=== PATIENT | female | born 1990 | race Caucasian/White ===

== ENCOUNTER 2025-02-27 17:00 | Emergency (ER) | payer MEDICAID, SELFPAY ==
[2025-02-27 17:07] VITALS: BP 138/98; BP 145/88; PULSE 53; PULSE 54; RESP 12; TEMP 36.9; O2SAT 100; BMI 28.0
[2025-02-27 17:13] VITALS: BP 145/88; PULSE 53; RESP 12; TEMP 36.9; O2SAT 100
--- NOTE | 2025-02-27 17:18 | PC.NURSE ---
34 F presents to ED after fentanyl overdose, found unconscious in care by pt. EMS arrived and pt woke up, did not need to be narcanned. Pt is sleepy but wakes up to verbal stimuli, A+OX4, calm and cooperative. RR even and unlabored. denies CP or SOB.
--- NOTE | 2025-02-27 17:20 | ECG_ITS ---
Test Reason : OVERDOSE Blood Pressure : */* mmHG Vent. Rate : 51 BPM Atrial Rate : 51 BPM P-R Int : 148 ms QRS Dur : 84 ms QT Int : 460 ms P-R-T Axes : 39 61 47 degrees QTcB Int : 423 ms Sinus bradycardia Otherwise normal ECG When compared with ECG of 08-Feb-2019 21:26, Vent. rate has decreased by 25 bpm Referred By: Jimmy Mai Electronically Signed By: MARIA A SLATER
--- NOTE | 2025-02-27 17:25 | PC.NURSE ---
Pt was checked for contraband and changed over by security, belongings placed in [place].
--- NOTE | 2025-02-27 17:33 | ED_ITS ---
HPI - Overdose General Chief Complaint: Overdose Stated Complaint: OVERDOSE Time Seen by Provider: 02/27/25 17:11 History of Present Illness ED Provider: heriberto HPI Narrative: 34 female with suspected opioid overdose. She was found and had received naloxone as outpatient. Patient when I evaluate her at approximately 18:42 awake alert oriented comfortable no complaints does acknowledge using injectable opioid from the street. No fever chills headache chest pain difficulty breathing abdominal pain nausea vomiting diarrhea or any other additional symptoms Related Data Allergies Allergy/AdvReac Type Severity Reaction Status Date / Time No Known Allergies Allergy Verified 02/27/25 17:11 [facility] Social History Social History Smoked in Last 30 Days: No Use of substances other than those prescribed or required for medical reasons: No Substance Use Type Other:: Fentanyl Substance Use Frequency: Daily Last Used Substance: Hours (ago) Any prior treatment program specific to substance use: No Advance Directives: No Advance Directives Information Provided: Yes Do you have a plan to hurt others: No Plan Patient : No Physical Exam 2 Exam: Exam: EXAM: Gen: Alert, awake, well appearing, well hydrated. Head: Atraumatic Eyes: Anicteric, Normal conjunctiva. ENT: Moist mucosa, no pallor. ? Neck: Supple. Skin: ?Warm skin with scarring Respiratory: Respiratory rate 18 Breathing comfortably, No distress.Clear to auscultation bilaterally, symmetric chest expansion, No wheeze, rales, ronchi. Cardiovascular: Regular rate and rhythm. No murmurs or rub. Well perfused periphery, warm extremities. No edema. ? Abdominal: No focal tenderness. Soft, no objective distension. No palpable masses or obvious organomegaly. ?No guarding, no rebound tenderness or other peritoneal findings. : No flank tenderness. Neuro: Alert. Gross movement of all extremities intact. ? Psych: Calm. Cooperative. MSK: No grossly visible deformity. Vital signs: See flowsheet Vital Signs: Vital Signs: Last Vital Signs Temp 98.2 F 02/27/25 19:24 Pulse 67 02/27/25 19:24 Resp 16 02/27/25 19:24 BP 96/64 02/27/25 19:24 Pulse Ox 97 02/27/25 19:24 O2 Del Method Room Air 02/27/25 19:24 BMI result Body Mass Index 28.0 Medical Decision Making Medical Decision Making MDM Narrative: Medical Decision Makin-year-old female with fentanyl overdose. Found unconscious but no evidence of trauma. No witnessed injuries fall syncope. It was not reported to me directly nor in triage note if naloxone was administered the patient was monitored however for several hours. No hypoxia no crackles in the lung no complaints of injury or pain. Comprehensive exam without findings to suggest injury. Patient provided naloxone offered substance use counseling patient desired to go home Preliminary Favored Differential Diagnosis: Opioid overdose, polysubstance use disorder, electrolyte derangement, less likely injury or syncope among additional considered etiologies Testing Interpreted Independently: ?See below for details Radiology or Lab testing Results Reviewed: ?See below for details Consults: ?See below for details Independent Historians/External Chart Reviews: ?See below for details Social Determinants of Health Impacting MDM/Planning: ?See below for details Lab Data MDM Lab Attestation statement: I reviewed the patient's lab results. 02/27/25 18:34 02/27/25 18:34 Labs: Lab Results 02/27/25 Range/Units 18:34 WBC 7.0 (4.8-10.8) X10*3/uL RBC 4.40 (4.20-5.50) X10*6/uL Hgb 11.4 L (12.0-16.0) g/dl Hct 33.6 L (37.0-47.0) % MCV 76.4 L (80.0-98.0) fL MCH 25.9 L (27.0-33.0) pg MCHC 33.9 (31.0-35.0) g/dl RDW 14.7 (11.0-16.0) % Plt Count 217 (160-400) X10*3/uL MPV 11.4 (9.4-12.3) fL Immature Gran % (Auto) 0.3 (0.0-0.4) % Neut % (Auto) 62.0 (45-73) % Lymph % (Auto) 30.7 (20-40) % [place] % (Auto) 4.6 (2-11) % Eos % (Auto) 1.7 (0-4) % Baso % (Auto) 0.7 (0-2) % Lymph # (Auto) 2.2 (1.2-4.9) X10*3/uL [place] # (Auto) 0.3 (0.1-1.2) X10*3/uL Eos # (Auto) 0.1 (0.0-0.4) X10*3/uL Baso # (Auto) 0.1 (0.0-0.2) X10*3/uL Abs Immat Gran (auto) 0.02 (0.00-0.03) X10*3/uL Absolute Neuts (auto) 4.4 (2.0-8.3) x10*3/uL Absolute Nucleated RBC 0.000 (0.0-0.012) X10*3/uL Nucleated RBC % (auto) 0.0 (0.0-0.2) /100WBC Sodium 138 (135-145) mmol/L Potassium 4.1 (3.3-5.1) mmol/L Chloride 106 (96-108) mmol/L Carbon Dioxide 22 (22-29) mmol/L Anion Gap 14 (12-20) BUN 12 (9-16) mg/dL Creatinine 0.76 (0.5-1.4) mg/dL Estim Creat Clear Calc 97.2 Estimated GFR > 60 Random Glucose 117 H (60-115) mg/dL Calcium 9.1 (8.4-10.2) mg/dL Total Bilirubin 0.3 (0.0-1.0) mg/dL AST 21 (5-31) U/L ALT 17 (0-31) U/L Alkaline Phosphatase 68 (39-117) U/L Total Protein 7.4 (6.5-8.0) g/dL Albumin 4.3 (3.5-5.0) g/dL Urine Opiates Screen POSITIVE H (Not Detect) Ur Buprenorphine Scrn Not Detected (Not Detect) ng/mL Ur Oxycodone Screen Not Detected (Not Detect) ng/mL Urine Methadone Screen Positive H (Not Detect) ng/mL Urine Fentanyl Screen POSITIVE H (Not Detect) Ur Barbiturates Screen Not Detected (Not Detect) Ur Phencyclidine Scrn Not Detected (Not Detect) Ur Amphetamines Screen POSITIVE H (Not Detect) U Benzodiazepines Scrn POSITIVE H (Not Detect) Urine Cocaine Screen POSITIVE H (Not Detect) U Marijuana (THC) Screen Not Detected (Not Detect) Independent Interpretation I performed an independent interpretation of an: EKG (Sinus bradycardia rate 51 QTC 423. No ischemic changes) Discharge Plan Discharge Clinical Impression: Drug overdose Patient Disposition: Home, Self-Care Instructions: Adult Overdose (ED) Additional Instructions: _ DISCHARGE DIAGNOSES: Opioid overdose HISTORY OF PRESENTATION: ?Opiate overdose EMERGENCY DEPARTMENT COURSE,TESTS, TREATMENTS: While in the ED today you were monitored in the emergency department and we are given naloxone DISCHARGE MEDICATIONS: As needed naloxone nasally FOLLOW-UP: ?Call your primary or general physician soon as possible to discuss your symptoms, your ED visit and to discuss follow up plans INSTRUCTIONS ?& RETURN PRECAUTIONS: If any symptoms change first call your primary physician, if it is after-hours your primary doctors office should have a provider communications designer you can speak with. If the symptoms are severe or very concerning to you then call 911 or return to the ED. Jimmy Mai MD Emergency Physician [facility] Referrals: [facility] [Provider Group] Interventions: ED Discharge Assessment Last Done: 02/27/25 19:24 Discharge Date/Time: 02/27/25 19:25 Print Language: Mongolian
[2025-02-27 17:41] VITALS: BP 133/74; PULSE 77; RESP 15; TEMP 36.9; O2SAT 100
[2025-02-27 18:00] VITALS: BP 125/85; PULSE 62; RESP 20; TEMP 36.8; O2SAT 100
[2025-02-27 18:37] LABS: MANUAL DIFF FLAG NO
[2025-02-27 18:39] LABS: Hematocrit 33.6 % (37.0-47.0); Hemoglobin 11.4 g/dl (12.0-16.0); Imm Gran Abs Auto 0.02 X10*3/uL (0.00-0.03); Imm Gran Pct Auto 0.3 % (0.0-0.4); Lymphocytes Absolute Auto 2.2 X10*3/uL (1.2-4.9); Mean Corpuscular HGB Conc 33.9 g/dl (31.0-35.0); Mean Corpuscular Hemoglobin 25.9 pg (27.0-33.0); Mean Corpuscular Volume 76.4 fL (80.0-98.0); NRBC Abs Auto 0.000 X10*3/uL (0.0-0.012); NRBC Pct Auto 0.0 /100WBC (0.0-0.2); Platelet Count 217 X10*3/uL (160-400); Red Blood Count 4.40 X10*6/uL (4.20-5.50); White Blood Count 7.0 X10*3/uL (4.8-10.8)
[2025-02-27 18:50] LABS: Cannabinoid Screen Urine Not Detected (Not Detect)
[2025-02-27 18:51] LABS: Alanine Aminotransferase 17 U/L (0-31); Albumin Level 4.3 g/dL (3.5-5.0); Alkaline Phosphatase 68 U/L (39-117); Anion Gap 14 (12-20); Aspartate Amino Transferase 21 U/L (5-31); Blood Urea Nitrogen 12 mg/dL (9-16); Calcium 9.1 mg/dL (8.4-10.2); Carbon Dioxide 22 mmol/L (22-29); Chloride 106 mmol/L (96-108); Creatinine Clr Calc Pharmacy 97.2; Estimated Glomerular Filt Rate > 60; Potassium 4.1 mmol/L (3.3-5.1); Sodium 138 mmol/L (135-145); Total Protein 7.4 g/dL (6.5-8.0)
[2025-02-27 19:23] VITALS: BP 96/64; PULSE 67; RESP 16; TEMP 36.8; O2SAT 97
[2025-02-27 19:24] VITALS: BP 96/64; PULSE 67; RESP 16; TEMP 36.8; O2SAT 97
== END 2025-02-27 19:25 | disposition home or self-care (01) ==
PROVIDERS: Emergency Provider Emergency Medicine
DX: T40.601A Poisoning by unspecified narcotics, accidental (unintentional), initial encounter (principal); R00.1 Bradycardia, unspecified; Y92.9 Unspecified place or not applicable; Z51.81 Encounter for therapeutic drug level monitoring; Z79.899 Other long term (current) drug therapy
CPT/HCPCS: 36415; 80053; 80307; 85025; 93005; 99284; 99285

== ENCOUNTER → 2025-02-27 17:20 | Outpatient (BNV) | payer MEDICAID, SELFPAY | PROVIDERS: Emergency Provider Emergency Medicine; Visit Provider Internal Medicine | DX: R00.1 Bradycardia, unspecified (principal) | CPT/HCPCS: 93010 ==

== ENCOUNTER 2025-04-02 12:53 | Inpatient (IN) | payer MEDICAID, SELFPAY ==
--- NOTE | ~2025-04-02 | XR_ITS ---
CLINICAL HISTORY: chest pain 1 view chest x-ray Comparison: None provided Findings: The lungs are clear. Heart size is normal. No acute fracture. IMPRESSION: 1. No acute findings. This document has been electronically signed by: Rodríguez Justice MD on 04/02/2025 18:40:40
--- NOTE | ~2025-04-02 | CT_ITS ---
CLINICAL HISTORY: swelling, ivdu, MRSA+ sepsis blood CT left forearm with contrast Comparison: CT - CT HAND LT W IV CON - 04/06/25 10:47 EDT Findings: No fracture or dislocation. No cortical destruction or periostitis to indicate osteomyelitis. No osseous lesion. The joint spaces are preserved without osteophytosis. There is no joint effusion. There is a partially visualized rim enhancing fluid collection in the antecubital fossa measuring 3.4 x 3.3 cm. There is skin thickening in infiltration of the subcutaneous fat with fluid tracking along the fascial planes. Rim enhancing fluid collections of the dorsal aspect of the wrist are again seen. No soft tissue gas. The musculature is edematous. No muscular atrophy. Unremarkable vasculature. Impression: No CT evidence of osteomyelitis. Partially visualized abscess in the antecubital fossa measuring 3.4 cm. Redemonstrated rim enhancing fluid collections of the dorsal aspect of the wrist favored to be bacterial tenosynovitis. This document has been electronically signed by: Jennifer Landin MD on 04/06/2025 14:06:59
--- NOTE | ~2025-04-02 | CT_ITS ---
CLINICAL HISTORY: swelling, ivdu, MRSA+ sepsis blood CT right upper arm with contrast Comparison: None available Findings: No fracture or dislocation. No cortical destruction or periostitis to indicate osteomyelitis. No osseous lesion. The joint spaces are preserved without osteophytosis. There is no joint effusion. The musculature is edematous. In the biceps brachii muscle there is question a rim enhancing low attenuating lesion measuring 1.7 x 2.9 x 8.5 cm ( series 35 images 50 through 67). The surrounding musculature is markedly decreased in attenuation ( measuring 11 Hounsfield units versus 54 Hounsfield units at the triceps muscle. There is skin thickening and infiltration of the subcutaneous fat with fluid tracking along the fascial planes. Normal vasculature. Associated lymphadenopathy, partially visualized. Impression: Phlegmon/developing abscess within the biceps muscle measuring 2.9 cm. Focal necrosis may also be considered; there is marked decreased attenuation of the biceps musculature which could be secondary to severe myositis or fasciitis with necrosis. No soft tissue gas. Further evaluation with MR of the humerus with and without contrast may be helpful. No CT evidence of osteomyelitis. This document has been electronically signed by: Jennifer Landin MD on 04/06/2025 14:18:43
--- NOTE | ~2025-04-02 | XR_ITS ---
EXAMINATION: XR ELBOW, RIGHT CLINICAL INFORMATION: pain, decreased ROM COMPARISON: None available. TECHNIQUE: AP and lateral views of the right elbow. FINDINGS: No acute cortical disruption. Normal alignment. No lytic or blastic lesions. No subcutaneous emphysema. No gross joint effusion. No metallic or radiopaque foreign body. XR/XR elbow RT 2V IMPRESSION: No acute fracture or dislocation. Electronically signed by: Mak Hale MD 04/02/2025 03:01 PM EDT
--- NOTE | ~2025-04-02 | CT_ITS ---
CLINICAL HISTORY: Necrotising fascitis rule out --- Additional Notes or Special Instructions: Scan shoulder to hand CT angiography right upper extremity contrast. 3D Postprocessing. Comparison: None provided Findings: Visualized right subclavian, axillary, brachial and proximal radioulnar arteries are patent. Distal forearm and hand arteries are not well visualized secondary to streak artifact Right axillary lymphadenopathy, likely reactive. Subpleural 9 mm pulmonary nodule in the medial right apex. 2 mm subpleural nodule right middle lobe. 6 mm nodule subpleural right lower lobe. Consider CT at 3 months, PET-CT, or tissue sampling. Hepatic steatosis noted. The bones are intact. Extensively diffuse skin thickening with subcutaneous edema and fluid reticulation and stranding tracking throughout the upper extremity pronounced of the elbow. There is diffuse intramuscular edema throughout the upper extremity as well. Intramuscular edema along the pectoralis major. There is a more discrete circumferential developing fluid collection along the anterior shoulder given morphology, difficult to measure however for example along the posterolateral aspect measuring 1.5 cm axial image 21 of series 7. Developing abscess is suspected. No soft tissue gas identified. IMPRESSION: 1. Right upper extremity runoff within the visualized arteries. 2. Extensive myositis, cellulitis and developing ill-defined abscess of the level of the shoulder, please see above. 3. Reactive right axillary adenopathy. 4. No evidence of necrotizing fasciitis at this time. 5. Right-sided pulmonary nodules, please see above. This document has been electronically signed by: Rodríguez Justice MD on 04/02/2025 21:38:11
--- NOTE | ~2025-04-02 | CT_ITS ---
CLINICAL HISTORY: swelling, ivdu, MRSA+ sepsis blood CT left hand with contrast Comparison: None available Findings: No fracture or dislocation. No cortical destruction or periostitis to indicate osteomyelitis. No osseous lesion. The joint spaces are preserved without osteophytosis. There is no joint effusion. There are 2 adjacent rim enhancing fluid collections measuring 0.6 x 0.5 x 1.7 cm ( series 14, image 170 and series 13, image 49 ) and measuring 0.6 x 0.4 x 1.3 cm ( series 14, image 176 and series 13, image 40 ) at the dorsal /ulnar aspectof the wrist which appear to be in continuity with the extensor tendons. There is skin thickening and infiltration of the subcutaneous fat. No muscular atrophy. There is edema within the musculature. Unremarkable vasculature. Impression: No CT evidence of osteomyelitis. Rim enhancing fluid collections measuring 1.7 and 1.3 cm of the dorsal/ulnar aspect of the wrist which appear to be in continuity with the extensor tendons. This is concerning for infectious extensor tenosynovitis. This can be further evaluated with MR with and without contrast. This document has been electronically signed by: Jennifer Landin MD on 04/06/2025 13:53:50
--- NOTE | ~2025-04-02 | CT_ITS ---
CLINICAL HISTORY: swelling, ivdu, MRSA+ sepsis blood - postop I D CT right shoulder with contrast Comparison: CT/SR - CT ANGIO UE RT - 04/02/25 20:11 EDT Findings: No fracture or dislocation. No cortical destruction or periostitis to indicate osteomyelitis. No osseous lesion. The joint spaces are preserved without osteophytosis. There is no joint effusion. There is no fluid collection. The musculature is edematous. No muscular atrophy. Unremarkable vasculature. There is skin thickening and infiltration of the subcutaneous fat which is slightly which is similar to the prior studies. Fluid tracks along the fascial planes, greater than on the prior study, currently measuring up to 1.6 cm in thickness and previously measuring up to 0.8 cm in thickness. There is no soft tissue gas. Associated lymphadenopathy measures up to 1.7 cm in short axis, previously 1.5 cm. Right upper lobe nodule measuring 1.0 cm, Previously 0.9 cm. Impression: No CT evidence of osteomyelitis or septic arthritis. No drainable fluid collection. Cellulitis, myositis and fasciitis. Fluid tracking along the fascial planes is greater than on the prior study and may indicate worsening. No soft tissue gas to indicate necrotizing fasciitis. Associated lymphadenopathy, greater than on the prior study. 1.0 cm nodule in the right upper lobe. Given the history consider septic emboli. This document has been electronically signed by: Jennifer Landin MD on 04/06/2025 13:47:06
[2025-04-02 13:06] VITALS: BP 146/77; PULSE 104; RESP 16; TEMP 36.8; O2SAT 100; BMI 25.3
--- NOTE | 2025-04-02 13:44 | ED.EXTPRO ---
HPI - Extremity Problem General Chief complaint: Extremity Injury, Upper Stated complaint: arm pain, swelling after injection Time Seen by Provider: 04/02/25 17:00 Source: patient Mode of arrival: ambulatory Limitations: no limitations History of Present Illness ED Provider: Dr. Damian [facility] Narrative: This is a 34-year-old female history of IV drug use cocaine, opioid dependency on methadone presented hospital today for right upper extremity pain. Patient stated that this has been going on for the past 3 days. Patient's injected cocaine into her right arm and this occurred shortly afterward. Patient stated she did get blood return when she inject her cook This has been increasingly swollen. It is tender to the touch. She does have jump drainage in the AC area. Denies any fever. Patient states his pain radiates to her shoulder and into her chest. Related Data Allergies Allergy/AdvReac Type Severity Reaction Status Date / Time No Known Allergies Allergy Verified 04/02/25 13:13 Review of Systems Review of Systems: Pertinent review of systems as mentioned in HPI. All other system otherwise negative. [facility] Past Medical History [facility] Narrative: Medical history as mentioned in [facility] Social History Social History Smoked in Last 30 Days: Yes Use of substances other than those prescribed or required for medical reasons: Yes Substance Use Type: Crack/Cocaine, Heroin and Marijuana Advance Directives: No Advance Directives Information Provided: No Do you have a plan to hurt others: No Plan Patient : No Physical Exam Exam: Exam: General: Pleasant, no distress, interacting appropriately Head: Normacephalic, atraumatic ENT: oral mucosa moist, neck supple, no tracheal deviation Cardiovascular: Tachycardic rate, regular rhythm, no murmurs, rubbing, gallops Respiratory: CTAB, no wheeze, rales, rhonchi Gastrointestinal: Soft, non distended, non tender, non guarding Extremities: Patient does have swelling of the right arm diffusely, unable to flex or extend her right elbow, patient unable to move her right shoulder due to the swelling and pain. Does have drainage of the AC. I was able to obtain he arterial pulse via ultrasound Doppler. I do not think she has ischemic of the right extremity She does have drainage on the right medial AC Neurological: Awake and alert, no facial droop noted Skin: Warm and dry Psychiatric: Appropriate mood and thoughts Vital Signs: Vital Signs: Last Vital Signs Temp 98.9 F 04/02/25 20:10 Pulse 104 H 04/02/25 20:35 Resp 20 04/02/25 20:35 BP 146/96 H 04/02/25 20:35 Pulse Ox 100 04/02/25 20:35 O2 Del Method Room Air 04/02/25 20:35 BMI result Body Mass Index 25.3 Course Course Course Narrative: This is an RME: Additional HPI, ROS, PE not included below will be deferred to primary provider. RME assessment and note performed by: Mayra Turpin PA-C This is a 34-year-old female, hx of IVDA on methadone, who presents emergency department with concerns of right arm pain. HX of IVDA, injected cocaine in her right upper arm. Right upper arm very indurated, warm. Difficulty with ROM of the right elbow. No fevers. Pt tearful. Notified charge nurse of patient. Will obtain labs, further ER eval needed Medications Administered Generic Name Dose Route Start Last Admin Trade Name Freq PRN Reason Stop Dose Admin Lactated Ringer's 1,000 mls @ 999 mls/hr 04/02/25 22:30 04/02/25 22:39 Lr IV 04/02/25 23:30 999 mls/hr .Q1H1M HANNAH Administration Discontinued Medications Generic Name Dose Route Start Last Admin Trade Name Freq PRN Reason Stop Dose Admin Sodium Chloride 1,000 mls @ 999 mls/hr 04/02/25 17:15 04/02/25 20:09 Ns IV 04/02/25 18:15 Infused .Q1H1M HANNAH Infusion Vancomycin HCl 1,500 mg/ 500 mls @ 333.333 mls/hr 04/02/25 17:41 04/02/25 20:09 Sodium Chloride IV 04/02/25 19:10 Infused ONCE ONE Infusion Piperacillin Sod/Tazobactam 100 mls @ 200 mls/hr 04/02/25 17:42 04/02/25 18:30 Sod 4.5 gm/ Sodium Chloride IV 04/02/25 18:11 Infused ONCE ONE Infusion Iohexol 100 ml 04/02/25 20:24 04/02/25 20:24 Iohexol 350 Mg/Ml 100 Ml Infus..Btl IV 04/02/25 20:25 85 ml ONCE ONE Administration Ketorolac Tromethamine 15 mg 04/02/25 17:15 04/02/25 17:59 Ketorolac Tromethamine 15 Mg/Ml Vial IVPUSH 04/02/25 17:16 15 mg ONCE ONE Administration Morphine Sulfate 4 mg 04/02/25 17:15 04/02/25 17:59 Morphine Sulfate 4 Mg/Ml Cartridge IVPUSH 04/02/25 17:16 4 mg ONCE ONE Administration Protocol Medical Decision Making Medical Decision Making [facility] Narrative: 34-year-old female history of IV drug use via cocaine, opioid dependency on methadone presented hospital today for a right upper extremity swelling and pain. Concern for cellulitis. I did perform a bedside ultrasound did not identify any pockets of pus for drainage. No sign of pus of right elbow. I have no concern for ischemic right upper extremity for the patient however we will plan to obtain a CT imaging to rule out necrotizing fasciitis. Sepsis lab work will be obtained including CBC blood culture chemistry. Lactic acid. We will plan to cover patient with broad-spectrum antibiotic including the IV vancomycin IV Zosyn. Patient's lab work did not show any signs of leukocytosis however she does have 41% bands. Sepsis was called for the patient. I did initiate broad-spectrum antibiotic already for the patient. Patient did have slight elevation of lactic acid at 2.7. Repeat one is 1.8. Patient's CT imaging shows extensive myositis and cellulitis. And possible developing abscess. No sign of necrotizing fasciitis. We will plan to admit the patient for this at this time. She will require closer monitoring. She had signs of sepsis at this time as well. She will require IV antibiotic. Differential Diagnosis Differential Diagnoses: The differential diagnosis associated with the presentation includes Cellulitis, abscess, septic joint, necrotizing fasciitis Lab Data [facility] Lab Attestation statement: I reviewed the patient's lab results. 04/02/25 17:50 04/02/25 17:50 Labs: Lab Results 04/02/25 04/02/25 Range/Units 17:50 20:34 WBC 5.4 (4.8-10.8) X10*3/uL RBC 4.76 (4.20-5.50) X10*6/uL Hgb 12.0 (12.0-16.0) g/dl Hct 35.4 L (37.0-47.0) % MCV 74.4 L (80.0-98.0) fL MCH 25.2 L (27.0-33.0) pg MCHC 33.9 (31.0-35.0) g/dl RDW 14.7 (11.0-16.0) % Plt Count 296 D (160-400) X10*3/uL MPV 10.9 (9.4-12.3) fL Immature Gran % (Auto) Cancelled Neut % (Auto) Cancelled Lymph % (Auto) Cancelled [place] % (Auto) Cancelled Eos % (Auto) Cancelled Baso % (Auto) Cancelled Lymph # (Auto) Cancelled [place] # (Auto) Cancelled Eos # (Auto) Cancelled Baso # (Auto) Cancelled Abs Immat Gran (auto) Cancelled Absolute Neuts (auto) Cancelled Absolute Nucleated RBC 0.000 (0.0-0.012) X10*3/uL Nucleated RBC % (auto) 0.0 (0.0-0.2) /100WBC Neutrophils % (Manual) 24 L (45-73) % Band Neutrophils % 41 H (3-5) % Lymphocytes % (Manual) 20 (20-40) % Atypical Lymphs % (Man) 2 (0-6) % Monocytes % (Manual) 11 (2-11) % Eosinophils % (Manual) 2 (0-4) % Abs Neuts (Manual) 3.5 (2.0-8.3) X10*3/uL Lymphocytes # (Manual) 1.1 L (1.2-4.9) X10*3/uL Atyp Lymphs # (Manual) 0.1 x10*3/uL Monocytes # (Manual) 0.6 (0.1-1.2) X10*3/uL Eosinophils # (Manual) 0.1 (0.0-0.4) X10*3/uL [place] Cells PRESENT Toxic Vacuolation PRESENT Platelet Estimate NORMAL (NORMAL) Large Platelets PRESENT Plt Morphology Comment NORMAL RBC Morphology NOTED Microcytosis 1+ (5-14) /OIF [place] Cells 2+ (3-5) /OIF Schistocytes 1+ (0-2) /OIF ESR 69 H (0-20) MM/HR Sodium 132 L (135-145) mmol/L Potassium 3.3 (3.3-5.1) mmol/L Chloride 98 (96-108) mmol/L Carbon Dioxide 23 (22-29) mmol/L Anion Gap 14 (12-20) BUN 20 H (9-16) mg/dL Creatinine 0.93 (0.5-1.4) mg/dL Estim Creat Clear Calc 75.7 Estimated GFR > 60 Random Glucose 107 (60-115) mg/dL Lactic Acid 2.7 H* (0.5-2.0) mmol/L Lactic Acid F/U @ 2Hr 1.8 (0.5-2.0) mmol/L Calcium 9.6 (8.4-10.2) mg/dL Magnesium 1.9 (1.6-2.6) mg/dL Total Bilirubin 0.4 (0.0-1.0) mg/dL Direct Bilirubin 0.2 (0.0-0.5) mg/dL AST 19 (5-31) U/L ALT 13 (0-31) U/L Alkaline Phosphatase 81 (39-117) U/L C-Reactive Protein 46.98 H (< or = 0.50) mg/dL Total Protein 7.1 (6.5-8.0) g/dL Albumin 3.8 (3.5-5.0) g/dL Beta HCG, Quant < 2 mIU/mL Independent Interpretation I performed an independent interpretation of an: Plain X-Ray and CT Scan Radiology Impression Discussion of test interpretation with radiology: I have reviewed the radiologist's reading. Critical Care Time Critical Care Time Critical Care Time: Yes Total Critical Care Time: 40 Attestation: Time is exclusive of separately billable procedures. Time includes: direct patient care, patient reassessment, coordination of patient care, interpretation of data (laboratory data, pulse oximetry, arterial blood gases and chest xrays), review of patient's medical records, medical consultation and documentation of patient care. Procedures excluded from critical care time: central intravenous line placement and electrocardiography. Discharge Plan Discharge Clinical Impression: Cellulitis, Myositis, Sepsis Patient Disposition: Admitted As Inpatient Print Language: Citizen Of [place]
--- NOTE | 2025-04-02 17:39 | PC.NURSE ---
Pt very hard IV stick. Ultrasound IV attempts being made now.
[2025-04-02 18:04] LABS: Hematocrit 35.4 % (37.0-47.0); Hemoglobin 12.0 g/dl (12.0-16.0); Mean Corpuscular HGB Conc 33.9 g/dl (31.0-35.0); Mean Corpuscular Hemoglobin 25.2 pg (27.0-33.0); Mean Corpuscular Volume 74.4 fL (80.0-98.0); NRBC Abs Auto 0.000 X10*3/uL (0.0-0.012); NRBC Pct Auto 0.0 /100WBC (0.0-0.2); Platelet Count 296 X10*3/uL (160-400); Red Blood Count 4.76 X10*6/uL (4.20-5.50)
[2025-04-02 18:19] VITALS: BP 150/84; PULSE 105; RESP 18; TEMP 37.2; O2SAT 98
[2025-04-02 18:19] LABS: Alanine Aminotransferase 13 U/L (0-31); Albumin Level 3.8 g/dL (3.5-5.0); Alkaline Phosphatase 81 U/L (39-117); Anion Gap 14 (12-20); Aspartate Amino Transferase 19 U/L (5-31); Blood Urea Nitrogen 20 mg/dL (9-16); Calcium 9.6 mg/dL (8.4-10.2); Carbon Dioxide 23 mmol/L (22-29); Chloride 98 mmol/L (96-108); Creatinine Clr Calc Pharmacy 75.7; Estimated Glomerular Filt Rate > 60; Magnesium 1.9 mg/dL (1.6-2.6); Potassium 3.3 mmol/L (3.3-5.1); Sodium 132 mmol/L (135-145); Total Protein 7.1 g/dL (6.5-8.0)
[2025-04-02 18:41] LABS: WBC ABN SCTR FOR CBC 1
[2025-04-02 18:54] LABS: Neutrophils Percent Manual 24 % (45-73)
[2025-04-02 18:57] LABS: Atypical Lymphs Percent Manual 2 % (0-6); Band Neutrophils Percent 41 % (3-5); Eosinophils Percent Manual 2 % (0-4); Lymphocytes Percent Manual 20 % (20-40); Monocytes Percent Manual 11 % (2-11)
[2025-04-02 18:58] LABS: Large Platelet PRESENT; Microcytosis 1+ (5-14) /OIF; RBC Morphology NOTED
[2025-04-02 18:59] LABS: Burr Cells 2+ (3-5) /OIF; Schistocytes 1+ (0-2) /OIF; Smudge Cells PRESENT; Toxic Vacuolation PRESENT
[2025-04-02 19:00] LABS: Atypical Lymph Absolute Manual 0.1 x10*3/uL; Eosinophils Absolute Manual 0.1 X10*3/uL (0.0-0.4); Lymphocytes Absolute Manual 1.1 X10*3/uL (1.2-4.9); Monocytes Absolute Manual 0.6 X10*3/uL (0.1-1.2); Neutrophils Absolute Manual 3.5 X10*3/uL (2.0-8.3); White Blood Count 5.4 X10*3/uL (4.8-10.8)
--- NOTE | 2025-04-02 19:00 | PC.NURSE ---
Assumed care of pt presents with right arm swelling after IV drug use, pt aaox4, nad, pending admission and CT scan
[2025-04-02 19:57] LABS: Reflex Lactate? Lactic Acid Added
[2025-04-02 20:10] VITALS: BP 149/92; PULSE 101; RESP 18; TEMP 37.2; O2SAT 98
[2025-04-02] MEDS: iohexoL 350 MG/ML 100 ML INFUS..BTL IV (20:24)
[2025-04-02 20:35] VITALS: BP 146/96; PULSE 104; RESP 20; O2SAT 100
[2025-04-02 20:56] LABS: ~Lactic Acid-LAB USE ONLY 1.8 mmol/L (0.5-2.0)
[2025-04-02] MEDS: Lactated Ringers 1,000 ML 999 ML IV (22:39)
--- NOTE | 2025-04-02 23:05 | P.HPHOSP_ITS ---
History of Present Illness Date of Service: 04/02/25 Attending physician on admission: Leila Cruz Chief Complaint: Right arm infection Pt is a 34 yo female with PMH IVDA last 15 years with family hx (mother, father and twin sister passed from endocarditis), overdose 2 years prior received narcan (no cardiac or respiratory arrest), UTE on methadone, tobacco dependence, , xylozene infection L forearm, depression/ anxiety uses xanax and clonidine off the street presents to the hospital after being prompted by her BF to be seen for noted enlargement in right upper arm, with redness and pt now not able to lift or move arm. Pt states she last injected cocaine yesterday. Pt denies any current chills, fever, but is having significant heartburn. Pt states she needs help with her drug use. Pt states she is scared. Patient currently denies any SI, HI or hallucinations. Patient currently denies any marijuana use or alcohol use. Work up in the ED included XR of left elbow, negative for dislocaiton or fracture and CTA of RUE that notes: 1. Right upper extremity runoff within the visualized arteries. 2. Extensive myositis, cellulitis and developing ill-defined abscess of the level of the shoulder, please see above. 3. Reactive right axillary adenopathy. 4. No evidence of necrotizing fasciitis at this time. Patient does meet the criteria for sepsis on admission tachycardia, lactic acidosis, bandemia with leukocytosis. CXR negative for acute findings. Pt started on Vanco and Zosyn and received fluid resuscitation per sepsis protocol at 30 mls/KG. Pain management continues with toradol, morphine and tylenol prn. Patient did take her normal methadone dose earlier in the day. Patient receives her methadone from [facility]. Review of Systems 2 Review of Systems: Patient currently denies any chest pain, shortness of breath at rest or with exertion. Patient is reporting significant heartburn. Patient denies any nausea or vomiting. Patient is not having any abdominal pain. Patient denies injecting medications or drugs into any other area except for the right AC. Patient currently denies any SI, HI or hallucinations. [facility] Medical History Toxic effect of xylazine History of drug overdose Depression Anxiety IV drug abuse Substance use disorder Cognitive capacity: Alert and orientated x3 Functional capacity: independent ambulation Patient : No (HCT in less than 2) Pertinent family history: Mother and father both alive with history of substance use disorder and IV drug abuse. Father currently uses. Patient lost twin sister to endocarditis secondary to IV drug abuse. Surgical History History of tonsillectomy and adenoidectomy Hx of section Social History Substance Use Type: Crack/Cocaine, Heroin and Marijuana Ebola Risk: Travel/Contact With Anyone From Affected Area/s: No Has Patient Experienced Ebola Symptoms: No Meds Allergies Allergy/AdvReac Type Severity Reaction Status Date / Time No Known Allergies Allergy Verified 04/02/25 13:13 Active Medications: Current Medications Acetaminophen (Acetaminophen 325 Mg Tablet) 650 mg PO Q6H PRN PRN Reason: Pain, Mild 1-3,fever,headache Albuterol/Ipratropium (Albuterol/Iprat 2.5/0.5mg 3 Ml Ampul.Neb) 3 ml INHALE Q4H PRN PRN Reason: Shortness of Breath/Wheezing Calcium Carbonate (Calcium Carbonate 750 Mg Tab.Chew) 750 mg PO Q4H PRN PRN Reason: Heartburn Enoxaparin Sodium (Enoxaparin Sodium 40 Mg/0.4 Ml Syringe) 40 mg SUBCUT Q24H [facility] Lactated Ringer's (Lr) 1,000 mls @ 999 mls/hr IV .Q1H1M [facility] Stop: 04/02/25 23:30 Last Admin: 04/02/25 22:39 Dose: 999 mls/hr Lactated Ringer's (Lr) 1,000 mls @ 100 mls/hr IVCONT .Q10H [facility] Magnesium Hydroxide (Milk Of Magnesia 30 Ml Oral.Susp) 30 ml PO DAILY PRN PRN Reason: Constipation Melatonin (Melatonin 3 Mg Tablet) 6 mg PO BEDTIME PRN PRN Reason: Insomnia Ondansetron HCl (Ondansetron Hcl 4 Mg/2 Ml Vial) 4 mg IVPUSH Q8H PRN PRN Reason: Nausea and Vomiting Polyethylene Glycol (Polyethylene Glycol 3350 17 Gm Powd.Pack) 17 gm PO DAILY PRN PRN Reason: Constipation Sodium Chloride (0.9 % Sodium Chloride Flush 3 Ml Syringe) 3 ml IVFLUSH QSHIFT [facility] Physical Exam 2 Vital Signs and Narrative: Vital Signs: Last Vital Signs Temp 98.9 F 04/02/25 20:10 Pulse 104 H 04/02/25 20:35 Resp 20 04/02/25 20:35 BP 146/96 H 04/02/25 20:35 Pulse Ox 100 04/02/25 20:35 O2 Del Method Room Air 04/02/25 20:35 BMI result Body Mass Index 25.3 Alert and orientated X3, able to give good history. Anxious Neuro: CN II-X11 intact, visual acuity intact EYES: PERRLA, EOM intact, sclerae nonicteric, conjunctiva pink ENT: hearing intact, no issues with swallowing, uvula midline, lips moist, nares patent no epistaxis Cardiac: S1 S2 RRR tachycardic, no murmur, no JVD, no edema in Lower ext Pulmonary: lungs diminished bilaterally Abdominal: BS active in all 4 quadrants, no guarding, tenderness, rebounding MSK: strength 5/5 L upper and lower extremities, patient unable to move right upper extremity due to profound swelling that is start to the AC area up to the shoulder joint. : no CVA tenderness no bladder distension Extremities: no edema in lower extremities, PT and DP pulses palpable +2 Psych: mood anxious, judgement and insight good Skin: Notable warmth and redness with swelling from the AC of the right arm to the shoulder area. Patient has no active range of motion and can not tolerate passive range of motion. Pulses are intact in the right lower extremity as well as sensation. Results Labs 04/02/25 17:50 04/02/25 17:50 Labs: Laboratory Results - last 24 hr 04/02/25 04/02/25 17:50 20:34 MCV 74.4 L MCH 25.2 L MCHC 33.9 RDW 14.7 Plt Count 296 D MPV 10.9 Immature Gran % (Auto) Cancelled Neut % (Auto) Cancelled Lymph % (Auto) Cancelled Harney % (Auto) Cancelled Eos % (Auto) Cancelled Baso % (Auto) Cancelled Lymph # (Auto) Cancelled Harney # (Auto) Cancelled Eos # (Auto) Cancelled Baso # (Auto) Cancelled Abs Immat Gran (auto) Cancelled Absolute Neuts (auto) Cancelled Absolute Nucleated RBC 0.000 Nucleated RBC % (auto) 0.0 Neutrophils % (Manual) 24 L Band Neutrophils % 41 H Lymphocytes % (Manual) 20 Atypical Lymphs % (Man) 2 Monocytes % (Manual) 11 Eosinophils % (Manual) 2 Abs Neuts (Manual) 3.5 Lymphocytes # (Manual) 1.1 L Atyp Lymphs # (Manual) 0.1 Monocytes # (Manual) 0.6 Eosinophils # (Manual) 0.1 Smudge Cells PRESENT Toxic Vacuolation PRESENT Platelet Estimate NORMAL Large Platelets PRESENT Plt Morphology Comment NORMAL RBC Morphology NOTED Microcytosis 1+ (5-14) Glenn Cells 2+ (3-5) Schistocytes 1+ (0-2) ESR 69 H Anion Gap 14 Estim Creat Clear Calc 75.7 Estimated GFR > 60 Random Glucose 107 Lactic Acid 2.7 H* Lactic Acid F/U @ 2Hr 1.8 Calcium 9.6 Magnesium 1.9 Total Bilirubin 0.4 Direct Bilirubin 0.2 AST 19 ALT 13 Alkaline Phosphatase 81 C-Reactive Protein 46.98 H Total Protein 7.1 Albumin 3.8 Beta HCG, Quant < 2 ECG Attestation: I personally reviewed and interpreted this ECG as follows: Prior ECG tracings: not available for review Imaging Radiologist's Impressions: Impressions Elbow X-Ray 04/02/25 14:57 IMPRESSION: No acute fracture or dislocation. Electronically signed by: Mak Hale MD 04/02/2025 03:01 PM EDT RUE CTA MPRESSION: 1. Right upper extremity runoff within the visualized arteries. 2. Extensive myositis, cellulitis and developing ill-defined abscess of the level of the shoulder, please see above. 3. Reactive right axillary adenopathy. 4. No evidence of necrotizing fasciitis at this time. 5. Right-sided pulmonary nodules, please see above. CXR Findings: The lungs are clear. Heart size is normal. No acute fracture. IMPRESSION: 1. No acute findings. Assessment and Plan (1) Cellulitis: Qualifiers: Laterality: right Site of cellulitis: extremity Site of cellulitis of extremity: upper extremity Qualified Code(s): L03.113 - Cellulitis of right upper limb Status: Acute (2) Sepsis: Qualifiers: Sepsis acute organ dysfunction status: with acute organ dysfunction S epsis type: sepsis due to unspecified organism Severe sepsis acute organ dysfunction type: unspecified Severe sepsis shock status: without septic shock Qualified Code(s): A41.9 - Sepsis, unspecified organism; R65.20 - Severe sepsis without septic shock Status: Acute (3) Myositis: Qualifiers: Laterality: right Myositis location: shoulder Myositis type: infective Qualified Code(s): M60.011 - Infective myositis, right shoulder Status: Acute Plan Pt is a 34 yo female with PMH IVDA last 15 years with family hx (mother, father and twin sister passed from endocarditis), overdose 2 years prior received narcan (no cardiac or respiratory arrest), UTE on methadone, tobacco dependence, , xylozene infection L forearm, depression/ anxiety uses xanax and clonidine off the street presents to the hospital after being prompted by her BF to be seen for noted enlargement in right upper arm, with redness and pt now not able to lift or move arm. Pt states she last injected cocaine yesterday. HCG negative on admission. Sepsis secondary to cellulitis and formation of abscess internally towards the right shoulder area from IV drug abuse Patient is started on Zosyn and vanco Patient met criteria for sepsis noting bandemia 41, lactic acid 2.7 down to 1.8 after IV fluids, tachycardia ESR and CRP both elevated Patient received fluid resuscitation per protocol, 30 mL/kilogram we will continue to receive an hourly rate CT of the right upper extremity confirms cellulitis with extensive myositis and developing ill-defined abscess at the level of the shoulder with reactive right axillary adenopathy No evidence of necrotizing fasciitis on CT scan General surgery consulted Infectious disease consulted Blood cultures pending UA pending Echo pending to rule out endocarditis, low suspicion for this on admission Myositis Continue IV antibiotics as above Continue IV fluids General surgery consultation in place as patient may require surgical drainage and opening of the upper right extremity Elevating arm and applying ice as tolerated, ice will not be applied directly to the skin Neurovascular checks ordered of right upper extremity Mild hyponatremia Sodium 132 Trend BMP GERD Protonix b.i.d. Milk of magnesia Monitor H&H Patient does not use alcohol UTE Patient normally on methadone 130 mg per day, confirmation pending Patient did take her methadone today 04/02/2025 Patient requesting help for her drug use with significant family history including mother, father and twin sister who of endocarditis related to IV drug abuse Cows ordered Valium p.r.n. (patient uses street Xanax and clonidine) Addictions consulted Depression/anxiety Chronic in nature without help in the community At this time patient defers psychiatric consultation Patient denies any SI, HI or hallucinations No 1-1 indicated at this time Valium PRN DVT prophylaxis: On hold in case patient requires surgical procedure in the a.m. Med rec pending Full code status Quality Stroke Does the patient have a stroke diagnosis?: No Reason for No Anti-thrombotic by Day Two: Contraindicated VTE Prior VTE?: No VTE Risk Level:: Medical - moderate - high VTE Device Contraindication: N/A - Device Ordered VTE Drug Contraindication: N/A - Med Ordered
[2025-04-02] MEDS: Lactated Ringers 1,000 ML 100 ML IVCONT (23:55)
[2025-04-03] VITALS (18 sets, daily range): BP systolic 133–163; BP diastolic 75–105; PULSE 90–112; RESP 14–25; TEMP 36.7–37.6; O2SAT 96–99; BMI 27.8
[2025-04-03 05:36] LABS: Hematocrit 30.9 % (37.0-47.0); Hemoglobin 10.4 g/dl (12.0-16.0); Mean Corpuscular HGB Conc 33.7 g/dl (31.0-35.0); Mean Corpuscular Hemoglobin 24.9 pg (27.0-33.0); Mean Corpuscular Volume 74.1 fL (80.0-98.0); NRBC Abs Auto 0.000 X10*3/uL (0.0-0.012); NRBC Pct Auto 0.0 /100WBC (0.0-0.2); Platelet Count 270 X10*3/uL (160-400); Red Blood Count 4.17 X10*6/uL (4.20-5.50)
[2025-04-03 05:39] LABS: WBC ABN SCTR FOR CBC 1; White Blood Count 2.8 X10*3/uL (4.8-10.8)
[2025-04-03 06:04] LABS: Alanine Aminotransferase 6 U/L (0-31); Albumin Level 2.6 g/dL (3.5-5.0); Alkaline Phosphatase 65 U/L (39-117); Anion Gap 14 (12-20); Aspartate Amino Transferase 43 U/L (5-31); Blood Urea Nitrogen 12 mg/dL (9-16); Calcium 8.2 mg/dL (8.4-10.2); Carbon Dioxide 20 mmol/L (22-29); Chloride 103 mmol/L (96-108); Creatinine Clr Calc Pharmacy 111.8; Estimated Glomerular Filt Rate > 60; Potassium 4.6 mmol/L (3.3-5.1); Sodium 132 mmol/L (135-145); Total Protein 5.9 g/dL (6.5-8.0)
[2025-04-03 06:06] LABS: Atypical Lymph Absolute Manual 0.1 x10*3/uL; Atypical Lymphs Percent Manual 2 % (0-6); Band Neutrophils Percent 32 % (3-5); Basophils Percent Manual 1 % (0-2); Eosinophils Absolute Manual 0.1 X10*3/uL (0.0-0.4); Eosinophils Percent Manual 3 % (0-4); Lymphocytes Absolute Manual 0.4 X10*3/uL (1.2-4.9); Lymphocytes Percent Manual 14 % (20-40); Monocytes Absolute Manual 0.3 X10*3/uL (0.1-1.2); Monocytes Percent Manual 12 % (2-11); Neutrophils Absolute Manual 1.9 X10*3/uL (2.0-8.3); Neutrophils Percent Manual 36 % (45-73)
[2025-04-03 06:07] LABS: Large Platelet PRESENT; Ovalocytes 1+ (5-14) /OIF; RBC Morphology NOTED
[2025-04-03 06:08] LABS: Burr Cells 3+ (>5) /OIF; Toxic Vacuolation PRESENT
--- NOTE | 2025-04-03 07:00 | CA_ITS ---
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 The calculated ejection fraction is 61% by biplane method. - No obvious valvular pathology seen on this study. Findings Left Ventricle Normal left ventricular cavity size. There is normal left ventricular wall thickness. The left ventricular systolic function is normal. The calculated ejection fraction is 61% by biplane method. There is no evidence of regional wall motion abnormalities. Diastolic function is normal for age. Right Ventricle Normal right ventricular cavity size and systolic function. Atria Both atria are normal in size. Aortic Valve There is a normal trileaflet aortic valve. There is no aortic valve stenosis. There is no aortic valve regurgitation. Mitral Valve The mitral valve appears normal. There is no mitral valve regurgitation. There is no mitral valve stenosis. Pulmonic Valve The pulmonic valve is likely normal. Tricuspid Valve There is no tricuspid valve regurgitation. Tricuspid regurgitation envelope is inadequate for calculation of right ventricular systolic pressure. Great Vessels The asc aorta is normal in size. Venous The inferior vena cava is normal in size and collapses greater than 50% with inspiration. Pericardium/Pleural There is no evidence of pericardial effusion. Prior Study Comparison No prior study available for comparison. Recommendations, Care & Conclusions No obvious valvular pathology seen on this study. Measurements 2D Linear Measurements IVSd: 0.96 0.6-0.9/0.6-1.0 cm LVIDd: 4.85 3.9-5.3/4.2-5.9 cm LVIDd Index: 2.90 2.4-3.2/2.2-3.1 cm/m2 LVIDs: 2.69 2.0-3.6 cm LVPWd: 0.93 0.7-1.1 cm LA Diam: 3.50 2.7-3.8/3.0-4.0 cm LAIDs Index: 2.10 1.5-2.3 cm/m2 LV Mass: 200.35 67-162/88-224 g LV Mass Index: 119.97 43-95/49-115 g/m2 LVOT Diam: 2.10 3.0+(-)1.3 cm 2D Systolic Function EF 4C: 69.60 >55% EF 2C: 51.90 >55% EF BiP: 61.00 >55% Mitral Valve MV Pk E: 0.99 MV PK A: 0.74 MV Decel Time: 174.00 E/A: 1.30 E'Lateral: 11.60 E'Medial: 10.30 E/E' Med: 9.60 E/E' Lat: 8.50 PHT: 51.00 MVA PHT: 4.31 Decel [place]: 5.65 Aortic Valve AoV Pk Mihai: 1.48 AoV Mn Mihai: 1.05 AoV VTI: 0.23 AoV Pk Grad: 9.00 Aov Mn Grad: 5.00 ATIF Cont.VTI: 3.30 LVOT LVOT Pk Mihai: 1.42 LVOT Mn Mihai: 0.94 LVOT VTI: 0.22 LVOT Pk Grad: 8.00 LVOT Mn Grad: 4.00 LVOT Diam: 2.10 LVOT Area: 3.46 Diastolic Function MV Pk E: 0.99 MV Pk A: 0.74 E/A: 1.30 E'Medial: 10.30 E/E' Med: 9.60 E' Laterial: 11.60 E/E' Lat: 8.50 Right Ventricle TAPSE (mm): 22.60 TVS' Mihai: 17.30 Tricuspid Valve RA Press: 3.00 Great Vessels Aorta Sinus of Valsalva: 3.30 2.0-3.5 cm Ao Asc: 2.70 2.1-3.4 cm Pulmonary Veins Pulm Vein S/D 1.40 Pulmonary Valve PV Pk Mihai: 1.30 Peak PV Grad: 7.00 Updated in Other Vendor System with Status of Final Jayden Berman MD electronically signed on 04/03/2025 4:00:52 PM with status of Final
--- NOTE | 2025-04-03 07:04 | PHA.PROG ---
Admission Date/Time: April 02, 2025 22:35 Indication: SKIN INFECTION Weight in k.8 kg Adjusted body weight in Kg: [place] body weight in Kg: Obesity Dosing Indication % IBW: Serum Creatinine - Last 168 Hours 04/02/25 04/03/25 17:50 04:33 Creatinine 0.93 0.63 Estimated CrCl and GFR - Last 168 Hours 04/02/25 04/03/25 17:50 04:33 Estim Creat Clear Calc 75.7 111.8 Estimated GFR > 60 > 60 Vancomycin Loading Dose: 1500 MG Current Vancomycin Dosing Regimen: 750 MG Q8H Vancomycin Monitoring using AUC goal of 400 - 600 range with trough as surrogate marker: TAX=755 TROUGH=15.2 Date and Time for next Vancomycin Level to be drawn: 04/03/25 @1900 Pharmacist Comments on Vancomycin Plan: Vancomycin dosing will take advantage of [employer] as a clinical decision support tool that uses Bayesian modeling to calculate individual patient's pharmacokinetic parameters and forecast the patient's drug concentration time course with the target goal AUC 24 range of 400 - 600 mg/L/hr.
--- NOTE | 2025-04-03 07:10 | PC.NURSE ---
Addendum entered by Penelope Hernandez RN 04/03/25 07:36: Pt is a 34 yo female with PMH IVDA last 15 years overdose 2 years prior received narcan, UTE on methadone, tobacco dependence, , xylozene infection L forearm, depression/ anxiety uses xanax and clonidine off the street presents to the hospital after being prompted by her BF to be seen for noted enlargement in right upper arm, with redness and pt now not able to lift or move arm. Pt states she last injected cocaine yesterday. Right upper extremity runoff within the visualized arteries. 2. Extensive myositis, cellulitis and developing ill-defined abscess of the level of the shoulder 3. Reactive right axillary adenopathy. 4. No evidence of necrotizing fasciitis at this time. Patient alert and oriented but anxious. Lungs clear bilat. Respirations even and non-labored. Abdomen soft, non-tender with positive bowel sounds. Positive pedal pulses with no edema noted. Right arm extremely swollen, red, warm and tender. Positive radial pulse with good CSM noted. Original Note: Medical History Toxic effect of xylazine History of drug overdose Depression Anxiety IV drug abuse Substance use disorder
[2025-04-03 08:28] LABS: HBS Num1 74.67 mIU/mL (0-7.99); HBc Num1 0.11 S/CO (0.00-0.79); HBsAGNum1 0.31 S/CO (0.00-0.99); HIV Num 1 0.05 S/CO (0.00-0.99); Hepatitis A Antibody IgM 0.22 Index (0-0.79); Hepatitis B Surface Antigen Negative (Negative); ~HepC Num1 2.28 S/CO (0.00-0.79); ~Hepatitis A Antibody IgM Nonreactive (Nonreactive); ~Hepatitis B Surface Antibody REACTIVE (Nonreactive); ~Hepatitis C Antibody Reactive (Nonreactive)
--- NOTE | 2025-04-03 08:33 | HE.PHANOTE ---
RE: METHADONE DOSING Last dose of methadone 130 mg was given at [facility] [phone] on 04/02/25 @1146 per ANMOL Gomez.
--- NOTE | 2025-04-03 08:47 | P.CONGS_ITS ---
History of Present Illness Consult details Consult date: 04/03/25 Reason for consult: other (right arm cellulitis, possible abscess ) Requesting physician: Sue Barajas Narrative: 34-year-old female with history significant for IVDA (cocaine) and opioid dependency on methadone who presented to the ED for evaluation of right arm pain. She reports this has been going on for 3 days now. Patient reports she injected cocaine into her right arm and following this she developed pain, redness and swelling that has been worsening over the past few days. Due to the severity of pain, she came to the ED. She denies fevers, chills, nausea, vomiting. CBC, BMP, LFTs were obtained which were significant for a mild hyponatremia. She had a lactic acidosis upon presentation and elevated CRP. CTA right upper extremity was obtained which showed right upper extremity runoff within the visualized arteries, extensive myositis, cellulitis and fluid collection of the anterior shoulder with reactive right axillary adenopathy. General surgery consult was obtained for the cellulitis and abscess. She reports the pain extends from the right side of her chest all the way to her hand. She reports the swelling is worse today. She has limited mobility of the entire right arm and hand due to the pain but reports she does have sensation of the hand and denies tingling. Review of Systems 2 Review of Systems: Yes all other systems are reviewed and are negative PMFSH Past Medical History Medical History Toxic effect of xylazine History of drug overdose Depression Anxiety IV drug abuse Substance use disorder Surgical History Surgical History History of tonsillectomy and adenoidectomy Hx of section Social History Social History Smoked in Last 30 Days: Yes Use of substances other than those prescribed or required for medical reasons: Yes Substance Use Type: Crack/Cocaine, Heroin and Marijuana Advance Directives: No Advance Directives Information Provided: No Do you have a plan to hurt others: No Plan Patient : No (HCT in less than 2) Travel History Ebola Risk: Travel/Contact With Anyone From Affected Area/s: No Has Patient Experienced Ebola Symptoms: No Meds Allergies Allergy/AdvReac Type Severity Reaction Status Date / Time No Known Allergies Allergy Verified 04/02/25 13:13 Active Medications: Current Medications Acetaminophen (Acetaminophen 325 Mg Tablet) 650 mg PO Q6H PRN PRN Reason: Pain, Mild 1-3,fever,headache Last Admin: 04/03/25 06:40 Dose: 650 mg Albuterol/Ipratropium (Albuterol/Iprat 2.5/0.5mg 3 Ml Ampul.Neb) 3 ml INHALE Q4H PRN PRN Reason: Shortness of Breath/Wheezing Calcium Carbonate (Calcium Carbonate 750 Mg Tab.Chew) 750 mg PO Q4H PRN PRN Reason: Heartburn Diazepam (Diazepam 10 Mg/2 Ml Cartridge) 10 mg IVPUSH Q6H PRN PRN Reason: anxiety/restlessness Enoxaparin Sodium (Enoxaparin Sodium 40 Mg/0.4 Ml Syringe) 40 mg SUBCUT Q24H [facility] On Hold: 04/02/25 23:31 Last Admin: 04/03/25 03:44 Dose: Not Given Sodium Chloride (Ns) 1,000 mls @ 100 mls/hr IVCONT .Q10H [facility] Last Admin: 04/03/25 06:45 Dose: 100 mls/hr Vancomycin HCl 750 mg/ Sodium (Chloride) 265 mls @ 265 mls/hr IV Q8H [facility] Ketorolac Tromethamine (Ketorolac Tromethamine 15 Mg/Ml Vial) 15 mg IVPUSH Q6H PRN PRN Reason: Pain, Moderate(Pain Scale 4-6) Magnesium Hydroxide (Milk Of Magnesia 30 Ml Oral.Susp) 30 ml PO DAILY PRN PRN Reason: Constipation Melatonin (Melatonin 3 Mg Tablet) 6 mg PO BEDTIME PRN PRN Reason: Insomnia Morphine Sulfate (Morphine Sulfate 2 Mg/Ml Cartridge) 2 mg IVPUSH Q4H PRN; Protocol PRN Reason: Pain, Severe (Pain Scale 7-10) Last Admin: 04/03/25 07:35 Dose: 2 mg Nicotine Polacrilex (Nicotine Polacrilex 2 Mg Gum) 2 mg BUCCAL Q2H PRN PRN Reason: Nicotine Cravings Ondansetron HCl (Ondansetron Hcl 4 Mg/2 Ml Vial) 4 mg IVPUSH Q8H PRN PRN Reason: Nausea and Vomiting Pantoprazole Sodium (Pantoprazole Sodium 40 Mg/10 Ml Vial) 40 mg IVPUSH DAILY@0630 [facility] Last Admin: 04/03/25 07:15 Dose: 40 mg Pharmacy Consult (Consult Rx Vancomycin Dosing) 1 each MISCELLANE DAILY PRN PRN Reason: Consult order Polyethylene Glycol (Polyethylene Glycol 3350 17 Gm Powd.Pack) 17 gm PO DAILY PRN PRN Reason: Constipation Sodium Chloride (0.9 % Sodium Chloride Flush 3 Ml Syringe) 3 ml IVFLUSH [facility] Last Admin: 04/03/25 07:18 Dose: Not Given Sodium Chloride (0.9 % Sodium Chloride Flush 3 Ml Syringe) 3 ml IVFLUSH [facility] Last Admin: 04/03/25 07:19 Dose: Not Given Home Medications ?Medication ?Instructions ?Recorded ?Confirmed ?Last Taken ?Type methadone 10 mg/mL oral 130 mg PO DAILY 04/03/2508/2704/02/25 11:46 History concentrate (Methadone Intensol) Physical Exam 2 Vital Signs: Vital Signs: Last Vital Signs Temp 99.6 F 04/03/25 07:17 Pulse 112 H 04/03/25 07:17 Resp 16 04/03/25 07:17 BP 155/90 H 04/03/25 07:17 Pulse Ox 98 04/03/25 07:17 O2 Del Method Room Air 04/03/25 07:17 BMI result Body Mass Index 25.3 Const: General: lethargic Orientation/consciousness: lethargic Resp: Effort & Inspection: normal respiratory effort and able to speak in complete sentences Cardio: Rate: tachycardic Skin: Other: warm and dry as noted below in extremities Extrem: Other: right upper extremity- erythema and tense edema extending from right lateral chest through the hand- she has limited mobility due to pain but has a good palpable radial pulse and sensation of the hand; unable to appreciate any fluctuance currently due to the extensive edema, some drainage noted from AC joint Results Labs 04/03/25 04:33 04/03/25 04:33 Labs: Abnormal lab results 04/02/25 04/03/25 04/03/25 Range/Units 17:50 04:33 07:28 WBC 2.8 L (4.8-10.8) X10*3/uL RBC 4.17 L (4.20-5.50) X10*6/uL Hgb 10.4 L (12.0-16.0) g/dl Hct 35.4 L 30.9 L (37.0-47.0) % MCV 74.4 L 74.1 L (80.0-98.0) fL MCH 25.2 L 24.9 L (27.0-33.0) pg Neutrophils % (Manual) 24 L 36 L (45-73) % Band Neutrophils % 41 H 32 H (3-5) % Lymphocytes % (Manual) 14 L (20-40) % Monocytes % (Manual) 12 H (2-11) % Abs Neuts (Manual) 1.9 L (2.0-8.3) X10*3/uL Lymphocytes # (Manual) 1.1 L 0.4 L (1.2-4.9) X10*3/uL ESR 69 H (0-20) MM/HR Sodium 132 L 132 L (135-145) mmol/L Carbon Dioxide 20 L (22-29) mmol/L BUN 20 H (9-16) mg/dL Lactic Acid 2.7 H* (0.5-2.0) mmol/L Calcium 8.2 L D (8.4-10.2) mg/dL AST 43 H (5-31) U/L C-Reactive Protein 46.98 H (< or = 0.50) mg/dL Total Protein 5.9 L (6.5-8.0) g/dL Albumin 2.6 L (3.5-5.0) g/dL Hepatitis C Ab (EIA) Reactive H (Nonreactive) Short CBC 04/02/25 04/03/25 Range/Units 17:50 04:33 WBC 5.4 2.8 L (4.8-10.8) X10*3/uL Hgb 12.0 10.4 L (12.0-16.0) g/dl Hct 35.4 L 30.9 L (37.0-47.0) % Plt Count 296 D 270 (160-400) X10*3/uL BMP 04/02/25 04/03/25 17:50 04:33 Sodium 132 L 132 L Potassium 3.3 4.6 D Chloride 98 103 Carbon Dioxide 23 20 L BUN 20 H 12 Creatinine 0.93 0.63 Calcium 9.6 8.2 L D Liver Function 04/02/25 04/03/25 Range/Units 17:50 04:33 Total Bilirubin 0.4 0.4 (0.0-1.0) mg/dL Direct Bilirubin 0.2 (0.0-0.5) mg/dL AST 19 43 H (5-31) U/L ALT 13 6 (0-31) U/L Alkaline Phosphatase 81 65 (39-117) U/L Albumin 3.8 2.6 L (3.5-5.0) g/dL All other labs normal. Imaging Additional studies: CTA right upper extremity and labs reviewed Assessment and Plan (1) Cellulitis: Qualifiers: Laterality: right Site of cellulitis: extremity Site of cellulitis of extremity: upper extremity Qualified Code(s): L03.113 - Cellulitis of right upper limb Status: Acute (2) Myositis: Qualifiers: Laterality: right Myositis location: shoulder Myositis type: infective Qualified Code(s): M60.011 - Infective myositis, right shoulder Status: Acute (3) IV drug abuse: Status: Acute Plan 34-year-old female with history significant for IVDA and opioid dependency on methadone who presented with right upper extremity pain following injecting in her right arm admitted for sepsis, cellultitis and myositis of the RUE. General surgery was consulted for a possible abscess however I am unable to appreciate the fluid collection noted in the radiologist report and unable to appreciate any fluctuance on exam due to the extensive edema. Exam is also limited due to the patient's pain. Furthermore her arm is tensely edematous diffusely and would recommend ortho consult for evaluation. Procedures Date of Service Date of Service: 04/03/25
--- NOTE | 2025-04-03 09:37 | PM.CNOR ---
History of Present Illness HPI Consult date: 04/03/25 Chief complaint: Right upper extemity cellulitis,sepsis Narrative: Patient is a 34-year-old female with past medical history significant for active IV drug use admitted to the hospital for right upper extremity swelling, severe pain, redness, and limited range of motion Patient states that approximately 4 days ago she injected what she thought was cocaine into the antecubital fossa of her right arm Patient states that since that time, she has begun experiencing significant pain, redness, swelling, and severely limited range of motion of the right upper extremity, diffusely from the shoulder to the hand Patient states that she does have some drainage from a wound in the antecubital fossa CTA obtained while the patient was in the hospital did demonstrate a forming abscess in the anterior aspect of the right shoulder, therefore ortho was consulted to discuss intervention and treatment Today, the patient reports that her pain has not improved at all since admission to the hospital Reports that she can not move her right arm Patient does report that distal sensation is intact in the right upper extremity Of note, the patient does appear to get close to falling asleep over the course of interview No other acute complaints or concerns at this time Review of Systems Review of Systems: Yes all other systems are reviewed and are negative PMFSH Past Medical History Medical History Toxic effect of xylazine History of drug overdose Depression Anxiety IV drug abuse Substance use disorder Surgical History Surgical History History of tonsillectomy and adenoidectomy Hx of section Social History Social History Substance Use Type: Crack/Cocaine, Heroin and Marijuana Travel History Ebola Risk: Travel/Contact With Anyone From Affected Area/s: No Has Patient Experienced Ebola Symptoms: No Meds Allergies Allergy/AdvReac Type Severity Reaction Status Date / Time No Known Allergies Allergy Verified 04/02/25 13:13 Active Medications: Current Medications Acetaminophen (Acetaminophen 325 Mg Tablet) 650 mg PO Q6H PRN PRN Reason: Pain, Mild 1-3,fever,headache Last Admin: 04/03/25 06:40 Dose: 650 mg Albuterol/Ipratropium (Albuterol/Iprat 2.5/0.5mg 3 Ml Ampul.Neb) 3 ml INHALE Q4H PRN PRN Reason: Shortness of Breath/Wheezing Calcium Carbonate (Calcium Carbonate 750 Mg Tab.Chew) 750 mg PO Q4H PRN PRN Reason: Heartburn Diazepam (Diazepam 10 Mg/2 Ml Cartridge) 10 mg IVPUSH Q6H PRN PRN Reason: anxiety/restlessness Enoxaparin Sodium (Enoxaparin Sodium 40 Mg/0.4 Ml Syringe) 40 mg SUBCUT Q24H [facility] On Hold: 04/02/25 23:31 Last Admin: 04/03/25 03:44 Dose: Not Given Sodium Chloride (Ns) 1,000 mls @ 100 mls/hr IVCONT .Q10H [facility] Last Admin: 04/03/25 06:45 Dose: 100 mls/hr Vancomycin HCl 750 mg/ Sodium (Chloride) 265 mls @ 265 mls/hr IV Q8H [facility] Cefazolin Sodium/Dextrose (Ancef) 2 gm in 50 mls @ 100 mls/hr IV PREOP ONE Stop: 04/03/25 12:55 Ketorolac Tromethamine (Ketorolac Tromethamine 15 Mg/Ml Vial) 15 mg IVPUSH Q6H PRN PRN Reason: Pain, Moderate(Pain Scale 4-6) Magnesium Hydroxide (Milk Of Magnesia 30 Ml Oral.Susp) 30 ml PO DAILY PRN PRN Reason: Constipation Melatonin (Melatonin 3 Mg Tablet) 6 mg PO BEDTIME PRN PRN Reason: Insomnia Morphine Sulfate (Morphine Sulfate 2 Mg/Ml Cartridge) 2 mg IVPUSH Q4H PRN; Protocol PRN Reason: Pain, Severe (Pain Scale 7-10) Last Admin: 04/03/25 07:35 Dose: 2 mg Nicotine Polacrilex (Nicotine Polacrilex 2 Mg Gum) 2 mg BUCCAL Q2H PRN PRN Reason: Nicotine Cravings Ondansetron HCl (Ondansetron Hcl 4 Mg/2 Ml Vial) 4 mg IVPUSH Q8H PRN PRN Reason: Nausea and Vomiting Pantoprazole Sodium (Pantoprazole Sodium 40 Mg/10 Ml Vial) 40 mg IVPUSH DAILY@0630 [facility] Last Admin: 04/03/25 07:15 Dose: 40 mg Pharmacy Consult (Consult Rx Vancomycin Dosing) 1 each MISCELLANE DAILY PRN PRN Reason: Consult order Polyethylene Glycol (Polyethylene Glycol 3350 17 Gm Powd.Pack) 17 gm PO DAILY PRN PRN Reason: Constipation Sodium Chloride (0.9 % Sodium Chloride Flush 3 Ml Syringe) 3 ml IVFLUSH [facility] Last Admin: 04/03/25 07:18 Dose: Not Given Sodium Chloride (0.9 % Sodium Chloride Flush 3 Ml Syringe) 3 ml IVFLUSH [facility] Last Admin: 04/03/25 07:19 Dose: Not Given Home Medications ?Medication ?Instructions ?Recorded ?Confirmed ?Last Taken ?Type dextroamphetamine-amphetamine 20 20 mg PO DAILY 04/03/25 04/03/25 2 Days Ago History mg tablet (Adderall) ~04/01/25 dextroamphetamine-amphetamine 5 mg 5 mg PO DAILY@1200,2100 04/03/25 04/03/25 2 Days Ago History tablet (Adderall) ~04/01/25 ibuprofen 200 mg tablet 400 mg PO Q6H PRN Pain 04/03/25 04/03/25 Unknown History methadone 10 mg/mL oral 130 mg PO DAILY 04/03/25 04/03/25 04/02/25 11:46 History concentrate (Methadone Intensol) Physical Exam Vital Signs: Vital Signs: Last Vital Signs Temp 98.1 F 04/03/25 09:35 Pulse 99 04/03/25 09:35 Resp 18 04/03/25 09:35 BP 139/80 04/03/25 09:35 Pulse Ox 97 04/03/25 09:35 O2 Del Method Nasal Cannula 04/03/25 09:35 O2 Flow Rate 2 04/03/25 09:35 BMI result Body Mass Index 25.3 Extrem: Other: Patient's right shoulder and upper arm is significantly swollen and erythematous to inspection There is a wound noted in the antecubital fossa of the right elbow with some active drainage that appears purulent nature There are skin changes consistent with severe cellulitis on the right upper arm over the biceps No open wound noted of the right shoulder Patient reports severe tenderness to palpation of the anterior aspect of the right upper arm, area is very indurated and tense to palpation There is significant swelling diffusely throughout the right upper extremity, however there is no further tenseness noted Significant tenderness to palpation of the right anterior shoulder as well Patient is unable to actively range any of the joints of the right upper extremity due to pain Distal sensation intact Capillary refill brisk Right radial pulse strong and intact Results Labs 04/03/25 04:33 04/03/25 04:33 Labs: Abnormal lab results 04/02/25 04/03/25 04/03/25 Range/Units 17:50 04:33 07:28 WBC 2.8 L (4.8-10.8) X10*3/uL RBC 4.17 L (4.20-5.50) X10*6/uL Hgb 10.4 L (12.0-16.0) g/dl Hct 35.4 L 30.9 L (37.0-47.0) % MCV 74.4 L 74.1 L (80.0-98.0) fL MCH 25.2 L 24.9 L (27.0-33.0) pg Neutrophils % (Manual) 24 L 36 L (45-73) % Band Neutrophils % 41 H 32 H (3-5) % Lymphocytes % (Manual) 14 L (20-40) % Monocytes % (Manual) 12 H (2-11) % Abs Neuts (Manual) 1.9 L (2.0-8.3) X10*3/uL Lymphocytes # (Manual) 1.1 L 0.4 L (1.2-4.9) X10*3/uL ESR 69 H (0-20) MM/HR Sodium 132 L 132 L (135-145) mmol/L Carbon Dioxide 20 L (22-29) mmol/L BUN 20 H (9-16) mg/dL Lactic Acid 2.7 H* (0.5-2.0) mmol/L Calcium 8.2 L D (8.4-10.2) mg/dL AST 43 H (5-31) U/L C-Reactive Protein 46.98 H (< or = 0.50) mg/dL Total Protein 5.9 L (6.5-8.0) g/dL Albumin 2.6 L (3.5-5.0) g/dL Hepatitis C Ab (EIA) Reactive H (Nonreactive) H & H 04/02/25 04/03/25 Range/Units 17:50 04:33 Hgb 12.0 10.4 L (12.0-16.0) g/dl Hct 35.4 L 30.9 L (37.0-47.0) % All other labs normal. Diagnostic results Shoulder CT: report reviewed and image reviewed Assessment and Plan (1) Cellulitis: Qualifiers: Laterality: right Site of cellulitis: extremity Site of cellulitis of extremity: upper extremity Qualified Code(s): L03.113 - Cellulitis of right upper limb Status: Acute (2) Sepsis: Qualifiers: Sepsis acute organ dysfunction status: with acute organ dysfunction Sepsis type: sepsis due to unspecified organism Severe sepsis acute organ dysfunction type: unspecified Severe sepsis shock status: without septic shock Qualified Code(s): A41.9 - Sepsis, unspecified organism; R65.20 - Severe sepsis without septic shock Status: Acute (3) Myositis: Qualifiers: Laterality: right Myositis location: shoulder Myositis type: infective Qualified Code(s): M60.011 - Infective myositis, right shoulder Status: Acute (4) Abscess of right upper arm and forearm: Status: Acute Plan 1. Abscess and cellulitis of right upper extremity Case was discussed with Dr. Matta, and a collaborative treatment plan was formed: Based off of clinical exam findings and imaging the patient does likely have a abscess of the proximal right upper extremity which would benefit from surgical intervention. The patient does understand nonsurgical intervention would result in worsening infection, potential osteomyelitis or, muscle and compartment syndrome. Given the patient's activity level and desire to continue remaining active, it would be recommended to pursue surgical intervention. We discussed the procedure in detail along with the risks, benefits, and alternatives. Risks including but not limited to infection, injury to surrounding nerves, soft tissue structures, and bone, small and large vessels, stiffness, fracture, DVT/PE, and the need for further surgery, along with intraoperative complications including but not limited to . We discussed postoperative recovery which includes intravenous antibiotics, daily dressing changes, and potentially the need for further surgery. The patient expresses understanding of this and would like to proceed with I and D of right shoulder. The patient will be booked accordingly. Procedures Date of Service Date of Service: 04/03/25
--- NOTE | 2025-04-03 09:43 | PHA.MEDREC ---
Addendum entered by Denver Marr PharmD 04/03/25 09:52: reviewed Original Note: Pharmacy Consult ? Medication Reconciliation Pharmacy has completed the medication reconciliation. Spoke with pt and she confirmed her medications. Pt confirmed she takes Methadone 130mg once daily, Adderall 20mg in the morning and 5mg @1200 & 2100; called pt pharmacy to confirm directions, they confirmed 20mg AM and 1/2 tab (10mg) at bedtime and 5mg daily, spoke with pt again and she confirmed she is taking the Adderall 20mg in the morining and 5mg @1200 & 2100.
[2025-04-03] MEDS: methADONE HCl 20 MG/2 ML ORAL.CONC 130 MG PO (11:46)
--- NOTE | 2025-04-03 12:32 | HO.PM.IMPN ---
Subjective Subjective Date of Service: 04/03/25 Interval History: Patient was lying in bed during evaluation. She is in significant pain specifically around the right shoulder, with extension into the distal aspect of her arm and into the chest. Tenderness to touch of the skin superficially and deep. Patient is tearful during evaluation, requesting analgesia, this was obliged. Pending surgical intervention for drainage of abscess Review of Systems Review of Systems: Yes all other systems are reviewed and are negative Physical Exam Exam: Exam: General: A&O x3, oriented to time place person and situation, comfortable, no pain Cardiac: S1, S2 auscultated with no S3/4, no MRG. Well perfused. Respiratory: Normal breath sounds auscultated throughout all lung zones, without wheezing, rales. Normal rate. GI/ : No abdominal pain on palpation, no masses or distentions. MSK: Right shoulder and upper extremity swollen, erythematous, severe tenderness to palpation light and deep, reduced ROM - normal peripheral sensation, normal pulses. Neurological: Normal neurological examination on overview, without obvious CN II-XII abnormalities. Vital Signs: Vital Signs: Last Vital Signs Temp 98.1 F 04/03/25 09:35 Pulse 99 04/03/25 09:35 Resp 18 04/03/25 09:35 BP 139/80 04/03/25 09:35 Pulse Ox 97 04/03/25 09:35 O2 Del Method Nasal Cannula 04/03/25 09:35 O2 Flow Rate 2 04/03/25 09:35 BMI result Body Mass Index 27.8 Objective Data Active Medications Acetaminophen (Acetaminophen 325 Mg Tablet) 650 mg PO Q6H PRN PRN Reason: Pain, Mild 1-3,fever,headache Last Admin: 04/03/25 06:40 Dose: 650 mg Documented By: JANE Albuterol/Ipratropium (Albuterol/Iprat 2.5/0.5mg 3 Ml Ampul.Neb) 3 ml INHALE Q4H PRN PRN Reason: Shortness of Breath/Wheezing Calcium Carbonate (Calcium Carbonate 750 Mg Tab.Chew) 750 mg PO Q4H PRN PRN Reason: Heartburn Enoxaparin Sodium (Enoxaparin Sodium 40 Mg/0.4 Ml Syringe) 40 mg SUBCUT Q24H HANNAH On Hold: 04/02/25 23:31 Last Admin: 04/03/25 03:44 Dose: Not Given Documented By: JANE Non-Admin Reason: See Note Comments: Due held, possible surgery in AM Hydroxyzine HCl (Hydroxyzine Hcl 50 Mg Tablet) 50 mg PO Q6H PRN PRN Reason: anxiety/restlessness Sodium Chloride (Ns) 1,000 mls @ 100 mls/hr IVCONT .Q10H COUNTS INCLUDE 234 BEDS AT THE [facility] Last Admin: 04/03/25 06:45 Dose: 100 mls/hr Documented By: JANE Vancomycin HCl 750 mg/ Sodium (Chloride) 265 mls @ 265 mls/hr IV Q8H HANNAH Cefazolin Sodium/Dextrose (Ancef) 2 gm in 50 mls @ 100 mls/hr IV PREOP ONE Stop: 04/03/25 12:55 Ketorolac Tromethamine (Ketorolac Tromethamine 15 Mg/Ml Vial) 15 mg IVPUSH Q6H PRN PRN Reason: Pain, Moderate(Pain Scale 4-6) Magnesium Hydroxide (Milk Of Magnesia 30 Ml Oral.Susp) 30 ml PO DAILY PRN PRN Reason: Constipation Melatonin (Melatonin 3 Mg Tablet) 6 mg PO BEDTIME PRN PRN Reason: Insomnia Methadone HCl (Methadone Hcl 20 Mg/2 Ml Oral.Conc) 130 mg PO DAILY@0800 COUNTS INCLUDE 234 BEDS AT THE [facility] Last Admin: 04/03/25 11:46 Dose: 130 mg Documented By: SUZIE Co-signed By: SHASHANK Morphine Sulfate (Morphine Sulfate 2 Mg/Ml Cartridge) 2 mg IVPUSH Q4H PRN; Protocol PRN Reason: Pain, Severe (Pain Scale 7-10) Last Admin: 04/03/25 11:45 Dose: 2 mg Documented By: SUZIE Nicotine Polacrilex (Nicotine Polacrilex 2 Mg Gum) 2 mg BUCCAL Q2H PRN PRN Reason: Nicotine Cravings Ondansetron HCl (Ondansetron Hcl 4 Mg/2 Ml Vial) 4 mg IVPUSH Q8H PRN PRN Reason: Nausea and Vomiting Pantoprazole Sodium (Pantoprazole Sodium 40 Mg/10 Ml Vial) 40 mg IVPUSH DAILY@0630 COUNTS INCLUDE 234 BEDS AT THE [facility] Last Admin: 04/03/25 07:15 Dose: 40 mg Documented By: DIOGENES Pharmacy Consult (Consult Rx Vancomycin Dosing) 1 each MISCELLANE DAILY PRN PRN Reason: Consult order Polyethylene Glycol (Polyethylene Glycol 3350 17 Gm Powd.Pack) 17 gm PO DAILY PRN PRN Reason: Constipation Sodium Chloride (0.9 % Sodium Chloride Flush 3 Ml Syringe) [facility] Last Admin: 04/03/25 07:18 Dose: Not Given Documented By: DIOGENES Non-Admin Reason: IV Running Sodium Chloride (0.9 % Sodium Chloride Flush 3 Ml Syringe) 3 ml IVFLUSH [facility] Last Admin: 04/03/25 07:19 Dose: Not Given Documented By: DIOGENES Non-Admin Reason: IV Running Labs 04/03/25 04:33 04/03/25 04:33 Labs: Laboratory Results - last 24 hr 04/02/25 04/02/25 04/03/25 17:50 20:34 04:33 MCV 74.4 L 74.1 L MCH 25.2 L 24.9 L MCHC 33.9 33.7 RDW 14.7 14.6 Plt Count 296 D 270 MPV 10.9 11.7 Immature Gran % (Auto) Cancelled Cancelled Neut % (Auto) Cancelled Cancelled Lymph % (Auto) Cancelled Cancelled [place] % (Auto) Cancelled Cancelled Eos % (Auto) Cancelled Cancelled Baso % (Auto) Cancelled Cancelled Lymph # (Auto) Cancelled Cancelled [place] # (Auto) Cancelled Cancelled Eos # (Auto) Cancelled Cancelled Baso # (Auto) Cancelled Cancelled Abs Immat Gran (auto) Cancelled Cancelled Absolute Neuts (auto) Cancelled Cancelled Absolute Nucleated RBC 0.000 0.000 Nucleated RBC % (auto) 0.0 0.0 Neutrophils % (Manual) 24 L 36 L Band Neutrophils % 41 H 32 H Lymphocytes % (Manual) 20 14 L Atypical Lymphs % (Man) 2 2 Monocytes % (Manual) 11 12 H Eosinophils % (Manual) 2 3 Basophils % (Manual) 1 Abs Neuts (Manual) 3.5 1.9 L Lymphocytes # (Manual) 1.1 L 0.4 L Atyp Lymphs # (Manual) 0.1 0.1 Monocytes # (Manual) 0.6 0.3 Eosinophils # (Manual) 0.1 0.1 Smudge Cells PRESENT Toxic Vacuolation PRESENT PRESENT Platelet Estimate NORMAL NORMAL Large Platelets PRESENT PRESENT Plt Morphology Comment NORMAL NOTED RBC Morphology NOTED NOTED Microcytosis 1+ (5-14) Ovalocytes 1+ (5-14) [place] Cells 2+ (3-5) 3+ (>5) Schistocytes 1+ (0-2) ESR 69 H Anion Gap 14 14 Estim Creat Clear Calc 75.7 111.8 Estimated GFR > 60 > 60 Random Glucose 107 80 Lactic Acid 2.7 H* Lactic Acid F/U @ 2Hr 1.8 Calcium 9.6 8.2 L D Magnesium 1.9 Total Bilirubin 0.4 0.4 Direct Bilirubin 0.2 AST 19 43 H ALT 13 6 Alkaline Phosphatase 81 65 C-Reactive Protein 46.98 H Total Protein 7.1 5.9 L Albumin 3.8 2.6 L Beta HCG, Quant < 2 Hepatitis A IgM Ab Hep Bs Antigen Hep Bs Antibody Hep B Core Total Ab Hepatitis C Ab (EIA) HIV 1&2 Ab/P24 Ag 4thGn 04/03/25 07:28 MCV MCH MCHC RDW Plt Count MPV Immature Gran % (Auto) Neut % (Auto) Lymph % (Auto) [place] % (Auto) Eos % (Auto) Baso % (Auto) Lymph # (Auto) [place] # (Auto) Eos # (Auto) Baso # (Auto) Abs Immat Gran (auto) Absolute Neuts (auto) Absolute Nucleated RBC Nucleated RBC % (auto) Neutrophils % (Manual) Band Neutrophils % Lymphocytes % (Manual) Atypical Lymphs % (Man) Monocytes % (Manual) Eosinophils % (Manual) Basophils % (Manual) Abs Neuts (Manual) Lymphocytes # (Manual) Atyp Lymphs # (Manual) Monocytes # (Manual) Eosinophils # (Manual) Smudge Cells Toxic Vacuolation Platelet Estimate Large Platelets Plt Morphology Comment RBC Morphology Microcytosis Ovalocytes [place] Cells Schistocytes ESR Anion Gap Estim Creat Clear Calc Estimated GFR Random Glucose Lactic Acid Lactic Acid F/U @ 2Hr Calcium Magnesium Total Bilirubin Direct Bilirubin AST ALT Alkaline Phosphatase C-Reactive Protein Total Protein Albumin Beta HCG, Quant Hepatitis A IgM Ab Nonreactive Hep Bs Antigen Negative Hep Bs Antibody REACTIVE Hep B Core Total Ab Nonreactive Hepatitis C Ab (EIA) Reactive H HIV 1&2 Ab/P24 Ag 4thGn Nonreactive Assessment and Plan (1) Anxiety: Status: Acute (2) Depression: Status: Acute (3) Substance use disorder: Status: Acute (4) IV drug abuse: Status: Acute (5) GERD (gastroesophageal reflux disease): Status: Acute (6) Cellulitis: Status: Acute (7) Sepsis: Status: Acute (8) Abscess of right upper arm and forearm: Status: Acute (9) Myositis: Status: Acute Plan 34 yo female with PMH IVDU c/b hx overdose on methadone, xylozene infection L forearm, depression/ anxiety uses xanax and clonidine off the street, presents with swelling of right upper extremity, admitted with sepsis 2/2 right upper extremity abscess and cellulitis with myositis 2/2 IVDU. Sepsis Right upper extremity abscess Right upper extremity cellulitis IVDU Patient met criteria for sepsis noting bandemia 41, lactic acid 2.7 down to 1.8 after IV fluids, tachycardia ESR and CRP both elevated Patient received fluid resuscitation per protocol, 30 mL/kilogram we will continue to receive an hourly rate CT of the right upper extremity confirms cellulitis with extensive myositis and developing ill-defined abscess at the level of the shoulder with reactive right axillary adenopathy No evidence of necrotizing fasciitis on CT scan PLAN - general surgery recommendations greatly appreciated-plan for drainage today - infectious diseases consultation placed - continue vancomycin - continue Zosyn - follow up blood cultures - follow up culture abscess drainage - ECHO ordered to evaluate for endocarditis - Neurovascular checks ordered of right upper extremity Myositis Continue IV antibiotics as above Continue IV fluids General surgery consultation in place as patient may require surgical drainage and opening of the upper right extremity Elevating arm and applying ice as tolerated, ice will not be applied directly to the skin Mild hyponatremia Sodium 132 - Trend BMP GERD - Protonix b.i.d. - Monitor H&H Constipation - Milk of magnesia UTE Patient normally on methadone 130 mg per day, confirmation pending Patient did take her methadone today 04/02/2025 Patient requesting help for her drug use with significant family history including mother, father and twin sister who of endocarditis related to IV drug abuse Cows ordered Valium p.r.n. (patient uses street Xanax and clonidine) Addictions consulted Depression/anxiety Chronic in nature without help in the community At this time patient defers psychiatric consultation Patient denies any SI, HI or hallucinations No 1-1 indicated at this time Valium PRN QUALITY METRICS - VTE: Enoxaparin - CODE STATUS: Full code - DIET: Regular diet Total time managing care of this patient today: 45 minutes. Quality Stroke Does the patient have a stroke diagnosis?: No Reason for No Anti-thrombotic by Day Two: Contraindicated VTE Prior VTE?: No VTE Risk Level:: Medical - moderate - high VTE Device Contraindication: N/A - Device Ordered VTE Drug Contraindication: N/A - Med Ordered
--- NOTE | 2025-04-03 14:32 | MHC.CM.PN ---
PT REPORTS SHE RECENTLY MOVED TO [place] WITH HER S/O AND HOUSING IS STABLE SHE HAS NO DME AND GOES TO [facility] IN [place] FOR MAT SHE HAS NO PCP-BROCHURE PROVIDED DECLINES A HCP DCP: HOME RESUME MAT PT TO ARRANGE TRANSPORT
--- NOTE | 2025-04-03 15:03 | PM.EVENT ---
Event Note Date of Service: 04/03/25 Event Note: Addiction consult placed for patient with OUD Attempted to see patient X2-unsuccessful, as she is now in OR for I&D Chart reviewed, methadone order in place Will follow up in AM Time Spent With Patient Time: Total time managing care of this patient today ____ minutes.
--- NOTE | 2025-04-03 15:10 | PC.NURSE ---
right shoulder red and swollen left arm red and swollen above iv site pt sts injected prior to coming in to the hospital iv patent
--- NOTE | 2025-04-03 20:14 | P.CONAN_ITS ---
HPI - Anesthesia Eval Consult details Narrative: Left upper extremity soft tissue infection PMFSH Active Problems Active Problems: All Active Problems Abscess of right upper arm and forearm (Acute) GERD (gastroesophageal reflux disease) (Acute) Depression (Acute) Anxiety (Acute) IV drug abuse (Acute) Substance use disorder (Acute) Sepsis (Acute) Myositis (Acute) Cellulitis (Acute) Past Medical History Medical History Toxic effect of xylazine History of drug overdose Depression Anxiety IV drug abuse Substance use disorder Functional capacity: independent ambulation Family History Family history of problems with anesthesia: No Surgical History Surgical History History of tonsillectomy and adenoidectomy Hx of section History of Problems with Anesthesia: No Social History Social History Household Members: Significant Other Housing: House Do you presently have visiting nurse or other home services: No Patient Tobacco Use Status: Current someday Tobacco user Substance Use Type: Crack/Cocaine, Heroin and Marijuana service: No Meds Allergies Allergy/AdvReac Type Severity Reaction Status Date / Time No Known Allergies Allergy Verified 04/02/25 13:13 Active Medications: Current Medications Acetaminophen (Acetaminophen 325 Mg Tablet) 650 mg PO Q6H PRN PRN Reason: Pain, Mild 1-3,fever,headache Last Admin: 04/03/25 06:40 Dose: 650 mg Albuterol/Ipratropium (Albuterol/Iprat 2.5/0.5mg 3 Ml Ampul.Neb) 3 ml INHALE Q4H PRN PRN Reason: Shortness of Breath/Wheezing Calcium Carbonate (Calcium Carbonate 750 Mg Tab.Chew) 750 mg PO Q4H PRN PRN Reason: Heartburn Enoxaparin Sodium (Enoxaparin Sodium 40 Mg/0.4 Ml Syringe) 40 mg SUBCUT Q24H HANNAH On Hold: 04/02/25 23:31 Last Admin: 04/03/25 03:44 Dose: Not Given Hydroxyzine HCl (Hydroxyzine Hcl 50 Mg Tablet) 50 mg PO Q6H PRN PRN Reason: anxiety/restlessness Sodium Chloride (Ns) 1,000 mls @ 100 mls/hr IVCONT .Q10H [facility] Last Infusion: 04/03/25 18:10 Dose: Infused Vancomycin HCl 750 mg/ Sodium (Chloride) 265 mls @ 265 mls/hr IV Q8H [facility] Last Infusion: 04/03/25 14:15 Dose: Infused Ketorolac Tromethamine (Ketorolac Tromethamine 15 Mg/Ml Vial) 15 mg IVPUSH Q6H PRN PRN Reason: Pain, Moderate(Pain Scale 4-6) Magnesium Hydroxide (Milk Of Magnesia 30 Ml Oral.Susp) 30 ml PO DAILY PRN PRN Reason: Constipation Melatonin (Melatonin 3 Mg Tablet) 6 mg PO BEDTIME PRN PRN Reason: Insomnia Methadone HCl (Methadone Hcl 20 Mg/2 Ml Oral.Conc) 130 mg PO DAILY@0800 [facility] Last Admin: 04/03/25 11:46 Dose: 130 mg Morphine Sulfate (Morphine Sulfate 2 Mg/Ml Cartridge) 2 mg IVPUSH Q4H PRN; Protocol PRN Reason: Pain, Severe (Pain Scale 7-10) Last Admin: 04/03/25 11:45 Dose: 2 mg Nicotine Polacrilex (Nicotine Polacrilex 2 Mg Gum) 2 mg BUCCAL Q2H PRN PRN Reason: Nicotine Cravings Ondansetron HCl (Ondansetron Hcl 4 Mg/2 Ml Vial) 4 mg IVPUSH Q8H PRN PRN Reason: Nausea and Vomiting Pantoprazole Sodium (Pantoprazole Sodium 40 Mg/10 Ml Vial) 40 mg IVPUSH DAILY@0630 [facility] Last Admin: 04/03/25 07:15 Dose: 40 mg Pharmacy Consult (Consult Rx Vancomycin Dosing) 1 each MISCELLANE DAILY PRN PRN Reason: Consult order Polyethylene Glycol (Polyethylene Glycol 3350 17 Gm Powd.Pack) 17 gm PO DAILY PRN PRN Reason: Constipation Sodium Chloride (0.9 % Sodium Chloride Flush 3 Ml Syringe) 3 ml IVFLUSH QSGAFT [facility] Last Admin: 04/03/25 18:10 Dose: Not Given Sodium Chloride (0.9 % Sodium Chloride Flush 3 Ml Syringe) 3 ml IVFLUSH QSGAFT [facility] Last Admin: 04/03/25 18:10 Dose: Not Given Home Medications ?Medication ?Instructions ?Recorded ?Confirmed ?Last Taken ?Type dextroamphetamine-amphetamine 20 20 mg PO DAILY 04/03/25 2 Days Ago History mg tablet (Adderall) ~04/01/25 dextroamphetamine-amphetamine 5 mg 5 mg PO DAILY@1200, 2100 04/03/25 04/03/25 2 Days Ago History tablet (Adderall) ~04/01/25 ibuprofen 200 mg tablet 400 mg PO Q6H PRN Pain 04/0304/03/25 Unknown History methadone 10 mg/mL oral 130 mg PO DAILY 04/03/2508/2704/02/25 11:46 History concentrate (Methadone Intensol) Exam Height,Weight and Vital Signs: Height 5 ft 3 in Weight 71.1 kg Last Vital Signs Temp 98.9 F 04/03/25 14:53 Pulse 102 H 04/03/25 14:53 Resp 20 04/03/25 14:53 BP 150/97 H 04/03/25 14:53 Pulse Ox 96 04/03/25 14:53 O2 Del Method Room Air 04/03/25 14:53 O2 Flow Rate 2 04/03/25 09:35 Pertinent Lab Results Pertinent Lab Results: Laboratory Tests 04/02/25 04/02/25 04/03/25 17:50 20:34 04:33 WBC 5.4 2.8 L RBC 4.76 4.17 L Hgb 12.0 10.4 L Hct 35.4 L 30.9 L MCV 74.4 L 74.1 L MCH 25.2 L 24.9 L MCHC 33.9 33.7 RDW 14.7 14.6 Plt Count 296 D 270 MPV 10.9 11.7 Immature Gran % (Auto) Cancelled Cancelled Neut % (Auto) Cancelled Cancelled Lymph % (Auto) Cancelled Cancelled [place] % (Auto) Cancelled Cancelled Eos % (Auto) Cancelled Cancelled Baso % (Auto) Cancelled Cancelled Lymph # (Auto) Cancelled Cancelled [place] # (Auto) Cancelled Cancelled Eos # (Auto) Cancelled Cancelled Baso # (Auto) Cancelled Cancelled Abs Immat Gran (auto) Cancelled Cancelled Absolute Neuts (auto) Cancelled Cancelled Absolute Nucleated RBC 0.000 0.000 Nucleated RBC % (auto) 0.0 0.0 Neutrophils % (Manual) 24 L 36 L Band Neutrophils % 41 H 32 H Lymphocytes % (Manual) 20 14 L Atypical Lymphs % (Man) 2 2 Monocytes % (Manual) 11 12 H Eosinophils % (Manual) 2 3 Basophils % (Manual) 1 Abs Neuts (Manual) 3.5 1.9 L Lymphocytes # (Manual) 1.1 L 0.4 L Atyp Lymphs # (Manual) 0.1 0.1 Monocytes # (Manual) 0.6 0.3 Eosinophils # (Manual) 0.1 0.1 Smudge Cells PRESENT Toxic Vacuolation PRESENT PRESENT Platelet Estimate NORMAL NORMAL Large Platelets PRESENT PRESENT Plt Morphology Comment NORMAL NOTED RBC Morphology NOTED NOTED Microcytosis 1+ (5-14) Ovalocytes 1+ (5-14) [place] Cells 2+ (3-5) 3+ (>5) Schistocytes 1+ (0-2) ESR 69 H Sodium 132 L 132 L Potassium 3.3 4.6 D Chloride 98 103 Carbon Dioxide 23 20 L Anion Gap 14 14 BUN 20 H 12 Creatinine 0.93 0.63 Estim Creat Clear Calc 75.7 111.8 Estimated GFR > 60 > 60 Random Glucose 107 80 Lactic Acid 2.7 H* Lactic Acid F/U @ 2Hr 1.8 Calcium 9.6 8.2 L D Magnesium 1.9 Total Bilirubin 0.4 0.4 Direct Bilirubin 0.2 AST 19 43 H ALT 13 6 Alkaline Phosphatase 81 65 C-Reactive Protein 46.98 H Total Protein 7.1 5.9 L Albumin 3.8 2.6 L Beta HCG, Quant < 2 Hepatitis A IgM Ab Hep Bs Antigen Hep Bs Antibody Hep B Core Total Ab Hepatitis C Ab (EIA) HIV 1&2 Ab/P24 Ag 4thGn 04/03/25 07:28 WBC RBC Hgb Hct MCV MCH MCHC RDW Plt Count MPV Immature Gran % (Auto) Neut % (Auto) Lymph % (Auto) [place] % (Auto) Eos % (Auto) Baso % (Auto) Lymph # (Auto) [place] # (Auto) Eos # (Auto) Baso # (Auto) Abs Immat Gran (auto) Absolute Neuts (auto) Absolute Nucleated RBC Nucleated RBC % (auto) Neutrophils % (Manual) Band Neutrophils % Lymphocytes % (Manual) Atypical Lymphs % (Man) Monocytes % (Manual) Eosinophils % (Manual) Basophils % (Manual) Abs Neuts (Manual) Lymphocytes # (Manual) Atyp Lymphs # (Manual) Monocytes # (Manual) Eosinophils # (Manual) Smudge Cells Toxic Vacuolation Platelet Estimate Large Platelets Plt Morphology Comment RBC Morphology Microcytosis Ovalocytes [place] Cells Schistocytes ESR Sodium Potassium Chloride Carbon Dioxide Anion Gap BUN Creatinine Estim Creat Clear Calc Estimated GFR Random Glucose Lactic Acid Lactic Acid F/U @ 2Hr Calcium Magnesium Total Bilirubin Direct Bilirubin AST ALT Alkaline Phosphatase C-Reactive Protein Total Protein Albumin Beta HCG, Quant Hepatitis A IgM Ab Nonreactive Hep Bs Antigen Negative Hep Bs Antibody REACTIVE Hep B Core Total Ab Nonreactive Hepatitis C Ab (EIA) Reactive H HIV 1&2 Ab/P24 Ag 4thGn Nonreactive Airway Mallampati Class: II TM Dist: >3cm Neck ROM: Full Loose/Missing/Broken Teeth: No Heart: RRR Lungs: CTA Assessment and Plan Assessment Anesthesia Assessment: Anesthesia Plan Discussed and Chart Reviewed Final Anesthetic Review Family History of Problems with Anesthesia: No History of Problems with Anesthesia: No NPO: Yes ASA Class: III and Emergency Final Preanesthetic Review: No Changes in Pt Med Stat, Meds/Allgs Chart Rev iewed, Consent Obtained/Reviewed and Anes Risks/Benef Reviewed Patient Risk: Intermediate Procedure Risk: Low Anesthetic Plan Anesthetic Plan: GA Disposition: Standard PACU
[2025-04-04] VITALS (7 sets, daily range): BP systolic 123–162; BP diastolic 72–76; PULSE 84–107; RESP 18; TEMP 36–38.1; O2SAT 93–98
--- NOTE | 2025-04-04 | ECG_ITS ---
Test Reason : ?aflutter Blood Pressure : */* mmHG Vent. Rate : 101 BPM Atrial Rate : 101 BPM P-R Int : 136 ms QRS Dur : 92 ms QT Int : 378 ms P-R-T Axes : 30 25 27 degrees QTcB Int : 490 ms Sinus tachycardia T wave abnormality, consider anterior ischemia Abnormal ECG When compared with ECG of 27-Feb-2025 17:29, Vent. rate has increased by 50 bpm Non-specific change in ST segment in Lateral leads T wave inversion now evident in Anterior leads QT has lengthened Referred By: Leila Cruz Electronically Signed By: MARIA A SLATER
--- NOTE | 2025-04-04 01:21 | PC.NURSE ---
This RN was notified by potline monitor tech that the patient was possibly showing a flutter. MD Robbie Cruz notified and and EKG was ordered and obtained. Per MD Robbie Cruz patient is in sinus tachycardia.
[2025-04-04 04:58] LABS: Appearance Urine Cloudy; Glucose Urine UA Negative (Negative); PH 6.5 (5.0-9.0); Specific Gravity - Urine 1.015 (1.005-1.025); UMIC TRIGGER UA YES
--- NOTE | 2025-04-04 06:21 | PC.NURSE ---
Pt refusing blood draw to obtain vancomycin trough. I explained the importance and need to test the blood levels, but pt is still refusing stating every other nurse has drawn blood off of this IV . The IV she is talking about is a long peripheral IV, I explained to the patient that we do not draw blood from these IV's.
--- NOTE | 2025-04-04 07:07 | P.BOP_ITS ---
Brief Operative Note Date of Service: 04/03/25 Pre-op diagnosis: Right arm abscess Post-op diagnosis: same Procedure: Incision and drainage of right arm abscess Implants: none Surgeon: Brendon Matta MD Anesthesia: GLMA Was an Director Of Occupational Therapy used for this Procedure?: No Estimated blood loss (mL): 5 Tourniquet time (min): 0 Pathology: other (wound cultures X 2 ) Condition: stable Disposition: PACU
--- NOTE | 2025-04-04 07:08 | W.PM.OPN ---
Operative Note Operative Note Date of Service: 04/03/25 Narrative: After the patient was identified as Molly Beasley and her right arm was initialed by myself she was brought to the operating room where general anesthesia was induced by the anesthesiologist in routine fashion. The patient was given 2 g of IV Ancef preoperatively. Inspection of the patient's right upper extremity showed a small amount of purulent fluid coming from her IV injection site. There was no palpable soft tissue mass along the patient shoulder or right upper arm. There was fluctuance along the anterior aspect of the patient's right elbow. The patient did have a ring on her finger which was quite tight. The ring could not be pulled off so it was cut and removed to protect circulation to the patient's finger. The patient's right upper extremity was prepped and draped in sterile fashion. A 15. Scalpel blade was used to make a 5 cm curvilinear incision centered over the prior injection site. The subcutaneous tissues were dissected using Littler scissors down to the bicipital aponeurosis. A moderate amount of purulent fluid was expressed from the subcutaneous tissues. Wound cultures were taken. There was no subcutaneous or muscle necrosis. The wound was irrigated with copious amounts of normal saline solution. The skin incision was then closed with 3-0 nylon vertical mattress and simple sutures. Following the procedure the forearm and upper arm compartments were less swollen. Dry sterile dressing was placed over the patient's right upper extremity. She was awoken and extubated in the operating room. She was transferred to recovery room in stable condition.
[2025-04-04 07:37] LABS: Hematocrit 25.9 % (37.0-47.0); Hemoglobin 8.9 g/dl (12.0-16.0); Mean Corpuscular HGB Conc 34.4 g/dl (31.0-35.0); Mean Corpuscular Hemoglobin 25.0 pg (27.0-33.0); Mean Corpuscular Volume 72.8 fL (80.0-98.0); NRBC Abs Auto 0.000 X10*3/uL (0.0-0.012); NRBC Pct Auto 0.0 /100WBC (0.0-0.2); PLT CLUMP 1; Red Blood Count 3.56 X10*6/uL (4.20-5.50); WBC ABN SCTR FOR CBC 1
[2025-04-04 07:39] LABS: White Blood Count 4.3 X10*3/uL (4.8-10.8)
[2025-04-04 07:47] LABS: Anion Gap 10 (12-20); Blood Urea Nitrogen 9 mg/dL (9-16); Calcium 7.4 mg/dL (8.4-10.2); Carbon Dioxide 23 mmol/L (22-29); Chloride 105 mmol/L (96-108); Creatinine Clr Calc Pharmacy 126.7; Estimated Glomerular Filt Rate > 60; Potassium 3.0 mmol/L (3.3-5.1); Sodium 135 mmol/L (135-145)
[2025-04-04 08:09] LABS: Platelet Count 235 X10*3/uL (160-400)
[2025-04-04 08:12] LABS: Atypical Lymph Absolute Manual 0.1 x10*3/uL; Atypical Lymphs Percent Manual 2 % (0-6); Band Neutrophils Percent 26 % (3-5); Eosinophils Percent Manual 1 % (0-4); Lymphocytes Absolute Manual 1.0 X10*3/uL (1.2-4.9); Lymphocytes Percent Manual 24 % (20-40); Monocytes Absolute Manual 0.3 X10*3/uL (0.1-1.2); Monocytes Percent Manual 7 % (2-11); Neutrophils Absolute Manual 2.8 X10*3/uL (2.0-8.3); Neutrophils Percent Manual 40 % (45-73)
[2025-04-04 08:19] LABS: Acanthocytes 1+ (0-2) /OIF; Burr Cells 3+ (>5) /OIF; RBC Morphology NOTED
[2025-04-04 08:20] LABS: Toxic Vacuolation PRESENT
--- NOTE | 2025-04-04 08:44 | HO.POSTANES ---
Post Anesthesia Evaluation Post Anesthesia Evaluation Date of Service: 04/04/25 Vital Signs: Vital Signs Temp Pulse Resp BP Pulse Ox O2 Del Method 04/04/25 07:52 96.8 F 84 18 149/74 H 96 Room Air 04/04/25 04:00 100.5 F H 107 H 18 162/76 H 98 Room Air 04/03/25 22:31 98.6 F 90 16 163/82 H 98 Room Air 04/03/25 22:20 94 14 155/84 H 99 Room Air 04/03/25 22:15 96 14 149/88 H 99 Room Air 04/03/25 22:10 98.8 F 97 14 149/84 H 99 Room Air 04/03/25 22:05 97 14 159/83 H 99 Room Air 04/03/25 22:05 14 04/03/25 22:00 14 04/03/25 22:00 97 16 155/105 H 97 Room Air 04/03/25 21:55 98.8 F 105 H 16 161/87 H 97 Room Air 04/03/25 21:52 16 04/03/25 21:50 105 H 16 150/93 H 97 Room Air 04/03/25 21:47 102 H 16 163/92 H 97 Room Air 04/03/25 21:45 16 04/03/25 21:40 102 H 20 153/82 H 97 Room Air 04/03/25 21:40 20 04/03/25 21:35 108 H 22 H 158/95 H 97 Room Air 04/03/25 21:35 22 H 04/03/25 21:30 25 H 04/03/25 21:30 98.8 F 102 H 20 133/75 97 Room Air Anesthesia: General Mental Status: Sedated (resting comfortably) Pain Control: Satisfactory Nausea/Vomiting: None Hydration: Adequate Anesthesia-Related Issues: No Anes. Related Issues
[2025-04-04] MEDS: methADONE HCl 20 MG/2 ML ORAL.CONC 130 MG PO (08:55)
[2025-04-04 11:30] LABS: Cannabinoid Screen Urine Not Detected (Not Detect)
--- NOTE | 2025-04-04 13:03 | PM.PNORT ---
Subjective Subjective Date of Service: 04/04/25 Interval history: POD 1 s/p I&D right arm No overnight events resting in bed with sling intact pain managed Physical Exam Vital Signs: Vital Signs: Last Vital Signs Temp 96.8 F 04/04/25 07:52 Pulse 84 04/04/25 07:52 Resp 18 04/04/25 07:52 BP 149/74 H 04/04/25 07:52 Pulse Ox 96 04/04/25 07:52 O2 Del Method Room Air 04/04/25 07:52 O2 Flow Rate 2 04/03/25 09:35 BMI result Body Mass Index 27.8 Extrem: Other: Right arm with diffuse swelling Incision is clean dry and intact no drainage she has good sensation and pulses are intact Procedures Date of Service Date of Service: 04/04/25 Progress Note: A&P Assessment and plan (1) Abscess of right upper arm and forearm: Status: Acute Assessment and Plan: Dry dressing changes prn OT for ROM Cultuires pending ID consult pending IV abx Time Spent With Patient Time: Total time managing care of this patient today ____ minutes. Quality Stroke Does the patient have a stroke diagnosis?: No Reason for No Anti-thrombotic by Day Two: Contraindicated VTE Prior VTE?: No VTE Risk Level:: Medical - moderate - high VTE Device Contraindication: N/A - Device Ordered VTE Drug Contraindication: N/A - Med Ordered
--- NOTE | 2025-04-04 13:34 | HO.ADDICT_ITS ---
History of Present Illness Date of Service: 04/04/2025 Chief Complaint: Right upper extemity cellulitis,sepsis Reason for Consult: OUD Sources of Information: patient interviewed and chart reviewed HPI Narrative: Patient is a 34 year old female medically admitted with sepsis and abscess of right arm secondary to IVDU. Consult requested due to ongoing substance use. Patient seen in [id number]. She is awake, alert, pleasant and engaged in interview. Appearing uncomfortable and reporting pain to right shoulder and arm. RN presented shortly after and administered PRN pain meds. Patient expressing fear and anxiety related to her current medical issues. Asking appropriate questions about process, treatment, etc. Discussed substance use prior to admission, she reports she had been using approx a bundle of fentanyl IV QD. She normally uses new injection supplies, however most recently she said she had 'been reusing needles and they were dull. Last use 3 days ago. Currently engaged in treatment for OUD via [facility] in [place]. Current dose of methadone is 130mg, and patient is receiving it here. No concerns related to withdrawal. Labs reviewed Medical Evaluation Reviewed: Yes Review of Systems Constitutional: Reports as per HPI Diagnostics Vital Signs (24Hr): Vital Signs - 24 hr 04/03/25 14:53 04/03/25 21:30 04/03/25 21:30 Temperature 98.9 F 98.8 F Pulse Rate 102 H 102 H Respiratory Rate 20 20 25 H Blood Pressure 150/97 H 133/75 Pulse Oximetry 96 97 Oxygen Delivery Method Room Air Room Air 04/03/25 21:35 04/03/25 21:35 04/03/25 21:40 Temperature Pulse Rate 108 H Respiratory Rate 22 H 22 H 20 Blood Pressure 158/95 H Pulse Oximetry 97 Oxygen Delivery Method Room Air 04/03/25 21:40 04/03/25 21:45 04/03/25 21:47 Temperature Pulse Rate 102 H 102 H Respiratory Rate 20 16 16 Blood Pressure 153/82 H 163/92 H Pulse Oximetry 97 97 Oxygen Delivery Method Room Air Room Air 04/03/25 21:50 04/03/25 21:52 04/03/25 21:55 Temperature 98.8 F Pulse Rate 105 H 105 H Respiratory Rate 16 16 16 Blood Pressure 150/93 H 161/87 H Pulse Oximetry 97 97 Oxygen Delivery Method Room Air Room Air 04/03/25 22:00 04/03/25 22:00 04/03/25 22:05 Temperature Pulse Rate 97 Respiratory Rate 16 14 14 Blood Pressure 155/105 H Pulse Oximetry 97 Oxygen Delivery Method Room Air 04/03/25 22:05 04/03/25 22:10 04/03/25 22:15 Temperature 98.8 F Pulse Rate 97 97 96 Respiratory Rate 14 14 14 Blood Pressure 159/83 H 149/84 H 149/88 H Pulse Oximetry 99 99 99 Oxygen Delivery Method Room Air Room Air Room Air 04/03/25 22:20 04/03/25 22:31 04/04/25 04:00 Temperature 98.6 F 100.5 F H Pulse Rate 94 90 107 H Respiratory Rate 14 16 18 Blood Pressure 155/84 H 163/82 H 162/76 H Pulse Oximetry 99 98 98 Oxygen Delivery Method Room Air Room Air Room Air 04/04/25 07:52 Temperature 96.8 F Pulse Rate 84 Respiratory Rate 18 Blood Pressure 149/74 H Pulse Oximetry 96 Oxygen Delivery Method Room Air BMI result Body Mass Index 27.8 Labs 04/04/25 07:23 04/04/25 07:23 Labs: Laboratory Results - last 48 hr 04/02/25 04/02/25 04/03/25 17:50 20:34 04:33 WBC 5.4 2.8 L RBC 4.76 4.17 L Hgb 12.0 10.4 L Hct 35.4 L 30.9 L MCV 74.4 L 74.1 L MCH 25.2 L 24.9 L MCHC 33.9 33.7 RDW 14.7 14.6 Plt Count 296 D 270 MPV 10.9 11.7 Immature Gran % (Auto) Cancelled Cancelled Neut % (Auto) Cancelled Cancelled Lymph % (Auto) Cancelled Cancelled Davis % (Auto) Cancelled Cancelled Eos % (Auto) Cancelled Cancelled Baso % (Auto) Cancelled Cancelled Lymph # (Auto) Cancelled Cancelled [place] # (Auto) Cancelled Cancelled Eos # (Auto) Cancelled Cancelled Baso # (Auto) Cancelled Cancelled Abs Immat Gran (auto) Cancelled Cancelled Absolute Neuts (auto) Cancelled Cancelled Absolute Nucleated RBC 0.000 0.000 Nucleated RBC % (auto) 0.0 0.0 Neutrophils % (Manual) 24 L 36 L Band Neutrophils % 41 H 32 H Lymphocytes % (Manual) 20 14 L Atypical Lymphs % (Man) 2 2 Monocytes % (Manual) 11 12 H Eosinophils % (Manual) 2 3 Basophils % (Manual) 1 Abs Neuts (Manual) 3.5 1.9 L Lymphocytes # (Manual) 1.1 L 0.4 L Atyp Lymphs # (Manual) 0.1 0.1 Monocytes # (Manual) 0.6 0.3 Eosinophils # (Manual) 0.1 0.1 Smudge Cells PRESENT Toxic Vacuolation PRESENT PRESENT Platelet Estimate NORMAL NORMAL Large Platelets PRESENT PRESENT Plt Morphology Comment NORMAL NOTED RBC Morphology NOTED NOTED Microcytosis 1+ (5-14) Ovalocytes 1+ (5-14) Glenn Cells 2+ (3-5) 3+ (>5) Acanthocytes (Spur) Schistocytes 1+ (0-2) ESR 69 H Sodium 132 L 132 L Potassium 3.3 4.6 D Chloride 98 103 Carbon Dioxide 23 20 L Anion Gap 14 14 BUN 20 H 12 Creatinine 0.93 0.63 Estim Creat Clear Calc 75.7 111.8 Estimated GFR > 60 > 60 Random Glucose 107 80 Lactic Acid 2.7 H* Lactic Acid F/U @ 2Hr 1.8 Calcium 9.6 8.2 L D Magnesium 1.9 Total Bilirubin 0.4 0.4 Direct Bilirubin 0.2 AST 19 43 H ALT 13 6 Alkaline Phosphatase 81 65 C-Reactive Protein 46.98 H Total Protein 7.1 5.9 L Albumin 3.8 2.6 L Beta HCG, Quant < 2 Urine Color Urine Appearance Urine pH Ur Specific [place] Urine Protein Urine Glucose (UA) Urine Ketones Urine Blood Urine Nitrite Ur Leukocyte Esterase Urine RBC Urine WBC Ur Squamous Epith Cells Urine Bacteria Hyaline Casts Random Vancomycin Urine Opiates Screen Ur Buprenorphine Scrn Ur Oxycodone Screen Urine Methadone Screen Urine Fentanyl Screen Ur Barbiturates Screen Ur Phencyclidine Scrn Ur Amphetamines Screen U Benzodiazepines Scrn Urine Cocaine Screen U Marijuana (THC) Screen Hepatitis A IgM Ab Hep Bs Antigen Hep Bs Antibody Hep B Core Total Ab Hepatitis C Ab (EIA) HIV 1&2 Ab/P24 Ag 4thGn 04/03/25 04/04/25 04/04/25 07:28 04:32 07:23 WBC 4.3 L RBC 3.56 L Hgb 8.9 L Hct 25.9 L MCV 72.8 L MCH 25.0 L MCHC 34.4 RDW 14.9 Plt Count 235 MPV 11.3 Immature Gran % (Auto) Cancelled Neut % (Auto) Cancelled Lymph % (Auto) Cancelled Davis % (Auto) Cancelled Eos % (Auto) Cancelled Baso % (Auto) Cancelled Lymph # (Auto) Cancelled Davis # (Auto) Cancelled Eos # (Auto) Cancelled Baso # (Auto) Cancelled Abs Immat Gran (auto) Cancelled Absolute Neuts (auto) Cancelled Absolute Nucleated RBC 0.000 Nucleated RBC % (auto) 0.0 Neutrophils % (Manual) 40 L Band Neutrophils % 26 H Lymphocytes % (Manual) 24 Atypical Lymphs % (Man) 2 Monocytes % (Manual) 7 Eosinophils % (Manual) 1 Basophils % (Manual) Abs Neuts (Manual) 2.8 Lymphocytes # (Manual) 1.0 L Atyp Lymphs # (Manual) 0.1 Monocytes # (Manual) 0.3 Eosinophils # (Manual) Smudge Cells Toxic Vacuolation PRESENT Platelet Estimate NORMAL Large Platelets Plt Morphology Comment NORMAL RBC Morphology NOTED Microcytosis Ovalocytes [place] Cells 3+ (>5) Acanthocytes (Spur) 1+ (0-2) Schistocytes ESR Sodium 135 Potassium 3.0 L D Chloride 105 Carbon Dioxide 23 Anion Gap 10 L BUN 9 Creatinine 0.58 Estim Creat Clear Calc 126.7 Estimated GFR > 60 Random Glucose 82 Lactic Acid Lactic Acid F/U @ 2Hr Calcium 7.4 L D Magnesium Total Bilirubin Direct Bilirubin AST ALT Alkaline Phosphatase C-Reactive Protein Total Protein Albumin Beta HCG, Quant Urine Color Yellow Urine Appearance Cloudy Urine pH 6.5 Ur Specific [place] 1.015 Urine Protein 100 (2+) H Urine Glucose (UA) Negative Urine Ketones Trace Urine Blood Moderate (2+) H Urine Nitrite Negative Ur Leukocyte Esterase Negative Urine RBC >20 H Urine WBC 0-5 Ur Squamous Epith Cells 11-20 Urine Bacteria None Seen Hyaline Casts 0-2 Random Vancomycin 7.9 L Urine Opiates Screen POSITIVE H Ur Buprenorphine Scrn Not Detected Ur Oxycodone Screen Not Detected Urine Methadone Screen Positive H Urine Fentanyl Screen POSITIVE H Ur Barbiturates Screen Not Detected Ur Phencyclidine Scrn Not Detected Ur Amphetamines Screen POSITIVE H U Benzodiazepines Scrn POSITIVE H Urine Cocaine Screen POSITIVE H U Marijuana (THC) Screen Not Detected Hepatitis A IgM Ab Nonreactive Hep Bs Antigen Negative Hep Bs Antibody REACTIVE Hep B Core Total Ab Nonreactive Hepatitis C Ab (EIA) Reactive H HIV 1&2 Ab/P24 Ag 4thGn Nonreactive Imaging Radiology Impressions: ITS Impressions Elbow X-Ray 04/02/25 14:57 IMPRESSION: No acute fracture or dislocation. Electronically signed by: Mak Hale MD 04/02/2025 03:01 PM EDT RP Mental Status Exam Mental Status Exam Level of Consciousness: Awake, Appropriate and Alert Patient Behavior: Appropriate, Talkative and Cooperative Affect Description: Calm Speech Pattern: Clear Thought Content: positive for Intact Judgement: Good Medications Medications Current Medications Acetaminophen (Acetaminophen 325 Mg Tablet) 650 mg PO Q6H PRN PRN Reason: Pain, Mild 1-3,fever,headache Last Admin: 04/04/25 03:27 Dose: 650 mg Albuterol/Ipratropium (Albuterol/Iprat 2.5/0.5mg 3 Ml Ampul.Neb) 3 ml INHALE Q4H PRN PRN Reason: Shortness of Breath/Wheezing Calcium Carbonate (Calcium Carbonate 750 Mg Tab.Chew) 750 mg PO Q4H PRN PRN Reason: Heartburn Enoxaparin Sodium (Enoxaparin Sodium 40 Mg/0.4 Ml Syringe) 40 mg SUBCUT Q24H [facility] Last Admin: 04/03/25 23:29 Dose: 40 mg Hydroxyzine HCl (Hydroxyzine Hcl 50 Mg Tablet) 50 mg PO Q6H PRN PRN Reason: anxiety/restlessness Sodium Chloride (Ns) 1,000 mls @ 100 mls/hr IVCONT .Q10H [facility] Last Admin: 04/04/25 08:52 Dose: 100 mls/hr Vancomycin HCl 1,250 mg/ (Sodium Chloride) 250 mls @ 166.667 mls/hr IV Q8H [facility] Last Infusion: 04/04/25 10:25 Dose: Infused Ketorolac Tromethamine (Ketorolac Tromethamine 15 Mg/Ml Vial) 15 mg IVPUSH Q6H PRN PRN Reason: Pain, Moderate(Pain Scale 4-6) Last Admin: 04/04/25 13:09 Dose: 15 mg Magnesium Hydroxide (Milk Of Magnesia 30 Ml Oral.Susp) 30 ml PO DAILY PRN PRN Reason: Constipation Melatonin (Melatonin 3 Mg Tablet) 6 mg PO BEDTIME PRN PRN Reason: Insomnia Methadone HCl (Methadone Hcl 20 Mg/2 Ml Oral.Conc) 130 mg PO DAILY@0800 [facility] Last Admin: 04/04/25 08:55 Dose: 130 mg Morphine Sulfate (Morphine Sulfate 2 Mg/Ml Cartridge) 2 mg IVPUSH Q4H PRN; Protocol PRN Reason: Pain, Severe (Pain Scale 7-10) Last Admin: 04/03/25 11:45 Dose: 2 mg Naloxone HCl (Naloxone Hcl 0.4 Mg/Ml Vial) 0.04 mg IVPUSH Q5M PRN PRN Reason: Excessive sedation or RR < 8 Nicotine Polacrilex (Nicotine Polacrilex 2 Mg Gum) 2 mg BUCCAL Q2H PRN PRN Reason: Nicotine Cravings Ondansetron HCl (Ondansetron Hcl 4 Mg/2 Ml Vial) 4 mg IVPUSH Q8H PRN PRN Reason: Nausea and Vomiting Pantoprazole Sodium (Pantoprazole Sodium 40 Mg/10 Ml Vial) 40 mg IVPUSH DAILY@0630 [facility] Last Admin: 04/04/25 06:07 Dose: 40 mg Pharmacy Consult (Consult Rx Vancomycin Dosing) 1 each MISCELLANE DAILY PRN PRN Reason: Consult order Polyethylene Glycol (Polyethylene Glycol 3350 17 Gm Powd.Pack) 17 gm PO DAILY PRN PRN Reason: Constipation Sodium Chloride (0.9 % Sodium Chloride Flush 3 Ml Syringe) 3 ml IVFLUSH [facility] Last Admin: 04/04/25 08:51 Dose: Not Given Sodium Chloride (0.9 % Sodium Chloride Flush 3 Ml Syringe) 3 ml IVFLUSH [facility] Last Admin: 04/04/25 08:51 Dose: Not Given Allergies Allergies Allergy/AdvReac Type Severity Reaction Status Date / Time No Known Allergies Allergy Verified 04/02/25 13:13 Assessment & Plan Assessment & Plan (1) Opioid use disorder, severe, dependence: Status: Acute Code(s): F11.20 - Opioid dependence, uncomplicated Assessment and Plan: * continue methadone as ordered --patient already connected to [facility] * patient reminded to request PRN pain medications when needed. 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 [facility] Past Medical History Medical History Toxic effect of xylazine History of drug overdose Depression Anxiety IV drug abuse Substance use disorder Surgical History Surgical History History of tonsillectomy and adenoidectomy Hx of section Social History Social History Household Members: Significant Other Housing: House Do you presently have visiting nurse or other home services: No Patient Tobacco Use Status: Current someday Tobacco user Substance Use Type: Crack/Cocaine, Heroin and Marijuana service: No
--- NOTE | 2025-04-04 14:24 | P.PNIM_ITS ---
Subjective Subjective Date of Service: 04/04/25 Interval History: Remains in pain around the right shoulder, however improved from yesterday. Has good mobility of her upper extremities, improved ROM, still limited. Endorses was able to sleep last night. No fevers chills or rigors Review of Systems Review of Systems: Yes all other systems are reviewed and are negative Physical Exam 2 Exam: Exam: General: A&O x3, oriented to time place person and situation, comfortable, no pain Cardiac: S1, S2 auscultated with no S3/4, no MRG. Well perfused. Respiratory: Normal breath sounds auscultated throughout all lung zones, without wheezing, rales. Normal rate. GI/ : No abdominal pain on palpation, no masses or distentions. MSK: Right shoulder and upper extremity swollen, erythematous, improved tenderness to palpation light and deep, reduced ROM - normal peripheral sensation, normal pulses. Neurological: Normal neurological examination on overview, without obvious CN II-XII abnormalities. Vital Signs: Vital Signs: Last Vital Signs Temp 96.8 F 04/04/25 07:52 Pulse 84 04/04/25 07:52 Resp 18 04/04/25 07:52 BP 149/74 H 04/04/25 07:52 Pulse Ox 96 04/04/25 07:52 O2 Del Method Room Air 04/04/25 07:52 O2 Flow Rate 2 04/03/25 09:35 BMI result Body Mass Index 27.8 Objective Data Active Medications Acetaminophen (Acetaminophen 325 Mg Tablet) 650 mg PO Q6H PRN PRN Reason: Pain, Mild 1-3,fever,headache Last Admin: 04/04/25 03:27 Dose: 650 mg Documented By: JUSTIN Albuterol/Ipratropium (Albuterol/Iprat 2.5/0.5mg 3 Ml Ampul.Neb) 3 ml INHALE Q4H PRN PRN Reason: Shortness of Breath/Wheezing Calcium Carbonate (Calcium Carbonate 750 Mg Tab.Chew) 750 mg PO Q4H PRN PRN Reason: Heartburn Enoxaparin Sodium (Enoxaparin Sodium 40 Mg/0.4 Ml Syringe) 40 mg SUBCUT Q24H [facility] Last Admin: 04/03/25 23:29 Dose: 40 mg Documented By: JUSTIN Hydroxyzine HCl (Hydroxyzine Hcl 50 Mg Tablet) 50 mg PO Q6H PRN PRN Reason: anxiety/restlessness Sodium Chloride (Ns) 1,000 mls @ 100 mls/hr IVCONT .Q10H [facility] Last Admin: 04/04/25 08:52 Dose: 100 mls/hr Documented By: SUZIE Vancomycin HCl 1,250 mg/ (Sodium Chloride) 250 mls @ 166.667 mls/hr IV Q8H [facility] Last Infusion: 04/04/25 10:25 Dose: Infused Documented By: SUZIE Ketorolac Tromethamine (Ketorolac Tromethamine 15 Mg/Ml Vial) 15 mg IVPUSH Q6H PRN PRN Reason: Pain, Moderate(Pain Scale 4-6) Last Admin: 04/04/25 13:09 Dose: 15 mg Documented By: SUZIE Magnesium Hydroxide (Milk Of Magnesia 30 Ml Oral.Susp) 30 ml PO DAILY PRN PRN Reason: Constipation Melatonin (Melatonin 3 Mg Tablet) 6 mg PO BEDTIME PRN PRN Reason: Insomnia Methadone HCl (Methadone Hcl 20 Mg/2 Ml Oral.Conc) 130 mg PO DAILY@0800 [facility] Last Admin: 04/04/25 08:55 Dose: 130 mg Documented By: SUZIE Co-signed By: DELROY Morphine Sulfate (Morphine Sulfate 2 Mg/Ml Cartridge) 2 mg IVPUSH Q4H PRN; Protocol PRN Reason: Pain, Severe (Pain Scale 7-10) Last Admin: 04/03/25 11:45 Dose: 2 mg Documented By: SUZIE Naloxone HCl (Naloxone Hcl 0.4 Mg/Ml Vial) 0.04 mg IVPUSH Q5M PRN PRN Reason: Excessive sedation or RR < 8 Nicotine Polacrilex (Nicotine Polacrilex 2 Mg Gum) 2 mg BUCCAL Q2H PRN PRN Reason: Nicotine Cravings Ondansetron HCl (Ondansetron Hcl 4 Mg/2 Ml Vial) 4 mg IVPUSH Q8H PRN PRN Reason: Nausea and Vomiting Pantoprazole Sodium (Pantoprazole Sodium 40 Mg/10 Ml Vial) 40 mg IVPUSH DAILY@0630 [facility] Last Admin: 04/04/25 06:07 Dose: 40 mg Documented By: JUSTIN Pharmacy Consult (Consult Rx Vancomycin Dosing) 1 each MISCELLANE DAILY PRN PRN Reason: Consult order Polyethylene Glycol (Polyethylene Glycol 3350 17 Gm Powd.Pack) 17 gm PO DAILY PRN PRN Reason: Constipation Sodium Chloride (0.9 % Sodium Chloride Flush 3 Ml Syringe) 3 ml IVFLUSH QSHIFT [facility] Last Admin: 04/04/25 08:51 Dose: Not Given Documented By: SUZIE Non-Admin Reason: IV Running Sodium Chloride (0.9 % Sodium Chloride Flush 3 Ml Syringe) [facility] Last Admin: 04/04/25 08:51 Dose: Not Given Documented By: SUZIE Non-Admin Reason: IV Running Labs 04/04/25 07:23 04/04/25 07:23 Labs: Laboratory Results - last 24 hr 04/04/25 04/04/25 04:32 07:23 MCV 72.8 L MCH 25.0 L MCHC 34.4 RDW 14.9 Plt Count 235 MPV 11.3 Immature Gran % (Auto) Cancelled Neut % (Auto) Cancelled Lymph % (Auto) Cancelled [place] % (Auto) Cancelled Eos % (Auto) Cancelled Baso % (Auto) Cancelled Lymph # (Auto) Cancelled [place] # (Auto) Cancelled Eos # (Auto) Cancelled Baso # (Auto) Cancelled Abs Immat Gran (auto) Cancelled Absolute Neuts (auto) Cancelled Absolute Nucleated RBC 0.000 Nucleated RBC % (auto) 0.0 Neutrophils % (Manual) 40 L Band Neutrophils % 26 H Lymphocytes % (Manual) 24 Atypical Lymphs % (Man) 2 Monocytes % (Manual) 7 Eosinophils % (Manual) 1 Abs Neuts (Manual) 2.8 Lymphocytes # (Manual) 1.0 L Atyp Lymphs # (Manual) 0.1 Monocytes # (Manual) 0.3 Toxic Vacuolation PRESENT Platelet Estimate NORMAL Plt Morphology Comment NORMAL RBC Morphology NOTED [place] Cells 3+ (>5) Acanthocytes (Spur) 1+ (0-2) Anion Gap 10 L Estim Creat Clear Calc 126.7 Estimated GFR > 60 Random Glucose 82 Calcium 7.4 L D Urine Color Yellow Urine Appearance Cloudy Urine pH 6.5 Ur Specific [place] 1.015 Urine Protein 100 (2+) H Urine Glucose (UA) Negative Urine Ketones Trace Urine Blood Moderate (2+) H Urine Nitrite Negative Ur Leukocyte Esterase Negative Urine RBC >20 H Urine WBC 0-5 Ur Squamous Epith Cells 11-20 Urine Bacteria None Seen Hyaline Casts 0-2 Random Vancomycin 7.9 L Urine Opiates Screen POSITIVE H Ur Buprenorphine Scrn Not Detected Ur Oxycodone Screen Not Detected Urine Methadone Screen Positive H Urine Fentanyl Screen POSITIVE H Ur Barbiturates Screen Not Detected Ur Phencyclidine Scrn Not Detected Ur Amphetamines Screen POSITIVE H U Benzodiazepines Scrn POSITIVE H Urine Cocaine Screen POSITIVE H U Marijuana (THC) Screen Not Detected Microbiology Microbiology Results: Microbiology 04/02/25 17:51 Blood Culture - Preliminary Blood - Venous Staphylococcus aureus 04/03/25 21:00 Gram Stain - Final Arm Right Routine Culture - Preliminary Culture in progress. 04/03/25 21:00 Gram Stain - Final Arm Right Routine Culture - Preliminary Culture in progress. 04/02/25 17:50 Blood Culture - Preliminary Blood - Venous Staphylococcus aureus Assessment and Plan (1) Anxiety: Status: Acute (2) Depression: Status: Acute (3) Substance use disorder: Status: Acute (4) IV drug abuse: Status: Acute (5) GERD (gastroesophageal reflux disease): Status: Acute (6) Cellulitis: Status: Acute (7) Abscess of right upper arm and forearm: Status: Acute (8) Sepsis: Status: Acute (9) Myositis: Status: Acute Plan 34 yo female with PMH IVDU c/b hx overdose on methadone, xylozene infection L forearm, depression/ anxiety uses xanax and clonidine off the street, presents with swelling of right upper extremity, admitted with sepsis 2/2 right upper extremity abscess and cellulitis with myositis 2/2 IVDU, currently POD 1 I&D by Orthopedic surgery. Sepsis Right upper extremity abscess Right upper extremity cellulitis IVDU Patient met criteria for sepsis noting bandemia 41, lactic acid 2.7 down to 1.8 after IV fluids, tachycardia ESR and CRP both elevated Patient received fluid resuscitation per protocol, 30 mL/kilogram we will continue to receive an hourly rate CT of the right upper extremity confirms cellulitis with extensive myositis and developing ill-defined abscess at the level of the shoulder with reactive right axillary adenopathy No evidence of necrotizing fasciitis on CT scan S/P I&D by general surgery 04/03/25 - no complications Has improved since intervention PLAN - orthopedic input appreciated - infectious diseases consultation placed - continue vancomycin - continue Zosyn - follow up blood cultures - follow up culture abscess drainage - ECHO ordered to evaluate for endocarditis - Neurovascular checks ordered of right upper extremity Myositis Continue IV antibiotics as above Continue IV fluids Ortho consultation in place s/p POD1 I&D of right upper extremity Elevating arm and applying ice as tolerated, ice will not be applied directly to the skin Mild hyponatremia - resolved - Trend BMP GERD - Protonix b.i.d. - Monitor H&H Constipation - Milk of magnesia UTE Patient normally on methadone 130 mg per day, confirmation pending Patient did take her methadone today 04/02/2025 Cows ordered Valium p.r.n. (patient uses street Xanax and clonidine) Addiction Service consulted Depression/anxiety Chronic in nature without help in the community Patient denies any SI, HI or hallucinations No 1-1 indicated at this time Valium PRN QUALITY METRICS - VTE: Enoxaparin - CODE STATUS: Full code - DIET: Regular diet Total time managing care of this patient today: 35 minutes. Quality Stroke Does the patient have a stroke diagnosis?: No Reason for No Anti-thrombotic by Day Two: Contraindicated VTE Prior VTE?: No VTE Risk Level:: Medical - moderate - high VTE Device Contraindication: N/A - Device Ordered VTE Drug Contraindication: N/A - Med Ordered
--- NOTE | 2025-04-04 15:16 | MHC.CM.PN ---
PER ROUNDS PT NOT BEING DCD TODAY DC PLANS REMAIN HOME
--- NOTE | 2025-04-04 15:17 | P.CNID_ITS ---
History of Present Illness Data of Consult Service Date: 04/04/25 Requesting physician: Ronny Mcneil Primary Care Provider: None Physician HPI Reason for consult: arm infection,staph aureus bacteremia She presents with bilateral arm discomfort,redness. She has no pulse 94 and temperature 100.5. She has staph aureus blood x 1. Review of Systems 2 Review of Systems: Yes all other systems are reviewed and are negative PMFSH Past Medical History Medical History Toxic effect of xylazine History of drug overdose Depression Anxiety IV drug abuse Substance use disorder Surgical History Surgical History History of tonsillectomy and adenoidectomy Hx of section Social History Social History Household Members: Significant Other Housing: House Do you presently have visiting nurse or other home services: No Patient Tobacco Use Status: Current someday Tobacco user Substance Use Type: Crack/Cocaine, Heroin and Marijuana service: No Travel History Ebola Risk: Travel/Contact With Anyone From Affected Area/s: No Has Patient Experienced Ebola Symptoms: No Meds Allergies Allergy/AdvReac Type Severity Reaction Status Date / Time No Known Allergies Allergy Verified 04/02/25 13:13 Active Medications: Current Medications Acetaminophen (Acetaminophen 325 Mg Tablet) 650 mg PO Q6H PRN PRN Reason: Pain, Mild 1-3,fever,headache Last Admin: 04/04/25 03:27 Dose: 650 mg Albuterol/Ipratropium (Albuterol/Iprat 2.5/0.5mg 3 Ml Ampul.Neb) 3 ml INHALE Q4H PRN PRN Reason: Shortness of Breath/Wheezing Calcium Carbonate (Calcium Carbonate 750 Mg Tab.Chew) 750 mg PO Q4H PRN PRN Reason: Heartburn Enoxaparin Sodium (Enoxaparin Sodium 40 Mg/0.4 Ml Syringe) 40 mg SUBCUT Q24H [facility] Last Admin: 04/03/25 23:29 Dose: 40 mg Hydroxyzine HCl (Hydroxyzine Hcl 50 Mg Tablet) 50 mg PO Q6H PRN PRN Reason: anxiety/restlessness Sodium Chloride (Ns) 1,000 mls @ 100 mls/hr IVCONT .Q10H [facility] Last Admin: 04/04/25 08:52 Dose: 100 mls/hr Vancomycin HCl 1,250 mg/ (Sodium Chloride) 250 mls @ 166.667 mls/hr IV Q8H [facility] Last Infusion: 04/04/25 10:25 Dose: Infused Ketorolac Tromethamine (Ketorolac Tromethamine 15 Mg/Ml Vial) 15 mg IVPUSH Q6H PRN PRN Reason: Pain, Moderate(Pain Scale 4-6) Last Admin: 04/04/25 13:09 Dose: 15 mg Magnesium Hydroxide (Milk Of Magnesia 30 Ml Oral.Susp) 30 ml PO DAILY PRN PRN Reason: Constipation Melatonin (Melatonin 3 Mg Tablet) 6 mg PO BEDTIME PRN PRN Reason: Insomnia Methadone HCl (Methadone Hcl 20 Mg/2 Ml Oral.Conc) 130 mg PO DAILY@0800 [facility] Last Admin: 04/04/25 08:55 Dose: 130 mg Morphine Sulfate (Morphine Sulfate 2 Mg/Ml Cartridge) 2 mg IVPUSH Q4H PRN; Protocol PRN Reason: Pain, Severe (Pain Scale 7-10) Last Admin: 04/03/25 11:45 Dose: 2 mg Naloxone HCl (Naloxone Hcl 0.4 Mg/Ml Vial) 0.04 mg IVPUSH Q5M PRN PRN Reason: Excessive sedation or RR < 8 Nicotine Polacrilex (Nicotine Polacrilex 2 Mg Gum) 2 mg BUCCAL Q2H PRN PRN Reason: Nicotine Cravings Ondansetron HCl (Ondansetron Hcl 4 Mg/2 Ml Vial) 4 mg IVPUSH Q8H PRN PRN Reason: Nausea and Vomiting Pantoprazole Sodium (Pantoprazole Sodium 40 Mg/10 Ml Vial) 40 mg IVPUSH DAILY@0630 [facility] Last Admin: 04/04/25 06:07 Dose: 40 mg Pharmacy Consult (Consult Rx Vancomycin Dosing) 1 each MISCELLANE DAILY PRN PRN Reason: Consult order Polyethylene Glycol (Polyethylene Glycol 3350 17 Gm Powd.Pack) 17 gm PO DAILY PRN PRN Reason: Constipation Sodium Chloride (0.9 % Sodium Chloride Flush 3 Ml Syringe) 3 ml IVFLUSH QSHIFT [facility] Last Admin: 04/04/25 14:58 Dose: Not Given Sodium Chloride (0.9 % Sodium Chloride Flush 3 Ml Syringe) 3 ml IVFLUSH QSHIFT [facility] Last Admin: 04/04/25 14:58 Dose: Not Given Home Medications ?Medication ?Instructions ?Recorded ?Confirmed ?Last Taken ?Type dextroamphetamine-amphetamine 20 20 mg PO DAILY 04/03/25 2 Days Ago History mg tablet (Adderall) ~04/01/25 dextroamphetamine-amphetamine 5 mg 5 mg PO DAILY@1200, 2100 04/03/25 04/03/25 2 Days Ago History tablet (Adderall) ~04/01/25 ibuprofen 200 mg tablet 400 mg PO Q6H PRN Pain 04/0304/03/25 Unknown History methadone 10 mg/mL oral 130 mg PO DAILY 04/03/2508/2704/02/25 11:46 History concentrate (Methadone Intensol) Physical Exam 2 Vital Signs: Vital Signs: Last Vital Signs Temp 98.1 F 04/04/25 15:15 Pulse 94 04/04/25 15:15 Resp 18 04/04/25 15:15 BP 123/74 04/04/25 15:15 Pulse Ox 95 04/04/25 15:15 O2 Del Method Room Air 04/04/25 15:15 O2 Flow Rate 2 04/03/25 09:35 BMI result Body Mass Index 27.8 Const: General: cooperative HEENT: Head: Yes normal to inspection Face and sinus: Yes normal facial exam Mouth: Normal oral and palatal mucosa present Teeth and gingiva: d entition normal Eyes: General: appearance normal, both eyes and all related structures P upils: Equal, round and reactive pupils present Resp: Effort & Inspection: normal respiratory effort Cardio: Rate: regular rate Rhythm: regular rhythm GI: Palpation (GI): Soft to palpation and nontender : General: Yes no CVA tenderness Back/Spine/Pelvis: Back: no CVA tenderness Skin: General skin exam: no rashes or lesions noted Neuro: General: moves all extremities Cranial nerves: Yes Equal, round and reactive pupils present Extrem: Other: arms wrapped Psych: Appearance: grossly normal Results Labs 04/04/25 07:23 04/04/25 07:23 Labs: Short CBC 04/04/25 Range/Units 07:23 WBC 4.3 L (4.8-10.8) X10*3/uL Hgb 8.9 L (12.0-16.0) g/dl Hct 25.9 L (37.0-47.0) % Plt Count 235 (160-400) X10*3/uL BMP 04/04/25 07:23 Sodium 135 Potassium 3.0 L D Chloride 105 Carbon Dioxide 23 BUN 9 Creatinine 0.58 Calcium 7.4 L D Urine 04/04/25 Range/Units 04:32 Urine Color Yellow Urine Appearance Cloudy Urine pH 6.5 (5.0-9.0) Ur Specific [place] 1.015 (1.005-1.025) Urine Protein 100 (2+) H (Neg-Trace) mg/dL Urine Glucose (UA) Negative (Negative) mg/dL Microbiology Microbiology Results: Microbiology 04/02/25 17:51 Blood - Venous Blood Culture - Preliminary Staphylococcus aureus 04/03/25 21:00 Arm Right Gram Stain - Final 04/03/25 21:00 Arm Right Routine Culture - Preliminary Culture in progress. 04/03/25 21:00 Arm Right Gram Stain - Final 04/03/25 21:00 Arm Right Routine Culture - Preliminary Culture in progress. 04/02/25 17:50 Blood - Venous Blood Culture - Preliminary Staphylococcus aureus Assessment and Plan (1) IV drug abuse: Status: Acute (2) Opioid use disorder, severe, dependence: Status: Acute (3) Cellulitis: Qualifiers: Laterality: right Site of cellulitis: extremity Site of cellulitis of extremity: upper extremity Qualified Code(s): L03.113 - Cellulitis of right upper limb Status: Acute Plan She has bacteremia. 4 weeks IV antibiotics,depends on culture results, either Kefzol or Vancomycin or Daptomycin. Check echo evaluate endocarditis. Hepatitis C viral load
[2025-04-05] VITALS (11 sets, daily range): BP systolic 129–180; BP diastolic 76–83; PULSE 88–100; RESP 16–18; TEMP 36.7–37.6; O2SAT 92–94
[2025-04-05 07:18] LABS: Hematocrit 31.3 % (37.0-47.0); Hemoglobin 10.5 g/dl (12.0-16.0); Mean Corpuscular HGB Conc 33.5 g/dl (31.0-35.0); Mean Corpuscular Hemoglobin 24.9 pg (27.0-33.0); Mean Corpuscular Volume 74.2 fL (80.0-98.0); NRBC Abs Auto 0.000 X10*3/uL (0.0-0.012); NRBC Pct Auto 0.0 /100WBC (0.0-0.2); PLT CLUMP 1; Red Blood Count 4.22 X10*6/uL (4.20-5.50); WBC ABN SCTR FOR CBC 1
[2025-04-05] MEDS: 0.9 % Sodium Chloride Flush 3 ML SYRINGE IVFLUSH ×3 (07:38→21:32)
[2025-04-05 07:43] LABS: Anion Gap 10 (12-20); Blood Urea Nitrogen 9 mg/dL (9-16); Calcium 7.6 mg/dL (8.4-10.2); Carbon Dioxide 20 mmol/L (22-29); Chloride 109 mmol/L (96-108); Creatinine Clr Calc Pharmacy 122.5; Estimated Glomerular Filt Rate > 60; Potassium 3.2 mmol/L (3.3-5.1); Sodium 136 mmol/L (135-145)
[2025-04-05] MEDS: methADONE HCl 20 MG/2 ML ORAL.CONC 130 MG PO (07:45)
[2025-04-05 07:47] LABS: Band Neutrophils Percent 26 % (3-5); Eosinophils Percent Manual 3 % (0-4); Monocytes Percent Manual 10 % (2-11); Neutrophils Percent Manual 44 % (45-73)
[2025-04-05 07:48] LABS: Atypical Lymphs Percent Manual 1 % (0-6); Lymphocytes Percent Manual 16 % (20-40)
[2025-04-05 07:49] LABS: RBC Morphology NOTED
[2025-04-05 07:51] LABS: Acanthocytes 1+ (0-2) /OIF; Burr Cells 3+ (>5) /OIF; Ovalocytes 1+ (5-14) /OIF
[2025-04-05 07:52] LABS: Dohle Bodies PRESENT; Toxic Granulation PRESENT
[2025-04-05 07:53] LABS: Atypical Lymph Absolute Manual 0.1 x10*3/uL; Eosinophils Absolute Manual 0.3 X10*3/uL (0.0-0.4); Lymphocytes Absolute Manual 1.6 X10*3/uL (1.2-4.9); Monocytes Absolute Manual 1.0 X10*3/uL (0.1-1.2); Neutrophils Absolute Manual 6.9 X10*3/uL (2.0-8.3); Platelet Count 289 X10*3/uL (160-400); White Blood Count 9.8 X10*3/uL (4.8-10.8)
--- NOTE | 2025-04-05 10:53 | PM.PNORT ---
Subjective Subjective Date of Service: 04/05/25 Interval history: POD 2 s/p I&D right arm No overnight events resting in bed asleep-arousable but falls back to sleep pain managed Physical Exam Vital Signs: Vital Signs: Last Vital Signs Temp 98.0 F 04/05/25 07:21 Pulse 89 04/05/25 07:43 Resp 18 04/05/25 07:21 BP 139/81 04/05/25 07:43 Pulse Ox 94 04/05/25 07:21 O2 Del Method Room Air 04/05/25 07:21 O2 Flow Rate 2 04/03/25 09:35 BMI result Body Mass Index 27.8 Extrem: Other: Right arm with diffuse swelling Incision is clean dry and intact no drainage she has good sensation and pulses are intact Procedures Date of Service Date of Service: 04/05/25 Progress Note: A&P Assessment and plan (1) Abscess of right upper arm and forearm: Status: Acute Assessment and Plan: Dry dressing changes prn OT for ROM Cultuires pending ID consult rec IV abx out patient ortho f/u 1 week once discharged Time Spent With Patient Time: Total time managing care of this patient today ____ minutes. Quality Stroke Does the patient have a stroke diagnosis?: No Reason for No Anti-thrombotic by Day Two: Contraindicated VTE Prior VTE?: No VTE Risk Level:: Medical - moderate - high VTE Device Contraindication: N/A - Device Ordered VTE Drug Contraindication: N/A - Med Ordered
--- NOTE | 2025-04-05 11:58 | MHC.RECOVRN ---
T/W went to meet with pt. in - to offer support, assess pain control and assist with RC if interested. Pt resting comfortable. Did not attempt to awaken. Will F/U later today or tomorrow.
--- NOTE | 2025-04-05 12:06 | MHC.CM.PN ---
PER ID NOTE, PT WILL NEED 4 WEEKS OF IV ABX REFERRALS MADE TO [facility] AND [facility] ALL HAVE CLINICALLY ACCEPTED AND WILL FOLLOW FOR BED AVAILABILITY GUEST DOSING ARRANGEMENTS WILL BE INITIATED ON MONDAY, PTS HOME CLINIC IS [facility] IN [place] SHE WILL NEED A LESS THAN 30 DAY ORDER IN [place] SHE WILL NEED BLS TRANSPORT
--- NOTE | 2025-04-05 12:43 | HO.PM.IMPN ---
Subjective Subjective Date of Service: 04/05/25 Interval History: Endorses pain at the right shoulder and arm today; improved from yesterday Reports increased swelling in the right arm down to the hand Superficial skin touch has felt normal today, as compared to yesterday where touching the skin elucidated much more pain. Despite present swelling, the patient is able to move her fingers, sensation is normal, no discoloration of fingertips Review of Systems Review of Systems: Yes all other systems are reviewed and are negative Physical Exam Exam: Exam: General: A&O x3, oriented to time place person and situation, comfortable, no pain Cardiac: S1, S2 auscultated with no S3/4, no MRG. Well perfused. Respiratory: Normal breath sounds auscultated throughout all lung zones, without wheezing, rales. Normal rate. GI/ : No abdominal pain on palpation, no masses or distentions. MSK: Right shoulder and upper extremity swollen, erythematous, improved tenderness to palpation light and deep, reduced ROM - normal peripheral sensation, normal pulses. Neurological: Normal neurological examination on overview, without obvious CN II-XII abnormalities. Vital Signs: Vital Signs: Last Vital Signs Temp 98.0 F 04/05/25 07:21 Pulse 88 04/05/25 08:00 Resp 18 04/05/25 07:21 BP 139/81 04/05/25 07:43 Pulse Ox 94 04/05/25 07:21 O2 Del Method Room Air 04/05/25 07:21 O2 Flow Rate 2 04/03/25 09:35 BMI result Body Mass Index 27.8 Objective Data Active Medications Acetaminophen (Acetaminophen 325 Mg Tablet) 650 mg PO Q6H PRN PRN Reason: Pain, Mild 1-3,fever,headache Last Admin: 04/04/25 03:27 Dose: 650 mg Documented By: JUSTIN Albuterol/Ipratropium (Albuterol/Iprat 2.5/0.5mg 3 Ml Ampul.Neb) 3 ml INHALE Q4H PRN PRN Reason: Shortness of Breath/Wheezing Calcium Carbonate (Calcium Carbonate 750 Mg Tab.Chew) 750 mg PO Q4H PRN PRN Reason: Heartburn Enoxaparin Sodium (Enoxaparin Sodium 40 Mg/0.4 Ml Syringe) 40 mg SUBCUT Q24H [facility] Last Admin: 04/04/25 23:26 Dose: 40 mg Documented By: JUSTIN Hydroxyzine HCl (Hydroxyzine Hcl 50 Mg Tablet) 50 mg PO Q6H PRN PRN Reason: anxiety/restlessness Vancomycin HCl 1,000 mg/ (Sodium Chloride) 270 mls @ 270 mls/hr IV Q8H [facility] Ketorolac Tromethamine (Ketorolac Tromethamine 15 Mg/Ml Vial) 15 mg IVPUSH Q6H PRN PRN Reason: Pain, Moderate(Pain Scale 4-6) Last Admin: 04/05/25 05:56 Dose: 15 mg Documented By: JUSTIN Magnesium Hydroxide (Milk Of Magnesia 30 Ml Oral.Susp) 30 ml PO DAILY PRN PRN Reason: Constipation Melatonin (Melatonin 3 Mg Tablet) 6 mg PO BEDTIME PRN PRN Reason: Insomnia Methadone HCl (Methadone Hcl 20 Mg/2 Ml Oral.Conc) 130 mg PO DAILY@0800 [facility] Last Admin: 04/05/25 07:45 Dose: 130 mg Documented By: ROSI Co-signed By: JAYJAY Morphine Sulfate (Morphine Sulfate 2 Mg/Ml Cartridge) 2 mg IVPUSH Q4H PRN; Protocol PRN Reason: Pain, Severe (Pain Scale 7-10) Last Admin: 04/05/25 07:40 Dose: 2 mg Documented By: ROSI Naloxone HCl (Naloxone Hcl 0.4 Mg/Ml Vial) 0.04 mg IVPUSH Q5M PRN PRN Reason: Excessive sedation or RR < 8 Nicotine Polacrilex (Nicotine Polacrilex 2 Mg Gum) 2 mg BUCCAL Q2H PRN PRN Reason: Nicotine Cravings Ondansetron HCl (Ondansetron Hcl 4 Mg/2 Ml Vial) 4 mg IVPUSH Q8H PRN PRN Reason: Nausea and Vomiting Pantoprazole Sodium (Pantoprazole Sodium 40 Mg/10 Ml Vial) 40 mg IVPUSH DAILY@0630 [facility] Last Admin: 04/05/25 05:39 Dose: 40 mg Documented By: JUSTIN Pharmacy Consult (Consult Rx Vancomycin Dosing) 1 each MISCELLANE DAILY PRN PRN Reason: Consult order Polyethylene Glycol (Polyethylene Glycol 3350 17 Gm Powd.Pack) 17 gm PO DAILY PRN PRN Reason: Constipation Sodium Chloride (0.9 % Sodium Chloride Flush 3 Ml Syringe) 3 ml IVFLUSH QSHIFT [facility] Last Admin: 04/05/25 07:38 Dose: 3 ml Documented By: ROSI Sodium Chloride (0.9 % Sodium Chloride Flush 3 Ml Syringe) 3 ml IVFLUSH QSHIFT [facility] Last Admin: 04/05/25 07:40 Dose: Not Given Documented By: ROSI Non-Admin Reason: Previously Administered Labs 04/05/25 07:04 04/05/25 07:04 Labs: Laboratory Results - last 24 hr 04/05/25 07:04 MCV 74.2 L MCH 24.9 L MCHC 33.5 RDW 15.3 Plt Count 289 MPV 10.2 Immature Gran % (Auto) Cancelled Neut % (Auto) Cancelled Lymph % (Auto) Cancelled [place] % (Auto) Cancelled Eos % (Auto) Cancelled Baso % (Auto) Cancelled Lymph # (Auto) Cancelled [place] # (Auto) Cancelled Eos # (Auto) Cancelled Baso # (Auto) Cancelled Abs Immat Gran (auto) Cancelled Absolute Neuts (auto) Cancelled Absolute Nucleated RBC 0.000 Nucleated RBC % (auto) 0.0 Neutrophils % (Manual) 44 L Band Neutrophils % 26 H Lymphocytes % (Manual) 16 L Atypical Lymphs % (Man) 1 Monocytes % (Manual) 10 Eosinophils % (Manual) 3 Abs Neuts (Manual) 6.9 Lymphocytes # (Manual) 1.6 Atyp Lymphs # (Manual) 0.1 Monocytes # (Manual) 1.0 Eosinophils # (Manual) 0.3 Toxic Granulation PRESENT Dohle Bodies PRESENT Platelet Estimate NORMAL Plt Morphology Comment NORMAL RBC Morphology NOTED Ovalocytes 1+ (5-14) Glenn Cells 3+ (>5) Acanthocytes (Spur) 1+ (0-2) Anion Gap 10 L Estim Creat Clear Calc 122.5 Estimated GFR > 60 Random Glucose 101 Calcium 7.6 L Random Vancomycin 21.5 H Microbiology Microbiology Results: Microbiology 04/03/25 21:00 Gram Stain - Final Arm Right Routine Culture - Preliminary Staphylococcus aureus 04/03/25 21:00 Gram Stain - Final Arm Right Routine Culture - Preliminary Staphylococcus aureus 04/02/25 17:51 Blood Culture - Final Blood - Venous Methicillin Res Staph Aureus 04/02/25 17:50 Blood Culture - Final Blood - Venous Methicillin Res Staph Aureus Assessment and Plan (1) Substance use disorder: Status: Acute (2) IV drug abuse: Status: Acute (3) Opioid use disorder, severe, dependence: Status: Acute (4) GERD (gastroesophageal reflux disease): Status: Acute (5) Cellulitis: Status: Acute (6) Sepsis: Status: Acute (7) Abscess of right upper arm and forearm: Status: Acute (8) Myositis: Status: Acute Plan 34 yo female with PMH IVDU c/b hx overdose on methadone, xylozene infection L forearm, depression/ anxiety uses xanax and clonidine off the street, presents with swelling of right upper extremity, admitted with sepsis 2/2 right upper extremity abscess and cellulitis with myositis 2/2 IVDU, currently POD 2 I&D by Orthopedic surgery. Sepsis Right upper extremity abscess Right upper extremity cellulitis IVDU Patient met criteria for sepsis noting bandemia 41, lactic acid 2.7 down to 1.8 after IV fluids, tachycardia ESR and CRP both elevated Patient received fluid resuscitation per protocol, 30 mL/kilogram we will continue to receive an hourly rate CT of the right upper extremity confirms cellulitis with extensive myositis and developing ill-defined abscess at the level of the shoulder with reactive right axillary adenopathy No evidence of necrotizing fasciitis on CT scan S/P I&D by general surgery 04/03/25 - no complications Has improved since intervention PLAN - orthopedic input appreciated - infectious diseases consultation placed - continue vancomycin - continue Zosyn - follow up blood cultures - follow up culture abscess drainage - ECHO ordered to evaluate for endocarditis - Neurovascular checks ordered of right upper extremity Myositis Continue IV antibiotics as above Continue IV fluids Ortho consultation in place s/p POD2 I&D of right upper extremity Elevating arm and applying ice as tolerated, ice will not be applied directly to the skin Mild hyponatremia - resolved - Trend BMP GERD - Protonix b.i.d. - Monitor H&H Constipation - Milk of magnesia UTE Patient normally on methadone 130 mg per day, confirmation pending Patient did take her methadone today 04/02/2025 Cows ordered Valium p.r.n. (patient uses street Xanax and clonidine) Addiction Service consulted Depression/anxiety Chronic in nature without help in the community Patient denies any SI, HI or hallucinations No 1-1 indicated at this time Valium PRN QUALITY METRICS - VTE: Enoxaparin - CODE STATUS: Full code - DIET: Regular diet Quality Stroke Does the patient have a stroke diagnosis?: No Reason for No Anti-thrombotic by Day Two: Contraindicated VTE Prior VTE?: No VTE Risk Level:: Medical - moderate - high VTE Device Contraindication: N/A - Device Ordered VTE Drug Contraindication: N/A - Med Ordered
--- NOTE | 2025-04-05 16:38 | MHC.RECOVRN ---
T/W met [facility] pt. in - to assess pain control and offer support with recovery resources. Pt sitting up in bed with boyfriend and another friend in the room (advocate). Pt gave t/w authorization to speak freely in front of the visitors. Pt reports good pain control. She is using the Tramadol Q 8.5 hours and the morphine Q5.5 hours. T/W educated pt. on the fact that med was PRN (she needs to request) and on the frequency she can have if needed. Pt's right upper ext. very edematous and red. Education provided to pt re: IVDU effects on body sx including endocarditis and sepsis. Pt declines need for recovery resources at this time. Pt declines RC at this time but agreed to let me leave paper and re visit with her tomorrow. T/W to f/u with pt. tomorrow ACS available PRN
[2025-04-05] MEDS: Lactated Ringers 1,000 ML 100 ML IVCONT (21:31)
[2025-04-06] VITALS (8 sets, daily range): BP systolic 128–133; BP diastolic 79–88; PULSE 88–103; RESP 14–18; TEMP 36.6–37.5; O2SAT 92–98
--- NOTE | 2025-04-06 05:06 | PC.NURSE ---
Addendum entered by Eli Adrian RN 04/06/25 05:11: Pt edema in left hand has increased and extended to lower left arm. Messaged MD Robbie Cruz about this increasing edema to left hand and she responded will defer to attending MD to assess this , she advised to elevate extremity. Extremities are elevated and I will continue to monitor patient. Original Note: Pt edema in left hand has increased and extended to lower left arm. Messaged MD Robbie Cruz about this increasing edema to left hand and she responded will defer to attending MD to assess this . Extremities are elevated and I will continue to monitor patient.
--- NOTE | 2025-04-06 05:27 | PC.NURSE ---
Patient's initial non pitting edema to the left hand has increased significantly and has extended to lower left arm. MD Avalos notified about this increasing edema to left hand, she advised to elevate extremity and will defer to attending. Upper extremities are elevated and I will continue to monitor patient.
[2025-04-06] MEDS: methADONE HCl 20 MG/2 ML ORAL.CONC 130 MG PO (08:21)
--- NOTE | 2025-04-06 09:26 | PM.PNORT ---
Subjective Subjective Date of Service: 04/06/25 Interval history: POD 3 s/p I&D right arm No overnight events resting in bed complaining of discomfort in right upper extremity and left arm Physical Exam Vital Signs: Vital Signs: Last Vital Signs Temp 97.8 F 04/06/25 07:44 Pulse 88 04/06/25 07:44 Resp 18 04/06/25 07:44 BP 128/79 04/06/25 07:44 Pulse Ox 94 04/06/25 08:13 O2 Del Method Room Air 04/06/25 08:13 O2 Flow Rate 2 04/06/25 07:44 BMI result Body Mass Index 27.8 Extrem: Other: Right arm with diffuse swelling more in the humerus then forearm Incision is clean dry and intact no drainage she has good sensation and pulses are intact Procedures Date of Service Date of Service: 04/06/25 Progress Note: A&P Assessment and plan (1) Abscess of right upper arm and forearm: Status: Acute Assessment and Plan: Dry dressing changes prn OT for ROM Cultuires MRSA positive ID consult rec IV abx Spoke with hospitalist they are obtaining imaging studies of bilateral upper extremities due to swelling out patient ortho f/u 1 week once discharged Time Spent With Patient Time: Total time managing care of this patient today ____ minutes. Quality Stroke Does the patient have a stroke diagnosis?: No Reason for No Anti-thrombotic by Day Two: Contraindicated VTE Prior VTE?: No VTE Risk Level:: Medical - moderate - high VTE Device Contraindication: N/A - Device Ordered VTE Drug Contraindication: N/A - Med Ordered
[2025-04-06 09:31] LABS: Hematocrit 25.7 % (37.0-47.0); Hemoglobin 9.0 g/dl (12.0-16.0); Mean Corpuscular HGB Conc 35.0 g/dl (31.0-35.0); Mean Corpuscular Hemoglobin 25.2 pg (27.0-33.0); Mean Corpuscular Volume 72.0 fL (80.0-98.0); NRBC Abs Auto 0.000 X10*3/uL (0.0-0.012); NRBC Pct Auto 0.0 /100WBC (0.0-0.2); PLT CLUMP 1; Red Blood Count 3.57 X10*6/uL (4.20-5.50)
[2025-04-06 09:37] LABS: Platelet Count 339 X10*3/uL (160-400); White Blood Count 12.7 X10*3/uL (4.8-10.8)
[2025-04-06 10:06] LABS: Anion Gap 10 (12-20); Blood Urea Nitrogen 8 mg/dL (9-16); Calcium 7.4 mg/dL (8.4-10.2); Carbon Dioxide 25 mmol/L (22-29); Chloride 103 mmol/L (96-108); Creatinine Clr Calc Pharmacy 124.5; Estimated Glomerular Filt Rate > 60; Potassium 2.8 mmol/L (3.3-5.1); Sodium 135 mmol/L (135-145)
[2025-04-06 10:16] LABS: Band Neutrophils Percent 3 % (3-5); Eosinophils Absolute Manual 0.4 X10*3/uL (0.0-0.4); Eosinophils Percent Manual 3 % (0-4); Lymphocytes Absolute Manual 1.8 X10*3/uL (1.2-4.9); Lymphocytes Percent Manual 14 % (20-40); Monocytes Absolute Manual 0.8 X10*3/uL (0.1-1.2); Monocytes Percent Manual 6 % (2-11); Neutrophils Absolute Manual 9.8 X10*3/uL (2.0-8.3); Neutrophils Percent Manual 74 % (45-73)
[2025-04-06 10:18] LABS: Dohle Bodies PRESENT; Large Platelet PRESENT; Ovalocytes 1+ (5-14) /OIF; RBC Morphology NOTED
[2025-04-06] MEDS: Potassium Chloride Packet 20 MEQ PACKET 40 MEQ PO (10:23)
--- NOTE | 2025-04-06 10:25 | P.PNIM_ITS ---
Subjective Subjective Date of Service: 04/06/25 Interval History: Reporting pain in the bilateral upper extremities. Reports that her left forearm and left hand are more swollen since yesterday. Reports that she has worsening and increasing pain compared to yesterday at the right shoulder and right humerus. Review of Systems Review of Systems: Yes all other systems are reviewed and are negative Physical Exam 2 Exam: Exam: General: A&O x3, oriented to time place person and situation, comfortable, no pain Cardiac: S1, S2 auscultated with no S3/4, no MRG. Well perfused. Respiratory: Normal breath sounds auscultated throughout all lung zones, without wheezing, rales. Normal rate. GI/ : No abdominal pain on palpation, no masses or distentions. MSK: Right shoulder and upper extremity swollen, erythematous, improved tenderness to palpation light and deep, reduced ROM - normal peripheral sensation, normal pulses. Swollen left hand, wrist and forearm. No evidence of neurovascular compromise of the right or left upper extremities Neurological: Normal neurological examination on overview, without obvious CN II-XII abnormalities. Vital Signs: Vital Signs: Last Vital Signs Temp 97.8 F 04/06/25 07:44 Pulse 88 04/06/25 07:44 Resp 18 04/06/25 07:44 BP 128/79 04/06/25 07:44 Pulse Ox 94 04/06/25 08:13 O2 Del Method Room Air 04/06/25 08:13 O2 Flow Rate 2 04/06/25 07:44 BMI result Body Mass Index 27.8 Objective Data Active Medications Acetaminophen (Acetaminophen 325 Mg Tablet) 650 mg PO Q6H PRN PRN Reason: Pain, Mild 1-3,fever,headache Last Admin: 04/04/25 03:27 Dose: 650 mg Documented By: JUSTIN Albuterol/Ipratropium (Albuterol/Iprat 2.5/0.5mg 3 Ml Ampul.Neb) 3 ml INHALE Q4H PRN PRN Reason: Shortness of Breath/Wheezing Calcium Carbonate (Calcium Carbonate 750 Mg Tab.Chew) 750 mg PO Q4H PRN PRN Reason: Heartburn Enoxaparin Sodium (Enoxaparin Sodium 40 Mg/0.4 Ml Syringe) 40 mg SUBCUT Q24H [facility] Last Admin: 04/05/25 23:11 Dose: 40 mg Documented By: JUSTIN Hydroxyzine HCl (Hydroxyzine Hcl 50 Mg Tablet) 50 mg PO Q6H PRN PRN Reason: anxiety/restlessness Vancomycin HCl 1,000 mg/ (Sodium Chloride) 270 mls @ 270 mls/hr IV Q8H [facility] Last Infusion: 04/06/25 06:23 Dose: Infused Documented By: JUSTIN Ketorolac Tromethamine (Ketorolac Tromethamine 15 Mg/Ml Vial) 15 mg IVPUSH Q6H PRN PRN Reason: Pain, Moderate(Pain Scale 4-6) Last Admin: 04/06/25 08:34 Dose: 15 mg Documented By: ROSI Magnesium Hydroxide (Milk Of Magnesia 30 Ml Oral.Susp) 30 ml PO DAILY PRN PRN Reason: Constipation Melatonin (Melatonin 3 Mg Tablet) 6 mg PO BEDTIME PRN PRN Reason: Insomnia Methadone HCl (Methadone Hcl 20 Mg/2 Ml Oral.Conc) 130 mg PO DAILY@0800 [facility] Last Admin: 04/06/25 08:21 Dose: 130 mg Documented By: ROSI Co-signed By: DIETER Morphine Sulfate (Morphine Sulfate 2 Mg/Ml Cartridge) 2 mg IVPUSH Q4H PRN; Protocol PRN Reason: Pain, Severe (Pain Scale 7-10) Last Admin: 04/05/25 13:10 Dose: 2 mg Documented By: ROSI Naloxone HCl (Naloxone Hcl 0.4 Mg/Ml Vial) 0.04 mg IVPUSH Q5M PRN PRN Reason: Excessive sedation or RR < 8 Nicotine Polacrilex (Nicotine Polacrilex 2 Mg Gum) 2 mg BUCCAL Q2H PRN PRN Reason: Nicotine Cravings Ondansetron HCl (Ondansetron Hcl 4 Mg/2 Ml Vial) 4 mg IVPUSH Q8H PRN PRN Reason: Nausea and Vomiting Pharmacy Consult (Consult Rx Vancomycin Dosing) 1 each MISCELLANE DAILY PRN PRN Reason: Consult order Polyethylene Glycol (Polyethylene Glycol 3350 17 Gm Powd.Pack) 17 gm PO DAILY PRN PRN Reason: Constipation Sodium Chloride (0.9 % Sodium Chloride Flush 3 Ml Syringe) 3 ml IVFLUSH QSHICHI [facility] Last Admin: 04/06/25 07:27 Dose: Not Given Documented By: ROSI Non-Admin Reason: IV Running Sodium Chloride (0.9 % Sodium Chloride Flush 3 Ml Syringe) 3 ml IVFLUSH QSHIFT [facility] Last Admin: 04/06/25 07:27 Dose: Not Given Documented By: ROSI Non-Admin Reason: IV Running Labs 04/06/25 09:11 04/06/25 09:11 Labs: Laboratory Results - last 24 hr 04/06/25 09:11 MCV 72.0 L MCH 25.2 L MCHC 35.0 RDW 15.7 Plt Count 339 MPV 10.3 Immature Gran % (Auto) Cancelled Neut % (Auto) Cancelled Lymph % (Auto) Cancelled Rincon % (Auto) Cancelled Eos % (Auto) Cancelled Baso % (Auto) Cancelled Lymph # (Auto) Cancelled Rincon # (Auto) Cancelled Eos # (Auto) Cancelled Baso # (Auto) Cancelled Abs Immat Gran (auto) Cancelled Absolute Neuts (auto) Cancelled Absolute Nucleated RBC 0.000 Nucleated RBC % (auto) 0.0 Neutrophils % (Manual) 74 H Band Neutrophils % 3 Lymphocytes % (Manual) 14 L Monocytes % (Manual) 6 Eosinophils % (Manual) 3 Abs Neuts (Manual) 9.8 H Lymphocytes # (Manual) 1.8 Monocytes # (Manual) 0.8 Eosinophils # (Manual) 0.4 Dohle Bodies PRESENT Platelet Estimate NORMAL Large Platelets PRESENT Plt Morphology Comment NOTED RBC Morphology NOTED Ovalocytes 1+ (5-14) Anion Gap 10 L Estim Creat Clear Calc 124.5 Estimated GFR > 60 Random Glucose 132 H Calcium 7.4 L Microbiology Microbiology Results: Microbiology 04/03/25 21:00 Gram Stain - Final Arm Right Routine Culture - Final Methicillin Res Staph Aureus 04/03/25 21:00 Gram Stain - Final Arm Right Routine Culture - Final Methicillin Res Staph Aureus 04/02/25 17:51 Blood Culture - Final Blood - Venous Methicillin Res Staph Aureus 04/02/25 17:50 Blood Culture - Final Blood - Venous Methicillin Res Staph Aureus Assessment and Plan (1) Anxiety: Status: Acute (2) Depression: Status: Acute (3) Substance use disorder: Status: Acute (4) IV drug abuse: Status: Acute (5) Opioid use disorder, severe, dependence: Status: Acute (6) GERD (gastroesophageal reflux disease): Status: Acute (7) Cellulitis: Status: Acute (8) Sepsis: Status: Acute (9) Abscess of right upper arm and forearm: Status: Acute (10) Myositis: Status: Acute Plan 34 yo female with PMH IVDU c/b hx overdose on methadone, xylozene infection L forearm, depression/ anxiety uses xanax and clonidine off the street, presents with swelling of right upper extremity, admitted with sepsis 2/2 right upper extremity abscess and cellulitis with myositis 2/2 IVDU, currently POD 2 I&D by Orthopedic surgery. Sepsis - MRSA+ve Right upper extremity abscess Right upper extremity cellulitis Left arm/ hand swelling IVDU Patient met criteria for sepsis noting bandemia 41, lactic acid 2.7 down to 1.8 after IV fluids, tachycardia ESR and CRP both elevated Patient received fluid resuscitation per protocol, 30 mL/kilogram we will continue to receive an hourly rate CT of the right upper extremity confirms cellulitis with extensive myositis and developing ill-defined abscess at the level of the shoulder with reactive right axillary adenopathy No evidence of necrotizing fasciitis on CT scan S/P I&D by general surgery 04/03/25 - no complications Persistent pain of the right upper and now left hand with new swelling since yesterday. Re-evaluation with CT right and left upper extremities for evidence of infective endocarditis/septic emboli. No evidence for septic emboli, the patient will require a transesophageal echocardiography, as transthoracic ECHO has been unremarkable. PLAN - orthopedic input appreciated - infectious diseases consultation placed - continue vancomycin - Neurovascular checks ordered of right upper extremity - CT right upper and left upper extremities - neurovascular checks bilateral upper extremities Q 6 hourly Myositis Continue IV antibiotics as above Continue IV fluids Ortho consultation in place s/p POD2 I&D of right upper extremity Elevating arm and applying ice as tolerated, ice will not be applied directly to the skin Mild hyponatremia - resolved Hypokalemia - Trend BMP daily - KCl 40 mEq, PO GERD - Protonix b.i.d. - Monitor H&H Constipation - Milk of magnesia UTE Patient normally on methadone 130 mg per day, confirmation pending Patient did take her methadone today 04/02/2025 Cows ordered Valium p.r.n. (patient uses street Xanax and clonidine) Addiction Service consulted Depression/anxiety Chronic in nature without help in the community Patient denies any SI, HI or hallucinations No 1-1 indicated at this time Valium PRN QUALITY METRICS - VTE: Enoxaparin - CODE STATUS: Full code - DIET: Regular diet Total time managing care of this patient today: 45 minutes. Quality Stroke Does the patient have a stroke diagnosis?: No Reason for No Anti-thrombotic by Day Two: Contraindicated VTE Prior VTE?: No VTE Risk Level:: Medical - moderate - high VTE Device Contraindication: N/A - Device Ordered VTE Drug Contraindication: N/A - Med Ordered
[2025-04-06] MEDS: iohexoL 350 MG/ML 100 ML INFUS..BTL IV (11:18)
--- NOTE | 2025-04-06 11:55 | HE.PHANOTE ---
RE VANCO DOSING CONTINUE WITH SAME TREATMENT AT THIS TIME. RENAL FUNCTION STABLE AND TROUGH TODAY COMING DOWN TO 19.3 FROM 21.5 ON 04/05. CONTINUE DAILY RENAL MONITORING. NEXT VANCO LEVEL DUE 04/08 @1100.
--- NOTE | 2025-04-06 12:26 | MHC.RECOVRN ---
Met with pt. in 344 to f/u and offer support Pt has not yet considered RC due to ongoing pain issues and worsening in condition. T/W provided support re: pain management. ACS will F/U re: resources once pt. more medically stable. ACS available PRN
[2025-04-06 15:21] LABS: Anion Gap 13 (12-20); Blood Urea Nitrogen 8 mg/dL (9-16); Calcium 7.7 mg/dL (8.4-10.2); Carbon Dioxide 23 mmol/L (22-29); Chloride 105 mmol/L (96-108); Creatinine Clr Calc Pharmacy 124.5; Estimated Glomerular Filt Rate > 60; Potassium 4.4 mmol/L (3.3-5.1); Sodium 137 mmol/L (135-145)
--- NOTE | 2025-04-06 15:23 | PC.NURSE ---
CT reports available ,Dr. Mcneil made aware
--- NOTE | 2025-04-06 15:46 | PM.EVENT ---
Event Note Date of Service: 04/06/25 Event Note: CT scans of upper extremtiies returned: - multiple abscesses/ phlegmon with superimposed myositis/fasciitis. - Possible necrosis 1. Ortho surgery was contacted again for urgent re-evaluation of UE's; will likely require re; I&D of different locations 2. ID conatcted: no new addition of antibiotics for coverage - continue vancomycin 3. Lab work re-evaluated 4. YANA ordered for more accurate evaluation for IE. Time Spent With Patient Time: Total time managing care of this patient today 30 minutes.
[2025-04-06] MEDS: 0.9 % Sodium Chloride Flush 3 ML SYRINGE IVFLUSH (16:41)
--- NOTE | 2025-04-06 17:18 | PC.NURSE ---
Dr. Mcneil communicated CT results and transfer plan over the phone to patient
[2025-04-06 17:36] LABS: COVID-19 Test Negative (Negative); IDNOW Serial# 55D5AD1C
--- NOTE | 2025-04-06 17:57 | P.DS_ITS ---
DS: Providers Provider Date of Service: 04/06/25 Date of admission: 04/02/25 22:35 Date of discharge: 04/06/25 Primary care physician: None Physician Consults: 04/02/25 23:10 Consult to Infectious Diseases Routine Consulting Provider: [facility] Reason for consultation: IVDA, Right arm cellulitis, abscess, myositis Has provider been notified: No 04/02/25 23:11 Addiction Medicine Provider Routine Consulting Provider: Addiction Covering Reason for consultation: IVDA, asking for help with recovery Has provider been notified: No Consult to General Surgery Routine Consulting Provider: [facility] Reason for consultation: IVDA, R upper arm cellulitis, myositis, abscess on CT no nec fasc DS: Diagnosis Discharge Diagnosis (1) Anxiety: Status: Acute (2) Depression: Status: Acute (3) Substance use disorder: Status: Acute (4) IV drug abuse: Status: Acute (5) Opioid use disorder, severe, dependence: Status: Acute (6) GERD (gastroesophageal reflux disease): Status: Acute (7) Cellulitis: Status: Acute (8) Sepsis: Status: Acute (9) Abscess of right upper arm and forearm: Status: Acute (10) Myositis: Status: Acute DS: Summary Hospital Course Hospital Course: 34 yo female with PMH IVDU c/b hx overdose on methadone, xylozene infection L forearm, depression/ anxiety uses xanax and clonidine off the street, presents with swelling of right upper extremity, admitted with sepsis 2/2 right upper extremity abscess and cellulitis with myositis 2/2 IVDU, currently POD 2 I&D by Orthopedic surgery. PRESENTATION She presents to the hospital after being prompted by her BF to be seen for noted enlargement in right upper arm, with redness and pt now not able to lift or move arm. Pt states she last injected cocaine yesterday. Pt denies any current chills, fever, but is having significant heartburn. Pt states she needs help with her drug use. Pt states she is scared. Patient currently denies any SI, HI or hallucinations. Patient currently denies any marijuana use or alcohol use. ED WORKUP Work up in the ED included XR of left elbow, negative for dislocaiton or fracture and CTA of RUE that notes: 1. Right upper extremity runoff within the visualized arteries. 2. Extensive myositis, cellulitis and developing ill-defined abscess of the level of the shoulder, please see above. 3. Reactive right axillary adenopathy. 4. No evidence of necrotizing fasciitis at this time. Patient does meet the criteria for sepsis on admission tachycardia, lactic acidosis, bandemia with leukocytosis. CXR negative for acute findings. Pt started on Vanco and Zosyn and received fluid resuscitation per sepsis protocol at 30 mls/KG. Pain management continues with toradol, morphine and tylenol prn. Patient receives her methadone from [facility] [place]. PROBLEM LIST Sepsis - MRSA+ve Right upper extremity abscess Right upper extremity cellulitis Left arm/ hand swelling IVDU Patient met criteria for sepsis noting bandemia 41, lactic acid 2.7 down to 1.8 after IV fluids, tachycardia ESR and CRP both elevated Patient received fluid resuscitation per protocol, 30 mL/kilogram we will continue to receive an hourly rate CT of the right upper extremity confirms cellulitis with extensive myositis and developing ill-defined abscess at the level of the shoulder with reactive right axillary adenopathy No evidence of necrotizing fasciitis on CT scan S/P I&D by general surgery 04/03/25 - no complications Persistent pain of the right upper and now left hand with new swelling. No evidence for on TTE septic emboli, the patient will require a transesophageal echocardiography. Re-evaluation with CT right and left upper extremities for evidence of infective endocarditis/septic emboli; revealing extensive evidence of abscesses, phlegmon, tenosynoviitis and superimposed fasciitis, myositis and possible tissue necrosis - please see CT report for specifics Surgery reports that burden of disease is extensive, requiring higher level of care - transfer requested. Patient accepted at [facility] for urgent transfer. Myositis Fasciitis Possible tissue necrosis Ortho consultation in place s/p POD2 I&D of right upper extremity Elevating arm and applying ice as tolerated, ice will not be applied directly to the skin New evidence of myositis, fasciitis and possible tissue necrosis of the bilateral arms, multiple sites. Mild hyponatremia - resolved Hypokalemia - Trend BMP daily - KCl 40 mEq PO given 04/06/2025 GERD - Protonix b.i.d. - Monitor H&H Constipation - Milk of magnesia UTE Patient normally on methadone 130 mg per day, confirmed with Addiction medicine services Patient did take her methadone today 04/02/2025 COWS ordered Valium p.r.n. (patient uses street Xanax and clonidine) Status at Discharge Cognitive/behavioral status at discharge: A&O to person place time and situation Functional status at discharge: independent ambulation Overall status at discharge: patient is not back to baseline Time Attestation Total time managing care of this patient today: 60 mintues. Discharge Coordination Time (in mins): 60 Quality: Safe Use of Opioids Does Pt have an Active Cancer Diagnosis on the Problem List?: No Quality: Stroke Does the patient have a stroke diagnosis?: No Physical Exam 2 Exam: Exam: General: A&O x3, oriented to time place person and situation, comfortable, no pain Cardiac: S1, S2 auscultated with no S3/4, no MRG. Well perfused. Respiratory: Normal breath sounds auscultated throughout all lung zones, without wheezing, rales. Normal rate. GI/ : No abdominal pain on palpation, no masses or distentions. MSK: Right shoulder and upper extremity swollen, erythematous, persistent tenderness to palpation light and deep, reduced ROM - normal peripheral sensation, normal pulses. Swollen left hand, wrist and forearm. No evidence of neurovascular compromise of the right or left upper extremities Neurological: Normal neurological examination on overview, without obvious CN II-XII abnormalities. Vital Signs: Vital Signs: Last Vital Signs Temp 99.5 F 04/06/25 15:10 Pulse 100 04/06/25 15:12 Resp 17 04/06/25 15:10 BP 133/88 04/06/25 15:10 Pulse Ox 92 04/06/25 15:10 O2 Del Method Room Air 04/06/25 15:10 O2 Flow Rate 2 04/06/25 07:44 BMI result Body Mass Index 27.8 DS: Data Data Completed and Pending Labs on day of discharge: Laboratory Results - last 24 hr 04/06/25 04/06/25 04/06/25 09:11 11:17 14:34 WBC 12.7 H RBC 3.57 L Hgb 9.0 L Hct 25.7 L MCV 72.0 L MCH 25.2 L MCHC 35.0 RDW 15.7 Plt Count 339 MPV 10.3 Immature Gran % (Auto) Cancelled Neut % (Auto) Cancelled Lymph % (Auto) Cancelled Chester % (Auto) Cancelled Eos % (Auto) Cancelled Baso % (Auto) Cancelled Lymph # (Auto) Cancelled Chester # (Auto) Cancelled Eos # (Auto) Cancelled Baso # (Auto) Cancelled Abs Immat Gran (auto) Cancelled Absolute Neuts (auto) Cancelled Absolute Nucleated RBC 0.000 Nucleated RBC % (auto) 0.0 Neutrophils % (Manual) 74 H Band Neutrophils % 3 Lymphocytes % (Manual) 14 L Monocytes % (Manual) 6 Eosinophils % (Manual) 3 Abs Neuts (Manual) 9.8 H Lymphocytes # (Manual) 1.8 Monocytes # (Manual) 0.8 Eosinophils # (Manual) 0.4 Dohle Bodies PRESENT Platelet Estimate NORMAL Large Platelets PRESENT Plt Morphology Comment NOTED RBC Morphology NOTED Ovalocytes 1+ (5-14) Sodium 135 137 Potassium 2.8 L* 4.4 D Chloride 103 105 Carbon Dioxide 25 23 Anion Gap 10 L 13 BUN 8 L 8 L Creatinine 0.59 0.59 Estim Creat Clear Calc 124.5 124.5 Estimated GFR > 60 > 60 Random Glucose 132 H 87 Calcium 7.4 L 7.7 L Random Vancomycin 19.3 COVID-19 (AISHA) COVID-19 Clin Com 04/06/25 17:15 WBC RBC Hgb Hct MCV MCH MCHC RDW Plt Count MPV Immature Gran % (Auto) Neut % (Auto) Lymph % (Auto) Chester % (Auto) Eos % (Auto) Baso % (Auto) Lymph # (Auto) Chester # (Auto) Eos # (Auto) Baso # (Auto) Abs Immat Gran (auto) Absolute Neuts (auto) Absolute Nucleated RBC Nucleated RBC % (auto) Neutrophils % (Manual) Band Neutrophils % Lymphocytes % (Manual) Monocytes % (Manual) Eosinophils % (Manual) Abs Neuts (Manual) Lymphocytes # (Manual) Monocytes # (Manual) Eosinophils # (Manual) Dohle Bodies Platelet Estimate Large Platelets Plt Morphology Comment RBC Morphology Ovalocytes Sodium Potassium Chloride Carbon Dioxide Anion Gap BUN Creatinine Estim Creat Clear Calc Estimated GFR Random Glucose Calcium Random Vancomycin COVID-19 (AISHA) Negative COVID-19 Clin Com See Note Imaging IMAGING: Radiologist's impression: ITS Impressions Elbow X-Ray 04/02/25 14:57 IMPRESSION: No acute fracture or dislocation. Electronically signed by: Mak Hale MD 04/02/2025 03:[address] RIGHT FOREARM w/t IV CONTRAST 04/06/2025 Ordering Physician: Ronny Mcneil MD Date of Service: 04/06/25 Procedure(s): CT forearm RT w IV con Accession Number(s): [id number] cc: Ronny Mcneil MD; Physician,None ~ Report Number: [id number]: Total DLP = 146.00 mGy-cm Reason for Exam: swelling, ivdu, MRSA+ sepsis blood CLINICAL HISTORY: swelling, ivdu, MRSA+ sepsis blood CT right upper arm with contrast Comparison: None available Findings: No fracture or dislocation. No cortical destruction or periostitis to indicate osteomyelitis. No osseous lesion. The joint spaces are preserved without osteophytosis. There is no joint effusion. The musculature is edematous. In the biceps brachii muscle there is question a rim enhancing low attenuating lesion measuring 1.7 x 2.9 x 8.5 cm ( series 35 images 50 through 67). The surrounding musculature is markedly decreased in attenuation ( measuring 11 Hounsfield units versus 54 Hounsfield units at the triceps muscle. There is skin thickening and infiltration of the subcutaneous fat with fluid tracking along the fascial planes. Normal vasculature. Associated lymphadenopathy, partially visualized. Impression: Phlegmon/developing abscess within the biceps muscle measuring 2.9 cm. Focal necrosis may also be considered; there is marked decreased attenuation of the biceps musculature which could be secondary to severe myositis or fasciitis with necrosis. No soft tissue gas. Further evaluation with MR of the humerus with and without contrast may be helpful. No CT evidence of osteomyelitis. This document has been electronically signed by: Jennifer Landin MD on 04/06/2025 14:18:43 CT LEFT FOREARM w/t IV CONTRAST 04/06/2025 Ordering Physician: Ronny Mcneil MD Date of Service: 04/06/25 Procedure(s): CT forearm LT w IV con Accession Number(s): [id number] cc: Ronny Mcneil MD; Physician,None ~ Report Number: [id number]: Total DLP = 130.00 mGy-cm Reason for Exam: swelling, ivdu, MRSA+ sepsis blood CLINICAL HISTORY: swelling, ivdu, MRSA+ sepsis blood CT left forearm with contrast Comparison: CT - CT HAND LT W IV CON - 04/06/25 10:47 EDT Findings: No fracture or dislocation. No cortical destruction or periostitis to indicate osteomyelitis. No osseous lesion. The joint spaces are preserved without osteophytosis. There is no joint effusion. There is a partially visualized rim enhancing fluid collection in the antecubital fossa measuring 3.4 x 3.3 cm. There is skin thickening in infiltration of the subcutaneous fat with fluid tracking along the fascial planes. Rim enhancing fluid collections of the dorsal aspect of the wrist are again seen. No soft tissue gas. The musculature is edematous. No muscular atrophy. Unremarkable vasculature. Impression: No CT evidence of osteomyelitis. Partially visualized abscess in the antecubital fossa measuring 3.4 cm. Redemonstrated rim enhancing fluid collections of the dorsal aspect of the wrist favored to be bacterial tenosynovitis. This document has been electronically signed by: Jennifer Landin MD on 04/06/2025 14:06:59 CT LEFT HAND w/t IV CONTRAST 04/06/2025 Ordering Physician: Ronny Mcneil MD Date of Service: 04/06/25 Procedure(s): CT hand LT w IV con Accession Number(s): [id number] cc: Ronny Mcneil MD; Physician,None ~ Report Number: [id number]: Total DLP = 101.00 mGy-cm Reason for Exam: swelling, ivdu, MRSA+ sepsis blood CLINICAL HISTORY: swelling, ivdu, MRSA+ sepsis blood CT left hand with contrast Comparison: None available Findings: No fracture or dislocation. No cortical destruction or periostitis to indicate osteomyelitis. No osseous lesion. The joint spaces are preserved without osteophytosis. There is no joint effusion. There are 2 adjacent rim enhancing fluid collections measuring 0.6 x 0.5 x 1.7 cm ( series 14, image 170 and series 13, image 49 ) and measuring 0.6 x 0.4 x 1.3 cm ( series 14, image 176 and series 13, image 40 ) at the dorsal /ulnar aspectof the wrist which appear to be in continuity with the extensor tendons. There is skin thickening and infiltration of the subcutaneous fat. No muscular atrophy. There is edema within the musculature. Unremarkable vasculature. Impression: No CT evidence of osteomyelitis. Rim enhancing fluid collections measuring 1.7 and 1.3 cm of the dorsal/ulnar aspect of the wrist which appear to be in continuity with the extensor tendons. This is concerning for infectious extensor tenosynovitis. This can be further evaluated with MR with and without contrast. This document has been electronically signed by: Jennifer Landin MD on 04/06/2025 13:53:50 CT RIGHT SHOULDER w/t IV CONTRAST 04/06/2025 Ordering Physician: Ronny Mcneil MD Date of Service: 04/06/25 Procedure(s): CT shoulder RT w IV con Accession Number(s): [id number] cc: Ronny Mcneil MD; Physician,None ~ Report Number: [id number]: Total DLP = 232.00 mGy-cm Reason for Exam: swelling, ivdu, MRSA+ sepsis blood - postop I&D CLINICAL HISTORY: swelling, ivdu, MRSA+ sepsis blood - postop I D CT right shoulder with contrast Comparison: CT/SR - CT ANGIO UE RT - 04/02/25 20:11 EDT Findings: No fracture or dislocation. No cortical destruction or periostitis to indicate osteomyelitis. No osseous lesion. The joint spaces are preserved without osteophytosis. There is no joint effusion. There is no fluid collection. The musculature is edematous. No muscular atrophy. Unremarkable vasculature. There is skin thickening and infiltration of the subcutaneous fat which is slightly which is similar to the prior studies. Fluid tracks along the fascial planes, greater than on the prior study, currently measuring up to 1.6 cm in thickness and previously measuring up to 0.8 cm in thickness. There is no soft tissue gas. Associated lymphadenopathy measures up to 1.7 cm in short axis, previously 1.5 cm. Right upper lobe nodule measuring 1.0 cm, Previously 0.9 cm. Impression: No CT evidence of osteomyelitis or septic arthritis. No drainable fluid collection. Cellulitis, myositis and fasciitis. Fluid tracking along the fascial planes is greater than on the prior study and may indicate worsening. No soft tissue gas to indicate necrotizing fasciitis. Associated lymphadenopathy, greater than on the prior study. 1.0 cm nodule in the right upper lobe. Given the history consider septic emboli. This document has been electronically signed by: Jennifer Landin MD on 04/06/2025 13:47:06 CT ANGIO UE RIGHT SHOULDER w/t IV CONTRAST 04/06/2025 Ordering Physician: Trudy Damian DO Date of Service: 04/02/25 Procedure(s): CT angio UE RT Accession Number(s): [id number] cc: Trudy Damian DO; Physician,Unknown ~ Report Number: [id number]: Total DLP = 0.00 mGy-cm Reason for Exam: Necrotising fascitis rule out CLINICAL HISTORY: Necrotising fascitis rule out --- Additional Notes or Special Instructions: Scan shoulder to hand CT angiography right upper extremity contrast. 3D Postprocessing. Comparison: None provided Findings: Visualized right subclavian, axillary, brachial and proximal radioulnar arteries are patent. Distal forearm and hand arteries are not well visualized secondary to streak artifact Right axillary lymphadenopathy, likely reactive. Subpleural 9 mm pulmonary nodule in the medial right apex. 2 mm subpleural nodule right middle lobe. 6 mm nodule subpleural right lower lobe. Consider CT at 3 months, PET-CT, or tissue sampling. Hepatic steatosis noted. The bones are intact. Extensively diffuse skin thickening with subcutaneous edema and fluid reticulation and stranding tracking throughout the upper extremity pronounced of the elbow. There is diffuse intramuscular edema throughout the upper extremity as well. Intramuscular edema along the pectoralis major. There is a more discrete circumferential developing fluid collection along the anterior shoulder given morphology, difficult to measure however for example along the posterolateral aspect measuring 1.5 cm axial image 21 of series 7. Developing abscess is suspected. No soft tissue gas identified. IMPRESSION: 1. Right upper extremity runoff within the visualized arteries. 2. Extensive myositis, cellulitis and developing ill-defined abscess of the level of the shoulder, please see above. 3. Reactive right axillary adenopathy. 4. No evidence of necrotizing fasciitis at this time. 5. Right-sided pulmonary nodules, please see above. This document has been electronically signed by: Rodríguez Justice MD on 04/02/2025 21:38:11 TRANSTHORACIC ECHO : Radiologist's impression: Ordering Physician: Sue Barajas [facility] Date of Service: 04/03/25 Procedure(s): CA echo transthoracic complete Accession Number(s): cc: [facility] Reason for Exam: rule out endocarditis, IVDA with active infection Transthoracic Echocardiogram Patient (Last, First, Middle): Molly Beasley, Gender: Female Date of : 1990 Age: 34 Procedure Date: 04/03/2025 Procedure Type: Transthoracic Echocardiogram Location: ER Height: 160.02 cm Weight: 64.41 kg BSA: 1.67 m2 Heart Rate: bpm BP: 155 / 90 mmHg Program Manager: NYA/APRIL Referring MD: Sue Barajas [facility] Symptoms: rule out endocarditis, IVDA with active infection Study Quality: Adequate ECG Rhythm: Sinus Conclusions: - The left ventricular systolic function is normal. The calculated ejection fraction is 61% by biplane method. - No obvious valvular pathology seen on this study. Findings Left Ventricle Normal left ventricular cavity size. There is normal left ventricular wall thickness. The left ventricular systolic function is normal. The calculated ejection fraction is 61% by biplane method. There is no evidence of regional wall motion abnormalities. Diastolic function is normal for age. Right Ventricle Normal right ventricular cavity size and systolic function. Atria Both atria are normal in size. Aortic Valve There is a normal trileaflet aortic valve. There is no aortic valve stenosis. There is no aortic valve regurgitation. Mitral Valve The mitral valve appears normal. There is no mitral valve regurgitation. There is no mitral valve stenosis. Pulmonic Valve The pulmonic valve is likely normal. Tricuspid Valve There is no tricuspid valve regurgitation. Tricuspid regurgitation envelope is inadequate for calculation of right ventricular systolic pressure. Great Vessels The asc aorta is normal in size. Venous The inferior vena cava is normal in size and collapses greater than 50% with inspiration. Pericardium/Pleural There is no evidence of pericardial effusion. Prior Study Comparison No prior study available for comparison. Recommendations, Care & Conclusions No obvious valvular pathology seen on this study. Measurements 2D Linear Measurements IVSd: 0.96 0.6-0.9/0.6-1.0 cm LVIDd: 4.85 3.9-5.3/4.2-5.9 cm LVIDd Index: 2.90 2.4-3.2/2.2-3.1 cm/m2 LVIDs: 2.69 2.0-3.6 cm LVPWd: 0.93 0.7-1.1 cm LA Diam: 3.50 2.7-3.8/3.0-4.0 cm LAIDs Index: 2.10 1.5-2.3 cm/m2 LV Mass: 200.35 67-162/88-224 g LV Mass Index: 119.97 43-95/49-115 g/m2 LVOT Diam: 2.10 3.0+(-)1.3 cm 2D Systolic Function EF 4C: 69.60 >55% EF 2C: 51.90 >55% EF BiP: 61.00 >55% Mitral Valve MV Pk E: 0.99 MV PK A: 0.74 MV Decel Time: 174.00 E/A: 1.30 E'Lateral: 11.60 E'Medial: 10.30 E/E' Med: 9.60 E/E' Lat: 8.50 PHT: 51.00 MVA PHT: 4.31 Decel Love: 5.65 Aortic Valve AoV Pk Mihai: 1.48 AoV Mn Mihai: 1.05 AoV VTI: 0.23 AoV Pk Grad: 9.00 Aov Mn Grad: 5.00 ATIF Cont.VTI: 3.30 LVOT LVOT Pk Mihai: 1.42 LVOT Mn Mihai: 0.94 LVOT VTI: 0.22 LVOT Pk Grad: 8.00 LVOT Mn Grad: 4.00 LVOT Diam: 2.10 LVOT Area: 3.46 Diastolic Function MV Pk E: 0.99 MV Pk A: 0.74 E/A: 1.30 E'Medial: 10.30 E/E' Med: 9.60 E' Laterial: 11.60 E/E' Lat: 8.50 Right Ventricle TAPSE (mm): 22.60 TVS' Mihai: 17.30 Tricuspid Valve RA Press: 3.00 Great Vessels Aorta Sinus of Valsalva: 3.30 2.0-3.5 cm Ao Asc: 2.70 2.1-3.4 cm Pulmonary Veins Pulm Vein S/D 1.40 Pulmonary Valve PV Pk Mihai: 1.30 Peak PV Grad: 7.00 Updated in Other Vendor System with Status of Final Jayden Berman MD electronically signed on 04/03/2025 4:00:52 PM with status of Final Discharge Plan Discharge Anticipated Discharge Date/Time: 04/06/25 18:17 Patient Disposition: er Acute Care Hospital Discharge Diagnosis: Multiple Abscesses, phlegmon, myositis, fasciitis, cellulitis, possible tissue necrosis due to MRSA infection 2/2 IVDU Referrals: Physician,None [Primary Care Provider, Medical] - 1 Week Discharge Medications: No Action methadone [Methadone Intensol] 10 mg/mL Concentrate 130 mg PO DAILY ibuprofen 200 mg Tablet 400 mg PO Q6H PRN (Reason: Pain) dextroamphetamine-amphetamine [Adderall] 20 mg Tablet 20 mg PO DAILY dextroamphetamine-amphetamine [Adderall] 5 mg Tablet 5 mg PO DAILY@1200,2100 Diet: Advance to usual diet Activity on Discharge: As tolerated Stand Alone Forms: Patient Portal Discharge page Print Language: Swedish Care Plan Goals: Transfer to [facility] for higher level of care. Health Concerns: Transfer to [facility] for higher level of care. Plan of Treatment: Transfer to [facility] for higher level of care. Assessment: Transfer to [facility] for higher level of care. Results Laboratory Findings 04/06/25 09:11 04/06/25 14:34 Labs: Laboratory Results - last 24 hr 04/06/25 04/06/25 04/06/25 09:11 11:17 14:34 WBC 12.7 H RBC 3.57 L Hgb 9.0 L Hct 25.7 L MCV 72.0 L MCH 25.2 L MCHC 35.0 RDW 15.7 Plt Count 339 MPV 10.3 Immature Gran % (Auto) Cancelled Neut % (Auto) Cancelled Lymph % (Auto) Cancelled Chester % (Auto) Cancelled Eos % (Auto) Cancelled Baso % (Auto) Cancelled Lymph # (Auto) Cancelled [place] # (Auto) Cancelled Eos # (Auto) Cancelled Baso # (Auto) Cancelled Abs Immat Gran (auto) Cancelled Absolute Neuts (auto) Cancelled Absolute Nucleated RBC 0.000 Nucleated RBC % (auto) 0.0 Neutrophils % (Manual) 74 H Band Neutrophils % 3 Lymphocytes % (Manual) 14 L Monocytes % (Manual) 6 Eosinophils % (Manual) 3 Abs Neuts (Manual) 9.8 H Lymphocytes # (Manual) 1.8 Monocytes # (Manual) 0.8 Eosinophils # (Manual) 0.4 Dohle Bodies PRESENT Platelet Estimate NORMAL Large Platelets PRESENT Plt Morphology Comment NOTED RBC Morphology NOTED Ovalocytes 1+ (5-14) Sodium 135 137 Potassium 2.8 L* 4.4 D Chloride 103 105 Carbon Dioxide 25 23 Anion Gap 10 L 13 BUN 8 L 8 L Creatinine 0.59 0.59 Estim Creat Clear Calc 124.5 124.5 Estimated GFR > 60 > 60 Random Glucose 132 H 87 Calcium 7.4 L 7.7 L Random Vancomycin 19.3 COVID-19 (AISHA) COVID-19 Clin Com 04/06/25 17:15 WBC RBC Hgb Hct MCV MCH MCHC RDW Plt Count MPV Immature Gran % (Auto) Neut % (Auto) Lymph % (Auto) [place] % (Auto) Eos % (Auto) Baso % (Auto) Lymph # (Auto) [place] # (Auto) Eos # (Auto) Baso # (Auto) Abs Immat Gran (auto) Absolute Neuts (auto) Absolute Nucleated RBC Nucleated RBC % (auto) Neutrophils % (Manual) Band Neutrophils % Lymphocytes % (Manual) Monocytes % (Manual) Eosinophils % (Manual) Abs Neuts (Manual) Lymphocytes # (Manual) Monocytes # (Manual) Eosinophils # (Manual) Dohle Bodies Platelet Estimate Large Platelets Plt Morphology Comment RBC Morphology Ovalocytes Sodium Potassium Chloride Carbon Dioxide Anion Gap BUN Creatinine Estim Creat Clear Calc Estimated GFR Random Glucose Calcium Random Vancomycin COVID-19 (AISHA) Negative COVID-19 Clin Com See Note Results Imaging MICROBIOLOGY RESULTS : My impression: RUN: 04/06/25 1816 PAGE 1 [facility] [address] [place] [id number] Stud Sheep Farmer: Joseph Haro M.D. Specimen Inquiry Name: Molly Beasley Age/Sex: 34/F : 1990 Unit#: [id number] Attend Dr: Ronny Mcneil MD Re04/02/25 Status: ADM IN Location: [facility] 344-1 D isch: Specimen: [id number] Collected: 04/03/25 Status: COMP Req#: [id number] Received: 04/03/25 Source: Arm Rt Sp Desc: Subm Dr: Brendon Matta MD Ordered: Routine Cult GS Procedure Result Verified Gram stain Final 04/04/25 Gram stain results: No polys 1+ epithelial cells 1+ Gram-positive cocci Routine Culture Final 04/06/25 Organism 1 Methicillin Res Staph Aureus Quantity 2+ MRSA M.I.C. RX --------- --- Clindamycin >=8 R Erythromycin >=8 R Oxacillin >=4 R Penicillin-G >=0.5 R Tetracycline >=16 R Trimethoprim/Sulfamethoxazole <=10 S Vancomycin <=0.5 S END OF REPORT RUN: 04/06/25 7763 PAGE 1 [facility] [address] [place] [id number] [employer] Farmer: Joseph Haro M.D. Specimen Inquiry Name: RamosMolly Age/Sex: 34/F : 1990 Unit#: [id number] Attend Dr: Ronny Mcneil MD Re04/02/25 Status: ADM IN Location: [facility] 344-1 D isch: Specimen: [id number] Collected: 04/03/25 Status: COMP Req#: [id number] Received: 04/03/25 Source: Arm Rt Sp Desc: Subm Dr: Brendon Matta MD Ordered: Routine Cult GS Procedure Result Verified Gram stain Final 04/04/25 Gram stain results: 1+ polys 1+ epithelial cells 4+ red blood cells No organisms seen Routine Culture Final 04/06/25-6034 Organism 1 Methicillin Res Staph Aureus Quantity 2+ MRSA M.I.C. RX --------- --- Clindamycin >=8 R Erythromycin >=8 R Oxacillin >=4 R Penicillin-G >=0.5 R Tetracycline >=16 R Trimethoprim/Sulfamethoxazole <=10 S Vancomycin 1 S END OF REPORT RUN: 04/06/25 2426 PAGE 1 [facility] [address] [place] [id number] [employer] Farmer: Joseph Haro M.D. Specimen Inquiry Name: Molly Beasley Age/Sex: 34/F : 1990 Unit#: [id number] Attend Dr: Ronny Mcneil MD Re04/02/25 Status: ADM IN Location: [facility] 344-1 D isch: Specimen: [id number] Collected: 04/02/25 Status: COMP Req#: [id number] Received: 04/02/25 Source: Blood Sp Desc: Venous Subm Dr: Mayra Turpin Ordered: Blood Cult(2nd) Procedure Result Verified Blood Culture (Second) Final 04/05/25-7800 Gram stain results: Gram-positive cocci in clusters 2 sets positive/2 sets drawn Gram stain results from blood cultures should be interpreted with caution. A number of factors, including the presence of antibiotics in the specimen and the effect of growth in enriched liquid culturing medium, may cause organisms to react differently with the staining reagents. These factors occasionally cause a Gram-negative organism to stain Gram-positive and vice versa. Results of the initial Gram stain from the culture broth must always be correlated with growth on agar. Organism 1 Methicillin Res Staph Aureus ORG #1: Susceptibility testing of same organism(s) from similar site will not be repeated within 4 days. Critical blood culture gram stain result sent by a secure message and confirmed by Kody MCNEIL on 04/03/25 at 1350 by WENDY. END OF REPORT RUN: 04/06/25 8190 PAGE 1 [facility] [address] [place] [phone] [employer] Farmer: Joseph Haro M.D. Specimen Inquiry Name: Molly Beasley Age/Sex: 34/F : 1990 Unit#: [id number] Attend Dr: Ronny Mcneil MD Re04/02/25 Status: ADM IN Location: [facility] 344-1 D isch: Specimen: [id number] Collected: 04/02/25 Status: COMP Req#: [id number] Received: 04/02/25 Source: Blood Sp Desc: Venous Subm Dr: Mayra Turpin Ordered: Blood Cult(1st) Procedure Result Verified Blood Culture (First) Final 04/05/25 Gram stain results: Gram-positive cocci in clusters 2 sets positive/2 sets drawn Gram stain results from blood cultures should be interpreted with caution. A number of factors, including the presence of antibiotics in the specimen and the effect of growth in enriched liquid culturing medium, may cause organisms to react differently with the staining reagents. These factors occasionally cause a Gram-negative organism to stain Gram-positive and vice versa. Results of the initial Gram stain from the culture broth must always be correlated with growth on agar. Organism 1 Methicillin Res Staph Aureus Critical blood culture gram stain result sent by a secure message and confirmed by nurse ANTONIO on 04/03/25 at 1517 by WENDY. MRSA M.I.C. RX --------- --- Clindamycin >=8 R Erythromycin >=8 R Oxacillin >=4 R Penicillin-G >=0.5 R Tetracycline >=16 R Trimethoprim/Sulfamethoxazole <=10 S Vancomycin <=0.5 S END OF REPORT
--- NOTE | 2025-04-06 18:49 | PC.NURSE ---
Nurse to Nurse report given to ANMOL Tinajero at [facility]
== END 2025-04-06 19:50 | disposition short-term general hospital (02) | DRG 710 ==
LOC: HO.ED 18:59 → HO.EDOVER 22:40 → HO.S3 04-03 08:28
PROVIDERS: Nurse Practitioner Family; Orthopaedic Surgery; Physician Assistant Medical; Admitting Provider Internal Medicine; Emergency Provider Student in an Organized Health Care Education/Training Program; Visit Provider Hospitalist
PROC: 0J9D0ZZ Drainage of Right Upper Arm Subcutaneous Tissue and Fascia, Open Approach (ICD-10-PCS; principal; 2025-04-03 17:00)
DX: A41.9 Sepsis, unspecified organism (principal); I96 Gangrene, not elsewhere classified; M60.011 Infective myositis, right shoulder; E87.1 Hypo-osmolality and hyponatremia; L03.113 Cellulitis of right upper limb; F11.20 Opioid dependence, uncomplicated; L02.413 Cutaneous abscess of right upper limb; M72.8 Other fibroblastic disorders; F41.9 Anxiety disorder, unspecified; M65.111 Other infective (teno)synovitis, right shoulder; E87.6 Hypokalemia; B95.62 Methicillin resistant Staphylococcus aureus infection as the cause of diseases classified elsewhere; K59.00 Constipation, unspecified; F14.90 Cocaine use, unspecified, uncomplicated; F32.A Depression, unspecified; F90.9 Attention-deficit hyperactivity disorder, unspecified type; K21.9 Gastro-esophageal reflux disease without esophagitis; Z20.822 Contact with and (suspected) exposure to COVID-19; Z79.899 Other long term (current) drug therapy
CPT/HCPCS: 36415; 71045; 73070; 73201; 73206; 80048; 80053; 80076; 80202; 80307; 81001; 81003; 83605; 83735; 84702; 85007; 85025; 85027; 85652; 86140; 86704; 86706; 86709; 86803; 87040; 87070; 87077; 87147; 87186; 87205; 87340; 87389; 87635; 93005; 93306; 99285; J0690; J1171; J1650; J1885; J2003; J2270; J2405; J2470; J2543; J2704; J3010; J3374; J7120; Q9957; Q9967; S9485

== ENCOUNTER → 2025-04-02 14:33 | Outpatient (BNV) | payer MEDICAID, SELFPAY | PROVIDERS: Visit Provider Radiology Diagnostic Radiology | DX: R59.0 Localized enlarged lymph nodes (principal); R91.8 Other nonspecific abnormal finding of lung field; R07.9 Chest pain, unspecified; M25.521 Pain in right elbow | CPT/HCPCS: 71045; 73070; 73206 ==

== ENCOUNTER 2025-04-02 22:35 | Outpatient (BNV) | payer MEDICAID, SELFPAY | END 2025-04-04 01:10 | PROVIDERS: Admitting Provider Internal Medicine; Emergency Provider Student in an Organized Health Care Education/Training Program; Visit Provider Internal Medicine | DX: R00.0 Tachycardia, unspecified (principal) | CPT/HCPCS: 93010 ==

== ENCOUNTER 2025-04-02 22:35 | Outpatient (BNV) | payer MEDICAID, SELFPAY | END 2025-04-03 07:00 | PROVIDERS: Admitting Provider Internal Medicine; Emergency Provider Student in an Organized Health Care Education/Training Program; Visit Provider Internal Medicine | DX: R78.81 Bacteremia (principal); F19.10 Other psychoactive substance abuse, uncomplicated | CPT/HCPCS: 93306 ==

== ENCOUNTER 2025-04-02 22:35 | Outpatient (BNV) | payer MEDICAID, SELFPAY | END 2025-04-06 08:27 | PROVIDERS: Admitting Provider Internal Medicine; Emergency Provider Student in an Organized Health Care Education/Training Program; Visit Provider Radiology Diagnostic Radiology | DX: A41.02 Sepsis due to Methicillin resistant Staphylococcus aureus (principal); M79.89 Other specified soft tissue disorders; R91.1 Solitary pulmonary nodule | CPT/HCPCS: 73201 ==

== ENCOUNTER → 2025-04-02 22:35 | Outpatient (BNV) | payer OTHER, SELFPAY | PROVIDERS: Admitting Provider Internal Medicine; Emergency Provider Student in an Organized Health Care Education/Training Program; Visit Provider Nurse Practitioner Psychiatric/Mental Health | DX: F11.90 Opioid use, unspecified, uncomplicated (principal) | CPT/HCPCS: 99232; 99499 ==

== ENCOUNTER → 2025-04-02 22:35 | Outpatient (BNV) | payer MEDICAID, SELFPAY | PROVIDERS: Admitting Provider Internal Medicine; Emergency Provider Student in an Organized Health Care Education/Training Program; Visit Provider Physician Assistant Surgical | DX: L03.113 Cellulitis of right upper limb (principal); M60.011 Infective myositis, right shoulder; F19.10 Other psychoactive substance abuse, uncomplicated | CPT/HCPCS: 99222 ==

== ENCOUNTER → 2025-04-02 22:35 | Outpatient (BNV) | payer MEDICAID, SELFPAY | PROVIDERS: Admitting Provider Internal Medicine; Emergency Provider Student in an Organized Health Care Education/Training Program; Visit Provider Internal Medicine | DX: F19.10 Other psychoactive substance abuse, uncomplicated (principal); F11.20 Opioid dependence, uncomplicated; L03.113 Cellulitis of right upper limb | CPT/HCPCS: 99222 ==

== ENCOUNTER → 2025-04-02 22:35 | Outpatient (BNV) | payer MEDICAID, SELFPAY | PROVIDERS: Admitting Provider Internal Medicine; Emergency Provider Student in an Organized Health Care Education/Training Program | DX: L03.113 Cellulitis of right upper limb (principal); A41.9 Sepsis, unspecified organism; R65.20 Severe sepsis without septic shock; M60.011 Infective myositis, right shoulder; L02.413 Cutaneous abscess of right upper limb | CPT/HCPCS: 99223 ==

== ENCOUNTER → 2025-04-02 22:35 | Outpatient (BNV) | payer MEDICAID, SELFPAY | PROVIDERS: Admitting Provider Internal Medicine; Emergency Provider Student in an Organized Health Care Education/Training Program; Visit Provider Nurse Practitioner Family | DX: F32.2 Major depressive disorder, single episode, severe without psychotic features (principal); F19.10 Other psychoactive substance abuse, uncomplicated; F41.9 Anxiety disorder, unspecified; L03.113 Cellulitis of right upper limb; A41.9 Sepsis, unspecified organism; R65.20 Severe sepsis without septic shock; M60.011 Infective myositis, right shoulder | CPT/HCPCS: 99223; 99232; 99239; 99499 ==

== ENCOUNTER 2025-04-14 21:20 | Inpatient (IN) | payer MEDICAID, SELFPAY ==
--- OUTSIDE RECORDS SUMMARY | 2025-04-06 20:42 | XMS_ITS | Encounter Summary ---
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 Name Role Phone Pcp, No Primary Care Provider Unavailabl e System, Provider Not In Primary Care Provider Un available Reason for Visit * Auth/Cert (Routine) Specialty Diagnoses / Procedures Referred By Contac t Referred To Contact Diagnoses Hand abscess Abscess Procedures n/a Referral ID Status Reason Start Date Expiration Date Visits Re quested Visits Authorized [id number] 1 1 Encounter Details Date Type Department Care Team (Latest Contact Info) Description 04/06/2025 8:42 PM EDT - 04/14/2025 8:20 PM EDT Hospital Encounter [facility] [address] [place] [address] Kenton Medina MD [address] [place] [id number] Dandre Valdez MD [address] [place] [address] Bhavin Parks MD [address] [place] [address] Db Lynn MD [address] [place] [address] Lucho Donaldson MD [address] [id number] Galdino Cnuningham MD [address] [place] [address] Abscess of arm, right (Primary Dx) Discharge Disposition: Short Term-Acute Care Hospital Social History Tobacco Use Types Packs/Day Years Used Date Smoking Tobacco: Every Day Cigarettes Passive Smoke Exposure: Current Smokeless Tobacco: Current Tobacco Cessation:Ready to Q uit: No; Counseling Given: Not Answered [facility] Utilities Answer Date Recorded In the past 12 months has th e electric, gas, oil, or water company threatened to shut off services in your home? No 04/08/2025 AUDIT-C Answer Date Recorded Q1: How often do you have a drink containing alcohol? Never 04/06/2025 Q2: How many drinks containi ng alcohol do you have on a typical day when you are drinking? Patient does not drink Q3: How often do you have si x or more drinks on one occasion? Never 04/06/2025 Hunger Vital Sign Answer Date Recorded Within the past 12 months, y ou worried that your food would run out before you got the money to buy more. Never true 04/08/20 25 Within the past 12 months, t he food you bought just didn't last and you didn't have money to get more. Never true 04/08/2025 PRAPARE - Transportation Answer Date Re corded In the past 12 months, has l ack of transportation kept you from medical appointments or from getting medications? No 12/2024 In the past 12 months, has l ack of transportation kept you from meetings, work, or from getting things needed for daily living? No 04/08/2025 Housing Stability Vital Sign Answer Sy e Recorded In the last 12 months, was t here a time when you were not able to pay the mortgage or rent on time? No 04/08/2025 In the past 12 months, how m any times have you moved where you were living? 0 04/08/2025 At any time in the past 12 m [facility], were you homeless or living in a chcf (including now)? No 04/08/2025 Comments Unknown Sex and Gender Information Value Date Recorded Sex Assigned at Female 04/06/2025 9:21 PM EDT Legal Sex Female 4:48 PM EDT Gender Identity Female 04/06/2025 9:21 PM EDT Sexual Orientation Heterosexual (straight) 04/06 9:21 PM EDT documented as of this encounter Last Filed Vital Signs Vital Sign Reading Time Taken Comments Blood Pressure 144/74 04/14/2025 7:44 PM EDT Pulse 79 04/14/2025 7:44 PM EDT Temperature 36.6 C (97.9 F) 04/14/2025 7:44 PM EDT Respiratory Rate 18 04/14/2025 7:44 PM EDT Oxygen Saturation 98% 04/14/2025 7:4 4 PM EDT Inhaled Oxygen Concentration - - Weight 68.5 kg (151 lb 0.2 oz) 04/14/2025 6:00 AM EDT Height 158 cm (5' 2.21 ) 04/06/2025 8:5 6 PM EDT verified by ANMOL Thapa Body Mass Index 27.44 04/06/2025 8:56 PM EDT documented in this encounter Functional Status * Audit-C Score Answer Date of Assessment Author 0 04/06/2025 8:59 PM EDT Denice Gipson RN * Question Answer Date of Assessment Author AUDIT-C Total Score - Female 0 04/06/2025 8:59 PM EDT Veronica Gipson RN Q1: How often do you have a drink containing alcohol? Never 04/06/2025 8:59 PM EDT Veronica Gipson RN Q2: How many drinks containing alcohol do you have on a typical day when you are drinking? Patient does not drink 04/06/2025 8:59 PM EDT Veronica Gipson RN Q3: How often do you have six or more drinks on one occasion? Never 04/06/2025 8:59 PM EDT Veronica Gipson RN * Level of Risk per Screen Answer Date of Assessment Author Low Risk 04/06/2025 8:59 PM EDT Denice Gipson RN documented as of this encounter Medications at Time of Discharge acetaminophen (TYLENOL) 325 MG tabletIndications :Abscess of arm, right Take 3 tablets (975 mg total) by mouth every 6 (six) hours around the clock. 04/14/2025 albuterol (PROVENTIL) (0.083%) 2.5 mg/3 mL nebulizer solutionIndicatio ns:Abscess of arm, right Take 3 mL (2.5 mg total) by nebulization 4 times daily (every 6 hours) as needed for wheezing or shortness of breath. 04/14/2025 baclofen (LIORESAL) 10 MG tabletIndications :Abscess of arm, right Take 1 tablet (10 mg total) by mouth every 8 (eight) hours around the clock. 04/15/2025 bisacodyl (DULCOLAX) 10 MG suppositoryIndica tions:Abscess of arm, right Insert 1 suppository (10 mg total) into the rectum daily as needed for constipation (if no bowel movement by day 2). 04/14/2025 clindamycin in D5w (CLEOCIN) 900 MG/50ML IVPBIndications:A bscess of arm, right Infuse 50 mL (900 mg total) into a venous catheter 3 times daily (every 8 hours). 04/14/2025 cloNIDine (CATAPRES) 0.1 MG tabletIndications :Abscess of arm, right Take 1 tablet (0.1 mg total) by mouth 2 (two) times a day. 04/14/2025 dextrose 50 % solutionIndicatio ns:Abscess of arm, right Infuse 25 mL (12.5 g total) into a venous catheter every 15 (fifteen) minutes as needed for low blood sugar (between 50 and 69 mg/dL). 04/14/2025 dextrose 50 % solutionIndicatio ns:Abscess of arm, right Infuse 50 mL (25 g total) into a venous catheter every 15 (fifteen) minutes as needed for low blood sugar (less than 50 mg/dL). 04/14/2025 doxycycline (VIBRA-TABS) 100 MG tabletIndications :Abscess of arm, right Take 1 tablet (100 mg total) by mouth 2 (two) times a day. 04/14/2025 folic acid (FOLVITE) 1 MG tabletIndications :Abscess of arm, right Take 1 tablet (1 mg total) by mouth daily. 04/15/2025 gabapentin (NEURONTIN) 300 MG capsuleIndication s:Abscess of arm, right Take 1 capsule (300 mg total) by mouth every 8 (eight) hours around the clock. 04/15/2025 glucagon (GLUCAGEN) 1 mg Recon Soln injectionIndicati ons:Abscess of arm, right Inject 1 mg into the shoulder, thigh, or buttocks daily as needed for low blood sugar (for Blood Glucose LESS than 70 mg/dL and NPO and no IV access). 04/14/2025 glucose (GLUTOSE 15) 40 % oral gelIndications:Ab scess of arm, right Take 1 Tube (37.5 g total) by mouth every 15 (fifteen) minutes as needed for low blood sugar (between 50 and 69 mg/dL). 04/14/2025 glucose (GLUTOSE 15) 40 % oral gelIndications:Ab scess of arm, right Take 2 Tubes (75 g total) by mouth every 15 (fifteen) minutes as needed for low blood sugar (less than 50 mg/dL). 04/14/2025 Heparin Sodium, Porcine, (heparin, porcine,) 5000 unit/mL injectionIndicati ons:Abscess of arm, right Inject 1 mL (5,000 Units total) under the skin every 8 (eight) hours around the clock. 04/15/2025 HYDROmorphone (DILAUDID) 1 mg/mL injectionIndicati ons:Abscess of arm, right Infuse 1 mL (1 mg total) into a venous catheter daily as needed (DURING DRESSING CHANGES ONLY). Max Daily Amount: 1 mg 04/14/2025 5 HYDROmorphone (DILAUDID) 2 MG tabletIndications :Abscess of arm, right Take 3 tablets (6 mg total) by mouth every 3 (three) hours as needed for severe pain. Max Daily Amount: 48 mg 04/14/2025 5 HYDROmorphone (DILAUDID) 4 MG tabletIndications :Abscess of arm, right Take 1 tablet (4 mg total) by mouth every 3 (three) hours as needed for moderate pain. Max Daily Amount: 32 mg 04/14/2025 insulin lispro (HumaLOG/ADMELOG) 100 units/mL injectionIndicati ons:Abscess of arm, right Inject 0.01-0.06 mL (1-6 Units total) under the skin every 4 (four) hours. 04/14/2025 ketorolac (TORADOL) 15 MG/ML injectionIndicati ons:Abscess of arm, right Infuse 1 mL (15 mg total) into a venous catheter every 6 (six) hours around the clock. 04/14/2025 methadone (DOLOPHINE) 5 MG tabletIndications :Abscess of arm, right Take 9 tablets (45 mg total) by mouth every 8 (eight) hours around the clock. Max Daily Amount: 135 mg 04/14/2025 multivitamin Tab tabletIndications :Abscess of arm, right Take 1 tablet by mouth daily. 04/15/2025 naloxegol (MOVANTIK) 12.5 MG tabletIndications :Opioid-Induced Constipation Take 1 tablet (12.5 mg total) by mouth every morning before breakfast. 04/15/2025 naloxone (NARCAN) 0.4 mg/mL injectionIndicati ons:Abscess of arm, right Infuse 1 mL (0.4 mg total) into a venous catheter every 5 (five) minutes as needed for opioid reversal or respiratory depression. 04/14/2025 ondansetron (ZOFRAN) 4 MG/2ML injectionIndicati ons:Abscess of arm, right Infuse 2 mL (4 mg total) into a venous catheter 4 times daily (every 6 hours) as needed for nausea or vomiting. 04/14/2025 polyethylene glycol (miraLAx) 17 g packetIndications :Abscess of arm, right Take 1 packet (17 g total) by mouth daily. 04/15/2025 potassium phosphate and sodium phosphate (K PHOS NEUTRAL) 155-852-130 MG tabletIndications :Abscess of arm, right Take 2 tablets by mouth 4 (four) times a day with meals and nightly. 04/14/2025 senna-docusate (SENNA-S) 8.6-50 MGIndications:Abs cess of arm, right Take 1 tablet by mouth nightly. 04/14/2025 thiamine mononitrate (VITAMIN B-1) 100 MG tabletIndications :Abscess of arm, right Take 1 tablet (100 mg total) by mouth daily. 04/15/2025 vancomycin 1,250 mg in sodium chloride 0.9 % 250 mL IVPB-WTDIndicatio ns:Abscess of arm, right Infuse 1,250 mg into a venous catheter twice daily (every 12 hours). 04/15/2025 5 documented as of this encounter Progress Notes * Anisa Perez MD - 04/14/2025 12:38 PM EDT Images from the original note were not included. [facility] ID Progress Note Name: Molly Beasley Age: 34 y.o. Sex: female ASSESSMENT & PLAN Assessment: 34-year-old female with history of active IV drug use, history of xylazine infection, depression, anxiety, transferred to [facility] from OSH on 04/06 for concern of right upper extremity abscess. Patient initially presented to [facility] on 04/02 with redness/swelling of the right upper extremity in the setting of active IV cocaine use, underwent formal I&D on 04/05 of the right antecubital fossa. Repeat imaging of the forearm on 04/06 at OSH demonstrated developing abscess within the biceps muscle with concern for possible necrotizing fasciitis without soft tissue gas. CT of the left forearm demonstrated partially visualized abscess in the antecubital fossa and synovitis in the wrist. At OSH, 2 /2 blood cultures came back positive for MRSA on 04/02. ID was consulted on 04/07 1. MRSA right upper extremity abscess with significant induration which extended into the right elbow, underwent multiple debridements of the right upper / left upper extremities on 04/07, 04/08 and subsequent right chest wall debridement through sternal incision on 04/09. Transferred from ICU to floor on 10/1 to -04/07, OR notes-. copious amounts of purulent fluid in the biceps muscle cultures grew MRSA, susceptible to vancomycin/linezolid/minocycline -On 04/08, OR notes-> copious purulence with a small track running to the chest which was evacuated as well 2. MRSA bacteremia: Likely translocation from the arm wounds. Bacteremia has cleared with a negative 2D echo -Patient on antibiotics since 04/02, which were initiated at OSH on 04/02, transferred to [facility] on 04/06 - 04/09, blood culture = NGTD @ OSH -2/2 blood cultures positive at OSH on 04/02 -2D Echo OSH was negative for vegetations 3. Hx active IV drug use, On methadone 130 mg 4. Antibiotics -Vancomycin 04/07-04/09,04/11 -Zosyn, 04/07 -Clindamycin x 1, 04/08,04/11 - Linezolid, 04/09-04/11 5. Other. Her HIV antibody is negative. HCV antibody positive Recommendations: -Patient transferred out of the ICU. -Patient on antibiotics since 04/02, which should be initiated at the time she presented to OSH on 04/02, transferred to [facility] on 1005 -Today, dressings were changed by surgical team: Pictures reviewed and wound bed appears pink with viable tissue. - Team/telephonic nurse case manager messaged as difficulty with placement secondary to history of IV drug use and patient is from [place]. After multiple messages through the TT, it was agreed that team will look into transferring patient to [facility] to complete the antibiotic Rx and wound care of multiple wounds involving chest/upper extremities 1. Continue vancomycin IV for 4 wks after last negative blood culture, followed by 2 wks of p.o. doxycycline -Communicated with ID pharmacist about the alternate options 2. Continue clindamycin IV #4/5 Dr. Ackeramn will follow from tomorrow ANTIBIOTIC TIME OUT Current antibiotic/day of therapy: Anti-infectives (From admission, onward) Start Dose/Rate Route Frequency Ordered Stop 04/12/25 0130 vancomycin (VANCOCIN) 1,250 mg in sodium chloride (NS) 0.9 % 250 mL IVPB-WTD Placed in Followed by Linked Group 1,250 mg 166.7 mL/hr over 90 Minutes Intravenous Every 12 hours 04/11/25 1323 04/11/25 1330 clindamycin (CLEOCIN) IVPB 900 mg in 50 mL D5W (premix) 900 mg 100 mL/hr over 30 Minutes Intravenous Every 8 hours 04/11/25 1309 04/11/25 1309 vancomycin (VANCOCIN) IV dosing PER PHARMACY PROTOCOL Pharmacy Protocol Orders Pharmacy Protocol Orders 04/11/25 1309 OBJECTIVE Physical Examination: Vitals: 04/14/25 1133 BP: (!) 150/80 Pulse: 69 Resp: 17 Temp: 97.6 ??F (36.4 ??C) SpO2: 99% Weight: Height: General appearance - female Sleepy at the time of my encounter Lungs: Diminished breath sounds at the bases bilaterally Right arm in a dressing Right chest covered with a dressing Left arm covered in a dressing Pictures reviewed Results from last 7 days Lab Units 04/14/25 1140 04/14/25 0828 04/14/25 0407 04/14/25 0405 04/13/25 1146 04/13/25 0916 04/13/25 0415 04/13/25 0032 SODIUM mmol/L -- -- -- 137 -- 137 -- 133* POTASSIUM mmol/L -- -- -- 3.4 -- 3.7 -- 2.8* CHLORIDE mmol/L -- -- -- 104 -- 104 -- 98 CO2 mmol/L -- -- -- 26 -- 26 -- 27 BUN mg/dL -- -- -- 11 -- 8 -- 10 CREATININE mg/dL -- -- -- 0.74 -- 0.55 -- 0.58 CALCIUM mg/dL -- -- -- 7.3* -- 7.5* -- 7.5* GLUCOSE mg/dL -- -- -- 111* -- 116* -- 102* GLUCOSE, POC mg/dL 147* 139* 123* -- < > -- < > -- EGFR -- -- -- >90 -- >90 -- >90 < > = values in this interval not displayed. Blood Cultures: Lab Results Component Value Date CULTURE Sterile after 5 days 04/09/2025 Imaging Studies XR Chest 1 view-Portable Result Date: 04/08/2025 EXAMINATION: XR CHEST CLINICAL INFORMATION: Confirmation of IJ COMPARISON: Chest radiograph 04/02/2025 TECHNIQUE: Frontal view of the chest was obtained. FINDINGS: Right IJ CVC projects over the cavoatrial junction. Lungs are hypoexpanded. Asymmetric elevation of the right hemidiaphragm. Subsegmental atelectasis in the right lung base. No focal consolidation. Mild blunting of the right costophrenic sulcus. Cardiomediastinal silhouette is similar to prior. No acute osseous findings. 1. Right IJ CVC projects over the cavoatrial junction. No postprocedural pneumothorax. 2. Subsegmental atelectasis in the right lung base. 3. Possible trace right pleural effusion. Interpreted by: Emilee Casas MD Natural Gas Engineer I personally reviewed the images and the resident's preliminaryreport and AGREE with the report as it is now presented ([id number]). MRI Arm w w/o contrast-Lower right Result Date: 04/07/2025 EXAMINATION: MR UPPER EXTREMITY NON JOINT WITHOUT AND WITH CONTRAST, HUMERUS, RIGHT MRI OF THE UPPER EXTREMITY NONJOINT WITHOUT AND WITH CONTRAST FOREARM, RIGHT CLINICAL INFORMATION: Right arm abscess. COMPARISON: Multiple prior examinations most recent CT upper extremity exam April 07, 2025. TECHNIQUE: MRI of the right upper extremity/humerus was performed without and with contrast on a high-field MRI scanner. MRI of the right upper extremity/forearm was performed without and with contrast joy high-field MRI scanner. Contrast 7.5 mL of Magnevist contrast given intravenously during both portions of the exam. FINDINGS: Exam is significantly limited because of difficulties positioning the patient and patient movement. Additionally axial T2-weighted sequences of the forearm and axial T1-weighted sequences of the upper arm humerus could not be obtained. RIGHT UPPER EXTREMITY/HUMERUS: As noted on the CT examination again noted is a lobulated fluid collection extending along the deep surface of the pectoralis major muscle, coracobrachialis extending into the axilla with enhancement of the surrounding tissues. This is suspicious for an evolving abscess. The noted fluid collections above are continuous with the biceps muscle both within the muscle and surrounding the muscle deep to the fascia throughout the anterior compartment and extending the length of the upper extremity to the level of the proximal portion of the distal biceps tendon. Additional mild increased T2 signal and enhancement of the muscles compatible with generalized myositis. The fluid anterior to the anterior compartment deep to the fascia measures up to 1 cm. Also again noted is fluid extending between the teres minor and triceps muscles proximally and extending distally within the posterior compartment deep to the fascia surrounding and partially compressing the triceps muscles. The appearance is suspicious for subfascial abscess between the fascia and triceps muscles. This extends the length of the triceps muscles. This collection measures up to 1.6 cm anterior to posterior. Mild heterogeneous abnor mal signal and enhancement of the muscles compatible with myositis. There is generalized fluid signal in the subcutaneous soft tissues with partial enhancement compatible with a combination of edema and cellulitis throughout the upper arm. Osseous structures: Normal. No abnormal marrow signal. RIGHT UPPER EXTREMITY/FOREARM: As in the upper extremity there is feathery-appearing fluid- like signal noted throughout the forearm with partial enhancement compatible with a combination of edema and cellulitis. There is a lobulated fluid collection at least partially within the brachialradialis muscle and adjacent extensor muscles proximally beginning at the elbow joint and extending to the forearm over approximately 9 cm craniocaudal, 5 cm transverse and 1 cm AP. The collection appears to extend outside of the muscle deep to the fascia as it extends distally. There is heterogeneous enhancement of the noted muscles compatible with myositis. Remaining muscles of the forearm do not demonstrate any definite enhancement. Full evaluation is limited as we were unable to obtain T2-weighted sequences. No additional visible muscle collection noted. Osseous structures: There is possible ill-defined increased T2 signal in the olecranon which is not completely imaged throughout the examination in multiple planes Exam is significantly limited because of difficulties positioning the patient and patient movement.Diffuse generalized abnormality in the subcutaneous soft tissues throughout the right chest, upper arm and forearm compatible with a combination of edema and cellulitis and myositis. As seen on priorCT there are lobulated confluent fluid collections evolving multiple muscle groups and compartmentsas detailed above including the pectoralis major as well as extending distally within anterior and posterior compartment muscles and between the muscles and fascia in the upper arm consistent with and suspicious for abscesses along with myositis. In the proximal forearm anterolaterally there is a fluid collection at least partially within the brachial radialis and extensor muscles and between these muscles and overlying fascia suspicious for abscess along with adjacent myositis. Question abnormal increased T2 signal in the olecranon not completely assessed on this examination.. No bone erosion. Cannot exclude localized osteomyelitis. The remaining bones throughout the upper and lower extremity appear normal MRI Arm w w/o contrast-Upper right Result Date: 04/07/2025 EXAMINATION: MR UPPER EXTREMITY NON JOINT WITHOUT AND WITH CONTRAST, HUMERUS, RIGHT MRI OF THE UPPER EXTREMITY NONJOINT WITHOUT AND WITH CONTRAST FOREARM, RIGHT CLINICAL INFORMATION: Right arm abscess. COMPARISON: Multiple prior examinations most recent CT upper extremity exam April 07, 2025. TECHNIQUE: MRI of the right upper extremity/humerus was performed without and with contrast on a high-field MRI scanner. MRI of the right upper extremity/forearm was performed without and with contrast joy high-field MRI scanner. Contrast 7.5 mL of Magnevist contrast given intravenously during both portions of the exam. FINDINGS: Exam is significantly limited because of difficulties positioning the patient and patient movement. Additionally axial T2-weighted sequences of the forearm and axial T1-weighted sequences of the upper arm humerus could not be obtained. RIGHT UPPER EXTREMITY/HUMERUS: As noted on the CT examination again noted is a lobulated fluid collection extending along the deep surface of the pectoralis major muscle, coracobrachialis extending into the axilla with enhancement of the surrounding tissues. This is suspicious for an evolving abscess. The noted fluid collections above are continuous with the biceps muscle both within the muscle and surrounding the muscle deep to the fascia throughout the anterior compartment and extending the length of the upper extremity to the level of the proximal portion of the distal biceps tendon. Additional mild increased T2 signal and enhancement of the muscles compatible with generalized myositis. The fluid anterior to the anterior compartment deep to the fascia measures up to 1 cm. Also again noted is fluid extending between the teres minor and triceps muscles proximally and extending distally within the posterior compartment deep to the fascia surrounding and partially compressing the triceps muscles. The appearance is suspicious for subfascial abscess between the fascia and triceps muscles. This extends the length of the triceps muscles. This collection measures up to 1.6 cm anterior to posterior. Mild heterogeneous abnor mal signal and enhancement of the muscles compatible with myositis. There is generalized fluid signal in the subcutaneous soft tissues with partial enhancement compatible with a combination of edema and cellulitis throughout the upper arm. Osseous structures: Normal. No abnormal marrow signal. RIGHT UPPER EXTREMITY/FOREARM: As in the upper extremity there is feathery-appearing fluid- like signal noted throughout the forearm with partial enhancement compatible with a combination of edema and cellulitis. There is a lobulated fluid collection at least partially within the brachialradialis muscle and adjacent extensor muscles proximally beginning at the elbow joint and extending to the forearm over approximately 9 cm craniocaudal, 5 cm transverse and 1 cm AP. The collection appears to extend outside of the muscle deep to the fascia as it extends distally. There is heterogeneous enhancement of the noted muscles compatible with myositis. Remaining muscles of the forearm do not demonstrate any definite enhancement. Full evaluation is limited as we were unable to obtain T2-weighted sequences. No additional visible muscle collection noted. Osseous structures: There is possible ill-defined increased T2 signal in the olecranon which is not completely imaged throughout the examination in multiple planes Exam is significantly limited because of difficulties positioning the patient and patient movement.Diffuse generalized abnormality in the subcutaneous soft tissues throughout the right chest, upper arm and forearm compatible with a combination of edema and cellulitis and myositis. As seen on priorCT there are lobulated confluent fluid collections evolving multiple muscle groups and compartmentsas detailed above including the pectoralis major as well as extending distally within anterior and posterior compartment muscles and between the muscles and fascia in the upper arm consistent with and suspicious for abscesses along with myositis. In the proximal forearm anterolaterally there is a fluid collection at least partially within the brachial radialis and extensor muscles and between these muscles and overlying fascia suspicious for abscess along with adjacent myositis. Question abnormal increased T2 signal in the olecranon not completely assessed on this examination.. No bone erosion. Cannot exclude localized osteomyelitis. The remaining bones throughout the upper and lower extremity appear normal CT Upper extremity with contrast-Left Addendum Date: 04/07/2025 Result Date: 04/07/2025 EXAMINATION: CT left upper extremity without contrast CLINICAL INFORMATION: Abscess evaluation COMPARISON: MRI left humerus dated same day TECHNIQUE: Multiple axial CT images of the left upper extremity are acquired without contrast. Sagittal and coronal reconstructions are provided. 75 mL Omnipaque 300. DOSE LOWERING TECHNIQUES: This CT examination was performed using dose optimization techniques as appropriate, variously including the following: - Automated exposure control - Adjustment of mAand/or kV according to patient size (this includes techniques or standardized protocols for targeted exams where dose is matched to indication/reason for exam; i.e. extremities or head) - Use of iterative construction technique 1676.35 FINDINGS: Within the upper extremity, one appears deep to the biceps musculature there is a peripherally enhancing fluid collection originating approximately 10 cmproximal to the elbow joint and extending to the level of the elbow joint. At its distal aspect the fluid collection appears to extend to the subcutaneous soft tissues. No definite enhancing fluid collection distal to the subcutaneous component distal to the elbow joint. Diffuse subcutaneous soft tissue inflammation of the elbow and forearm. No acute osseous abnormality. Peripherally enhancing fluid collection within the upper extremity, approximately 10 cm proximal tothe elbow joint and extending to the level of the elbow joint. At its distal aspect the fluid collection appears to extend to the subcutaneous soft tissues. No definite enhancing fluid collection distal to the subcutaneous component distal to the elbow joint. Findings are concerning for abscess. CT Upper extremity with contrast-Right Result Date: 04/07/2025 EXAMINATION: CT UPPER EXTREMITY WITH CONTRAST, RIGHT CLINICAL INFORMATION: Concern for soft tissue infection of entire right upper extremity. COMPARISON: Outside CTA of the right upper extremity April 02, 2025. TECHNIQUE: CT scan of the right upper extremity was performed with contrast. Reconstruction imaging performed at the acquisition workstation. Contrast dose 80 mL of Omnipaque [address] examination was performed using dose optimization techniques as appropriate, variously including the o patient size (this includes techniques or standardized protocols for targeted exams where dose is matched to indication/reason for exam; i.e. extremities or head) *Use of iterative reconstruction technique DLP: 1068 mGy-cm FINDINGS The large [id number] and positioning limits evaluation. Subcutaneous soft tissues: There is feathery- appearing fluid-like density noted throughout including the right chest wall and into the right side of the abdomen, as well as circumferentially about the shoulder region, right upper extremity, right forearm and into the hand. No gas noted. MUSCLES/TENDONS: Right shoulder and chest region: There is ill-defined lobulated fluid extending within and along the superficial and deep surface of the pectoralis major and minor, coracobrachialis and teres major. In the upper arm, there is additional fluid extension and involvement of the anterior compartment muscles including the biceps, brachialis and brachioradialis along with the overlying subcutaneous soft tissues. There is also fluid extending along the outer aspect of the triceps muscles deep to the fascia the length of the muscle in the upper extremity. In the forearm and hand, there is no definite involvement of the muscles although there is extensive feathery-appearing fluid-like density in the subcutaneous soft tissues. The osseous structures are intact. The chest is also included in the examination. Numerous lymph nodes present within the axilla, likely reactive. There is consolidation in the right lower lobe and a right pleural effusion. 1. Extensive fluid-like density throughout the subcutaneous soft tissues of the right chest wall, right abdominal wall, right upper extremity and right forearm and hand. This is nonspecific but couldreflect edema, cellulitis or a combination of these. This appears to have progressed compared with outside imaging of the right upper extremity dating back to April 02, 2025. 2. There is fluid extending within and along the superficial and deep surface muscles and muscle groups in the right chest/chest wall and right upper extremity compatible with myositis and likely evolving phlegmon or abscesses which has progressed compared with prior outside imaging dating back to April 02, 2025. See details above. No definite involvement of the muscles in the forearm and hand 3. Right lower lobe consolidation and right pleural effusion. CT Extremity Left Archive for Reference Only Result Date: 04/07/2025 This study has been auto finalized and does not contain a result. CT Extremity Left Archive for Reference Only Result Date: 04/07/2025 This study has been auto finalized and does not contain a result. CR Extremity Right Archive for Reference only Result Date: 04/07/2025 This study has been auto finalized and does not contain a result. CT Extremity Right Archive for Reference Only Result Date: 04/07/2025 This study has been auto finalized and does not contain a result. CT Extremity Left Archive for Reference Only Result Date: 04/07/2025 This study has been auto finalized and does not contain a result. CT Extremity Right Archive for Reference Only Result Date: 04/07/2025 This study has been auto finalized and does not contain a result. CT Extremity Right Archive for Reference Only Result Date: 04/07/2025 This study has been auto finalized and does not contain a result. CR Chest Archive for Reference only Result Date: 04/07/2025 This study has been auto finalized and does not contain a result. ZEINAB Archive for reference only CT Result Date: 04/07/2025 This order has been auto-finalized and does not contain a result. ZEINAB Archive for reference only CT Result Date: 04/07/2025 This order has been auto-finalized and does not contain a result. CT Extremity Left Archive for Reference Only Result Date: 04/07/2025 This study has been auto finalized and does not contain a result. CT Extremity Left Archive for Reference Only Result Date: 04/07/2025 This study has been auto finalized and does not contain a result. CT Extremity Right Archive for Reference Only Result Date: 04/07/2025 This study has been auto finalized and does not contain a result. CR Chest Archive for Reference only Result Date: 04/07/2025 This study has been auto finalized and does not contain a result. CT Extremity Left Archive for Reference Only Result Date: 04/07/2025 This study has been auto finalized and does not contain a result. CT Extremity Right Archive for Reference Only Result Date: 04/07/2025 This study has been auto finalized and does not contain a result. CT Extremity Right Archive for Reference Only Result Date: 04/07/2025 This study has been auto finalized and does not contain a result. CR Extremity Right Archive for Reference only Result Date: 04/07/2025 This study has been auto finalized and does not contain a result. Current Medications: Current Medications[1] ALLERGIES: Allergies[2] I reviewed the prescribed Medications and new Laboratory Blood Work. Monitor for drug related adverse effects.>50 min spent in reviewing records, labs, imaging, coordination and formulation of plan of care I reviewed all new Imaging Studies (actual images) and compared to prior where applicable Of note, some information is being carried forward from prior records for informational purposes only and is being cited so that efficiency, safety and quality of this patient's care is not compromised This report was generated using [employer] dictation software. Although every attempt has been made by the provider to proofread this document, occasional misspellings and typographical errors Sign Anisa Perez MD, [facility], [facility] Infectious Diseases Available via [employer] 04/14/2025 12:38 PM [1] Current Facility-Administered Medications Medication Dose Route Frequency Provider Last Rate Last Admin acetaminophen (TYLENOL) tablet 975 mg 975 mg Oral Q6H [facility] Alanis Franco MD 975 mg at 04/14/25 0934 albuterol (PROVENTIL) (0.083%) 2.5 mg/3 mL nebulizer solution 2.5 mg 2.5 mg Nebulization Q6H PRN Alanis Franco MD baclofen (LIORESAL) tablet 10 mg 10 mg Oral Q8H [facility] Alanis Franco MD 10 mg at 04/14/25 0933 bisacodyl (DULCOLAX) suppository 10 mg 10 mg Rectal Daily PRN Alanis Franco MD 10 mg at 04/09/25 1129 chlorhexidine gluconate 2 % wipes - daily CHG application Topical Daily Alanis Franco MD 1 each at 04/13/258 clindamycin (CLEOCIN) IVPB 900 mg in 50 mL D5W (premix) 900 mg Intravenous Q8H Alanis Franco MD Stopped at 04/14/25 0640 cloNIDine (CATAPRES) tablet 0.1 mg 0.1 mg Oral BID Alanis Franco MD 0.1 mg at 04/14/25 0934 glucose (GLUTOSE 15) 40 % oral gel 37.5 g 1 Tube Oral Q15 Min PRN Alanis Franco MD Or glucose (GLUTOSE 15) 40 % oral gel 75 g 2 Tube Oral Q15 Min PRN Alanis Franco MD Or dextrose 50 % solution 12.5 g 12.5 g Intravenous Q15 Min PRN Alanis Franco MD 12.5 g at 04/09/25 1204 Or dextrose 50 % solution 25 g 25 g Intravenous Q15 Min PRN Alanis Franco MD Or glucagon (GLUCAGEN) injection 1 mg 1 mg Intramuscular Daily PRN Alanis Franco MD folic acid (FOLVITE) tablet 1 mg 1 mg Oral Daily Alanis Farnco MD 1 mg at 04/14/25 0934 gabapentin (NEURONTIN) capsule 300 mg 300 mg Oral Q8H HANNAH Franco MD 300 mg at 04/14/25 0935 heparin (porcine) 5000 unit/mL injection 5,000 Units 5,000 Units Subcutaneous Q8H [facility] Alanis Franco MD 5,000 Units at 04/14/25 0933 HYDROmorphone (DILAUDID) injection 1 mg 1 mg Intravenous Daily PRN Alanis Franco MD 1 mg at 04/14/25 0946 HYDROmorphone (DILAUDID) tablet 4 mg 4 mg Oral Q3H PRN Ani Romero APRN Or HYDROmorphone (DILAUDID) tablet 6 mg 6 mg Oral Q3H PRN Ani Romero APRN insulin lispro (HumaLOG/ADMELOG) 100 units/mL injection 1-6 Units 1-6 Units Subcutaneous Q4H [facility] Alanis Franco MD 1 Units at 04/10/25 0428 ketorolac (TORADOL) injection 15 mg 15 mg Intravenous Q6H [facility] Alanis Franco MD 15 mg at 04/14/25 0610 labetalol (NORMODYNE,TRANDATE) injection 10 mg 10 mg Intravenous Q4H PRN Alanis Franco MD 10 mg at 04/12/25 0307 methadone (DOLOPHINE) tablet 45 mg 45 mg Oral Q8H [facility] Alanis Franco MD 45 mg at 04/14/25 0610 multivitamin tablet 1 tablet 1 tablet Oral Daily Alanis Franco MD 1 tablet at 04/14/25 0934 naloxegol (MOVANTIK) tablet 12.5 mg 12.5 mg Oral Daily before breakfast Alanis Franco MD 12.5 mg at 04/14/25 0934 naloxone (NARCAN) 0.4 mg/mL injection 0.4 mg 0.4 mg Intravenous Q5 Min PRN Alanis Franco MD ondansetron (ZOFRAN) injection 4 mg 4 mg Intravenous Q6H PRN Alanis Franco MD polyethylene glycol (miraLAx) packet 17 g 17 g Oral Daily Alanis Franco MD 17 g at 04/13/25 0852 potassium phosphate and sodium phosphate (K PHOS NEUTRAL) tablet 500 mg 500 mg Oral With meals & nightly Kari Bain MD 500 mg at 04/14/25 0934 senna-docusate (SENNA-S) 8.6-50 MG tablet 1 tablet 1 tablet Oral Nightly Alanis Franco MD 1 tablet at 04/13/25 2128 thiamine mononitrate (VITAMIN B-1) tablet 100 mg 100 mg Oral Daily Alanis Franco MD 100 mg at 04/14/25 0934 vancomycin (VANCOCIN) IV dosing PER PHARMACY PROTOCOL Pharmacy Protocol Orders Pharmacy Protocol Orders Alanis Franco MD vancomycin (VANCOCIN) 1,250 mg in sodium chloride (NS) 0.9 % 250 mL IVPB-WTD 1,250 mg Intravenous Q12H Alanis Franco MD Stopped at 04/14/25 0216 [2] No Known Allergies * Ani Romero APRN - 04/14/2025 10:28 AM EDT Images from the original note were not included. Wound dressing change right arm medial wound Pre-Medication: 1 mg iv dilaudid Wound Assessment: Wound Bed: pink with viable tissue, no foul odor or purulent drainage. No surrounding erythema. Removal of 1 piece of kerlix wtd Dressing Application of : 1 piece of wtd kerlix/normal saline covered with abd pad and taped Patient Toleration: Well tolerated by patient. * Ani Romero APRN - 04/14/2025 10:23 AM EDT Images from the original note were not included. Wound dressing change right posterior wound Pre-Medication: 1 mg iv dilaudid Wound Assessment: Wound Bed: pink with viable tissue, no foul odor or purulent drainage. No surrounding erythema. Tunnels circumferentially Removal of 1piece of kerlix wtd Dressing Application of : 1 piece of wtd kerlix/normal saline covered with abd pad and taped Patient Toleration: Well tolerated by patient. * Edmond Marion DO - 04/14/2025 9:13 AM EDT Daily General Surgery Progress Note Assessment & Plan Molly Beasley is a 34 y.o. female with history of IVDU, anxiety, and depression who presented withRUE pain and swelling. She had an I&D of the RUE at an OSH which was closed with suture. CT wasdone and showed fluid collection tracking from RUE to right chest. Patient has had multiple debridements of right upper, left upper extremities on 04/07, 04/08, subsequent right chest wall debridement t hrough a sternal incision 04/09, debridement 04/10. Has required multiple units of pRBC for anemia 2/2 losses from the wound. She was transferred from the ICU to the floor on 04/13. Plan - Bedside packing change today with pre-medication - Antibiotics: vanc, clinda - Pain control: continue current regimen - Nausea control: Zofran prn - Diet: regular - IVF: LR 10 ml/hr, dpca carrier - DVT ppx: heparin - Encourage OOB - Encourage IS use - Strict I/Os Principal Problem: Hand abscess (POA: Yes) Active Problems: Abscess of arm, right (POA: Unknown) Abscess of left arm (POA: Unknown) Lung nodule (POA: Unknown) MRSA bacteremia (POA: Unknown) Infection of wound due to methicillin resistant Staphylococcus aureus (MRSA) (POA: Unknown) 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) IV drug user (POA: Unknown) Difficult intravenous access (POA: Unknown) ADHD (POA: Unknown) Resolved Problems: Subjective No acute events overnight. Pain well controlled under current regimen. Afebrile with VSS. Passing flatus, hsving bowel movements, is voiding, OOB and ambulating. Denies nausea or vomiting. Objective Last Vitals Pulse:71,Resp:17,BP:(!) 144/80 (rn notified),SpO2:98 %,Weight:68.5 kg (151 lb 0.2 oz) Temp Last 24 hrs: Temp Min: 97.1 ??F (36.2 ??C) Max: 98.7 ??F (37.1 ??C) Last temp: 97.3 ??F (36.3 ??C) (Tympanic) Intake/Output Summary (Last 24 hours) at 04/14/2025 0913 Last data filed at 04/14/2025 0718 Gross per 24 hour Intake 1012.2 ml Output 3000 ml Net -1987.8 ml Physical Exam General: no acute distress Head: normocephalic, atraumatic Eyes: no conjunctival injection or scleral icterus Cardiac: regular rate Respiratory: no respiratory distress Musculoskeletal: moving all limbs spontaneously Skin: RUE with dressings in place, LUE with dressing in place, R chest with dressing in place Neuro: alert, awake, responding appropriately Labs: White Blood Cell Count Date Value Ref Range Status 04/14/2025 13.7 (H) 4.0 - 11.0 Thou/uL Final Hemoglobin Date Value Ref Range Status 04/14/2025 7.3 (L) 11.7 - 15.7 g/dL Final Hematocrit Date Value Ref Range Status 04/14/2025 23.3 (L) 35.0 - 47.0 % Final Platelet Count Date Value Ref Range Status 04/14/2025 616 (H) 150 - 450 Thou/uL Final Lab Results Component Value Date NA 137 04/14/2025 K 3.4 04/14/2025 CL 104 04/14/2025 CO2 26 04/14/2025 BUN 11 04/14/2025 CREAT 0.74 04/14/2025 GLUC 139 (H) 04/14/2025 GLUC 111 (H) 04/14/2025 Lab Results Component Value Date CALCIUM 7.3 (L) 04/14/2025 MG 1.9 04/14/2025 PHOS 2.5 (L) 04/14/2025 No results found for: AST , ALT , ALKPHOS , BILITOT , BILIDIR , ALBUMIN , PROT No results found for: AMYLASE , LIPASE No results found for: PTT , LABPROT , INR Imaging Studies No results found. Electronically Signed Edmond Marion DO General Surgery PGY-1 04/14/2025 9:13 AM * Ani Brown, BABYSITTER - 04/13/2025 2:21 PM EDT [facility] CRITICAL CARE PROGRESS NOTE Shift: 6:30am-8:00pm ICU Attending: Dr. Ochoa Assessment & Plan Assessment and Plan reviewed in detail and updated if indicated. Any changes made to plan are reflected below. Unchanged diagnoses remain relevant Acute post-operative pain OUD (130 mg Methadone home dose confirmed) Active IV cocaine use - ?Consult anesthesia pain for R sided interscalene block - Dilaudid analyst sales 0.2 mg Q10m - Dilaudid 1mg IV daily prn for bedside dressing changes - Clonidine 0.1 mg BID - Tylenol 975mg ngt Q6H scheduled - Toradol 15mg IV Q8H scheduled x 15 doses - Methadone 45mg Q8H continued (in place of home dose) - Methadone outpatient maintenance dose confirmed as 130mg daily - Methadone clinic: [facility]) - Continue Gabapentin 300mg ngt Q8H - Continue Baclofen 10mg ngt Q8H - COWS monitoring Q4H - Obtain EKG daily to assess QTc in setting of methadone MRSA necrotizing soft tissue infection of right upper extremity Right upper extremity abscess Left upper extremity abscess antecubital fossa and synovitis in wrist Retained needles LUE 04/08: Debridement of RUE abscess extending to R shoulder and superficial tracts toward R chest/pectoralis major, washout, betadine soaked kerlix packing 04/09 CT Thorax, CT B/L upper extremity, CT soft tissue neck and Abdomen/pelvis w/ contrast: No evidence of extension of soft tissue infection or abscesses into neck, post-surgical changes in right anterior chest wall and RUE without organized collection, underlying intramuscular abscess cannot be excluded within right subpectoral area, small volume free fluid in abdomen/pelvis - ID consulted, appreciate recs - Wound team consulted - Continue antibiotics per ID section - Per orthopaedics, advised to stay out of the glenohumeral joint; advised a posterior incision to drain triceps collection - Dressing changes RUE/R chest/LUE at bedside by surgery daily MRSA bacteremia 04/02 blood cx +MRSA 04/07 Tissue Culture R arm: MRSA 04/09 BC: Sterile < 24 hours 04/10 TTE: LVEF 62%, small pericardial effusion, no echocardiographic evidence of endocarditis - No plans for takeback to OR at this time per EGS team - Trend fever/WBC curve - Continue Clindamycin (04/08- ) - Continue Vanco (04/08- ) - s/p Zosyn 04/02- 04/08) - s/p Ancef (04/07) - Low threshold to send repeat blood cx Constipation (on methadone) - NGT to suction - Zofran 4mg IV Q6H prn nausea - Movantik 12.5mg po daily - Miralax 17g po daily - Senna-docusate 1 tablet po nightly - Dulcolax 10mg supp daily PRN Acute blood loss anemia - Transfuse for H/H < 7/21 - Daily CBC or as otherwise clinically indicated VTE Time Out Caprini SCORE: 5 (04/12/2025 3:37 PM) Interpretation - High Risk IMPROVE SCORE: 0 (04/06/2025 10:21 PM) Interpretation - Low Risk Chemical Prophylaxis heparin (porcine) 5000 unit/mL injection 5,000 Units Subcutaneous Every 8 hours scheduled Heparin Sodium (Porcine) 5000 Units Last dose 04/13/2025 8:52 AM Mechanical Prophylaxis SCDs are ordered - Bilateral (Knee High) STRESS ULCER PROPHYLAXIS: Protonix Indications: coag (plt <50k, INR >1.5 or PTT >2, vent >48 hours, recent GIB<1 yr, Severe TBI (GCS<8 or SCI), thermal calderón >35% BSA, hydrocortisone >250mg QD, pred 60, 10 decadron emt intermediate low dose ASA or plavix , therapeutic anticoagulation Restraints: this patient is not requiring restraints at this time Lines/Devices: All invasive lines discussed during rounds and use reviewed 04/13/25. Central Line Present/Indication: Inadequate Peripheral Access as noted by IV therapy team Arterial Line Present/Indication: No Madeline Present Lynch Present/Indication: No Lynch Present ANTIBIOTIC TIME OUT Treatment Indication: NSTI RUE Current antibiotic/day of therapy: Anti-infectives (From admission, onward) Start Dose/Rate Route Frequency Ordered Stop 04/12/25 0130 vancomycin (VANCOCIN) 1,250 mg in sodium chloride (NS) 0.9 % 250 mL IVPB-WTD Placed in Followed by Linked Group 1,250 mg 166.7 mL/hr over 90 Minutes Intravenous Every 12 hours 04/11/25 1323 04/11/25 1330 clindamycin (CLEOCIN) IVPB 900 mg in 50 mL D5W (premix) 900 mg 100 mL/hr over 30 Minutes Intravenous Every 8 hours 04/11/25 1309 04/11/25 1309 vancomycin (VANCOCIN) IV dosing PER PHARMACY PROTOCOL Pharmacy Protocol Orders Pharmacy Protocol Orders 04/11/25 1309 Oral antibiotic transition date: tbd Anticipated Stop date: tbd Supportive Microbiology: 04/07 RUE wound cx +MRSA Subjective PMH/PSH: IVDU (OUD on methadone), anxiety, depression Hospital Course: 34 y.o. female with history of IVDU, anxiety, and depression who presented with RUE pain and swelling. She had an I&D of the RUE at an OSH which was closed with suture. On exam, she had significant erythema and induration that extended from the right elbow proximally. CT was done and showed fluid collection tracking from RUE to right chest. 04/07 BUE I&D w/ evacuation of about 1L of purulent fluid. RTOR 04/08 for additional I&D with extension of incision to shoulder, and Pulsavac with 6L fluid, superficial tracts into pectoralis major identified and flushed as well.Post-op pt remained intubated [facility] BUE/chest/neck soft tissues obtained withplan for RTOR 04/09. Shift Events: -Dressing change at bedside by surgery team, required Dilaudid 1mg IV x1 plus Dilaudid EXTERIOR DOOR INSTALLER (0.2mg x2 intervals) for total of 1.4mg Dilaudid, tolerated well -Awaiting floor transfer Objective/Physical Exam This note encompasses entire shift, physical exam completed at: 0700 Vitals: Pulse:67, Resp:13, BP:BP Min: 122/70 Max: 172/94 MAP: SpO2:99 % CVP: Temp Last 24 hrs: TempMin: 97.1 ??F (36.2 ??C) Max: 99.5 ??F (37.5 ??C) Temp: [97.1 ??F (36.2 ??C)-99.5 ??F (37.5 ??C)] 97.1 ??F (36.2 ??C) Pulse: [62-97] 67 Resp: [13-21] 13 BP: (120-184)/(58-97) 154/87 Neuro/HEENT: No sedation Awake, A/O x4, follows to move all extremities Behavioral/Sedation scales: CAM-ICU Delirium Present: Negative Salmon Agitation Sedation Scale (RASS) / Modified RASS: -1-->Wakes easily, drowsy Cardiac: RRR, S1/S2, no murmur Telemetry reviewed for past 24h and shows: NSR QTc: 462 Extremities: Warm, well perfused, 1+ generalized edema Pulmonary: Lung sounds are clear to auscultation, tolerating room air Gastrointestinal: Abdomen soft, non-distended, non-tender to palpation, +BS : Voids Musculoskeletal: -RUE with bulky dressing over betadine-soaked kerlix, motor and sensory intact, 2+edema of fingers -R anterior chest with bulky dressing over wound -LUE bulky dressing at antecubital fossa Data/Lab Values DRIPS/MEDICATIONS lactated ringers, 10 mL/hr, Last Rate: 10 mL/hr (04/13/25 1400) HYDROmorphone, CV: Temp: [97.1 ??F (36.2 ??C)-99.5 ??F (37.5 ??C)] 97.1 ??F (36.2 ??C) Pulse: [62-97] 67 Resp: [13-21] 13 BP: (120-184)/(58-97) 154/87 PULM: RR: 13,SpO2:99 % GI/NUTRITION: Diet Regular; Thin Liquids RENAL: I/O this shift: In: 750 [P.O.:360; I.V.:90; IV Piggyback:300] Out: - Intake/Output Summary (Last 24 hours) at 04/13/2025 1421 Last data filed at 04/13/2025 1400 Gross per 24 hour Intake 3804.77 ml Output 1200 ml Net 2604.77 ml Recent Labs 04/11/25 0057 04/12/25 0008 04/13/25 0032 04/13/25 0916 NA 139 141 133* 137 K 3.5 3.5 2.8* 3.7 CO2 26 28 27 26 CL 106 105 98 104 BUN 9 9 10 8 CREAT 0.61 0.54 0.58 0.55 CALCIUM 7.1* 7.1* 7.5* 7.5* MG 1.9 2.0 2.0 2.1 PHOS 4.8* 3.3 2.8 4.1 Calcium, Ionized Date Value Ref Range Status 04/10/2025 1.11 (L) 1.17 - 1.33 mmol/L Final HEME: Recent Labs 04/10/25 1513 04/11/25 0057 04/11/25 0630 04/12/25 0008 04/13/25 0032 HCT 21.8* 18.7* 25.3* 22.6* 23.9* HGB 7.4* 6.3* 8.3* 7.4* 7.8* WBC 17.8* 19.5* 22.1* 17.5* 17.4* PLT [phone] 474* 696* ID: Temp Min: 97.1 ??F (36.2 ??C) Max: 99.5 ??F (37.5 ??C) Recent Labs 04/11/25 0630 04/12/25 0008 04/13/25 0032 WBC 22.1* 17.5* 17.4* Cultures: See micro in EPIC ENDOCRINE: Results from last 7 days Lab Units 04/13/25 1146 04/13/25 0916 04/13/25 0848 04/13/25 0415 04/13/25 0032 04/13/25 0018 04/12/252009 GLUCOSE mg/dL -- 116* -- -- 102* -- -- GLUCOSE, POC mg/dL 125* -- 102* 91 -- 90 131* LINES/DRAINS/TUBES: All invasive lines discussed during rounds and use reviewed 04/13/25. Central Venous Catheter Central Line - Single Lumen 04/07/25 1500 internal jugular vein, right (Active) Number of days: 1 Indication: Caustic medications and More access needed Relevant data reviewed: I have reviewed all past medical history, all past surgical history, allergies, home medications, and inpatient data since admission. Imaging Studies: All interval imaging reviewed. None Family Update: No family present at bedside at time of exam. Care time spent in multiple visits throughout the day for collaboration/coordination of care exclusive of time spent performing separately billable medical procedures is 80 minutes. Patient seen and examined. Chart and clinical information reviewed. Previous notes and lab data reviewed. Case discussed with ICU attending, ICU team, primary team, available consultants and the patient's family when available. Of note, some information is being carried forward from prior records for informational purposes only and is being cited so that efficiency, safety and quality of this patient's care is not compromised. Activities included: Chart/data review, Documentation, Medication orders/management, Collaborating with consultants, Care, transfer of care and discharge plans, Nutritional support, Reviewing RN notes/previous records, Vital sign assessments, and Interpreting/reviewing lab tests Plan of care reviewed with ICU attending and in agreement with above. Signature Ani Brown APRN 2:21 PM 04/13/2025 * Cintia WillsDavid - 04/13/2025 9:15 AM EDT Pharmacokinetic Consult - Vancomycin Follow Up Note Molly Beasley is a 34 y.o. female currently receiving vancomycin 1250 mg IV every 12 hours for NSTI. Assessment: Analysis of the most recent level(s) using [employer] gives the following patient-specific pharmacokinetic parameters: CL: 4.69 L/hr V: 46.8 L T 1/2: 7.31 hours Using these values, the current vancomycin regimen is predicted to result in an AUC24 of 532 (correlated steady-state trough of 13.2 mcg/mL), which is within target AUC of 400-600. At this time, we will continue current regimen. The pharmacy team will plan to obtain the next level within 5-7 days. Pharmacy will continue to follow the patient's renal function, culture results, and clinical progress daily. Labs: Creatinine Date/Time Value Ref Range Status 04/13/2025 12:32 AM 0.58 0.40 - 1.10 mg/dL Final 04/12/2025 12:08 AM 0.54 0.40 - 1.10 mg/dL Final 04/11/2025 12:57 AM 0.61 0.40 - 1.10 mg/dL Final Blood Urea Nitrogen (BUN) Date/Time Value Ref Range Status 04/13/2025 12:32 AM 10 8 - 21 mg/dL Final 04/12/2025 12:08 AM 9 8 - 21 mg/dL Final 04/11/2025 12:57 AM 9 8 - 21 mg/dL Final Vancomycin, Random Date/Time Value Ref Range Status 04/13/2025 07:00 AM 20 mg/L Final Comment: No reference range established for random levels. Estimated Creatinine Clearance: 123.6 mL/min (by C-G formula based on SCr of 0.58 mg/dL). Cintia Wills PharmD * Rebeca Mcconnell MD - 04/13/2025 6:51 AM EDT Daily General Surgery Progress Note Assessment & Plan Molly Beasley is a 34 y.o. female with history of IVDU, anxiety, and depression who presented withRUE pain and swelling. She had an I&D of the RUE at an OSH which was closed with suture. On exam, she had significant erythema and induration that extended from the right elbow proximally. CT wasdone and showed fluid collection tracking from RUE to right chest. Patient has had multiple debridements of right upper, left upper extremities on 04/07, 04/08, subsequent right chest wall debridement through a sternal incision 04/09, debridement 04/10. Has required multiple units of pRBC for anemia 2/2 losses from the wound. TEG wnl. Uptrending WBC, but afebrile. Sedation weaned, patient on minimal prop and ketamine. Plan - No plans for takeback to OR at this time - Try to obtain NOK info - Bedside packing change to be performed by surgery - Follow WBC trend - Transfuse as needed - abx: zosyn, linezolid. Continue Zosyn until no GNR at 3 day update from cultures. - Appreciate recommendations from ID - Appreciate care per ICU. 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 Pain from incisions is controlled. Refused dressing change in the morning. No strike through on evaluation Objective Last Vitals Pulse:67,Resp:18,BP:125/61,SpO2:96 %,Weight:70.1 kg (154 lb 8.7 oz) Temp Last 24 hrs: Temp Min: 98.1 ??F (36.7 ??C) Max: 99.5 ??F (37.5 ??C) Last temp: 98.1 ??F (36.7 ??C) (Tympanic) Intake/Output Summary (Last 24 hours) at 04/13/2025 0651 Last data filed at 04/13/2025 0600 Gross per 24 hour Intake 3578.77 ml Output 2200 ml Net 1378.77 ml Physical Exam Gen: alert, oriented Card: regular rate Chest: Right sternal incision with [place] in place no surrounding erythema or drainage, right axillary incision with other end of [place] no surrounding erythema or drainage. Pulm: no increase work of breathing Right extremity: Omid wrap in place, there is 2+ radial pulse. Left extremity: surgical dressing in place. No drainage on dressing. VTE Time Out Caprini SCORE: 5 (04/12/2025 3:37 PM) Interpretation - High Risk IMPROVE SCORE: 0 (04/06/2025 10:21 PM) Interpretation - Low Risk Chemical Prophylaxis heparin (porcine) 5000 unit/mL injection 5,000 Units Subcutaneous Every 8 hours scheduled Heparin Sodium (Porcine) 5000 Units Last dose 04/13/2025 12:20 AM Mechanical Prophylaxis SCDs are ordered - Bilateral (Knee High) Labs: White Blood Cell Count Date Value Ref Range Status 04/13/2025 17.4 (H) 4.0 - 11.0 Thou/uL Final Hemoglobin Date Value Ref Range Status 04/13/2025 7.8 (L) 11.7 - 15.7 g/dL Final Hematocrit Date Value Ref Range Status 04/13/2025 23.9 (L) 35.0 - 47.0 % Final Platelet Count Date Value Ref Range Status 04/13/2025 696 (H) 150 - 450 Thou/uL Final Lab Results Component Value Date NA 133 (L) 04/13/2025 K 2.8 (L) 04/13/2025 CL 98 04/13/2025 CO2 27 04/13/2025 BUN 10 04/13/2025 CREAT 0.58 04/13/2025 GLUC 91 04/13/2025 GLUC 102 (H) 04/13/2025 Lab Results Component Value Date CALCIUM 7.5 (L) 04/13/2025 MG 2.0 04/13/2025 PHOS 2.8 04/13/2025 No results found for: AST , ALT , ALKPHOS , BILITOT , BILIDIR , ALBUMIN , PROT No results found for: AMYLASE , LIPASE No results found for: PTT , LABPROT , INR Imaging Studies XR Chest 1 view-Portable Result Date: 04/08/2025 EXAMINATION: XR CHEST CLINICAL INFORMATION: Confirmation of IJ COMPARISON: Chest radiograph 04/02/2025 TECHNIQUE: Frontal view of the chest was obtained. FINDINGS: Right IJ CVC projects over the cavoatrial junction. Lungs are hypoexpanded. Asymmetric elevation of the right hemidiaphragm. Subsegmental atelectasis in the right lung base. No focal consolidation. Mild blunting of the right costophrenic sulcus. Cardiomediastinal silhouette is similar to prior. No acute osseous findings. 1. Right IJ CVC projects over the cavoatrial junction. No postprocedural pneumothorax. 2. Subsegmental atelectasis in the right lung base. 3. Possible trace right pleural effusion. Interpreted by: Emilee Casas MD Natural Gas Engineer I personally reviewed the images and the resident's preliminaryreport and AGREE with the report as it is now presented ([id number]). MRI Arm w w/o contrast-Lower right Result Date: 04/07/2025 EXAMINATION: MR UPPER EXTREMITY NON JOINT WITHOUT AND WITH CONTRAST, HUMERUS, RIGHT MRI OF THE UPPER EXTREMITY NONJOINT WITHOUT AND WITH CONTRAST FOREARM, RIGHT CLINICAL INFORMATION: Right arm abscess. COMPARISON: Multiple prior examinations most recent CT upper extremity exam April 07, 2025. TECHNIQUE: MRI of the right upper extremity/humerus was performed without and with contrast on a high-field MRI scanner. MRI of the right upper extremity/forearm was performed without and with contrast joy high-field MRI scanner. Contrast 7.5 mL of Magnevist contrast given intravenously during both portions of the exam. FINDINGS: Exam is significantly limited because of difficulties positioning the patient and patient movement. Additionally axial T2-weighted sequences of the forearm and axial T1-weighted sequences of the upper arm humerus could not be obtained. RIGHT UPPER EXTREMITY/HUMERUS: As noted on the CT examination again noted is a lobulated fluid collection extending along the deep surface of the pectoralis major muscle, coracobrachialis extending into the axilla with enhancement of the surrounding tissues. This is suspicious for an evolving abscess. The noted fluid collections above are continuous with the biceps muscle both within the muscle and surrounding the muscle deep to the fascia throughout the anterior compartment and extending the length of the upper extremity to the level of the proximal portion of the distal biceps tendon. Additional mild increased T2 signal and enhancement of the muscles compatible with generalized myositis. The fluid anterior to the anterior compartment deep to the fascia measures up to 1 cm. Also again noted is fluid extending between the teres minor and triceps muscles proximally and extending distally within the posterior compartment deep to the fascia surrounding and partially compressing the triceps muscles. The appearance is suspicious for subfascial abscess between the fascia and triceps muscles. This extends the length of the triceps muscles. This collection measures up to 1.6 cm anterior to posterior. Mild heterogeneous abnor mal signal and enhancement of the muscles compatible with myositis. There is generalized fluid signal in the subcutaneous soft tissues with partial enhancement compatible with a combination of edema and cellulitis throughout the upper arm. Osseous structures: Normal. No abnormal marrow signal. RIGHT UPPER EXTREMITY/FOREARM: As in the upper extremity there is feathery-appearing fluid- like signal noted throughout the forearm with partial enhancement compatible with a combination of edema and cellulitis. There is a lobulated fluid collection at least partially within the brachialradialis muscle and adjacent extensor muscles proximally beginning at the elbow joint and extending to the forearm over approximately 9 cm craniocaudal, 5 cm transverse and 1 cm AP. The collection appears to extend outside of the muscle deep to the fascia as it extends distally. There is heterogeneous enhancement of the noted muscles compatible with myositis. Remaining muscles of the forearm do not demonstrate any definite enhancement. Full evaluation is limited as we were unable to obtain T2-weighted sequences. No additional visible muscle collection noted. Osseous structures: There is possible ill-defined increased T2 signal in the olecranon which is not completely imaged throughout the examination in multiple planes Exam is significantly limited because of difficulties positioning the patient and patient movement.Diffuse generalized abnormality in the subcutaneous soft tissues throughout the right chest, upper arm and forearm compatible with a combination of edema and cellulitis and myositis. As seen on priorCT there are lobulated confluent fluid collections evolving multiple muscle groups and compartmentsas detailed above including the pectoralis major as well as extending distally within anterior and posterior compartment muscles and between the muscles and fascia in the upper arm consistent with and suspicious for abscesses along with myositis. In the proximal forearm anterolaterally there is a fluid collection at least partially within the brachial radialis and extensor muscles and between these muscles and overlying fascia suspicious for abscess along with adjacent myositis. Question abnormal increased T2 signal in the olecranon not completely assessed on this examination.. No bone erosion. Cannot exclude localized osteomyelitis. The remaining bones throughout the upper and lower extremity appear normal MRI Arm w w/o contrast-Upper right Result Date: 04/07/2025 EXAMINATION: MR UPPER EXTREMITY NON JOINT WITHOUT AND WITH CONTRAST, HUMERUS, RIGHT MRI OF THE UPPER EXTREMITY NONJOINT WITHOUT AND WITH CONTRAST FOREARM, RIGHT CLINICAL INFORMATION: Right arm abscess. COMPARISON: Multiple prior examinations most recent CT upper extremity exam April 07, 2025. TECHNIQUE: MRI of the right upper extremity/humerus was performed without and with contrast on a high-field MRI scanner. MRI of the right upper extremity/forearm was performed without and with contrast joy high-field MRI scanner. Contrast 7.5 mL of Magnevist contrast given intravenously during both portions of the exam. FINDINGS: Exam is significantly limited because of difficulties positioning the patient and patient movement. Additionally axial T2-weighted sequences of the forearm and axial T1-weighted sequences of the upper arm humerus could not be obtained. RIGHT UPPER EXTREMITY/HUMERUS: As noted on the CT examination again noted is a lobulated fluid collection extending along the deep surface of the pectoralis major muscle, coracobrachialis extending into the axilla with enhancement of the surrounding tissues. This is suspicious for an evolving abscess. The noted fluid collections above are continuous with the biceps muscle both within the muscle and surrounding the muscle deep to the fascia throughout the anterior compartment and extending the length of the upper extremity to the level of the proximal portion of the distal biceps tendon. Additional mild increased T2 signal and enhancement of the muscles compatible with generalized myositis. The fluid anterior to the anterior compartment deep to the fascia measures up to 1 cm. Also again noted is fluid extending between the teres minor and triceps muscles proximally and extending distally within the posterior compartment deep to the fascia surrounding and partially compressing the triceps muscles. The appearance is suspicious for subfascial abscess between the fascia and triceps muscles. This extends the length of the triceps muscles. This collection measures up to 1.6 cm anterior to posterior. Mild heterogeneous abnor mal signal and enhancement of the muscles compatible with myositis. There is generalized fluid signal in the subcutaneous soft tissues with partial enhancement compatible with a combination of edema and cellulitis throughout the upper arm. Osseous structures: Normal. No abnormal marrow signal. RIGHT UPPER EXTREMITY/FOREARM: As in the upper extremity there is feathery-appearing fluid- like signal noted throughout the forearm with partial enhancement compatible with a combination of edema and cellulitis. There is a lobulated fluid collection at least partially within the brachialradialis muscle and adjacent extensor muscles proximally beginning at the elbow joint and extending to the forearm over approximately 9 cm craniocaudal, 5 cm transverse and 1 cm AP. The collection appears to extend outside of the muscle deep to the fascia as it extends distally. There is heterogeneous enhancement of the noted muscles compatible with myositis. Remaining muscles of the forearm do not demonstrate any definite enhancement. Full evaluation is limited as we were unable to obtain T2-weighted sequences. No additional visible muscle collection noted. Osseous structures: There is possible ill-defined increased T2 signal in the olecranon which is not completely imaged throughout the examination in multiple planes Exam is significantly limited because of difficulties positioning the patient and patient movement.Diffuse generalized abnormality in the subcutaneous soft tissues throughout the right chest, upper arm and forearm compatible with a combination of edema and cellulitis and myositis. As seen on priorCT there are lobulated confluent fluid collections evolving multiple muscle groups and compartmentsas detailed above including the pectoralis major as well as extending distally within anterior and posterior compartment muscles and between the muscles and fascia in the upper arm consistent with and suspicious for abscesses along with myositis. In the proximal forearm anterolaterally there is a fluid collection at least partially within the brachial radialis and extensor muscles and between these muscles and overlying fascia suspicious for abscess along with adjacent myositis. Question abnormal increased T2 signal in the olecranon not completely assessed on this examination.. No bone erosion. Cannot exclude localized osteomyelitis. The remaining bones throughout the upper and lower extremity appear normal CT Upper extremity with contrast-Left Addendum Date: 04/07/2025 ADDENDUM #1 Addendum: Reactive left axillary lymph nodes. Result Date: 04/07/2025 EXAMINATION: CT left upper extremity without contrast CLINICAL INFORMATION: Abscess evaluation COMPARISON: MRI left humerus dated same day TECHNIQUE: Multiple axial CT images of the left upper extremity are acquired without contrast. Sagittal and coronal reconstructions are provided. 75 mL Omnipaque 300. DOSE LOWERING TECHNIQUES: This CT examination was performed using dose optimization techniques as appropriate, variously including the following: - Automated exposure control - Adjustment of mAand/or kV according to patient size (this includes techniques or standardized protocols for targeted exams where dose is matched to indication/reason for exam; i.e. extremities or head) - Use of iterative construction technique 1676.35 FINDINGS: Within the upper extremity, one appears deep to the biceps musculature there is a peripherally enhancing fluid collection originating approximately 10 cmproximal to the elbow joint and extending to the level of the elbow joint. At its distal aspect the fluid collection appears to extend to the subcutaneous soft tissues. No definite enhancing fluid collection distal to the subcutaneous component distal to the elbow joint. Diffuse subcutaneous soft tissue inflammation of the elbow and forearm. No acute osseous abnormality. Peripherally enhancing fluid collection within the upper extremity, approximately 10 cm proximal tothe elbow joint and extending to the level of the elbow joint. At its distal aspect the fluid collection appears to extend to the subcutaneous soft tissues. No definite enhancing fluid collection distal to the subcutaneous component distal to the elbow joint. Findings are concerning for abscess. CT Upper extremity with contrast-Right Result Date: 04/07/2025 EXAMINATION: CT UPPER EXTREMITY WITH CONTRAST, RIGHT CLINICAL INFORMATION: Concern for soft tissue infection of entire right upper extremity. COMPARISON: Outside CTA of the right upper extremity April 02, 2025. TECHNIQUE: CT scan of the right upper extremity was performed with contrast. Reconstruction imaging performed at the acquisition workstation. Contrast dose 80 mL of Omnipaque [address] examination was performed using dose optimization techniques as appropriate, variously including the following: *Automated exposure control *Adjustment of mA and/or kV according to patient size (this includes techniques or standardized protocols for targeted exams where dose is m atched to indication/reason for exam; i.e. extremities or head) *Use of iterative reconstruction technique DLP: 1068 mGy-cm FINDINGS The large [id number] and positioning limits evaluation. Subcutaneous soft tissues: There is feathery-appearing fluid-like density noted throughout including the right chest wall and into the right side of the abdomen, as well as circumferentially about the shoulder region, right upper extremity, right forearm and into the hand. No gas noted. MUSCLES/TENDONS: Right shoulder and chest region: There is ill-defined lobulated fluid extending within and along the superficial and deep surface of the pectoralis major and minor, coracobrachialis and teres major. In the upper arm, there is additional fluid extension and involvement of the anterior compartment muscles including the biceps, brachialis and brachioradialis along with the overlying subcutaneous soft tissues. There is also fluid extending along the outer aspect of the triceps muscles deep to the fascia the length of the muscle in the upper extremity. In the forearm and hand, there is no definite involvement of the muscles although there is extensive feathery-appearing fluid-like density in the subcutaneous soft tissues. The osseous structures are intact. The chest is also included in the examination. Numerous lymph nodes present within the axilla, likely reactive. There is consolidation in the right lower lobe and a right pleural effusion. 1. Extensive fluid-like density throughout the subcutaneous soft tissues of the right chest wall, right abdominal wall, right upper extremity and right forearm and hand. This is nonspecific but couldreflect edema, cellulitis or a combination of these. This appears to have progressed compared with outside imaging of the right upper extremity dating back to April 02, 2025. 2. There is fluid extending within and along the superficial and deep surface muscles and muscle groups in the right chest/chest wall and right upper extremity compatible with myositis and likely evolving phlegmon or abscesses which has progressed compared with prior outside imaging dating back to April 02, 2025. See details above. No definite involvement of the muscles in the forearm and hand 3. Right lower lobe consolidation and right pleural effusion. Electronically Signed Rebeca Mcconnell MD General Surgery, PGY-2 04/13/2025 6:51 AM * Ani Brown, BABYSITTER - 04/12/2025 11:00 AM EDT C8[facility] CRITICAL CARE PROGRESS NOTE Shift: 6:30am-8:00pm ICU Attending: Dr. Ochoa Assessment & Plan The patient remains critically ill/injured and/or remains at high risk for life threatening complications due to: Assessment and Plan reviewed in detail and updated if indicated. Any changes made to plan are reflected below. Unchanged diagnoses remain relevant Acute post-operative pain OUD (130 mg Methadone home dose confirmed) Active IV cocaine use - ?Consult anesthesia pain for R sided interscalene block - Dilaudid infusion to dilaudid analyst sales 0.2 mg Q10m - Stopped ketamine infusion - Clonidine 0.1 mg BID - Tylenol 975mg ngt Q6H scheduled - Toradol 15mg IV Q8H scheduled x 15 doses - Methadone 45mg Q8H continued (in place of home dose) - Methadone outpatient maintenance dose confirmed as 130mg daily - Methadone clinic: [facility] ([facility]) - Continue Gabapentin 300mg ngt Q8H - Continue Baclofen 10mg ngt Q8H - COWS monitoring Q4H - Obtain EKG daily to assess QTc in setting of methadone MRSA necrotizing soft tissue infection of right upper extremity Right upper extremity abscess Left upper extremity abscess antecubital fossa and synovitis in wrist 04/08: Debridement of RUE abscess extending to R shoulder and superficial tracts toward R chest/pectoralis major, washout, betadine soaked kerlix packing 04/09 CT Thorax, CT B/L upper extremity, CT soft tissue neck and Abdomen/pelvis w/ contrast: No evidence of extension of soft tissue infection or abscesses into neck, post-surgical changes in right anterior chest wall and RUE without organized collection, underlying intramuscular abscess cannot be excluded within right subpectoral area, small volume free fluid in abdomen/pelvis - ID consulted, appreciate recs - Wound team consulted - RUE dressing changes per surgery - Continue antibiotics per ID section - Per orthopaedics, advised to stay out of the glenohumeral joint; advised a posterior incision to drain triceps collection - Dressing change at bedside by surgery today MRSA bacteremia 04/02 blood cx +MRSA 04/07 Tissue Culture R arm: MRSA 04/09 BC: Sterile < 24 hours 04/10 TTE: LVEF 62%, small pericardial effusion, no echocardiographic evidence of endocarditis - Trend fever/WBC curve - Low threshold to send repeat blood cx Abx Hx: - Ancef 04/07 - Outside hospital (Vanc/Zosyn 04/02 - ) - Clindamycin 900mg (04/08) Constipation (on methadone) - NGT to suction - Protonix 40 mg every day - Bowel Regimen (dulcolax, zofran, miralax, senna) - Movantik 25mg Acute blood loss anemia - Transfuse for H/H < 01/20 - Daily CBC or as otherwise clinically indicated VTE Time Out Caprini SCORE: 5 (04/12/2025 3:37 PM) Interpretation - High Risk IMPROVE SCORE: 0 (04/06/2025 10:21 PM) Interpretation - Low Risk Chemical Prophylaxis heparin (porcine) 5000 unit/mL injection 5,000 Units Subcutaneous Every 8 hours scheduled Heparin Sodium (Porcine) 5000 Units Last dose 04/12/2025 8:51 AM Mechanical Prophylaxis SCDs are ordered - Bilateral (Knee High) STRESS ULCER PROPHYLAXIS: Protonix Indications: coag (plt <50k, INR >1.5 or PTT >2, vent >48 hours, recent GIB<1 yr, Severe TBI (GCS<8 or SCI), thermal calderón >35% BSA, hydrocortisone >250mg QD, pred 60, 10 decadron snf low dose ASA or plavix , therapeutic anticoagulation Restraints: this patient is not requiring restraints at this time Lines/Devices: All invasive lines discussed during rounds and use reviewed 04/12/25. Central Line Present/Indication: Inadequate Peripheral Access as noted by IV therapy team Arterial Line Present/Indication: No Madeline Present Lynch Present/Indication: Lynch Present, no current indications, discontinue lynch ANTIBIOTIC TIME OUT Treatment Indication: NSTI RUE Current antibiotic/day of therapy: Anti-infectives (From admission, onward) Start Dose/Rate Route Frequency Ordered Stop 04/12/25 0130 vancomycin (VANCOCIN) 1,250 mg in sodium chloride (NS) 0.9 % 250 mL IVPB-WTD Placed in Followed by Linked Group 1,250 mg 166.7 mL/hr over 90 Minutes Intravenous Every 12 hours 04/11/25 1323 04/11/25 1330 clindamycin (CLEOCIN) IVPB 900 mg in 50 mL D5W (premix) 900 mg 100 mL/hr over 30 Minutes Intravenous Every 8 hours 04/11/25 1309 04/11/25 1309 vancomycin (VANCOCIN) IV dosing PER PHARMACY PROTOCOL Pharmacy Protocol Orders Pharmacy Protocol Orders 04/11/25 1309 Oral antibiotic transition date: tbd Anticipated Stop date: tbd Supportive Microbiology: 04/07 RUE wound cx +MRSA Subjective PMH/PSH: IVDU (OUD on methadone), anxiety, depression Hospital Course: 34 y.o. female with history of IVDU, anxiety, and depression who presented with RUE pain and swelling. She had an I&D of the RUE at an OSH which was closed with suture. On exam, she had significant erythema and induration that extended from the right elbow proximally. CT was done and showed fluid collection tracking from RUE to right chest. 04/07 BUE I&D w/ evacuation of about 1L of purulent fluid. RTOR 04/08 for additional I&D with extension of incision to shoulder, and Pulsavac with 6L fluid, superficial tracts into pectoralis major identified and flushed as well.Post-op pt remained intubated [facility] BUE/chest/neck soft tissues obtained withplan for RTOR 04/09. Shift Events: -Extubated to nasal cannula early AM, tolerating 4LNC -Started Dilaudid EXTERIOR DOOR INSTALLER (0.2mg EXTERIOR DOOR INSTALLER dose Q10m), decreased Methadone to home dose split Q8H -RUE/chest/LUE wound dressing changed at bedside by surgery today Objective/Physical Exam This note encompasses entire shift, physical exam completed at: 0655 Vitals: Pulse:84, Resp:19, BP:BP Min: 121/61 Max: 203/86 MAP: SpO2:97 % CVP: Temp Last 24 hrs: TempMin: 98.1 ??F (36.7 ??C) Max: 99.3 ??F (37.4 ??C) Temp: [98.1 ??F (36.7 ??C)-99.3 ??F (37.4 ??C)] 99.1 ??F (37.3 ??C) Pulse: [67-91] 84 Resp: [8-26] 19 BP: (121-203)/(61-92) 121/61 Neuro/HEENT: No sedation Awake, A/O x4, follows to move all extremities Behavioral/Sedation scales: CAM-ICU Delirium Present: Negative Salmon Agitation Sedation Scale (RASS) / Modified RASS: -2-->Wakes slowly, very drowsy/light sedation Cardiac: RRR, S1/S2, no murmur Telemetry reviewed for past 24h and shows: NSR QTc: 450 Extremities: Warm, well perfused, 1+ generalized edema Pulmonary: Lung sounds are clear to auscultation, tolerating nasal cannula Gastrointestinal: Abdomen soft, non-distended, non-tender to palpation, +BS : Urinary catheter Draining clear yellow urine Musculoskeletal: RUE with bulky dressing over betadine-soaked kerlix, motor and sensory intact, 2+edema of fingers Data/Lab Values DRIPS/MEDICATIONS lactated ringers, 50 mL/hr, Last Rate: 50 mL/hr (04/12/25 1400) HYDROmorphone, CV: Temp: [98.1 ??F (36.7 ??C)-99.3 ??F (37.4 ??C)] 99.1 ??F (37.3 ??C) Pulse: [67-91] 84 Resp: [8-26] 19 BP: (121-203)/(61-92) 121/61 Recent Labs 04/09/25 1720 04/09/252128 CKTOTAL 262* 123 Recent Labs 04/09/25 1720 04/09/252128 CKTOTAL 262* 123 PULM: RR: 19,SpO2:97 % GI/NUTRITION: Diet NPO; Meds RENAL: I/O this shift: In: 899.6 [P.O.:45; I.V.:434.6; NG/GT:120; IV Piggyback:300] Out: 1000 [Urine:600; Other:400] Intake/Output Summary (Last 24 hours) at 04/12/2025 1538 Last data filed at 04/12/2025 1400 Gross per 24 hour Intake 2632.24 ml Output 3650 ml Net -1017.76 ml Recent Labs 04/09/25 1720 04/10/25 0006 04/11/257 04/12/25 0008 NA 136 136 139 141 K 3.9 4.3 3.5 3.5 CO2 26 25 26 28 CL 104 102 106 105 BUN 7* 9 9 9 CREAT 0.58 0.54 0.61 0.54 CALCIUM 8.7 7.5* 7.1* 7.1* MG 1.7 1.9 1.9 2.0 PHOS 5.2* 5.3* 4.8* 3.3 Calcium, Ionized Date Value Ref Range Status 04/10/2025 1.11 (L) 1.17 - 1.33 mmol/L Final Recent Labs 04/09/25 1720 LACTIC 1.4 HEME: Recent Labs 04/09/25 1720 04/10/25 0006 04/10/25 0914 04/10/25 1513 04/11/257 04/11/25 0630 04/12/25 0008 HCT 26.6* 21.7* 23.9* 21.8* 18.7* 25.3* 22.6* HGB 8.3* 7.2* 8.1* 7.4* 6.3* 8.3* 7.4* WBC 17.1* 30.3* 20.8* 17.8* 19.5* 22.1* 17.5* PLT 411 412 402 411 434 433 474* ID: Temp Min: 98.1 ??F (36.7 ??C) Max: 99.3 ??F (37.4 ??C) Recent Labs 04/11/25 0057 04/11/25 0630 04/12/25 0008 WBC 19.5* 22.1* 17.5* Cultures: See micro in EPIC ENDOCRINE: Results from last 7 days Lab Units 04/12/25 1144 04/12/25 0850 04/12/25 0351 04/12/25 0008 04/11/25 2354 04/11/25 2045 04/11/25 1601 GLUCOSE mg/dL -- -- -- 87 -- -- -- GLUCOSE, POC mg/dL 104* 106* 95 -- 90 89 107* LINES/DRAINS/TUBES: All invasive lines discussed during rounds and use reviewed 04/12/25. Central Venous Catheter Central Line - Single Lumen 04/07/25 1500 internal jugular vein, right (Active) Number of days: 1 Indication: Caustic medications and More access needed Lynch Urethral Catheter (Adult) 04/08/25 2018 latex 16 Fr 10 mL balloon size 10 mL balloon inflation volume (Active) Number of days: 0 Indication: Strict I/O Relevant data reviewed: I have reviewed all past medical history, all past surgical history, allergies, home medications, and inpatient data since admission. Imaging Studies: All interval imaging reviewed. CXR Report reviewed and Image reviewed CT Scan Report reviewed and Image reviewed Family Update: No family present at bedside at time of exam. Critical Care time spent in multiple visits throughout the day for collaboration/coordination of care exclusive of time spent performing separately billable medical procedures is 70 minutes. Patient seen and examined. Chart and clinical information reviewed. Previous notes and lab data reviewed. Case discussed with ICU attending, ICU team, primary team, available consultants and the patient's family when available. Of note, some information is being carried forward from prior records for informational purposes only and is being cited so that efficiency, safety and quality of this patient's care is not compromised. Activities included: Chart/data review, Documentation, Medication orders/management, Collaborating with consultants, Care, transfer of care and discharge plans, Nutritional support, Interpreting/reviewing radiologic studies, Reviewing RN notes/previous records, Vital sign assessments, and Interpreti ng/reviewing lab tests Plan of care reviewed with ICU attending and in agreement with above. Signature Ani Brown APRN 3:38 PM 04/12/2025 * Clarice Mary, DO - 04/12/2025 2:09 AM EDT Daily General Surgery Progress Note Assessment & Plan Molly Beasley is a 34 y.o. female with history of IVDU, anxiety, and depression who presented withRUE pain and swelling. She had an I&D of the RUE at an OSH which was closed with suture. On exam, she had significant erythema and induration that extended from the right elbow proximally. CT wasdone and showed fluid collection tracking from RUE to right chest. Patient has had multiple debridements of right upper, left upper extremities on 04/07, 04/08, subsequent right chest wall debridement through a sternal incision 04/09, debridement 04/10. Has required multiple units of pRBC for anemia 2/2 losses from the wound. TEG wnl. Uptrending WBC, but afebrile. Sedation weaned, patient on minimal prop and ketamine. Plan - No plans for takeback to OR at this time - Try to obtain NOK info - Bedside packing change to be performed by surgery - Follow WBC trend - Transfuse as needed - Wean to extubate - abx: zosyn, linezolid. Continue Zosyn until no GNR at 3 day update from cultures. - Recommend starting enteral feeds - Appreciate recommendations from ID - Appreciate care per ICU. 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 Unable to obtain complete ROS as she is still intubated. Objective Last Vitals Pulse:78,Resp:13,BP:(!) 151/74,SpO2:99 %,Weight:75 kg (165 lb 5.5 oz) Temp Last 24 hrs: Temp Min: 97.2 ??F (36.2 ??C) Max: 98.6 ??F (37 ??C) Last temp: 98.6 ??F (37 ??C) Intake/Output Summary (Last 24 hours) at 04/12/2025 0209 Last data filed at 04/12/2025 0200 Gross per 24 hour Intake 3347.8 ml Output 3180 ml Net 167.8 ml Physical Exam Gen: Intubated sedated Card: regular rate Chest: Right sternal incision with [place] in place no surrounding erythema or drainage, right axillary incision with other end of [place] no surrounding erythema or drainage. Pulm: Intubated on CPAP Right extremity: Omid wrap in place, there is 2+ radial pulse. Left extremity: surgical dressing in place. No drainage on dressing. VTE Time Out IMPROVE SCORE: 0 (04/06/2025 10:21 PM) Interpretation - Low Risk VTE risk low and NOT reassessed in last 5 days - Click here to document Chemical Prophylaxis heparin (porcine) 5000 unit/mL injection 5,000 Units Subcutaneous Every 8 hours scheduled Heparin Sodium (Porcine) 5000 Units Last dose 04/11/2025 11:59 PM Mechanical Prophylaxis SCDs are ordered - Bilateral (Knee High) Labs: White Blood Cell Count Date Value Ref Range Status 04/12/2025 17.5 (H) 4.0 - 11.0 Thou/uL Final Hemoglobin Date Value Ref Range Status 04/12/2025 7.4 (L) 11.7 - 15.7 g/dL Final Hematocrit Date Value Ref Range Status 04/12/2025 22.6 (L) 35.0 - 47.0 % Final Platelet Count Date Value Ref Range Status 04/12/2025 474 (H) 150 - 450 Thou/uL Final Lab Results Component Value Date NA 141 04/12/2025 K 3.5 04/12/2025 CL 105 04/12/2025 CO2 28 04/12/2025 BUN 9 04/12/2025 CREAT 0.54 04/12/2025 GLUC 87 04/12/2025 GLUC 90 04/11/2025 Lab Results Component Value Date CALCIUM 7.1 (L) 04/12/2025 MG 2.0 04/12/2025 PHOS 3.3 04/12/2025 No results found for: AST , ALT , ALKPHOS , BILITOT , BILIDIR , ALBUMIN , PROT No results found for: AMYLASE , LIPASE No results found for: PTT , LABPROT , INR Imaging Studies XR Chest 1 view-Portable Result Date: 04/08/2025 EXAMINATION: XR CHEST CLINICAL INFORMATION: Confirmation of IJ COMPARISON: Chest radiograph 04/02/2025 TECHNIQUE: Frontal view of the chest was obtained. FINDINGS: Right IJ CVC projects over the cavoatrial junction. Lungs are hypoexpanded. Asymmetric elevation of the right hemidiaphragm. Subsegmental atelectasis in the right lung base. No focal consolidation. Mild blunting of the right costophrenic sulcus. Cardiomediastinal silhouette is similar to prior. No acute osseous findings. 1. Right IJ CVC projects over the cavoatrial junction. No postprocedural pneumothorax. 2. Subsegmental atelectasis in the right lung base. 3. Possible trace right pleural effusion. Interpreted by: Emilee Casas MD Natural Gas Engineer I personally reviewed the images and the resident's preliminaryreport and AGREE with the report as it is now presented ([id number]). MRI Arm w w/o contrast-Lower right Result Date: 04/07/2025 EXAMINATION: MR UPPER EXTREMITY NON JOINT WITHOUT AND WITH CONTRAST, HUMERUS, RIGHT MRI OF THE UPPER EXTREMITY NONJOINT WITHOUT AND WITH CONTRAST FOREARM, RIGHT CLINICAL INFORMATION: Right arm abscess. COMPARISON: Multiple prior examinations most recent CT upper extremity exam April 07, 2025. TECHNIQUE: MRI of the right upper extremity/humerus was performed without and with contrast on a high-field MRI scanner. MRI of the right upper extremity/forearm was performed without and with contrast joy high-field MRI scanner. Contrast 7.5 mL of Magnevist contrast given intravenously during both portions of the exam. FINDINGS: Exam is significantly limited because of difficulties positioning the patient and patient movement. Additionally axial T2-weighted sequences of the forearm and axial T1-weighted sequences of the upper arm humerus could not be obtained. RIGHT UPPER EXTREMITY/HUMERUS: As noted on the CT examination again noted is a lobulated fluid collection extending along the deep surface of the pectoralis major muscle, coracobrachialis extending into the axilla with enhancement of the surrounding tissues. This is suspicious for an evolving abscess. The noted fluid collections above are continuous with the biceps muscle both within the muscle and surrounding the muscle deep to the fascia throughout the anterior compartment and extending the length of the upper extremity to the level of the proximal portion of the distal biceps tendon. Additional mild increased T2 signal and enhancement of the muscles compatible with generalized myositis. The fluid anterior to the anterior compartment deep to the fascia measures up to 1 cm. Also again noted is fluid extending between the teres minor and triceps muscles proximally and extending distally within the posterior compartment deep to the fascia surrounding and partially compressing the triceps muscles. The appearance is suspicious for subfascial abscess between the fascia and triceps muscles. This extends the length of the triceps muscles. This collection measures up to 1.6 cm anterior to posterior. Mild heterogeneous abnor mal signal and enhancement of the muscles compatible with myositis. There is generalized fluid signal in the subcutaneous soft tissues with partial enhancement compatible with a combination of edema and cellulitis throughout the upper arm. Osseous structures: Normal. No abnormal marrow signal. RIGHT UPPER EXTREMITY/FOREARM: As in the upper extremity there is feathery-appearing fluid- like signal noted throughout the forearm with partial enhancement compatible with a combination of edema and cellulitis. There is a lobulated fluid collection at least partially within the brachialradialis muscle and adjacent extensor muscles proximally beginning at the elbow joint and extending to the forearm over approximately 9 cm craniocaudal, 5 cm transverse and 1 cm AP. The collection appears to extend outside of the muscle deep to the fascia as it extends distally. There is heterogeneous enhancement of the noted muscles compatible with myositis. Remaining muscles of the forearm do not demonstrate any definite enhancement. Full evaluation is limited as we were unable to obtain T2-weighted sequences. No additional visible muscle collection noted. Osseous structures: There is possible ill-defined increased T2 signal in the olecranon which is not completely imaged throughout the examination in multiple planes Exam is significantly limited because of difficulties positioning the patient and patient movement.Diffuse generalized abnormality in the subcutaneous soft tissues throughout the right chest, upper arm and forearm compatible with a combination of edema and cellulitis and myositis. As seen on priorCT there are lobulated confluent fluid collections evolving multiple muscle groups and compartmentsas detailed above including the pectoralis major as well as extending distally within anterior and posterior compartment muscles and between the muscles and fascia in the upper arm consistent with and suspicious for abscesses along with myositis. In the proximal forearm anterolaterally there is a fluid collection at least partially within the brachial radialis and extensor muscles and between these muscles and overlying fascia suspicious for abscess along with adjacent myositis. Question abnormal increased T2 signal in the olecranon not completely assessed on this examination.. No bone erosion. Cannot exclude localized osteomyelitis. The remaining bones throughout the upper and lower extremity appear normal MRI Arm w w/o contrast-Upper right Result Date: 04/07/2025 EXAMINATION: MR UPPER EXTREMITY NON JOINT WITHOUT AND WITH CONTRAST, HUMERUS, RIGHT MRI OF THE UPPER EXTREMITY NONJOINT WITHOUT AND WITH CONTRAST FOREARM, RIGHT CLINICAL INFORMATION: Right arm abscess. COMPARISON: Multiple prior examinations most recent CT upper extremity exam April 07, 2025. TECHNIQUE: MRI of the right upper extremity/humerus was performed without and with contrast on a high-field MRI scanner. MRI of the right upper extremity/forearm was performed without and with contrast joy high-field MRI scanner. Contrast 7.5 mL of Magnevist contrast given intravenously during both portions of the exam. FINDINGS: Exam is significantly limited because of difficulties positioning the patient and patient movement. Additionally axial T2-weighted sequences of the forearm and axial T1-weighted sequences of the upper arm humerus could not be obtained. RIGHT UPPER EXTREMITY/HUMERUS: As noted on the CT examination again noted is a lobulated fluid collection extending along the deep surface of the pectoralis major muscle, coracobrachialis extending into the axilla with enhancement of the surrounding tissues. This is suspicious for an evolving abscess. The noted fluid collections above are continuous with the biceps muscle both within the muscle and surrounding the muscle deep to the fascia throughout the anterior compartment and extending the length of the upper extremity to the level of the proximal portion of the distal biceps tendon. Additional mild increased T2 signal and enhancement of the muscles compatible with generalized myositis. The fluid anterior to the anterior compartment deep to the fascia measures up to 1 cm. Also again noted is fluid extending between the teres minor and triceps muscles proximally and extending distally within the posterior compartment deep to the fascia surrounding and partially compressing the triceps muscles. The appearance is suspicious for subfascial abscess between the fascia and triceps muscles. This extends the length of the triceps muscles. This collection measures up to 1.6 cm anterior to posterior. Mild heterogeneous abnor mal signal and enhancement of the muscles compatible with myositis. There is generalized fluid signal in the subcutaneous soft tissues with partial enhancement compatible with a combination of edema and cellulitis throughout the upper arm. Osseous structures: Normal. No abnormal marrow signal. RIGHT UPPER EXTREMITY/FOREARM: As in the upper extremity there is feathery-appearing fluid- like signal noted throughout the forearm with partial enhancement compatible with a combination of edema and cellulitis. There is a lobulated fluid collection at least partially within the brachialradialis muscle and adjacent extensor muscles proximally beginning at the elbow joint and extending to the forearm over approximately 9 cm craniocaudal, 5 cm transverse and 1 cm AP. The collection appears to extend outside of the muscle deep to the fascia as it extends distally. There is heterogeneous enhancement of the noted muscles compatible with myositis. Remaining muscles of the forearm do not demonstrate any definite enhancement. Full evaluation is limited as we were unable to obtain T2-weighted sequences. No additional visible muscle collection noted. Osseous structures: There is possible ill-defined increased T2 signal in the olecranon which is not completely imaged throughout the examination in multiple planes Exam is significantly limited because of difficulties positioning the patient and patient movement.Diffuse generalized abnormality in the subcutaneous soft tissues throughout the right chest, upper arm and forearm compatible with a combination of edema and cellulitis and myositis. As seen on priorCT there are lobulated confluent fluid collections evolving multiple muscle groups and compartmentsas detailed above including the pectoralis major as well as extending distally within anterior and posterior compartment muscles and between the muscles and fascia in the upper arm consistent with and suspicious for abscesses along with myositis. In the proximal forearm anterolaterally there is a fluid collection at least partially within the brachial radialis and extensor muscles and between these muscles and overlying fascia suspicious for abscess along with adjacent myositis. Question abnormal increased T2 signal in the olecranon not completely assessed on this examination.. No bone erosion. Cannot exclude localized osteomyelitis. The remaining bones throughout the upper and lower extremity appear normal CT Upper extremity with contrast-Left Addendum Date: 04/07/2025 ADDENDUM #1 Addendum: Reactive left axillary lymph nodes. Result Date: 04/07/2025 EXAMINATION: CT left upper extremity without contrast CLINICAL INFORMATION: Abscess evaluation COMPARISON: MRI left humerus dated same day TECHNIQUE: Multiple axial CT images of the left upper extremity are acquired without contrast. Sagittal and coronal reconstructions are provided. 75 mL Omnipaque 300. DOSE LOWERING TECHNIQUES: This CT examination was performed using dose optimization techniques as appropriate, variously including the following: - Automated exposure control - Adjustment of mAand/or kV according to patient size (this includes techniques or standardized protocols for targeted exams where dose is matched to indication/reason for exam; i.e. extremities or head) - Use of iterative construction technique 1676.35 FINDINGS: Within the upper extremity, one appears deep to the biceps musculature there is a peripherally enhancing fluid collection originating approximately 10 cmproximal to the elbow joint and extending to the level of the elbow joint. At its distal aspect the fluid collection appears to extend to the subcutaneous soft tissues. No definite enhancing fluid collection distal to the subcutaneous component distal to the elbow joint. Diffuse subcutaneous soft tissue inflammation of the elbow and forearm. No acute osseous abnormality. Peripherally enhancing fluid collection within the upper extremity, approximately 10 cm proximal tothe elbow joint and extending to the level of the elbow joint. At its distal aspect the fluid collection appears to extend to the subcutaneous soft tissues. No definite enhancing fluid collection distal to the subcutaneous component distal to the elbow joint. Findings are concerning for abscess. CT Upper extremity with contrast-Right Result Date: 04/07/2025 EXAMINATION: CT UPPER EXTREMITY WITH CONTRAST, RIGHT CLINICAL INFORMATION: Concern for soft tissue infection of entire right upper extremity. COMPARISON: Outside CTA of the right upper extremity April 02, 2025. TECHNIQUE: CT scan of the right upper extremity was performed with contrast. Reconstruction imaging performed at the acquisition workstation. Contrast dose 80 mL of Omnipaque [address] examination was performed using dose optimization techniques as appropriate, variously including the following: *Automated exposure control *Adjustment of mA and/or kV according to patient size (this includes techniques or standardized protocols for targeted exams where dose is m atched to indication/reason for exam; i.e. extremities or head) *Use of iterative reconstruction technique DLP: 1068 mGy-cm FINDINGS The large [id number] and positioning limits evaluation. Subcutaneous soft tissues: There is feathery-appearing fluid-like density noted throughout including the right chest wall and into the right side of the abdomen, as well as circumferentially about the shoulder region, right upper extremity, right forearm and into the hand. No gas noted. MUSCLES/TENDONS: Right shoulder and chest region: There is ill-defined lobulated fluid extending within and along the superficial and deep surface of the pectoralis major and minor, coracobrachialis and teres major. In the upper arm, there is additional fluid extension and involvement of the anterior compartment muscles including the biceps, brachialis and brachioradialis along with the overlying subcutaneous soft tissues. There is also fluid extending along the outer aspect of the triceps muscles deep to the fascia the length of the muscle in the upper extremity. In the forearm and hand, there is no definite involvement of the muscles although there is extensive feathery-appearing fluid-like density in the subcutaneous soft tissues. The osseous structures are intact. The chest is also included in the examination. Numerous lymph nodes present within the axilla, likely reactive. There is consolidation in the right lower lobe and a right pleural effusion. 1. Extensive fluid-like density throughout the subcutaneous soft tissues of the right chest wall, right abdominal wall, right upper extremity and right forearm and hand. This is nonspecific but couldreflect edema, cellulitis or a combination of these. This appears to have progressed compared with outside imaging of the right upper extremity dating back to April 02, 2025. 2. There is fluid extending within and along the superficial and deep surface muscles and muscle groups in the right chest/chest wall and right upper extremity compatible with myositis and likely evolving phlegmon or abscesses which has progressed compared with prior outside imaging dating back to April 02, 2025. See details above. No definite involvement of the muscles in the forearm and hand 3. Right lower lobe consolidation and right pleural effusion. Electronically Signed Clarice Hernandez DO General Surgery, PGY-3 04/12/2025 2:09 AM * Sejal Napoles PharmD - 04/11/2025 1:26 PM EDT Pharmacokinetic Consult - Vancomycin Dosing Molly Beasley is a 34 y.o. female who has been consulted for vancomycin dosing, goal AUC24 of 400-600 for bacteremia and NSTI. Height: Last ht 04/06/25 1.58 m (5' 2.21 ) Weight: Last wt 04/11/25 75 kg (165 lb 5.5 oz) IBW: [place] body weight: 50.6 kg (111 lb 7.8 oz) Adjusted ideal body weight: 60.3 kg (133 lb 0.5 oz) Labs: Creatinine Date/Time Value Ref Range Status 04/11/2025 12:57 AM 0.61 0.40 - 1.10 mg/dL Final 04/10/2025 12:06 AM 0.54 0.40 - 1.10 mg/dL Final 04/09/2025 05:20 PM 0.58 0.40 - 1.10 mg/dL Final Blood Urea Nitrogen (BUN) Date/Time Value Ref Range Status 04/11/2025 12:57 AM 9 8 - 21 mg/dL Final 04/10/2025 12:06 AM 9 8 - 21 mg/dL Final 04/09/2025 05:20 PM 7 (L) 8 - 21 mg/dL Final Vancomycin, Random Date/Time Value Ref Range Status 04/08/2025 02:05 PM 17 mg/L Final Comment: No reference range established for random levels. Estimated Creatinine Clearance: 121.6 mL/min (by C-G formula based on SCr of 0.61 mg/dL). Assessment: Analysis using [employer] gives the following predicted pharmacokinetic parameters: CL: 4.3 L/hr V: 49.8 L T 1/2: 8.41 hours Since it has been >48 hours since last dose of vancomycin, at this time, give a loading dose of 1750 mg. This will be followed by a regimen of 1250 mg IV every 12 hours, (previous regimen) which is predicted to result in an AUC24 of 576 (correlated steady-state trough of 15.4 mcg/mL). The pharmacy team will plan to obtain a level within 48 hours. Pharmacy will continue to follow the patient's renal function, culture results, and clinical progress daily. Sejal Napoles PharmD A Document for: [facility] Title: Vancomycin: Pharmacy to Dose_[facility] Purpose: To provide instruction on pharmacy to dose vancomycin service Scope: Prescribers and pharmacists Protocol: Prescriber Responsibilities: Prescribers may order ???vancomycin dosing by pharmacy??? to authorize pharmacy to manage vancomycin therapy. Prescriber must document the indication for vancomycin. Pharmacist Responsibilities: For orders entered as ???vancomycin dosing by pharmacy???, the pharmacist will dose, monitor, and modify vancomycin therapy. The pharmacist will check the patient???s record for doses of vancomycin administered prior to the implementation of the protocol, will determine the time of administration of the first protocol dose, and will, if necessary, call the nurse to schedule doses accordingly. Pharmacists will demonstrate competency on a regular basis. All vancomycin orders and related labs should be ordered per protocol, no cosign required. Protocol Exclusions: Adult patients weighing less than 20 kg Trough-based monitoring in conjunction with the provider and an infectious diseases clinical pharmacist should be utilized. Pediatric patients (less than 16 years of age) An infectious diseases clinical pharmacist should be contacted for assistance with dosing. patients (Less than 28 days of age) Contact [facility] for assistance. AUC Therapeutic Drug Monitoring: An AUC/MUNA (area under the curve/minimum inhibitory concentration) ratio of greater than or equal to 400 is considered the optimal pharmacokinetic/pharmacodynamic efficacy target for vancomycin. The literature supporting this target is mainly derived from studies of patients with MRSA bloodstream infections. An MUNA of less than or equal to 1 mg/L should be assumed for empiric dosing. Alternative agents arerecommended when the MUNA is 2 mg/L or greater. Data suggests that an AUC less than 400 potentiates the emergence of resistance. A target AUC of 400 to 600 is recommended to achieve clinical efficacy while improving patient safety. For some infections, such as ONCOLOGY NURSE NAVIGATOR infections, a higher range of 500-600 may be considered if possible. Trough-based monitoring is no longer recommended for most patients based on efficacy and nephrotoxicity data. Bayesian dosing software, like InsightRx???,utilizes a population pharmacokinetic model coupled with an individual patient???s observed drug concentrations to calculate the patient???s optimal vancomycin dosing regimen. InsightRx??? should be utilized to dose all vancomycin regimens unless otherwise noted in the protocol. Vancomycin Dosing Recommendations Dosing: Available Doses: 500 mg, 750 mg, 1000 mg, 1250 mg, 1500 mg, 1750 mg, 2000 mg, 2500 mg Doses should be rounded to the nearest 250 mg Maximum Doses: Maximum loading dose: 2500 mg Maximum maintenance dose: 2000 mg Minimum Dose: 500 mg Dosing Frequencies: Every 6, 8, 12, 18, 24, 36, or 48 hours For ease of administration, consider preferentially using every 8, 12, or 24- hour dosing regimens when possible and if clinically appropriate based on pharmacokinetic estimates. All doses should be based on actual body weight Vancomycin Infusion Times: Doses of 1.5 g or less will be infused over 1.5 hours. Doses of 1.75 to 2 g will be infused over 2 hours Doses of 2.5 g will be infused over 2.5 hours Loading Doses: Loading doses should be administered to all patients who are not currently on vancomycin. Loading doses are solely dependent on the weight of the patient. Renal function should not be used as a deciding factor to order or the amount of the loading dose. (See Table 1) Loading doses can be entered in InsightRx??? within the loading dose feature to check that simulated PK exposure predictions fall within the target range. The loading dose feature in [employer]ight[employer]??? will only appear when no doses have been documented in the patient???s chart. Table 1 Loading doses for patients based on actual body weight: Weight: Vancomycin Dose: 20-29 kg 500 mg 30-39 kg 750 mg 40-49 kg 1000 mg 50-59 kg 1250 mg 60-69 kg 1500 mg 70-79 kg 1750 mg 80-99 kg 2000 mg 100 kg or more 2500 mg Maintenance Doses: InsightRx??? will be utilized to determine maintenance regimens in all patients with stable renal function using the DoseAssist function. InsightRx??? recommends doses based on the patient???s age, weight, renal function, predicted trough and AUC, and richly sampled vancomycin data as the Bayesian prior. InsightRx??? will calculate the predicated 24-hour AUC at steady state (AUC24, ss), the trough concentration at steady state (Ctrough, ss), the probability of an AUC24, ss greater than or equal to 400 (PAUC), the probability of Ctrough,ss greater than or equal to 20 mg/L (Pconc), and the probability of a nephrotoxic event (Tox.). Pharmacists should aim to keep the Pconc and Tox. column values as close to 0% as possible, while maximizing PAUC closest to 100%. Maintenance Doses & Unstable Renal Function: When dosing patients with acute kidney injury or unstable renal function, InsightRx??? should stillbe utilized to determine the appropriate regimen. In the setting of significant renal impairment, an orange warning banner will populate in InsightRx??? indicating when the custom dose feature should be utilized. The custom dose feature in InsightRx??? must be utilized as the DoseAssist feature will no longer populate recommendations in these scenarios. The custom dose feature can be used to evaluate the patient???s predicted exposure metrics based onthe various regimens entered. In patients with fluctuating renal function, a [id number] strategy can be utilized. Target AUC Concentrations: A target AUC of 400 to 600 is recommended for all patients except those with ONCOLOGY NURSE NAVIGATOR infections. For ONCOLOGY NURSE NAVIGATOR infections, a higher range of 500-600 may be considered if possible. Therapeutic Drug Monitoring: Initial vancomycin concentration levels should be drawn early in therapy, within the first 24-48 hours of therapy, generally after doses 2-4. It is no longer necessary to wait until steady state to collect levels. Earlier level collection allows for early target attainment and optimal efficacy. Levels should routinely be ordered to be collected with AM labs to decrease the number of lab sticks required. Levels may be interpreted from any time point between dose administrations (except during the infusion). All levels should be ordered as random levels. Vancomycin levels should be ordered within approximately 24 hours of due time. Levels should not beordered several days in advance. Doses should not be routinely held by nursing awaiting the return of a vancomycin level that is in process. If there is concern for supratherapeutic levels (i.e., in the setting of acute kidney injury) the vancomycin regimen should be discontinued pending evaluation of the level and doses re-ordered accordingly after the level results. Repeat Levels: Throughout the treatment course, repeat levels may be considered to be obtained within 24-48 hours: After a dosing regimen change During changes in renal function (SCr change by greater than or equal to 0.3 mg/dL OR urine output less than 0.5 mL/kg/hr over 6 hours) Hemodynamic instability If patients remain clinically stable with a documented AUC concentration in range, repeat levels only need to be rechecked every 5-7 days. Vancomycin Received at an Outside Hospital: Vancomycin doses that were received at an outside hospital or via home infusion can be manually entered into InsightRx??? along with any levels that were collected prior to admission to [facility]. This will allow InsightRx??? to recognize that the patient is likely already at steady state and the dosing r ecommendations in the DoseAssist feature will reflect this. If the doses administered or time since the last dose administered is unknown or there is a concernfor supratherapeutic levels, a random stat level should be collected prior to dosing vancomycin to ensure level is not supratherapeutic. Laboratory Monitoring: Pharmacists may order serum creatinine, BUN, and vancomycin levels as needed per protocol. For new start vancomycin orders or for patients receiving vancomycin for less than 48 hours with anorder indication of pneumonia or sepsis that is secondary to suspected pneumonia, pharmacists may order a ???MRSA PCR Screen, Qualitative?? per protocol, no cosign required. The MRSA PCR nasal swab has a high negative predictive value for MRSA pneumonia. If the PCR resultsas ???not detected?? , the provider team should be contacted to discuss the need for vancomycin if no other clinical indications for vancomycin are present. Administration of doses should not be delayed pending a PCR result. A positive MRSA PCR nasal swab has a low positive predictive value and does not independently indicate the presence of MRSA pneumonia Vancomycin Dosing in Dialysis Patients requiring any form of dialysis will be dosed outside of the InsightRx??? software. All patients should receive weight-based loading doses as recommended in Table 1. Trough-based monitoring should be utilized for all patients requiring hemodialysis. Intermittent hemodialysis: Pre-hemodialysis vancomycin levels are preferred and should be drawn with scheduled morning labs when possible. Each dialysis session is expected to decrease the pre-dialysis level by 30-50%. Goal pre-hemodialysis level: 15-20 mcg/mL for all indications Maintaining pre-hemodialysis concentrations between 15 and 20 mcg/mL is likely to achieve an AUC of400 to 600 in the previous 24 hours. Random levels should be drawn within the first 72 hours of therapy and after the loading dose has been administered, prior to the next dialysis session. Generally, the weight-based maintenance doses from Table 2 in the protocol can be given after a hemodialysis session. In some instances, patients may have very low levels after receipt of a vancomycin loading dose. The calculation below can be utilized to help obtain a therapeutic level after a dialysis session. ? Concentration = Dose/VD (VD= 0.7 * weight) The supplemental dose is not intended to be a standard maintenance dose. Once a therapeutic regimen has been attained, levels should be monitored every 5-7 days in stable patients. Table 2 Hemodialysis Initial Maintenance Doses Weight Dose 20 - 59 kg 500 mg with each HD session 60 - 89 kg 750 mg with each HD session 90 kg or greater 1000 mg with each HD session Peritoneal Dialysis: For patients undergoing peritoneal dialysis and receiving intravenous vancomycin therapy, a level should be checked 24 hours after the initial dose. Subsequent doses should be administered based on the level. Frequencies of 48-72 hours may be expected. Patients receiving vancomycin intraperitoneally are excluded from this protocol. An infectious diseases clinical pharmacist should be contacted for assistance with dosing. Continuous Renal Replacement Therapy (CRRT): Patients receiving systemic vancomycin and continuous renal replacement therapy should be re-dosed with vancomycin when serum levels are or are expected to be less than 20 mcg/mL. The pharmacist should order a vancomycin random level approximately 12 hours after the initial dose. The pharmacist will re-dose accordingly based on level and monitor daily for CRRT interruptions or modifications. Monitoring Pharmacists will review patients daily (even if there is no pending level for that day). Daily reviews should include monitoring renal function, concomitant nephrotoxic agents (Table 3), microbiology, doses administered, pharmacy & relevant provider notes, and pending levels. In patients receiving dialysis or continuous renal replacement therapy, the pharmacist will review dialysis schedule & nephrology notes daily. Table 3 Potentially Nephrotoxic Agents: (list is not all-inclusive) Acyclovir [place] Aminoglycosides Loop Diuretics (usually higher doses) Amphotericin B and derivatives Methotrexate Angiotensin Inhibitors and Blockers NSAIDS (including GATES-1 and GATES-2 Inhibitors Calcineurin Inhibitors (cyclosporine, tacrolimus, sirolimus) Pentamidine Cidofovir Polymyxins (colistimethate and polymixin B) Contrast Media Piperacillin/tazobactam Foscarnet Documentation Pharmacists should document in Epic their plan for dosing and monitoring vancomycin per pharmacy protocol. The summary note from InsightRx??? should be copied into the pharmacy protocol i-Vent and posted inthe chart as a note for all patients being dosed with InsightRx???. The Epic i-Vent template shouldbe utilized for all trough-based monitoring. At initiation of therapy With each level With each regimen change Patients being discharged on long-term intravenous vancomycin Pharmacists will ensure adequate handoff via verbal communication with external pharmacies/providers for patients who are being discharged on long-term IV vancomycin. The process for long-term vancomycin handoffs will be as follows: When a provider enters a discharge prescription for IV vancomycin, a RxDischarge In Basket message will fire. The pharmacist will review the discharge plans, including anticipated date of discharge and who will be taking over outpatient antibiotic therapy. Pharmacists will also review inpatient dosing regimen, recent labs, and anticipated plan for antibiotic therapy. Pharmacist will call long-term care pharmacy, home infusion service, etc. to provide handoff of thepatient???s vancomycin regimen, recent drug levels (provide AUC and corresponding estimated trough level listed in InsightRx???), and any other pertinent information to safely and effectively hand off therapy. From the Rx Discharge message, pharmacists will use the New i-Vent button to document handoff as follows: i-Vent type: ???Transitions of Care?? i-Vent subtype: ???Discharge Handoff?? Pharmacists will use SmartText ???.dischargevancomycin?? to document the handoff that occurred. Pharmacists will copy the i-Vent to a note so that it is visible in the patient???s chart. Three attempts should be made to provide the discharge handoff Each attempt you make should be documented in an ivent using the SmartText ???.dischargevancounsuccessful?? and copied into the chart as a note After three unsuccessful attempts, update the ivent using the ivent template and arsalan the BPA in the In Basket complete Downtime Procedures Should an Epic downtime occur, the following procedures should be followed. If internet is still accessible during the downtime, the InsightRx??? web-based platform can still be utilized ([email or web address]). All general concepts or restrictions in this protocol should still be followed during downtime Loading doses should be administered to all patients as recommended in Table 1 Table 4 should be referenced for the recommended initial maintenance dose and frequency based on the patient weight and creatinine clearance if the web-based platform is not available. This should beused in downtimes only when the InsightRx??? web-based platform is not available. In the setting of Epic and internet downtime, trough-based monitoring should be utilized Trough Goals: 15-20 mcg/mL for severe infections such as bacteremia, endocarditis, pneumonia, necrotizing fasciitis, or meningitis 10-20 mcg/mL for cellulitis, urinary tract infections Trough levels should be collected 1 hour prior to the 4th or 5th dose or sooner based on clinical judgement. Patients with impaired or unstable renal function should be dosed by level. Once the downtime has resolved, patients should be converted to AUC monitoring and doses administered during the downtime can be manually added to InsightRx???. Table 4 Creatinine Clearance (CrCl) Recommended Dose & Interval Greater than or equal to 100 mL/min & age less than 50 years 10-15 mg/kg IV Q8h Greater than or equal to 100 mL/min & age greater than 50 years 15-20 mg/kg IV Q12h 70-99 mL/min 15-20 mg/kg IV Q12h 50-69 mL/min 10-15 mg/kg IV Q12h 30-49 mL/min 15-20 mg/kg IV Q24h Less than 30 mL/min (not on hemodialysis) OR Unstable renal function 15-20 mg/kg IV once Obtain random level with AM labs or at 12- or 24-hour interval as applicable Re-dose at 10-15 mg/kg when level is estimated to be less than 20 mcg/mL * Anisa Perez MD - 04/11/2025 12:55 PM EDT Images from the original note were not included. CMG ID Progress Note Name: Molly Beasley Age: 34 y.o. Sex: female ASSESSMENT & PLAN Assessment: 34-year-old female with history of active IV drug use, history of xylazine infection, depression, anxiety, transferred to [facility] from OSH on 04/06 for concern of right upper extremity abscess. Patient initially presented to OSH on 04/02 with redness/swelling of the right upper extremity in the setting of active IV cocaine use, underwent formal I&D on 04/05 of the right antecubital fossa. Repeat imaging of the forearm on 04/06 at OSH demonstrated developing abscess within the biceps muscle with concern for possible necrotizing fasciitis without soft tissue gas. CT of the left forearm demonstrated partially visualized abscess in the antecubital fossa and synovitis in the wrist.At OSH, 2 /2 blood cultures came back positive number of MRSA on 04/02. At [facility], patient was febrile 200.6, currently on vancomycin, evaluated by orthopedics and general surgery. ID was consulted on 04/07 1. MRSA right upper extremity abscess with significant induration which extended into the right elbow, underwent multiple debridements of the right upper / left upper extremities on 04/07, 04/08 and subsequent right chest wall debridement through sternal incision on 04/09. -04/07, OR notes-. copious amounts of purulent fluid in the biceps muscle cultures grew MRSA, susceptible to vancomycin/linezolid/minocycline -On 04/08, OR notes-> copious purulence with a small track running to the chest which was evacuated as well 2. MRSA bacteremia: Likely translocation from the arm wounds. Bacteremia has cleared with a negative 2D echo - 04/09, blood culture = NGTD @ OSH -08/04 blood cultures positive at OSH on 04/02 -2D Echo OSH was negative for vegetations 3. Hx active IV drug use, On methadone 130 mg 4. Antibiotics -Vancomycin 04/07-04/09 -Zosyn, 04/07 -Clindamycin x 1, 04/07 - Linezolid, 04/09 5. Other. Her HIV antibody is negative. HCV antibody positive Recommendations: - In the last 24 hours, patient received 4 units of packed RBCs for acute drop in hemoglobin. - remains critically sick -Plan for repeat OR noted -Linezolid was chosen secondary to antitoxin effect. Her bacteremia cleared with a negative 2D echo, but with her clinical course requiring multiple debridements; though pictures of the wounds from today showed viable tissue: there is concern for microscopic seeding of other organs, with linezolid being bacteriostatic- -> adjust antibiotics as below 1. Start vancomycin IV/clindamycin. Ordered 2. Linezolid discontinued 3. Zosyn discontinued already - aim to complete at least 4 wks of IV antibiotic Communicated with ICU team and the pharmacy Appreciate excellent care by ICU team ANTIBIOTIC TIME OUT Current antibiotic/day of therapy: Anti-infectives (From admission, onward) Start Dose/Rate Route Frequency Ordered Stop 04/09/25 1130 linezolid (ZYVOX) IVPB 600 mg in 300 mL D5W (premix) 600 mg 300 mL/hr over 60 Minutes Intravenous Every 12 hours 04/09/25 1122 OBJECTIVE Physical Examination: Vitals: 04/11/25 1234 BP: Pulse: 68 Resp: (!) 10 Temp: 98.4 ??F (36.9 ??C) SpO2: 100% Weight: Height: General appearance - female Intubated and sedated Lungs: Diminished breath sounds at the bases Chest: Dressing placed on the right sternal incision with Mitul in place Right upper extremity: Dressing/Omid wrap in place. Left upper extremity surgical dressing in place Pictures reviewed from the surgical notes. Results from last 7 days Lab Units 04/11/25 1208 04/11/25 0801 04/11/25 0400 04/11/25 0057 04/10/25 0022 04/10/25 0006 04/09/25 2005 04/09/25 1720 SODIUM mmol/L -- -- -- 139 -- 136 -- 136 POTASSIUM mmol/L -- -- -- 3.5 -- 4.3 -- 3.9 CHLORIDE mmol/L -- -- -- 106 -- 102 -- 104 CO2 mmol/L -- -- -- 26 -- 25 -- 26 BUN mg/dL -- -- -- 9 -- 9 -- 7* CREATININE mg/dL -- -- -- 0.61 -- 0.54 -- 0.58 CALCIUM mg/dL -- -- -- 7.1* -- 7.5* -- 8.7 GLUCOSE mg/dL -- -- -- 115* -- 205* -- 126* GLUCOSE, POC mg/dL 106* 116* 117* -- < > -- < > 145* EGFR -- -- -- >90 -- >90 -- >90 < > = values in this interval not displayed. Blood Cultures: Lab Results Component Value Date CULTURE Sterile after 2 days 04/09/2025 Imaging Studies XR Chest 1 view-Portable Result Date: 04/08/2025 EXAMINATION: XR CHEST CLINICAL INFORMATION: Confirmation of IJ COMPARISON: Chest radiograph 04/02/2025 TECHNIQUE: Frontal view of the chest was obtained. FINDINGS: Right IJ CVC projects over the cavoatrial junction. Lungs are hypoexpanded. Asymmetric elevation of the right hemidiaphragm. Subsegmental atelectasis in the right lung base. No focal consolidation. Mild blunting of the right costophrenic sulcus. Cardiomediastinal silhouette is similar to prior. No acute osseous findings. 1. Right IJ CVC projects over the cavoatrial junction. No postprocedural pneumothorax. 2. Subsegmental atelectasis in the right lung base. 3. Possible trace right pleural effusion. Interpreted by: Emilee Casas MD Natural Gas Engineer I personally reviewed the images and the resident's preliminary report and AGREE with the report as it is now presented ([id number]). MRI Arm w w/o contrast-Lower right Result Date: 04/07/2025 EXAMINATION: MR UPPER EXTREMITY NON JOINT WITHOUT AND WITH CONTRAST, HUMERUS, RIGHT MRI OF THE UPPER EXTREMITY NONJOINT WITHOUT AND WITH CONTRAST FOREARM, RIGHT CLINICAL INFORMATION: Right arm abscess. COMPARISON: Multiple prior examinations most recent CT upper extremity exam April 07, 2025. TECHNIQUE: MRI of the right upper extremity/humerus was performed without and with contrast on a high-field MRI scanner. MRI of the right upper extremity/forearm was performed without and with contrast joy high-field MRI scanner. Contrast 7.5 mL of Magnevist contrast given intravenously during both portions of the exam. FINDINGS: Exam is significantly limited because of difficulties positioning the patient and patient movement. Additionally axial T2-weighted sequences of the forearm and axial T1-weighted sequences of the upper arm humerus could not be obtained. RIGHT UPPER EXTREMITY/HUMERUS: As noted on the CT examination again noted is a lobulated fluid collection extending along the deep surface of the pectoralis major muscle, coracobrachialis extending into the axilla with enhancement of the surrounding tissues. This is suspicious for an evolving abscess. The noted fluid collections above are continuous with the biceps muscle both within the muscle and surrounding the muscle deep to the fascia throughout the anterior compartment and extending the length of the upper extremity to the level of the proximal portion of the distal biceps tendon. Additional mild increased T2 signal and enhancement of the muscles compatible with generalized myositis. The fluid anterior to the anterior compartment deep to the fascia measures up to 1 cm. Also again noted is fluid extending between the teres minor and triceps muscles proximally and extending distally within the posterior compartment deep to the fascia surrounding and partially compressing the triceps muscles. The appearance is suspicious for subfascial abscess between the fascia and triceps muscles. This extends the length of the triceps muscles. This collection measures up to 1.6 cm anterior to posterior. Mild heterogeneous abnor mal signal and enhancement of the muscles compatible with myositis. There is generalized fluid signal in the subcutaneous soft tissues with partial enhancement compatible with a combination of edema and cellulitis throughout the upper arm. Osseous structures: Normal. No abnormal marrow signal. RIGHT UPPER EXTREMITY/FOREARM: As in the upper extremity there is feathery-appearing fluid- like signal noted throughout the forearm with partial enhancement compatible with a combination of edema and cellulitis. There is a lobulated fluid collection at least partially within the brachialradialis muscle and adjacent extensor muscles proximally beginning at the elbow joint and extending to the forearm over approximately 9 cm craniocaudal, 5 cm transverse and 1 cm AP. The collection appears to extend outside of the muscle deep to the fascia as it extends distally. There is heterogeneous enhancement of the noted muscles compatible with myositis. Remaining muscles of the forearm do not demonstrate any definite enhancement. Full evaluation is limited as we were unable to obtain T2-weighted sequences. No additional visible muscle collection noted. Osseous structures: There is possible ill-defined increased T2 signal in the olecranon which is not completely imaged throughout the examination in multiple planes Exam is significantly limited because of difficulties positioning the patient and patient movement.Diffuse generalized abnormality in the subcutaneous soft tissues throughout the right chest, upper arm and forearm compatible with a combination of edema and cellulitis and myositis. As seen on priorCT there are lobulated confluent fluid collections evolving multiple muscle groups and compartmentsas detailed above including the pectoralis major as well as extending distally within anterior and posterior compartment muscles and between the muscles and fascia in the upper arm consistent with and suspicious for abscesses along with myositis. In the proximal forearm anterolaterally there is a fluid collection at least partially within the brachial radialis and extensor muscles and between these muscles and overlying fascia suspicious for abscess along with adjacent myositis. Question abnormal increased T2 signal in the olecranon not completely assessed on this examination.. No bone erosion. Cannot exclude localized osteomyelitis. The remaining bones throughout the upper and lower extremity appear normal MRI Arm w w/o contrast-Upper right Result Date: 04/07/2025 EXAMINATION: MR UPPER EXTREMITY NON JOINT WITHOUT AND WITH CONTRAST, HUMERUS, RIGHT MRI OF THE UPPER EXTREMITY NONJOINT WITHOUT AND WITH CONTRAST FOREARM, RIGHT CLINICAL INFORMATION: Right arm abscess. COMPARISON: Multiple prior examinations most recent CT upper extremity exam April 07, 2025. TECHNIQUE: MRI of the right upper extremity/humerus was performed without and with contrast on a high-field MRI scanner. MRI of the right upper extremity/forearm was performed without and with contrast joy high-field MRI scanner. Contrast 7.5 mL of Magnevist contrast given intravenously during both portions of the exam. FINDINGS: Exam is significantly limited because of difficulties positioning the patient and patient movement. Additionally axial T2-weighted sequences of the forearm and axial T1-weighted sequences of the upper arm humerus could not be obtained. RIGHT UPPER EXTREMITY/HUMERUS: As noted on the CT examination again noted is a lobulated fluid collection extending along the deep surface of the pectoralis major muscle, coracobrachialis extending into the axilla with enhancement of the surrounding tissues. This is suspicious for an evolving abscess. The noted fluid collections above are continuous with the biceps muscle both within the muscle and surrounding the muscle deep to the fascia throughout the anterior compartment and extending the length of the upper extremity to the level of the proximal portion of the distal biceps tendon. Additional mild increased T2 signal and enhancement of the muscles compatible with generalized myositis. The fluid anterior to the anterior compartment deep to the fascia measures up to 1 cm. Also again noted is fluid extending between the teres minor and triceps muscles proximally and extending distally within the posterior compartment deep to the fascia surrounding and partially compressing the triceps muscles. The appearance is suspicious for subfascial abscess between the fascia and triceps muscles. This extends the length of the triceps muscles. This collection measures up to 1.6 cm anterior to posterior. Mild heterogeneous abnor mal signal and enhancement of the muscles compatible with myositis. There is generalized fluid signal in the subcutaneous soft tissues with partial enhancement compatible with a combination of edema and cellulitis throughout the upper arm. Osseous structures: Normal. No abnormal marrow signal. RIGHT UPPER EXTREMITY/FOREARM: As in the upper extremity there is feathery-appearing fluid- like signal noted throughout the forearm with partial enhancement compatible with a combination of edema and cellulitis. There is a lobulated fluid collection at least partially within the brachialradialis muscle and adjacent extensor muscles proximally beginning at the elbow joint and extending to the forearm over approximately 9 cm craniocaudal, 5 cm transverse and 1 cm AP. The collection appears to extend outside of the muscle deep to the fascia as it extends distally. There is heterogeneous enhancement of the noted muscles compatible with myositis. Remaining muscles of the forearm do not demonstrate any definite enhancement. Full evaluation is limited as we were unable to obtain T2-weighted sequences. No additional visible muscle collection noted. Osseous structures: There is possible ill-defined increased T2 signal in the olecranon which is not completely imaged throughout the examination in multiple planes Exam is significantly limited because of difficulties positioning the patient and patient movement.Diffuse generalized abnormality in the subcutaneous soft tissues throughout the right chest, upper arm and forearm compatible with a combination of edema and cellulitis and myositis. As seen on priorCT there are lobulated confluent fluid collections evolving multiple muscle groups and compartmentsas detailed above including the pectoralis major as well as extending distally within anterior and posterior compartment muscles and between the muscles and fascia in the upper arm consistent with and suspicious for abscesses along with myositis. In the proximal forearm anterolaterally there is a fluid collection at least partially within the brachial radialis and extensor muscles and between these muscles and overlying fascia suspicious for abscess along with adjacent myositis. Question abnormal increased T2 signal in the olecranon not completely assessed on this examination.. No bone erosion. Cannot exclude localized osteomyelitis. The remaining bones throughout the upper and lower extremity appear normal CT Upper extremity with contrast-Left Addendum Date: 04/07/2025 Result Date: 04/07/2025 EXAMINATION: CT left upper extremity without contrast CLINICAL INFORMATION: Abscess evaluation COMPARISON: MRI left humerus dated same day TECHNIQUE: Multiple axial CT images of the left upper extremity are acquired without contrast. Sagittal and coronal reconstructions are provided. 75 mL Omnipaque 300. DOSE LOWERING TECHNIQUES: This CT examination was performed using dose optimization techniques as appropriate, variously including the following: - Automated exposure control - Adjustment of mAand/or kV according to patient size (this includes techniques or standardized protocols for targeted exams where dose is matched to indication/reason for exam; i.e. extremities or head) - Use of iterative construction technique 1676.35 FINDINGS: Within the upper extremity, one appears deep to the biceps musculature there is a peripherally enhancing fluid collection originating approximately 10 cmproximal to the elbow joint and extending to the level of the elbow joint. At its distal aspect the fluid collection appears to extend to the subcutaneous soft tissues. No definite enhancing fluid collection distal to the subcutaneous component distal to the elbow joint. Diffuse subcutaneous soft tissue inflammation of the elbow and forearm. No acute osseous abnormality. Peripherally enhancing fluid collection within the upper extremity, approximately 10 cm proximal tothe elbow joint and extending to the level of the elbow joint. At its distal aspect the fluid collection appears to extend to the subcutaneous soft tissues. No definite enhancing fluid collection distal to the subcutaneous component distal to the elbow joint. Findings are concerning for abscess. CT Upper extremity with contrast-Right Result Date: 04/07/2025 EXAMINATION: CT UPPER EXTREMITY WITH CONTRAST, RIGHT CLINICAL INFORMATION: Concern for soft tissue infection of entire right upper extremity. COMPARISON: Outside CTA of the right upper extremity April 02, 2025. TECHNIQUE: CT scan of the right upper extremity was performed with contrast. Reconstruction imaging performed at the acquisition workstation. Contrast dose 80 mL of Omnipaque [address]. [address] examination was performed using dose optimization techniques as appropriate, variously including the o patient size (this includes techniques or standardized protocols for targeted exams where dose is matched to indication/reason for exam; i.e. extremities or head) *Use of iterative reconstruction technique DLP: 1068 mGy-cm FINDINGS The large jcbut-am-oiva and positioning limits evaluation. Subcutaneous soft tissues: There is feathery- appearing fluid-like density noted throughout including the right chest wall and into the right side of the abdomen, as well as circumferentially about the shoulder region, right upper extremity, right forearm and into the hand. No gas noted. MUSCLES/TENDONS: Right shoulder and chest region: There is ill-defined lobulated fluid extending within and along the superficial and deep surface of the pectoralis major and minor, coracobrachialis and teres major. In the upper arm, there is additional fluid extension and involvement of the anterior compartment muscles including the biceps, brachialis and brachioradialis along with the overlying subcutaneous soft tissues. There is also fluid extending along the outer aspect of the triceps muscles deep to the fascia the length of the muscle in the upper extremity. In the forearm and hand, there is no definite involvement of the muscles although there is extensive feathery-appearing fluid-like density in the subcutaneous soft tissues. The osseous structures are intact. The chest is also included in the examination. Numerous lymph nodes present within the axilla, likely reactive. There is consolidation in the right lower lobe and a right pleural effusion. 1. Extensive fluid-like density throughout the subcutaneous soft tissues of the right chest wall, right abdominal wall, right upper extremity and right forearm and hand. This is nonspecific but couldreflect edema, cellulitis or a combination of these. This appears to have progressed compared with outside imaging of the right upper extremity dating back to April 02, 2025. 2. There is fluid extending within and along the superficial and deep surface muscles and muscle groups in the right chest/chest wall and right upper extremity compatible with myositis and likely evolving phlegmon or abscesses which has progressed compared with prior outside imaging dating back to April 02, 2025. See details above. No definite involvement of the muscles in the forearm and hand 3. Right lower lobe consolidation and right pleural effusion. CT Extremity Left Archive for Reference Only Result Date: 04/07/2025 This study has been auto finalized and does not contain a result. CT Extremity Left Archive for Reference Only Result Date: 04/07/2025 This study has been auto finalized and does not contain a result. CR Extremity Right Archive for Reference only Result Date: 04/07/2025 This study has been auto finalized and does not contain a result. CT Extremity Right Archive for Reference Only Result Date: 04/07/2025 This study has been auto finalized and does not contain a result. CT Extremity Left Archive for Reference Only Result Date: 04/07/2025 This study has been auto finalized and does not contain a result. CT Extremity Right Archive for Reference Only Result Date: 04/07/2025 This study has been auto finalized and does not contain a result. CT Extremity Right Archive for Reference Only Result Date: 04/07/2025 This study has been auto finalized and does not contain a result. CR Chest Archive for Reference only Result Date: 04/07/2025 This study has been auto finalized and does not contain a result. ZEINAB Archive for reference only CT Result Date: 04/07/2025 This order has been auto-finalized and does not contain a result. ZEINAB Archive for reference only CT Result Date: 04/07/2025 This order has been auto-finalized and does not contain a result. CT Extremity Left Archive for Reference Only Result Date: 04/07/2025 This study has been auto finalized and does not contain a result. CT Extremity Left Archive for Reference Only Result Date: 04/07/2025 This study has been auto finalized and does not contain a result. CT Extremity Right Archive for Reference Only Result Date: 04/07/2025 This study has been auto finalized and does not contain a result. CR Chest Archive for Reference only Result Date: 04/07/2025 This study has been auto finalized and does not contain a result. CT Extremity Left Archive for Reference Only Result Date: 04/07/2025 This study has been auto finalized and does not contain a result. CT Extremity Right Archive for Reference Only Result Date: 04/07/2025 This study has been auto finalized and does not contain a result. CT Extremity Right Archive for Reference Only Result Date: 04/07/2025 This study has been auto finalized and does not contain a result. CR Extremity Right Archive for Reference only Result Date: 04/07/2025 This study has been auto finalized and does not contain a result. Current Medications: Current Medications[1] ALLERGIES: Allergies[2] I reviewed the prescribed Medications and new Laboratory Blood Work. Monitor for drug related adverse effects.>50 min spent in reviewing records, labs, imaging, coordination and formulation of plan of care I reviewed all new Imaging Studies (actual images) and compared to prior where applicable Of note, some information is being carried forward from prior records for informational purposes only and is being cited so that efficiency, safety and quality of this patient's care is not compromised This report was generated using [employer] dictation software. Although every attempt has been made by the provider to proofread this document, occasional misspellings and typographical errors Sign Anisa Perez MD, FID, [facility] Infectious Diseases Available via [employer] 04/11/2025 12:55 PM [1] Current Facility-Administered Medications Medication Dose Route Frequency Provider Last Rate Last Admin lactated ringers (LR) infusion 50 mL/hr Intravenous Continuous Luda Houser APRN 50 mL/hr at 04/11/25 1100 50 mL/hr at 04/11/25 1100 acetaminophen (TYLENOL) 160 mg/5 mL solution 975 mg 975 mg Feeding Tube Q6H [facility] Ani Brown APRN 975 mg at 04/11/25 1213 albuterol (PROVENTIL) (0.083%) 2.5 mg/3 mL nebulizer solution 2.5 mg 2.5 mg Nebulization Q6H PRN Ani Brown APRN baclofen (LIORESAL) tablet 10 mg 10 mg Feeding Tube Q8H [facility] Ani Mami Brown APRN 10 mg at 04/11/25 0854 bisacodyl (DULCOLAX) suppository 10 mg 10 mg Rectal Daily PRN Ani Mami Brown APRN 10 mg at 04/09/25 1129 chlorhexidine (PERIDEX) 0.12 % oral solution 15 mL 15 mL Mouth/Throat BID Ani Mami Brown APRN 15 mL at 04/11/25 0900 chlorhexidine gluconate 2 % wipes - daily CHG application Topical Daily Aniaaron Brown APRN 1 each at 04/11/25 0039 chlorhexidine gluconate 2 % wipes - daily CHG application Topical Daily Galdino Cunningham MD 1 eachat 04/11/25 0038 cloNIDine (CATAPRES) tablet 0.1 mg 0.1 mg Feeding Tube BID Arabella Avalos PA-C glucose (GLUTOSE 15) 40 % oral gel 37.5 g 1 Tube Oral Q15 Min PRN Ani Brown APRN Or glucose (GLUTOSE 15) 40 % oral gel 75 g 2 Tube Oral Q15 Min PRN Ani Brown APRN Or dextrose 50 % solution 12.5 g 12.5 g Intravenous Q15 Min PRN Ani Brown APRN 12.5 g at 04/09/25 1204 Or dextrose 50 % solution 25 g 25 g Intravenous Q15 Min PRN Ani Brown APRN Or glucagon (GLUCAGEN) injection 1 mg 1 mg Intramuscular Daily PRN Ani Brown APRN folic acid (FOLVITE) tablet 1 mg 1 mg Feeding Tube Daily VICENTE Cotto 1 mg at 04/11/25 0854 gabapentin (NEURONTIN) capsule 300 mg 300 mg Feeding Tube Q8H [facility] Ani Mami Brown APRN 300 mg at 04/11/25 0854 heparin (porcine) 5000 unit/mL injection 5,000 Units 5,000 Units Subcutaneous Q8H [facility] Aniaaron Brown APRN 5,000 Units at 04/11/25 0855 HYDROmorphone (DILAUDID) 1 mg/mL [employer] syringe (premix) Intravenous Continuous Joseph Campbell Jr., MD HYDROmorphone (DILAUDID) injection 1 mg 1 mg Intravenous Q1H PRN Ani Brown APRN 1 mg at 04/11/25 1011 insulin lispro (HumaLOG/ADMELOG) 100 units/mL injection 1-6 Units 1-6 Units Subcutaneous Q4H [facility] Sd Echevarria MD 1 Units at 04/10/25 0428 ketamine 1000 mg in 100 mL NS infusion (10 mg/mL) (premix) 5 mcg/kg/min Intravenous Continuous Gerald Avalos PA-C 2.3 mL/hr at 04/11/25 1100 5 mcg/kg/min at 04/11/25 1100 ketorolac (TORADOL) injection 15 mg 15 mg Intravenous Q8H PRN Ani Brown APRN 15 mg at 04/10/252050 labetalol (NORMODYNE,TRANDATE) injection 10 mg 10 mg Intravenous Q4H PRN Daniel Palacios PA-C linezolid (ZYVOX) IVPB 600 mg in 300 mL D5W (premix) 600 mg Intravenous Q12H Anisa Perez MD 300 mL/hr at 04/11/25 1214 600 mg at 04/11/25 1214 methadone (DOLOPHINE) tablet 60 mg 60 mg Feeding Tube Q8H [facility] Arabella Avalos PA-C 60 mg at 04/11/25 1214 multivitamin with minerals (CEROVITE) liquid 15 mL 15 mL Feeding Tube Daily Daniel Palacios PA-C 15 mL at 04/11/25 0854 [START ON 04/12/2025] naloxegol (MOVANTIK) tablet 25 mg 25 mg Feeding Tube Daily before breakfast Arabella Avalos PA-C naloxone (NARCAN) 0.4 mg/mL injection 0.4 mg 0.4 mg Intravenous Q5 Min PRN Ani Brown APRN ondansetron (ZOFRAN) injection 4 mg 4 mg Intravenous Q6H PRN Ani Brown APRN PANTOprazole (PROTONIX) injection 40 mg 40 mg Intravenous Daily Ani Brown APRN 40 mg at 04/11/25 0855 polyethylene glycol (miraLAx) packet 17 g 17 g Feeding Tube Daily Ani Brown APRN 17 g at 04/11/25 0855 propofol (diPRIvan) 1000 MG/100ML injection 5-75 mcg/kg/min Intravenous Titrated Ani Brown APRN 8.8 mL/hr at 04/11/25 1221 20 mcg/kg/min at 04/11/25 1221 protein supplement feeding tube flush (PROSOURCE TF) 1.5 oz 1.5 oz Feeding Tube BID Daniel Palacios PA-C 1.5 oz at 04/11/25 0858 senna-docusate (SENNA-S) 8.6-50 MG tablet 2 tablet 2 tablet Feeding Tube BID Ani Brown APRN 2 tablet at 04/11/25 0853 thiamine mononitrate (VITAMIN B-1) tablet 200 mg 200 mg Feeding Tube Daily VICENTE CottoC200 mg at 04/11/25 0854 [2] No Known Allergies * Ani Romero APRN - 04/11/2025 12:13 PM EDT Images from the original note were not included. Wound dressing change right upper ext wound Lateral, and medial, and chest wound Pre-Medication: IV dilaudid Wound Assessment: Lateral [place]ore[place] Torres with viable tissue, tunnels laterally, no odor or purulent drainage, scant bleeding Medial [place]ore[place] Torres with viable tissue, no purulent drainage, no odor, scant bleeding Chest [place]ns Torres with viable tissue, area tunnels deeply going laterally towards mitul, no purulent drainage noted, no foul odor, mitul in place Removal of 1 piece of kerlix wtd in lateral RUE wound 1 piece of kerlix wtd in medial RUE wound 1 piece of kerlix wtd in chest wound Dressing Application of : -Chest wound- 3/4 piece of wtd kerlix/normal saline covered with abd pad and taped - 1.5 piece of kerlix wtd in medial rue wound - 1 piece of kerlix wtd in lateral rue wound Then covered with abd pads and taped Patient Toleration: Well tolerated by patient. * Joseph Campbell Jr., MD - 04/11/2025 6:16 AM EDT C8I CRITICAL CARE PROGRESS NOTE Shift: 6:00pm-8:00am ICU Attending: Dr. Yarbrough Assessment & Plan The patient remains critically ill/injured and/or remains at high risk for life threatening complications due to: Assessment and Plan reviewed in detail and updated if indicated. Any changes made to plan are reflected below. 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 + continue 1mg IV Q1H PRN - Wean propofol gtt with plan for extubation - Continue ketamine infusion @ 5 mcg/kg/min for further analgesia - Continue Clonidine 0.1 mg BID - Continue Tylenol 975mg ngt Q6H scheduled - Continue Toradol 15mg IV Q8H scheduled x 15 doses - Change methadone dosing to 60 mg TID for more pain management in setting of multiple surgeries - Methadone clinic: [facility]) - Continue Gabapentin 300mg ngt Q8H - Continue Baclofen 10mg ngt Q8H - COWS monitoring Q4H Cardiovascular MRSA bacteremia 04/10 TTE: LVEF 62%, small pericardial effusion, no echocardiographic evidence of endocarditis - MAP > 65 - Labetolol PRN for hypertension - Obtain EKG daily to assess QTc in setting of methadone Respiratory Intubation for airway protection - Ventilator protocol - CPAP as tolerated - Wean supplemental O2 as tolerated for SpO2 goal > 92% - Albuterol Q6H prn for wheezing GI Constipation most likely due to opioid usage - NGT to suction - DHT placed in anticipation of extubation in the event she vomits/cannot tolerate PO - Protonix 40 mg every day - Bowel Regimen (dulcolax, zofran, miralax, senna) - Movantik 25mg Renal//Lytes ALIS - Daily BMP, Mag, Phos - Lynch Catheter in place, draining clear yellow urine - Strict Ins and Outs Extremities MRSA necrotizing soft tissue infection of right upper extremity Right upper extremity abscess Left upper extremity abscess antecubital fossa and synovitis in wrist 04/08: Debridement of RUE abscess extending to R shoulder and superficial tracts toward R chest/pectoralis major, washout, betadine soaked kerlix packing 04/09 CT Thorax, CT B/L upper extremity, CT soft tissue neck and Abdomen/pelvis w/ contrast: No evidence of extension of soft tissue infection or abscesses into neck, post-surgical changes in right anterior chest wall and RUE without organized collection, underlying intramuscular abscess cannot be excluded within right subpectoral area, small volume free fluid in abdomen/pelvis - ID consulted, appreciate recs - Wound team consulted - RUE dressing changes per surgery - Continue antibiotics per ID section - Per orthopaedics, advised to stay out of the glenohumeral joint; advised a posterior incision to drain triceps collection Heme Acute blood loss anemia - S/p 1U pRBC since RTOR as post-OR H/H 6.3/18.7 - Most recent post-transfusion H/H is 8.3/25.3 - Transfuse for H/H < 21 - Daily CBC or as otherwise clinically indicated Endocrine ALIS - Insulin Sliding Scale - POCT glucose q4h Infectious Disease Leukocytosis MRSA bacteremia (04/02) 04/07 Tissue Culture R arm: MRSA 04/09 BC: Sterile < 24 hours - Trend fever/WBC curve - Continue Linezolid 600 mg q12h (04/09- - Will discontinue Zosyn 4.5 mg as OR cultures show no gram-negative rods at 3 days - s/p Vancomycin 1250mg Q12H (04/07- 04/09) Abx Hx: - Ancef 04/07 - Outside hospital (Vanc/Zosyn 04/02 - ) - Clindamycin 900mg (04/08) VTE Time Out IMPROVE SCORE: 0 (04/06/2025 10:21 PM) Interpretation - Low Risk VTE risk low and NOT reassessed in last 5 days - Click here to document Chemical Prophylaxis heparin (porcine) 5000 unit/mL injection 5,000 Units Subcutaneous Every 8 hours scheduled Heparin Sodium (Porcine) 5000 Units Last dose 04/11/2025 8:55 AM Mechanical Prophylaxis SCDs are ordered - Bilateral (Knee High) STRESS ULCER PROPHYLAXIS: Protonix 40mg Indications: coag (plt <50k, INR >1.5 or PTT >2, vent >48 hours, recent GIB<1 yr, Severe TBI (GCS<8 or SCI), thermal calderón >35% BSA, hydrocortisone >250mg QD, pred 60, 10 decadron snf low dose ASA or plavix , therapeutic anticoagulation Restraints: bilateral soft wrist restraints in place to prevent inadvertent removal of necessary medical devices and to maintain patient safety, use reviewed today and remain medically necessary Lines/Devices: All invasive lines discussed during rounds and use reviewed 04/11/25. Central Line Present/Indication: Right internal jugular Lynch Present/Indication: Strict I&O ANTIBIOTIC TIME OUT Treatment Indication: Soft tissue infection Current antibiotic/day of therapy: Anti-infectives (From admission, onward) Start Dose/Rate Route Frequency Ordered Stop 04/09/25 1130 linezolid (ZYVOX) IVPB 600 mg in 300 mL D5W (premix) 600 mg 300 mL/hr over 60 Minutes Intravenous Every 12 hours 04/09/25 1122 Oral antibiotic transition date: NA Anticipated Stop date: NA Supportive Microbiology: Staph Aureus, MRSA bacteremia Subjective PMH/PSH: IVDU (OUD on methadone), anxiety, depression Hospital Course: 34 y.o. female with history of IVDU, anxiety, and depression who presented with RUE pain and swelling. She had an I&D of the RUE at an OSH which was closed with suture. On exam, she had significant erythema and induration that extended from the right elbow proximally. CT was done and showed fluid collection tracking from RUE to right chest. 04/07 BUE I&D w/ evacuation of about 1L of purulent fluid. RTOR 04/08 for additional I&D with extension of incision to shoulder, and Pulsavac with 6L fluid, superficial tracts into pectoralis major identified and flushed as well.Post-op pt remained intubated [facility] BUE/chest/neck soft tissues obtained withplan for RTOR 04/09. 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 Nods head yes to pain. Behavioral/Sedation scales: CAM-ICU Delirium Present: Positive Salmon Agitation Sedation Scale (RASS) / Modified RASS: +1-->restless Cardiac: RRR, S1/S2, no murmur Telemetry reviewed for past 24h and shows: NSR QTc: Extremities: Bilateral upper extremities wrapped and bandaged. RUE with bulky dressing over betadine-soaked kerlix, motor and sensory intact, 2+edema of fingers Left hand moderate edema, slight erythema Bilateral lower extremities without open wounds. Right LE with blood pressure cuff. Left LE with SCD in place. Pulmonary: Intubated, ETT, CTAB Gastrointestinal: NGT and DHT present. Soft, nontender, bowel sounds auscultated. : Urinary catheter Skin/Wound: see extremities Data/Lab Values DRIPS/MEDICATIONS lactated ringers, 50 mL/hr, Last Rate: 50 mL/hr (04/11/25 1100) HYDROmorphone, ketamine, 5 mcg/kg/min, Last Rate: 5 mcg/kg/min (04/11/25 1100) propofol, 5-75 mcg/kg/min, Last Rate: 30 mcg/kg/min (04/11/25 1138) CV: Temp: [95.2 ??F (35.1 ??C)-99.3 ??F (37.4 ??C)] 97.9 ??F (36.6 ??C) Pulse: [67-91] 91 Resp: [1-27] 27 BP: (133-188)/(49-120) 157/78 Recent Labs 04/08/25211404/09/25 0324 04/09/25 1025 04/09/25 1720 04/09/252128 CKTOTAL 138 97 91 262* 123 Recent Labs 04/09/25 1025 04/09/25 1720 04/09/252128 CKTOTAL 91 262* 123 PULM: RR: (!) 27,SpO2:97 % Ventilation Mode (Drager): VC-SIMV (non-invasive) Rate Set (breaths/min) (Drager): 12 Tidal Volume Set (mL) (Drager): 400 Oxygen Concentration (%) (Drager): 40 PEEP (cmH2O) (Drager): 8 Pressure Support (cmH2O) (Drager): 5 ABG: No results for input(s): PHA , PCO2 , PO2 , HCO3 in the last 72 hours. GI/NUTRITION: Diet NPO; Meds No results for input(s): AST , ALT , ALKPHOS , BILITOT , BILIDIR , ALBUMIN , PROT in the last 72 hours. No results for input(s): LIPASE in the last 72 hours. No results for input(s): ALBUMIN , PREALBUMIN , TRF in the last 72 hours. Recent Labs 04/08/252114 TRIG 234* RENAL: I/O this shift: In: 347.4 [I.V.:267.4; NG/GT:80] Out: 560 [Urine:560] Intake/Output Summary (Last 24 hours) at 04/11/2025 1209 Last data filed at 04/11/2025 1100 Gross per 24 hour Intake 2984.99 ml Output 3070 ml Net -85.01 ml Recent Labs 04/08/25211404/09/25 0324 04/09/25 1221 04/09/25 1720 04/10/25 0006 04/11/25 0057 NA 138 141 145 136 136 139 K 3.6 3.4 3.8 3.9 4.3 3.5 CO2 26 29 29 26 25 26 CL 102 105 105 104 102 106 BUN 10 10 9 7* 9 9 CREAT 0.58 0.66 0.63 0.58 0.54 0.61 CALCIUM 7.1* 7.4* 7.5* 8.7 7.5* 7.1* MG 2.1 2.1 1.9 1.7 1.9 1.9 PHOS 3.5 3.7 3.7 5.2* 5.3* 4.8* Calcium, Ionized Date Value Ref Range Status 04/10/2025 1.11 (L) 1.17 - 1.33 mmol/L Final Recent Labs 04/08/25211404/09/25 1720 LACTIC 1.1 1.4 HEME: Recent Labs 04/08/25 21104/09/25 0324 04/09/25 1221 04/09/25 1720 04/10/25 0006 04/10/25 0914 04/10/25 1513 04/11/25 0057 04/11/25 0630 HCT 22.4* 21.7* 22.4* 26.6* 21.7* 23.9* 21.8* 18.7* 25.3* HGB 7.2* 7.0* 7.2* 8.3* 7.2* 8.1* 7.4* 6.3* 8.3* WBC 9.4 12.3* 12.4* 17.1* 30.3* 20.8* 17.8* 19.5* 22.1* PLT 390 418 447 411 412 402 411 434 433 No results for input(s): PT , PTT , INR in the last 72 hours. No results for input(s): ANTIXA in the last 72 hours. ID: Temp Min: 95.2 ??F (35.1 ??C) Max: 99.3 ??F (37.4 ??C) Recent Labs 04/10/25 1513 04/11/25 0057 04/11/25 0630 WBC 17.8* 19.5* 22.1* No results for input(s): GLUCCSF , PROTCSF , WBCCSF , RBCCSF , LACTATECSF in the last 72 hours. Cultures: See micro in EPIC ENDOCRINE: Results from last 7 days Lab Units 04/11/25 0801 04/11/25 0400 04/11/25 0057 04/11/25 0031 04/10/25 2004 04/10/25 1547 04/10/25 1202 GLUCOSE mg/dL -- -- 115* -- -- -- -- GLUCOSE, POC mg/dL 116* 117* -- 103* 94 126* 124* Lab Results Component Value Date HGBA1C 5.3 04/10/2025 Relevant data reviewed: I have reviewed all past medical history, all past surgical history, allergies, home medications, and inpatient data since admission. Imaging Studies: All interval imaging reviewed. CXR Report reviewed KUB Report reviewed Family Update: No family present at bedside at time of exam. Critical Care time spent in multiple visits throughout the day for collaboration/coordination of care exclusive of time spent performing separately billable medical procedures is 60 minutes. Patient seen and examined. Chart and clinical information reviewed. Previous notes and lab data reviewed. Case discussed with ICU attending, ICU team, primary team, available consultants and the patient's family when available. Of note, some information is being carried forward from prior records for informational purposes only and is being cited so that efficiency, safety and quality of this patient's care is not compromised. Activities included: Chart/data review, Documentation, Medication orders/management, Interpreting/reviewing radiologic studies, Vital sign assessments, and Interpreting/reviewing lab tests Plan of care reviewed with ICU attending and in agreement with above. Signature Joseph Campbell Jr., MD 12:09 PM 04/11/2025 Cosigned by Sophia Yarbrough MD at 04/11/2025 2:18 PM EDT Associated attestation - Sophia Yarbrough MD - 04/11/2025 2:18 PM EDT I have personally interviewed and examined the patient and reviewed Dr. Adrian GUTIÉRREZ 's note. I agree with the history, exam, assessment and plan as detailed in resident's note with the following additions/exceptions/observations Received 2 units of PRBCs yesterday for acute blood loss anemia secondary to wound-site bleeding, with good clinical and hematologic response. Increase methadone to 60 mg PO q8h. 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 Wean off ketamine infusion before extubation Continue multimodal analgesic regimen (acetaminophen, gabapentinoid, and adjuvant agents as tolerated). Consult Anesthesia for right brachial plexus and pectoralis nerve block for improved regional pain control. Place post-pyloric Dobbhoff feeding tube prior to planned extubation. Wean ventilatory support and extubate once clinical criteria are met. Maintain aggressive bowel regimen and continue naloxegol to prevent opioid- induced constipation. Continue wound care per recommendations of the primary surgical team. Discontinue Zosyn; continue Linezolid and start clindamycin per Infectious Disease guidance. Trend daily H/H; maintain Hgb > 7 g/dL. Continue with maintenance IV fluid LR at 50 mL/h The patient remains critically ill/injured and/or remains at high risk for life threatening complications due to: Acute hypoxic respiratory failure Acute on chronic pain syndrome Hypertension MRSA necrotizing soft tissue infection of the right upper extremity and left upper extremity Acute blood loss anemia MRSA bacteremia Subjective Patient examined and chart reviewed on Rounds and on multiple occasions throughout the day, including PMH, PSH, FH, SH, ROS, medications and allergies, as noted previously in the chart. Physical findings and lab work confirmed by my exam. Plan discussed and agreed upon with team. See ICU Resident note for details. See flow sheet. Activities included: Chart/data review, Documentation, Medication orders/management, Titration of medications, Collaborating with consultants, Care, transfer of care and discharge plans, Nutritional support, Interpreting/reviewing radiologic studies, Reviewing RN notes/previous records, Ventilator management, Vital sign assessments, and Interpreting/reviewing lab tests Critical Care Time Spent: 40 minutes (Exclusive of time spent on procedures) Sign: Sophia Yarbrough MD SICU Attending Staff Department of Anesthesiology and Surgical Critical Care * David Jules MD - 04/11/2025 5:41 AM EDT Daily General Surgery Progress Note Assessment & Plan Molly Beasley is a 34 y.o. female with history of IVDU, anxiety, and depression who presented withRUE pain and swelling. She had an I&D of the RUE at an OSH which was closed with suture. On exam, she had significant erythema and induration that extended from the right elbow proximally. CT wasdone and showed fluid collection tracking from RUE to right chest. Patient has had multiple debridements of right upper, left upper extremities on 04/07, 04/08, subsequent right chest wall debridement through a sternal incision 04/09, debridement 04/10. Last 24rs complicated by need for 4rh unit prbc for hgb 6.3 overnight. To date now at 4 units PRBC 1 unit FFP. TEG with normal parameters no need for coagulation products. She does have an elevation in her white count today 22.1 no fevers Tmax 7.3. There is no strikethrough of her right upper extremity which was noted yesterday=Appreciate infectious disease input for tailoring antibiotics. Plan - Follow-up post-transfusion hemoglobin - Will need discussion with patient about goals of care given her complicated case, once she is extubated and awake. - abx: zosyn, linezolid. Continue Zosyn until no GNR at 3 day update from cultures. - Recommend starting enteral feeds - Wean vent per ICU - Pain control: tylenol, dilaudid, toradol - Monitor vitals / strict I&Os - Pulmonary hygiene, IS - OOB and activity as tolerated - Appreciate recommendations from ID - Appreciate care per ICU. Principal Problem: Hand abscess (POA: Yes) Active Problems: Abscess of arm, right (POA: Unknown) Abscess of left arm (POA: Unknown) Lung nodule (POA: Unknown) MRSA bacteremia (POA: Unknown) Infection of wound due to methicillin resistant Staphylococcus aureus (MRSA) (POA: Unknown) 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) IV drug user (POA: Unknown) Difficult intravenous access (POA: Unknown) ADHD (POA: Unknown) Resolved Problems: Subjective ECHO completed overnight without signs of endocarditis. Needed PRBC at 5 AM this morning there is no strikethrough of the right upper extremity. Subjective history limited by patient intubated and sedated. Objective Last Vitals Pulse:75,Resp:(!) 11,BP:(!) 160/75,SpO2:99 %,Weight:75.2 kg (165 lb 12.6 oz) Temp Last 24 hrs: Temp Min: 95.2 ??F (35.1 ??C) Max: 99.3 ??F (37.4 ??C) Last temp: 97.3 ??F (36.3 ??C) Intake/Output Summary (Last 24 hours) at 04/11/2025 0541 Last data filed at 04/11/2025 0530 Gross per 24 hour Intake 4040.58 ml Output 2860 ml Net 1180.58 ml Physical Exam Gen: Intubated sedated Card: regular rate Chest: Right sternal incision with [place] in place no surrounding erythema or drainage, right axillary incision with other end of [place] no surrounding erythema or drainage. Pulm: Intubated on SIMV Right extremity: Omid wrap in place without strikethrough, there is 2+ radial pulse,<2sec cap refill. Grimaces with manipulation. Left extremity: surgical dressing in place. No drainage on dressing. Grimaces to palpation of the left bicep. Skin: warm and dry VTE Time Out IMPROVE SCORE: 0 (04/06/2025 10:21 PM) Interpretation - Low Risk VTE risk low and NOT reassessed in last 5 days - Click here to document Chemical Prophylaxis heparin (porcine) 5000 unit/mL injection 5,000 Units Subcutaneous Every 8 hours scheduled Heparin Sodium (Porcine) 5000 Units Last dose 04/11/2025 12:40 AM Mechanical Prophylaxis SCDs are ordered - Bilateral (Knee High) Labs: White Blood Cell Count Date Value Ref Range Status 04/11/2025 19.5 (H) 4.0 - 11.0 Thou/uL Final Hemoglobin Date Value Ref Range Status 04/11/2025 6.3 (L) 11.7 - 15.7 g/dL Final Hematocrit Date Value Ref Range Status 04/11/2025 18.7 (LL) 35.0 - 47.0 % Final Comment: Test results repeated. Platelet Count Date Value Ref Range Status 04/11/2025 434 150 - 450 Thou/uL Final Lab Results Component Value Date NA 139 04/11/2025 K 3.5 04/11/2025 CL 106 04/11/2025 CO2 26 04/11/2025 BUN 9 04/11/2025 CREAT 0.61 04/11/2025 GLUC 117 (H) 04/11/2025 GLUC 115 (H) 04/11/2025 Lab Results Component Value Date CALCIUM 7.1 (L) 04/11/2025 MG 1.9 04/11/2025 PHOS 4.8 (H) 04/11/2025 No results found for: AST , ALT , ALKPHOS , BILITOT , BILIDIR , ALBUMIN , PROT No results found for: AMYLASE , LIPASE No results found for: PTT , LABPROT , INR Imaging Studies XR Chest 1 view-Portable Result Date: 04/08/2025 EXAMINATION: XR CHEST CLINICAL INFORMATION: Confirmation of IJ COMPARISON: Chest radiograph 04/02/2025 TECHNIQUE: Frontal view of the chest was obtained. FINDINGS: Right IJ CVC projects over the cavoatrial junction. Lungs are hypoexpanded. Asymmetric elevation of the right hemidiaphragm. Subsegmental atelectasis in the right lung base. No focal consolidation. Mild blunting of the right costophrenic sulcus. Cardiomediastinal silhouette is similar to prior. No acute osseous findings. 1. Right IJ CVC projects over the cavoatrial junction. No postprocedural pneumothorax. 2. Subsegmental atelectasis in the right lung base. 3. Possible trace right pleural effusion. Interpreted by: Emilee Casas MD Natural Gas Engineer I personally reviewed the images and the resident's preliminaryreport and AGREE with the report as it is now presented ([email or web address]). MRI Arm w w/o contrast-Lower right Result Date: 04/07/2025 EXAMINATION: MR UPPER EXTREMITY NON JOINT WITHOUT AND WITH CONTRAST, HUMERUS, RIGHT MRI OF THE UPPER EXTREMITY NONJOINT WITHOUT AND WITH CONTRAST FOREARM, RIGHT CLINICAL INFORMATION: Right arm abscess. COMPARISON: Multiple prior examinations most recent CT upper extremity exam April 07, 2025. TECHNIQUE: MRI of the right upper extremity/humerus was performed without and with contrast on a high-field MRI scanner. MRI of the right upper extremity/forearm was performed without and with contrast joy high-field MRI scanner. Contrast 7.5 mL of Magnevist contrast given intravenously during both portions of the exam. FINDINGS: Exam is significantly limited because of difficulties positioning the patient and patient movement. Additionally axial T2-weighted sequences of the forearm and axial T1-weighted sequences of the upper arm humerus could not be obtained. RIGHT UPPER EXTREMITY/HUMERUS: As noted on the CT examination again noted is a lobulated fluid collection extending along the deep surface of the pectoralis major muscle, coracobrachialis extending into the axilla with enhancement of the surrounding tissues. This is suspicious for an evolving abscess. The noted fluid collections above are continuous with the biceps muscle both within the muscle and surrounding the muscle deep to the fascia throughout the anterior compartment and extending the length of the upper extremity to the level of the proximal portion of the distal biceps tendon. Additional mild increased T2 signal and enhancement of the muscles compatible with generalized myositis. The fluid anterior to the anterior compartment deep to the fascia measures up to 1 cm. Also again noted is fluid extending between the teres minor and triceps muscles proximally and extending distally within the posterior compartment deep to the fascia surrounding and partially compressing the triceps muscles. The appearance is suspicious for subfascial abscess between the fascia and triceps muscles. This extends the length of the triceps muscles. This collection measures up to 1.6 cm anterior to posterior. Mild heterogeneous abnor mal signal and enhancement of the muscles compatible with myositis. There is generalized fluid signal in the subcutaneous soft tissues with partial enhancement compatible with a combination of edema and cellulitis throughout the upper arm. Osseous structures: Normal. No abnormal marrow signal. RIGHT UPPER EXTREMITY/FOREARM: As in the upper extremity there is feathery-appearing fluid- like signal noted throughout the forearm with partial enhancement compatible with a combination of edema and cellulitis. There is a lobulated fluid collection at least partially within the brachialradialis muscle and adjacent extensor muscles proximally beginning at the elbow joint and extending to the forearm over approximately 9 cm craniocaudal, 5 cm transverse and 1 cm AP. The collection appears to extend outside of the muscle deep to the fascia as it extends distally. There is heterogeneous enhancement of the noted muscles compatible with myositis. Remaining muscles of the forearm do not demonstrate any definite enhancement. Full evaluation is limited as we were unable to obtain T2-weighted sequences. No additional visible muscle collection noted. Osseous structures: There is possible ill-defined increased T2 signal in the olecranon which is not completely imaged throughout the examination in multiple planes Exam is significantly limited because of difficulties positioning the patient and patient movement.Diffuse generalized abnormality in the subcutaneous soft tissues throughout the right chest, upper arm and forearm compatible with a combination of edema and cellulitis and myositis. As seen on priorCT there are lobulated confluent fluid collections evolving multiple muscle groups and compartmentsas detailed above including the pectoralis major as well as extending distally within anterior and posterior compartment muscles and between the muscles and fascia in the upper arm consistent with and suspicious for abscesses along with myositis. In the proximal forearm anterolaterally there is a fluid collection at least partially within the brachial radialis and extensor muscles and between these muscles and overlying fascia suspicious for abscess along with adjacent myositis. Question abnormal increased T2 signal in the olecranon not completely assessed on this examination.. No bone erosion. Cannot exclude localized osteomyelitis. The remaining bones throughout the upper and lower extremity appear normal MRI Arm w w/o contrast-Upper right Result Date: 04/07/2025 EXAMINATION: MR UPPER EXTREMITY NON JOINT WITHOUT AND WITH CONTRAST, HUMERUS, RIGHT MRI OF THE UPPER EXTREMITY NONJOINT WITHOUT AND WITH CONTRAST FOREARM, RIGHT CLINICAL INFORMATION: Right arm abscess. COMPARISON: Multiple prior examinations most recent CT upper extremity exam April 07, 2025. TECHNIQUE: MRI of the right upper extremity/humerus was performed without and with contrast on a high-field MRI scanner. MRI of the right upper extremity/forearm was performed without and with contrast joy high-field MRI scanner. Contrast 7.5 mL of Magnevist contrast given intravenously during both portions of the exam. FINDINGS: Exam is significantly limited because of difficulties positioning the patient and patient movement. Additionally axial T2-weighted sequences of the forearm and axial T1-weighted sequences of the upper arm humerus could not be obtained. RIGHT UPPER EXTREMITY/HUMERUS: As noted on the CT examination again noted is a lobulated fluid collection extending along the deep surface of the pectoralis major muscle, coracobrachialis extending into the axilla with enhancement of the surrounding tissues. This is suspicious for an evolving abscess. The noted fluid collections above are continuous with the biceps muscle both within the muscle and surrounding the muscle deep to the fascia throughout the anterior compartment and extending the length of the upper extremity to the level of the proximal portion of the distal biceps tendon. Additional mild increased T2 signal and enhancement of the muscles compatible with generalized myositis. The fluid anterior to the anterior compartment deep to the fascia measures up to 1 cm. Also again noted is fluid extending between the teres minor and triceps muscles proximally and extending distally within the posterior compartment deep to the fascia surrounding and partially compressing the triceps muscles. The appearance is suspicious for subfascial abscess between the fascia and triceps muscles. This extends the length of the triceps muscles. This collection measures up to 1.6 cm anterior to posterior. Mild heterogeneous abnor mal signal and enhancement of the muscles compatible with myositis. There is generalized fluid signal in the subcutaneous soft tissues with partial enhancement compatible with a combination of edema and cellulitis throughout the upper arm. Osseous structures: Normal. No abnormal marrow signal. RIGHT UPPER EXTREMITY/FOREARM: As in the upper extremity there is feathery-appearing fluid- like signal noted throughout the forearm with partial enhancement compatible with a combination of edema and cellulitis. There is a lobulated fluid collection at least partially within the brachialradialis muscle and adjacent extensor muscles proximally beginning at the elbow joint and extending to the forearm over approximately 9 cm craniocaudal, 5 cm transverse and 1 cm AP. The collection appears to extend outside of the muscle deep to the fascia as it extends distally. There is heterogeneous enhancement of the noted muscles compatible with myositis. Remaining muscles of the forearm do not demonstrate any definite enhancement. Full evaluation is limited as we were unable to obtain T2-weighted sequences. No additional visible muscle collection noted. Osseous structures: There is possible ill-defined increased T2 signal in the olecranon which is not completely imaged throughout the examination in multiple planes Exam is significantly limited because of difficulties positioning the patient and patient movement.Diffuse generalized abnormality in the subcutaneous soft tissues throughout the right chest, upper arm and forearm compatible with a combination of edema and cellulitis and myositis. As seen on priorCT there are lobulated confluent fluid collections evolving multiple muscle groups and compartmentsas detailed above including the pectoralis major as well as extending distally within anterior and posterior compartment muscles and between the muscles and fascia in the upper arm consistent with and suspicious for abscesses along with myositis. In the proximal forearm anterolaterally there is a fluid collection at least partially within the brachial radialis and extensor muscles and between these muscles and overlying fascia suspicious for abscess along with adjacent myositis. Question abnormal increased T2 signal in the olecranon not completely assessed on this examination.. No bone erosion. Cannot exclude localized osteomyelitis. The remaining bones throughout the upper and lower extremity appear normal CT Upper extremity with contrast-Left Addendum Date: 04/07/2025 ADDENDUM #1 Addendum: Reactive left axillary lymph nodes. Result Date: 04/07/2025 EXAMINATION: CT left upper extremity without contrast CLINICAL INFORMATION: Abscess evaluation COMPARISON: MRI left humerus dated same day TECHNIQUE: Multiple axial CT images of the left upper extremity are acquired without contrast. Sagittal and coronal reconstructions are provided. 75 mL Omnipaque 300. DOSE LOWERING TECHNIQUES: This CT examination was performed using dose optimization techniques as appropriate, variously including the following: - Automated exposure control - Adjustment of mAand/or kV according to patient size (this includes techniques or standardized protocols for targeted exams where dose is matched to indication/reason for exam; i.e. extremities or head) - Use of iterative construction technique 1676.35 FINDINGS: Within the upper extremity, one appears deep to the biceps musculature there is a peripherally enhancing fluid collection originating approximately 10 cmproximal to the elbow joint and extending to the level of the elbow joint. At its distal aspect the fluid collection appears to extend to the subcutaneous soft tissues. No definite enhancing fluid collection distal to the subcutaneous component distal to the elbow joint. Diffuse subcutaneous soft tissue inflammation of the elbow and forearm. No acute osseous abnormality. Peripherally enhancing fluid collection within the upper extremity, approximately 10 cm proximal tothe elbow joint and extending to the level of the elbow joint. At its distal aspect the fluid collection appears to extend to the subcutaneous soft tissues. No definite enhancing fluid collection distal to the subcutaneous component distal to the elbow joint. Findings are concerning for abscess. CT Upper extremity with contrast-Right Result Date: 04/07/2025 EXAMINATION: CT UPPER EXTREMITY WITH CONTRAST, RIGHT CLINICAL INFORMATION: Concern for soft tissue infection of entire right upper extremity. COMPARISON: Outside CTA of the right upper extremity April 02, 2025. TECHNIQUE: CT scan of the right upper extremity was performed with contrast. Reconstruction imaging performed at the acquisition workstation. Contrast dose 80 mL of Omnipaque [address] examination was performed using dose optimization techniques as appropriate, variously including the following: *Automated exposure control *Adjustment of mA and/or kV according to patient size (this includes techniques or standardized protocols for targeted exams where dose is m atched to indication/reason for exam; i.e. extremities or head) *Use of iterative reconstruction technique DLP: 1068 mGy-cm FINDINGS The large nnlma-[id number] and positioning limits evaluation. Subcutaneous soft tissues: There is feathery-appearing fluid-like density noted throughout including the right chest wall and into the right side of the abdomen, as well as circumferentially about the shoulder region, right upper extremity, right forearm and into the hand. No gas noted. MUSCLES/TENDONS: Right shoulder and chest region: There is ill-defined lobulated fluid extending within and along the superficial and deep surface of the pectoralis major and minor, coracobrachialis and teres major. In the upper arm, there is additional fluid extension and involvement of the anterior compartment muscles including the biceps, brachialis and brachioradialis along with the overlying subcutaneous soft tissues. There is also fluid extending along the outer aspect of the triceps muscles deep to the fascia the length of the muscle in the upper extremity. In the forearm and hand, there is no definite involvement of the muscles although there is extensive feathery-appearing fluid-like density in the subcutaneous soft tissues. The osseous structures are intact. The chest is also included in the examination. Numerous lymph nodes present within the axilla, likely reactive. There is consolidation in the right lower lobe and a right pleural effusion. 1. Extensive fluid-like density throughout the subcutaneous soft tissues of the right chest wall, right abdominal wall, right upper extremity and right forearm and hand. This is nonspecific but couldreflect edema, cellulitis or a combination of these. This appears to have progressed compared with outside imaging of the right upper extremity dating back to April 02, 2025. 2. There is fluid extending within and along the superficial and deep surface muscles and muscle groups in the right chest/chest wall and right upper extremity compatible with myositis and likely evolving phlegmon or abscesses which has progressed compared with prior outside imaging dating back to April 02, 2025. See details above. No definite involvement of the muscles in the forearm and hand 3. Right lower lobe consolidation and right pleural effusion. 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) IV drug user (POA: Unknown) Difficult intravenous access (POA: Unknown) ADHD (POA: Unknown) Resolved Problems: LOS: 5 days Procedures: Surgical/Procedural Cases on this Admission Case IDs Date Procedure Surgeon Location Status [id number] 04/07/25 INCISION & DRAINAGE AND DEBRIDEMENT UPPER EXTREMITY Db Lynn MD [facility] [id number] 04/08/25 INCISION & DRAINAGE Galdino Cunningham MD Main OR Comp [id number] 04/09/25 DEBRIDEMENT UPPER EXTREMITY AND CHEST Db Lynn MD [facility] OR Comp [id number] 04/10/25 DEBRIDEMENT WOUND RIGHT UPPER EXTREMITY, LEFT UPPER EXTREMITY, RIGHT CHEST WALL Shaila Solorio MD Main OR Comp Assessment & Plan Assessment: Molly Beasley is a 34 y.o. female POD0 s/p Procedure(s) (LRB): DEBRIDEMENT WOUND RIGHT UPPER EXTREMITY, LEFT UPPER EXTREMITY, RIGHT CHEST WALL (Bilateral) Patient is currently intubated and sedated in the ICU. Not requiring pressor support. Her wounds from the most recent debridement, which now extends across her right upper chest wall, are cleanly wrapped. She is otherwise putting out a good amount of urine at this time. She does continue to remain edematous in her extremities at this time. Plan: -Goals of care discussion once she is extubated and awake. -Follow-up blood and tissue cultures -Follow morning CBC, most recent early a.m. hemoglobin dropped to 6.3, now receiving 1 unit PRBCs per SICU care -Abx: Zosyn until no GNR at 3-day update from cultures, linezolid -Diet: NPO, TF at 20 mL/h -IVF: LR at 50 mL/h -DVT prophylaxis: HSQ -Nausea control: Zofran as needed -Pain control: Tylenol, gabapentin, Dilaudid, ketamine, Toradol -Appropriate home medications restarted -Strict I & O -Lynch Subjective Patient subjective portion of the exam is limited by her current intubation status. Was sedated to the degree that she is not able to clearly answer questions regarding pain, nausea, vomiting. Objective Last Vitals Pulse:70,Resp:(!) 11,BP:139/75,SpO2:100 %,Weight:75.2 kg (165 lb 12.6 oz) Temp Last 24 hrs: Temp Min: 95.2 ??F (35.1 ??C) Max: 99.3 ??F (37.4 ??C) Date 04/10/25 1500 - 04/11/2559 04/11/25 0700 - 04/12/25 0659 Shift [id number] 4198-7484 24 Hour Total 4871-0135 5132-7386 2123-0022 24 Hour Total INTAKE I.V.(mL/kg) 560.9(7.5) 363(4.8) 1724.3(22.9) Volume (mL) Propofol 109.5 66.5 349.3 Volume (mL) Hydromorphone 8 5 21 Volume (mL) Ketamine 18.4 11.5 35.6 NS Flush Volume Proximal Lumen (Central Line - Triple Lumen (Adult) 04/07/25 1500 internal jugular vein, right) 5 15 NS Flush Volume Distal Lumen (Central Line - Triple Lumen (Adult) 04/07/25 1500 internal jugular vein, right) 15 25 NS Flush Volume Medial Lumen (Central Line - Triple Lumen (Adult) 04/07/25 1500 internal jugular vein, right) 5 30 45 Volume (mL) ( lactated ringers (LR) infusion) 992 449 9609.3 Volume (mL) (sodium chloride (NS) 0.9 % infusion - ADS Override Pull) 30 Blood 300 Volume Transfused- DOCUMENT POST TRANSFUSION COMPLETE (Transfuse RBC's:Transfusion Indications: Hemoglobin greater than 7 gm/dl or HCT greater than 21% but Acute blood loss greater than 500 ml and symptoms not corrected by volume; Transfusion duration per unit (hrs): 1) 300 NG/GT 90 80 310 Promote with Fiber (mL) 0 50 130 Flush/Irrigation/Free Water Volume (mL) (Naso/Orogastric Tube (Adult) 04/08/25 2100 nasogastric left nostril) 90 30 180 IV Piggyback 508 224 3342 Volume (mL) (linezolid (ZYVOX) IVPB 600 mg in 300 mL D5W (premix)) 300 600 Volume (mL) (magnesium sulfate IVPB 2 g in 50 mL SW PREMIX) 50 50 Volume (mL) (calcium gluconate IVPB 2 g in 100 mL NS PREMIX) 100 100 Volume (mL) (piperacillin-tazobactam (ZOSYN) 4.5 g in sodium chloride-MBP (NS) 100 mL IVPB-MBP) 258505 300 Shift Total(mL/kg) 750.9(10) 993(13.2) 3384.3(45) OUTPUT Urine(mL/kg/hr) 1080(1.8) 285 2510 Urine Output (mL) (Urethral Catheter (Adult) 04/08/252017 latex 16 Fr 10 mL balloon size 10 mL balloon inflation volume) 2400 309 5141 Stool Unmeasured Stool Occurrence 1 x 3 x Shift Total(mL/kg) 1080(14.4) 285(3.8) 2510(33.4) NET -329.1 708 874.3 Weight (kg) 75.2 75.2 75.2 75.2 75.2 75.2 75.2 Intake/Output Summary (Last 24 hours) at 04/11/2025 0353 Last data filed at 04/11/2025 0300 Gross per 24 hour Intake 3873.58 ml Output 2775 ml Net 1098.58 ml Physical Exam General Appearance: No acute distress. Sedated and resting in bed. Cardiac: Regular rate. Pulmonary: Mechanically ventilated Abdomen: Soft, mildly distended/obese/baseline distended. Upper extremities: The right upper extremity is wrapped along the length with a omid wrap. There aresome abdominal pads with tape extending across her right upper chest wall. All of the bandages and dressings appear to be clean, dry, and appropriately placed. There is pitting edema at the level of her hands bilaterally. Sign Timbo Enrique MD Surgery PGY-1 * Anisa Perez MD - 04/10/2025 9:39 AM EDT Images from the original note were not included. [facility] Name: Molly Beasley Age: 34 y.o. Sex: female ASSESSMENT & PLAN Assessment: 34-year-old female with history of active IV drug use, history of xylazine infection, depression, anxiety, transferred to [facility] from OSH on 04/06 for concern of right upper extremity abscess. Patient initially presented to OSH on 04/02 with redness/swelling of the right upper extremity in the setting of active IV cocaine use, underwent formal I&D on 04/05 of the right antecubital fossa. Repeat imaging of the forearm on 04/06 at OSH demonstrated developing abscess within the biceps muscle with concern for possible necrotizing fasciitis without soft tissue gas. CT of the left forearm demonstrated partially visualized abscess in the antecubital fossa and synovitis in the wrist.At OSH, 2 /2 blood cultures came back positive number of MRSA on 04/02. At [facility], patient was febrile 200.6, currently on vancomycin, evaluated by orthopedics and general surgery. ID was consulted on 04/07 1. Right upper extremity abscess with significant induration which extended into the right elbow, underwent multiple debridements of the right upper / left upper extremities on 04/07, 04/08 and subsequent right chest wall debridement through sternal incision on 04/09. -04/07, OR notes-. copious amounts of purulent fluid in the biceps muscle cultures grew MRSA, susceptible to vancomycin/linezolid/minocycline -On 04/08, OR notes-> copious purulence with a small track running to the chest which was evacuated as well 2. MRSA bacteremia at OSH - 04/08, blood culture = NGTD @ OSH -08/04 blood cultures positive at OSH on 04/02 -2D Echo OSH was negative for vegetations 3. Hx active IV drug use, uses a bundle of fentanyl every day. On methadone 130 mg 4. Antibiotics -Vancomycin 04/07-04/09 -Zosyn, 04/07 -Clindamycin x 1, 04/07 - Linezolid, 04/09 5. Other. Her HIV antibody is negative. HCV antibody positive Recommendations: -Overnight events noted of dressing saturation, which was changed twice by the surgical team/ Patient received a unit of blood -Afebrile, repeat blood cultures have stayed negative -Plan for OR today to assess for abscess/more necrotic tissue 1. WBC is elevated to 30.3 which can be reactive in the setting of overnight events 2. Communicated with microbiology, and MRSA is susceptible to linezolid, continue linezolid 600 mg IV every 12hrs 3. Continue Zosyn IV, till OR cultures show no gram-negative rods at 3 days 4. 2D echo is pending 5. Obtain HCVRNA. Ordered Appreciate excellent care by ICU team ANTIBIOTIC TIME OUT Current antibiotic/day of therapy: Anti-infectives (From admission, onward) Start Dose/Rate Route Frequency Ordered Stop 04/09/25 1130 linezolid (ZYVOX) IVPB 600 mg in 300 mL D5W (premix) 600 mg 300 mL/hr over 60 Minutes Intravenous Every 12 hours 04/09/25 1122 04/07/25 1030 piperacillin-tazobactam (ZOSYN) 4.5 g in sodium chloride-MBP (NS) 100 mL IVPB-MBP 4.5 g 33.3 mL/hr over 3 Hours Intravenous Every 6 hours 04/07/25 1015 OBJECTIVE Physical Examination: Vitals: 04/10/25 0800 BP: (!) 161/68 Pulse: 87 Resp: 15 Temp: 99 ??F (37.2 ??C) SpO2: 100% Weight: Height: Nursing staff present General General appearance - female Intubated and sedated Right upper extremity in a dressing with Omid, which was soaked with blood. Left upper extremity covered with a dressing Right chest covered with a dressing Right IJ in place Results from last 7 days Lab Units 04/10/25 0801 04/10/25 0410 04/10/25 0025 04/10/25 0022 04/10/25 0006 04/09/25 2005 04/09/25 1720 04/09/25 1242 04/09/25 1221 SODIUM mmol/L -- -- -- -- 136 -- 136 -- 145 POTASSIUM mmol/L -- -- -- -- 4.3 -- 3.9 -- 3.8 CHLORIDE mmol/L -- -- -- -- 102 -- 104 -- 105 CO2 mmol/L -- -- -- -- 25 -- 26 -- 29 BUN mg/dL -- -- -- -- 9 -- 7* -- 9 CREATININE mg/dL -- -- -- -- 0.54 -- 0.58 -- 0.63 CALCIUM mg/dL -- -- -- -- 7.5* -- 8.7 -- 7.5* GLUCOSE mg/dL -- -- -- -- 205* -- 126* -- 105* GLUCOSE, POC mg/dL 137* 150* 244* < > -- < > 145* < > -- EGFR -- -- -- -- >90 -- >90 -- >90 < > = values in this interval not displayed. Blood Cultures: Lab Results Component Value Date CULTURE Sterile <24 hours 04/09/2025 Imaging Studies XR Chest 1 view-Portable Result Date: 04/08/2025 EXAMINATION: XR CHEST CLINICAL INFORMATION: Confirmation of IJ COMPARISON: Chest radiograph 04/02/2025 TECHNIQUE: Frontal view of the chest was obtained. FINDINGS: Right IJ CVC projects over the cavoatrial junction. Lungs are hypoexpanded. Asymmetric elevation of the right hemidiaphragm. Subsegmental atelectasis in the right lung base. No focal consolidation. Mild blunting of the right costophrenic sulcus. Cardiomediastinal silhouette is similar to prior. No acute osseous findings. 1. Right IJ CVC projects over the cavoatrial junction. No postprocedural pneumothorax. 2. Subsegmental atelectasis in the right lung base. 3. Possible trace right pleural effusion. Interpreted by: Emilee Casas MD Natural Gas Engineer I personally reviewed the images and the resident's preliminaryreport and AGREE with the report as it is now presented ([email or web address]). MRI Arm w w/o contrast-Lower right Result Date: 04/07/2025 EXAMINATION: MR UPPER EXTREMITY NON JOINT WITHOUT AND WITH CONTRAST, HUMERUS, RIGHT MRI OF THE UPPER EXTREMITY NONJOINT WITHOUT AND WITH CONTRAST FOREARM, RIGHT CLINICAL INFORMATION: Right arm abscess. COMPARISON: Multiple prior examinations most recent CT upper extremity exam April 07, 2025. TECHNIQUE: MRI of the right upper extremity/humerus was performed without and with contrast on a high-field MRI scanner. MRI of the right upper extremity/forearm was performed without and with contrast joy high-field MRI scanner. Contrast 7.5 mL of Magnevist contrast given intravenously during both portions of the exam. FINDINGS: Exam is significantly limited because of difficulties positioning the patient and patient movement. Additionally axial T2-weighted sequences of the forearm and axial T1-weighted sequences of the upper arm humerus could not be obtained. RIGHT UPPER EXTREMITY/HUMERUS: As noted on the CT examination again noted is a lobulated fluid collection extending along the deep surface of the pectoralis major muscle, coracobrachialis extending into the axilla with enhancement of the surrounding tissues. This is suspicious for an evolving abscess. The noted fluid collections above are continuous with the biceps muscle both within the muscle and surrounding the muscle deep to the fascia throughout the anterior compartment and extending the length of the upper extremity to the level of the proximal portion of the distal biceps tendon. Additional mild increased T2 signal and enhancement of the muscles compatible with generalized myositis. The fluid anterior to the anterior compartment deep to the fascia measures up to 1 cm. Also again noted is fluid extending between the teres minor and triceps muscles proximally and extending distally within the posterior compartment deep to the fascia surrounding and partially compressing the triceps muscles. The appearance is suspicious for subfascial abscess between the fascia and triceps muscles. This extends the length of the triceps muscles. This collection measures up to 1.6 cm anterior to posterior. Mild heterogeneous abnor mal signal and enhancement of the muscles compatible with myositis. There is generalized fluid signal in the subcutaneous soft tissues with partial enhancement compatible with a combination of edema and cellulitis throughout the upper arm. Osseous structures: Normal. No abnormal marrow signal. RIGHT UPPER EXTREMITY/FOREARM: As in the upper extremity there is feathery-appearing fluid- like signal noted throughout the forearm with partial enhancement compatible with a combination of edema and cellulitis. There is a lobulated fluid collection at least partially within the brachialradialis muscle and adjacent extensor muscles proximally beginning at the elbow joint and extending to the forearm over approximately 9 cm craniocaudal, 5 cm transverse and 1 cm AP. The collection appears to extend outside of the muscle deep to the fascia as it extends distally. There is heterogeneous enhancement of the noted muscles compatible with myositis. Remaining muscles of the forearm do not demonstrate any definite enhancement. Full evaluation is limited as we were unable to obtain T2-weighted sequences. No additional visible muscle collection noted. Osseous structures: There is possible ill-defined increased T2 signal in the olecranon which is not completely imaged throughout the examination in multiple planes Exam is significantly limited because of difficulties positioning the patient and patient movement.Diffuse generalized abnormality in the subcutaneous soft tissues throughout the right chest, upper arm and forearm compatible with a combination of edema and cellulitis and myositis. As seen on priorCT there are lobulated confluent fluid collections evolving multiple muscle groups and compartmentsas detailed above including the pectoralis major as well as extending distally within anterior and posterior compartment muscles and between the muscles and fascia in the upper arm consistent with and suspicious for abscesses along with myositis. In the proximal forearm anterolaterally there is a fluid collection at least partially within the brachial radialis and extensor muscles and between these muscles and overlying fascia suspicious for abscess along with adjacent myositis. Question abnormal increased T2 signal in the olecranon not completely assessed on this examination.. No bone erosion. Cannot exclude localized osteomyelitis. The remaining bones throughout the upper and lower extremity appear normal MRI Arm w w/o contrast-Upper right Result Date: 04/07/2025 EXAMINATION: MR UPPER EXTREMITY NON JOINT WITHOUT AND WITH CONTRAST, HUMERUS, RIGHT MRI OF THE UPPER EXTREMITY NONJOINT WITHOUT AND WITH CONTRAST FOREARM, RIGHT CLINICAL INFORMATION: Right arm abscess. COMPARISON: Multiple prior examinations most recent CT upper extremity exam April 07, 2025. TECHNIQUE: MRI of the right upper extremity/humerus was performed without and with contrast on a high-field MRI scanner. MRI of the right upper extremity/forearm was performed without and with contrast joy high-field MRI scanner. Contrast 7.5 mL of Magnevist contrast given intravenously during both portions of the exam. FINDINGS: Exam is significantly limited because of difficulties positioning the patient and patient movement. Additionally axial T2-weighted sequences of the forearm and axial T1-weighted sequences of the upper arm humerus could not be obtained. RIGHT UPPER EXTREMITY/HUMERUS: As noted on the CT examination again noted is a lobulated fluid collection extending along the deep surface of the pectoralis major muscle, coracobrachialis extending into the axilla with enhancement of the surrounding tissues. This is suspicious for an evolving abscess. The noted fluid collections above are continuous with the biceps muscle both within the muscle and surrounding the muscle deep to the fascia throughout the anterior compartment and extending the length of the upper extremity to the level of the proximal portion of the distal biceps tendon. Additional mild increased T2 signal and enhancement of the muscles compatible with generalized myositis. The fluid anterior to the anterior compartment deep to the fascia measures up to 1 cm. Also again noted is fluid extending between the teres minor and triceps muscles proximally and extending distally within the posterior compartment deep to the fascia surrounding and partially compressing the triceps muscles. The appearance is suspicious for subfascial abscess between the fascia and triceps muscles. This extends the length of the triceps muscles. This collection measures up to 1.6 cm anterior to posterior. Mild heterogeneous abnor mal signal and enhancement of the muscles compatible with myositis. There is generalized fluid signal in the subcutaneous soft tissues with partial enhancement compatible with a combination of edema and cellulitis throughout the upper arm. Osseous structures: Normal. No abnormal marrow signal. RIGHT UPPER EXTREMITY/FOREARM: As in the upper extremity there is feathery-appearing fluid- like signal noted throughout the forearm with partial enhancement compatible with a combination of edema and cellulitis. There is a lobulated fluid collection at least partially within the brachialradialis muscle and adjacent extensor muscles proximally beginning at the elbow joint and extending to the forearm over approximately 9 cm craniocaudal, 5 cm transverse and 1 cm AP. The collection appears to extend outside of the muscle deep to the fascia as it extends distally. There is heterogeneous enhancement of the noted muscles compatible with myositis. Remaining muscles of the forearm do not demonstrate any definite enhancement. Full evaluation is limited as we were unable to obtain T2-weighted sequences. No additional visible muscle collection noted. Osseous structures: There is possible ill-defined increased T2 signal in the olecranon which is not completely imaged throughout the examination in multiple planes Exam is significantly limited because of difficulties positioning the patient and patient movement.Diffuse generalized abnormality in the subcutaneous soft tissues throughout the right chest, upper arm and forearm compatible with a combination of edema and cellulitis and myositis. As seen on priorCT there are lobulated confluent fluid collections evolving multiple muscle groups and compartmentsas detailed above including the pectoralis major as well as extending distally within anterior and posterior compartment muscles and between the muscles and fascia in the upper arm consistent with and suspicious for abscesses along with myositis. In the proximal forearm anterolaterally there is a fluid collection at least partially within the brachial radialis and extensor muscles and between these muscles and overlying fascia suspicious for abscess along with adjacent myositis. Question abnormal increased T2 signal in the olecranon not completely assessed on this examination.. No bone erosion. Cannot exclude localized osteomyelitis. The remaining bones throughout the upper and lower extremity appear normal CT Upper extremity with contrast-Left Addendum Date: 04/07/2025 Result Date: 04/07/2025 EXAMINATION: CT left upper extremity without contrast CLINICAL INFORMATION: Abscess evaluation COMPARISON: MRI left humerus dated same day TECHNIQUE: Multiple axial CT images of the left upper extremity are acquired without contrast. Sagittal and coronal reconstructions are provided. 75 mL Omnipaque 300. DOSE LOWERING TECHNIQUES: This CT examination was performed using dose optimization techniques as appropriate, variously including the following: - Automated exposure control - Adjustment of mAand/or kV according to patient size (this includes techniques or standardized protocols for targeted exams where dose is matched to indication/reason for exam; i.e. extremities or head) - Use of iterative construction technique 1676.35 FINDINGS: Within the upper extremity, one appears deep to the biceps musculature there is a peripherally enhancing fluid collection originating approximately 10 cmproximal to the elbow joint and extending to the level of the elbow joint. At its distal aspect the fluid collection appears to extend to the subcutaneous soft tissues. No definite enhancing fluid collection distal to the subcutaneous component distal to the elbow joint. Diffuse subcutaneous soft tissue inflammation of the elbow and forearm. No acute osseous abnormality. Peripherally enhancing fluid collection within the upper extremity, approximately 10 cm proximal tothe elbow joint and extending to the level of the elbow joint. At its distal aspect the fluid collection appears to extend to the subcutaneous soft tissues. No definite enhancing fluid collection distal to the subcutaneous component distal to the elbow joint. Findings are concerning for abscess. CT Upper extremity with contrast-Right Result Date: 04/07/2025 EXAMINATION: CT UPPER EXTREMITY WITH CONTRAST, RIGHT CLINICAL INFORMATION: Concern for soft tissue infection of entire right upper extremity. COMPARISON: Outside CTA of the right upper extremity April 02, 2025. TECHNIQUE: CT scan of the right upper extremity was performed with contrast. Reconstruction imaging performed at the acquisition workstation. Contrast dose 80 mL of Omnipaque [address]. [address] examination was performed using dose optimization techniques as appropriate, variously including the o patient size (this includes techniques or standardized protocols for targeted exams where dose is matched to indication/reason for exam; i.e. extremities or head) *Use of iterative reconstruction technique DLP: 1068 mGy-cm FINDINGS The large [id number] and positioning limits evaluation. Subcutaneous soft tissues: There is feathery- appearing fluid-like density noted throughout including the right chest wall and into the right side of the abdomen, as well as circumferentially about the shoulder region, right upper extremity, right forearm and into the hand. No gas noted. MUSCLES/TENDONS: Right shoulder and chest region: There is ill-defined lobulated fluid extending within and along the superficial and deep surface of the pectoralis major and minor, coracobrachialis and teres major. In the upper arm, there is additional fluid extension and involvement of the anterior compartment muscles including the biceps, brachialis and brachioradialis along with the overlying subcutaneous soft tissues. There is also fluid extending along the outer aspect of the triceps muscles deep to the fascia the length of the muscle in the upper extremity. In the forearm and hand, there is no definite involvement of the muscles although there is extensive feathery-appearing fluid-like density in the subcutaneous soft tissues. The osseous structures are intact. The chest is also included in the examination. Numerous lymph nodes present within the axilla, likely reactive. There is consolidation in the right lower lobe and a right pleural effusion. 1. Extensive fluid-like density throughout the subcutaneous soft tissues of the right chest wall, right abdominal wall, right upper extremity and right forearm and hand. This is nonspecific but couldreflect edema, cellulitis or a combination of these. This appears to have progressed compared with outside imaging of the right upper extremity dating back to April 02, 2025. 2. There is fluid extending within and along the superficial and deep surface muscles and muscle groups in the right chest/chest wall and right upper extremity compatible with myositis and likely evolving phlegmon or abscesses which has progressed compared with prior outside imaging dating back to April 02, 2025. See details above. No definite involvement of the muscles in the forearm and hand 3. Right lower lobe consolidation and right pleural effusion. CT Extremity Left Archive for Reference Only Result Date: 04/07/2025 This study has been auto finalized and does not contain a result. CT Extremity Left Archive for Reference Only Result Date: 04/07/2025 This study has been auto finalized and does not contain a result. CR Extremity Right Archive for Reference only Result Date: 04/07/2025 This study has been auto finalized and does not contain a result. CT Extremity Right Archive for Reference Only Result Date: 04/07/2025 This study has been auto finalized and does not contain a result. CT Extremity Left Archive for Reference Only Result Date: 04/07/2025 This study has been auto finalized and does not contain a result. CT Extremity Right Archive for Reference Only Result Date: 04/07/2025 This study has been auto finalized and does not contain a result. CT Extremity Right Archive for Reference Only Result Date: 04/07/2025 This study has been auto finalized and does not contain a result. CR Chest Archive for Reference only Result Date: 04/07/2025 This study has been auto finalized and does not contain a result. ZEINAB Archive for reference only CT Result Date: 04/07/2025 This order has been auto-finalized and does not contain a result. ZEINAB Archive for reference only CT Result Date: 04/07/2025 This order has been auto-finalized and does not contain a result. CT Extremity Left Archive for Reference Only Result Date: 04/07/2025 This study has been auto finalized and does not contain a result. CT Extremity Left Archive for Reference Only Result Date: 04/07/2025 This study has been auto finalized and does not contain a result. CT Extremity Right Archive for Reference Only Result Date: 04/07/2025 This study has been auto finalized and does not contain a result. CR Chest Archive for Reference only Result Date: 04/07/2025 This study has been auto finalized and does not contain a result. CT Extremity Left Archive for Reference Only Result Date: 04/07/2025 This study has been auto finalized and does not contain a result. CT Extremity Right Archive for Reference Only Result Date: 04/07/2025 This study has been auto finalized and does not contain a result. CT Extremity Right Archive for Reference Only Result Date: 04/07/2025 This study has been auto finalized and does not contain a result. CR Extremity Right Archive for Reference only Result Date: 04/07/2025 This study has been auto finalized and does not contain a result. Current Medications: Current Medications[1] ALLERGIES: Allergies[2] I reviewed the prescribed Medications and new Laboratory Blood Work. Monitor for drug related adverse effects.>50 min spent in reviewing records, labs, imaging, coordination and formulation of plan of care I reviewed all new Imaging Studies (actual images) and compared to prior where applicable Of note, some information is being carried forward from prior records for informational purposes only and is being cited so that efficiency, safety and quality of this patient's care is not compromised This report was generated using [employer] dictation software. Although every attempt has been made by the provider to proofread this document, occasional misspellings and typographical errors Sign Anisa Perez MD, FIDSA, FACP [facility] Infectious Diseases Available via [employer] 04/10/2025 9:39 AM [1] Current Facility-Administered Medications Medication Dose Route Frequency Provider Last Rate Last Admin lactated ringers (LR) infusion 50 mL/hr Intravenous Continuous Luda Houser APRN 50 mL/hr at 04/10/25 0704 50 mL/hr at 04/10/25 0704 acetaminophen (TYLENOL) 160 mg/5 mL solution 975 mg 975 mg Feeding Tube Q6H [facility] Ani Brown APRN 975 mg at 04/10/25 0519 albuterol (PROVENTIL) (0.083%) 2.5 mg/3 mL nebulizer solution 2.5 mg 2.5 mg Nebulization Q6H PRN Ani Brown APRN baclofen (LIORESAL) tablet 10 mg 10 mg Feeding Tube Q8H [facility] Ani Brown APRN 10 mg at 04/10/25 0551 bisacodyl (DULCOLAX) suppository 10 mg 10 mg Rectal Daily PRN Ani Brown APRN 10 mg at 04/09/25 1129 chlorhexidine (PERIDEX) 0.12 % oral solution 15 mL 15 mL Mouth/Throat BID Ani Brown APRN 15 mL at 04/10/25 0840 chlorhexidine gluconate 2 % wipes - daily CHG application Topical Daily Ani Brown APRN 1 each at 04/08/25 0837 chlorhexidine gluconate 2 % wipes - daily CHG application Topical Daily Galdino Cunningham MD 1 eachat 04/09/25 2109 glucose (GLUTOSE 15) 40 % oral gel 37.5 g 1 Tube Oral Q15 Min PRN Ani Brown APRN Or glucose (GLUTOSE 15) 40 % oral gel 75 g 2 Tube Oral Q15 Min PRN Ani Brown APRN Or dextrose 50 % solution 12.5 g 12.5 g Intravenous Q15 Min PRN Ani Brown APRN 12.5 g at 04/09/25 1204 Or dextrose 50 % solution 25 g 25 g Intravenous Q15 Min PRN Ani Brown APRN Or glucagon (GLUCAGEN) injection 1 mg 1 mg Intramuscular Daily PRN Ani Brown APRN gabapentin (NEURONTIN) capsule 300 mg 300 mg Feeding Tube Q8H [facility] Ani Brown APRN 300 mg at 04/10/25 0551 heparin (porcine) 5000 unit/mL injection 5,000 Units 5,000 Units Subcutaneous Q8H [facility] Ani Brown APRN 5,000 Units at 04/10/25 0550 hydrALAZINE (APRESOLINE) injection 10 mg 10 mg Intravenous Q4H PRN Luda Houser APRN 10 mg at 04/10/25 0547 HYDROmorphone (DILAUDID) injection 1 mg 1 mg Intravenous Q1H PRN Ani Brown APRN 1 mg at 04/10/25 0920 HYDROmorphone (DILAUDID) IV infusion 50 mg in 50 mL NS (1 mg/mL) (premix) 1 mg/hr Intravenous Continuous Ani Brown APRN 1 mL/hr at 04/10/25 0700 1 mg/hr at 04/10/25 0700 insulin lispro (HumaLOG/ADMELOG) 100 units/mL injection 1-6 Units 1-6 Units Subcutaneous Q4H [facility] Sd Echevarria MD 1 Units at 04/10/25 0428 ketorolac (TORADOL) injection 15 mg 15 mg Intravenous Q8H PRN Ani Brown APRN linezolid (ZYVOX) IVPB 600 mg in 300 mL D5W (premix) 600 mg Intravenous Q12H Anisa Perez MD 300 mL/hr at 04/09/25 2310 600 mg at 04/09/25 2310 methadone (DOLOPHINE) tablet 130 mg 130 mg Feeding Tube Daily Ani Brown APRN 130 mg at 04/10/25 0839 naloxegol (MOVANTIK) tablet 25 mg 25 mg Oral Daily before breakfast Sd Echevarria MD 25 mg at 04/10/25 0840 naloxone (NARCAN) 0.4 mg/mL injection 0.4 mg 0.4 mg Intravenous Q5 Min PRN Ani Brown APRN ondansetron (ZOFRAN) injection 4 mg 4 mg Intravenous Q6H PRN Ani Brown APRN PANTOprazole (PROTONIX) injection 40 mg 40 mg Intravenous Daily Ani Brown APRN 40 mg at 04/10/25 0839 piperacillin-tazobactam (ZOSYN) 4.5 g in sodium chloride-MBP (NS) 100 mL IVPB- MBP 4.5 g MsaepafwgirT1D Ani Brown APRN 33.3 mL/hr at 04/10/25 0554 4.5 g at 04/10/25 0554 polyethylene glycol (miraLAx) packet 17 g 17 g Feeding Tube Daily Ani Brown BABYSITTER 17 g at 04/10/25 0840 propofol (diPRIvan) 1000 MG/100ML injection 5-75 mcg/kg/min Intravenous Titrated Ani Brown BABYSITTER 22.1 mL/hr at 04/10/25 0700 50 mcg/kg/min at 04/10/25 0700 propofol (diPRIvan) IV bolus from bottle via smart pump 10 mg 10 mg Intravenous Q5 Min PRN Ani BrownANDREINA 10 mg at 04/09/25 1840 propofol (diPRIvan) IV bolus from bottle via smart pump 20 mg 20 mg Intravenous Q5 Min PRN Ani BrownANDREINA 20 mg at 04/09/25 0341 senna-docusate (SENNA-S) 8.6-50 MG tablet 2 tablet 2 tablet Feeding Tube BID Ani Brown APRN 2 tablet at 04/10/25 0839 [2] No Known Allergies * David Jules MD - 04/10/2025 9:27 AM EDT Daily General Surgery Progress Note Assessment & Plan Molly Beasley is a 34 y.o. female with history of IVDU, anxiety, and depression who presented withRUE pain and swelling. She had an I&D of the RUE at an OSH which was closed with suture. On exam, she had significant erythema and induration that extended from the right elbow proximally. CT wasdone and showed fluid collection tracking from RUE to right chest. Patient has had multiple debridements of right upper, left upper extremities on 04/07, 04/08, and subsequent right chest wall debridement through a sternal incision 04/09. Patient has required 2 units PRBC since procedure 04/09 for decreasing hemoglobin which was 7.2 this morning. Her RUE has strikethrough of blood through the Omid wrap, heart rate remains 92 and maps in the 80s. Her WBC increased to 30 today, from 17. Patient will undergo another block in OR today to assess for any more necrotic tissue and/or abscess. We appreciate infectious disease input for tailoring antibiotics. We still need to obtain an echo to assess any cardiac vegetations given her history of UTE. Plan - Echo today - Plan for OR debridement 04/10 - Will need discussion with patient about goals of care given her complicated case, once she is extubated and awake. - abx: zosyn, linezolid. Continue Zosyn until no GNR at 3 day update from cultures. 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 Surgery team notified yesterday 6:42 PM about bleeding from her arm, please see note for further details. She currently remains intubated on SIMV. Her second unit PRBC transfusing during assessment. Her RDE had strikethrough of blood through Omid wrap. Objective Last Vitals Pulse:87,Resp:15,BP:(!) 161/68,SpO2:100 %,Weight:75.2 kg (165 lb 12.6 oz) Temp Last 24 hrs: Temp Min: 95.9 ??F (35.5 ??C) Max: 100 ??F (37.8 ??C) Last temp: 99 ??F (37.2 ??C) (Esophageal) Intake/Output Summary (Last 24 hours) at 04/10/2025 1182 Last data filed at 04/10/2025 0708 Gross per 24 hour Intake 7273.42 ml Output 2980 ml Net 4293.42 ml Physical Exam Gen: Intubated sedated Card: regular rate Pulm: Intubated on SIMV Right extremity: Omid wrap in place with strikethrough along the posterior aspect of the proximal arm. There is 2+ radial pulse,<2sec cap refill. Grimaces with manipulation. Left extremity: surgical dressing in place. No drainage on dressing. Grimaces to palpation of the left bicep. Skin: warm and dry VTE Time Out IMPROVE SCORE: 0 (04/06/2025 10:21 PM) Interpretation - Low Risk Chemical Prophylaxis heparin (porcine) 5000 unit/mL injection 5,000 Units Subcutaneous Every 8 hours scheduled Heparin Sodium (Porcine) 5000 Units Last dose 04/10/2025 5:50 AM Mechanical Prophylaxis SCDs are ordered - Bilateral (Knee High) Labs: White Blood Cell Count Date Value Ref Range Status 04/10/2025 30.3 (HH) 4.0 - 11.0 Thou/uL Final Comment: Results verified by smear review. Hemoglobin Date Value Ref Range Status 04/10/2025 7.2 (L) 11.7 - 15.7 g/dL Final Hematocrit Date Value Ref Range Status 04/10/2025 21.7 (L) 35.0 - 47.0 % Final Platelet Count Date Value Ref Range Status 04/10/2025 412 150 - 450 Thou/uL Final Lab Results Component Value Date NA 136 04/10/2025 K 4.3 04/10/2025 CL 102 04/10/2025 CO2 25 04/10/2025 BUN 9 04/10/2025 CREAT 0.54 04/10/2025 GLUC 137 (H) 04/10/2025 GLUC 205 (H) 04/10/2025 Lab Results Component Value Date CALCIUM 7.5 (L) 04/10/2025 MG 1.9 04/10/2025 PHOS 5.3 (H) 04/10/2025 No results found for: AST , ALT , ALKPHOS , BILITOT , BILIDIR , ALBUMIN , PROT No results found for: AMYLASE , LIPASE No results found for: PTT , LABPROT , INR Imaging Studies XR Chest 1 view-Portable Result Date: 04/08/2025 EXAMINATION: XR CHEST CLINICAL INFORMATION: Confirmation of IJ COMPARISON: Chest radiograph 04/02/2025 TECHNIQUE: Frontal view of the chest was obtained. FINDINGS: Right IJ CVC projects over the cavoatrial junction. Lungs are hypoexpanded. Asymmetric elevation of the right hemidiaphragm. Subsegmental atelectasis in the right lung base. No focal consolidation. Mild blunting of the right costophrenic sulcus. Cardiomediastinal silhouette is similar to prior. No acute osseous findings. 1. Right IJ CVC projects over the cavoatrial junction. No postprocedural pneumothorax. 2. Subsegmental atelectasis in the right lung base. 3. Possible trace right pleural effusion. Interpreted by: Emilee Casas MD Natural [employer] Engineer I personally reviewed the images and the resident's preliminaryreport and AGREE with the report as it is now presented ([id number]). MRI Arm w w/o contrast-Lower right Result Date: 04/07/2025 EXAMINATION: MR UPPER EXTREMITY NON JOINT WITHOUT AND WITH CONTRAST, HUMERUS, RIGHT MRI OF THE UPPER EXTREMITY NONJOINT WITHOUT AND WITH CONTRAST FOREARM, RIGHT CLINICAL INFORMATION: Right arm abscess. COMPARISON: Multiple prior examinations most recent CT upper extremity exam April 07, 2025. TECHNIQUE: MRI of the right upper extremity/humerus was performed without and with contrast on a high-field MRI scanner. MRI of the right upper extremity/forearm was performed without and with contrast joy high-field MRI scanner. Contrast 7.5 mL of Magnevist contrast given intravenously during both portions of the exam. FINDINGS: Exam is significantly limited because of difficulties positioning the patient and patient movement. Additionally axial T2-weighted sequences of the forearm and axial T1-weighted sequences of the upper arm humerus could not be obtained. RIGHT UPPER EXTREMITY/HUMERUS: As noted on the CT examination again noted is a lobulated fluid collection extending along the deep surface of the pectoralis major muscle, coracobrachialis extending into the axilla with enhancement of the surrounding tissues. This is suspicious for an evolving abscess. The noted fluid collections above are continuous with the biceps muscle both within the muscle and surrounding the muscle deep to the fascia throughout the anterior compartment and extending the length of the upper extremity to the level of the proximal portion of the distal biceps tendon. Additional mild increased T2 signal and enhancement of the muscles compatible with generalized myositis. The fluid anterior to the anterior compartment deep to the fascia measures up to 1 cm. Also again noted is fluid extending between the teres minor and triceps muscles proximally and extending distally within the posterior compartment deep to the fascia surrounding and partially compressing the triceps muscles. The appearance is suspicious for subfascial abscess between the fascia and triceps muscles. This extends the length of the triceps muscles. This collection measures up to 1.6 cm anterior to posterior. Mild heterogeneous abnor mal signal and enhancement of the muscles compatible with myositis. There is generalized fluid signal in the subcutaneous soft tissues with partial enhancement compatible with a combination of edema and cellulitis throughout the upper arm. Osseous structures: Normal. No abnormal marrow signal. RIGHT UPPER EXTREMITY/FOREARM: As in the upper extremity there is feathery-appearing fluid- like signal noted throughout the forearm with partial enhancement compatible with a combination of edema and cellulitis. There is a lobulated fluid collection at least partially within the brachialradialis muscle and adjacent extensor muscles proximally beginning at the elbow joint and extending to the forearm over approximately 9 cm craniocaudal, 5 cm transverse and 1 cm AP. The collection appears to extend outside of the muscle deep to the fascia as it extends distally. There is heterogeneous enhancement of the noted muscles compatible with myositis. Remaining muscles of the forearm do not demonstrate any definite enhancement. Full evaluation is limited as we were unable to obtain T2-weighted sequences. No additional visible muscle collection noted. Osseous structures: There is possible ill-defined increased T2 signal in the olecranon which is not completely imaged throughout the examination in multiple planes Exam is significantly limited because of difficulties positioning the patient and patient movement.Diffuse generalized abnormality in the subcutaneous soft tissues throughout the right chest, upper arm and forearm compatible with a combination of edema and cellulitis and myositis. As seen on priorCT there are lobulated confluent fluid collections evolving multiple muscle groups and compartmentsas detailed above including the pectoralis major as well as extending distally within anterior and posterior compartment muscles and between the muscles and fascia in the upper arm consistent with and suspicious for abscesses along with myositis. In the proximal forearm anterolaterally there is a fluid collection at least partially within the brachial radialis and extensor muscles and between these muscles and overlying fascia suspicious for abscess along with adjacent myositis. Question abnormal increased T2 signal in the olecranon not completely assessed on this examination.. No bone erosion. Cannot exclude localized osteomyelitis. The remaining bones throughout the upper and lower extremity appear normal MRI Arm w w/o contrast-Upper right Result Date: 04/07/2025 EXAMINATION: MR UPPER EXTREMITY NON JOINT WITHOUT AND WITH CONTRAST, HUMERUS, RIGHT MRI OF THE UPPER EXTREMITY NONJOINT WITHOUT AND WITH CONTRAST FOREARM, RIGHT CLINICAL INFORMATION: Right arm abscess. COMPARISON: Multiple prior examinations most recent CT upper extremity exam April 07, 2025. TECHNIQUE: MRI of the right upper extremity/humerus was performed without and with contrast on a high-field MRI scanner. MRI of the right upper extremity/forearm was performed without and with contrast joy high-field MRI scanner. Contrast 7.5 mL of Magnevist contrast given intravenously during both portions of the exam. FINDINGS: Exam is significantly limited because of difficulties positioning the patient and patient movement. Additionally axial T2-weighted sequences of the forearm and axial T1-weighted sequences of the upper arm humerus could not be obtained. RIGHT UPPER EXTREMITY/HUMERUS: As noted on the CT examination again noted is a lobulated fluid collection extending along the deep surface of the pectoralis major muscle, coracobrachialis extending into the axilla with enhancement of the surrounding tissues. This is suspicious for an evolving abscess. The noted fluid collections above are continuous with the biceps muscle both within the muscle and surrounding the muscle deep to the fascia throughout the anterior compartment and extending the length of the upper extremity to the level of the proximal portion of the distal biceps tendon. Additional mild increased T2 signal and enhancement of the muscles compatible with generalized myositis. The fluid anterior to the anterior compartment deep to the fascia measures up to 1 cm. Also again noted is fluid extending between the teres minor and triceps muscles proximally and extending distally within the posterior compartment deep to the fascia surrounding and partially compressing the triceps muscles. The appearance is suspicious for subfascial abscess between the fascia and triceps muscles. This extends the length of the triceps muscles. This collection measures up to 1.6 cm anterior to posterior. Mild heterogeneous abnor mal signal and enhancement of the muscles compatible with myositis. There is generalized fluid signal in the subcutaneous soft tissues with partial enhancement compatible with a combination of edema and cellulitis throughout the upper arm. Osseous structures: Normal. No abnormal marrow signal. RIGHT UPPER EXTREMITY/FOREARM: As in the upper extremity there is feathery-appearing fluid- like signal noted throughout the forearm with partial enhancement compatible with a combination of edema and cellulitis. There is a lobulated fluid collection at least partially within the brachialradialis muscle and adjacent extensor muscles proximally beginning at the elbow joint and extending to the forearm over approximately 9 cm craniocaudal, 5 cm transverse and 1 cm AP. The collection appears to extend outside of the muscle deep to the fascia as it extends distally. There is heterogeneous enhancement of the noted muscles compatible with myositis. Remaining muscles of the forearm do not demonstrate any definite enhancement. Full evaluation is limited as we were unable to obtain T2-weighted sequences. No additional visible muscle collection noted. Osseous structures: There is possible ill-defined increased T2 signal in the olecranon which is not completely imaged throughout the examination in multiple planes Exam is significantly limited because of difficulties positioning the patient and patient movement.Diffuse generalized abnormality in the subcutaneous soft tissues throughout the right chest, upper arm and forearm compatible with a combination of edema and cellulitis and myositis. As seen on priorCT there are lobulated confluent fluid collections evolving multiple muscle groups and compartmentsas detailed above including the pectoralis major as well as extending distally within anterior and posterior compartment muscles and between the muscles and fascia in the upper arm consistent with and suspicious for abscesses along with myositis. In the proximal forearm anterolaterally there is a fluid collection at least partially within the brachial radialis and extensor muscles and between these muscles and overlying fascia suspicious for abscess along with adjacent myositis. Question abnormal increased T2 signal in the olecranon not completely assessed on this examination.. No bone erosion. Cannot exclude localized osteomyelitis. The remaining bones throughout the upper and lower extremity appear normal CT Upper extremity with contrast-Left Addendum Date: 04/07/2025 ADDENDUM #1 Addendum: Reactive left axillary lymph nodes. Result Date: 04/07/2025 EXAMINATION: CT left upper extremity without contrast CLINICAL INFORMATION: Abscess evaluation COMPARISON: MRI left humerus dated same day TECHNIQUE: Multiple axial CT images of the left upper extremity are acquired without contrast. Sagittal and coronal reconstructions are provided. 75 mL Omnipaque 300. DOSE LOWERING TECHNIQUES: This CT examination was performed using dose optimization techniques as appropriate, variously including the following: - Automated exposure control - Adjustment of mAand/or kV according to patient size (this includes techniques or standardized protocols for targeted exams where dose is matched to indication/reason for exam; i.e. extremities or head) - Use of iterative construction technique 1676.35 FINDINGS: Within the upper extremity, one appears deep to the biceps musculature there is a peripherally enhancing fluid collection originating approximately 10 cmproximal to the elbow joint and extending to the level of the elbow joint. At its distal aspect the fluid collection appears to extend to the subcutaneous soft tissues. No definite enhancing fluid collection distal to the subcutaneous component distal to the elbow joint. Diffuse subcutaneous soft tissue inflammation of the elbow and forearm. No acute osseous abnormality. Peripherally enhancing fluid collection within the upper extremity, approximately 10 cm proximal tothe elbow joint and extending to the level of the elbow joint. At its distal aspect the fluid collection appears to extend to the subcutaneous soft tissues. No definite enhancing fluid collection distal to the subcutaneous component distal to the elbow joint. Findings are concerning for abscess. CT Upper extremity with contrast-Right Result Date: 04/07/2025 EXAMINATION: CT UPPER EXTREMITY WITH CONTRAST, RIGHT CLINICAL INFORMATION: Concern for soft tissue infection of entire right upper extremity. COMPARISON: Outside CTA of the right upper extremity April 02, 2025. TECHNIQUE: CT scan of the right upper extremity was performed with contrast. Reconstruction imaging performed at the acquisition workstation. Contrast dose 80 mL of Omnipaque [address] examination was performed using dose optimization techniques as appropriate, variously including the following: *Automated exposure control *Adjustment of mA and/or kV according to patient size (this includes techniques or standardized protocols for targeted exams where dose is m atched to indication/reason for exam; i.e. extremities or head) *Use of iterative reconstruction technique DLP: 1068 mGy-cm FINDINGS The large [id number]-cpbs and positioning limits evaluation. Subcutaneous soft tissues: There is feathery-appearing fluid-like density noted throughout including the right chest wall and into the right side of the abdomen, as well as circumferentially about the shoulder region, right upper extremity, right forearm and into the hand. No gas noted. MUSCLES/TENDONS: Right shoulder and chest region: There is ill-defined lobulated fluid extending within and along the superficial and deep surface of the pectoralis major and minor, coracobrachialis and teres major. In the upper arm, there is additional fluid extension and involvement of the anterior compartment muscles including the biceps, brachialis and brachioradialis along with the overlying subcutaneous soft tissues. There is also fluid extending along the outer aspect of the triceps muscles deep to the fascia the length of the muscle in the upper extremity. In the forearm and hand, there is no definite involvement of the muscles although there is extensive feathery-appearing fluid-like density in the subcutaneous soft tissues. The osseous structures are intact. The chest is also included in the examination. Numerous lymph nodes present within the axilla, likely reactive. There is consolidation in the right lower lobe and a right pleural effusion. 1. Extensive fluid-like density throughout the subcutaneous soft tissues of the right chest wall, right abdominal wall, right upper extremity and right forearm and hand. This is nonspecific but couldreflect edema, cellulitis or a combination of these. This appears to have progressed compared with outside imaging of the right upper extremity dating back to April 02, 2025. 2. There is fluid extending within and along the superficial and deep surface muscles and muscle groups in the right chest/chest wall and right upper extremity compatible with myositis and likely evolving phlegmon or abscesses which has progressed compared with prior outside imaging dating back to April 02, 2025. See details above. No definite involvement of the muscles in the forearm and hand 3. Right lower lobe consolidation and right pleural effusion. Electronically Signed David Jules MD General Surgery, PGY-2 04/10/2025 9:27 AM Cosigned by Lucho Donaldson MD at 04/10/2025 2:04 PM EDT * Joseph Campbell Jr., MD - 04/10/2025 6:39 AM EDT [facility] CRITICAL CARE PROGRESS NOTE Shift: 6:00pm-8:00am ICU Attending: Dr. Yarbrough Assessment & Plan The patient remains critically ill/injured and/or remains at high risk for life threatening complications due to: Assessment and Plan reviewed in detail and updated if indicated. Any changes made to plan are reflected below. Unchanged diagnoses remain relevant Neurological Acute post-operative pain OUD Active IV cocaine use - Dilaudid infusion 1 mg/h + 1mg IV Q1H PRN - Propofol gtt + 20 mg Q5min PRN - Add ketamine infusion for further analgesia - Add Clonidine 0.1 mg BID - Continue Tylenol 975mg ngt Q6H scheduled - Continue Toradol 15mg IV Q8H scheduled x 15 doses - Received Methadone 130mg ngt dose this AM (confirmed home maintenance dose), will spread out to 50 mg TID starting at 8 pm tonight for more pain management in setting of multiple surgeries - Methadone clinic: [facility]) - Continue Gabapentin 300mg ngt Q8H - Continue Baclofen 10mg ngt Q8H - COWS monitoring Q4H Cardiovascular MRSA bacteremia 04/10 TTE: LVEF 62%, small pericardial effusion, no echocardiographic evidence of endocarditis - MAP > 65 - Labetolol PRN for hypertension Respiratory Intubation for airway protection - Ventilator protocol - Wean supplemental O2 as tolerated for SpO2 goal > 92% - Propofol for ventilator tolerance - Albuterol Q6H prn for wheezing GI Constipation most likely due to opioid usage - NPO pending RTOR on 04/10 - NGT to suction - Protonix 40 mg every day - Bowel Regimen (dulcolax, zofran, miralax, senna) - Movantik 25mg Renal//Lytes ALIS - Daily BMP, Mag, Phos - Lynch Catheter in place, draining clear yellow urine - Strict Ins and Outs - Monitor Electrolytes and replete accordingly Extremities MRSA necrotizing soft tissue infection of right upper extremity Right upper extremity abscess Left upper extremity abscess antecubital fossa and synovitis in wrist 04/08: Debridement of RUE abscess extending to R shoulder and superficial tracts toward R chest/pectoralis major, washout, betadine soaked kerlix packing 04/09 CT Thorax, CT B/L upper extremity, CT soft tissue neck and Abdomen/pelvis w/ contrast: No evidence of extension of soft tissue infection or abscesses into neck, post-surgical changes in right anterior chest wall and RUE without organized collection, underlying intramuscular abscess cannot be excluded within right subpectoral area, small volume free fluid in abdomen/pelvis - ID consulted, appreciate recs - Wound team consulted - RUE dressing changes per surgery - Continue antibiotics per ID section - Per orthopaedics, advised to stay out of the glenohumeral joint; advised a posterior incision to drain triceps collection Heme Acute blood loss anemia - S/p 2U pRBC since last night - Most recent H/H 8.1/23.9 - Transfuse for H/H < 01/20 - Daily CBC or as otherwise clinically indicated Endocrine ALIS - Insulin Sliding Scale - POCT glucose q4h Infectious Disease Leukocytosis MRSA bacteremia (04/02) 04/07 Tissue Culture R arm: MRSA 04/09 BC: Sterile < 24 hours - Trend fever/WBC curve - Continue Linezolid 600 mg q12h (04/09- - Continue Zosyn 4.5 mg until OR cultures show no gram-negative rods at 3 days (04/08- - s/p Vancomycin 1250mg Q12H (04/07- 04/09) Abx Hx: - Ancef 04/07 - Outside hospital (Vanc/Zosyn 04/02 - ) - Clindamycin 900mg (04/08) VTE Time Out IMPROVE SCORE: 0 (04/06/2025 10:21 PM) Interpretation - Low Risk Chemical Prophylaxis heparin (porcine) 5000 unit/mL injection 5,000 Units Subcutaneous Every 8 hours scheduled Heparin Sodium (Porcine) 5000 Units Last dose 04/10/2025 1:13 PM Mechanical Prophylaxis SCDs are ordered - Bilateral (Knee High) STRESS ULCER PROPHYLAXIS: Protonix 40mg Indications: coag (plt <50k, INR >1.5 or PTT >2, vent >48 hours, recent GIB<1 yr, Severe TBI (GCS<8 or SCI), thermal calderón >35% BSA, hydrocortisone >250mg QD, pred 60, 10 decadron emt intermediate low dose ASA or plavix , therapeutic anticoagulation Restraints: bilateral soft wrist restraints in place to prevent inadvertent removal of necessary medical devices and to maintain patient safety, use reviewed today and remain medically necessary Lines/Devices: All invasive lines discussed during rounds and use reviewed 04/10/25. Central Line Present/Indication: Right internal jugular Lynch Present/Indication: Strict I&O ANTIBIOTIC TIME OUT Treatment Indication: Soft tissue infection Current antibiotic/day of therapy: Anti-infectives (From admission, onward) Start Dose/Rate Route Frequency Ordered Stop 04/09/25 1130 linezolid (ZYVOX) IVPB 600 mg in 300 mL D5W (premix) 600 mg 300 mL/hr over 60 Minutes Intravenous Every 12 hours 04/09/25 1122 04/07/25 1030 piperacillin-tazobactam (ZOSYN) 4.5 g in sodium chloride-MBP (NS) 100 mL IVPB-MBP 4.5 g 33.3 mL/hr over 3 Hours Intravenous Every 6 hours 04/07/25 1015 Oral antibiotic transition date: NA Anticipated Stop date: NA Supportive Microbiology: Staph Aureus, MRSA bacteremia Subjective PMH/PSH: IVDU (OUD on methadone), anxiety, depression Hospital Course: 34 y.o. female with history of IVDU, anxiety, and depression who presented with RUE pain and swelling. She had an I&D of the RUE at an OSH which was closed with suture. On exam, she had significant erythema and induration that extended from the right elbow proximally. CT was done and showed fluid collection tracking from RUE to right chest. 04/07 BUE I&D w/ evacuation of about 1L of purulent fluid. RTOR 04/08 for additional I&D with extension of incision to shoulder, and Pulsavac with 6L fluid, superficial tracts into pectoralis major identified and flushed as well.Post-op pt remained intubated [facility] BUE/chest/neck soft tissues obtained withplan for RTOR 04/09. Shift Events: - Added Ketamine gtt for analgesia - Added Clonidine 0.1 mg BID - Will transition Methadone from 130 mg daily to 50 mg TID to assist with pain management - To return to OR with EGS for further exploration/debridement sometime in the afternoon Objective/Physical Exam This note encompasses entire shift, physical exam completed at: 0700 Vitals: Pulse:88, Resp:14, BP:BP Min: 123/57 Max: 188/81 MAP: SpO2:99 % CVP: Temp Last 24 hrs: TempMin: 95.9 ??F (35.5 ??C) Max: 100 ??F (37.8 ??C) Temp: [95.9 ??F (35.5 ??C)-100 ??F (37.8 ??C)] 98.6 ??F (37 ??C) Pulse: [60-102] 88 Resp: [4-32] 14 BP: (123-199)/(57-146) 188/81 Neuro/HEENT: Sedated Opens eyes to voice, tracks; does not nod head to questions, unable to follow to move extremities due to sedation Behavioral/Sedation scales: CAM-ICU Delirium Present: Positive Salmon Agitation Sedation Scale (RASS) / Modified RASS: -2-->Wakes slowly, very drowsy/light sedation Cardiac: RRR, S1/S2, no murmur Telemetry reviewed for past 24h and shows: NSR QTc: 465 Extremities: Bilateral upper extremities wrapped and bandaged. RUE with bulky dressing over betadine-soaked kerlix, motor and sensory intact, 2+edema of fingers Left hand moderate edema, slight erythema Bilateral lower extremities without open wounds. Right LE with blood pressure cuff. Left LE with SCD in place. Pulmonary: Intubated, ETT, CTAB Gastrointestinal: NGT present. Soft, nontender, bowel sounds auscultated : Urinary catheter Skin/Wound: see extremities Data/Lab Values DRIPS/MEDICATIONS lactated ringers, 50 mL/hr, Last Rate: 50 mL/hr (04/10/251199) HYDROmorphone, 1 mg/hr, Last Rate: 1 mg/hr (04/10/251199) ketamine, 5 mcg/kg/min, Last Rate: 5 mcg/kg/min (04/10/251199) propofol, 5-75 mcg/kg/min, Last Rate: 50 mcg/kg/min (04/10/251199) CV: Temp: [95.9 ??F (35.5 ??C)-100 ??F (37.8 ??C)] 98.6 ??F (37 ??C) Pulse: [60-102] 88 Resp: [4-32] 14 BP: (123-199)/(57-146) 188/81 Recent Labs 04/08/25 2115 04/09/25 0324 04/09/25 1025 04/09/25 1720 04/09/252128 CKTOTAL 138 97 91 262* 123 Recent Labs 04/09/25 1025 04/09/25 1720 04/09/252128 CKTOTAL 91 262* 123 PULM: RR: 14,SpO2:99 % Ventilation Mode (Drager): VC-SIMV (invasive) Rate Set (breaths/min) (Drager): 12 Tidal Volume Set (mL) (Drager): 400 Oxygen Concentration (%) (Drager): 40 PEEP (cmH2O) (Drager): 8 Pressure Support (cmH2O) (Drager): 5 ABG: No results for input(s): PHA , PCO2 , PO2 , HCO3 in the last 72 hours. GI/NUTRITION: Diet, Tube Feeding, No Tray Continuous; NG Tube; Promote with Fiber; 20 mL; 20 mL/hr; NPO No results for input(s): AST , ALT , ALKPHOS , BILITOT , BILIDIR , ALBUMIN , PROT in the last 72 hours. No results for input(s): LIPASE in the last 72 hours. No results for input(s): ALBUMIN , PREALBUMIN , TRF in the last 72 hours. Recent Labs 04/08/255 TRIG 234* RENAL: I/O this shift: In: 1219.9 [I.V.:429.9; Blood:300; NG/GT:90; IV Piggyback:400] Out: 490 [Urine:490] Intake/Output Summary (Last 24 hours) at 04/10/2025 1314 Last data filed at 04/10/2025 1200 Gross per 24 hour Intake 7260.95 ml Output 2940 ml Net 4320.95 ml Recent Labs 04/08/25 0530 04/08/25 2115 04/09/25 0324 04/09/25 1221 04/09/25 1720 04/10/25 0006 NA 140 138 141 145 136 136 K 3.7 3.6 3.4 3.8 3.9 4.3 CO2 31 26 29 29 26 25 CL 101 102 105 105 104 102 BUN 10 10 10 9 7* 9 CREAT 0.51 0.58 0.66 0.63 0.58 0.54 CALCIUM 7.0* 7.1* 7.4* 7.5* 8.7 7.5* MG 2.1 2.1 2.1 1.9 1.7 1.9 PHOS 3.5 3.5 3.7 3.7 5.2* 5.3* Calcium, Ionized Date Value Ref Range Status 04/10/2025 1.11 (L) 1.17 - 1.33 mmol/L Final Recent Labs 04/08/25211404/09/25 1720 LACTIC 1.1 1.4 HEME: Recent Labs 04/08/25 0530 04/08/25 2115 04/09/25 0324 04/09/25 1221 04/09/25 1720 04/10/25 0006 04/10/25 0914 HCT 25.1* 22.4* 21.7* 22.4* 26.6* 21.7* 23.9* HGB 8.0* 7.2* 7.0* 7.2* 8.3* 7.2* 8.1* WBC 15.0* 9.4 12.3* 12.4* 17.1* 30.3* 20.8* PLT 392 390 418 447 411 412 402 No results for input(s): PT , PTT , INR in the last 72 hours. No results for input(s): ANTIXA in the last 72 hours. ID: Temp Min: 95.9 ??F (35.5 ??C) Max: 100 ??F (37.8 ??C) Recent Labs 04/09/25 1720 04/10/25 0006 04/10/25 0914 WBC 17.1* 30.3* 20.8* No results for input(s): GLUCCSF , PROTCSF , WBCCSF , RBCCSF , LACTATECSF in the last 72 hours. Cultures: See micro in EPIC ENDOCRINE: Results from last 7 days Lab Units 04/10/25 1202 04/10/25 0801 04/10/25 0410 04/10/25 0025 04/10/25 0022 04/10/25 0006 04/09/252004 GLUCOSE mg/dL -- -- -- -- -- 205* -- GLUCOSE, POC mg/dL 124* 137* 150* 244* 240* -- 111* Lab Results Component Value Date HGBA1C 5.3 04/10/2025 Relevant data reviewed: I have reviewed all past medical history, all past surgical history, allergies, home medications, and inpatient data since admission. Imaging Studies: All interval imaging reviewed. CXR Report reviewed KUB Report reviewed Family Update: No family present at bedside at time of exam. Critical Care time spent in multiple visits throughout the day for collaboration/coordination of care exclusive of time spent performing separately billable medical procedures is 60 minutes. Patient seen and examined. Chart and clinical information reviewed. Previous notes and lab data reviewed. Case discussed with ICU attending, ICU team, primary team, available consultants and the patient's family when available. Of note, some information is being carried forward from prior records for informational purposes only and is being cited so that efficiency, safety and quality of this patient's care is not compromised. Activities included: Chart/data review, Documentation, Medication orders/management, Interpreting/reviewing radiologic studies, Vital sign assessments, and Interpreting/reviewing lab tests Plan of care reviewed with ICU attending and in agreement with above. Signature Joseph Campbell Jr., MD 1:14 PM 04/10/2025 Cosigned by Sophia Yarbrough MD at 04/10/2025 3:14 PM EDT Associated attestation - Sophia Yarbrough MD - 04/10/2025 3:14 PM EDT I have personally interviewed and examined the patient and reviewed Dr. Adrian GUTIÉRREZ 's note. I agree with the history, exam, assessment and plan as detailed in resident's note with the following additions/exceptions/observations Increase methadone dose and split into thrice-daily administration. Initiate and Continue ketamine infusion to facilitate weaning of Dilaudid infusion. Maintain multimodal analgesia adjuncts. Add clonidine for adjunctive analgesia and opioid-sparing effect. Wean ventilator support as tolerated; consider extubation once daily wound debridement in the OR isno longer required. Continue nasoenteric tube feeding at goal rate. Maintain an aggressive bowel regimen. Wound care per primary surgical team. Continue linezolid and piperacillin-tazobactam (Zosyn) per ID recommendations. Trend hemoglobin and hematocrit; transfuse for hemoglobin <7 g/dL. Continue maintenance IV fluids at 50 mL/hr. The patient remains critically ill/injured and/or remains at high risk for life threatening complications due to: Acute hypoxic respiratory failure Acute on chronic pain syndrome Hypertension MRSA necrotizing soft tissue infection of the right upper extremity and left upper extremity Acute blood loss anemia MRSA bacteremia Subjective Patient examined and chart reviewed on Rounds and on multiple occasions throughout the day, including PMH, PSH, FH, SH, ROS, medications and allergies, as noted previously in the chart. Physical findings and lab work confirmed by my exam. Plan discussed and agreed upon with team. See ICU Resident note for details. See flow sheet. Activities included: Chart/data review, Documentation, Medication orders/management, Titration of medications, Collaborating with consultants, Care, transfer of care and discharge plans, Nutritional support, Interpreting/reviewing radiologic studies, Reviewing RN notes/previous records, Ventilator management, Vital sign assessments, and Interpreting/reviewing lab tests Critical Care Time Spent: 40 minutes (Exclusive of time spent on procedures) Sign: Sophia Yarbrough MD SICU Attending Staff Department of Anesthesiology and Surgical Critical Care * Edmond Marion, DO - 04/10/2025 12:51 AM EDT Surgery Post Operative Check Principal Problem: Hand abscess (POA: Yes) Active Problems: Abscess of arm, right (POA: Unknown) Abscess of left arm (POA: Unknown) Lung nodule (POA: Unknown) MRSA bacteremia (POA: Unknown) Infection of wound due to methicillin resistant Staphylococcus aureus (MRSA) (POA: Unknown) 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) IV drug user (POA: Unknown) Difficult intravenous access (POA: Unknown) ADHD (POA: Unknown) Resolved Problems: Procedures: Surgical/Procedural Cases on this Admission Case IDs Date Procedure Surgeon Location Status [id number] 04/07/25 INCISION & DRAINAGE AND DEBRIDEMENT UPPER EXTREMITY Db Lynn MD [facility] OR Comp [id number] 04/08/25 INCISION & DRAINAGE Galdino Cunningham MD [facility] OR Comp [id number] 04/09/25 DEBRIDEMENT UPPER EXTREMITY AND CHEST Db Lynn MD [facility] OR Comp [id number] 04/10/25 DEBRIDEMENT WOUND RIGHT UPPER EXTREMITY, LEFT UPPER EXTREMITY, RIGHT CHEST WALL Shaila Solorio MD [facility] OR [facility] Assessment & Plan 34 y.o. female s/p debridement of bilateral upper extremities and R chest wall. Postoperatively, the RUE dressing has been soaked with blood. It has been changed by both the EGS team and ICU team. She has been given 1 pRBC. Her vitals are stable. Plan: - Care per ICU team - Dressing changes as needed - Continue monitoring H&H Subjective Patient is intubated and sedated. Objective Last Vitals Pulse:99,Resp:(!) 21,BP:133/61,SpO2:99 %,Weight:78.8 kg (173 lb 11.6 oz) Temp Last 24 hrs: Temp Min: 95.9 ??F (35.5 ??C) Max: 100 ??F (37.8 ??C) I/O this shift: In: 1573.3 [I.V.:633.3; Blood:300; NG/GT:140; IV Piggyback:500] Out: 405 [Urine:405] Physical Exam General: sedated Head: normocephalic, atraumatic Eyes: no conjunctival injection or scleral icterus Cardiac: regular rate Respiratory: intubated Musculoskeletal: moving all limbs spontaneously Skin: RUE omid wrap saturated in blood posteriorly near axilla, LUE dressing dry, chest dressing lightly saturated Neuro: alert, awake, responding appropriately Edmond Marion DO General Surgery PGY-1 04/10/2025 12:52 AM * Db Lynn MD - 04/09/2025 2:43 PM EDT Surgical Attending Note: The pt is awaiting OR for operative redebridement of a RUE and chest wall NSTI/ LUE abscess. Consent is unable to be obtained at this time. This is an immediately life and limb threatening disease process and 3rd look incision/drainage/debridement is potentially life saving. We will make the case a stat red and proceed to the OR immediately. Db Lynn MD * Anisa Perez MD - 04/09/2025 11:17 AM EDT Images from the original note were not included. [facility] Name: Molly Beasley Age: 34 y.o. Sex: female ASSESSMENT & PLAN Assessment: 34-year-old female with history of active IV drug use, history of xylazine infection, depression, anxiety, transferred to [facility] from OSH on 04/06 for concern of right upper extremity abscess. Patient initially presented to OSH on 04/02 with redness/swelling of the right upper extremity in the setting of active IV cocaine use, underwent formal I&D on 04/05 of the right antecubital fossa. Repeat imaging of the forearm on 04/06 at OSH demonstrated developing abscess within the biceps muscle with concern for possible necrotizing fasciitis without soft tissue gas. CT scan of the left forearm demonstrated partially visualized abscess in the antecubital fossa and synovitis in the wrist. At OSH, 2 /2 blood cultures came back positive number of MRSA on 04/02. At [facility], patient was febrile 200.6, currently on vancomycin, evaluated by orthopedics and general surgery. IDwas consulted on 04/07 1. Right upper extremity abscess in the setting of active IV drug use, s/p s/p right upper extremity I&D on 04/07, when copious amounts of purulent fluid in the biceps muscle was noted, cultures are growing Staph aureus -On 04/08, patient went to the OR with general surgery at which time the prior incision to the right arm was extended to his the shoulder with copious purulence with a small track running to the chest which was evacuated as well , 1 notes reviewed which showed evacuation of about 1 L of purulent fluid, Gram stain shows gram-positive cocci, ID and susceptibilities pending 2. MRSA bacteremia at OSH - 04/08, blood culture = NGTD @ OSH -2/2 blood cultures positive at OSH on 04/02 -2D Echo OSH was negative for vegetations 3. HX active IV drug use, uses a bundle of fentanyl every day. On methadone 130 mg 4. Antibiotics -Vancomycin 04/07 -Zosyn, 04/07 -Clindamycin x 1, 04/07 Recommendations: -Patient will be returning to the OR today for repeat I&D. 1. With patient requiring multiple surgeries, and now OR cultures are growing staph, will change vancomycin to linezolid 600 mg p.o. IV twice daily. Ordered 2. Continue Zosyn IV, till OR cultures show no gram-negative rods at 3 days Communicated with the ICU team ANTIBIOTIC TIME OUT Current antibiotic/day of therapy: Anti-infectives (From admission, onward) Start Dose/Rate Route Frequency Ordered Stop 04/07/25 1030 piperacillin-tazobactam (ZOSYN) 4.5 g in sodium chloride-MBP (NS) 100 mL IVPB-MBP 4.5 g 33.3 mL/hr over 3 Hours Intravenous Every 6 hours 04/07/25 1015 04/07/25 0100 vancomycin (VANCOCIN) 1,250 mg in sodium chloride (NS) 0.9 % 250 mL IVPB-WTD 1,250 mg 166.7 mL/hr over 90 Minutes Intravenous Every 12 hours 04/07/25 0048 04/06/25 2230 vancomycin (VANCOCIN) IV dosing PER PHARMACY PROTOCOL Note to Pharmacy: 04/06 labs at osh - random vancomycin levels at 11 AM was 19.3 unable to get labsnow due to poor access. creatinine 0.59, GFR more than 60 Pharmacy Protocol Orders Pharmacy Protocol Orders 04/06/252230 OBJECTIVE Physical Examination: Vitals: 04/09/25 0930 BP: Pulse: 75 Resp: Temp: SpO2: 100% Weight: Height: General appearance - female Intubated Open eyes to verbal cues Lungs: Diminished breath sounds at the bases Cardiovascular: Rate rhythm regular Extremities: Right upper extremity with dressing in place. Swelling of the hands and fingers noted Left hand has a dressing in place, with edema of the hand and fingers Results from last 7 days Lab Units 04/09/25 0759 04/09/25 0345 04/09/25 0324 04/08/25 2218 04/08/25 2115 04/08/25 0530 SODIUM mmol/L -- -- 141 -- 138 140 POTASSIUM mmol/L -- -- 3.4 -- 3.6 3.7 CHLORIDE mmol/L -- -- 105 -- 102 101 CO2 mmol/L -- -- 29 -- 26 31 BUN mg/dL -- -- 10 -- 10 10 CREATININE mg/dL -- -- 0.66 -- 0.58 0.51 CALCIUM mg/dL -- -- 7.4* -- 7.1* 7.0* GLUCOSE mg/dL -- -- 77 -- 83 127* GLUCOSE, POC mg/dL 74 78 -- < > -- -- EGFR -- -- >90 -- >90 >90 < > = values in this interval not displayed. Blood Cultures: Lab Results Component Value Date CULTURE Staphylococcus aureus (A) 04/07/2025 CULTURE 04/07/2025 No fungi isolated. Culture will be held for two weeks. CULTURE PENDING 04/07/2025 Imaging Studies XR Chest 1 view-Portable Result Date: 04/08/2025 EXAMINATION: XR CHEST CLINICAL INFORMATION: Confirmation of IJ COMPARISON: Chest radiograph 04/02/2025 TECHNIQUE: Frontal view of the chest was obtained. FINDINGS: Right IJ CVC projects over the cavoatrial junction. Lungs are hypoexpanded. Asymmetric elevation of the right hemidiaphragm. Subsegmental atelectasis in the right lung base. No focal consolidation. Mild blunting of the right costophrenic sulcus. Cardiomediastinal silhouette is similar to prior. No acute osseous findings. 1. Right IJ CVC projects over the cavoatrial junction. No postprocedural pneumothorax. 2. Subsegmental atelectasis in the right lung base. 3. Possible trace right pleural effusion. Interpreted by: Emilee Casas MD [employer] Engineer I personally reviewed the images and the resident's preliminaryreport and AGREE with the report as it is now presented ([email or web address]). MRI Arm w w/o contrast-Lower right Result Date: 04/07/2025 EXAMINATION: MR UPPER EXTREMITY NON JOINT WITHOUT AND WITH CONTRAST, HUMERUS, RIGHT MRI OF THE UPPER EXTREMITY NONJOINT WITHOUT AND WITH CONTRAST FOREARM, RIGHT CLINICAL INFORMATION: Right arm abscess. COMPARISON: Multiple prior examinations most recent CT upper extremity exam April 07, 2025. TECHNIQUE: MRI of the right upper extremity/humerus was performed without and with contrast on a high-field MRI scanner. MRI of the right upper extremity/forearm was performed without and with contrast joy high-field MRI scanner. Contrast 7.5 mL of Magnevist contrast given intravenously during both portions of the exam. FINDINGS: Exam is significantly limited because of difficulties positioning the patient and patient movement. Additionally axial T2-weighted sequences of the forearm and axial T1-weighted sequences of the upper arm humerus could not be obtained. RIGHT UPPER EXTREMITY/HUMERUS: As noted on the CT examination again noted is a lobulated fluid collection extending along the deep surface of the pectoralis major muscle, coracobrachialis extending into the axilla with enhancement of the surrounding tissues. This is suspicious for an evolving abscess. The noted fluid collections above are continuous with the biceps muscle both within the muscle and surrounding the muscle deep to the fascia throughout the anterior compartment and extending the length of the upper extremity to the level of the proximal portion of the distal biceps tendon. Additional mild increased T2 signal and enhancement of the muscles compatible with generalized myositis. The fluid anterior to the anterior compartment deep to the fascia measures up to 1 cm. Also again noted is fluid extending between the teres minor and triceps muscles proximally and extending distally within the posterior compartment deep to the fascia surrounding and partially compressing the triceps muscles. The appearance is suspicious for subfascial abscess between the fascia and triceps muscles. This extends the length of the triceps muscles. This collection measures up to 1.6 cm anterior to posterior. Mild heterogeneous abnor mal signal and enhancement of the muscles compatible with myositis. There is generalized fluid signal in the subcutaneous soft tissues with partial enhancement compatible with a combination of edema and cellulitis throughout the upper arm. Osseous structures: Normal. No abnormal marrow signal. RIGHT UPPER EXTREMITY/FOREARM: As in the upper extremity there is feathery-appearing fluid- like signal noted throughout the forearm with partial enhancement compatible with a combination of edema and cellulitis. There is a lobulated fluid collection at least partially within the brachialradialis muscle and adjacent extensor muscles proximally beginning at the elbow joint and extending to the forearm over approximately 9 cm craniocaudal, 5 cm transverse and 1 cm AP. The collection appears to extend outside of the muscle deep to the fascia as it extends distally. There is heterogeneous enhancement of the noted muscles compatible with myositis. Remaining muscles of the forearm do not demonstrate any definite enhancement. Full evaluation is limited as we were unable to obtain T2-weighted sequences. No additional visible muscle collection noted. Osseous structures: There is possible ill-defined increased T2 signal in the olecranon which is not completely imaged throughout the examination in multiple planes Exam is significantly limited because of difficulties positioning the patient and patient movement.Diffuse generalized abnormality in the subcutaneous soft tissues throughout the right chest, upper arm and forearm compatible with a combination of edema and cellulitis and myositis. As seen on priorCT there are lobulated confluent fluid collections evolving multiple muscle groups and compartmentsas detailed above including the pectoralis major as well as extending distally within anterior and posterior compartment muscles and between the muscles and fascia in the upper arm consistent with and suspicious for abscesses along with myositis. In the proximal forearm anterolaterally there is a fluid collection at least partially within the brachial radialis and extensor muscles and between these muscles and overlying fascia suspicious for abscess along with adjacent myositis. Question abnormal increased T2 signal in the olecranon not completely assessed on this examination.. No bone erosion. Cannot exclude localized osteomyelitis. The remaining bones throughout the upper and lower extremity appear normal MRI Arm w w/o contrast-Upper right Result Date: 04/07/2025 EXAMINATION: MR UPPER EXTREMITY NON JOINT WITHOUT AND WITH CONTRAST, HUMERUS, RIGHT MRI OF THE UPPER EXTREMITY NONJOINT WITHOUT AND WITH CONTRAST FOREARM, RIGHT CLINICAL INFORMATION: Right arm abscess. COMPARISON: Multiple prior examinations most recent CT upper extremity exam April 07, 2025. TECHNIQUE: MRI of the right upper extremity/humerus was performed without and with contrast on a high-field MRI scanner. MRI of the right upper extremity/forearm was performed without and with contrast joy high-field MRI scanner. Contrast 7.5 mL of Magnevist contrast given intravenously during both portions of the exam. FINDINGS: Exam is significantly limited because of difficulties positioning the patient and patient movement. Additionally axial T2-weighted sequences of the forearm and axial T1-weighted sequences of the upper arm humerus could not be obtained. RIGHT UPPER EXTREMITY/HUMERUS: As noted on the CT examination again noted is a lobulated fluid collection extending along the deep surface of the pectoralis major muscle, coracobrachialis extending into the axilla with enhancement of the surrounding tissues. This is suspicious for an evolving abscess. The noted fluid collections above are continuous with the biceps muscle both within the muscle and surrounding the muscle deep to the fascia throughout the anterior compartment and extending the length of the upper extremity to the level of the proximal portion of the distal biceps tendon. Additional mild increased T2 signal and enhancement of the muscles compatible with generalized myositis. The fluid anterior to the anterior compartment deep to the fascia measures up to 1 cm. Also again noted is fluid extending between the teres minor and triceps muscles proximally and extending distally within the posterior compartment deep to the fascia surrounding and partially compressing the triceps muscles. The appearance is suspicious for subfascial abscess between the fascia and triceps muscles. This extends the length of the triceps muscles. This collection measures up to 1.6 cm anterior to posterior. Mild heterogeneous abnor mal signal and enhancement of the muscles compatible with myositis. There is generalized fluid signal in the subcutaneous soft tissues with partial enhancement compatible with a combination of edema and cellulitis throughout the upper arm. Osseous structures: Normal. No abnormal marrow signal. RIGHT UPPER EXTREMITY/FOREARM: As in the upper extremity there is feathery-appearing fluid- like signal noted throughout the forearm with partial enhancement compatible with a combination of edema and cellulitis. There is a lobulated fluid collection at least partially within the brachialradialis muscle and adjacent extensor muscles proximally beginning at the elbow joint and extending to the forearm over approximately 9 cm craniocaudal, 5 cm transverse and 1 cm AP. The collection appears to extend outside of the muscle deep to the fascia as it extends distally. There is heterogeneous enhancement of the noted muscles compatible with myositis. Remaining muscles of the forearm do not demonstrate any definite enhancement. Full evaluation is limited as we were unable to obtain T2-weighted sequences. No additional visible muscle collection noted. Osseous structures: There is possible ill-defined increased T2 signal in the olecranon which is not completely imaged throughout the examination in multiple planes Exam is significantly limited because of difficulties positioning the patient and patient movement.Diffuse generalized abnormality in the subcutaneous soft tissues throughout the right chest, upper arm and forearm compatible with a combination of edema and cellulitis and myositis. As seen on priorCT there are lobulated confluent fluid collections evolving multiple muscle groups and compartmentsas detailed above including the pectoralis major as well as extending distally within anterior and posterior compartment muscles and between the muscles and fascia in the upper arm consistent with and suspicious for abscesses along with myositis. In the proximal forearm anterolaterally there is a fluid collection at least partially within the brachial radialis and extensor muscles and between these muscles and overlying fascia suspicious for abscess along with adjacent myositis. Question abnormal increased T2 signal in the olecranon not completely assessed on this examination.. No bone erosion. Cannot exclude localized osteomyelitis. The remaining bones throughout the upper and lower extremity appear normal CT Upper extremity with contrast-Left Addendum Date: 04/07/2025 Result Date: 04/07/2025 EXAMINATION: CT left upper extremity without contrast CLINICAL INFORMATION: Abscess evaluation COMPARISON: MRI left humerus dated same day TECHNIQUE: Multiple axial CT images of the left upper extremity are acquired without contrast. Sagittal and coronal reconstructions are provided. 75 mL Omnipaque 300. DOSE LOWERING TECHNIQUES: This CT examination was performed using dose optimization techniques as appropriate, variously including the following: - Automated exposure control - Adjustment of mAand/or kV according to patient size (this includes techniques or standardized protocols for targeted exams where dose is matched to indication/reason for exam; i.e. extremities or head) - Use of iterative construction technique 1676.35 FINDINGS: Within the upper extremity, one appears deep to the biceps musculature there is a peripherally enhancing fluid collection originating approximately 10 cmproximal to the elbow joint and extending to the level of the elbow joint. At its distal aspect the fluid collection appears to extend to the subcutaneous soft tissues. No definite enhancing fluid collection distal to the subcutaneous component distal to the elbow joint. Diffuse subcutaneous soft tissue inflammation of the elbow and forearm. No acute osseous abnormality. Peripherally enhancing fluid collection within the upper extremity, approximately 10 cm proximal tothe elbow joint and extending to the level of the elbow joint. At its distal aspect the fluid collection appears to extend to the subcutaneous soft tissues. No definite enhancing fluid collection distal to the subcutaneous component distal to the elbow joint. Findings are concerning for abscess. CT Upper extremity with contrast-Right Result Date: 04/07/2025 EXAMINATION: CT UPPER EXTREMITY WITH CONTRAST, RIGHT CLINICAL INFORMATION: Concern for soft tissue infection of entire right upper extremity. COMPARISON: Outside CTA of the right upper extremity April 02, 2025. TECHNIQUE: CT scan of the right upper extremity was performed with contrast. Reconstruction imaging performed at the acquisition workstation. Contrast dose 80 mL of Omnipaque [address]. [address] examination was performed using dose optimization techniques as appropriate, variously including the o patient size (this includes techniques or standardized protocols for targeted exams where dose is matched to indication/reason for exam; i.e. extremities or head) *Use of iterative reconstruction technique DLP: 1068 mGy-cm FINDINGS The large [id number] and positioning limits evaluation. Subcutaneous soft tissues: There is feathery- appearing fluid-like density noted throughout including the right chest wall and into the right side of the abdomen, as well as circumferentially about the shoulder region, right upper extremity, right forearm and into the hand. No gas noted. MUSCLES/TENDONS: Right shoulder and chest region: There is ill-defined lobulated fluid extending within and along the superficial and deep surface of the pectoralis major and minor, coracobrachialis and teres major. In the upper arm, there is additional fluid extension and involvement of the anterior compartment muscles including the biceps, brachialis and brachioradialis along with the overlying subcutaneous soft tissues. There is also fluid extending along the outer aspect of the triceps muscles deep to the fascia the length of the muscle in the upper extremity. In the forearm and hand, there is no definite involvement of the muscles although there is extensive feathery-appearing fluid-like density in the subcutaneous soft tissues. The osseous structures are intact. The chest is also included in the examination. Numerous lymph nodes present within the axilla, likely reactive. There is consolidation in the right lower lobe and a right pleural effusion. 1. Extensive fluid-like density throughout the subcutaneous soft tissues of the right chest wall, right abdominal wall, right upper extremity and right forearm and hand. This is nonspecific but couldreflect edema, cellulitis or a combination of these. This appears to have progressed compared with outside imaging of the right upper extremity dating back to April 02, 2025. 2. There is fluid extending within and along the superficial and deep surface muscles and muscle groups in the right chest/chest wall and right upper extremity compatible with myositis and likely evolving phlegmon or abscesses which has progressed compared with prior outside imaging dating back to April 02, 2025. See details above. No definite involvement of the muscles in the forearm and hand 3. Right lower lobe consolidation and right pleural effusion. CT Extremity Left Archive for Reference Only Result Date: 04/07/2025 This study has been auto finalized and does not contain a result. CT Extremity Left Archive for Reference Only Result Date: 04/07/2025 This study has been auto finalized and does not contain a result. CR Extremity Right Archive for Reference only Result Date: 04/07/2025 This study has been auto finalized and does not contain a result. CT Extremity Right Archive for Reference Only Result Date: 04/07/2025 This study has been auto finalized and does not contain a result. CT Extremity Left Archive for Reference Only Result Date: 04/07/2025 This study has been auto finalized and does not contain a result. CT Extremity Right Archive for Reference Only Result Date: 04/07/2025 This study has been auto finalized and does not contain a result. CT Extremity Right Archive for Reference Only Result Date: 04/07/2025 This study has been auto finalized and does not contain a result. CR Chest Archive for Reference only Result Date: 04/07/2025 This study has been auto finalized and does not contain a result. ZEINAB Archive for reference only CT Result Date: 04/07/2025 This order has been auto-finalized and does not contain a result. ZEINAB Archive for reference only CT Result Date: 04/07/2025 This order has been auto-finalized and does not contain a result. CT Extremity Left Archive for Reference Only Result Date: 04/07/2025 This study has been auto finalized and does not contain a result. CT Extremity Left Archive for Reference Only Result Date: 04/07/2025 This study has been auto finalized and does not contain a result. CT Extremity Right Archive for Reference Only Result Date: 04/07/2025 This study has been auto finalized and does not contain a result. CR Chest Archive for Reference only Result Date: 04/07/2025 This study has been auto finalized and does not contain a result. CT Extremity Left Archive for Reference Only Result Date: 04/07/2025 This study has been auto finalized and does not contain a result. CT Extremity Right Archive for Reference Only Result Date: 04/07/2025 This study has been auto finalized and does not contain a result. CT Extremity Right Archive for Reference Only Result Date: 04/07/2025 This study has been auto finalized and does not contain a result. CR Extremity Right Archive for Reference only Result Date: 04/07/2025 This study has been auto finalized and does not contain a result. Current Medications: Current Medications[1] ALLERGIES: Allergies[2] I reviewed the prescribed Medications and new Laboratory Blood Work. Monitor for drug related adverse effects.>50 min spent in reviewing records, labs, imaging, coordination and formulation of plan of care I reviewed all new Imaging Studies (actual images) and compared to prior where applicable Of note, some information is being carried forward from prior records for informational purposes only and is being cited so that efficiency, safety and quality of this patient's care is not compromised This report was generated using [employer] dictation software. Although every attempt has been made by the provider to proofread this document, occasional misspellings and typographical errors Sign Anisa Perez MD, [facility], [facility] Infectious Diseases Available via [employer] 04/09/2025 11:17 AM [1] Current Facility-Administered Medications Medication Dose Route Frequency Provider Last Rate Last Admin lactated ringers (LR) infusion 100 mL/hr Intravenous Continuous Ani Brown APRN 100 mL/hr at 04/09/25 1000 100 mL/hr at 04/09/25 1000 acetaminophen (TYLENOL) 160 mg/5 mL solution 975 mg 975 mg Feeding Tube Q6H [facility] Ani Brown APRN 975 mg at 04/09/25 0339 albuterol (PROVENTIL) (0.083%) 2.5 mg/3 mL nebulizer solution 2.5 mg 2.5 mg Nebulization Q6H PRN Ani Brown APRN baclofen (LIORESAL) tablet 10 mg 10 mg Feeding Tube Q8H [facility] Ani Brown APRN 10 mg at 04/09/25 0537 bisacodyl (DULCOLAX) suppository 10 mg 10 mg Rectal Daily PRN Ani Brown APRN chlorhexidine (PERIDEX) 0.12 % oral solution 15 mL 15 mL Mouth/Throat BID Ani Brown APRN 15 mL at 04/09/25 0847 chlorhexidine gluconate 2 % wipes - daily CHG application Topical Daily Ani Brown APRN 1 each at 04/08/25 0837 chlorhexidine gluconate 2 % wipes - daily CHG application Topical Daily Galdino Cunningham MD glucose (GLUTOSE 15) 40 % oral gel 37.5 g 1 Tube Oral Q15 Min PRN Ani Brown APRN Or glucose (GLUTOSE 15) 40 % oral gel 75 g 2 Tube Oral Q15 Min PRN Ani Brown APRN Or dextrose 50 % solution 12.5 g 12.5 g Intravenous Q15 Min PRN Ani Brown APRN Or dextrose 50 % solution 25 g 25 g Intravenous Q15 Min PRN Ani Brown APRN Or glucagon (GLUCAGEN) injection 1 mg 1 mg Intramuscular Daily PRN Ani Brown APRN gabapentin (NEURONTIN) capsule 300 mg 300 mg Feeding Tube Q8H [facility] Ani Brown APRN 300 mg at 04/09/25 0537 heparin (porcine) 5000 unit/mL injection 5,000 Units 5,000 Units Subcutaneous Q8H [facility] Ani Brown APRN 5,000 Units at 04/09/25 0537 HYDROmorphone (DILAUDID) injection 1 mg 1 mg Intravenous Q1H PRN Ani Brown APRN 1 mg at 04/09/25 0836 HYDROmorphone (DILAUDID) IV infusion 50 mg in 50 mL NS (1 mg/mL) (premix) 1 mg/hr Intravenous Continuous Ani Brown APRN 1 mL/hr at 04/09/25 1000 1 mg/hr at 04/09/25 1000 insulin lispro (HumaLOG/ADMELOG) 100 units/mL injection 1-6 Units 1-6 Units Subcutaneous Q4H [facility] Sd Echevarria MD ketorolac (TORADOL) injection 15 mg 15 mg Intravenous Q8H PRN Ani Brown APRN methadone (DOLOPHINE) tablet 130 mg 130 mg Feeding Tube Daily Ani Brown APRN 130 mg at 04/09/25 0836 [START ON 04/10/2025] naloxegol (MOVANTIK) tablet 25 mg 25 mg Oral Daily before breakfast Sd Echevarria MD naloxone (NARCAN) 0.4 mg/mL injection 0.4 mg 0.4 mg Intravenous Q5 Min PRN Ani Brown APRN ondansetron (ZOFRAN) injection 4 mg 4 mg Intravenous Q6H PRN Ani Brown APRN PANTOprazole (PROTONIX) injection 40 mg 40 mg Intravenous Daily Ani Brown APRN 40 mg at 04/09/25 0837 piperacillin-tazobactam (ZOSYN) 4.5 g in sodium chloride-MBP (NS) 100 mL IVPB- MBP 4.5 g [id number] Ani Brown APRN 33.3 mL/hr at 04/09/25 0537 4.5 g at 04/09/25 0537 polyethylene glycol (miraLAx) packet 17 g 17 g Feeding Tube Daily Ani Brown APRN 17 g at 04/09/25 0845 propofol (diPRIvan) 1000 MG/100ML injection 5-75 mcg/kg/min Intravenous Titrated Ani Brown APRN 19.9 mL/hr at 04/09/25 1000 45.002 mcg/kg/min at 04/09/25 1000 propofol (diPRIvan) IV bolus from bottle via smart pump 10 mg 10 mg Intravenous Q5 Min PRN Ani Brown APRN 10 mg at 04/09/25 0705 propofol (diPRIvan) IV bolus from bottle via smart pump 20 mg 20 mg Intravenous Q5 Min PRN Ani Bolaños ANDREINA Brown 20 mg at 04/09/25 0341 senna-docusate (SENNA-S) 8.6-50 MG tablet 2 tablet 2 tablet Feeding Tube BID Ani Bolaños ANDREINA Brown 2 tablet at 04/09/25 0845 vancomycin (VANCOCIN) IV dosing PER PHARMACY PROTOCOL Pharmacy Protocol Orders Pharmacy Protocol Orders Ani Bolaños ANDREINA Brown vancomycin (VANCOCIN) 1,250 mg in sodium chloride (NS) 0.9 % 250 mL IVPB-WTD 1,250 mg Intravenous Q12H Ani Bolaños ANDREINA Brown 166.7 mL/hr at 04/09/25 0339 1,250 mg at 04/09/25 0339 [2] No Known Allergies * Sd Echevarria MD - 04/09/2025 7:31 AM EDT C8I CRITICAL CARE PROGRESS NOTE Shift: 6:00pm-8:00am ICU Attending: Dr. Yarbrough Assessment & Plan The patient remains critically ill/injured and/or remains at high risk for life threatening complications due to: Assessment and Plan reviewed in detail and updated if indicated. Any changes made to plan are reflected below. Unchanged diagnoses remain relevant Neurological Acute post-operative pain OUD Active IV cocaine use -Dilaudid infusion 1 mg/h + 1mg IV Q1H PRN -Propofol gtt (5-75mcg/kg/min) + 20 mg Q5min PRN -Tylenol 975mg ngt Q6H scheduled -Toradol 15mg IV Q8H scheduled x 15 doses -Methadone 130mg ngt daily (confirmed home maintenance dose) -Methadone clinic: [facility] Care Resource [facility] (OR) -Gabapentin 300mg ngt Q8H -Baclofen 10mg ngt Q8H -COWS monitoring Q4H Respiratory Intubation for airway protection -Ventilator protocol -Propofol for ventilator tolerance -Wean supplemental O2 as tolerated for SpO2 goal > 92% -Albuterol Q6H prn for wheezing GI Constipation most likely due to opioid usage NGT to suction Bowel Regimen (dulcolax, zofran, miralax, senna) Protonix 40 mg QD Add Movantik 25mg 04/09 AM Lynch Catheter in place, draining clear yellow urine Strict Ins and Outs Monitor Electrolytes and replete accordingly Extremities MRSA necrotizing soft tissue infection of right upper extremity Right upper extremity abscess Left upper extremity abscess antecubital fossa and synovitis in wrist 04/08 Debridement of RUE abscess extending to R shoulder and superficial tracts toward R chest/pectoralis major, washout, betadine soaked kerlix packing -ID consulted, appreciate recs -Wound team consulted -RUE dressing changes per surgery -Continue Zosyn -Continue Vanco -Trend fever/WBC curve -per orthopaedics, advised to stay out of the glenohumeral joint; advised a posterior incision to drain triceps collection -FU CT 04/09 Soft tissue neck, thorax, upper extremity Heme Acute blood loss anemia -Transfuse to maintain H/H - Heme slightly downtrending 7.0 ( 8.0 > 7.2) - 2 units of PRBC prepared in case needed for OR Endocrine - Insulin Sliding Scale Infectious Disease MRSA bacteremia (04/02) 04/07 Tissue Culture R arm Staph Aureus - WBC 12.3 (9.4) - FU 04/09 Blood culture x1. - another blood culture planned for today 04/09 Antibiotics Per ID, switch vanco to linezolid; continue zosyn until culture Linezolid 600mg Q12H (04/09- Vancomycin 1250mg Q12H (04/07- 04/09) Zosyn 4.5mg (04/08- Abx Hx: Ancef 04/07 Outside hospital (Vanc/Zosyn 04/02 - ) Clindamycin 900mg (04/08) VTE Time Out IMPROVE SCORE: 0 (04/06/2025 10:21 PM) Interpretation - Low Risk Chemical Prophylaxis heparin (porcine) 5000 unit/mL injection 5,000 Units Subcutaneous Every 8 hours scheduled Heparin Sodium (Porcine) 5000 Units Last dose 04/09/2025 5:37 AM Mechanical Prophylaxis SCDs are ordered - Bilateral (Knee High) STRESS ULCER PROPHYLAXIS: Protonix 40mg Indications: coag (plt <50k, INR >1.5 or PTT >2, vent >48 hours, recent GIB<1 yr, Severe TBI (GCS<8 or SCI), thermal claderón >35% BSA, hydrocortisone >250mg QD, pred 60, 10 decadron snf low dose ASA or plavix , therapeutic anticoagulation Restraints: bilateral soft wrist restraints in place to prevent inadvertent removal of necessary medical devices and to maintain patient safety, use reviewed today and remain medically necessary Lines/Devices: All invasive lines discussed during rounds and use reviewed 04/09/25. Central Line Present/Indication: Right internal jugular Lynch Present/Indication: Strict I&O ANTIBIOTIC TIME OUT Treatment Indication: Soft tissue infection Current antibiotic/day of therapy: Anti-infectives (From admission, onward) Start Dose/Rate Route Frequency Ordered Stop 04/07/25 1030 piperacillin-tazobactam (ZOSYN) 4.5 g in sodium chloride-MBP (NS) 100 mL IVPB-MBP 4.5 g 33.3 mL/hr over 3 Hours Intravenous Every 6 hours 04/07/25 1015 04/07/25 0100 vancomycin (VANCOCIN) 1,250 mg in sodium chloride (NS) 0.9 % 250 mL IVPB-WTD 1,250 mg 166.7 mL/hr over 90 Minutes Intravenous Every 12 hours 04/07/25 0048 04/06/25 2230 vancomycin (VANCOCIN) IV dosing PER PHARMACY PROTOCOL Note to Pharmacy: 04/06 labs at osh - random vancomycin levels at 11 AM was 19.3 unable to get labs now due to poor access. creatinine 0.59, GFR more than 60 Pharmacy Protocol Orders Pharmacy Protocol Orders 04/06/25 2231 Oral antibiotic transition date: NA Anticipated Stop date: NA Supportive Microbiology: Staph Aureus, MRSA bacteremia Subjective PMH/PSH: IVDU (OUD on methadone), anxiety, depression Hospital Course: 34 y.o. female with history of IVDU, anxiety, and depression who presented with RUE pain and swelling. She had an I&D of the RUE at an OSH which was closed with suture. On exam, she had significant erythema and induration that extended from the right elbow proximally. CT was done and showed fluid collection tracking from RUE to right chest. 04/07 BUE I&D w/ evacuation of about 1L of purulent fluid. RTOR 04/08 for additional I&D with extension of incision to shoulder, and Pulsavac with 6L fluid, superficial tracts into pectoralis major identified and flushed as well.Post-op pt remained intubated [facility] BUE/chest/neck soft tissues obtained withplan for RTOR 04/09. Shift Events: Objective/Physical Exam This note encompasses entire shift, physical exam completed at: 0700 Vitals: Pulse:73, Resp:13, BP:BP Min: 122/58 Max: 155/70 MAP: SpO2:99 % CVP: Temp Last 24 hrs: TempMin: 92.3 ??F (33.5 ??C) Max: 97.6 ??F (36.4 ??C) Temp: [92.3 ??F (33.5 ??C)-97.6 ??F (36.4 ??C)] 97.5 ??F (36.4 ??C) Pulse: [61-76] 73 Resp: [1-19] 13 BP: (122-155)/(57-84) 138/62 Neuro/HEENT: Sedated Opens eyes to voice, tracks; does not nod head to questions, unable to follow to move extremities due to sedation Behavioral/Sedation scales: CAM-ICU Delirium Present: Positive Salmon Agitation Sedation Scale (RASS) / Modified RASS: +1-->restless Cardiac: RRR, S1/S2, no murmur Telemetry reviewed for past 24h and shows: NSR QTc: 465 Extremities: Bilateral upper extremities wrapped and bandaged. RUE with bulky dressing over betadine-soaked kerlix, motor and sensory intact, 2+edema of fingers Left hand moderate edema, slight erythema Bilateral lower extremities without open wounds. Right LE with blood pressure cuff. Left LE with SCD in place. Pulmonary: Intubated, ETT, CTAB Gastrointestinal: NGT present. Soft, nontender, bowel sounds auscultated : Urinary catheter Skin/Wound: see extremities Data/Lab Values DRIPS/MEDICATIONS lactated ringers, 100 mL/hr, Last Rate: 100 mL/hr (04/09/25699) HYDROmorphone, 1 mg/hr, Last Rate: 1 mg/hr (04/09/25699) propofol, 5-75 mcg/kg/min, Last Rate: 45 mcg/kg/min (04/09/25699) CV: Temp: [92.3 ??F (33.5 ??C)-97.6 ??F (36.4 ??C)] 97.5 ??F (36.4 ??C) Pulse: [61-76] 73 Resp: [1-19] 13 BP: (122-155)/(57-84) 138/62 Recent Labs 04/08/25211404/09/25 0324 CKTOTAL 138 97 Recent Labs 04/08/25211404/09/25323 CKTOTAL 138 97 PULM: RR: 13,SpO2:99 % Ventilation Mode (Drager): VC-SIMV (invasive) Rate Set (breaths/min) (Drager): 12 Tidal Volume Set (mL) (Drager): 400 Oxygen Concentration (%) (Drager): 40 PEEP (cmH2O) (Drager): 8 ABG: No results for input(s): PHA , PCO2 , PO2 , HCO3 in the last 72 hours. GI/NUTRITION: Diet NPO; Meds No results for input(s): AST , ALT , ALKPHOS , BILITOT , BILIDIR , ALBUMIN , PROT in the last 72 hours. No results for input(s): LIPASE in the last 72 hours. No results for input(s): ALBUMIN , PREALBUMIN , TRF in the last 72 hours. Recent Labs 04/08/252114 TRIG 234* RENAL: No intake/output data recorded. Intake/Output Summary (Last 24 hours) at 04/09/2025 0731 Last data filed at 04/09/2025 0700 Gross per 24 hour Intake 6960.77 ml Output 2415 ml Net 4545.77 ml Recent Labs 04/08/25 0530 04/08/25211404/09/25323 NA 140 138 141 K 3.7 3.6 3.4 CO2 31 26 29 CL 101 102 105 BUN 10 10 10 CREAT 0.51 0.58 0.66 CALCIUM 7.0* 7.1* 7.4* MG 2.1 2.1 2.1 PHOS 3.5 3.5 3.7 Calcium, Ionized Date Value Ref Range Status 04/08/2025 1.05 (L) 1.17 - 1.33 mmol/L Final Recent Labs 04/08/252114 LACTIC 1.1 HEME: Recent Labs 04/08/25 0530 04/08/25211404/09/25323 HCT 25.1* 22.4* 21.7* HGB 8.0* 7.2* 7.0* WBC 15.0* 9.4 12.3* PLT 392 390 418 No results for input(s): PT , PTT , INR in the last 72 hours. No results for input(s): ANTIXA in the last 72 hours. ID: Temp Min: 92.3 ??F (33.5 ??C) Max: 97.6 ??F (36.4 ??C) Recent Labs 04/08/2552904/08/25211404/09/25323 WBC 15.0* 9.4 12.3* No results for input(s): GLUCCSF , PROTCSF , WBCCSF , RBCCSF , LACTATECSF in the last 72 hours. Cultures: See micro in EPIC ENDOCRINE: Results from last 7 days Lab Units 04/09/25 0345 04/09/254 04/09/25 0036 04/08/25221704/08/25211404/08/25 0530 GLUCOSE mg/dL -- 77 -- -- 83 127* GLUCOSE, POC mg/dL 78 -- 100* 92 -- -- No results found for: HGBA1C Relevant data reviewed: I have reviewed all past medical history, all past surgical history, allergies, home medications, and inpatient data since admission. Imaging Studies: All interval imaging reviewed. CXR Report reviewed KUB Report reviewed Family Update: No family present at bedside at time of exam. Critical Care time spent in multiple visits throughout the day for collaboration/coordination of care exclusive of time spent performing separately billable medical procedures is 60 minutes. Patient seen and examined. Chart and clinical information reviewed. Previous notes and lab data reviewed. Case discussed with ICU attending, ICU team, primary team, available consultants and the patient's family when available. Of note, some information is being carried forward from prior records for informational purposes only and is being cited so that efficiency, safety and quality of this patient's care is not compromised. Activities included: Chart/data review, Documentation, Medication orders/management, Interpreting/reviewing radiologic studies, Vital sign assessments, and Interpreting/reviewing lab tests Plan of care reviewed with ICU attending and in agreement with above. Signature Sd Echevarria MD 7:31 AM 04/09/2025 Cosigned by Sophia Yarbrough MD at 04/09/2025 5:28 PM EDT Associated attestation - Sophia Yarbrough MD - 04/09/2025 5:28 PM EDT I have personally interviewed and examined the patient and reviewed Dr. Wale GUTIÉRREZ 's note. I agree with the history, exam, assessment and plan as detailed in resident's note with the following additions/exceptions/observations - Status post debridement x 3 the last 1 today, received 2 units of packed RBC and 1 unit of FFP inOR - Repeat H&H -Continue with maintenance IV fluid -continue with antibiotics per ID -Continue with enteral methadone and IV Dilaudid infusion for better pain control - Naloxogel for opioid-induced gut Hypomotility and bowel regimen - Multimodal analgesia adjuncts - Continue with maintenance IV fluid with D5 LR - With ICU care The patient remains critically ill/injured and/or remains at high risk for life threatening complications due to: Acute hypoxic respiratory failure Acute on chronic pain syndrome Hypertension MRSA necrotizing soft tissue infection of the right upper extremity and left upper extremity Acute blood loss anemia MRSA bacteremia Subjective Patient examined and chart reviewed on Rounds and on multiple occasions throughout the day, including PMH, PSH, FH, SH, ROS, medications and allergies, as noted previously in the chart. Physical findings and lab work confirmed by my exam. Plan discussed and agreed upon with team. See ICU Resident note for details. See flow sheet. Activities included: Chart/data review, Documentation, Medication orders/management, Titration of medications, Collaborating with consultants, Care, transfer of care and discharge plans, Nutritional support, Interpreting/reviewing radiologic studies, Reviewing RN notes/previous records, Ventilator management, Vital sign assessments, Hemodynamic resuscitation, and Interpreting/reviewing lab tests Critical Care Time Spent: 45 minutes (Exclusive of time spent on procedures) Sign: Sophia Yarbrough MD SICU Attending Staff Department of Anesthesiology and Surgical Critical Care * Kari Bain MD - 04/09/2025 5:16 AM EDT Daily General Surgery Progress Note Assessment & Plan Molly Beasley is a 34 y.o. female with history of IVDU, anxiety, and depression who presented withRUE pain and swelling. She had an I&D of the RUE at an OSH which was closed with suture. CT wasdone and showed fluid collection tracking from RUE to right chest. She is now POD2 s/p BUE I&D and POD1 s/p repeat washout of RUE. On return to OR, there was still significant purulent output of the wounds. She was taken to the ICU post op, intubated. She is sedated and off pressors. Plan - return to OR today for repeat I&D, washout, debridement. She needs further I&D and washout of right chest and pectoralis - abx: zosyn, vanco - Diet: NPO - IVF: LR 100 - DVT ppx: SQH - fu echo - Pain control: dilaudid gtt, Toradol, tylenol, gabapentin - propofol gtt - methadone - Monitor vitals / strict I&Os - Pulmonary hygiene, IS - OOB and activity as tolerated - Appreciate recommendations from ortho - Appreciate care per ICU - Please contact emergency general Surgery with any questions Principal Problem: Hand abscess (POA: Yes) Active Problems: Abscess of arm, right (POA: Unknown) Abscess of left arm (POA: Unknown) Lung nodule (POA: Unknown) MRSA bacteremia (POA: Unknown) Infection of wound due to methicillin resistant Staphylococcus aureus (MRSA) (POA: Unknown) 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) IV drug user (POA: Unknown) Difficult intravenous access (POA: Unknown) ADHD (POA: Unknown) Resolved Problems: Subjective Patient is currently intubated and sedated in ICU. Objective Last Vitals Pulse:74,Resp:12,BP:(!) 145/65,SpO2:99 %,Weight:73.7 kg (162 lb 7.7 oz) (verified by ANMOL Thapa) Temp Last 24 hrs: Temp Min: 92.3 ??F (33.5 ??C) Max: 97.6 ??F (36.4 ??C) Last temp: 96.6 ??F (35.9 ??C) (Esophageal) Intake/Output Summary (Last 24 hours) at 04/09/2025 0516 Last data filed at 04/09/2025 0400 Gross per 24 hour Intake 6505.84 ml Output 2005 ml Net 4500.84 ml Physical Exam Gen: sedated on dilaudid and propofol Card: regular rate Pulm: intubated on SIMV RUE: arm in surgical dressing, not taken down. Fullness/ edema to axilla and chest wall. Does grimace slightly to palpation but exam limited by sedation. Hand is warm and edematous LUE: surgical dressing in place, not taken down, no saturation Skin: warm and dry VTE Time Out IMPROVE SCORE: 0 (04/06/2025 10:21 PM) Interpretation - Low Risk Chemical Prophylaxis heparin (porcine) 5000 unit/mL injection 5,000 Units Subcutaneous Every 8 hours scheduled Heparin Sodium (Porcine) 5000 Units Last dose 04/08/2025 10:13 PM Mechanical Prophylaxis SCDs are ordered - Bilateral (Knee High) Labs: White Blood Cell Count Date Value Ref Range Status 04/09/2025 12.3 (H) 4.0 - 11.0 Thou/uL Final Hemoglobin Date Value Ref Range Status 04/09/2025 7.0 (L) 11.7 - 15.7 g/dL Final Hematocrit Date Value Ref Range Status 04/09/2025 21.7 (L) 35.0 - 47.0 % Final Platelet Count Date Value Ref Range Status 04/09/2025 418 150 - 450 Thou/uL Final Lab Results Component Value Date NA 141 04/09/2025 K 3.4 04/09/2025 CL 105 04/09/2025 CO2 29 04/09/2025 BUN 10 04/09/2025 CREAT 0.66 04/09/2025 GLUC 78 04/09/2025 GLUC 77 04/09/2025 Lab Results Component Value Date CALCIUM 7.4 (L) 04/09/2025 MG 2.1 04/09/2025 PHOS 3.7 04/09/2025 No results found for: AST , ALT , ALKPHOS , BILITOT , BILIDIR , ALBUMIN , PROT No results found for: AMYLASE , LIPASE No results found for: PTT , LABPROT , INR Imaging Studies XR Chest 1 view-Portable (STAT) Result Date: 04/09/2025 EXAMINATION: XR CHEST XR ABDOMEN CLINICAL INFORMATION: s/p intubation COMPARISON: Chest radiograph 04/07/2025 TECHNIQUE: Frontal view of the chest was obtained. AP view of the abdomen. FINDINGS: Chest: Endotracheal tube terminates 4 cm above the tico. Esophageal temperature probe. Enteric tube courses subdiaphragmatically and terminates outside the visual field. Right IJ CVC projects over the cavoatrial junction. Lungs are hypoexpanded. Increased size of the small right pleural effusion with hazy right basilar opacities. No focal consolidation. No pneumothorax. Cardiomediastinal silhouette is similar to prior. No acute osseous findings. Abdomen: Enteric tube tip and side-port project over the stomach. Partially visualized large colonic stool burden. Nonobstructive bowel gas pattern. No abnormal soft tissue calcifications or acute osseous findings. Chest: 1. Endotracheal tube terminates 4 cm above the tico. Lines and tubes otherwise as described above. 2. Increased size of the small right pleural effusion with subadjacent hazy right basilar opacities, favoring compressive atelectasis. Abdomen: 1. Enteric tube tip and side-port project over the stomach. 2. Partially visualized large colonic stool burden. Interpreted by: Emilee Casas MDRadiology Resident I personally reviewed the images and the resident's preliminary report and AGREEwith the report as it is now presented ([email or web address]). XR Abdomen 1 view Result Date: 04/09/2025 EXAMINATION: XR CHEST XR ABDOMEN CLINICAL INFORMATION: s/p intubation COMPARISON: Chest radiograph 04/07/2025 TECHNIQUE: Frontal view of the chest was obtained. AP view of the abdomen. FINDINGS: Chest: Endotracheal tube terminates 4 cm above the tico. Esophageal temperature probe. Enteric tube courses subdiaphragmatically and terminates outside the visual field. Right IJ CVC projects over the cavoatrial junction. Lungs are hypoexpanded. Increased size of the small right pleural effusion with hazy right basilar opacities. No focal consolidation. No pneumothorax. Cardiomediastinal silhouette is similar to prior. No acute osseous findings. Abdomen: Enteric tube tip and side-port project over the stomach. Partially visualized large colonic stool burden. Nonobstructive bowel gas pattern. No abnormal soft tissue calcifications or acute osseous findings. Chest: 1. Endotracheal tube terminates 4 cm above the tico. Lines and tubes otherwise as described above. 2. Increased size of the small right pleural effusion with subadjacent hazy right basilar opacities, favoring compressive atelectasis. Abdomen: 1. Enteric tube tip and side-port project over the stomach. 2. Partially visualized large colonic stool burden. Interpreted by: Emilee Casas [facility] Resident I personally reviewed the images and the resident's preliminary report and AGREEwith the report as it is now presented ([email or web address]). XR Chest 1 view-Portable Result Date: 04/08/2025 EXAMINATION: XR CHEST CLINICAL INFORMATION: Confirmation of IJ COMPARISON: Chest radiograph 04/02/2025 TECHNIQUE: Frontal view of the chest was obtained. FINDINGS: Right IJ CVC projects over the cavoatrial junction. Lungs are hypoexpanded. Asymmetric elevation of the right hemidiaphragm. Subsegmental atelectasis in the right lung base. No focal consolidation. Mild blunting of the right costophrenic sulcus. Cardiomediastinal silhouette is similar to prior. No acute osseous findings. 1. Right IJ CVC projects over the cavoatrial junction. No postprocedural pneumothorax. 2. Subsegmental atelectasis in the right lung base. 3. Possible trace right pleural effusion. Interpreted by: Emilee Casas MD Natural Gas Engineer I personally reviewed the images and the resident's preliminaryreport and AGREE with the report as it is now presented ([email or web address]). MRI Arm w w/o contrast-Lower right Result Date: 04/07/2025 EXAMINATION: MR UPPER EXTREMITY NON JOINT WITHOUT AND WITH CONTRAST, HUMERUS, RIGHT MRI OF THE UPPER EXTREMITY NONJOINT WITHOUT AND WITH CONTRAST FOREARM, RIGHT CLINICAL INFORMATION: Right arm abscess. COMPARISON: Multiple prior examinations most recent CT upper extremity exam April 07, 2025. TECHNIQUE: MRI of the right upper extremity/humerus was performed without and with contrast on a high-field MRI scanner. MRI of the right upper extremity/forearm was performed without and with contrast joy high-field MRI scanner. Contrast 7.5 mL of Magnevist contrast given intravenously during both portions of the exam. FINDINGS: Exam is significantly limited because of difficulties positioning the patient and patient movement. Additionally axial T2-weighted sequences of the forearm and axial T1-weighted sequences of the upper arm humerus could not be obtained. RIGHT UPPER EXTREMITY/HUMERUS: As noted on the CT examination again noted is a lobulated fluid collection extending along the deep surface of the pectoralis major muscle, coracobrachialis extending into the axilla with enhancement of the surrounding tissues. This is suspicious for an evolving abscess. The noted fluid collections above are continuous with the biceps muscle both within the muscle and surrounding the muscle deep to the fascia throughout the anterior compartment and extending the length of the upper extremity to the level of the proximal portion of the distal biceps tendon. Additional mild increased T2 signal and enhancement of the muscles compatible with generalized myositis. The fluid anterior to the anterior compartment deep to the fascia measures up to 1 cm. Also again noted is fluid extending between the teres minor and triceps muscles proximally and extending distally within the posterior compartment deep to the fascia surrounding and partially compressing the triceps muscles. The appearance is suspicious for subfascial abscess between the fascia and triceps muscles. This extends the length of the triceps muscles. This collection measures up to 1.6 cm anterior to posterior. Mild heterogeneous abnor mal signal and enhancement of the muscles compatible with myositis. There is generalized fluid signal in the subcutaneous soft tissues with partial enhancement compatible with a combination of edema and cellulitis throughout the upper arm. Osseous structures: Normal. No abnormal marrow signal. RIGHT UPPER EXTREMITY/FOREARM: As in the upper extremity there is feathery-appearing fluid- like signal noted throughout the forearm with partial enhancement compatible with a combination of edema and cellulitis. There is a lobulated fluid collection at least partially within the brachialradialis muscle and adjacent extensor muscles proximally beginning at the elbow joint and extending to the forearm over approximately 9 cm craniocaudal, 5 cm transverse and 1 cm AP. The collection appears to extend outside of the muscle deep to the fascia as it extends distally. There is heterogeneous enhancement of the noted muscles compatible with myositis. Remaining muscles of the forearm do not demonstrate any definite enhancement. Full evaluation is limited as we were unable to obtain T2-weighted sequences. No additional visible muscle collection noted. Osseous structures: There is possible ill-defined increased T2 signal in the olecranon which is not completely imaged throughout the examination in multiple planes Exam is significantly limited because of difficulties positioning the patient and patient movement.Diffuse generalized abnormality in the subcutaneous soft tissues throughout the right chest, upper arm and forearm compatible with a combination of edema and cellulitis and myositis. As seen on priorCT there are lobulated confluent fluid collections evolving multiple muscle groups and compartmentsas detailed above including the pectoralis major as well as extending distally within anterior and posterior compartment muscles and between the muscles and fascia in the upper arm consistent with and suspicious for abscesses along with myositis. In the proximal forearm anterolaterally there is a fluid collection at least partially within the brachial radialis and extensor muscles and between these muscles and overlying fascia suspicious for abscess along with adjacent myositis. Question abnormal increased T2 signal in the olecranon not completely assessed on this examination.. No bone erosion. Cannot exclude localized osteomyelitis. The remaining bones throughout the upper and lower extremity appear normal MRI Arm w w/o contrast-Upper right Result Date: 04/07/2025 EXAMINATION: MR UPPER EXTREMITY NON JOINT WITHOUT AND WITH CONTRAST, HUMERUS, RIGHT MRI OF THE UPPER EXTREMITY NONJOINT WITHOUT AND WITH CONTRAST FOREARM, RIGHT CLINICAL INFORMATION: Right arm abscess. COMPARISON: Multiple prior examinations most recent CT upper extremity exam April 07, 2025. TECHNIQUE: MRI of the right upper extremity/humerus was performed without and with contrast on a high-field MRI scanner. MRI of the right upper extremity/forearm was performed without and with contrast joy high-field MRI scanner. Contrast 7.5 mL of Magnevist contrast given intravenously during both portions of the exam. FINDINGS: Exam is significantly limited because of difficulties positioning the patient and patient movement. Additionally axial T2-weighted sequences of the forearm and axial T1-weighted sequences of the upper arm humerus could not be obtained. RIGHT UPPER EXTREMITY/HUMERUS: As noted on the CT examination again noted is a lobulated fluid collection extending along the deep surface of the pectoralis major muscle, coracobrachialis extending into the axilla with enhancement of the surrounding tissues. This is suspicious for an evolving abscess. The noted fluid collections above are continuous with the biceps muscle both within the muscle and surrounding the muscle deep to the fascia throughout the anterior compartment and extending the length of the upper extremity to the level of the proximal portion of the distal biceps tendon. Additional mild increased T2 signal and enhancement of the muscles compatible with generalized myositis. The fluid anterior to the anterior compartment deep to the fascia measures up to 1 cm. Also again noted is fluid extending between the teres minor and triceps muscles proximally and extending distally within the posterior compartment deep to the fascia surrounding and partially compressing the triceps muscles. The appearance is suspicious for subfascial abscess between the fascia and triceps muscles. This extends the length of the triceps muscles. This collection measures up to 1.6 cm anterior to posterior. Mild heterogeneous abnor mal signal and enhancement of the muscles compatible with myositis. There is generalized fluid signal in the subcutaneous soft tissues with partial enhancement compatible with a combination of edema and cellulitis throughout the upper arm. Osseous structures: Normal. No abnormal marrow signal. RIGHT UPPER EXTREMITY/FOREARM: As in the upper extremity there is feathery-appearing fluid- like signal noted throughout the forearm with partial enhancement compatible with a combination of edema and cellulitis. There is a lobulated fluid collection at least partially within the brachialradialis muscle and adjacent extensor muscles proximally beginning at the elbow joint and extending to the forearm over approximately 9 cm craniocaudal, 5 cm transverse and 1 cm AP. The collection appears to extend outside of the muscle deep to the fascia as it extends distally. There is heterogeneous enhancement of the noted muscles compatible with myositis. Remaining muscles of the forearm do not demonstrate any definite enhancement. Full evaluation is limited as we were unable to obtain T2-weighted sequences. No additional visible muscle collection noted. Osseous structures: There is possible ill-defined increased T2 signal in the olecranon which is not completely imaged throughout the examination in multiple planes Exam is significantly limited because of difficulties positioning the patient and patient movement.Diffuse generalized abnormality in the subcutaneous soft tissues throughout the right chest, upper arm and forearm compatible with a combination of edema and cellulitis and myositis. As seen on priorCT there are lobulated confluent fluid collections evolving multiple muscle groups and compartmentsas detailed above including the pectoralis major as well as extending distally within anterior and posterior compartment muscles and between the muscles and fascia in the upper arm consistent with and suspicious for abscesses along with myositis. In the proximal forearm anterolaterally there is a fluid collection at least partially within the brachial radialis and extensor muscles and between these muscles and overlying fascia suspicious for abscess along with adjacent myositis. Question abnormal increased T2 signal in the olecranon not completely assessed on this examination.. No bone erosion. Cannot exclude localized osteomyelitis. The remaining bones throughout the upper and lower extremity appear normal CT Upper extremity with contrast-Left Addendum Date: 04/07/2025 ADDENDUM #1 Addendum: Reactive left axillary lymph nodes. Result Date: 04/07/2025 EXAMINATION: CT left upper extremity without contrast CLINICAL INFORMATION: Abscess evaluation COMPARISON: MRI left humerus dated same day TECHNIQUE: Multiple axial CT images of the left upper extremity are acquired without contrast. Sagittal and coronal reconstructions are provided. 75 mL Omnipaque 300. DOSE LOWERING TECHNIQUES: This CT examination was performed using dose optimization techniques as appropriate, variously including the following: - Automated exposure control - Adjustment of mAand/or kV according to patient size (this includes techniques or standardized protocols for targeted exams where dose is matched to indication/reason for exam; i.e. extremities or head) - Use of iterative construction technique 1676.35 FINDINGS: Within the upper extremity, one appears deep to the biceps musculature there is a peripherally enhancing fluid collection originating approximately 10 cmproximal to the elbow joint and extending to the level of the elbow joint. At its distal aspect the fluid collection appears to extend to the subcutaneous soft tissues. No definite enhancing fluid collection distal to the subcutaneous component distal to the elbow joint. Diffuse subcutaneous soft tissue inflammation of the elbow and forearm. No acute osseous abnormality. Peripherally enhancing fluid collection within the upper extremity, approximately 10 cm proximal tothe elbow joint and extending to the level of the elbow joint. At its distal aspect the fluid collection appears to extend to the subcutaneous soft tissues. No definite enhancing fluid collection distal to the subcutaneous component distal to the elbow joint. Findings are concerning for abscess. CT Extremity Left Archive for Reference Only Result Date: 04/07/2025 This study has been auto finalized and does not contain a result. CT Extremity Left Archive for Reference Only Result Date: 04/07/2025 This study has been auto finalized and does not contain a result. CR Extremity Right Archive for Reference only Result Date: 04/07/2025 This study has been auto finalized and does not contain a result. CT Extremity Right Archive for Reference Only Result Date: 04/07/2025 This study has been auto finalized and does not contain a result. CT Extremity Left Archive for Reference Only Result Date: 04/07/2025 This study has been auto finalized and does not contain a result. CT Extremity Right Archive for Reference Only Result Date: 04/07/2025 This study has been auto finalized and does not contain a result. CT Extremity Right Archive for Reference Only Result Date: 04/07/2025 This study has been auto finalized and does not contain a result. CR Chest Archive for Reference only Result Date: 04/07/2025 This study has been auto finalized and does not contain a result. ZEINAB Archive for reference only CT Result Date: 04/07/2025 This order has been auto-finalized and does not contain a result. Electronically Signed Kari Bain MD General Surgery, PGY-1 04/09/2025 5:16 AM Cosigned by Lucho Donaldson MD at 04/09/2025 11:38 AM EDT * Roderick Boyer MD - 04/09/2025 4:27 AM EDT Orthopedic Surgery Progress Note Assessment & Plan Assessment: Molly Beasley is a 34 y.o. female with a history of IVDU who was admitted as a transfer from OSH to on 04/06/2025 for swelling, erythema, and pain of the right upper extremity after injecting cocaine concerning for deep soft tissue infection. CT of the extremity showed extensive myositis, cellulitis, and several ill-defined abscess throughout the bilateral upper extremities without subcutaneous gas. Blood cultures on 04/02/2025 grew MRSA. She underwent right upper extremity I&D by generalsurgery at OSH on 04/05/2025 without complications. New swelling in the left upper extremity prompted repeat imaging which was concerning for worsening infection. She was subsequently transferred to for further management. Imaging reviewed by the orthopedics team showed soft tissue abscesses in the upper arm and not involving the the joint. Management was deferred to general surgery who took her to the OR on 04/07/2025 for I&D of the right arm and found copious amounts of purulent fluid in the biceps muscle as well as necrotic fascia. The left antecubital area was also incised over a ballotable area with purulent fluid evacuated. Cultures from both sites have grown Staphylococcus aureus. She went back to the OR with general surgery on 04/08/2025 at which time the prior incision to the right arm was extended toward the shoulder with copious purulence encountered. There was a small tract running to the chest w hich was evacuated as well. Interval History Overnight, the trauma team reached out to orthopedics for advise on possible right glenohumeral joint involvement. Patient will be returning to the OR today for repeat I&D. Review of the MRI of the right arm with and without contrast from 04/07/2025 shows extensive rim-enhancing collections throughout the upper arm musculature. The long head of the biceps tendon does not appear to have any obvious peritendinous collection which could be a pathway for the abscess to track proximally into the joint, given that the tendon has an intraarticular origin. The MRI is not the best quality proximally but there is not an obvious intracapsular collection. At bedside this morning, patient is sedated and intubated and therefore unable to provide a reliable exam. I did not appreciate any effusion over the glenohumeral joint or a superficial collection inthe area. Patient has thus far been incised more anteriorly. Since there is involvement in the triceps muscular, I would advise a separate posterior incision to deloculate and drain those abscesses. I would stay out of the glenohumeral joint for now. Patient case and imaging were discussed and reviewed with Dr. Vega this morning as well. Plan(s): Continue surgical and medical management of bilateral upper extremity deep space infection by the general surgery team Advise a posterior incision to drain triceps collections Would stay out of the glenohumeral joint at this time Subjective NA Objective Physical Exam: General: sedated, intubated Lungs: ventilated Extremities: RUE Surgical dressing and packing left in place No obvious effusion or superficial collection proximally over the shoulder LUE Surgical dressing left in place No obvious effusion or superficial collection proximally over the shoulder Signed: Roderick Boyer MD 04/09/25 * Janelle Campbell MD - 04/09/2025 12:00 AM EDT General Surgery Post Operative Note Assessment/Plan Principal Problem: Hand abscess (POA: Yes) Active Problems: Abscess of arm, right (POA: Unknown) Abscess of left arm (POA: Unknown) Lung nodule (POA: Unknown) MRSA bacteremia (POA: Unknown) Infection of wound due to methicillin resistant Staphylococcus aureus (MRSA) (POA: Unknown) 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 female status post Procedure(s) (LRB): INCISION & DRAINAGE (Right). Plan(s): - Pain management: continue current analgesic regimen - Diet: NPO - IVF LR@100 - DVT Prophyalxis: continue current regimen Subjective Patient remains intubated in ICU. Objective Last Vitals Pulse:74,Resp:12,BP:(!) 140/65,SpO2:98 %,Weight:73.7 kg (162 lb 7.7 oz) (verified by ANMOL Thapa) Temp Last 24 hrs: Temp Min: 92.5 ??F (33.6 ??C) Max: 97.7 ??F (36.5 ??C) Intake/Output Summary (Last 24 hours) at 04/09/2025 0059 Last data filed at 04/09/2025 0027 Gross per 24 hour Intake 690.24 ml Output 1270 ml Net -579.76 ml Diet NPO; Meds Relevant data reviewed Notable labs are: White Blood Cell Count Date Value Ref Range Status 04/08/2025 9.4 4.0 - 11.0 Thou/uL Final Hemoglobin Date Value Ref Range Status 04/08/2025 7.2 (L) 11.7 - 15.7 g/dL Final Hematocrit Date Value Ref Range Status 04/08/2025 22.4 (L) 35.0 - 47.0 % Final Platelet Count Date Value Ref Range Status 04/08/2025 390 150 - 450 Thou/uL Final Lab Results Component Value Date NA 138 04/08/2025 K 3.6 04/08/2025 CL 102 04/08/2025 CO2 26 04/08/2025 BUN 10 04/08/2025 CREAT 0.58 04/08/2025 GLUC 100 (H) 04/09/2025 GLUC 83 04/08/2025 Lab Results Component Value Date CALCIUM 7.1 (L) 04/08/2025 MG 2.1 04/08/2025 PHOS 3.5 04/08/2025 No results found for: AST , ALT , ALKPHOS , BILITOT , BILIDIR , ALBUMIN , PROT No results found for: AMYLASE , LIPASE No results found for: PTT , LABPROT , INR Physical Exam Gen: Intubated, unable to participate in exam Card: regular rate and rhythm RUE with omid wrap in place, clean dry and intact. R fingers and hand warm, well perfused, brisk caprefill. LUE: kerlix in place, clean dry and intact, warm, well-perfused. Skin: warm and dry -- General Surgery Janelle Campbell MD PGY1 04/09/2025 12:59 AM * Ani Brown, BABYSITTER - 04/08/2025 9:29 PM EDT [facility] CRITICAL CARE PROGRESS NOTE Shift: 6:00pm-8:00am ICU Attending: Dr. Yarbrough Assessment & Plan The patient remains critically ill/injured and/or remains at high risk for life threatening complications due to: Assessment and Plan reviewed in detail and updated if indicated. Any changes made to plan are reflected below. Unchanged diagnoses remain relevant Acute post-operative pain OUD -Dilaudid infusion 1 mg/h + 1mg IV Q1H PRN -Tylenol 975mg ngt Q6H scheduled -Toradol 15mg IV Q8H scheduled x 15 doses -Methadone 130mg ngt daily (confirmed home maintenance dose) -Methadone clinic: [facility]) -Gabapentin 300mg ngt Q8H -Baclofen 10mg ngt Q8H -COWS monitoring Q4H -Bowel regimen Intubation for airway protection -Ventilator protocol -Propofol for ventilator tolerance -Wean supplemental O2 as tolerated for SpO2 goal > 92% -Albuterol Q6H prn for wheezing MRSA necrotizing soft tissue infection of right upper extremity Right upper extremity abscess 04/08 Debridement of RUE abscess extending to R shoulder and superficial tracts toward R chest/pectoralis major, washout, betadine soaked kerlix packing -ID consulted, appreciate recs -Ortho re-engaged d/t concern for R shoulder joint involvement per EGS -Wound team consulted -RUE dressing changes per surgery -Continue Zosyn -Continue Vanco -Trend fever/WBC curve Acute blood loss anemia -Transfuse to maintain H/H -Trend CBC VTE Time Out IMPROVE SCORE: 0 (04/06/2025 10:21 PM) Interpretation - Low Risk Chemical Prophylaxis heparin (porcine) 5000 unit/mL injection 5,000 Units Subcutaneous Every 8 hours scheduled Heparin Sodium (Porcine) 5000 Units Last dose 04/09/2025 5:37 AM Mechanical Prophylaxis SCDs are ordered - Bilateral (Knee High) STRESS ULCER PROPHYLAXIS: Protonix Indications: coag (plt <50k, INR >1.5 or PTT >2, vent >48 hours, recent GIB<1 yr, Severe TBI (GCS<8 or SCI), thermal calderón >35% BSA, hydrocortisone >250mg QD, pred 60, 10 decadron snf low dose ASA or plavix , therapeutic anticoagulation Restraints: bilateral soft wrist restraints in place to prevent inadvertent removal of necessary medical devices and to maintain patient safety, use reviewed today and remain medically necessary Lines/Devices: All invasive lines discussed during rounds and use reviewed 04/09/25. Central Line Present/Indication: Inadequate Peripheral Access as noted by IV therapy team Arterial Line Present/Indication: No Madeline Present Lynch Present/Indication: Strict I&O ANTIBIOTIC TIME OUT Treatment Indication: NSTI RUE Current antibiotic/day of therapy: Anti-infectives (From admission, onward) Start Dose/Rate Route Frequency Ordered Stop 04/07/25 1030 piperacillin-tazobactam (ZOSYN) 4.5 g in sodium chloride-MBP (NS) 100 mL IVPB-MBP 4.5 g 33.3 mL/hr over 3 Hours Intravenous Every 6 hours 04/07/25 1015 04/07/25 0100 vancomycin (VANCOCIN) 1,250 mg in sodium chloride (NS) 0.9 % 250 mL IVPB-WTD 1,250 mg 166.7 mL/hr over 90 Minutes Intravenous Every 12 hours 04/07/25 0048 04/06/25 2230 vancomycin (VANCOCIN) IV dosing PER PHARMACY PROTOCOL Note to Pharmacy: 04/06 labs at osh - random vancomycin levels at 11 AM was 19.3 unable to get labs now due to poor access. creatinine 0.59, GFR more than 60 Pharmacy Protocol Orders Pharmacy Protocol Orders 04/06/25 2231 Oral antibiotic transition date: tbd Anticipated Stop date: tbd Supportive Microbiology: 04/07 RUE wound cx +MRSA Subjective PMH/PSH: IVDU (OUD on methadone), anxiety, depression Hospital Course: 34 y.o. female with history of IVDU, anxiety, and depression who presented with RUE pain and swelling. She had an I&D of the RUE at an OSH which was closed with suture. On exam, she had significant erythema and induration that extended from the right elbow proximally. CT was done and showed fluid collection tracking from RUE to right chest. 04/07 BUE I&D w/ evacuation of about 1L of purulent fluid. RTOR 04/08 for additional I&D with extension of incision to shoulder, and Pulsavac with 6L fluid, superficial tracts into pectoralis major identified and flushed as well.Post-op pt remained intubated and was admitted to I, CT BUE/chest/neck soft tissues obtained withplan for RTOR 04/09. Shift Events: -Pt arrived from OR -CT BUE, chest, neck soft tissues obtained pending read -Ortho re-engaged d/t EGS concern for possible R shoulder joint involvement Objective/Physical Exam This note encompasses entire shift, physical exam completed at: 2330 Vitals: Pulse:73, Resp:13, BP:BP Min: 122/58 Max: 155/70 MAP: SpO2:99 % CVP: Temp Last 24 hrs: TempMin: 92.3 ??F (33.5 ??C) Max: 97.6 ??F (36.4 ??C) Temp: [92.3 ??F (33.5 ??C)-97.6 ??F (36.4 ??C)] 97.5 ??F (36.4 ??C) Pulse: [61-76] 73 Resp: [1-19] 13 BP: (122-155)/(57-84) 138/62 Neuro/HEENT: Sedation held Opens eyes to voice, tracks, nods head to questions, confused, follows to move all extremities Behavioral/Sedation scales: CAM-ICU Delirium Present: Positive Salmon Agitation Sedation Scale (RASS) / Modified RASS: +1-->restless Cardiac: RRR, S1/S2, no murmur Telemetry reviewed for past 24h and shows: NSR QTc: 480 Extremities: Warm, well perfused, 1+ edema Pulmonary: Lung sounds are clear to auscultation, ETT in place Gastrointestinal: Abdomen soft, non-distended, non-tender to palpation, +BS : Urinary catheter Draining clear yellow urine Musculoskeletal: RUE with bulky dressing over betadine-soaked kerlix, motor and sensory intact, 2+edema of fingers Data/Lab Values DRIPS/MEDICATIONS lactated ringers, 100 mL/hr, Last Rate: 100 mL/hr (04/09/25 0700) HYDROmorphone, 1 mg/hr, Last Rate: 1 mg/hr (04/09/25 0700) propofol, 5-75 mcg/kg/min, Last Rate: 55 mcg/kg/min (04/09/25 0754) CV: Temp: [92.3 ??F (33.5 ??C)-97.6 ??F (36.4 ??C)] 97.5 ??F (36.4 ??C) Pulse: [61-76] 73 Resp: [1-19] 13 BP: (122-155)/(57-84) 138/62 Recent Labs 04/08/25211404/09/25 0324 CKTOTAL 138 97 Recent Labs 04/08/25211404/09/25 0324 CKTOTAL 138 97 PULM: RR: 13,SpO2:99 % Ventilation Mode (Drager): VC-SIMV (invasive) Rate Set (breaths/min) (Drager): 12 Tidal Volume Set (mL) (Drager): 400 Oxygen Concentration (%) (Drager): 40 PEEP (cmH2O) (Drager): 8 GI/NUTRITION: Diet NPO; Meds Recent Labs 04/08/252114 TRIG 234* RENAL: No intake/output data recorded. Intake/Output Summary (Last 24 hours) at 04/09/2025 0820 Last data filed at 04/09/2025 0700 Gross per 24 hour Intake 6960.77 ml Output 2415 ml Net 4545.77 ml Recent Labs 04/08/2552904/08/25211404/09/25323 NA 140 138 141 K 3.7 3.6 3.4 CO2 31 26 29 CL 101 102 105 BUN 10 10 10 CREAT 0.51 0.58 0.66 CALCIUM 7.0* 7.1* 7.4* MG 2.1 2.1 2.1 PHOS 3.5 3.5 3.7 Calcium, Ionized Date Value Ref Range Status 04/08/2025 1.05 (L) 1.17 - 1.33 mmol/L Final Recent Labs 04/08/252114 LACTIC 1.1 HEME: Recent Labs 04/08/2552904/08/25211404/09/25323 HCT 25.1* 22.4* 21.7* HGB 8.0* 7.2* 7.0* WBC 15.0* 9.4 12.3* PLT 392 [id number] 418 ID: Temp Min: 92.3 ??F (33.5 ??C) Max: 97.6 ??F (36.4 ??C) Recent Labs 04/08/25 0504/08/25211404/09/25 032 WBC 15.0* 9.4 12.3* Cultures: See micro in EPIC ENDOCRINE: Results from last 7 days Lab Units 04/09/25 0759 04/09/25 0345 04/09/25 0324 04/09/25 0036 04/08/258 04/08/25211404/08/25 0530 GLUCOSE mg/dL -- -- 77 -- -- 83 127* GLUCOSE, POC mg/dL 74 78 -- 100* 92 -- -- LINES/DRAINS/TUBES: All invasive lines discussed during rounds and use reviewed 04/09/25. Central Venous Catheter Central Line - Single Lumen 04/07/25 1500 internal jugular vein, right (Active) Number of days: 1 Indication: Caustic medications and More access needed Lynch Urethral Catheter (Adult) 04/08/252017 latex 16 Fr 10 mL balloon size 10 mL balloon inflation volume (Active) Number of days: 0 Indication: Strict I/O Relevant data reviewed: I have reviewed all past medical history, all past surgical history, allergies, home medications, and inpatient data since admission. Imaging Studies: All interval imaging reviewed. CXR Image reviewed KUB Image reviewed Family Update: No family present at bedside at time of exam. Critical Care time spent in multiple visits throughout the day for collaboration/coordination of care exclusive of time spent performing separately billable medical procedures is 70 minutes. Patient seen and examined. Chart and clinical information reviewed. Previous notes and lab data reviewed. Case discussed with ICU attending, ICU team, primary team, available consultants and the patient's family when available. Of note, some information is being carried forward from prior records for informational purposes only and is being cited so that efficiency, safety and quality of this patient's care is not compromised. Activities included: Chart/data review, Documentation, Medication orders/management, Titration of medications, Collaborating with consultants, Care, transfer of care and discharge plans, Interpreting/reviewing radiologic studies, Reviewing RN notes/previous records, Ventilator management, Vital sign assessments, and Interpreting/reviewing lab tests Plan of care reviewed with ICU attending and in agreement with above. Signature Ani Brown APRN 8:20 AM 04/09/2025 * [facility] [place] [facility] - 04/08/2025 4:20 PM EDT Pharmacokinetic Consult - Vancomycin Follow Up Note Molly Beasley is a 34 y.o. female currently receiving vancomycin 1250 mg IV every 12 hours for bacteremia. Assessment: Analysis of the most recent level(s) using XMOS gives the following patient-specific pharmacokinetic parameters: CL: 5.02 L/hr V: 49.1 L T 1/2: 7.17 hours Using these values, the current vancomycin regimen is predicted to result in an AUC24 of 498 (correlated steady-state trough of 12.2 mcg/mL), which is within target AUC of 400-600. At this time, we will continue current regimen. The pharmacy team will plan to obtain the next level within 5 days or sooner if clinically indicated. Pharmacy will continue to follow the patient's renal function, culture results, and clinical progress daily. Labs: Creatinine Date/Time Value Ref Range Status 04/08/2025 05:30 AM 0.51 0.40 - 1.10 mg/dL Final Blood Urea Nitrogen (BUN) Date/Time Value Ref Range Status 04/08/2025 05:30 AM 10 8 - 21 mg/dL Final Vancomycin, Random Date/Time Value Ref Range Status 04/08/2025 02:05 PM 17 mg/L Final Comment: No reference range established for random levels. Estimated Creatinine Clearance: 144 mL/min (by C-G formula based on SCr of 0.51 mg/dL). [place] RPH * Monica Adams RN - 04/08/2025 10:01 AM EDT 04/08/25 0922 General Information Admission Type inpatient Arrived From Hospital Initial Information How to be Addressed Yasmin Source of Information patient;other (see comments) (s/o) Limitations on Visitors/Phone Calls none Designated Caregiver for Discharge Coordination Do You Have a Designated Caregiver for Discharge? 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 Resource/Environmental Concerns Resource/Environmental Concerns none Transportation Concerns none Disability/Function Hearing Difficulty or Deaf no Visual Difficulty or Blind no Walking or Climbing Stairs Difficulty no Dressing/Bathing Difficulty no Difficulty Managing Errands Independently no Equipment Currently Used at Home none Change in Functional Status Since Onset of Current Illness/Injury yes Functional Status Usual Activity Tolerance good Current Activity Tolerance poor Functional Status, IADL Medications independent Meal Preparation independent Housekeeping independent Laundry independent Shopping independent Housing Stability In the last 12 months, was there a time when you were not able to pay the mortgage or rent on time?N In the past 12 months, how many times have you moved where you were living? 0 At any time in the past 12 months, were you homeless or living in a chcf (including now)? N Food Insecurity Within the past 12 months, you worried that your food would run out before you got the money to buymore. Never true Within the past 12 months, the food you bought just didn't last and you didn't have money to get more. Never true Transportation Needs In the past 12 months, has lack of transportation kept you from medical appointments or from getting medications? no In the past 12 months, has lack of transportation kept you from meetings, work, or from getting things needed for daily living? No Utilities In the past 12 months has the [employer] gas, oil, or water [employer] threatened to shut off services in your home? No Interpersonal Safety Within the last year, have you been humiliated or emotionally abused in other ways by anyone? No Within the last year, have you been kicked, hit, slapped, or otherwise physically hurt by anyone? No Discharge Needs Assessment Readmission Within the Last 30 Days no previous admission in last 30 days Current Outpatient/Agency/Support Group outpatient substance abuse treatment Patient/Family Anticipates Transition to other (see comments) (SNF) Patient/Family Anticipated Services at Transition [facility];outpatient care;mental health services;biomedical scientist;durable medical equipment Transportation Anticipated health plan transportation Discharge Facility/Level of Care Needs nursing facility, skilled Discharge Coordination/Tasks Status Post Discharge Needs/Treatments Alf Home Visit;IV Medications;OT;PT;Wound Care Patient/Patient Datapower Consultant Provided With Choices Of Facility Preference(s);Homecare Company Preferences(s) Facility Preference(s) [facility], [facility], [facility], [facility], [facility], [facility] Preference(s) [facility], [facility], [facility], [facility], [facility] Insurance Benfits/Coverage Discussed with Patient Plan Plan STR vs home with HC Patient/Family in Agreement with Plan yes * Anisa Perez MD - 04/08/2025 9:33 AM EDT Images from the original note were not included. [facility] ID Progress Note Name: Molly Beasley Age: 34 y.o. Sex: female ASSESSMENT & PLAN Assessment: 34-year-old female with history of active IV drug use, history of xylazine infection, depression, anxiety, transferred to [facility] from OSH on 04/06 for concern of right upper extremity abscess. Patient initially presented to OSH on 04/02 with redness/swelling of the right upper extremity in the setting of active IV cocaine use, underwent formal I&D on 04/05 of the right antecubital fossa. Repeat imaging of the forearm on 04/06 at OSH demonstrated developing abscess within the biceps muscle with concern for possible necrotizing fasciitis without soft tissue gas. CT scan of the left forearm demonstrated partially visualized abscess in the antecubital fossa and synovitis in the wrist. At OSH, 2 /2 blood cultures came back positive number of MRSA on 04/02. At [facility], patient was febrile 200.6, currently on vancomycin, evaluated by orthopedics and general surgery. IDwas consulted on 04/07 1. Right upper extremity abscess in the setting of active IV drug use, now postop day #1 s/p right upper extremity I&D, 1 notes reviewed which showed evacuation of about 1 L of purulent fluid, Gram stain shows gram-positive cocci, ID and susceptibilities pending 2. MRSA bacteremia @ OSH -2/2 blood cultures positive at OSH on 04/02 -2D Echo OSH was negative for vegetations 3. History of active IV drug use, uses bundle of fentanyl every day. On methadone 130 mg 4. Antibiotics -Vancomycin 04/07 -Zosyn, 04/07 -Clindamycin x 1, 04/07 recommendations: Plan for return to the OR today for second look noted 1. Continue vancomycin IV/Zosyn 2. Follow OR cultures 3. Blood cultures were ordered yesterday, but not drawn, will reorder 4. Addiction medicine input Pain management on board ANTIBIOTIC TIME OUT Current antibiotic/day of therapy: Anti-infectives (From admission, onward) Start Dose/Rate Route Frequency Ordered Stop 04/07/25 1030 piperacillin-tazobactam (ZOSYN) 4.5 g in sodium chloride-MBP (NS) 100 mL IVPB-MBP 4.5 g 33.3 mL/hr over 3 Hours Intravenous Every 6 hours 04/07/25 1015 04/07/25 0100 vancomycin (VANCOCIN) 1,250 mg in sodium chloride (NS) 0.9 % 250 mL IVPB-WTD 1,250 mg 166.7 mL/hr over 90 Minutes Intravenous Every 12 hours 04/07/25 0048 04/06/25 2230 vancomycin (VANCOCIN) IV dosing PER PHARMACY PROTOCOL Note to Pharmacy: 04/06 labs at osh - random vancomycin levels at 11 AM was 19.3 unable to get labs now due to poor access. creatinine 0.59, GFR more than 60 Pharmacy Protocol Orders Pharmacy Protocol Orders 04/06/25 2231 OBJECTIVE Physical Examination: Vitals: 04/08/25 0400 BP: 138/79 Pulse: 69 Resp: 18 Temp: (!) 95.6 ??F (35.3 ??C) SpO2: 96% Weight: Height: General appearance - female On room air. Laying in bed quietly Lungs: Clear to auscultation anteriorly Cardiovascular: Rate rhythm regular Extremities: Right arm with dressing/Omid bandage in place. Swelling of the right hand with improvedrange of movement as compared with yesterday Left upper extremity with dressing in place. Swelling of the left hand LABORATORY AND DIAGNOSTIC DATA: Lab and imaging data were reviewed by me Results from last 7 days Lab Units 04/08/25 0530 WHITE BLOOD CELL COUNT Thou/uL 15.0* HEMOGLOBIN g/dL 8.0* HEMATOCRIT % 25.1* PLATELET COUNT Thou/uL 392 Results from last 7 days Lab Units 04/08/25 0530 SODIUM mmol/L 140 POTASSIUM mmol/L 3.7 CHLORIDE mmol/L 101 CO2 mmol/L 31 BUN mg/dL 10 CREATININE mg/dL 0.51 CALCIUM mg/dL 7.0* GLUCOSE mg/dL 127* EGFR >90 Blood Cultures: Lab Results Component Value Date CULTURE PENDING 04/07/2025 CULTURE 04/07/2025 No fungi isolated. Culture will be held for two weeks. CULTURE PENDING 04/07/2025 Imaging Studies XR Chest 1 view-Portable Result Date: 04/08/2025 EXAMINATION: XR CHEST CLINICAL INFORMATION: Confirmation of IJ COMPARISON: Chest radiograph 04/02/2025 TECHNIQUE: Frontal view of the chest was obtained. FINDINGS: Right IJ CVC projects over the cavoatrial junction. Lungs are hypoexpanded. Asymmetric elevation of the right hemidiaphragm. Subsegmental atelectasis in the right lung base. No focal consolidation. Mild blunting of the right costophrenic sulcus. Cardiomediastinal silhouette is similar to prior. No acute osseous findings. 1. Right IJ CVC projects over the cavoatrial junction. No postprocedural pneumothorax. 2. Subsegmental atelectasis in the right lung base. 3. Possible trace right pleural effusion. Interpreted by: Emilee Casas MD Natural Gas Engineer I personally reviewed the images and the resident's preliminaryreport and AGREE with the report as it is now presented ([id number]). MRI Arm w w/o contrast-Lower right Result Date: 04/07/2025 EXAMINATION: MR UPPER EXTREMITY NON JOINT WITHOUT AND WITH CONTRAST, HUMERUS, RIGHT MRI OF THE UPPER EXTREMITY NONJOINT WITHOUT AND WITH CONTRAST FOREARM, RIGHT CLINICAL INFORMATION: Right arm abscess. COMPARISON: Multiple prior examinations most recent CT upper extremity exam April 07, 2025. TECHNIQUE: MRI of the right upper extremity/humerus was performed without and with contrast on a high-field MRI scanner. MRI of the right upper extremity/forearm was performed without and with contrast joy high-field MRI scanner. Contrast 7.5 mL of Magnevist contrast given intravenously during both portions of the exam. FINDINGS: Exam is significantly limited because of difficulties positioning the patient and patient movement. Additionally axial T2-weighted sequences of the forearm and axial T1-weighted sequences of the upper arm humerus could not be obtained. RIGHT UPPER EXTREMITY/HUMERUS: As noted on the CT examination again noted is a lobulated fluid collection extending along the deep surface of the pectoralis major muscle, coracobrachialis extending into the axilla with enhancement of the surrounding tissues. This is suspicious for an evolving abscess. The noted fluid collections above are continuous with the biceps muscle both within the muscle and surrounding the muscle deep to the fascia throughout the anterior compartment and extending the length of the upper extremity to the level of the proximal portion of the distal biceps tendon. Additional mild increased T2 signal and enhancement of the muscles compatible with generalized myositis. The fluid anterior to the anterior compartment deep to the fascia measures up to 1 cm. Also again noted is fluid extending between the teres minor and triceps muscles proximally and extending distally within the posterior compartment deep to the fascia surrounding and partially compressing the triceps muscles. The appearance is suspicious for subfascial abscess between the fascia and triceps muscles. This extends the length of the triceps muscles. This collection measures up to 1.6 cm anterior to posterior. Mild heterogeneous abnor mal signal and enhancement of the muscles compatible with myositis. There is generalized fluid signal in the subcutaneous soft tissues with partial enhancement compatible with a combination of edema and cellulitis throughout the upper arm. Osseous structures: Normal. No abnormal marrow signal. RIGHT UPPER EXTREMITY/FOREARM: As in the upper extremity there is feathery-appearing fluid- like signal noted throughout the forearm with partial enhancement compatible with a combination of edema and cellulitis. There is a lobulated fluid collection at least partially within the brachialradialis muscle and adjacent extensor muscles proximally beginning at the elbow joint and extending to the forearm over approximately 9 cm craniocaudal, 5 cm transverse and 1 cm AP. The collection appears to extend outside of the muscle deep to the fascia as it extends distally. There is heterogeneous enhancement of the noted muscles compatible with myositis. Remaining muscles of the forearm do not demonstrate any definite enhancement. Full evaluation is limited as we were unable to obtain T2-weighted sequences. No additional visible muscle collection noted. Osseous structures: There is possible ill-defined increased T2 signal in the olecranon which is not completely imaged throughout the examination in multiple planes Exam is significantly limited because of difficulties positioning the patient and patient movement.Diffuse generalized abnormality in the subcutaneous soft tissues throughout the right chest, upper arm and forearm compatible with a combination of edema and cellulitis and myositis. As seen on priorCT there are lobulated confluent fluid collections evolving multiple muscle groups and compartmentsas detailed above including the pectoralis major as well as extending distally within anterior and posterior compartment muscles and between the muscles and fascia in the upper arm consistent with and suspicious for abscesses along with myositis. In the proximal forearm anterolaterally there is a fluid collection at least partially within the brachial radialis and extensor muscles and between these muscles and overlying fascia suspicious for abscess along with adjacent myositis. Question abnormal increased T2 signal in the olecranon not completely assessed on this examination.. No bone erosion. Cannot exclude localized osteomyelitis. The remaining bones throughout the upper and lower extremity appear normal MRI Arm w w/o contrast-Upper right Result Date: 04/07/2025 EXAMINATION: MR UPPER EXTREMITY NON JOINT WITHOUT AND WITH CONTRAST, HUMERUS, RIGHT MRI OF THE UPPER EXTREMITY NONJOINT WITHOUT AND WITH CONTRAST FOREARM, RIGHT CLINICAL INFORMATION: Right arm abscess. COMPARISON: Multiple prior examinations most recent CT upper extremity exam April 07, 2025. TECHNIQUE: MRI of the right upper extremity/humerus was performed without and with contrast on a high-field MRI scanner. MRI of the right upper extremity/forearm was performed without and with contrast joy high-field MRI scanner. Contrast 7.5 mL of Magnevist contrast given intravenously during both portions of the exam. FINDINGS: Exam is significantly limited because of difficulties positioning the patient and patient movement. Additionally axial T2-weighted sequences of the forearm and axial T1-weighted sequences of the upper arm humerus could not be obtained. RIGHT UPPER EXTREMITY/HUMERUS: As noted on the CT examination again noted is a lobulated fluid collection extending along the deep surface of the pectoralis major muscle, coracobrachialis extending into the axilla with enhancement of the surrounding tissues. This is suspicious for an evolving abscess. The noted fluid collections above are continuous with the biceps muscle both within the muscle and surrounding the muscle deep to the fascia throughout the anterior compartment and extending the length of the upper extremity to the level of the proximal portion of the distal biceps tendon. Additional mild increased T2 signal and enhancement of the muscles compatible with generalized myositis. The fluid anterior to the anterior compartment deep to the fascia measures up to 1 cm. Also again noted is fluid extending between the teres minor and triceps muscles proximally and extending distally within the posterior compartment deep to the fascia surrounding and partially compressing the triceps muscles. The appearance is suspicious for subfascial abscess between the fascia and triceps muscles. This extends the length of the triceps muscles. This collection measures up to 1.6 cm anterior to posterior. Mild heterogeneous abnor mal signal and enhancement of the muscles compatible with myositis. There is generalized fluid signal in the subcutaneous soft tissues with partial enhancement compatible with a combination of edema and cellulitis throughout the upper arm. Osseous structures: Normal. No abnormal marrow signal. RIGHT UPPER EXTREMITY/FOREARM: As in the upper extremity there is feathery-appearing fluid- like signal noted throughout the forearm with partial enhancement compatible with a combination of edema and cellulitis. There is a lobulated fluid collection at least partially within the brachialradialis muscle and adjacent extensor muscles proximally beginning at the elbow joint and extending to the forearm over approximately 9 cm craniocaudal, 5 cm transverse and 1 cm AP. The collection appears to extend outside of the muscle deep to the fascia as it extends distally. There is heterogeneous enhancement of the noted muscles compatible with myositis. Remaining muscles of the forearm do not demonstrate any definite enhancement. Full evaluation is limited as we were unable to obtain T2-weighted sequences. No additional visible muscle collection noted. Osseous structures: There is possible ill-defined increased T2 signal in the olecranon which is not completely imaged throughout the examination in multiple planes Exam is significantly limited because of difficulties positioning the patient and patient movement.Diffuse generalized abnormality in the subcutaneous soft tissues throughout the right chest, upper arm and forearm compatible with a combination of edema and cellulitis and myositis. As seen on priorCT there are lobulated confluent fluid collections evolving multiple muscle groups and compartmentsas detailed above including the pectoralis major as well as extending distally within anterior and posterior compartment muscles and between the muscles and fascia in the upper arm consistent with and suspicious for abscesses along with myositis. In the proximal forearm anterolaterally there is a fluid collection at least partially within the brachial radialis and extensor muscles and between these muscles and overlying fascia suspicious for abscess along with adjacent myositis. Question abnormal increased T2 signal in the olecranon not completely assessed on this examination.. No bone erosion. Cannot exclude localized osteomyelitis. The remaining bones throughout the upper and lower extremity appear normal CT Upper extremity with contrast-Left Addendum Date: 04/07/2025 Result Date: 04/07/2025 EXAMINATION: CT left upper extremity without contrast CLINICAL INFORMATION: Abscess evaluation COMPARISON: MRI left humerus dated same day TECHNIQUE: Multiple axial CT images of the left upper extremity are acquired without contrast. Sagittal and coronal reconstructions are provided. 75 mL Omnipaque 300. DOSE LOWERING TECHNIQUES: This CT examination was performed using dose optimization techniques as appropriate, variously including the following: - Automated exposure control - Adjustment of mAand/or kV according to patient size (this includes techniques or standardized protocols for targeted exams where dose is matched to indication/reason for exam; i.e. extremities or head) - Use of iterative construction technique 1676.35 FINDINGS: Within the upper extremity, one appears deep to the biceps musculature there is a peripherally enhancing fluid collection originating approximately 10 cmproximal to the elbow joint and extending to the level of the elbow joint. At its distal aspect the fluid collection appears to extend to the subcutaneous soft tissues. No definite enhancing fluid collection distal to the subcutaneous component distal to the elbow joint. Diffuse subcutaneous soft tissue inflammation of the elbow and forearm. No acute osseous abnormality. Peripherally enhancing fluid collection within the upper extremity, approximately 10 cm proximal tothe elbow joint and extending to the level of the elbow joint. At its distal aspect the fluid collection appears to extend to the subcutaneous soft tissues. No definite enhancing fluid collection distal to the subcutaneous component distal to the elbow joint. Findings are concerning for abscess. CT Upper extremity with contrast-Right Result Date: 04/07/2025 EXAMINATION: CT UPPER EXTREMITY WITH CONTRAST, RIGHT CLINICAL INFORMATION: Concern for soft tissue infection of entire right upper extremity. COMPARISON: Outside CTA of the right upper extremity April 02, 2025. TECHNIQUE: CT scan of the right upper extremity was performed with contrast. Reconstruction imaging performed at the acquisition workstation. Contrast dose 80 mL of Omnipaque [address] examination was performed using dose optimization techniques as appropriate, variously including the o patient size (this includes techniques or standardized protocols for targeted exams where dose is matched to indication/reason for exam; i.e. extremities or head) *Use of iterative reconstruction technique DLP: 1068 mGy-cm FINDINGS The large [id number] and positioning limits evaluation. Subcutaneous soft tissues: There is feathery- appearing fluid-like density noted throughout including the right chest wall and into the right side of the abdomen, as well as circumferentially about the shoulder region, right upper extremity, right forearm and into the hand. No gas noted. MUSCLES/TENDONS: Right shoulder and chest region: There is ill-defined lobulated fluid extending within and along the superficial and deep surface of the pectoralis major and minor, coracobrachialis and teres major. In the upper arm, there is additional fluid extension and involvement of the anterior compartment muscles including the biceps, brachialis and brachioradialis along with the overlying subcutaneous soft tissues. There is also fluid extending along the outer aspect of the triceps muscles deep to the fascia the length of the muscle in the upper extremity. In the forearm and hand, there is no definite involvement of the muscles although there is extensive feathery-appearing fluid-like density in the subcutaneous soft tissues. The osseous structures are intact. The chest is also included in the examination. Numerous lymph nodes present within the axilla, likely reactive. There is consolidation in the right lower lobe and a right pleural effusion. 1. Extensive fluid-like density throughout the subcutaneous soft tissues of the right chest wall, right abdominal wall, right upper extremity and right forearm and hand. This is nonspecific but couldreflect edema, cellulitis or a combination of these. This appears to have progressed compared with outside imaging of the right upper extremity dating back to April 02, 2025. 2. There is fluid extending within and along the superficial and deep surface muscles and muscle groups in the right chest/chest wall and right upper extremity compatible with myositis and likely evolving phlegmon or abscesses which has progressed compared with prior outside imaging dating back to April 02, 2025. See details above. No definite involvement of the muscles in the forearm and hand 3. Right lower lobe consolidation and right pleural effusion. CT Extremity Left Archive for Reference Only Result Date: 04/07/2025 This study has been auto finalized and does not contain a result. CT Extremity Left Archive for Reference Only Result Date: 04/07/2025 This study has been auto finalized and does not contain a result. CR Extremity Right Archive for Reference only Result Date: 04/07/2025 This study has been auto finalized and does not contain a result. CT Extremity Right Archive for Reference Only Result Date: 04/07/2025 This study has been auto finalized and does not contain a result. CT Extremity Left Archive for Reference Only Result Date: 04/07/2025 This study has been auto finalized and does not contain a result. CT Extremity Right Archive for Reference Only Result Date: 04/07/2025 This study has been auto finalized and does not contain a result. CT Extremity Right Archive for Reference Only Result Date: 04/07/2025 This study has been auto finalized and does not contain a result. CR Chest Archive for Reference only Result Date: 04/07/2025 This study has been auto finalized and does not contain a result. ZEINAB Archive for reference only CT Result Date: 04/07/2025 This order has been auto-finalized and does not contain a result. ZEINAB Archive for reference only CT Result Date: 04/07/2025 This order has been auto-finalized and does not contain a result. CT Extremity Left Archive for Reference Only Result Date: 04/07/2025 This study has been auto finalized and does not contain a result. CT Extremity Left Archive for Reference Only Result Date: 04/07/2025 This study has been auto finalized and does not contain a result. CT Extremity Right Archive for Reference Only Result Date: 04/07/2025 This study has been auto finalized and does not contain a result. CR Chest Archive for Reference only Result Date: 04/07/2025 This study has been auto finalized and does not contain a result. CT Extremity Left Archive for Reference Only Result Date: 04/07/2025 This study has been auto finalized and does not contain a result. CT Extremity Right Archive for Reference Only Result Date: 04/07/2025 This study has been auto finalized and does not contain a result. CT Extremity Right Archive for Reference Only Result Date: 04/07/2025 This study has been auto finalized and does not contain a result. CR Extremity Right Archive for Reference only Result Date: 04/07/2025 This study has been auto finalized and does not contain a result. Current Medications: Current Medications[1] ALLERGIES: Allergies[2] I reviewed the prescribed Medications and new Laboratory Blood Work. Monitor for drug related adverse effects.>50 min spent in reviewing records, labs, imaging, coordination and formulation of plan of care I reviewed all new Imaging Studies (actual images) and compared to prior where applicable Of note, some information is being carried forward from prior records for informational purposes only and is being cited so that efficiency, safety and quality of this patient's care is not compromised This report was generated using [employer] dictation software. Although every attempt has been made by the provider to proofread this document, occasional misspellings and typographical errors Sign Anisa Perez MD, FIDSA, FACP [facility] Infectious Diseases Available via [employer] 04/08/2025 9:33 AM [1] Current Facility-Administered Medications Medication Dose Route Frequency Provider Last Rate Last Admin lactated ringers (LR) infusion 100 mL/hr Intravenous Continuous Clarice Etskovitz, DO 100 mL/hr at 04/07/25 1640 100 mL/hr at 04/07/25 1640 acetaminophen (TYLENOL) tablet 975 mg 975 mg Oral Q8H HANNAH Bain MD baclofen (LIORESAL) tablet 10 mg 10 mg Oral TID Kari Bain MD bisacodyl (DULCOLAX) suppository 10 mg 10 mg Rectal Daily PRN Clarice Hernandez DO chlorhexidine gluconate 2 % wipes - daily CHG application Topical Daily Bo Dhaliwal MD 1 each at 04/08/25 0837 gabapentin (NEURONTIN) capsule 300 mg 300 mg Oral TID Kari Bain MD heparin (porcine) 5000 unit/mL injection 5,000 Units 5,000 Units Subcutaneous Q8H HANNAH Bain MD 5,000 Units at 04/08/25 0837 HYDROmorphone (DILAUDID) tablet 4 mg 4 mg Oral Q3H PRN Kari Bain MD Or HYDROmorphone (DILAUDID) tablet 6 mg 6 mg Oral Q3H PRN Kari Bain MD ketorolac (TORADOL) injection 30 mg 30 mg Intravenous Q8H PRN Clarice Hernandez DO 30 mg at 712 methadone (DOLOPHINE) tablet 130 mg 130 mg Oral Daily Clarice Hernandez DO 130 mg at 04/08/25 0837 naloxone (NARCAN) 0.4 mg/mL injection 0.4 mg 0.4 mg Intravenous Q5 Min PRN Clarice Hernandez DO ondansetron (ZOFRAN) injection 4 mg 4 mg Intravenous Q6H PRN Clarice Hernandez DO piperacillin-tazobactam (ZOSYN) 4.5 g in sodium chloride-MBP (NS) 100 mL IVPB- MBP 4.5 g [id number] Clarice Hernandez DO Stopped at 04/08/25 0912 potassium chloride IVPB 10 mEq in 100 mL SW (premix) 10 mEq Intravenous Q1H Kari Bain MD senna-docusate (SENNA-S) 8.6-50 MG tablet 2 tablet 2 tablet Oral Nightly Clarice Hernandez DO vancomycin (VANCOCIN) IV dosing PER PHARMACY PROTOCOL Pharmacy Protocol Orders Pharmacy Protocol Orders Clarice Hernandez DO vancomycin (VANCOCIN) 1,250 mg in sodium chloride (NS) 0.9 % 250 mL IVPB-WTD 1,250 mg Intravenous Q12H Clarice Hernandez DO Stopped at 04/08/25 0716 [2] No Known Allergies * Rodriguez Hodge PharmD - 04/08/2025 8:56 AM EDT Patient: Molly Beasley Date: 04/08/25 Pain Management - Follow-Up Assessment: Patient is a 34 y/o F with a h/o IVDU, anxiety, and depression who presented with RUE pain and swelling. CT was done and showed fluid collection tracking from RUE to right chest. She is now POD1 s/p RUE I&D with plans to return to the OR today per notes. As an outpatient she reports using methadone 130 mg PO daily and injecting about a bundle of fentanyl per day. She currently complains of stinging burning pain in her right upper arm. She received Dilaudid 1 mg IV x4 doses, Tylenol PRN, ketorolac 30 mg IV q8h PRN x1 dose, and methadone 130 mg daily. She reports being able to taste the saline when Dilaudid IV doses are given which she doesn't like and also isn't finding much relief with them. She denies dizziness or nausea. Her BP is stable, SCr is 0.5, QTc 428 ms. Plan: - As she is able to tolerate PO, consider changing Dilaudid IV to Dilaudid 4-6 mg PO q3h PRN which would be an increase in equivalent dose which patient is agreeable with. - Consider starting gabapentin 300 mg PO TID as most of her pain appears to be neuropathic. - Consider starting baclofen 10 mg PO TID - Consider scheduling Tylenol 975 mg PO q8h - If ok with primary team, consider scheduling ketorolac 15 mg IV q6h ATC Rodriguez Hodge PharmD * Gerard Anand MD - 04/08/2025 6:29 AM EDT Orthopedic Surgery Progress Note Patient: Molly Beasley Age: 34 y.o. 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 female with past medical history of IV drug use who was transferred to [facility] yesterday for concern for right upper extremity abscess-- Now postop day 1 status post bilateral upper extremity I&D's by general surgery team. Right upper extremity biceps rupture noted intraaop by gen surg team--no orthoo intervention for this, will manage nonoperatively in context of concurrent infection. Continued management of right upper extremity infections/abscesses at discretion of general surgeryteam. Reach out to Ortho if any questions or assistance needed as we are happy to help. Appreciate continued care by them. Otherwise Ortho signing off at this time. Plan(s): -- Management of bilateral upper extremity infection/abscesses at discretion of general surgery team -- Reach out to Ortho if any questions or assistance needed as we are happy to help. Otherwise ortho signing off at this time Subjective Bilateral upper extremity pain this morning. No fevers or chills. No numbness or tingling. Objective Last Vitals: Pulse:69,Resp:18,BP:138/79,SpO2:96 %,Weight:73.7 kg (162 lb 7.7 oz) (verified by ANMOL Thapa) Temp Last 24 hrs: Temp Min: 95.6 ??F (35.3 ??C) Max: 99.4 ??F (37.4 ??C) Last temp: (!) 95.6 ??F (35.3 ??C) (Tympanic) Diet: Diet NPO; Meds I/O: Date 04/07/25699 - 04/08/25 0659 04/08/25699 - 04/09/25 0659 Shift 1001-1711 3708-9902 4267-3708 24 Hour Total 7412-5145 3538-4672 0089-7789 24 Hour Total INTAKE I.V.(mL/kg) 3(0) 1006(13.7) 1009(13.7) IV Piggyback 250 250 Shift Total(mL/kg) 3(0) 1256(17) 1259(17.1) OUTPUT Blood 200 200 Shift Total(mL/kg) 200(2.7) 200(2.7) Weight (kg) 73.7 73.7 73.7 73.7 73.7 73.7 73.7 73.7 Physical Exam: General: NAD, resting comfortably in bed, alert and oriented x3 Lungs: unlabored breathing Extremities: Right Upper Extremity: Swelling in right forearm hand/wrist although no fluctuance. Full active wrist range of motion without pain. Dressing: Clean dry and intact Fires EPL, FPL, EDC, SAMMY, able to make a fist Sensation intact light touch over median, radial, ulnar nerve distribution Brisk capillary refill Left Upper Extremity: Dressing: Clean dry and intact Fires EPL, FPL, EDC, SAMMY, able to make a fist Sensation intact light touch over median, radial, ulnar nerve distribution Brisk capillary refill Labs: Recent Labs 04/08/25 0530 HCT 25.1* HGB 8.0* Signed: Gerard Anand MD 04/08/25 6:29 AM * Kari Bain MD - 04/08/2025 5:45 AM EDT Daily General Surgery Progress Note Assessment & Plan Molly Beasley is a 34 y.o. female with history of IVDU, anxiety, and depression who presented withRUE pain and swelling. She had an I&D of the RUE at an OSH which was closed with suture. On exam, she had significant erythema and induration that extended from the right elbow proximally. CT wasdone and showed fluid collection tracking from RUE to right chest. She is now POD1 s/p BUE I&D. There was evacuation of about 1L of purulent fluid. Plan for return to OR today for second look with ortho. 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 Right arm and hand pain have improved. She has better range of motion and sensation in right hand now. Denies left arm pain or paraesthesias. Pain currently well controlled. Denies nausea and vomiting. Did not eat or drink anything after surgery. Objective Last Vitals Pulse:69,Resp:18,BP:138/79,SpO2:96 %,Weight:73.7 kg (162 lb 7.7 oz) (verified by ANMOL Thapa) Temp Last 24 hrs: Temp Min: 95.6 ??F (35.3 ??C) Max: 99.4 ??F (37.4 ??C) Last temp: (!) 95.6 ??F (35.3 ??C) (Tympanic) Intake/Output Summary (Last 24 hours) at 04/08/2025 0545 Last data filed at 04/07/2025 1632 Gross per 24 hour Intake 1259 ml Output 200 ml Net 1059 ml Physical Exam Gen: alert, no acute distress Card: regular rate Pulm: normal effort of breathing with no signs of acute respiratory distress Right extremity: surgical dressing in place, no drainage on dressing. Tenderness to hand, forearm, upper arm, axilla, and lateral chest wall but she says this is decreased from prior Left extremity: surgical dressing in place. No drainage on dressing. Tenderness around incision andto forearm and hand. Improved sensation and motor function Skin: warm and dry VTE Time Out IMPROVE SCORE: 0 (04/06/2025 10:21 PM) Interpretation - Low Risk Chemical Prophylaxis Low VTE risk Mechanical Prophylaxis SCDs are ordered - Bilateral (Knee High) Labs: No results found for: WBC , HGB , HCT , PLT No results found for: NA , K , CL , CO2 , BUN , CREAT , GLUC No results found for: CALCIUM , MG , PHOS No results found for: AST , ALT , ALKPHOS , BILITOT , BILIDIR , ALBUMIN , PROT No results found for: AMYLASE , LIPASE No results found for: PTT , LABPROT , INR Imaging Studies XR Chest 1 view-Portable Result Date: 04/08/2025 EXAMINATION: XR CHEST CLINICAL INFORMATION: Confirmation of IJ COMPARISON: Chest radiograph 04/02/2025 TECHNIQUE: Frontal view of the chest was obtained. FINDINGS: Right IJ CVC projects over the cavoatrial junction. Lungs are hypoexpanded. Asymmetric elevation of the right hemidiaphragm. Subsegmental atelectasis in the right lung base. No focal consolidation. Mild blunting of the right costophrenic sulcus. Cardiomediastinal silhouette is similar to prior. No acute osseous findings. 1. Right IJ CVC projects over the cavoatrial junction. No postprocedural pneumothorax. 2. Subsegmental atelectasis in the right lung base. 3. Possible trace right pleural effusion. Interpreted by: Emilee Casas MD Natural Gas Engineer I personally reviewed the images and the resident's preliminaryreport and AGREE with the report as it is now presented ([id number]). MRI Arm w w/o contrast-Lower right Result Date: 04/07/2025 EXAMINATION: MR UPPER EXTREMITY NON JOINT WITHOUT AND WITH CONTRAST, HUMERUS, RIGHT MRI OF THE UPPER EXTREMITY NONJOINT WITHOUT AND WITH CONTRAST FOREARM, RIGHT CLINICAL INFORMATION: Right arm abscess. COMPARISON: Multiple prior examinations most recent CT upper extremity exam April 07, 2025. TECHNIQUE: MRI of the right upper extremity/humerus was performed without and with contrast on a high-field MRI scanner. MRI of the right upper extremity/forearm was performed without and with contrast joy high-field MRI scanner. Contrast 7.5 mL of Magnevist contrast given intravenously during both portions of the exam. FINDINGS: Exam is significantly limited because of difficulties positioning the patient and patient movement. Additionally axial T2-weighted sequences of the forearm and axial T1-weighted sequences of the upper arm humerus could not be obtained. RIGHT UPPER EXTREMITY/HUMERUS: As noted on the CT examination again noted is a lobulated fluid collection extending along the deep surface of the pectoralis major muscle, coracobrachialis extending into the axilla with enhancement of the surrounding tissues. This is suspicious for an evolving abscess. The noted fluid collections above are continuous with the biceps muscle both within the muscle and surrounding the muscle deep to the fascia throughout the anterior compartment and extending the length of the upper extremity to the level of the proximal portion of the distal biceps tendon. Additional mild increased T2 signal and enhancement of the muscles compatible with generalized myositis. The fluid anterior to the anterior compartment deep to the fascia measures up to 1 cm. Also again noted is fluid extending between the teres minor and triceps muscles proximally and extending distally within the posterior compartment deep to the fascia surrounding and partially compressing the triceps muscles. The appearance is suspicious for subfascial abscess between the fascia and triceps muscles. This extends the length of the triceps muscles. This collection measures up to 1.6 cm anterior to posterior. Mild heterogeneous abnor mal signal and enhancement of the muscles compatible with myositis. There is generalized fluid signal in the subcutaneous soft tissues with partial enhancement compatible with a combination of edema and cellulitis throughout the upper arm. Osseous structures: Normal. No abnormal marrow signal. RIGHT UPPER EXTREMITY/FOREARM: As in the upper extremity there is feathery-appearing fluid- like signal noted throughout the forearm with partial enhancement compatible with a combination of edema and cellulitis. There is a lobulated fluid collection at least partially within the brachialradialis muscle and adjacent extensor muscles proximally beginning at the elbow joint and extending to the forearm over approximately 9 cm craniocaudal, 5 cm transverse and 1 cm AP. The collection appears to extend outside of the muscle deep to the fascia as it extends distally. There is heterogeneous enhancement of the noted muscles compatible with myositis. Remaining muscles of the forearm do not demonstrate any definite enhancement. Full evaluation is limited as we were unable to obtain T2-weighted sequences. No additional visible muscle collection noted. Osseous structures: There is possible ill-defined increased T2 signal in the olecranon which is not completely imaged throughout the examination in multiple planes Exam is significantly limited because of difficulties positioning the patient and patient movement.Diffuse generalized abnormality in the subcutaneous soft tissues throughout the right chest, upper arm and forearm compatible with a combination of edema and cellulitis and myositis. As seen on priorCT there are lobulated confluent fluid collections evolving multiple muscle groups and compartmentsas detailed above including the pectoralis major as well as extending distally within anterior and posterior compartment muscles and between the muscles and fascia in the upper arm consistent with and suspicious for abscesses along with myositis. In the proximal forearm anterolaterally there is a fluid collection at least partially within the brachial radialis and extensor muscles and between these muscles and overlying fascia suspicious for abscess along with adjacent myositis. Question abnormal increased T2 signal in the olecranon not completely assessed on this examination.. No bone erosion. Cannot exclude localized osteomyelitis. The remaining bones throughout the upper and lower extremity appear normal MRI Arm w w/o contrast-Upper right Result Date: 04/07/2025 EXAMINATION: MR UPPER EXTREMITY NON JOINT WITHOUT AND WITH CONTRAST, HUMERUS, RIGHT MRI OF THE UPPER EXTREMITY NONJOINT WITHOUT AND WITH CONTRAST FOREARM, RIGHT CLINICAL INFORMATION: Right arm abscess. COMPARISON: Multiple prior examinations most recent CT upper extremity exam April 07, 2025. TECHNIQUE: MRI of the right upper extremity/humerus was performed without and with contrast on a high-field MRI scanner. MRI of the right upper extremity/forearm was performed without and with contrast joy high-field MRI scanner. Contrast 7.5 mL of Magnevist contrast given intravenously during both portions of the exam. FINDINGS: Exam is significantly limited because of difficulties positioning the patient and patient movement. Additionally axial T2-weighted sequences of the forearm and axial T1-weighted sequences of the upper arm humerus could not be obtained. RIGHT UPPER EXTREMITY/HUMERUS: As noted on the CT examination again noted is a lobulated fluid collection extending along the deep surface of the pectoralis major muscle, coracobrachialis extending into the axilla with enhancement of the surrounding tissues. This is suspicious for an evolving abscess. The noted fluid collections above are continuous with the biceps muscle both within the muscle and surrounding the muscle deep to the fascia throughout the anterior compartment and extending the length of the upper extremity to the level of the proximal portion of the distal biceps tendon. Additional mild increased T2 signal and enhancement of the muscles compatible with generalized myositis. The fluid anterior to the anterior compartment deep to the fascia measures up to 1 cm. Also again noted is fluid extending between the teres minor and triceps muscles proximally and extending distally within the posterior compartment deep to the fascia surrounding and partially compressing the triceps muscles. The appearance is suspicious for subfascial abscess between the fascia and triceps muscles. This extends the length of the triceps muscles. This collection measures up to 1.6 cm anterior to posterior. Mild heterogeneous abnor mal signal and enhancement of the muscles compatible with myositis. There is generalized fluid signal in the subcutaneous soft tissues with partial enhancement compatible with a combination of edema and cellulitis throughout the upper arm. Osseous structures: Normal. No abnormal marrow signal. RIGHT UPPER EXTREMITY/FOREARM: As in the upper extremity there is feathery-appearing fluid- like signal noted throughout the forearm with partial enhancement compatible with a combination of edema and cellulitis. There is a lobulated fluid collection at least partially within the brachialradialis muscle and adjacent extensor muscles proximally beginning at the elbow joint and extending to the forearm over approximately 9 cm craniocaudal, 5 cm transverse and 1 cm AP. The collection appears to extend outside of the muscle deep to the fascia as it extends distally. There is heterogeneous enhancement of the noted muscles compatible with myositis. Remaining muscles of the forearm do not demonstrate any definite enhancement. Full evaluation is limited as we were unable to obtain T2-weighted sequences. No additional visible muscle collection noted. Osseous structures: There is possible ill-defined increased T2 signal in the olecranon which is not completely imaged throughout the examination in multiple planes Exam is significantly limited because of difficulties positioning the patient and patient movement.Diffuse generalized abnormality in the subcutaneous soft tissues throughout the right chest, upper arm and forearm compatible with a combination of edema and cellulitis and myositis. As seen on priorCT there are lobulated confluent fluid collections evolving multiple muscle groups and compartmentsas detailed above including the pectoralis major as well as extending distally within anterior and posterior compartment muscles and between the muscles and fascia in the upper arm consistent with and suspicious for abscesses along with myositis. In the proximal forearm anterolaterally there is a fluid collection at least partially within the brachial radialis and extensor muscles and between these muscles and overlying fascia suspicious for abscess along with adjacent myositis. Question abnormal increased T2 signal in the olecranon not completely assessed on this examination.. No bone erosion. Cannot exclude localized osteomyelitis. The remaining bones throughout the upper and lower extremity appear normal CT Upper extremity with contrast-Left Addendum Date: 04/07/2025 ADDENDUM #1 Addendum: Reactive left axillary lymph nodes. Result Date: 04/07/2025 EXAMINATION: CT left upper extremity without contrast CLINICAL INFORMATION: Abscess evaluation COMPARISON: MRI left humerus dated same day TECHNIQUE: Multiple axial CT images of the left upper extremity are acquired without contrast. Sagittal and coronal reconstructions are provided. 75 mL Omnipaque 300. DOSE LOWERING TECHNIQUES: This CT examination was performed using dose optimization techniques as appropriate, variously including the following: - Automated exposure control - Adjustment of mAand/or kV according to patient size (this includes techniques or standardized protocols for targeted exams where dose is matched to indication/reason for exam; i.e. extremities or head) - Use of iterative construction technique 1676.35 FINDINGS: Within the upper extremity, one appears deep to the biceps musculature there is a peripherally enhancing fluid collection originating approximately 10 cmproximal to the elbow joint and extending to the level of the elbow joint. At its distal aspect the fluid collection appears to extend to the subcutaneous soft tissues. No definite enhancing fluid collection distal to the subcutaneous component distal to the elbow joint. Diffuse subcutaneous soft tissue inflammation of the elbow and forearm. No acute osseous abnormality. Peripherally enhancing fluid collection within the upper extremity, approximately 10 cm proximal tothe elbow joint and extending to the level of the elbow joint. At its distal aspect the fluid collection appears to extend to the subcutaneous soft tissues. No definite enhancing fluid collection distal to the subcutaneous component distal to the elbow joint. Findings are concerning for abscess. CT Upper extremity with contrast-Right Result Date: 04/07/2025 EXAMINATION: CT UPPER EXTREMITY WITH CONTRAST, RIGHT CLINICAL INFORMATION: Concern for soft tissue infection of entire right upper extremity. COMPARISON: Outside CTA of the right upper extremity April 02, 2025. TECHNIQUE: CT scan of the right upper extremity was performed with contrast. Reconstruction imaging performed at the acquisition workstation. Contrast dose 80 mL of Omnipaque [address] examination was performed using dose optimization techniques as appropriate, variously including the following: *Automated exposure control *Adjustment of mA and/or kV according to patient size (this includes techniques or standardized protocols for targeted exams where dose is m atched to indication/reason for exam; i.e. extremities or head) *Use of iterative reconstruction technique DLP: 1068 mGy-cm FINDINGS The large [id number] and positioning limits evaluation. Subcutaneous soft tissues: There is feathery-appearing fluid-like density noted throughout including the right chest wall and into the right side of the abdomen, as well as circumferentially about the shoulder region, right upper extremity, right forearm and into the hand. No gas noted. MUSCLES/TENDONS: Right shoulder and chest region: There is ill-defined lobulated fluid extending within and along the superficial and deep surface of the pectoralis major and minor, coracobrachialis and teres major. In the upper arm, there is additional fluid extension and involvement of the anterior compartment muscles including the biceps, brachialis and brachioradialis along with the overlying subcutaneous soft tissues. There is also fluid extending along the outer aspect of the triceps muscles deep to the fascia the length of the muscle in the upper extremity. In the forearm and hand, there is no definite involvement of the muscles although there is extensive feathery-appearing fluid-like density in the subcutaneous soft tissues. The osseous structures are intact. The chest is also included in the examination. Numerous lymph nodes present within the axilla, likely reactive. There is consolidation in the right lower lobe and a right pleural effusion. 1. Extensive fluid-like density throughout the subcutaneous soft tissues of the right chest wall, right abdominal wall, right upper extremity and right forearm and hand. This is nonspecific but couldreflect edema, cellulitis or a combination of these. This appears to have progressed compared with outside imaging of the right upper extremity dating back to April 02, 2025. 2. There is fluid extending within and along the superficial and deep surface muscles and muscle groups in the right chest/chest wall and right upper extremity compatible with myositis and likely evolving phlegmon or abscesses which has progressed compared with prior outside imaging dating back to April 02, 2025. See details above. No definite involvement of the muscles in the forearm and hand 3. Right lower lobe consolidation and right pleural effusion. Electronically Signed Kari Bain MD General Surgery, PGY-1 04/08/2025 5:45 AM Cosigned by Lucho Donaldson MD at 04/08/2025 4:34 PM EDT * Nemesio Pandya MD - 04/07/2025 9:37 PM EDT Surgery Post Operative Check Principal Problem: Hand abscess (POA: Yes) Active Problems: Abscess of arm, right (POA: Unknown) Abscess of left arm (POA: Unknown) Lung nodule (POA: Unknown) MRSA bacteremia (POA: Unknown) Infection of wound due to methicillin resistant Staphylococcus aureus (MRSA) (POA: Unknown) 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) IV drug user (POA: Unknown) Difficult intravenous access (POA: Unknown) ADHD (POA: Unknown) Resolved Problems: LOS: 1 day Procedures: Surgical/Procedural Cases on this Admission Case IDs Date Procedure Surgeon Location Status [id number] 04/07/25 INCISION & DRAINAGE AND DEBRIDEMENT UPPER EXTREMITY Db Lynn MD [facility] Comp [id number] 04/08/25 INCISION & DRAINAGE Karo Tirado MD [facility] Not [facility] Assessment & Plan Assessment: Molly Beasley is a 34 y.o. female who is POD 0 s/p abscess I&D of right upper arm. Plan: -NPO at midnight -IVF -Appropriate home meds reordered -DVT prophylaxis -Nausea control -Pain control -Out of bed ambulating -Compression stockings -Strict I & O -Incentive Spirometer -Due to void Subjective Patient resting comfortably in bed. She has some appropriate pain over her right arm and hand. She denies n/v/chest pain or SOB. Objective Last Vitals Pulse:(!) 103,Resp:18,BP:100/64,SpO2:98 %,Weight:73.7 kg (162 lb 7.7 oz) (verified by ANMOL Thapa) Temp Last 24 hrs: Temp Min: 97.9 ??F (36.6 ??C) Max: 100.6 ??F (38.1 ??C) Date 04/07/25 0700 - 04/08/25 0659 Shift 4805-7220 8796-5890 1725-3775 24 Hour Total INTAKE I.V.(mL/kg) 3(0) 1006(13.7) 1009(13.7) Volume (mL) Dexmedetomidine 6 6 NS Flush Volume ([REMOVED] Peripheral IV - Single Lumen (Adult) ) 3 3 Volume (mL) ( lactated ringers (LR) infusion) 1000 1000 IV Piggyback 250 250 Volume (mL) (vancomycin (VANCOCIN) 1,250 mg in sodium chloride (NS) 0.9 % 250 mL IVPB-WTD) 250 250 Shift Total(mL/kg) 3(0) 1256(17) 1259(17.1) OUTPUT Urine(mL/kg/hr) Unmeasured Urine Occurrence 1 x 1 x Blood 200 200 EBL (mL) 200 200 Shift Total(mL/kg) 200(2.7) 200(2.7) NET 3 1056 1059 Weight (kg) 73.7 73.7 73.7 73.7 Physical Exam General Appearance: No apparent distress. A & O x 3 Pulmonary: No acute pulmonary distress Cardiac: Regular rate, rhythm. Extremities: RUE edema, Omid wrap RUE biceps c/d/I. Left hand dressing c/d/i Drains: Patient Lines/Drains/Airways Status Active Drain None VTE Time Out IMPROVE SCORE: 0 (04/06/2025 10:21 PM) Interpretation - Low Risk Chemical Prophylaxis Low VTE risk Mechanical Prophylaxis SCDs are ordered - Bilateral (Knee High) Nemesio Pandya MD General Surgery, PGY1 04/07/2025 9:37 PM * Bhavin Parks MD - 04/07/2025 3:52 PM EDT Progress Note Hospital Day: 2, Admit Date: 04/06/2025 Assessment and plan: Ms. Beasley is a 34 y.o. female with h/o IV drug use [cocaine], on methadone, depression/anxiety, transferred from outside hospital after presenting with complaints of right upper extremity arm swelling and pain. CT RUE showed extensive myositis, cellulitis and ill-defined abscess in the lateral shoulder and no evidence of necrotizing fasciitis. She underwent I&D by general surgery team at OSH on 04/03. She then developed worsening of right upper extremity swelling. Blood cultures and wound culture at outside hospital revealed MRSA. Repeat CT of right forearm with IV contrast on 04/06 showed phlegmon/developing abscess within biceps muscle, possibility of focal necrosis with concern for se noelle myositis of necrotizing fasciitis. She was transferred to for further care. Echo done at outside hospital did not reveal any infective endocarditis Assessment & Plan Hand abscess Abscess of arm, right Abscess of left arm MRSA bacteremia Infection of wound due to methicillin resistant Staphylococcus aureus (MRSA) -Patient evaluated by surgery and orthopedics - patient scheduled for incision and drainage by surgery today - ID was consulted-on vancomycin and Zosyn Patient received 1 dose of clindamycin - Vascular access was an issue, she will get central line placed during surgical procedure today -MRI upper extremity done-awaiting results Lung nodule -1 cm nodule on outpatient CT scan- Methadone maintenance therapy patient IV drug user Difficult intravenous access -I confirm the dose with outpatient methadone clinic-on 130 mg methadone daily I have updated the Patient and addressed their concerns. Barriers to patient transition/ medical necessity requiring continued inpatient stay - Scheduled for surgical I&D for right upper extremity abscess today - On IV antibiotics -Awaiting the results of blood culture Quality metrics: # Telemetry: No Active Telemetry Order # Diet: Diet NPO; Meds # Code status: Full Code # Lynch catheter: No Active Urethral Catheter (Lynch) Order # Central lines: # Expected Date of Discharge: 04/11/2025 {Click to update YAHAIRA: [id number]} VTE Time Out IMPROVE SCORE: 0 (04/06/2025 10:21 PM) Interpretation - Low Risk Chemical Prophylaxis Low VTE risk Mechanical Prophylaxis SCDs are ordered - Bilateral (Knee High) Patient declined SCD use, Please review Anti-infectives (From admission, onward) Start Dose/Rate Route Frequency Ordered Stop 04/07/25 1030 piperacillin-tazobactam (ZOSYN) 4.5 g in sodium chloride-MBP (NS) 100 mL IVPB-MBP Indication: Other 4.5 g 33.3 mL/hr over 3 Hours Intravenous Every 6 hours 04/07/25 1015 04/07/25 1030 clindamycin (CLEOCIN) IVPB 900 mg in 50 mL D5W (premix) Indication: Other 900 mg 100 mL/hr over 30 Minutes Intravenous Once 04/07/25 1016 10/06222804/07/25 0100 vancomycin (VANCOCIN) 1,250 mg in sodium chloride (NS) 0.9 % 250 mL IVPB-WTD Indication: Bacteremia 1,250 mg 166.7 mL/hr over 90 Minutes Intravenous Every 12 hours 04/07/25 0048 04/06/25 223 vancomycin (VANCOCIN) IV dosing PER PHARMACY PROTOCOL Note to Pharmacy: 04/06 labs at [facility] - random vancomycin levels at 11 AM was 19.3 unable to get labs now due to poor access. creatinine 0.59, GFR more than 60 Indication: Other Bacteremia Pharmacy Protocol Orders Pharmacy Protocol Orders 04/06/252230 Subjective: Chief complaint No chief complaint on file. Patient is being seen for acute medical problems and follow-up for chronic medical issues as mentioned in the assessment and plan above. # Event overnight: No acute events reported Ms. Beasley was seen earlier today. she reported feeling significant pain over her right upper extremity with swelling Objective: Last 3 Filed Values 04/06/25211904/07/25 0030 04/07/25 0315 BP: (!) 167/93 (!) 158/87 Pulse: (!) 104 89 Resp: 18 18 Temp: (!) 100.3 ??F (37.9 ??C) (!) 100.6 ??F (38.1 ??C) 98.7 ??F (37.1 ??C) TempSrc: Oral Tympanic Tympanic SpO2: 93% 97% SOFA Scores 04/07/25 0600 SOFA Score : 0 SpO2 Min: 83 % Max: 100 % O2 Device: room air (none) Weight: on admission: 73.7 kg (162 lb 7.7 oz) (verified by ANMOL Thapa), (04/06/2025 8:56 PM) Recent: 73.7 kg (162 lb 7.7 oz) (verified by ANMOL Thapa), (04/06/2025 8:56 PM) Last Documented Bowel Movement - Intake/Output Summary (Last 24 hours) at 04/07/2025 1552 Last data filed at 04/07/2025 1540 Gross per 24 hour Intake 1256 ml Output -- Net 1256 ml Physical Exam Constitutional - alert. not in acute distress. Cardiovascular - normal rate. normal heart sounds. Pulmonary - breath sounds present bilaterally. no wheezing and no crackles. Abdominal - soft. no distension and no tenderness. Musculoskeletal - no RLE edema and no LLE edema. Swelling, redness and tenderness of RUE Neurological - alert and oriented x 4. Scheduled medications 04/07/25 3:52 PM As needed medications: clindamycin, 900 mg, Intravenous, Once methadone, 130 mg, Oral, Daily piperacillin-tazobactam, 4.5 g, Intravenous, Q6H senna-docusate, 2 tablet, Oral, Nightly vancomycin, , Pharmacy Protocol Orders, Pharmacy Protocol Orders vancomycin, 1,250 mg, Intravenous, Q12H acetaminophen bisacodyl HYDROmorphone HYDROmorphone HYDROmorphone ketorolac lactulose naloxone Current infusions: lactated ringers, 100 mL/hr, Last Rate: 100 mL/hr (04/06/25 2333) Diagnostic studies: I have reviewed the labs and ordered new labs if needed. No results for input(s): WBC , HGB , HCT , PLT in the last 72 hours. No results for input(s): NA , K , CO2 , CL , BUN , CREAT , CALCIUM , MG , PHOS , BILITOT , ALKPHOS , AST , ALT , ALBUMIN in the last 72 hours. No results for input(s): PT , PTT , INR in the last 72 hours. No results for input(s): SARSCOV2 , INFLAV , INFLBV in the last 72 hours. Blood Culture Results Since Admission No results found for this visit on 04/06/25. Urine Culture Results Since Admission No results found for this visit on 04/06/25. Imaging Studies: No images to review. Bhavin Parks MD * Zefeirno Lovelace RN - 04/07/2025 9:23 AM EDT Spoke with attending Dr Parks and discussed IV access assessment. Pt currently is needing vanco for an extended period of time per attending. ID consult pending. Pts right arm is swollen and red. Redness extends up the entire upper extremity and swelling is circumferential from hand to upper right arm. Left arm assessed. Pt currently has OSH site in proximal basilic vein and vessel appears phlebitic up to axilla. However, pt has a brachial vessel that appears compressible all the way up into axilla, but its difficult to assess where the two vessels meet in axilla. At this time, we will wait for ID recs. If ID requires blood cx to be ordered/drawn, an acute central access device will need to be placed, as we need to preserve left brachial vessel for future access. Spoke with attending and he has reached out to ID. * Eliana Villaseñor MD - 04/07/2025 6:21 AM EDT Orthopedic Surgery Progress Note Patient: Molly Beasley Age: 34 y.o. 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 female with past medical history of IV drug use who was transferred to [facility] yesterday for concern for right upper extremity abscess. She initially presented to an outside hospital on 04/02 with swelling and redness of the right upper extremity after intravenous cocaine use. Per patient, she underwent a formal I&D in the operating room on 04/05 to the right antecubital fossa. Repeat CT scan of the right forearm on 04/06 demonstrated developing abscess within the biceps muscle with concern for possible necrotizing fasciitis without soft tissue gas. CT scan of the left forearm demonstrated partially visualized abscess in the antecubital fossa and synovitis inthe wrist. She is subsequently transferred to [facility] for further evaluation. Yesterday, some of the sutures to her right antecubital fossa were removed due to persistent purulent drainage. However, patient was unable to tolerate removal of all sutures despite pain medications. She is also unable to tolerate CT scan of bilateral upper extremities so only the right upper extremity was rescanned. She underwent bedside I&D of right volar forearm abscess with packing. Overnight, she was febrile to 100.6 but has otherwise been vitally stable. She is currently on vancomycin. Due to her bilateral upper extremity swelling, she has had difficulty with access and obtaining labs. Will review her right upper extremity CT scan with Dr. Vega this morning as well as general surgery given likely involvement of extremity above the elbow. Plan(s): -- Weightbearing status: Nonweightbearing (NWB) BUE for soft tissue rest -- DVT Prophylaxis: Per primary team -- Antibiotics: Vancomycin and Appreciate ID recommendations -- Pain control -- Diet: NPO -- Packing pull right forearm 04/08 -- Pending CT review with Dr. Vega this morning -- Appreciate general surgery recommendations -- Patient needs labs and reliable access per primary team -- Plan per primary team Subjective Endorsing bilateral upper extremity pain. Right shoulder and elbow pain is worse. Objective Last Vitals: Pulse:89,Resp:18,BP:(!) 158/87 (nurse notified),SpO2:97 %,Weight:73.7 kg (162 lb 7.7 oz) (verified by ANMOL Thapa) Temp Last 24 hrs: Temp Min: 98.7 ??F (37.1 ??C) Max: 100.6 ??F (38.1 ??C) Last temp: 98.7 ??F (37.1 ??C) (Tympanic) Diet: Diet NPO; Meds, Sips of clears, Ice chips I/O: Date 04/06/25 07 - 04/07/25 0604/07/25 07 - 04/08/25 0659 Shift 5372-0395 5864-1566 3575-1014 24 Hour Total 5230-6619 3445-8178 4017-2927 24 Hour Total INTAKE I.V. 1000(13.6) 1000(13.6) Shift Total(mL/kg) 1000(13.6) 1000(13.6) OUTPUT Shift Total(mL/kg) Weight (kg) 73.7 73.7 73.7 73.7 73.7 73.7 73.7 Physical Exam: General: NAD, resting comfortably in bed, alert and oriented x3 Lungs: unlabored breathing Extremities: RUE: Diffuse erythema and swelling throughout the upper extremity. No obvious areas of fluctuance or crepitus throughout shoulder and elbow. Actively elevates shoulder approximately 15 degrees, limited by swelling and pain. Only ranges elbow approximately 10-30 degrees, limited by pain and swelling. Limited pronosupination. Active first range of motion approximately 20 degrees, flexion, 20 degrees extension. Incision to antecubital fossa with some remaining nylon sutures, some expressible purulent drainage. Volar forearm I&D site with packing, no significant surrounding fluctuance. Fires FPL/EPL/APB/SAMMY. Sensation intact to light touch in median/ulnar/radial nerve distributions. Fingers are well-perfused. LUE: Swelling over metacarpals. Full, painless shoulder range of motion. Small area of fluctuance to ulnar aspect of antecubital fossa with mild tenderness to palpation. Elbow range of motion 5-120 degrees. Full wrist range of motion, somewhat limited by pain. Fires FPL/EPL/APB/SAMMY. Sensation intact to light touch in median/ulnar/radial nerve distributions. Fingers warm well-perfused Labs: No results for input(s): HCT , HGB , INR , CREAT in the last 72 hours. Signed: Eliana Villaseoñr MD 04/07/25 6:21 AM * Ryland Varghese, PharmD - 04/07/2025 12:47 AM EDT Pharmacokinetic Consult - Vancomycin Follow Up Note Molly Beasley is a 34 y.o. female transferred to [facility] from an outside hospital where she had been receiving vancomycin 1000mg IV every 8 hours for bacteremia since 04/02/25. At the outside hospital, on 04/06/25 a ~7 hour vancomycin trough returned 19.3mg/L, and SCr was 0.59mg/dL. Unableto obtain labs at this time due to poor access, will utilize levels from outside hospital to continue dosing. Assessment: Analysis of the most recent level(s) using XMOS gives the following patient-specific pharmacokinetic parameters: CL: 4.65 L/hr V: 48.7 L T 1/2: 7.43 hours Using these values, the current vancomycin regimen is predicted to result in an AUC24 of 605 (correlated steady-state trough of 18.1 mcg/mL), which is above target AUC of 400-600. At this time, we will change regimen to 1250mg q12 hours. This is predicted to result in an AUC24 of 505 (correlated trough of 12.5 mcg/mL). The pharmacy team will plan to obtain the next level within 48 hours. Pharmacy will continue to follow the patient's renal function, culture results, and clinical progress daily. Labs: No results found for: CREAT , BUN No results found for: VANCOTR , VANCTR , VANCORAND , VANRAN , VANCOPK , VANCPK CrCl cannot be calculated (No successful lab value found.). Ryland Varghese PharmD documented in this encounter H&P Notes * Dandre Valdez MD - 04/06/2025 11:15 PM EDT Images from the original note were not included. HOSPITAL MEDICINE ADMISSION HISTORY & PHYSICAL Admit Date: 04/06/2025 8:42 PM Patient's Primary Care Physician: No Pcp History of presenting illness: Patient is a 34-year-old female with past medical history IV drug use complicated by history of overdose on methadone,xylozene infection left forearm, depression, anxiety on Xanax and clonidine as prescribed, presents to [facility] as a direct transfer from outside hospital due to concern for right upper extremity abscess/surgical evaluation for the necrotizing fasciitis. Patient initially presented to outside hospital 04/02 with swelling and redness of the right upper extremity, unable to move. Had IV cocaine use the day prior. Denied having any fevers or chills. She underwent CT of right upper extremity 04/02 that showed extensive myositis, cellulitis and developingill-defined abscess at the level of shoulder, reactive right axillary adenopathy, no evidence of nec fasciitis at this time. Was given a dose of vancomycin and Zosyn, IV fluids given per sepsis protocol, patient is on [address] [facility]., Was confirmed by outside hospital physician. Patient underwent I&D by general surgery on 04/03 without complication. Patient then developed left upper extremity swelling as well. Underwent TTE with no evidence of infective endocarditis. Was scheduled for YANA but pending. Patient underwent repeat CT right forearm with IV contrast scan 04/06 earlier today 04/06 which showed phlegmon/developing abscess within the biceps muscle measuring 2.9 cm, focal necrosis may also be considered. Decreased attenuation of the bicep musculature could be secondary to severe myositis or fasciitis with necrosis. No soft tissue gas. CT of the left forearm with IV contrast on 04/06 which showed partially visualized abscess in the antecubital fossa measuring 3 x 4 cm. Redemonstrated regional enhancing fluid collection of the dorsalaspect of the wrist favored to be bacterial tenosynovitis. CT of the right shoulder 04/06 no evidence of osteomyelitis or septic arthritis. Cellulitis, myositis and fasciitis noticed fluid tracking along the fascial planes is greater than the prior study and may indicate worsening. No soft tissue gas to indicate 3. Associated lymphadenopathy worse than prior. 1 cm nodule in the right upper lobe concern for septic emboli. Transthoracic echocardiogram shows LV systolic function normal, EF 61%, no valvular pathology. Labs-CBC 04/06-white count 12.7, hemoglobin 9, hematocrit 25.7, platelets 339, BMP-sodium 135, potassium 2.8 repeat 4.4, creatinine 0.59, GFR more than 60, bicarb 23, anion gap 14, calcium 7.7, mixed random vancomycin levels at 11 AM was 19.3 COVID-negative Wound cultures from 04/03 right arm positive for MRSA Blood culture 04/02-positive for MRSA 2/2 Medications-methadone 130 mg daily, ibuprofen 400 mg every 6 hours, Adderall 20 mg daily, and 5 mg in the afternoon. Neck. ASSESSMENT & PLAN Principal Problem: Hand abscess (POA: Yes) Resolved Problems: Assessment & Plan Hand abscess Abscess of arm, right Abscess of left arm MRSA bacteremia Infection of wound due to methicillin resistant Staphylococcus aureus (MRSA) - Patient with history of IV drug use presents with initially redness and swelling in the right arm, found to have abscess status post I&D. Wound culture and blood culture positive for MRSA. Started on vancomycin, however continued to have progressive redness and swelling and new redness and swelling of the left arm. - Got a repeat CT scan at outside hospital showing worsening of myositis/abscesses concerning for progression of infection, transferred here for higher level of care. - Orthopedic team consulted for hand surgery as well as general surgery consulted as there is infection above the elbow as well. - Will continue IV vancomycin - Vitals every 4 hours - Will continue IV fluids - Will keep patient n.p.o. for possible surgical intervention - Pain management with Dilaudid, Toradol as needed - Will place ID consult - I have handed over the CD from outside hospital with images to radiology department to be uploaded in the chart. Surgery team aware. Lung nodule -1 cm incidental nodule seen in outpatient CT scan concerning for septic emboli given the history. Methadone maintenance therapy patient -Patient is on 130 mg of methadone, follows up with [facility]., Was confirmed by provider at outside hospital. - Will likely need reconfirmation in this hospitalization. Has received a dose this morning. IV drug user Difficult intravenous access -Poor IV access team, difficulty getting blood draws due to her swelling and history of IV drug use. - Does have 1 IV access for antibiotics. - Will likely need a PICC line/midline for frequent labs ADHD Patient is on Adderall at home, can continue outpatient CODE STATUS: Full Code HCP/Decision maker: Patient Discussed patient's condition,further plan and management with patient and agreed with it. Expected Date of Discharge: 04/08/2025 [employer] Telemetry: No DVT PROPHYLAXIS Risk Assessment Scores and Dates: VTE Time Out IMPROVE SCORE: 0 (04/06/2025 10:21 PM) Interpretation - Low Risk Chemical Prophylaxis Low VTE risk Mechanical Prophylaxis SCDs are ordered - Bilateral (Knee High) ANTIBIOTIC STEWARDSHIP (Disclaimer : absence of data in section implies that patient is not on any antibiotics). ANTIBIOTIC TIME OUT Treatment Indication: MRSA bacteremia, MRSA wound infection Current antibiotic/day of therapy: Anti-infectives (From admission, onward) Start Dose/Rate Route Frequency Ordered Stop 04/06/252229 vancomycin (VANCOCIN) IV dosing PER PHARMACY PROTOCOL Pharmacy Protocol Orders Pharmacy Protocol Orders 04/06/252230 Oral antibiotic transition date: TBD Anticipated Stop date: TBD Supportive Microbiology: Pending SUBJECTIVE Chief Complaint: No chief complaint on file. REVIEW OF SYSTEMS ROS Patient currently reporting severe 10 out of 10 pain in bilateral upper extremity. Denies any cough, chest pain or shortness of breath. Right arm pain also stretching up to middle of the right side of the chest. No abdominal pain or urinary complaints. No lower lower extremity pain. PAST HISTORY No past medical history on file. No past surgical history on file. No family history on file. Social History[1] ALLERGIES Allergies[2] HOME MEDICATIONS Prior to Admission medications Not on File OBJECTIVE Patient Vitals for the past 8 hrs: BP Temp Temp src Pulse Resp SpO2 Height Weight 04/06/25 2120 (!) 167/93 (!) 100.3 ??F (37.9 ??C) Oral (!) 104 18 93 % -- -- 04/06/252055 -- -- -- -- -- -- 1.58 m (5' 2.21 ) 73.7 kg (162 lb 7.7 oz) No intake or output data in the 24 hours ending 04/06/25 2145 Physical Exam Constitutional: General: She is not in acute distress. Appearance: Normal appearance. She is not ill-appearing. HENT: Head: Normocephalic and atraumatic. Mouth/Throat: Mouth: Mucous membranes are moist. Eyes: General: No scleral icterus. Extraocular Movements: Extraocular movements intact. Conjunctiva/sclera: Conjunctivae normal. Cardiovascular: Rate and Rhythm: Normal rate and regular rhythm. Pulses: Normal pulses. Heart sounds: Normal heart sounds. No murmur heard. No friction rub. No gallop. Pulmonary: Effort: Pulmonary effort is normal. No respiratory distress. Breath sounds: Normal breath sounds. No stridor. No wheezing or rhonchi. Abdominal: General: Abdomen is flat. Bowel sounds are normal. Palpations: Abdomen is soft. Tenderness: There is no abdominal tenderness. There is no guarding. Musculoskeletal: General: Swelling and tenderness present. Right lower leg: No edema. Left lower leg: No edema. Comments: Full right upper extremity including her right shoulder, upper arm and forearm and hand appears swollen, erythematous, extremity tender to palpation. Strong radial pulse. Left hand and forearm swollen as well. Skin: General: Skin is warm and dry. Neurological: General: No focal deficit present. Mental Status: She is alert and oriented to person, place, and time. Mental status is at baseline. Cranial Nerves: No cranial nerve deficit. Psychiatric: Mood and Affect: Mood normal. Medication/MAR Report: Medications Scheduled Medication Ordered Dose/Rate, Route, Frequency Last Action senna-docusate (SENNA-S) 8.6-50 MG tablet 2 tablet 2 tablet, PO, Nightly Ordered vancomycin (VANCOCIN) IV dosing PER PHARMACY PROTOCOL No Dose/Rate, Protocol, Pharmacy Protocol Orders Ordered vancomycin (VANCOCIN) 1,250 mg in sodium chloride (NS) 0.9 % 250 mL IVPB-WTD 1,250 mg, IV, Q12H Ordered Continuous Medication Ordered Dose/Rate, Route, Frequency Last Action lactated ringers (LR) infusion 100 mL/hr, IV, Continuous New Bag, 100 mL/hr at 04/06 2333 PRN Medication Ordered Dose/Rate, Route, Frequency Last Action acetaminophen (TYLENOL) tablet 650 mg 650 mg, PO, Q6H PRN Given, 650 mg at 04/07 0055 bisacodyl (DULCOLAX) suppository 10 mg 10 mg, RE, Daily PRN Ordered HYDROmorphone (DILAUDID) injection 0.5 mg 0.5 mg, IV, Q3H PRN Ordered HYDROmorphone (DILAUDID) injection 0.8 mg 0.8 mg, IV, Q3H PRN Ordered HYDROmorphone (DILAUDID) injection 1 mg 1 mg, IV, Q3H PRN Given, 1 mg at 04/06 2327 lactulose (ENULOSE) 10 gm/15 mL solution 20 g 30 mL, PO, Q4H PRN Ordered naloxone (NARCAN) 0.4 mg/mL injection 0.4 mg 0.4 mg, IV, Q5 Min PRN Ordered Relevant data reviewed No results found for: ALT , AST , GGT , ALKPHOS , BILITOT Sign Dandre Valdez MD 04/06/2025 11:15 PM This note was generated utilizing voice recogniton software. There may be unrecognized word substitutions, especially for sound-alike words. [1] Social History Tobacco Use Smoking status: Every Day Types: Cigarettes Passive exposure: Current Smokeless tobacco: Current [2] No Known Allergies documented in this encounter Consult Notes * Sarah Resendiz RN - 04/12/2025 9:33 AM EDT Wound Consult Pt is s/p several debridements of BUE and dressing are being changed daily by Surgery. Please re-consult if needed. Sarah Resendiz RN, CWON * Ani Tamez RN - 04/11/2025 9:35 AM EDT Wound consult received for BUE wounds, however patient currently in OR for exploration and debridement of wounds. Will re-assess plan and need for consult after surgical intervention complete. * Meeta Perez RD - 04/10/2025 12:18 PM EDTAssociated Order(s): IP CONSULT TO NUTRITION SERVICES Images from the original note were not included. [facility] Nutrition Note Visit Type: initial assessment Reason for Dietitian Visit: consult, tube feeding. Reason for Admission: Hand abscess Pertinent Medical History: No past medical history on file. Nutrition Diagnosis: Intake: Increased nutrient needs (specify) (protein) related to increased metabolic demand as evidenced by L arm incision, R arm incision, chest incision, Diagnosis Status: (new). Interventions/Recommendations: Food & Nutrient Delivery: 1. TF Promote with Fiber with a goal rate of 55mL per hr x 22hrs (holding for Movantik) while on Propofol. -Without propofol increase goal rate to 85mL per hr x 22hrs 2. 1.5oz Prosource TF BID. 3. Minimum 30mL free water flush every 4hrs, additional per team discretion for hydration management. 4. Daily MVI, 1mg folic acid, and 200mg thiamine 5. Monitor Lytes closely, replace prn. 6. Monitor FSBS, adjust coverage prn. 7. Monitor wts for trend. Nutrition Education/Counseling: Not appropriate Coordination of Nutrition Care: Tube Feeding order pended Nutrition Plan for Discharge/Transfer: To be determined. Nutrition Assessment: Pt seen for TF consult in SICU. Pt admitted with NSTI/abscess of RUE and R chest wall in setting ofIVDU. Pt s/p debridements 04/09. Pt intubated and sedated. NGT provides enteral access. Team initiated trophic TF using Promote with Fiber, tolerated well. TF not infusing at time of visit, TF held for RTOR. Propofol providing 409-583kcals/day. Recommend continue on Promote with Fiber, advance slowly to a goal rate of 55mL per hr x 22hrs while on propofol (held for movantik) and addition of 3oz Prosource daily to provide 1.21L with 1290kcals (1700-1873kcals total), 98g Protein and 1006mL free water not including flushes. Without propofol, recommend advance goal rate to 85mL per hr x 22hrs (holding for movantik and no Prosource) to provide 1.87L with 1870kcals, 118g Protein, and 1554mL free water not including flushes. Monitor lytes (phos). RD to follow. Typical Food & Fluid Intake: unable to answer Factors Affecting Nutritional Intake: respiratory difficulty/therapies Food Related Allergies: NKFA Cultural/Ethnic Preferences: None noted/reported. Food Insecurity Concerns: Never true Weight: Wt Readings from Last 5 Encounters: 04/10/25 75.2 kg (165 lb 12.6 oz) Weights (last 5 days) Date/Time Weight Scale 04/10/25 0430 75.2 kg (165 lb 12.6 oz) bed 04/09/25 0705 78.8 kg (173 lb 11.6 oz) bed 04/06/252055 73.7 kg (162 lb 7.7 oz) standing Weight: verified by ANMOL Thapa at 04/06/252055 Body mass index is 30.12 kg/m??. Net IO Since Admission: 10,573.7 mL [04/10/25 1606] Nutrition Physical Findings: Physical Appearance: on ventilator support, overweight Muscle Wasting: none noted Adipose Wasting: none noted Gastrointestinal: (LBM 04/10) Enteral Access Devices: nasogastric tube Oral/Mouth Cavity: (ETT) Skin: other (see comments) (L arm incision, R arm incision, chest incision,) Wound Documentation Reviewed: yes Labs: iCa 1.11, Phos 5.3, Low H/H, FSBS 111-244mg/dL x 24hrs, TG 234, ESR 27, CRP 11.38 Diagnostics: reviewed pertinent Medications: Liquid tylenol, insulin, movantik, miralax, senna, IVLR, dilaudid drip, ketamine, propofol Estimated Daily Energy and Protein Needs: Energy Needs: 1474 - 2211 Kcals/day (20 - 30 Kcals/kg) Asbury: RMR (Asbury-St. Jeor Equation): 1383.5 [place]-St. Jeor (Considerations): RMR x 1.3= 1819kcals based on 73.7 kg (162 lb 7.7 oz) Protein Needs: 88 - 147 gm, (1.2 - 2.0g/kg) based on 73.7 kg (162 lb 7.7 oz) Fluids: 2211ml based on BPO SPECIALIST Method Estimated/Assessed Carbohydrates Needs: 221g Current Diet: Diet, Tube Feeding, No Tray Continuous; NG Tube; Promote with Fiber; 20 mL; 20 mL/hr; NPO Intake Compared to Estimated Needs: Energy Intake: not meeting needs (trickle TF 260mL in 24hr) x 2 days Protein Intake: not meeting needs x 2 days Fluid Intake: other (see comments) (7230mL) Educational Needs Assessment: Assessed patient's learning needs. Barriers to Education: Clinical Condition Monitoring & Evaluation: Goals to be Achieved by Next Assessment: Pt receives at least 80% of prescribed TF Tolerates TF at goal rate Glycemic control with FSBS 70-180mg/dL Monitoring/Evaluation: RD/DTR will monitor and evaluate nutrition plan of care and provide additional interventions and recommendations based on nutrition/clinical status. Sign: Meeta Perez RD 04/10/2025 4:06 PM * Melissa Alan RN - 04/09/2025 12:58 PM EDT [facility] Wound Care Consult Visit Date: 04/09/2025 Patient Name: Molly Beasley Date of : 1990 Reason for Consult: initial Wound Team Summary Assessment: LUE with abscess, RUE with abscess, tracking into the right chest. Patient has a history of IVDU with Xylazine. Per RN and notes, patient will be going back to the OR today for further I & D, particularly of right chest and pectoralis. Wound Team will follow tangentially at this time while Surgery is doing debridements. We will continue to check in and make recommendations as appropriate. Wound Team Plan: Re-eval 1 - 2 days Offloading: TONY bed, wedges and TruVue boots Wound History: 34 year old female admitted for hand abscess. Problem List[1] Wound Team is consulted for topical management of wounds to bilateral arms s/p debridement Pertinent Labs: No results found for: ALB No results found for: TRANSFERRIN No results found for: PREALBUMIN Melissa YOUNG,, RN 04/09/2025 12:58 PM [1] Patient Active Problem List Diagnosis Hand abscess Abscess of arm, right Abscess of left arm Lung nodule MRSA bacteremia Infection of wound due to methicillin resistant Staphylococcus aureus (MRSA) Methadone maintenance therapy patient IV drug user Difficult intravenous access ADHD * Chantel Wallace, AUTOMATION CONTROLS ENGINEER - 04/09/2025 10:12 AM EDTAssociated Order(s): IP CONSULT TO SOCIAL WORK; IP CONSULT TO SOCIAL WORK Images from the original note were not included. Health Social Work Brief Note Date: 04/09/2025 Referred by: Provider/RACQUEL and Case Coordination Reason for Referral: Identification of Legally Authorized Datapower Consultant and Substance Use Assessment Previous Social Work Encounters: None noted in EMR Molly Beasley is a 34 y.o. female currently admitted for: Hand abscess Assessment & Plan Social Work Interventions Unable to introduce self/services at this time, however, will make additional attempt at a later time Summary Molly Beasley was referred to Health Social Work (SW) by major case detective and surgical team BABYSITTER for identification of LAR and substance use assessment. Upon assessment, Molly was intubated. Giventhis, SW will follow-up when they are able to meaningfully participate in assessment. Health bilingual social worker reviewed EMR. Called and spoke with Pt's significant other, Carlos, the only contact Pt has listed. Per Carlos, Pt's mother is living, father and only sibling are . Carlos wasn't able to provide any contact information for Pt's mother, stating that it would be in Pt's cell phone. Carlos states not knowing Pt's pass word for her phone. He reports looking for any contact information and is planning to visit later. Pt's belonging bags went through with bedside nurse, locating Pt's cell phone. Phone is currently at the ICU nursing desk being charged. Collaborated with nursing to obtain any name/numbers of anyone who calls for or visits Pt. Will continue to follow and engage pt when Pt is able to participate. Sign: Chantel Wallace LCSW * TAMI Mackay - 04/07/2025 1:16 PM EDT Inpatient Procedure Team Consultation Note Date of Consult: 04/07/2025 Current Attending: Bhavin Parks MD Name: Molly Beasley Age: 34 y.o. : 1990 Sex: female Assessment and Plan: Consult placed for TLC placement in setting of pending blood cultures, poor access and need for IV antibiotics. Unable to assess patient given her MRI and CT needs this morning. Plan for patient to go to the OR for an I&D of her RUE shortly. Operating surgeon requesting TLC be placed intraoperatively in order to prevent delays in care. [facility] has coordinated for anesthesia for TLC to be placed. Order will be cancelled at this time. This was communicated with the ordering provider. Please reachout to [facility] for any questions or concerns. TAMI Mackay 04/07/2025 1:16 PM Please direct any questions regarding procedure time/ date to the specific imaging modality Ultrasound: 98630 or [place] Text Inpatient Procedure Team * Anisa Perez MD - 04/07/2025 9:40 AM EDTAssociated Order(s): IP CONSULT TO INFECTIOUS DISEASES Images from the original note were not included. [facility] ID Consult Note Date of Consult: 04/07/2025 Physician Requesting Consult: Bhavin Parks MD Reason for Consultation: MRSA bacteremia, multiple bilateral upper extremity abscesses, IV drug use Name: Molly Beasley Age: 34 y.o. Sex: female Admit Date: 04/06/2025 8:42 PM ASSESSMENT & PLAN Assessment: 34-year-old female with history of active IV drug use, history of xylazine infection, depression, anxiety, transferred to [facility] from OSH on 04/06 for concern of right upper extremity abscess. Patient initially presented to OSH on 04/02 with redness/swelling of the right upper extremity in the setting of active IV cocaine use, underwent formal I&D on 04/05 of the right antecubital fossa. Repeat imaging of the forearm on 04/06 at OSH demonstrated developing abscess within the biceps muscle with concern for possible necrotizing fasciitis without soft tissue gas. CT scan of the left forearm demonstrated partially visualized abscess in the antecubital fossa and synovitis in the wrist. At OSH, 2 /2 blood cultures came back positive number of MRSA on 04/02. At [facility], patient was febrile 200.6, currently on vancomycin, evaluated by orthopedics and general surgery. IDis consulted for evaluation today 1. Right upper extremity abscess in the setting of active IV drug use prior history of xylazine infection. CT at [facility] showed worsening compared with imaging on 04/02 with extensive fluidlike density throughout the subcutaneous soft tissues of the right chest wall, right abdominal wall,right upper extremity and right forearm and hand, there is also fluid extending within and along the superficial and deep superficial muscles and muscle groups in the right chest/chest wall and rightupper extremity compatible with myositis and likely evolving phlegmon or abscess 2. MRSA bacteremia -2/2 blood cultures positive at OSH on 04/02 3. History of active IV drug use 4. Antibiotics -Vancomycin 04/07 Recommendations: -Patient evaluated by hand surgery/orthopedics -With worsening findings on exam and imaging, she will require surgical intervention -Source of right upper extremity abscess is MRSA bacteremia or vice versa. 2D echo at OSH was negative 1. Problems with IV access noted, persue central line MARILU. Not ready for PICC 2. Continue vancomycin IV 3. Although blood cultures at OSH have grown MRSA; CT shows worsening and she has history of xylazine infection, will add Zosyn, till we have tissue cultures from the OR and repeat blood cultures to streamline therapy 4. Clindamycin x 1 given 5. Repeat blood cultures x 2. Ordered 6. Addiction medicine input 7. If Blood cultures at [facility] are positive, then pursue YANA Communicated with the team Thank you for the consultation ANTIBIOTIC TIME OUT Current antibiotic/day of therapy: Anti-infectives (From admission, onward) Start Dose/Rate Route Frequency Ordered Stop 04/07/25 0100 vancomycin (VANCOCIN) 1,250 mg in sodium chloride (NS) 0.9 % 250 mL IVPB-WTD 1,250 mg 166.7 mL/hr over 90 Minutes Intravenous Every 12 hours 04/07/25 0048 04/06/25 2230 vancomycin (VANCOCIN) IV dosing PER PHARMACY PROTOCOL Note to Pharmacy: 04/06 labs at osh - random vancomycin levels at 11 AM was 19.3 unable to get labs now due to poor access. creatinine 0.59, GFR more than 60 Pharmacy Protocol Orders Pharmacy Protocol Orders 04/06/25 2231 SUBJECTIVE HISTORY OF PRESENT ILLNESS: 34-year-old female with history of IV drug use, history of drug overdose on methadone, xylazine infection of the left forearm, depression, anxiety patient was admitted to [facility] on 04/06 as transfer from OSH secondary to concern for right upper extremity abscess and surgical evaluation for necrotizing fasciitis. Patient initially presented to OSH on 04/02 with swelling/redness of the right upper extremity, had a history of IV cocaine use prior to admission, underwent CT of the right upper extremity at OSH which showed extensive myositis/cellulitis and developing ill-defined abscessat the level of shoulder with reactive axillary adenopathy with no evidence of necrotizing fasciitis, received a dose of Vanco/Zosyn, underwent I&D by general surgery on 04/05, followed by development of left upper extremity swelling, TTE was performed at OSH which showed no evidence of infective endocarditis, underwent repeat CT forearm on 04/06 which showed phlegmon/ developing abscess within the biceps muscle measuring 2.9 cm, focal necrosis was also in the differential, no soft tissue gas. Transferred to [facility] for higher level of care. At [facility], patient with Tmax 100.6, no labs available, wound from the left right elbow which is negative to date, CT of the right upper extremity performed which showed extensive fluidlikedensity throughout the subcutaneous soft tissues of the right chest wall, right abdominal wall, right upper extremity and right forearm and hand, which appears to have progressed compared with OSH imaging back in April/2025. Patient had blood cultures positive for MRSA 2/2 on 04/02 at OSH. Patient had a blood culture positive there is also fluid extending within and along the superficial and deep superficial muscles and muscle groups in the right chest/chest wall and right upper extremity comp atible with myositis and likely evolving phlegmon or abscess which has also progressed compared with prior OSH imaging. Right lower lobe consolidation and right pleural effusion noted as well. Currently on vancomycin IV. ID is consulted for evaluation Medications Current Facility-Administered Medications Medication Dose Route Frequency Provider Last Rate Last Admin lactated ringers (LR) infusion 100 mL/hr Intravenous Continuous Reinaldou MD Courtney 100 mL/hr at 04/06/25 2333 100 mL/hr at 04/06/25 2333 acetaminophen (TYLENOL) tablet 650 mg 650 mg Oral Q6H PRN Reinaldou MD Courtney 650 mg at 04/07/25 0055 bisacodyl (DULCOLAX) suppository 10 mg 10 mg Rectal Daily PRN Dandre Valdez MD HYDROmorphone (DILAUDID) injection 0.5 mg 0.5 mg Intravenous Q3H PRN Dandre Valdez MD HYDROmorphone (DILAUDID) injection 0.8 mg 0.8 mg Intravenous Q3H PRN Dandre Valdez MD HYDROmorphone (DILAUDID) injection 1 mg 1 mg Intravenous Q3H PRN Dandre Valdez MD 1 mg at 04/07/25 0339 ketorolac (TORADOL) injection 30 mg 30 mg Intravenous Q8H PRN Dandre Valdez MD lactulose (ENULOSE) 10 gm/15 mL solution 20 g 30 mL Oral Q4H PRN Dandre Valdez MD methadone (DOLOPHINE) tablet 130 mg 130 mg Oral Daily Bhavin Parks MD naloxone (NARCAN) 0.4 mg/mL injection 0.4 mg 0.4 mg Intravenous Q5 Min PRN Dandre Valdez MD senna-docusate (SENNA-S) 8.6-50 MG tablet 2 tablet 2 tablet Oral Nightly Dandre Valdez MD vancomycin (VANCOCIN) IV dosing PER PHARMACY PROTOCOL Pharmacy Protocol Orders Pharmacy Protocol Orders Dandre Valdez MD vancomycin (VANCOCIN) 1,250 mg in sodium chloride (NS) 0.9 % 250 mL IVPB-WTD 1,250 mg Intravenous Q12H Dandre Valdez MD Stopped at 04/07/25 0541 ALLERGIES: Allergies[1] PAST MEDICAL HISTORY: No past medical history on file. PAST SURGICAL HISTORY: No past surgical history on file. FAMILY HISTORY: No family history on file. SOCIAL HISTORY: Social History Socioeconomic History Marital status: Single Spouse name: Not on file Number of children: Not on file Years of education: Not on file Highest education level: Not on file Occupational History Not on file Tobacco Use Smoking status: Every Day Types: Cigarettes Passive exposure: Current Smokeless tobacco: Current Substance and Sexual Activity Alcohol use: Not on file Drug use: Not on file Sexual activity: Not on file Other Topics Concern Not on file Social History Narrative Not on file Social Drivers of Health Financial Resource Strain: Not on file Food Insecurity: Not on file Transportation Needs: Not on file Physical Activity: Not on file Stress: Not on file Social Connections: Not on file Housing Stability: Not on file OBJECTIVE vitals: Vitals: 04/06/25 2056 04/06/25 2120 04/07/25 0030 04/07/25 0315 BP: (!) 167/93 (!) 158/87 BP Location: Right leg Left leg Patient Position: Lying Lying Pulse: (!) 104 89 Resp: 18 18 Temp: (!) 100.3 ??F (37.9 ??C) (!) 100.6 ??F (38.1 ??C) 98.7 ??F (37.1 ??C) TempSrc: Oral Tympanic Tympanic SpO2: 93% 97% Weight: 73.7 kg (162 lb 7.7 oz) Height: 1.58 m (5' 2.21 ) Intake/Output Summary (Last 24 hours) at 04/07/2025 0941 Last data filed at 04/06/2025 2333 Gross per 24 hour Intake 1003 ml Output -- Net 1003 ml General appearance -patient in no apparent distress Lungs: Diminished breath sounds at the bases Cardiovascular: Tachycardic Right upper extremity with diffuse swelling and erythema throughout the upper extremity. There is an incision in the antecubital fossa with some remaining sutures, some of them are expressing purulent drainage. Left upper extremity small area of fluctuance to the ulnar aspect of the antecubital fossa with mild tenderness to palpation Laboratory Data: I reviewed the labs. Blood Cultures: Lab Results Component Value Date CULTURE PENDING 04/07/2025 Urine Cultures: No results found for: CRYSUA , HYALNCSTUA , UROBILINOGEN , BILIUA , BLOODUA , CLARITYUA , COLORUA , UACOMMENT , GLUCU , KETONESUA , LEUKOCYTESUA , NITRITEUA , PHUA , PROTEINUA , RBCUA , SPECIMEN , SPECGRAVUA , SQEPIUA , WBCUA C. Difficile: No results found for: CDIFFTOX , NAP1 No results found for: WBC , HGB , HCT , MCV , PLT No results found for: CREAT No results found for: ALT , AST , GGT , ALKPHOS , BILITOT No results found for: CKTOTAL , TNI , PROBNP I reviewed the prescribed Medications and new Laboratory Blood Work. Monitor for drug related adverse events.>80 min spent in reviewing records, labs, imaging, coordination and formulation of planof care I reviewed all new Imaging Studies (actual images) and compared to prior where applicable This report was generated using [employer] Speaking dictation software. Although every attempt has been made by the provider to proofread this document, occasional misspellings and typographical errors Sign Anisa Perez MD, FID, [facility] Infectious Diseases Available via [employer] 04/07/2025 9:41 AM [1] No Known Allergies * Jelly Cancino MD - 04/07/2025 12:02 AM EDT Surgical Consult Note Date of Consult: 04/06/2025 Patient's Primary Care Provider: No Pcp Provider Requesting Consult: Dr. Valdez Reason for Consultation: RUE abscess Name: Molly Beasley Age: 34 y.o. Sex: female Principal Problem: Hand abscess (POA: Yes) Resolved Problems: Assessment & Plan Assessment 34 y.o. female with PMH IV drug use, xylozene infection, depression, anxiety and PSH I&D of RUEon 04/02 presenting as a transfer from outside hospital for surgical evaluation of right upper extremity abscess secondary to IV drug use. Recommendations: - Continue antibiotics - Multimodal pain control - Several sutures removed from R antecubital fossa with hand surgery team to allow for better drainage. Unable to remove all sutures as patient did not tolerate - Appreciate recommendations from hand surgery team - Will follow up repeat imaging - Further plan pending imaging findings -Discussed with chief resident Dr. Sanders and attending Dr. Marroquin who agree with the plan of care. Subjective Chief Complaint RUE abscess History of Present Illness Molly Beasley is a 34 y.o. female with history noted below who presents to [facility] as a transfer from outside facility for right upper extremity abscess with concern for necrotizing fasciitis. Patient initially presented to the outside hospital on 04/02 reporting prior IV cocaine use. CTof the right upper extremity at that time showed extensive myositis, cellulitis, and developing ill-defined abscess at the level of the shoulder as well as reactive right axillary adenopathy. There was no evidence of necrotizing fasciitis at this time. Patient was given IV antibiotics and I&D by general surgery on 04/03 without complication. Patient was also noted to have swelling in her left upper extremity. Repeat CT of the right arm on 04/06 with concern for worsening infection. Patient was transferred to [facility] to rule out nec fasc. Patient is febrile, tachycardic. On IV antibiotics. Significantly tender to palpation in the right upper extremity. PMH: IV drug use, xylozene infection, depression, anxiety PSH: I&D of RUE (04/02) Anticoagulation: None Last colonoscopy: N/A Social Hx: + tobacco use, IV drug use . Review of Systems Positive for: Fever, Chills, and arm pain Negative for: Nausea, Vomiting, Chest Pain, Shortness of Breath , and Abdominal Pain No past medical history on file. No past surgical history on file. No family history on file. Social History[1] Allergies[2] Medications Prior to Admission Medications: No current outpatient medications on file. Objective Physical Exam Vitals: 04/06/25 2056 04/06/25 2120 BP: (!) 167/93 BP Location: Right leg Patient Position: Lying Pulse: (!) 104 Resp: 18 Temp: (!) 100.3 ??F (37.9 ??C) TempSrc: Oral SpO2: 93% Weight: 73.7 kg (162 lb 7.7 oz) Height: 1.58 m (5' 2.21 ) Intake/Output Summary (Last 24 hours) at 04/06/2025 2356 Last data filed at 04/06/2025 2333 Gross per 24 hour Intake 1000 ml Output -- Net 1000 ml Gen: Awake, alert, resting comfortably in no acute distress HEENT: Normocephalic, atraumatic CVS: Normal rate, regular rhythm Pulm: No increased work of breathing on room air Abd: Soft, nontender , nondistended Extremities: RUE with significant erythema and tenderness to the upper arm. Compartments remain soft. Stitches from prior I&D in antecubital fossa with some purulent drainage. Approximately 1/2 of sutures removed with drainage of purulent fluid. Pocket on R forearm drained at bedside by hand team. L team also with significant erythema. Skin: Warm and dry. Relevant data reviewed: Labs, Notes, Meds and Radiology No results found for this or any previous visit (from the past 24 hours). Imaging: No results found. Sign: Jelly Cancino MD General Surgery, PGY2 [1] Social History Tobacco Use Smoking status: Every Day Types: Cigarettes Passive exposure: Current Smokeless tobacco: Current [2] No Known Allergies Cosigned by Harmony Marroquin MD at 04/07/2025 6:24 AM EDT Associated attestation - Harmony Marroquin MD - 04/07/2025 6:24 AM EDT Surgery Attending Attestation I have personally interviewed and examined the patient and reviewed the note below. I agree with the history, exam, assessment and plan as detailed in the note with the following additions/exceptions/observations: CT scan personally reviewed - myositis, cellulitis and fluid tracking along fascial planes, no air present. RUE edematous, AC draining purulent fluid, some sutures still present. No plans for urgent operative intervention at this time, will require coordinated care with Hand/Ortho. IV abx. Elevate arm. Will benefit from removal of the rmainder of sutures in AC if patient will allow. Will turn over care to EGS team today - please TT with questions.. Harmony Marroquin MD 6:20 AM * Healy Myriam De La Fuente PA-C - 04/06/2025 10:31 PM EDTAssociated Order(s): IP CONSULT TO ORTHOPEDIC SURGERY Hand Consult Note Name: Molly Beasley Age: 34 y.o. Sex: female Principal Problem: Hand abscess (POA: Yes) Resolved Problems: Patient evaluated at bedside at 2245 Subjective Chief Complaint Bilateral upper extremity pain History of Present Illness 34 year old right hand dominant female with a past medical history of IVDU, ADHD, depression and anxiety, presents to as a direct transfer to the medical service from OSH due to concern for right upper extremity abscess/surgical evaluation for necrotizing fasciitis. She reports she originally presented to [facility] this past Monday for worsening pain of her right arm s/p injecting her arm with cocaine. She was hospitalized and underwent an I&D of her right arm in the OR on 04/05 there. Imaging reads from the OSH stated extensive myositis, cellulitis and developing ill-defined abscesses throughout bilateral upper extremities without soft tissue gas. She was given vanco and zosyn there. Labs at the OSH significant for WBC 12.7, H/H 9/25.7, creatinine 0.59. Blood culture positive for MRSA on 04/02. Objective Medications Medication/MAR Report: Medications Scheduled Medication Ordered Dose/Rate, Route, Frequency Last Action senna-docusate (SENNA-S) 8.6-50 MG tablet 2 tablet 2 tablet, PO, Nightly Ordered vancomycin (VANCOCIN) IV dosing PER PHARMACY PROTOCOL No Dose/Rate, Protocol, Pharmacy Protocol Orders Ordered vancomycin (VANCOCIN) 1,250 mg in sodium chloride (NS) 0.9 % 250 mL IVPB-WTD 1,250 mg, IV, Q12H Ordered Continuous Medication Ordered Dose/Rate, Route, Frequency Last Action lactated ringers (LR) infusion 100 mL/hr, IV, Continuous New Bag, 100 mL/hr at 04/06 2333 PRN Medication Ordered Dose/Rate, Route, Frequency Last Action acetaminophen (TYLENOL) tablet 650 mg 650 mg, PO, Q6H PRN Given, 650 mg at 04/07 0055 bisacodyl (DULCOLAX) suppository 10 mg 10 mg, RE, Daily PRN Ordered HYDROmorphone (DILAUDID) injection 0.5 mg 0.5 mg, IV, Q3H PRN Ordered HYDROmorphone (DILAUDID) injection 0.8 mg 0.8 mg, IV, Q3H PRN Ordered HYDROmorphone (DILAUDID) injection 1 mg 1 mg, IV, Q3H PRN Given, 1 mg at 04/06 2327 lactulose (ENULOSE) 10 gm/15 mL solution 20 g 30 mL, PO, Q4H PRN Ordered naloxone (NARCAN) 0.4 mg/mL injection 0.4 mg 0.4 mg, IV, Q5 Min PRN Ordered Allergies[1] Physical Exam Vitals: 04/06/25205504/06/252119 BP: (!) 167/93 BP Location: Right leg Patient Position: Lying Pulse: (!) 104 Resp: 18 Temp: (!) 100.3 ??F (37.9 ??C) TempSrc: Oral SpO2: 93% Weight: 73.7 kg (162 lb 7.7 oz) Height: 1.58 m (5' 2.21 ) No intake or output data in the 24 hours ending 04/06/251 General: patient alert and oriented x3, in moderate distress Right upper extremity: Surgical incision site at the antecubital fossa closed with sutures activelydrainage foul smelling seropurulent fluid. Erythema and edema throughout the entire arm. Tender with palpation throughout. Compartments full but compressible. Able to partially flex/extend MCP/PIP/DIP joints. Significantly decreased ROM of wrist, elbow, shoulder secondary to pain. Senate R/U/M to light touch. Fires EPL, FPL, interossi, ADQ, animal breeder strength, wrist extensors/flexors. Radial pulse palpable, entire arm warm to the touch, capillary refill within 2 seconds. Attempted to remove sutures from surgical incision site at bedside to allow the purulent fluid to better drain but patient did not tolerate it well and only a few sutures were removed. The area was covered with gauze and secured with tape. Procedure: I&D Right Volar Forearm Abscess After risks and benefits of the procedure were discussed with the patient, including but not limited to damage to surrounding structures, nerves, vessels, soft tissues, bone, need for further surgery, infection, pain, and scar the patient agreed to proceed with the incision and drainage of the right volar forearm abscess. Approximately 3 cc of 1% lidocaine without epinephrine was injected circumferentially around the abscess to acquire analgesia in a sterile manner. The hand was once again cleaned and prepped for the I&D. A scalpel was then used to make a longitudinal incision approximately 1.2 cm over the most fluctuant area of the mass. 5 ml of purulent drainage was expressed. Cultures were taken. A Luda clamp was used to spread and break up any loculations present in the abscess and all purulent material was attempted to be expressed. The wound was packed with iodoform. Dry sterile gauze was then placed and secured with tape. The patient tolerated the procedure well. Left upper extremity: Erythema and edema from the elbow distally throughout the forearm and hand. Tender with palpation throughout the distal 1/2. Compartments full but compressible. Able to partially flex/extend MCP/PIP/DIP joints. Decreased ROM of wrist, elbow (unable to fully extend), secondary to pain. Able to range her shoulder without issues. Senate R/U/M to light touch. Fires EPL, FPL, interossi, ADQ, animal breeder strength, wrist extensors/flexors. Radial pulse palpable, forearm warm to the touch, capillary refill within 2 seconds. Relevant data reviewed: WBC 12.7, H/H 9/25.7, creatinine 0.59. Blood culture positive for MRSA on 04/02. Imaging Studies: Pending CT imaging Assessment & Plan Assessment 34 year old right hand dominant female with a past medical history of IVDU, ADHD, depression and anxiety, presents to as a direct transfer to the medical service from OSH due to concern for right upper extremity abscess/surgical evaluation for necrotizing fasciitis. She underwent an I&D of her right arm in the OR on 04/05 there. Imaging reads from the OSH stated extensive myositis, cellulitis and developing ill-defined abscesses throughout bilateral upper extremities without soft tissue gas. She was given vanco and zosyn there. Labs at the OSH significant for WBC 12.7, H/H 9/25.7, creatinine 0.59. Blood culture positive for MRSA on 04/02. Plan -Recommend General Surgery consult for further recommendations and management of soft tissue abscesses proximal to the elbow. -Activity: NWB BLE for soft tissue rest -Diet: NPO;meds -Ice as needed -Pain medication as needed -Elevate upper extremities to help with swelling -Maintain dressings as applied, do not get wet -Continue IV antibiotics -[]Wound culture pending -[]CT right upper extremity pending -DVT Prophylaxis recommendations: PAS -Further hand surgery plans pending review of imaging Dr. Vega in agreement with assessment and plan Please reach out to the orthopedic surgery service with any further questions or concerns. Sign: Indio Miguel PA-C Orthopedic Surgery 04/06/2025 10:31 PM [1] No Known Allergies Cosigned by Олег Vega MD at 04/09/2025 7:35 AM EDT documented in this encounter Nursing Notes * Gisela Givens RN - 04/10/2025 11:50 PM EDT 2350 Right arm packed with 2kerlix posterior arm and 2 kerlix anterior part and 1 kerlix to right chest tunneling to arm documented in this encounter Miscellaneous Notes * Plan of Care - Ophelia Soto RN - 04/14/2025 8:14 PM EDT Outcome Evaluation: Report given to Remigio COREA and Ambulance staff. Pt informed of transfer, belongings packed and sent with patient. Indicated documents for discharge provided for ambulance staff. Ophelia Soto 04/14/2025 8:14 PM * Plan of Care - Edmond Marion DO - 04/14/2025 1:52 PM EDT Images from the original note were not included. Packing Change Premedication: patient was given 0.5 mg dilaudid before R chest packing change Removed: - 1 kerlix from R chest Packed: - 3/4 kerlix soaked in NS placed into R chest Wound was covered with abd pad and taped to chest. Edmond Marion DO General Surgery PGY-1 * Provider Documentation Query - Galdino Cunningham MD - 04/14/2025 12:41 PM EDT Request for Documentation Clarification [facility] Molly Beasley ; VISIT [id number] Query Response Sent: 04/14/25 12:41 EDT From: Galdino Cunningham MD Query question: Based on your professional medical judgement and review of the clinical indicators listed below, can you validate this diagnosis? Please complete by selecting one of the options below. Provider response: Acute hypoxic respiratory failure has been ruled out Original Query Sent: 04/14/25 12:25 EDT From: Patricia Palacios, [facility] To: Galdino Cunningham MD By submitting this query, we are seeking further clarification of documentation to accurately reflect all conditions that you monitored, evaluated, treated, or that may have extended the hospitalization or utilization of additional resources for care. Reason for Clarification PROGRESS by Sd Echevarria at 04/09/2025 07:31 Acute hypoxic respiratory failure Respiratory Intubation for airway protection -Ventilator protocol -Propofol for ventilator tolerance -Wean supplemental O2 as tolerated for SpO2 goal > 92% -Albuterol Q6H prn for wheezing Based on your professional medical judgement and review of the clinical indicators listed below, can you validate this diagnosis? Please complete by selecting one of the options below. * Acute hypoxic respiratory failure is ruled in (if so, please provide the evidence used to supportthis diagnosis) * Acute hypoxic respiratory failure has been ruled out * Other explanation of clinical findings (please specify) Clinical Information * Signs and Symptoms * Labs: Elevated white blood cell count at 15.0 Thou/uL (04/08/2025, Anisa Perez PROGRESS), Hematocrit levels at 25.1* and 22.4* (04/08/2025, Sd Echevarria, PROGRESS). * Cultures: Tissue culture identified Methicillin Resistant Staph aureus (MRSA) (04/14/2025). * Diagnostic imaging: CT of the extremity showed extensive myositis, cellulitis, and several ill-defined abscesses throughout the bilateral upper extremities (04/09/2025, Roderick Boyer, PROGRESS). * Mental status: Confused, CAM-ICU Delirium Present: Positive (04/09/2025, Ani Brown, PROGRESS). * Pain report: Severe 10 out of 10 pain in bilateral upper extremity (04/07/2025, Dandre Valdez, H&P). * Oxygen saturation: O2 Sat: 87 % (04/07/2025). * Bacteremia: MRSA bacteremia noted (04/11/2025, Anisa Perez, PROGRESS). * Risk Factors * Infection: Infection of wound due to methicillin resistant Staphylococcus aureus (MRSA) (04/09/2025, Melissa Alan, CONSULT). * Sepsis: Was given a dose of vancomycin and Zosyn, IV fluids given per sepsis protocol (04/07/2025,Dandre Valdez, H&P). * Treatment * Ventilator: Intubation for airway protection, ventilator protocol (04/09/2025, Sd Echevarria, PROGRESS). * IV antibiotics: Vancomycin 1250mg Q12H (04/07-04/09), Linezolid 600mg Q12H (04/09-) (04/09/2025, Sd Echevarria, PROGRESS). * IV fluids: Lactated Ringers at 50 mL/hr (04/11/2025, Joseph Campbell PROGRESS). * Plan of Care - Malaika Stewart CM - 04/14/2025 10:52 AM EDT Ongoing Case Management Care Plan Note Summary: Patient is s/p I&D of RUE abscess. 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 Per EGS team, she will not need IV antibiotics upon discharge. Therefore, patient should be able to return home with home care services for wound care. Additional HC referrals made to agencies that service [place], [place]. CM to follow clinical progress towards return home. Recommendation: Home with services, SNF vs. Transfer back to [facility] Addendum 2:30PM: Per ID, patient will need six more weeks of IV antibiotics. She has SNF referrals pending, with no bed offer as of yet. CM made additional SNF referrals in the [facility] area. EGS plans to contact [facility] to try to transfer patient back now that she is medically stable and currently has no SNF bed offers. CM to follow. Malaika Stewart 04/14/2025 10:52 AM * Plan of Care - Dayana Adkins RN - 04/14/2025 5:15 AM EDT Plan of Care Reviewed With: patient Progress: improving Outcome Evaluation: Patient's pain well controlled on current regimen. Remains alert and oriented x4. Tolerating diet, no complaints of nausea and no vomiting. Dressings to arm in tact, reinforced asneeded. Up to the commode with an assist of 1 voiding adequately. Fall, skin and contact precautions maintained. Safety maintained. Dayana Adkins 04/14/2025 5:15 AM * Plan of Care - Myrna Ruiz RN - 04/13/2025 6:56 PM EDT Patient was admitted to unit Fully conscious alert and orientated. Pain is well managed on current pain regime. No complain was made of nausea or vomit.patient ambulated out of bed to washroom. Isolation precaution is maintained. Education was provided. All safety measures are in place. Plan of care continues. Myrna Ruiz 04/13/2025 6:56 PM * Plan of Care - Alanis Franco MD - 04/13/2025 1:13 PM EDT Packing Change Premedication: Try to time close to methadone dosing, needs dilaudid before and during, currently has dpca Removed: - 1 kerlix from Lateral RUE - 1 kerlix from Medial RUE - 1 kerlix from Anterior R chest - 1 kerlix from LUE Packed: - 1 saline soaked kerlix backed into lateral RUE wound - 1 saline soaked kerlix packed into medial RUE wound - 3/4 saline soaked kerlix packed into R anterior chest wound - 1/4 saline soaked kerlix packing into LUE using cotton swab due to sharp foreign bodies All wounds covered in abd pads and tapped or wrapped with dry kerlix Alanis Franco MD 04/13/25 1:13 PM * Plan of Care - Edmond Marion DO - 04/12/2025 10:12 PM EDT Packing Change One kerlix was removed from lateral RUE, one kerlix removed from medial RUE, one kerlix removed from anterior R chest, and another kerlix removed from LUE. 1 kerlix lightly soaked in NS was packed into the lateral RUE wound. 1 kerlix lightly soaked in NS was packed into the medial RUE wound. 1 kerlix lightly soaked in NS was packed into the R anterior chest wound. Using a cotton swab (due to sharp foreign bodies present in LUE), 1/4 kerlix lightly soaked in NS was packed into the LUE wound Abd pads were placed over top with tape. Edmond Marion DO General Surgery PGY-1 * Rehab Therapy Consults - Clarice Montoya CCC-HAULING CONTRACTOR - 04/12/2025 9:12 AM EDT Speech Pathology Clinical Swallow Evaluation IMPRESSION & PLAN Swallow Function Clinically functional oropharyngeal swallow, no overt s/sx of airway compromise noted Mentation appeared adequate during assessment, vocal quality clear/WFL, respiratory status stable May initiate PO diet with distant supervision and good oral care HAULING CONTRACTOR Plan: Monitor to ensure diet tolerance and trend any acute clinical indicators of dysphagia. RECOMMENDATIONS Diet Recommendations: Solid Consistency: Regular Liquid Consistency: Thin Liquids Medication Administration: As tolerated Supervision/Assistance: Close Supervision Oral Care: TID with toothbrush/toothpaste HISTORY OF PRESENT ILLNESS Pt is a 34 y.o. female with pertinent PMHx of IV drug use complicated by history of overdose on methadone,xylozene infection left forearm, depression, anxiety who presented 04/06/2025 as a direct transfer from outside hospital due to concern for right upper extremity abscess/surgical evaluation for the necrotizing fasciitis. Reason for Consult: Aspiration risk Pertinent Results: See results tab PMHx: No past medical history on file. Prior Level of Function: Baseline diet: Regular, Thin liquids, Independent Speech Therapy History: None SUBJECTIVE Patient/family therapy goal statement: To drink water Preferred Language: Serbian Pain: No pain reported, No pain-associated behaviors observed Cognition: A&Ox3-4, Follows commands Diet: NPO except meds Respiratory Status: Room air OBJECTIVE Clinical Swallow Assessment Liquids Presented: Thin Liquids via straw, single swallows, sequential swallows, clinician-regulated, self-fed, clinician-fed Solids Presented: Regular, Puree Oral Phase: Clinically functional Pharyngeal Phase: Clinically functional, No overt clinical s/s of pharyngeal phase impairment Clinical s/s of Dysphagia/Aspiration: None Esophageal Phase: None Dysphagia/Aspiration Risk Stratification Dysphagia/Aspiration-Related Complication Risk: Suspect low risk Malnutrition/Dehydration Risk: Suspect low risk Chronic Risk Factors: No known risk factors Acute Risk Factors: 4 day intubation, AMS, Reduced mobility Dysphagia Outcome Measures IDDSI Functional Diet Scale The IDDSI Functional Diet Scale was designed to capture the severity of oropharyngeal dysphagia as represented by the degree of diet texture recommended for the patient. The diet level is associated with typical diet combinations used in clinical practice. The clinician assigns a food/drink level which generates a functional outcome score. Based on HAULING CONTRACTOR recommendations, patient is assigned food level Level 7: Regular/Easy to Chew and drink level Level 0: Thin Liquids, supporting a functional outcome score of FDS Levels: 8. The presence of a (+) indicates the initiation of PO trials within a therapeutic context. ASSESSMENT HAULING CONTRACTOR Diagnosis: Oral and pharyngeal stages of swallowing appear WFL Suggested Consults/Interventions: N/A Functional Status: Nearing baseline function Therapy Frequency: 1-2x/week Rehab Potential: Good to achieve functional improvement towards stated goals Post Acute HAULING CONTRACTOR Needs: TBD based on clinical progress Goals - Pt will consume a Regular diet with Thin Liquids liquids without evidence of acute dysphagia/aspiration-related complications over 1-3 visit(s) Plan of care discussed with patient, Provider, and RN EDUCATION The patient, Provider, and RN were verbally instructed and educated on patient's results/recommendations. The patient, Provider, and RN verbalized understanding of all information provided. Clarice Montoya CCC-HAULING CONTRACTOR 04/12/25 * Plan of Care - Joe Campbell RRT - 04/12/2025 5:37 AM EDT Problem: Mechanical Ventilation Invasive Goal: Effective Communication Outcome: Met Goal: Optimal Device Function Outcome: Met Goal: Mechanical Ventilation Liberation Outcome: Met Problem: Adult Inpatient Plan of Care Goal: Plan of Care Review Flowsheets (Taken 04/12/2025 0535) Progress: improving Outcome Evaluation: Pt successfully weaned and extubated from ventilatory support at 5:25am, pt tolerated well. Weaning mechanics all within normal values, HCT made decision to extubate. Pt vocal post extubation, no stridor noted, placed on 4L nasal cannula. Progress: improving Outcome Evaluation: Pt successfully weaned and extubated from ventilatory support at 5:25am, pt tolerated well. Weaning mechanics all within normal values, HCT made decision to extubate. Pt vocal post extubation, no stridor noted, placed on 4L nasal cannula. Joe Campbell 04/12/2025 5:37 AM * Plan of Care - Mikal Valadez RN - 04/11/2025 7:41 PM EDT Problem: Infection Goal: Absence of Infection Signs and Symptoms Outcome: Not Progressing Problem: Pain Acute Goal: Optimal Pain Control and Function Outcome: Not Progressing Problem: Mechanical Ventilation Invasive Goal: Optimal Nutrition Delivery Outcome: Not Progressing Problem: Adult Inpatient Plan of Care Goal: Plan of Care Review Outcome: Progressing Goal: Patient-Specific Goal (Individualized) Outcome: Progressing Goal: Absence of Hospital-Acquired Illness or Injury Outcome: Progressing Goal: Optimal Comfort and Wellbeing Outcome: Progressing Goal: Readiness for Transition of Care Outcome: Progressing Problem: Skin Injury Risk Increased Goal: Skin Health and Integrity Outcome: Progressing Problem: Fall Injury Risk Goal: Absence of Fall and Fall-Related Injury Outcome: Progressing Problem: Mechanical Ventilation Invasive Goal: Effective Communication Outcome: Progressing Goal: Optimal Device Function Outcome: Progressing Goal: Mechanical Ventilation Liberation Outcome: Progressing Goal: Absence of Device-Related Skin and Tissue Injury Outcome: Progressing Goal: Absence of Ventilator-Induced Lung Injury Outcome: Progressing Problem: Oral Mucous Membrane Integrity Impairment Goal: Improved Oral Health Outcome: Progressing Problem: Restraint, Nonviolent Goal: Absence of Harm or Injury Outcome: Progressing PT oriented to self and place, confused, CAM +, follows x3, no movement in RUE. PT pain requiring multiple PRN coverage, with good effect. PT continues to be hypertensive at times requiring PRN labetalol, good effect. PT propofol gtt weaned to 10/hr, tolerating well. PT tube feeds held by care teamd/t possibility of extubation. PT and family briefed on POC, safety maintained, will continue to monitor. Mikal Valadez 04/11/2025 7:41 PM * Plan of Care - Bianca Luis RRT - 04/11/2025 3:31 PM EDT Problem: Mechanical Ventilation Invasive Goal: Effective Communication Outcome: Progressing Goal: Optimal Device Function Outcome: Progressing Goal: Mechanical Ventilation Liberation Outcome: Progressing Goal: Absence of Device-Related Skin and Tissue Injury Outcome: Progressing Goal: Absence of Ventilator-Induced Lung Injury Outcome: Progressing Pt received a bedside dressing change today , then per team was changed to cpap with the goal of extubation, pt remains very sleepily at this time Unable to obtain mechanics at this time. And unable to extubate at this time Bianca Luis 04/11/2025 3:31 PM * Plan of Care - Mona Ledbetter RN - 04/11/2025 1:34 PM EDT Case Management Care Plan Note Summary: Per clinical progression rounds with the bedside RN and provider, and ongoing continuing care assessment, patient is not yet clinically stable for transition. Patient remains intubated on vent support in ICU. Weaning propofol with plan to extubate soon. Transitioning dilaudid gtt to dPCA, ketamine gtt continued. Anesthesia consulted for R sided interscalene block. Wound dressings changed by surgery today. Pending clinical progression for transition planning. Mona Ledbetter 04/11/2025 1:34 PM * Plan of Care - Mateus Garcia RRT - 04/11/2025 6:16 AM EDT Pt remains intubated and on VC-SIMV settings. Pt traveled to OR and tolerated the travel well with no issues. No changes made overnight. POC ongoing Problem: Adult Inpatient Plan of Care Goal: Plan of Care Review Outcome: Not Progressing Problem: Mechanical Ventilation Invasive Goal: Effective Communication Outcome: Not Progressing Goal: Optimal Device Function Outcome: Not Progressing Goal: Mechanical Ventilation Liberation Outcome: Not Progressing Goal: Absence of Device-Related Skin and Tissue Injury Outcome: Not Progressing Goal: Absence of Ventilator-Induced Lung Injury Outcome: Not Progressing Mateus Garcia 04/11/2025 6:16 AM * Op Note - Shaila Solorio MD - 04/10/2025 10:23 PM EDT Images from the original note were not included. [facility] 8 ICU [address] [facility] [id number] OPERATIVE REPORT Patient Name: Molly Beasley Date of : 1990 Date of Procedure: 04/10/2025 Surgeons and Role: * Shaila Solorio MD - Primary Pre-op Diagnosis: Abscess of arm, right [L02.413] Post-Op Diagnosis Codes: * Abscess of arm, right [L02.413] Details of Procedure Procedure(s): DEBRIDEMENT WOUND RIGHT UPPER EXTREMITY, LEFT UPPER EXTREMITY, RIGHT CHEST WALL Additional Procedures Surgeon: Shaila Solorio MD Online Marketing Specialist: none Anesthesia: general Indications: 34-year-old female with anxiety, depression and IVDU, who presents with right upper extremity pain. Patient was found to have multiple abscesses extending from her right upper arm into the axilla and chest wall, requiring multiple debridements on 04/07, 04/08 and 04/09. She now presents for a fourth look to ensure source control. As patient does not have identified LNOK, she is brought to the operating room under emergent consent. Description of Procedure: Patient was brought to the operating room and placed supine on the operating room table with arms abducted. Monitoring and sequential compression devices were applied. General anesthesia was induced without incident. No additional antibiotics were administered as patient was on scheduled antibiotics. The right upper extremity, axilla and chest wall were prepped with Betadine and draped in the usual sterile fashion. A time-out was conducted, verifying the correct patient, procedure and equipment. The arm wound was bluntly explored. There was a moderate amount of hematoma within the posterior arm at the site of the triceps incision that was evacuated. There were multiple areas within the subcutaneous tissues and the musculature that were oozy, which was controlled using electrocautery. No purulence was noted in the right upper extremity, axilla or chest wall suggestive of undrained cavities. There was ischemic skin edges at the medial arm incision that was excised using #15 blade scalpel. Fatty necrosis of the subcutaneous tissues and remainder of the gelatinous fascia were excised. Small portion of the biceps muscle that appeared ischemic was also debrided back to healthy muscle. Exc isional debridement was minimal, approximately 10 squared cm each for skin, subcutaneous tissues and muscle. Attention was then turned to the axilla and chest wall wound. With blunt finger exploration, the two cavities were found to be communicating. A 1/2 inch [place] drain was placed, which was tied to itself using 0-silk sutures. No purulence was found. Given adequate source control, decision was then made to copiously irrigate the right arm, axilla and chest wall using a total of 6 L Pulsavac irrigation. Hemostasis was checked. The right chest wall was packed with 1 Kerlix roll, the right medial arm/axilla was packed with 2 Kerlix rolls tied to itself and the right posterior arm was packed with 2 Kerlix rolls tied to itself. The remainder of the arm was dressed with Kerlix roll, ABD and Omid wrap. The left arm packing change was also performed using a Fuad and dressed with Kerlix and Medipore tape. All instrument, needle and sponge counts were correct at the end of the case. Patient was emerged from anesthesia, remained intubated and transferred to ICU in stable condition. I, as the attending surgeon, was present and scrubbed for the entirety of the case. Complications: none Operative Findings: Moderate hematoma in the left upper extremity at the triceps incision, multipleareas of oozing subcutaneous tissues within the tunnel, minimal excisional debridement of skin, fatty necrosis of subcutaneous tissues and ischemic muscle, no purulence noted Total Fluids: See anesthesia records Drains: Mitul Estimated Blood Loss: 50 mL Blood Transfusion: No Implants: * No implants in log * Specimens: * No specimens in log * Disposition: taken directly to the ICU, intubated and in a stable condition. Condition: stable Shaila Solorio MD Date: 04/11/2025 Cc: Provider Not In System * Plan of Care - Joe Soares RRT - 04/10/2025 3:04 PM EDT Problem: Adult Inpatient Plan of Care Goal: Plan of Care Review Outcome: Not Progressing Flowsheets (Taken 04/10/2025 1504) Progress: no change Outcome Evaluation: pt continues to maintain on IMV mode per HCT. pt to go to OR today. no signs ofresp. distress on current settings. Problem: Mechanical Ventilation Invasive Goal: Mechanical Ventilation Liberation Outcome: Not Progressing Progress: no change Outcome Evaluation: pt continues to maintain on IMV mode per HCT. pt to go to OR today. no signs ofresp. distress on current settings. Joe Soares 04/10/2025 3:04 PM * Plan of Care - Roderick Boyer MD - 04/10/2025 5:50 AM EDT No orthopedics surgical intervention is currently planned. The general surgery service is performing serial debridements of the upper extremities. We will sign off. Please contact the orthopedics pager with any questions or concerns. Roderick Boyer MD 04/10/25 * Plan of Care - Mateus Garcia RRT - 04/10/2025 4:32 AM EDT Pt remains intubated and on VC-SIMV settings. No changes made overnight. Problem: Adult Inpatient Plan of Care Goal: Plan of Care Review Outcome: Not Progressing Problem: Mechanical Ventilation Invasive Goal: Effective Communication Outcome: Not Progressing Goal: Optimal Device Function Outcome: Not Progressing Goal: Mechanical Ventilation Liberation Outcome: Not Progressing Goal: Absence of Device-Related Skin and Tissue Injury Outcome: Not Progressing Goal: Absence of Ventilator-Induced Lung Injury Outcome: Not Progressing Mateus Garcia 04/10/2025 4:32 AM * Significant Event - Christina Penn APRN - 04/09/2025 6:42 PM EDT Notified by ICU provider that her arm dressing was saturated. Hemodynamically stable. Given a unit of blood. She was seen and evaluated at bedside. Dressing taken down with Dr. Hussain Bray, no active bleeding noted, clot evacuated. Arm was repacked with 2 Kerlix (tied together), dry fluff gauze and 4 ABD pads as well as one heavy drainage pad in place. Arm wrapped in Kerlix then Omid bandage. ICU team will continue to monitor her h/h and dressing. Christina Penn APRN General Surgery 04/09/2025 6:47 PM * Plan of Care - Sd Echevarria MD - 04/09/2025 6:28 PM EDT Family Update Patient's boyfriend, Bryce, was met for an update regarding Molly Otero's care. After having the boyfriend confirmed the patient's identity in a HIPPA appropriate manner, they were informed that Ms. Beasley had been taken to the operating room to try to control the infection again this afternoon, and he was updated regarding medication regimen from an infectious disease standpoint, her hemodynamic status and her overall clinical picture. All of their concerns and questions were addressed during the meeting. Sd Echevarria MD 04/09/25, 6:28 PM Surgical ICU Team * Op Note - Db Lynn MD - 04/09/2025 3:32 PM EDT Images from the original note were not included. [facility] 8 ICU [address] [facility] [id number] OPERATIVE REPORT Patient Name: Molly Beasley Date of : 1990 Date of Procedure: 04/09/2025 Surgeons and Role: * Db Lynn MD - Primary * Clarice Hernandez DO - Resident - Assisting * Hussain Bray DO - Resident - Assisting Pre-op Diagnosis: Abscess of arm, right [L02.413] Post-Op Diagnosis Codes: * Abscess of arm, right [L02.413] Details of Procedure Procedure(s): DEBRIDEMENT UPPER EXTREMITY AND CHEST Additional Procedures Surgeon: Db Lynn MD Online Marketing Specialist: DO Hussain Cazares DO Anesthesia: general Indications: NSTI of RUE, LUE, and R chest wall. Description of Procedure: The patient was taken to the operating room placed supine position the operating room table. The ptcame intubated from the SICU. General anesthesia was induced. The patient was prepped and draped inusual sterile fashion circumferentially around her right and left upper extremities and across her chest. Attention was first turned to the patient's right upper extremity. The right biceps had purulence and gelatinous fascia which was washed out and excised sharply using stephen. The abscess cavities extended further between the muscle bellies of the biceps and circumferentially to the tricep and into the axilla. An incision was made over the length of the right triceps once again releasing purulent drainage and showing gelatinous fascia. Once again the wound was washed out and excised sharply using stephen. The wounds were packed using lap pads. Attention was then turned to the left upper extremity. The wound was clean with no extension of abscess. Attention was then turn to the right anterior chest. A curvilinear incision was made along the pectoralis major clavicular and cephalad sternal origins the muscle was encountered and incised with electrocautery entering the space posterior to the pec major. There was copious purulent fluid was was released. Hemostasis was achieved. The post pectoral space was packed. A Pulsavac was used with a total of 6 L of saline to the point where the effluent ran clear of boththe right arm and the chest wall. The wound bellies had healthy bleeding tissue in the bases. Satisfied with the incisions and drainage to the immediate safe extent necessary the decision was made to once again pack the wounds. Moistened Kerlix was placed into the right upper extremity, chestwall and the left AC was packed. In the RUE 3 kerlix tied together were packed anterior; 2 kerlix tied together posterior incisions.The chest was packed with 1 kerlix. The left AC was packed with a single small kerlix. The right upper extremity was wrapped with dry Kerlix ABD pads and a Omid wrap. The chest was dressed with abd pads. A dressing was placed in the left AC as well. At the conclusion of this case all instrument sponge and needle counts were correct. The patient tolerated the procedure well and was extubated. The patient was to be brought to PACU in stable condition. Complications: none Operative Findings: Extensive abscesses of the right upper extremity extending into the axila and chest wall. Smaller abscess in the left AC fossa was clean. Total Fluids: 1200 mL Drains: None Estimated Blood Loss: 300 mL Blood Transfusion: PRBC: Number of units 2 and FFP: Number of units 1 Implants: * No implants in log * Specimens: * No specimens in log * Disposition: SICU Condition: critical Db Lynn MD Date: 04/09/2025 * Plan of Care - Joe Soares RRT - 04/09/2025 2:20 PM EDT Problem: Adult Inpatient Plan of Care Goal: Plan of Care Review Outcome: Not Progressing Flowsheets (Taken 04/09/2025 1419) Progress: no change Outcome Evaluation: pt to maintain on current settings of IMV mode per HCT request. no changes madeor planned at this time. pt to go to OR today. Problem: Mechanical Ventilation Invasive Goal: Effective Communication Outcome: Not Progressing Goal: Optimal Device Function Outcome: Not Progressing Goal: Mechanical Ventilation Liberation Outcome: Not Progressing Goal: Absence of Device-Related Skin and Tissue Injury Outcome: Not Progressing Goal: Absence of Ventilator-Induced Lung Injury Outcome: Not Progressing Progress: no change Outcome Evaluation: pt to maintain on current settings of IMV mode per HCT request. no changes madeor planned at this time. pt to go to OR today. Joe Soares 04/09/2025 2:20 PM * Plan of Care - Shreyas Vargas RN - 04/09/2025 6:18 AM EDT Pt arrived from OR this evening. Propofol titrated to meet Rass goal. Dilaudid gtt started, as wellas PRN Dilaudid given, see MAR. Pt with low temp on arrival, providers aware, andrew hugger placed with good effect. NGT placed. Pt down to CT scan overnight. Labs drawn, H&H down-trending provideraware, electrolytes replaced- see MAR. Notified by CB2 RN that miscellaneous pills found in pts belongings and sent to pharmacy by CB2. Belongings searched again on C8[employer]- lighters, money/drivers license, vape and ring sent to safe. Problem: Adult Inpatient Plan of Care Goal: Plan of Care Review Outcome: Progressing Goal: Patient-Specific Goal (Individualized) Outcome: Progressing Flowsheets (Taken 04/09/2025 0618) Anxieties, Fears or Concerns: lauren, ett Individualized Care Needs: care clustered Goal: Absence of Hospital-Acquired Illness or Injury Outcome: Progressing Goal: Optimal Comfort and Wellbeing Outcome: Progressing Goal: Readiness for Transition of Care Outcome: Progressing Problem: Skin Injury Risk Increased Goal: Skin Health and Integrity Outcome: Progressing Problem: Infection Goal: Absence of Infection Signs and Symptoms Outcome: Progressing Problem: Pain Acute Goal: Optimal Pain Control and Function Outcome: Progressing Problem: Fall Injury Risk Goal: Absence of Fall and Fall-Related Injury Outcome: Progressing Problem: Mechanical Ventilation Invasive Goal: Effective Communication Outcome: Progressing Goal: Optimal Device Function Outcome: Progressing Goal: Mechanical Ventilation Liberation Outcome: Progressing Goal: Optimal Nutrition Delivery Outcome: Progressing Goal: Absence of Device-Related Skin and Tissue Injury Outcome: Progressing Goal: Absence of Ventilator-Induced Lung Injury Outcome: Progressing Problem: Oral Mucous Membrane Integrity Impairment Goal: Improved Oral Health Outcome: Progressing Problem: Restraint, Nonviolent Goal: Absence of Harm or Injury Outcome: Progressing Shreyas Vargas 04/09/2025 6:18 AM * Plan of Care - Nemesio Posadas RRT - 04/09/2025 2:58 AM EDT Plan of Care Reviewed With: patient Progress: no change Outcome Evaluation: Pt arrived to ICU from OR. Pt placed on VC-SIMV. Pt taken to CT scan in ED.[id number] to 40%. No other changes made. POC is ongoing. Nemesio Posadas 04/09/2025 2:58 AM * Op Note - Vicky Sanders MD - 04/08/2025 7:22 PM EDT Images from the original note were not included. [place] [id number] [address] [facility] [id number] OPERATIVE REPORT Patient Name: Molly Beasley Date of : 1990 Date of Procedure: 04/08/2025 Surgeons and Role: * Galdino Cunningham MD - Primary * Shaila Solorio MD - Assisting * Vicky Sanders MD - Resident - Assisting Pre-op Diagnosis: Abscess of arm, right [L02.413] Post-Op Diagnosis Codes: * Abscess of arm, right [L02.413] Details of Procedure Procedure(s): INCISION & DRAINAGE Anesthesia: general Indications: RUE abscess. Description of Procedure: The patient was brought to the operating room and placed in the supine position with arms abducted.Preoperative briefing was performed verifying correct patient, procedure, site, positioning, and implant(s) and/or special equipment and all parties were in an agreement to proceed. General endotracheal anesthesia was induced. Preoperative antibiotics were given. Sequential compressive devices wereapplied for DVT prophylaxis. The old packing was removed, pus was immediately encountered at the right arm. The right upper extremity was prepped and draped in the usual sterile fashion. Copious amount of purulent fluid was seen coming from the upper arm, the prior incision was extended towards the shoulder. The wound was irrigated using Pulavac with 3L of saline all around the biceps, triceps, and towards the pectoralis major. We identified the insertion of the pec major, the neuro vascular bundle was seen and preserved. There was a small superficial tract going towards the chest, purulent material was also encountered and washed out. 3 more L of saline were used via Pulsavac and there was no purulence at the end of the case. The incision was washed out with betadine and then2 betadine soaked plus one dry kerlixes were tied together and packed. The right upper extremity was wrapped with dry Kerlix ABD pads and a Omid wrap. A dressing was placed in the left AC as well. At the conclusion of this case all instrument sponge and needle counts were correct. The patient tolerated the procedure well and was extubated. The patient was brought to ICU in stable condition. was scrubbed and present for the entirety of the case. Complications: none Operative Findings: -RUE incision was extended towards the shoulder -Deep and superficial tracts going towards pectoralis major -Washed out with 6L saline via Pulsavac -2 betadine soaked plus 1 dry kerlixes packed Drains: None Estimated Blood Loss: 25 mL Blood Transfusion: No Specimens: * No orders in the log * Disposition: intubated, stable, to SICU Condition: fair Vicky Sanders MD, PAIGE General Surgery PGY-4 04/08/2025 8:24 PM Cosigned by Galdino Cunningham MD at 04/11/2025 4:39 AM EDT Associated attestation - Galdino Cunningham MD - 04/11/2025 4:39 AM EDT Attending Operative Note Attestation: I was scrubbed and present for the entirety of the procedure. I have reviewed the operative note and agree with the findings. Additional comments or findings if any may be found below. At the end of the procedure all needle, instrument and sponge counts were correct. Galdino Cunningham MD Trauma, General and Critical Care Surgery Pager:# [phone] Office Phone:# [phone] * Plan of Care - Pooja Kaufman RN - 04/08/2025 5:54 PM EDT Problem: Adult Inpatient Plan of Care Goal: Plan of Care Review Plan of Care Reviewed With: patient Molly is A+Ox4, she complains of severe pain in bilat upper extremities, prn iv and po dilaudid given with minimal effect per patient. IV abx and IVF continued. Refused repositioning throughout shift. Continues to be NPO for I/D. Safety precautions maintained. Pooja Kaufman 04/08/2025 5:54 PM * Plan of Care - Kari Bain MD - 04/08/2025 5:50 PM EDT Was messaged by RN that patient's dressing was saturated. Went to bedside to evaluate. There is an area of saturation towards the axilla. It is yellow/serous drainage with small amount of blood. There is not significant saturation of the dressing. She has plan to go to the OR today, therefore we will defer dressing change until then. * Hospital Course - Daisycheryl Galdamez PA-C - 04/08/2025 1:26 PM EDT HPI As per original HPI from surgery consult 34 y.o. female with history noted below who presents to [facility] as a transfer from outside facility for right upper extremity abscess with concern for necrotizing fasciitis. Patient initially presented to the outside hospital on 04/02 reporting prior IV cocaine use. CT of the right upper extremity at that time showed extensive myositis, cellulitis, and developing ill-defined abscess at the level of the shoulder as well as reactive right axillary adenopathy. There was no evidence of necrotizing fasciitis at this time. Patient was given IV antibiotics and I&D by general surgery on 04/03 without complication. Patient was also noted to have swelling in her left upper extremity. Repeat CT of the right arm on 04/06 with concern for worsening infection. Patient was transferred to [facility] to rule out nec fasc. Patient is febrile, tachycardic. On IV antibiotics. Significantly tender to palpation in the right upper extremity. Hospital course Pt presented to on 04/06/25 with RUE abscess concerning for necrotizing fasciitis. Upon workup, diagnostic studies showed abscess from right axilla to bicep, and abscess near left distal bicep suggestive of soft tissue infection with abscess formation in setting of IVDA. They were then admitted to the emergency general surgery team with soft tissue infection dx. Patient was made NPO, started onIVF and IV antibiotics. The risks, benefits and alternatives of surgery were discussed at length. Ultimately, pt decided to proceed with surgery, consent was obtained and she was taken to the operating room on 04/08/25. In the OR, a RUE & LUE I&D washout was performed by Dr. Lynn. Operative findings included extensive abscesses of the right upper extremity surrounding and in between the biceps and triceps muscles as well as tracking into the axilla. Smaller abscess in the left AC fossa. Please see previously dictated operative note for any additional details. Post-operative she was settled on floor tolerated diet. She RTOR on 04/08/25 for 2nd look washout was performed by Dr. Cunningham. Please see previously dictated operative note for additional details. CT bilateral upper extremity/chest/neck/soft tissues obtained which showed ongoing infection to RUE/LUE/R chest wall. 04/09 IDchanged vancomycin to linezolid. Later in the day, patient's arm dressing found to be saturated. Patient seen and evaluated, no active bleeding noted, clot evacuated. 1U RBC administered. Arm was repacked with 2 Kerlix (tied together), dry fluff gauze and 4 ABD pads as well as one heavy drainage pad in place, and wrapped with omid wrap. Patient was taken back to the OR for incision and drainage ofR tricep, R chest wall, and washout. 04/10 ketamine gtt added for analgesia, in addition to clonidine. Patient was taken back to the OR at which time she underwent debridement of right upper extremity, left upper extremity and right chest wall. Op findings included; moderate hematoma, no purulence noted. 04/11 dressing change performed at bedside. Pt was transferred to floor level of care. On 04/14, dressing change performed at bedside with dilaudid 1 mg IV premedicaiton. Pt transitioned to oralnarcotics, continues on IV toradol ATC per pharmacy pain recc. Patient planned to transfer to [facility] for ongoing dressing changes, iv pain medication required to tolerate packing changes and IV antibiotics per ID plan as below: 1. Continue vancomycin IV for 4 wks after last negative blood culture(04/09/25) vanco end date 05/07/25, followed by 2 wks of p.o. doxycycline (05/08/25-05/22/25). 2. Continue clindamycin IV #4/5 (Ends 04/15/25) Packing changes to RUE/R Chest wall wet to dry saline moistened kerlix gauze. Cover with kerlix wrap followed by omid wrap. LUZ has retained needles from patient injecting prior to admission (DO NOT PACK THIS WOUND WITH FINGERS, MUST USE INSTRUMENTS, either luda/forcepts etc) Upon discharge from [facility] patient will follow up with wound clinic affiliated with [facility] for patient convenience. At this time it is felt that she is stable for transfer to [facility]. Upon discussion with the attending physician, Dr. Cunningham, it was decided to discharge the patient on 04/14/25. The patient was given instructions on diet, activity, medications, and follow up and when to return to the emergency department and call the physician's office. Please see patients chart for full details of this patient's hospital stay. * Plan of Care - Monica Adams RN - 04/08/2025 10:01 AM EDT Initial Case Management Care Plan Note Assessment completed with patient and/or patient's international account representative, medical record review and discussion with clinical team. CC met with the patient using social distancing. Provided a Case Coordination packet with contact information, CC pamphlet and Your Next Step: Care Outside the Hospital brochure to the patient and/or patient international account representative. Summary: PMH: IV drug use complicated by history of overdose on methadone,xylozene infection left forearm, depression, anxiety on Xanax and clonidine as prescribed, presents to [facility] as adirect transfer from [facility] due to concern for right upper extremity abscess/surgical eval uation for the necrotizing fasciitis. Patient underwent I&D by general surgery on 04/03 without complication. Wound cultures from 04/03 right arm positive for MRSA and Blood culture 04/02-positive for MRSA 08/04. Now postop day 1 status post bilateral upper extremity I&D's by general surgery team. Spoke with patient and s/o- [place] with patient permission. Patient lives with s/o in 2nd floor aptwith 2 sets of stairs no elevator access. CM updated [facility] as patient no longer lives in [place], [place]. Patient had been working FT. Per s/o, patient had 1 year anniversary of patient's sister's who passed of endocarditis. S/o also reports that patient may have fears of also passing away and developing endocarditis. Patient reports that she used heroin and cocaine 2 days prior to hospital admission. She gets methadone from [facility]. Patient had been independent with ADLs/IADLs And driving. CM updated pharmacy- [facility], [facility], [facility]. Provided list of HC/STR in [place]. Patient is agreeable to place HC and STR referrals. If patient needs emt intermediate IV abx will need SNF. Patient wishes go to home. She has no DME in home. S/o willing to take time off work to take care of her. Patient is agreeable to SW referral. Per patient, Carlos is HCR/POA. Anticipated transition plan: STR in [place] likely if emt intermediate IV abx, possible home with HC Caregiver/responsible person supports: self, s/o PCP: Confirmed- Dr. Arsalan Nelson from [facility] in [place], last seen 1 mos ago Anticipated transportation: health plan vs s/o Referrals made: Made per patient/family choice as outlined in the flowsheet Barriers to discharge: IV abx, OR for possible debridement/drainage, pain pharm consult Problem: Adult Inpatient Plan of Care Goal: Readiness for Transition of Care Outcome: Progressing Monica Adams 04/08/2025 10:01 AM * Plan of Care - Kari Bain MD - 04/08/2025 9:57 AM EDT Was asked by CM to update patient's spouse. Confirmed with patient that it would be okay for me to talk to him. Called patient's spouse listed in the chart, Carlos. I gave him an update on her clinical course including details from the operating room yesterday and plans for today. He was appreciative of the call. All questions answered. * Plan of Care - Millie Prather RN - 04/08/2025 6:03 AM EDT Problem: Fall Injury Risk Goal: Absence of Fall and Fall-Related Injury Outcome: Progressing Problem: Skin Injury Risk Increased Goal: Skin Health and Integrity Outcome: Not Progressing Problem: Pain Acute Goal: Optimal Pain Control and Function Outcome: Not Progressing 1900 - 0700: Molly was A&Ox4 on room air. 2x PRN IV dilaudid given with good effect. IVF and antibiotics continued. Labs drawn off central line. NPO since midnight for procedure. Safety maintained. Millie Prather 04/08/2025 6:03 AM * Plan of Care - Veronica Heaton RN - 04/07/2025 8:45 PM EDT Assumed care of patient at 0700, PRN given for pain control with poor effect, limited ROM to BUE. CT scan/MRI and I & D done today. Central line access obtained. NPO at midnight for repeat I&D tomorrow. Problem: Adult Inpatient Plan of Care Goal: Plan of Care Review Outcome: Progressing Goal: Patient-Specific Goal (Individualized) Outcome: Progressing Goal: Absence of Hospital-Acquired Illness or Injury Outcome: Progressing Goal: Optimal Comfort and Wellbeing Outcome: Progressing Goal: Readiness for Transition of Care Outcome: Progressing Problem: Skin Injury Risk Increased Goal: Skin Health and Integrity Outcome: Progressing Problem: Infection Goal: Absence of Infection Signs and Symptoms Outcome: Progressing Problem: Pain Acute Goal: Optimal Pain Control and Function Outcome: Progressing Problem: Fall Injury Risk Goal: Absence of Fall and Fall-Related Injury Outcome: Progressing Veronica Heaton 04/07/2025 8:45 PM * Assessment & Plan Note - Bhavin Parks MD - 04/07/2025 4:06 PM EDT Associated Problem(s): Hand abscess -Patient evaluated by surgery and orthopedics - patient scheduled for incision and drainage by surgery today - ID was consulted-on vancomycin and Zosyn Patient received 1 dose of clindamycin - Vascular access was an issue, she will get central line placed during surgical procedure today -MRI upper extremity done-awaiting results * Assessment & Plan Note - Bhavin Parks MD - 04/07/2025 4:06 PM EDT Associated Problem(s): Abscess of arm, right -Patient evaluated by surgery and orthopedics - patient scheduled for incision and drainage by surgery today - ID was consulted-on vancomycin and Zosyn Patient received 1 dose of clindamycin - Vascular access was an issue, she will get central line placed during surgical procedure today -MRI upper extremity done-awaiting results * Assessment & Plan Note - Bhavin Parks MD - 04/07/2025 4:06 PM EDT Associated Problem(s): Abscess of left arm -Patient evaluated by surgery and orthopedics - patient scheduled for incision and drainage by surgery today - ID was consulted-on vancomycin and Zosyn Patient received 1 dose of clindamycin - Vascular access was an issue, she will get central line placed during surgical procedure today -MRI upper extremity done-awaiting results * Assessment & Plan Note - Bhavin Parks MD - 04/07/2025 4:06 PM EDT Associated Problem(s): MRSA bacteremia -Patient evaluated by surgery and orthopedics - patient scheduled for incision and drainage by surgery today - ID was consulted-on vancomycin and Zosyn Patient received 1 dose of clindamycin - Vascular access was an issue, she will get central line placed during surgical procedure today -MRI upper extremity done-awaiting results * Assessment & Plan Note - Bhavin Parks MD - 04/07/2025 4:06 PM EDT Associated Problem(s): Infection of wound due to methicillin resistant Staphylococcus aureus (MRSA) -Patient evaluated by surgery and orthopedics - patient scheduled for incision and drainage by surgery today - ID was consulted-on vancomycin and Zosyn Patient received 1 dose of clindamycin - Vascular access was an issue, she will get central line placed during surgical procedure today -MRI upper extremity done-awaiting results * Assessment & Plan Note - Bhavin Parks MD - 04/07/2025 4:06 PM EDT Associated Problem(s): Lung nodule -1 cm nodule on outpatient CT scan- * Assessment & Plan Note - Bhavin Parks MD - 04/07/2025 4:06 PM EDT Associated Problem(s): Methadone maintenance therapy patient -I confirm the dose with outpatient methadone clinic-on 130 mg methadone daily * Assessment & Plan Note - Bhavin Parks MD - 04/07/2025 4:06 PM EDT Associated Problem(s): IV drug user -I confirm the dose with outpatient methadone clinic-on 130 mg methadone daily * Assessment & Plan Note - Bhavin Parks MD - 04/07/2025 4:06 PM EDT Associated Problem(s): Difficult intravenous access -I confirm the dose with outpatient methadone clinic-on 130 mg methadone daily * Op Note - Db Lynn MD - 04/07/2025 3:19 PM EDT Images from the original note were not included. [address] [id number] OPERATIVE REPORT Patient Name: Molly Beasley Date of : 1990 Date of Procedure: 04/07/2025 Surgeons and Role: * Db Lynn MD - Primary * Clarice Hernandez DO - Resident - Assisting Pre-op Diagnosis: Abscess of arm, right [L02.413] Post-Op Diagnosis Codes: * Abscess of arm, right [L02.413] Details of Procedure Procedure(s): INCISION & DRAINAGE AND DEBRIDEMENT UPPER EXTREMITY Additional Procedures Surgeon: Db Lynn MD Online Marketing Specialist: MD Clarice Ward DO Anesthesia: general Indications: BUE abscesses Description of Procedure: The patient was taken to the operating room placed supine position the operating room table. General anesthesia was induced and the patient was intubated with endotracheal tube. The patient was prepped and draped in usual sterile fashion circumferentially around her right upper extremity onto her chest and a more focal prep over her left antecubital fossa. Attention was first turned to the patient's right upper extremity. The previously made incision anddrainage site was opened with an immediate return of copious purulent fluid this incision was then extended up in a curvilinear manner onto the anterior surface of the biceps. Hemostasis was achieved. An enormous amount of purulent fluid as well as necrotic fascia was encountered and evacuated. Gelatinous fascia was excised sharply using stephen. The abscess cavities extended between the muscle bellies of the biceps towards the tricep and into the axilla. The wounds were packed using lap pads. Gelatinous fascia was collected as tissue culture. The purulent fluid was sent as abscess fluid culture. Attention was then turned to the left upper extremity. An approximately 3 cm incision was made overa ballotable area over the left AC immediate return of purulent fluid was encountered. The cavity was probed loculations were broken and the wound was irrigated. Attention was then returned to the right upper extremity. A Pulsavac was used with a total of 6 L of saline to the point where the effluent ran clear. The wound bellies had healthy bleeding tissue inthe bases. Turbid fluid was able to be expressed from the deepest parts of the axilla with externalcompression this was suctioned clear. Satisfied with the incisions and drainage to the immediate safe extent necessary the decision was made to pack the wounds. Moistened Kerlix was placed into the right upper extremity a total of 2 Kerlix wraps were packed into the wound tied together. A small amount of packing was also placed in the left AC. The right upper extremity was wrapped with dry Kerlix ABD pads and a Omid wrap. A dressing was placed in the left AC as well. At the conclusion of this case all instrument sponge and needle counts were correct. The patient tolerated the procedure well and was extubated. The patient was brought to PACU in stable condition. Complications: none Operative Findings: Extensive abscesses of the right upper extremity surrounding and in between thebiceps and triceps muscles as well as tracking into the axilla. Smaller abscess in the left AC fossa. Drains: None Estimated Blood Loss: 200 mL Blood Transfusion: No Implants: * No implants in log * Specimens: ID Type Source Tests Collected by Time Destination 1 : Right upper extremity abscess Aspirate, Abscess Arm, Upper right ANAEROBIC CULTURE, AEROBIC CULTURE (GRAM STAIN INCLUDED), FUNGAL CULTURE (NON-BLOOD), MYCOBACTERIA CULTURE (INCLUDES ACID FAST SMEAR) Db Lynn MD 04/07/2025 1502 2 : right upper extremity tissue culture Tissue Arm, Upper right ANAEROBIC CULTURE, AEROBIC CULTURE(GRAM STAIN INCLUDED), TISSUE CULTURE (AEROBIC, ANAEROBIC + GRAM STAIN), FUNGAL CULTURE (NON-BLOOD), MYCOBACTERIA CULTURE (INCLUDES ACID FAST SMEAR) Db Lynn MD 04/07/2025 1547 Disposition: PACU Condition: stable Db Lynn MD Date: 04/07/2025 * Plan of Care - David Jules MD - 04/07/2025 9:07 AM EDT Brief update note: Pt's imaging was reviewed with EGS team this morning. CT of RUE showing fluid collections tracking up from the AC fossa up through the bicep muscle into the kinga-clavicular space. No subcutaneous gasappreciated. Upon assessment of RUE pt still having significant swelling/tenderness/drainage. She is also noting LUE pain. CT LUE IMPRESSION: 1. Extensive fluid-like density throughout the subcutaneous soft tissues of the right chest wall, right abdominal wall, right upper extremity and right forearm and hand. This is nonspecific but could reflect edema, cellulitis or a combination of these. This appears to have progressed compared with outside imaging of the right upper extremity dating back to April 02, 2025. 2. There is fluid extending within and along the superficial and deep surface muscles and muscle groups in the right chest/chest wall and right upper extremity compatible with myositis and likely evolving phlegmon or abscesses which has progressed compared with prior outside imaging dating back to April 02, 2025. See details above. No definite involvement of the muscles in the forearm and hand 3. Right lower lobe consolidation and right pleural effusion. Plan: - Stat CT LUE - Plan for OR incision & drainage - Follow up cbc - Recommend ID consult for abx - Recommend ECHO Discussed case with attending Dr. Donaldson who agrees with plan. Cosigned by Lucho Donaldson MD at 04/07/2025 11:41 AM EDT Associated attestation - Lucho Donaldson MD - 04/07/2025 11:41 AM EDT Teaching/Supervising Physician Attestation I have personally interviewed and examined the patient on 04/07/2025 at ~0800 and reviewed the housestaff/mid-level provider's note. I personally reviewed the recorded database, and all lab results and imaging performed. I agree with the history, exam, assessment and plan as detailed in the note with the following additions/exceptions/observations: Patient seen and examined. Purulence noted from prior I&D site that was closed at the outside hospital. Significant erythema and induration and pain throughout the right upper extremity worsened above the level of the elbow. CT scan reviewed which appears to show fluid collection tracking all the way to the right chest. Of note, she is also having significant pain of the left upper extremity though the only abnormality I can note is the potential for a vein thrombosis around the antecubitalfossa which would raise the suspicion for infective thrombophlebitis. Based on the degree of swelling, erythema, induration and purulence coming out of the prior I&Brown well as the imaging studies, we will plan for operative debridement of her right upper extremitytoday. While we await for an operating room to be available, we will plan for a CT scan of the leftupper extremity to ensure no other I&D is required of that extremity. I would follow-up the results of her hepatitis and HIV panels from the outside hospital. I would have a low threshold for a echocardiogram in view of her IV drug history and MRSA bacteremia. Would certainly recommend ID consultation. Lucho Donaldson MD Attending Surgeon Acute Care Surgery (Trauma, Critical Care and Emergency Surgery) 04/07/2025 11:38 AM * Plan of Care - Bhavin Parks MD - 04/07/2025 8:52 AM EDT I contacted [facility] [[phone]] and confirmed patient's methadone dose to be 130 mg daily [patient took her last dose as an outpatient on 04/02/2025] [facility] * Plan of Care - Veronica Gipson RN - 04/07/2025 6:26 AM EDT Problem: Adult Inpatient Plan of Care Goal: Plan of Care Review Outcome: Progressing Goal: Optimal Comfort and Wellbeing Outcome: Progressing Molly A/O x 4. Transferred from OSH as a direct admission. I & D right volar forearm abscess performed at bedside. CT NAVEEN UE ordered. Molly was unable to tolerate an adequate position to enable a complete view of NAVEEN LE. Order modified to scan only RUE. CT scan completed. Unable to draw blood draw d/t NAVEEN UE pain/ poor access. Dr. Valdez, pharmacy and ortho surgery notified. IV vancomycin ordered based OSH levels, confirmed with pharmacy. IV site from OSH verified by IV therapy. T max 100.6. Tylenol administered with good effect. Molly c/o excruciating pain. Administered IV Dilaudid x 2 with moderate effect. Personal belongings placed in lock box, e-cigarette and a second smoking device. NPO; ice chips; sips of clears; meds order still active. Plan for potential procedure. Planof care ongoing. Fall, skin, and isolation precautions initiated Addendum: Molly was receiving a daily order of Methadone at OSH. No current order. New order willneed to be placed. Veronica Gipson 04/07/2025 6:26 AM * Assessment & Plan Note - Dandre Valdez MD - 04/07/2025 5:34 AM EDTAssociated Problem(s): Hand abscess - Patient with history of IV drug use presents with initially redness and swelling in the right arm, found to have abscess status post I&D. Wound culture and blood culture positive for MRSA. Started on vancomycin, however continued to have progressive redness and swelling and new redness and swelling of the left arm. - Got a repeat CT scan at outside hospital showing worsening of myositis/abscesses concerning for progression of infection, transferred here for higher level of care. - Orthopedic team consulted for hand surgery as well as general surgery consulted as there is infection above the elbow as well. - Will continue IV vancomycin - Vitals every 4 hours - Will continue IV fluids - Will keep patient n.p.o. for possible surgical intervention - Pain management with Dilaudid, Toradol as needed - Will place ID consult - I have handed over the CD from outside hospital with images to radiology department to be uploaded in the chart. Surgery team aware. * Assessment & Plan Note - Dandre Valdez MD - 04/07/2025 5:34 AM EDTAssociated Problem(s): Abscess of arm, right - Patient with history of IV drug use presents with initially redness and swelling in the right arm, found to have abscess status post I&D. Wound culture and blood culture positive for MRSA. Started on vancomycin, however continued to have progressive redness and swelling and new redness and swelling of the left arm. - Got a repeat CT scan at outside hospital showing worsening of myositis/abscesses concerning for progression of infection, transferred here for higher level of care. - Orthopedic team consulted for hand surgery as well as general surgery consulted as there is infection above the elbow as well. - Will continue IV vancomycin - Vitals every 4 hours - Will continue IV fluids - Will keep patient n.p.o. for possible surgical intervention - Pain management with Dilaudid, Toradol as needed - Will place ID consult - I have handed over the CD from outside hospital with images to radiology department to be uploaded in the chart. Surgery team aware. * Assessment & Plan Note - Dandre Valdez MD - 04/07/2025 5:34 AM EDTAssociated Problem(s): Abscess of left arm - Patient with history of IV drug use presents with initially redness and swelling in the right arm, found to have abscess status post I&D. Wound culture and blood culture positive for MRSA. Started on vancomycin, however continued to have progressive redness and swelling and new redness and swelling of the left arm. - Got a repeat CT scan at outside hospital showing worsening of myositis/abscesses concerning for progression of infection, transferred here for higher level of care. - Orthopedic team consulted for hand surgery as well as general surgery consulted as there is infection above the elbow as well. - Will continue IV vancomycin - Vitals every 4 hours - Will continue IV fluids - Will keep patient n.p.o. for possible surgical intervention - Pain management with Dilaudid, Toradol as needed - Will place ID consult - I have handed over the CD from outside hospital with images to radiology department to be uploaded in the chart. Surgery team aware. * Assessment & Plan Note - Dandre Valdez MD - 04/07/2025 5:34 AM EDTAssociated Problem(s): MRSA bacteremia - Patient with history of IV drug use presents with initially redness and swelling in the right arm, found to have abscess status post I&D. Wound culture and blood culture positive for MRSA. Started on vancomycin, however continued to have progressive redness and swelling and new redness and swelling of the left arm. - Got a repeat CT scan at outside hospital showing worsening of myositis/abscesses concerning for progression of infection, transferred here for higher level of care. - Orthopedic team consulted for hand surgery as well as general surgery consulted as there is infection above the elbow as well. - Will continue IV vancomycin - Vitals every 4 hours - Will continue IV fluids - Will keep patient n.p.o. for possible surgical intervention - Pain management with Dilaudid, Toradol as needed - Will place ID consult - I have handed over the CD from outside hospital with images to radiology department to be uploaded in the chart. Surgery team aware. * Assessment & Plan Note - Dandre Valdez MD - 04/07/2025 5:34 AM EDTAssociated Problem(s): Infection of wound due to methicillin resistant Staphylococcus aureus (MRSA) - Patient with history of IV drug use presents with initially redness and swelling in the right arm, found to have abscess status post I&D. Wound culture and blood culture positive for MRSA. Started on vancomycin, however continued to have progressive redness and swelling and new redness and swelling of the left arm. - Got a repeat CT scan at outside hospital showing worsening of myositis/abscesses concerning for progression of infection, transferred here for higher level of care. - Orthopedic team consulted for hand surgery as well as general surgery consulted as there is infection above the elbow as well. - Will continue IV vancomycin - Vitals every 4 hours - Will continue IV fluids - Will keep patient n.p.o. for possible surgical intervention - Pain management with Dilaudid, Toradol as needed - Will place ID consult - I have handed over the CD from outside hospital with images to radiology department to be uploaded in the chart. Surgery team aware. * Assessment & Plan Note - Dandre Valdez MD - 04/07/2025 1:38 AM EDTAssociated Problem(s): Lung nodule -1 cm incidental nodule seen in outpatient CT scan concerning for septic emboli given the history. * Assessment & Plan Note - Dandre Valdez MD - 04/07/2025 1:38 AM EDTAssociated Problem(s): Methadone maintenance therapy patient -Patient is on 130 mg of methadone, follows up with [facility] Was confirmed by provider at outside hospital. - Will likely need reconfirmation in this hospitalization. Has received a dose this morning. * Assessment & Plan Note - Dandre Valdez MD - 04/07/2025 1:38 AM EDTAssociated Problem(s): IV drug user -Poor IV access team, difficulty getting blood draws due to her swelling and history of IV drug use. - Does have 1 IV access for antibiotics. - Will likely need a PICC line/midline for frequent labs * Assessment & Plan Note - Dandre Valdez MD - 04/07/2025 1:38 AM EDTAssociated Problem(s): Difficult intravenous access -Poor IV access team, difficulty getting blood draws due to her swelling and history of IV drug use. - Does have 1 IV access for antibiotics. - Will likely need a PICC line/midline for frequent labs * Assessment & Plan Note - Dandre Valdez MD - 04/07/2025 1:38 AM EDTAssociated Problem(s): ADHD Patient is on Adderall at home, can continue outpatient * Plan of Care - Ifrah Grady PA-C - 04/06/2025 6:21 PM EDT PATIENT ACCEPTANCE NOTE SITUATION I was called by provider Dr. Ronny Mcneil from [facility] in regards to Molly Beasley to be transferred to the [facility]. Their phone number is [phone] in case more information is required. They are requesting the transfer to [facility] for procedural intervention and programmer analyst consultant service which is not available in their facility. BACKGROUND Past Medical History: Molly Beasley has no past medical history on file. Past Surgical History: Molly Beasley has no past surgical history on file. Allergies: Molly Beasley has no allergies on file. Patient was seen in the Outside hospital/ clinic for hand/arm swelling and pain ASSESSMENT We have accepted the patient transfer since the patient meets criteria for higher level of care. Patient currently have been provided the following treatment : Patient is a 34-year-old female with history of IVDU who presented to [facility] due to arm swelling and pain at site of IV drug injections. Patient had initially presented there on 04/02 for which an abscess was drained and she was placed on antibiotic therapy. CT of bilateral upper extremities are concerning for right bicep muscle necrosis and left forearm and hand abscesses with rim- enhancing fluid collections. Blood and wound cultures positive for MRSA. Patient is currently on IV vancomycin. Due to concern of necrosis/necrotizing fascitis, patient is a high risk of losing a limb/limbs hence the request for transfer to for hand surgery consultation and possible debridement to avoid limb loss. A TTE performed at [facility] was not concerning. A YANA has been ordered there but not yet performed. May need a YANA once arrives to . Patient is deemed hemodynamically stable for transfer. HR 103 BP 99.5 RR 17 133/88 O2 92-94% on room air. RECOMMENDATION Recommend calling the Consults: Hand surgery once the patient arrives. Patient requirements : Telemetry : No Isolation: MRSA Precautions: none Private Room: Yes Special Needs: None Ifrah Grady PA-C Date: 04/06/2025 Time: 6:21 PM documented in this encounter Plan of Treatment Pending Results Name Type Priority Associated Diagnoses Date /Time Fungal Culture (non-blood) Microbiology Routine 04/07/2025 3:47 PM EDT Mycobacteria Culture (includes Acid Fast Smear) Microbiology Routine 04/07/2025 3:47 PM EDT Hepatitis C Viral Load, Quantitative Lab Routine 04/08/2025 8:49 AM EDT Hepatitis C Viral Load, Quantitative, w/ Reflex to Genotype Lab Routine 04/11/2025 6:30 AM EDT Scheduled Orders Name Type Priority Associated Diagnoses Order Schedule US Guided Anesthesia Procedure Imaging Routine One time imaging One time imaging for 1 Occurrences starting 04/07/2025 until 04/07/2025 Hepatitis C Viral Load, Quantitative Lab Routine Once for 1 Occurrences starting 04/08/2025 until 04/08/2025 Hepatitis C Viral Load, Quantitative, w/ Reflex to Genotype Lab Routine AM Draw fo r 1 Occurrences starting 04/11/2025 until 04/11/2025 Nasal Cannula (Supplemental Oxygen) Starting Rate: 2 LPM; Maximum Rate: 6 LPM; Maintain O2 Sat >/= (%): 90 Respiratory Care Routine Continuous unti l discontinued starting 04/11/2025 US Guided Anesthesia Procedure Imaging Routine One time imaging One time imaging for 1 Occurrences starting 04/11/2025 until 04/11/2025 ECG 12 lead ECG Routine Daily until discontinued starting 04/11/2025, 1 completed ECG 12 lead (STAT) ECG STAT Once f or 1 Occurrences starting 04/11/2025 until 04/11/2025 ECG 12 lead ECG Routine Daily until discontinued starting 04/13/2025 Basic Metabolic Panel Lab Routine *Ea rly AM Draw (5:30AM) for 1 Occurrences starting 04/15/2025 until 04/15/2025 COMPLETE BLOOD COUNT, WITHOUT DIFFERENTIAL Lab Routine *Early AM D raw (5:30AM) for 1 Occurrences starting 04/15/2025 until 04/15/2025 Phosphorus Lab Routine *Early AM Draw (5:30AM) for 1 Occurrences starting 04/15/2025 until 04/15/2025 Magnesium Lab Routine *Early AM Draw (5:30AM) for 1 Occurrences starting 04/15/2025 until 04/15/2025 documented as of this encounter Procedures Procedure Name Priority Date/Time Associated Diagnosis Comments POCT GLUCOSE, FINGERSTICK (CHARGE) Routine 04/14/2025 4:08 PM EDT POCT GLUCOSE, FINGERSTICK (CHARGE) Routine 04/14/2025 11:40 AM EDT ECG 12-LEAD Routine 04/14/2025 10:13 AM EDT POCT GLUCOSE, FINGERSTICK (CHARGE) Routine 04/14/2025 8:28 AM EDT POCT GLUCOSE, FINGERSTICK (CHARGE) Routine 04/14/2025 4:07 AM EDT COMPLETE BLOOD COUNT, WITHOUT DIFFERENTIAL Routine 04/14/2025 4:05 AM EDT PHOSPHORUS Routine 04/14/2025 4:05 AM EDT MAGNESIUM Routine 04/14/2025 4:05 AM EDT BASIC METABOLIC PANEL Routine 04/14/2025 4:05 AM EDT POCT GLUCOSE, FINGERSTICK (CHARGE) Routine 04/13/2025 11:58 PM EDT POCT GLUCOSE, FINGERSTICK (CHARGE) Routine 04/13/2025 8:08 PM EDT POCT GLUCOSE, FINGERSTICK (CHARGE) Routine 04/13/2025 5:18 PM EDT ECG 12-LEAD Routine 04/13/2025 2:41 PM EDT POCT GLUCOSE, FINGERSTICK (CHARGE) Routine 04/13/2025 11:46 AM EDT PHOSPHORUS Routine 04/13/2025 9:16 AM EDT MAGNESIUM Routine 04/13/2025 9:16 AM EDT BASIC METABOLIC PANEL Routine 04/13/2025 9:16 AM EDT POCT GLUCOSE, FINGERSTICK (CHARGE) Routine 04/13/2025 8:48 AM EDT VANCOMYCIN LEVEL-RANDOM Timed 04/13/20 7:00 AM EDT POCT GLUCOSE, FINGERSTICK (CHARGE) Routine 04/13/2025 4:15 AM EDT COMPLETE BLOOD COUNT, WITHOUT DIFFERENTIAL Routine 04/13/2025 12:32 AM EDT PHOSPHORUS Routine 04/13/2025 12:32 AM EDT MAGNESIUM Routine 04/13/2025 12:32 AM EDT BASIC METABOLIC PANEL Routine 04/13/2025 12:32 AM EDT POCT GLUCOSE, FINGERSTICK (CHARGE) Routine 04/13/2025 12:18 AM EDT POCT GLUCOSE, FINGERSTICK (CHARGE) Routine 04/12/2025 8:10 PM EDT POCT GLUCOSE, FINGERSTICK (CHARGE) Routine 04/12/2025 3:55 PM EDT POCT GLUCOSE, FINGERSTICK (CHARGE) Routine 04/12/2025 11:44 AM EDT POCT GLUCOSE, FINGERSTICK (CHARGE) Routine 04/12/2025 8:50 AM EDT EXTUBATION Routine 04/12/2025 4:02 AM EDT POCT GLUCOSE, FINGERSTICK (CHARGE) Routine 04/12/2025 3:51 AM EDT COMPLETE BLOOD COUNT, WITHOUT DIFFERENTIAL Routine 04/12/2025 12:08 AM EDT PHOSPHORUS Routine 04/12/2025 12:08 AM EDT MAGNESIUM Routine 04/12/2025 12:08 AM EDT BASIC METABOLIC PANEL Routine 04/12/2025 12:08 AM EDT POCT GLUCOSE, FINGERSTICK (CHARGE) Routine 04/11/2025 11:54 PM EDT POCT GLUCOSE, FINGERSTICK (CHARGE) Routine 04/11/2025 8:45 PM EDT POCT GLUCOSE, FINGERSTICK (CHARGE) Routine 04/11/2025 4:01 PM EDT ECG 12-LEAD Routine 04/11/2025 3:24 PM EDT XR ABDOMEN 1 VIEW Routine 04/11/2025 12: 15 PM EDT POCT GLUCOSE, FINGERSTICK (CHARGE) Routine 04/11/2025 12:08 PM EDT POCT GLUCOSE, FINGERSTICK (CHARGE) Routine 04/11/2025 8:01 AM EDT COMPLETE BLOOD COUNT, WITHOUT DIFFERENTIAL Routine 04/11/2025 6:30 AM EDT POCT GLUCOSE, FINGERSTICK (CHARGE) Routine 04/11/2025 4:00 AM EDT THROMBOELASTOGRAPH (TEG) Routine 2:18 AM EDT TRANSFUSE RED BLOOD CELLS Routine 2024 2:03 AM EDT COMPLETE BLOOD COUNT, WITHOUT DIFFERENTIAL Routine 04/11/2025 12:57 AM EDT PHOSPHORUS Routine 04/11/2025 12:57 AM EDT MAGNESIUM Routine 04/11/2025 12:57 AM EDT BASIC METABOLIC PANEL Routine 04/11/2025 12:57 AM EDT POCT GLUCOSE, FINGERSTICK (CHARGE) Routine 04/11/2025 12:31 AM EDT DEBRIDEMENT WOUND 04/10/2025 9:4 0 PM EDT Abscess of arm, right POCT GLUCOSE, FINGERSTICK (CHARGE) Routine 04/10/2025 8:04 PM EDT POCT GLUCOSE, FINGERSTICK (CHARGE) Routine 04/10/2025 3:47 PM EDT COMPLETE BLOOD COUNT, WITHOUT DIFFERENTIAL Routine 04/10/2025 3:13 PM EDT POCT GLUCOSE, FINGERSTICK (CHARGE) Routine 04/10/2025 12:02 PM EDT COMPLETE BLOOD COUNT, WITHOUT DIFFERENTIAL Routine 04/10/2025 9:14 AM EDT ECHOCARDIOGRAM (TTE) COMPREHENSIVE (CONTRAST PRN) STAT 04/10/2025 8:56 AM EDT POCT GLUCOSE, FINGERSTICK (CHARGE) Routine 04/10/2025 8:01 AM EDT TRANSFUSE RED BLOOD CELLS Routine 2024 4:57 AM EDT POCT GLUCOSE, FINGERSTICK (CHARGE) Routine 04/10/2025 4:10 AM EDT PREPARE RBC'S Routine 04/10/2025 3:50 AM EDT POCT GLUCOSE, FINGERSTICK (CHARGE) Routine 04/10/2025 12:25 AM EDT POCT GLUCOSE, FINGERSTICK (CHARGE) Routine 04/10/2025 12:22 AM EDT HEMOGLOBIN A1C WITH ESTIMATED AVERAGE GLUCOSE Routine 04/10/2025 12:06 AM EDT COMPLETE BLOOD COUNT, WITHOUT DIFFERENTIAL Routine 04/10/2025 12:06 AM EDT PHOSPHORUS Routine 04/10/2025 12:06 AM EDT MAGNESIUM Routine 04/10/2025 12:06 AM EDT CALCIUM, IONIZED Routine 04/10/2025 12:0 6 AM EDT BASIC METABOLIC PANEL Routine 04/10/2025 12:06 AM EDT CREATINE KINASE (CK) Routine 04/09/2025 9:29 PM EDT POCT GLUCOSE, FINGERSTICK (CHARGE) Routine 04/09/2025 8:05 PM EDT TRANSFUSE RED BLOOD CELLS Routine 2024 6:34 PM EDT PREPARE RBC'S Routine 04/09/2025 6:11 PM EDT THROMBOELASTOGRAPH (TEG) Routine 5:20 PM EDT COMPLETE BLOOD COUNT, WITHOUT DIFFERENTIAL Routine 04/09/2025 5:20 PM EDT POCT GLUCOSE, FINGERSTICK (CHARGE) Routine 04/09/2025 5:20 PM EDT PHOSPHORUS Routine 04/09/2025 5:20 PM EDT MAGNESIUM Routine 04/09/2025 5:20 PM EDT LACTIC ACID, PLASMA Routine 04/09/2025 5 :20 PM EDT CREATINE KINASE (CK) Routine 04/09/2025 5:20 PM EDT CALCIUM, IONIZED Routine 04/09/2025 5:20 PM EDT BASIC METABOLIC PANEL Routine 04/09/2025 5:20 PM EDT TRANSFUSE FRESH FROZEN PLASMA Routine 04/09/2025 4:36 PM EDT TRANSFUSE RED BLOOD CELLS Routine 2024 4:14 PM EDT PREPARE FRESH FROZEN PLASMA STAT 04/09/2025 4:07 PM EDT PREPARE RBC'S STAT 04/09/2025 4:07 PM EDT TRANSFUSE RED BLOOD CELLS Routine 2024 3:35 PM EDT DEBRIDEMENT 04/09/2025 2:37 PM EDT Abscess of arm, right POCT GLUCOSE, FINGERSTICK (CHARGE) Routine 04/09/2025 12:42 PM EDT COMPLETE BLOOD COUNT, WITHOUT DIFFERENTIAL Routine 04/09/2025 12:21 PM EDT PHOSPHORUS Routine 04/09/2025 12:21 PM EDT MAGNESIUM Routine 04/09/2025 12:21 PM EDT BASIC METABOLIC PANEL Routine 04/09/2025 12:21 PM EDT POCT GLUCOSE, FINGERSTICK (CHARGE) Routine 04/09/2025 11:45 AM EDT BLOOD CULTURE (HOSP LAB) Routine 025 11:10 AM EDT CREATINE KINASE (CK) Routine 04/09/2025 10:25 AM EDT TYPE AND SCREEN Routine 04/09/2025 10:20 AM EDT PREPARE RBC'S Routine 04/09/2025 10:19 AM EDT POCT GLUCOSE, FINGERSTICK (CHARGE) Routine 04/09/2025 7:59 AM EDT POCT GLUCOSE, FINGERSTICK (CHARGE) Routine 04/09/2025 3:45 AM EDT COMPLETE BLOOD COUNT, WITHOUT DIFFERENTIAL Routine 04/09/2025 3:24 AM EDT PHOSPHORUS Routine 04/09/2025 3:24 AM EDT MAGNESIUM Routine 04/09/2025 3:24 AM EDT CREATINE KINASE (CK) Routine 04/09/2025 3:24 AM EDT BASIC METABOLIC PANEL Routine 04/09/2025 3:24 AM EDT BLOOD CULTURE (HOSP LAB) Routine 1:31 AM EDT POCT GLUCOSE, FINGERSTICK (CHARGE) Routine 04/09/2025 12:[address] UPPER EXTREMITY WITH CONTRAST-BILATERAL STAT 04/08/2025 11:[address] THORAX W/CONTRAST STAT 04/08/2025 11:[address] SOFT TISSUE NECK W/CONTRAST STAT 04/08/2025 11:[address] ABDOMEN+PELVIS W/CONTRAST STAT 04/08/2025 11:50 PM EDT POCT GLUCOSE, FINGERSTICK (CHARGE) Routine 04/08/2025 10:18 PM EDT XR ABDOMEN 1 VIEW STAT 04/08/2025 9:3 5 PM EDT XR CHEST 1 VIEW-PORTABLE STAT 025 9:34 PM EDT COMPLETE BLOOD COUNT, WITHOUT DIFFERENTIAL Routine 04/08/2025 9:15 PM EDT TRIGLYCERIDES Routine 04/08/2025 9:15 PM EDT PHOSPHORUS Routine 04/08/2025 9:15 PM EDT MAGNESIUM Routine 04/08/2025 9:15 PM EDT LACTIC ACID, PLASMA Routine 04/08/2025 9 :15 PM EDT CREATINE KINASE (CK) Routine 04/08/2025 9:15 PM EDT CALCIUM, IONIZED Routine 04/08/2025 9:15 PM EDT BASIC METABOLIC PANEL Routine 04/08/2025 9:15 PM EDT INCISION & DRAINAGE 04/08/2025 6 :43 PM EDT Abscess of arm, right ERYTHROCYTE SEDIMENTATION RATE (ESR) Routine 04/08/2025 2:05 PM EDT C-REACTIVE PROTEIN Routine 04/08/2025 2: 05 PM EDT VANCOMYCIN LEVEL-RANDOM Timed 04/08/20 25 2:05 PM EDT HIV 1/2 AG/AB CMIA REFLEX TO CONFIRMATION Routine 04/08/2025 8:49 AM EDT HEPATITIS PANEL, ACUTE Routine 8:49 AM EDT COMPLETE BLOOD COUNT, WITHOUT DIFFERENTIAL Routine 04/08/2025 5:30 AM EDT PHOSPHORUS Routine 04/08/2025 5:30 AM EDT MAGNESIUM Routine 04/08/2025 5:30 AM EDT BASIC METABOLIC PANEL Routine 04/08/2025 5:30 AM EDT XR CHEST 1 VIEW-PORTABLE STAT 025 7:47 PM EDT MYCOBACTERIA CULTURE (INCLUDES ACID FAST SMEAR) Routine 04/07/2025 3:47 PM EDT FUNGAL CULTURE (NON-BLOOD) Routine 04/07 3:47 PM EDT TISSUE CULTURE (AEROBIC, ANAEROBIC + GRAM STAIN) Routine 04/07/2025 3:47 PM EDT AEROBIC CULTURE (GRAM STAIN INCLUDED) Routine 04/07/2025 3:02 PM EDT ANAEROBIC CULTURE Routine 04/07/2025 3:0 2 PM EDT POCT , URINE (CHARGE) Routine 04/07/2025 2:14 PM EDT INCISION & DRAINAGE 04/07/2025 2 :04 PM EDT Abscess of arm, right CT UPPER EXTREMITY WITH CONTRAST-LEFT STAT 04/07/2025 1:11 PM EDT MRI ARM W W/O CONTRAST-LOWER RIGHT Routine 04/07/2025 12:46 PM EDT MRI ARM W W/O CONTRAST-UPPER RIGHT Routine 04/07/2025 12:44 PM EDT ECG 12-LEAD Routine 04/07/2025 10:[address] UPPER EXTREMITY WITH CONTRAST-RIGHT STAT 04/07/2025 2:32 AM EDT AEROBIC CULTURE (GRAM STAIN INCLUDED) Routine 04/07/2025 1:17 AM EDT documented in this encounter Results * (ABNORMAL) POCT Glucose, Fingerstick (04/14/2025 4:08 PM EDT) POC Glucose 117(H) 65 - 99 mg/dL 04/14/2025 4:09 PM EDT Blood specimen / Unknown 04/14/2025 4:08 PM EDT 04/14/2025 4:09 PM EDT us Kenton Medina MD POINT OF CARE TEST ORDERABLES Fi nal Result [facility] See Below * (ABNORMAL) POCT Glucose, Fingerstick (04/14/2025 11:40 AM EDT) POC Glucose 147(H) 65 - 99 mg/dL 04/14/2025 11:44 AM EDT Blood specimen / Unknown 04/14/2025 11:40 AM EDT 04/14/2025 11:44 AM EDT us Kenton Medina MD POINT OF CARE TEST ORDERABLES Fi nal Result Performing Organization Address [facility] Phone Number [facility] See Below * ECG 12 lead (04/14/2025 10:13 AM EDT) Ventricular rate 64 BPM EKG [facility] Atrial rate 64 BPM EKG [facility] P-R interval 136 ms EKG [facility] QRS duration 84 ms EKG [facility] Q-T interval 428 ms EKG [facility] QTC calculation (Bazett) 442 ms EKG [facility] P axis 52 degrees EKG [facility] R axis 72 degrees EKG [facility] T axis 68 degrees EKG [facility] 04/14/2025 10:1 3 AM EDT Narrative EKG [facility] - 04/14/2025 1:09 PM EDT Normal sinus rhythm Normal ECG When compared with ECG of 13-Apr-2025 14:41, No significant change was found Confirmed by MD Rivero Komsu ([id number]) on 04/14/2025 1:09:39 PM Procedure Note Lorrie Rivero MD - 04/14/2025 Normal sinus rhythm Normal ECG When compared with ECG of 13-Apr-2025 14:41, No significant change was found Confirmed by MD Josefa, Koaru ([id number]) on 04/14/2025 1:09:39 PM Arabella Aavlos PA-C ECG ORDERABLES Final Result Performing Organization Address [facility] Phone Number EKG [facility] * (ABNORMAL) POCT Glucose, Fingerstick (04/14/2025 8:28 AM EDT) POC Glucose 139(H) 65 - 99 mg/dL 04/14/2025 8:32 AM EDT Blood specimen / Unknown 04/14/2025 8:28 AM EDT 04/14/2025 8:32 AM EDT Kenton Medina MD POINT OF CARE TEST ORDERABLES Fi nal Result Performing Organization Address [facility] Phone Number [facility] See Below * (ABNORMAL) POCT Glucose, Fingerstick (04/14/2025 4:07 AM EDT) POC Glucose 123(H) 65 - 99 mg/dL 04/14/2025 4:08 AM EDT Blood specimen / Unknown 04/14/2025 4:07 AM EDT 04/14/2025 4:08 AM EDT Kenton Medina MD POINT OF CARE TEST ORDERABLES Fi nal Result Performing Organization Address [facility] Phone Number [facility] See Below * (ABNORMAL) Phosphorus (04/14/2025 4:05 AM EDT) Phosphorus 2.5(L) 2.7 - 4.5 mg/dL 04/14/2025 5:06 AM EDT [facility] Blood Blood specimen / Unknown 04/14/2025 4:05 AM EDT 04/14/2025 4:35 AM EDT Lucho Donaldson MD LAB BLOOD ORDERABLES Final Re sult Performing Organization Address [facility]/ZIP Co de Phone Number [address] [address], [address] [address] * Magnesium (04/14/2025 4:05 AM EDT) [facility] Magnesium 1.9 1.6 - 2.7 mg/dL 04/14/2025 5:06 AM T [facility] Blood Blood specimen / Unknown 04/14/2025 4:05 AM EDT 04/14/2025 4:35 AM EDT us Lucho Donaldson MD LAB BLOOD ORDERABLES [place] [address], [place] [address] * (ABNORMAL) Complete Blood Count, WITHOUT Differential (routine) (04/14/2025 4:05 AM EDT) [facility] White Blood Cell Count 13.7(H) 4.0 - 11.0 Thou/uL 04/14/2025 4:53 AM [facility] Platelet Count 616(H) 150 - 450 Thou/uL 04/14/2025 4:53 AM [facility] Hemoglobin 7.3(L) 11.7 - 15.7 g/dL 04/14/2025 4:53 AM [facility] Hematocrit 23.3(L) 35.0 - 47.0 % 04/14/2025 4:53 AM [facility] Red Blood Cell Count 2.68(L) 4.00 - 5.40 Mil/uL 04/14/2025 4:53 AM [facility] MCV 87 80 - 100 fL 04/14/2025 4:53 AM [facility] MCH 27.2 26.0 - 34.0 pg 04/14/2025 4:53 AM [facility] MCHC 31.3 30.0 - 36.0 g/dL 04/14/2025 4:53 AM [facility] RDW 17.9(H) 11.5 - 14.5 % 04/14/2025 4:53 AM [facility] MPV 9.8 7.5 - 12.5 fL 04/14/2025 4:53 AM [facility] nRBC 0.4(H) 0.0 - 0.1 /100 WBC 04/14/2025 4:53 AM [facility] nRBC, Absolute 0.05(H) 0.00 - 0.02 Thou/uL 04/14/2025 4:53 AM [facility] Blood Blood specimen / Unknown 04/14/2025 4:05 AM EDT 04/14/2025 4:35 AM EDT us Lucho Donaldson MD LAB BLOOD [place]AB[place] [address], [address] [address] * (ABNORMAL) Basic Metabolic Panel (04/14/2025 4:05 AM EDT) Glucose 111(H) 65 - 99 mg/dL 04/14/2025 5:06 AM [facility] Comment:Fasting: <100 mg/dL, Non-Fasting: <200 mg/dL (ADA 2005) Blood Urea Nitrogen (BUN) 11 8 - 21 mg/dL 04/14/2025 5:06 AM [facility] Creatinine 0.74 0.40 - 1.10 mg/dL 04/14/2025 5:06 AM [facility] eGFR >90 >59 04/14/2025 5:06 AM [facility] Comment:CKD-EPI (2020) in mL /min/1.73 sq meters. Sodium 137 136 - 145 mmol/L 04/14/2025 5:06 AM [facility] Potassium 3.4 3.4 - 5.3 mmol/L 04/14/2025 5:06 AM [facility] Chloride 104 98 - 107 mmol/L 04/14/2025 5:06 AM [facility] CO2 26 22 - 33 mmol/L 04/14/2025 5:06 AM [facility] Anion Gap 7 7 - 17 04/14/2025 5:06 AM EDT [facility] Calcium 7.3(L) 8.7 - 10.5 mg/dL 04/14/2025 5:06 AM EDT [facility] BUN/Creatinine Ratio 15 10.0 - 25.0 Ratio 04/14/2025 5:06 AM EDT [facility] Blood Blood specimen / Unknown 04/14/2025 4:05 AM EDT 04/14/2025 4:35 AM EDT us Lucho Donaldson MD LAB BLOOD ORDERABLES Final Re sult Performing Organization Address [facility]/ZIP Co de Phone Number [address] [address], [address] [address] * (ABNORMAL) POCT Glucose, Fingerstick (04/13/2025 11:58 PM EDT) POC Glucose 101(H) 65 - 99 mg/dL 04/13/2025 11:59 PM EDT Blood specimen / Unknown 04/13/2025 11:58 PM EDT 04/13/2025 11:59 PM EDT us Kenton Medina MD POINT OF CARE TEST ORDERABLES Fi nal Result Performing Organization Address City/[facility]/ZIP Co de Phone Number [facility] LAB See Below * (ABNORMAL) POCT Glucose, Fingerstick (04/13/2025 8:08 PM EDT) POC Glucose 111(H) 65 - 99 mg/dL 04/13/2025 8:09 PM EDT Blood specimen / Unknown 04/13/2025 8:08 PM EDT 04/13/2025 8:09 PM EDT us Kenton Medina MD POINT OF CARE TEST ORDERABLES Fi nal Result HOSPITAL LAB See Below * (ABNORMAL) POCT Glucose, Fingerstick (04/13/2025 5:18 PM EDT) Pathologist [facility] POC Glucose 109(H) 65 - 99 mg/dL 04/13/2025 5:18 PM EDT Blood specimen / Unknown 04/13/2025 5:18 PM EDT 04/13/2025 5:19 PM EDT us Kenton Medina MD POINT OF CARE TEST ORDERABLES Fi nal Result HOSPITAL LAB See Below * ECG 12 lead (04/13/2025 2:41 PM EDT) [facility] Systolic BP 142 mmHg EKG [facility] Diastolic BP 79 mmHg EKG [facility] Ventricular rate 82 BPM EKG [facility] Atrial rate 82 BPM EKG [facility] P-R interval 138 ms EKG [facility] QRS duration 82 ms EKG [facility] Q-T interval 402 ms EKG [facility] QTC calculation (Bazett) 469 ms EKG [facility] P axis 50 degrees EKG [facility] R axis 75 degrees EKG [facility] T axis 63 degrees EKG [facility] 04/13/2025 2:41 PM EDT Narrative EKG [facility] - 04/13/2025 3:38 PM EDT Normal sinus rhythm Normal ECG When compared with ECG of 11-Apr-2025 15:24, No significant change was found Confirmed by Med Concepcion MD ([id number]) on 04/13/2025 3:37:59 PM Procedure Note Med Concepcion MD - 04/13/2025 Normal sinus rhythm Normal ECG When compared with ECG of 11-Apr-2025 15:24, No significant change was found Confirmed by Med Concepcion MD ([id number]) on 04/13/2025 3:37:59 PM us Kenton Medina MD ECG ORDERABLES Final Result Performing Organization Address City/[facility]/ZIP Co de Phone Number [facility] * (ABNORMAL) POCT Glucose, Fingerstick (04/13/2025 11:46 AM EDT) POC Glucose 125(H) 65 - 99 mg/dL 04/13/2025 11:46 AM EDT Blood specimen / Unknown 04/13/2025 11:46 AM EDT 04/13/2025 11:47 AM EDT Kenton Medina MD POINT OF CARE TEST ORDERABLES Fi nal Result HOSPITAL LAB See Below * Phosphorus (STAT) (04/13/2025 9:16 AM EDT) Phosphorus 4.1 2.7 - 4.5 mg/dL 04/13/2025 11:09 AM EDT [facility] Blood Blood specimen / Unknown 04/13/2025 9:16 AM EDT 04/13/2025 10:34 AM EDT Ani Brown APRN LAB BLOOD ORDERABLES Fin al Result Performing Organization Address [facility] [place] [address], [place] [address] * Magnesium (STAT) (04/13/2025 9:16 AM EDT) Pathologist [facility] Magnesium 2.1 1.6 - 2.7 mg/dL 04/13/2025 11:09 AM EDT [facility] Blood Blood specimen / Unknown 04/13/2025 9:16 AM EDT 04/13/2025 10:34 AM EDT Ani Brown APRN LAB BLOOD ORDERABLES Fin al Result Performing Organization Address [facility] [place] [address], [place] [address] * (ABNORMAL) Basic Metabolic Panel (STAT) (04/13/2025 9:16 AM EDT) Glucose 116(H) 65 - 99 mg/dL 04/13/2025 11:09 AM [facility] Comment:Fasting: <100 mg/dL, Non-Fasting: <200 mg/dL (ADA 2004) Blood Urea Nitrogen (BUN) 8 8 - 21 mg/dL 04/13/2025 11:09 AM [facility] Creatinine 0.55 0.40 - 1.10 mg/dL 04/13/2025 11:09 AM [facility] eGFR >90 >59 04/13/2025 11:09 AM [facility] Comment:CKD-EPI (2020) in mL /min/1.73 sq meters. Sodium 137 136 - 145 mmol/L 04/13/2025 11:10 AM [facility] Potassium 3.7 3.4 - 5.3 mmol/L 04/13/2025 11:10 AM [facility] Chloride 104 98 - 107 mmol/L 04/13/2025 11:10 AM [facility] CO2 26 22 - 33 mmol/L 04/13/2025 11:09 AM [facility] Anion Gap 7 7 - 17 04/13/2025 11:10 AM [facility] Calcium 7.5(L) 8.7 - 10.5 mg/dL 04/13/2025 11:09 AM [facility] BUN/Creatinine Ratio 15 10.0 - 25.0 Ratio 04/13/2025 11:09 AM [facility] Blood Blood specimen / Unknown 04/13/2025 9:16 AM EDT 04/13/2025 10:34 AM EDT us Ani Brown BABYSITTER LAB BLOOD ORDERABLES Fin al Result [address] [address], [address] [address] * (ABNORMAL) POCT Glucose, Fingerstick (04/13/2025 8:48 AM EDT) POC Glucose 102(H) 65 - 99 mg/dL 04/13/2025 8:52 AM EDT Blood specimen / Unknown 04/13/2025 8:48 AM EDT 04/13/2025 8:52 AM EDT us Kenton Medina MD POINT OF CARE TEST ORDERABLES Fi nal Result Performing Organization Address [facility] Co de Phone Number [facility] See Below * Vancomycin Level, Random (04/13/2025 7:00 AM EDT) Vancomycin, Random 20 mg/L 04/13/2025 8:15 AM EDT [facility] Comment:No reference range e stablished for random levels. Time of Last Dose Information not given 04/13/2025 6:22 AM EDT [facility] Blood Blood specimen / Unknown 04/13/2025 7:00 AM EDT 04/13/2025 7:41 AM EDT us Lucho Donaldson MD LAB BLOOD ORDERABLES Final Re sult Performing Organization Address [facility] [place] [address], [place] [address] * POCT Glucose, Fingerstick (04/13/2025 4:15 AM EDT) Pathologist [facility] POC Glucose 91 65 - 99 mg/dL 04/13/2025 4:16 AM EDT Blood specimen / Unknown 04/13/2025 4:15 AM EDT 04/13/2025 4:16 AM EDT us Kenton Medina MD POINT OF CARE TEST ORDERABLES Fi nal Result Performing Organization Address [facility] Co de Phone Number [facility] See Below * Phosphorus (04/13/2025 12:32 AM EDT) Phosphorus 2.8 2.7 - 4.5 mg/dL 04/13/2025 1:21 AM EDT [facility] Blood Blood specimen / Unknown 04/13/2025 12:32 AM EDT 04/13/2025 12:48 AM EDT Sara GARRETT LAB BLOOD ORDERABLES Final Res ult Performing Organization Address City/[facility]/[place] [address], [place] [address] * Magnesium (04/13/2025 12:32 AM EDT) Magnesium 2.0 1.6 - 2.7 mg/dL 04/13/2025 1:21 AM EDT [facility] Blood Blood specimen / Unknown 04/13/2025 12:32 AM EDT 04/13/2025 12:48 AM EDT Sara GARRETT LAB BLOOD ORDERABLES Final Res ult Performing Organization Address [facility] [place] [address], [address] [address] * (ABNORMAL) COMPLETE BLOOD COUNT, WITHOUT DIFFERENTIAL (04/13/2025 12:32 AM EDT) White Blood Cell Count 17.4(H) 4.0 - 11.0 Thou/uL 04/13/2025 1:03 AM [facility] Platelet Count 696(H) 150 - 450 Thou/uL 04/13/2025 1:03 AM [facility] Hemoglobin 7.8(L) 11.7 - 15.7 g/dL 04/13/2025 1:03 AM [facility] Hematocrit 23.9(L) 35.0 - 47.0 % 04/13/2025 1:03 AM [facility] Red Blood Cell Count 2.76(L) 4.00 - 5.40 Mil/uL 04/13/2025 1:03 AM [facility] MCV 87 80 - 100 fL 04/13/2025 1:03 AM [facility] MCH 28.3 26.0 - 34.0 pg 04/13/2025 1:03 AM [facility] MCHC 32.6 30.0 - 36.0 g/dL 04/13/2025 1:03 AM [facility] RDW 17.6(H) 11.5 - 14.5 % 04/13/2025 1:03 AM [facility] MPV 9.4 7.5 - 12.5 fL 04/13/2025 1:03 AM [facility] nRBC 0.2(H) 0.0 - 0.1 /100 WBC 04/13/2025 1:03 AM [facility] nRBC, Absolute 0.03(H) 0.00 - 0.02 Thou/uL 04/13/2025 1:03 AM [facility] Blood Blood specimen / Unknown 04/13/2025 12:32 AM EDT 04/13/2025 12:48 AM EDT Sara GARRETT LAB BLOOD [place]AB[place] [address], [address] [address] * (ABNORMAL) Basic Metabolic Panel (04/13/2025 12:32 AM EDT) Glucose 102(H) 65 - 99 mg/dL 04/13/2025 1:21 AM [facility] Comment:Fasting: <100 mg/dL, Non-Fasting: <200 mg/dL (ADA 2005) Blood Urea Nitrogen (BUN) 10 8 - 21 mg/dL 04/13/2025 1:21 AM [facility] Creatinine 0.58 0.40 - 1.10 mg/dL 04/13/2025 1:21 AM [facility] eGFR >90 >59 04/13/2025 1:21 AM [facility] Comment:CKD-EPI (2020) in mL /min/1.73 sq meters. Sodium 133(L) 136 - 145 mmol/L 04/13/2025 1:21 AM [facility] Potassium 2.8(L) 3.4 - 5.3 mmol/L 04/13/2025 1:21 AM EDT [facility] Chloride 98 98 - 107 mmol/L 04/13/2025 1:21 AM EDT [facility] CO2 27 22 - 33 mmol/L 04/13/2025 1:21 AM EDT [facility] Anion Gap 8 7 - 17 04/13/2025 1:21 AM EDT [facility] Calcium 7.5(L) 8.7 - 10.5 mg/dL 04/13/2025 1:21 AM EDT [facility] BUN/Creatinine Ratio 17 10.0 - 25.0 Ratio 04/13/2025 1:21 AM EDT [facility] Blood Blood specimen / Unknown 04/13/2025 12:32 AM EDT 04/13/2025 12:48 AM EDT Sara GARRETT LAB BLOOD ORDERABLES Final Res ult Performing Organization Address [facility] [place] [address], [place] [address] * POCT Glucose, Fingerstick (04/13/2025 12:18 AM EDT) POC Glucose 90 65 - 99 mg/dL 04/13/2025 12:19 AM EDT Blood specimen / Unknown 04/13/2025 12:18 AM EDT 04/13/2025 12:19 AM EDT us Kenton Medina MD POINT OF CARE TEST ORDERABLES Fi nal Result HOSPITAL LAB See Below * (ABNORMAL) POCT Glucose, Fingerstick (04/12/2025 8:10 PM EDT) POC Glucose 131(H) 65 - 99 mg/dL 04/12/2025 8:14 PM EDT Blood specimen / Unknown 04/12/2025 8:10 PM EDT 04/12/2025 8:14 PM EDT us Kenton Medina MD POINT OF CARE TEST ORDERABLES Fi nal Result Performing Organization Address City/State/[facility] LAB See Below * POCT Glucose, Fingerstick (04/12/2025 3:55 PM EDT) POC Glucose 99 65 - 99 mg/dL 04/12/2025 3:55 PM EDT Blood specimen / Unknown 04/12/2025 3:55 PM EDT 04/12/2025 3:56 PM EDT us Kenton Medina MD POINT OF CARE TEST ORDERABLES Fi nal Result Performing Organization Address [facility] LAB See Below * (ABNORMAL) POCT Glucose, Fingerstick (04/12/2025 11:44 AM EDT) POC Glucose 104(H) 65 - 99 mg/dL 04/12/2025 11:44 AM EDT Blood specimen / Unknown 04/12/2025 11:44 AM EDT 04/12/2025 11:45 AM EDT us Kenton Medina MD POINT OF CARE TEST ORDERABLES Fi nal Result Performing Organization Address [facility] LAB See Below * (ABNORMAL) POCT Glucose, Fingerstick (04/12/2025 8:50 AM EDT) POC Glucose 106(H) 65 - 99 mg/dL 04/12/2025 8:54 AM EDT Blood specimen / Unknown 04/12/2025 8:50 AM EDT 04/12/2025 8:54 AM EDT us Kenton Medina MD POINT OF CARE TEST ORDERABLES Fi nal Result Performing Organization [facility] LAB See Below * POCT Glucose, Fingerstick (04/12/2025 3:51 AM EDT) POC Glucose 95 65 - 99 mg/dL 04/12/2025 3:52 AM EDT Blood specimen / Unknown 04/12/2025 3:51 AM EDT 04/12/2025 3:52 AM EDT us Kenton Medina MD POINT OF CARE TEST ORDERABLES Fi nal Result HOSPITAL LAB See Below * Magnesium (04/12/2025 12:08 AM EDT) Magnesium 2.0 1.6 - 2.7 mg/dL 04/12/2025 1:36 AM EDT [facility] Blood Blood specimen / Unknown 04/12/2025 12:08 AM EDT 04/12/2025 12:49 AM EDT Daniel Palacios PA-C LAB BLOOD ORDERABLES Fin al Result Performing Organization Address [facility] [place] [address], [place] [address] * Phosphorus (04/12/2025 12:08 AM EDT) Phosphorus 3.3 2.7 - 4.5 mg/dL 04/12/2025 1:36 AM EDT [facility] Blood Blood specimen / Unknown 04/12/2025 12:08 AM EDT 04/12/2025 12:49 AM EDT Daniel Palacios PA-C LAB BLOOD ORDERABLES Fin al Result Performing Organization Address [facility] [place] [address], [address] [address] * (ABNORMAL) Complete Blood Count, WITHOUT Differential (routine) (04/12/2025 12:08 AM EDT) White Blood Cell Count 17.5(H) 4.0 - 11.0 Thou/uL 04/12/2025 1:13 AM EDT [facility] Platelet Count 474(H) 150 - 450 Thou/uL 04/12/2025 1:13 AM [facility] Hemoglobin 7.4(L) 11.7 - 15.7 g/dL 04/12/2025 1:13 AM [facility] Hematocrit 22.6(L) 35.0 - 47.0 % 04/12/2025 1:13 AM [facility] Red Blood Cell Count 2.60(L) 4.00 - 5.40 Mil/uL 04/12/2025 1:13 AM [facility] MCV 87 80 - 100 fL 04/12/2025 1:13 AM [facility] MCH 28.5 26.0 - 34.0 pg 04/12/2025 1:13 AM [facility] MCHC 32.7 30.0 - 36.0 g/dL 04/12/2025 1:13 AM [facility] RDW 17.1(H) 11.5 - 14.5 % 04/12/2025 1:13 AM [facility] MPV 9.6 7.5 - 12.5 fL 04/12/2025 1:13 AM [facility] nRBC 0.2(H) 0.0 - 0.1 /100 WBC 04/12/2025 1:13 AM [facility] nRBC, Absolute 0.03(H) 0.00 - 0.02 Thou/uL 04/12/2025 1:13 AM [facility] Blood Blood specimen / Unknown 04/12/2025 12:08 AM EDT 04/12/2025 12:49 AM EDT Daniel Palacios PA-C LAB BLOOD ORDERABLES Fin al Result [address] [address], [address] [address] * (ABNORMAL) Basic Metabolic Panel (04/12/2025 12:08 AM EDT) Pathologist [facility] Glucose 87 65 - 99 mg/dL 04/12/2025 1:36 AM T [facility] Comment:Fasting: <100 mg/dL, Non-Fasting: <200 mg/dL (ADA 2005) Blood Urea Nitrogen (BUN) 9 8 - 21 mg/dL 04/12/2025 1:36 AM EDT [facility] Creatinine 0.54 0.40 - 1.10 mg/dL 04/12/2025 1:36 AM [facility] eGFR >90 >59 04/12/2025 1:36 AM T [facility] Comment:CKD-EPI (2020) in mL /min/1.73 sq meters. Sodium 141 136 - 145 mmol/L 04/12/2025 1:36 AM EDT [facility] Potassium 3.5 3.4 - 5.3 mmol/L 04/12/2025 1:36 AM [facility] Chloride 105 98 - 107 mmol/L 04/12/2025 1:36 AM T [facility] CO2 28 22 - 33 mmol/L 04/12/2025 1:36 AM [facility] Anion Gap 8 7 - 17 04/12/2025 1:36 AM [facility] Calcium 7.1(L) 8.7 - 10.5 mg/dL 04/12/2025 1:36 AM T [facility] BUN/Creatinine Ratio 17 10.0 - 25.0 Ratio 04/12/2025 1:36 AM [facility] Blood Blood specimen / Unknown 04/12/2025 12:08 AM EDT 04/12/2025 12:49 AM EDT Daniel Palacios PA-C LAB BLOOD [place]AB[place] [address], [place] [address] * POCT Glucose, Fingerstick (04/11/2025 11:54 PM EDT) POC Glucose 90 65 - 99 mg/dL 04/11/2025 11:58 PM EDT Blood specimen / Unknown 04/11/2025 11:54 PM EDT 04/11/2025 11:58 PM EDT us Kenton Medina MD POINT OF CARE TEST ORDERABLES Fi nal Result Performing Organization Address [facility] Phone Number [facility] LAB See Below * POCT Glucose, Fingerstick (04/11/2025 8:45 PM EDT) POC Glucose 89 65 - 99 mg/dL 04/11/2025 8:50 PM EDT Blood specimen / Unknown 04/11/2025 8:45 PM EDT 04/11/2025 8:50 PM EDT us Kenton Medina MD POINT OF CARE TEST ORDERABLES Fi nal Result Performing Organization Address [facility] LAB See Below * (ABNORMAL) POCT Glucose, Fingerstick (04/11/2025 4:01 PM EDT) POC Glucose 107(H) 65 - 99 mg/dL 04/11/2025 4:18 PM EDT Blood specimen / Unknown 04/11/2025 4:01 PM EDT 04/11/2025 4:18 PM EDT us Kenton Medina MD POINT OF CARE TEST ORDERABLES Fi nal Result Performing Organization Address [facility] LAB See Below * ECG 12 lead (04/11/2025 3:24 PM EDT) Systolic BP 160 mmHg EKG [facility] Diastolic BP 74 mmHg EKG [facility] Ventricular rate 69 BPM EKG [facility] Atrial rate 69 BPM EKG [facility] P-R interval 146 ms EKG [facility] QRS duration 86 ms EKG [facility] Q-T interval 450 ms EKG [facility] QTC calculation (Bazett) 482 ms EKG [facility] P axis 47 degrees EKG [facility] R axis 64 degrees EKG [facility] T axis 53 degrees EKG [facility] 04/11/2025 3:24 PM EDT Narrative EKG [facility] - 04/11/2025 5:24 PM EDT Normal sinus rhythm Prolonged QT Abnormal ECG When compared with ECG of 07-Apr-2025 10:00, QT has lengthened Confirmed by Mariposa Baumann MD ([id number]) on 04/11/2025 5:24:27 PM Procedure Note Mariposa Baumann MD - 04/11/2025 Normal sinus rhythm Prolonged QT Abnormal ECG When compared with ECG of 07-Apr-2025 10:00, QT has lengthened Confirmed by Mariposa Baumann MD ([id number]) on 04/11/2025 5:24:27 PM us Kenton Medina MD ECG ORDERABLES Final Result EKG [facility] * XR Abdomen 1 view (04/11/2025 12:15 PM EDT) Anatomical Region Laterality Modality Abdomen Computed Radiogr aphy 04/11/2025 11:4 6 AM EDT Impressions 04/11/2025 3:08 PM EDT The tip of the Dobbhoff tube terminates over the second portion of the duodenum. The NG tube terminates over the distal stomach, unchanged in position. Narrative 04/11/2025 3:08 PM EDT EXAMINATION: XR ABDOMEN KUB CLINICAL INDICATION: tube placement COMPARISON: Abdominal radiograph dated April 08, 2025. TECHNIQUE: AP view of the abdomen. FINDINGS: The tip of the Dobbhoff tube terminates over the second portion of the duodenum. The NG tube terminates over the distal stomach, unchanged in position. The bowel gas pattern is nonobstructive. Procedure Note Ryland Del Cid DO - 04/11/2025 EXAMINATION: XR ABDOMEN KUB CLINICAL INDICATION: tube placement COMPARISON: Abdominal radiograph dated April 08, 2025. TECHNIQUE: AP view of the abdomen. FINDINGS: The tip of the Dobbhoff tube terminates over the second portion of the duodenum. The NG tube terminates over the distal stomach, unchanged in position. The bowel gas pattern is nonobstructive. IMPRESSION: The tip of the Dobbhoff tube terminates over the second portion of the duodenum. The NG tube terminates over the distal stomach, unchanged in position. Sophia Yarbrough MD IMG DIAGNOSTIC IMAGING ORDERABLES Final Result * (ABNORMAL) POCT Glucose, Fingerstick (04/11/2025 12:08 PM EDT) Pathologist [facility] POC Glucose 106(H) 65 - 99 mg/dL 04/11/2025 12:14 PM EDT Blood specimen / Unknown 04/11/2025 12:08 PM EDT 04/11/2025 12:14 PM EDT Kenton Medina MD POINT OF CARE TEST ORDERABLES Fi nal Result Performing Organization Address [facility] Phone [facility] LAB See Below * (ABNORMAL) POCT Glucose, Fingerstick (04/11/2025 8:01 AM EDT) Pathologist [facility] POC Glucose 116(H) 65 - 99 mg/dL 04/11/2025 8:03 AM EDT Blood specimen / Unknown 04/11/2025 8:01 AM EDT 04/11/2025 8:02 AM EDT Kenton Medina MD POINT OF CARE TEST ORDERABLES Fi nal Result Performing Organization Address [facility] LAB See Below * (ABNORMAL) Complete Blood Count WITHOUT Differential - in AM (04/11/2025 6:30 AM EDT) Pathologist [facility] White Blood Cell Count 22.1(H) 4.0 - 11.0 Thou/uL 04/11/2025 8:05 AM T [facility] Platelet Count 433 150 - 450 Thou/uL 04/11/2025 8:05 AM T [facility] Hemoglobin 8.3(L) 11.7 - 15.7 g/dL 04/11/2025 8:05 AM T [facility] Hematocrit 25.3(L) 35.0 - 47.0 % 04/11/2025 8:05 AM T [facility] Red Blood Cell Count 2.90(L) 4.00 - 5.40 Mil/uL 04/11/2025 8:05 AM [facility] MCV 87 80 - 100 fL 04/11/2025 8:05 AM [facility] Comment:Significant change i n values noted, consider specimen integrity. If results are not expected, correlate clinically and re-collect sample if indicated. MCH 28.6 26.0 - 34.0 pg 04/11/2025 8:05 AM [facility] MCHC 32.8 30.0 - 36.0 g/dL 04/11/2025 8:05 AM [facility] RDW 16.9(H) 11.5 - 14.5 % 04/11/2025 8:05 AM [facility] MPV 9.4 7.5 - 12.5 fL 04/11/2025 8:05 AM [facility] nRBC 0.2(H) 0.0 - 0.1 /100 WBC 04/11/2025 8:05 AM [facility] nRBC, Absolute 0.04(H) 0.00 - 0.02 Thou/uL 04/11/2025 8:05 AM [facility] Blood Blood specimen / Unknown 04/11/2025 6:30 AM EDT 04/11/2025 7:40 AM EDT us Daniel Palacios PA-C LAB BLOOD ORDERABLES Fin al Result Performing Organization Address City/State/[facility] [place] [address], [address] [address] * Transfuse RBC's:Transfusion Indications: Hemoglobin less than 7 gm/dl or HCT less than 21%; Transfusion duration per unit (hrs): 1 (04/11/2025 5:17 AM EDT) us Daniel Palacios PA-C BLOOD TRANSFUSION ORDERA BLES Final Result * Transfuse RBC's:Transfusion Indications: Hemoglobin less than 7 gm/dl or HCT less than 21%; Transfusion duration per unit (hrs): 1 (04/11/2025 5:17 AM EDT) us Daniel Palacios PA-C BLOOD TRANSFUSION ORDERA BLES Final Result * (ABNORMAL) POCT Glucose, Fingerstick (04/11/2025 4:00 AM EDT) POC Glucose 117(H) 65 - 99 mg/dL 04/11/2025 4:09 AM EDT Blood specimen / Unknown 04/11/2025 4:00 AM EDT 04/11/2025 4:09 AM EDT us Kenton Medina MD POINT OF CARE TEST ORDERABLES Fi nal Result HOSPITAL LAB See Below * (ABNORMAL) Thromboelastograph (TEG) (04/11/2025 2:18 AM EDT) Reaction Time 5.1 5 - 10 minutes 04/11/2025 4:07 AM [facility] Reaction Time,Heparinized 4.9(L) 5 - 10 minutes 04/11/2025 4:07 AM [facility] Fibrin Function 1.1 1 - 3 minutes 04/11/2025 4:07 AM [facility] Fibrin Function,Heparini zed 0.8(L) 1 - 3 minutes 04/11/2025 4:07 AM [facility] Angle 74.8(H) 53 - 72 degrees 04/11/2025 4:07 AM [facility] Angle, Heparinized 78.7(H) 53 - 72 degrees 04/11/2025 4:07 AM [facility] Max Amplitude 72.6(H) 50 - 70 mm 04/11/2025 4:07 AM [facility] Max Amplitude,Heparin ized 74.8(H) 50 - 70 mm 04/11/2025 4:07 AM [facility] %Lysis 30 min 0.0 0 - 8 % 04/11/2025 4:07 AM [facility] %Lysis 30 min,Heparinized 0.6 0 - 8 % 04/11/2025 4:07 AM [facility] Anticoagulant NO ANTI COAGULANT MEDS 04/11/2025 2:18 AM [facility] Blood Blood specimen / Unknown 04/11/2025 2:18 AM EDT 04/11/2025 2:28 AM EDT us Daniel Palacios PA-C LAB BLOOD ORDERABLES Fin al Result Performing Organization Address [facility] Co de Phone Number [address] [address], [address] [address] * (ABNORMAL) Phosphorus (04/11/2025 12:57 AM EDT) Phosphorus 4.8(H) 2.7 - 4.5 mg/dL 04/11/2025 1:40 AM EDT [facility] Blood Blood specimen / Unknown 04/11/2025 12:57 AM EDT 04/11/2025 1:09 AM EDT us Daniel Palacios PA-C LAB BLOOD ORDERABLES Fin al Result Performing Organization Address [facility] Co de Phone Number [address] [address], [address] [address] [address] * Magnesium (04/11/2025 12:57 AM EDT) Magnesium 1.9 1.6 - 2.7 mg/dL 04/11/2025 1:40 AM EDT [facility] Blood Blood specimen / Unknown 04/11/2025 12:57 AM EDT 04/11/2025 1:09 AM EDT us Daniel Palacios PA-C LAB BLOOD ORDERABLES Fin al Result Performing Organization Address [facility] Co de Phone Number [address] [address], [address] [address] * (ABNORMAL) Basic Metabolic Panel (04/11/2025 12:57 AM EDT) Glucose 115(H) 65 - 99 mg/dL 04/11/2025 1:40 AM [facility] Comment:Fasting: <100 mg/dL, Non-Fasting: <200 mg/dL (ADA 2004) Blood Urea Nitrogen (BUN) 9 8 - 21 mg/dL 04/11/2025 1:40 AM [facility] Creatinine 0.61 0.40 - 1.10 mg/dL 04/11/2025 1:40 AM [facility] eGFR >90 >59 04/11/2025 1:40 AM [facility] Comment:CKD-EPI (2020) in mL /min/1.73 sq meters. Sodium 139 136 - 145 mmol/L 04/11/2025 1:40 AM [facility] Potassium 3.5 3.4 - 5.3 mmol/L 04/11/2025 1:40 AM [facility] Chloride 106 98 - 107 mmol/L 04/11/2025 1:40 AM [facility] CO2 26 22 - 33 mmol/L 04/11/2025 1:40 AM [facility] Anion Gap 7 7 - 17 04/11/2025 1:40 AM [facility] Calcium 7.1(L) 8.7 - 10.5 mg/dL 04/11/2025 1:40 AM [facility] BUN/Creatinine Ratio 15 10.0 - 25.0 Ratio 04/11/2025 1:40 AM [facility] Blood Blood specimen / Unknown 04/11/2025 12:57 AM EDT 04/11/2025 1:09 AM EDT Daniel Palacios PA-C LAB BLOOD ORDERABLES Fin al Result [address] [address], [address] [address] * (ABNORMAL) Complete Blood Count, WITHOUT Differential (routine) (04/11/2025 12:57 AM EDT) White Blood Cell Count 19.5(H) 4.0 - 11.0 Thou/uL [facility] Count 434 150 - 450 Thou/uL 04/11/2025 1:36 AM [facility] Hemoglobin 6.3(L) 11.7 - 15.7 g/dL 04/11/2025 1:36 AM [facility] Hematocrit 18.7(LL) 35.0 - 47.0 % 04/11/2025 1:36 AM [facility] Comment:Test results repeate d. Red Blood Cell Count 2.31(L) 4.00 - 5.40 Mil/uL 04/11/2025 1:36 AM [facility] MCV 82 80 - 100 fL 04/11/2025 1:36 AM [facility] MCH 27.3 26.0 - 34.0 pg 04/11/2025 1:36 AM [facility] MCHC 33.3 30.0 - 36.0 g/dL 04/11/2025 1:36 AM [facility] RDW 16.7(H) 11.5 - 14.5 % 04/11/2025 1:36 AM [facility] MPV 9.4 7.5 - 12.5 fL 04/11/2025 1:36 AM [facility] nRBC 0.2(H) 0.0 - 0.1 /100 WBC 04/11/2025 1:36 AM [facility] nRBC, Absolute 0.04(H) 0.00 - 0.02 Thou/uL 04/11/2025 1:36 AM [facility] Blood Blood specimen / Unknown 04/11/2025 12:57 AM EDT 04/11/2025 1:09 AM EDT Daniel Palacios PA-C LAB BLOOD ORDERABLES Fin al Result [address] [address], [address] [address] * (ABNORMAL) POCT Glucose, Fingerstick (04/11/2025 12:31 AM EDT) POC Glucose 103(H) 65 - 99 mg/dL 04/11/2025 12:35 AM EDT Blood specimen / Unknown 04/11/2025 12:31 AM EDT 04/11/2025 12:35 AM EDT Result Long Medina MD POINT OF CARE TEST ORDERABLES Fi nal Result Performing Organization Address [facility] LAB See Below * POCT Glucose, Fingerstick (04/10/2025 8:04 PM EDT) POC Glucose 94 65 - 99 mg/dL 04/10/2025 8:04 PM EDT Blood specimen / Unknown 04/10/2025 8:04 PM EDT 04/10/2025 8:05 PM EDT us Kenton Medina MD POINT OF CARE TEST ORDERABLES Fi nal Result Performing Organization Address [facility] LAB See Below * (ABNORMAL) POCT Glucose, Fingerstick (04/10/2025 3:47 PM EDT) POC Glucose 126(H) 65 - 99 mg/dL 04/10/2025 3:51 PM EDT Blood specimen / Unknown 04/10/2025 3:47 PM EDT 04/10/2025 3:51 PM EDT Result Long Medina MD POINT OF CARE TEST ORDERABLES Fi nal Result Performing Organization Address [facility] LAB See Below * (ABNORMAL) COMPLETE BLOOD COUNT, WITHOUT DIFFERENTIAL (04/10/2025 3:13 PM EDT) White Blood Cell Count 17.8(H) 4.0 - 11.0 Thou/uL 04/10/2025 5:33 PM EDT [facility] Platelet Count 411 150 - 450 Thou/uL 04/10/2025 5:33 PM EDT [facility] Hemoglobin 7.4(L) 11.7 - 15.7 g/dL 04/10/2025 5:33 PM EDT [facility] Hematocrit 21.8(L) 35.0 - 47.0 % 04/10/2025 5:33 PM EDT [facility] Red Blood Cell Count 2.65(L) 4.00 - 5.40 Mil/uL 04/10/2025 5:33 PM EDT [facility] MCV 82 80 - 100 fL 04/10/2025 5:33 PM EDT [facility] MCH 27.9 26.0 - 34.0 pg 04/10/2025 5:33 PM EDT [facility] MCHC 33.9 30.0 - 36.0 g/dL 04/10/2025 5:33 PM EDT [facility] RDW 16.6(H) 11.5 - 14.5 % 04/10/2025 5:33 PM EDT [facility] MPV 9.4 7.5 - 12.5 fL 04/10/2025 5:33 PM EDT [facility] nRBC 0.3(H) 0.0 - 0.1 /100 WBC 04/10/2025 5:33 PM EDT [facility] nRBC, Absolute 0.06(H) 0.00 - 0.02 Thou/uL 04/10/2025 5:33 PM EDT [facility] Blood Blood specimen / Unknown 04/10/2025 3:13 PM EDT 04/10/2025 5:17 PM EDT us Luda Houser BABYSITTER LAB BLOOD ORDERABLES Final R esult Performing Organization Address City/[facility] Co de Phone Number [address] [address], [address] [address] * (ABNORMAL) POCT Glucose, Fingerstick (04/10/2025 12:02 PM EDT) POC Glucose 124(H) 65 - 99 mg/dL 04/10/2025 12:02 PM EDT Blood specimen / Unknown 04/10/2025 12:02 PM EDT 04/10/2025 12:03 PM EDT us Kenton Medina MD POINT OF CARE TEST ORDERABLES Fi nal Result HOSPITAL LAB See Below * (ABNORMAL) COMPLETE BLOOD COUNT, WITHOUT DIFFERENTIAL (04/10/2025 9:14 AM EDT) White Blood Cell Count 20.8(H) 4.0 - 11.0 Thou/uL 04/10/2025 9:50 AM EDT [facility] Platelet Count 402 150 - 450 Thou/uL 04/10/2025 9:50 AM [facility] Hemoglobin 8.1(L) 11.7 - 15.7 g/dL 04/10/2025 9:50 AM [facility] Hematocrit 23.9(L) 35.0 - 47.0 % 04/10/2025 9:50 AM [facility] Red Blood Cell Count 2.95(L) 4.00 - 5.40 Mil/uL 04/10/2025 9:50 AM [facility] MCV 81 80 - 100 fL 04/10/2025 9:50 AM [facility] MCH 27.5 26.0 - 34.0 pg 04/10/2025 9:50 AM [facility] MCHC 33.9 30.0 - 36.0 g/dL 04/10/2025 9:50 AM [facility] RDW 17.0(H) 11.5 - 14.5 % 04/10/2025 9:50 AM [facility] MPV 9.6 7.5 - 12.5 fL 04/10/2025 9:50 AM [facility] nRBC 0.3(H) 0.0 - 0.1 /100 WBC 04/10/2025 9:50 AM [facility] nRBC, Absolute 0.07(H) 0.00 - 0.02 Thou/uL 04/10/2025 9:50 AM [facility] Blood Blood specimen / Unknown 04/10/2025 9:14 AM EDT 04/10/2025 9:27 AM EDT us Luda Houser BABYSITTER LAB BLOOD ORDERABLES Final R esult [id number] [address], [address] [address] * ECHOCARDIOGRAM COMPREHENSIVE (04/10/2025 8:56 AM EDT) LV stallings vol 3D 95.0 mL LV Diastolic Volume 86 mL LV sys vol 3D 36.0 mL LV Systolic Volume 31 mL IVS (F:0.6-0.9, M:0.6-1.0) 1.0 cm IVS Mean (F:0.6-0.9, M:0.6-1.0) 1.0 cm LVIDD (F:3.8-5.2, M:4.2-5.8) 4.1 cm LVIDD Mean (F:3.8-5.2, M:4.2-5.8) 4.1 cm LVIDS (F:2.2-3.5, M:2.5-4.0) 2.3 cm LVIDS (F:2.2-3.5, M:2.5-4.0) 2.3 cm LVOT diameter 2.0 cm LVOT diameter mean 2.0 cm LVOT mn grad mean 3.0 mmHg LVOT VTI MEAN 18.9 cm LVOT mn grad 3.0 mmHg LVOT VTI 18.9 cm LVOT peak alvaro 1.1 m/s LVOT peak alvaro mean 1.1 m/s PW (F:0.6-0.9, M:0.6-1.0) 0.7 cm PW Mean (F:0.6-0.9, M:0.6-1.0) 0.7 cm MV E' Lateral Velocity 14.80 cm/s MV E' Lateral Velocity Mean 14.80 cm/s MV E' Septal Velocity 9.79 cm/s MV E' Septal Velocity Mean 9.79 cm/s LA sup-inf (apical 2-ch view) 4.16 cm LA volume 21.7 mL RA area 10.2 cm2 RA 2D Volume 19.0 mL Sinuses of Valsalva 3.3 cm Sinuses of Valsalva Mean 3.3 cm IVC Expiration Diameter 1.4 cm IVC Expiration Diameter Mean 1.4 cm IVC Inspiration Diameter 1.1 cm IVC Inspiration Diameter Mean 1.1 cm E wave decelartion time 190 ms E wave decelartion time mean 190 ms MV Peak A-Wave 56.6 cm/s MV Peak A-Wave Mean 56.6 cm/s MV Peak E-Wave 65.1 cm/s MV Peak E-Wave Mean 65.1 cm/s RVID d 3.0 cm RVID d Mean 3.0 cm RV Free wall pk S' 19.7 cm/s RV Free wall pk S' Mean 19.7 cm/s Tapse 2.4 cm Tapse Mean 2.4 cm Heart Rate 87 bpm BP Systolic 161 mmHg BP Diastolic 68 mmHg Height 62.00 inches Weight 165.00 lbs LV Mass Index (F:43-95, M:49-115) 59.9 g/m2 LA Volume Index (16-34) 12.3 mL/m2 LV Diastolic Volume Index (F:29-61, M:35-75) 48.8 mL/m2 LV Systolic Volume Index (F:8-24, M:11-31) 17.6 mL/m2 E/E' ratio 4.40 LVOT stroke volume 59 mL LVOT area 3.1 cm2 E/A ratio 1.15 AV LVOT peak gradient 4.8 mmHg SVI 33 mL/m2 Sinuses of Valsalva Index 1.9 cm/m2 EF - 3D Echo 62 % LV mass 105.6 g Nelson BP EF (55-75) 64 % LA Volume Index 10.8 mL/m2 E/E' Average 5.5 IVCPERCENTCOLLAPSE 0.21 % E/E' Septal 6.6 E/E' Lateral 4.4 LVOT SI 33.69 mL/m2 LV RWT 0.34 Left Ventricular Cardiac Index 2.9 L/min/m2 Left Ventricular Cardiac Output 5.2 L/min BSA 1.76 m2 Anatomical Region Laterality Modality Heart Ultrasound Narrative 04/10/2025 9:19 AM EDT The left ventricle is normal in size. Left ventricular systolic function is normal. The quantitative EF is 62% by 3D imaging, and 64% by 2D Nelson biplane. Diastolic function is normal. The right ventricle is normal in size. Right ventricular systolic function is normal. There is no hemodynamically significant valve disease present. There is no echocardiographic evidence of endocarditis. There is a small pericardial effusion. There is no previous study for comparison in our system. Technical Details Definity contrast was used during the study. Overall the study quality was adequate. The study was technically difficult. 3D echocardiographic imaging of left ventricle structure and function and right ventricle structure and function assessment was performed demonstrating the following study findings. Left Ventricle The left ventricle is normal in size. Wall thickness is normal. Left ventricular systolic function is normal. The quantitative EF is 62% by 3D imaging, and 64% by 2D Nelson biplane. No wall motion abnormalities are present. Diastolic function is normal. Right Ventricle The right ventricle is normal in size. Right ventricular systolic function is normal. Left Atrium Left atrial size is normal. The pulmonary veins exhibit systolic dominant flow. Right Atrium Right atrial size is normal. Right atrial pressure cannot be accurately assessed in the setting of mechanical ventilation. Mitral Valve The mitral valve is structurally normal. There is trace mitral regurgitation.There is no evidence of vegetation on the mitral valve. Tricuspid Valve The tricuspid valve is structurally normal. There is trace tricuspid regurgitation. The absence of sufficient significant tricuspid regurgitation precludes estimation of right ventricular systolic pressure. There is no evidence of vegetation on the tricuspid valve. Aortic Valve The aortic valve is tricuspid. There is no aortic regurgitation or stenosis. There is no evidence of vegetation on the aortic valve. Pulmonic Valve The pulmonic valve is structurally normal. There is trace pulmonic regurgitation. Ascending Aorta The aortic root dimension is normal. Pericardium There is a small pericardial effusion. Prior Study There is no previous study for comparison in our system. Ani Brown APRN CV ECHO ORDERABLES Final Result * (ABNORMAL) POCT Glucose, Fingerstick (04/10/2025 8:01 AM EDT) POC Glucose 137(H) 65 - 99 mg/dL 04/10/2025 8:11 AM EDT Blood specimen / Unknown 04/10/2025 8:01 AM EDT 04/10/2025 8:11 AM EDT Kenton Medina MD POINT OF CARE TEST ORDERABLES Fi nal Result HOSPITAL LAB See Below * Transfuse RBC's:Transfusion Indications: Hemoglobin greater than 7 gm/dl or HCT greater than 21% but Acute blood loss greater than 500 ml and symptoms not corrected by volume; Transfusion duration per unit (hrs): 1 (04/10/2025 7:09 AM EDT) us Luda Houser APRN BLOOD TRANSFUSION ORDERABLES Final Result * Transfuse RBC's:Transfusion Indications: Hemoglobin greater than 7 gm/dl or HCT greater than 21% but Acute blood loss greater than 500 ml and symptoms not corrected by volume; Transfusion duration per unit (hrs): 1 (04/10/2025 7:09 AM EDT) us Luda Houser APRN BLOOD TRANSFUSION ORDERABLES Final Result * (ABNORMAL) POCT Glucose, Fingerstick (04/10/2025 4:10 AM EDT) POC Glucose 150(H) 65 - 99 mg/dL 04/10/2025 4:14 AM EDT Blood specimen / Unknown 04/10/2025 4:10 AM EDT 04/10/2025 4:14 AM EDT us Kenton Medina MD POINT OF CARE TEST ORDERABLES Fi nal Result HOSPITAL LAB See Below * Prepare RBC's:Prepare in: Units; Number of Units: 1; Transfusion Indications: Hemoglobin greater than 7 gm/dl or HCT greater than 21% but Acute blood loss greater than 500 ml and symptoms not corrected by volume (04/10/2025 3:50 AM EDT) Units Ordered 1 04/10/2025 3:49 AM EDT [facility] 04/10/2025 3:50 AM EDT 04/10/2025 3:51 AM EDT us Luda Houser APRN BLOOD BANK PRODUCT ORDERABLE S Final Result Performing Organization Address City/[facility]/ZIP Co de Phone Number [address] [address], [address] [address] * (ABNORMAL) POCT Glucose, Fingerstick (04/10/2025 12:25 AM EDT) POC Glucose 244(H) 65 - 99 mg/dL 04/10/2025 12:25 AM EDT Blood specimen / Unknown 04/10/2025 12:25 AM EDT 04/10/2025 12:26 AM EDT us Kenton Medina MD POINT OF CARE TEST ORDERABLES Fi nal Result [facility] LAB See Below * (ABNORMAL) POCT Glucose, Fingerstick (04/10/2025 12:22 AM EDT) POC Glucose 240(H) 65 - 99 mg/dL 04/10/2025 12:23 AM EDT Blood specimen / Unknown 04/10/2025 12:22 AM EDT 04/10/2025 12:23 AM EDT us Kenton Medina MD POINT OF CARE TEST ORDERABLES Fi nal Result Performing Organization Address City/[facility] Co de Phone Number [facility] LAB See Below * (ABNORMAL) Phosphorus (04/10/2025 12:06 AM EDT) Phosphorus 5.3(H) 2.7 - 4.5 mg/dL 04/10/2025 1:56 AM EDT [facility] Blood Blood specimen / Unknown 04/10/2025 12:06 AM EDT 04/10/2025 1:03 AM EDT Luda Houser APRN LAB BLOOD ORDERABLES Final R esult Performing Organization Address [facility] Co de Phone Number [address] [address], [address] [address] * Magnesium (04/10/2025 12:06 AM EDT) Magnesium 1.9 1.6 - 2.7 mg/dL 04/10/2025 1:56 AM [facility] Blood Blood specimen / Unknown 04/10/2025 12:06 AM EDT 04/10/2025 1:03 AM EDT Luda Houser BABYSITTER LAB BLOOD ORDERABLES Final R esult [address] [address], [address] [address] * (ABNORMAL) Basic Metabolic Panel (04/10/2025 12:06 AM EDT) Glucose 205(H) 65 - 99 mg/dL 04/10/2025 1:56 AM [facility] Comment:Fasting: <100 mg/dL, Non-Fasting: <200 mg/dL (ADA 2004) Blood Urea Nitrogen (BUN) 9 8 - 21 mg/dL 04/10/2025 1:56 AM [facility] Creatinine 0.54 0.40 - 1.10 mg/dL 04/10/2025 1:56 AM [facility] eGFR >90 >59 04/10/2025 1:56 AM [facility] Comment:CKD-EPI (2020) in mL /min/1.73 sq meters. Sodium 136 136 - 145 mmol/L 04/10/2025 1:56 AM [facility] Potassium 4.3 3.4 - 5.3 mmol/L 04/10/2025 1:56 AM [facility] Chloride 102 98 - 107 mmol/L 04/10/2025 1:56 AM [facility] CO2 25 22 - 33 mmol/L 04/10/2025 1:56 AM [facility] Anion Gap 9 7 - 17 04/10/2025 1:56 AM [facility] Calcium 7.5(L) 8.7 - 10.5 mg/dL 04/10/2025 1:56 AM [facility] BUN/Creatinine Ratio 17 10.0 - 25.0 Ratio 04/10/2025 1:56 AM [facility] Blood Blood specimen / Unknown 04/10/2025 12:06 AM EDT 04/10/2025 1:03 AM EDT Luda Houser BABYSITTER LAB BLOOD ORDERABLES Final R esult Performing Organization Address City/[facility]/[place] [address], [place] [address] * (ABNORMAL) Calcium, Ionized (04/10/2025 12:06 AM EDT) [facility] Calcium, Ionized 1.11(L) 1.17 - 1.33 mmol/L 04/10/2025 1:08 AM EDT [facility] Blood Blood specimen / Unknown 04/10/2025 12:06 AM EDT 04/10/2025 1:03 AM EDT Luda Houser BABYSITTER LAB BLOOD ORDERABLES Final [facility] Performing Organization Address City/[facility]/[place] [address], [place] [address] * (ABNORMAL) COMPLETE BLOOD COUNT, WITHOUT DIFFERENTIAL (04/10/2025 12:06 AM EDT) [facility] White Blood Cell Count 30.3(HH) 4.0 - 11.0 Thou/uL 04/10/2025 1:40 AM EDT [facility] Comment:Results verified by smear review. Platelet Count 412 150 - 450 Thou/uL 04/10/2025 1:40 AM EDT [facility] Hemoglobin 7.2(L) 11.7 - 15.7 g/dL 04/10/2025 1:40 AM [facility] Hematocrit 21.7(L) 35.0 - 47.0 % 04/10/2025 1:40 AM EDT [facility] Red Blood Cell Count 2.73(L) 4.00 - 5.40 Mil/uL 04/10/2025 1:40 AM EDT [facility] MCV 80 80 - 100 fL 04/10/2025 1:40 AM EDT [facility] MCH 26.4 26.0 - 34.0 pg 04/10/2025 1:40 AM EDT [facility] MCHC 33.2 30.0 - 36.0 g/dL 04/10/2025 1:40 AM EDT [facility] RDW 15.9(H) 11.5 - 14.5 % 04/10/2025 1:40 AM EDT [facility] MPV 9.7 7.5 - 12.5 fL 04/10/2025 1:40 AM EDT [facility] nRBC 0.3(H) 0.0 - 0.1 /100 WBC 04/10/2025 1:40 AM EDT [facility] nRBC, Absolute 0.08(H) 0.00 - 0.02 Thou/uL 04/10/2025 1:40 AM EDT [facility] Blood Blood specimen / Unknown 04/10/2025 12:06 AM EDT 04/10/2025 1:03 AM EDT us Luda Houser APRN LAB BLOOD ORDERABLES Final R esult Performing Organization Address [facility] [place] [address], [place] [address] * Hemoglobin A1c with Estimated Average Glucose (Routine) (04/10/2025 12:06 AM EDT) Hemoglobin A1C 5.3 <5.7 % 04/10/2025 2:13 AM EDT [facility] Comment: A1c% Interpretation 5.7 - 6.0 Increase risk of diabetes 6.1 - 6.4 Higher risk of diabetes > or = 6.5 Consistent with diabetes Diabetes Care, 33(Supp 1):S1-S61, 2010 Estimated Average Glucose 105 mg/dL 04/10/2025 2:13 AM EDT [facility] Blood Blood specimen / Unknown 04/10/2025 12:06 AM EDT 04/10/2025 1:03 AM EDT us Sophia Yarbrough MD LAB BLOOD ORDERAB[place] [address], [place] [address] * Transfuse RBC's:Transfusion Indications: Hemoglobin less than 7 gm/dl or HCT less than 21%; Transfusion duration per unit (hrs): 1 (04/09/2025 10:25 PM EDT) Sophia Yarbrough MD BLOOD TRANSFUSION ORDE BENNETT Final Result * Transfuse RBC's:Transfusion Indications: Hemoglobin less than 7 gm/dl or HCT less than 21%; Transfusion duration per unit (hrs): 1 (04/09/2025 10:25 PM EDT) Sophia Yarbrough MD BLOOD TRANSFUSION ORDE BENNETT Final Result * CREATINE KINASE (CK) (04/09/2025 9:29 PM EDT) Creatine Kinase (CK) 123 24 - 173 U/L 04/09/2025 10:31 PM EDT [facility] Blood Blood specimen / Unknown 04/09/2025 9:29 PM EDT 04/09/2025 10:07 PM EDT Ani Brown BABYSITTER LAB BLOOD ORDERABLES Fin al Result Performing Organization Address [facility] [place] [address], [place] [address] * (ABNORMAL) POCT Glucose, Fingerstick (04/09/2025 8:05 PM EDT) POC Glucose 111(H) 65 - 99 mg/dL 04/09/2025 8:05 PM EDT Blood specimen / Unknown 04/09/2025 8:05 PM EDT 04/09/2025 8:06 PM EDT Kenton Medina MD POINT OF CARE TEST ORDERABLES Fi nal Result HOSPITAL LAB See Below * Prepare RBC's:Prepare in: Units; Number of Units: 1; Transfusion Indications: Hemoglobin less than 7 gm/dl or HCT less than 21% (04/09/2025 6:11 PM EDT) Pathologist [facility] Units Ordered 1 04/09/2025 6:12 PM EDT [facility] 04/09/2025 6:11 PM EDT 04/10/2025 3:52 AM EDT Sophia Yarbrough MD BLOOD BANK PRODUCT ORD ERABLES Final Result Performing Organization Address [facility]/[place] [address], [place] [address] * (ABNORMAL) POCT Glucose, Fingerstick (04/09/2025 5:20 PM EDT) Pathologist [facility] POC Glucose 145(H) 65 - 99 mg/dL 04/09/2025 8:05 PM EDT Blood specimen / Unknown 04/09/2025 5:20 PM EDT 04/09/2025 8:05 PM EDT Kenton Medina MD POINT OF CARE TEST ORDERABLES Fi nal Result [facility]OSPITAL LAB See Below * (ABNORMAL) Thromboelastograph (TEG) (04/09/2025 5:20 PM EDT) Reaction Time 3.3(L) 5 - 10 minutes 04/09/2025 7:49 PM EDT [facility] Reaction Time,Heparinized 3.6(L) 5 - 10 minutes 04/09/2025 7:49 PM EDT [facility] Fibrin Function 1.0 1 - 3 minutes 04/09/2025 7:49 PM EDT [facility] Fibrin Function,Heparin ized 0.9(L) 1 - 3 minutes 04/09/2025 7:49 PM EDT [facility] Angle 76.8(H) 53 - 72 degrees 04/09/2025 7:49 PM EDT [facility] Angle, Heparinized 75.8(H) 53 - 72 degrees 04/09/2025 7:49 PM EDT [facility] Max Amplitude 69.6 50 - 70 mm 04/09/2025 7:49 PM EDT [facility] Max Amplitude,Hepari nized 65.1 50 - 70 mm 04/09/2025 7:49 PM EDT [facility] %Lysis 30 min 0.0 0 - 8 % 04/09/2025 7:49 PM EDT [facility] %Lysis 30 min,Heparinized 1.4 0 - 8 % 04/09/2025 7:49 PM EDT [facility] Anticoagulant SUB Q UNFRACTIONATED HEPARIN 04/09/2025 5:21 PM EDT [facility] Blood Blood specimen / Unknown 04/09/2025 5:20 PM EDT 04/09/2025 5:41 PM EDT Sophia Yarbrough MD LAB BLOOD ORDERABLES F inal Result Performing Organization Address City/[facility]/[place] [address], [place] [address] * (ABNORMAL) Phosphorus (04/09/2025 5:20 PM EDT) Phosphorus 5.2(H) 2.7 - 4.5 mg/dL 04/09/2025 6:26 PM EDT [facility] Blood Blood specimen / Unknown 04/09/2025 5:20 PM EDT 04/09/2025 5:55 PM EDT Sophia Yarbrough MD LAB BLOOD ORDERAB[place] [address], [place] [address] * Magnesium (04/09/2025 5:20 PM EDT) Magnesium 1.7 1.6 - 2.7 mg/dL 04/09/2025 6:26 PM EDT [facility] Blood Blood specimen / Unknown 04/09/2025 5:20 PM EDT 04/09/2025 5:55 PM EDT Sophia Yarbrough MD LAB BLOOD ORDERABLES F inal Result [address] [address], [address] [address] * (ABNORMAL) Basic Metabolic Panel (04/09/2025 5:20 PM EDT) Glucose 126(H) 65 - 99 mg/dL 04/09/2025 6:26 PM T [facility] Comment:Fasting: <100 mg/dL, Non-Fasting: <200 mg/dL (ADA 2004) Blood Urea Nitrogen (BUN) 7(L) 8 - 21 mg/dL [facility] Creatinine 0.58 0.40 - 1.10 mg/dL 04/09/2025 6:26 PM [facility] eGFR >90 >59 04/09/2025 6:26 PM [facility] Comment:CKD-EPI (2020) in mL /min/1.73 sq meters. Sodium 136 136 - 145 mmol/L 04/09/2025 6:26 PM [facility] Potassium 3.9 3.4 - 5.3 mmol/L 04/09/2025 6:26 PM [facility] Chloride 104 98 - 107 mmol/L 04/09/2025 6:26 PM [facility] CO2 26 22 - 33 mmol/L 04/09/2025 6:26 PM [facility] Anion Gap 6(L) 7 - 17 04/09/2025 6:26 PM [facility] Calcium 8.7 8.7 - 10.5 mg/dL 04/09/2025 6:26 PM [facility] BUN/Creatinine Ratio 12 10.0 - 25.0 Ratio 04/09/2025 6:26 PM [facility] Blood Blood specimen / Unknown 04/09/2025 5:20 PM EDT 04/09/2025 5:55 PM EDT Sophia Yarbrough MD LAB BLOOD ORDERABLES F inal Result [facility] [address] [place] [address], [facility] [address] [place] [address] * (ABNORMAL) COMPLETE BLOOD COUNT, WITHOUT DIFFERENTIAL (04/09/2025 5:20 PM EDT) White Blood Cell Count 17.1(H) 4.0 - 11.0 Thou/uL 04/09/2025 6:10 PM [facility] Platelet Count 411 150 - 450 Thou/uL 04/09/2025 6:10 PM [facility] Hemoglobin 8.3(L) 11.7 - 15.7 g/dL 04/09/2025 6:10 PM [facility] Hematocrit 26.6(L) 35.0 - 47.0 % 04/09/2025 6:10 PM [facility] Red Blood Cell Count 3.23(L) 4.00 - 5.40 Mil/uL 04/09/2025 6:10 PM [facility] MCV 82 80 - 100 fL 04/09/2025 6:10 PM [facility] MCH 25.7(L) 26.0 - 34.0 pg 04/09/2025 6:10 PM [facility] MCHC 31.2 30.0 - 36.0 g/dL 04/09/2025 6:10 PM [facility] RDW 16.4(H) 11.5 - 14.5 % 04/09/2025 6:10 PM [facility] MPV 9.2 7.5 - 12.5 fL 04/09/2025 6:10 PM [facility] nRBC 0.2(H) 0.0 - 0.1 /100 WBC 04/09/2025 6:10 PM [facility] nRBC, Absolute 0.03(H) 0.00 - 0.02 Thou/uL 04/09/2025 6:10 PM [facility] Blood Blood specimen / Unknown 04/09/2025 5:20 PM EDT 04/09/2025 5:55 PM EDT us Sophia Yarbrough MD LAB BLOOD ORDERABLES F inal Result Performing Organization Address City/[facility]/ZIP Co de Phone Number [address] [address], [address] [address] * LACTIC ACID, PLASMA (04/09/2025 5:20 PM EDT) Lactic Acid 1.4 0.5 - 1.9 mmol/L 04/09/2025 6:25 PM EDT [facility] Blood Blood specimen / Unknown 04/09/2025 5:20 PM EDT 04/09/2025 5:53 PM EDT us Sophia Yarbrough MD LAB BLOOD ORDERABLES F inal Result Performing Organization Address [facility]/[place] [address], [address] [address] * Calcium, Ionized (04/09/2025 5:20 PM EDT) Calcium, Ionized 1.27 1.17 - 1.33 mmol/L 04/09/2025 6:06 PM EDT [facility] Blood Blood specimen / Unknown 04/09/2025 5:20 PM EDT 04/09/2025 5:55 PM EDT us Sophia Yarbrough MD LAB BLOOD ORDERABLES F inal Result Performing Organization Address City/[facility]/ZIP Co de Phone Number [address] [address], [address] [address] * (ABNORMAL) CREATINE KINASE (CK) (04/09/2025 5:20 PM EDT) Creatine Kinase (CK) 262(H) 24 - 173 U/L 04/09/2025 6:26 PM EDT [facility] Blood Blood specimen / Unknown 04/09/2025 5:20 PM EDT 04/09/2025 5:55 PM EDT Ani Bolaños Kevin BABYSITTER LAB BLOOD ORDERABLES Fin al Result Performing Organization Address City/[facility]/ZIP Co de Phone Number [address] [address], [address] [address] * Transfuse Fresh Frozen Plasma: (04/09/2025 4:36 PM EDT) Олег Vasquez DO BLOOD TRANSFUSION ORDERABLES Final Result * Transfuse RBC's: (04/09/2025 4:14 PM EDT) Nemesio Appiah MD BLOOD TRANSFUSION ORDERABLES Final Result * Transfuse RBC's: (04/09/2025 4:14 PM EDT) Result [facility] Nemesio Appiah MD BLOOD TRANSFUSION ORDERABLES Final Result * Prepare Fresh Frozen Plasma:Prepare in: Units; Number of Units: 1; Transfusion Indications: aPTT greater than upper limit of normal (04/09/2025 4:07 PM EDT) Units Ordered 1 04/09/2025 4:07 PM EDT [facility] Unit Number [id number] 04/09/2025 4:15 PM EDT [facility] Blood Component Type THAWED PLASMA 04/09/2025 4:15 PM EDT [facility] Unit Division 00 04/09/2025 4:15 PM EDT [facility] Unit Status ISSUED,FINAL 04/10/2025 12:32 AM EDT [facility] Transfusion Status OK TO TRANSFUSE 04/09/2025 4:15 PM EDT [facility] 04/09/2025 4:07 PM EDT 04/09/2025 4:14 PM EDT Олег Vasquez DO BLOOD BANK PRODUCT ORDERABLE S Final Result HOSPITAL LAB See Below [address] [address] * Prepare RBC's:Prepare in: Units; Number of Units: 2; Transfusion Indications: Hemoglobin greater than 7 gm/dl or HCT greater than 21% but Acute blood loss greater than 500 ml and symptoms not corrected by volume (04/09/2025 4:07 PM EDT) [facility] Units Ordered 2 04/09/2025 4:06 PM EDT [facility] 04/09/2025 4:07 PM EDT 04/09/2025 4:14 PM EDT Олег Vasquez DO BLOOD BANK PRODUCT ORDERABLE S Final Result Performing Organization Address City/[facility]/[place] [address], [place] [address] * (ABNORMAL) POCT Glucose, Fingerstick (04/09/2025 12:42 PM EDT) [facility] POC Glucose 136(H) 65 - 99 mg/dL 04/09/2025 12:43 PM EDT Blood specimen / Unknown 04/09/2025 12:42 PM EDT 04/09/2025 12:43 PM EDT Kenton Medina MD POINT OF CARE TEST ORDERABLES Fi nal Result HOSPITAL LAB See Below * (ABNORMAL) COMPLETE BLOOD COUNT, WITHOUT DIFFERENTIAL (04/09/2025 12:21 PM EDT) [facility] White Blood Cell Count 12.4(H) 4.0 - 11.0 Thou/uL 04/09/2025 1:17 PM EDT [facility] Platelet Count 447 150 - 450 Thou/uL 04/09/2025 1:17 PM EDT [facility] Hemoglobin 7.2(L) 11.7 - 15.7 g/dL 04/09/2025 1:17 PM EDT [facility] Hematocrit 22.4(L) 35.0 - 47.0 % 04/09/2025 1:17 PM EDT [facility] Red Blood Cell Count 2.85(L) 4.00 - 5.40 Mil/uL 04/09/2025 1:17 PM EDT [facility] MCV 79(L) 80 - 100 fL 04/09/2025 1:17 PM EDT [facility] MCH 25.3(L) 26.0 - 34.0 pg 04/09/2025 1:17 PM EDT [facility] MCHC 32.1 30.0 - 36.0 g/dL 04/09/2025 1:17 PM EDT [facility] RDW 16.7(H) 11.5 - 14.5 % 04/09/2025 1:17 PM EDT [facility] MPV 9.1 7.5 - 12.5 fL 04/09/2025 1:17 PM EDT [facility] nRBC 0.2(H) 0.0 - 0.1 /100 WBC 04/09/2025 1:17 PM T [facility] nRBC, Absolute 0.03(H) 0.00 - 0.02 Thou/uL 04/09/2025 1:17 PM EDT [facility] Blood Blood specimen / Unknown 04/09/2025 12:21 PM EDT 04/09/2025 12:53 PM EDT us Sophia Yarbrough MD LAB BLOOD ORDERABLES F inal Result Performing Organization Address [facility] Co de Phone Number [address] [address], [address] [address] * Phosphorus (04/09/2025 12:21 PM EDT) Phosphorus 3.7 2.7 - 4.5 mg/dL 04/09/2025 2:11 PM EDT [facility] Blood Blood specimen / Unknown 04/09/2025 12:21 PM EDT 04/09/2025 12:53 PM EDT us Sophia Yarbrough MD LAB BLOOD ORDERABLES F inal Result [address] [address], [address] [address] * Magnesium (04/09/2025 12:21 PM EDT) Magnesium 1.9 1.6 - 2.7 mg/dL 04/09/2025 2:11 PM EDT [facility] Blood Blood specimen / Unknown 04/09/2025 12:21 PM EDT 04/09/2025 12:53 PM EDT Sophia Yarbrough MD LAB BLOOD ORDERABLES F inal Result Performing Organization Address [facility]/[place] [address], [place] [address] * (ABNORMAL) Basic Metabolic Panel (04/09/2025 12:21 PM EDT) Glucose 105(H) 65 - 99 mg/dL 04/09/2025 2:11 PM EDT [facility] Comment:Fasting: <100 mg/dL, Non-Fasting: <200 mg/dL (ADA 2004) Blood Urea Nitrogen (BUN) 9 8 - 21 mg/dL 04/09/2025 2:11 PM EDT [facility] Creatinine 0.63 0.40 - 1.10 mg/dL 04/09/2025 2:11 PM EDT [facility] eGFR >90 >59 04/09/2025 2:11 PM EDT [facility] Comment:CKD-EPI (2020) in mL /min/1.73 sq meters. Sodium 145 136 - 145 mmol/L 04/09/2025 2:11 PM EDT [facility] Potassium 3.8 3.4 - 5.3 mmol/L 04/09/2025 2:11 PM EDT [facility] Chloride 105 98 - 107 mmol/L 04/09/2025 2:11 PM EDT [facility] CO2 29 22 - 33 mmol/L 04/09/2025 2:11 PM EDT [facility] Anion Gap 11 7 - 17 04/09/2025 2:11 PM EDT [facility] Calcium 7.5(L) 8.7 - 10.5 mg/dL 04/09/2025 2:11 PM EDT [facility] BUN/Creatinine Ratio 14 10.0 - 25.0 Ratio 04/09/2025 2:11 PM EDT [facility] Blood Blood specimen / Unknown 04/09/2025 12:21 PM EDT 04/09/2025 12:53 PM EDT Sophia Yarbrough MD LAB BLOOD ORDERABLES F inal Result Performing Organization Address City/[facility]/ZIP Co de Phone Number [address] [address], [address] [address] * POCT Glucose, Fingerstick (04/09/2025 11:45 AM EDT) POC Glucose 69 65 - 99 mg/dL 04/09/2025 11:46 AM EDT Blood specimen / Unknown 04/09/2025 11:45 AM EDT 04/09/2025 11:46 AM EDT Kenton Medina MD POINT OF CARE TEST ORDERABLES Fi nal Result HOSPITAL LAB See Below * Blood Culture (04/09/2025 11:10 AM EDT) Culture Sterile after 5 days 04/14/2025 7:08 AM EDT [facility] Blood Blood specimen / Unknown 04/09/2025 11:10 AM EDT 04/09/2025 12:05 PM EDT Comment:Blood Anisa Perez MD LAB BLOOD ORDERABLES Final Resu lt [facility] [address] [place] [address], * CREATINE KINASE (CK) (04/09/2025 10:25 AM EDT) Creatine Kinase (CK) 91 24 - 173 U/L 04/09/2025 12:23 PM EDT [facility] Blood Blood specimen / Unknown 04/09/2025 10:25 AM EDT 04/09/2025 11:10 AM EDT us Ani Brown BABYSITTER LAB BLOOD ORDERABLES Fin al Result [address] [address], [address] [address] * Type and Screen (04/09/2025 10:20 AM EDT) ABO/Rh A POSITIVE 04/09/2025 12:20 PM EDT [facility] Antibody Screen NEGATIVE 04/09/2025 12:20 PM EDT [facility] Specimen Expiration 04/12/2025 04/09/2025 12:20 PM EDT [facility] Blood Bank Comment Second Sample needed for Blood Transfusion 04/09/2025 12:20 PM EDT [facility] Unit Number [id number] 04/09/2025 2:44 PM EDT [facility] Blood Component Type LEUKOREDUCED RED CELLS 04/09/2025 2:44 PM EDT [facility] Unit Division 00 04/09/2025 2:44 PM EDT [facility] Unit Status ISSUED,FINAL 04/10/2025 12:32 AM EDT [facility] Transfusion Status OK TO TRANSFUSE 04/09/2025 2:44 PM EDT [facility] Crossmatch Result Electronically Compatible 04/09/2025 2:44 PM EDT [facility] Unit Number [id number] 04/09/2025 2:44 PM EDT [facility] Blood Component Type LEUKOREDUCED RED CELLS 04/09/2025 2:44 PM EDT [facility] Unit Division 00 04/09/2025 2:44 PM EDT [facility] Unit Status ISSUED,FINAL 04/10/2025 12:32 AM EDT [facility] Transfusion Status OK TO TRANSFUSE 04/09/2025 2:44 PM EDT [facility] Crossmatch Result Electronically Compatible 04/09/2025 2:44 PM EDT [facility] Unit Number [id number] 04/09/2025 4:17 PM EDT [facility] Blood Component Type LEUKOREDUCED RED CELLS 04/09/2025 4:17 PM EDT [facility] Unit Division 00 04/09/2025 4:17 PM EDT [facility] Unit Status ISSUED,FINAL 04/10/2025 12:32 AM EDT [facility] Transfusion Status OK TO TRANSFUSE 04/09/2025 4:17 PM EDT [facility] Crossmatch Result Electronically Compatible 04/09/2025 4:17 PM EDT [facility] Unit Number [id number] 04/09/2025 4:17 PM EDT [facility] Blood Component Type LEUKOREDUCED RED CELLS 04/09/2025 4:17 PM EDT [facility] Unit Division 00 04/09/2025 4:17 PM EDT [facility] Unit Status ISSUED,FINAL 04/11/2025 12:30 AM EDT [facility] Transfusion Status OK TO TRANSFUSE 04/09/2025 4:17 PM EDT [facility] Crossmatch Result Electronically Compatible 04/09/2025 4:17 PM EDT [facility] Unit Number [id number] 04/11/2025 1:43 AM EDT [facility] Blood Component Type LEUKOREDUCED RED CELLS 04/11/2025 1:43 AM EDT [facility] Unit Division 00 04/11/2025 1:43 AM EDT [facility] Unit Status ISSUED,FINAL 04/12/2025 12:17 AM EDT [facility] Transfusion Status OK TO TRANSFUSE 04/11/2025 1:43 AM EDT [facility] Crossmatch Result Electronically Compatible 04/11/2025 1:43 AM T [facility] Blood Blood specimen / Unknown 04/09/2025 10:20 AM EDT 04/09/2025 11:11 AM EDT Comment:Blood us Sophia Yarbrough MD BLOOD BANK TEST ORDERA BLES Final Result HOSPITAL LAB See Below [address] [address] * Prepare RBC's:Prepare in: Units; Number of Units: 2; Transfusion Indications: Hemoglobin less than 7 gm/dl or HCT less than 21% (04/09/2025 10:19 AM EDT) Units Ordered 2 04/09/2025 10:19 AM EDT [facility] 04/09/2025 10:1 9 AM EDT 04/09/2025 4:19 PM EDT Sophia Yarbrough MD BLOOD BANK PRODUCT ORD ERABLES Final Result Performing Organization Address [facility]/ZIP Co de Phone Number [address] [address], [address] [address] * POCT Glucose, Fingerstick (04/09/2025 7:59 AM EDT) POC Glucose 74 65 - 99 mg/dL 04/09/2025 8:20 AM EDT Blood specimen / Unknown 04/09/2025 7:59 AM EDT 04/09/2025 8:19 AM EDT Kenton Medina MD POINT OF CARE TEST ORDERABLES Fi nal Result [facility] LAB See Below * POCT Glucose, Fingerstick (04/09/2025 3:45 AM EDT) POC Glucose 78 65 - 99 mg/dL 04/09/2025 3:46 AM EDT Blood specimen / Unknown 04/09/2025 3:45 AM EDT 04/09/2025 3:46 AM EDT Kenton Medina MD POINT OF CARE TEST ORDERABLES Fi nal Result [facility]OSPITAL LAB See Below * CREATINE KINASE (CK) (04/09/2025 3:24 AM EDT) Creatine Kinase (CK) 97 24 - 173 U/L 04/09/2025 4:53 AM EDT [facility] Blood Blood specimen / Unknown 04/09/2025 3:24 AM EDT 04/09/2025 4:06 AM EDT Ani Brown BABYSITTER LAB BLOOD ORDERABLES Fin al Result Performing Organization Address [facility] Co de Phone Number [address] [address], [address] [address] * Magnesium (04/09/2025 3:24 AM EDT) Magnesium 2.1 1.6 - 2.7 mg/dL 04/09/2025 4:53 AM EDT [facility] Blood Blood specimen / Unknown 04/09/2025 3:24 AM EDT 04/09/2025 4:06 AM EDT Ani Brown BABYSITTER LAB BLOOD ORDERABLES Fin al Result Performing Organization Address [facility] Co de Phone Number [address] [address], [address] [address] * Phosphorus (04/09/2025 3:24 AM EDT) Phosphorus 3.7 2.7 - 4.5 mg/dL 04/09/2025 4:53 AM EDT [facility] Blood Blood specimen / Unknown 04/09/2025 3:24 AM EDT 04/09/2025 4:06 AM EDT Ani Brown BABYSITTER LAB BLOOD ORDERABLES Fin al Result Performing Organization Address [facility] Co de Phone Number [address] [address], [address] [address] * (ABNORMAL) COMPLETE BLOOD COUNT, WITHOUT DIFFERENTIAL (04/09/2025 3:24 AM EDT) White Blood Cell Count 12.3(H) 4.0 - 11.0 Thou/uL 04/09/2025 4:23 AM [facility] Platelet Count 418 150 - 450 Thou/uL 04/09/2025 4:23 AM [facility] Hemoglobin 7.0(L) 11.7 - 15.7 g/dL 04/09/2025 4:23 AM [facility] Hematocrit 21.7(L) 35.0 - 47.0 % 04/09/2025 4:23 AM [facility] Red Blood Cell Count 2.80(L) 4.00 - 5.40 Mil/uL 04/09/2025 4:23 AM [facility] MCV 78(L) 80 - 100 fL 04/09/2025 4:23 AM [facility] MCH 25.0(L) 26.0 - 34.0 pg 04/09/2025 4:23 AM [facility] MCHC 32.3 30.0 - 36.0 g/dL 04/09/2025 4:23 AM [facility] RDW 16.1(H) 11.5 - 14.5 % 04/09/2025 4:23 AM [facility] MPV 9.4 7.5 - 12.5 fL 04/09/2025 4:23 AM [facility] Blood Blood specimen / Unknown 04/09/2025 3:24 AM EDT 04/09/2025 4:06 AM EDT us nAi Brown BABYSITTER LAB BLOOD ORDERABLES Fin al Result [address] [address], [address] [address] * (ABNORMAL) Basic Metabolic Panel (04/09/2025 3:24 AM EDT) Glucose 77 65 - 99 mg/dL 04/09/2025 4:53 AM [facility] Comment:Fasting: <100 mg/dL, Non-Fasting: <200 mg/dL (ADA 2005) Blood Urea Nitrogen (BUN) 10 8 - 21 mg/dL 04/09/2025 4:53 AM T [facility] Creatinine 0.66 0.40 - 1.10 mg/dL 04/09/2025 4:53 AM [facility] eGFR >90 >59 04/09/2025 4:53 AM [facility] Comment:CKD-EPI (2020) in mL /min/1.73 sq meters. Sodium 141 136 - 145 mmol/L 04/09/2025 4:53 AM EDT [facility] Potassium 3.4 3.4 - 5.3 mmol/L 04/09/2025 4:53 AM T [facility] Chloride 105 98 - 107 mmol/L 04/09/2025 4:53 AM T [facility] CO2 29 22 - 33 mmol/L 04/09/2025 4:53 AM [facility] Anion Gap 7 7 - 17 04/09/2025 4:53 AM [facility] Calcium 7.4(L) 8.7 - 10.5 mg/dL 04/09/2025 4:53 AM [facility] BUN/Creatinine Ratio 15 10.0 - 25.0 Ratio 04/09/2025 4:53 AM [facility] Blood Blood specimen / Unknown 04/09/2025 3:24 AM EDT 04/09/2025 4:06 AM EDT us Ani Brown BABYSITTER LAB BLOOD ORDERABLES Fin al Result Performing Organization Address [facility] Co de Phone Number [address] [address], [address] [address] * Blood Culture (04/09/2025 1:31 AM EDT) Culture Sterile after 5 days 04/14/2025 7:08 AM EDT [facility] Blood Blood specimen / Unknown 04/09/2025 1:31 AM EDT 04/09/2025 2:29 AM EDT Comment:Blood us Anisa Perez MD LAB BLOOD ORDERABLES Final Resu lt [facility] [address] [place] [address], [place] * (ABNORMAL) POCT Glucose, Fingerstick (04/09/2025 12:36 AM EDT) POC Glucose 100(H) 65 - 99 mg/dL 04/09/2025 12:36 AM EDT Blood specimen / Unknown 04/09/2025 12:36 AM EDT 04/09/2025 12:37 AM EDT us Kenton Medina MD POINT OF CARE TEST ORDERABLES Fi nal Result HOSPITAL LAB See Below * CT Abdomen+pelvis w/contrast (04/08/2025 11:50 PM EDT) Anatomical Region Laterality Modality Abdomen, Pelvis Computed Tomogra phy 04/08/2025 11:2 6 PM EDT Addenda Addendum by Reji Cook MD on 04/09/2025 3:41 PM EDT ADDENDUM #1 This addendum is to add CT left upper extremity portion which was also scanned. Status post debridement in the left upper anterior extremity, with a defect measuring 1.4 cm, with likely packing material. No underlying organized collection residual subcutaneous edema involving the mid to lower left upper extremity. Impressions 04/09/2025 1:16 PM EDT 1. Postsurgical changes in the right anterior chest wall and right upper extremity, with skin wound and locules of air along the visualized right upper extremity. No underlying organized collection is identified. 2. Similar right subpectoral fluid compared to prior study from 04/07/2025. Underlying intramuscular abscess cannot be excluded. 3. Small right and trace left pleural effusion. Bilateral lower lobe atelectasis/consolidations. 4. Small volume free fluid in the abdomen and pelvis. 5. Mild diffuse abdominal wall edema, especially along the right lateral abdominal wall. Narrative 04/09/2025 1:16 PM EDT EXAMINATION: CT CHEST WITH CONTRAST CT RIGHT UPPER EXTREMITY WITH CONTRAST CLINICAL INFORMATION: s/p RUE/chest soft tissue debridement of abscess/soft tissue infection. COMPARISON: None available. TECHNIQUE: Multidetector volumetric imaging was performed from the thoracic inlet through the pubic symphysis following the administration of: Oral contrast: No Intravenous contrast: 89 mL Omnipaque 350 No contrast reaction reported Sagittal and coronal reformatted images were obtained on the technologist's workstation. This CT examination was performed using dose optimization techniques as appropriate, variously including the following: *Automated exposure control *Adjustment of mA and/or kV according to patient size (this includes techniques or standardized protocols for targeted exams where dose is matched to indication/reason for exam; i.e. extremities or head) *Use of iterative reconstruction technique Total exam dose-length product 408 mGy-cm. FINDINGS: CHEST: LUNG: Central airways are patent. Endotracheal tube tip is 2.8 cm above the level of tico. Bilateral lower lobe atelectasis/consolidations. Rest of the lungs are clear. PLEURA: Small right and trace left pleural effusion. MEDIASTINUM: Heart size is within normal limits. Trace pericardial effusion. No mediastinal or hilar lymphadenopathy. Thyroid gland is unremarkable. VASCULAR: No thoracic aortic aneurysm or dissection. Central pulmonary arteries opacify normally. Right IJ central venous catheter, with the tip at the cavoatrial junction. CHEST WALL/AXILLA: Right anterior chest wall subcutaneous fluid and locules of air. Additional locules of air and fluid in the subpectoral space on the need the right pectoralis major muscle. Locules of air in the right lateral subpectoral region, extending into the upper extremity, likely from recent debridement. Enlarged right axillary lymph nodes, likely reactive, for example measuring 1.6 cm (303:157). No organized collection is identified. The degree of subpectoral analysis edema and fluid is similar to prior study from 04/07/2025. ABDOMEN/PELVIS: LIVER, GALLBLADDER, AND BILIARY TREE: The liver is normal in size, shape, and attenuation. No focal hepatic lesion or biliary ductal dilatation is present. The gallbladder is unremarkable with no evidence of radiopaque gallstones, gallbladder wall thickening, or obvious pericholecystic inflammatory changes. PANCREAS: Normal; no mass or surrounding fluid. SPLEEN: Normal size. No focal lesion. ADRENAL GLANDS: Normal; no mass. KIDNEYS AND URETERS: The kidneys are normal in size, shape, and attenuation. No hydronephrosis, hydroureter, or calculi. GASTROINTESTINAL TRACT: Enteric tube tip is within the stomach. Moderate colonic stool burden. No focal wall thickening or abnormal distention. Appendix is not visualized. PERITONEUM/RETROPERITONEUM: Small volume free fluid. No free air. ABDOMINAL WALL: No significant hernia is appreciated. Mild diffuse abdominal wall edema, especially along the right lateral abdominal wall. LYMPHOVASCULAR STRUCTURES: No lymphadenopathy. The aorta is unremarkable. BLADDER: Decompressed with contrast and Lynch catheter, limiting evaluation. PELVIC VISCERA: Unremarkable. OSSEOUS STRUCTURES: No acute or suspicious osseous abnormality. CT right upper extremity: Posterior widening changes, with skin wound and locules of air along the visualized right upper extremity. No underlying organized collection is identified. Diffuse residual subcutaneous edema. Right brachial vasculature ends in close proximity to the debridement site however appears to be patent where visualized. Procedure Note Reji Cook MD - 04/10/2025 EXAMINATION: CT CHEST WITH CONTRAST CT RIGHT UPPER EXTREMITY WITH CONTRAST CLINICAL INFORMATION: s/p RUE/chest soft tissue debridement of abscess/soft tissue infection. COMPARISON: None available. TECHNIQUE: Multidetector volumetric imaging was performed from the thoracic inlet through the pubic symphysis following the administration of: Oral contrast: No Intravenous contrast: 89 mL Omnipaque 350 No contrast reaction reported Sagittal and coronal reformatted images were obtained on the technologist's workstation. This CT examination was performed using dose optimization techniques as appropriate, variously including the following: *Automated exposure control *Adjustment of mA and/or kV according to patient size (this includes techniques or standardized protocols for targeted exams where dose is matched to indication/reason for exam; i.e. extremities or head) *Use of iterative reconstruction technique Total exam dose-length product 408 mGy-cm. FINDINGS: CHEST: LUNG: Central airways are patent. Endotracheal tube tip is 2.8 cm above the level of tico. Bilateral lower lobe atelectasis/consolidations. Rest of the lungs are clear. PLEURA: Small right and trace left pleural effusion. MEDIASTINUM: Heart size is within normal limits. Trace pericardial effusion. No mediastinal or hilar lymphadenopathy. Thyroid gland is unremarkable. VASCULAR: No thoracic aortic aneurysm or dissection. Central pulmonary arteries opacify normally. Right IJ central venous catheter, with the tip at the cavoatrial junction. CHEST WALL/AXILLA: Right anterior chest wall subcutaneous fluid and locules of air. Additional locules of air and fluid in the subpectoral space on the need the right pectoralis major muscle. Locules of air in the right lateral subpectoral region, extending into the upper extremity, likely from recent debridement. Enlarged right axillary lymph nodes, likely reactive, for example measuring 1.6 cm (303:157). No organized collection is identified. The degree of subpectoral analysis edema and fluid is similar to prior study from 04/07/2025. ABDOMEN/PELVIS: LIVER, GALLBLADDER, AND BILIARY TREE: The liver is normal in size, shape, and attenuation. No focal hepatic lesion or biliary ductal dilatation is present. The gallbladder is unremarkable with no evidence of radiopaque gallstones, gallbladder wall thickening, or obvious pericholecystic inflammatory changes. PANCREAS: Normal; no mass or surrounding fluid. SPLEEN: Normal size. No focal lesion. ADRENAL GLANDS: Normal; no mass. KIDNEYS AND URETERS: The kidneys are normal in size, shape, and attenuation. No hydronephrosis, hydroureter, or calculi. GASTROINTESTINAL TRACT: Enteric tube tip is within the stomach. Moderate colonic stool burden. No focal wall thickening or abnormal distention. Appendix is not visualized. PERITONEUM/RETROPERITONEUM: Small volume free fluid. No free air. ABDOMINAL WALL: No significant hernia is appreciated. Mild diffuse abdominal wall edema, especially along the right lateral abdominal wall. LYMPHOVASCULAR STRUCTURES: No lymphadenopathy. The aorta is unremarkable. BLADDER: Decompressed with contrast and Lynch catheter, limiting evaluation. PELVIC VISCERA: Unremarkable. OSSEOUS STRUCTURES: No acute or suspicious osseous abnormality. CT right upper extremity: Posterior widening changes, with skin wound and locules of air along the visualized right upper extremity. No underlying organized collection is identified. Diffuse residual subcutaneous edema. Right brachial vasculature ends in close proximity to the debridement site however appears to be patent where visualized. IMPRESSION: 1. Postsurgical changes in the right anterior chest wall and right upper extremity, with skin wound and locules of air along the visualized right upper extremity. No underlying organized collection is identified. 2. Similar right subpectoral fluid compared to prior study from 04/07/2025. Underlying intramuscular abscess cannot be excluded. 3. Small right and trace left pleural effusion. Bilateral lower lobe atelectasis/consolidations. 4. Small volume free fluid in the abdomen and pelvis. 5. Mild diffuse abdominal wall edema, especially along the right lateral abdominal wall. Ani Brown BABYSITTER IMG CT ORDERABLES Edited Result - Final * CT Upper extremity with contrast-Bilateral (04/08/2025 11:50 PM EDT) Anatomical Region Laterality Modality CTA Body Bilateral Computed Tomogra phy 04/08/2025 11:2 6 PM EDT Addenda Addendum by Reji Cook MD on 04/09/2025 3:41 PM EDT ADDENDUM #1 This addendum is to add CT left upper extremity portion which was also scanned. Status post debridement in the left upper anterior extremity, with a defect measuring 1.4 cm, with likely packing material. No underlying organized collection residual subcutaneous edema involving the mid to lower left upper extremity. Addendum by Reji Cook MD on 04/09/2025 3:38 PM EDT ADDENDUM #1 This addendum is to add CT left upper extremity portion which was also scanned. Status post debridement in the left upper anterior extremity, with a defect measuring 1.4 cm, with likely packing material. No underlying organized collection residual subcutaneous edema involving the mid to lower left upper extremity. Impressions 04/09/2025 1:16 PM EDT 1. Postsurgical changes in the right anterior chest wall and right upper extremity, with skin wound and locules of air along the visualized right upper extremity. No underlying organized collection is identified. 2. Similar right subpectoral fluid compared to prior study from 04/07/2025. Underlying intramuscular abscess cannot be excluded. 3. Small right and trace left pleural effusion. Bilateral lower lobe atelectasis/consolidations. 4. Small volume free fluid in the abdomen and pelvis. 5. Mild diffuse abdominal wall edema, especially along the right lateral abdominal wall. Narrative 04/09/2025 1:16 PM EDT EXAMINATION: CT CHEST WITH CONTRAST CT RIGHT UPPER EXTREMITY WITH CONTRAST CLINICAL INFORMATION: s/p RUE/chest soft tissue debridement of abscess/soft tissue infection. COMPARISON: None available. TECHNIQUE: Multidetector volumetric imaging was performed from the thoracic inlet through the pubic symphysis following the administration of: Oral contrast: No Intravenous contrast: 89 mL Omnipaque 350 No contrast reaction reported Sagittal and coronal reformatted images were obtained on the technologist's workstation. This CT examination was performed using dose optimization techniques as appropriate, variously including the following: *Automated exposure control *Adjustment of mA and/or kV according to patient size (this includes techniques or standardized protocols for targeted exams where dose is matched to indication/reason for exam; i.e. extremities or head) *Use of iterative reconstruction technique Total exam dose-length product 408 mGy-cm. FINDINGS: CHEST: LUNG: Central airways are patent. Endotracheal tube tip is 2.8 cm above the level of tico. Bilateral lower lobe atelectasis/consolidations. Rest of the lungs are clear. PLEURA: Small right and trace left pleural effusion. MEDIASTINUM: Heart size is within normal limits. Trace pericardial effusion. No mediastinal or hilar lymphadenopathy. Thyroid gland is unremarkable. VASCULAR: No thoracic aortic aneurysm or dissection. Central pulmonary arteries opacify normally. Right IJ central venous catheter, with the tip at the cavoatrial junction. CHEST WALL/AXILLA: Right anterior chest wall subcutaneous fluid and locules of air. Additional locules of air and fluid in the subpectoral space on the need the right pectoralis major muscle. Locules of air in the right lateral subpectoral region, extending into the upper extremity, likely from recent debridement. Enlarged right axillary lymph nodes, likely reactive, for example measuring 1.6 cm (303:157). No organized collection is identified. The degree of subpectoral analysis edema and fluid is similar to prior study from 04/07/2025. ABDOMEN/PELVIS: LIVER, GALLBLADDER, AND BILIARY TREE: The liver is normal in size, shape, and attenuation. No focal hepatic lesion or biliary ductal dilatation is present. The gallbladder is unremarkable with no evidence of radiopaque gallstones, gallbladder wall thickening, or obvious pericholecystic inflammatory changes. PANCREAS: Normal; no mass or surrounding fluid. SPLEEN: Normal size. No focal lesion. ADRENAL GLANDS: Normal; no mass. KIDNEYS AND URETERS: The kidneys are normal in size, shape, and attenuation. No hydronephrosis, hydroureter, or calculi. GASTROINTESTINAL TRACT: Enteric tube tip is within the stomach. Moderate colonic stool burden. No focal wall thickening or abnormal distention. Appendix is not visualized. PERITONEUM/RETROPERITONEUM: Small volume free fluid. No free air. ABDOMINAL WALL: No significant hernia is appreciated. Mild diffuse abdominal wall edema, especially along the right lateral abdominal wall. LYMPHOVASCULAR STRUCTURES: No lymphadenopathy. The aorta is unremarkable. BLADDER: Decompressed with contrast and Lynch catheter, limiting evaluation. PELVIC VISCERA: Unremarkable. OSSEOUS STRUCTURES: No acute or suspicious osseous abnormality. CT right upper extremity: Posterior widening changes, with skin wound and locules of air along the visualized right upper extremity. No underlying organized collection is identified. Diffuse residual subcutaneous edema. Right brachial vasculature ends in close proximity to the debridement site however appears to be patent where visualized. Procedure Note Reji Cook MD - 04/09/2025 EXAMINATION: CT CHEST WITH CONTRAST CT RIGHT UPPER EXTREMITY WITH CONTRAST CLINICAL INFORMATION: s/p RUE/chest soft tissue debridement of abscess/soft tissue infection. COMPARISON: None available. TECHNIQUE: Multidetector volumetric imaging was performed from the thoracic inlet through the pubic symphysis following the administration of: Oral contrast: No Intravenous contrast: 89 mL Omnipaque 350 No contrast reaction reported Sagittal and coronal reformatted images were obtained on the technologist's workstation. This CT examination was performed using dose optimization techniques as appropriate, variously including the following: *Automated exposure control *Adjustment of mA and/or kV according to patient size (this includes techniques or standardized protocols for targeted exams where dose is matched to indication/reason for exam; i.e. extremities or head) *Use of iterative reconstruction technique Total exam dose-length product 408 mGy-cm. FINDINGS: CHEST: LUNG: Central airways are patent. Endotracheal tube tip is 2.8 cm above the level of tico. Bilateral lower lobe atelectasis/consolidations. Rest of the lungs are clear. PLEURA: Small right and trace left pleural effusion. MEDIASTINUM: Heart size is within normal limits. Trace pericardial effusion. No mediastinal or hilar lymphadenopathy. Thyroid gland is unremarkable. VASCULAR: No thoracic aortic aneurysm or dissection. Central pulmonary arteries opacify normally. Right IJ central venous catheter, with the tip at the cavoatrial junction. CHEST WALL/AXILLA: Right anterior chest wall subcutaneous fluid and locules of air. Additional locules of air and fluid in the subpectoral space on the need the right pectoralis major muscle. Locules of air in the right lateral subpectoral region, extending into the upper extremity, likely from recent debridement. Enlarged right axillary lymph nodes, likely reactive, for example measuring 1.6 cm (303:157). No organized collection is identified. The degree of subpectoral analysis edema and fluid is similar to prior study from 04/07/2025. ABDOMEN/PELVIS: LIVER, GALLBLADDER, AND BILIARY TREE: The liver is normal in size, shape, and attenuation. No focal hepatic lesion or biliary ductal dilatation is present. The gallbladder is unremarkable with no evidence of radiopaque gallstones, gallbladder wall thickening, or obvious pericholecystic inflammatory changes. PANCREAS: Normal; no mass or surrounding fluid. SPLEEN: Normal size. No focal lesion. ADRENAL GLANDS: Normal; no mass. KIDNEYS AND URETERS: The kidneys are normal in size, shape, and attenuation. No hydronephrosis, hydroureter, or calculi. GASTROINTESTINAL TRACT: Enteric tube tip is within the stomach. Moderate colonic stool burden. No focal wall thickening or abnormal distention. Appendix is not visualized. PERITONEUM/RETROPERITONEUM: Small volume free fluid. No free air. ABDOMINAL WALL: No significant hernia is appreciated. Mild diffuse abdominal wall edema, especially along the right lateral abdominal wall. LYMPHOVASCULAR STRUCTURES: No lymphadenopathy. The aorta is unremarkable. BLADDER: Decompressed with contrast and Lynch catheter, limiting evaluation. PELVIC VISCERA: Unremarkable. OSSEOUS STRUCTURES: No acute or suspicious osseous abnormality. CT right upper extremity: Posterior widening changes, with skin wound and locules of air along the visualized right upper extremity. No underlying organized collection is identified. Diffuse residual subcutaneous edema. Right brachial vasculature ends in close proximity to the debridement site however appears to be patent where visualized. IMPRESSION: 1. Postsurgical changes in the right anterior chest wall and right upper extremity, with skin wound and locules of air along the visualized right upper extremity. No underlying organized collection is identified. 2. Similar right subpectoral fluid compared to prior study from 04/07/2025. Underlying intramuscular abscess cannot be excluded. 3. Small right and trace left pleural effusion. Bilateral lower lobe atelectasis/consolidations. 4. Small volume free fluid in the abdomen and pelvis. 5. Mild diffuse abdominal wall edema, especially along the right lateral abdominal wall. Ani Brown BABYSITTER IMG CT ORDERABLES Edited Result - Final * CT Soft tissue neck w/contrast (04/08/2025 11:50 PM EDT) Anatomical Region Laterality Modality Neck Computed Tomogra phy 04/08/2025 11:2 6 PM EDT Impressions 04/09/2025 10:58 AM EDT No evidence of extension of soft tissue infection or abscesses into the neck. Please refer to separately dictated CT chest and upper extremity for details regarding changes status post debridement of right chest wall abscess/soft tissue infection. Narrative 04/09/2025 10:58 AM EDT EXAMINATION: CT NECK WITH CONTRAST. INDICATION: 34 years old, Female s/p RUE/chest soft tissue debridement of abscess/soft tissue infection TECHNIQUE: Following the intravenous administration of 50 mL of intravenous contrast, helical imaging was performed in the axial plane with generation of coronal and sagittal reformatted images. This CT examination was performed using dose optimization techniques as appropriate, variously including the following: *Automated exposure control *Adjustment of mA and/or kV according to patient size (this includes techniques or standardized protocols for targeted exams where dose is matched to indication/reason for exam; i.e. extremities or head) *Use of iterative reconstruction technique DLP: 593 mGy-cm COMPARISON: Right upper extremity CT 04/07/2025 FINDINGS: Please refer to separately dictated CT chest and upper extremity for details regarding changes status post debridement of right chest wall abscess/soft tissue infection. Prominent bilateral axillary lymph nodes. There is no evidence of a mass or significantly enlarged or abnormal lymph nodes in the neck. The esophageal temperature probe is coiled in the nasopharynx and courses down the esophagus. The oropharynx, nasopharynx, hypopharynx and the laryngeal structures are unremarkable. The parotid, submandibular and thyroid glands are unremarkable. The great vessels of the neck are unremarkable. Right IJ central venous catheter tip beyond the [id number]. The visualized orbits and paranasal air sinuses are unremarkable. The visualized vertebral bodies do not show any obvious bony destruction. The visualized portion of the brain is unremarkable. Please refer to separately dictated CT chest for intrathoracic findings. Procedure Note Flora Naik MD - 04/09/2025 EXAMINATION: CT NECK WITH CONTRAST. INDICATION: 34 years old, Female s/p RUE/chest soft tissue debridement of abscess/soft tissue infection TECHNIQUE: Following the intravenous administration of 50 mL of intravenous contrast, helical imaging was performed in the axial plane with generation of coronal and sagittal reformatted images. This CT examination was performed using dose optimization techniques as appropriate, variously including the following: *Automated exposure control *Adjustment of mA and/or kV according to patient size (this includes techniques or standardized protocols for targeted exams where dose is matched to indication/reason for exam; i.e. extremities or head) *Use of iterative reconstruction technique DLP: 593 mGy-cm COMPARISON: Right upper extremity CT 04/07/2025 FINDINGS: Please refer to separately dictated CT chest and upper extremity for details regarding changes status post debridement of right chest wall abscess/soft tissue infection. Prominent bilateral axillary lymph nodes. There is no evidence of a mass or significantly enlarged or abnormal lymph nodes in the neck. The esophageal temperature probe is coiled in the nasopharynx and courses down the esophagus. The oropharynx, nasopharynx, hypopharynx and the laryngeal structures are unremarkable. The parotid, submandibular and thyroid glands are unremarkable. The great vessels of the neck are unremarkable. Right IJ central venous catheter tip beyond the [id number]. The visualized orbits and paranasal air sinuses are unremarkable. The visualized vertebral bodies do not show any obvious bony destruction. The visualized portion of the brain is unremarkable. Please refer to separately dictated CT chest for intrathoracic findings. IMPRESSION: No evidence of extension of soft tissue infection or abscesses into the neck. Please refer to separately dictated CT chest and upper extremity for details regarding changes status post debridement of right chest wall abscess/soft tissue infection. Ani Brown APRN IMG CT ORDERABLES Final Result * CT Thorax w/contrast (04/08/2025 11:50 PM EDT) Anatomical Region Laterality Modality Chest Computed Tomogra phy 04/08/2025 11:2 6 PM EDT Addenda Addendum by Reji Cook MD on 04/09/2025 3:41 PM EDT ADDENDUM #1 This addendum is to add CT left upper extremity portion which was also scanned. Status post debridement in the left upper anterior extremity, with a defect measuring 1.4 cm, with likely packing material. No underlying organized collection residual subcutaneous edema involving the mid to lower left upper extremity. Addendum by Reji Cook MD on 04/09/2025 3:38 PM EDT ADDENDUM #1 This addendum is to add CT left upper extremity portion which was also scanned. Status post debridement in the left upper anterior extremity, with a defect measuring 1.4 cm, with likely packing material. No underlying organized collection residual subcutaneous edema involving the mid to lower left upper extremity. Impressions 04/09/2025 1:16 PM EDT 1. Postsurgical changes in the right anterior chest wall and right upper extremity, with skin wound and locules of air along the visualized right upper extremity. No underlying organized collection is identified. 2. Similar right subpectoral fluid compared to prior study from 04/07/2025. Underlying intramuscular abscess cannot be excluded. 3. Small right and trace left pleural effusion. Bilateral lower lobe atelectasis/consolidations. 4. Small volume free fluid in the abdomen and pelvis. 5. Mild diffuse abdominal wall edema, especially along the right lateral abdominal wall. Narrative 04/09/2025 1:16 PM EDT EXAMINATION: CT CHEST WITH CONTRAST CT RIGHT UPPER EXTREMITY WITH CONTRAST CLINICAL INFORMATION: s/p RUE/chest soft tissue debridement of abscess/soft tissue infection. COMPARISON: None available. TECHNIQUE: Multidetector volumetric imaging was performed from the thoracic inlet through the pubic symphysis following the administration of: Oral contrast: No Intravenous contrast: 89 mL Omnipaque 350 No contrast reaction reported Sagittal and coronal reformatted images were obtained on the technologist's workstation. This CT examination was performed using dose optimization techniques as appropriate, variously including the following: *Automated exposure control *Adjustment of mA and/or kV according to patient size (this includes techniques or standardized protocols for targeted exams where dose is matched to indication/reason for exam; i.e. extremities or head) *Use of iterative reconstruction technique Total exam dose-length product 408 mGy-cm. FINDINGS: CHEST: LUNG: Central airways are patent. Endotracheal tube tip is 2.8 cm above the level of tico. Bilateral lower lobe atelectasis/consolidations. Rest of the lungs are clear. PLEURA: Small right and trace left pleural effusion. MEDIASTINUM: Heart size is within normal limits. Trace pericardial effusion. No mediastinal or hilar lymphadenopathy. Thyroid gland is unremarkable. VASCULAR: No thoracic aortic aneurysm or dissection. Central pulmonary arteries opacify normally. Right IJ central venous catheter, with the tip at the cavoatrial junction. CHEST WALL/AXILLA: Right anterior chest wall subcutaneous fluid and locules of air. Additional locules of air and fluid in the subpectoral space on the need the right pectoralis major muscle. Locules of air in the right lateral subpectoral region, extending into the upper extremity, likely from recent debridement. Enlarged right axillary lymph nodes, likely reactive, for example measuring 1.6 cm (303:157). No organized collection is identified. The degree of subpectoral analysis edema and fluid is similar to prior study from 04/07/2025. ABDOMEN/PELVIS: LIVER, GALLBLADDER, AND BILIARY TREE: The liver is normal in size, shape, and attenuation. No focal hepatic lesion or biliary ductal dilatation is present. The gallbladder is unremarkable with no evidence of radiopaque gallstones, gallbladder wall thickening, or obvious pericholecystic inflammatory changes. PANCREAS: Normal; no mass or surrounding fluid. SPLEEN: Normal size. No focal lesion. ADRENAL GLANDS: Normal; no mass. KIDNEYS AND URETERS: The kidneys are normal in size, shape, and attenuation. No hydronephrosis, hydroureter, or calculi. GASTROINTESTINAL TRACT: Enteric tube tip is within the stomach. Moderate colonic stool burden. No focal wall thickening or abnormal distention. Appendix is not visualized. PERITONEUM/RETROPERITONEUM: Small volume free fluid. No free air. ABDOMINAL WALL: No significant hernia is appreciated. Mild diffuse abdominal wall edema, especially along the right lateral abdominal wall. LYMPHOVASCULAR STRUCTURES: No lymphadenopathy. The aorta is unremarkable. BLADDER: Decompressed with contrast and Lynch catheter, limiting evaluation. PELVIC VISCERA: Unremarkable. OSSEOUS STRUCTURES: No acute or suspicious osseous abnormality. CT right upper extremity: Posterior widening changes, with skin wound and locules of air along the visualized right upper extremity. No underlying organized collection is identified. Diffuse residual subcutaneous edema. Right brachial vasculature ends in close proximity to the debridement site however appears to be patent where visualized. Procedure Note Reji Cook MD - 04/09/2025 EXAMINATION: CT CHEST WITH CONTRAST CT RIGHT UPPER EXTREMITY WITH CONTRAST CLINICAL INFORMATION: s/p RUE/chest soft tissue debridement of abscess/soft tissue infection. COMPARISON: None available. TECHNIQUE: Multidetector volumetric imaging was performed from the thoracic inlet through the pubic symphysis following the administration of: Oral contrast: No Intravenous contrast: 89 mL Omnipaque 350 No contrast reaction reported Sagittal and coronal reformatted images were obtained on the technologist's workstation. This CT examination was performed using dose optimization techniques as appropriate, variously including the following: *Automated exposure control *Adjustment of mA and/or kV according to patient size (this includes techniques or standardized protocols for targeted exams where dose is matched to indication/reason for exam; i.e. extremities or head) *Use of iterative reconstruction technique Total exam dose-length product 408 mGy-cm. FINDINGS: CHEST: LUNG: Central airways are patent. Endotracheal tube tip is 2.8 cm above the level of tico. Bilateral lower lobe atelectasis/consolidations. Rest of the lungs are clear. PLEURA: Small right and trace left pleural effusion. MEDIASTINUM: Heart size is within normal limits. Trace pericardial effusion. No mediastinal or hilar lymphadenopathy. Thyroid gland is unremarkable. VASCULAR: No thoracic aortic aneurysm or dissection. Central pulmonary arteries opacify normally. Right IJ central venous catheter, with the tip at the cavoatrial junction. CHEST WALL/AXILLA: Right anterior chest wall subcutaneous fluid and locules of air. Additional locules of air and fluid in the subpectoral space on the need the right pectoralis major muscle. Locules of air in the right lateral subpectoral region, extending into the upper extremity, likely from recent debridement. Enlarged right axillary lymph nodes, likely reactive, for example measuring 1.6 cm (303:157). No organized collection is identified. The degree of subpectoral analysis edema and fluid is similar to prior study from 04/07/2025. ABDOMEN/PELVIS: LIVER, GALLBLADDER, AND BILIARY TREE: The liver is normal in size, shape, and attenuation. No focal hepatic lesion or biliary ductal dilatation is present. The gallbladder is unremarkable with no evidence of radiopaque gallstones, gallbladder wall thickening, or obvious pericholecystic inflammatory changes. PANCREAS: Normal; no mass or surrounding fluid. SPLEEN: Normal size. No focal lesion. ADRENAL GLANDS: Normal; no mass. KIDNEYS AND URETERS: The kidneys are normal in size, shape, and attenuation. No hydronephrosis, hydroureter, or calculi. GASTROINTESTINAL TRACT: Enteric tube tip is within the stomach. Moderate colonic stool burden. No focal wall thickening or abnormal distention. Appendix is not visualized. PERITONEUM/RETROPERITONEUM: Small volume free fluid. No free air. ABDOMINAL WALL: No significant hernia is appreciated. Mild diffuse abdominal wall edema, especially along the right lateral abdominal wall. LYMPHOVASCULAR STRUCTURES: No lymphadenopathy. The aorta is unremarkable. BLADDER: Decompressed with contrast and Lynch catheter, limiting evaluation. PELVIC VISCERA: Unremarkable. OSSEOUS STRUCTURES: No acute or suspicious osseous abnormality. CT right upper extremity: Posterior widening changes, with skin wound and locules of air along the visualized right upper extremity. No underlying organized collection is identified. Diffuse residual subcutaneous edema. Right brachial vasculature ends in close proximity to the debridement site however appears to be patent where visualized. IMPRESSION: 1. Postsurgical changes in the right anterior chest wall and right upper extremity, with skin wound and locules of air along the visualized right upper extremity. No underlying organized collection is identified. 2. Similar right subpectoral fluid compared to prior study from 04/07/2025. Underlying intramuscular abscess cannot be excluded. 3. Small right and trace left pleural effusion. Bilateral lower lobe atelectasis/consolidations. 4. Small volume free fluid in the abdomen and pelvis. 5. Mild diffuse abdominal wall edema, especially along the right lateral abdominal wall. Ani Brown APRN IM CT ORDERABLES Edited Result - Final * POCT Glucose, Fingerstick (04/08/2025 10:18 PM EDT) POC Glucose 92 65 - 99 mg/dL 04/08/2025 10:18 PM EDT Blood specimen / Unknown 04/08/2025 10:18 PM EDT 04/08/2025 10:19 PM EDT Kenton Medina MD POINT OF CARE TEST ORDERABLES Fi nal Result HOSPITAL LAB See Below * XR Abdomen 1 view (04/08/2025 9:35 PM EDT) Anatomical Region Laterality Modality Abdomen Computed Radiogr aphy 04/08/2025 9:21 PM EDT Impressions 04/09/2025 3:22 AM EDT Chest: 1. Endotracheal tube terminates 4 cm above the tico. Lines and tubes otherwise as described above. 2. Increased size of the small right pleural effusion with subadjacent hazy right basilar opacities, favoring compressive atelectasis. Abdomen: 1. Enteric tube tip and side-port project over the stomach. 2. Partially visualized large colonic stool burden. Interpreted by: Emilee Casas MD Natural Gas Engineer I personally reviewed the images and the resident's preliminary report and AGREE with the report as it is now presented ([email or web address]). Narrative 04/09/2025 3:22 AM EDT EXAMINATION: XR CHEST XR ABDOMEN CLINICAL INFORMATION: s/p intubation COMPARISON: Chest radiograph 04/07/2025 TECHNIQUE: Frontal view of the chest was obtained. AP view of the abdomen. FINDINGS: Chest: Endotracheal tube terminates 4 cm above the tico. Esophageal temperature probe. Enteric tube courses subdiaphragmatically and terminates outside the visual field. Right IJ CVC projects over the cavoatrial junction. Lungs are hypoexpanded. Increased size of the small right pleural effusion with hazy right basilar opacities. No focal consolidation. No pneumothorax. Cardiomediastinal silhouette is similar to prior. No acute osseous findings. Abdomen: Enteric tube tip and side-port project over the stomach. Partially visualized large colonic stool burden. Nonobstructive bowel gas pattern. No abnormal soft tissue calcifications or acute osseous findings. Procedure Note Kyree Phan MD - 04/09/2025 EXAMINATION: XR CHEST XR ABDOMEN CLINICAL INFORMATION: s/p intubation COMPARISON: Chest radiograph 04/07/2025 TECHNIQUE: Frontal view of the chest was obtained. AP view of the abdomen. FINDINGS: Chest: Endotracheal tube terminates 4 cm above the tico. Esophageal temperature probe. Enteric tube courses subdiaphragmatically and terminates outside the visual field. Right IJ CVC projects over the cavoatrial junction. Lungs are hypoexpanded. Increased size of the small right pleural effusion with hazy right basilar opacities. No focal consolidation. No pneumothorax. Cardiomediastinal silhouette is similar to prior. No acute osseous findings. Abdomen: Enteric tube tip and side-port project over the stomach. Partially visualized large colonic stool burden. Nonobstructive bowel gas pattern. No abnormal soft tissue calcifications or acute osseous findings. IMPRESSION: Chest: 1. Endotracheal tube terminates 4 cm above the tico. Lines and tubes otherwise as described above. 2. Increased size of the small right pleural effusion with subadjacent hazy right basilar opacities, favoring compressive atelectasis. Abdomen: 1. Enteric tube tip and side-port project over the stomach. 2. Partially visualized large colonic stool burden. Interpreted by: Emilee Casas MD Natural Gas Engineer I personally reviewed the images and the resident's preliminary report and AGREE with the report as it is now presented ([email or web address]). us Aniaaron Morelchandler Brown APRN IMG DIAGNOSTIC IMAGING O RDERABLES Final Result * XR Chest 1 view-Portable (STAT) (04/08/2025 9:34 PM EDT) Anatomical Region Laterality Modality Chest Computed Radiogr aphy 04/08/2025 9:21 PM EDT Impressions 04/09/2025 3:22 AM EDT Chest: 1. Endotracheal tube terminates 4 cm above the tico. Lines and tubes otherwise as described above. 2. Increased size of the small right pleural effusion with subadjacent hazy right basilar opacities, favoring compressive atelectasis. Abdomen: 1. Enteric tube tip and side-port project over the stomach. 2. Partially visualized large colonic stool burden. Interpreted by: Emilee Casas MD Natural Gas Engineer I personally reviewed the images and the resident's preliminary report and AGREE with the report as it is now presented ([email or web address]). Narrative 04/09/2025 3:22 AM EDT EXAMINATION: XR CHEST XR ABDOMEN CLINICAL INFORMATION: s/p intubation COMPARISON: Chest radiograph 04/07/2025 TECHNIQUE: Frontal view of the chest was obtained. AP view of the abdomen. FINDINGS: Chest: Endotracheal tube terminates 4 cm above the tico. Esophageal temperature probe. Enteric tube courses subdiaphragmatically and terminates outside the visual field. Right IJ CVC projects over the cavoatrial junction. Lungs are hypoexpanded. Increased size of the small right pleural effusion with hazy right basilar opacities. No focal consolidation. No pneumothorax. Cardiomediastinal silhouette is similar to prior. No acute osseous findings. Abdomen: Enteric tube tip and side-port project over the stomach. Partially visualized large colonic stool burden. Nonobstructive bowel gas pattern. No abnormal soft tissue calcifications or acute osseous findings. Procedure Note Kyree Phan MD - 04/09/2025 EXAMINATION: XR CHEST XR ABDOMEN CLINICAL INFORMATION: s/p intubation COMPARISON: Chest radiograph 04/07/2025 TECHNIQUE: Frontal view of the chest was obtained. AP view of the abdomen. FINDINGS: Chest: Endotracheal tube terminates 4 cm above the tico. Esophageal temperature probe. Enteric tube courses subdiaphragmatically and terminates outside the visual field. Right IJ CVC projects over the cavoatrial junction. Lungs are hypoexpanded. Increased size of the small right pleural effusion with hazy right basilar opacities. No focal consolidation. No pneumothorax. Cardiomediastinal silhouette is similar to prior. No acute osseous findings. Abdomen: Enteric tube tip and side-port project over the stomach. Partially visualized large colonic stool burden. Nonobstructive bowel gas pattern. No abnormal soft tissue calcifications or acute osseous findings. IMPRESSION: Chest: 1. Endotracheal tube terminates 4 cm above the tico. Lines and tubes otherwise as described above. 2. Increased size of the small right pleural effusion with subadjacent hazy right basilar opacities, favoring compressive atelectasis. Abdomen: 1. Enteric tube tip and side-port project over the stomach. 2. Partially visualized large colonic stool burden. Interpreted by: Emilee Casas MD Natural Gas Engineer I personally reviewed the images and the resident's preliminary report and AGREE with the report as it is now presented ([email or web address]). us Ani Brown APRN IMG DIAGNOSTIC IMAGING O RDERABLES Final Result * (ABNORMAL) Triglycerides (04/08/2025 9:15 PM EDT) Triglycerides 234(H) <150 mg/dL 04/08/2025 10:46 PM EDT [facility] Blood Blood specimen / Unknown 04/08/2025 9:15 PM EDT 04/08/2025 10:05 PM EDT Ani Brown BABYSITTER LAB BLOOD ORDERABLES Fin al Result Performing Organization Address City/[facility] [place] [address], [place] [address] * CREATINE KINASE (CK) (04/08/2025 9:15 PM EDT) Pathologist [facility] Creatine Kinase (CK) 138 24 - 173 U/L 04/08/2025 10:46 PM EDT [facility] Blood Blood specimen / Unknown 04/08/2025 9:15 PM EDT 04/08/2025 10:05 PM EDT Ani Brown BABYSITTER LAB BLOOD ORDERABLES Fin al Result Performing Organization Address [facility] [place] [address], [place] [address] * (ABNORMAL) Complete Blood Count WITHOUT Differential - STAT (04/08/2025 9:15 PM EDT) [facility] White Blood Cell Count 9.4 4.0 - 11.0 Thou/uL 04/08/2025 10:24 PM EDT [facility] Platelet Count 390 150 - 450 Thou/uL 04/08/2025 10:24 PM EDT [facility] Hemoglobin 7.2(L) 11.7 - 15.7 g/dL 04/08/2025 10:24 PM T [facility] Hematocrit 22.4(L) 35.0 - 47.0 % 04/08/2025 10:24 PM EDT [facility] Red Blood Cell Count 2.89(L) 4.00 - 5.40 Mil/uL 04/08/2025 10:24 PM EDT [facility] MCV 78(L) 80 - 100 fL 04/08/2025 10:24 PM EDT [facility] MCH 24.9(L) 26.0 - 34.0 pg 04/08/2025 10:24 PM EDT [facility] MCHC 32.1 30.0 - 36.0 g/dL 04/08/2025 10:24 PM EDT [facility] RDW 16.4(H) 11.5 - 14.5 % 04/08/2025 10:24 PM EDT [facility] MPV 9.4 7.5 - 12.5 fL 04/08/2025 10:24 PM EDT [facility] Blood Blood specimen / Unknown 04/08/2025 9:15 PM EDT 04/08/2025 10:05 PM EDT Ani Brown BABYSITTER LAB BLOOD ORDERABLES Fin al Result Performing Organization Address City/[facility]/[place] [address], [place] [address] * (ABNORMAL) Calcium, Ionized (04/08/2025 9:15 PM EDT) Calcium, Ionized 1.05(L) 1.17 - 1.33 mmol/L 04/08/2025 10:18 PM EDT [facility] Blood Blood specimen / Unknown 04/08/2025 9:15 PM EDT 04/08/2025 10:05 PM EDT Ani Mami Brown APRN LAB BLOOD [place] [address], [address] [address] * Phosphorus (04/08/2025 9:15 PM EDT) Phosphorus 3.5 2.7 - 4.5 mg/dL 04/08/2025 10:46 PM EDT [facility] Blood Blood specimen / Unknown 04/08/2025 9:15 PM EDT 04/08/2025 10:05 PM EDT Ani Brown BABYSITTER LAB BLOOD ORDERABLES Fin al Result Performing Organization Address City/[facility]/ZIP Co de Phone Number [address] [address], [address] [address] * Magnesium (04/08/2025 9:15 PM EDT) Magnesium 2.1 1.6 - 2.7 mg/dL 04/08/2025 10:46 PM EDT [facility] Blood Blood specimen / Unknown 04/08/2025 9:15 PM EDT 04/08/2025 10:05 PM EDT Ani Brown BABYSITTER LAB BLOOD ORDERABLES Fin al Result Performing Organization Address [facility] Co de Phone Number [address] [address], [address] [address] * LACTIC ACID, PLASMA (04/08/2025 9:15 PM EDT) Lactic Acid 1.1 0.5 - 1.9 mmol/L 04/08/2025 10:36 PM EDT [facility] Blood Blood specimen / Unknown 04/08/2025 9:15 PM EDT 04/08/2025 10:05 PM EDT Ani Brown BABYSITTER LAB BLOOD ORDERABLES Fin al Result Performing Organization Address City/[facility] Co de Phone Number [address] [address], [address] [address] * (ABNORMAL) Basic Metabolic Panel (04/08/2025 9:15 PM EDT) Glucose 83 65 - 99 mg/dL 04/08/2025 10:46 PM EDT [facility] Comment:Fasting: <100 mg/dL, Non-Fasting: <200 mg/dL (ADA 2005) Blood Urea Nitrogen (BUN) 10 8 - 21 mg/dL 04/08/2025 10:46 PM EDT [facility] Creatinine 0.58 0.40 - 1.10 mg/dL 04/08/2025 10:46 PM EDT [facility] eGFR >90 >59 04/08/2025 10:46 PM EDT [facility] Comment:CKD-EPI (2020) in mL /min/1.73 sq meters. Sodium 138 136 - 145 mmol/L 04/08/2025 10:46 PM EDT [facility] Potassium 3.6 3.4 - 5.3 mmol/L 04/08/2025 10:46 PM EDT [facility] Chloride 102 98 - 107 mmol/L 04/08/2025 10:46 PM EDT [facility] CO2 26 22 - 33 mmol/L 04/08/2025 10:46 PM EDT [facility] Anion Gap 10 7 - 17 04/08/2025 10:46 PM EDT [facility] Calcium 7.1(L) 8.7 - 10.5 mg/dL 04/08/2025 10:46 PM EDT [facility] BUN/Creatinine Ratio 17 10.0 - 25.0 Ratio 04/08/2025 10:46 PM EDT [facility] Blood Blood specimen / Unknown 04/08/2025 9:15 PM EDT 04/08/2025 10:05 PM EDT us Ani Brown APRN LAB BLOOD ORDERABLES Fin al Result Performing Organization Address City/[facility]/[place] [address], [place] [address] * (ABNORMAL) C-REACTIVE PROTEIN (04/08/2025 2:05 PM EDT) C-Reactive Protein 11.38(H) 0 - 0.49 mg/dL 04/08/2025 4:11 PM EDT [facility] Blood Blood specimen / Unknown 04/08/2025 2:05 PM EDT 04/08/2025 3:16 PM EDT us Anisa Perez MD LAB BLOOD ORDERABLES Final Resu lt [address] [address], [address] [address] * (ABNORMAL) Erythrocyte Sedimentation Rate (ESR) (04/08/2025 2:05 PM EDT) [facility] Erythrocyte Sediment Rate (ESR) 27(H) <20 MM/HR 04/08/2025 3:47 PM EDT [facility] Blood Blood specimen / Unknown 04/08/2025 2:05 PM EDT 04/08/2025 3:16 PM EDT Anisa Perez MD LAB BLOOD ORDERABLES Final Resu lt Performing Organization Address [facility] [place] [address], [place] [address] * Vancomycin Level, Random (04/08/2025 2:05 PM EDT) [facility] Vancomycin, Random 17 mg/L 04/08/2025 4:12 PM EDT [facility] Comment:No reference range e stablished for random levels. Time of Last Dose Information not given 04/08/2025 2:06 PM EDT [facility] Blood Blood specimen / Unknown 04/08/2025 2:05 PM EDT 04/08/2025 3:16 PM EDT Db Lynn MD LAB BLOOD ORDERABLES Nurys l Result Performing Organization Address City/[facility]/ZIP Co de Phone Number [address] [address], [address] [address] * (ABNORMAL) Hepatitis Panel, Acute (04/08/2025 8:49 AM EDT) [facility] Hepatitis A Antibody IgM Nonreactive Nonreactive 04/09/2025 12:07 PM EDT [facility] Hepatitis B Core Antibody IgM Nonreactive Nonreactive 04/09/2025 12:07 PM EDT [facility] Hepatitis B Surface Ag Screen Nonreactive Nonreactive 04/09/2025 12:07 PM EDT [facility] Hepatitis C Antibody Reactive(A) Nonreactive 04/09/2025 12:07 PM EDT [facility] Comment:Presumptive evidence of antibodies to HCV. Hepatitis C Viral Load, Quantitative results to follow. Hepatitis Interpretation: These results indicate Hepatitis C infection. 04/09/2025 12:07 PM EDT [facility] Blood Blood specimen / Unknown 04/08/2025 8:49 AM EDT 04/08/2025 9:29 AM EDT Daisy Galdamez PA-C LAB BLOOD ORDERABLES Final Re sult Performing Organization Address City/[facility]/ZIP Co de Phone Number [facility] [address] [place] [address], * HIV 1/2 Ag/Ab CMIA Reflex to Confirmation (04/08/2025 8:49 AM EDT) HIV 1/2 Ag/Ab CMIA Nonreactive Nonreactive 04/09/2025 12:07 PM EDT [facility] Comment: Results show no evidence of infection by HIV 1/2. If clinically indicated, repeat CMIA or test by nucleic acid amplification. HIV 1/2 Antigen/Antibody CMIA reflex to confirmation AND HIV-1 RNA viral load recommended in patients who are taking or have recently taken PrEP. Blood Blood specimen / Unknown 04/08/2025 8:49 AM EDT 04/08/2025 9:29 AM EDT Daisy GARRETT-C LAB BLOOD ORDERABLES Final Re sult [facility] [address] [place] [address], * Phosphorus (04/08/2025 5:30 AM EDT) Phosphorus 3.5 2.7 - 4.5 mg/dL 04/08/2025 6:30 AM EDT [facility] Blood Blood specimen / Unknown 04/08/2025 5:30 AM EDT 04/08/2025 5:54 AM EDT us Db Lynn MD LAB BLOOD ORDERABLES Nurys l Result Performing Organization Address City/[facility] [place] [address], [place] [address] * Magnesium (04/08/2025 5:30 AM EDT) Magnesium 2.1 1.6 - 2.7 mg/dL 04/08/2025 6:30 AM EDT [facility] Blood Blood specimen / Unknown 04/08/2025 5:30 AM EDT 04/08/2025 5:54 AM EDT us Db Lynn MD LAB BLOOD ORDERABLES Nurys l Result Performing Organization Address [facility] [place] [address], [place] [address] * (ABNORMAL) Basic Metabolic Panel (Early AM) (04/08/2025 5:30 AM EDT) Glucose 127(H) 65 - 99 mg/dL 04/08/2025 6:30 AM EDT [facility] Comment:Fasting: <100 mg/dL, Non-Fasting: <200 mg/dL (ADA 2005) Blood Urea Nitrogen (BUN) 10 8 - 21 mg/dL 04/08/2025 6:30 AM EDT [facility] Creatinine 0.51 0.40 - 1.10 mg/dL 04/08/2025 6:30 AM EDT [facility] eGFR >90 >59 04/08/2025 6:30 AM T [facility] Comment:CKD-EPI (2020) in mL /min/1.73 sq meters. Sodium 140 136 - 145 mmol/L 04/08/2025 6:30 AM EDT [facility] Potassium 3.7 3.4 - 5.3 mmol/L 04/08/2025 6:30 AM EDT [facility] Chloride 101 98 - 107 mmol/L 04/08/2025 6:30 AM [facility] CO2 31 22 - 33 mmol/L 04/08/2025 6:30 AM [facility] Anion Gap 8 7 - 17 04/08/2025 6:30 AM [facility] Calcium 7.0(L) 8.7 - 10.5 mg/dL 04/08/2025 6:30 AM [facility] BUN/Creatinine Ratio 20 10.0 - 25.0 Ratio 04/08/2025 6:30 AM [facility] Blood Blood specimen / Unknown 04/08/2025 5:30 AM EDT 04/08/2025 5:54 AM EDT Db Lynn MD LAB BLOOD ORDERABLES Nurys charles Result [address] [address], [address] [address] * (ABNORMAL) Complete Blood Count WITHOUT Differential - Early AM (04/08/2025 5:30 AM EDT) White Blood Cell Count 15.0(H) 4.0 - 11.0 Thou/uL 04/08/2025 6:07 AM [facility] Platelet Count 392 150 - 450 Thou/uL 04/08/2025 6:07 AM [facility] Hemoglobin 8.0(L) 11.7 - 15.7 g/dL 04/08/2025 6:07 AM [facility] Hematocrit 25.1(L) 35.0 - 47.0 % 04/08/2025 6:07 AM [facility] Red Blood Cell Count 3.30(L) 4.00 - 5.40 Mil/uL 04/08/2025 6:07 AM [facility] MCV 76(L) 80 - 100 fL 04/08/2025 6:07 AM [facility] MCH 24.2(L) 26.0 - 34.0 pg 04/08/2025 6:07 AM [facility] MCHC 31.9 30.0 - 36.0 g/dL 04/08/2025 6:07 AM EDT [facility] RDW 15.9(H) 11.5 - 14.5 % 04/08/2025 6:07 AM EDT [facility] MPV 9.6 7.5 - 12.5 fL 04/08/2025 6:07 AM EDT [facility] Blood Blood specimen / Unknown 04/08/2025 5:30 AM EDT 04/08/2025 5:54 AM EDT Db Lynn MD LAB BLOOD ORDERABLES Nurys araceli Result [address] [address], [address] [address] * XR Chest 1 view-Portable (04/07/2025 7:47 PM EDT) Anatomical Region Laterality Modality Chest Computed Radiogr aphy 04/07/2025 6:42 PM EDT Impressions 04/08/2025 5:12 AM EDT 1. Right IJ CVC projects over the cavoatrial junction. No postprocedural pneumothorax. 2. Subsegmental atelectasis in the right lung base. 3. Possible trace right pleural effusion. Interpreted by: Emilee Casas MD Natural Gas Engineer I personally reviewed the images and the resident's preliminary report and AGREE with the report as it is now presented ([email or web address]). Narrative 04/08/2025 5:12 AM EDT EXAMINATION: XR CHEST CLINICAL INFORMATION: Confirmation of IJ COMPARISON: Chest radiograph 04/02/2025 TECHNIQUE: Frontal view of the chest was obtained. FINDINGS: Right IJ CVC projects over the cavoatrial junction. Lungs are hypoexpanded. Asymmetric elevation of the right hemidiaphragm. Subsegmental atelectasis in the right lung base. No focal consolidation. Mild blunting of the right costophrenic sulcus. Cardiomediastinal silhouette is similar to prior. No acute osseous findings. Procedure Note Kyree Phan MD - 04/08/2025 EXAMINATION: XR CHEST CLINICAL INFORMATION: Confirmation of IJ COMPARISON: Chest radiograph 04/02/2025 TECHNIQUE: Frontal view of the chest was obtained. FINDINGS: Right IJ CVC projects over the cavoatrial junction. Lungs are hypoexpanded. Asymmetric elevation of the right hemidiaphragm. Subsegmental atelectasis in the right lung base. No focal consolidation. Mild blunting of the right costophrenic sulcus. Cardiomediastinal silhouette is similar to prior. No acute osseous findings. IMPRESSION: 1. Right IJ CVC projects over the cavoatrial junction. No postprocedural pneumothorax. 2. Subsegmental atelectasis in the right lung base. 3. Possible trace right pleural effusion. Interpreted by: Emilee Casas MD Natural Gas Engineer I personally reviewed the images and the resident's preliminary report and AGREE with the report as it is now presented ([email or web address]). Ham Whitehead MD IMG DIAGNOSTIC IMAGING ORD ERABLES Final Result * (ABNORMAL) Tissue Culture (aerobic, anaerobic + Gram stain) (04/07/2025 3:47 PM EDT) Gram stain suggestive of Many neutrophils Red blood cells Gram positive cocci 04/07/2025 10:06 PM EDT [facility] Culture Methicillin Resistant Staph aureus (MRSA)(A) 04/14/2025 9:39 AM T [facility] Culture No anaerobes isolated after 7 days 04/14/2025 9:39 AM [facility] Tissue (Arm, Upper right) 04/07/2025 3:47 PM EDT Narrative Organism Antibiotic Method Susceptibility Methicillin Resistant Staph aureus (MRSA) Cefazolin (REPORT) BACTERIAL MUNA AND INTERPRETATION (MCG/ML) >16: Resistant Methicillin Resistant Staph aureus (MRSA) Clindamycin (REPORT) BACTERIAL MUNA AND INTERPRETATION (MCG/ML) >4: Resistant Comment:Clindamycin result was confirmed by D-test. Methicillin Resistant Staph aureus (MRSA) Erythromycin (REPORT) BACTERIAL MUNA AND INTERPRETATION (MCG/ML) >4: Resistant Methicillin Resistant Staph aureus (MRSA) Minocycline (REPORT) BACTERIAL MUNA AND INTERPRETATION (MCG/ML) <=1: Susceptible Methicillin Resistant Staph aureus (MRSA) Oxacillin (REPORT) BACTERIAL MUNA AND INTERPRETATION (MCG/ML) >4: Resistant Methicillin Resistant Staph aureus (MRSA) Tetracycline (REPORT) BACTERIAL MUNA AND INTERPRETATION (MCG/ML) >8: Resistant Methicillin Resistant Staph aureus (MRSA) Vancomycin (REPORT) BACTERIAL MUNA AND INTERPRETATION (MCG/ML) 1: Susceptible Methicillin Resistant Staph aureus (MRSA) Trimethoprim/Sulfametho xazole (REPORT) BACTERIAL MUNA AND INTERPRETATION (MCG/ML) Susceptible Comment:Trimeth/Sulf a susceptibility performed by disk diffusion. Db Lynn MD MICROBIOLOGY - GENERAL OR DERABLES Final Result Performing Organization Address City/[facility]/ZIP Co de Phone Number [facility] [address] [place] [address], * (ABNORMAL) Aerobic culture (Gram stain included) (04/07/2025 3:02 PM EDT) Gram stain suggestive of Many neutrophils Few squamous cells Red blood cells Gram positive cocci 04/07/2025 5:53 PM EDT [facility] Culture Methicillin Resistant Staph aureus (MRSA) Susceptibility of the same isolate identification, from the same apparent body site is only performed once per 5 calendar days. See susceptibilities reported on specimen collected 04/07/2025 (A) 04/09/2025 1:12 PM EDT [facility] Aspirate, Abscess (Arm, Upper right) 04/07/2025 3:02 PM EDT Db Lynn MD MICROBIOLOGY - GENERAL OR DERABLES Final Result Performing Organization Address City/[facility]/ZIP Co de Phone Number [facility] [address] [employer] [place] [address], [facility] [address] [place] [address] * Anaerobic Culture (04/07/2025 3:02 PM EDT) Culture No anaerobes isolated after 7 days 04/14/2025 9:39 AM EDT [facility] Aspirate, Abscess (Arm, Upper right) 04/07/2025 3:02 PM EDT us Db Lynn MD MICROBIOLOGY - GENERAL OR DERABLES Final Result [facility] [address] [place] [address], [place] * (ABNORMAL) POCT , Urine (04/07/2025 2:14 PM EDT) Preg Test, Ur Negative Negative Lot Number [id number] [employer] Pass Pass Urine 04/07/2025 2:14 PM EDT us Db Lynn MD POINT OF CARE TEST ORDERA BLES Final Result * CT Upper extremity with contrast-Left (04/07/2025 1:11 PM EDT) Anatomical Region Laterality Modality Arm Left Computed Tomogra phy 04/07/2025 12:4 9 PM EDT Addenda Addendum by Buddy Echevarria MD on 04/07/2025 1:49 PM EDT ADDENDUM #1 Addendum: Reactive left axillary lymph nodes. Impressions 04/07/2025 1:39 PM EDT Peripherally enhancing fluid collection within the upper extremity, approximately 10 cm proximal to the elbow joint and extending to the level of the elbow joint. At its distal aspect the fluid collection appears to extend to the subcutaneous soft tissues. No definite enhancing fluid collection distal to the subcutaneous component distal to the elbow joint. Findings are concerning for abscess. Narrative 04/07/2025 1:39 PM EDT EXAMINATION: CT left upper extremity without contrast CLINICAL INFORMATION: Abscess evaluation COMPARISON: MRI left humerus dated same day TECHNIQUE: Multiple axial CT images of the left upper extremity are acquired without contrast. Sagittal and coronal reconstructions are provided. 75 mL Omnipaque 300. DOSE LOWERING TECHNIQUES: This CT examination was performed using dose optimization techniques as appropriate, variously including the following: - Automated exposure control - Adjustment of mA and/or kV according to patient size (this includes techniques or standardized protocols for targeted exams where dose is matched to indication/reason for exam; i.e. extremities or head) - Use of iterative construction technique 1675.35 FINDINGS: Within the upper extremity, one appears deep to the biceps musculature there is a peripherally enhancing fluid collection originating approximately 10 cm proximal to the elbow joint and extending to the level of the elbow joint. At its distal aspect the fluid collection appears to extend to the subcutaneous soft tissues. No definite enhancing fluid collection distal to the subcutaneous component distal to the elbow joint. Diffuse subcutaneous soft tissue inflammation of the elbow and forearm. No acute osseous abnormality. Procedure Note Buddy Echevarria MD - 04/07/2025 EXAMINATION: CT left upper extremity without contrast CLINICAL INFORMATION: Abscess evaluation COMPARISON: MRI left humerus dated same day TECHNIQUE: Multiple axial CT images of the left upper extremity are acquired without contrast. Sagittal and coronal reconstructions are provided. 75 mL Omnipaque 300. DOSE LOWERING TECHNIQUES: This CT examination was performed using dose optimization techniques as appropriate, variously including the following: - Automated exposure control - Adjustment of mA and/or kV according to patient size (this includes techniques or standardized protocols for targeted exams where dose is matched to indication/reason for exam; i.e. extremities or head) - Use of iterative construction technique 167.35 FINDINGS: Within the upper extremity, one appears deep to the biceps musculature there is a peripherally enhancing fluid collection originating approximately 10 cm proximal to the elbow joint and extending to the level of the elbow joint. At its distal aspect the fluid collection appears to extend to the subcutaneous soft tissues. No definite enhancing fluid collection distal to the subcutaneous component distal to the elbow joint. Diffuse subcutaneous soft tissue inflammation of the elbow and forearm. No acute osseous abnormality. IMPRESSION: Peripherally enhancing fluid collection within the upper extremity, approximately 10 cm proximal to the elbow joint and extending to the level of the elbow joint. At its distal aspect the fluid collection appears to extend to the subcutaneous soft tissues. No definite enhancing fluid collection distal to the subcutaneous component distal to the elbow joint. Findings are concerning for abscess. us Lucho Donaldson MD IMG CT ORDERABLES Edited Resu lt - Final * MRI Arm w w/o contrast-Lower right (04/07/2025 12:46 PM EDT) Anatomical Region Laterality Modality Arm Right Magnetic Resonan ce 04/07/2025 10:3 9 AM EDT Impressions 04/07/2025 5:17 PM EDT Exam is significantly limited because of difficulties positioning the patient and patient movement. Diffuse generalized abnormality in the subcutaneous soft tissues throughout the right chest, upper arm and forearm compatible with a combination of edema and cellulitis and myositis. As seen on prior CT there are lobulated confluent fluid collections evolving multiple muscle groups and compartments as detailed above including the pectoralis major as well as extending distally within anterior and posterior compartment muscles and between the muscles and fascia in the upper arm consistent with and suspicious for abscesses along with myositis. In the proximal forearm anterolaterally there is a fluid collection at least partially within the brachial radialis and extensor muscles and between these muscles and overlying fascia suspicious for abscess along with adjacent myositis. Question abnormal increased T2 signal in the olecranon not completely assessed on this examination.. No bone erosion. Cannot exclude localized osteomyelitis. The remaining bones throughout the upper and lower extremity appear normal Narrative 04/07/2025 5:17 PM EDT EXAMINATION: MR UPPER EXTREMITY NON JOINT WITHOUT AND WITH CONTRAST, HUMERUS, RIGHT MRI OF THE UPPER EXTREMITY NONJOINT WITHOUT AND WITH CONTRAST FOREARM, RIGHT CLINICAL INFORMATION: Right arm abscess. COMPARISON: Multiple prior examinations most recent CT upper extremity exam April 07, 2025. TECHNIQUE: MRI of the right upper extremity/humerus was performed without and with contrast on a high-field MRI scanner. MRI of the right upper extremity/forearm was performed without and with contrast on a high-field MRI scanner. Contrast 7.5 mL of Magnevist contrast given intravenously during both portions of the exam. FINDINGS: Exam is significantly limited because of difficulties positioning the patient and patient movement. Additionally axial T2-weighted sequences of the forearm and axial T1-weighted sequences of the upper arm humerus could not be obtained. RIGHT UPPER EXTREMITY/HUMERUS: As noted on the CT examination again noted is a lobulated fluid collection extending along the deep surface of the pectoralis major muscle, coracobrachialis extending into the axilla with enhancement of the surrounding tissues. This is suspicious for an evolving abscess. The noted fluid collections above are continuous with the biceps muscle both within the muscle and surrounding the muscle deep to the fascia throughout the anterior compartment and extending the length of the upper extremity to the level of the proximal portion of the distal biceps tendon. Additional mild increased T2 signal and enhancement of the muscles compatible with generalized myositis. The fluid anterior to the anterior compartment deep to the fascia measures up to 1 cm. Also again noted is fluid extending between the teres minor and triceps muscles proximally and extending distally within the posterior compartment deep to the fascia surrounding and partially compressing the triceps muscles. The appearance is suspicious for subfascial abscess between the fascia and triceps muscles. This extends the length of the triceps muscles. This collection measures up to 1.6 cm anterior to posterior. Mild heterogeneous abnormal signal and enhancement of the muscles compatible with myositis. There is generalized fluid signal in the subcutaneous soft tissues with partial enhancement compatible with a combination of edema and cellulitis throughout the upper arm. Osseous structures: Normal. No abnormal marrow signal. RIGHT UPPER EXTREMITY/FOREARM: As in the upper extremity there is feathery-appearing fluid-like signal noted throughout the forearm with partial enhancement compatible with a combination of edema and cellulitis. There is a lobulated fluid collection at least partially within the brachialradialis muscle and adjacent extensor muscles proximally beginning at the elbow joint and extending to the forearm over approximately 9 cm craniocaudal, 5 cm transverse and 1 cm AP. The collection appears to extend outside of the muscle deep to the fascia as it extends distally. There is heterogeneous enhancement of the noted muscles compatible with myositis. Remaining muscles of the forearm do not demonstrate any definite enhancement. Full evaluation is limited as we were unable to obtain T2-weighted sequences. No additional visible muscle collection noted. Osseous structures: There is possible ill-defined increased T2 signal in the olecranon which is not completely imaged throughout the examination in multiple planes Procedure Note Rodriguez Herron MD - 04/07/2025 EXAMINATION: MR UPPER EXTREMITY NON JOINT WITHOUT AND WITH CONTRAST, HUMERUS, RIGHT MRI OF THE UPPER EXTREMITY NONJOINT WITHOUT AND WITH CONTRAST FOREARM, RIGHT CLINICAL INFORMATION: Right arm abscess. COMPARISON: Multiple prior examinations most recent CT upper extremity exam April 07, 2025. TECHNIQUE: MRI of the right upper extremity/humerus was performed without and with contrast on a high-field MRI scanner. MRI of the right upper extremity/forearm was performed without and with contrast on a high-field MRI scanner. Contrast 7.5 mL of Magnevist contrast given intravenously during both portions of the exam. FINDINGS: Exam is significantly limited because of difficulties positioning the patient and patient movement. Additionally axial T2-weighted sequences of the forearm and axial T1-weighted sequences of the upper arm humerus could not be obtained. RIGHT UPPER EXTREMITY/HUMERUS: As noted on the CT examination again noted is a lobulated fluid collection extending along the deep surface of the pectoralis major muscle, coracobrachialis extending into the axilla with enhancement of the surrounding tissues. This is suspicious for an evolving abscess. The noted fluid collections above are continuous with the biceps muscle both within the muscle and surrounding the muscle deep to the fascia throughout the anterior compartment and extending the length of the upper extremity to the level of the proximal portion of the distal biceps tendon. Additional mild increased T2 signal and enhancement of the muscles compatible with generalized myositis. The fluid anterior to the anterior compartment deep to the fascia measures up to 1 cm. Also again noted is fluid extending between the teres minor and triceps muscles proximally and extending distally within the posterior compartment deep to the fascia surrounding and partially compressing the triceps muscles. The appearance is suspicious for subfascial abscess between the fascia and triceps muscles. This extends the length of the triceps muscles. This collection measures up to 1.6 cm anterior to posterior. Mild heterogeneous abnormal signal and enhancement of the muscles compatible with myositis. There is generalized fluid signal in the subcutaneous soft tissues with partial enhancement compatible with a combination of edema and cellulitis throughout the upper arm. Osseous structures: Normal. No abnormal marrow signal. RIGHT UPPER EXTREMITY/FOREARM: As in the upper extremity there is feathery-appearing fluid-like signal noted throughout the forearm with partial enhancement compatible with a combination of edema and cellulitis. There is a lobulated fluid collection at least partially within the brachialradialis muscle and adjacent extensor muscles proximally beginning at the elbow joint and extending to the forearm over approximately 9 cm craniocaudal, 5 cm transverse and 1 cm AP. The collection appears to extend outside of the muscle deep to the fascia as it extends distally. There is heterogeneous enhancement of the noted muscles compatible with myositis. Remaining muscles of the forearm do not demonstrate any definite enhancement. Full evaluation is limited as we were unable to obtain T2-weighted sequences. No additional visible muscle collection noted. Osseous structures: There is possible ill-defined increased T2 signal in the olecranon which is not completely imaged throughout the examination in multiple planes IMPRESSION: Exam is significantly limited because of difficulties positioning the patient and patient movement. Diffuse generalized abnormality in the subcutaneous soft tissues throughout the right chest, upper arm and forearm compatible with a combination of edema and cellulitis and myositis. As seen on prior CT there are lobulated confluent fluid collections evolving multiple muscle groups and compartments as detailed above including the pectoralis major as well as extending distally within anterior and posterior compartment muscles and between the muscles and fascia in the upper arm consistent with and suspicious for abscesses along with myositis. In the proximal forearm anterolaterally there is a fluid collection at least partially within the brachial radialis and extensor muscles and between these muscles and overlying fascia suspicious for abscess along with adjacent myositis. Question abnormal increased T2 signal in the olecranon not completely assessed on this examination.. No bone erosion. Cannot exclude localized osteomyelitis. The remaining bones throughout the upper and lower extremity appear normal [place] GARRETT [facility] MRI ORDERABLES Final Re sult * MRI Arm w w/o contrast-Upper right (04/07/2025 12:44 PM EDT) Anatomical Region Laterality Modality Arm Right Magnetic Resonan ce 04/07/2025 10:3 9 AM EDT Impressions 04/07/2025 5:17 PM EDT Exam is significantly limited because of difficulties positioning the patient and patient movement. Diffuse generalized abnormality in the subcutaneous soft tissues throughout the right chest, upper arm and forearm compatible with a combination of edema and cellulitis and myositis. As seen on prior CT there are lobulated confluent fluid collections evolving multiple muscle groups and compartments as detailed above including the pectoralis major as well as extending distally within anterior and posterior compartment muscles and between the muscles and fascia in the upper arm consistent with and suspicious for abscesses along with myositis. In the proximal forearm anterolaterally there is a fluid collection at least partially within the brachial radialis and extensor muscles and between these muscles and overlying fascia suspicious for abscess along with adjacent myositis. Question abnormal increased T2 signal in the olecranon not completely assessed on this examination.. No bone erosion. Cannot exclude localized osteomyelitis. The remaining bones throughout the upper and lower extremity appear normal Narrative 04/07/2025 5:17 PM EDT EXAMINATION: MR UPPER EXTREMITY NON JOINT WITHOUT AND WITH CONTRAST, HUMERUS, RIGHT MRI OF THE UPPER EXTREMITY NONJOINT WITHOUT AND WITH CONTRAST FOREARM, RIGHT CLINICAL INFORMATION: Right arm abscess. COMPARISON: Multiple prior examinations most recent CT upper extremity exam April 07, 2025. TECHNIQUE: MRI of the right upper extremity/humerus was performed without and with contrast on a high-field MRI scanner. MRI of the right upper extremity/forearm was performed without and with contrast on a high-field MRI scanner. Contrast 7.5 mL of Magnevist contrast given intravenously during both portions of the exam. FINDINGS: Exam is significantly limited because of difficulties positioning the patient and patient movement. Additionally axial T2-weighted sequences of the forearm and axial T1-weighted sequences of the upper arm humerus could not be obtained. RIGHT UPPER EXTREMITY/HUMERUS: As noted on the CT examination again noted is a lobulated fluid collection extending along the deep surface of the pectoralis major muscle, coracobrachialis extending into the axilla with enhancement of the surrounding tissues. This is suspicious for an evolving abscess. The noted fluid collections above are continuous with the biceps muscle both within the muscle and surrounding the muscle deep to the fascia throughout the anterior compartment and extending the length of the upper extremity to the level of the proximal portion of the distal biceps tendon. Additional mild increased T2 signal and enhancement of the muscles compatible with generalized myositis. The fluid anterior to the anterior compartment deep to the fascia measures up to 1 cm. Also again noted is fluid extending between the teres minor and triceps muscles proximally and extending distally within the posterior compartment deep to the fascia surrounding and partially compressing the triceps muscles. The appearance is suspicious for subfascial abscess between the fascia and triceps muscles. This extends the length of the triceps muscles. This collection measures up to 1.6 cm anterior to posterior. Mild heterogeneous abnormal signal and enhancement of the muscles compatible with myositis. There is generalized fluid signal in the subcutaneous soft tissues with partial enhancement compatible with a combination of edema and cellulitis throughout the upper arm. Osseous structures: Normal. No abnormal marrow signal. RIGHT UPPER EXTREMITY/FOREARM: As in the upper extremity there is feathery-appearing fluid-like signal noted throughout the forearm with partial enhancement compatible with a combination of edema and cellulitis. There is a lobulated fluid collection at least partially within the brachialradialis muscle and adjacent extensor muscles proximally beginning at the elbow joint and extending to the forearm over approximately 9 cm craniocaudal, 5 cm transverse and 1 cm AP. The collection appears to extend outside of the muscle deep to the fascia as it extends distally. There is heterogeneous enhancement of the noted muscles compatible with myositis. Remaining muscles of the forearm do not demonstrate any definite enhancement. Full evaluation is limited as we were unable to obtain T2-weighted sequences. No additional visible muscle collection noted. Osseous structures: There is possible ill-defined increased T2 signal in the olecranon which is not completely imaged throughout the examination in multiple planes Procedure Note Rodriguez Herron MD - 04/07/2025 EXAMINATION: MR UPPER EXTREMITY NON JOINT WITHOUT AND WITH CONTRAST, HUMERUS, RIGHT MRI OF THE UPPER EXTREMITY NONJOINT WITHOUT AND WITH CONTRAST FOREARM, RIGHT CLINICAL INFORMATION: Right arm abscess. COMPARISON: Multiple prior examinations most recent CT upper extremity exam April 07, 2025. TECHNIQUE: MRI of the right upper extremity/humerus was performed without and with contrast on a high-field MRI scanner. MRI of the right upper extremity/forearm was performed without and with contrast on a high-field MRI scanner. Contrast 7.5 mL of Magnevist contrast given intravenously during both portions of the exam. FINDINGS: Exam is significantly limited because of difficulties positioning the patient and patient movement. Additionally axial T2-weighted sequences of the forearm and axial T1-weighted sequences of the upper arm humerus could not be obtained. RIGHT UPPER EXTREMITY/HUMERUS: As noted on the CT examination again noted is a lobulated fluid collection extending along the deep surface of the pectoralis major muscle, coracobrachialis extending into the axilla with enhancement of the surrounding tissues. This is suspicious for an evolving abscess. The noted fluid collections above are continuous with the biceps muscle both within the muscle and surrounding the muscle deep to the fascia throughout the anterior compartment and extending the length of the upper extremity to the level of the proximal portion of the distal biceps tendon. Additional mild increased T2 signal and enhancement of the muscles compatible with generalized myositis. The fluid anterior to the anterior compartment deep to the fascia measures up to 1 cm. Also again noted is fluid extending between the teres minor and triceps muscles proximally and extending distally within the posterior compartment deep to the fascia surrounding and partially compressing the triceps muscles. The appearance is suspicious for subfascial abscess between the fascia and triceps muscles. This extends the length of the triceps muscles. This collection measures up to 1.6 cm anterior to posterior. Mild heterogeneous abnormal signal and enhancement of the muscles compatible with myositis. There is generalized fluid signal in the subcutaneous soft tissues with partial enhancement compatible with a combination of edema and cellulitis throughout the upper arm. Osseous structures: Normal. No abnormal marrow signal. RIGHT UPPER EXTREMITY/FOREARM: As in the upper extremity there is feathery-appearing fluid-like signal noted throughout the forearm with partial enhancement compatible with a combination of edema and cellulitis. There is a lobulated fluid collection at least partially within the brachialradialis muscle and adjacent extensor muscles proximally beginning at the elbow joint and extending to the forearm over approximately 9 cm craniocaudal, 5 cm transverse and 1 cm AP. The collection appears to extend outside of the muscle deep to the fascia as it extends distally. There is heterogeneous enhancement of the noted muscles compatible with myositis. Remaining muscles of the forearm do not demonstrate any definite enhancement. Full evaluation is limited as we were unable to obtain T2-weighted sequences. No additional visible muscle collection noted. Osseous structures: There is possible ill-defined increased T2 signal in the olecranon which is not completely imaged throughout the examination in multiple planes IMPRESSION: Exam is significantly limited because of difficulties positioning the patient and patient movement. Diffuse generalized abnormality in the subcutaneous soft tissues throughout the right chest, upper arm and forearm compatible with a combination of edema and cellulitis and myositis. As seen on prior CT there are lobulated confluent fluid collections evolving multiple muscle groups and compartments as detailed above including the pectoralis major as well as extending distally within anterior and posterior compartment muscles and between the muscles and fascia in the upper arm consistent with and suspicious for abscesses along with myositis. In the proximal forearm anterolaterally there is a fluid collection at least partially within the brachial radialis and extensor muscles and between these muscles and overlying fascia suspicious for abscess along with adjacent myositis. Question abnormal increased T2 signal in the olecranon not completely assessed on this examination.. No bone erosion. Cannot exclude localized osteomyelitis. The remaining bones throughout the upper and lower extremity appear normal us [place] GARRETT IMG MRI ORDERABLES Final Re sult * ECG 12 lead (04/07/2025 10:00 AM EDT) Ventricular rate 95 BPM EKG [facility] Atrial rate 95 BPM EKG [facility] P-R interval 146 ms EKG [facility] QRS duration 92 ms EKG [facility] Q-T interval 340 ms EKG [facility] QTC calculation (Bazett) 428 ms EKG [facility] P axis 20 degrees EKG [facility] R axis 26 degrees EKG [facility] T axis 36 degrees EKG [facility] 04/07/2025 10:0 0 AM EDT Narrative EKG [facility] - 04/07/2025 11:59 AM EDT Normal sinus rhythm Normal ECG No previous ECGs available Confirmed by MD Stauffer Eric ([id number]) on 04/07/2025 11:58:59 AM Procedure Note Ki Stuaffer MD - 04/07/2025 Normal sinus rhythm Normal ECG No previous ECGs available Confirmed by MD Stauffer Eric ([id number]) on 04/07/2025 11:58:59 AM us Bhavin Parks MD ECG ORDERABLES Final R esult [facility] * CT Upper extremity with contrast-Right (04/07/2025 2:32 AM EDT) Anatomical Region Laterality Modality Arm Right Computed Tomogra phy 04/07/2025 1:32 AM EDT Impressions 04/07/2025 9:29 AM EDT 1. Extensive fluid-like density throughout the subcutaneous soft tissues of the right chest wall, right abdominal wall, right upper extremity and right forearm and hand. This is nonspecific but could reflect edema, cellulitis or a combination of these. This appears to have progressed compared with outside imaging of the right upper extremity dating back to April 02, 2025. 2. There is fluid extending within and along the superficial and deep surface muscles and muscle groups in the right chest/chest wall and right upper extremity compatible with myositis and likely evolving phlegmon or abscesses which has progressed compared with prior outside imaging dating back to April 02, 2025. See details above. No definite involvement of the muscles in the forearm and hand 3. Right lower lobe consolidation and right pleural effusion. Narrative 04/07/2025 9:29 AM EDT EXAMINATION: CT UPPER EXTREMITY WITH CONTRAST, RIGHT CLINICAL INFORMATION: Concern for soft tissue infection of entire right upper extremity. COMPARISON: Outside CTA of the right upper extremity April 02, 2025. TECHNIQUE: CT scan of the right upper extremity was performed with contrast. Reconstruction imaging performed at the acquisition workstation. Contrast dose 80 mL of Omnipaque [address] examination was performed using dose optimization techniques as appropriate, variously including the following: *Automated exposure control *Adjustment of mA and/or kV according to patient size (this includes techniques or standardized protocols for targeted exams where dose is matched to indication/reason for exam; i.e. extremities or head) *Use of iterative reconstruction technique DLP: 1068 mGy-cm FINDINGS The large irowz-ql-atem and positioning limits evaluation. Subcutaneous soft tissues: There is feathery-appearing fluid-like density noted throughout including the right chest wall and into the right side of the abdomen, as well as circumferentially about the shoulder region, right upper extremity, right forearm and into the hand. No gas noted. MUSCLES/TENDONS: Right shoulder and chest region: There is ill-defined lobulated fluid extending within and along the superficial and deep surface of the pectoralis major and minor, coracobrachialis and teres major. In the upper arm, there is additional fluid extension and involvement of the anterior compartment muscles including the biceps, brachialis and brachioradialis along with the overlying subcutaneous soft tissues. There is also fluid extending along the outer aspect of the triceps muscles deep to the fascia the length of the muscle in the upper extremity. In the forearm and hand, there is no definite involvement of the muscles although there is extensive feathery-appearing fluid-like density in the subcutaneous soft tissues. The osseous structures are intact. The chest is also included in the examination. Numerous lymph nodes present within the axilla, likely reactive. There is consolidation in the right lower lobe and a right pleural effusion. Procedure Note Rodriguez Herron MD - 04/07/2025 EXAMINATION: CT UPPER EXTREMITY WITH CONTRAST, RIGHT CLINICAL INFORMATION: Concern for soft tissue infection of entire right upper extremity. COMPARISON: Outside CTA of the right upper extremity April 02, 2025. TECHNIQUE: CT scan of the right upper extremity was performed with contrast. Reconstruction imaging performed at the acquisition workstation. Contrast dose 80 mL of Omnipaque [address] examination was performed using dose optimization techniques as appropriate, variously including the following: *Automated exposure control *Adjustment of mA and/or kV according to patient size (this includes techniques or standardized protocols for targeted exams where dose is matched to indication/reason for exam; i.e. extremities or head) *Use of iterative reconstruction technique DLP: 1068 mGy-cm FINDINGS The large oztox-lm-ztal and positioning limits evaluation. Subcutaneous soft tissues: There is feathery-appearing fluid-like density noted throughout including the right chest wall and into the right side of the abdomen, as well as circumferentially about the shoulder region, right upper extremity, right forearm and into the hand. No gas noted. MUSCLES/TENDONS: Right shoulder and chest region: There is ill-defined lobulated fluid extending within and along the superficial and deep surface of the pectoralis major and minor, coracobrachialis and teres major. In the upper arm, there is additional fluid extension and involvement of the anterior compartment muscles including the biceps, brachialis and brachioradialis along with the overlying subcutaneous soft tissues. There is also fluid extending along the outer aspect of the triceps muscles deep to the fascia the length of the muscle in the upper extremity. In the forearm and hand, there is no definite involvement of the muscles although there is extensive feathery-appearing fluid-like density in the subcutaneous soft tissues. The osseous structures are intact. The chest is also included in the examination. Numerous lymph nodes present within the axilla, likely reactive. There is consolidation in the right lower lobe and a right pleural effusion. IMPRESSION: 1. Extensive fluid-like density throughout the subcutaneous soft tissues of the right chest wall, right abdominal wall, right upper extremity and right forearm and hand. This is nonspecific but could reflect edema, cellulitis or a combination of these. This appears to have progressed compared with outside imaging of the right upper extremity dating back to April 02, 2025. 2. There is fluid extending within and along the superficial and deep surface muscles and muscle groups in the right chest/chest wall and right upper extremity compatible with myositis and likely evolving phlegmon or abscesses which has progressed compared with prior outside imaging dating back to April 02, 2025. See details above. No definite involvement of the muscles in the forearm and hand 3. Right lower lobe consolidation and right pleural effusion. [facility] Myriam De La Fuente PA-C IMG CT ORDERABLES Final Result * (ABNORMAL) Aerobic culture (Gram stain included) (04/07/2025 1:17 AM EDT) Gram stain suggestive of Few neutrophils Many squamous cells Red blood cells No organisms seen 04/07/2025 2:41 AM EDT [facility] Culture Methicillin Resistant Staph aureus (MRSA)(A) 04/11/2025 10:08 AM EDT [facility] Swab, Wound Right elbow region structure / Unknown 04/07/2025 1:17 AM EDT 04/07/2025 1:58 AM EDT Comment:Swab, Wound Narrative Organism Antibiotic Method Susceptibility Methicillin Resistant Staph aureus (MRSA) Cefazolin (REPORT) BACTERIAL MUNA AND INTERPRETATION (MCG/ML) >16: Resistant Methicillin Resistant Staph aureus (MRSA) Clindamycin (REPORT) BACTERIAL MUNA AND INTERPRETATION (MCG/ML) >4: Resistant Comment:Clindamycin result was confirmed by D-test. Methicillin Resistant Staph aureus (MRSA) Erythromycin (REPORT) BACTERIAL MUNA AND INTERPRETATION (MCG/ML) >4: Resistant Methicillin Resistant Staph aureus (MRSA) Minocycline (REPORT) BACTERIAL MUNA AND INTERPRETATION (MCG/ML) <=1: Susceptible Methicillin Resistant Staph aureus (MRSA) Oxacillin (REPORT) BACTERIAL MUNA AND INTERPRETATION (MCG/ML) >4: Resistant Methicillin Resistant Staph aureus (MRSA) Tetracycline (REPORT) BACTERIAL MUNA AND INTERPRETATION (MCG/ML) >8: Resistant Methicillin Resistant Staph aureus (MRSA) Vancomycin (REPORT) BACTERIAL MUNA AND INTERPRETATION (MCG/ML) 1: Susceptible Methicillin Resistant Staph aureus (MRSA) Trimethoprim/Sulfametho xazole (REPORT) BACTERIAL MUNA AND INTERPRETATION (MCG/ML) Susceptible Comment:Trimeth/Sulf a susceptibility performed by disk diffusion. [facility] - GENERAL ORDE [facility] Final Result [facility] [address] [place] [address], [address] [id number] documented in this encounter Visit Diagnoses Diagnosis Hand abscess- Primary Cellulitis and abscess of hand, except fingers and thumb Abscess of arm, right Abscess of arm, right Abscess of left arm Lung nodule Other diseases of lung, not elsewhere classified MRSA bacteremia Infection of wound due to methicillin resistant Staphylococcus aureus (MRSA) Methadone maintenance therapy patient IV drug user Other, mixed, or unspecified nondependent drug abuse, unspecified Difficult intravenous access ADHD documented in this encounter Admitting Diagnoses Diagnosis Hand abscess Cellulitis and abscess of hand, except fingers and thumb documented in this encounter Administered Medications Active Administered Medications - up to 1 most recent administrations Medication Order MAR Action Action Date Dose Rate Site acetaminophen (TYLENOL) tablet 975 mg 975 mg, Oral, Every 6 hours scheduled, First dose on Mon04/13/25 at 0000 Given 04/14/2025 4:45 PM EDT 975 mg albuterol (PROVENTIL) (0.083%) 2.5 mg/3 mL nebulizer solution 2.5 mg 2.5 mg, Nebulization, Every 6 hours PRN, wheezing, shortness of breath, Starting on Mon04/09/25 at 0026, Albuterol or Duoneb Indication: Bronchospasm, Other (use comment) baclofen (LIORESAL) tablet 10 mg 10 mg, Oral, Every 8 hours scheduled, First dose (after last modification) on Mon04/13/25 at 0000 Given 04/14/2025 4:45 PM EDT 10 mg bisacodyl (DULCOLAX) suppository 10 mg 10 mg, Rectal, Daily PRN, constipation, if no bowel movement by day 2, Starting on Mon04/06/25 at 2229 Given 04/09/2025 11:29 AM EDT 10 mg chlorhexidine gluconate 2 % wipes - daily CHG application Topical, Daily, First dose on Mon04/08/25 at 0900, For daily use in patients with Urethral Catheter, Central Line, Jara, or Port-a-Cath. Each pack = 6 wipes. Dose = 1 each. Given 04/13/2025 9:28 PM EDT 1 each clindamycin (CLEOCIN) IVPB 900 mg in 50 mL D5W (premix) 900 mg, Intravenous, Administer over 30 Minutes, Every 8 hours, First dose on Mon04/11/25 at 1330, All antimicrobials used at [facility] require an indication. Please complete the following documentation. Bacterial Infection Documented, Type of Therapy: New Therapy, Indication: Other, Specify: NSI New Bag 04/14/2025 1:21 PM EDT 900 mg 100 mL/hr cloNIDine (CATAPRES) tablet 0.1 mg 0.1 mg, Oral, 2 times daily, First dose (after last modification) on 04/12/25 at 2100, Hold for SBP less than 100 mmHg. Notify provider if a dose is held. Given 04/14/2025 9:34 AM EDT 0.1 mg dextrose 50 % solution 12.5 g 12.5 g, Intravenous, Every 15 min PRN, low blood sugar, between 50 and 69 mg/dL, Starting on Mon04/09/25 at 0403, For patient with IV access who is NPO or unable to swallow. See Hypoglycemia Management guideline. Given 04/09/2025 12:04 PM EDT 12.5 g dextrose 50 % solution 25 g 25 g, Intravenous, Every 15 min PRN, low blood sugar, less than 50 mg/dL, Starting on Mon04/09/25 at 0403, For patient with IV access who is NPO or unable to swallow. See Hypoglycemia Management guideline. folic acid (FOLVITE) tablet 1 mg 1 mg, Oral, Daily, First dose (after last modification) on 04/13/25 at 0900 Given 04/14/2025 9:34 AM EDT 1 mg gabapentin (NEURONTIN) capsule 300 mg 300 mg, Oral, Every 8 hours scheduled, First dose (after last modification) on 04/13/25 at 0000 Given 04/14/2025 4:45 PM EDT 300 mg glucagon (GLUCAGEN) injection 1 mg 1 mg, Intramuscular, Daily PRN, low blood sugar, for Blood Glucose LESS than 70 mg/dL and NPO and no IV access, Starting on Mon04/09/25 at 0403, Glucagon may be repeated x 1 (for a total of 2 doses per hypoglycemic event) if patient remains hypoglycemic after first dose. Do not use with hepatic disease or alcohol intoxication. See Hypoglycemia Management guideline. Reconstitute vial with 1 mL sterile water for injection. glucose (GLUTOSE 15) 40 % oral gel 37.5 g 37.5 g (1 Tube), Oral, Every 15 min PRN, low blood sugar, between 50 and 69 mg/dL, Starting on Mon04/09/25 at 0403, Juice or soda is preferred for alert patients (4 oz juice or 6 oz soda). Use glucose gel for patients with fluid restriction. See Hypoglycemia Management guideline. Each 37.5 gram tube of glucose 40 % = 15 grams of glucose. glucose (GLUTOSE 15) 40 % oral gel 75 g 75 g (2 Tube), Oral, Every 15 min PRN, low blood sugar, less than 50 mg/dL, Starting on Mon04/09/25 at 0403, Juice or soda is preferred for alert patients (8 oz juice or 12 oz soda). Use glucose gel for patients with fluid restriction. See Hypoglycemia Management guideline. Each 37.5 gram tube of glucose 40 % = 15 grams of glucose. heparin (porcine) 5000 unit/mL injection 5,000 Units 5,000 Units, Subcutaneous, Every 8 hours scheduled, First dose (after last modification) on Mon04/13/25 at 1730, For subcutaneous use the injection sites should be rotated (usually left and right portions of the abdomen, above iliac crest). Given 04/14/2025 4:45 PM EDT 5,000 Units Left Anterior Thigh HYDROmorphone (DILAUDID) injection 1 mg 1 mg, Intravenous, Daily PRN, DURING DRESSING CHANGES ONLY, Starting on Mon04/13/25 at 1420, For 5 days, For IV Push, administer over 2 to 3 minutes. Given 04/14/2025 9:46 AM EDT 1 mg HYDROmorphone (DILAUDID) tablet 4 mg 4 mg, Oral, Every 3 hours PRN, moderate to moderately severe pain 4-6, Starting on Mon04/14/25 at 1035, For 7 days Given 04/14/2025 6:10 PM EDT 4 mg HYDROmorphone (DILAUDID) tablet 6 mg 6 mg, Oral, Every 3 hours PRN, severe to excruciating pain 7-10, Starting on Mon04/14/25 at 1035, For 7 days insulin lispro (HumaLOG/ADMELOG) 100 units/mL injection 1-6 Units 1-6 Units, Subcutaneous, Every 4 hours scheduled, First dose on Mon04/09/25 at 0830, DO NOT HOLD IF NPO Notify provider if Blood Glucose LESS than 70 For BG 141-180 administer 1 unit For BG 181-220 administer 2 units For BG 221-260 administer 3 units For BG 261-300 administer 4 units For BG 301-340 administer 5 units For BG MORE than 340, administer 6 units AND notify provider Given 04/14/2025 1:18 PM EDT 1 Units Right Anterior Thigh ketorolac (TORADOL) injection 15 mg 15 mg, Intravenous, Every 6 hours scheduled, First dose (after last modification) on 04/12/25 at 0730, For 4 days, If ordered IV Push: administer undiluted over 2 minutes. Given 04/14/2025 6:10 PM EDT 15 mg labetalol (NORMODYNE,TRANDATE) injection 10 mg 10 mg, Intravenous, Every 4 hours PRN, SBP greater than 160 mmHg, Starting on Yaima 04/10/25 at 2048, Hold for HR less than 45 bpm or SBP less than 90 mmHg or bronchospasm develops. Notify provider if a dose is held. Infuse undiluted over 2 minutes. Given 04/12/2025 3:07 AM EDT 10 mg methadone (DOLOPHINE) tablet 45 mg 45 mg, Oral, Every 8 hours scheduled, First dose (after last modification) on 04/12/25 at 2000, For 15 doses, Dose should be verified prior to first administration for patients attending methadone treatment center., Methadone reason for use: Methadone Maintenance, Verify methadone clinic name: [facility], Confirmation of maintenance dose: 130mg daily, Verify patient name: Molly Beasley, All potent long acting opioid patients require type of therapy. Modification of therapy Given 04/14/2025 1:21 PM EDT 45 mg multivitamin tablet 1 tablet 1 tablet, Oral, Daily, First dose on 04/13/25 at 0900 Given 04/14/2025 9:34 AM EDT 1 tablet naloxegol (MOVANTIK) tablet 12.5 mg 12.5 mg, Oral, Daily before breakfast, First dose (after last modification) on 04/13/25 at 0800, Administer on an empty stomach at least 1 hour prior to or 2 hours after the first meal of the day., Home Med? If Yes, then Naloxegol can be ordered: No, Failed adquate Senokot trail? Yes, Failed adequate Lactulose or Miralax trial? Yes, Failed/Unacceptable stimulant suppository or enema trial? NoIndications:Opioid-I nduced Constipation Given 04/14/2025 9:34 AM EDT 12.5 mg naloxone (NARCAN) 0.4 mg/mL injection 0.4 mg 0.4 mg, Intravenous, Every 5 min PRN, opioid reversal, respiratory depression, Starting on 04/12/25 at 0919, If respiratory rate is less than 8 breaths/minute or patient is difficult to arouse. Stop all narcotics and contact provider. polyethylene glycol (miraLAx) packet 17 g 17 g, Oral, Daily, First dose (after last modification) on 04/13/25 at 0900, Stir and dissolve in 4-8 oz of fluids. Given 04/13/2025 8:52 AM EDT 17 g potassium phosphate and sodium phosphate (K PHOS NEUTRAL) tablet 500 mg 500 mg, Oral, 4 times daily with meals and nightly, First dose on 04/14/25 at 0800, For 4 doses, Administer with a full glass of water. Each tablet contains elemental phosphorus 250 mg (8 mmol), sodium 298 mg (13 mEq), and potassium 45 mg (1.1 mEq). Given 04/14/2025 4:45 PM EDT 500 mg senna-docusate (SENNA-S) 8.6-50 MG tablet 1 tablet 1 tablet, Oral, Nightly, First dose (after last modification) on 04/13/25 at 2100, Hold for diarrhea Given 04/13/2025 9:28 PM EDT 1 tablet thiamine mononitrate (VITAMIN B-1) tablet 100 mg 100 mg, Oral, Daily, First dose on 04/13/25 at 0900 Given 04/14/2025 9:34 AM EDT 100 mg vancomycin (VANCOCIN) IV dosing PER PHARMACY PROTOCOL This is place-fiore medication for pharmacy to manage vancomycin therapy according to the [facility] protocol. When therapy is no longer needed, the provider must discontinue the protocol and medication order., Previous therapy: Yes (> 1 dose given; continuation from outside facility, outpatient infusion, or current admission), Reason for Therapy: Bacterial Infection Documented, Type of Therapy: Continued from [facility], Indication: Bacteremia, Other, Specify: NSI vancomycin (VANCOCIN) 1,250 mg in sodium chloride (NS) 0.9 % 250 mL IVPB-WTD 1,250 mg, Intravenous, Administer over 90 Minutes, Every 12 hours, First dose on Mon04/12/25 at 0130, All antimicrobials used at [facility] require an indication. Please complete the following documentation. Bacterial Infection Documented, Type of Therapy: Continued from [facility], Indication: Bacteremia, Other, Specify: NSI New Bag 04/14/2025 2:34 PM EDT 1,250 mg 166.7 mL/hr Inactive Administered Medications - up to 1 most recent administrations Medication Order MAR Action Action Date Dose Rate Site lactated ringers (LR) infusion 100 mL/hr, Intravenous, Continuous, Starting on Mon04/06/25 at 2230 Rate/Dose Verify 04/09/2025 11:00 AM EDT 100 mL/hr 100 mL/hr lactated ringers (LR) infusion 50 mL/hr, Intravenous, Continuous, Starting on Mon04/09/25 at 1800 Rate/Dose Verify 04/13/2025 12:00 AM EDT 50 mL/hr 50 mL/hr lactated ringers (LR) infusion 10 mL/hr, Intravenous, Continuous, Starting on Mon04/13/25 at 0130, Carrier for dPCA Rate/Dose Verify 04/13/2025 2:00 PM EDT 10 mL/hr 10 mL/hr acetaminophen (TYLENOL) 160 mg/5 mL solution 975 mg 975 mg, Feeding Tube, Every 6 hours scheduled, First dose (after last modification) on Mon04/08/25 at 2200 Given 04/12/2025 12:32 PM EDT 975 mg acetaminophen (TYLENOL) tablet 650 mg 650 mg, Oral, Every 6 hours PRN, mild pain 1-3, fever greater than 100.4 degrees F, Starting on Mon04/06/25 at 2356 Given 04/07/2025 6:23 PM EDT 650 mg acetaminophen (TYLENOL) tablet 975 mg 975 mg, Oral, Every 8 hours scheduled, First dose (after last modification) on Mon04/08/25 at 0930 Given 04/08/2025 2:16 PM EDT 975 mg baclofen (LIORESAL) tablet 10 mg 10 mg, Oral, 3 times daily, First dose on Mon04/08/25 at 1030 Given 04/08/2025 10:13 PM EDT 10 mg baclofen (LIORESAL) tablet 10 mg 10 mg, Feeding Tube, Every 8 hours scheduled, First dose (after last modification) on Mon04/09/25 at 0600 Given 04/12/2025 3:47 PM EDT 10 mg calcium gluconate IVPB 1 g in 50 mL 0.67% NaCl PREMIX 1 g, Intravenous, at 50 mL/hr, Once, On Mon04/08/25 at 2300, For 1 dose New Bag 04/09/2025 12:27 AM EDT 1 g 50 mL/hr calcium gluconate IVPB 2 g in 100 mL NS PREMIX 2 g, Intravenous, at 100 mL/hr, Once, On Mon04/11/25 at 0200, For 1 dose New Bag 04/11/2025 2:02 AM EDT 2 g 100 mL/hr chlorhexidine (PERIDEX) 0.12 % oral solution 15 mL 15 mL, Mouth/Throat, 2 times daily, First dose on Mon04/08/25 at 2130, Swab lips and mouth Given 04/11/2025 8:34 PM EDT 15 mL chlorhexidine gluconate 2 % wipes - daily CHG application Topical, Daily, First dose on Mon04/09/25 at 2100, Intra-op, For daily use in patients with Urethral Catheter, Central Line, Jara, or Port-a-Cath. Each pack = 6 wipes. Dose = 1 each. Given 04/11/2025 11:58 PM EDT 1 each clindamycin (CLEOCIN) IVPB 900 mg in 50 mL D5W (premix) 900 mg, Intravenous, Administer over 30 Minutes, Once, On 04/07/25 at 1030, For 1 dose, All antimicrobials used at [facility] require an indication. Please complete the following documentation. Bacterial Infection Suspected, Type of Therapy: Modification of Therapy, Indication: Other, Specify: abscess New Bag 04/08/2025 12:12 AM EDT 900 mg 100 mL/hr cloNIDine (CATAPRES) tablet 0.1 mg 0.1 mg, Oral, 2 times daily, First dose on Yaima 04/10/25 at 1030, Hold for SBP less than 100 mmHg. Notify provider if a dose is held. Given 04/11/2025 8:54 AM EDT 0.1 mg cloNIDine (CATAPRES) tablet 0.1 mg 0.1 mg, Feeding Tube, 2 times daily, First dose (after last modification) on Mon04/11/25 at 2100, Hold for SBP less than 100 mmHg. Notify provider if a dose is held. Given 04/12/2025 8:58 AM EDT 0.1 mg dextrose 5 % in lactated ringers (D5LR) infusion 100 mL/hr, Intravenous, Continuous, Starting on Mon04/09/25 at 1200 Rate/Dose Verify 04/09/2025 5:00 PM EDT 100 mL/hr 100 mL/hr dextrose 5% in lactated ringers (D5LR) 5 % infusion - ADS Override Pull Starting on Mon04/09/25 at 1145, For 1 dose, Jacque Nguyen: cabinet override fentaNYL (SUBLIMAZE) 100 mcg/2 mL injection - ADS Override Pull Starting on Mon04/09/25 at 1828, For 1 dose, Alexandrea Gottlieb: cabinet override For IV Push, administer over 3 minutes. fentaNYL (SUBLIMAZE) 100 mcg/2 mL injection 50 mcg 50 mcg, Intravenous, Once, On Mon04/09/25 at 1900, For 1 dose, If administered IV Push, dilute with 10 mL of NS and administer over 3 minutes. For IV Push, administer over 3 minutes. Given 04/09/2025 6:40 PM EDT 50 mcg folic acid (FOLVITE) tablet 1 mg 1 mg, Feeding Tube, Daily, First dose on Mon04/11/25 at 0900 Given 04/12/2025 8:58 AM EDT 1 mg gabapentin (NEURONTIN) capsule 300 mg 300 mg, Oral, 3 times daily, First dose on Mon04/08/25 at 0930 Given 04/08/2025 10:13 PM EDT 300 mg gabapentin (NEURONTIN) capsule 300 mg 300 mg, Feeding Tube, Every 8 hours scheduled, First dose (after last modification) on Mon04/09/25 at 0600 Given 04/12/2025 3:47 PM EDT 300 mg gadobutrol (GADAVIST) injection 7.6 mL 7.6 mL (rounded from 7.5 mL), Intravenous, Once in imaging, contrast, Starting on Mon04/07/25 at 1244, For 1 dose, Radiology Appointment Given 04/07/2025 12:45 PM EDT 7.6 mL heparin (porcine) 5000 unit/mL injection 5,000 Units 5,000 Units, Subcutaneous, Every 8 hours scheduled, First dose on Mon04/08/25 at 0830, For subcutaneous use the injection sites should be rotated (usually left and right portions of the abdomen, above iliac crest). Given 04/13/2025 8:52 AM EDT 5,000 Units Left Anterior Thigh hydrALAZINE (APRESOLINE) injection 10 mg 10 mg, Intravenous, Every 4 hours PRN, SBP greater than 160 mmHg, Starting on Mon04/09/25 at 1810, Hold for SBP less than 100 mmHg. Notify provider if a dose is held. For IV bolus doses 5 - 20 mg, infuse undiluted over 5 minutes. Given 04/10/2025 11:38 AM EDT 10 mg hydrALAZINE (APRESOLINE) injection 10 mg 10 mg, Intravenous, Once, On 04/12/25 at 1100, For 1 dose, Hold for SBP less than 100 mmHg. Notify provider if a dose is held. For IV bolus doses 5 - 20 mg, infuse undiluted over 5 minutes. Given 04/12/2025 10:55 AM EDT 10 mg hydrALAZINE (APRESOLINE) injection 5 mg 5 mg, Intravenous, Once, On 04/12/25 at 0500, For 1 dose, Hold for SBP less than 100 mmHg. Notify provider if a dose is held. For IV bolus doses 5 - 20 mg, infuse undiluted over 5 minutes. Given 04/12/2025 5:46 AM EDT 5 mg HYDROmorphone (DILAUDID) 1 mg/mL injection - ADS Override Pull Starting on Mon04/09/25 at 1806, For 1 dose, Jacque Nguyen: cabinet override For IV Push, administer over 2 to 3 minutes. HYDROmorphone (DILAUDID) 1 mg/mL EXTERIOR DOOR INSTALLER syringe (premix) Intravenous, EXTERIOR DOOR INSTALLER dose (mg): 0.3, Lockout interval: 10 min, Continuous rate (mg/hr): 0, Max limit in four hours (mg): 7.2, Loading dose (mg): 0 New Syringe/Cartr idge 04/12/2025 11:18 AM EDT HYDROmorphone (DILAUDID) 1 mg/mL EXTERIOR DOOR INSTALLER syringe (premix) Intravenous, EXTERIOR DOOR INSTALLER dose (mg): 0.2, Lockout interval: 10 min, Continuous rate (mg/hr): 0, Max limit in four hours (mg): 4.8, Loading dose (mg): 0 New Syringe/Cartr idge 04/12/2025 3:41 PM EDT HYDROmorphone (DILAUDID) 2 mg/mL injection 0.6 mg 0.6 mg, Intravenous, Every 10 min PRN, moderate to moderately severe pain 4-6, Starting on Mon04/07/25 at 1633, For 7 days, PACU (only), If a total of 4 mg has been administered across all pain scales, contact an anesthesia provider for reassessment For IV Push, administer over 2 to 3 minutes. Given 04/07/2025 5:35 PM EDT 0.6 mg HYDROmorphone (DILAUDID) 2 mg/mL injection 0.8 mg 0.8 mg, Intravenous, Every 10 min PRN, severe to excruciating pain 7-10, Starting on Mon04/07/25 at 1633, For 7 days, PACU (only), If a total of 4 mg has been administered across all pain scales, contact an anesthesia provider for reassessment For IV Push, administer over 2 to 3 minutes. Given 04/07/2025 4:45 PM EDT 0.8 mg HYDROmorphone (DILAUDID) injection 0.5 mg 0.5 mg, Intravenous, Once, On 04/12/25 at 1700, For 1 dose, For IV Push, administer over 2 to 3 minutes. Given 04/12/2025 4:58 PM EDT 0.5 mg HYDROmorphone (DILAUDID) injection 0.5 mg 0.5 mg, Intravenous, Once, On 04/12/25 at 1730, For 1 dose, For IV Push, administer over 2 to 3 minutes. Given 04/12/2025 5:25 PM EDT 0.5 mg HYDROmorphone (DILAUDID) injection 0.5 mg 0.5 mg, Intravenous, Once, On Mon04/14/25 at 1330, For 1 dose, For IV Push, administer over 2 to 3 minutes. Given 04/14/2025 1:18 PM EDT 0.5 mg HYDROmorphone (DILAUDID) injection 1 mg 1 mg, Intravenous, Every 3 hours PRN, severe to excruciating pain 7-10, Starting on Mon04/06/25 at 2229, For 7 days, Patient is judged to be a standard adult Use ONLY if patient cannot tolerate PO For IV Push, administer over 2 to 3 minutes. Given 04/08/2025 8:45 AM EDT 1 mg HYDROmorphone (DILAUDID) injection 1 mg 1 mg, Intravenous, Once, On Mon04/08/25 at 2100, For 1 dose, For IV Push, administer over 2 to 3 minutes. Given 04/08/2025 10:08 PM EDT 1 mg HYDROmorphone (DILAUDID) injection 1 mg 1 mg, Intravenous, Every 1 hour prn, CPOT > 2, for breakthrough pain (CPOT > 2), Starting on Mon04/08/25 at 2049, For 7 days, For IV Push, administer over 2 to 3 minutes. Given 04/11/2025 2:04 PM EDT 1 mg HYDROmorphone (DILAUDID) injection 1 mg 1 mg, Intravenous, Once, On Mon04/09/25 at 1830, For 1 dose, For IV Push, administer over 2 to 3 minutes. Given 04/09/2025 6:12 PM EDT 1 mg HYDROmorphone (DILAUDID) injection 1 mg 1 mg, Intravenous, Once, On Mon04/11/25 at 1030, For 1 dose, For IV Push, administer over 2 to 3 minutes. Given 04/11/2025 10:23 AM EDT 1 mg HYDROmorphone (DILAUDID) injection 1 mg 1 mg, Intravenous, Once, On Mon04/13/25 at 1230, For 1 dose, For IV Push, administer over 2 to 3 minutes. Given 04/13/2025 12:40 PM EDT 1 mg HYDROmorphone (DILAUDID) IV infusion 50 mg in 50 mL NS (1 mg/mL) (premix) 1 mg/hr (1 mL/hr), Intravenous, Continuous, Starting on Mon04/08/25 at 2100, For 7 days, Starting dose: 1 mg/hr or as specified in dose field. If pain is still present (CPOT > 2) despite 2 or more bolus doses in 8 hours, contact provider to adjust basal rate. Rate/Dose Verify 04/11/2025 12:00 PM EDT 1 mg/hr 1 mL/hr HYDROmorphone (DILAUDID) tablet 6 mg 6 mg, Oral, Every 3 hours PRN, severe to excruciating pain 7-10, Starting on Mon04/08/25 at 0922, For 3 days Given 04/08/2025 2:17 PM EDT 6 mg iohexol (OMNIPAQUE) 350 mg/mL injection 150 mL 150 mL, Intravenous, Once in imaging, contrast, Starting on Mon04/09/25 at 0043, For 1 dose, Radiology Appointment Given 04/09/2025 12:44 AM EDT 150 mL iohexol (OMNIPAQUE) 350 mg/mL injection 80 mL 80 mL, Intravenous, Once in imaging, contrast, Starting on Mon04/07/25 at 0232, For 1 dose, Radiology Appointment Given 04/07/2025 2:32 AM EDT 80 mL Left Arm iohexol (OMNIPAQUE) 350 mg/mL injection 80 mL 80 mL, Intravenous, Once in imaging, contrast, Starting on Mon04/07/25 at 1311, For 1 dose, Radiology Appointment Given 04/07/2025 1:12 PM EDT 80 mL ketamine 1000 mg in 100 mL NS infusion (10 mg/mL) (premix) 5 mcg/kg/min 75.2 kg (2.256 mL/hr, rounded to 2.3 mL/hr), Intravenous, Continuous, Starting on Yaima 04/10/25 at 1100, For analgesia. Max dose for analgesia is 16 mcg/kg/min. Continuous IV infusions of ketamine are restricted to ICU or equivalent setting, excluding palliative care patients. Rate changes require new order. Rate/Dose Verify 04/12/2025 6:00 AM EDT 5 mcg/kg/min 2.3 mL/hr ketorolac (TORADOL) injection 15 mg 15 mg, Intravenous, Every 8 hours scheduled, First dose (after last modification) on Mon04/08/25 at 2200, For 14 doses, If ordered IV Push: administer undiluted over 2 minutes. Given 04/08/2025 10:13 PM EDT 15 mg ketorolac (TORADOL) injection 15 mg 15 mg, Intravenous, Every 8 hours PRN, moderate to moderately severe pain 4-6, Starting on Mon04/09/25 at 0530, For 5 days, If ordered IV Push: administer undiluted over 2 minutes. Given 04/11/2025 11:59 PM EDT 15 mg ketorolac (TORADOL) injection 30 mg 30 mg, Intravenous, Every 8 hours PRN, moderate to moderately severe pain 4-6, severe to excruciating pain 7-10, Starting on Mon04/07/25 at 0230, For 5 days, If ordered IV Push: administer undiluted over 2 minutes. Given 04/07/2025 5:12 PM EDT 30 mg labetalol (NORMODYNE,TRANDATE) 5 mg/mL injection - ADS Override Pull Starting on Yaima 04/10/25 at 1306, For 1 dose, Jacque Nguyen: cabinet override Infuse undiluted over 2 minutes. labetalol (NORMODYNE,TRANDATE) injection 10 mg 10 mg, Intravenous, Once, On Yaima 04/10/25 at 1330, For 1 dose, Hold for HR less than 45 bpm or SBP less than 90 mmHg or bronchospasm develops. Notify provider if a dose is held. Infuse undiluted over 2 minutes. Given 04/10/2025 1:13 PM EDT 10 mg labetalol (NORMODYNE,TRANDATE) injection 10 mg 10 mg, Intravenous, Once, On Yaima 04/10/25 at 1400, For 1 dose, Hold for HR less than 45 bpm or SBP less than 90 mmHg or bronchospasm develops. Notify provider if a dose is held. Infuse undiluted over 2 minutes. Given 04/10/2025 1:40 PM EDT 10 mg lidocaine preservative free (XYLOCAINE-MPF) 1 % injection 10 mL 10 mL, Intradermal, Once, On Mon04/07/25 at 0100, For 1 dose Given 04/07/2025 12:54 AM EDT 10 mL linezolid (ZYVOX) IVPB 600 mg in 300 mL D5W (premix) 600 mg, Intravenous, Administer over 60 Minutes, Every 12 hours, First dose on Mon04/09/25 at 1130, You have selected a restricted antimicrobial, please complete the following required documentation. Bacterial Infection Documented, Type of Therapy: Modification of Therapy, Indication: Other, Specify: Staph wound infection with with OR x 2 so far, Please document the authorizing Infectious Disease provider: Infectious Disease Physician, Specify Approving Provider: Dr. Perez New Bag 04/11/2025 12:14 PM EDT 600 mg 300 mL/hr magnesium sulfate IVPB 1 g in 100 mL D5W (premix) 1 g, Intravenous, Administer over 30 Minutes, Once, On Mon04/09/25 at 1430, For 1 dose New Bag 04/09/2025 5:41 PM EDT 1 g 200 mL/hr magnesium sulfate IVPB 2 g in 50 mL SW PREMIX 2 g, Intravenous, Administer over 60 Minutes, Once, On Mon04/11/25 at 0200, For 1 dose New Bag 04/11/2025 2:02 AM EDT 2 g 50 mL/hr methadone (DOLOPHINE) tablet 130 mg 130 mg, Oral, Daily, First dose on Mon04/07/25 at 0900, For 7 days, Dose should be verified prior to first administration for patients attending [facility] [place]., Methadone reason for use: Methadone Maintenance, Verify methadone clinic name: [facility], Confirmation of maintenance dose: 130 mg, Verify patient name: Molly Beasley, All potent long acting opioid patients require type of therapy. Continuation of therapy Given 04/08/2025 8:37 AM EDT 130 mg methadone (DOLOPHINE) tablet 130 mg 130 mg, Feeding Tube, Daily, First dose (after last modification) on Mon04/09/25 at 0900, For 5 doses, Dose should be verified prior to first administration for patients attending [facility] [place]., Methadone reason for use: Methadone Maintenance, Verify methadone clinic name: [facility], Confirmation of maintenance dose: 130 mg, Verify patient name: Molly Beasley, All potent long acting opioid patients require type of therapy. Continuation of therapy Given 04/10/2025 8:39 AM EDT 130 mg methadone (DOLOPHINE) tablet 45 mg 45 mg, Feeding Tube, Every 8 hours scheduled, First dose (after last modification) on Mon04/12/25 at 1200, For 16 doses, Dose should be verified prior to first administration for patients attending methadone treatment center., Methadone reason for use: Methadone Maintenance, Verify methadone clinic name: [facility], Confirmation of maintenance dose: 130mg daily, Verify patient name: Molly Beasley, All potent long acting opioid patients require type of therapy. Modification of therapy Given 04/12/2025 12:34 PM EDT 45 mg methadone (DOLOPHINE) tablet 50 mg 50 mg, Oral, Every 8 hours scheduled, First dose on Yaima 04/10/25 at 2000, For 7 days, Dose should be verified prior to first administration for patients attending methadone treatment center., Methadone reason for use: Treatment of Pain, All potent long acting opioid patients require type of therapy. Modification of therapy Given 04/11/2025 4:53 AM EDT 50 mg methadone (DOLOPHINE) tablet 60 mg 60 mg, Feeding Tube, Every 8 hours scheduled, First dose (after last modification) on Mon04/11/25 at 1200, For 19 doses, Dose should be verified prior to first administration for patients attending methadone treatment center., Methadone reason for use: Treatment of Pain, All potent long acting opioid patients require type of therapy. Modification of therapy Given 04/12/2025 3:55 AM EDT 60 mg multivitamin with minerals (CEROVITE) liquid 15 mL 15 mL, Feeding Tube, Daily, First dose on Mon04/11/25 at 0900 Given 04/12/2025 8:57 AM EDT 15 mL naloxegol (MOVANTIK) tablet 25 mg 25 mg, Oral, Daily before breakfast, First dose (after last modification) on Yaima 04/10/25 at 0730, Administer on an empty stomach at least 1 hour prior to or 2 hours after the first meal of the day., Home Med? If Yes, then Naloxegol can be ordered: No, Failed adquate Senokot trail? Yes, Failed adequate Lactulose or Miralax trial? Yes, Failed/Unacceptable stimulant suppository or enema trial? NoIndications:Opioid- Induced Constipation Given 04/11/2025 6:24 AM EDT 25 mg naloxegol (MOVANTIK) tablet 25 mg 25 mg, Feeding Tube, Daily before breakfast, First dose (after last modification) on Mon04/12/25 at 0800, Administer on an empty stomach at least 1 hour prior to or 2 hours after the first meal of the day., Home Med? If Yes, then Naloxegol can be ordered: No, Failed adquate Senokot trail? Yes, Failed adequate Lactulose or Miralax trial? Yes, Failed/Unacceptable stimulant suppository or enema trial? NoIndications:Opioid- Induced Constipation Given 04/12/2025 8:58 AM EDT 25 mg NIFEdipine (PROCARDIA) immediate release capsule 10 mg 10 mg, Oral, Every 8 hours scheduled, First dose on Mon04/12/25 at 1400, Hold for SBP less than 120 mmHg. Notify provider if a dose is held. *DO NOT CHEW, CRUSH, OR OPEN CAPSULE* Given 04/12/2025 3:47 PM EDT 10 mg PANTOprazole (PROTONIX) injection 40 mg 40 mg, Intravenous, Daily, First dose on Mon04/09/25 at 0900, Reconstitute each 40 mg vial with 10 ml NS and administer over 2 minutes Given 04/12/2025 8:51 AM EDT 40 mg piperacillin-tazobact am (ZOSYN) 4.5 g in sodium chloride-MBP (NS) 100 mL IVPB-MBP 4.5 g, Intravenous, Administer over 3 Hours, Every 6 hours, First dose on Mon04/07/25 at 1030, All antimicrobials used at [facility] require an indication. Please complete the following documentation. Bacterial Infection Suspected, Type of Therapy: Modification of Therapy, Indication: Other, Specify: Abscess New Bag 04/11/2025 6:24 AM EDT 4.5 g 33.3 mL/hr polyethylene glycol (miraLAx) packet 17 g 17 g, Feeding Tube, Daily, First dose on Mon04/09/25 at 0900, Stir and dissolve in 4-8 oz of fluids. Given 04/12/2025 8:58 AM EDT 17 g potassium chloride (KLOR-CON M20) CR tablet 20 mEq 20 mEq, Oral, Every 2 hours, First dose on Mon04/14/25 at 0600, For 2 doses, Swallow tablets whole; do not crush, chew, or suck on tablet. Take with meals and a full glass of water or other liquid to minimize the risk of GI irritation. Given 04/14/2025 9:34 AM EDT 20 mEq potassium chloride (KLOR-CON) packet 20 mEq 20 mEq, Feeding Tube, Every 2 hours, First dose on Mon04/09/25 at 0530, For 2 doses, Dissolve contents of 1 packet in 4 ounces of water. Given 04/09/2025 8:36 AM EDT 20 mEq potassium chloride (KLOR-CON) packet 20 mEq 20 mEq, Feeding Tube, Every 2 hours, First dose on Mon04/11/25 at 0200, For 2 doses, Dissolve contents of 1 packet in 4 ounces of water. Given 04/11/2025 4:53 AM EDT 20 mEq potassium chloride IVPB 10 mEq in 100 mL SW (premix) 10 mEq, Intravenous, at 100 mL/hr, Every 1 hour, First dose on Mon04/08/25 at 0900, For 3 doses New 04/08/2025 11:58 AM EDT 10 mEq 100 mL/hr potassium chloride IVPB 10 mEq in 100 mL SW (premix) 10 mEq, Intravenous, at 100 mL/hr, Once, On Mon04/09/25 at 1430, For 1 dose New 04/09/2025 5:40 PM EDT 10 mEq 100 mL/hr potassium chloride IVPB 10 mEq in 100 mL SW (premix) 10 mEq, Intravenous, at 100 mL/hr, Once, On Mon04/09/25 at 1530, For 1 dose New 04/09/2025 6:57 PM EDT 10 mEq 100 mL/hr potassium chloride IVPB 10 mEq in 100 mL SW (premix) 10 mEq, Intravenous, at 100 mL/hr, Once, On Mon04/12/25 at 0200, For 1 dose New 04/12/2025 2:25 AM EDT 10 mEq 100 mL/hr potassium chloride IVPB 10 mEq in 100 mL SW (premix) 10 mEq, Intravenous, at 100 mL/hr, Once, On Mon04/12/25 at 0300, For 1 dose New Bag 04/12/2025 3:41 AM EDT 10 mEq 100 mL/hr potassium chloride IVPB 10 mEq in 100 mL SW (premix) 10 mEq, Intravenous, at 100 mL/hr, Once, On Mon04/12/25 at 0400, For 1 dose New 04/12/2025 4:44 AM EDT 10 mEq 100 mL/hr potassium chloride IVPB 20 mEq in 100 mL SW premix (central line) 20 mEq, Intravenous, at 100 mL/hr, Once, On 04/13/25 at 0130, For 1 dose, FOR CENTRAL LINE ADMINISTRATION ONLY Cardiac monitoring required when administering more than 10 mEq/hr New Bag 04/13/2025 2:59 AM EDT 20 mEq 100 mL/hr potassium chloride IVPB 20 mEq in 100 mL SW premix (central line) 20 mEq, Intravenous, at 100 mL/hr, Once, On 04/13/25 at 0230, For 1 dose, FOR CENTRAL LINE ADMINISTRATION ONLY Cardiac monitoring required when administering more than 10 mEq/hr New Bag 04/13/2025 5:15 AM EDT 20 mEq 100 mL/hr potassium chloride IVPB 20 mEq in 100 mL SW premix (central line) 20 mEq, Intravenous, at 100 mL/hr, Once, On 04/13/25 at 0130, For 1 dose, FOR CENTRAL LINE ADMINISTRATION ONLY Cardiac monitoring required when administering more than 10 mEq/hr New Bag 04/13/2025 1:55 AM EDT 20 mEq 100 mL/hr potassium chloride IVPB 20 mEq in 100 mL SW premix (central line) 20 mEq, Intravenous, at 100 mL/hr, Once, On 04/13/25 at 0230, For 1 dose, FOR CENTRAL LINE ADMINISTRATION ONLY Cardiac monitoring required when administering more than 10 mEq/hr New Bag 04/13/2025 4:04 AM EDT 20 mEq 100 mL/hr propofol (diPRIvan) 1000 MG/100ML injection 5-75 mcg/kg/min 73.7 kg (2.211-33.165 mL/hr, rounded to 2.2-33.2 mL/hr), Intravenous, Titrated, Starting on Mon04/08/25 at 2130, Starting Dose: 50 mcg/kg/min or as specified in dose field. If patient less than 71 kg: titrate by 5 mcg/kg/min every 5 minutes. If patient 71 kg or greater: titrate by 10 mcg/kg/min every 5 minutes. Titration Goal: RASS between -2 and 0 Maximum Dose: 75 mcg/kg/min or as specified in dose field. Do not use if contamination is suspected. Do not administer through the same IV catheter with blood or plasma. *Shake well before using* Rate/Dose Verify 04/12/2025 5:00 AM EDT 10 mcg/kg/min 4.4 mL/hr propofol (diPRIvan) IV bolus from bottle via smart pump 10 mg 10 mg, Intravenous, Every 5 min PRN, RASS +1 until ordered RASS achieved, Starting on Mon04/08/25 at 2117, Notify provider if 3 bolus doses given. Given 04/09/2025 6:40 PM EDT 10 mg propofol (diPRIvan) IV bolus from bottle via smart pump 20 mg 20 mg, Intravenous, Every 5 min PRN, RASS +2 or greater and may titrate infusion up per titration guidelines, Starting on Mon04/08/25 at 2117, Notify provider if 3 bolus doses given. Given 04/09/2025 3:41 AM EDT 20 mg propofol (diPRIvan) IV infusion Intravenous, Continuous PRN, Starting on Mon04/08/25 at 2015, Anesthesia Intra-op Rate/Dose Verify 04/08/2025 8:40 PM EDT 33.165 mL/hr protein supplement feeding tube flush (PROSOURCE TF) 1.5 oz 1.5 oz, Feeding Tube, 2 times daily, First dose on Mon04/11/25 at 0100, 1.5 Ounce = 1 packet Given 04/12/2025 8:59 AM EDT 1.5 oz senna-docusate (SENNA-S) 8.6-50 MG tablet 2 tablet 2 tablet, Oral, Nightly, First dose on Mon04/06/25 at 2230, Hold for diarrhea Given 04/08/2025 10:13 PM EDT 2 tablets senna-docusate (SENNA-S) 8.6-50 MG tablet 2 tablet 2 tablet, Feeding Tube, 2 times daily, First dose (after last modification) on Mon04/09/25 at 0900, Hold for diarrhea Given 04/12/2025 8:36 PM EDT 2 tablets sodium chloride (NS) 0.9 % infusion - ADS Override Pull Starting on 04/07/25 at 0354, For 1 dose, Alanis Abad: cabinet override New Bag 04/07/2025 4:03 AM EDT 250 mL sodium chloride (NS) 0.9 % infusion - ADS Override Pull Starting on Mon04/08/25 at 0024, For 1 dose, PratherMillie webster: cabinet override New Bag 04/08/2025 12:35 AM EDT 250 mL sodium chloride (NS) 0.9 % infusion - ADS Override Pull Starting on Mon04/09/25 at 1816, For 1 dose, Jacque Nguyen: cabinet override New Bag 04/09/2025 6:57 PM EDT 100 mL sodium chloride (NS) 0.9 % infusion - ADS Override Pull Starting on Yaima 04/10/25 at 0434, For 1 dose, Lucero Loomis: cabinet override New Bag 04/10/2025 5:22 AM EDT 50 mL sodium phosphate IVPB 30 mmol in 250 mL NS (central line) 30 mmol, Intravenous, at 43.3 mL/hr, Once, On Mon04/13/25 at 0130, For 1 dose, FOR CENTRAL LINE ADMINISTRATION ONLY New Bag 04/13/2025 4:04 AM EDT 30 mmol 43.3 mL/hr thiamine mononitrate (VITAMIN B-1) tablet 200 mg 200 mg, Feeding Tube, Daily, First dose on Mon04/11/25 at 0900 Given 04/12/2025 8:58 AM EDT 200 mg vancomycin (VANCOCIN) 1,250 mg in sodium chloride (NS) 0.9 % 250 mL IVPB-WTD 1,250 mg, Intravenous, Administer over 90 Minutes, Every 12 hours, First dose on Mon04/07/25 at 0100, All antimicrobials used at [facility] require an indication. Please complete the following documentation. 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 Please complete the following documentation. Bacterial Infection Documented, Type of Therapy: Continued from MEDICAL OPERATIONS SUPERVISOR, Indication: Bacteremia, Other, Specify: NSI New Bag 04/11/2025 3:27 PM EDT 1,750 mg 267.5 mL/hr documented in this encounter Active and Recently Administered Medications Times are shown in EDT. Scheduled Medication Order 04/12/2025 04/13/2025 04/14/2025 acetaminophen (TYLENOL) 160 mg/5 mL solution 975 mg (CANCELED) 975 mg, Feeding Tube, Every 6 hours scheduled, First dose (after last modification) on Mon04/08/25 at 2200 0518 (Not Given - Provider: Bianca Corcoran RN - Reason: Other - Comment required - Comment: cumulative overdose)1232 (Given - Provider: Mandie Carranza RN)1741 (Not Given - Provider: Mandie Carranza RN - Reason: Patient/family refused) acetaminophen (TYLENOL) tablet 975 mg 975 mg, Oral, Every 6 hours scheduled, First dose on Mon04/13/25 at 0000 0011 (Given - Provider: Patrick Loomis RN)0614 (Given - Provider: Patrick Loomis RN)1155 (Given - Provider: Mandie Carranza RN)1531 (MAR Hold - Provider: Automatic Transfer Provider - Reason: Unreviewed Transfer Orders)1634 (MAR Unhold - Provider: Alanis Franco MD)1712 (Given - Provider: Myrna Ruiz RN) 0046 (Given - Provider: Dayana Adkins RN)0934 (Given - Provider: Ophelia Soto RN)1645 (Given - Provider: Ophelia Soto RN)2130 (Due - Provider: Ophelia Soto RN) baclofen (LIORESAL) tablet 10 mg (CANCELED) 10 mg, Feeding Tube, Every 8 hours scheduled, First dose (after last modification) on Mon04/09/25 at 0600 0857 (Given - Provider: Mandie Carranza RN)1547 (Given - Provider: Mandie Carranza RN) baclofen (LIORESAL) tablet 10 mg 10 mg, Oral, Every 8 hours scheduled, First dose (after last modification) on Mon04/13/25 at 0000 0011 (Given - Provider: Patrick Loomis RN)0852 (Given - Provider: Mandie Carranza ANMOL)1531 (MAR Hold - Provider: Automatic Transfer Provider - Reason: Unreviewed Transfer Orders)1600 (Not Given - Provider: Myrna Ruiz RN - Reason: See Provider Order)1634 (MAR Unhold - Provider: Alanis Franco MD) 0046 (Given - Provider: Dayana Adkins, ANMOL)0933 (Given - Provider: Ophelia Soto, RN)1645 (Given - Provider: Ophelia Soto, ANMOL) chlorhexidine gluconate 2 % wipes - daily CHG application Topical, Daily, First dose on Mon04/08/25 at 0900, For daily use in patients with Urethral Catheter, Central Line, Jara, or Port-a-Cath. Each pack = 6 wipes. Dose = 1 each. 2200 (Given - Provider: Patrick Loomis RN) 1531 (MAR Hold - Provider: Automatic Transfer Provider - Reason: Unreviewed Transfer Orders)1634 (MAR Unhold - Provider: Alanis Franco MD)2128 (Given - Provider: Dayana Adkins RN) 2300 (Due - Provider: Ninfa Javed RN) clindamycin (CLEOCIN) IVPB 900 mg in 50 mL D5W (premix) 900 mg, Intravenous, Administer over 30 Minutes, Every 8 hours, First dose on Mon04/11/25 at 1330, All antimicrobials used at [facility] require an indication. Please complete the following documentation. Bacterial Infection Documented, Type of Therapy: New Therapy, Indication: Other, Specify: NSI 0519 (New Bag - Provider: Bianca Corcoran RN)1234 (New Bag - Provider: Mandie Carranza, ANMOL)2041 (New Bag - Provider: Patrick Loomis RN) 0516 (New Bag - Provider: Patrick Loomis, ANMOL)1240 (New Bag - Provider: Mandie Carranza, ANMOL)1531 (MAR Hold - Provider: Automatic Transfer Provider - Reason: Unreviewed Transfer Orders)1634 (MAR Unhold - Provider: Alanis Franco MD)2128 (New Bag - Provider: Dayana Adkins RN)2158 (Stopped - Provider: Dayana Adkins RN) 0610 (New Bag - Provider: Dayana Adkins RN)0640 (Stopped - Provider: Dayana Adkins RN)1321 (New Bag - Provider: Ophelia Soto, ANMOL)1351 (Stopped - Provider: Ophelia Soto, ANMOL)2130 (Due) cloNIDine (CATAPRES) tablet 0.1 mg (CANCELED) 0.1 mg, Feeding Tube, 2 times daily, First dose (after last modification) on Mon04/11/25 at 2100, Hold for SBP less than 100 mmHg. Notify provider if a dose is held. 0858 (Given - Provider: Mandie Carranza, ANMOL) cloNIDine (CATAPRES) tablet 0.1 mg 0.1 mg, Oral, 2 times daily, First dose (after last modification) on Mon04/12/25 at 2100, Hold for SBP less than 100 mmHg. Notify provider if a dose is held. 2036 (Given - Provider: Patrick Loomis RN) 0903 (Given - Provider: Mandie Carranza RN)1531 (MAR Hold - Provider: Automatic Transfer Provider - Reason: Unreviewed Transfer Orders)1634 (MAR Unhold - Provider: Alanis Franco MD)2128 (Given - Provider: Dayana Adkins RN) 0934 (Given - Provider: Ophelia Soto RN)2100 (Due) folic acid (FOLVITE) tablet 1 mg (CANCELED) 1 mg, Feeding Tube, Daily, First dose on Mon04/11/25 at 0900 0858 (Given - Provider: Mandie Carranza RN) folic acid (FOLVITE) tablet 1 mg 1 mg, Oral, Daily, First dose (after last modification) on Mon04/13/25 at 0900 0859 (Given - Provider: Mandie Carranza RN - Comment: barcode damaged while crushing med, verified with another RN)1531 ([facility] Hold - Provider: Automatic Transfer Provider - Reason: Unreviewed Transfer Orders)1634 ([facility] Unhold - Provider: Alanis Franco MD) 0934 (Given - Provider: Ophelia Soto, ANMOL) gabapentin (NEURONTIN) capsule 300 mg (CANCELED) 300 mg, Feeding Tube, Every 8 hours scheduled, First dose (after last modification) on Mon04/09/25 at 0600 0857 (Given - Provider: Mandie Carranza RN)1547 (Given - Provider: Mandie Carranza RN) gabapentin (NEURONTIN) capsule 300 mg 300 mg, Oral, Every 8 hours scheduled, First dose (after last modification) on 04/13/25 at 0000 0011 (Given - Provider: Patrick Loomis RN)0852 (Given - Provider: Mandie Carranza RN)1531 (MAR Hold - Provider: Automatic Transfer Provider - Reason: Unreviewed Transfer Orders)1600 (Not Given - Provider: Myrna Ruiz RN - Reason: See Provider Order)1634 (MAR Unhold - Provider: Alanis Franco MD) 0046 (Given - Provider: Dayana Adkins RN)0935 (Given - Provider: Ophelia Soto RN)1645 (Given - Provider: Ophelia Soto RN) heparin (porcine) 5000 unit/mL injection 5,000 Units (CANCELED) 5,000 Units, Subcutaneous, Every 8 hours scheduled, First dose on Mon04/08/25 at 0830, For subcutaneous use the injection sites should be rotated (usually left and right portions of the abdomen, above iliac crest). 0851 (Given - Provider: Mandie Carranza RN)1547 (Given - Provider: Mandie Carranza RN) 0020 (Given - Provider: Patrick Loomis RN)0852 (Given - Provider: Mandie Carranza RN)1531 (MAR Hold - Provider: Automatic Transfer Provider - Reason: Unreviewed Transfer Orders)1600 (Not Given - Provider: Myrna Ruiz RN - Reason: See Provider Order)1634 (MAR Unhold - Provider: Alanis Franco MD) heparin (porcine) 5000 unit/mL injection 5,000 Units 5,000 Units, Subcutaneous, Every 8 hours scheduled, First dose (after last modification) on 04/13/25 at 1730, For subcutaneous use the injection sites should be rotated (usually left and right portions of the abdomen, above iliac crest). 1745 (Given - Provider: Myrna Ruiz RN) 0046 (Given - Provider: Dayana Adkins RN)0933 (Given - Provider: Ophelia Soto, ANMOL)1645 (Given - Provider: Ophelia Soto, ANMOL) hydrALAZINE (APRESOLINE) injection 10 mg (COMPLETED) 10 mg, Intravenous, Once, On 04/12/25 at 1100, For 1 dose, Hold for SBP less than 100 mmHg. Notify provider if a dose is held. For IV bolus doses 5 - 20 mg, infuse undiluted over 5 minutes. 1055 (Given - Provider: Mandie Carranza RN) hydrALAZINE (APRESOLINE) injection 5 mg (COMPLETED) 5 mg, Intravenous, Once, On 04/12/25 at 0500, For 1 dose, Hold for SBP less than 100 mmHg. Notify provider if a dose is held. For IV bolus doses 5 - 20 mg, infuse undiluted over 5 minutes. 0546 (Given - Provider: Bianca Corcoran RN) HYDROmorphone (DILAUDID) injection 0.5 mg (COMPLETED) 0.5 mg, Intravenous, Once, On 04/12/25 at 1700, For 1 dose, For IV Push, administer over 2 to 3 minutes. 1658 (Given - Provider: Mandie Carranza RN) HYDROmorphone (DILAUDID) injection 0.5 mg (COMPLETED) 0.5 mg, Intravenous, Once, On 04/12/25 at 1730, For 1 dose, For IV Push, administer over 2 to 3 minutes. 1725 (Given - Provider: Mandie Carranza RN - Comment: dressing change) HYDROmorphone (DILAUDID) injection 0.5 mg (COMPLETED) 0.5 mg, Intravenous, Once, On 04/14/25 at 1330, For 1 dose, For IV Push, administer over 2 to 3 minutes. 1318 (Given - Provider: Ophelia Soto RN - Comment: for dressing change) HYDROmorphone (DILAUDID) injection 1 mg (COMPLETED) 1 mg, Intravenous, Once, On 04/13/25 at 1230, For 1 dose, For IV Push, administer over 2 to 3 minutes. 1240 (Given - Provider: Mandie Carranza RN - Comment: for dressing change) insulin lispro (HumaLOG/ADMELOG) 100 units/mL injection 1-6 Units 1-6 Units, Subcutaneous, Every 4 hours scheduled, First dose on Mon04/09/25 at 0830, DO NOT HOLD IF NPO Notify provider if Blood Glucose LESS than 70 For BG 141-180 administer 1 unit For BG 181-220 administer 2 units For BG 221-260 administer 3 units For BG 261-300 administer 4 units For BG 301-340 administer 5 units For BG MORE than 340, administer 6 units AND notify provider 0355 (Not Given - Provider: Bianca Corcoran RN - Reason: Dose held per order parameters)0800 (Not Given - Provider: Mandie Carranza RN - Reason: Dose held per order parameters)1227 (Not Given - Provider: Mandie Carranza RN - Reason: Dose held per order parameters)1556 (Not Given - Provider: Mandie Carranza RN - Reason: Dose held per order parameters)202 (Not Given - Provider: Patrick Loomis RN - Reason: Change in order) 0020 (Not Given - Provider: Patrick Loomis RN - Reason: Dose held per order parameters)0416 (Not Given - Provider: Patrick Loomis RN - Reason: Dose held per order parameters)0859 (Not Given - Provider: Mandie Carranza RN - Reason: Dose held per order parameters)1154 (Not Given - Provider: Mandie Carranza RN - Reason: Dose held per order parameters)1531 (MAR Hold - Provider: Automatic Transfer Provider - Reason: Unreviewed Transfer Orders)1600 (Not Given - Provider: Myrna Ruiz RN - Reason: Dose held per order parameters)1634 (MAR Unhold - Provider: Alanis Franco MD)2022 (Not Given - Provider: Dayana Adkins RN - Reason: Dose held per order parameters) 0036 (Not Given - Provider: Dayana Adkins RN - Reason: Dose held per order parameters)0422 (Not Given - Provider: Dayana Adkins RN - Reason: Dose held per order parameters)0917 (Not Given - Provider: Ophelia Soto RN - Reason: Dose held per order parameters - Comment: FS 139)1318 (Given - Provider: Ophelia Soto RN - Comment: FS 147)1612 (Not Given - Provider: Ophelia Soto RN - Reason: Dose held per order parameters - Comment: FS 117)1999 (Due) ketorolac (TORADOL) injection 15 mg 15 mg, Intravenous, Every 6 hours scheduled, First dose (after last modification) on 04/12/25 at 0730, For 4 days, If ordered IV Push: administer undiluted over 2 minutes. 0851 (Given - Provider: Mandie Carranza RN)1234 (Given - Provider: Mandie Carranza RN)1742 (Given - Provider: Mandie Carranza, ANMOL) 0023 (Given - Provider: Patrick Loomis RN)0614 (Given - Provider: Patrick Loomis RN)1156 (Given - Provider: Mandie Carranza RN)1531 (MAR Hold - Provider: Automatic Transfer Provider - Reason: Unreviewed Transfer Orders)1634 (MAR Unhold - Provider: Alanis Franco MD)1720 (Given - Provider: Myrna Ruiz RN) 0046 (Given - Provider: Dayana Adkins RN)0610 (Given - Provider: Dayana Adkins RN)1321 (Given - Provider: Ophelia Soto RN)1810 (Given - Provider: Ophelia Soto RN) methadone (DOLOPHINE) tablet 45 mg (CANCELED) 45 mg, Feeding Tube, Every 8 hours scheduled, First dose (after last modification) on 04/12/25 at 1200, For 16 doses, Dose should be verified prior to first administration for patients attending [facility]., Methadone reason for use: Methadone Maintenance, Verify methadone clinic name: [facility], Confirmation of maintenance dose: 130mg daily, Verify patient name: Molly Beasley, All potent long acting opioid patients require type of therapy. Modification of therapy 1234 (Given - Provider: Mandie Carranza, ANMOL) methadone (DOLOPHINE) tablet 45 mg 45 mg, Oral, Every 8 hours scheduled, First dose (after last modification) on 04/12/25 at 2000, For 15 doses, Dose should be verified prior to first administration for patients attending methadone treatment center., Methadone reason for use: Methadone Maintenance, Verify methadone clinic name: [facility], Confirmation of maintenance dose: 130mg daily, Verify patient name: Molly Beasley, All potent long acting opioid patients require type of therapy. Modification of therapy 2035 (Given - Provider: Patrick Loomis RN) 040 (Given - Provider: Patrick Loomis, ANMOL)1155 (Given - Provider: Mandie Carranza, ANMOL)1531 (MAR Hold - Provider: Automatic Transfer Provider - Reason: Unreviewed Transfer Orders)1634 (MAR Unhold - Provider: Alanis Franco MD)2128 (Given - Provider: Dayana Adkins, ANMOL) 0610 (Given - Provider: Dayana Adkins RN)1321 (Given - Provider: Ophelia Soto, RN)1999 (Due) methadone (DOLOPHINE) tablet 60 mg (CANCELED) 60 mg, Feeding Tube, Every 8 hours scheduled, First dose (after last modification) on Mon04/11/25 at 1200, For 19 doses, Dose should be verified prior to first administration for patients attending methadone treatment center., Methadone reason for use: Treatment of Pain, All potent long acting opioid patients require type of therapy. Modification of therapy 354 (Given - Provider: Bianca Corcoran RN) multivitamin tablet 1 tablet 1 tablet, Oral, Daily, First dose on Mon04/13/25 at 0900 0852 (Given - Provider: Mandie Carranza, ANMOL)1531 (MAR Hold - Provider: Automatic Transfer Provider - Reason: Unreviewed Transfer Orders)1634 (MAR Unhold - Provider: Alanis Franco MD) 0934 (Given - Provider: Ophelia Soto, ANMOL) multivitamin with minerals (CEROVITE) liquid 15 mL (CANCELED) 15 mL, Feeding Tube, Daily, First dose on Mon04/11/25 at 0900 0857 (Given - Provider: Mandie Carranza RN) naloxegol (MOVANTIK) tablet 12.5 mg 12.5 mg, Oral, Daily before breakfast, First dose (after last modification) on Mon04/13/25 at 0800, Administer on an empty stomach at least 1 hour prior to or 2 hours after the first meal of the day., Home Med? If Yes, then Naloxegol can be ordered: No, Failed adquate Senokot trail? Yes, Failed adequate Lactulose or Miralax trial? Yes, Failed/Unacceptable stimulant suppository or enema trial? No 0852 (Given - Provider: Mandie Carranza RN)1531 (AUG Hold - Provider: Automatic Transfer Provider - Reason: Unreviewed Transfer Orders)1634 (AUG Unhold - Provider: Alanis Franco MD) 0934 (Given - Provider: Ophelia Soto RN) naloxegol (MOVANTIK) tablet 25 mg (CANCELED) 25 mg, Feeding Tube, Daily before breakfast, First dose (after last modification) on Mon04/12/25 at 0800, Administer on an empty stomach at least 1 hour prior to or 2 hours after the first meal of the day., Home Med? If Yes, then Naloxegol can be ordered: No, Failed adquate Senokot trail? Yes, Failed adequate Lactulose or Miralax trial? Yes, Failed/Unacceptable stimulant suppository or enema trial? No 0858 (Given - Provider: Mandie Carranza RN - Comment: med verified, barcode unable to scan) NIFEdipine (PROCARDIA) immediate release capsule 10 mg (CANCELED) 10 mg, Oral, Every 8 hours scheduled, First dose on Mon04/12/25 at 1400, Hold for SBP less than 120 mmHg. Notify provider if a dose is held. *DO NOT CHEW, CRUSH, OR OPEN CAPSULE* 1547 (Given - Provider: Mandie Carranza RN) 0011 (Not Given - Provider: Patrick Loomis RN - Reason: Other - Comment required - Comment: SBP at 120)0852 (Hold - Provider: Mandie Carranza RN - Reason: Other - Comment required - Comment: held per provider Ani HDZ) PANTOprazole (PROTONIX) injection 40 mg (CANCELED) 40 mg, Intravenous, Daily, First dose on Mon04/09/25 at 0900, Reconstitute each 40 mg vial with 10 ml NS and administer over 2 minutes 0851 (Given - Provider: Mandie Carranza RN) polyethylene glycol (miraLAx) packet 17 g (CANCELED) 17 g, Feeding Tube, Daily, First dose on Mon04/09/25 at 0900, Stir and dissolve in 4-8 oz of fluids. 0858 (Given - Provider: Mandie Carranza RN) polyethylene glycol (miraLAx) packet 17 g 17 g, Oral, Daily, First dose (after last modification) on Mon04/13/25 at 0900, Stir and dissolve in 4-8 oz of fluids. 0852 (Given - Provider: Mandie Carranza, ANMOL)1531 (MAR Hold - Provider: Automatic Transfer Provider - Reason: Unreviewed Transfer Orders)1634 (MAR Unhold - Provider: Alanis Franco MD) 0935 (Not Given - Provider: Ophelia Soto, ANMOL - Reason: Patient/family refused) potassium chloride (KLOR-CON M20) CR tablet 20 mEq (COMPLETED) 20 mEq, Oral, Every 2 hours, First dose on Mon04/14/25 at 0600, For 2 doses, Swallow tablets whole; do not crush, chew, or suck on tablet. Take with meals and a full glass of water or other liquid to minimize the risk of GI irritation. 0610 (Given - Provider: Dayana Adkins RN)0934 (Given - Provider: Ophelia Soto, ANMOL) potassium chloride IVPB 10 mEq in 100 mL SW (premix) (COMPLETED)(Linked Group 1) 10 mEq, Intravenous, at 100 mL/hr, Once, On 04/12/25 at 0200, For 1 dose 0225 (New Bag - Provider: Bianca Corcoran RN) potassium chloride IVPB 10 mEq in 100 mL SW (premix) (COMPLETED)(Linked Group 1) 10 mEq, Intravenous, at 100 mL/hr, Once, On 04/12/25 at 0300, For 1 dose 0341 (New Bag - Provider: Bianca Corcoran RN) potassium chloride IVPB 10 mEq in 100 mL SW (premix) (COMPLETED)(Linked Group 1) 10 mEq, Intravenous, at 100 mL/hr, Once, On 04/12/25 at 0400, For 1 dose 0444 (New Bag - Provider: Bianca Corcoran RN) potassium chloride IVPB 20 mEq in 100 mL SW premix (central line) (COMPLETED)(Linked Group 2) 20 mEq, Intravenous, at 100 mL/hr, Once, On 04/13/25 at 0130, For 1 dose, FOR CENTRAL LINE ADMINISTRATION ONLY Cardiac monitoring required when administering more than 10 mEq/hr 0259 (New Bag - Provider: Patrick Loomis RN) potassium chloride IVPB 20 mEq in 100 mL SW premix (central line) (COMPLETED)(Linked Group 2) 20 mEq, Intravenous, at 100 mL/hr, Once, On 04/13/25 at 0230, For 1 dose, FOR CENTRAL LINE ADMINISTRATION ONLY Cardiac monitoring required when administering more than 10 mEq/hr 0515 (New Bag - Provider: Patrick Loomis RN) potassium chloride IVPB 20 mEq in 100 mL SW premix (central line) (COMPLETED)(Linked Group 3) 20 mEq, Intravenous, at 100 mL/hr, Once, On 04/13/25 at 0130, For 1 dose, FOR CENTRAL LINE ADMINISTRATION ONLY Cardiac monitoring required when administering more than 10 mEq/hr 0155 (New Bag - Provider: Patrick Loomis RN) potassium chloride IVPB 20 mEq in 100 mL SW premix (central line) (COMPLETED)(Linked Group 3) 20 mEq, Intravenous, at 100 mL/hr, Once, On 04/13/25 at 0230, For 1 dose, FOR CENTRAL LINE ADMINISTRATION ONLY Cardiac monitoring required when administering more than 10 mEq/hr 0404 (New Bag - Provider: Patrick Loomis RN) potassium phosphate and sodium phosphate (K PHOS NEUTRAL) tablet 500 mg 500 mg, Oral, 4 times daily with meals and nightly, First dose on Mon04/14/25 at 0800, For 4 doses, Administer with a full glass of water. Each tablet contains elemental phosphorus 250 mg (8 mmol), sodium 298 mg (13 mEq), and potassium 45 mg (1.1 mEq). 0934 (Given - Provider: Ophelia Soto RN)1320 (Given - Provider: Ophelia Soto, ANMOL)1645 (Given - Provider: Ophelia Soto RN)2100 (Due) protein supplement feeding tube flush (PROSOURCE TF) 1.5 oz (CANCELED) 1.5 oz, Feeding Tube, 2 times daily, First dose on Mon04/11/25 at 0100, 1.5 Ounce = 1 packet 0859 (Given - Provider: Mandie Carranza RN) senna-docusate (SENNA-S) 8.6-50 MG tablet 1 tablet 1 tablet, Oral, Nightly, First dose (after last modification) on Mon04/13/25 at 2100, Hold for diarrhea 1531 (MAR Hold - Provider: Automatic Transfer Provider - Reason: Unreviewed Transfer Orders)1634 (MAR Unhold - Provider: Alanis Franco MD)2128 (Given - Provider: Dayana Adkins RN) 2100 (Due) senna-docusate (SENNA-S) 8.6-50 MG tablet 2 tablet (CANCELED) 2 tablet, Feeding Tube, 2 times daily, First dose (after last modification) on Mon04/09/25 at 0900, Hold for diarrhea 0857 (Given - Provider: Mandie Carranza RN)2035 (Given - Provider: Patrick Loomis RN) sodium phosphate IVPB 30 mmol in 250 mL NS (central line) (COMPLETED) 30 mmol, Intravenous, at 43.3 mL/hr, Once, On Mon04/13/25 at 0130, For 1 dose, FOR CENTRAL LINE ADMINISTRATION ONLY 0404 (New Bag - Provider: Patrick Loomis RN - Comment: not available) thiamine mononitrate (VITAMIN B-1) tablet 100 mg 100 mg, Oral, Daily, First dose on Mon04/13/25 at 0900 0852 (Given - Provider: Mandie Carranza RN)1531 (MAR Hold - Provider: Automatic Transfer Provider - Reason: Unreviewed Transfer Orders)1634 (MAR Unhold - Provider: Alanis Franco MD) 0934 (Given - Provider: Ophelia Soto RN) thiamine mononitrate (VITAMIN B-1) tablet 200 mg (CANCELED) 200 mg, Feeding Tube, Daily, First dose on Mon04/11/25 at 0900 0858 (Given - Provider: Mandie Carranza RN) vancomycin (VANCOCIN) IV dosing PER PHARMACY PROTOCOL This is place-fiore medication for pharmacy to manage vancomycin therapy according to the [facility] protocol. When therapy is no longer needed, the provider must discontinue the protocol and medication order., Previous therapy: Yes (> 1 dose given; continuation from outside facility, outpatient infusion, or current admission), Reason for Therapy: Bacterial Infection Documented, Type of Therapy: Continued from MEDICAL OPERATIONS SUPERVISOR, Indication: Bacteremia, Other, Specify: NSI 1531 ([facility] Hold - Provider: Automatic Transfer Provider - Reason: Unreviewed Transfer Orders)1634 ([facility] Unhold - Provider: Alanis Franco MD) vancomycin (VANCOCIN) 1,250 mg in sodium chloride (NS) 0.9 % 250 mL IVPB-WTD(Linked Group 4) 1,250 mg, Intravenous, Administer over 90 Minutes, Every 12 hours, First dose on Mon04/12/25 at 0130, All antimicrobials used at [facility] require an indication. Please complete the following documentation. Bacterial Infection Documented, Type of Therapy: Continued from MEDICAL OPERATIONS SUPERVISOR, Indication: Bacteremia, Other, Specify: NSI 0226 (New Bag - Provider: Bianca Corcoran RN)1234 (New Bag - Provider: Mandie Carranza RN) 0031 (New Bag - Provider: Patrick Loomis RN)1240 (New Bag - Provider: Mandie Carranza, ANMOL)1531 ([facility] Hold - Provider: Automatic Transfer Provider - Reason: Unreviewed Transfer Orders)1634 ([facility] Unhold - Provider: Alanis Franco MD) 0046 (New Bag - Provider: Dayana Adkins, ANMOL)0216 (Stopped - Provider: Dayana Adkins, ANMOL)1434 (New Bag - Provider: Ophelia Soto, ANMOL)1604 (Stopped - Provider: Ophelia Soto RN) Continuous Medication Order 04/12/2025 04/13/2025 04/14/2025 lactated ringers (LR) infusion (CANCELED) 50 mL/hr, Intravenous, Continuous, Starting on Mon04/09/25 at 1800 0000 (Rate/Dose Verify - Provider: Bianca Corcoran RN)0100 (Rate/Dose Verify - Provider: Bianca Corcoran RN)0200 (Rate/Dose Verify - Provider: Bianca Corcoran RN)0300 (Rate/Dose Verify - Provider: Bianca Corcoran RN)0400 (Rate/Dose Verify - Provider: Bianca Corcoran RN)0500 (Rate/Dose Verify - Provider: Bianca Corcoran RN)0600 (Rate/Dose Verify - Provider: Bianca Corcoran RN)0800 (Rate/Dose Verify - Provider: Mandie Carranza RN)0900 (Rate/Dose Verify - Provider: Mandie Carranza RN)1000 (Rate/Dose Verify - Provider: Mandie Carranza RN)1100 (Rate/Dose Verify - Provider: Mandie Carranza RN)1200 (Rate/Dose Verify - Provider: Mandie Carranza RN)1300 (Rate/Dose Verify - Provider: Mandie Carranza RN)1400 (Rate/Dose Verify - Provider: Mandie Carranza RN)1500 (Rate/Dose Verify - Provider: Mandie Carranza RN)1542 (New Bag - Provider: Mandie Carranza RN)1600 (Rate/Dose Verify - Provider: Mandie Carranza RN)1700 (Rate/Dose Verify - Provider: Mandie Carranza RN)1800 (Rate/Dose Verify - Provider: Mandie Carranza RN)1900 (Rate/Dose Verify - Provider: Mandie Carranza RN)2000 (Rate/Dose Verify - Provider: Patrick Loomis RN)2100 (Rate/Dose Verify - Provider: Patrick Loomis RN)2200 (Rate/Dose Verify - Provider: Patrick Loomis RN)2300 (Rate/Dose Verify - Provider: Patrick Loomis RN) 0000 (Rate/Dose Verify - Provider: Patrick oLomis RN)0105 (Stopped - Provider: Patrick Loomis RN) lactated ringers (LR) infusion (CANCELED) 10 mL/hr, Intravenous, Continuous, Starting on 04/13/25 at 0130, Carrier for dPCA 0142 (Rate/Dose Change - Provider: Patrick Loomis RN)0300 (Rate/Dose Verify - Provider: Patrick Loomis RN)0400 (Rate/Dose Verify - Provider: Patrick Loomis RN)0404 (Rate/Dose Verify - Provider: Patrick Loomis RN)0516 (Rate/Dose Verify - Provider: Patrick Loomis RN)0600 (Rate/Dose Verify - Provider: Patrick Loomis RN)0619 (New Bag - Provider: Patrick Loomis RN - Comment: tube changed)0700 (Rate/Dose Verify - Provider: Patrick Loomis RN)0800 (Rate/Dose Verify - Provider: Mandie Carranza RN)0900 (Rate/Dose Verify - Provider: Mandie Carranza RN)1000 (Rate/Dose Verify - Provider: Mandie Carranza RN)1100 (Rate/Dose Verify - Provider: Mandie Carranza RN)1200 (Rate/Dose Verify - Provider: Mandie Carranza RN)1300 (Rate/Dose Verify - Provider: Mandie Carranza RN)1400 (Rate/Dose Verify - Provider: Mandie Carranza RN)1531 (AUG Hold - Provider: Automatic Transfer Provider - Reason: Unreviewed Transfer Orders)1634 (MAR Unhold - Provider: Alanis Franco MD) 1321 (Stopped - Provider: Ophelia Soto RN) HYDROmorphone (DILAUDID) 1 mg/mL EXTERIOR DOOR INSTALLER syringe (premix) (CANCELED) Intravenous, EXTERIOR DOOR INSTALLER dose (mg): 0.3, Lockout interval: 10 min, Continuous rate (mg/hr): 0, Max limit in four hours (mg): 7.2, Loading dose (mg): 0 1118 (New Syringe/Cartridge - Provider: Mandie Carranza RN)1124 (Canceled Entry - Provider: Mandie Carranza RN) HYDROmorphone (DILAUDID) 1 mg/mL EXTERIOR DOOR INSTALLER syringe (premix) (CANCELED) Intravenous, EXTERIOR DOOR INSTALLER dose (mg): 0.2, Lockout interval: 10 min, Continuous rate (mg/hr): 0, Max limit in four hours (mg): 4.8, Loading dose (mg): 0 1541 (New Syringe/Cartridge - Provider: Mandie Carranza RN)1918 (Handoff - Provider: Mandie Carranza RN) 0657 (Handoff - Provider: Patrick Loomis RN)1531 (AUG Hold - Provider: Automatic Transfer Provider - Reason: Unreviewed Transfer Orders)1539 (Handoff - Provider: Myrna Ruiz RN)1634 (AUG Unhold - Provider: Alanis Franco MD)2007 (Handoff - Provider: Dayana Adkins RN) 0718 (Handoff - Provider: Ophelia Soto, ANMOL)1321 (Stopped - Provider: Ophelia Soto RN) ketamine 1000 mg in 100 mL NS infusion (10 mg/mL) (premix) (CANCELED) 5 mcg/kg/min 75.2 kg (2.256 mL/hr, rounded to 2.3 mL/hr), Intravenous, Continuous, Starting on Mon04/10/25 at 1100, For analgesia. Max dose for analgesia is 16 mcg/kg/min. Continuous IV infusions of ketamine are restricted to ICU or equivalent setting, excluding palliative care patients. Rate changes require new order. 0000 (Rate/Dose Verify - Provider: Bianca Corcoran RN)0005 (New Bag - Provider: Bianca Corcoran RN)0100 (Rate/Dose Verify - Provider: Bianca Corcoran RN)0200 (Rate/Dose Verify - Provider: Bianca Corcoran RN)0300 (Rate/Dose Verify - Provider: Bianca Corcoran RN)0400 (Rate/Dose Verify - Provider: Bianca Corcoran RN)0500 (Rate/Dose Verify - Provider: Bianca Corcoran RN)0600 (Rate/Dose Verify - Provider: Bianca Corcoran RN)0800 (Stopped - Provider: Mandie Carranza RN) propofol (diPRIvan) 1000 MG/100ML injection (CANCELED) 5-75 mcg/kg/min 73.7 kg (2.211-33.165 mL/hr, rounded to 2.2-33.2 mL/hr), Intravenous, Titrated, Starting on Mon04/08/25 at 2130, Starting Dose: 50 mcg/kg/min or as specified in dose field. If patient less than 71 kg: titrate by 5 mcg/kg/min every 5 minutes. If patient 71 kg or greater: titrate by 10 mcg/kg/min every 5 minutes. Titration Goal: RASS between -2 and 0 Maximum Dose: 75 mcg/kg/min or as specified in dose field. Do not use if contamination is suspected. Do not administer through the same IV catheter with blood or plasma. *Shake well before using* 0000 (Rate/Dose Verify - Provider: Bianca Corcoran RN)0100 (Rate/Dose Verify - Provider: Bianca Corcoran RN)0200 (Rate/Dose Verify - Provider: Bianca Corcoran RN)0300 (Rate/Dose Verify - Provider: Bianca Corcoran RN)0400 (Rate/Dose Verify - Provider: Bianca Corcoran RN)0500 (Rate/Dose Verify - Provider: Bianca Corcoran RN)0521 (Stopped - Provider: Bianca Corcoran RN) PRN Medication Order 04/12/2025 04/13/2025 04/14/2025 albuterol (PROVENTIL) (0.083%) 2.5 mg/3 mL nebulizer solution 2.5 mg 2.5 mg, Nebulization, Every 6 hours PRN, wheezing, shortness of breath, Starting on Mon04/09/25 at 0026, Albuterol or Duoneb Indication: Bronchospasm, Other (use comment) 1531 ([facility] Hold - Provider: Automatic Transfer Provider - Reason: Unreviewed Transfer Orders)1634 ([facility] Unhold - Provider: Alanis Franco MD) bisacodyl (DULCOLAX) suppository 10 mg 10 mg, Rectal, Daily PRN, constipation, if no bowel movement by day 2, Starting on Mon04/06/25 at 2229 1531 ([facility] Hold - Provider: Automatic Transfer Provider - Reason: Unreviewed Transfer Orders)1634 ([facility] Unhold - Provider: Alanis Franco MD) dextrose 50 % solution 12.5 g(Linked Group 5) 12.5 g, Intravenous, Every 15 min PRN, low blood sugar, between 50 and 69 mg/dL, Starting on Mon04/09/25 at 0403, For patient with IV access who is NPO or unable to swallow. See Hypoglycemia Management guideline. 1531 ([facility] Hold - Provider: Automatic Transfer Provider - Reason: Unreviewed Transfer Orders)1634 ([facility] Unhold - Provider: Alanis Franco MD) dextrose 50 % solution 25 g(Linked Group 5) 25 g, Intravenous, Every 15 min PRN, low blood sugar, less than 50 mg/dL, Starting on Mon04/09/25 at 0403, For patient with IV access who is NPO or unable to swallow. See Hypoglycemia Management guideline. 153 ([facility] Hold - Provider: Automatic Transfer Provider - Reason: Unreviewed Transfer Orders)163 ([facility] Unhold - Provider: Alanis Franco MD) glucagon (GLUCAGEN) injection 1 mg(Linked Group 5) 1 mg, Intramuscular, Daily PRN, low blood sugar, for Blood Glucose LESS than 70 mg/dL and NPO and no IV access, Starting on Mon04/09/25 at 0403, Glucagon may be repeated x 1 (for a total of 2 doses per hypoglycemic event) if patient remains hypoglycemic after first dose. Do not use with hepatic disease or alcohol intoxication. See Hypoglycemia Management guideline. Reconstitute vial with 1 mL sterile water for injection. 153 ([facility] Hold - Provider: Automatic Transfer Provider - Reason: Unreviewed Transfer Orders)163 ([facility] Unhold - Provider: Alanis Franco MD) glucose (GLUTOSE 15) 40 % oral gel 37.5 g(Linked Group 5) 37.5 g (1 Tube), Oral, Every 15 min PRN, low blood sugar, between 50 and 69 mg/dL, Starting on Mon04/09/25 at 0403, Juice or soda is preferred for alert patients (4 oz juice or 6 oz soda). Use glucose gel for patients with fluid restriction. See Hypoglycemia Management guideline. Each 37.5 gram tube of glucose 40 % = 15 grams of glucose. 153 ([facility] Hold - Provider: Automatic Transfer Provider - Reason: Unreviewed Transfer Orders)1634 ([facility] Unhold - Provider: Alanis Franco MD) glucose (GLUTOSE 15) 40 % oral gel 75 g(Linked Group 5) 75 g (2 Tube), Oral, Every 15 min PRN, low blood sugar, less than 50 mg/dL, Starting on Mon04/09/25 at 0403, Juice or soda is preferred for alert patients (8 oz juice or 12 oz soda). Use glucose gel for patients with fluid restriction. See Hypoglycemia Management guideline. Each 37.5 gram tube of glucose 40 % = 15 grams of glucose. 153 ([facility] Hold - Provider: Automatic Transfer Provider - Reason: Unreviewed Transfer Orders)1634 ([facility] Unhold - Provider: Alanis Franco MD) HYDROmorphone (DILAUDID) injection 1 mg 1 mg, Intravenous, Daily PRN, DURING DRESSING CHANGES ONLY, Starting on 04/13/25 at 1420, For 5 days, For IV Push, administer over 2 to 3 minutes. 1531 ([facility] Hold - Provider: Automatic Transfer Provider - Reason: Unreviewed Transfer Orders)1634 ([facility] Unhold - Provider: Alanis Franco MD) 0946 (Given - Provider: Ophelia Soto RN - Comment: For dressing change) HYDROmorphone (DILAUDID) tablet 4 mg(Linked Group 6) 4 mg, Oral, Every 3 hours PRN, moderate to moderately severe pain 4-6, Starting on 04/14/25 at 1035, For 7 days 1809 (Given - Provider: Ophelia Soto RN) HYDROmorphone (DILAUDID) tablet 6 mg(Linked Group 6) 6 mg, Oral, Every 3 hours PRN, severe to excruciating pain 7-10, Starting on 04/14/25 at 1035, For 7 days 1809 (See Alternativ e - Provider: Ophelia Soto RN) labetalol (NORMODYNE,TRANDATE) injection 10 mg 10 mg, Intravenous, Every 4 hours PRN, SBP greater than 160 mmHg, Starting on Yaima 04/10/25 at 2049, Hold for HR less than 45 bpm or SBP less than 90 mmHg or bronchospasm develops. Notify provider if a dose is held. Infuse undiluted over 2 minutes. 0307 (Given - Provider: Bianca Corcoran RN) 1531 ([facility] Hold - Provider: Automatic Transfer Provider - Reason: Unreviewed Transfer Orders)1634 ([facility] Unhold - Provider: Alanis Frnaco MD) naloxone (NARCAN) 0.4 mg/mL injection 0.4 mg 0.4 mg, Intravenous, Every 5 min PRN, opioid reversal, respiratory depression, Starting on 04/12/25 at 0919, If respiratory rate is less than 8 breaths/minute or patient is difficult to arouse. Stop all narcotics and contact provider. 1531 ([facility] Hold - Provider: Automatic Transfer Provider - Reason: Unreviewed Transfer Orders)1634 ([facility] Unhold - Provider: Alanis Franco MD) ondansetron (ZOFRAN) injection 4 mg 4 mg, Intravenous, Every 6 hours PRN, nausea, vomiting, Starting on 04/07/25 at 1811 1531 ([facility] Hold - Provider: Automatic Transfer Provider - Reason: Unreviewed Transfer Orders)1634 ([facility] Unhold - Provider: Alanis Franco MD) Linked Groups Order Group 1: potassium chloride IVPB 10 mEq in 100 mL SW (premix) (COMPLETED)Jump to med 10 mEq, Intravenous, at 100 mL/hr, Once, On 04/12/25 at 0200, For 1 dose Followed by potassium chloride IVPB 10 mEq in 100 mL SW (premix) (COMPLETED)Jump to med 10 mEq, Intravenous, at 100 mL/hr, Once, On 04/12/25 at 0300, For 1 dose Followed by potassium chloride IVPB 10 mEq in 100 mL SW (premix) (COMPLETED)Jump to med 10 mEq, Intravenous, at 100 mL/hr, Once, On 04/12/25 at 0400, For 1 dose Group 2: potassium chloride IVPB 20 mEq in 100 mL SW premix (central line) (COMPLETED)Jump to med 20 mEq, Intravenous, at 100 mL/hr, Once, On 04/13/25 at 0130, For 1 dose, FOR CENTRAL LINE ADMINISTRATION ONLY Cardiac monitoring required when administering more than 10 mEq/hr Followed by potassium chloride IVPB 20 mEq in 100 mL SW premix (central line) (COMPLETED)Jump to med 20 mEq, Intravenous, at 100 mL/hr, Once, On 04/13/25 at 0230, For 1 dose, FOR CENTRAL LINE ADMINISTRATION ONLY Cardiac monitoring required when administering more than 10 mEq/hr Group 3: potassium chloride IVPB 20 mEq in 100 mL SW premix (central line) (COMPLETED)Jump to med 20 mEq, Intravenous, at 100 mL/hr, Once, On 04/13/25 at 0130, For 1 dose, FOR CENTRAL LINE ADMINISTRATION ONLY Cardiac monitoring required when administering more than 10 mEq/hr Followed by potassium chloride IVPB 20 mEq in 100 mL SW premix (central line) (COMPLETED)Jump to med 20 mEq, Intravenous, at 100 mL/hr, Once, On 04/13/25 at 0230, For 1 dose, FOR CENTRAL LINE ADMINISTRATION ONLY Cardiac monitoring required when administering more than 10 mEq/hr Group 4: vancomycin (VANCOCIN) IVPB 1750 mg in 500 mL NS (HH-premix) (COMPLETED) 1,750 mg, Intravenous, Administer over 120 Minutes, Once, On Mon04/11/25 at 1330, For 1 dose, All antimicrobials used at [facility] require an indication. Please complete the following documentation. Bacterial Infection Documented, Type of Therapy: Continued from MEDICAL OPERATIONS SUPERVISOR, Indication: Bacteremia, Other, Specify: NSI Followed by vancomycin (VANCOCIN) 1,250 mg in sodium chloride (NS) 0.9 % 250 mL IVPB-WTDJump to med 1,250 mg, Intravenous, Administer over 90 Minutes, Every 12 hours, First dose on Mon04/12/25 at 0130, All antimicrobials used at [facility] require an indication. Please complete the following documentation. Bacterial Infection Documented, Type of Therapy: Continued from MEDICAL OPERATIONS SUPERVISOR, Indication: Bacteremia, Other, Specify: NSI Group 5: glucose (GLUTOSE 15) 40 % oral gel 37.5 gJump to med 37.5 g (1 Tube), Oral, Every 15 min PRN, low blood sugar, between 50 and 69 mg/dL, Starting on Mon04/09/25 at 0403, Juice or soda is preferred for alert patients (4 oz juice or 6 oz soda). Use glucose gel for patients with fluid restriction. See Hypoglycemia Management guideline. Each 37.5 gram tube of glucose 40 % = 15 grams of glucose. Or glucose (GLUTOSE 15) 40 % oral gel 75 gJump to med 75 g (2 Tube), Oral, Every 15 min PRN, low blood sugar, less than 50 mg/dL, Starting on Mon04/09/25 at 0403, Juice or soda is preferred for alert patients (8 oz juice or 12 oz soda). Use glucose gel for patients with fluid restriction. See Hypoglycemia Management guideline. Each 37.5 gram tube of glucose 40 % = 15 grams of glucose. Or dextrose 50 % solution 12.5 gJump to med 12.5 g, Intravenous, Every 15 min PRN, low blood sugar, between 50 and 69 mg/dL, Starting on Mon04/09/25 at 0403, For patient with IV access who is NPO or unable to swallow. See Hypoglycemia Management guideline. Or dextrose 50 % solution 25 gJump to med 25 g, Intravenous, Every 15 min PRN, low blood sugar, less than 50 mg/dL, Starting on Mon04/09/25 at 0403, For patient with IV access who is NPO or unable to swallow. See Hypoglycemia Management guideline. Or glucagon (GLUCAGEN) injection 1 mgJump to med 1 mg, Intramuscular, Daily PRN, low blood sugar, for Blood Glucose LESS than 70 mg/dL and NPO and no IV access, Starting on Mon04/09/25 at 0403, Glucagon may be repeated x 1 (for a total of 2 doses per hypoglycemic event) if patient remains hypoglycemic after first dose. Do not use with hepatic disease or alcohol intoxication. See Hypoglycemia Management guideline. Reconstitute vial with 1 mL sterile water for injection. 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 04/07/2025 04/07/2025 documented as of this encounter Care Teams Bench Shear Operator Relationship Specialty Start Date End Date Pcp, No PCP - General General Medicine 04/06/25 04/08/25 System, Provider Not In PCP - General 04/09/25 documented as of this encounter
--- OUTSIDE RECORDS SUMMARY | 2025-04-08 19:01 | XMS_ITS | Encounter Summary ---
Author Organization Formerly [facility] Address [address] [place] [address] Care Team Providers Care Arts And Crafts Teacher Name Role Phone Pcp, No Primary Care Provider Unavailabl e Reason for Visit * Auth/Cert (Routine) Specialty Diagnoses / Procedures Referred By Reese t Referred To Contact Diagnoses Hand abscess Abscess Procedures n/a Referral ID Status Reason Start Date Expiration Date Visits Re quested Visits Authorized [id number] 1 1 Encounter Details Date Type Department Care Team (Late st Contact Info) Description 04/08/2025 7:01 PM EDT Anesthesia Event [facility] [address] [place] [phone] Cuauhtemoc Collins MD [address] [place] [id number] Jacquie Hilario PA-C [address] [place] [address] [address] [place] [address] Anesthesia Record Procedure Summary Procedure Name Responsible Anesthesiologist Anesthesia Start Time Anesthesia Stop Time INCISION & DRAINAGE (Right: Arm Upper) Cuauhtemoc Collins MD 04/08/25190004/08/252047 Events Date Time Event Comment 04/08/2025 1754 AN Equip Check 0 190 An Start 1905 An Start Data 1908 An Induction 1909 AN LMA 1912 Anesthesia Ready 2009 AN Lma 2013 An Intubation 2024 AN Stop Data 2025 AN Pt Transferred 2025 AM Pt Transferred 2045 Handoff to Receiving I compl eted my handoff to the receiving clinician during which we: 1. Identified the patient 2. Identified the responsible provider 3. Reviewed pertinent medical history 4. Discussed the surgical or procedural course 5. Reviewed intraoperative management and issues during anesthesia 6. Set expectations for the post-procedure period 7. Allowed opportunity for questions and acknowledgement of understanding. 2046 AN/ICU handoff 2047 An Stop Meds Name Total fentaNYL 50 mcg/mL injection 100 mcg midazolam 1 mg/mL injection 2 mg propofol 10 mg/mL BOLUS 200 mg propofol 10 mg/mL INFUSION 182.41 mg rocuronium 10 mg/mL injection 50 mg sugammadex 200 mg/2 mL injection 200 mg ketamine 10 mg/mL injection (5 mL syring e) 50 mg dexmedeTOMIDine 400 mcg in 100 mL NS inf usion (4 mcg/mL) 48 mcg LR 500 mL * Agents Name O2 N2O Air Sevoflurane * Blood No blood administrations on file. Lines, Drains, and Airways Type Details Placement Removal Central Line - Triple Lumen (Adult) 04/07/25; 1500; internal jugular vein, right 04/07/25 1500 by Shreyas Vargas RN Incision (Adult, Obstetrics, Pediatrics) 04/07/25; 1606; Left; arm; kerlix, abd pads, 8x4s 04/07/25 1606 by Marylou Delcid RN Incision (Adult, Obstetrics, Pediatrics) 04/07/25; 1606; Right; arm; kerlix, abd pads, 8x4s 04/07/25 1606 by Marylou Delcid RN Intentionally Retained Foreign Objects 04/08/25; MD Cunningham and MD Solorio; Other (Comment) (L upper arm); Upper; 2 inch iodoform packing 04/08/25 0000 by Gisela Pastor RN Intentionally Retained Foreign Objects 04/08/25; 2001; MD Cunningham and MD Solorio; Other (Comment) (R upper arm); Upper; 2 betadine soak kerlix tied together and 1 dry kerlix; 04/10/25; 2219; Removed in OR by Shaila Solorio MD 04/08/252001 by Kari Zabala RN 04/10/252219 by Claudia Del Rio RN Urethral Catheter (Adult) 04/08/25; 2018; need for frequent and accurate urine output measurements; indwelling double lumen catheter; latex; 16 Fr; inserted at this facility (inserted by Chey Pastor RN); 1; 10 mL balloon size; 10 mL balloon inflation volume; other (see comments) (pt under general anesthesia); drainage bag to dependent drainage; 04/12/25; 1001 04/08/252017 by Gisela Pastor RN 04/12/25 100 by Mandie Carranza RN Airway-Oral/INFORMATION SECURITY SPECIALIST 04/08/25; 2022 (crecheryl henry via procedure documentation); 7; endotracheal tube; NON-SUBGLOTTIC ETT; 04/12/25; 52404/08/252022 by Sharron Marcial CRNA 04/12/25524 by Joe Campbell RRT NG/OG 04/08/25; 2099; nasogastric; left nostril; 04/12/25; 174604/08/252099 by Shreyas Vargas RN 04/12/251746 by Mandie Carranza RN documented in this encounter Social History Tobacco Use Types Packs/Day Years Used Date Smoking Tobacco: Every Day Cigarettes Passive Smoke Exposure: Current Smokeless Tobacco: Current [facility] Utilities Answer Date Recorded In the past 12 months has [employer], gas, oil, or water [employer] threatened to shut off services in your [...] money to buy more. Never true 04/08/20 Within the past 12 months, t he [...] any time in the past 12 m onths, were you homeless or living in a skilled nursing (including now)? No 04/08/2025 Comments Unknown Sex and Gender Information Value Date Recorded Sex Assigned at Female 04/06/2025 9:21 PM EDT Legal Sex Female 4:48 PM EDT Gender Identity Female 04/06/2025 9:21 PM EDT Sexual Orientation Heterosexual (straight) 04/06 9:21 PM EDT documented as of this encounter Last Filed Vital Signs Vital Sign Reading Time Taken Comments Blood Pressure - - Pulse - - Temperature - - Respiratory Rate 1 04/08/2025 8:34 PM EDT Oxygen Saturation 98% 04/08/2025 8:25 PM EDT Inhaled Oxygen Concentration - - Weight - - Height - - Body Mass Index - - documented in this encounter OR Notes * Anesthesia Postprocedure Evaluation - Cuauhtemoc Collins MD - 04/09/2025 8:14 AM EDT Department of Anesthesiology Post-Anesthesia Evaluation Patient Name: Molly Beasley : 1990 Admission Date: 04/06/2025 Attending Provider: Lucho Donaldson MD Date of Service: 04/09/2025 Procedure Summary Date: 04/08/25 Room / Location: [address] Main OR Anesthesia Start: 1900 Anesthesia Stop: 2047 Procedure: INCISION & DRAINAGE (Right: Arm Upper) Diagnosis: Abscess of arm, right (Abscess of arm, right [L02.413]) Surgeons: Galdino Cunningham MD Responsible Provider: Cuauhtemoc Collins MD Anesthesia Type: general ASA Status: 3 Anesthesia Type: general There were no known notable events for this encounter. Last vitals Vitals Value Taken Time BP 136/61 04/09/25 00:31 Temp 35.7 ??C (96.26 ??F) 04/09/25 00:47 Pulse 66 04/09/25 00:47 Resp 12 04/09/25 00:47 SpO2 98 % 04/09/25 00:47 Vitals shown include unfiled device data. Evaluation Vital signs are in the patient's normal range: Yes Respiratory function stable; airway patent: Yes Cardiovascular function and hydration status are stable: Yes Mental status recovered; patient participates in evaluation: Yes Pain control satisfactory: Yes Nausea and vomiting control is satisfactory: Yes This is an OB patient: No Quality Metrics Cuauhtemoc Collins MD 04/09/2025 8:14 AM * Anesthesia Procedure Notes - Sharron Marcial CRNA - 04/08/2025 8:22 PM EDT Associated Order(s): Airway Management Anesthesia Procedure Note - Elective intubation Patient Name: Molly Beasley : 1990 Patient location: OR Procedure indications: airway protection Procedure diagnosis: Anesthesia Performed by: Resident/HEAD OF ETHICS AND COMPLIANCE MD Sharron Marley CRNA Chart Verification Airway: airway not difficult Preanesthetic Checklist monitors and equipment checked. Patient's pre-procedure mental status: awake The patient was sedated prior to procedure. Current level of sedation: general anesthesia Airway not difficult - NPO status: > 8 hours Procedure Details Intubation route: oral Intubation method: direct laryngoscopy Mac 3 Number of attempts: 1 Patient status for intubation: paralyzed and sedated Patient position: supine Preoxygenation: BVM Quality of BVM: easy and 1 person Tube size: 7.0 mm Tube: standard - cuffed and cuff inflated Cord visualization: Grade IIa Placement confirmation method: chest rise and ETCO2 monitor Breath sounds: equal bilaterally ETT to lip: 20 cm Dentition: same as baseline Complications: no complications * Anesthesia Preprocedure Evaluation - Jeffrey Kay MD - 04/08/2025 6:14 AM EDT Department of Anesthesiology Pre-Procedure Evaluation Patient Name: Molly Beasley : 1990 Admission Date: 04/06/2025 Attending Provider: Db Lynn MD Date of Service: 04/08/2025 Scheduled Procedure: INCISION & DRAINAGE, Right - Arm Upper Pre-operative Diagnosis: Abscess of arm, right [L02.413] Relevant Problems No relevant active problems Allergies[1] No data recorded Patient summary reviewed. Nursing notes reviewed. ECG reviewed. Pre-procedure vital signs reviewed. NPO status verified. General History of substance use (IVDA) - tobacco and cocaine Respiratory Cardiovascular Positives: Exercise tolerance: >4 METS Negatives: pacemaker Neuromuscular GI/Hepatic/Renal Positives: weight gain Obesity Endo/MET Hem/Lymph Skel/Skin Psych Positives: attention deficit hyperactivity disorder HEENT Obstetrics Other Syndromes Additional Notes 34 y.o. female with past medical history of IV drug use who was transferred to [facility] yesterday for concern for right upper [...] necrotizing fasciitis without soft tissue gas. CT scanof the left forearm demonstrated partially visualized abscess in the antecubital fossa and synovitis in the wrist. She is subsequently transferred to [facility] for further evaluation. S/p I&D LUE 04/07/25; There was evacuation of about 1L of purulent fluid. Plan for return to OR 04/08/25 for second look Physical Exam Airway Mallampati II TM distance >3 FB Neck ROM: full Pulmonary Abdominal No past medical history on file. No past surgical history on file. No family history on file. Tobacco/Alcohol/Drug HX[2] Ht Readings from Last 1 Encounters: 04/06/25 1.58 m (5' 2.21 ) Wt Readings from Last 1 Encounters: 04/06/25 73.7 kg (162 lb 7.7 oz) Body mass index is 29.52 kg/m??. White Blood Cell Count Date Value Ref Range Status 04/08/2025 15.0 (H) 4.0 - 11.0 Thou/uL Final Hemoglobin Date Value Ref Range Status 04/08/2025 8.0 (L) 11.7 - 15.7 g/dL Final Hematocrit Date Value Ref Range Status 04/08/2025 25.1 (L) 35.0 - 47.0 % Final Platelet Count Date Value Ref Range Status 04/08/2025 392 150 - 450 Thou/uL Final No results found for: ABORH , TYPE , SCREEN Recent Results (from the past 8760 hours) ECG 12 lead Collection Time: 04/07/25 10:00 AM Result Value Status Ventricular rate 95 Final Atrial rate 95 Final P-R interval 146 Final QRS duration 92 Final Q-T interval 340 Final QTC calculation (Bazett) 428 Final P axis 20 Final R axis 26 Final T axis 36 Final Narrative Normal sinus rhythm Normal ECG No previous ECGs available Confirmed by MD Eh, Ki ([id number]) on 04/07/2025 11:58:59 AM NPO Status: Date of Last Liquid Consumption: 04/07/25 Time of Last Liquid Consumption: 0000 Date of Last Solid Consumption: 04/07/25 Time of Last Solid Consumption: 0000 Anesthesia Plan ASA Score: ASA 3 Consent: The anesthetic plan and associated risks was discussed with patient. Anesthesia Plan: general anesthesia The plan was discussed with the following care providers: HEAD OF ETHICS AND COMPLIANCE. Post-Operative Pain Management: Post-operative opioids are intended. Attending Note I personally evaluated and examined the patient prior to the intra-operative phase of care. Jacquie Hilario PA-C [1] No Known Allergies [2] Tobacco/Alcohol/Drug HX Tobacco Use Smoking status: Every Day Types: Cigarettes Passive exposure: Current Smokeless tobacco: Current documented in this encounter Plan of Treatment Not on file documented as of this encounter Procedures Procedure Name Priority Date/Time Associated Diagnosis Comments ANES INTUBATION Routine 04/08/2025 8:22 PM EDT documented in this encounter Results * ANES INTUBATION (04/08/2025 8:22 PM EDT) Sharron Gentile CRNA - 04/08/2025 8:22 PM EDT Sharron Marcial CRNA 04/08/2025 8:23 PM Anesthesia Procedure Note - Elective intubation Patient Name: Molly Beasley : 1990 Patient location: OR Procedure indications: airway protection Procedure diagnosis: Anesthesia Performed by: Resident/HEAD OF ETHICS AND COMPLIANCE MD Sharron Marley CRNA Chart Verification Airway: airway not difficult Preanesthetic Checklist monitors and equipment checked. Patient's pre-procedure mental status: awake The patient was sedated prior to procedure. Current level of sedation: general anesthesia Airway not difficult - NPO status: > 8 hours Procedure Details Intubation route: oral Intubation method: direct laryngoscopy Mac 3 Number of attempts: 1 Patient status for intubation: paralyzed and sedated Patient position: supine Preoxygenation: BVM Quality of BVM: easy and 1 person Tube size: 7.0 mm Tube: standard - cuffed and cuff inflated Cord visualization: Grade IIa Placement confirmation method: chest rise and ETCO2 monitor Breath sounds: equal bilaterally ETT to lip: 20 cm Dentition: same as baseline Complications: no complications Cuauhtemoc Collins MD [place] ANESTHESIA Final Result documented in this encounter Visit Diagnoses Not on filedocumented in this encounter Administered Medications Inactive Administered Medications - up to 1 most recent administrations Medication Order MAR Action Action Date Dose Rate Site lactated ringers (LR) infusion Intravenous, Continuous PRN, Starting on Mon04/08/25 at 1902, Anesthesia Intra-op New Bag 04/08/2025 7:02 PM EDT dexmedeTOMIDine (PRECEDEX) IV infusion 400 mcg in 100 mL NS (premix) Intravenous, As needed, Starting on Mon04/08/25 at 1935, Anesthesia Intra-op Given 04/08/2025 8:21 PM EDT 16 mcg fentaNYL 100 MCG/2ML injection Intravenous, As needed, Starting on Mon04/08/25 at 1903, Anesthesia Intra-op Given 04/08/2025 7:03 PM EDT 100 mcg ketamine (KETALAR) 10 mg/mL syringe (PREMIX) Intravenous, As needed, Starting on Mon04/08/25 at 1910, Anesthesia Intra-op Given 04/08/2025 7:24 PM EDT 20 mg midazolam (VERSED) 1 mg/mL injection Intravenous, As needed, Starting on Mon04/08/25 at 1903, Anesthesia Intra-op Given 04/08/2025 7:03 PM EDT 2 mg propofol (diPRIvan) injection Intravenous, As needed, Starting on Mon04/08/25 at 1910, Anesthesia Intra-op Given 04/08/2025 7:09 PM EDT 200 mg propofol (diPRIvan) IV infusion Intravenous, Continuous PRN, Starting on Mon04/08/25 at 2014, Anesthesia Intra-op Rate/Dose Verify 04/08/2025 8:40 PM EDT 33.165 mL/hr rocuronium (ZEMURON) 50 mg/5mL injection Intravenous, As needed, Starting on Mon04/08/25 at 2011, Anesthesia Intra-op Given 04/08/2025 8:12 PM EDT 50 mg sugammadex (BRIDION) injection Intravenous, As needed, Starting on Mon04/08/25 at 2039, Anesthesia Intra-op Given 04/08/2025 8:40 PM EDT 200 mg documented in this encounter Additional Health Concerns Infection Onset Date Last Indicated Resolved Time MRSA - Increased Transmissio n Risk Comment:Criteria for Increased Transmission Risk: -Wound unable to be covered or with uncontained drainage -Incontinent of urine/stool -Unable to contain respiratory secretions Precautions required until above criteria are resolved. 04/07/2025 04/07/2025 documented as of this encounter Care Teams Arts And Crafts Teacher Relationship Specialty Start Date End Date Pcp, No PCP - General General Medicine 04/06/25 04/08/25 documented as of this encounter
--- OUTSIDE RECORDS SUMMARY | 2025-04-09 14:49 | XMS_ITS | Encounter Summary ---
Author Organization [facility] Address [address] [place] [address] Care Team Providers Care Occupational Health Physiotherapist Name Role Phone System, Provider Not In Primary Care Provider Un available Reason for Visit * Auth/Cert (Routine) Specialty Diagnoses / Procedures Referred By Reese ta Referred To Contact Diagnoses Hand abscess Abscess Procedures n/a Referral ID Status Reason Start Date Expiration Date Visits Re quested Visits Authorized [id number] 1 1 Encounter Details Date Type Department Care Team (Late st Contact Info) Description 04/09/2025 2:49 PM EDT Anesthesia Event [facility] [address] [place] [phone] Олег Vasquez DO [address] [address] Jacquie Hilario PA-C [address] [place] [address] [address] [place] [address] Anesthesia Record Procedure Summary Procedure Name Responsible Anesthesiologist Anesthesia Start Time Anesthesia Stop Time DEBRIDEMENT UPPER EXTREMITY AND CHEST (Right) Олег Vasquez DO 04/09/25 1449 04/09/25 1718 Events Date Time Event Comment 04/09/2025 1449 AN Equip Check 1449 An Start 1449 An Start Data 1456 An Induction 1458 Anesthesia Ready 1639 AN Emergence 1651 AN Stop Data 1718 AN Pt Transferred 1718 AM Pt Transferred 1718 PACU Handoff I completed my SBAR handoff to the receiving nurse in the PACU. 1718 An Stop Meds Name Total fentaNYL 50 mcg/mL injection 100 mcg HYDROmorphone 2 mg/mL injection 2 mg propofol 10 mg/mL BOLUS 100 mg rocuronium 10 mg/mL injection 80 mg sugammadex 200 mg/2 mL injection 200 mg HYDROmorphone (DILAUDID) IV infusion 50 mg in 50 mL NS (1 mg/mL) (premix) 2.48 mg propofol (diPRIvan) 1000 MG/100ML inject ion 449.57 mg labetalol 5 mg/mL injection 10 mg calcium chloride 1 g/10 mL injection 2 g 0.9% NaCl 750 mL LR 850 mL dextrose 5 % in lactated ringers (D5LR) infusion 300 mL * Agents Name O2 N2O Air Sevoflurane * Blood Name Total PRBC 500 mL FFP 150 mL Lines, Drains, and Airways Type Details Placement [...] packing 04/08/25 0000 by Gisela Pastor RN Incision (Adult, Obstetrics, Pediatrics) 04/09/25; 1644; chest; 1 gauze sponge roll packed in wound, covered with 2 ABDs 04/09/25 1644 by Claudia Del Rio RN Intentionally Retained Foreign Objects 04/08/25; 2001; MD Cunningham and MD Solorio; Other (Comment) (R upper arm); Upper; 2 betadine soak kerlix tied together and 1 dry kerlix; 04/10/25; 2220; Removed in OR by Shaila Solorio MD [...] drainage bag to dependent drainage; 04/12/25; 1001 04/08/25 2018 by Gisela Pastor RN 04/12/25 100 by Mandie Carranza RN Airway-Oral/BELT REPAIRER 04/08/25; 2022 (kevin henry via procedure documentation); 7; endotracheal tube; NON-SUBGLOTTIC ETT; 04/12/25; 0504/08/252022 by Sharron Marcial CRNA 04/12/25524 by Joe Campbell RRT NG/OG 04/08/25; 2100; nasogastric; left nostril; 04/12/25; 17404/08/25 2100 by Shreyas Vargas RN 04/12/251746 by Mandie Carranza RN documented in this encounter Social History Tobacco Use Types Packs/Day Years Used Date Smoking Tobacco: Every Day Cigarettes Passive Smoke Exposure: Current Smokeless Tobacco: Current [facility] Utilities Answer Date Recorded In the past 12 months has th [employer], [employer], oil, or water [employer] threatened to shut off services in your [...] were you homeless or living in a senior living (including now)? No 04/08/2025 Comments Unknown Sex [...] - - Temperature - - Respiratory Rate 14 04/09/2025 4:50 PM EDT Oxygen Saturation 98% 04/09/2025 4:49 PM EDT Inhaled Oxygen Concentration - - Weight - - Height - - Body Mass Index - - documented in this encounter OR Notes * Anesthesia Postprocedure Evaluation - Олег Vasquez DO - 04/09/2025 5:19 PM EDT Department of Anesthesiology Post-Anesthesia Evaluation Patient Name: Molly Beasley : 1990 Admission Date: 04/06/2025 Attending Provider: Lucho Donaldson MD Date of Service: 04/09/2025 Procedure Summary Date: 04/09/25 Room / Location: [facility] 14 / Main OR Anesthesia Start: 1449 Anesthesia Stop: 1718 Procedure: DEBRIDEMENT UPPER EXTREMITY AND CHEST (Right) Diagnosis: Abscess of arm, right (Abscess of arm, right [L02.413]) Surgeons: Db Lynn MD Responsible Provider: Олег Vasquez DO Anesthesia Type: general ASA Status: 3 - Emergent Anesthesia Type: general There were no known notable events for this encounter. Last vitals Vitals Value Taken Time BP Temp 35.3 ??C (95.54 ??F) 04/09/25 17:18 Pulse 58 04/09/25 17:18 Resp 15 04/09/25 17:18 SpO2 99 % 04/09/25 17:18 Vitals shown include unfiled device data. Evaluation Vital signs are in the patient's normal range: Yes Respiratory function stable; airway patent: Yes Cardiovascular function and hydration status are stable: Yes Mental status recovered; patient participates in evaluation: No -Patient unable to participate; sedated/ventilated Pain control satisfactory: Yes Nausea and vomiting control is satisfactory: Yes This is an OB patient: No Quality Metrics Олег Vasquez DO 04/09/2025 5:19 PM * Anesthesia Preprocedure Evaluation - Nemesio Appiah MD - 04/09/2025 6:17 AM EDT Images from the original note were not included. Department of Anesthesiology Pre-Procedure Evaluation Patient Name: Molly Beasley : 1990 Admission Date: 04/06/2025 Attending Provider: Db Lynn MD Date of Service: 04/09/2025 Scheduled Procedure: DEBRIDEMENT UPPER EXTREMITY, Right Pre-operative Diagnosis: Abscess of arm, right [L02.413] Relevant Problems No relevant active problems Allergies[1] No data recorded Patient summary reviewed. Nursing notes reviewed. ECG reviewed. Pre-procedure vital signs reviewed. General History of substance use (IVDA) - tobacco and cocaine Respiratory Cardiovascular Positives: Exercise tolerance: >4 METS Negatives: pacemaker Neuromuscular GI/Hepatic/Renal Positives: weight gain Obesity Endo/MET Hem/Lymph Skel/Skin Psych Positives: attention deficit hyperactivity disorder HEENT Obstetrics Other Syndromes Additional Notes 34 y.o. female with past medical history of IV drug use who was transferred to [facility] yesterday for concern for right upper [...] the wrist. She is subsequently transferred to [facility] for further evaluation. S/p I&D LUE 04/07/25; There was evacuation of about 1L of purulent fluid. 04/08/25: Debridement of RUE abscess extending to R shoulder and superficial tracts toward R chest/pectoralis major, washout, betadine soaked kerlix packing Physical Exam Cardiovascular - cardiovascular exam normal Pulmonary - pulmonary exam normal Abdominal No past medical history on file. Past Surgical History: Procedure Laterality Date INCISION & DRAINAGE Bilateral 04/07/2025 Procedure: INCISION & DRAINAGE AND DEBRIDEMENT UPPER EXTREMITY; Surgeon: Db Lynn MD; Location: Main OR; Service: General; Laterality: Bilateral; No family history on file. Tobacco/Alcohol/Drug HX[2] [...] 04/09/2025 418 150 - 450 Thou/uL Final Sodium Date Value Ref Range Status 04/09/2025 141 136 - 145 mmol/L Final Potassium Date Value Ref Range Status 04/09/2025 3.4 3.4 - 5.3 mmol/L Final CO2 Date Value Ref Range Status 04/09/2025 29 22 - 33 mmol/L Final Chloride Date Value Ref Range Status 04/09/2025 105 98 - 107 mmol/L Final POC Glucose Date Value Ref Range Status 04/09/2025 78 65 - 99 mg/dL Final Blood Urea Nitrogen (BUN) Date Value Ref Range Status 04/09/2025 10 8 - 21 mg/dL Final Creatinine Date Value Ref Range Status 04/09/2025 0.66 0.40 - 1.10 mg/dL Final Calcium Date Value Ref Range Status 04/09/2025 7.4 (L) 8.7 - 10.5 mg/dL Final No results found for: ABORH , [...] 0000 Anesthesia Plan ASA Score: ASA 3 - emergent Anesthesia Plan: general industrial engineering professor Note I personally evaluated and examined the patient prior to the intra-operative phase of care. Jacquie Hilario PA-C [1] No Known Allergies [2] Tobacco/Alcohol/Drug HX Tobacco Use Smoking status: Every Day Types: Cigarettes Passive exposure: Current Smokeless tobacco: Current documented in this encounter Plan of Treatment Not on file documented as of this encounter Visit Diagnoses Not on filedocumented in this encounter Administered Medications Inactive Administered Medications - up to 1 most recent administrations Medication Order MAR Action Action Date Dose Rate Site lactated ringers (LR) infusion Intravenous, Continuous PRN, Starting on Mon04/09/25 at 1449, Anesthesia Intra-op New Bag 04/09/2025 2:49 PM EDT sodium chloride 0.9% (NS) infusion Intravenous, Continuous PRN, Starting on Mon04/09/25 at 1449, Anesthesia Intra-op New Bag 04/09/2025 2:49 PM EDT calcium chloride 10 % injection Intravenous, As needed, Starting on Mon04/09/25 at 1620, Anesthesia Intra-op Given 04/09/2025 4:39 PM EDT 1 g fentaNYL 100 MCG/2ML injection Intravenous, As needed, Starting on Mon04/09/25 at 1504, Anesthesia Intra-op Given 04/09/2025 3:04 PM EDT 100 mcg HYDROmorphone (DILAUDID) 2 mg/mL injection Intravenous, As needed, Starting on Mon04/09/25 at 1547, Anesthesia Intra-op Given 04/09/2025 3:47 PM EDT 2 mg labetalol (NORMODYNE,TRANDATE) injection Intravenous, As needed, Starting on Mon04/09/25 at 1608, Anesthesia Intra-op Given 04/09/2025 4:08 PM EDT 10 mg propofol (diPRIvan) 1000 MG/100ML injection 5-75 mcg/kg/min [...] EDT 10 mcg/kg/min 4.4 mL/hr propofol (diPRIvan) injection Intravenous, As needed, Starting on Mon04/09/25 at 1456, Anesthesia Intra-op Given 04/09/2025 2:56 PM EDT 100 mg rocuronium (ZEMURON) 50 mg/5mL injection Intravenous, As needed, Starting on Mon04/09/25 at 1501, Anesthesia Intra-op Given 04/09/2025 3:46 PM EDT 30 mg sugammadex (BRIDION) injection Intravenous, As needed, Starting on Mon04/09/25 at 1714, Anesthesia Intra-op Given 04/09/2025 5:14 PM EDT 200 mg Transfuse Fresh Frozen Plasma: Routine, On Mon04/09/25 at 1636 New Bag 04/09/2025 4:36 PM EDT Transfuse RBC's: Routine, On Mon04/09/25 at 1530 New Bag 04/09/2025 4:14 PM EDT Transfuse RBC's: Routine, On Mon04/09/25 at 1611 New Bag 04/09/2025 3:35 PM EDT documented in this encounter Additional Health Concerns Infection Onset Date Last Indicated Resolved Time MRSA - Increased Transmissio n Risk Comment:Criteria for Increased Transmission Risk: -Wound unable to be covered or with uncontained drainage -Incontinent of urine/stool -Unable to contain respiratory secretions Precautions required until above criteria are resolved. 04/07/2025 04/07/2025 documented as of this encounter Care Teams Occupational Health Physiotherapist Relationship Specialty Start Date End Date System, Provider Not In PCP - General 04/09/25 documented as of this encounter
--- OUTSIDE RECORDS SUMMARY | 2025-04-09 14:58 | XMS_ITS | Encounter Summary ---
Author Organization [facility] Address [address] [place] [address] Care Team Providers Care Dental Appliance Fixer Name Role Phone System, Provider Not In Primary Care Provider Un available Reason for Visit * Auth/Cert (Routine) Specialty Diagnoses / Procedures Referred By Contac t Referred To Contact Diagnoses Hand abscess Abscess Procedures n/a Referral ID Status Reason Start Date Expiration Date Visits Re quested Visits Authorized [id number] 1 1 Encounter Details Date Type Department Care Team (Late st Contact Info) Description 04/09/2025 2:58 PM EDT - 04/09/2025 4:33 PM EDT Surgery [facility] Perioperative Surgical Services [address] [place] [phone] Db Lynn MD [address] [place] [address] DEBRIDEMENT UPPER EXTREMITY AND CHEST Social History Tobacco Use Types Packs/Day Years Used Date Smoking Tobacco: Every Day Cigarettes Passive Smoke Exposure: Current Smokeless Tobacco: Current Tobacco Cessation:Ready to Q uit: No; Counseling Given: Not Answered [facility] Utilities Answer Date Recorded In the past 12 months has [employer], gas, oil, or water [employer] threatened to shut off services in your [...] any time in the past 12 m [facility], were you homeless or living in [...] Sign Reading Time Taken Comments Blood Pressure 167/72 04/09/2025 2:46 PM EDT Pulse 80 04/09/2025 2:40 PM EDT Temperature 36.9 C (98.4 F) 04/09/2025 2:00 PM EDT Respiratory Rate 15 04/09/2025 2:00 PM EDT Oxygen Saturation 99% 04/09/2025 2:4 0 PM EDT Inhaled Oxygen Concentration - - Weight 78.8 kg (173 lb 11.6 oz) 04/09/2025 7:05 AM EDT Height 158 cm (5' 2.21 [...] mouth 2 (two) times a day. 04/14/2025 5 folic acid (FOLVITE) 1 MG tabletIndications :Abscess [...] sugar (between 50 and 69 mg/dL). 04/14/2025 5 glucose (GLUTOSE 15) 40 % oral gelIndications:Ab scess of arm, right Take 2 Tubes (75 g total) by mouth every 15 (fifteen) minutes as needed for low blood sugar (less than 50 mg/dL). 04/14/2025 5 Heparin Sodium, Porcine, (heparin, porcine,) 5000 unit/mL [...] pain. Max Daily Amount: 32 mg 04/14/2025 5 insulin lispro (HumaLOG/ADMELOG) 100 units/mL injectionIndicati ons:Abscess [...] clock. Max Daily Amount: 135 mg 04/14/2025 5 multivitamin Tab tabletIndications :Abscess of arm, right [...] (100 mg total) by mouth daily. 04/15/2025 5 vancomycin 1,250 mg in sodium chloride 0.9 % 250 mL IVPB-WTDIndicatio ns:Abscess of arm, right Infuse 1,250 mg into a venous catheter twice daily (every 12 hours). 04/15/2025 5 documented as of this encounter Progress Notes * Anisa Perez MD - 04/14/2025 12:38 PM EDT Images from the original note were not included. [facility] ID Progress Note Name: Molly Beasley Age: 34 y.o. Sex: female ASSESSMENT & PLAN Assessment: 34-year-old female with history of active IV drug use, history of xylazine infection, depression, anxiety, transferred to [facility] from OSH on 04/06 for concern of right upper extremity abscess. Patient initially presented to ([facility] on 04/02 with redness/swelling of the right [...] 04/09. Transferred from ICU to floor on 04/02 to -04/07, OR notes-. copious amounts of [...] at OSH on 04/02, transferred to [facility] on 04/06 - 04/09, blood culture = [...] to OSH on 04/02, transferred to [facility] on 1005 -Today, dressings were changed by surgical team: Pictures reviewed and wound bed appears pink with viable tissue. - Team/piano case and bench assembler messaged as difficulty with placement secondary to history of IV drug use and patient is from [place]. After multiple messages through the TT, it was agreed that team will look into transferring patient to [place] to complete the antibiotic Rx and wound care of multiple wounds involving chest/upper extremities 1. Continue vancomycin IV for 4 wks after last negative blood culture, followed by 2 wks of p.o. doxycycline -Communicated with ID pharmacist about the alternate options 2. Continue clindamycin IV #4/5 Dr. Ackerman will follow from tomorrow ANTIBIOTIC TIME OUT [...] pleural effusion. Interpreted by: Emilee Casas MD Slat Basket Maker Machine I personally reviewed the images and the [...] technique DLP: 1068 mGy-cm FINDINGS The large qmodn-ja-lhkf and positioning limits evaluation. Subcutaneous soft tissues: [...] not compromised This report was generated using [employer] Speaking dictation software. Although every attempt has been made by the provider to proofread this document, occasional misspellings and typographical errors Sign Anisa Perez MD, FIDSA, FACP [facility] Infectious Diseases Available via [employer] 04/14/2025 12:38 PM [1] Current Facility-Administered Medications Medication Dose Route Frequency Provider Last Rate Last Admin acetaminophen (TYLENOL) tablet 975 mg 975 mg Oral Q6H HANNAH Franco MD 975 mg at 04/14/25 0934 albuterol (PROVENTIL) (0.083%) 2.5 mg/3 mL nebulizer solution 2.5 mg 2.5 mg Nebulization Q6H PRN Alanis Franco MD baclofen (LIORESAL) tablet 10 mg 10 mg Oral Q8H [facility] Alanis Franco MD 10 mg at 04/14/25 0933 bisacodyl (DULCOLAX) suppository 10 mg 10 mg Rectal Daily PRN Alanis Franco MD 10 mg at 04/09/25 1129 chlorhexidine gluconate 2 % wipes - daily CHG application Topical Daily Alanis Franco MD 1 each at 04/13/25 2128 clindamycin (CLEOCIN) IVPB 900 mg in 50 [...] 1 mg 1 mg Oral Daily Alanis Franco MD 1 mg at 04/14/25 0934 gabapentin (NEURONTIN) capsule 300 mg 300 mg Oral Q8H [facility] Alanis Franco MD 300 mg at 04/14/25 0935 heparin (porcine) 5000 unit/mL injection 5,000 Units 5,000 Units Subcutaneous Q8H [facility] Alanis Franco MD 5,000 Units at 04/14/25 [...] injection 1-6 Units 1-6 Units Subcutaneous Q4H [facility] Alanis Franco MD 1 Units at 04/10/25 0428 ketorolac (TORADOL) injection 15 mg 15 mg Intravenous Q6H [facility] Alanis Franco MD 15 mg at 04/14/25 0610 labetalol (NORMODYNE,TRANDATE) injection 10 mg 10 mg Intravenous Q4H PRN Alanis Franco MD 10 mg at 04/12/25 0307 methadone (DOLOPHINE) tablet 45 mg 45 mg Oral Q8H [facility] Alanis Franco MD 45 mg at 04/14/25 [...] Toleration: Well tolerated by patient. * Edmond Marion, - 04/14/2025 9:13 AM EDT Daily General [...] PGY-1 04/14/2025 9:13 AM * Ani Brown, ROAD HOGGER OPERATOR - 04/13/2025 2:21 PM EDT C8I CRITICAL [...] for R sided interscalene block - Dilaudid engineering programmer 0.2 mg Q10m - Dilaudid 1mg IV daily prn for bedside dressing changes - Clonidine 0.1 mg BID - Tylenol 975mg ngt Q6H scheduled - Toradol 15mg IV Q8H scheduled x 15 doses - Methadone 45mg Q8H continued (in place of home dose) - Methadone outpatient maintenance dose confirmed as 130mg daily - Methadone clinic: [facility]) - Continue Gabapentin 300mg ngt Q8H - [...] hydrocortisone >250mg QD, pred 60, 10 decadron [facility] low dose ASA or plavix , therapeutic anticoagulation Restraints: this patient is not requiring restraints at this time Lines/Devices: All invasive lines discussed during rounds and use reviewed 04/13/25. Central Line Present/Indication: Inadequate Peripheral Access as noted by IV therapy team Arterial Line Present/Indication: No [place] Present Lynch Present/Indication: No [place] Present ANTIBIOTIC [...] pt remained intubated and was admitted to [facility], [place] BUE/chest/neck soft tissues obtained withplan for RTOR 04/09. Shift Events: -Dressing change at bedside by surgery team, required Dilaudid 1mg IV x1 plus Dilaudid SOCIAL INSURANCE ANALYST (0.2mg x2 intervals) for total of 1.4mg [...] Net 2604.77 ml Recent Labs 04/11/25 0057 04/12/258 04/13/25 0032 04/13/25 0916 NA 139 141 [...] HEME: Recent Labs 04/10/25 1513 04/11/25 0057 04/11/2562904/12/25 0008 04/13/25 0032 HCT 21.8* 18.7* 25.3* 22.6* 23.9* HGB 7.4* 6.3* 8.3* 7.4* 7.8* WBC 17.8* 19.5* 22.1* 17.5* 17.4* PLT 411 434 433 474* 696* ID: Temp Min: 97.1 ??F (36.2 ??C) Max: 99.5 ??F (37.5 ??C) Recent Labs 04/11/2562904/12/25 0008 04/13/25 0032 WBC 22.1* 17.5* 17.4* [...] Brown APRN 2:21 PM 04/13/2025 * Cintia Wills PharmD - 04/13/2025 9:15 AM EDT Pharmacokinetic Consult - Vancomycin Follow Up Note Molly Beasley is a 34 y.o. female currently receiving vancomycin 1250 mg IV every 12 hours for NSTI. Assessment: Analysis of the most recent level(s) using [employer] gives the following patient-specific pharmacokinetic parameters: CL: [...] regular rate Chest: Right sternal incision with Mitul in place no surrounding erythema or drainage, right axillary incision with other end of [place] no surrounding erythema or drainage. Pulm: no [...] pleural effusion. Interpreted by: Emilee Casas MD Slat Basket Maker Machine I personally reviewed the images and the [...] technique DLP: 1068 mGy-cm FINDINGS The large zlkec-fv-nkry and positioning limits evaluation. Subcutaneous soft tissues: [...] General Surgery, PGY-2 04/13/2025 6:51 AM * Aniaaron Morelchandler Brown, ROAD HOGGER OPERATOR - 04/12/2025 11:00 AM EDT C8I CRITICAL [...] interscalene block - Dilaudid infusion to dilaudid engineering programmer 0.2 mg Q10m - Stopped ketamine infusion - Clonidine 0.1 mg BID - Tylenol 975mg ngt Q6H scheduled - Toradol 15mg IV Q8H scheduled x 15 doses - Methadone 45mg Q8H continued (in place of home dose) - Methadone outpatient maintenance dose confirmed as 130mg daily - Methadone clinic: [facility]) - Continue Gabapentin 300mg ngt Q8H [...] hydrocortisone >250mg QD, pred 60, 10 decadron cadmium burner low dose ASA or plavix , therapeutic anticoagulation Restraints: this patient is not requiring restraints at this time Lines/Devices: All invasive lines discussed during rounds and use reviewed 04/12/25. Central Line Present/Indication: Inadequate Peripheral Access as noted by IV therapy team Arterial Line Present/Indication: No [place] Present Lynch Present/Indication: [place] Present, no current [...] pt remained intubated and was admitted to [facility], [place] BUE/chest/neck soft tissues obtained withplan for RTOR 04/09. Shift Events: -Extubated to nasal cannula early AM, tolerating 4LNC -Started Dilaudid SOCIAL INSURANCE ANALYST (0.2mg SOCIAL INSURANCE ANALYST dose Q10m), decreased Methadone to home dose [...] ??F (37.3 ??C) Pulse: [67-91] 84 Resp: [8-] 19 BP: (121-203)/(61-92) 121/61 Neuro/HEENT: No sedation [...] ??F (37.3 ??C) Pulse: [67-91] 84 Resp: [8-] 19 BP: (121-203)/(61-92) 121/61 Recent Labs 04/09/25 1720 04/09/259 CKTOTAL 262* 123 Recent Labs 04/09/25 1720 [...] ml Recent Labs 04/09/25 1720 04/10/25 0006 04/11/255604/12/25 000 NA 136 136 139 141 K 3.9 4.3 3.5 3.5 CO2 26 28 CL 104 102 106 105 [...] 0914 04/10/25 1513 04/11/257 04/11/25 0630 04/12/25 000 HCT 26.6* 21.7* 23.9* 21.8* 18.7* 25.3* 22.6* HGB 8.3* 7.2* 8.1* 7.4* 6.3* 8.3* 7.4* WBC 17.1* 30.3* 20.8* 17.8* 19.5* 22.1* 17.5* PLT 411 412 402 411 434 433 474* ID: Temp Min: 98.1 ??F (36.7 ??C) Max: 99.3 ??F (37.4 ??C) Recent Labs 04/11/255604/11/25 0630 04/12/25 000 WBC 19.5* 22.1* 17.5* Cultures: See micro [...] Brown APRN 3:38 PM 04/12/2025 * Clarice Hernandez DO - 04/12/2025 2:09 AM EDT Daily [...] Intake/Output Summary (Last 24 hours) at 04/12/2025 020 Last data filed at 04/12/2025 0200 Gross per 24 hour Intake 3347.8 ml Output 3180 ml Net 167.8 ml Physical Exam Gen: Intubated sedated Card: regular rate Chest: Right sternal incision with Mitul in place no surrounding erythema or drainage, right axillary incision with other end of [place] no surrounding erythema or drainage. Pulm: Intubated [...] pleural effusion. Interpreted by: Emilee Casas MD Slat Basket Maker Machine I personally reviewed the images and the [...] head) - Use of iterative construction technique 0376.35 FINDINGS: Within the upper extremity, one appears [...] technique DLP: 1068 mGy-cm FINDINGS The large zmefi-in-mkkt and positioning limits evaluation. Subcutaneous soft tissues: [...] 75 kg (165 lb 5.5 oz) IBW: [place] body weight: 50.6 kg (111 lb 7.8 [...] SCr of 0.61 mg/dL). Assessment: Analysis using [employer] gives the following predicted pharmacokinetic parameters: CL: [...] daily. Sejal Napoles PharmD A Document for: [facility] Title: Vancomycin: Pharmacy to Dose_[facility] Purpose: To provide instruction on pharmacy to [...] (Less than 28 days of age) Contact [facility] for assistance. AUC Therapeutic Drug Monitoring: [...] patient safety. For some infections, such as SENIOR CONSULTING MANAGER infections, a higher range of 500-600 may [...] In patients with fluctuating renal function, a ztiq-zt-ukxrm strategy can be utilized. Target AUC Concentrations: A target AUC of 400 to 600 is recommended for all patients except those with SENIOR CONSULTING MANAGER infections. For SENIOR CONSULTING MANAGER infections, a higher range of 500-600 may [...] that were collected prior to admission to [facility]. This will allow [employer]??? to recognize that [...] dialysis will be dosed outside of the [employer]??? software. All patients should receive weight-based loading [...] Nephrotoxic Agents: (list is not all-inclusive) Acyclovir [place] Aminoglycosides Loop Diuretics (usually higher doses) Amphotericin [...] is still accessible during the downtime, the [facility]??? web-based platform can still be utilized ([email or web address]). All general concepts or restrictions in this [...] from the original note were not included. [facility] ID Progress Note Name: Molly Beasley Age: 34 y.o. Sex: female ASSESSMENT & PLAN Assessment: 34-year-old female with history of active IV drug use, history of xylazine infection, depression, anxiety, transferred to [facility] from OSH on 04/06 for concern of [...] and synovitis in the wrist.At OSH, 2 / blood cultures came back positive number of MRSA on 04/02. At [facility], patient was febrile 200.6, currently on vancomycin, [...] placed on the right sternal incision with [place] in place Right upper extremity: Dressing/Omid wrap [...] pleural effusion. Interpreted by: Emilee Casas MD Slat Basket Maker Machine I personally reviewed the images and the [...] technique DLP: 1068 mGy-cm FINDINGS The large hyyvh-mr-pbak and positioning limits evaluation. Subcutaneous soft tissues: [...] not compromised This report was generated using [employer] Speaking dictation software. Although every attempt has been made by the provider to proofread this document, occasional misspellings and typographical errors Sign Anisa Perez MD, FID, [facility] Infectious Diseases Available via [employer] 04/11/2025 12:55 PM [1] Current Facility-Administered Medications Medication Dose Route Frequency Provider Last Rate Last Admin lactated ringers (LR) infusion 50 mL/hr Intravenous Continuous Luda Houser APRN 50 mL/hr at 04/11/25 1100 50 mL/hr at 04/11/25 1100 acetaminophen (TYLENOL) 160 mg/5 mL solution 975 mg 975 mg Feeding Tube Q6H [facility] Ani Brown APRN 975 mg at 04/11/25 1213 albuterol (PROVENTIL) (0.083%) 2.5 mg/3 mL nebulizer solution 2.5 mg 2.5 mg Nebulization Q6H PRN Ani Brown APRN baclofen (LIORESAL) tablet 10 mg 10 mg Feeding Tube Q8H [facility] Ani Brown APRN 10 mg at 04/11/25 0854 bisacodyl (DULCOLAX) suppository 10 mg 10 mg Rectal Daily PRN Ani Brown APRN 10 mg at 04/09/25 1129 chlorhexidine (PERIDEX) 0.12 % oral solution 15 mL 15 mL Mouth/Throat BID Ani Brown APRN 15 mL at 04/11/25 0900 chlorhexidine gluconate 2 % wipes - daily CHG application Topical Daily Ani Brown APRN 1 each at 04/11/25 0039 [...] g 12.5 g Intravenous Q15 Min PRN Aniaaron Brown APRN 12.5 g at 04/09/25 1204 [...] 300 mg 300 mg Feeding Tube Q8H [facility] Ani Brown APRN 300 mg at 04/11/25 0854 heparin (porcine) 5000 unit/mL injection 5,000 Units 5,000 Units Subcutaneous Q8H [facility] Ani Brown APRN 5,000 Units at 04/11/25 0855 HYDROmorphone (DILAUDID) 1 mg/mL SOCIAL INSURANCE ANALYST syringe (premix) Intravenous Continuous Joseph Campbell Jr., MD HYDROmorphone (DILAUDID) injection 1 mg 1 mg Intravenous Q1H PRN Ani Brown APRN 1 mg at 04/11/25 1011 insulin lispro (HumaLOG/ADMELOG) 100 units/mL injection 1-6 Units 1-6 Units Subcutaneous Q4H [facility] Sd Echevarria MD 1 Units at 04/10/25 0428 ketamine 1000 mg in 100 mL NS infusion (10 mg/mL) (premix) 5 mcg/kg/min Intravenous Continuous Gerald Avalos PA-C 2.3 mL/hr at 04/11/25 1100 5 mcg/kg/min at 04/11/25 1100 ketorolac (TORADOL) injection 15 mg 15 mg Intravenous Q8H PRN Ani Brown APRN 15 mg at 04/10/25 2051 labetalol (NORMODYNE,TRANDATE) injection 10 mg 10 mg Intravenous Q4H PRN Daniel Palacios PA-C linezolid (ZYVOX) IVPB 600 mg in 300 mL D5W (premix) 600 mg Intravenous Q12H Anisa Perez MD 300 mL/hr at 04/11/25 1214 600 mg at 04/11/25 1214 methadone (DOLOPHINE) tablet 60 mg 60 mg Feeding Tube Q8H HANNAH Arabella Avalos PA-C 60 mg at 04/11/25 [...] 200 mg 200 mg Feeding Tube Daily DODIE Cotto0 mg at 04/11/25 0854 [2] No Known Allergies * Ani Romero APRN - 04/11/2025 12:13 PM EDT Images from the original note were not included. Wound dressing change right upper ext wound Lateral, and medial, and chest wound Pre-Medication: IV dilaudid Wound Assessment: Lateral [place] with viable tissue, tunnels laterally, no odor or purulent drainage, scant bleeding Medial [place] with viable tissue, no purulent drainage, no odor, scant bleeding Chest [place] with viable tissue, area tunnels deeply going [...] block - Transition Dilaudid infusion to dilaudid engineering programmer + continue 1mg IV Q1H PRN - [...] setting of multiple surgeries - Methadone clinic: [facility] Care [facility]) - Continue Gabapentin 300mg ngt Q8H [...] is 8.3/25.3 - Transfuse for H/H < 7/21 - [...] hydrocortisone >250mg QD, pred 60, 10 decadron [facility] low dose ASA or plavix , therapeutic [...] pt remained intubated and was admitted to [facility], [place] BUE/chest/neck soft tissues obtained withplan for RTOR 04/09. Shift Events: - Contacted anesthesia pain for evaluation of right interscalene block for better pain management - Increased methadone to 60 mg TID for better pain management and to wean the dilaudid gtt - Will add dilaudid SOCIAL INSURANCE ANALYST without continuous infusion - Post-pyloric DHT placed [...] 91 Resp: [1-27] 27 BP: (133-188)/(49-120) 157/78 Neuro/HEENT: Alert and [...] ??F (36.6 ??C) Pulse: [67-91] 91 Resp: [1] 27 BP: (133-188)/(49-120) 157/78 Recent Labs 04/08/25 2115 04/09/25 0324 04/09/25 [...] 3070 ml Net -85.01 ml Recent Labs 04/08/25211404/09/254 04/09/25 1221 04/09/25 1720 04/10/25 0006 04/11/25 [...] 1720 LACTIC 1.1 1.4 HEME: Recent Labs 04/08/25211404/09/254 04/09/25 1221 04/09/25 1720 04/10/25 0006 04/10/25 [...] Convert IV Dilaudid infusion to patient-controlled analgesia (SOCIAL INSURANCE ANALYST) on demand- only setting. Wean off ketamine [...] regular rate Chest: Right sternal incision with [place] in place no surrounding erythema or drainage, right axillary incision with other end of [place] no surrounding erythema or drainage. Pulm: Intubated [...] pleural effusion. Interpreted by: Emilee Casas MD Slat Basket Maker Machine I personally reviewed the images and the [...] head) - Use of iterative construction technique 7713.35 FINDINGS: Within the upper extremity, one appears [...] technique DLP: 1068 mGy-cm FINDINGS The large wjtkc-va-gxji and positioning limits evaluation. Subcutaneous soft tissues: [...] Case IDs Date Procedure Surgeon Location Status [id number] 04/07/25 INCISION & DRAINAGE AND DEBRIDEMENT UPPER EXTREMITY Db Lynn MD Main OR Comp [id number] 04/08/25 INCISION & DRAINAGE Galdino Cunningham MD Main OR Comp [id number] 04/09/25 DEBRIDEMENT UPPER EXTREMITY AND CHEST Db Lynn MD Main OR Comp [id number] 04/10/25 DEBRIDEMENT WOUND RIGHT UPPER EXTREMITY, LEFT [...] ??F (37.4 ??C) Date 04/10/25 1500 - 04/11/25 0659 04/11/25 0700 - 04/12/25 0659 Shift 1008-2651 4153-1968 24 Hour Total 1729-8385 1222-2381 2530-3125 24 Hour Total INTAKE I.V.(mL/kg) 560.9(7.5) 363(4.8) [...] Volume (mL) ( lactated ringers (LR) infusion) 512 160 6864.3 Volume (mL) (sodium chloride (NS) 0.9 % [...] left nostril) 90 30 180 IV Piggyback 202 722 6120 Volume (mL) (linezolid (ZYVOX) IVPB 600 mg in 300 mL D5W (premix)) 300 600 Volume (mL) (magnesium sulfate IVPB 2 g in 50 mL SW PREMIX) 50 50 Volume (mL) (calcium gluconate IVPB 2 g in 100 mL NS PREMIX) 100 100 Volume (mL) (piperacillin-tazobactam (ZOSYN) 4.5 g in sodium chloride-MBP (NS) 100 mL IVPB-MBP) 459052 300 Shift Total(mL/kg) 750.9(10) 993(13.2) 3384.3(45) OUTPUT Urine(mL/kg/hr) 1080(1.8) 285 2510 Urine Output (mL) (Urethral Catheter (Adult) 04/08/25 2018 latex 16 Fr 10 mL balloon size 10 mL balloon inflation volume) 6705 645 7669 Stool Unmeasured Stool Occurrence 1 x 3 [...] from the original note were not included. [facility] ID Progress Note Name: Molly Beasley Age: 34 y.o. Sex: female ASSESSMENT & PLAN Assessment: 34-year-old female with history of active IV drug use, history of xylazine infection, depression, anxiety, transferred to [facility] from OSH on 04/06 for concern of [...] number of MRSA on 04/02. At [facility], patient was febrile 200.6, currently on vancomycin, [...] 0410 04/10/25 0025 04/10/25 0022 04/10/25 0006 04/09/25200404/09/25 1720 04/09/25 1242 04/09/25 1221 SODIUM mmol/L [...] pleural effusion. Interpreted by: Emilee Casas MD Slat Basket Maker Machine I personally reviewed the images and the [...] head) - Use of iterative construction technique 2929.35 FINDINGS: Within the upper extremity, one appears [...] technique DLP: 1068 mGy-cm FINDINGS The large thqbt-kj-kblz and positioning limits evaluation. Subcutaneous soft tissues: [...] not compromised This report was generated using [employer] Speaking dictation software. Although every attempt has been made by the provider to proofread this document, occasional misspellings and typographical errors Sign Anisa Perez MD, FIDSA, [facility] Infectious Diseases Available via [employer] 04/10/2025 9:39 AM [1] Current Facility-Administered Medications Medication Dose Route Frequency Provider Last Rate Last Admin lactated ringers (LR) infusion 50 mL/hr Intravenous Continuous Luda Houser APRN 50 mL/hr at 04/10/25 0704 50 mL/hr at 04/10/25 0704 acetaminophen (TYLENOL) 160 mg/5 mL solution 975 mg 975 mg Feeding Tube Q6H [facility] Ani Brown APRN 975 mg at 04/10/25 0519 albuterol (PROVENTIL) (0.083%) 2.5 mg/3 mL nebulizer solution 2.5 mg 2.5 mg Nebulization Q6H PRN Ani Brown APRN baclofen (LIORESAL) tablet 10 mg 10 mg Feeding Tube Q8H [facility] Ani Brown APRN 10 mg at 04/10/25 [...] 300 mg 300 mg Feeding Tube Q8H [facility] Ani Brown APRN 300 mg at 04/10/25 0551 heparin (porcine) 5000 unit/mL injection 5,000 Units 5,000 Units Subcutaneous Q8H [facility] Ani Brown APRN 5,000 Units at 04/10/25 [...] injection 1-6 Units 1-6 Units Subcutaneous Q4H [facility] Sd Echevarria MD 1 Units at 04/10/25 [...] (NS) 100 mL IVPB- MBP 4.5 g [id number] Ani Brown APRN 33.3 mL/hr at 04/10/25 0554 4.5 g at 04/10/25 0554 polyethylene glycol (miraLAx) packet 17 g 17 g Feeding Tube Daily Ani Brown APRN 17 g at 04/10/25 0840 propofol (diPRIvan) 1000 MG/100ML injection 5-75 mcg/kg/min Intravenous Titrated Ani Brown APRN 22.1 mL/hr at 04/10/25 0700 50 mcg/kg/min at 04/10/25 0700 propofol (diPRIvan) IV bolus from bottle via smart pump 10 mg 10 mg Intravenous Q5 Min PRN Ani Brown APRN 10 mg at 04/09/25 1840 propofol (diPRIvan) IV bolus from bottle via smart pump 20 mg 20 mg Intravenous Q5 Min PRN Ani Brown APRN 20 mg at 04/09/25 0341 senna-docusate (SENNA-S) 8.6-50 MG tablet 2 tablet 2 tablet Feeding Tube BID Ani Brown, ROAD HOGGER OPERATOR 2 tablet at 04/10/25 0839 [2] No [...] Intake/Output Summary (Last 24 hours) at 04/10/2025 0946 Last data filed at 04/10/2025 0708 Gross [...] pleural effusion. Interpreted by: Emilee Casas MD Slat Basket Maker Machine I personally reviewed the images and the [...] head) - Use of iterative construction technique 2476.35 FINDINGS: Within the upper extremity, one appears [...] technique DLP: 1068 mGy-cm FINDINGS The large ipnvu-ja-otqh and positioning limits evaluation. Subcutaneous soft tissues: [...] setting of multiple surgeries - Methadone clinic: [facility]) - Continue Gabapentin 300mg ngt Q8H [...] hydrocortisone >250mg QD, pred 60, 10 decadron cadmium burner low dose ASA or plavix , therapeutic [...] pt remained intubated and was admitted to C8I, CT BUE/chest/neck soft tissues obtained withplan for [...] ketamine, 5 mcg/kg/min, Last Rate: 5 mcg/kg/min (04/10/25 1200) propofol, 5-75 mcg/kg/min, Last Rate: 50 mcg/kg/min (04/10/25 1200) CV: Temp: [95.9 ??F (35.5 ??C)-100 ??F (37.8 ??C)] 98.6 ??F (37 ??C) Pulse: [60-102] 88 Resp: [4-32] 14 BP: (123-199)/(57-146) 188/81 Recent Labs 04/08/25211404/09/25 0324 04/09/25 1025 04/09/25 1720 04/09/252128 CKTOTAL 138 97 91 262* 123 Recent Labs 04/09/25102404/09/25 17204/09/252128 CKTOTAL 91 262* 123 PULM: RR: 14,SpO2:99 [...] in the last 72 hours. Recent Labs 04/08/25 211 TRIG 234* RENAL: I/O this shift: In: 1219.9 [I.V.:429.9; Blood:300; NG/GT:90; IV Piggyback:400] Out: 490 [Urine:490] Intake/Output Summary (Last 24 hours) at 04/10/2025 1314 Last data filed at 04/10/2025 1200 Gross per 24 hour Intake 7260.95 ml Output 2940 ml Net 4320.95 ml Recent Labs 04/08/25 0530 04/08/25211404/09/2532304/09/25 12204/09/25 1720 04/10/25 0006 NA 140 138 141 [...] - 1.33 mmol/L Final Recent Labs 04/08/25211404/09/25 172 LACTIC 1.1 1.4 HEME: Recent Labs 04/08/25 0504/08/25211404/09/2532304/09/25 12204/09/25171904/10/25 0006 04/10/25 0914 HCT 25.1* 22.4* 21.7* [...] Max: 100 ??F (37.8 ??C) Recent Labs 04/09/25171904/10/25 00004/10/25 0914 WBC 17.1* 30.3* 20.8* No results [...] Anesthesiology and Surgical Critical Care * Edmond Marion DO - 04/10/2025 12:51 AM EDT Surgery [...] Case IDs Date Procedure Surgeon Location Status [id number] 04/07/25 INCISION & DRAINAGE AND DEBRIDEMENT UPPER EXTREMITY Db Lynn MD [facility] OR Comp [id number] 04/08/25 INCISION & DRAINAGE Galdino Cunningham MD [facility] OR Comp [id number] 04/09/25 DEBRIDEMENT UPPER EXTREMITY AND CHEST Db Lynn MD [facility] OR Comp [id number] 04/10/25 DEBRIDEMENT WOUND RIGHT UPPER EXTREMITY, LEFT UPPER EXTREMITY, RIGHT CHEST WALL Shaila Solorio MD [facility] OR [facility] Assessment & Plan 34 y.o. female s/p [...] from the original note were not included. [facility] ID Progress Note Name: Molly Beasley Age: 34 y.o. Sex: female ASSESSMENT & PLAN Assessment: 34-year-old female with history of active IV drug use, history of xylazine infection, depression, anxiety, transferred to [facility] from OSH on 04/06 for concern of [...] number of MRSA on 04/02. At [facility], patient was febrile 200.6, currently on vancomycin, [...] Orders 04/06/25 2231 OBJECTIVE Physical Examination: Vitals: 04/09/25 0930 BP: [...] pleural effusion. Interpreted by: Emilee Casas MD Slat Basket Maker Machine I personally reviewed the images and the [...] head) - Use of iterative construction technique 4664.35 FINDINGS: Within the upper extremity, one appears [...] technique DLP: 1068 mGy-cm FINDINGS The large pztvp-hx-ercm and positioning limits evaluation. Subcutaneous soft tissues: [...] not compromised This report was generated using TinyCo Speaking dictation software. Although every attempt has been made by the provider to proofread this document, occasional misspellings and typographical errors Sign Anisa Perez MD, FID, [facility] Infectious Diseases Available via Accel[employer] 04/09/2025 11:17 AM [1] Current Facility-Administered Medications Medication Dose Route Frequency Provider Last Rate Last Admin lactated ringers (LR) infusion 100 mL/hr Intravenous Continuous Ani Brown APRN 100 mL/hr at 04/09/25 1000 100 mL/hr at 04/09/25 1000 acetaminophen (TYLENOL) 160 mg/5 mL solution 975 mg 975 mg Feeding Tube Q6H [facility] Ani Brown APRN 975 mg at 04/09/25 0339 albuterol (PROVENTIL) (0.083%) 2.5 mg/3 mL nebulizer solution 2.5 mg 2.5 mg Nebulization Q6H PRN Ani Brown APRN baclofen (LIORESAL) tablet 10 mg 10 mg Feeding Tube Q8H [facility] Ani Brown APRN 10 mg at 04/09/25 [...] 300 mg 300 mg Feeding Tube Q8H [facility] Ani Brown APRN 300 mg at 04/09/25 0537 heparin (porcine) 5000 unit/mL injection 5,000 Units 5,000 Units Subcutaneous Q8H [facility] Ani Brown APRN 5,000 Units at 04/09/25 [...] injection 1-6 Units 1-6 Units Subcutaneous Q4H [facility] Sd Echevarria MD ketorolac (TORADOL) injection 15 [...] (NS) 100 mL IVPB- MBP 4.5 g [id number] Ani Brown APRN 33.3 mL/hr at 04/09/25 [...] 20 mg Intravenous Q5 Min PRN Ani Brown APRN 20 mg at 04/09/25 0341 senna-docusate (SENNA-S) 8.6-50 MG tablet 2 tablet 2 tablet Feeding Tube BID Ani Brown APRN 2 tablet at 04/09/25 0845 vancomycin (VANCOCIN) IV dosing PER PHARMACY PROTOCOL Pharmacy Protocol Orders Pharmacy Protocol Orders Ani Brown APRN vancomycin (VANCOCIN) 1,250 mg in sodium chloride (NS) 0.9 % 250 mL IVPB-WTD 1,250 mg Intravenous Q12H Ani Brown APRN 166.7 mL/hr at 04/09/25 0339 1,250 mg [...] daily (confirmed home maintenance dose) -Methadone clinic: [facility]) -Gabapentin 300mg ngt Q8H -Baclofen 10mg ngt Q8H -COWS monitoring Q4H Respiratory Intubation for airway protection -Ventilator protocol -Propofol for ventilator tolerance -Wean supplemental O2 as tolerated for SpO2 goal > 92% -Albuterol Q6H prn for wheezing GI Constipation most likely due to opioid usage NGT to suction Bowel Regimen (dulcolax, zofran, miralax, senna) Protonix 40 mg QD Add Movantik 25mg 10 AM Lynch Catheter in place, draining clear [...] hydrocortisone >250mg QD, pred 60, 10 decadron [facility] low dose ASA or plavix , therapeutic [...] pt remained intubated and was admitted to [facility], CT BUE/chest/neck soft tissues obtained withplan for RTOR 04/09. Shift Events: Objective/Physical Exam This note encompasses entire shift, physical exam completed at: 0700 Vitals: Pulse:73, Resp:13, BP:BP Min: 122/58 Max: 155/70 MAP: SpO2:99 % CVP: Temp Last 24 hrs: Temp Min: 92.3 [...] last 7 days Lab Units 04/09/25 0345 04/09/25 0324 04/09/25 0036 04/08/25 2218 04/08/25 2115 04/08/25 0530 GLUCOSE mg/dL -- 77 -- -- [...] large colonic stool burden. Interpreted by: Emilee SEWELLadiology Resident I personally reviewed the images and [...] pleural effusion. Interpreted by: Emilee Casas MD Slat Basket Maker Machine I personally reviewed the images and the [...] head) - Use of iterative construction technique 5876.35 FINDINGS: Within the upper extremity, one appears [...] Surgery Progress Note Assessment & Plan Assessment: Molyl Beasley is a 34 y.o. female with [...] Case IDs Date Procedure Surgeon Location Status [id number] 04/07/25 INCISION & DRAINAGE AND DEBRIDEMENT UPPER EXTREMITY Db Lynn MD [facility] Comp [id number] 04/08/25 INCISION & DRAINAGE Galdino Cunningham MD [facility] Comp [id number] 04/09/25 DEBRIDEMENT UPPER EXTREMITY Db Lynn MD [facility] Not [facility] Assessment & Plan Assessment: This is a [...] PGY1 04/09/2025 12:59 AM * Ani Brown, ROAD HOGGER OPERATOR - 04/08/2025 9:29 PM EDT C8I CRITICAL [...] daily (confirmed home maintenance dose) -Methadone clinic: [facility]) -Gabapentin 300mg ngt Q8H -Baclofen 10mg [...] hydrocortisone >250mg QD, pred 60, 10 decadron [facility] low dose ASA or plavix , therapeutic anticoagulation Restraints: bilateral soft wrist restraints in place to prevent inadvertent removal of necessary medical devices and to maintain patient safety, use reviewed today and remain medically necessary Lines/Devices: All invasive lines discussed during rounds and use reviewed 04/09/25. Central Line Present/Indication: Inadequate Peripheral Access as noted by IV therapy team Arterial Line Present/Indication: No [place] Present Lynch Present/Indication: Strict I&O ANTIBIOTIC TIME [...] pt remained intubated and was admitted to C8I, CT BUE/chest/neck soft tissues obtained withplan for [...] mg/hr (04/09/25699) propofol, 5-75 mcg/kg/min, Last Rate: 55 mcg/kg/min [...] 04/09/2025 0820 Last data filed at 04/09/2025 07 Gross per 24 hour Intake 6960.77 ml [...] Labs 04/08/252114 LACTIC 1.1 HEME: Recent Labs 04/08/2552904/08/25211404/09/25 032 HCT 25.1* 22.4* 21.7* HGB 8.0* 7.2* 7.0* WBC 15.0* 9.4 12.3* PLT [phone] ID: Temp Min: 92.3 ??F (33.5 ??C) Max: 97.6 ??F (36.4 ??C) Recent Labs 04/08/2552904/08/25211404/09/25 032 WBC 15.0* 9.4 12.3* Cultures: See micro in EPIC ENDOCRINE: Results from last 7 days Lab Units 04/09/25 0759 04/09/25 0345 04/09/25 0324 04/09/25 0036 04/08/25221704/08/25211404/08/25529 GLUCOSE mg/dL -- -- 77 -- -- [...] APRN 8:20 AM 04/09/2025 * Kia Land RPH - 04/08/2025 4:20 PM EDT Pharmacokinetic Consult - Vancomycin Follow Up Note Molly Beasley is a 34 y.o. female currently receiving vancomycin 1250 mg IV every 12 hours for bacteremia. Assessment: Analysis of the most recent level(s) using SmallableX gives the following patient-specific pharmacokinetic parameters: CL: [...] formula based on SCr of 0.51 mg/dL). Sawson Land, RPH * Monica Adams RN - 04/08/2025 10:01 AM EDT 04/08/25 0950 General Information Admission Type inpatient Arrived From [...] In the past 12 months has the electric, gas, oil, or water [employer] threatened to shut off services in your [...] comments) (SNF) Patient/Family Anticipated Services at Transition alf;outpatient care;mental health services;medical reimbursement specialist;durable medical equipment Transportation Anticipated health plan transportation Discharge Facility/Level of Care Needs nursing facility, skilled Discharge Coordination/Tasks Status Post Discharge Needs/Treatments Snf Home Visit;IV Medications;OT;PT;Wound Care Patient/Patient Psychiatric Nurse Practitioner Provided With Choices Of Facility Preference(s);Homecare Company Preferences(s) [facility] [place] [place], [facility], [facility] [place], [facility] [place], [facility], Dalia Rizvi at [facility] Homecare Company Preference(s) [facility], [facility], [facility], [facility], [facility] Insurance Benfits/Coverage Discussed with Patient Plan Plan STR vs home with HC Patient/Family in Agreement with Plan yes * Anisa Perez MD - 04/08/2025 9:33 AM EDT Images from the original note were not included. [facility] ID Progress Note Name: Molly Beasley Age: 34 y.o. Sex: female ASSESSMENT & PLAN Assessment: 34-year-old female with history of active IV drug use, history of xylazine infection, depression, anxiety, transferred to [facility] from [facility] on 04/06 for concern of right upper [...] number of MRSA on 04/02. At [facility], patient was febrile 200.6, currently on vancomycin, [...] 60 Pharmacy Protocol Orders Pharmacy Protocol Orders 10/05/25 2231 OBJECTIVE Physical Examination: Vitals: 04/08/25 0400 [...] pleural effusion. Interpreted by: Emilee Casas MD Slat Basket Maker Machine I personally reviewed the images and the [...] head) - Use of iterative construction technique 9435.35 FINDINGS: Within the upper extremity, one appears [...] technique DLP: 1068 mGy-cm FINDINGS The large ceomj-as-vsbb and positioning limits evaluation. Subcutaneous soft tissues: [...] not compromised This report was generated using MashWorx dictation software. Although every attempt has been made by the provider to proofread this document, occasional misspellings and typographical errors Sign Anisa Perez MD, FID, [facility] Infectious Diseases Available via [employer] 04/08/2025 9:33 AM [1] Current Facility-Administered Medications Medication Dose Route Frequency Provider Last Rate Last Admin lactated ringers (LR) infusion 100 mL/hr Intravenous Continuous Clarice Hernandez DO 100 mL/hr at 04/07/25 1640 100 [...] (NS) 100 mL IVPB- MBP 4.5 g [id number] Clarice Hernandez DO Stopped at 04/08/25 0912 [...] drug use who was transferred to [facility] yesterday for concern for right upper extremity [...] (Tympanic) Diet: Diet NPO; Meds I/O: Date 04/07/25 0700 - 04/08/25 0659 04/08/25 0700 - 04/09/25 0659 Shift 2426-7436 8265-6318 6081-3857 24 Hour Total 0595-2932 2037-8029 7735-4369 24 Hour Total INTAKE I.V.(mL/kg) 3(0) 1006(13.7) [...] pleural effusion. Interpreted by: Emilee Casas MD Slat Basket Maker Machine I personally reviewed the images and the [...] technique DLP: 1068 mGy-cm FINDINGS The large bknzp-xe-jwbd and positioning limits evaluation. Subcutaneous soft tissues: [...] Case IDs Date Procedure Surgeon Location Status [id number] 04/07/25 INCISION & DRAINAGE AND DEBRIDEMENT UPPER EXTREMITY Db Lynn MD [facility] OR Comp [id number] 10/7/25 INCISION & DRAINAGE Karo Tirado MD Main OR Not [facility] Assessment & Plan Assessment: Molly Beasley is [...] Max: 100.6 ??F (38.1 ??C) Date 04/07/25 07 - 04/08/25 0659 Shift 7845-4742 9743-4337 6338-5691 24 Hour Total INTAKE I.V.(mL/kg) 3(0) 1006(13.7) [...] underwent I&D by general surgery team at [facility] 04/03. She then developed worsening of right upper extremity swelling. Blood cultures and wound culture at outside hospital revealed MRSA. Repeat CT of right forearm with IV contrast on 04/06 showedphlegmon/developing abscess within biceps muscle, possibility of focal necrosis with concern for sev ere myositis of necrotizing fasciitis. She was transferred [...] of Discharge: 04/11/2025 {Click to update YAHAIRA: [id number]} VTE Time Out IMPROVE SCORE: 0 (04/06/2025 [...] over 30 Minutes Intravenous Once 04/07/25 1016 04/07/25 2229 04/07/25 0100 vancomycin (VANCOCIN) 1,250 mg in [...] Bacteremia Pharmacy Protocol Orders Pharmacy Protocol Orders 04/06/25 2231 Subjective: Chief complaint No chief complaint on file. Patient is being seen for acute medical problems and follow-up for chronic medical issues as mentioned in the assessment and plan above. # Event overnight: No acute events reported Ms. Beasley was seen earlier today. she reported feeling significant pain over her right upper extremity with swelling Objective: Last 3 Filed Values 04/06/250 04/07/25 0030 04/07/25 0315 BP: (!) 167/93 [...] 100 mL/hr, Last Rate: 100 mL/hr (04/06/25 2703) Diagnostic studies: I have reviewed the labs [...] images to review. Bhavin Parks MD * Zeferino Lovelace RN - 04/07/2025 9:23 AM EDT [...] drug use who was transferred to [facility] yesterday for concern for right upper extremity [...] wrist. She is subsequently transferred to [facility] for further evaluation. Yesterday, some of the [...] 04/07/25 0604/07/25 07 - 04/08/25 0659 Shift 0935-7845 4784-9231 1092-1791 24 Hour Total 2275-4163 2019-4850 3874-1094 24 Hour Total INTAKE I.V. 1000(13.6) 1000(13.6) [...] in the last 72 hours. Signed: Eliana Villaseñor MD 04/07/25 6:21 AM * Ryland Varghese PharmD - 04/07/2025 12:47 AM EDT Pharmacokinetic Consult - Vancomycin Follow Up Note Molly Beasley is a 34 y.o. female transferred to [facility] from an outside hospital where she had been receiving vancomycin 1000mg IV every 8 hours for bacteremia since 04/02/25. At the outside hospital, on 04/06/25 a ~7 hour vancomycin trough returned 19.3mg/L, and SCr was 0.59mg/dL. Unableto obtain labs at this time due to poor access, will utilize levels from outside hospital to continue dosing. Assessment: Analysis of the most recent level(s) using Oxagen gives the following patient-specific pharmacokinetic parameters: CL: [...] and clonidine as prescribed, presents to [facility] as a direct transfer from outside hospital [...] patient is on 130 mg methadone from [facility]., Was confirmed by outside hospital physician. Patient [...] for MRSA Blood culture 04/02-positive for MRSA 08/04 Medications-methadone 130 mg daily, ibuprofen 400 mg [...] 130 mg of methadone, follows up with [facility]., Was confirmed by provider at outside hospital. [...] data in the 24 hours ending 04/06/25 2315 Physical Exam Constitutional: General: She is not [...] the original note were not included. [facility] Nutrition Note Visit Type: initial assessment Reason [...] Net IO Since Admission: 10,573.7 mL [04/10/25 160] Nutrition Physical Findings: Physical Appearance: on ventilator [...] - 2211 Kcals/day (20 - 30 Kcals/kg) Otoe: RMR (Otoe-St. Jeor Equation): 1383.5 Otoe-St. Jeor (Considerations): RMR x 1.3= 1819kcals based on 73.7 kg (162 lb 7.7 oz) Protein Needs: 88 - 147 gm, (1.2 - 2.0g/kg) based on 73.7 kg (162 lb 7.7 oz) Fluids: 2211ml based on TUMBLING INSTRUCTOR Method Estimated/Assessed Carbohydrates Needs: 221g Current Diet: [...] RN - 04/09/2025 12:58 PM EDT [facility] Wound Care Consult Visit Date: 04/09/2025 Patient [...] user Difficult intravenous access ADHD * Chantel Wallace LCSW - 04/09/2025 10:12 AM EDTAssociated Order(s): IP CONSULT TO SOCIAL WORK; IP CONSULT TO SOCIAL WORK Images from the original note were not included. Health Social Work Brief Note Date: 04/09/2025 Referred by: Provider/RACQUEL and Case Coordination Reason for Referral: Identification of Legally Authorized Psychiatric Nurse Practitioner and Substance Use Assessment Previous Social Work Encounters: None noted in EMR Molly Beasley is a 34 y.o. female currently admitted for: Hand abscess Assessment & Plan Social Work Interventions Unable to introduce self/services at this time, however, will make additional attempt at a later time Summary Molly Beasley was referred to Health Social Work (SW) by case management coordinator and surgical team ROAD HOGGER OPERATOR for identification of LAR and substance use assessment. Upon assessment, Molly was intubated. Giventhis, SW will follow-up when they are able to meaningfully participate in assessment. Health social organization professor reviewed EMR. Called and spoke with Pt's [...] in order to prevent delays in care. [facility] has coordinated for anesthesia for TLC to be placed. Order will be cancelled at this time. This was communicated with the ordering provider. Please reachout to IPT for any questions or concerns. TAMI Mackay 04/07/2025 1:16 PM Please direct any questions regarding procedure time/ date to the specific imaging modality Ultrasound: 92891 or [place] Text Inpatient Procedure Team * Anisa Perez MD - 04/07/2025 9:40 AM EDTAssociated Order(s): IP CONSULT TO INFECTIOUS DISEASES Images from the original note were not included. [facility] ID Consult Note Date of Consult: 04/07/2025 Physician Requesting Consult: Bhavin Parks MD Reason for Consultation: MRSA bacteremia, multiple bilateral upper extremity abscesses, IV drug use Name: Molly Beasley Age: 34 y.o. Sex: female Admit Date: 04/06/2025 8:42 PM ASSESSMENT & PLAN Assessment: 34-year-old female with history of active IV drug use, history of xylazine infection, depression, anxiety, transferred to [facility] from OSH on 04/06 for concern of [...] number of MRSA on 04/02. At [facility], patient was febrile 200.6, currently on vancomycin, evaluated by orthopedics and general surgery. IDis consulted for evaluation today 1. Right upper extremity abscess in the setting of active IV drug use prior history of xylazine infection. CT at [facility] showed worsening compared with imaging on 04/02 [...] input 7. If Blood cultures at [facility] are positive, then pursue YANA Communicated with [...] depression, anxiety patient was admitted to [facility] on 04/06 as transfer from OSH secondary [...] no soft tissue gas. Transferred to [facility] for higher level of care. At [facility], patient with Tmax 100.6, no labs available, [...] ringers (LR) infusion 100 mL/hr Intravenous Continuous Fnu MD Courtney 100 mL/hr at 04/06/25 2333 100 mL/hr at 04/06/25 2333 acetaminophen (TYLENOL) tablet 650 mg 650 mg Oral Q6H PRN Fnu MD Courtney 650 mg at 04/07/25 0055 [...] Stability: Not on file OBJECTIVE vitals: Vitals: 04/06/25205504/06/250 04/07/25 0030 04/07/25 0315 BP: (!) 167/93 [...] where applicable This report was generated using TinyCo Speaking dictation software. Although every attempt has been made by the provider to proofread this document, occasional misspellings and typographical errors Sign Anisa Perez MD, [facility], [facility] Infectious Diseases Available via [employer] 04/07/2025 9:41 AM [1] No Known Allergies [...] history noted below who presents to [facility] as a transfer from outside facility for [...] Patient was given IV antibiotics and I&D bygeneral surgery on 04/03 without complication. Patient was also noted to have swelling in her left upper extremity. Repeat CT of the right arm on 04/06 with concern for worsening infection. Patient wastransferred to [facility] to rule out nec fasc. Patient is [...] questions.. Harmony Marroquin MD 6:20 AM * [place] Myriam De La Fuente PA-C - 04/06/2025 [...] fasciitis. She reports she originally presented to [facility] this past Monday for worsening pain of [...] light touch. Fires EPL, FPL, interossi, ADQ, parts sales associate strength, wrist extensors/flexors. Radial pulse palpable, entire [...] light touch. Fires EPL, FPL, interossi, ADQ, parts sales associate strength, wrist extensors/flexors. Radial pulse palpable, forearm warm to the touch, capillary refill within 2 seconds. Relevant data reviewed: WBC 12.7, H/H 925.7, creatinine 0.59. Blood culture positive for MRSA [...] the OSH significant for WBC 12.7, H/H 25.7, creatinine 0.59. Blood culture positive for MRSA [...] EDT Outcome Evaluation: Report given to Remigio RN and Ambulance staff. Pt informed of transfer, [...] PM EDT Request for Documentation Clarification [facility] Molly Beasley ; VISIT [phone] Query Response Sent: 04/14/25 12:41 EDT From: Galdino Cunningham MD Query question: Based on your professional medical judgement and review of the clinical indicators listed below, can you validate this diagnosis? Please complete by selecting one of the options below. Provider response: Acute hypoxic respiratory failure has been ruled out Original Query Sent: 04/14/25 12:25 EDT From: Patricia Palacios, CDIS To: Galdino Cunningham MD By submitting this [...] cell count at 15.0 Thou/uL (04/08/2025, Anisa Perez, PROGRESS), Hematocrit levels at 25.1* and 22.4* [...] Lactated Ringers at 50 mL/hr (04/11/2025, Joseph Campbell, PROGRESS). * Plan of Care - Malaika Stewart CM - 04/14/2025 10:52 AM EDT Ongoing Case Management Care Plan Note Summary: Patient is s/p I&D of RUE abscess. She continues on IV antibiotics and SOCIAL INSURANCE ANALYST for pain management. Per EGS team, she will not need IV antibiotics upon discharge. Therefore, patient should be able to return home with home care services for wound care. Additional HC referrals made to agencies that service [place], [place]. CM to follow clinical progress towards return home. Recommendation: Home with services, SNF vs. Transfer back to [facility] Addendum 2:30PM: Per ID, patient will need six more weeks of IV antibiotics. She has SNF referrals pending, with no bed offer as of yet. CM made additional SNF referrals in the [facility] area. EGS plans to contact [facility] to try to transfer patient back now [...] * Rehab Therapy Consults - Clarice Montoya CCC-TOP AND TRIM WORKER - 04/12/2025 9:12 AM EDT Speech Pathology Clinical Swallow Evaluation IMPRESSION & PLAN Swallow Function Clinically functional oropharyngeal swallow, no overt s/sx of airway compromise noted Mentation appeared adequate during assessment, vocal quality clear/WFL, respiratory status stable May initiate PO diet with distant supervision and good oral care TOP AND TRIM WORKER Plan: Monitor to ensure diet tolerance and [...] goal statement: To drink water Preferred Language: [place] Citizen Pain: No pain reported, No pain-associated behaviors [...] generates a functional outcome score. Based on TOP AND TRIM WORKER recommendations, patient is assigned food level Level 7: Regular/Easy to Chew and drink level Level 0: Thin Liquids, supporting a functional outcome score of FDS Levels: 8. The presence of a (+) indicates the initiation of PO trials within a therapeutic context. ASSESSMENT TOP AND TRIM WORKER Diagnosis: Oral and pharyngeal stages of swallowing appear WFL Suggested Consults/Interventions: N/A Functional Status: Nearing baseline function Therapy Frequency: 1-2x/week Rehab Potential: Good to achieve functional improvement towards stated goals Post Acute TOP AND TRIM WORKER Needs: TBD based on clinical progress Goals - Pt will consume a Regular diet with Thin Liquids liquids without evidence of acute dysphagia/aspiration-related complications over 1-3 visit(s) Plan of care discussed with patient, Provider, and RN EDUCATION The patient, Provider, and RN were verbally instructed and educated on patient's results/recommendations. The patient, Provider, and RN verbalized understanding of all information provided. Clarice Montoya CCC-TOP AND TRIM WORKER 04/12/25 * Plan of Care - Joe Campbell RRT - 04/12/2025 5:37 AM EDT Problem: Mechanical Ventilation Invasive Goal: Effective Communication Outcome: Met Goal: Optimal Device Function Outcome: Met Goal: Mechanical Ventilation Liberation Outcome: Met Problem: Adult Inpatient Plan of Care Goal: Plan of Care Review Flowsheets (Taken 04/12/2025 5051) Progress: improving Outcome Evaluation: Pt successfully weaned [...] from the original note were not included. [facility] [address] ICU [address] [facility] [id number] OPERATIVE REPORT Patient Name: Molly Beasley Date of : 1990 Date of Procedure: 04/10/2025 Surgeons and Role: * Shaila Solorio MD - Primary Pre-op Diagnosis: Abscess of arm, right [L02.413] Post-Op Diagnosis Codes: * Abscess of arm, right [L02.413] Details of Procedure Procedure(s): DEBRIDEMENT WOUND RIGHT UPPER EXTREMITY, LEFT UPPER EXTREMITY, RIGHT CHEST WALL Additional Procedures Surgeon: Shaila Solorio MD Director Software Quality Assurance: none Anesthesia: general Indications: 34-year-old female with [...] found to be communicating. A 1/2 inch Chocorua drain was placed, which was tied to [...] from the original note were not included. [facility] [address] [facility] [id number] OPERATIVE REPORT Patient Name: Molly Beasley Date [...] CHEST Additional Procedures Surgeon: Db Lynn MD Director Software Quality Assurance: DO Hussain Cazares DO Anesthesia: general Indications: [...] provideraware, electrolytes replaced- see MAR. Notified by ROULA RN that miscellaneous pills found in pts [...] VC-SIMV. Pt taken to CT scan in ED.[id number] to 40%. No other changes made. POC is ongoing. Nemesio Posadas 04/09/2025 2:58 AM * Op Note - Vicky Sanders MD - 04/08/2025 7:22 PM EDT Images from the original note were not included. [address] [address] OPERATIVE REPORT Patient Name: Molly Beasley Date [...] Trauma, General and Critical Care Surgery Pager:# [phone] Office Phone:# [phone] * Plan of Care - Pooja Kaufman [...] change until then. * Hospital Course - Daisy Galdamez PA-C - 04/08/2025 1:26 PM EDT HPI As per original HPI from surgery consult 34 y.o. female with history noted below who presents to [facility] as a transfer from outside facility for [...] worsening infection. Patient was transferred to [facility] to rule out nec fasc. Patient is [...] pain recc. Patient planned to transfer to [facility] for ongoing dressing changes, iv pain medication [...] gauze. Cover with kerlix wrap followed by oimd wrap. LUZ has retained needles from patient injecting prior to admission (DO NOT PACK THIS WOUND WITH FINGERS, MUST USE INSTRUMENTS, either luda/forcepts etc) Upon discharge from [facility] patient will follow up with wound clinic affiliated with [facility] for patient convenience. At this time it is felt that she is stable for transfer to [facility]. Upon discussion with the attending physician, Dr. [...] Note Assessment completed with patient and/or patient's insurance sales representative, medical record review and discussion with clinical team. CC met with the patient using social distancing. Provided a Case Coordination packet with contact information, CC pamphlet and Your Next Step: Care Outside the Hospital brochure to the patient and/or patient insurance sales representative. Summary: PMH: IV drug use complicated by history of overdose on methadone,xylozene infection left forearm, depression, anxiety on Xanax and clonidine as prescribed, presents to [facility] as adirect transfer from [facility] due to concern for right upper extremity abscess/surgical eval uation for the necrotizing fasciitis. Patient underwent I&D by general surgery on 04/03 without complication. Wound cultures from 04/03 right arm positive for MRSA and Blood culture 04/02-positive for MRSA 08/04. Now postop day 1 status post bilateral upper extremity I&D's by general surgery team. Spoke with patient and s/o- Carlos with patient permission. Patient lives with s/o in 2nd floor aptwith 2 sets of stairs no elevator access. CM updated address in [facility] as patient no longer lives in [place], [place]. Patient had been working FT. Per s/o, patient had 1 year anniversary of patient's sister's who passed of endocarditis. S/o also reports that patient may have fears of also passing away and developing endocarditis. Patient reports that she used heroin and cocaine 2 days prior to hospital admission. She gets methadone from [facility]. Patient had been independent with ADLs/IADLs And driving. CM updated pharmacy- [facility]. Provided list of HC/STR in [place]. Patient is agreeable to place HC and STR referrals. If patient needs [place] [facility] IV abx will need SNF. Patient wishes go to home. She has no DME in home. S/o willing to take time off work to take care of her. Patient is agreeable to SW referral. Per patient, Carlos is HCR/POA. Anticipated transition plan: STR in [place] likely if [place] [facility] IV abx, possible home with HC Caregiver/responsible person supports: self, s/o PCP: Confirmed- Dr. Arsalan Nelson from [facility] in [place], last seen 1 mos ago Anticipated transportation: [...] * Assessment & Plan Note - Bhavin aPrks MD - 04/07/2025 4:06 PM EDT Associated [...] from the original note were not included. [address] [address] OPERATIVE REPORT Patient Name: Molly Beasley Date [...] EXTREMITY Additional Procedures Surgeon: Db Lynn MD Director Software Quality Assurance: MD Clarice Ward DO Anesthesia: general Indications: [...] ACID FAST SMEAR) Db Lynn MD 04/07/2025 1065 2 : right upper extremity tissue culture Tissue Arm, Upper right ANAEROBIC CULTURE, AEROBIC CULTURE(GRAM STAIN INCLUDED), TISSUE CULTURE (AEROBIC, ANAEROBIC + GRAM STAIN), FUNGAL CULTURE (NON-BLOOD), MYCOBACTERIA CULTURE (INCLUDES ACID FAST SMEAR) Db Lynn MD 04/07/2025 7223 Disposition: PACU Condition: stable Db Lynn MD [...] - 04/07/2025 8:52 AM EDT I contacted health care resource [facility] [[phone]] and confirmed patient's methadone dose to be 130 mg daily [patient took her last dose as an outpatient on 04/02/2025] [facility] Plan of Care - Veronica Gipson [...] 130 mg of methadone, follows up with [facility] clinic., Was confirmed by provider at outside hospital. [...] * Assessment & Plan Note - Dandre Valdze MD - 04/07/2025 1:38 AM EDTAssociated Problem(s): ADHD Patient is on Adderall at home, can continue outpatient * Plan of Care - Ifrah Grady PA-C - 04/06/2025 6:21 PM EDT PATIENT ACCEPTANCE NOTE SITUATION I was called by provider Dr. Ronny Mcneil from [facility] in regards to Molly Beasley to be transferred to the [facility]. Their phone number is [phone] in case more information is required. They are requesting the transfer to [facility] for procedural intervention and sap business objects consultant service which is not available in [...] with history of IVDU who presented to [facility] due to arm swelling and pain at [...] avoid limb loss. A TTE performed at [facility] was not concerning. A YANA has been [...] FINGERSTICK (CHARGE) Routine 04/11/2025 12:31 AM EDT POCT GLUCOSE, FINGERSTICK (CHARGE) Routine 04/10/2025 8:04 [...] 04/09/2025 6:11 PM EDT THROMBOELASTOGRAPH (TEG) Routine 025 5:20 PM EDT COMPLETE BLOOD COUNT, WITHOUT [...] EDT BLOOD CULTURE (HOSP LAB) Routine 025 1:31 AM EDT POCT GLUCOSE, FINGERSTICK (CHARGE) [...] METABOLIC PANEL Routine 04/08/2025 9:15 PM EDT ERYTHROCYTE SEDIMENTATION RATE (ESR) Routine 04/08/2025 2:05 [...] URINE (CHARGE) Routine 04/07/2025 2:[address] UPPER EXTREMITY WITH CONTRAST-LEFT STAT 04/07/2025 [...] EDT 04/14/2025 4:09 PM EDT us Kenton Mednia MD POINT OF CARE TEST ORDERABLES Fi nal Result Performing Organization Address [facility] Phone Number [facility] See Below * (ABNORMAL) POCT Glucose, Fingerstick (04/14/2025 11:40 AM EDT) POC Glucose 147(H) 65 - 99 mg/dL 04/14/2025 11:44 AM EDT Blood specimen / Unknown 04/14/2025 11:40 AM EDT 04/14/2025 11:44 AM EDT us Kenton Medina MD POINT OF CARE TEST ORDERABLES Fi nal Result Performing Organization Address [facility] Co pr Phone Number [facility] See Below * ECG 12 lead (04/14/2025 10:13 AM EDT) Ventricular rate 64 BPM EKG [facility] Atrial rate 64 BPM EKG [facility] P-R interval 136 ms EKG [facility] QRS duration 84 ms EKG [facility] Q-T interval 428 ms EKG [facility] QTC calculation (Bazett) 442 ms EKG [facility] P axis 52 degrees EKG [facility] R axis 72 degrees EKG [facility] T axis 68 degrees EKG [facility] 04/14/2025 10:1 3 AM EDT Narrative EKG [facility] - 04/14/2025 1:09 PM EDT Normal [...] Rivero Komsu (42) on 04/14/2025 1:09:39 PM us Arabella Avalos PA-C ECG ORDERABLES Final Result [facility] * (ABNORMAL) POCT Glucose, Fingerstick (04/14/2025 8:28 AM EDT) POC Glucose 139(H) 65 - 99 mg/dL 04/14/2025 8:32 AM EDT Blood specimen / Unknown 04/14/2025 8:28 AM EDT 04/14/2025 8:32 AM EDT us Kenton Medina MD POINT OF CARE TEST ORDERABLES Fi nal Result HOSPITAL LAB See Below * (ABNORMAL) POCT Glucose, Fingerstick (04/14/2025 4:07 AM EDT) POC Glucose 123(H) 65 - 99 mg/dL 04/14/2025 4:08 AM EDT Blood specimen / Unknown 04/14/2025 4:07 AM EDT 04/14/2025 4:08 AM EDT us Kenton Medina MD POINT OF CARE TEST ORDERABLES Fi nal Result Performing Organization Address City/[facility]/ZIP Co de Phone Number HOSPITAL LAB See Below * (ABNORMAL) Phosphorus (04/14/2025 4:05 AM EDT) Phosphorus 2.5(L) 2.7 - 4.5 mg/dL 04/14/2025 5:06 AM EDT [facility] Blood Blood specimen / Unknown 04/14/2025 4:05 AM EDT 04/14/2025 4:35 AM EDT us Lucho Donaldson MD LAB BLOOD ORDERABLES Final Re sult Performing Organization Address [facility] Co [place] [address], [place] [address] * Magnesium (04/14/2025 4:05 AM EDT) Magnesium 1.9 1.6 - 2.7 mg/dL 04/14/2025 5:06 AM EDT [facility] Blood Blood specimen / Unknown 04/14/2025 4:05 AM EDT 04/14/2025 4:35 AM EDT us Lucho Donaldson MD LAB BLOOD ORDERABLES Final Re sult Performing Organization Address [facility] de [place] [address], [place] [address] * (ABNORMAL) Complete Blood Count, WITHOUT Differential (routine) (04/14/2025 4:05 AM EDT) White Blood Cell Count 13.7(H) 4.0 - 11.0 Thou/uL 04/14/2025 4:53 AM EDT [facility] Platelet Count 616(H) 150 - 450 Thou/uL 04/14/2025 4:53 AM [facility] Hemoglobin 7.3(L) 11.7 - 15.7 g/dL 04/14/2025 4:53 AM [facility] Hematocrit 23.3(L) 35.0 - 47.0 % 04/14/2025 4:53 AM [facility] Red Blood Cell Count 2.68(L) 4.00 - 5.40 Mil/uL 04/14/2025 4:53 AM [facility] MCV 87 80 - 100 fL 04/14/2025 4:53 AM [facility] MCH 27.2 26.0 - 34.0 pg 04/14/2025 4:53 AM [facility] MCHC 31.3 30.0 - 36.0 g/dL 04/14/2025 4:53 AM [facility] RDW 17.9(H) 11.5 - 14.5 % 04/14/2025 4:53 AM [facility] MPV 9.8 7.5 - 12.5 fL 04/14/2025 4:53 AM [facility] nRBC 0.4(H) 0.0 - 0.1 /100 WBC 04/14/2025 4:53 AM [facility] nRBC, Absolute 0.05(H) 0.00 - 0.02 Thou/uL 04/14/2025 4:53 AM [facility] Blood Blood specimen / Unknown 04/14/2025 4:05 AM EDT 04/14/2025 4:35 AM EDT us Lucho Donaldson MD LAB BLOOD ORDERABLES Final Re sult [address] [address], [address] [address] * (ABNORMAL) Basic Metabolic Panel (04/14/2025 4:05 AM EDT) [facility] Glucose 111(H) 65 - 99 mg/dL 04/14/2025 5:06 AM [facility] Comment:Fasting: <100 mg/dL, Non-Fasting: <200 mg/dL (ADA 2005) Blood Urea Nitrogen (BUN) 11 8 - 21 mg/dL 04/14/2025 5:06 AM [facility] Creatinine 0.74 0.40 - 1.10 mg/dL 04/14/2025 5:06 AM [facility] eGFR >90 >59 04/14/2025 5:06 AM [facility] Comment:CKD-EPI (2020) in mL /min/1.73 sq meters. Sodium 137 136 - 145 mmol/L 04/14/2025 5:06 AM [facility] Potassium 3.4 3.4 - 5.3 mmol/L 04/14/2025 5:06 AM [facility] Chloride 104 98 - 107 mmol/L 04/14/2025 5:06 AM [facility] CO2 26 22 - 33 mmol/L 04/14/2025 5:06 AM [facility] Anion Gap 7 7 - 17 04/14/2025 5:06 AM [facility] Calcium 7.3(L) 8.7 - 10.5 mg/dL 04/14/2025 5:06 AM [facility] BUN/Creatinine Ratio 15 10.0 - 25.0 Ratio 04/14/2025 5:06 AM [facility] Blood Blood specimen / Unknown 04/14/2025 4:05 AM EDT 04/14/2025 4:35 AM EDT Lucho Donaldson MD LAB BLOOD ORDERABLES Final Re sult [address] [address], [address] [address] * (ABNORMAL) POCT Glucose, Fingerstick (04/13/2025 11:58 PM EDT) POC Glucose 101(H) 65 - 99 mg/dL 04/13/2025 11:59 PM EDT Blood specimen / Unknown 04/13/2025 11:58 PM EDT 04/13/2025 11:59 PM EDT us Kenton Medina MD POINT OF CARE TEST ORDERABLES Fi nal Result Performing Organization Address [facility] Phone [facility] LAB See Below * (ABNORMAL) POCT Glucose, Fingerstick (04/13/2025 8:08 PM EDT) POC Glucose 111(H) 65 - 99 mg/dL 04/13/2025 8:09 PM EDT Blood specimen / Unknown 04/13/2025 8:08 PM EDT 04/13/2025 8:09 PM EDT us Kenton Medina MD POINT OF CARE TEST ORDERABLES Fi nal Result Performing Organization Address [facility] LAB See Below * (ABNORMAL) POCT Glucose, Fingerstick (04/13/2025 5:18 PM EDT) POC Glucose 109(H) 65 - 99 mg/dL 04/13/2025 5:18 PM EDT Blood specimen / Unknown 04/13/2025 5:18 PM EDT 04/13/2025 5:19 PM EDT us Kenton Medina MD POINT OF CARE TEST ORDERABLES Fi nal Result Performing Organization Address [facility] LAB See Below * ECG 12 lead (04/13/2025 2:41 PM EDT) Pathologist [facility] Systolic BP 142 mmHg EKG [facility] Diastolic BP 79 mmHg EKG [facility] Ventricular rate 82 BPM EKG [facility] Atrial rate 82 BPM EKG [facility] P-R interval 138 ms EKG [facility] QRS duration 82 ms EKG [facility] Q-T interval 402 ms EKG [facility] QTC calculation (Bazett) 469 ms EKG [facility] P axis 50 degrees EKG [facility] R axis 75 degrees EKG [facility] T axis 63 degrees EKG [facility] 04/13/2025 2:41 PM EDT Narrative EKG [facility] - 04/13/2025 3:38 PM EDT Normal sinus rhythm Normal ECG When compared with ECG of 11-Apr-2025 15:24, No significant change was found Confirmed by Med Concepcion MD ([id number]) on 04/13/2025 3:37:59 PM Procedure Note Med Concepcion MD - 04/13/2025 Normal sinus rhythm Normal ECG When compared with ECG of 11-Apr-2025 15:24, No significant change was found Confirmed by Med Concepcion MD ([id number]) on 04/13/2025 3:37:59 PM us Kenton Medina MD ECG ORDERABLES Final Result Performing Organization Address City/[facility]/ZIP Co de Phone Number EKG [facility] * (ABNORMAL) POCT Glucose, Fingerstick (04/13/2025 11:46 AM EDT) POC Glucose 125(H) 65 - 99 mg/dL 04/13/2025 11:46 AM EDT Blood specimen / Unknown 04/13/2025 11:46 AM EDT 04/13/2025 11:47 AM EDT us Kenton Medina MD POINT OF CARE TEST ORDERABLES Fi nal Result Performing Organization Address City/[facility]/ZIP Co de Phone Number HOSPITAL LAB See Below * Phosphorus (STAT) (04/13/2025 9:16 AM EDT) Phosphorus 4.1 2.7 - 4.5 mg/dL 04/13/2025 11:09 AM EDT [facility] Blood Blood specimen / Unknown 04/13/2025 9:16 AM EDT 04/13/2025 10:[address] HOGGER OPERATOR LAB BLOOD ORDERABLES Fin al Result Performing Organization Address [facility]/ZIP Co de Phone Number [address] [address], [address] [address] * Magnesium (STAT) (04/13/2025 9:16 AM EDT) Magnesium 2.1 1.6 - 2.7 mg/dL 04/13/2025 11:09 AM [facility] Blood Blood specimen / Unknown 04/13/2025 9:16 AM EDT 04/13/2025 10:34 AM EDT us Ani Brown [address] HOGGER OPERATOR LAB BLOOD ORDERABLES Fin al Result [address] [address], [address] [address] * (ABNORMAL) Basic Metabolic Panel (STAT) (04/13/2025 9:16 AM EDT) Glucose 116(H) 65 - 99 mg/dL 04/13/2025 11:09 AM [facility] Comment:Fasting: <100 mg/dL, Non-Fasting: <200 mg/dL (ADA 2005) Blood Urea Nitrogen (BUN) 8 8 - 21 mg/dL 04/13/2025 11:09 AM [facility] Creatinine 0.55 0.40 - 1.10 mg/dL 04/13/2025 11:09 AM [facility] eGFR >90 >59 04/13/2025 11:09 AM [facility] Comment:CKD-EPI (2020) in mL /min/1.73 sq meters. Sodium 137 136 - 145 mmol/L 04/13/2025 11:10 AM [facility] Potassium 3.7 3.4 - 5.3 mmol/L 04/13/2025 11:10 AM [facility] Chloride 104 98 - 107 mmol/L 04/13/2025 11:10 AM [facility] CO2 26 22 - 33 mmol/L 04/13/2025 11:09 AM [facility] Anion Gap 7 7 - 17 04/13/2025 11:10 AM [facility] Calcium 7.5(L) 8.7 - 10.5 mg/dL 04/13/2025 11:09 AM [facility] BUN/Creatinine Ratio 15 10.0 - 25.0 Ratio 04/13/2025 11:09 AM EDT [facility] Blood Blood specimen / Unknown 04/13/2025 9:16 AM EDT 04/13/2025 10:34 AM EDT Ani Bolaños [address] HOGGER OPERATOR LAB BLOOD ORDERABLES Fin al Result Performing Organization Address [facility] Co [place] [address], [place] [address] * (ABNORMAL) POCT Glucose, Fingerstick (04/13/2025 8:48 AM EDT) Pathologist [facility] POC Glucose 102(H) 65 - 99 mg/dL 04/13/2025 8:52 AM EDT Blood specimen / Unknown 04/13/2025 8:48 AM EDT 04/13/2025 8:52 AM EDT Kenton Medina MD POINT OF CARE TEST ORDERABLES Fi nal Result Performing Organization Address [facility] Co de Phone Number HOSPITAL LAB See Below * Vancomycin Level, Random (04/13/2025 7:00 AM EDT) Pathologist [facility] Vancomycin, Random 20 mg/L 04/13/2025 8:15 AM EDT [facility] Comment:No reference range e stablished for random levels. Time of Last Dose Information not given 04/13/2025 6:22 AM EDT [facility] Blood Blood specimen / Unknown 04/13/2025 7:00 AM EDT 04/13/2025 7:41 AM EDT Lucho Donaldson MD LAB BLOOD ORDERABLES Final Re sult Performing Organization Address [facility] Co de Phone Number [address] [address], [address] [address] * POCT Glucose, Fingerstick (04/13/2025 4:15 AM EDT) [facility] POC Glucose 91 65 - 99 mg/dL 04/13/2025 4:16 AM EDT Blood specimen / Unknown 04/13/2025 4:15 AM EDT 04/13/2025 4:16 AM EDT us Kenton Medina MD POINT OF CARE TEST ORDERABLES Fi nal Result HOSPITAL LAB See Below * Phosphorus (04/13/2025 12:32 AM EDT) [facility] Phosphorus 2.8 2.7 - 4.5 mg/dL 04/13/2025 1:21 AM EDT [facility] Blood Blood specimen / Unknown 04/13/2025 12:32 AM EDT 04/13/2025 12:48 AM EDT Sara GARRETT LAB BLOOD ORDERABLES Final Res ult Performing Organization Address [facility] de [place] [address], [place] [address] * Magnesium (04/13/2025 12:32 AM EDT) [facility] Magnesium 2.0 1.6 - 2.7 mg/dL 04/13/2025 1:21 AM EDT [facility] Blood Blood specimen / Unknown 04/13/2025 12:32 AM EDT 04/13/2025 12:48 AM EDT Sara GARRETT LAB BLOOD ORDERABLES Final Res ult Performing Organization Address [facility] de [place] [address], [place] [address] * (ABNORMAL) COMPLETE BLOOD COUNT, WITHOUT DIFFERENTIAL (04/13/2025 12:32 AM EDT) [facility] White Blood Cell Count 17.4(H) 4.0 - 11.0 Thou/uL 04/13/2025 1:03 AM [facility] Platelet Count 696(H) 150 - 450 Thou/uL 04/13/2025 1:03 AM [facility] Hemoglobin 7.8(L) 11.7 - 15.7 g/dL 04/13/2025 1:03 AM [facility] Hematocrit 23.9(L) 35.0 - 47.0 % 04/13/2025 1:03 AM [facility] Red Blood Cell Count 2.76(L) 4.00 - 5.40 Mil/uL 04/13/2025 1:03 AM [facility] MCV 87 80 - 100 fL 04/13/2025 1:03 AM [facility] MCH 28.3 26.0 - 34.0 pg 04/13/2025 1:03 AM [facility] MCHC 32.6 30.0 - 36.0 g/dL 04/13/2025 1:03 AM [facility] RDW 17.6(H) 11.5 - 14.5 % 04/13/2025 1:03 AM [facility] MPV 9.4 7.5 - 12.5 fL 04/13/2025 1:03 AM [facility] nRBC 0.2(H) 0.0 - 0.1 /100 WBC 04/13/2025 1:03 AM [facility] nRBC, Absolute 0.03(H) 0.00 - 0.02 Thou/uL 04/13/2025 1:03 AM [facility] Blood Blood specimen / Unknown 04/13/2025 12:32 AM EDT 04/13/2025 12:48 AM EDT us Sara GARRETT LAB BLOOD ORDERABLES Final Res ult [address] [address], [address] [address] * (ABNORMAL) Basic Metabolic Panel (04/13/2025 12:32 AM EDT) Glucose 102(H) 65 - 99 mg/dL 04/13/2025 1:21 AM [facility] Comment:Fasting: <100 mg/dL, Non-Fasting: <200 mg/dL (ADA 2004) Blood Urea Nitrogen (BUN) 10 8 - 21 mg/dL 04/13/2025 1:21 AM [facility] Creatinine 0.58 0.40 - 1.10 mg/dL 04/13/2025 1:21 AM [facility] eGFR >90 >59 04/13/2025 1:21 AM [facility] Comment:CKD-EPI (2020) in mL /min/1.73 sq meters. Sodium 133(L) 136 - 145 mmol/L 04/13/2025 1:21 AM [facility] Potassium 2.8(L) 3.4 - 5.3 mmol/L 04/13/2025 1:21 AM [facility] Chloride 98 98 - 107 mmol/L 04/13/2025 1:21 AM [facility] CO2 27 22 - 33 mmol/L 04/13/2025 1:21 AM [facility] Anion Gap 8 7 - 17 04/13/2025 1:21 AM [facility] Calcium 7.5(L) 8.7 - 10.5 mg/dL 04/13/2025 1:21 AM [facility] BUN/Creatinine Ratio 17 10.0 - 25.0 Ratio 04/13/2025 1:21 AM [facility] Blood Blood specimen / Unknown 04/13/2025 12:32 AM EDT 04/13/2025 12:48 AM EDT us Sara GARRETT LAB BLOOD ORDERABLES Final Res ult [address] [address], [address] [address] * POCT Glucose, Fingerstick (04/13/2025 12:18 AM EDT) POC Glucose 90 65 - 99 mg/dL 04/13/2025 12:19 AM EDT Blood specimen / Unknown 04/13/2025 12:18 AM EDT 04/13/2025 12:19 AM EDT Result Long Medina MD POINT OF CARE TEST ORDERABLES Fi nal Result Performing Organization Address [facility] LAB See Below * (ABNORMAL) POCT Glucose, Fingerstick (04/12/2025 8:10 PM EDT) POC Glucose 131(H) 65 - 99 mg/dL 04/12/2025 8:14 PM EDT Blood specimen / Unknown 04/12/2025 8:10 PM EDT 04/12/2025 8:14 PM EDT us Kenton Medina MD POINT OF CARE TEST ORDERABLES Fi nal Result Performing Organization [facility] LAB See Below * POCT Glucose, Fingerstick (04/12/2025 3:55 PM EDT) POC Glucose 99 65 - 99 mg/dL 04/12/2025 3:55 PM EDT Blood specimen / Unknown 04/12/2025 3:55 PM EDT 04/12/2025 3:56 PM EDT Result Long Medina MD POINT OF CARE TEST ORDERABLES Fi nal Result Performing Organization Address [facility] LAB See Below * (ABNORMAL) POCT Glucose, Fingerstick (04/12/2025 11:44 AM EDT) POC Glucose 104(H) 65 - 99 mg/dL 04/12/2025 11:44 AM EDT Blood specimen / Unknown 04/12/2025 11:44 AM EDT 04/12/2025 11:45 AM EDT us Kenton Medina MD POINT OF CARE TEST ORDERABLES Fi nal Result Performing Organization Address [facility] LAB See Below * (ABNORMAL) POCT Glucose, Fingerstick (04/12/2025 8:50 AM EDT) POC Glucose 106(H) 65 - 99 mg/dL 04/12/2025 8:54 AM EDT Blood specimen / Unknown 04/12/2025 8:50 AM EDT 04/12/2025 8:54 AM EDT us Kenton Medina MD POINT OF CARE TEST ORDERABLES Fi nal Result [facility] LAB See Below * POCT Glucose, Fingerstick (04/12/2025 3:51 AM EDT) POC Glucose 95 65 - 99 mg/dL 04/12/2025 3:52 AM EDT Blood specimen / Unknown 04/12/2025 3:51 AM EDT 04/12/2025 3:52 AM EDT us Kenton Medina MD POINT OF CARE TEST ORDERABLES Fi nal Result Performing Organization Address [facility] Co de Phone Number [facility] LAB See Below * Magnesium (04/12/2025 12:08 AM EDT) Magnesium 2.0 1.6 - 2.7 mg/dL 04/12/2025 1:36 AM EDT [facility] Blood Blood specimen / Unknown 04/12/2025 12:08 AM EDT 04/12/2025 12:49 AM EDT Daniel Palacios PA-C LAB BLOOD ORDERABLES Fin al Result Performing Organization Address [facility] Co de Phone Number [address] [address], [address] [address] * Phosphorus (04/12/2025 12:08 AM EDT) Phosphorus 3.3 2.7 - 4.5 mg/dL 04/12/2025 1:36 AM [facility] Blood Blood specimen / Unknown 04/12/2025 12:08 AM EDT 04/12/2025 12:49 AM EDT Daniel Palacios PA-C LAB BLOOD ORDERABLES Fin al Result [address] [address], [address] [address] * (ABNORMAL) Complete Blood Count, WITHOUT Differential (routine) (04/12/2025 12:08 AM EDT) White Blood Cell Count 17.5(H) 4.0 - 11.0 Thou/uL 04/12/2025 1:13 AM [facility] Platelet Count 474(H) 150 - 450 Thou/uL 04/12/2025 1:13 AM [facility] Hemoglobin 7.4(L) 11.7 - 15.7 g/dL 04/12/2025 1:13 AM [facility] Hematocrit 22.6(L) 35.0 - 47.0 % 04/12/2025 1:13 AM [facility] Red Blood Cell Count 2.60(L) 4.00 - 5.40 Mil/uL 04/12/2025 1:13 AM [facility] MCV 87 80 - 100 fL 04/12/2025 1:13 AM [facility] MCH 28.5 26.0 - 34.0 pg 04/12/2025 1:13 AM [facility] MCHC 32.7 30.0 - 36.0 g/dL 04/12/2025 1:13 AM [facility] RDW 17.1(H) 11.5 - 14.5 % 04/12/2025 1:13 AM [facility] MPV 9.6 7.5 - 12.5 fL 04/12/2025 1:13 AM [facility] nRBC 0.2(H) 0.0 - 0.1 /100 WBC 04/12/2025 1:13 AM [facility] nRBC, Absolute 0.03(H) 0.00 - 0.02 Thou/uL 04/12/2025 1:13 AM [facility] Blood Blood specimen / Unknown 04/12/2025 12:08 AM EDT 04/12/2025 12:49 AM EDT Daniel Palacios PA-C LAB BLOOD ORDERABLES Fin al Result [address] [address], [address] [address] * (ABNORMAL) Basic Metabolic Panel (04/12/2025 12:08 AM EDT) Glucose 87 65 - 99 mg/dL 04/12/2025 1:36 AM [facility] Comment:Fasting: <100 mg/dL, Non-Fasting: <200 mg/dL (ADA 2004) Blood Urea Nitrogen (BUN) 9 8 - 21 mg/dL 04/12/2025 1:36 AM [facility] Creatinine 0.54 0.40 - 1.10 mg/dL 04/12/2025 1:36 AM [facility] eGFR >90 >59 04/12/2025 1:36 AM [facility] Comment:CKD-EPI (2020) in mL /min/1.73 sq meters. Sodium 141 136 - 145 mmol/L 04/12/2025 1:36 AM [facility] Potassium 3.5 3.4 - 5.3 mmol/L 04/12/2025 1:36 AM [facility] Chloride 105 98 - 107 mmol/L 04/12/2025 1:36 AM [facility] CO2 28 22 - 33 mmol/L 04/12/2025 1:36 AM [facility] Anion Gap 8 7 - 17 04/12/2025 1:36 AM [facility] Calcium 7.1(L) 8.7 - 10.5 mg/dL 04/12/2025 1:36 AM [facility] BUN/Creatinine Ratio 17 10.0 - 25.0 Ratio 04/12/2025 1:36 AM [facility] Blood Blood specimen / Unknown 04/12/2025 12:08 AM EDT 04/12/2025 12:49 AM EDT us Daniel Palacios PA-C LAB BLOOD ORDERABLES Fin al Result Performing Organization Address [facility] Co de Phone Number [address] [address], [address] [address] * POCT Glucose, Fingerstick (04/11/2025 11:54 PM EDT) POC Glucose 90 65 - 99 mg/dL 04/11/2025 11:58 PM EDT Blood specimen / Unknown 04/11/2025 11:54 PM EDT 04/11/2025 11:58 PM EDT us Kenton Medina MD POINT OF CARE TEST ORDERABLES Fi nal Result Performing Organization Address [facility] Co de Phone Number [facility] LAB See Below * POCT Glucose, Fingerstick (04/11/2025 8:45 PM EDT) POC Glucose 89 65 - 99 mg/dL 04/11/2025 8:50 PM EDT Blood specimen / Unknown 04/11/2025 8:45 PM EDT 04/11/2025 8:50 PM EDT us Kenton Medina MD POINT OF CARE TEST ORDERABLES Fi nal Result Performing Organization Address City/[facility] Co de Phone Number [facility] LAB See Below * (ABNORMAL) POCT Glucose, Fingerstick (04/11/2025 4:01 PM EDT) POC Glucose 107(H) 65 - 99 mg/dL 04/11/2025 4:18 PM EDT Blood specimen / Unknown 04/11/2025 4:01 PM EDT 04/11/2025 4:18 PM EDT us Kenton Medina MD POINT OF CARE TEST ORDERABLES Fi nal Result Performing Organization Address City/[facility] de Phone Number HOSPITAL LAB See Below * ECG 12 lead (04/11/2025 3:24 PM EDT) Systolic BP 160 mmHg EKG [facility] Diastolic BP 74 mmHg EKG [facility] Ventricular rate 69 BPM EKG [facility] Atrial rate 69 BPM EKG [facility] P-R interval 146 ms EKG [facility] QRS duration 86 ms EKG [facility] Q-T interval 450 ms EKG [facility] QTC calculation (Bazett) 482 ms EKG [facility] P axis 47 degrees EKG [facility] R axis 64 degrees EKG [facility] T axis 53 degrees EKG [facility] 04/11/2025 3:24 PM EDT Narrative EKG [facility] - 04/11/2025 5:24 PM EDT Normal sinus rhythm Prolonged QT Abnormal ECG When compared with ECG of 07-Apr-2025 10:00, QT has lengthened Confirmed by Mariposa Baumann MD ([id number]) on 04/11/2025 5:24:27 PM Procedure Note Mariposa Baumann MD - 04/11/2025 Normal sinus rhythm Prolonged QT Abnormal ECG When compared with ECG of 07-Apr-2025 10:00, QT has lengthened Confirmed by Mariposa Baumann MD ([id number]) on 04/11/2025 5:24:27 PM Kenton Medina MD ECG ORDERABLES Final Result Performing Organization Address [facility] de Phone Number [facility] * XR Abdomen 1 view (04/11/2025 [...] pattern is nonobstructive. Procedure Note Ryland Del Cid, DO - 04/11/2025 EXAMINATION: XR ABDOMEN KUB [...] stomach, unchanged in position. Sophia Yarbrough MD [facility] DIAGNOSTIC IMAGING ORDERABLES Final Result * (ABNORMAL) POCT Glucose, Fingerstick (04/11/2025 12:08 PM EDT) POC Glucose 106(H) 65 - 99 mg/dL 04/11/2025 12:14 PM EDT Blood specimen / Unknown 04/11/2025 12:08 PM EDT 04/11/2025 12:14 PM EDT Kenton Medina MD POINT OF CARE TEST ORDERABLES Fi nal Result HOSPITAL LAB See Below * (ABNORMAL) POCT Glucose, Fingerstick (04/11/2025 8:01 AM EDT) POC Glucose 116(H) 65 - 99 mg/dL 04/11/2025 8:03 AM EDT Blood specimen / Unknown 04/11/2025 8:01 AM EDT 04/11/2025 8:02 AM EDT Kenton Medina MD POINT OF CARE TEST ORDERABLES Fi nal Result [facility]OS[facility]ITAL LAB See Below * (ABNORMAL) Complete Blood Count WITHOUT Differential - in AM (04/11/2025 6:30 AM EDT) White Blood Cell Count 22.1(H) 4.0 - 11.0 Thou/uL 04/11/2025 8:05 AM [facility] Platelet Count 433 150 - 450 Thou/uL 04/11/2025 8:05 AM [facility] Hemoglobin 8.3(L) 11.7 - 15.7 g/dL 04/11/2025 8:05 AM [facility] Hematocrit 25.3(L) 35.0 - 47.0 % 04/11/2025 8:05 AM [facility] Red Blood Cell Count 2.90(L) 4.00 - 5.40 Mil/uL 04/11/2025 8:05 AM [facility] MCV 87 80 - 100 fL 04/11/2025 8:05 AM [facility] Comment:Significant change i n values noted, consider specimen integrity. If results are not expected, correlate clinically and re-collect sample if indicated. MCH 28.6 26.0 - 34.0 pg 04/11/2025 8:05 AM [facility] MCHC 32.8 30.0 - 36.0 g/dL 04/11/2025 8:05 AM [facility] RDW 16.9(H) 11.5 - 14.5 % 04/11/2025 8:05 AM [facility] MPV 9.4 7.5 - 12.5 fL 04/11/2025 8:05 AM [facility] nRBC 0.2(H) 0.0 - 0.1 /100 WBC 04/11/2025 8:05 AM [facility] nRBC, Absolute 0.04(H) 0.00 - 0.02 Thou/uL 04/11/2025 8:05 AM [facility] Blood Blood specimen / Unknown 04/11/2025 6:30 AM EDT 04/11/2025 7:40 AM EDT us Daniel Palacios PA-C LAB BLOOD ORDERABLES Fin al Result Performing Organization Address [facility] Co de Phone Number [address] [address], [address] [address] * Transfuse RBC's:Transfusion Indications: Hemoglobin less than 7 gm/dl or HCT less than 21%; Transfusion duration per unit (hrs): 1 (04/11/2025 5:17 AM EDT) Daniel Palacios PA-C BLOOD TRANSFUSION ORDERA BLES Final Result * Transfuse RBC's:Transfusion Indications: Hemoglobin less than 7 gm/dl or HCT less than 21%; Transfusion duration per unit (hrs): 1 (04/11/2025 5:17 AM EDT) Daniel Palacios PA-C BLOOD TRANSFUSION ORDERA BLES Final Result * (ABNORMAL) POCT Glucose, Fingerstick (04/11/2025 4:00 AM EDT) POC Glucose 117(H) 65 - 99 mg/dL 04/11/2025 4:09 AM EDT Blood specimen / Unknown 04/11/2025 4:00 AM EDT 04/11/2025 4:09 AM EDT Kenton Medina MD POINT OF CARE TEST ORDERABLES Fi nal Result HOSPITAL LAB See Below * (ABNORMAL) Thromboelastograph (TEG) (04/11/2025 2:18 AM EDT) Reaction Time 5.1 5 - 10 minutes 04/11/2025 4:07 AM EDT [facility] Reaction Time,Heparinized 4.9(L) 5 - 10 minutes 04/11/2025 4:07 AM EDT [facility] Fibrin Function 1.1 1 - 3 minutes 04/11/2025 4:07 AM EDT [facility] Fibrin Function,Heparini zed 0.8(L) 1 - 3 minutes 04/11/2025 4:07 AM EDT [facility] Angle 74.8(H) 53 - 72 degrees 04/11/2025 4:07 AM EDT [facility] Angle, Heparinized 78.7(H) 53 - 72 degrees 04/11/2025 4:07 AM EDT [facility] Max Amplitude 72.6(H) 50 - 70 mm 04/11/2025 4:07 AM EDT [facility] Max Amplitude,Heparin ized 74.8(H) 50 - 70 mm 04/11/2025 4:07 AM EDT [facility] %Lysis 30 min 0.0 0 - 8 % 04/11/2025 4:07 AM T [facility] %Lysis 30 min,Heparinized 0.6 0 - 8 % 04/11/2025 4:07 AM EDT [facility] Anticoagulant NO ANTI COAGULANT MEDS 04/11/2025 2:18 AM EDT [facility] Blood Blood specimen / Unknown 04/11/2025 2:18 AM EDT 04/11/2025 2:28 AM EDT Daniel Palacios PA-C LAB BLOOD ORDERABLES [place] [address], [place] [address] * (ABNORMAL) Phosphorus (04/11/2025 12:57 AM EDT) Phosphorus 4.8(H) 2.7 - 4.5 mg/dL 04/11/2025 1:40 AM EDT [facility] Blood Blood specimen / Unknown 04/11/2025 12:57 AM EDT 04/11/2025 1:09 AM EDT Daniel Palacios PA-C LAB BLOOD ORDERABLES [place] [address], [place] [address] * Magnesium (04/11/2025 12:57 AM EDT) Magnesium 1.9 1.6 - 2.7 mg/dL 04/11/2025 1:40 AM [facility] Blood Blood specimen / Unknown 04/11/2025 12:57 AM EDT 04/11/2025 1:09 AM EDT Daniel Palacios PA-C LAB BLOOD ORDERABLES Fin al Result [address] [address], [address] [address] * (ABNORMAL) Basic Metabolic Panel (04/11/2025 12:57 AM EDT) Glucose 115(H) 65 - 99 mg/dL 04/11/2025 1:40 AM [facility] Comment:Fasting: <100 mg/dL, Non-Fasting: <200 mg/dL (ADA 2005) Blood Urea Nitrogen (BUN) 9 8 - 21 mg/dL 04/11/2025 1:40 AM [facility] Creatinine 0.61 0.40 - 1.10 mg/dL 04/11/2025 1:40 AM [facility] eGFR >90 >59 04/11/2025 1:40 AM [facility] Comment:CKD-EPI (2020) in mL /min/1.73 sq meters. Sodium 139 136 - 145 mmol/L 04/11/2025 1:40 AM [facility] Potassium 3.5 3.4 - 5.3 mmol/L 04/11/2025 1:40 AM [facility] Chloride 106 98 - 107 mmol/L 04/11/2025 1:40 AM [facility] CO2 26 22 - 33 mmol/L 04/11/2025 1:40 AM [facility] Anion Gap 7 7 - 17 04/11/2025 1:40 AM [facility] Calcium 7.1(L) 8.7 - 10.5 mg/dL 04/11/2025 1:40 AM [facility] BUN/Creatinine Ratio 15 10.0 - 25.0 Ratio 04/11/2025 1:40 AM [facility] Blood Blood specimen / Unknown 04/11/2025 12:57 AM EDT 04/11/2025 1:09 AM EDT Daniel Palacios PA-C LAB BLOOD ORDERABLES Fin al Result [address] [address], [address] [address] * (ABNORMAL) Complete Blood Count, WITHOUT Differential (routine) (04/11/2025 12:57 AM EDT) White Blood Cell Count 19.5(H) 4.0 - 11.0 Thou/uL 04/11/2025 1:36 AM [facility] Platelet Count 434 150 - 450 Thou/uL 04/11/2025 1:36 AM [facility] Hemoglobin 6.3(L) 11.7 - 15.7 g/dL 04/11/2025 1:36 AM [facility] Hematocrit 18.7(LL) 35.0 - 47.0 % 04/11/2025 1:36 AM [facility] Comment:Test results repeate d. Red Blood Cell Count 2.31(L) 4.00 - 5.40 Mil/uL 04/11/2025 1:36 AM [facility] MCV 82 80 - 100 fL 04/11/2025 1:36 AM [facility] MCH 27.3 26.0 - 34.0 pg 04/11/2025 1:36 AM [facility] MCHC 33.3 30.0 - 36.0 g/dL 04/11/2025 1:36 AM [facility] RDW 16.7(H) 11.5 - 14.5 % 04/11/2025 1:36 AM [facility] MPV 9.4 7.5 - 12.5 fL 04/11/2025 1:36 AM [facility] nRBC 0.2(H) 0.0 - 0.1 /100 WBC 04/11/2025 1:36 AM [facility] nRBC, Absolute 0.04(H) 0.00 - 0.02 Thou/uL 04/11/2025 1:36 AM EDT [facility] Blood Blood specimen / Unknown 04/11/2025 12:57 AM EDT 04/11/2025 1:09 AM EDT Daniel Palacios PA-C LAB BLOOD ORDERABLES Fin al Result Performing Organization Address [facility] Co de Phone Number [address] [address], [address] [address] * (ABNORMAL) POCT Glucose, Fingerstick (04/11/2025 12:31 AM EDT) POC Glucose 103(H) 65 - 99 mg/dL 04/11/2025 12:35 AM EDT Blood specimen / Unknown 04/11/2025 12:31 AM EDT 04/11/2025 12:35 AM EDT us Kenton Medina MD POINT OF CARE TEST ORDERABLES Fi nal Result Performing Organization Address [facility] Co de Phone Number [facility] LAB See Below * POCT Glucose, Fingerstick (04/10/2025 8:04 PM EDT) POC Glucose 94 65 - 99 mg/dL 04/10/2025 8:04 PM EDT Blood specimen / Unknown 04/10/2025 8:04 PM EDT 04/10/2025 8:05 PM EDT us Kenton Medina MD POINT OF CARE TEST ORDERABLES Fi nal Result Performing Organization Address [facility] Co de Phone Number [facility] See Below * (ABNORMAL) POCT Glucose, Fingerstick (04/10/2025 3:47 PM EDT) POC Glucose 126(H) 65 - 99 mg/dL 04/10/2025 3:51 PM EDT Blood specimen / Unknown 04/10/2025 3:47 PM EDT 04/10/2025 3:51 PM EDT us Kenton Medina MD POINT OF CARE TEST ORDERABLES Fi nal Result HOSPITAL LAB See Below * (ABNORMAL) COMPLETE BLOOD COUNT, WITHOUT DIFFERENTIAL (04/10/2025 3:13 PM EDT) White Blood Cell Count 17.8(H) 4.0 - 11.0 Thou/uL 04/10/2025 5:33 PM EDT [facility] Platelet Count 411 150 - 450 Thou/uL 04/10/2025 5:33 PM [facility] Hemoglobin 7.4(L) 11.7 - 15.7 g/dL 04/10/2025 5:33 PM [facility] Hematocrit 21.8(L) 35.0 - 47.0 % 04/10/2025 5:33 PM [facility] Red Blood Cell Count 2.65(L) 4.00 - 5.40 Mil/uL 04/10/2025 5:33 PM [facility] MCV 82 80 - 100 fL 04/10/2025 5:33 PM [facility] MCH 27.9 26.0 - 34.0 pg 04/10/2025 5:33 PM [facility] MCHC 33.9 30.0 - 36.0 g/dL 04/10/2025 5:33 PM [facility] RDW 16.6(H) 11.5 - 14.5 % 04/10/2025 5:33 PM [facility] MPV 9.4 7.5 - 12.5 fL 04/10/2025 5:33 PM [facility] nRBC 0.3(H) 0.0 - 0.1 /100 WBC 04/10/2025 5:33 PM [facility] nRBC, Absolute 0.06(H) 0.00 - 0.02 Thou/uL 04/10/2025 5:33 PM [facility] Blood Blood specimen / Unknown 04/10/2025 3:13 PM EDT 04/10/2025 5:17 PM EDT Luda Houser APRN LAB BLOOD ORDERABLES Final R esult Performing Organization Address City/[facility]/ZIP Co de Phone Number [address] [address], [address] [address] * (ABNORMAL) POCT Glucose, Fingerstick (04/10/2025 12:02 PM EDT) Pathologist [facility] POC Glucose 124(H) 65 - 99 mg/dL 04/10/2025 12:02 PM EDT Blood specimen / Unknown 04/10/2025 12:02 PM EDT 04/10/2025 12:03 PM EDT Kenton Medina MD POINT OF CARE TEST ORDERABLES Fi nal Result HOSPITAL LAB See Below * (ABNORMAL) COMPLETE BLOOD COUNT, WITHOUT DIFFERENTIAL (04/10/2025 9:14 AM EDT) [facility] White Blood Cell Count 20.8(H) 4.0 - 11.0 Thou/uL 04/10/2025 9:50 AM [facility] Platelet Count 402 150 - 450 Thou/uL 04/10/2025 9:50 AM [facility] Hemoglobin 8.1(L) 11.7 - 15.7 g/dL 04/10/2025 9:50 AM [facility] Hematocrit 23.9(L) 35.0 - 47.0 % 04/10/2025 9:50 AM [facility] Red Blood Cell Count 2.95(L) 4.00 - 5.40 Mil/uL 04/10/2025 9:50 AM [facility] MCV 81 80 - 100 fL 04/10/2025 9:50 AM [facility] MCH 27.5 26.0 - 34.0 pg 04/10/2025 9:50 AM [facility] MCHC 33.9 30.0 - 36.0 g/dL 04/10/2025 9:50 AM [facility] RDW 17.0(H) 11.5 - 14.5 % 04/10/2025 9:50 AM EDT [facility] MPV 9.6 7.5 - 12.5 fL 04/10/2025 9:50 AM EDT [facility] nRBC 0.3(H) 0.0 - 0.1 /100 WBC 04/10/2025 9:50 AM EDT [facility] nRBC, Absolute 0.07(H) 0.00 - 0.02 Thou/uL 04/10/2025 9:50 AM EDT [facility] Blood Blood specimen / Unknown 04/10/2025 9:14 AM EDT 04/10/2025 9:27 AM EDT us Luda Houser ROAD [employer]GGER OPERATOR LAB BLOOD ORDERABLES [place] [address], [place] [address] * ECHOCARDIOGRAM COMPREHENSIVE (04/10/2025 8:56 AM EDT) [...] 8:01 AM EDT 04/10/2025 8:11 AM EDT us Kenton Medina MD POINT OF CARE TEST ORDERABLES Fi nal Result Performing Organization Address [facility] Number [facility] See Below * Transfuse RBC's:Transfusion Indications: Hemoglobin greater than 7 gm/dl or HCT greater than 21% but Acute blood loss greater than 500 ml and symptoms not corrected by volume; Transfusion duration per unit (hrs): 1 (04/10/2025 7:09 AM EDT) Luda Houser APRN BLOOD TRANSFUSION ORDERABLES Final Result * Transfuse RBC's:Transfusion Indications: Hemoglobin greater than 7 gm/dl or HCT greater than 21% but Acute blood loss greater than 500 ml and symptoms not corrected by volume; Transfusion duration per unit (hrs): 1 (04/10/2025 7:09 AM EDT) Luda Houser APRN BLOOD TRANSFUSION ORDERABLES Final Result * (ABNORMAL) POCT Glucose, Fingerstick (04/10/2025 4:10 AM EDT) POC Glucose 150(H) 65 - 99 mg/dL 04/10/2025 4:14 AM EDT Blood specimen / Unknown 04/10/2025 4:10 AM EDT 04/10/2025 4:14 AM EDT us Kenton Medina MD POINT OF CARE TEST ORDERABLES Fi nal Result Performing Organization Address [facility] Number HOSPITAL LAB See Below * Prepare RBC's:Prepare in: Units; Number of Units: 1; Transfusion Indications: Hemoglobin greater than 7 gm/dl or HCT greater than 21% but Acute blood loss greater than 500 ml and symptoms not corrected by volume (04/10/2025 3:50 AM EDT) Units Ordered 1 04/10/2025 3:49 AM EDT [facility] 04/10/2025 3:50 AM EDT 04/10/2025 3:51 AM EDT Luda Houser APRN BLOOD BANK PRODUCT ORDERABLE S Final Result Performing Organization Address [facility] [place] [address], [place] [address] * (ABNORMAL) POCT Glucose, Fingerstick (04/10/2025 12:25 AM EDT) POC Glucose 244(H) 65 - 99 mg/dL 04/10/2025 12:25 AM EDT Blood specimen / Unknown 04/10/2025 12:25 AM EDT 04/10/2025 12:26 AM EDT us Kenton Medina MD POINT OF CARE TEST ORDERABLES Fi nal Result Performing Organization Address [facility] Co de Phone Number [facility] See Below * (ABNORMAL) POCT Glucose, Fingerstick (04/10/2025 12:22 AM EDT) POC Glucose 240(H) 65 - 99 mg/dL 04/10/2025 12:23 AM EDT Blood specimen / Unknown 04/10/2025 12:22 AM EDT 04/10/2025 12:23 AM EDT us Kenton Medina MD POINT OF CARE TEST ORDERABLES Fi nal Result Performing Organization Address City/[facility]/ZIP Co de Phone Number [facility] See Below * (ABNORMAL) Phosphorus (04/10/2025 12:06 AM EDT) Phosphorus 5.3(H) 2.7 - 4.5 mg/dL 04/10/2025 1:56 AM EDT [facility] Blood Blood specimen / Unknown 04/10/2025 12:06 AM EDT 04/10/2025 1:[address] [employer]GGER OPERATOR LAB BLOOD ORDERABLES Final R esult Performing Organization Address City/[facility]/ZIP [place] [address], [place] [address] * Magnesium (04/10/2025 12:06 AM EDT) Pathologist [facility] Magnesium 1.9 1.6 - 2.7 mg/dL 04/10/2025 1:56 AM EDT [facility] Blood Blood specimen / Unknown 04/10/2025 12:06 AM EDT 04/10/2025 1:03 AM EDT Luda Houser APRN LAB BLOOD ORDERABLES Final R [facility] Performing Organization Address City/[facility] [place] [address], [place] [address] * (ABNORMAL) Basic Metabolic Panel (04/10/2025 12:06 AM EDT) Pathologist [facility] Glucose 205(H) 65 - 99 mg/dL 04/10/2025 1:56 AM EDT [facility] Comment:Fasting: <100 mg/dL, Non-Fasting: <200 mg/dL (ADA 2004) Blood Urea Nitrogen (BUN) 9 8 - 21 mg/dL 04/10/2025 1:56 AM T [facility] Creatinine 0.54 0.40 - 1.10 mg/dL 04/10/2025 1:56 AM [facility] eGFR >90 >59 04/10/2025 1:56 AM T [facility] Comment:CKD-EPI (2020) in mL /min/1.73 sq meters. Sodium 136 136 - 145 mmol/L 04/10/2025 1:56 AM EDT [facility] Potassium 4.3 3.4 - 5.3 mmol/L 04/10/2025 1:56 AM EDT [facility] Chloride 102 98 - 107 mmol/L 04/10/2025 1:56 AM EDT [facility] CO2 25 22 - 33 mmol/L 04/10/2025 1:56 AM EDT [facility] Anion Gap 9 7 - 17 04/10/2025 1:56 AM EDT [facility] Calcium 7.5(L) 8.7 - 10.5 mg/dL 04/10/2025 1:56 AM EDT [place] [facility] BUN/Creatinine Ratio 17 10.0 - 25.0 Ratio 04/10/2025 1:56 AM EDT [facility] Blood Blood specimen / Unknown 04/10/2025 12:06 AM EDT 04/10/2025 1:[address] HOGGER OPERATOR LAB BLOOD ORDERABLES [place] [address], [place] [address] * (ABNORMAL) Calcium, Ionized (04/10/2025 12:06 AM EDT) Pathologist [facility] [place] Calcium, Ionized 1.11(L) 1.17 - 1.33 mmol/L 04/10/2025 1:08 AM EDT [facility] Blood Blood specimen / Unknown 04/10/2025 12:06 AM EDT 04/10/2025 1:03 AM EDT [address] HOGGER OPERATOR LAB BLOOD ORDERABLES [place] [address], [place] [address] * (ABNORMAL) COMPLETE BLOOD COUNT, WITHOUT DIFFERENTIAL (04/10/2025 12:06 AM EDT) White Blood Cell Count 30.3(HH) 4.0 - 11.0 Thou/uL 04/10/2025 1:40 AM [facility] Comment:Results verified by smear review. Platelet Count 412 150 - 450 Thou/uL 04/10/2025 1:40 AM [facility] Hemoglobin 7.2(L) 11.7 - 15.7 g/dL 04/10/2025 1:40 AM [facility] Hematocrit 21.7(L) 35.0 - 47.0 % 04/10/2025 1:40 AM [facility] Red Blood Cell Count 2.73(L) 4.00 - 5.40 Mil/uL 04/10/2025 1:40 AM [facility] MCV 80 80 - 100 fL 04/10/2025 1:40 AM [facility] MCH 26.4 26.0 - 34.0 pg 04/10/2025 1:40 AM [facility] MCHC 33.2 30.0 - 36.0 g/dL 04/10/2025 1:40 AM [facility] RDW 15.9(H) 11.5 - 14.5 % 04/10/2025 1:40 AM [facility] MPV 9.7 7.5 - 12.5 fL 04/10/2025 1:40 AM [facility] nRBC 0.3(H) 0.0 - 0.1 /100 WBC 04/10/2025 1:40 AM [facility] nRBC, Absolute 0.08(H) 0.00 - 0.02 Thou/uL 04/10/2025 1:40 AM [facility] Blood Blood specimen / Unknown 04/10/2025 12:06 AM EDT 04/10/2025 1:03 AM EDT us Luda Houser [address] HOGGER OPERATOR LAB BLOOD ORDERABLES Final R esult [address] [address], [address] [address] * Hemoglobin A1c with Estimated Average Glucose (Routine) (04/10/2025 12:06 AM EDT) Hemoglobin A1C 5.3 <5.7 % 04/10/2025 2:13 AM EDT [facility] Comment: A1c% Interpretation 5.7 - 6.0 Increase risk of diabetes 6.1 - 6.4 Higher risk of diabetes > or = 6.5 Consistent with diabetes Diabetes Care, 33(Supp 1):S1-S61, 2009 Estimated Average Glucose 105 mg/dL 04/10/2025 2:13 AM EDT [facility] Blood Blood specimen / Unknown 04/10/2025 12:06 AM EDT 04/10/2025 1:03 AM EDT Sophia Yarbrough MD LAB BLOOD ORDERABLES F inal Result Performing Organization Address City/State/[facility] [place] [address], [place] [address] * Transfuse RBC's:Transfusion Indications: Hemoglobin less than 7 gm/dl or HCT less than 21%; Transfusion duration per unit (hrs): 1 (04/09/2025 10:25 PM EDT) Sophia Yarbrough MD BLOOD TRANSFUSION ORDMary GUAJARDO Final Result * Transfuse RBC's:Transfusion Indications: Hemoglobin less than 7 gm/dl or HCT less than 21%; Transfusion duration per unit (hrs): 1 (04/09/2025 10:25 PM EDT) Sophia Yarbrough MD BLOOD TRANSFUSION ORDE BENNETT Final Result * CREATINE KINASE (CK) (04/09/2025 9:29 PM EDT) Creatine Kinase (CK) 123 24 - 173 U/L 04/09/2025 10:31 PM EDT [facility] Blood Blood specimen / Unknown 04/09/2025 9:29 PM EDT 04/09/2025 10:07 PM EDT Ani Mami Brown [address] HOGGER OPERATOR LAB BLOOD ORDERABLES Fin al Result Performing Organization Address [facility] Co de Phone Number [address] [address], [address] [address] * (ABNORMAL) POCT Glucose, Fingerstick (04/09/2025 8:05 PM EDT) POC Glucose 111(H) 65 - 99 mg/dL 04/09/2025 8:05 PM EDT Blood specimen / Unknown 04/09/2025 8:05 PM EDT 04/09/2025 8:06 PM EDT us Kenton Medina MD POINT OF CARE TEST ORDERABLES Fi nal Result Performing Organization Address City/[facility] Co de Phone Number HOSPITAL LAB See Below * Prepare RBC's:Prepare in: Units; Number of Units: 1; Transfusion Indications: Hemoglobin less than 7 gm/dl or HCT less than 21% (04/09/2025 6:11 PM EDT) Units Ordered 1 04/09/2025 6:12 PM EDT [facility] 04/09/2025 6:11 PM EDT 04/10/2025 3:52 AM EDT us Sophia Yarbrough MD BLOOD BANK PRODUCT ORD ERABLES Final Result Performing Organization Address [facility] Co de Phone Number [address] [address], [address] [address] * (ABNORMAL) POCT Glucose, Fingerstick (04/09/2025 5:20 PM EDT) POC Glucose 145(H) 65 - 99 mg/dL 04/09/2025 8:05 PM EDT Blood specimen / Unknown 04/09/2025 5:20 PM EDT 04/09/2025 8:05 PM EDT us Kenton Medina MD POINT OF CARE TEST ORDERABLES Fi nal Result [facility]OSPITAL LAB See Below * (ABNORMAL) Thromboelastograph (TEG) (04/09/2025 5:20 PM EDT) Reaction Time 3.3(L) 5 - 10 minutes 04/09/2025 7:49 PM EDT [facility] Reaction Time,Heparinized 3.6(L) 5 - 10 minutes 04/09/2025 7:49 PM EDT [facility] Fibrin Function 1.0 1 - 3 minutes 04/09/2025 7:49 PM EDT [facility] Fibrin Function,Heparin ized 0.9(L) 1 - 3 minutes 04/09/2025 7:49 PM EDT [facility] Angle 76.8(H) 53 - 72 degrees 04/09/2025 7:49 PM T [facility] Angle, Heparinized 75.8(H) 53 - 72 degrees 04/09/2025 7:49 PM [facility] Max Amplitude 69.6 50 - 70 mm 04/09/2025 7:49 PM [facility] Max Amplitude,Hepari nized 65.1 50 - 70 mm 04/[facility] %Lysis 30 min 0.0 0 - 8 % 04/09/2025 7:49 PM [facility] %Lysis 30 min,Heparinized 1.4 0 - 8 % 04/09/2025 7:49 PM [facility] Anticoagulant SUB Q UNFRACTIONATED HEPARIN 04/09/2025 5:21 PM [facility] Blood Blood specimen / Unknown 04/09/2025 5:20 PM EDT 04/09/2025 5:41 PM EDT us Sophia Yarbrough MD LAB BLOOD ORDERABLES F inal Result [address] [address], [address] [address] * (ABNORMAL) Phosphorus (04/09/2025 5:20 PM EDT) Phosphorus 5.2(H) 2.7 - 4.5 mg/dL 04/09/2025 6:26 PM EDT [facility] Blood Blood specimen / Unknown 04/09/2025 5:20 PM EDT 04/09/2025 5:55 PM EDT us Sophia Yarbrough MD LAB BLOOD ORDERABLES F inal Result Performing Organization Address City/[facility]/ZIP [place] [address], [place] [address] * Magnesium (04/09/2025 5:20 PM EDT) Magnesium 1.7 1.6 - 2.7 mg/dL 04/09/2025 6:26 PM EDT [facility] Blood Blood specimen / Unknown 04/09/2025 5:20 PM EDT 04/09/2025 5:55 PM EDT us Sophia Yarbrough MD LAB BLOOD ORDERABLES F inal Result Performing Organization Address [facility] [place] [address], [place] [address] * (ABNORMAL) Basic Metabolic Panel (04/09/2025 5:20 PM EDT) Glucose 126(H) 65 - 99 mg/dL 04/09/2025 6:26 PM EDT [facility] Comment:Fasting: <100 mg/dL, Non-Fasting: <200 mg/dL (ADA 2004) Blood Urea Nitrogen (BUN) 7(L) 8 - 21 mg/dL 04/09/2025 6:26 PM EDT [facility] Creatinine 0.58 0.40 - 1.10 mg/dL 04/09/2025 6:26 PM T [facility] eGFR >90 >59 04/09/2025 6:26 PM T [facility] Comment:CKD-EPI (2020) in mL /min/1.73 sq meters. Sodium 136 136 - 145 mmol/L 04/09/2025 6:26 PM EDT [facility] Potassium 3.9 3.4 - 5.3 mmol/L 04/09/2025 6:26 PM [facility] Chloride 104 98 - 107 mmol/L 04/09/2025 6:[facility] CO2 26 22 - 33 mmol/L 04/09/2025 6:26 PM [facility] Anion Gap 6(L) 7 - 17 04/09/2025 6:26 PM EDT [facility] Calcium 8.7 8.7 - 10.5 mg/dL 04/09/2025 6:26 PM EDT [facility] BUN/Creatinine Ratio 12 10.0 - 25.0 Ratio 04/09/2025 6:26 PM [facility] Blood Blood specimen / Unknown 04/09/2025 5:20 PM EDT 04/09/2025 5:55 PM EDT Sophia Yarbrough MD LAB BLOOD ORDERABLES [place] [address], [place] [address] * (ABNORMAL) COMPLETE BLOOD COUNT, WITHOUT DIFFERENTIAL (04/09/2025 5:20 PM EDT) White Blood Cell Count 17.1(H) 4.0 - 11.0 Thou/uL 04/09/2025 6:10 PM [facility] Platelet Count 411 150 - 450 Thou/uL 04/09/2025 6:10 PM [facility] Hemoglobin 8.3(L) 11.7 - 15.7 g/dL 04/09/2025 6:10 PM [facility] Hematocrit 26.6(L) 35.0 - 47.0 % 04/09/2025 6:10 PM [facility] Red Blood Cell Count 3.23(L) 4.00 - 5.40 Mil/uL 04/09/2025 6:10 PM [facility] MCV 82 80 - 100 fL 04/09/2025 6:10 PM [facility] MCH 25.7(L) 26.0 - 34.0 pg 04/09/2025 6:10 PM EDT [facility] MCHC 31.2 30.0 - 36.0 g/dL 04/09/2025 6:10 PM EDT [facility] RDW 16.4(H) 11.5 - 14.5 % 04/09/2025 6:10 PM EDT [facility] MPV 9.2 7.5 - 12.5 fL 04/09/2025 6:10 PM EDT [facility] nRBC 0.2(H) 0.0 - 0.1 /100 WBC 04/09/2025 6:10 PM EDT [facility] nRBC, Absolute 0.03(H) 0.00 - 0.02 Thou/uL 04/09/2025 6:10 PM EDT [facility] Blood Blood specimen / Unknown 04/09/2025 5:20 PM EDT 04/09/2025 5:55 PM EDT us Sophia Yarbrough MD LAB BLOOD ORDERABLES F inal Result Performing Organization Address City/[facility]/ZIP [place] [address], [place] [address] * LACTIC ACID, PLASMA (04/09/2025 5:20 PM EDT) Lactic Acid 1.4 0.5 - 1.9 mmol/L 04/09/2025 6:25 PM EDT [facility] Blood Blood specimen / Unknown 04/09/2025 5:20 PM EDT 04/09/2025 5:53 PM EDT us Sophia Yarbrough MD LAB BLOOD ORDERABLES [place] [address], [place] [address] * Calcium, Ionized (04/09/2025 5:20 PM EDT) Calcium, Ionized 1.27 1.17 - 1.33 mmol/L 04/09/2025 6:06 PM EDT [facility] Blood Blood specimen / Unknown 04/09/2025 5:20 PM EDT 04/09/2025 5:55 PM EDT Sophia Yarbrough MD LAB BLOOD ORDERABLES F inal Result Performing Organization Address City/[facility]/ZIP [place] [address], [place] [address] * (ABNORMAL) CREATINE KINASE (CK) (04/09/2025 5:20 PM EDT) [facility] Creatine Kinase (CK) 262(H) 24 - 173 U/L 04/09/2025 6:26 PM EDT [facility] Blood Blood specimen / Unknown 04/09/2025 5:20 PM EDT 04/09/2025 5:55 PM EDT Ani Brown APRN LAB BLOOD ORDERABLES Fin al Result Performing Organization Address City/[facility]/ZIP [place] [address], [place] [address] * Transfuse Fresh Frozen Plasma: (04/09/2025 4:36 [...] Units Ordered 1 04/09/2025 4:07 PM EDT [facility] Unit Number [id number] 04/09/2025 4:15 PM EDT [facility] Blood Component Type THAWED PLASMA 04/09/2025 4:15 PM EDT [facility] Unit Division 00 04/09/2025 4:15 PM EDT [facility] Unit Status ISSUED,FINAL 04/10/2025 12:32 AM EDT [facility] Transfusion Status OK TO TRANSFUSE 04/09/2025 4:15 PM EDT [facility] 04/09/2025 4:07 PM EDT 04/09/2025 4:14 PM EDT Олег Vasquez DO BLOOD BANK PRODUCT ORDERABLE S Final Result [place] [address] * Prepare RBC's:Prepare in: Units; Number of Units: 2; Transfusion Indications: Hemoglobin greater than 7 gm/dl or HCT greater than 21% but Acute blood loss greater than 500 ml and symptoms not corrected by volume (04/09/2025 4:07 PM EDT) [facility] Units Ordered 2 04/09/2025 4:06 PM EDT [facility] 04/09/2025 4:07 PM EDT 04/09/2025 4:14 PM EDT Олег Vasquez DO BLOOD BANK PRODUCT ORDERABLE S Final Result [address] [address], [address] [address] * (ABNORMAL) POCT Glucose, Fingerstick (04/09/2025 12:42 PM EDT) [facility] POC Glucose 136(H) 65 - 99 mg/dL 04/09/2025 12:43 PM EDT Blood specimen / Unknown 04/09/2025 12:42 PM EDT 04/09/2025 12:43 PM EDT us Kenton Medina MD POINT OF CARE TEST ORDERABLES Fi nal Result [facility]OSPITAL LAB See Below * (ABNORMAL) COMPLETE BLOOD COUNT, WITHOUT DIFFERENTIAL (04/09/2025 12:21 PM EDT) White Blood Cell Count 12.4(H) 4.0 - 11.0 Thou/uL 04/09/2025 1:17 PM [facility] Platelet Count 447 150 - 450 Thou/uL 04/09/2025 1:17 PM [facility] Hemoglobin 7.2(L) 11.7 - 15.7 g/dL 04/09/2025 1:17 PM [facility] Hematocrit 22.4(L) 35.0 - 47.0 % 04/09/2025 1:17 PM [facility] Red Blood Cell Count 2.85(L) 4.00 - 5.40 Mil/uL 04/09/2025 1:17 PM [facility] MCV 79(L) 80 - 100 fL 04/09/2025 1:17 PM [facility] MCH 25.3(L) 26.0 - 34.0 pg 04/09/2025 1:17 PM [facility] MCHC 32.1 30.0 - 36.0 g/dL 04/09/2025 1:17 PM [facility] RDW 16.7(H) 11.5 - 14.5 % 04/09/2025 1:17 PM [facility] MPV 9.1 7.5 - 12.5 fL 04/09/2025 1:17 PM [facility] nRBC 0.2(H) 0.0 - 0.1 /100 WBC 04/09/2025 1:17 PM [facility] nRBC, Absolute 0.03(H) 0.00 - 0.02 Thou/uL 04/09/2025 1:17 PM [facility] Blood Blood specimen / Unknown 04/09/2025 12:21 PM EDT 04/09/2025 12:53 PM EDT us Sophia Yarbrough MD LAB BLOOD ORDERABLES F inal Result Performing Organization Address [facility] Co de Phone Number [address] [address], [address] [address] * Phosphorus (04/09/2025 12:21 PM EDT) Phosphorus 3.7 2.7 - 4.5 mg/dL 04/09/2025 2:11 PM EDT [facility] Blood Blood specimen / Unknown 04/09/2025 12:21 PM EDT 04/09/2025 12:53 PM EDT us Sophia Yarbrough MD LAB BLOOD ORDERABLES F inal Result Performing Organization Address [facility] [place] [address], [address] [address] * Magnesium (04/09/2025 12:21 PM EDT) Magnesium 1.9 1.6 - 2.7 mg/dL 04/09/2025 2:11 PM EDT [facility] Blood Blood specimen / Unknown 04/09/2025 12:21 PM EDT 04/09/2025 12:53 PM EDT us Sophia Yarbrough MD LAB BLOOD ORDERABLES F inal Result Performing Organization Address [facility] Co de Phone Number [address] [address], [address] [address] * (ABNORMAL) Basic Metabolic Panel (04/09/2025 12:21 PM EDT) Glucose 105(H) 65 - 99 mg/dL 04/09/2025 2:11 PM EDT [facility] Comment:Fasting: <100 mg/dL, Non-Fasting: <200 mg/dL (ADA 2005) Blood Urea Nitrogen (BUN) 9 8 - 21 mg/dL 04/09/2025 2:11 PM EDT [facility] Creatinine 0.63 0.40 - 1.10 mg/dL 04/09/2025 2:11 PM EDT [facility] eGFR >90 >59 04/09/2025 2:11 PM T [facility] Comment:CKD-EPI (2020) in mL /min/1.73 sq meters. Sodium 145 136 - 145 mmol/L 04/09/2025 2:11 PM EDT [facility] Potassium 3.8 3.4 - 5.3 mmol/L 04/09/2025 2:11 PM EDT [facility] Chloride 105 98 - 107 mmol/L 04/09/2025 2:11 PM EDT [facility] CO2 29 22 - 33 mmol/L 04/09/2025 2:11 PM [facility] Anion Gap 11 7 - 17 04/09/2025 2:11 PM [facility] Calcium 7.5(L) 8.7 - 10.5 mg/dL 04/09/2025 2:11 PM T [facility] BUN/Creatinine Ratio 14 10.0 - 25.0 Ratio 04/09/2025 2:11 PM [facility] Blood Blood specimen / Unknown 04/09/2025 12:21 PM EDT 04/09/2025 12:53 PM EDT Sophia Yarbrough MD LAB BLOOD ORDERABLES [place] [address], [address] [address] * POCT Glucose, Fingerstick (04/09/2025 11:45 AM EDT) POC Glucose 69 65 - 99 mg/dL 04/09/2025 11:46 AM EDT Blood specimen / Unknown 04/09/2025 11:45 AM EDT 04/09/2025 11:46 AM EDT Kenton Medina MD POINT OF CARE TEST ORDERABLES Fi nal Result [facility]OSPITAL LAB See Below * Blood Culture (04/09/2025 11:10 AM EDT) Culture Sterile after 5 days 04/14/2025 7:08 AM EDT [facility] Blood Blood specimen / Unknown 04/09/2025 11:10 AM EDT 04/09/2025 12:05 PM EDT Comment:Blood us Anisa Perez MD LAB BLOOD ORDERABLES Final Resu lt [facility] [address] [place] [address], * CREATINE KINASE (CK) (04/09/2025 10:25 AM EDT) Creatine Kinase (CK) 91 24 - 173 U/L 04/09/2025 12:23 PM EDT [facility] Blood Blood specimen / Unknown 04/09/2025 10:25 AM EDT 04/09/2025 11:10 AM EDT us Ani Brown APRN LAB BLOOD ORDERABLES Fin al Result [address] [address], [place] [address] [address] * Type and Screen (04/09/2025 10:20 AM EDT) ABO/Rh A POSITIVE 04/09/2025 12:20 PM EDT [facility] Antibody Screen NEGATIVE 04/09/2025 12:20 PM EDT [facility] Specimen Expiration 04/12/2025 04/09/2025 12:20 PM EDT [facility] Blood Bank Comment Second Sample needed for Blood Transfusion 04/09/2025 12:20 PM EDT [facility] Unit Number [id number] 04/09/2025 2:44 PM EDT [facility] Blood Component Type LEUKOREDUCED RED CELLS 04/09/2025 2:44 PM EDT [facility] Unit Division 00 04/09/2025 2:44 PM EDT [facility] Unit Status ISSUED,FINAL 04/10/2025 12:32 AM EDT [facility] Transfusion Status OK TO TRANSFUSE 04/09/2025 2:44 PM EDT [facility] Crossmatch Result Electronically Compatible 04/09/2025 2:44 PM EDT [facility] Unit Number [id number] 04/09/2025 2:44 PM EDT [facility] Blood Component Type LEUKOREDUCED RED CELLS 04/09/2025 2:44 PM EDT [facility] Unit Division 00 04/09/2025 2:44 PM EDT [facility] Unit Status ISSUED,FINAL 04/10/2025 12:32 AM T [facility] Transfusion Status OK TO TRANSFUSE 04/09/2025 2:44 PM EDT [facility] Crossmatch Result Electronically Compatible 04/09/2025 2:44 PM EDT [facility] Unit Number [id number] 04/09/2025 4:17 PM EDT [facility] Blood Component Type LEUKOREDUCED RED CELLS 04/09/2025 4:17 PM EDT [facility] Unit Division 00 04/09/2025 4:17 PM EDT [facility] Unit Status ISSUED,FINAL 04/10/2025 12:32 AM [facility] Transfusion Status OK TO TRANSFUSE 04/09/2025 4:17 PM EDT [facility] Crossmatch Result Electronically Compatible 04/09/2025 4:17 PM EDT [facility] Unit Number [id number] 04/09/2025 4:17 PM EDT [facility] Blood Component Type LEUKOREDUCED RED CELLS 04/09/2025 4:17 PM EDT [facility] Unit Division 00 04/09/2025 4:17 PM EDT [facility] Unit Status ISSUED,FINAL 04/11/2025 12:30 AM [facility] Transfusion Status OK TO TRANSFUSE 04/09/2025 [facility] Cross[facility] Result Electronically Compatible 04/09/2025 4:17 PM EDT [facility] Unit Number [id number] 04/11/2025 1:43 AM EDT [facility] Blood Component Type LEUKOREDUCED RED CELLS 04/11/2025 1:43 AM EDT [facility] Unit Division 00 04/11/2025 1:43 AM EDT [facility] Unit Status ISSUED,FINAL 04/12/2025 12:17 AM EDT [facility] Transfusion Status OK TO TRANSFUSE 04/11/2025 1:43 AM EDT [facility] Crossmatch Result Electronically Compatible 04/11/2025 1:43 AM EDT [facility] Blood Blood specimen / Unknown 04/09/2025 10:20 AM EDT 04/09/2025 11:11 AM EDT Comment:Blood us Sophia Yarbrough MD BLOOD BANK TEST ORDERA BLES Final Result Performing Organization Address City/State/[facility] Co de Phone Number [place] [address] * Prepare RBC's:Prepare in: Units; Number of Units: 2; Transfusion Indications: Hemoglobin less than 7 gm/dl or HCT less than 21% (04/09/2025 10:19 AM EDT) Units Ordered 2 04/09/2025 10:19 AM EDT [facility] 04/09/2025 10:1 9 AM EDT 04/09/2025 4:19 PM EDT us Sophia Yarbrough MD BLOOD BANK PRODUCT ORD ERABLES Final Result Performing Organization Address City/[facility] [place] [address], [place] [address] * POCT Glucose, Fingerstick (04/09/2025 7:59 AM EDT) POC Glucose 74 65 - 99 mg/dL 04/09/2025 8:20 AM EDT Blood specimen / Unknown 04/09/2025 7:59 AM EDT 04/09/2025 8:19 AM EDT us Kenton Medina MD POINT OF CARE TEST ORDERABLES Fi nal Result [facility]ITAL [facility] See Below * POCT Glucose, Fingerstick (04/09/2025 3:45 AM EDT) POC Glucose 78 65 - 99 mg/dL 04/09/2025 3:46 AM EDT Blood specimen / Unknown 04/09/2025 3:45 AM EDT 04/09/2025 3:46 AM EDT Kenton Medina MD POINT OF CARE TEST ORDERABLES Fi nal Result Performing Organization Address [facility] Co de Phone Number [facility] See Below * CREATINE KINASE (CK) (04/09/2025 3:24 AM EDT) Pathologist [facility] Creatine Kinase (CK) 97 24 - 173 U/L 04/09/2025 4:53 AM EDT [facility] Blood Blood specimen / Unknown 04/09/2025 3:24 AM EDT 04/09/2025 4:[address] HOGGER OPERATOR LAB BLOOD ORDERABLES Fin al Result Performing Organization Address [facility] [place] [address], [address] [address] * Magnesium (04/09/2025 3:24 AM EDT) Pathologist [facility] Magnesium 2.1 1.6 - 2.7 mg/dL 04/09/2025 4:53 AM EDT [facility] Blood Blood specimen / Unknown 04/09/2025 3:24 AM EDT 04/09/2025 4:06 AM EDT Ani Mami Brown [address] HOGGER OPERATOR LAB BLOOD ORDERABLES Fin al Result Performing Organization Address [facility] Co [place] [address], [address] [address] * Phosphorus (04/09/2025 3:24 AM EDT) Phosphorus 3.7 2.7 - 4.5 mg/dL 04/09/2025 4:53 AM [facility] Blood Blood specimen / Unknown 04/09/2025 3:24 AM EDT 04/09/2025 4:[address] [employer]ER OPERATOR LAB BLOOD ORDERABLES Fin al Result [address] [address], [address] [address] * (ABNORMAL) COMPLETE BLOOD COUNT, WITHOUT DIFFERENTIAL (04/09/2025 3:24 AM EDT) Pathologist [facility] [place] White Blood Cell Count 12.3(H) 4.0 - 11.0 Thou/uL 04/09/2025 4:23 AM [facility] Platelet Count 418 150 - 450 Thou/uL 04/09/2025 4:23 AM [facility] Hemoglobin 7.0(L) 11.7 - 15.7 g/dL 04/09/2025 4:23 AM [facility] Hematocrit 21.7(L) 35.0 - 47.0 % 04/09/2025 4:23 AM [facility] Red Blood Cell Count 2.80(L) 4.00 - 5.40 Mil/uL 04/09/2025 4:23 AM [facility] MCV 78(L) 80 - 100 fL 04/09/2025 4:23 AM [facility] MCH 25.0(L) 26.0 - 34.0 pg 04/09/2025 4:23 AM [facility] MCHC 32.3 30.0 - 36.0 g/dL 04/09/2025 4:23 AM [facility] RDW 16.1(H) 11.5 - 14.5 % 04/09/2025 4:23 AM [facility] MPV 9.4 7.5 - 12.5 fL 04/09/2025 4:23 AM EDT [facility] Blood Blood specimen / Unknown 04/09/2025 3:24 AM EDT 04/09/2025 4:06 AM EDT us Ani Brown [address] [employer]GGER OPERATOR LAB BLOOD ORDERABLES Fin al Result [address] [address], [facility] [address] [place] [address] * (ABNORMAL) Basic Metabolic Panel (04/09/2025 3:24 AM EDT) Pathologist [facility] Glucose 77 65 - 99 mg/dL 04/09/2025 4:53 AM [facility] Comment:Fasting: <100 mg/dL, Non-Fasting: <200 mg/dL (ADA 2004) Blood Urea Nitrogen (BUN) 10 8 - 21 mg/dL 04/09/2025 4:53 AM [facility] Creatinine 0.66 0.40 - 1.10 mg/dL 04/09/2025 4:53 AM [facility] eGFR >90 >59 04/09/2025 4:53 AM [facility] Comment:CKD-EPI (2020) in mL /min/1.73 sq meters. Sodium 141 136 - 145 mmol/L 04/09/2025 4:53 AM [facility] Potassium 3.4 3.4 - 5.3 mmol/L 04/09/2025 4:53 AM [facility] Chloride 105 98 - 107 mmol/L 04/09/2025 4:53 AM [facility] CO2 29 22 - 33 mmol/L 04/09/2025 4:53 AM [facility] Anion Gap 7 7 - 17 04/09/2025 4:53 AM [facility] Calcium 7.4(L) 8.7 - 10.5 mg/dL 04/09/2025 4:53 AM [facility] BUN/Creatinine Ratio 15 10.0 - 25.0 Ratio 04/09/2025 4:53 AM [facility] Blood Blood specimen / Unknown 04/09/2025 3:24 AM EDT 04/09/2025 4:06 AM EDT us Ani Brown [address] [employer]GGER OPERATOR LAB BLOOD ORDERABLES Fin al Result Performing Organization Address [facility] Co de Phone Number [facility] [address] [place] [address], [address] [address] * Blood Culture (04/09/2025 1:31 AM EDT) Culture Sterile after 5 days 04/14/2025 7:08 AM EDT [facility] Blood Blood specimen / Unknown 04/09/2025 1:31 AM EDT 04/09/2025 2:29 AM EDT Comment:Blood Anisa Perez MD LAB BLOOD ORDERABLES Final Resu lt Performing Organization Address [facility] Co de Phone Number [facility] [address] [place] [address], * (ABNORMAL) POCT Glucose, Fingerstick (04/09/2025 12:36 AM EDT) POC Glucose 100(H) 65 - 99 mg/dL 04/09/2025 12:36 AM EDT Blood specimen / Unknown 04/09/2025 12:36 AM EDT 04/09/2025 12:37 AM EDT Kenton Medina MD POINT OF CARE TEST ORDERABLES Fi nal Result Performing Organization Address [facility] Co de Phone Number HOSPITAL LAB See Below * CT Abdomen+pelvis [...] right lateral abdominal wall. Ani Brown APRN IMG CT ORDERABLES Edited Result - Final [...] along the right lateral abdominal wall. Ani Morelchandler Brown ROAD HOGGER OPERATOR IMG CT ORDERABLES Edited Result - Final [...] IJ central venous catheter tip beyond the [id number]. The visualized orbits and paranasal air sinuses [...] IJ central venous catheter tip beyond the [id number]. The visualized orbits and paranasal air sinuses [...] chest wall abscess/soft tissue infection. Ani Brown ROAD HOGGER OPERATOR IMG CT ORDERABLES Final Result * CT [...] especially along the right lateral abdominal wall. us Ani Bolaños Kevin ROAD HOGGER OPERATOR IMG CT ORDERABLES Edited Result - Final [...] stool burden. Interpreted by: Emilee Casas MD Slat Basket Maker Machine I personally reviewed the images and the [...] stool burden. Interpreted by: Emilee Casas MD Slat Basket Maker Machine I personally reviewed the images and the resident's preliminary report and AGREE with the report as it is now presented (RADPAL1). Ani Bolaños Kevin [address] HOGGER OPERATOR IMG DIAGNOSTIC IMAGING O RDERABLES Final Result [...] stool burden. Interpreted by: Emilee Casas MD Slat Basket Maker Machine I personally reviewed the images and the [...] stool burden. Interpreted by: Emilee Casas MD Slat Basket Maker Machine I personally reviewed the images and the resident's preliminary report and AGREE with the report as it is now presented (RADPAL1). Ani Brown APRN IMG DIAGNOSTIC IMAGING O RDERABLES Final Result * (ABNORMAL) Triglycerides (04/08/2025 9:15 PM EDT) [facility] Triglycerides 234(H) <150 mg/dL 04/08/2025 10:46 PM EDT [facility] Blood Blood specimen / Unknown 04/08/2025 9:15 PM EDT 04/08/2025 10:05 PM EDT Ani Brown APRN LAB BLOOD ORDERABLES Fin al Result Performing Organization Address City/[facility]/ZIP [place] [address], [address] [address] * CREATINE KINASE (CK) (04/08/2025 9:15 PM EDT) [facility] Creatine Kinase (CK) 138 24 - 173 U/L 04/08/2025 10:46 PM EDT [facility] Blood Blood specimen / Unknown 04/08/2025 9:15 PM EDT 04/08/2025 10:05 PM EDT Ani Brown APRN LAB BLOOD ORDERABLES Fin al Result Performing Organization Address [facility]/ZIP [place] [address], [address] [address] * (ABNORMAL) Complete Blood Count WITHOUT Differential - STAT (04/08/2025 9:15 PM EDT) [facility] White Blood Cell Count 9.4 4.0 - 11.0 Thou/uL 04/08/2025 10:24 PM EDT [facility] Platelet Count 390 150 - 450 Thou/uL 04/08/2025 10:24 PM [facility] Hemoglobin 7.2(L) 11.7 - 15.7 g/dL 04/08/2025 10:24 PM [facility] Hematocrit 22.4(L) 35.0 - 47.0 % 04/08/2025 10:24 PM [facility] Red Blood Cell Count 2.89(L) 4.00 - 5.40 Mil/uL 04/08/2025 10:24 PM [facility] MCV 78(L) 80 - 100 fL 04/08/2025 10:24 PM [facility] MCH 24.9(L) 26.0 - 34.0 pg 04/08/2025 10:24 PM [facility] MCHC 32.1 30.0 - 36.0 g/dL 04/08/2025 10:24 PM [facility] RDW 16.4(H) 11.5 - 14.5 % 04/08/2025 10:24 PM [facility] MPV 9.4 7.5 - 12.5 fL 04/08[facility]25 [facility] Blood specimen / Unknown 04/08/2025 9:15 PM EDT 04/08/2025 10:[address] HOGGER OPERATOR LAB BLOOD ORDERABLES Fin al Result [address] [address], [address] [address] * (ABNORMAL) Calcium, Ionized (04/08/2025 9:15 PM EDT) [facility] Calcium, Ionized 1.05(L) 1.17 - 1.33 mmol/L 04/08/2025 10:18 PM EDT [facility] Blood Blood specimen / Unknown 04/08/2025 9:15 PM EDT 04/08/2025 10:[address] HOGGER OPERATOR LAB BLOOD ORDERABLES Fin al Result Performing Organization Address [facility] Co de Phone Number [address] [address], [address] [address] * Phosphorus (04/08/2025 9:15 PM EDT) Phosphorus 3.5 2.7 - 4.5 mg/dL 04/08/2025 10:46 PM EDT [facility] Blood Blood specimen / Unknown 04/08/2025 9:15 PM EDT 04/08/2025 10:[address] HOGGER OPERATOR LAB BLOOD ORDERABLES Fin al Result Performing Organization Address [facility] Co de Phone Number [address] [address], [address] [address] * Magnesium (04/08/2025 9:15 PM EDT) Magnesium 2.1 1.6 - 2.7 mg/dL 04/08/2025 10:46 PM EDT [facility] Blood Blood specimen / Unknown 04/08/2025 9:15 PM EDT 04/08/2025 10:[address] HOGGER OPERATOR LAB BLOOD ORDERABLES Fin al Result Performing Organization Address City/[facility]/ZIP Co de Phone Number [address] [address], [address] [address] * LACTIC ACID, PLASMA (04/08/2025 9:15 PM EDT) Lactic Acid 1.1 0.5 - 1.9 mmol/L 04/08/2025 10:36 PM EDT [facility] Blood Blood specimen / Unknown 04/08/2025 9:15 PM EDT 04/08/2025 10:05 PM EDT us Ani Brown APRN LAB BLOOD ORDERABLES Fin al Result [address] [address], [address] [address] * (ABNORMAL) Basic Metabolic Panel (04/08/2025 9:15 PM EDT) Glucose 83 65 - 99 mg/dL 04/08/2025 10:46 PM EDT [facility] Comment:Fasting: <100 mg/dL, Non-Fasting: <200 mg/dL (ADA 2004) Blood Urea Nitrogen (BUN) 10 8 - 21 mg/dL 04/08/2025 10:46 PM EDT [facility] Creatinine 0.58 0.40 - 1.10 mg/dL 04/08/2025 10:46 PM T [facility] eGFR >90 >59 04/08/2025 10:46 PM T [facility] Comment:CKD-EPI (2020) in mL /min/1.73 sq meters. Sodium 138 136 - 145 mmol/L 04/08/2025 10:46 PM EDT [facility] Potassium 3.6 3.4 - 5.3 mmol/L 04/08/2025 10:46 PM [facility] Chloride 102 98 - 107 mmol/L 04/08/2025 10:[facility] CO2 26 22 - 33 mmol/L 04/08/2025 10:46 PM EDT [facility] Anion Gap 10 7 - 17 04/08/2025 10:46 PM EDT [facility] Calcium 7.1(L) 8.7 - 10.5 mg/dL 04/08/2025 10:46 PM T [facility] BUN/Creatinine Ratio 17 10.0 - 25.0 Ratio 04/08/2025 10:46 PM [facility] Blood Blood specimen / Unknown 04/08/2025 9:15 PM EDT 04/08/2025 10:05 PM EDT us Ani Brown APRN LAB BLOOD ORDERABLES Fin al Result Performing Organization Address [facility] Co de Phone Number [address] [address], [address] [address] * (ABNORMAL) C-REACTIVE PROTEIN (04/08/2025 2:05 PM EDT) Pathologist [facility] C-Reactive Protein 11.38(H) 0 - 0.49 mg/dL 04/08/2025 4:11 PM EDT [facility] Blood Blood specimen / Unknown 04/08/2025 2:05 PM EDT 04/08/2025 3:16 PM EDT Anisa Perez MD LAB BLOOD ORDERABLES Final Resu lt Performing Organization Address [facility] Co de Phone Number [address] [address], [address] [address] * (ABNORMAL) Erythrocyte Sedimentation Rate (ESR) (04/08/2025 2:05 PM EDT) [facility] Erythrocyte Sediment Rate (ESR) 27(H) <20 MM/HR 04/08/2025 3:47 PM EDT [facility] Blood Blood specimen / Unknown 04/08/2025 2:05 PM EDT 04/08/2025 3:16 PM EDT Anisa Perez MD LAB BLOOD ORDERABLES Final Resu lt Performing Organization Address [facility] Co de Phone Number [address] [address], [address] [address] * Vancomycin Level, Random (04/08/2025 2:05 PM EDT) Pathologist [facility] Vancomycin, Random 17 mg/L 04/08/2025 4:12 PM EDT [facility] Comment:No reference range e stablished for random levels. Time of Last Dose Information not given 04/08/2025 2:06 PM EDT [facility] Blood Blood specimen / Unknown 04/08/2025 2:05 PM EDT 04/08/2025 3:16 PM EDT us Db Lynn MD LAB BLOOD ORDERABLES Nurys l Result Performing Organization Address [facility] Co de Phone Number [address] [address], [address] [address] * (ABNORMAL) Hepatitis Panel, Acute (04/08/2025 8:49 AM EDT) Hepatitis A Antibody IgM Nonreactive Nonreactive 04/09/2025 12:07 PM EDT [facility] Hepatitis B Core Antibody IgM Nonreactive Nonreactive 04/09/2025 12:07 PM EDT [facility] Hepatitis B Surface Ag Screen Nonreactive Nonreactive 04/09/2025 12:07 PM EDT [facility] Hepatitis C Antibody Reactive(A) Nonreactive 04/09/2025 12:07 PM EDT [facility] Comment:Presumptive evidence of antibodies to HCV. Hepatitis C Viral Load, Quantitative results to follow. Hepatitis Interpretation: These results indicate Hepatitis C infection. 04/09/2025 12:07 PM EDT [facility] Blood Blood specimen / Unknown 04/08/2025 8:49 AM EDT 04/08/2025 9:29 AM EDT us Daisy Galdamez PA-C LAB BLOOD ORDERABLES Final Re sult [facility] [address] [place] [address], * HIV 1/2 Ag/Ab CMIA Reflex to Confirmation (04/08/2025 8:49 AM EDT) HIV 1/2 Ag/Ab CMIA Nonreactive Nonreactive 04/09/2025 12:07 PM EDT [facility] Comment: Results show no [...] PA-C LAB BLOOD ORDERABLES Final Re sult [facility] [address] [place] [address], * Phosphorus (04/08/2025 5:30 AM EDT) Phosphorus 3.5 2.7 - 4.5 mg/dL 04/08/2025 6:30 AM EDT [facility] Blood Blood specimen / Unknown 04/08/2025 5:30 AM EDT 04/08/2025 5:54 AM EDT Db Lynn MD LAB BLOOD ORDERABLES Nurys l Result Performing Organization Address [facility] [place] [address], [address] [address] * Magnesium (04/08/2025 5:30 AM EDT) Magnesium 2.1 1.6 - 2.7 mg/dL 04/08/2025 6:30 AM EDT [facility] Blood Blood specimen / Unknown 04/08/2025 5:30 AM EDT 04/08/2025 5:54 AM EDT Db Lynn MD LAB BLOOD ORDERABLES Nurys l Result Performing Organization Address [facility] [place] [address], [address] [address] * (ABNORMAL) Basic Metabolic Panel (Early AM) (04/08/2025 5:30 AM EDT) Glucose 127(H) 65 - 99 mg/dL 04/08/2025 6:30 AM EDT [facility] Comment:Fasting: <100 mg/dL, Non-Fasting: <200 mg/dL (ADA 2004) Blood Urea Nitrogen (BUN) 10 8 - 21 mg/dL 04/08/2025 6:30 AM [facility] Creatinine 0.51 0.40 - 1.10 mg/dL 04/08/2025 6:30 AM [facility] eGFR >90 >59 04/08/2025 6:30 AM [facility] Comment:CKD-EPI (2020) in mL /min/1.73 sq meters. Sodium 140 136 - 145 mmol/L 04/08/2025 6:30 AM [facility] Potassium 3.7 3.4 - 5.3 mmol/L 04/08/2025 6:30 AM [facility] Chloride 101 98 - 107 mmol/L 04/08/2025 6:30 AM [facility] CO2 31 22 - 33 mmol/L 04/08/2025 6:30 AM [facility] Anion Gap 8 7 - 17 04/08/2025 6:30 AM [facility] Calcium 7.0(L) 8.7 - 10.5 mg/dL 04/08/2025 6:30 AM [facility] BUN/Creatinine Ratio 20 10.0 - 25.0 Ratio 04/08/2025 6:30 AM [facility] Blood Blood specimen / Unknown 04/08/2025 5:30 AM EDT 04/08/2025 5:54 AM EDT us Db Lynn MD LAB BLOOD ORDERABLES Nurys charles Result [address] [address], [address] [address] * (ABNORMAL) Complete Blood Count WITHOUT Differential - Early AM (04/08/2025 5:30 AM EDT) White Blood Cell Count 15.0(H) 4.0 - 11.0 Thou/uL 04/08/2025 6:07 AM [facility] Platelet Count 392 150 - 450 Thou/uL 04/08/2025 6:07 AM [facility] Hemoglobin 8.0(L) 11.7 - 15.7 g/dL 04/08/2025 6:07 AM [facility] Hematocrit 25.1(L) 35.0 - 47.0 % 04/08/2025 6:07 AM [facility] Red Blood Cell Count 3.30(L) 4.00 - 5.40 Mil/uL 04/08/2025 6:07 AM [facility] MCV 76(L) 80 - 100 fL 04/08/2025 6:07 AM [facility] MCH 24.2(L) 26.0 - 34.0 pg 04/08/2025 6:07 AM [facility] MCHC 31.9 30.0 - 36.0 g/dL 04/08/2025 6:07 AM [facility] RDW 15.9(H) 11.5 - 14.5 % 04/08/2025 6:07 AM [facility] MPV 9.6 7.5 - 12.5 fL 04/08/2025 6:07 AM [facility] Blood Blood specimen / Unknown 04/08/2025 5:30 AM EDT 04/08/2025 5:54 AM EDT Db Lynn MD LAB BLOOD ORDERABLES Nurys l Result [address] [address], [address] [address] * XR Chest 1 view-Portable (04/07/2025 7:47 PM EDT) Anatomical Region Laterality Modality Chest Computed Radiogr aphy 04/07/2025 6:42 PM EDT Impressions 04/08/2025 5:12 AM EDT 1. Right IJ CVC projects over the cavoatrial junction. No postprocedural pneumothorax. 2. Subsegmental atelectasis in the right lung base. 3. Possible trace right pleural effusion. Interpreted by: Emilee Casas MD Slat Basket Maker Machine I personally reviewed the images and the [...] pleural effusion. Interpreted by: Emilee Casas MD Slat Basket Maker Machine I personally reviewed the images and the resident's preliminary report and AGREE with the report as it is now presented (RADPAL1). Ham Whitehead MD IMG DIAGNOSTIC IMAGING ORD ERABLES Final Result * (ABNORMAL) Tissue Culture (aerobic, anaerobic + Gram stain) (04/07/2025 3:47 PM EDT) Gram stain suggestive of Many neutrophils Red blood cells Gram positive cocci 04/07/2025 10:06 PM EDT [facility] Culture Methicillin Resistant Staph aureus (MRSA)(A) 04/14/2025 9:39 AM EDT [facility] Culture No anaerobes isolated after 7 days 04/14/2025 9:39 AM EDT [facility] Tissue (Arm, Upper right) [...] Comment:Trimeth/Sulf a susceptibility performed by disk diffusion. us Db Lynn MD MICROBIOLOGY - GENERAL OR DERABLES Final Result [facility] [address] [place] [address], * (ABNORMAL) Aerobic culture (Gram stain included) (04/07/2025 3:02 PM EDT) Gram stain suggestive of Many neutrophils Few squamous cells Red blood cells Gram positive cocci 04/07/2025 5:53 PM EDT [facility] Culture Methicillin Resistant Staph aureus (MRSA) Susceptibility of the same isolate identification, from the same apparent body site is only performed once per 5 calendar days. See susceptibilities reported on specimen collected 04/07/2025 (A) 04/09/2025 1:12 PM EDT [facility] Aspirate, Abscess (Arm, Upper right) 04/07/2025 3:02 PM EDT Db Lynn MD MICROBIOLOGY - GENERAL OR DERABLES Final Result Performing Organization Address City/[facility]/ZIP Co de Phone Number [facility] [address] [place] [place] [address], [facility] [address] [place] [address] * Anaerobic Culture (04/07/2025 3:02 PM EDT) Culture No anaerobes isolated after 7 days 04/14/2025 9:39 AM EDT [facility] Aspirate, Abscess (Arm, Upper right) 04/07/2025 3:02 PM EDT Db Lynn MD MICROBIOLOGY - GENERAL OR DERABLES Final Result Performing Organization Address [facility]/ZIP Co de Phone Number [facility] [address] [place] [address], * (ABNORMAL) POCT , Urine (04/07/2025 2:14 PM EDT) Preg Test, Ur Negative Negative Lot Number [id number] Manager Of Case Management Pass Pass Urine 04/07/2025 2:14 PM EDT Db Lynn MD POINT OF CARE TEST [...] lower extremity appear normal us Keyana GARRETT IMWilver MRI ORDERABLES Final Re sult * MRI [...] ECG 12 lead (04/07/2025 10:00 AM EDT) Pathologist [facility] Ventricular rate 95 BPM EKG [facility] Atrial rate 95 BPM EKG [facility] P-[facility] interval 146 [facility] QRS duration 92 ms EKG [facility] Q-T interval 340 ms [facility] QTC calculation (Bazett) 428 ms G [facility] P axis 20 degrees EKG [facility] R axis 26 degrees EKG [facility] T axis 36 degrees [facility] 04/07/2025 10:0 0 AM EDT Narrative EKG [facility] - 04/07/2025 11:59 AM EDT Normal sinus rhythm Normal ECG No previous ECGs available Confirmed by MD Stauffer Eric ([id number]) on 04/07/2025 11:58:59 AM Procedure Note Ki Stauffer MD - 04/07/2025 Normal sinus rhythm Normal ECG No previous ECGs available Confirmed by MD Stauffer Eric ([id number]) on 04/07/2025 11:58:59 AM us Bhavin Parks MD ECG ORDERABLES Final R [facility] CT Upper extremity with contrast-Right (04/07/2025 [...] technique DLP: 1068 mGy-cm FINDINGS The large yiyiw-if-ehwn and positioning limits evaluation. Subcutaneous soft tissues: [...] technique DLP: 1068 mGy-cm FINDINGS The large mbgoh-ag-qcwl and positioning limits evaluation. Subcutaneous soft tissues: [...] lower lobe consolidation and right pleural effusion. [facility] Myriam De La Fuente PA-C [facility] CT ORDERABLES Final Result * (ABNORMAL) Aerobic culture (Gram stain included) (04/07/2025 1:17 AM EDT) Gram stain suggestive of Few neutrophils Many squamous cells Red blood cells No organisms seen 04/07/2025 2:41 AM EDT [facility] Culture Methicillin Resistant Staph aureus (MRSA)(A) 04/11/2025 10:08 AM T [facility] Swab, Wound Right elbow [...] MICROBIOLOGY - GENERAL ORDE BENNETT Final Result [facility] [address] [place] [address], [facility] [address] [place] [address] documented in this encounter Visit Diagnoses Diagnosis [...] drug abuse, unspecified Difficult intravenous access ADHD Abscess of arm, right documented in this encounter Admitting Diagnoses Diagnosis [...] Mon04/11/25 at 1330, All antimicrobials used at [facility] require an indication. Please complete the following [...] (after last modification) on Mon04/13/25 at 0900 Given 04/14/2025 9:34 AM EDT [...] use: Methadone Maintenance, Verify methadone clinic name: [facility] [place], Confirmation of maintenance dose: 130mg daily, Verify [...] to manage vancomycin therapy according to the [facility] protocol. When therapy is no longer needed, the provider must discontinue the protocol and medication order., Previous therapy: Yes (> 1 dose given; continuation from outside facility, outpatient infusion, or current admission), Reason for Therapy: Bacterial Infection Documented, Type of Therapy: Continued from MEASUREMENT AND VERIFICATION ENGINEER, Indication: Bacteremia, Other, Specify: NSI vancomycin (VANCOCIN) 1,250 mg in sodium chloride (NS) 0.9 % 250 mL IVPB-WTD 1,250 mg, Intravenous, Administer over 90 Minutes, Every 12 hours, First dose on 04/12/25 at 0130, All antimicrobials used at [facility] require an indication. Please complete the following documentation. Bacterial Infection Documented, Type of Therapy: Continued from MEASUREMENT AND VERIFICATION ENGINEER, Indication: Bacteremia, Other, Specify: NSI New Bag 04/14/2025 2:34 PM EDT 1,250 mg 166.7 mL/hr documented in this encounter Active and [...] Comment: cumulative overdose)1232 (Given - Provider: Mandie Carranza, ANMOL)1741 (Not Given - Provider: Mandie Carranza, ANMOL - Reason: Patient/family refused) acetaminophen (TYLENOL) tablet 975 mg 975 mg, Oral, Every 6 hours scheduled, First dose on 04/13/25 at 0000 0011 (Given - Provider: Patrick Loomis RN)0614 (Given - Provider: Patrick Loomis RN)1155 (Given - Provider: Mandie Carranza RN)1531 (AUG Hold - Provider: Automatic Transfer Provider - Reason: Unreviewed Transfer Orders)1634 (AUG Unhold - Provider: Alanis Franco MD)1712 (Given - Provider: Myrna Ruiz, ANMOL) 0046 (Given - Provider: Dayana Adkins RN)0934 (Given - Provider: Ophelia Soto, ANMOL)1645 (Given - Provider: Ophelia Soto, RN)2130 (Due - Provider: Ophelia Soto, ANMOL) baclofen (LIORESAL) tablet 10 mg (CANCELED) 10 mg, Feeding Tube, Every 8 hours scheduled, First dose (after last modification) on Mon04/09/25 at 0600 0857 (Given - Provider: Mandie Carranza, ANMOL)1547 (Given - Provider: Mandie Carranza RN) baclofen (LIORESAL) tablet 10 mg 10 mg, Oral, Every 8 hours scheduled, First dose (after last modification) on Mon04/13/25 at 0000 0011 (Given - Provider: Patrick Loomis RN)0852 (Given - Provider: Mandie Carranza RN)1531 (AUG Hold - Provider: Automatic Transfer Provider - Reason: Unreviewed Transfer Orders)1600 (Not Given - Provider: Myrna Ruiz RN - Reason: See Provider Order)1634 (AUG Unhold - Provider: Alanis Franco MD) 0046 (Given - Provider: Dayana Adkins RN)0933 (Given - Provider: Ophelia Soto, ANMOL)1645 (Given - Provider: Ophelia Soto RN) chlorhexidine gluconate 2 % wipes - daily CHG application Topical, Daily, First dose on Mon04/08/25 at 0900, For daily use in patients with Urethral Catheter, Central Line, Jara, or Port-a-Cath. Each pack = 6 wipes. Dose = 1 each. 2200 (Given - Provider: Patrick Loomis RN) 1531 (AUG Hold - Provider: Automatic Transfer Provider - Reason: Unreviewed Transfer Orders)1634 (MAR Unhold - Provider: Alanis Franco MD)2128 (Given - Provider: Dayana Adkins, ANMOL) 2300 (Due - Provider: Ninfa Javed RN) clindamycin (CLEOCIN) IVPB 900 mg in 50 mL D5W (premix) 900 mg, Intravenous, Administer over 30 Minutes, Every 8 hours, First dose on Mon04/11/25 at 1330, All antimicrobials used at [facility] require an indication. Please complete the following documentation. Bacterial Infection Documented, Type of Therapy: New Therapy, Indication: Other, Specify: NSI 0519 (New Bag - Provider: Bianca Corcoran RN)1234 (New Bag - Provider: Mandie Carranza RN)2041 (New Bag - Provider: Patrick Loomis RN) 0516 (New Bag - Provider: Patrick Loomis RN)1240 (New Bag - Provider: Mandie Carranza RN)1531 (MAR Hold - Provider: Automatic Transfer Provider - Reason: Unreviewed Transfer Orders)1634 (MAR Unhold - Provider: Alanis Franco MD)2128 (New Bag - Provider: Dayana Adkins RN)2158 (Stopped - Provider: Dayana Adkins RN) 0610 (New Bag - Provider: Dayana Adkins RN)0640 (Stopped - Provider: Dayana Adkins RN)1321 (New Bag - Provider: Ophelia Soto, ANMOL)1351 (Stopped - Provider: Ophelia Soto RN)2130 (Due) cloNIDine (CATAPRES) tablet 0.1 mg (CANCELED) 0.1 mg, Feeding Tube, 2 times daily, First dose (after last modification) on Mon04/11/25 at 2100, Hold for SBP less than 100 mmHg. Notify provider if a dose is held. 857 (Given - Provider: Mandie Carranza RN) cloNIDine (CATAPRES) tablet 0.1 mg 0.1 mg, Oral, 2 times daily, First dose (after last modification) on Mon04/12/25 at 2100, Hold for SBP less than 100 mmHg. Notify provider if a dose is held. 2036 (Given - Provider: Patrick Loomis RN) 0903 (Given - Provider: Mandie Carranza, ANMOL)1531 (AUG Hold - Provider: Automatic Transfer Provider - Reason: Unreviewed Transfer Orders)1634 (MAR Unhold - Provider: Alanis Franco MD)2128 (Given - Provider: Dayana Adkins, ANMOL) 0934 (Given - Provider: Ophelia Soto, ANMOL)2100 (Due) folic acid (FOLVITE) tablet 1 mg (CANCELED) 1 mg, Feeding Tube, Daily, First dose on Mon04/11/25 at 0900 0858 (Given - Provider: Mandie Carranza, ANMOL) folic acid (FOLVITE) tablet 1 mg 1 mg, Oral, Daily, First dose (after last modification) on 04/13/25 at 0900 0859 (Given - Provider: Mandie Carranza, ANMOL - Comment: barcode damaged while crushing med, verified with another RN)1531 (AUG Hold - Provider: Automatic Transfer Provider - Reason: Unreviewed Transfer Orders)1634 ([facility] Unhold - Provider: Alanis Franco MD) 0934 (Given - Provider: Ophelia Soto, ANMOL) gabapentin (NEURONTIN) capsule 300 mg (CANCELED) 300 mg, Feeding Tube, Every 8 hours scheduled, First dose (after last modification) on Mon04/09/25 at 0600 0857 (Given - Provider: Mandie Carranza, ANMOL)1547 (Given - Provider: Mandie Carranza, ANMOL) gabapentin (NEURONTIN) capsule 300 mg 300 mg, Oral, Every 8 hours scheduled, First dose (after last modification) on 04/13/25 at 0000 0011 (Given - Provider: Patrick Loomis, ANMOL)0852 (Given - Provider: Mandie Carranza, ANMOL)1531 (AUG Hold - Provider: Automatic Transfer Provider - Reason: Unreviewed Transfer Orders)1600 (Not Given - Provider: Myrna Ruiz RN - Reason: See Provider Order)1634 ([facility] Unhold - Provider: Alanis Franco MD) 0046 (Given - Provider: Dayana Adkins, ANMOL)0935 (Given - Provider: Ophelia Soto RN)1645 (Given [...] Soto, ANMOL)1645 (Given - Provider: Ophelia Soto RN) hydrALAZINE (APRESOLINE) injection 10 mg (COMPLETED) 10 [...] parameters)1634 (MAR Unhold - Provider: Alanis Franco MD)202 (Not Given - Provider: Dayana Adkins RN [...] Mandie Carranza RN)1742 (Given - Provider: Mandie Carranza RN) 0023 (Given - Provider: Patrick Loomis RN)0614 (Given - Provider: Patrick Loomis RN)1156 (Given - Provider: Mandie Carranza RN)1531 (MAR Hold - Provider: Automatic Transfer Provider - Reason: Unreviewed Transfer Orders)1634 (MAR Unhold - Provider: Alanis Franco MD)1720 (Given - Provider: Myrna Ruiz RN) 0046 (Given - Provider: Dayana Adkins RN)0610 (Given - Provider: Dayana Adkins, ANMOL)1321 (Given - Provider: Ophelia Soto, RN)1810 (Given - Provider: Ophelia Soto, ANMOL) methadone (DOLOPHINE) tablet 45 mg (CANCELED) 45 mg, Feeding Tube, Every 8 hours scheduled, First dose (after last modification) on 04/12/25 at 1200, For 16 doses, Dose should be verified prior to first administration for patients attending methadone treatment [facility]., Methadone reason for use: Methadone Maintenance, Verify methadone clinic name: [facility], Confirmation of maintenance dose: 130mg daily, Verify patient name: Molly Beasley, All potent long acting opioid patients require type of therapy. Modification of therapy 1234 (Given - Provider: Mandie Carranza RN) methadone (DOLOPHINE) tablet 45 mg 45 mg, Oral, Every 8 hours scheduled, First dose (after last modification) on 04/12/25 at 2000, For 15 doses, Dose should be verified prior to first administration for patients attending methadone treatment [facility]., Methadone reason for use: Methadone Maintenance, Verify methadone clinic name: [facility], Confirmation of maintenance dose: 130mg daily, Verify patient name: Molly Beasley, All potent long acting opioid patients require type of therapy. Modification of therapy 2035 (Given - Provider: Patrick Loomis RN) 0407 (Given - Provider: Patrick Loomis RN)1155 (Given - Provider: Mandie Carranza RN)1531 ([facility] Hold - Provider: Automatic Transfer Provider - Reason: Unreviewed Transfer Orders)1634 (MAR Unhold - Provider: Alanis Franco MD)2128 (Given - Provider: Dayana Adkins, ANMOL) 0610 (Given - Provider: Dayana Adkins, ANMOL)1321 (Given - Provider: Ophelia Soto, ANMOL)1999 (Due) methadone (DOLOPHINE) tablet 60 mg (CANCELED) 60 mg, Feeding Tube, Every 8 hours scheduled, First dose (after last modification) on Mon04/11/25 at 1200, For 19 doses, Dose should be verified prior to first administration for patients attending methadone treatment center., Methadone reason for use: Treatment of Pain, All potent long acting opioid patients require type of therapy. Modification of therapy 0355 (Given - Provider: Bianca Corcoran RN) multivitamin tablet 1 tablet 1 tablet, Oral, Daily, First dose on Mon04/13/25 at 0900 0852 (Given - Provider: Mandie Carranza RN)153 ([facility] Hold - Provider: Automatic Transfer Provider - Reason: Unreviewed Transfer Orders)163 ([facility] Unhold - Provider: Alanis Franco MD) 0934 [...] No 0852 (Given - Provider: Mandie Carranza RN)153 ([facility] Hold - Provider: Automatic Transfer Provider - Reason: Unreviewed Transfer Orders)163 ([facility] Unhold - Provider: Alanis Franco MD) 0934 [...] of fluids. 0852 (Given - Provider: Mandie Carranza RN)1531 (MAR Hold - Provider: Automatic Transfer Provider - Reason: Unreviewed Transfer Orders)1634 ([facility] Unhold - Provider: Alanis Franco MD) 0935 (Not Given - Provider: Ophelia Soto RN - Reason: Patient/family refused) potassium chloride (KLOR-CON [...] Adkins RN)0934 (Given - Provider: Ophelia Soto RN) potassium chloride IVPB 10 mEq in [...] mEq/hr 0155 (New Bag - Provider: Patrick Loomis, ANMOL) potassium chloride IVPB 20 mEq in 100 mL SW premix (central line) (COMPLETED)(Linked Group 3) 20 mEq, Intravenous, at 100 mL/hr, Once, On Mon04/13/25 at 0230, For 1 dose, FOR CENTRAL [...] Ophelia Soto RN)1320 (Given - Provider: Ophelia Soto RN)1645 (Given - Provider: Ophelia Soto RN)2100 (Due) [...] diarrhea 0857 (Given - Provider: Mandie Carranza RN)2036 (Given - Provider: Patrick Loomis, ANMOL) sodium phosphate IVPB 30 mmol in 250 mL NS (central line) (COMPLETED) 30 mmol, Intravenous, at 43.3 mL/hr, Once, On 04/13/25 at 0130, For 1 dose, FOR CENTRAL LINE ADMINISTRATION ONLY 0404 (New Bag - Provider: Patrick Loomis RN - Comment: not available) thiamine mononitrate (VITAMIN B-1) tablet 100 mg 100 mg, Oral, Daily, First dose on 04/13/25 at 0900 0852 (Given - Provider: Mandie Carranza RN)1531 (AUG Hold - Provider: Automatic Transfer Provider - Reason: Unreviewed Transfer Orders)1634 ([facility] Unhold - Provider: Alanis Franco MD) 0934 (Given - Provider: Ophelia Soto RN) thiamine mononitrate (VITAMIN B-1) tablet 200 mg (CANCELED) 200 mg, Feeding Tube, Daily, First dose on Mon04/11/25 at 0900 0858 (Given - Provider: Mandie Carranza RN) vancomycin (VANCOCIN) IV dosing PER PHARMACY PROTOCOL This is place-fiore medication for pharmacy to manage vancomycin therapy according to the [facility] protocol. When therapy is no longer needed, the provider must discontinue the protocol and medication order., Previous therapy: Yes (> 1 dose given; continuation from outside facility, outpatient infusion, or current admission), Reason for Therapy: Bacterial Infection Documented, Type of Therapy: Continued from [facility], Indication: Bacteremia, Other, Specify: NSI 1531 (AUG Hold - Provider: Automatic Transfer Provider - Reason: Unreviewed Transfer Orders)1634 ([facility] Unhold - Provider: Alanis Franco MD) vancomycin (VANCOCIN) 1,250 mg in sodium chloride (NS) 0.9 % 250 mL IVPB-WTD(Linked Group 4) 1,250 mg, Intravenous, Administer over 90 Minutes, Every 12 hours, First dose on 04/12/25 at 0130, All antimicrobials used at [facility] require an indication. Please complete the following documentation. Bacterial Infection Documented, Type of Therapy: Continued from [facility], Indication: Bacteremia, Other, Specify: NSI 0226 (New Bag - Provider: Bianca Corcoran RN)1234 (New Bag - Provider: Mandie Carranza RN) 0031 (New Bag - Provider: Patrick Loomis RN)1240 (New Bag - Provider: Mandie Carranza, ANMOL)1531 (MAR Hold - Provider: Automatic Transfer Provider - Reason: Unreviewed Transfer Orders)1634 ([facility] Unhold - Provider: Aalnis Franco MD) 0046 (New Bag - Provider: Dayana Adkins, ANMOL)0216 (Stopped - Provider: Dayana Adkins RN)1434 (New Bag - Provider: Ophelia Soto, RN)1604 (Stopped - Provider: Ophelia Soto, RN) Continuous Medication Order 04/12/2025 04/13/2025 04/14/2025 [...] Carranza RN)1200 (Rate/Dose Verify - Provider: Mandie Carranza, ANMOL)1300 (Rate/Dose Verify - Provider: Mandie Carranza, ANMOL)1400 (Rate/Dose Verify - Provider: Mandie Carranza, ANMOL)1500 (Rate/Dose Verify - Provider: Mandie Carranza, ANMOL)1542 (New Bag - Provider: Mandie Carranza RN)1600 [...] RN) 0000 (Rate/Dose Verify - Provider: Patrick Loomis RN)0105 (Stopped - Provider: Patrick Loomis RN) [...] tube changed)0700 (Rate/Dose Verify - Provider: Patrick Loomsi RN)0800 (Rate/Dose Verify - Provider: Mandie Carranza RN)0900 (Rate/Dose Verify - Provider: Mandie Carranza, ANMOL)1000 (Rate/Dose Verify - Provider: Mandie Carranza, ANMOL)1100 (Rate/Dose Verify - Provider: Mandie Carranza RN)1200 (Rate/Dose Verify - Provider: Mandie Carranza, RN)1300 (Rate/Dose Verify - Provider: Mandie Carranza, ANMOL)1400 (Rate/Dose Verify - Provider: Mandie Carranza, ANMOL)1531 (MAR Hold - Provider: Automatic Transfer Provider - Reason: Unreviewed Transfer Orders)1634 ([facility] Unhold - Provider: Alanis Franco MD) 1321 (Stopped - Provider: Ophelia Soto, ANMOL) HYDROmorphone (DILAUDID) 1 mg/mL SOCIAL INSURANCE ANALYST syringe (premix) (CANCELED) Intravenous, SOCIAL INSURANCE ANALYST dose (mg): 0.3, Lockout interval: 10 min, Continuous rate (mg/hr): 0, Max limit in four hours (mg): 7.2, Loading dose (mg): 0 1118 (New Syringe/Cartridge - Provider: Mandie Carranza RN)1124 (Canceled Entry - Provider: Mandie Carranza RN) HYDROmorphone (DILAUDID) 1 mg/mL SOCIAL INSURANCE ANALYST syringe (premix) (CANCELED) Intravenous, SOCIAL INSURANCE ANALYST dose (mg): 0.2, Lockout interval: 10 min, Continuous rate (mg/hr): 0, Max limit in four hours (mg): 4.8, Loading dose (mg): 0 1541 (New Syringe/Cartridge - Provider: Mandie Carranza RN)1918 (Handoff - Provider: Mandie Carranza RN) 0657 (Handoff - Provider: Patrick Loomis RN)1531 ([facility] Hold - Provider: Automatic Transfer Provider - Reason: Unreviewed Transfer Orders)1539 (Handoff - Provider: Myrna Ruiz RN)1634 ([facility] Unhold - Provider: lAanis Franco MD)2007 (Handoff - Provider: Dayana Adkins RN) 0718 (Handoff - Provider: Ophelia Soto, ANMOL)1321 (Stopped - Provider: Ophelia Soto, ANMOL) ketamine 1000 mg in 100 mL NS [...] or Duoneb Indication: Bronchospasm, Other (use comment) 153 ([facility] Hold - Provider: Automatic Transfer Provider - Reason: Unreviewed Transfer Orders)1634 ([facility] Unhold - Provider: Alanis Franco MD) bisacodyl (DULCOLAX) suppository 10 mg 10 mg, Rectal, Daily PRN, constipation, if no bowel movement by day 2, Starting on Mon04/06/25 at 2229 153 ([facility] Hold - Provider: Automatic Transfer Provider - Reason: Unreviewed Transfer Orders)1634 ([facility] Unhold - Provider: Alanis Franco MD) dextrose 50 % solution 12.5 g(Linked Group 5) 12.5 g, Intravenous, Every 15 min PRN, low blood sugar, between 50 and 69 mg/dL, Starting on Mon04/09/25 at 0403, For patient with IV access who is NPO or unable to swallow. See Hypoglycemia Management guideline. 153 ([facility] Hold - Provider: Automatic Transfer Provider - Reason: Unreviewed Transfer Orders)1634 ([facility] Unhold - Provider: Alanis Franco MD) dextrose 50 % solution 25 g(Linked Group 5) 25 g, Intravenous, Every 15 min PRN, low blood sugar, less than 50 mg/dL, Starting on Mon04/09/25 at 0403, For patient with IV access who is NPO or unable to swallow. See Hypoglycemia Management guideline. 153 ([facility] Hold - Provider: Automatic Transfer Provider - Reason: Unreviewed Transfer Orders)1634 ([facility] Unhold - Provider: Alanis Franco MD) glucagon [...] with 1 mL sterile water for injection. 1531 ([facility] Hold - Provider: Automatic Transfer Provider - Reason: Unreviewed Transfer Orders)1634 ([facility] Unhold - Provider: Alanis Franco MD) glucose [...] 40 % = 15 grams of glucose. 1531 ([facility] Hold - Provider: Automatic Transfer Provider - Reason: Unreviewed Transfer Orders)1634 ([facility] Unhold - Provider: Alanis Franco MD) glucose [...] 40 % = 15 grams of glucose. 1531 ([facility] Hold - Provider: Automatic Transfer Provider - Reason: Unreviewed Transfer Orders)1634 ([facility] Unhold - Provider: Alanis Franco MD) HYDROmorphone (DILAUDID) injection 1 mg 1 mg, Intravenous, Daily PRN, DURING DRESSING CHANGES ONLY, Starting on Mon04/13/25 at 1420, For 5 days, For IV Push, administer over 2 to 3 minutes. 1531 ([facility] Hold - Provider: Automatic Transfer Provider - Reason: Unreviewed Transfer Orders)1634 ([facility] Unhold - Provider: Alanis Franco MD) 0946 (Given - Provider: Ophelia Soto RN - Comment: For dressing change) HYDROmorphone (DILAUDID) tablet 4 mg(Linked Group 6) 4 mg, Oral, Every 3 hours PRN, moderate to moderately severe pain 4-6, Starting on Mon04/14/25 at 1035, For 7 days 1810 (Given - Provider: Ophelia Soto, ANMOL) HYDROmorphone (DILAUDID) tablet 6 mg(Linked Group 6) 6 mg, Oral, Every 3 hours PRN, severe to excruciating pain 7-10, Starting on 04/14/25 at 1035, For 7 days 1810 (See Alternativ e - Provider: Ophelia Soto [...] Transfer Provider - Reason: Unreviewed Transfer Orders)1634 ([facility] Unhold - Provider: Alanis Franco MD) naloxone (NARCAN) 0.4 mg/mL injection 0.4 mg 0.4 mg, Intravenous, Every 5 min PRN, opioid reversal, respiratory depression, Starting on 04/12/25 at 0919, If respiratory rate is less than 8 breaths/minute or patient is difficult to arouse. Stop all narcotics and contact provider. 1531 (AUG Hold - Provider: Automatic Transfer Provider - Reason: Unreviewed Transfer Orders)1634 ([facility] Unhold - Provider: Alanis Franco MD) ondansetron (ZOFRAN) injection 4 mg 4 mg, Intravenous, Every 6 hours PRN, nausea, vomiting, Starting on 04/07/25 at 1811 1531 ([facility] Hold - Provider: Automatic Transfer Provider - Reason: Unreviewed Transfer Orders)1634 ([facility] Unhold - Provider: Alanis Franco MD) Linked [...] For 1 dose, All antimicrobials used at [facility] require an indication. Please complete the following documentation. Bacterial Infection Documented, Type of Therapy: Continued from [facility], Indication: Bacteremia, Other, Specify: NSI Followed by vancomycin (VANCOCIN) 1,250 mg in sodium chloride (NS) 0.9 % 250 mL IVPB-WTDJump to med 1,250 mg, Intravenous, Administer over 90 Minutes, Every 12 hours, First dose on 04/12/25 at 0130, All antimicrobials used at [facility] require an indication. Please complete the following documentation. Bacterial Infection Documented, Type of Therapy: Continued from [facility] VERIFICATION ENGINEER, Indication: Bacteremia, Other, Specify: NSI Group 5: [...] documented as of this encounter Care Teams Dental Appliance Fixer Relationship Specialty Start Date End Date System, Provider Not In PCP - General 04/09/25 documented as of this encounter
--- OUTSIDE RECORDS SUMMARY | 2025-04-10 21:56 | XMS_ITS | Encounter Summary ---
Author Organization [facility] Address [address] [place] [address] Care Team Providers Care Market Research Interviewer Name Role Phone System, Provider Not In Primary Care Provider Un available Reason for Visit * Auth/Cert (Routine) Specialty Diagnoses / Procedures Referred By Reese ta Referred To Contact Diagnoses Hand abscess Abscess Procedures n/a Referral ID Status Reason Start Date Expiration Date Visits Re quested Visits Authorized [id number] 1 1 Encounter Details Date Type Department Care Team (Late st Contact Info) Description 04/10/2025 9:56 PM EDT Anesthesia Event [facility] [address] [place] [phone] Jacque Lee MD [address] [facility] [address] [place] [address] Jacquie Hilario PA-C [address] [place] [address] [address] [place] [address] Anesthesia Record Procedure Summary Procedure Name Responsible Anesthesiologist Anesthesia Start Time Anesthesia Stop Time DEBRIDEMENT WOUND RIGHT UPPER EXTREMITY, LEFT UPPER EXTREMITY, RIGHT CHEST WALL (Bilateral) Jacque Lee MD 04/10/25215504/11/25 0029 Events Date Time Event Comment 04/10/20252118 AN Equip Check 2155 An Start 2155 An Start Data 2201 An Induction 4 Anesthesia Ready 04/11/2025 0013 AN Stop Data 0029 Handoff to Receiving I compl eted my handoff to the receiving clinician during which we: 1. Identified the patient 2. Identified the responsible provider 3. Reviewed pertinent medical history 4. Discussed the surgical or procedural course 5. Reviewed intraoperative management and issues during anesthesia 6. Set expectations for the post-procedure period 7. Allowed opportunity for questions and acknowledgement of understanding. 0029 An Stop 0051 Meds Name Total fentaNYL 50 mcg/mL injection 200 mcg midazolam 1 mg/mL injection 2 mg rocuronium 10 mg/mL injection 80 mg HYDROmorphone 2 mg/mL injection 2 mg sugammadex 200 mg/2 mL injection 200 mg HYDROmorphone (DILAUDID) IV infusion 50 mg in 50 mL NS (1 mg/mL) (premix) 2.55 mg ketamine 1000 mg in 100 mL NS infusion ( 10 mg/mL) (premix) 57.53 mg propofol (diPRIvan) 1000 MG/100ML inject ion 338.28 mg LR 0 mL * Agents Name O2 N2O Air [...] 04/09/25 1644 by Claudia Del Rio RN Drain/Device Site 04/10/25; 2338; Righ t; distal; chest; [place]; 1/2 04/10/25 2338 by Gisela Givens RN Incision (Adult, Obstetrics, Pediatrics) 04/11/25; 0011; Right; other (see comments); packed with kerlix , total of 5 kerlix tunnelling to right side of the chest / abdominal pad, kerlix, omid wrap 04/11/2510 by Gisela Givens RN Intentionally Retained Foreign Objects 04/08/25; 2001; MD Cunningham and MD Solorio; Other (Comment) (R upper arm); Upper; 2 betadine soak kerlix tied together and 1 dry kerlix; 04/10/25; 2219; Removed in OR by Shaila Solorio MD 04/08/252001 by Kari Zabala RN 04/10/252219 by Claudia Del Rio RN Urethral Catheter (Adult) 04/08/25; 2017; need for frequent and accurate urine output measurements; indwelling double lumen catheter; latex; 16 Fr; inserted at this facility (inserted by Chey Pastor RN); 1; 10 mL balloon size; 10 mL balloon inflation volume; other (see comments) (pt under general anesthesia); drainage bag to dependent drainage; 04/12/25; 1001 04/08/252017 by Gisela Pastor RN 04/12/25 100 by Mandie Carranza RN Airway-Oral/[employer] 04/08/25; 2022 (crea elaine via procedure documentation); 7; endotracheal tube; NON-SUBGLOTTIC ETT; 04/12/25; 0504/08/252022 by Sharron Marcial CRNA 04/12/25524 by Joe Campbell RRT NG/OG 04/08/25; 2100; nasogastric; left nostril; 04/12/25; 1747 04/08/25 2100 by Shreyas Vargas RN 04/12/25 174 by Mandie Carranza RN NG/OG 04/11/25; small diameter, nasogastric; right nostril; jejunum; feeding administration, medication administration; 04/12/25; 1035 04/11/25 0000 by Bianca Corcoran RN 04/12/25 1035 by Mandie Carranza RN documented in this encounter Social History Tobacco Use Types Packs/Day Years Used Date Smoking Tobacco: Every Day Cigarettes Passive Smoke Exposure: Current Smokeless Tobacco: Current [facility] Utilities Answer Date Recorded In the past 12 months has th e [employer], [employer], oil, or water [employer] threatened to shut off services in your [...] any time in the past 12 m [facility], were you homeless or living in a assisted (including now)? No 04/08/2025 Comments Unknown Sex [...] - Temperature - - Respiratory Rate 1 04/11/2025 12:13 AM EDT Oxygen Saturation 99% 04/11/2025 12:12 AM EDT Inhaled Oxygen Concentration - - Weight - - Height - - Body Mass Index - - documented in this encounter OR Notes * Anesthesia Postprocedure Evaluation - Jacque Lee MD - 04/11/2025 12:52 AM EDT Department of Anesthesiology Post-Anesthesia Evaluation Patient Name: Molly Beasley : 1990 Admission Date: 04/06/2025 Attending Provider: Lucho Donaldson MD Date of Service: 04/11/2025 Procedure Summary Date: 04/10/25 Room / Location: [facility] 8 / Main OR Anesthesia Start: 2155 Anesthesia Stop: 04/11/2528 Procedure: DEBRIDEMENT WOUND RIGHT UPPER EXTREMITY, LEFT UPPER EXTREMITY, RIGHT CHEST WALL (Bilateral) Diagnosis: Abscess of arm, right (Abscess of arm, right [L02.413]) Surgeons: Shaila Solorio MD Responsible Provider: Jacque Lee MD Anesthesia Type: general ASA Status: 4 - Emergent Anesthesia Type: general There were no known notable events for this encounter. Last vitals Vitals Value Taken Time BP 126/59 04/11/25 00:46 Temp 34.8 ??C (94.64 ??F) 04/11/25 00:52 Pulse 69 04/11/25 00:52 Resp 13 04/11/25 00:52 SpO2 100 % 04/11/25 00:52 Vitals shown include unfiled device data. Evaluation Vital signs are in the patient's normal range: Yes Respiratory function stable; airway patent: Yes Cardiovascular function and hydration status are stable: Yes Mental status recovered; patient participates in evaluation: No -Patient unable to participate; sedated/ventilated Pain control satisfactory: Yes Nausea and vomiting control is satisfactory: Yes This is an OB patient: No Quality Metrics -Multimodal analgesia pain management approach -Opioid medication given during intra or post-procedure care Jacque Lee MD 04/11/2025 12:52 AM * Anesthesia Preprocedure Evaluation - Jacque Lee MD - 04/10/2025 6:21 AM EDT Department of Anesthesiology Pre-Procedure Evaluation Patient Name: Molly Beasley : 1990 Admission Date: 04/06/2025 Attending Provider: Lucho Donaldson MD Date of Service: 04/10/2025 Scheduled Procedure: DEBRIDEMENT WOUND RIGHT UPPER EXTREMITY, LEFT UPPER EXTREMITY, RIGHT CHEST WALL, Bilateral Pre-operative Diagnosis: Abscess of arm, right [L02.413] [...] IV drug use who was transferred to [facility] yesterday for concern for right upper [...] the wrist. She is subsequently transferred to [facility] for further evaluation. S/p I&D LUE 04/07/25; There was evacuation of about 1L of purulent fluid. 04/08/25: Debridement of RUE abscess extending to R shoulder and superficial tracts toward R chest/pectoralis major, washout, betadine soaked kerlix packing 04/09/25: repeat I&D Physical Exam Airway Mallampati II TM distance >3 FB Neck ROM: full Cardiovascular - cardiovascular exam normal Pulmonary - pulmonary exam normal Abdominal Additional findings - intubated No past medical history on file. Past Surgical History: Procedure Laterality Date INCISION & DRAINAGE Bilateral 04/07/2025 Procedure: INCISION & DRAINAGE AND DEBRIDEMENT UPPER EXTREMITY; Surgeon: Db Lynn MD; Location: Main OR; Service: General; Laterality: Bilateral; INCISION & DRAINAGE Right 04/08/2025 Procedure: INCISION & DRAINAGE; Surgeon: Galdino Cunningham MD; Location: Main OR; Service: General; Laterality: Right; No family history on file. Tobacco/Alcohol/Drug HX[2] Ht Readings from Last 1 Encounters: 04/06/25 1.58 m (5' 2.21 ) Wt Readings from Last 1 Encounters: 04/10/25 75.2 kg (165 lb 12.6 oz) Body mass index is 30.12 kg/m??. White Blood Cell Count Date Value [...] 04/10/2025 412 150 - 450 Thou/uL Final Sodium Date Value Ref Range Status 04/10/2025 136 136 - 145 mmol/L Final Potassium Date Value Ref Range Status 04/10/2025 4.3 3.4 - 5.3 mmol/L Final CO2 Date Value Ref Range Status 04/10/2025 25 22 - 33 mmol/L Final Chloride Date Value Ref Range Status 04/10/2025 102 98 - 107 mmol/L Final POC Glucose Date Value Ref Range Status 04/10/2025 150 (H) 65 - 99 mg/dL Final Blood Urea Nitrogen (BUN) Date Value Ref Range Status 04/10/2025 9 8 - 21 mg/dL Final Creatinine Date Value Ref Range Status 04/10/2025 0.54 0.40 - 1.10 mg/dL Final Calcium Date Value Ref Range Status 04/10/2025 7.5 (L) 8.7 - 10.5 mg/dL Final ABO/Rh Date Value Ref Range Status 04/09/2025 A POSITIVE Final Lab Results Component Value Date ABORH A POSITIVE 04/09/2025 Recent Results (from the past 8760 hours) [...] Consumption: 0000 Anesthesia Plan ASA Score: ASA 4 - emergent Consent: The anesthetic plan and associated risks was discussed with patient. Anesthesia Plan: general anesthesia Post-Operative Pain Management: Post-operative opioids are intended. Routine Analgesia and Antiemetics : The preliminary anesthesia plan and risks were discussed. The final anesthesia plan will be determined by the responsible anesthesiologist. Attending Note I personally evaluated and examined [...] (LR) infusion Intravenous, Continuous PRN, Starting on Yaima 04/10/25 at 2201, Anesthesia Intra-op New Bag 04/10/2025 10:01 PM EDT fentaNYL 100 MCG/2ML injection Intravenous, As needed, Starting on Yaima 04/10/25 at 2202, Anesthesia Intra-op Given 04/10/2025 10:31 PM EDT 50 mcg HYDROmorphone (DILAUDID) 2 mg/mL injection Intravenous, As needed, Starting on Yaima 04/10/25 at 2209, Anesthesia Intra-op Given 04/10/2025 10:16 PM EDT 1 mg midazolam (VERSED) 1 mg/mL injection Intravenous, As needed, Starting on Yaima 04/10/25 at 2202, Anesthesia Intra-op Given 04/10/2025 10:02 PM EDT 2 mg rocuronium (ZEMURON) 50 mg/5mL injection Intravenous, As needed, Starting on Yaima 04/10/25 at 2208, Anesthesia Intra-op Given 04/10/2025 10:52 PM EDT 40 mg sugammadex (BRIDION) injection Intravenous, As needed, Starting on Mon04/11/25 at 0028, Anesthesia Intra-op Given 04/11/2025 12:28 AM EDT 200 mg documented in this encounter Additional Health Concerns Infection Onset Date Last Indicated Resolved Time MRSA - Increased Transmissio n Risk Comment:Criteria for Increased Transmission Risk: -Wound unable to be covered or with uncontained drainage -Incontinent of urine/stool -Unable to contain respiratory secretions Precautions required until above criteria are resolved. 04/07/2025 04/07/2025 documented as of this encounter Care Teams Market Research Interviewer Relationship Specialty Start Date End Date System, Provider Not In PCP - General 04/09/25 documented as of this encounter
--- OUTSIDE RECORDS SUMMARY | 2025-04-10 22:20 | XMS_ITS | Encounter Summary ---
Author Organization [facility] Address [address] [place] [address] Care Team Providers Care Tax Services Specialist Name Role Phone System, Provider Not In Primary Care Provider Un available Reason for Visit * Auth/Cert (Routine) Specialty Diagnoses / Procedures Referred By Contac t Referred To Contact Diagnoses Hand abscess Abscess Procedures n/a Referral ID Status Reason Start Date Expiration Date Visits Re quested Visits Authorized [id number] 1 1 Encounter Details Date Type Department Care Team (Late st Contact Info) Description 04/10/2025 10:20 PM EDT - 04/11/2025 12:06 AM EDT Surgery [facility] Perioperative Surgical Services [address] [place] [address] Shaila Solorio MD [address] [place] [address] DEBRIDEMENT WOUND RIGHT UPPER EXTREMITY, LEFT UPPER EXTREMITY, RIGHT CHEST WALL Social History Tobacco Use Types Packs/Day Years Used Date Smoking Tobacco: Every Day Cigarettes Passive Smoke Exposure: Current Smokeless Tobacco: Current Tobacco Cessation:Ready to Q uit: No; Counseling Given: Not Answered [facility] Utilities Answer Date Recorded In the past 12 months has [employer], gas, oil, or water company threatened to [...] any time in the past 12 m [facility], were you homeless or [...] Sign Reading Time Taken Comments Blood Pressure 156/67 04/10/2025 10:00 PM EDT Pulse 80 04/10/2025 9:50 PM EDT Temperature 37.2 C (99 F) 04/10/2025 9:00 PM EDT Respiratory Rate 14 04/10/2025 9:00 PM EDT Oxygen Saturation 99% 04/10/2025 9:5 0 PM EDT Inhaled Oxygen Concentration - - Weight 75.2 kg (165 lb 12.6 oz) 04/10/2025 4:30 AM EDT Height 158 cm (5' 2.21 [...] containing alcohol? Never 04/06/2025 8:59 PM EDT Veroinca Gipson RN Q2: How many drinks containing [...] 6 (six) hours around the clock. 04/14/2025 5 albuterol (PROVENTIL) (0.083%) 2.5 mg/3 mL nebulizer solutionIndicatio ns:Abscess of arm, right Take 3 mL (2.5 mg total) by nebulization 4 times daily (every 6 hours) as needed for wheezing or shortness of breath. 04/14/2025 baclofen (LIORESAL) 10 MG tabletIndications :Abscess of arm, right Take 1 tablet (10 mg total) by mouth every 8 (eight) hours around the clock. 04/15/2025 5 bisacodyl (DULCOLAX) 10 MG suppositoryIndica tions:Abscess of arm, right Insert 1 suppository (10 mg total) into the rectum daily as needed for constipation (if no bowel movement by day 2). 04/14/2025 5 clindamycin in D5w (CLEOCIN) 900 MG/50ML IVPBIndications:A [...] from the original note were not included. [facility] ID Progress Note Name: Molly Beasley Age: 34 y.o. Sex: female ASSESSMENT & PLAN Assessment: 34-year-old female with history of active IV drug use, history of xylazine infection, depression, anxiety, transferred to [facility] from OSH on 04/06 for concern of right upper extremity abscess. Patient initially presented to ([place] on 04/02 with redness/swelling of the right upperextremity in the setting of active IV cocaine use, underwent formal I&D on 04/05 of the right antecubital fossa. Repeat imaging of the forearm on 04/06 at OSH demonstrated developing abscess within the biceps muscle with concern for possible necrotizing fasciitis without soft tissue gas. CT of the left forearm demonstrated partially visualized abscess in the antecubital fossa and synovitis inthe wrist. At OSH, 2 /2 blood cultures [...] initiated at OSH on 04/02, transferred to [facility] on 04/06 - 04/09, blood culture [...] presented to OSH on 04/02, transferred to [facility] on 1005 -Today, dressings were changed by surgical team: Pictures reviewed and wound bed appears pink with viable tissue. - Team/rn case manager messaged as difficulty with placement secondary to history of IV drug use and patient is from [place]. After multiple messages through the TT, it was agreed that team will look into transferring patient to [place] to complete the antibiotic Rx and wound [...] pleural effusion. Interpreted by: Emilee Casas MD Website/Blog Editor I personally reviewed the images and the [...] technique DLP: 1068 mGy-cm FINDINGS The large uabjh-oc-edhf and positioning limits evaluation. Subcutaneous soft tissues: [...] not compromised This report was generated using [employer] dictation software. Although every attempt has been made by the provider to proofread this document, occasional misspellings and typographical errors Sign Anisa Perez MD, FIDSA, FACP [facility] Infectious Diseases Available via [employer] (by [email or web address]) 04/14/2025 12:38 PM [1] Current Facility-Administered Medications Medication Dose Route Frequency Provider Last Rate Last Admin acetaminophen (TYLENOL) tablet 975 mg 975 mg Oral Q6H HANNAH Franco MD 975 mg at 04/14/25 0934 albuterol (PROVENTIL) (0.083%) 2.5 mg/3 mL nebulizer solution 2.5 mg 2.5 mg Nebulization Q6H PRN Alanis Franco MD baclofen (LIORESAL) tablet 10 mg 10 mg Oral Q8H HANNAH Franco MD 10 mg at 04/14/25 0933 [...] mg 300 mg Oral Q8H [facility] Alanis Franco MD 300 mg at 04/14/25 0935 heparin (porcine) 5000 unit/mL injection 5,000 Units 5,000 Units Subcutaneous Q8H [facility] Alanis Franco MD 5,000 Units at [...] Units 1-6 Units Subcutaneous Q4H [facility] Alanis Franco MD 1 Units at 04/10/25 0428 ketorolac (TORADOL) injection 15 mg 15 mg Intravenous Q6H [facility] Alanis Franco MD 15 mg at 04/14/25 0610 labetalol (NORMODYNE,TRANDATE) injection 10 mg 10 mg Intravenous Q4H PRN Alanis Franco MD 10 mg at 04/12/25 0307 methadone (DOLOPHINE) tablet 45 mg 45 mg Oral Q8H [facility] Alanis Franco MD 45 mg at [...] PGY-1 04/14/2025 9:13 AM * Ani Brown, DRESSING ROOM ATTENDANT - 04/13/2025 2:21 PM EDT C8I CRITICAL [...] for R sided interscalene block - Dilaudid corsets salesperson 0.2 mg Q10m - Dilaudid 1mg IV daily prn for bedside dressing changes - Clonidine 0.1 mg BID - Tylenol 975mg ngt Q6H scheduled - Toradol 15mg IV Q8H scheduled x 15 doses - Methadone 45mg Q8H continued (in place of home dose) - Methadone outpatient maintenance dose confirmed as 130mg daily - Methadone clinic: [facility]) - Continue Gabapentin 300mg ngt Q8H [...] hydrocortisone >250mg QD, pred 60, 10 decadron longitudinal float operator low dose ASA or plavix , therapeutic anticoagulation Restraints: this patient is not requiring restraints at this time Lines/Devices: All invasive lines discussed during rounds and use reviewed 04/13/25. Central Line Present/Indication: Inadequate Peripheral Access as noted by IV therapy team Arterial Line Present/Indication: No [place] Present [place] Present/Indication: No [place] Present ANTIBIOTIC [...] pt remained intubated and was admitted to [facility], [place] BUE/chest/neck soft tissues obtained withplan for RTOR 04/09. Shift Events: -Dressing change at bedside by surgery team, required Dilaudid 1mg IV x1 plus Dilaudid BOBBIN WASHER (0.2mg x2 intervals) for total of 1.4mg [...] Analysis of the most recent level(s) using Sut[employer]X gives the following patient-specific pharmacokinetic parameters: CL: [...] pleural effusion. Interpreted by: Emilee Casas MD Website/Blog Editor I personally reviewed the images and the [...] technique DLP: 1068 mGy-cm FINDINGS The large aopea-mi-wksx and positioning limits evaluation. Subcutaneous soft tissues: [...] Surgery, PGY-2 04/13/2025 6:51 AM * Ani Bolaños Kevin, DRESSING ROOM ATTENDANT - 04/12/2025 11:00 AM EDT C8I CRITICAL [...] interscalene block - Dilaudid infusion to dilaudid corsets salesperson 0.2 mg Q10m - Stopped ketamine infusion - Clonidine 0.1 mg BID - Tylenol 975mg ngt Q6H scheduled - Toradol 15mg IV Q8H scheduled x 15 doses - Methadone 45mg Q8H continued (in place of home dose) - Methadone outpatient maintenance dose confirmed as 130mg daily - Methadone clinic: [facility]) - Continue Gabapentin 300mg ngt Q8H [...] hydrocortisone >250mg QD, pred 60, 10 decadron chcf low dose ASA or plavix , therapeutic [...] pt remained intubated and was admitted to [facility], [place] BUE/chest/neck soft tissues obtained withplan for RTOR 04/09. Shift Events: -Extubated to nasal cannula early AM, tolerating 4LNC -Started Dilaudid BOBBIN WASHER (0.2mg BOBBIN WASHER dose Q10m), decreased Methadone to home dose [...] ml Recent Labs 04/09/25 1720 04/10/25 0006 04/11/25 0057 04/12/25 000 NA 136 136 139 141 K 3.9 4.3 3.5 3.5 CO2 28 CL 104 102 106 105 BUN [...] Recent Labs 04/11/25 0057 04/11/25 0630 04/12/25 000 WBC 19.5* 22.1* 17.5* [...] Brown APRN 3:38 PM 04/12/2025 * Clarice Hernandez, - 04/12/2025 2:09 AM EDT Daily General [...] right axillary incision with other end of [place] no surrounding erythema or drainage. Pulm: Intubated [...] pleural effusion. Interpreted by: Emilee Casas MD Website/Blog Editor I personally reviewed the images and the [...] head) - Use of iterative construction technique 6216.35 FINDINGS: Within the upper extremity, one appears [...] technique DLP: 1068 mGy-cm FINDINGS The large bkpiv-vt-aufe and positioning limits evaluation. Subcutaneous soft tissues: [...] 75 kg (165 lb 5.5 oz) IBW: [place] body weight: 50.6 kg (111 lb 7.8 [...] SCr of 0.61 mg/dL). Assessment: Analysis using SutusX gives the following predicted pharmacokinetic parameters: CL: [...] daily. Sejal Napoles PharmD A Document for: [facility] Title: Vancomycin: Pharmacy to Dose_[facility] Purpose: To provide instruction on [...] (Less than 28 days of age) Contact [facility] for assistance. AUC Therapeutic Drug [...] patient safety. For some infections, such as AUTOMOBILE UPHOLSTERER infections, a higher range of 500-600 may [...] In patients with fluctuating renal function, a cxom-lp-sslht strategy can be utilized. Target AUC Concentrations: A target AUC of 400 to 600 is recommended for all patients except those with AUTOMOBILE UPHOLSTERER infections. For AUTOMOBILE UPHOLSTERER infections, a higher range of 500-600 may [...] that were collected prior to admission to [facility]. This will allow [employer]??? to [...] dialysis will be dosed outside of the [employer]??? software. All patients should receive weight-based loading [...] Nephrotoxic Agents: (list is not all-inclusive) Acyclovir [place] Aminoglycosides Loop Diuretics (usually higher doses) Amphotericin [...] is still accessible during the downtime, the [employer]??? web-based platform can still be utilized ([email or web address]). All general concepts or restrictions in this [...] from the original note were not included. [facility] ID Progress Note Name: Molly Beasley Age: 34 y.o. Sex: female ASSESSMENT & PLAN Assessment: 34-year-old female with history of active IV drug use, history of xylazine infection, depression, anxiety, transferred to [facility] from OSH on 04/06 for concern [...] positive number of MRSA on 04/02. At [facility], patient was febrile 200.6, currently on vancomycin, evaluated by orthopedics and general surgery. ID wasconsulted on 04/07 1. MRSA right upper extremity [...] pleural effusion. Interpreted by: Emilee Casas MD Website/Blog Editor I personally reviewed the images and the [...] technique DLP: 1068 mGy-cm FINDINGS The large djfnm-br-jiop and positioning limits evaluation. Subcutaneous soft tissues: [...] not compromised This report was generated using [employer] Speaking dictation software. Although every attempt has been made by the provider to proofread this document, occasional misspellings and typographical errors Sign Anisa Perez MD, [facility] Infectious Diseases Available via [employer] (by [email or web address]) 04/11/2025 12:55 PM [1] Current Facility-Administered Medications Medication Dose Route Frequency Provider Last Rate Last Admin lactated ringers (LR) infusion 50 mL/hr Intravenous Continuous Luda Houser APRN 50 mL/hr at 04/11/25 1100 50 mL/hr at 04/11/25 1100 acetaminophen (TYLENOL) 160 mg/5 mL solution 975 mg 975 mg Feeding Tube Q6H [facility] Ani Brown APRN 975 mg at 04/11/25 1213 albuterol (PROVENTIL) (0.083%) 2.5 mg/3 mL nebulizer solution 2.5 mg 2.5 mg Nebulization Q6H PRN Ani Brown APRN baclofen (LIORESAL) tablet 10 mg 10 mg Feeding Tube Q8H [facility] Ani Brown APRN 10 mg at 04/11/25 [...] 1 mg 1 mg Intramuscular Daily PRN nAi Brown APRN folic acid (FOLVITE) tablet 1 mg 1 mg Feeding Tube Daily Daniel Palacios PA-C 1 mg at 854 gabapentin (NEURONTIN) capsule 300 mg 300 mg Feeding Tube Q8H [facility] Ani Brown APRN 300 mg at 04/11/25 0854 heparin (porcine) 5000 unit/mL injection 5,000 Units 5,000 Units Subcutaneous Q8H [facility] Ani Brown APRN 5,000 Units at 04/11/25 0855 HYDROmorphone (DILAUDID) 1 mg/mL BOBBIN WASHER syringe (premix) Intravenous Continuous Joseph Campbell Jr., MD HYDROmorphone (DILAUDID) injection 1 mg 1 mg Intravenous Q1H PRN Ani Brown APRN 1 mg at 04/11/25 1011 insulin lispro (HumaLOG/ADMELOG) 100 units/mL injection 1-6 Units 1-6 Units Subcutaneous Q4H HANNAH Echevarria MD 1 Units at 04/10/25 0428 [...] wound Pre-Medication: IV dilaudid Wound Assessment: Lateral [place] with viable tissue, tunnels laterally, no odor or purulent drainage, scant bleeding Medial [place] with viable tissue, no purulent drainage, no odor, scant bleeding Chest [place] with viable tissue, area tunnels deeply going [...] block - Transition Dilaudid infusion to dilaudid corsets salesperson + continue 1mg IV Q1H PRN - [...] setting of multiple surgeries - Methadone clinic: [facility] Care [facility]) - Continue Gabapentin 300mg ngt Q8H [...] hydrocortisone >250mg QD, pred 60, 10 decadron longitudinal float operator low dose ASA or plavix , therapeutic [...] pt remained intubated and was admitted to [facility], [place] BUE/chest/neck soft tissues obtained withplan for RTOR 04/09. Shift Events: - Contacted anesthesia pain for evaluation of right interscalene block for better pain management - Increased methadone to 60 mg TID for better pain management and to wean the dilaudid gtt - Will add dilaudid BOBBIN WASHER without continuous infusion - Post-pyloric DHT placed [...] ??F (36.6 ??C) Pulse: [67-91] 91 Resp: [1-] 27 BP: (133-188)/(49-120) 157/78 Neuro/HEENT: Alert and [...] [1-27] 27 BP: (133-188)/(49-120) 157/78 Recent Labs 04/08/25 [...] 3070 ml Net -85.01 ml Recent Labs 04/08/25211404/09/2532304/09/25122004/09/25 1720 04/10/25 0006 04/11/25 0057 NA 138 [...] 1720 LACTIC 1.1 1.4 HEME: Recent Labs 04/08/25211404/09/25 0324 04/09/25 1221 04/09/25 [...] Convert IV Dilaudid infusion to patient-controlled analgesia (BOBBIN WASHER) on demand- only setting. Wean off ketamine [...] right axillary incision with other end of [place] no surrounding erythema or drainage. Pulm: Intubated [...] pleural effusion. Interpreted by: Emilee Casas MD Website/Blog Editor I personally reviewed the images and the [...] head) - Use of iterative construction technique 6576.35 FINDINGS: Within the upper extremity, one appears [...] technique DLP: 1068 mGy-cm FINDINGS The large izjbz-ii-trjk and positioning limits evaluation. Subcutaneous soft tissues: [...] Case IDs Date Procedure Surgeon Location Status [id number] 04/07/25 INCISION & DRAINAGE AND DEBRIDEMENT UPPER EXTREMITY Db Lynn MD [facility] [id number] 04/08/25 INCISION & DRAINAGE Galdino Cunningham MD [facility] Comp [id number] 04/09/25 DEBRIDEMENT UPPER EXTREMITY AND CHEST Db Lynn MD [facility] Comp [id number] 04/10/25 DEBRIDEMENT WOUND RIGHT UPPER EXTREMITY, LEFT [...] 0659 04/11/25 0700 - 04/12/25 0659 Shift 7602-7316 6690-2269 24 Hour Total 5324-4896 6060-7531 1261-7793 24 Hour Total INTAKE I.V.(mL/kg) 560.9(7.5) 363(4.8) [...] Volume (mL) ( lactated ringers (LR) infusion) 991 437 0715.3 Volume (mL) (sodium chloride (NS) 0.9 % [...] left nostril) 90 30 180 IV Piggyback 245 458 9836 Volume (mL) (linezolid (ZYVOX) IVPB 600 mg in 300 mL D5W (premix)) 300 600 Volume (mL) (magnesium sulfate IVPB 2 g in 50 mL SW PREMIX) 50 50 Volume (mL) (calcium gluconate IVPB 2 g in 100 mL NS PREMIX) 100 100 Volume (mL) (piperacillin-tazobactam (ZOSYN) 4.5 g in sodium chloride-MBP (NS) 100 mL IVPB-MBP) 337960 300 Shift Total(mL/kg) 750.9(10) 993(13.2) 3384.3(45) OUTPUT Urine(mL/kg/hr) 1080(1.8) 285 2510 Urine Output (mL) (Urethral Catheter (Adult) 04/08/25 2018 latex 16 Fr 10 mL balloon size 10 mL balloon inflation volume) 2680 074 0808 Stool Unmeasured Stool Occurrence 1 x 3 [...] from the original note were not included. [facility] ID Progress Note Name: Molly Beasley Age: 34 y.o. Sex: female ASSESSMENT & PLAN Assessment: 34-year-old female with history of active IV drug use, history of xylazine infection, depression, anxiety, transferred to [facility] from OSH on 04/06 for concern [...] positive number of MRSA on 04/02. At [facility], patient was febrile 200.6, currently on [...] pleural effusion. Interpreted by: Emilee Casas MD Website/Blog Editor I personally reviewed the images and the [...] head) - Use of iterative construction technique 1975.35 FINDINGS: Within the upper extremity, one appears [...] technique DLP: 1068 mGy-cm FINDINGS The large uoqhu-qc-zjxz and positioning limits evaluation. Subcutaneous soft tissues: [...] not compromised This report was generated using [employer] dictation software. Although every attempt has been made by the provider to proofread this document, occasional misspellings and typographical errors Sign Anisa Perez MD, FIDSA, [facility] Infectious Diseases Available via [employer] (by [email or web address]) 04/10/2025 9:39 AM [1] Current Facility-Administered Medications Medication Dose Route Frequency Provider Last Rate Last Admin lactated ringers (LR) infusion 50 mL/hr Intravenous Continuous Luda Houser APRN 50 mL/hr at 04/10/25 0704 50 mL/hr at 04/10/25 0704 acetaminophen (TYLENOL) 160 mg/5 mL solution 975 mg 975 mg Feeding Tube Q6H [facility] Ani Brown APRN 975 mg at 04/10/25 0519 albuterol (PROVENTIL) (0.083%) 2.5 mg/3 mL nebulizer solution 2.5 mg 2.5 mg Nebulization Q6H PRN Ani Brown APRN baclofen (LIORESAL) tablet 10 mg 10 mg Feeding Tube Q8H [facility] Ani Brown APRN 10 mg at [...] 300 mg Feeding Tube Q8H [facility] Ani Brown APRN 300 mg at 04/10/25 0551 heparin (porcine) 5000 unit/mL injection 5,000 Units 5,000 Units Subcutaneous Q8H [facility] Ani Brown APRN 5,000 Units at [...] Units 1-6 Units Subcutaneous Q4H [facility] Sd Echevarria MD 1 Units at [...] (NS) 100 mL IVPB- MBP 4.5 g [id number] Ani Brown APRN 33.3 mL/hr at 04/10/25 [...] 2 tablet Feeding Tube BID Ani Brown, DRESSING ROOM ATTENDANT 2 tablet at 04/10/25 0839 [2] No [...] Intake/Output Summary (Last 24 hours) at 04/10/2025 0927 Last data filed at 04/10/2025 0708 Gross [...] pleural effusion. Interpreted by: Emilee Casas MD Website/Blog Editor I personally reviewed the images and the [...] head) - Use of iterative construction technique 5436.35 FINDINGS: Within the upper extremity, one appears [...] technique DLP: 1068 mGy-cm FINDINGS The large tvrjk-ox-duhy and positioning limits evaluation. Subcutaneous soft tissues: [...] surgeries - Methadone clinic: [facility]) - Continue Gabapentin 300mg ngt Q8H [...] hydrocortisone >250mg QD, pred 60, 10 decadron chcf low dose ASA or plavix , therapeutic [...] pt remained intubated and was admitted to [facility], [place] BUE/chest/neck soft tissues obtained withplan [...] ringers, 50 mL/hr, Last Rate: 50 mL/hr (04/10/25 1200) HYDROmorphone, 1 mg/hr, Last Rate: 1 mg/hr (10/09/25 1200) ketamine, 5 mcg/kg/min, Last Rate: 5 mcg/kg/min (04/10/25 1200) propofol, 5-75 mcg/kg/min, Last Rate: 50 mcg/kg/min (04/10/251199) CV: Temp: [95.9 ??F (35.5 ??C)-100 ??F (37.8 ??C)] 98.6 ??F (37 ??C) Pulse: [60-102] 88 Resp: [4-32] 14 BP: (123-199)/(57-146) 188/81 Recent Labs 04/08/25211404/09/25 0324 04/09/255 04/09/25 17204/09/252128 CKTOTAL 138 97 91 262* 123 Recent Labs 04/09/25102404/09/25 1720 04/09/252128 CKTOTAL 91 262* 123 PULM: [...] ml Net 4320.95 ml Recent Labs 04/08/25 0504/08/25211404/09/2532304/09/25122004/09/250 04/10/25 0006 NA 140 138 141 145 [...] 172 LACTIC 1.1 1.4 HEME: Recent Labs 04/08/2552904/08/25211404/09/2532304/09/25122004/09/25171904/10/25 0006 04/10/25 0914 HCT 25.1* 22.4* 21.7* [...] Case IDs Date Procedure Surgeon Location Status [id number] 04/07/25 INCISION & DRAINAGE AND DEBRIDEMENT UPPER EXTREMITY Db Lynn MD [facility] [place] Comp [id number] 04/08/25 INCISION & DRAINAGE Galdino Cunningham MD [facility] OR Comp [id number] 04/09/25 DEBRIDEMENT UPPER EXTREMITY AND CHEST Db Lynn MD [facility] OR Comp [id number] 04/10/25 DEBRIDEMENT WOUND RIGHT UPPER EXTREMITY, LEFT UPPER EXTREMITY, RIGHT CHEST WALL Shaila Solorio MD [facility] [place] [facility] Assessment & Plan 34 y.o. female [...] from the original note were not included. [facility] ID Progress Note Name: Molly Beasley Age: 34 y.o. Sex: female ASSESSMENT & PLAN Assessment: 34-year-old female with history of active IV drug use, history of xylazine infection, depression, anxiety, transferred to [facility] from OSH on 04/06 for concern [...] positive number of MRSA on 04/02. At [facility], patient was febrile 200.6, currently on [...] pleural effusion. Interpreted by: Emilee Casas MD Website/Blog Editor I personally reviewed the images and the [...] head) - Use of iterative construction technique 9624.35 FINDINGS: Within the upper extremity, one appears [...] technique DLP: 1068 mGy-cm FINDINGS The large gdagt-yx-cxta and positioning limits evaluation. Subcutaneous soft tissues: [...] not compromised This report was generated using [employer] dictation software. Although every attempt has been made by the provider to proofread this document, occasional misspellings and typographical errors Sign Anisa Perez MD, FIDSA, [facility] Infectious Diseases Available via [employer] (by [email or web address]) 04/09/2025 11:17 AM [1] Current Facility-Administered Medications Medication Dose Route Frequency Provider Last Rate Last Admin lactated ringers (LR) infusion 100 mL/hr Intravenous Continuous Ani Brown APRN 100 mL/hr at 04/09/25 1000 100 mL/hr at 04/09/25 1000 acetaminophen (TYLENOL) 160 mg/5 mL solution 975 mg 975 mg Feeding Tube Q6H [facility] Ani Brown APRN 975 mg at 04/09/25 0339 albuterol (PROVENTIL) (0.083%) 2.5 mg/3 mL nebulizer solution 2.5 mg 2.5 mg Nebulization Q6H PRN Ani Brown APRN baclofen (LIORESAL) tablet 10 mg 10 mg Feeding Tube Q8H [facility] Ani Brown APRN 10 mg at [...] 300 mg Feeding Tube Q8H [facility] Ani Brown APRN 300 mg at 04/09/25 0537 heparin (porcine) 5000 unit/mL injection 5,000 Units 5,000 Units Subcutaneous Q8H [facility] Ani Brown APRN 5,000 Units at [...] Units 1-6 Units Subcutaneous Q4H [facility] Sd Echevarria MD ketorolac (TORADOL) injection [...] (NS) 100 mL IVPB- MBP 4.5 g [id number] Ani Brown APRN 33.3 mL/hr at 04/09/25 [...] daily (confirmed home maintenance dose) -Methadone clinic: [facility]) -Gabapentin 300mg ngt Q8H -Baclofen 10mg ngt Q8H -COWS monitoring Q4H Respiratory Intubation for airway protection -Ventilator protocol -Propofol for ventilator tolerance -Wean supplemental O2 as tolerated for SpO2 goal > 92% -Albuterol Q6H prn for wheezing GI Constipation most likely due to opioid usage NGT to suction Bowel Regimen (dulcolax, zofran, miralax, senna) Protonix 40 mg QD Add Movantik 25mg 108 AM Lynch Catheter in place, draining clear [...] hydrocortisone >250mg QD, pred 60, 10 decadron longitudinal float operator low dose ASA or plavix , therapeutic [...] pt remained intubated and was admitted to Counts Include 234 Beds At [facility], CT BUE/chest/neck soft tissues obtained withplan [...] recorded. Intake/Output Summary (Last 24 hours) at 04/09/2025730 Last data filed at 04/09/2025 07 Gross [...] Results from last 7 days Lab Units 04/09/2534404/09/2532308/25 0036 04/08/25 2218 04/08/25 2115 04/08/25 0530 [...] pleural effusion. Interpreted by: Emilee Casas MD Website/Blog Editor I personally reviewed the images and the [...] Case IDs Date Procedure Surgeon Location Status [id number] 04/07/25 INCISION & DRAINAGE AND DEBRIDEMENT UPPER EXTREMITY Db Lynn MD Main OR Comp [id number] 04/08/25 INCISION & DRAINAGE Galdino Cunningham MD Main OR Comp [id number] 04/09/25 DEBRIDEMENT UPPER EXTREMITY Db Lynn MD [...] MD PGY1 04/09/2025 12:59 AM * Ani Bolaños Brown, DRESSING ROOM ATTENDANT - 04/08/2025 9:29 PM EDT C8I CRITICAL [...] daily (confirmed home maintenance dose) -Methadone clinic: [facility] Care Resource [facility]) -Gabapentin 300mg ngt Q8H -Baclofen 10mg [...] hydrocortisone >250mg QD, pred 60, 10 decadron longitudinal float operator low dose ASA or plavix , therapeutic anticoagulation Restraints: bilateral soft wrist restraints in place to prevent inadvertent removal of necessary medical devices and to maintain patient safety, use reviewed today and remain medically necessary Lines/Devices: All invasive lines discussed during rounds and use reviewed 04/09/25. Central Line Present/Indication: Inadequate Peripheral Access as noted by IV therapy team Arterial Line Present/Indication: No [place] Present Lynch Present/Indication: Strict I&O ANTIBIOTIC TIME [...] propofol, 5-75 mcg/kg/min, Last Rate: 55 mcg/kg/min (04/09/25753) CV: Temp: [92.3 ??F (33.5 ??C)-97.6 ??F [...] Labs 04/08/252114 LACTIC 1.1 HEME: Recent Labs 04/08/2530 04/08/25211404/09/25323 HCT 25.1* 22.4* 21.7* HGB 8.0* 7.2* 7.0* WBC 15.0* 9.4 12.3* PLT [phone] ID: Temp Min: 92.3 ??F (33.5 ??C) Max: 97.6 ??F (36.4 ??C) Recent Labs 04/08/2552904/08/25211404/09/25323 WBC 15.0* 9.4 12.3* Cultures: See micro in EPIC ENDOCRINE: Results from last 7 days Lab Units 04/09/25 0759 04/09/25 0345 04/09/254 04/09/25 0036 04/08/25221704/08/25211404/08/25529 GLUCOSE mg/dL -- -- [...] Analysis of the most recent level(s) using SutusX gives the following patient-specific pharmacokinetic parameters: CL: [...] living in a skilled nursing (including now)? 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 With Choices Of Facility Preference(s);Homecare Company Preferences(s) Facility Preference(s) [facility] on [place], [facility] [place], [facility], [facility] [place], [facility] [place], [facility], Dalia Rizvi at [facility] Homecare Company Preference(s) [facility], [facility], [facility], [facility], [facility] Insurance Benfits/Coverage Discussed with Patient Plan Plan STR vs home with HC Patient/Family in Agreement with Plan yes * Anisa Perez MD - 04/08/2025 9:33 AM EDT Images from the original note were not included. [facility] ID Progress Note Name: Molly Beasley Age: 34 y.o. Sex: female ASSESSMENT & PLAN Assessment: 34-year-old female with history of active IV drug use, history of xylazine infection, depression, anxiety, transferred to [facility] from OS on 04/06 for concern of [...] positive number of MRSA on 04/02. At [facility], patient was febrile 200.6, currently on [...] 60 Pharmacy Protocol Orders Pharmacy Protocol Orders 04/06/251 OBJECTIVE Physical Examination: Vitals: 04/08/25 0400 BP: [...] pleural effusion. Interpreted by: Emilee Casas MD Website/Blog Editor I personally reviewed the images and the [...] head) - Use of iterative construction technique 5816.35 FINDINGS: Within the upper extremity, one appears [...] technique DLP: 1068 mGy-cm FINDINGS The large rpnsm-oc-cxxl and positioning limits evaluation. Subcutaneous soft tissues: [...] not compromised This report was generated using IMImobile Speaking dictation software. Although every attempt has been made by the provider to proofread this document, occasional misspellings and typographical errors Sign Anisa Perez MD, FID, [facility] Infectious Diseases Available via Bondora (by [email or web address]) 04/08/2025 9:33 AM [1] Current Facility-Administered Medications [...] mg 10 mg Rectal Daily PRN Clarice Henrandez DO chlorhexidine gluconate 2 % wipes - [...] PRN Clarice Hernandez DO 30 mg at 328131 methadone (DOLOPHINE) tablet 130 mg 130 mg Oral Daily Clarice Hernandez DO 130 mg at 04/08/25 0837 naloxone (NARCAN) 0.4 mg/mL injection 0.4 mg 0.4 mg Intravenous Q5 Min PRN Clarice Hernandez DO ondansetron (ZOFRAN) injection 4 mg 4 mg Intravenous Q6H PRN Clarice Hernandez DO piperacillin-tazobactam (ZOSYN) 4.5 g in sodium chloride-MBP (NS) 100 mL IVPB- MBP 4.5 g [id number] Clarice Hernandez DO Stopped at 04/08/25 0912 [...] IV drug use who was transferred to [facility] yesterday for concern for right upper [...] Diet: Diet NPO; Meds I/O: Date 04/07/25 07 - 04/08/25 0659 04/08/25 07 - 04/09/25 0659 Shift [id number] 4900-2791 9872-5564 24 Hour Total 7010-4872 9028-9581 9429-7615 24 Hour Total INTAKE I.V.(mL/kg) 3(0) 1006(13.7) [...] pleural effusion. Interpreted by: Emilee Casas MD Website/Blog Editor I personally reviewed the images and the [...] technique DLP: 1068 mGy-cm FINDINGS The large vwnsg-ne-pcay and positioning limits evaluation. Subcutaneous soft tissues: [...] Case IDs Date Procedure Surgeon Location Status [id number] 04/07/25 INCISION & DRAINAGE AND DEBRIDEMENT UPPER EXTREMITY Db Lynn MD Main OR Comp [id number] 04/08/25 INCISION & DRAINAGE Karo Tirado MD Main OR Not [facility]ly [facility] Assessment & Plan Assessment: Molly Beasley [...] ??C) Max: 100.6 ??F (38.1 ??C) Date 04/07/25699 - 04/08/25 0659 Shift [id number] 9036-2517 9896-9466 24 Hour Total INTAKE I.V.(mL/kg) 3(0) 1006(13.7) [...] underwent I&D by general surgery team at [facility] 04/03. She then developed worsening of right [...] of Discharge: 04/11/2025 {Click to update YAHAIRA: [id number]} VTE Time Out IMPROVE SCORE: 0 (04/06/2025 [...] with swelling Objective: Last 3 Filed Values 04/06/25 2120 04/07/25 0030 04/07/25 0315 BP: [...] 100 mL/hr, Last Rate: 100 mL/hr (04/06/25 1843) Diagnostic studies: I have reviewed the labs [...] IV drug use who was transferred to [facility] yesterday for concern for right upper [...] inthe wrist. She is subsequently transferred to [facility] for further evaluation. Yesterday, some of [...] chips I/O: Date 04/06/25 07 - 04/07/25 0659 04/07/25 07 - 04/08/25 0659 Shift 9541-8180 9389-1862 2152-7292 24 Hour Total 8460-1972 6716-4727 9490-1258 24 Hour Total INTAKE I.V. 1000(13.6) 1000(13.6) [...] is a 34 y.o. female transferred to [facility] from an outside hospital where she [...] Analysis of the most recent level(s) using Quitbit gives the following patient-specific pharmacokinetic parameters: CL: [...] Xanax and clonidine as prescribed, presents to [facility] as a direct transfer from outside [...] patient is on 130 mg methadone from [facility]., Was confirmed by outside hospital physician. [...] 130 mg of methadone, follows up with [facility]., Was confirmed by provider at outside [...] from the original note were not included. [facility] Nutrition Note Visit Type: initial assessment [...] - 2211 Kcals/day (20 - 30 Kcals/kg) [place]: RMR (Mon[place]zuma-St. Jeor Equation): 1383.5 [place]-St. 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 female currently admitted for: Hand abscess Assessment & Plan Social Work Interventions Unable to introduce self/services at this time, however, will make additional attempt at a later time Summary Molly Beasley was referred to Health Social Work (SW) by manager of case management and surgical team DRESSING ROOM ATTENDANT for identification of LAR and substance use assessment. Upon assessment, Molly was intubated. Giventhis, SW will follow-up when they are able to meaningfully participate in assessment. Health social media manager reviewed EMR. Called and spoke with Pt's [...] in order to prevent delays in care. [facility] has coordinated for anesthesia for TLC to be placed. Order will be cancelled at this time. This was communicated with the ordering provider. Please reachout to [facility] for any questions or concerns. TAMI Mackay 04/07/2025 1:16 PM Please direct any questions regarding procedure time/ date to the specific imaging modality Ultrasound: 85015 or [place] Text Inpatient Procedure Team * Anisa Perez MD - 04/07/2025 9:40 AM EDTAssociated Order(s): IP CONSULT TO INFECTIOUS DISEASES Images from the original note were not included. [facility] ID Consult Note Date of Consult: 04/07/2025 Physician Requesting Consult: Bhavin Parks MD Reason for Consultation: MRSA bacteremia, multiple bilateral upper extremity abscesses, IV drug use Name: Molly Beasley Age: 34 y.o. Sex: female Admit Date: 04/06/2025 8:42 PM ASSESSMENT & PLAN Assessment: 34-year-old female with history of active IV drug use, history of xylazine infection, depression, anxiety, transferred to [facility] from OSH on 04/06 for concern [...] positive number of MRSA on 04/02. At [facility], patient was febrile 200.6, currently on vancomycin, evaluated by orthopedics and general surgery. IDis consulted for evaluation today 1. Right upper extremity abscess in the setting of active IV drug use prior history of xylazine infection. CT at [facility] showed worsening compared with imaging on [...] medicine input 7. If Blood cultures at [facility] are positive, then pursue YANA Communicated [...] forearm, depression, anxiety patient was admitted to [facility] on 04/06 as transfer from OSH [...] differential, no soft tissue gas. Transferred to [facility] for higher level of care. At [facility], patient with Tmax 100.6, no labs [...] where applicable This report was generated using IMImobile Speaking dictation software. Although every attempt has been made by the provider to proofread this document, occasional misspellings and typographical errors Sign Anisa Perez MD, [facility] Infectious Diseases Available via Bondora (by [email or web address]) 04/07/2025 9:41 AM [1] No Known Allergies [...] with history noted below who presents to [facility] as a transfer from outside facility [...] concern for worsening infection. Patient wastransferred to [facility] to rule out nec fasc. Patient [...] medications on file. Objective Physical Exam Vitals: 04/06/25205504/06/252119 BP: (!) 167/93 [...] questions.. Harmony Marroquin MD 6:20 AM * Indio De La Fuente PA-C - 04/06/2025 10:31 [...] fasciitis. She reports she originally presented to [facility] this past Monday for worsening pain [...] Min PRN Ordered Allergies[1] Physical Exam Vitals: 04/06/256 04/06/250 BP: (!) 167/93 BP Location: Right leg Patient Position: Lying Pulse: (!) 104 Resp: 18 Temp: (!) 100.3 ??F (37.9 ??C) TempSrc: Oral SpO2: 93% Weight: 73.7 kg (162 lb 7.7 oz) Height: 1.58 m (5' 2.21 ) No intake or output data in the 24 hours ending 04/06/252230 General: patient alert and oriented x3, in [...] light touch. Fires EPL, FPL, interossi, ADQ, dining room attendant strength, wrist extensors/flexors. Radial pulse palpable, entire [...] light touch. Fires EPL, FPL, interossi, ADQ, dining room attendant strength, wrist extensors/flexors. Radial pulse palpable, forearm [...] 12:41 PM EDT Request for Documentation Clarification [facility] RamosTitoMolly ; VISIT [id number] Query Response Sent: 04/14/25 12:41 EDT From: [...] 10 pain in bilateral upper extremity (04/07/2025, u Courtney, H&P). * Oxygen saturation: O2 Sat: 87 % (04/07/2025). * Bacteremia: MRSA bacteremia noted (04/11/2025, Anisa Perez, PROGRESS). * Risk Factors * Infection: Infection of wound due to methicillin resistant Staphylococcus aureus (MRSA) (04/09/2025, Melissa Alan, CONSULT). * Sepsis: Was given a dose of vancomycin and Zosyn, IV fluids given per sepsis protocol (04/07/2025,[facility] Courtney, H&P). * Treatment * Ventilator: Intubation for [...] abscess. She continues on IV antibiotics and BOBBIN WASHER for pain management. Per EGS team, she will not need IV antibiotics upon discharge. Therefore, patient should be able to return home with home care services for wound care. Additional HC referrals made to agencies that service [place], [place]. CM to follow clinical progress towards return home. Recommendation: Home with services, SNF vs. [facility] Addendum 2:30PM: Per ID, patient will need six more weeks of IV antibiotics. She has SNF referrals pending, with no bed offer as of yet. CM made additional SNF referrals in the [facility] area. EGS plans to contact [facility] to try to transfer patient back [...] * Rehab Therapy Consults - Clarice Montoya CCC-ARCHITECTURE CONSULTANT - 04/12/2025 9:12 AM EDT Speech Pathology Clinical Swallow Evaluation IMPRESSION & PLAN Swallow Function Clinically functional oropharyngeal swallow, no overt s/sx of airway compromise noted Mentation appeared adequate during assessment, vocal quality clear/WFL, respiratory status stable May initiate PO diet with distant supervision and good oral care ARCHITECTURE CONSULTANT Plan: Monitor to ensure diet tolerance and [...] goal statement: To drink water Preferred Language: [place] Pain: No pain reported, No pain-associated behaviors [...] generates a functional outcome score. Based on ARCHITECTURE CONSULTANT recommendations, patient is assigned food level Level 7: Regular/Easy to Chew and drink level Level 0: Thin Liquids, supporting a functional outcome score of FDS Levels: 8. The presence of a (+) indicates the initiation of PO trials within a therapeutic context. ASSESSMENT ARCHITECTURE CONSULTANT Diagnosis: Oral and pharyngeal stages of swallowing appear WFL Suggested Consults/Interventions: N/A Functional Status: Nearing baseline function Therapy Frequency: 1-2x/week Rehab Potential: Good to achieve functional improvement towards stated goals Post Acute ARCHITECTURE CONSULTANT Needs: TBD based on clinical progress Goals - Pt will consume a Regular diet with Thin Liquids liquids without evidence of acute dysphagia/aspiration-related complications over 1-3 visit(s) Plan of care discussed with patient, Provider, and RN EDUCATION The patient, Provider, and RN were verbally instructed and educated on patient's results/recommendations. The patient, Provider, and RN verbalized understanding of all information provided. Clarice Montoya, [facility]-ARCHITECTURE CONSULTANT 04/12/25 * Plan of Care - Joe [...] POC, safety maintained, will continue to monitor. Mikla Valadez 04/11/2025 7:41 PM * Plan of [...] from the original note were not included. [facility] 8 ICU [address] [facility] [id number] OPERATIVE REPORT Patient Name: Molly Beasley Date of : 1990 Date of Procedure: 04/10/2025 Surgeons and Role: * Shaila Solorio MD - Primary Pre-op Diagnosis: Abscess of arm, right [L02.413] Post-Op Diagnosis Codes: * Abscess of arm, right [L02.413] Details of Procedure Procedure(s): DEBRIDEMENT WOUND RIGHT UPPER EXTREMITY, LEFT UPPER EXTREMITY, RIGHT CHEST WALL Additional Procedures Surgeon: Shaila Solorio MD Utility Inspector: none Anesthesia: general Indications: 34-year-old female with [...] found to be communicating. A 1/2 inch [place] drain was placed, which was tied to [...] noted Total Fluids: See anesthesia records Drains: [place] Estimated Blood Loss: 50 mL Blood Transfusion: [...] from the original note were not included. [facility] 8 ICU [address] [facility] [id number] OPERATIVE REPORT Patient Name: Molly Beasley Date [...] CHEST Additional Procedures Surgeon: Db Lynn MD Utility Inspector: DO Hussain Czaares DO Anesthesia: general Indications: NSTI of RUE, [...] drawn, H&H down-trending provideraware, electrolytes replaced- see AUG. Notified by ROULA RN that miscellaneous pills [...] VC-SIMV. Pt taken to CT scan in ED.Hnr2ydyioc to 40%. No other changes made. POC is ongoing. Nemesio Posadas 04/09/2025 2:58 AM * Op Note - Vicky Sanders MD - 04/08/2025 7:22 PM EDT Images from the original note were not included. [address] [address] OPERATIVE REPORT Patient Name: Molly Beasley Date [...] Trauma, General and Critical Care Surgery Pager:# [phone] Office Phone:# [phone] * Plan of Care - Pooja Kaufman [...] with history noted below who presents to [facility] as a transfer from outside facility [...] for worsening infection. Patient was transferred to [facility] to rule out nec fasc. Patient [...] pain recc. Patient planned to transfer to [facility] for ongoing dressing changes, iv pain [...] INSTRUMENTS, either luda/forcepts etc) Upon discharge from [facility] patient will follow up with wound clinic affiliated with [facility] for patient convenience. At this time it is felt that she is stable for transfer to [facility]. Upon discussion with the attending physician, [...] Note Assessment completed with patient and/or patient's field representative/health education, medical record review and discussion with clinical team. CC met with the patient using social distancing. Provided a Case Coordination packet with contact information, CC pamphlet and Your Next Step: Care Outside the Hospital brochure to the patient and/or patient field representative/health education. Summary: PMH: IV drug use complicated by history of overdose on methadone,xylozene infection left forearm, depression, anxiety on Xanax and clonidine as prescribed, presents to [facility] as adirect transfer from [facility] due to concern for right upper [...] no elevator access. CM updated address in [facility] as patient no longer lives in [place], [place]. Patient had been working FT. Per s/o, patient had 1 year anniversary of patient's sister's who passed of endocarditis. S/o also reports that patient may have fears of also passing away and developing endocarditis. Patient reports that she used heroin and cocaine 2 days prior to hospital admission. She gets methadone from [facility]. Patient had been independent with ADLs/IADLs And driving. CM updated pharmacy- [facility]. Provided list of HC/STR in [place]. Patient is agreeable to place HC and STR referrals. If patient needs chcf IV abx will need SNF. Patient wishes go to home. She has no DME in home. S/o willing to take time off work to take care of her. Patient is agreeable to SW referral. Per patient, Carlos is HCR/POA. 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 Arsalan Nelson from [facility] in [place], last seen 1 mos ago Anticipated transportation: [...] from the original note were not included. [address] [address] OPERATIVE REPORT Patient Name: Molly Beasley Date [...] EXTREMITY Additional Procedures Surgeon: Db Lynn MD Utility Inspector: MD Clarice Ward DO Anesthesia: general Indications: [...] ACID FAST SMEAR) Db Lynn MD 04/07/2025 9995 2 : right upper extremity tissue culture [...] - 04/07/2025 8:52 AM EDT I contacted [facility] care resource [facility] [[phone]] and confirmed patient's methadone dose to be 130 mg daily [patient took her last dose as an outpatient on 04/02/2025] [facility] * Plan of Care - Veronica Gipson [...] 130 mg of methadone, follows up with [facility]., Was confirmed by provider at outside [...] called by provider Dr. Ronny Mcneil from [facility] in regards to Molly Beasley to be transferred to the [facility]. Their phone number is [phone] in case more information is required. They are requesting the transfer to [facility] for procedural intervention and corporate travel consultant service which is not available in [...] with history of IVDU who presented to [place] due to arm swelling and pain at [...] avoid limb loss. A TTE performed at [place] was not concerning. A YANA has been [...] 04/11/2025 4:00 AM EDT THROMBOELASTOGRAPH (TEG) Routine 025 2:18 AM EDT TRANSFUSE RED BLOOD CELLS [...] BLOOD CELLS Routine 2024 3:35 PM EDT POCT GLUCOSE, FINGERSTICK (CHARGE) Routine 04/09/2025 12:42 [...] ORDERABLES Fi nal Result Performing Organization Address [facility] Phone Number [facility] See Below * (ABNORMAL) POCT Glucose, Fingerstick (04/14/2025 11:40 AM EDT) POC Glucose 147(H) 65 - 99 mg/dL 04/14/2025 11:44 AM EDT Blood specimen / Unknown 04/14/2025 11:40 AM EDT 04/14/2025 11:44 AM EDT us Kenton Medina MD POINT OF CARE TEST ORDERABLES Fi nal Result Performing Organization Address [facility] Co mi Phone Number [facility] See Below * ECG 12 lead (04/14/2025 10:13 AM EDT) [facility] Ventricular rate 64 BPM EKG [facility] Atrial rate 64 BPM EKG [facility] P-R interval 136 ms EKG [facility] QRS duration 84 ms EKG [facility] Q-T interval 428 ms EKG [facility] QTC calculation (Bazett) 442 ms EKG [facility] P axis 52 degrees EKG [facility] R axis 72 degrees EKG [facility] T axis 68 degrees EKG [facility] 04/14/2025 10:1 3 AM EDT Narrative EKG [facility] - 04/14/2025 1:09 PM EDT Normal [...] Arabella Avalos PA-C ECG ORDERABLES Final Result [facility] * (ABNORMAL) POCT Glucose, Fingerstick (04/14/2025 [...] ORDERABLES Fi nal Result Performing Organization Address City/[facility] Co de Phone Number HOSPITAL LAB See Below * (ABNORMAL) Phosphorus (04/14/2025 4:05 AM EDT) Phosphorus 2.5(L) 2.7 - 4.5 mg/dL 04/14/2025 5:06 AM EDT [facility] [facility] Blood Blood specimen / Unknown 04/14/2025 4:05 AM EDT 04/14/2025 4:35 AM EDT us Lucho Donaldson MD LAB BLOOD ORDERABLES Final Re sult Performing Organization Address [facility] [place] [address], [place] [address] * Magnesium (04/14/2025 4:05 AM EDT) Magnesium 1.9 1.6 - 2.7 mg/dL 04/14/2025 5:06 AM EDT [facility] Blood Blood specimen / Unknown 04/14/2025 4:05 AM EDT 04/14/2025 4:35 AM EDT us Lucho Donaldson MD LAB BLOOD ORDERABLES Final Re sult Performing Organization Address [facility] [place] [address], [place] [address] * (ABNORMAL) Complete Blood Count, WITHOUT Differential (routine) (04/14/2025 4:05 AM EDT) White Blood Cell Count 13.7(H) 4.0 - 11.0 Thou/uL 04/14/2025 4:53 AM EDT [facility] Platelet Count 616(H) 150 - 450 Thou/uL 04/14/2025 4:53 AM [facility] Hemoglobin 7.3(L) 11.7 - 15.7 g/dL 04/14/2025 4:53 AM [facility] Hematocrit 23.3(L) 35.0 - 47.0 % 04/14/2025 4:53 AM [facility] Red Blood Cell Count 2.68(L) 4.00 - 5.40 Mil/uL 04/14/2025 4:53 AM [facility] MCV 87 80 - 100 fL 04/14/2025 4:53 AM [facility] MCH 27.2 26.0 - 34.0 pg 04/14/2025 4:53 AM [facility] MCHC 31.3 30.0 - 36.0 g/dL 04/14/2025 4:53 AM [facility] RDW 17.9(H) 11.5 - 14.5 % 04/14/2025 4:53 AM [facility] MPV 9.8 7.5 - 12.5 fL 04/14/2025 4:53 AM [facility] nRBC 0.4(H) 0.0 - 0.1 /100 WBC 04/14/2025 4:53 AM [facility] nRBC, Absolute 0.05(H) 0.00 - 0.02 Thou/uL 04/14/2025 4:53 AM [facility] Blood Blood specimen / Unknown 04/14/2025 4:05 AM EDT 04/14/2025 4:35 AM EDT Lucho Donaldson MD LAB BLOOD ORDERABLES Final Re sult [address] [address], [address] [address] * (ABNORMAL) Basic Metabolic Panel (04/14/2025 4:05 AM EDT) Glucose 111(H) 65 - 99 mg/dL 04/14/2025 5:06 AM [facility] Comment:Fasting: <100 mg/dL, Non-Fasting: <200 mg/dL (ADA 2005) Blood Urea Nitrogen (BUN) 11 8 - 21 mg/dL 04/14/2025 5:06 AM [facility] Creatinine 0.74 0.40 - 1.10 mg/dL 04/14/2025 5:06 AM [facility] eGFR >90 >59 04/14/2025 5:06 AM [facility] Comment:CKD-EPI (2020) in mL /min/1.73 sq meters. Sodium 137 136 - 145 mmol/L 04/14/2025 5:06 AM [facility] Potassium 3.4 3.4 - 5.3 mmol/L 04/14/2025 5:06 AM [facility] Chloride 104 98 - 107 mmol/L 04/14/2025 5:06 AM [facility] CO2 26 22 - 33 mmol/L 04/14/2025 5:06 AM [facility] Anion Gap 7 7 - 17 04/14/2025 5:06 AM [facility] Calcium 7.3(L) 8.7 - 10.5 mg/dL 04/14/2025 5:06 AM [facility] BUN/Creatinine Ratio 15 10.0 - 25.0 Ratio 04/14/2025 5:06 AM [facility] Blood Blood specimen / Unknown 04/14/2025 4:05 AM EDT 04/14/2025 4:35 AM EDT Lucho Donaldson MD LAB BLOOD ORDERABLES [place] [address], [place] [address] * (ABNORMAL) POCT Glucose, Fingerstick (04/13/2025 11:58 PM EDT) POC Glucose 101(H) 65 - 99 mg/dL 04/13/2025 11:59 PM EDT Blood specimen / Unknown 04/13/2025 11:58 PM EDT 04/13/2025 11:59 PM EDT us Kenton Medina MD POINT OF CARE TEST ORDERABLES Fi nal Result Performing Organization Address [facility]/ZIP Co de Phone Number [facility] LAB See Below * (ABNORMAL) POCT Glucose, Fingerstick (04/13/2025 8:08 PM EDT) POC Glucose 111(H) 65 - 99 mg/dL 04/13/2025 8:09 PM EDT Blood specimen / Unknown 04/13/2025 8:08 PM EDT 04/13/2025 8:09 PM EDT us Kenton Medina MD POINT OF CARE TEST ORDERABLES Fi nal Result Performing Organization Address [facility] Phone [facility] LAB See Below * (ABNORMAL) POCT Glucose, Fingerstick (04/13/2025 5:18 PM EDT) POC Glucose 109(H) 65 - 99 mg/dL 04/13/2025 5:18 PM EDT Blood specimen / Unknown 04/13/2025 5:18 PM EDT 04/13/2025 5:19 PM EDT us Kenton Medina MD POINT OF CARE TEST ORDERABLES Fi nal Result Performing Organization Address [facility] Phone Number [facility] LAB See Below * ECG 12 lead (04/13/2025 2:41 PM EDT) Systolic BP 142 mmHg EKG [facility] Diastolic BP 79 mmHg EKG [facility] Ventricular rate 82 BPM EKG [facility] Atrial rate 82 BPM EKG [facility] P-R interval 138 ms EKG [facility] QRS duration 82 ms EKG [facility] Q-T interval 402 ms EKG [facility] QTC calculation (Bazett) 469 ms EKG [facility] P axis 50 degrees EKG [facility] R axis 75 degrees EKG [facility] T axis 63 degrees EKG [facility] 04/13/2025 2:41 PM EDT Narrative EKG [facility] - 04/13/2025 3:38 PM EDT Normal sinus rhythm Normal ECG When compared with ECG of 11-Apr-2025 15:24, No significant change was found Confirmed by Med Concepcion MD ([id number]) on 04/13/2025 3:37:59 PM Procedure Note Med Concepcion MD - 04/13/2025 Normal sinus rhythm Normal ECG When compared with ECG of 11-Apr-2025 15:24, No significant change was found Confirmed by Med Concepcion MD ([id number]) on 04/13/2025 3:37:59 PM us Kenton Medina MD ECG ORDERABLES Final Result Performing Organization Address City/[facility]/ZIP Co de Phone Number EKG [facility] * (ABNORMAL) POCT Glucose, Fingerstick (04/13/2025 11:46 AM EDT) POC Glucose 125(H) 65 - 99 mg/dL 04/13/2025 11:46 AM EDT Blood specimen / Unknown 04/13/2025 11:46 AM EDT 04/13/2025 11:47 AM EDT us Kenton Medina MD POINT OF CARE TEST ORDERABLES Fi nal Result Performing Organization Address [facility] Co de Phone Number HOSPITAL LAB See Below * Phosphorus (STAT) (04/13/2025 9:16 AM EDT) Phosphorus 4.1 2.7 - 4.5 mg/dL 04/13/2025 11:09 AM EDT [facility] Blood Blood specimen / Unknown 04/13/2025 9:16 AM EDT 04/13/2025 10:34 AM EDT Ani Brown [employer]ESSING [employer] ATTENDANT LAB BLOOD ORDERABLES Fin al Result Performing Organization Address [facility] Co de Phone Number [address] [address], [address] [address] * Magnesium (STAT) (04/13/2025 9:16 AM EDT) Magnesium 2.1 1.6 - 2.7 mg/dL 04/13/2025 11:09 AM [facility] Blood Blood specimen / Unknown 04/13/2025 9:16 AM EDT 04/13/2025 10:34 AM EDT us Aniaaron Morelchandler Brown DRESSING ROOM ATTENDANT LAB BLOOD ORDERABLES Fin al Result [address] [address], [address] [address] * (ABNORMAL) Basic Metabolic Panel (STAT) (04/13/2025 9:16 AM EDT) Glucose 116(H) 65 - 99 mg/dL 04/13/2025 11:09 AM [facility] Comment:Fasting: <100 mg/dL, Non-Fasting: <200 mg/dL (ADA 2005) Blood Urea Nitrogen (BUN) 8 8 - 21 mg/dL 04/13/2025 11:09 AM [facility] Creatinine 0.55 0.40 - 1.10 mg/dL 04/13/2025 11:09 AM [facility] eGFR >90 >59 04/13/2025 11:09 AM [facility] Comment:CKD-EPI (2020) in mL /min/1.73 sq meters. Sodium 137 136 - 145 mmol/L 04/13/2025 11:10 AM [facility] Potassium 3.7 3.4 - 5.3 mmol/L 04/13/2025 11:10 AM [facility] Chloride 104 98 - 107 mmol/L 04/13/2025 11:10 AM [facility] CO2 26 22 - 33 mmol/L 04/13/2025 11:09 AM [facility] Anion Gap 7 7 - 17 04/13/2025 11:10 AM [facility] Calcium 7.5(L) 8.7 - 10.5 mg/dL 04/13/2025 11:09 AM [facility] BUN/Creatinine Ratio 15 10.0 - 25.0 Ratio 04/13/2025 11:09 AM EDT [facility] Blood Blood specimen / Unknown 04/13/2025 9:16 AM EDT 04/13/2025 10:34 AM EDT Ani Mami Brown APRN LAB BLOOD ORDERABLES Fin al Result Performing Organization Address [facility]/ZIP Co de Phone Number [address] [address], [address] [address] * (ABNORMAL) POCT Glucose, Fingerstick (04/13/2025 8:48 AM EDT) POC Glucose 102(H) 65 - 99 mg/dL 04/13/2025 8:52 AM EDT Blood specimen / Unknown 04/13/2025 8:48 AM EDT 04/13/2025 8:52 AM EDT Kenton Medina MD POINT OF CARE TEST ORDERABLES Fi nal Result Performing Organization Address [facility] Co de Phone Number HOSPITAL LAB See Below * Vancomycin Level, Random (04/13/2025 7:00 AM EDT) Pathologist [facility] Vancomycin, Random 20 mg/L 04/13/2025 8:15 AM EDT [facility] Comment:No reference range e stablished for random levels. Time of Last Dose Information not given 04/13/2025 6:22 AM EDT [facility] Blood Blood specimen / Unknown 04/13/2025 7:00 AM EDT 04/13/2025 7:41 AM EDT Lucho Donaldson MD LAB BLOOD ORDERABLES Final Re sult Performing Organization Address [facility] Co de Phone Number [address] [address], [address] [address] * POCT Glucose, Fingerstick (04/13/2025 4:15 AM EDT) [facility] POC Glucose 91 65 - 99 mg/dL 04/13/2025 4:16 AM EDT Blood specimen / Unknown 04/13/2025 4:15 AM EDT 04/13/2025 4:16 AM EDT us Kenton Medina MD POINT OF CARE TEST ORDERABLES Fi nal Result HOSPITAL LAB See Below * Phosphorus (04/13/2025 12:32 AM EDT) [facility] Phosphorus 2.8 2.7 - 4.5 mg/dL 04/13/2025 1:21 AM EDT [facility] Blood Blood specimen / Unknown 04/13/2025 12:32 AM EDT 04/13/2025 12:48 AM EDT Sara GARRETT LAB BLOOD ORDERABLES Final Res ult Performing Organization Address [facility] [place] [address], [place] [address] * Magnesium (04/13/2025 12:32 AM EDT) [facility] Magnesium 2.0 1.6 - 2.7 mg/dL 04/13/2025 1:21 AM EDT [facility] Blood Blood specimen / Unknown 04/13/2025 12:32 AM EDT 04/13/2025 12:48 AM EDT Sara GARRETT LAB BLOOD ORDERABLES Final Res ult Performing Organization Address [facility] [place] [address], [place] [address] * (ABNORMAL) COMPLETE BLOOD COUNT, WITHOUT DIFFERENTIAL (04/13/2025 12:32 AM EDT) [facility] White Blood Cell Count 17.4(H) 4.0 - 11.0 Thou/uL 04/13/2025 1:03 AM [facility] Platelet Count 696(H) 150 - 450 Thou/uL 04/13/2025 1:03 AM [facility] Hemoglobin 7.8(L) 11.7 - 15.7 g/dL 04/13/2025 1:03 AM [facility] Hematocrit 23.9(L) 35.0 - 47.0 % 04/13/2025 1:03 AM [facility] Red Blood Cell Count 2.76(L) 4.00 - 5.40 Mil/uL 04/13/2025 1:03 AM [facility] MCV 87 80 - 100 fL 04/13/2025 1:03 AM [facility] MCH 28.3 26.0 - 34.0 pg 04/13/2025 1:03 AM [facility] MCHC 32.6 30.0 - 36.0 g/dL 04/13/2025 1:03 AM [facility] RDW 17.6(H) 11.5 - 14.5 % 04/13/2025 1:03 AM [facility] MPV 9.4 7.5 - 12.5 fL 04/13/2025 1:03 AM [facility] nRBC 0.2(H) 0.0 - 0.1 /100 WBC 04/13/2025 1:03 AM [facility] nRBC, Absolute 0.03(H) 0.00 - 0.02 Thou/uL 04/13/2025 1:03 AM [facility] Blood Blood specimen / Unknown 04/13/2025 12:32 AM EDT 04/13/2025 12:48 AM EDT us Sara GARRETT LAB BLOOD ORDERABLES Final Res ult [address] [address], [address] [address] * (ABNORMAL) Basic Metabolic Panel (04/13/2025 12:32 AM EDT) Glucose 102(H) 65 - 99 mg/dL 04/13/2025 1:21 AM T [facility] Comment:Fasting: <100 mg/dL, Non-Fasting: <200 mg/dL (ADA 2004) Blood Urea Nitrogen (BUN) 10 8 - 21 mg/dL 04/13/2025 1:21 AM [facility] Creatinine 0.58 0.40 - 1.10 mg/dL 04/13/2025 1:21 AM [facility] eGFR >90 >59 04/13/2025 1:21 AM [facility] Comment:CKD-EPI (2020) in mL /min/1.73 sq meters. Sodium 133(L) 136 - 145 mmol/L 04/13/2025 1:21 AM [facility] Potassium 2.8(L) 3.4 - 5.3 mmol/L 04/13/2025 1:21 AM [facility] Chloride 98 98 - 107 mmol/L 04/13/2025 1:21 AM [facility] CO2 27 22 - 33 mmol/L 04/13/2025 1:21 AM [facility] Anion Gap 8 7 - 17 04/13/2025 1:21 AM [facility] Calcium 7.5(L) 8.7 - 10.5 mg/dL 04/13/2025 1:21 AM [facility] BUN/Creatinine Ratio 17 10.0 - 25.0 Ratio 04/13/2025 1:21 AM [facility] Blood Blood specimen / Unknown 04/13/2025 12:32 AM EDT 04/13/2025 12:48 AM EDT us Sara GARRETT LAB BLOOD ORDERABLES Final Res ult [address] [address], [address] [address] * POCT Glucose, Fingerstick (04/13/2025 12:18 AM EDT) POC Glucose 90 65 - 99 mg/dL 04/13/2025 12:19 AM EDT Blood specimen / Unknown 04/13/2025 12:18 AM EDT 04/13/2025 12:19 AM EDT us Kenton Medina MD POINT OF CARE TEST ORDERABLES Fi nal Result Performing Organization Address [facility] LAB See Below * (ABNORMAL) POCT Glucose, Fingerstick (04/12/2025 8:10 PM EDT) POC Glucose 131(H) 65 - 99 mg/dL 04/12/2025 8:14 PM EDT Blood specimen / Unknown 04/12/2025 8:10 PM EDT 04/12/2025 8:14 PM EDT us Kenton Medina MD POINT OF CARE TEST ORDERABLES Fi nal Result Performing Organization [facility] LAB See Below * POCT Glucose, Fingerstick (04/12/2025 3:55 PM EDT) POC Glucose 99 65 - 99 mg/dL 04/12/2025 3:55 PM EDT Blood specimen / Unknown 04/12/2025 3:55 PM EDT 04/12/2025 3:56 PM EDT us Kenton Medina MD POINT OF CARE TEST ORDERABLES Fi nal Result Performing Organization Address [facility] LAB See Below * (ABNORMAL) POCT Glucose, Fingerstick (04/12/2025 11:44 AM EDT) POC Glucose 104(H) 65 - 99 mg/dL 04/12/2025 11:44 AM EDT Blood specimen / Unknown 04/12/2025 11:44 AM EDT 04/12/2025 11:45 AM EDT us Kenton Medina MD POINT OF CARE TEST ORDERABLES Fi nal Result Performing Organization Address [facility]/State/ZIP Co de Phone Number HOSPITAL LAB See Below * (ABNORMAL) POCT Glucose, Fingerstick (04/12/2025 8:50 AM EDT) POC Glucose 106(H) 65 - 99 mg/dL 04/12/2025 8:54 AM EDT Blood specimen / Unknown 04/12/2025 8:50 AM EDT 04/12/2025 8:54 AM EDT us Kenton Medina MD POINT OF CARE TEST ORDERABLES Fi nal Result Performing Organization Address [facility] Co de Phone Number [facility] LAB See Below * POCT Glucose, Fingerstick (04/12/2025 3:51 AM EDT) POC Glucose 95 65 - 99 mg/dL 04/12/2025 3:52 AM EDT Blood specimen / Unknown 04/12/2025 3:51 AM EDT 04/12/2025 3:52 AM EDT us Kenton Medina MD POINT OF CARE TEST ORDERABLES Fi nal Result Performing Organization Address [facility] de Phone Number [facility] LAB See Below * Magnesium (04/12/2025 12:08 AM EDT) Magnesium 2.0 1.6 - 2.7 mg/dL 04/12/2025 1:36 AM EDT [facility] Blood Blood specimen / Unknown 04/12/2025 12:08 AM EDT 04/12/2025 12:49 AM EDT Daniel Palacios PA-C LAB BLOOD ORDERABLES Fin al Result Performing Organization Address [facility] Co de Phone Number [address] [address], [address] [address] * Phosphorus (04/12/2025 12:08 AM EDT) Phosphorus 3.3 2.7 - 4.5 mg/dL 04/12/2025 1:36 AM [facility] Blood Blood specimen / Unknown 04/12/2025 12:08 AM EDT 04/12/2025 12:49 AM EDT Daniel Palacios PA-C LAB BLOOD ORDERABLES Fin al Result [address] [address], [address] [address] * (ABNORMAL) Complete Blood Count, WITHOUT Differential (routine) (04/12/2025 12:08 AM EDT) White Blood Cell Count 17.5(H) 4.0 - 11.0 Thou/uL 04/12/2025 1:13 AM [facility] Platelet Count 474(H) 150 - 450 Thou/uL 04/12/2025 1:13 AM [facility] Hemoglobin 7.4(L) 11.7 - 15.7 g/dL 04/12/2025 1:13 AM [facility] Hematocrit 22.6(L) 35.0 - 47.0 % 04/12/2025 1:13 AM [facility] Red Blood Cell Count 2.60(L) 4.00 - 5.40 Mil/uL 04/12/2025 1:13 AM [facility] MCV 87 80 - 100 fL 04/12/2025 1:13 AM [facility] MCH 28.5 26.0 - 34.0 pg 04/12/2025 1:13 AM [facility] MCHC 32.7 30.0 - 36.0 g/dL 04/12/2025 1:13 AM [facility] RDW 17.1(H) 11.5 - 14.5 % 04/12/2025 1:13 AM [facility] MPV 9.6 7.5 - 12.5 fL 04/12/2025 1:13 AM [facility] nRBC 0.2(H) 0.0 - 0.1 /100 WBC 04/12/2025 1:13 AM [facility] nRBC, Absolute 0.03(H) 0.00 - 0.02 Thou/uL 04/12/2025 1:13 AM [facility] Blood Blood specimen / Unknown 04/12/2025 12:08 AM EDT 04/12/2025 12:49 AM EDT Daniel Palacios PA-C LAB BLOOD ORDERABLES Fin al Result [facility] [address] [place] [address], [address] [address] * (ABNORMAL) Basic Metabolic Panel (04/12/2025 12:08 AM EDT) Glucose 87 65 - 99 mg/dL 04/12/2025 1:36 AM [facility] Comment:Fasting: <100 mg/dL, Non-Fasting: <200 mg/dL (ADA 2005) Blood Urea Nitrogen (BUN) 9 8 - 21 mg/dL 04/12/2025 1:36 AM [facility] Creatinine 0.54 0.40 - 1.10 mg/dL 04/12/2025 1:36 AM [facility] eGFR >90 >59 04/12/2025 1:36 AM [facility] Comment:CKD-EPI (2020) in mL /min/1.73 sq meters. Sodium 141 136 - 145 mmol/L 04/12/2025 1:36 AM [facility] Potassium 3.5 3.4 - 5.3 mmol/L 04/12/2025 1:36 AM [facility] Chloride 105 98 - 107 mmol/L 04/12/2025 1:36 AM [facility] CO2 28 22 - 33 mmol/L 04/12/2025 1:36 AM [facility] Anion Gap 8 7 - 17 04/12/2025 1:36 AM [facility] Calcium 7.1(L) 8.7 - 10.5 mg/dL 04/12/2025 1:36 AM [facility] BUN/Creatinine Ratio 17 10.0 - 25.0 Ratio 04/12/2025 1:36 AM [facility] Blood Blood specimen / Unknown 04/12/2025 12:08 AM EDT 04/12/2025 12:49 AM EDT Daniel Palacios PA-C LAB BLOOD ORDERABLES Fin al Result Performing Organization Address [facility] Co de Phone Number [address] [address], [address] [address] * POCT Glucose, Fingerstick (04/11/2025 11:54 PM EDT) POC Glucose 90 65 - 99 mg/dL 04/11/2025 11:58 PM EDT Blood specimen / Unknown 04/11/2025 11:54 PM EDT 04/11/2025 11:58 PM EDT us Kenton Medina MD POINT OF CARE TEST ORDERABLES Fi nal Result Performing Organization Address [facility] Co de Phone Number [facility] LAB See Below * POCT Glucose, Fingerstick (04/11/2025 8:45 PM EDT) POC Glucose 89 65 - 99 mg/dL 04/11/2025 8:50 PM EDT Blood specimen / Unknown 04/11/2025 8:45 PM EDT 04/11/2025 8:50 PM EDT us Kenton Medina MD POINT OF CARE TEST ORDERABLES Fi nal Result Performing Organization Address [facility] Co de Phone Number [facility] LAB See Below * (ABNORMAL) POCT Glucose, Fingerstick (04/11/2025 4:01 PM EDT) POC Glucose 107(H) 65 - 99 mg/dL 04/11/2025 4:18 PM EDT Blood specimen / Unknown 04/11/2025 4:01 PM EDT 04/11/2025 4:18 PM EDT us Kenton Medina MD POINT OF CARE TEST ORDERABLES Fi nal Result Performing Organization Address [facility] Co de Phone Number HOSPITAL LAB See Below * ECG 12 lead (04/11/2025 3:24 PM EDT) Systolic BP 160 mmHg EKG [facility] Diastolic BP 74 mmHg EKG [facility] Ventricular rate 69 BPM EKG [facility] Atrial rate 69 BPM EKG [facility] P-R interval 146 ms EKG [facility] QRS duration 86 ms EKG [facility] Q-T interval 450 ms EKG [facility] QTC calculation (Bazett) 482 ms EKG [facility] P axis 47 degrees EKG [facility] R axis 64 degrees EKG [facility] T axis 53 degrees EKG [facility] 04/11/2025 3:24 PM EDT Narrative EKG [facility] - 04/11/2025 5:24 PM EDT Normal sinus rhythm Prolonged QT Abnormal ECG When compared with ECG of 07-Apr-2025 10:00, QT has lengthened Confirmed by Mariposa Baumann MD ([id number]) on 04/11/2025 5:24:27 PM Procedure Note Mariposa Baumann MD - 04/11/2025 Normal sinus rhythm Prolonged QT Abnormal ECG When compared with ECG of 07-Apr-2025 10:00, QT has lengthened Confirmed by Mariposa Baumann MD ([id number]) on 04/11/2025 5:24:27 PM Kenton Medina MD ECG ORDERABLES Final Result Performing Organization Address [facility] * XR Abdomen 1 view (04/11/2025 [...] 12:08 PM EDT 04/11/2025 12:14 PM EDT us Kenton Medina MD POINT OF CARE TEST ORDERABLES Fi nal Result HOSPITAL LAB See Below * (ABNORMAL) POCT Glucose, Fingerstick (04/11/2025 8:01 AM EDT) POC Glucose 116(H) 65 - 99 mg/dL 04/11/2025 8:03 AM EDT Blood specimen / Unknown 04/11/2025 8:01 AM EDT 04/11/2025 8:02 AM EDT us Kenton Medina MD POINT OF CARE TEST ORDERABLES Fi nal Result [facility]OSPITAL LAB See Below * (ABNORMAL) Complete Blood Count WITHOUT Differential - in AM (04/11/2025 6:30 AM EDT) White Blood Cell Count 22.1(H) 4.0 - 11.0 Thou/uL 04/11/2025 8:05 AM [facility] Platelet Count 433 150 - 450 Thou/uL 04/11/2025 8:05 AM [facility] Hemoglobin 8.3(L) 11.7 - 15.7 g/dL 04/11/2025 8:05 AM [facility] Hematocrit 25.3(L) 35.0 - 47.0 % 04/11/2025 8:05 AM [facility] Red Blood Cell Count 2.90(L) 4.00 - 5.40 Mil/uL 04/11/2025 8:05 AM [facility] MCV 87 80 - 100 fL 04/11/2025 8:05 AM [facility] Comment:Significant change i n values noted, consider specimen integrity. If results are not expected, correlate clinically and re-collect sample if indicated. MCH 28.6 26.0 - 34.0 pg 04/11/2025 8:05 AM [facility] MCHC 32.8 30.0 - 36.0 g/dL 04/11/2025 8:05 AM [facility] RDW 16.9(H) 11.5 - 14.5 % 04/11/2025 8:05 AM [facility] MPV 9.4 7.5 - 12.5 fL 04/11/2025 8:05 AM [facility] nRBC 0.2(H) 0.0 - 0.1 /100 WBC 04/11/2025 8:05 AM [facility] nRBC, Absolute 0.04(H) 0.00 - 0.02 Thou/uL 04/11/2025 8:05 AM [facility] Blood Blood specimen / Unknown 04/11/2025 6:30 AM EDT 04/11/2025 7:40 AM EDT Daniel Palacios PA-C LAB BLOOD ORDERABLES Fin al Result Performing Organization Address [facility] Co de Phone Number [address] [address], [address] [id number] * Transfuse RBC's:Transfusion Indications: Hemoglobin less than [...] - 10 minutes 04/11/2025 4:07 AM EDT [facility] Reaction Time,Heparinized 4.9(L) 5 - 10 minutes 04/11/2025 4:07 AM EDT [facility] Fibrin Function 1.1 1 - 3 minutes 04/11/2025 4:07 AM EDT [facility] Fibrin Function,Heparini zed 0.8(L) 1 - 3 minutes 04/11/2025 4:07 AM EDT [facility] Angle 74.8(H) 53 - 72 degrees 04/11/2025 4:07 AM EDT [facility] Angle, Heparinized 78.7(H) 53 - 72 degrees 04/11/2025 4:07 AM T [facility] Max Amplitude 72.6(H) 50 - 70 mm 04/11/2025 4:07 AM EDT [facility] Max Amplitude,Heparin ized 74.8(H) 50 - 70 mm 04/11/2025 4:07 AM EDT [facility] %Lysis 30 min 0.0 0 - 8 % 04/11/2025 4:07 AM [facility] %Lysis 30 min,Heparinized 0.6 0 - 8 % 04/11/2025 4:07 AM EDT [facility] Anticoagulant NO ANTI COAGULANT MEDS 04/11/2025 2:18 AM EDT [facility] Blood Blood specimen / Unknown 04/11/2025 2:18 AM EDT 04/11/2025 2:28 AM EDT us Daniel Palacios PA-C LAB BLOOD ORDERABLES Fin al Result Performing Organization Address City/[facility]/[place] [address], [address] [address] * (ABNORMAL) Phosphorus (04/11/2025 12:57 AM EDT) Phosphorus 4.8(H) 2.7 - 4.5 mg/dL 04/11/2025 1:40 AM EDT [facility] Blood Blood specimen / Unknown 04/11/2025 12:57 AM EDT 04/11/2025 1:09 AM EDT Daniel Palacios PA-C LAB BLOOD ORDERABLES [place] [address], [address] [id number] * Magnesium (04/11/2025 12:57 AM EDT) Magnesium 1.9 1.6 - 2.7 mg/dL 04/11/2025 1:40 AM T [facility] Blood Blood specimen / Unknown 04/11/2025 12:57 AM EDT 04/11/2025 1:09 AM EDT Daniel Palacios PA-C LAB BLOOD ORDERABLES Fin al Result [address] [address], [address] [address] * (ABNORMAL) Basic Metabolic Panel (04/11/2025 12:57 AM EDT) Glucose 115(H) 65 - 99 mg/dL 04/11/2025 1:40 AM T [facility] Comment:Fasting: <100 mg/dL, Non-Fasting: <200 mg/dL (ADA 2005) Blood Urea Nitrogen (BUN) 9 8 - 21 mg/dL 04/11/2025 1:40 AM [facility] Creatinine 0.61 0.40 - 1.10 mg/dL 04/11/2025 1:40 AM [facility] eGFR >90 >59 04/11/2025 1:40 AM [facility] Comment:CKD-EPI (2020) in mL /min/1.73 sq meters. Sodium 139 136 - 145 mmol/L 04/11/2025 1:40 AM [facility] Potassium 3.5 3.4 - 5.3 mmol/L 04/11/2025 1:40 AM [facility] Chloride 106 98 - 107 mmol/L 04/11/2025 1:40 AM [facility] CO2 26 22 - 33 mmol/L 04/11/2025 1:40 AM [facility] Anion Gap 7 7 - 17 04/11/2025 1:40 AM [facility] Calcium 7.1(L) 8.7 - 10.5 mg/dL 04/11/2025 1:40 AM [facility] BUN/Creatinine Ratio 15 10.0 - 25.0 Ratio 04/11/2025 1:40 AM [facility] Blood Blood specimen / Unknown 04/11/2025 12:57 AM EDT 04/11/2025 1:09 AM EDT Daniel Palacios PA-C LAB BLOOD ORDERABLES Fin al Result [address] [address], [address] [address] * (ABNORMAL) Complete Blood Count, WITHOUT Differential (routine) (04/11/2025 12:57 AM EDT) White Blood Cell Count 19.5(H) 4.0 - 11.0 Thou/uL 04/11/2025 1:36 AM [facility] Platelet Count 434 150 - 450 Thou/uL 04/11/2025 1:36 AM [facility] Hemoglobin 6.3(L) 11.7 - 15.7 g/dL 04/11/2025 1:36 AM [facility] Hematocrit 18.7(LL) 35.0 - 47.0 % 04/11/2025 1:36 AM [facility] Comment:Test results repeate d. Red Blood Cell Count 2.31(L) 4.00 - 5.40 Mil/uL 04/11/2025 1:36 AM [facility] MCV 82 80 - 100 fL 04/11/2025 1:36 AM [facility] MCH 27.3 26.0 - 34.0 pg 04/11/2025 1:36 AM [facility] MCHC 33.3 30.0 - 36.0 g/dL 04/11/2025 1:36 AM [facility] RDW 16.7(H) 11.5 - 14.5 % 04/11/2025 1:36 AM [facility] MPV 9.4 7.5 - 12.5 fL 04/11/2025 1:36 AM [facility] nRBC 0.2(H) 0.0 - 0.1 /100 WBC 04/11/2025 1:36 AM [facility] nRBC, Absolute 0.04(H) 0.00 - 0.02 Thou/uL 04/11/2025 1:36 AM EDT [facility] Blood Blood specimen / Unknown 04/11/2025 12:57 AM EDT 04/11/2025 1:09 AM EDT Daniel Palacios PA-C LAB BLOOD ORDERABLES Fin al Result Performing Organization Address [facility] Co de Phone Number [address] [address], [address] [address] * (ABNORMAL) POCT Glucose, Fingerstick (04/11/2025 12:31 AM EDT) POC Glucose 103(H) 65 - 99 mg/dL 04/11/2025 12:35 AM EDT Blood specimen / Unknown 04/11/2025 12:31 AM EDT 04/11/2025 12:35 AM EDT us Kenton Medina MD POINT OF CARE TEST ORDERABLES Fi nal Result Performing Organization Address [facility] de Phone Number [facility] See Below * POCT Glucose, Fingerstick (04/10/2025 8:04 PM EDT) POC Glucose 94 65 - 99 mg/dL 04/10/2025 8:04 PM EDT Blood specimen / Unknown 04/10/2025 8:04 PM EDT 04/10/2025 8:05 PM EDT us Kenton Medina MD POINT OF CARE TEST ORDERABLES Fi nal Result Performing Organization Address [facility] de Phone Number [facility] See Below * (ABNORMAL) [...] 4.0 - 11.0 Thou/uL 04/10/2025 5:33 PM [facility] Platelet Count 411 150 - 450 Thou/uL 04/10/2025 5:33 PM [facility] Hemoglobin 7.4(L) 11.7 - 15.7 g/dL 04/10/2025 5:33 PM [facility] Hematocrit 21.8(L) 35.0 - 47.0 % 04/10/2025 5:33 PM [facility] Red Blood Cell Count 2.65(L) 4.00 - 5.40 Mil/uL 04/10/2025 5:33 PM [facility] MCV 82 80 - 100 fL 04/10/2025 5:33 PM [facility] MCH 27.9 26.0 - 34.0 pg 04/10/2025 5:33 PM [facility] MCHC 33.9 30.0 - 36.0 g/dL 04/10/2025 5:33 PM [facility] RDW 16.6(H) 11.5 - 14.5 % 04/10/2025 5:33 PM [facility] MPV 9.4 7.5 - 12.5 fL 04/10/2025 5:33 PM [facility] nRBC 0.3(H) 0.0 - 0.1 /100 WBC 04/10/2025 5:33 PM [facility] nRBC, Absolute 0.06(H) 0.00 - 0.02 Thou/uL 04/10/2025 5:33 PM [facility] Blood Blood specimen / Unknown 04/10/2025 3:13 PM EDT 04/10/2025 5:17 PM EDT Luda Houser APRN LAB BLOOD ORDERABLES Final R esult Performing Organization Address [facility]/ZIP Co de Phone Number [address] [address], [address] [address] * (ABNORMAL) POCT Glucose, Fingerstick (04/10/2025 12:02 PM EDT) Pathologist [facility] POC Glucose 124(H) 65 - 99 mg/dL 04/10/2025 12:02 PM EDT Blood specimen / Unknown 04/10/2025 12:02 PM EDT 04/10/2025 12:03 PM EDT Kenton Medina MD POINT OF CARE TEST ORDERABLES Fi nal Result HOSPITAL LAB See Below * (ABNORMAL) COMPLETE BLOOD COUNT, WITHOUT DIFFERENTIAL (04/10/2025 9:14 AM EDT) [facility] White Blood Cell Count 20.8(H) 4.0 - 11.0 Thou/uL 04/10/2025 9:50 AM [facility] Platelet Count 402 150 - 450 Thou/uL 04/10/2025 9:50 AM [facility] Hemoglobin 8.1(L) 11.7 - 15.7 g/dL 04/10/2025 9:50 AM [facility] Hematocrit 23.9(L) 35.0 - 47.0 % 04/10/2025 9:50 AM [facility] Red Blood Cell Count 2.95(L) 4.00 - 5.40 Mil/uL 04/10/2025 9:50 AM [facility] MCV 81 80 - 100 fL 04/10/2025 9:50 AM [facility] MCH 27.5 26.0 - 34.0 pg 04/10/2025 9:50 AM [facility] MCHC 33.9 30.0 - 36.0 g/dL 04/10/2025 9:50 AM [facility] RDW 17.0(H) 11.5 - 14.5 % 04/10/2025 9:50 AM EDT [facility] MPV 9.6 7.5 - 12.5 fL 04/10/2025 9:50 AM EDT [facility] nRBC 0.3(H) 0.0 - 0.1 /100 WBC 04/10/2025 9:50 AM EDT [facility] nRBC, Absolute 0.07(H) 0.00 - 0.02 Thou/uL 04/10/2025 9:50 AM EDT [facility] Blood Blood specimen / Unknown 04/10/2025 9:14 AM EDT 04/10/2025 9:27 AM EDT Luda Houser DRESSING ROOM ATTENDANT LAB BLOOD ORDERABLES Final R esult Performing Organization Address City/State/[facility] Co de Phone Number [address] [address], [address] [address] * ECHOCARDIOGRAM COMPREHENSIVE (04/10/2025 8:56 AM EDT) [...] 8:01 AM EDT 04/10/2025 8:11 AM EDT Result [facility] Kenton Medina MD POINT OF CARE TEST ORDERABLES Fi nal Result Performing Organization Address [facility] Co de Phone Number HOSPITAL LAB See Below * Transfuse RBC's:Transfusion Indications: Hemoglobin greater than 7 gm/dl or HCT greater than 21% but Acute blood loss greater than 500 ml and symptoms not corrected by volume; Transfusion duration per unit (hrs): 1 (04/10/2025 7:09 AM EDT) Result [facility] Luda Houser APRN BLOOD TRANSFUSION ORDERABLES Final Result * Transfuse RBC's:Transfusion Indications: Hemoglobin greater than 7 gm/dl or HCT greater than 21% but Acute blood loss greater than 500 ml and symptoms not corrected by volume; Transfusion duration per unit (hrs): 1 (04/10/2025 7:09 AM EDT) Result [facility] Luda Houser APRN BLOOD TRANSFUSION ORDERABLES Final Result * (ABNORMAL) POCT Glucose, Fingerstick (04/10/2025 4:10 AM EDT) POC Glucose 150(H) 65 - 99 mg/dL 04/10/2025 4:14 AM EDT Blood specimen / Unknown 04/10/2025 4:10 AM EDT 04/10/2025 4:14 AM EDT Result [facility] us Kenton Medina MD POINT OF CARE TEST ORDERABLES Fi nal Result Performing Organization Address [facility]/ZIP Co de Phone Number [facility] See Below * Prepare RBC's:Prepare in: Units; Number of Units: 1; Transfusion Indications: Hemoglobin greater than 7 gm/dl or HCT greater than 21% but Acute blood loss greater than 500 ml and symptoms not corrected by volume (04/10/2025 3:50 AM EDT) Units Ordered 1 04/10/2025 3:49 AM EDT [facility] 04/10/2025 3:50 AM EDT 04/10/2025 3:51 AM EDT Luda Houser APRN BLOOD BANK PRODUCT ORDERABLE S Final Result Performing Organization [facility] [place] [address], [place] [address] * (ABNORMAL) POCT Glucose, Fingerstick (04/10/2025 12:25 AM EDT) POC Glucose 244(H) 65 - 99 mg/dL 04/10/2025 12:25 AM EDT Blood specimen / Unknown 04/10/2025 12:25 AM EDT 04/10/2025 12:26 AM EDT us Kenton Medina MD POINT OF CARE TEST ORDERABLES Fi nal Result Performing Organization Address [facility] Number [facility] See Below * (ABNORMAL) POCT Glucose, Fingerstick (04/10/2025 12:22 AM EDT) POC Glucose 240(H) 65 - 99 mg/dL 04/10/2025 12:23 AM EDT Blood specimen / Unknown 04/10/2025 12:22 AM EDT 04/10/2025 12:23 AM EDT us Kenton Medina MD POINT OF CARE TEST ORDERABLES Fi nal Result Performing Organization Address [facility] Phone Number HOSPITAL LAB See Below * (ABNORMAL) Phosphorus (04/10/2025 12:06 AM EDT) Phosphorus 5.3(H) 2.7 - 4.5 mg/dL 04/10/2025 1:56 AM EDT [facility] Blood Blood specimen / Unknown 04/10/2025 12:06 AM EDT 04/10/2025 1:03 AM EDT Luda Houser DRESSING ROOM ATTENDANT LAB BLOOD ORDERAB[place] [address], [place] [address] * Magnesium (04/10/2025 12:06 AM EDT) Magnesium 1.9 1.6 - 2.7 mg/dL 04/10/2025 1:56 AM EDT [facility] Blood Blood specimen / Unknown 04/10/2025 12:06 AM EDT 04/10/2025 1:03 AM EDT Luda Houser APRN LAB BLOOD ORDERABLES [facility] [place] [address], [place] [address] * (ABNORMAL) Basic Metabolic Panel (04/10/2025 12:06 AM EDT) Glucose 205(H) 65 - 99 mg/dL 04/10/2025 1:56 AM EDT [facility] Comment:Fasting: <100 mg/dL, Non-Fasting: <200 mg/dL (ADA 2004) Blood Urea Nitrogen (BUN) 9 8 - 21 mg/dL 04/10/2025 1:56 AM EDT [facility] Creatinine 0.54 0.40 - 1.10 mg/dL 04/10/2025 1:56 AM EDT [facility] eGFR >90 >59 04/10/2025 1:56 AM EDT [facility] Comment:CKD-EPI (2020) in mL /min/1.73 sq meters. Sodium 136 136 - 145 mmol/L 04/10/2025 1:56 AM EDT [facility] Potassium 4.3 3.4 - 5.3 mmol/L 04/10/2025 1:56 AM EDT [facility] Chloride 102 98 - 107 mmol/L 04/10/2025 1:56 AM EDT [facility] CO2 25 22 - 33 mmol/L 04/10/2025 1:56 AM EDT [facility] Anion Gap 9 7 - 17 04/10/2025 1:56 AM EDT [facility] Calcium 7.5(L) 8.7 - 10.5 mg/dL 04/10/2025 1:56 AM EDT [facility] BUN/Creatinine Ratio 17 10.0 - 25.0 Ratio 04/10/2025 1:56 AM EDT [facility] Blood Blood specimen / Unknown 04/10/2025 12:06 AM EDT 04/10/2025 1:03 AM EDT Luda Houser DRESSING ROOM ATTENDANT LAB BLOOD ORDERAB[place] [address], [place] [address] * (ABNORMAL) Calcium, Ionized (04/10/2025 12:06 AM EDT) Calcium, Ionized 1.11(L) 1.17 - 1.33 mmol/L 04/10/2025 1:08 AM EDT [facility] Blood Blood specimen / Unknown 04/10/2025 12:06 AM EDT 04/10/2025 1:03 AM EDT Luda Houser DRESSING ROOM ATTENDANT LAB BLOOD ORDERABLES [place] [address], [place] [address] * (ABNORMAL) COMPLETE BLOOD COUNT, WITHOUT DIFFERENTIAL (04/10/2025 12:06 AM EDT) White Blood Cell Count 30.3(HH) 4.0 - 11.0 Thou/uL 04/10/2025 1:40 AM [facility] Comment:Results verified by smear review. Platelet Count 412 150 - 450 Thou/uL 04/10/2025 1:40 AM [facility] Hemoglobin 7.2(L) 11.7 - 15.7 g/dL 04/10/2025 1:40 AM [facility] Hematocrit 21.7(L) 35.0 - 47.0 % 04/10/2025 1:40 AM [facility] Red Blood Cell Count 2.73(L) 4.00 - 5.40 Mil/uL 04/10/2025 1:40 AM [facility] MCV 80 80 - 100 fL 04/10/2025 1:40 AM [facility] MCH 26.4 26.0 - 34.0 pg 04/10/2025 1:40 AM [facility] MCHC 33.2 30.0 - 36.0 g/dL 04/10/2025 1:40 AM [facility] RDW 15.9(H) 11.5 - 14.5 % 04/10/2025 1:40 AM [facility] MPV 9.7 7.5 - 12.5 fL 04/10/2025 1:40 AM [facility] nRBC 0.3(H) 0.0 - 0.1 /100 WBC 04/10/2025 1:40 AM [facility] nRBC, Absolute 0.08(H) 0.00 - 0.02 Thou/uL 04/10/2025 1:40 AM [facility] Blood Blood specimen / Unknown 04/10/2025 12:06 AM EDT 04/10/2025 1:03 AM EDT us Luda Houser DRESSING ROOM ATTENDANT LAB BLOOD ORDERABLES Final R esult [address] [address], [address] [address] * Hemoglobin A1c with Estimated Average Glucose (Routine) (04/10/2025 12:06 AM EDT) Hemoglobin A1C 5.3 <5.7 % 04/10/2025 2:13 AM EDT [facility] Comment: A1c% Interpretation 5.7 - 6.0 Increase risk of diabetes 6.1 - 6.4 Higher risk of diabetes > or = 6.5 Consistent with diabetes Diabetes Care, 33(Supp 1):S1-S61, 2010 Estimated Average Glucose 105 mg/dL 04/10/2025 2:13 AM EDT [facility] Blood Blood specimen / Unknown 04/10/2025 12:06 AM EDT 04/10/2025 1:03 AM EDT Sophia Yarbrough MD LAB BLOOD ORDERAB[place] [address], [place] [address] * Transfuse RBC's:Transfusion Indications: Hemoglobin less than 7 gm/dl or HCT less than 21%; Transfusion duration per unit (hrs): 1 (04/09/2025 10:25 PM EDT) Sophia Yarbrough MD BLOOD TRANSFUSION ORDE RABLES Final Result * Transfuse RBC's:Transfusion Indications: Hemoglobin less than 7 gm/dl or HCT less than 21%; Transfusion duration per unit (hrs): 1 (04/09/2025 10:25 PM EDT) Sophia Yarbrough MD BLOOD TRANSFUSION ORDE RABLES Final Result * CREATINE KINASE (CK) (04/09/2025 9:29 PM EDT) Creatine Kinase (CK) 123 24 - 173 U/L 04/09/2025 10:31 PM EDT [facility] Blood Blood specimen / Unknown 04/09/2025 9:29 PM EDT 04/09/2025 10:07 PM EDT [facility] Morelchandler Brown DRESSING ROOM ATTENDANT LAB BLOOD ORDERABLES Fin al Result Performing Organization Address [facility] Co de Phone Number [address] [address], [address] [address] * (ABNORMAL) POCT Glucose, Fingerstick (04/09/2025 8:05 PM EDT) POC Glucose 111(H) 65 - 99 mg/dL 04/09/2025 8:05 PM EDT Blood specimen / Unknown 04/09/2025 8:05 PM EDT 04/09/2025 8:06 PM EDT Kenton Medina MD POINT OF CARE TEST ORDERABLES Fi nal Result Performing Organization Address City/[facility] Co de Phone Number HOSPITAL LAB See Below * Prepare RBC's:Prepare in: Units; Number of Units: 1; Transfusion Indications: Hemoglobin less than 7 gm/dl or HCT less than 21% (04/09/2025 6:11 PM EDT) Units Ordered 1 04/09/2025 6:12 PM EDT [facility] 04/09/2025 6:1 1 PM EDT 04/10/2025 3:52 AM EDT Sophia Yarbrough MD BLOOD BANK PRODUCT ORD ERABLES Final Result Performing Organization Address [facility] Co de Phone Number [address] [address], [address] [address] * (ABNORMAL) POCT Glucose, Fingerstick (04/09/2025 5:20 [...] - 10 minutes 04/09/2025 7:49 PM EDT [facility] Reaction Time,Heparinized 3.6(L) 5 - 10 minutes 04/09/2025 7:49 PM EDT [facility] Fibrin Function 1.0 1 - 3 minutes 04/09/2025 7:49 PM EDT [facility] Fibrin Function,Heparin ized 0.9(L) 1 - 3 minutes 04/09/2025 7:49 PM EDT [facility] Angle 76.8(H) 53 - 72 degrees 04/09/2025 7:49 PM EDT [facility] Angle, Heparinized 75.8(H) 53 - 72 degrees 04/09/2025 7:49 PM EDT [facility] Max Amplitude 69.6 50 - 70 mm 04/[facility]2025 [facility] Amplitude,Hepari nized 65.1 50 - 70 mm 04/09/2025 7:49 [facility] %Lysis 30 min 0.0 0 - 8 % 04/09/2025 7:49 PM [facility] %Lysis 30 min,Heparinized 1.4 0 - 8 % 04/09/2025 7:49 PM [facility] Anticoagulant SUB Q UNFRACTIONATED HEPARIN 04/09/2025 5:21 PM EDT [facility] Blood Blood specimen / Unknown 04/09/2025 5:20 PM EDT 04/09/2025 5:41 PM EDT Sophia Yarbrough MD LAB BLOOD ORDERABLES F inal Result [address] [address], [address] [address] * (ABNORMAL) Phosphorus (04/09/2025 5:20 PM EDT) Phosphorus 5.2(H) 2.7 - 4.5 mg/dL 04/09/2025 6:26 PM EDT [facility] Blood Blood specimen / Unknown 04/09/2025 5:20 PM EDT 04/09/2025 5:55 PM EDT us Sophia Yarbrough MD LAB BLOOD ORDERABLES F inal Result Performing Organization Address [facility]/[place] [address], [place] [address] * Magnesium (04/09/2025 5:20 PM EDT) Magnesium 1.7 1.6 - 2.7 mg/dL 04/09/2025 6:26 PM EDT [facility] Blood Blood specimen / Unknown 04/09/2025 5:20 PM EDT 04/09/2025 5:55 PM EDT us Sophia Yarbrough MD LAB BLOOD ORDERABLES F inal Result Performing Organization Address [facility] [place] [address], [place] [address] * (ABNORMAL) Basic Metabolic Panel (04/09/2025 5:20 PM EDT) Glucose 126(H) 65 - 99 mg/dL 04/09/2025 6:26 PM EDT [facility] Comment:Fasting: <100 mg/dL, Non-Fasting: <200 mg/dL (ADA 2004) Blood Urea Nitrogen (BUN) 7(L) 8 - 21 mg/dL 04/09/2025 6:26 PM EDT [facility] Creatinine 0.58 0.40 - 1.10 mg/dL 04/09/2025 6:26 PM T [facility] eGFR >90 >59 04/09/2025 6:26 PM T [facility] Comment:CKD-EPI (2020) in mL /min/1.73 sq meters. Sodium 136 136 - 145 mmol/L 04/09/2025 6:26 PM EDT [facility] Potassium 3.9 3.4 - 5.3 mmol/L 04/09/2025 6:26 PM EDT [facility] Chloride 104 98 - 107 mmol/L 04/09/2025 6:26 PM EDT [facility] CO2 26 22 - 33 mmol/L 04/09/2025 6:26 PM EDT [facility] Anion Gap 6(L) 7 - 17 04/09/2025 6:26 PM EDT [facility] Calcium 8.7 8.7 - 10.5 mg/dL 04/09/2025 6:26 PM EDT [facility] BUN/Creatinine Ratio 12 10.0 - 25.0 Ratio 04/09/2025 6:26 PM [facility] Blood Blood specimen / Unknown 04/09/2025 5:20 PM EDT 04/09/2025 5:55 PM EDT Sophia Yarbrough MD LAB BLOOD ORDERABLES [place] [address], [place] [address] * (ABNORMAL) COMPLETE BLOOD COUNT, WITHOUT DIFFERENTIAL (04/09/2025 5:20 PM EDT) White Blood Cell Count 17.1(H) 4.0 - 11.0 Thou/uL 04/09/2025 6:10 PM [facility] Platelet Count 411 150 - 450 Thou/uL 04/09/2025 6:10 PM [facility] Hemoglobin 8.3(L) 11.7 - 15.7 g/dL 04/09/2025 6:10 PM [facility] Hematocrit 26.6(L) 35.0 - 47.0 % 04/09/2025 6:10 PM [facility] Red Blood Cell Count 3.23(L) 4.00 - 5.40 Mil/uL 04/09/2025 6:10 PM [facility] MCV 82 80 - 100 fL 04/09/2025 6:10 PM EDT [facility] MCH 25.7(L) 26.0 - 34.0 pg 04/09/2025 6:10 PM EDT [facility] MCHC 31.2 30.0 - 36.0 g/dL 04/09/2025 6:10 PM EDT [facility] RDW 16.4(H) 11.5 - 14.5 % 04/09/2025 6:10 PM EDT [facility] MPV 9.2 7.5 - 12.5 fL 04/09/2025 6:10 PM EDT [facility] nRBC 0.2(H) 0.0 - 0.1 /100 WBC 04/09/2025 6:10 PM EDT [facility] nRBC, Absolute 0.03(H) 0.00 - 0.02 Thou/uL 04/09/2025 6:10 PM EDT [facility] Blood Blood specimen / Unknown 04/09/2025 5:20 PM EDT 04/09/2025 5:55 PM EDT us Sophia Yarbrough MD LAB BLOOD ORDERAB[place] [address], [place] [address] * LACTIC ACID, PLASMA (04/09/2025 5:20 PM EDT) Lactic Acid 1.4 0.5 - 1.9 mmol/L 04/09/2025 6:25 PM EDT [facility] Blood Blood specimen / Unknown 04/09/2025 5:20 PM EDT 04/09/2025 5:53 PM EDT us Sophia Yarbrough MD LAB BLOOD ORDERABLES [place] [address], [place] [address] * Calcium, Ionized (04/09/2025 5:20 PM EDT) Calcium, Ionized 1.27 1.17 - 1.33 mmol/L 04/09/2025 6:06 PM EDT [facility] Blood Blood specimen / Unknown 04/09/2025 5:20 PM EDT 04/09/2025 5:55 PM EDT Sophia Yarbrough MD LAB BLOOD ORDERABLES F inal Result Performing Organization Address City/[facility]/[place] [address], [place] [address] * (ABNORMAL) CREATINE KINASE (CK) (04/09/2025 5:20 PM EDT) Creatine Kinase (CK) 262(H) 24 - 173 U/L 04/09/2025 6:26 PM EDT [facility] Blood Blood specimen / Unknown 04/09/2025 5:20 PM EDT 04/09/2025 5:55 PM EDT Ani Brown APRN LAB BLOOD ORDERABLES Fin al Result Performing Organization Address [facility] [place] [address], [place] [address] * Transfuse Fresh Frozen Plasma: (04/09/2025 4:36 [...] Units Ordered 1 04/09/2025 4:07 PM EDT [facility] Unit Number [id number] 04/09/2025 4:15 PM EDT [facility] Blood Component Type THAWED PLASMA 04/09/2025 4:15 PM EDT [facility] Unit Division 00 04/09/2025 4:15 PM EDT [facility] Unit Status ISSUED,FINAL 04/10/2025 12:32 AM EDT [facility] Transfusion Status OK TO TRANSFUSE 04/09/2025 4:15 PM EDT [facility] 04/09/2025 4:07 PM EDT 04/09/2025 4:14 PM EDT Олег Busheo BLOOD BANK PRODUCT ORDERABLE S Final Result [place] [address] * Prepare RBC's:Prepare in: Units; Number of Units: 2; Transfusion Indications: Hemoglobin greater than 7 gm/dl or HCT greater than 21% but Acute blood loss greater than 500 ml and symptoms not corrected by volume (04/09/2025 4:07 PM EDT) [facility] Units Ordered 2 04/09/2025 4:06 PM EDT [facility] 04/09/2025 4:07 PM EDT 04/09/2025 4:14 PM EDT Олег Vasquez BLOOD BANK PRODUCT ORDERABLE S Final Result [address] [address], [address] [address] * (ABNORMAL) POCT Glucose, Fingerstick (04/09/2025 12:42 PM EDT) [facility] POC Glucose 136(H) 65 - 99 mg/dL 04/09/2025 12:43 PM EDT Blood specimen / Unknown 04/09/2025 12:42 PM EDT 04/09/2025 12:43 PM EDT us Kenton Medina MD POINT OF CARE TEST ORDERABLES Fi nal Result HOSPITAL LAB See Below * (ABNORMAL) COMPLETE BLOOD COUNT, WITHOUT DIFFERENTIAL (04/09/2025 12:21 PM EDT) White Blood Cell Count 12.4(H) 4.0 - 11.0 Thou/uL 04/09/2025 1:17 PM [facility] Platelet Count 447 150 - 450 Thou/uL 04/09/2025 1:17 PM [facility] Hemoglobin 7.2(L) 11.7 - 15.7 g/dL 04/09/2025 1:17 PM [facility] Hematocrit 22.4(L) 35.0 - 47.0 % 04/09/2025 1:17 PM [facility] Red Blood Cell Count 2.85(L) 4.00 - 5.40 Mil/uL 04/09/2025 1:17 PM [facility] MCV 79(L) 80 - 100 fL 04/09/2025 1:17 PM [facility] MCH 25.3(L) 26.0 - 34.0 pg 04/09/2025 1:17 PM [facility] MCHC 32.1 30.0 - 36.0 g/dL 04/09/2025 1:17 PM [facility] RDW 16.7(H) 11.5 - 14.5 % 04/09/2025 1:17 PM [facility] MPV 9.1 7.5 - 12.5 fL 04/09/2025 1:17 PM [facility] nRBC 0.2(H) 0.0 - 0.1 /100 WBC 04/09/2025 1:17 PM [facility] nRBC, Absolute 0.03(H) 0.00 - 0.02 Thou/uL 04/09/2025 1:17 PM [facility] Blood Blood specimen / Unknown 04/09/2025 12:21 PM EDT 04/09/2025 12:53 PM EDT us Sophia Yarbrough MD LAB BLOOD ORDERABLES F inal Result Performing Organization Address City/[facility]/ZIP Co de Phone Number [address] [address], [address] [id number] * Phosphorus (04/09/2025 12:21 PM EDT) Phosphorus 3.7 2.7 - 4.5 mg/dL 04/09/2025 2:11 PM EDT [facility] Blood Blood specimen / Unknown 04/09/2025 12:21 PM EDT 04/09/2025 12:53 PM EDT us Sophia Yarbrough MD LAB BLOOD ORDERABLES F inal Result Performing Organization Address [facility] Co de Phone Number [address] [address], [address] [address] * Magnesium (04/09/2025 12:21 PM EDT) Magnesium 1.9 1.6 - 2.7 mg/dL 04/09/2025 2:11 PM EDT [facility] Blood Blood specimen / Unknown 04/09/2025 12:21 PM EDT 04/09/2025 12:53 PM EDT us Sophia Yarbrough MD LAB BLOOD ORDERABLES F inal Result Performing Organization Address City/[facility]/ZIP Co de Phone Number [address] [address], [address] [address] * (ABNORMAL) Basic Metabolic Panel (04/09/2025 12:21 PM EDT) Glucose 105(H) 65 - 99 mg/dL 04/09/2025 2:11 PM EDT [facility] Comment:Fasting: <100 mg/dL, Non-Fasting: <200 mg/dL (ADA 2005) Blood Urea Nitrogen (BUN) 9 8 - 21 mg/dL 04/09/2025 2:11 PM EDT [facility] Creatinine 0.63 0.40 - 1.10 mg/dL 04/09/2025 2:11 PM EDT [facility] eGFR >90 >59 04/09/2025 2:11 PM T [facility] Comment:CKD-EPI (2020) in mL /min/1.73 sq meters. Sodium 145 136 - 145 mmol/L 04/09/2025 2:11 PM EDT [facility] Potassium 3.8 3.4 - 5.3 mmol/L 04/09/2025 2:11 PM EDT [facility] Chloride 105 98 - 107 mmol/L 04/09/2025 2:11 PM EDT [facility] CO2 29 22 - 33 mmol/L 04/09/2025 2:11 PM EDT [facility] Anion Gap 11 7 - 17 04/09/2025 2:11 PM T [facility] Calcium 7.5(L) 8.7 - 10.5 mg/dL 04/09/2025 2:11 PM T [facility] BUN/Creatinine Ratio 14 10.0 - 25.0 Ratio 04/09/2025 2:11 PM EDT [facility] Blood Blood specimen / Unknown 04/09/2025 12:21 PM EDT 04/09/2025 12:53 PM EDT Sophia Yarbrough MD LAB BLOOD ORDERAB[place] [address], [place] [address] * POCT Glucose, Fingerstick (04/09/2025 11:45 AM EDT) POC Glucose 69 65 - 99 mg/dL 04/09/2025 11:46 AM EDT Blood specimen / Unknown 04/09/2025 11:45 AM EDT 04/09/2025 11:46 AM EDT Kenton Medina MD POINT OF CARE TEST ORDERABLES Fi nal Result HOSPITAL LAB See Below * Blood Culture (04/09/2025 11:10 AM EDT) Culture Sterile after 5 days 04/14/2025 7:08 AM EDT [facility] Blood Blood specimen / Unknown 04/09/2025 11:10 AM EDT 04/09/2025 12:05 PM EDT Comment:Blood us Anisa Perez MD LAB BLOOD ORDERABLES Final Resu lt Performing Organization Address City/[facility]/ZIP Co de Phone Number [facility] [address] [place] [address], * CREATINE KINASE (CK) (04/09/2025 10:25 AM EDT) Creatine Kinase (CK) 91 24 - 173 U/L 04/09/2025 12:23 PM EDT [facility] Blood Blood specimen / Unknown 04/09/2025 10:25 AM EDT 04/09/2025 11:10 AM EDT us Ani Mami Brown DRESSING ROOM ATTENDANT LAB BLOOD ORDERABLES Fin al Result Performing Organization Address City/[facility]/[place] [address], [place] [address] * Type and Screen (04/09/2025 10:20 AM EDT) ABO/Rh A POSITIVE 04/09/2025 12:20 PM EDT [facility] Antibody Screen NEGATIVE 04/09/2025 12:20 PM EDT [facility] Specimen Expiration 04/12/2025 04/09/2025 12:20 PM EDT [facility] Blood Bank Comment Second Sample needed for Blood Transfusion 04/09/2025 12:20 PM EDT [facility] Unit Number [id number] 04/09/2025 2:44 PM EDT [facility] Blood Component Type LEUKOREDUCED RED CELLS 04/09/2025 2:44 PM EDT [facility] Unit Division 00 04/09/2025 2:44 PM EDT [facility] Unit Status ISSUED,FINAL 04/10/2025 12:32 AM EDT [facility] Transfusion Status OK TO TRANSFUSE 04/09/2025 2:44 PM EDT [facility] Crossmatch Result Electronically Compatible 04/09/2025 2:44 PM EDT [facility] Unit Number [id number] 04/09/2025 2:44 PM EDT [facility] Blood Component Type LEUKOREDUCED RED CELLS 04/09/2025 2:44 PM EDT [facility] Unit Division 00 04/09/2025 2:44 PM EDT [facility] Unit Status ISSUED,FINAL 04/10/2025 12:32 AM EDT [facility] Transfusion Status OK TO TRANSFUSE 04/09/2025 2:44 PM EDT [facility] Crossmatch Result Electronically Compatible 04/09/2025 2:44 PM EDT [facility] Unit Number [id number] 04/09/2025 4:17 PM T [facility] Blood Component Type LEUKOREDUCED RED CELLS 04/09/2025 4:17 PM EDT [facility] Unit Division 00 04/09/2025 4:17 PM T [facility] Unit Status ISSUED,FINAL 04/10/2025 12:32 AM [facility] Transfusion Status OK TO TRANSFUSE 04/09/2025 4:17 PM EDT [facility] Crossmatch Result Electronically Compatible 04/09/2025 4:17 PM EDT [facility] Unit Number [id number] 04/09/2025 4:17 PM EDT [facility] Blood Component Type LEUKOREDUCED RED CELLS 04/09/2025 4:17 PM EDT [facility] Unit Division 00 04/09/2025 4:17 PM T [facility] Unit Status ISSUED,FINAL 04/11/2025 12:30 AM [facility] Transfusion Status OK TO TRANSFUSE 04/09[facility]25 [facility] Result Electronically Compatible 04/09/2025 4:17 PM EDT [facility] Unit Number [id number] 04/11/2025 1:43 AM EDT [facility] Blood Component Type LEUKOREDUCED RED CELLS 04/11/2025 1:43 AM EDT [facility] Unit Division 00 04/11/2025 1:43 AM EDT [facility] Unit Status ISSUED,FINAL 04/12/2025 12:17 AM EDT [facility] Transfusion Status OK TO TRANSFUSE 04/11/2025 1:43 AM EDT [facility] Crossmatch Result Electronically Compatible 04/11/2025 1:43 AM EDT [facility] Blood Blood specimen / Unknown 04/09/2025 10:20 AM EDT 04/09/2025 11:11 AM EDT Comment:Blood us Sophia Yarbrough MD BLOOD BANK TEST ORDERA BLES Final Result Performing Organization Address City/State/[facility] Co de Phone Number [place] [address] * Prepare RBC's:Prepare in: Units; Number of Units: 2; Transfusion Indications: Hemoglobin less than 7 gm/dl or HCT less than 21% (04/09/2025 10:19 AM EDT) Units Ordered 2 04/09/2025 10:19 AM EDT [facility] 04/09/2025 10:1 9 AM EDT 04/09/2025 4:19 PM EDT us Sophia Yarbrough MD BLOOD BANK PRODUCT ORD [place] [address], [place] [address] * POCT Glucose, Fingerstick (04/09/2025 7:59 AM EDT) POC Glucose 74 65 - 99 mg/dL 04/09/2025 8:20 AM EDT Blood specimen / Unknown 04/09/2025 7:59 AM EDT 04/09/2025 8:19 AM EDT us Kenton Medina MD POINT OF CARE TEST ORDERABLES Fi nal Result Performing Organization Address [facility]/State/ZIP Co de Phone Number [facility] See Below * POCT Glucose, Fingerstick (04/09/2025 3:45 AM EDT) POC Glucose 78 65 - 99 mg/dL 04/09/2025 3:46 AM EDT Blood specimen / Unknown 04/09/2025 3:45 AM EDT 04/09/2025 3:46 AM EDT us Kenton Medina MD POINT OF CARE TEST ORDERABLES Fi nal Result Performing Organization Address [facility] Phone Number [facility] See Below * CREATINE KINASE (CK) (04/09/2025 3:24 AM EDT) Pathologist [facility] Creatine Kinase (CK) 97 24 - 173 U/L 04/09/2025 4:53 AM EDT [facility] Blood Blood specimen / Unknown 04/09/2025 3:24 AM EDT 04/09/2025 4:06 AM EDT Ani Brown DRESSING ROOM ATTENDANT LAB BLOOD ORDERABLES Fin al Result Performing Organization Address [facility] [place] [address], [address] [address] * Magnesium (04/09/2025 3:24 AM EDT) Pathologist [facility] Magnesium 2.1 1.6 - 2.7 mg/dL 04/09/2025 4:53 AM EDT [facility] Blood Blood specimen / Unknown 04/09/2025 3:24 AM EDT 04/09/2025 4:06 AM EDT Ani Brown DRESSING ROOM ATTENDANT LAB BLOOD ORDERABLES Fin al Result Performing Organization Address [facility] [place] [address], [address] [address] * Phosphorus (04/09/2025 3:24 AM EDT) Phosphorus 3.7 2.7 - 4.5 mg/dL 04/09/2025 4:53 AM [facility] Blood Blood specimen / Unknown 04/09/2025 3:24 AM EDT 04/09/2025 4:06 AM EDT Ani Brown DRESSING ROOM ATTENDANT LAB BLOOD ORDERABLES Fin al Result [address] [address], [address] [address] * (ABNORMAL) COMPLETE BLOOD COUNT, WITHOUT DIFFERENTIAL (04/09/2025 3:24 AM EDT) White Blood Cell Count 12.3(H) 4.0 - 11.0 Thou/uL 04/09/2025 4:23 AM [facility] Platelet Count 418 150 - 450 Thou/uL 04/09/2025 4:23 AM [facility] Hemoglobin 7.0(L) 11.7 - 15.7 g/dL 04/09/2025 4:23 AM [facility] Hematocrit 21.7(L) 35.0 - 47.0 % 04/09/2025 4:23 AM [facility] Red Blood Cell Count 2.80(L) 4.00 - 5.40 Mil/uL 04/09/2025 4:23 AM [facility] MCV 78(L) 80 - 100 fL 04/09/2025 4:23 AM [facility] MCH 25.0(L) 26.0 - 34.0 pg 04/09/2025 4:23 AM [facility] MCHC 32.3 30.0 - 36.0 g/dL 04/09/2025 4:23 AM [facility] RDW 16.1(H) 11.5 - 14.5 % 04/09/2025 4:23 AM [facility] MPV 9.4 7.5 - 12.5 fL 04/09/2025 4:23 AM [facility] Blood Blood specimen / Unknown 04/09/2025 3:24 AM EDT 04/09/2025 4:06 AM EDT Ani Brown DRESSING ROOM ATTENDANT LAB BLOOD ORDERABLES Fin al Result [address] [address], [facility] [address] [place] [address] * (ABNORMAL) Basic Metabolic Panel (04/09/2025 3:24 AM EDT) Glucose 77 65 - 99 mg/dL 04/09/2025 4:53 AM [facility] Comment:Fasting: <100 mg/dL, Non-Fasting: <200 mg/dL (ADA 2004) Blood Urea Nitrogen (BUN) 10 8 - 21 mg/dL 04/09/2025 4:53 AM [facility] Creatinine 0.66 0.40 - 1.10 mg/dL 04/09/2025 4:53 AM [facility] eGFR >90 >59 04/09/2025 4:53 AM [facility] Comment:CKD-EPI (2020) in mL /min/1.73 sq meters. Sodium 141 136 - 145 mmol/L 04/09/2025 4:53 AM [facility] Potassium 3.4 3.4 - 5.3 mmol/L 04/09/2025 4:53 AM [facility] Chloride 105 98 - 107 mmol/L 04/09/2025 4:53 AM [facility] CO2 29 22 - 33 mmol/L 04/09/2025 4:53 AM [facility] Anion Gap 7 7 - 17 04/09/2025 4:53 AM [facility] Calcium 7.4(L) 8.7 - 10.5 mg/dL 04/09/2025 4:53 AM [facility] BUN/Creatinine Ratio 15 10.0 - 25.0 Ratio 04/09/2025 4:53 AM [facility] Blood Blood specimen / Unknown 04/09/2025 3:24 AM EDT 04/09/2025 4:06 AM EDT us Ani Bolaños Kevin HDZ LAB BLOOD ORDERABLES Fin al Result Performing Organization Address [facility] Co de Phone Number [facility] [address] [place] [address], [place] [facility] [address] [place] [address] * Blood Culture (04/09/2025 1:31 AM EDT) Culture Sterile after 5 days 04/14/2025 7:08 AM EDT [facility] Blood Blood specimen / Unknown 04/09/2025 1:31 AM EDT 04/09/2025 2:29 AM EDT Comment:Blood us Anisa Perez MD LAB BLOOD ORDERABLES Final Resu lt Performing Organization Address [facility] Co de Phone Number [facility] [address] [place] [address], * (ABNORMAL) POCT Glucose, Fingerstick (04/09/2025 12:36 AM EDT) POC Glucose 100(H) 65 - 99 mg/dL 04/09/2025 12:36 AM EDT Blood specimen / Unknown 04/09/2025 12:36 AM EDT 04/09/2025 12:37 AM EDT us Kenton Medina MD POINT OF CARE TEST ORDERABLES Fi nal Result Performing Organization Address City/[facility] Co de Phone Number HOSPITAL LAB See [...] IJ central venous catheter tip beyond the [id number]. The visualized orbits and paranasal air sinuses [...] IJ central venous catheter tip beyond the [id number]. The visualized orbits and paranasal air sinuses [...] chest wall abscess/soft tissue infection. Ani Brown DRESSING ROOM ATTENDANT IMG CT ORDERABLES Final Result * CT [...] the right lateral abdominal wall. us Ani Mamichandler Brown DRESSING ROOM ATTENDANT IMG CT ORDERABLES Edited Result - Final * POCT Glucose, Fingerstick (04/08/2025 10:18 PM EDT) POC Glucose 92 65 - 99 mg/dL 04/08/2025 10:18 PM EDT Blood specimen / Unknown 04/08/2025 10:18 PM EDT 04/08/2025 10:19 PM EDT us Kenton Medina MD POINT [...] stool burden. Interpreted by: Emilee Casas MD Website/Blog Editor I personally reviewed the images and the [...] stool burden. Interpreted by: Emilee Casas MD Website/Blog Editor I personally reviewed the images and the [...] stool burden. Interpreted by: Emilee Casas MD Website/Blog Editor I personally reviewed the images and the [...] stool burden. Interpreted by: Emilee Casas MD Website/Blog Editor I personally reviewed the images and the resident's preliminary report and AGREE with the report as it is now presented ([id number]). Ani Morelchandler Brown APRN IMG DIAGNOSTIC IMAGING O RDERABLES Final Result * (ABNORMAL) Triglycerides (04/08/2025 9:15 PM EDT) Triglycerides 234(H) <150 mg/dL 04/08/2025 10:46 PM EDT [facility] Blood Blood specimen / Unknown 04/08/2025 9:15 PM EDT 04/08/2025 10:05 PM EDT Ani Bolaños Kevin HDZ LAB BLOOD ORDERABLES Fin al Result [address] [address], [address] [address] * CREATINE KINASE (CK) (04/08/2025 9:15 PM EDT) Creatine Kinase (CK) 138 24 - 173 U/L 04/08/2025 10:46 PM EDT [facility] Blood Blood specimen / Unknown 04/08/2025 9:15 PM EDT 04/08/2025 10:05 PM EDT Ani Bolaños Kevin DON LAB BLOOD ORDERABLES Fin al Result Performing Organization Address City/[facility]/ZIP Co de Phone Number [address] [address], [address] [address] * (ABNORMAL) Complete Blood Count WITHOUT Differential - STAT (04/08/2025 9:15 PM EDT) Pathologist [facility] White Blood Cell Count 9.4 4.0 - 11.0 Thou/uL 04/08/2025 10:24 PM EDT [facility] Platelet Count 390 150 - 450 Thou/uL 04/08/2025 10:24 PM [facility] Hemoglobin 7.2(L) 11.7 - 15.7 g/dL 04/08/2025 10:24 PM [facility] Hematocrit 22.4(L) 35.0 - 47.0 % 04/08/2025 10:24 PM [facility] Red Blood Cell Count 2.89(L) 4.00 - 5.40 Mil/uL 04/08/2025 10:24 PM [facility] MCV 78(L) 80 - 100 fL 04/08/2025 10:24 PM [facility] MCH 24.9(L) 26.0 - 34.0 pg 04/08/2025 10:24 PM [facility] MCHC 32.1 30.0 - 36.0 g/dL 04/08/2025 10:24 PM [facility] RDW 16.4(H) 11.5 - 14.5 % 04/08/2025 10:24 PM [facility] MPV 9.4 7.5 - 12.5 fL 04/08/2025 10:24 PM [facility] Blood Blood specimen / Unknown 04/08/2025 9:15 PM EDT 04/08/2025 10:05 PM EDT Ani Brown DRESSING ROOM ATTENDANT LAB BLOOD ORDERABLES Fin al Result [address] [address], [address] [address] * (ABNORMAL) Calcium, Ionized (04/08/2025 9:15 PM EDT) Pathologist [facility] Calcium, Ionized 1.05(L) 1.17 - 1.33 mmol/L 04/08/2025 10:18 PM EDT [facility] Blood Blood specimen / Unknown 04/08/2025 9:15 PM EDT 04/08/2025 10:05 PM EDT Ani Brown DRESSING ROOM ATTENDANT LAB BLOOD ORDERABLES Fin al Result Performing Organization Address [facility] Co de Phone Number [address] [address], [address] [address] * Phosphorus (04/08/2025 9:15 PM EDT) Phosphorus 3.5 2.7 - 4.5 mg/dL 04/08/2025 10:46 PM EDT [facility] Blood Blood specimen / Unknown 04/08/2025 9:15 PM EDT 04/08/2025 10:05 PM EDT Ani Brown DRESSING ROOM ATTENDANT LAB BLOOD ORDERABLES Fin al Result Performing Organization Address [facility] Co de Phone Number [address] [address], [address] [address] * Magnesium (04/08/2025 9:15 PM EDT) Magnesium 2.1 1.6 - 2.7 mg/dL 04/08/2025 10:46 PM EDT [facility] Blood Blood specimen / Unknown 04/08/2025 9:15 PM EDT 04/08/2025 10:05 PM EDT Ani Brown DRESSING ROOM ATTENDANT LAB BLOOD ORDERABLES Fin al Result Performing Organization Address [facility] Co de Phone Number [address] [address], [address] [address] * LACTIC ACID, PLASMA (04/08/2025 9:15 PM EDT) Lactic Acid 1.1 0.5 - 1.9 mmol/L 04/08/2025 10:36 PM EDT [facility] Blood Blood specimen / Unknown 04/08/2025 9:15 PM EDT 04/08/2025 10:05 PM EDT us Ani Brown DRESSING ROOM ATTENDANT LAB BLOOD ORDERABLES Fin al Result [address] [address], [facility] [address] [place] [address] * (ABNORMAL) Basic Metabolic Panel (04/08/2025 9:15 PM EDT) [facility] Glucose 83 65 - 99 mg/dL 04/08/2025 10:46 PM EDT [facility] Comment:Fasting: <100 mg/dL, Non-Fasting: <200 mg/dL (ADA 2004) Blood Urea Nitrogen (BUN) 10 8 - 21 mg/dL 04/08/2025 10:46 PM EDT [facility] Creatinine 0.58 0.40 - 1.10 mg/dL 04/08/2025 10:46 PM T [facility] eGFR >90 >59 04/08/2025 10:46 PM T [facility] Comment:CKD-EPI (2020) in mL /min/1.73 sq meters. Sodium 138 136 - 145 mmol/L 04/08/2025 10:46 PM [facility] Potassium 3.6 3.4 - 5.3 mmol/L 04/08/2025 10:46 PM [facility] Chloride 102 98 - 107 mmol/L 04/08/2025 10:46 PM EDT [facility] CO2 26 22 - 33 mmol/L 04/08/2025 10:46 PM T [facility] Anion Gap 10 7 - 17 04/08/2025 10:46 PM [facility] Calcium 7.1(L) 8.7 - 10.5 mg/dL 04/08/2025 10:46 PM [facility] BUN/Creatinine Ratio 17 10.0 - 25.0 Ratio 04/08/2025 10:46 PM T [facility] Blood Blood specimen / Unknown 04/08/2025 9:15 PM EDT 04/08/2025 10:05 PM EDT Ani Bolaños Kevin HDZ LAB BLOOD ORDERABLES Fin al Result Performing Organization Address [facility] [place] [address], [place] [address] * (ABNORMAL) C-REACTIVE PROTEIN (04/08/2025 2:05 PM EDT) C-Reactive Protein 11.38(H) 0 - 0.49 mg/dL 04/08/2025 4:11 PM EDT [facility] Blood Blood specimen / Unknown 04/08/2025 2:05 PM EDT 04/08/2025 3:16 PM EDT Anisa Perez MD LAB BLOOD ORDERABLES Final Resu lt Performing Organization Address [facility] [place] [address], [address] [address] * (ABNORMAL) Erythrocyte Sedimentation Rate (ESR) (04/08/2025 2:05 PM EDT) Erythrocyte Sediment Rate (ESR) 27(H) <20 MM/HR 04/08/2025 3:47 PM EDT [facility] Blood Blood specimen / Unknown 04/08/2025 2:05 PM EDT 04/08/2025 3:16 PM EDT Anisa Perez MD LAB BLOOD ORDERABLES Final Resu lt Performing Organization Address [facility]/ZIP Co de Phone Number [address] [address], [address] [address] * Vancomycin Level, Random (04/08/2025 2:05 PM EDT) Vancomycin, Random 17 mg/L 04/08/2025 4:12 PM EDT [facility] Comment:No reference range e stablished for random levels. Time of Last Dose Information not given 04/08/2025 2:06 PM EDT [facility] Blood Blood specimen / Unknown 04/08/2025 2:05 PM EDT 04/08/2025 3:16 PM EDT Db Lynn MD LAB BLOOD ORDERABLES Nurys l Result Performing Organization Address [facility]/ZIP Co de Phone Number [address] [address], [address] [address] * (ABNORMAL) Hepatitis Panel, Acute (04/08/2025 8:49 AM EDT) Hepatitis A Antibody IgM Nonreactive Nonreactive 04/09/2025 12:07 PM EDT [facility] Hepatitis B Core Antibody IgM Nonreactive Nonreactive 04/09/2025 12:07 PM EDT [facility] Hepatitis B Surface Ag Screen Nonreactive Nonreactive 04/09/2025 12:07 PM EDT [facility] Hepatitis C Antibody Reactive(A) Nonreactive 04/09/2025 12:07 PM EDT [facility] Comment:Presumptive evidence of antibodies to HCV. Hepatitis C Viral Load, Quantitative results to follow. Hepatitis Interpretation: These results indicate Hepatitis C infection. 04/09/2025 12:07 PM EDT [facility] Blood Blood specimen / Unknown 04/08/2025 8:49 AM EDT 04/08/2025 9:29 AM EDT us Daisy Galdamez PAAaron LAB BLOOD ORDERABLES Final Re sult [facility] [address] [place] [address], [place] * HIV 1/2 Ag/Ab CMIA Reflex to Confirmation (04/08/2025 8:49 AM EDT) HIV 1/2 Ag/Ab CMIA Nonreactive Nonreactive 04/09/2025 12:07 PM EDT [facility] Comment: Results show no [...] PA-C LAB BLOOD ORDERABLES Final Re sult [facility] [address] [place] [address], * Phosphorus (04/08/2025 5:30 AM EDT) Phosphorus 3.5 2.7 - 4.5 mg/dL 04/08/2025 6:30 AM EDT [facility] Blood Blood specimen / Unknown 04/08/2025 5:30 AM EDT 04/08/2025 5:54 AM EDT Db Lynn MD LAB BLOOD ORDERABLES Nurys l Result Performing Organization Address [facility] [place] [address], [address] [address] * Magnesium (04/08/2025 5:30 AM EDT) Magnesium 2.1 1.6 - 2.7 mg/dL 04/08/2025 6:30 AM EDT [facility] Blood Blood specimen / Unknown 04/08/2025 5:30 AM EDT 04/08/2025 5:54 AM EDT Db Lynn MD LAB BLOOD ORDERABLES Nurys l Result Performing Organization Address [facility] Co de Phone Number [address] [address], [address] [address] * (ABNORMAL) Basic Metabolic Panel (Early AM) (04/08/2025 5:30 AM EDT) Glucose 127(H) 65 - 99 mg/dL 04/08/2025 6:30 AM T [facility] Comment:Fasting: <100 mg/dL, Non-Fasting: <200 mg/dL (ADA 2004) Blood Urea Nitrogen (BUN) 10 8 - 21 mg/dL 04/08/2025 6:30 AM [facility] Creatinine 0.51 0.40 - 1.10 mg/dL 04/08/2025 6:30 AM [facility] eGFR >90 >59 04/08/2025 6:30 AM [facility] Comment:CKD-EPI (2020) in mL /min/1.73 sq meters. Sodium 140 136 - 145 mmol/L 04/08/2025 6:30 AM [facility] Potassium 3.7 3.4 - 5.3 mmol/L 04/08/2025 6:30 AM [facility] Chloride 101 98 - 107 mmol/L 04/08/2025 6:30 AM [facility] CO2 31 22 - 33 mmol/L 04/08/2025 6:30 AM [facility] Anion Gap 8 7 - 17 04/08/2025 6:30 AM [facility] Calcium 7.0(L) 8.7 - 10.5 mg/dL 04/08/2025 6:30 AM [facility] BUN/Creatinine Ratio 20 10.0 - 25.0 Ratio 04/08/2025 6:30 AM [facility] Blood Blood specimen / Unknown 04/08/2025 5:30 AM EDT 04/08/2025 5:54 AM EDT us Db Lynn MD LAB BLOOD ORDERABLES Nurys l Result [address] [address], [address] [address] * (ABNORMAL) Complete Blood Count WITHOUT Differential - Early AM (04/08/2025 5:30 AM EDT) White Blood Cell Count 15.0(H) 4.0 - 11.0 Thou/uL 04/08/2025 6:07 AM [facility] Platelet Count 392 150 - 450 Thou/uL 04/08/2025 6:07 AM [facility] Hemoglobin 8.0(L) 11.7 - 15.7 g/dL 04/08/2025 6:07 AM [facility] Hematocrit 25.1(L) 35.0 - 47.0 % 04/08/2025 6:07 AM [facility] Red Blood Cell Count 3.30(L) 4.00 - 5.40 Mil/uL 04/08/2025 6:07 AM [facility] MCV 76(L) 80 - 100 fL 04/08/2025 6:07 AM [facility] MCH 24.2(L) 26.0 - 34.0 pg 04/08/2025 6:07 AM [facility] MCHC 31.9 30.0 - 36.0 g/dL 04/08/2025 6:07 AM [facility] RDW 15.9(H) 11.5 - 14.5 % 04/08/2025 6:07 AM [facility] MPV 9.6 7.5 - 12.5 fL 04/08/2025 6:07 AM [facility] Blood Blood specimen / Unknown 04/08/2025 5:30 AM EDT 04/08/2025 5:54 AM EDT Db Lynn MD LAB BLOOD ORDERABLES Nurys charles Result [address] [address], [address] [address] * XR Chest 1 view-Portable (04/07/2025 7:47 PM EDT) Anatomical Region Laterality Modality Chest Computed Radiogr aphy 04/07/2025 6:42 PM EDT Impressions 04/08/2025 5:12 AM EDT 1. Right IJ CVC projects over the cavoatrial junction. No postprocedural pneumothorax. 2. Subsegmental atelectasis in the right lung base. 3. Possible trace right pleural effusion. Interpreted by: Emilee Casas MD Website/Blog Editor I personally reviewed the images and the [...] pleural effusion. Interpreted by: Emilee Casas MD Website/Blog Editor I personally reviewed the images and the resident's preliminary report and AGREE with the report as it is now presented ([id number]). Ham Whitehead MD [facility] ORD ERABLES Final Result * (ABNORMAL) Tissue Culture (aerobic, anaerobic + Gram stain) (04/07/2025 3:47 PM EDT) Gram stain suggestive of Many neutrophils Red blood cells Gram positive cocci 04/07/2025 10:06 PM EDT [facility] Culture Methicillin Resistant Staph aureus (MRSA)(A) 04/14/2025 9:39 AM EDT [facility] Culture No anaerobes isolated after 7 days 04/14/2025 9:39 AM EDT [facility] Tissue (Arm, Upper right) [...] OR DERABLES Final Result Performing Organization Address City/State/[facility] Co de Phone Number [facility] [address] [place] [address], * (ABNORMAL) Aerobic culture (Gram stain included) (04/07/2025 3:02 PM EDT) Gram stain suggestive of Many neutrophils Few squamous cells Red blood cells Gram positive cocci 04/07/2025 5:53 PM EDT [facility] Culture Methicillin Resistant Staph aureus (MRSA) Susceptibility of the same isolate identification, from the same apparent body site is only performed once per 5 calendar days. See susceptibilities reported on specimen collected 04/07/2025 (A) 04/09/2025 1:12 PM EDT [facility] Aspirate, Abscess (Arm, Upper right) 04/07/2025 3:02 PM EDT Db Lynn MD MICROBIOLOGY - GENERAL OR DERABLES Final Result [facility] [address] [place] [address], [facility] [address] [place] [address] * Anaerobic Culture (04/07/2025 3:02 PM EDT) Culture No anaerobes isolated after 7 days 04/14/2025 9:39 AM EDT [facility] Aspirate, Abscess (Arm, Upper right) 04/07/2025 3:02 PM EDT Db Lynn MD MICROBIOLOGY - GENERAL OR DERABLES Final Result [facility] [address] [place] [address], * (ABNORMAL) POCT , Urine (04/07/2025 2:14 PM EDT) Preg Test, Ur Negative Negative Lot Number [id number] [employer] Techn[employer] Pass Pass Urine 04/07/2025 2:14 PM EDT [...] IMG MRI ORDERABLES Final Re sult * MRI [...] AM EDT) Ventricular rate 95 BPM EKG [facility] Atrial rate 95 BPM EKG [facility] P-R interval 146 ms EKG [facility] QRS duration 92 ms EKG [facility] Q-T interval 340 ms EKG [facility] QTC calculation (Bazett) 428 ms EKG [facility] P axis 20 degrees EKG [facility] R axis 26 degrees EKG [facility] T axis 36 degrees EKG [facility] 04/07/2025 10:0 0 AM EDT Narrative EKG [facility] - 04/07/2025 11:59 AM EDT Normal sinus rhythm Normal ECG No previous ECGs available Confirmed by MD Stauffer Eric ([id number]) on 04/07/2025 11:58:59 AM Procedure Note Ki Stauffer MD - 04/07/2025 Normal sinus rhythm Normal ECG No previous ECGs available Confirmed by MD Stauffer Eric ([id number]) on 04/07/2025 11:58:59 AM us Bhavin Parks MD ECG ORDERABLES Final R esult EKG [facility] * CT Upper extremity with contrast-Right [...] technique DLP: 1068 mGy-cm FINDINGS The large conhy-zc-dakk and positioning limits evaluation. Subcutaneous soft tissues: [...] technique DLP: 1068 mGy-cm FINDINGS The large qismr-ok-[id number] and positioning limits evaluation. Subcutaneous soft tissues: [...] lower lobe consolidation and right pleural effusion. [facility] Myriam De La Fuente PA-C [facility] [place] ORDERABLES Final Result * (ABNORMAL) Aerobic culture (Gram stain included) (04/07/2025 1:17 AM EDT) Gram stain suggestive of Few neutrophils Many squamous cells Red blood cells No organisms seen 04/07/2025 2:41 AM EDT [facility] Culture Methicillin Resistant Staph aureus (MRSA)(A) 04/11/2025 10:08 AM EDT [facility] Swab, Wound Right elbow [...] MICROBIOLOGY - GENERAL ORDE BENNETT Final Result [facility] [address] [place] [address], [facility] [address] [place] [address] documented in this encounter Visit Diagnoses Diagnosis [...] Mon04/11/25 at 1330, All antimicrobials used at [facility] require an indication. Please complete [...] on 04/14/25 at 1035, For 7 days Given 04/14/2025 6:10 PM EDT 4 mg HYDROmorphone (DILAUDID) tablet 6 mg 6 mg, Oral, Every 3 hours PRN, severe to excruciating pain 7-10, Starting on 04/14/25 at 1035, For 7 days insulin lispro [...] use: Methadone Maintenance, Verify methadone clinic name: [facility], [facility], Confirmation of maintenance dose: 130mg daily, Verify [...] to manage vancomycin therapy according to the [facility] protocol. When therapy is no longer needed, the provider must discontinue the protocol and medication order., Previous therapy: Yes (> 1 dose given; continuation from outside facility, outpatient infusion, or current admission), Reason for Therapy: Bacterial Infection Documented, Type of Therapy: Continued from CONSUMER LOAN MANAGER, Indication: Bacteremia, Other, Specify: NSI vancomycin (VANCOCIN) 1,250 mg in sodium chloride (NS) 0.9 % 250 mL IVPB-WTD 1,250 mg, Intravenous, Administer over 90 Minutes, Every 12 hours, First dose on 04/12/25 at 0130, All antimicrobials used at [facility] require an indication. Please complete the following documentation. Bacterial Infection Documented, Type of Therapy: Continued from CONSUMER LOAN MANAGER, Indication: Bacteremia, Other, Specify: NSI New Bag [...] Carranza RN)1741 (Not Given - Provider: Mandie Carranza, ANMOL [...] Adkins, ANMOL)0933 (Given - Provider: Ophelia Soto, ANMOL)1645 (Given - Provider: Ophelia Soto RN) chlorhexidine gluconate 2 % wipes - daily CHG application Topical, Daily, First dose on Mon04/08/25 at 0900, For daily use in patients with Urethral Catheter, Central Line, Jara, or Port-a-Cath. Each pack = 6 wipes. Dose = 1 each. 2200 (Given - Provider: Patrick Loomis RN) 1531 ([facility] Hold - Provider: Automatic Transfer Provider - Reason: Unreviewed Transfer Orders)1634 ([facility] Unhold - Provider: Alanis Franco MD)2128 (Given - Provider: Dayana Adkins RN) 2300 (Due - Provider: Ninfa Javed RN) clindamycin (CLEOCIN) IVPB 900 mg in 50 mL D5W (premix) 900 mg, Intravenous, Administer over 30 Minutes, Every 8 hours, First dose on Mon04/11/25 at 1330, All antimicrobials used at [facility] require an indication. Please complete the following documentation. Bacterial Infection Documented, Type of Therapy: New Therapy, Indication: Other, Specify: NSI 0519 (New Bag - Provider: Bianca Corcoran RN)1234 (New Bag - Provider: Mandie Carranza RN)2041 (New Bag - Provider: Patrick Loomis RN) 0516 (New Bag - Provider: Patrick Loomis RN)1240 (New Bag - Provider: Mandie Carranza RN)1531 ([facility] Hold - Provider: Automatic Transfer Provider - Reason: Unreviewed Transfer Orders)1634 ([facility] Unhold - Provider: Alanis Franco MD)2128 (New [...] is held. 857 (Given - Provider: Mandie Carranza, ANMOL) cloNIDine [...] Transfer Provider - Reason: Unreviewed Transfer Orders)1634 ([facility] Unhold - Provider: Alanis Franco MD)2128 (Given [...] damaged while crushing med, verified with another RN)153 ([facility] Hold - Provider: Automatic Transfer Provider - Reason: Unreviewed Transfer Orders)163 ([facility] Unhold - Provider: Alanis Franco MD) 0934 [...] Ruiz RN - Reason: See Provider Order)1634 ([facility] Unhold - Provider: Alanis Franco MD) 0046 (Given - Provider: Dayana Adkins, ANMOL)0935 (Given - Provider: Ophelia Soto RN)1645 (Given - Provider: Ophelia Soto, ANMOL) heparin (porcine) 5000 unit/mL injection 5,000 Units [...] Patrick Loomis RN)0852 (Given - Provider: Mandie Carranza, ANMOL)1531 ([facility] Hold - Provider: Automatic Transfer Provider - Reason: Unreviewed Transfer Orders)1600 (Not Given - Provider: Myrna Ruiz RN - Reason: See Provider Order)1634 ([facility] Unhold - Provider: Alanis Frnaco MD) heparin (porcine) 5000 unit/mL injection 5,000 [...] 3 minutes. 1658 (Given - Provider: Mandie Carranza, ANMOL) HYDROmorphone (DILAUDID) injection 0.5 mg (COMPLETED) 0.5 [...] RN)1156 (Given - Provider: Mandie Carranza RN)1531 ([facility] Hold - Provider: Automatic Transfer Provider - Reason: Unreviewed Transfer Orders)1634 ([facility] Unhold - Provider: Alanis Franco MD)1720 (Given - Provider: Myrna Ruiz RN) 0046 (Given - Provider: Dayana Adkins, ANMOL)0610 (Given - Provider: Dayana Adkins, ANMOL)1321 (Given - Provider: Ophelia Soto, ANMOL)1810 (Given - Provider: Ophelia Soto, ANMOL) methadone (DOLOPHINE) tablet 45 mg (CANCELED) 45 mg, Feeding Tube, Every 8 hours scheduled, First dose (after last modification) on 04/12/25 at 1200, For 16 doses, Dose should be verified prior to first administration for patients attending methadone treatment [place]., Methadone reason for use: Methadone Maintenance, Verify methadone clinic name: [facility], Confirmation of maintenance dose: 130mg daily, Verify [...] first administration for patients attending methadone treatment [place] Methadone reason for use: Methadone Maintenance, Verify methadone clinic name: [facility], Confirmation of maintenance dose: 130mg daily, Verify [...] Adkins RN)1321 (Given - Provider: Ophelia Soto RN)2000 (Due) methadone (DOLOPHINE) tablet 60 mg (CANCELED) [...] 0852 (Given - Provider: Mandie Carranza RN)1531 ([facility] Hold - Provider: Automatic Transfer Provider - Reason: Unreviewed Transfer Orders)163 ([facility] Unhold - Provider: Alanis Franco MD) 0934 [...] 0852 (Given - Provider: Mandie Carranza RN)1531 ([facility] Hold - Provider: Automatic Transfer Provider - Reason: Unreviewed Transfer Orders)163 ([facility] Unhold - Provider: Alanis Franco MD) 0934 [...] Oral, Every 2 hours, First dose on 04/14/25 at 0600, For 2 doses, Swallow tablets whole; do not crush, chew, or suck on tablet. Take with meals and a full glass of water or other liquid to minimize the risk of GI irritation. 0610 (Given - Provider: Dayana Adkins, RN)0934 (Given - Provider: Ophelia Soto RN) [...] mEq/hr 0404 (New Bag - Provider: Patrick Loomis, ANMOL) potassium phosphate and sodium phosphate (K PHOS [...] on 04/13/25 at 2100, Hold for diarrhea 1531 ([facility] [...] for diarrhea 0857 (Given - Provider: Mandie Carranza, ANMOL)2035 (Given - Provider: Patrick Loomis, ANMOL) sodium phosphate IVPB 30 mmol in 250 mL NS (central line) (COMPLETED) 30 mmol, Intravenous, at 43.3 mL/hr, Once, On 04/13/25 at 0130, For 1 dose, FOR CENTRAL LINE ADMINISTRATION ONLY 0404 (New Bag - Provider: Patrick Loomis, ANMOL - Comment: not available) thiamine mononitrate (VITAMIN [...] to manage vancomycin therapy according to the [facility] protocol. When therapy is no longer needed, the provider must discontinue the protocol and medication order., Previous therapy: Yes (> 1 dose given; continuation from outside facility, outpatient infusion, or current admission), Reason for Therapy: Bacterial Infection Documented, Type of Therapy: Continued from CONSUMER LOAN MANAGER, Indication: Bacteremia, Other, Specify: NSI 1531 ([facility] Hold - Provider: Automatic Transfer Provider - Reason: Unreviewed Transfer Orders)1634 ([facility] Unhold - Provider: Alanis Franco MD) vancomycin (VANCOCIN) 1,250 mg in sodium chloride (NS) 0.9 % 250 mL IVPB-WTD(Linked Group 4) 1,250 mg, Intravenous, Administer over 90 Minutes, Every 12 hours, First dose on 04/12/25 at 0130, All antimicrobials used at [facility] require an indication. Please complete the following documentation. Bacterial Infection Documented, Type of Therapy: Continued from CONSUMER LOAN MANAGER, Indication: Bacteremia, Other, Specify: NSI 0226 (New Bag - Provider: Bianca Corcoran RN)1234 (New Bag - Provider: Mandie Carranza, ANMOL) 0031 (New Bag - Provider: Patrick Loomis RN)1240 (New Bag - Provider: Mandie Carranza, RN)1531 ([facility] Hold - Provider: Automatic Transfer Provider - Reason: Unreviewed Transfer Orders)1634 ([facility] Unhold - Provider: Alanis Franco MD) 0046 (New Bag - Provider: Dayana Adkins, ANMOL)0216 (Stopped - Provider: Dayana Adkins, RN)1434 (New Bag - Provider: Ophelia Soto, [...] Carranza RN)1100 (Rate/Dose Verify - Provider: Mandie Carranza, ANMOL)1200 (Rate/Dose Verify - Provider: Mandie Carranza, ANMOL)1300 (Rate/Dose Verify - Provider: Mandie Carranza, ANMOL)1400 (Rate/Dose Verify - Provider: Mandie Carranza, RN)1500 (Rate/Dose Verify - Provider: Mandie Carranza, ANMOL)1542 (New Bag - Provider: Mandie M Kleckner, RN)1600 (Rate/Dose Verify - Provider: Mandie Carranza [...] Carranza, ANMOL)1000 (Rate/Dose Verify - Provider: Mandie Carranza RN)1100 (Rate/Dose Verify - Provider: Mandie Carranza RN)1200 (Rate/Dose Verify - Provider: Mandie Carranza, ANMOL)1300 (Rate/Dose Verify - Provider: Mandie Carranza RN)1400 (Rate/Dose Verify - Provider: Mandie Carranza RN)1531 ([facility] Hold - Provider: Automatic Transfer Provider - Reason: Unreviewed Transfer Orders)1634 ([facility] Unhold - Provider: Alanis Franco MD) 1321 (Stopped - Provider: Ophelia Soto, ANMOL) HYDROmorphone (DILAUDID) 1 mg/mL BOBBIN WASHER syringe (premix) (CANCELED) Intravenous, BOBBIN WASHER dose (mg): 0.3, Lockout interval: 10 min, Continuous rate (mg/hr): 0, Max limit in four hours (mg): 7.2, Loading dose (mg): 0 1118 (New Syringe/Cartridge - Provider: Mandie Carranza RN)1124 (Canceled Entry - Provider: Mandie Carranza RN) HYDROmorphone (DILAUDID) 1 mg/mL BOBBIN WASHER syringe (premix) (CANCELED) Intravenous, BOBBIN WASHER dose (mg): 0.2, Lockout interval: 10 min, Continuous rate (mg/hr): 0, Max limit in four hours (mg): 4.8, Loading dose (mg): 0 1541 (New Syringe/Cartridge - Provider: Mandie Carranza RN)1918 (Handoff - Provider: Mandie Carranza RN) 0657 (Handoff - Provider: Patrick Loomis RN)1531 ([facility] Hold - Provider: Automatic Transfer Provider - Reason: Unreviewed Transfer Orders)1539 (Handoff - Provider: Myrna Ruiz RN)1634 ([facility] Unhold - Provider: Alanis Franco MD)2007 (Handoff [...] Duoneb Indication: Bronchospasm, Other (use comment) 153 ([facility] Hold - Provider: Automatic Transfer Provider - Reason: Unreviewed Transfer Orders)1634 ([facility] Unhold - Provider: Alanis Franco MD) bisacodyl (DULCOLAX) suppository 10 mg 10 mg, Rectal, Daily PRN, constipation, if no bowel movement by day 2, Starting on Mon04/06/25 at 2229 153 ([facility] Hold - Provider: Automatic Transfer Provider - Reason: Unreviewed Transfer Orders)1634 ([facility] Unhold - Provider: Alanis Franco MD) dextrose 50 % solution 12.5 g(Linked Group 5) 12.5 g, Intravenous, Every 15 min PRN, low blood sugar, between 50 and 69 mg/dL, Starting on Mon04/09/25 at 0403, For patient with IV access who is NPO or unable to swallow. See Hypoglycemia Management guideline. 153 ([facility] Hold - Provider: Automatic Transfer Provider - Reason: Unreviewed Transfer Orders)1634 ([facility] Unhold - Provider: Alanis Franco MD) dextrose 50 % solution 25 g(Linked Group 5) 25 g, Intravenous, Every 15 min PRN, low blood sugar, less than 50 mg/dL, Starting on Mon04/09/25 at 0403, For patient with IV access who is NPO or unable to swallow. See Hypoglycemia Management guideline. 153 ([facility] Hold - Provider: Automatic Transfer Provider - Reason: Unreviewed Transfer Orders)1634 ([facility] Unhold - Provider: Alanis Franco MD) glucagon [...] 1 mL sterile water for injection. 153 ([facility] Hold - Provider: Automatic Transfer Provider - Reason: Unreviewed Transfer Orders)1634 ([facility] Unhold - Provider: Alanis Franco MD) glucose [...] % = 15 grams of glucose. 1531 ([facility] Hold - Provider: Automatic Transfer Provider - Reason: Unreviewed Transfer Orders)1634 ([facility] Unhold - Provider: Alanis Franco MD) glucose [...] % = 15 grams of glucose. 1531 ([facility] Hold - Provider: Automatic Transfer Provider - Reason: Unreviewed Transfer Orders)1634 ([facility] Unhold - Provider: Alanis Franco MD) HYDROmorphone (DILAUDID) injection 1 mg 1 mg, Intravenous, Daily PRN, DURING DRESSING CHANGES ONLY, Starting on Mon04/13/25 at 1420, For 5 days, For IV Push, administer over 2 to 3 minutes. 1531 ([facility] Hold - Provider: Automatic Transfer Provider - Reason: Unreviewed Transfer Orders)1634 ([facility] Unhold - Provider: Alanis Franco MD) 0946 [...] (Given - Provider: Bianca Corcoran RN) 1531 ([facility] Hold - Provider: Automatic Transfer Provider - Reason: Unreviewed Transfer Orders)1634 ([facility] Unhold - Provider: Alanis Franco MD) naloxone (NARCAN) 0.4 mg/mL injection 0.4 mg 0.4 mg, Intravenous, Every 5 min PRN, opioid reversal, respiratory depression, Starting on 04/12/25 at 0919, If respiratory rate is less than 8 breaths/minute or patient is difficult to arouse. Stop all narcotics and contact provider. 1531 ([facility] Hold - Provider: Automatic Transfer Provider - Reason: Unreviewed Transfer Orders)1634 ([facility] Unhold - Provider: Alanis Franco MD) ondansetron (ZOFRAN) injection 4 mg 4 mg, Intravenous, Every 6 hours PRN, nausea, vomiting, Starting on 04/07/25 at 1811 1531 ([facility] Hold - Provider: Automatic Transfer Provider - Reason: Unreviewed Transfer Orders)1634 ([facility] Unhold - Provider: Alanis Franco MD) Linked [...] For 1 dose, All antimicrobials used at [facility] require an indication. Please complete the following documentation. 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 Please complete the following documentation. 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
--- NOTE | ~2025-04-14 | FL_ITS ---
PROCEDURE: IR CVC INSERTION CENTRAL TUNNELED CATHETER CLINICAL INFORMATION: IV drug use. Multiple skin infections/cellulitis for long-term IV antibiotics COMPARISON: None available. TECHNIQUE: Procedure and risks and benefits including bleeding infection and pneumothorax were discussed with the patient by Dr. Doran and informed consent was obtained. All elements of maximal sterile barrier technique followed including use of cap, mask, sterile gown, sterile gloves, a sterile full body drape and hand hygiene. Also followed skin preparation with 2% chlorhexidine for cutaneous antisepsis, and sterile ultrasound preparation with sterile gel and probe cover when applicable. Real-time ultrasound guidance was used to document vein patency and for needle entry. A formal ultrasound picture was recorded. Exam was performed in the operating room. Anesthesia was provided by the anesthesia department. The left neck was prepped and draped in the usual sterile fashion. The skin and soft tissues were anesthetized with 1% lidocaine plain. Using ultrasound guidance and a 5 [place] micropuncture system, access to the left internal jugular vein was obtained. Over an 018 wire, a 5 [place] dilator was positioned in the left innominate vein. The skin and soft tissues of the left upper anterior chest were anesthetized with 1% lidocaine plain. A small incision was made. A subcutaneous tunnel from the chest to the neck incision was anesthetized with 1% lidocaine plain. Using a tunneler, a 5 [place] double lumen Jara catheter was tunneled from the chest to the neck incision. An 018 wire was advanced through the 5 [place] catheter into the right atrium. 5 [place] catheter was exchanged for a 6 [place] peel-away sheath. Using bent wire technique, catheter length was estimated and the catheter was cut. Catheter length is 27 cm. The catheter was fed centrally through the peel-away sheath. Catheter tip is at the cavoatrial junction. Both ports flushed well and had good blood return. The neck incision is closed using a 3.0 absorbable subcuticular suture. The chest incision was closed using a 3.0 absorbable mattress suture. Both ports had good blood return and were flushed with heparinized saline. Fluoroscopy time: 80 seconds Patient dose: 15 mGy 13 saved fluoroscopic images. FINDINGS: There is a left internal jugular 5 [place] double lumen Jara catheter with catheter tip projecting over the cavoatrial junction. FL/FL fluoroscopy <1hr IMPRESSION: Left internal jugular 5 [place] double lumen Jara catheter placement. Electronically signed by: Deb Marquez MD 04/24/2025 12:40 PM EDT RP
--- NOTE | ~2025-04-14 | XR_ITS ---
EXAMINATION: XR ELBOW, LEFT CLINICAL INFORMATION: identify retained needle fragments COMPARISON: None available. TECHNIQUE: AP, lateral, and oblique views of the left elbow. FINDINGS: There is patchy increased density in the soft tissues adjacent to the medial humeral condyle. No linear metallic foreign body is present. Posterior fat pad is not visible. XR/XR elbow LT min 3V IMPRESSION: Medial soft tissue swelling. No metallic foreign body. Electronically signed by: Jose Padilla MD 04/15/2025 12:04 PM EDT
--- NOTE | ~2025-04-14 | IR_ITS ---
PROCEDURE: IR CVC INSERTION CENTRAL TUNNELED CATHETER CLINICAL INFORMATION: IV drug use. Multiple skin infections/cellulitis for long-term IV antibiotics COMPARISON: None available. TECHNIQUE: Procedure and risks and benefits including bleeding infection and pneumothorax were discussed with the patient by Dr. Doran and informed consent was obtained. All elements of maximal sterile barrier technique followed including use of cap, mask, sterile gown, sterile gloves, a sterile full body drape and hand hygiene. Also followed skin preparation with 2% chlorhexidine for cutaneous antisepsis, and sterile ultrasound preparation with sterile gel and probe cover when applicable. Real-time ultrasound guidance was used to document vein patency and for needle entry. A formal ultrasound picture was recorded. Exam was performed in the operating room. Anesthesia was provided by the anesthesia department. The left neck was prepped and draped in the usual sterile fashion. The skin and soft tissues were anesthetized with 1% lidocaine plain. Using ultrasound guidance and a 5 Syrian micropuncture system, access to the left internal jugular vein was obtained. Over an 018 wire, a 5 Syrian dilator was positioned in the left innominate vein. The skin and soft tissues of the left upper anterior chest were anesthetized with 1% lidocaine plain. A small incision was made. A subcutaneous tunnel from the chest to the neck incision was anesthetized with 1% lidocaine plain. Using a tunneler, a 5 Syrian double lumen Jara catheter was tunneled from the chest to the neck incision. An 018 wire was advanced through the 5 Syrian catheter into the right atrium. 5 Syrian catheter was exchanged for a 6 Syrian peel-away sheath. Using bent wire technique, catheter length was estimated and the catheter was cut. Catheter length is 27 cm. The catheter was fed centrally through the peel-away sheath. Catheter tip is at the cavoatrial junction. Both ports flushed well and had good blood return. The neck incision is closed using a 3.0 absorbable subcuticular suture. The chest incision was closed using a 3.0 absorbable mattress suture. Both ports had good blood return and were flushed with heparinized saline. Fluoroscopy time: 80 seconds Patient dose: 15 mGy 13 saved fluoroscopic images. FINDINGS: There is a left internal jugular 5 Syrian double lumen Jara catheter with catheter tip projecting over the cavoatrial junction. IR/IR cvc insert central tunnel IMPRESSION: Left internal jugular 5 Syrian double lumen Jara catheter placement. Electronically signed by: Deb Marquez MD 04/24/2025 12:40 PM EDT RP
--- NOTE | ~2025-04-14 | IR_ITS ---
PROCEDURE: IR CVC INSERTION CENTRAL TUNNELED CATHETER CLINICAL INFORMATION: IV drug use. Multiple skin infections/cellulitis for long-term IV antibiotics COMPARISON: None available. TECHNIQUE: Procedure and risks and benefits including bleeding infection and pneumothorax were discussed with the patient by Dr. Doran and informed consent was obtained. All elements of maximal sterile barrier technique followed including use of cap, mask, sterile gown, sterile gloves, a sterile full body drape and hand hygiene. Also followed skin preparation with 2% chlorhexidine for cutaneous antisepsis, and sterile ultrasound preparation with sterile gel and probe cover when applicable. Real-time ultrasound guidance was used to document vein patency and for needle entry. A formal ultrasound picture was recorded. Exam was performed in the operating room. Anesthesia was provided by the anesthesia department. The left neck was prepped and draped in the usual sterile fashion. The skin and soft tissues were anesthetized with 1% lidocaine plain. Using ultrasound guidance and a 5 [place] micropuncture system, access to the left internal jugular vein was obtained. Over an 018 wire, a 5 [place] dilator was positioned in the left innominate vein. The skin and soft tissues of the left upper anterior chest were anesthetized with 1% lidocaine plain. A small incision was made. A subcutaneous tunnel from the chest to the neck incision was anesthetized with 1% lidocaine plain. Using a tunneler, a 5 [place] double lumen Jara catheter was tunneled from the chest to the neck incision. An 018 wire was advanced through the 5 [place] catheter into the right atrium. 5 [place] catheter was exchanged for a 6 [place] peel-away sheath. Using bent wire technique, catheter length was estimated and the catheter was cut. Catheter length is 27 cm. The catheter was fed centrally through the peel-away sheath. Catheter tip is at the cavoatrial junction. Both ports flushed well and had good blood return. The neck incision is closed using a 3.0 absorbable subcuticular suture. The chest incision was closed using a 3.0 absorbable mattress suture. Both ports had good blood return and were flushed with heparinized saline. Fluoroscopy time: 80 seconds Patient dose: 15 mGy 13 saved fluoroscopic images. FINDINGS: There is a left internal jugular 5 [place] double lumen Jara catheter with catheter tip projecting over the cavoatrial junction. IR/IR us guide venous access IMPRESSION: Left internal jugular 5 [place] double lumen Jara catheter placement. Electronically signed by: Deb Marquez MD 04/24/2025 12:40 PM EDT RP
--- NOTE | 2025-04-14 18:17 | PC.NURSE ---
Pt expected from [facility] this kevin. Dr Mcneil reports that nursing needs to be aware that pt's LEFT UPPER EXTREMITY WOUND has needle fragments left in the wound so it must be cared for cautiously and only with instruments such as forceps. Receiving RN notified. Provider states he will ensure orders are entered accordingly.
--- OUTSIDE RECORDS SUMMARY | 2025-04-14 21:24 | XMS_ITS | Clinical Summary ---
Author Organization [facility] Address [address] [place] [address] Care Team Providers Care Communications Billing Analyst Name Role Phone System, Provider Not In Primary Care Provider Un available Allergies No known active allergies Medications naloxone (NARCAN) 0.4 mg/mL injectionIndicat ions:Abscess of arm, right Infuse 1 mL (0.4 mg total) into a venous catheter every 5 (five) minutes as needed for opioid reversal or respiratory depression. 5 Active bisacodyl (DULCOLAX) 10 MG suppositoryIndic ations:Abscess of arm, right Insert 1 suppository (10 mg total) into the rectum daily as needed for constipation (if no bowel movement by day 2). 5 025 Active senna-docusate (SENNA-S) 8.6-50 MGIndications:Ab scess of arm, right Take 1 tablet by mouth nightly. 5 025 Active glucose (GLUTOSE 15) 40 % oral gelIndications:A bscess of arm, right Take 1 Tube (37.5 g total) by mouth every 15 (fifteen) minutes as needed for low blood sugar (between 50 and 69 mg/dL). 5 025 Active glucose (GLUTOSE 15) 40 % oral gelIndications:A bscess of arm, right Take 2 Tubes (75 g total) by mouth every 15 (fifteen) minutes as needed for low blood sugar (less than 50 mg/dL). 5 025 Active dextrose 50 % solutionIndicati ons:Abscess of arm, right Infuse 25 mL (12.5 g total) into a venous catheter every 15 (fifteen) minutes as needed for low blood sugar (between 50 and 69 mg/dL). Active dextrose 50 % solutionIndicati ons:Abscess of arm, right Infuse 50 mL (25 g total) into a venous catheter every 15 (fifteen) minutes as needed for low blood sugar (less than 50 mg/dL). Active glucagon (GLUCAGEN) 1 mg Recon Soln injectionIndicat ions:Abscess of arm, right Inject 1 mg into the shoulder, thigh, or buttocks daily as needed for low blood sugar (for Blood Glucose LESS than 70 mg/dL and NPO and no IV access). Active insulin lispro (HumaLOG/ADMELOG ) 100 units/mL injectionIndicat ions:Abscess of arm, right Inject 0.01-0.06 mL (1-6 Units total) under the skin every 4 (four) hours. Active ondansetron (ZOFRAN) 4 MG/2ML injectionIndicat ions:Abscess of arm, right Infuse 2 mL (4 mg total) into a venous catheter 4 times daily (every 6 hours) as needed for nausea or vomiting. Active acetaminophen (TYLENOL) 325 MG tabletIndication s:Abscess of arm, right Take 3 tablets (975 mg total) by mouth every 6 (six) hours around the clock. Active albuterol (PROVENTIL) (0.083%) 2.5 mg/3 mL nebulizer solutionIndicati ons:Abscess of arm, right Take 3 mL (2.5 mg total) by nebulization 4 times daily (every 6 hours) as needed for wheezing or shortness of breath. Active baclofen (LIORESAL) 10 MG tabletIndication s:Abscess of arm, right Take 1 tablet (10 mg total) by mouth every 8 (eight) hours around the clock. Active clindamycin in D5w (CLEOCIN) 900 MG/50ML IVPBIndications: Abscess of arm, right Infuse 50 mL (900 mg total) into a venous catheter 3 times daily (every 8 hours). 5 Active cloNIDine (CATAPRES) 0.1 MG tabletIndication s:Abscess of arm, right Take 1 tablet (0.1 mg total) by mouth 2 (two) times a day. 5 Active folic acid (FOLVITE) 1 MG tabletIndication s:Abscess of arm, right Take 1 tablet (1 mg total) by mouth daily. 5 Active gabapentin (NEURONTIN) 300 MG capsuleIndicatio ns:Abscess of arm, right Take 1 capsule (300 mg total) by mouth every 8 (eight) hours around the clock. 5 Active Heparin Sodium, Porcine, (heparin, porcine,) 5000 unit/mL injectionIndicat ions:Abscess of arm, right Inject 1 mL (5,000 Units total) under the skin every 8 (eight) hours around the clock. Active HYDROmorphone (DILAUDID) 1 mg/mL injectionIndicat ions:Abscess of arm, right Infuse 1 mL (1 mg total) into a venous catheter daily as needed (DURING DRESSING CHANGES ONLY). Max Daily Amount: 1 mg 5 Active HYDROmorphone (DILAUDID) 4 MG tabletIndication s:Abscess of arm, right Take 1 tablet (4 mg total) by mouth every 3 (three) hours as needed for moderate pain. Max Daily Amount: 32 mg 5 Active HYDROmorphone (DILAUDID) 2 MG tabletIndication s:Abscess of arm, right Take 3 tablets (6 mg total) by mouth every 3 (three) hours as needed for severe pain. Max Daily Amount: 48 mg 5 Active ketorolac (TORADOL) 15 MG/ML injectionIndicat ions:Abscess of arm, right Infuse 1 mL (15 mg total) into a venous catheter every 6 (six) hours around the clock. Active methadone (DOLOPHINE) 5 MG tabletIndication s:Abscess of arm, right Take 9 tablets (45 mg total) by mouth every 8 (eight) hours around the clock. Max Daily Amount: 135 mg 5 Active multivitamin Tab tabletIndication s:Abscess of arm, right Take 1 tablet by mouth daily. 5 Active naloxegol (MOVANTIK) 12.5 MG tabletIndication s:Opioid-Induced Constipation Take 1 tablet (12.5 mg total) by mouth every morning before breakfast. 5 Active polyethylene glycol (miraLAx) 17 g packetIndication s:Abscess of arm, right Take 1 packet (17 g total) by mouth daily. 5 Active potassium phosphate and sodium phosphate (K PHOS NEUTRAL) 155-852-130 MG tabletIndication s:Abscess of arm, right Take 2 tablets by mouth 4 (four) times a day with meals and nightly. Active thiamine mononitrate (VITAMIN B-1) 100 MG tabletIndication s:Abscess of arm, right Take 1 tablet (100 mg total) by mouth daily. 5 Active vancomycin 1,250 mg in sodium chloride 0.9 % 250 mL IVPB-WTDIndicati ons:Abscess of arm, right Infuse 1,250 mg into a venous catheter twice daily (every 12 hours). 5 Active doxycycline (VIBRA-TABS) 100 MG tabletIndication s:Abscess of arm, right Take 1 tablet (100 mg total) by mouth 2 (two) times a day. 5 Active Active Problems Problem Noted Date Diagnosed Date Abscess of arm, right 04/07/2025 Assessment & Plan (04/07/2025 4:06 PM EDT): -Patient evaluated by surgery and orthopedics - patient scheduled for incision and drainage by surgery today - ID was consulted-on vancomycin and Zosyn Patient received 1 dose of clindamycin - Vascular access was an issue, she will get central line placed during surgical procedure today -MRI upper extremity done-awaiting results Assessment & Plan (04/07/2025 5:34 AM EDT): - Patient with history of IV drug [...] uploaded in the chart. Surgery team aware. Abscess of left arm 04/07/2025 Assessment & Plan (04/07/2025 4:06 PM EDT): -Patient evaluated by surgery and orthopedics - patient scheduled for incision and drainage by surgery today - ID was consulted-on vancomycin and Zosyn Patient received 1 dose of clindamycin - Vascular access was an issue, she will get central line placed during surgical procedure today -MRI upper extremity done-awaiting results Assessment & Plan (04/07/2025 5:34 AM EDT): - Patient with history of IV drug [...] the chart. Surgery team aware. Lung nodule 04/07/2025 Assessment & Plan (04/07/2025 4:06 PM EDT): -1 cm nodule on outpatient CT scan- Assessment & Plan (04/07/2025 1:38 AM EDT): -1 cm incidental nodule seen in outpatient CT scan concerning for septic emboli given the history. MRSA bacteremia 04/07/2025 Assessment & Plan (04/07/2025 4:06 PM EDT): -Patient evaluated by surgery and orthopedics - patient scheduled for incision and drainage by surgery today - ID was consulted-on vancomycin and Zosyn Patient received 1 dose of clindamycin - Vascular access was an issue, she will get central line placed during surgical procedure today -MRI upper extremity done-awaiting results Assessment & Plan (04/07/2025 5:34 AM EDT): - Patient with history of IV drug [...] uploaded in the chart. Surgery team aware. Infection of wound due to me thicillin resistant Staphylococcus aureus (MRSA) 04/07/2025 Assessment & Plan (04/07/2025 4:06 PM EDT): -Patient evaluated by surgery and orthopedics - patient scheduled for incision and drainage by surgery today - ID was consulted-on vancomycin and Zosyn Patient received 1 dose of clindamycin - Vascular access was an issue, she will get central line placed during surgical procedure today -MRI upper extremity done-awaiting results Assessment & Plan (04/07/2025 5:34 AM EDT): - Patient with history of IV drug [...] uploaded in the chart. Surgery team aware. Methadone maintenance therapy patient 04/07/2025 Assessment & Plan (04/07/2025 4:06 PM EDT): -I confirm the dose with outpatient methadone clinic-on 130 mg methadone daily Assessment & Plan (04/07/2025 1:38 AM EDT): -Patient is on 130 mg of methadone, follows up with [facility] Was confirmed by provider at outside hospital. - Will likely need reconfirmation in this hospitalization. Has received a dose this morning. IV drug user 04/07/2025 Assessment & Plan (04/07/2025 4:06 PM EDT): -I confirm the dose with outpatient methadone clinic-on 130 mg methadone daily Assessment & Plan (04/07/2025 1:38 AM EDT): -Poor IV access team, difficulty getting blood draws due to her swelling and history of IV drug use. - Does have 1 IV access for antibiotics. - Will likely need a PICC line/midline for frequent labs Difficult intravenous access 04/07/2025 Assessment & Plan (04/07/2025 4:06 PM EDT): -I confirm the dose with outpatient methadone clinic-on 130 mg methadone daily Assessment & Plan (04/07/2025 1:38 AM EDT): -Poor IV access team, difficulty getting blood draws due to her swelling and history of IV drug use. - Does have 1 IV access for antibiotics. - Will likely need a PICC line/midline for frequent labs ADHD 04/07/2025 Assessment & Plan (04/07/2025 1:38 AM EDT): Patient is on Adderall at home, can continue outpatient Hand abscess 04/06/2025 Assessment & Plan (04/07/2025 4:06 PM EDT): -Patient evaluated by surgery and orthopedics - patient scheduled for incision and drainage by surgery today - ID was consulted-on vancomycin and Zosyn Patient received 1 dose of clindamycin - Vascular access was an issue, she will get central line placed during surgical procedure today -MRI upper extremity done-awaiting results Assessment & Plan (04/07/2025 5:34 AM EDT): - Patient with history of IV drug [...] uploaded in the chart. Surgery team aware. Encounters Date Type Department Care Team Description 04/10/2025 10:20 PM EDT - 04/11/2025 12:06 AM EDT Surgery [facility] [address] [place] [address] [phone] Shaila Solorio MD DEBRIDEMENT WOUND RIGHT UPPER EXTREMITY, LEFT UPPER EXTREMITY, RIGHT CHEST WALL 04/10/2025 9:56 PM EDT Anesthesia [facility] [address] [place] [address] [phone] Jacque Lee MD Ritchie, Agatha T, PA-C 04/09/2025 2:58 PM EDT - 04/09/2025 4:33 PM EDT [facility] [address] [place] [address] [phone] Db Lynn MD DEBRIDEMENT UPPER EXTREMITY AND CHEST 04/09/2025 2:49 PM EDT Anesthesia [facility] [address] [place] [address] [phone] Олег Vasquez DO Ritchie, Agatha T, PA-C 04/08/2025 7:01 PM EDT Anesthesia [facility] [address] [place] [address] [phone] Cuauhtemoc Collins MD Ritchie, Agatha T, PA-C 04/08/2025 6:00 PM EDT - 04/08/2025 7:24 PM EDT [facility] [address] [place] [address] [phone] Galdino Cunningham MD INCISION & DRAINAGE 04/07/2025 4:50 PM EDT Ancillary Procedure [facility] [place] at [address] [phone] Daisy Galdamez PA-C 04/07/2025 2:15 PM EDT Anesthesia Event [facility] [address] [place] [phone] Juan J Hagan MD Ritchie, Agatha T, PA-C 04/07/2025 1:27 PM EDT - 04/07/2025 3:01 PM EDT Surgery [facility] [address] [place] [phone] Db Lynn MD INCISION & DRAINAGE AND DEBRIDEMENT UPPER EXTREMITY 04/07/2025 7:25 AM EDT Ancillary Procedure [facility] [address] [place] [phone] Provider, File Room 04/07/2025 7:20 AM EDT Ancillary Procedure [facility] [address] [place] [phone] Provider, File Room 04/07/2025 7:15 AM EDT Ancillary Procedure [facility] [address] [place] [phone] Provider, File Room 04/07/2025 7:10 AM EDT Ancillary Procedure [facility] [address] [place] [phone] Provider, File Room 04/07/2025 7:05 AM EDT Ancillary Procedure [facility] [address] [place] [phone] Provider, File Room 04/07/2025 7:00 AM EDT Ancillary Procedure [facility] [address] [place] [phone] Provider, File Room 04/07/2025 7:00 AM EDT Ancillary Procedure [facility] [address] [place] [phone] Provider, File Room 04/07/2025 6:55 AM EDT Ancillary Procedure [facility] [address] [place] [phone] Provider, File Room 04/07/2025 6:55 AM EDT Ancillary Procedure [facility] [address] [place] [phone] Provider, File Room 04/07/2025 12:40 AM EDT Ancillary Procedure [facility] [address] [place] [phone] Provider, File Room 04/07/2025 12:35 AM EDT Ancillary Procedure [facility] [address] [place] [address], [place] [phone] Provider, File Room 04/07/2025 12:30 AM EDT Ancillary Procedure [facility] [address] [place] [address], [place] [phone] Provider, File Room 04/07/2025 12:25 AM EDT Ancillary Procedure [facility] [address] [place] [address], [place] [phone] Provider, File Room 04/07/2025 12:20 AM EDT Ancillary Procedure [facility] [address] [place] [address], [place] [phone] Provider, File Room 04/07/2025 12:15 AM EDT Ancillary Procedure [facility] [address] [place] [phone] Provider, File Room 04/07/2025 12:15 AM EDT Ancillary Procedure [facility] [address] [place] [address], [place] [phone] Provider, File Room 04/07/2025 12:10 AM EDT Ancillary Procedure [facility] [address] [place] [address], [place] [phone] Provider, File Room 04/07/2025 12:10 AM EDT Ancillary Procedure [facility] [address] [place] [address], [place] [phone] Provider, File Room 04/06/2025 8:42 PM EDT - 04/14/2025 8:20 PM EDT Hospital Encounter [facility] [address] [place] [phone] Kenton Medina MD Lubaina, Fnu, MD Kottarathara, MD Shane Farias Nicholas J, MD Ricaurte, Daniel, MD Croteau, Galdino Galdamez MD Abscess of arm, right (Primary Dx) Discharge Disposition: Short Term-Acute Care Hospital 04/06/2025 Travel 04/02/2025 Orders Only [facility] [address] [place] [phone] Provider, File Room from Last 3 Months Social History Tobacco Use Types Packs/Day Years Used Date Smoking Tobacco: Every Day Cigarettes Passive Smoke Exposure: Current Smokeless Tobacco: Current Tobacco Cessation:Ready to Q uit: No; Counseling Given: Not Answered [facility] Utilities Answer Date Recorded In the [...] in the past 12 m [facility], were you homeless or living in a assisted (including now)? No 04/08/2025 Comments Unknown Sex and Gender Information Value Date Recorded Sex Assigned at Female 04/06/2025 9:21 PM EDT Legal Sex Female 4:48 PM EDT Gender Identity Female 04/06/2025 9:21 PM EDT Sexual Orientation Heterosexual (straight) 04/06 9:21 PM EDT Last Filed Vital Signs Vital Sign Reading [...] Mass Index 27.44 04/06/2025 8:56 PM EDT Plan of Treatment Health Maintenance Due Date Last Done Comments DTaP/Tdap/Td Vaccines (1 - Tdap) 12/03/2007 Hepatitis B Vaccines (1 of 3 - 19+ 3-dose series) 08/2007 Pneumococcal Vaccine: Pediat frandy (0-5 Years) and At-Risk Patients (6 to 49 Years) (1 of 2 - PCV) 12/03/2007 Pap Smear (Ages 21-65) 2009 Influenza Vaccine 01/31/2025 COVID-19 Vaccine ( - season) 2025 HIV Screening Completed 04/08/2025 Hepatitis C Virus Screening Completed 04/08/2025 HPV Vaccines (No Doses Required) Completed Procedures Procedure Name Priority Date/Time Associated Diagnosis Comments POCT GLUCOSE, FINGERSTICK (CHARGE) Routine 04/14/2025 4:08 PM EDT POCT GLUCOSE, FINGERSTICK (CHARGE) Routine 04/14/2025 11:40 AM EDT ECG 12-LEAD Routine 04/14/2025 10:13 AM EDT POCT GLUCOSE, FINGERSTICK (CHARGE) Routine 04/14/2025 8:28 AM EDT POCT GLUCOSE, FINGERSTICK (CHARGE) Routine 04/14/2025 4:07 AM EDT PHOSPHORUS Routine 04/14/2025 4:05 AM EDT MAGNESIUM Routine 04/14/2025 4:05 AM EDT COMPLETE BLOOD COUNT, WITHOUT DIFFERENTIAL Routine 04/14/2025 4:05 AM EDT BASIC METABOLIC [...] FINGERSTICK (CHARGE) Routine 04/13/2025 4:15 AM EDT PHOSPHORUS Routine 04/13/2025 12:32 AM EDT MAGNESIUM Routine 04/13/2025 12:32 AM EDT COMPLETE BLOOD COUNT, WITHOUT DIFFERENTIAL Routine 04/13/2025 12:32 AM EDT BASIC METABOLIC [...] FINGERSTICK (CHARGE) Routine 04/12/2025 3:51 AM EDT MAGNESIUM Routine 04/12/2025 12:08 AM EDT PHOSPHORUS Routine 04/12/2025 12:08 AM EDT COMPLETE BLOOD COUNT, WITHOUT DIFFERENTIAL Routine 04/12/2025 12:08 AM EDT BASIC METABOLIC [...] BLOOD CELLS Routine 2024 2:03 AM EDT PHOSPHORUS Routine 04/11/2025 12:57 AM EDT MAGNESIUM Routine 04/11/2025 12:57 AM EDT BASIC METABOLIC PANEL Routine 04/11/2025 12:57 AM EDT COMPLETE BLOOD COUNT, WITHOUT DIFFERENTIAL Routine 04/11/2025 12:57 AM EDT POCT GLUCOSE, [...] FINGERSTICK (CHARGE) Routine 04/10/2025 12:22 AM EDT PHOSPHORUS Routine 04/10/2025 12:06 AM EDT MAGNESIUM Routine 04/10/2025 12:06 AM EDT BASIC METABOLIC PANEL Routine 04/10/2025 12:06 AM EDT CALCIUM, IONIZED Routine 04/10/2025 12:0 6 AM EDT COMPLETE BLOOD COUNT, WITHOUT DIFFERENTIAL Routine 04/10/2025 12:06 AM EDT HEMOGLOBIN A1C WITH ESTIMATED AVERAGE GLUCOSE Routine 04/10/2025 12:06 AM EDT CREATINE KINASE (CK) Routine 04/09/2025 9:29 PM EDT POCT GLUCOSE, FINGERSTICK (CHARGE) Routine 04/09/2025 8:05 PM EDT TRANSFUSE RED BLOOD CELLS Routine 2024 6:34 PM EDT PREPARE RBC'S Routine 04/09/2025 6:11 PM EDT POCT GLUCOSE, FINGERSTICK (CHARGE) Routine 04/09/2025 5:20 PM EDT THROMBOELASTOGRAPH (TEG) Routine 025 5:20 PM EDT PHOSPHORUS Routine 04/09/2025 5:20 PM EDT MAGNESIUM Routine 04/09/2025 5:20 PM EDT BASIC METABOLIC PANEL Routine 04/09/2025 5:20 PM EDT COMPLETE BLOOD COUNT, WITHOUT DIFFERENTIAL Routine 04/09/2025 5:20 PM EDT LACTIC ACID, PLASMA Routine 04/09/2025 5 :20 PM EDT CALCIUM, IONIZED Routine 04/09/2025 5:20 PM EDT CREATINE KINASE (CK) Routine 04/09/2025 5:20 PM EDT TRANSFUSE FRESH [...] FINGERSTICK (CHARGE) Routine 04/09/2025 3:45 AM EDT ABO CONFIRMATION Routine 04/09/2025 3:24 AM EDT CREATINE KINASE (CK) Routine 04/09/2025 3:24 AM EDT MAGNESIUM Routine 04/09/2025 3:24 AM EDT PHOSPHORUS Routine 04/09/2025 3:24 AM EDT COMPLETE BLOOD COUNT, WITHOUT DIFFERENTIAL Routine 04/09/2025 3:24 AM EDT BASIC METABOLIC PANEL Routine 04/09/2025 3:24 AM EDT BLOOD CULTURE (HOSP LAB) Routine 1:31 AM EDT POCT GLUCOSE, FINGERSTICK (CHARGE) Routine 04/09/2025 12:[address] ABDOMEN+PELVIS W/CONTRAST STAT 04/08/2025 11:[address] UPPER EXTREMITY WITH CONTRAST-BILATERAL STAT 04/08/2025 11:[address] SOFT TISSUE NECK W/CONTRAST STAT 04/08/2025 11:[address] THORAX W/CONTRAST STAT 04/08/2025 11:50 PM EDT POCT GLUCOSE, FINGERSTICK (CHARGE) Routine 04/08/2025 10:18 PM EDT XR ABDOMEN 1 VIEW STAT 04/08/2025 9:3 5 PM EDT XR CHEST 1 VIEW-PORTABLE STAT 025 9:34 PM EDT TRIGLYCERIDES Routine 04/08/2025 9:15 PM EDT CREATINE KINASE (CK) Routine 04/08/2025 9:15 PM EDT COMPLETE BLOOD COUNT, WITHOUT DIFFERENTIAL Routine 04/08/2025 9:15 PM EDT CALCIUM, IONIZED Routine 04/08/2025 9:15 PM EDT PHOSPHORUS Routine 04/08/2025 9:15 PM EDT MAGNESIUM Routine 04/08/2025 9:15 PM EDT LACTIC ACID, PLASMA Routine 04/08/2025 9 :15 PM EDT BASIC METABOLIC PANEL Routine 04/08/2025 9:15 PM EDT ANES INTUBATION Routine 04/08/2025 8:22 PM EDT INCISION & DRAINAGE 04/08/2025 6 :43 PM EDT Abscess of arm, right C-REACTIVE PROTEIN Routine 04/08/2025 2: 05 PM EDT ERYTHROCYTE SEDIMENTATION RATE (ESR) Routine 04/08/2025 2:05 PM EDT VANCOMYCIN LEVEL-RANDOM Timed 04/08/20 25 2:05 PM EDT HEPATITIS PANEL, ACUTE Routine 8:49 AM EDT HIV 1/2 AG/AB CMIA REFLEX TO CONFIRMATION Routine 04/08/2025 8:49 AM EDT PHOSPHORUS Routine 04/08/2025 5:30 AM EDT MAGNESIUM Routine 04/08/2025 5:30 AM EDT BASIC METABOLIC PANEL Routine 04/08/2025 5:30 AM EDT COMPLETE BLOOD COUNT, WITHOUT DIFFERENTIAL Routine 04/08/2025 5:30 AM EDT XR CHEST 1 VIEW-PORTABLE STAT 025 7:47 PM EDT MYCOBACTERIA CULTURE (INCLUDES ACID FAST SMEAR) Routine 04/07/2025 3:47 PM EDT FUNGAL CULTURE (NON-BLOOD) Routine 04/07 3:47 PM EDT TISSUE CULTURE (AEROBIC, ANAEROBIC + GRAM STAIN) Routine 04/07/2025 3:47 PM EDT ANES LINE - CENTRAL/PA CATH Routine 04/07/2025 3:05 PM EDT AEROBIC CULTURE (GRAM STAIN INCLUDED) Routine 04/07/2025 3:02 PM EDT ANAEROBIC CULTURE Routine 04/07/2025 3:0 2 PM EDT ANES INTUBATION Routine 04/07/2025 2:49 PM EDT POCT , URINE (CHARGE) Routine 04/07/2025 2:14 PM EDT INCISION & DRAINAGE 04/07/2025 2 :04 PM EDT Abscess of arm, right CT UPPER EXTREMITY WITH CONTRAST-LEFT STAT 04/07/2025 1:11 PM EDT MRI ARM W W/O CONTRAST-LOWER RIGHT Routine 04/07/2025 12:46 PM EDT MRI ARM W W/O CONTRAST-UPPER RIGHT Routine 04/07/2025 12:44 PM EDT ECG 12-LEAD Routine 04/07/2025 10:00 AM EDT ZEINAB ARCHIVE FOR REFERENCE ONLY CT Routine 04/07/2025 6:[address] EXTREMITY LEFT ARCHIVE FOR REFERENCE ONLY Routine 04/07/2025 6:[address] EXTREMITY LEFT ARCHIVE FOR REFERENCE ONLY Routine 04/07/2025 6:52 AM EDT CR EXTREMITY RIGHT ARCHIVE FOR REFERENCE ONLY Routine 04/07/2025 6:[address] EXTREMITY RIGHT ARCHIVE FOR REFERENCE ONLY Routine 04/07/2025 6:[address] EXTREMITY RIGHT ARCHIVE FOR REFERENCE ONLY Routine 04/07/2025 6:[address] EXTREMITY LEFT ARCHIVE FOR REFERENCE ONLY Routine 04/07/2025 6:[address] EXTREMITY RIGHT ARCHIVE FOR REFERENCE ONLY Routine 04/07/2025 6:51 AM EDT CR CHEST ARCHIVE FOR REFERENCE ONLY Routine 04/07/2025 6:[address] UPPER EXTREMITY WITH CONTRAST-RIGHT STAT 04/07/2025 2:32 AM EDT AEROBIC CULTURE (GRAM STAIN INCLUDED) Routine 04/07/2025 1:17 AM EDT ZEINAB ARCHIVE FOR REFERENCE ONLY CT Routine 04/07/2025 12:[address] EXTREMITY LEFT ARCHIVE FOR REFERENCE ONLY Routine 04/07/2025 12:[address] EXTREMITY LEFT ARCHIVE FOR REFERENCE ONLY Routine 04/07/2025 12:[address] EXTREMITY RIGHT ARCHIVE FOR REFERENCE ONLY Routine 04/07/2025 12:10 AM EDT CR CHEST ARCHIVE FOR REFERENCE ONLY Routine 04/07/2025 12:[address] EXTREMITY LEFT ARCHIVE FOR REFERENCE ONLY Routine 04/07/2025 12:[address] EXTREMITY RIGHT ARCHIVE FOR REFERENCE ONLY Routine 04/07/2025 12:07 AM EDT CR EXTREMITY RIGHT ARCHIVE FOR REFERENCE ONLY Routine 04/07/2025 12:[address] EXTREMITY RIGHT ARCHIVE FOR REFERENCE ONLY Routine 04/07/2025 12:06 AM EDT from Last 3 Months Results * (ABNORMAL) POCT Glucose, Fingerstick (04/14/2025 4:08 PM EDT) Only the most recent of38 resultswithin the time period is included. POC Glucose 117(H) 65 - 99 mg/dL 04/14/2025 4:09 PM EDT Blood specimen / Unknown 04/14/2025 4:08 PM EDT 04/14/2025 4:09 PM EDT us Kenton Medina MD POINT OF CARE TEST ORDERABLES Fi nal Result Performing Organization Address [facility] de Phone Number HOSPITAL LAB See Below * ECG 12 lead (04/14/2025 10:13 AM EDT) Only the most recent of4 resultswithin the time period is included. Pathologist [facility] Ventricular rate 64 BPM EKG [facility] Atrial rate 64 BPM EKG [facility] P-R interval 136 ms EKG [facility] QRS duration 84 ms EKG [facility] Q-T interval 428 ms EKG [facility] QTC calculation (Bazett) 442 ms EKG [facility] P axis 52 degrees EKG [facility] R axis 72 degrees EKG [facility] T axis 68 degrees EKG [facility] 04/14/2025 10:1 3 AM EDT Narrative EKG [facility] - 04/14/2025 1:09 PM EDT Normal [...] Arabella Avalos PA-C ECG ORDERABLES Final Result Performing Organization Address [facility] Co de Phone Number [facility] [facility] * (ABNORMAL) Complete Blood Count, WITHOUT Differential (routine) (04/14/2025 4:05 AM EDT) Only the most recent of13 resultswithin the time period is included. White Blood Cell Count 13.7(H) 4.0 - 11.0 Thou/uL 04/14/2025 4:53 AM [facility] Platelet Count 616(H) 150 - 450 Thou/uL 04/14/2025 4:53 AM [facility] Hemoglobin 7.3(L) 11.7 - 15.7 g/dL 04/14/2025 4:53 AM [facility] Hematocrit 23.3(L) 35.0 - 47.0 % 04/14/2025 4:53 AM [facility] Red Blood Cell Count 2.68(L) 4.00 - 5.40 Mil/uL 04/14/2025 4:53 AM [facility] MCV 87 80 - 100 fL 04/14/2025 4:53 AM [facility] MCH 27.2 26.0 - 34.0 pg 04/14/2025 4:53 AM [facility] MCHC 31.3 30.0 - 36.0 g/dL 04/14/2025 4:53 AM [facility] RDW 17.9(H) 11.5 - 14.5 % 04/14/2025 4:53 AM [facility] MPV 9.8 7.5 - 12.5 fL 04/14/2025 4:53 AM [facility] nRBC 0.4(H) 0.0 - 0.1 /100 WBC 04/14/2025 4:53 AM [facility] nRBC, Absolute 0.05(H) 0.00 - 0.02 Thou/uL 04/14/2025 4:53 AM [facility] Blood Blood specimen / Unknown 04/14/2025 4:05 AM EDT 04/14/2025 4:35 AM EDT us Lucho Donaldson MD LAB BLOOD ORDERABLES Final Re sult [address] [address], [address] [address] * (ABNORMAL) Phosphorus (04/14/2025 4:05 AM EDT) Only the most recent of11 resultswithin the time period is included. Phosphorus 2.5(L) 2.7 - 4.5 mg/dL 04/14/2025 5:06 AM EDT [facility] Blood Blood specimen / Unknown 04/14/2025 4:05 AM EDT 04/14/2025 4:35 AM EDT us Lucho Donaldson MD LAB BLOOD ORDERABLES Final Re sult Performing Organization Address City/[facility] [place] [address], [place] [address] * Magnesium (04/14/2025 4:05 AM EDT) Only the most recent of11 resultswithin the time period is included. Magnesium 1.9 1.6 - 2.7 mg/dL 04/14/2025 5:06 AM EDT [facility] Blood Blood specimen / Unknown 04/14/2025 4:05 AM EDT 04/14/2025 4:35 AM EDT Lucho Donaldson MD LAB BLOOD ORDERABLES Final Re sult Performing Organization Address [facility] [place] [address], [place] [address] * (ABNORMAL) Basic Metabolic Panel (04/14/2025 4:05 AM EDT) Only the most recent of11 resultswithin the time period is included. Glucose 111(H) 65 - 99 mg/dL 04/14/2025 5:06 AM EDT [facility] Comment:Fasting: <100 mg/dL, Non-Fasting: <200 mg/dL (ADA 2005) Blood Urea Nitrogen (BUN) 11 8 - 21 mg/dL 04/14/2025 5:06 AM EDT [facility] Creatinine 0.74 0.40 - 1.10 mg/dL 04/14[facility]2025 5:[facility] >90 >59 04/14/2025 5:06 AM [facility] Comment:CKD-EPI (2020) in mL /min/1.73 sq meters. Sodium 137 136 - 145 mmol/L 04/14/2025 5:06 AM [facility] Potassium 3.4 3.4 - 5.3 mmol/L 04/14/2025 5:06 AM [facility] Chloride 104 98 - 107 mmol/L 04/14/2025 5:06 AM [facility] CO2 26 22 - 33 mmol/L 04/14/2025 5:06 AM [facility] Anion Gap 7 7 - 17 04/14/2025 5:06 AM [facility] Calcium 7.3(L) 8.7 - 10.5 mg/dL 04/14/2025 5:06 AM [facility] BUN/Creatinine Ratio 15 10.0 - 25.0 Ratio 04/14/2025 5:06 AM [facility] Blood Blood specimen / Unknown 04/14/2025 4:05 AM EDT 04/14/2025 4:35 AM EDT us Lucho Donaldson MD LAB BLOOD ORDERAB[place] [address], [place] [address] * Vancomycin Level, Random (04/13/2025 7:00 AM EDT) Only the most recent of2 resultswithin the time period is included. Vancomycin, Random 20 mg/L 04/13/2025 8:15 AM EDT [facility] Comment:No reference range e stablished for random levels. Time of Last Dose Information not given 04/13/2025 6:22 AM EDT [facility] Blood Blood specimen / Unknown 04/13/2025 7:00 AM EDT 04/13/2025 7:41 AM EDT us Lucho Donaldson MD LAB BLOOD ORDERABLES Final Re sult [address] [place] [address], [facility] [address] [place] [address] * XR Abdomen 1 view (04/11/2025 12:15 PM EDT) Only the most recent of2 resultswithin the time period is included. Anatomical Region Laterality Modality Abdomen Computed Radiogr [...] IMG DIAGNOSTIC IMAGING ORDERABLES Final Result * Transfuse RBC's:Transfusion Indications: Hemoglobin less than 7 gm/dl or HCT less than 21%; Transfusion duration per unit (hrs): 1 (04/11/2025 5:17 AM EDT) Only the most recent of5 resultswithin the time period is included. Daniel Clay Philip PA-C BLOOD TRANSFUSION ORDERA BLES Final Result * (ABNORMAL) Thromboelastograph (TEG) (04/11/2025 2:18 AM EDT) Only the most recent of2 resultswithin the time period is included. Reaction Time 5.1 5 - 10 minutes 04/11/2025 4:07 AM [facility] Reaction Time,Heparinized 4.9(L) 5 - 10 minutes 04/11/2025 4:07 AM [facility] Fibrin Function 1.1 1 - 3 minutes 04/11/2025 4:07 AM [facility] Fibrin Function,Heparini zed 0.8(L) 1 - 3 minutes 04/11/2025 4:07 AM [facility] Angle 74.8(H) 53 - 72 degrees 04/11/2025 4:07 AM [facility] Angle, Heparinized 78.7(H) 53 - 72 degrees 04/11/2025 4:07 AM [facility] Max Amplitude 72.6(H) 50 - 70 mm 04/11/2025 4:07 AM [facility] Max Amplitude,Heparin ized 74.8(H) 50 - 70 mm 04/11/2025 4:07 AM [facility] %Lysis 30 min 0.0 0 - 8 % 04/11/2025 4:07 AM [facility] %Lysis 30 min,Heparinized 0.6 0 - 8 % 04/11/2025 4:07 AM [facility] Anticoagulant NO ANTI COAGULANT MEDS 04/11/2025 2:18 AM [facility] Blood Blood specimen / Unknown 04/11/2025 2:18 AM EDT 04/11/2025 2:28 AM EDT us Daniel Palacios PA-C LAB BLOOD ORDERABLES Fin al Result [address] [address], [address] [address] * ECHOCARDIOGRAM COMPREHENSIVE (04/10/2025 8:56 AM EDT) [...] previous study for comparison in our system. us Ani Brown APRN CV ECHO ORDERABLES Final Result * Prepare RBC's:Prepare in: Units; Number of Units: 1; Transfusion Indications: Hemoglobin greater than 7 gm/dl or HCT greater than 21% but Acute blood loss greater than 500 ml and symptoms not corrected by volume (04/10/2025 3:50 AM EDT) Only the most recent of4 resultswithin the time period is included. Units Ordered 1 04/10/2025 3:49 AM EDT [facility] 04/10/2025 3:50 AM EDT 04/10/2025 3:51 AM EDT us Luda Houser APRN BLOOD BANK PRODUCT ORDERABLE S Final Result [address] [address], [address] [address] * Hemoglobin A1c with Estimated Average Glucose (Routine) (04/10/2025 12:06 AM EDT) Hemoglobin A1C 5.3 <5.7 % 04/10/2025 2:13 AM EDT [facility] Comment: A1c% Interpretation 5.7 - 6.0 Increase risk of diabetes 6.1 - 6.4 Higher risk of diabetes > or = 6.5 Consistent with diabetes Diabetes Care, 33(Supp 1):S1-S61, 2010 Estimated Average Glucose 105 mg/dL 04/10/2025 2:13 AM EDT [facility] Blood Blood specimen / Unknown 04/10/2025 12:06 AM EDT 04/10/2025 1:03 AM EDT Sophia Yarbrough MD LAB BLOOD ORDERAB[place] [address], [place] [address] * (ABNORMAL) Calcium, Ionized (04/10/2025 12:06 AM EDT) Only the most recent of3 resultswithin the time period is included. Calcium, Ionized 1.11(L) 1.17 - 1.33 mmol/L 04/10/2025 1:08 AM EDT [facility] Blood Blood specimen / Unknown 04/10/2025 12:06 AM EDT 04/10/2025 1:03 AM EDT Luda Houser APRN LAB BLOOD [place]AB[place] [address], [place] [address] * CREATINE KINASE (CK) (04/09/2025 9:29 PM EDT) Only the most recent of5 resultswithin the time period is included. Creatine Kinase (CK) 123 24 - 173 U/L 04/09/2025 10:31 PM EDT [facility] Blood Blood specimen / Unknown 04/09/2025 9:29 PM EDT 04/09/2025 10:07 PM EDT us Ani Bolaños Kevin HDZ LAB BLOOD ORDERABLES Fin al Result Performing Organization Address [facility] [place] [address], [place] [address] * LACTIC ACID, PLASMA (04/09/2025 5:20 PM EDT) Only the most recent of2 resultswithin the time period is included. Lactic Acid 1.4 0.5 - 1.9 mmol/L 04/09/2025 6:25 PM EDT [facility] Blood Blood specimen / Unknown 04/09/2025 5:20 PM EDT 04/09/2025 5:53 PM EDT us Sophia Yarbrough MD LAB BLOOD ORDERABLES F inal Result Performing Organization Address City/[facility]/[place] [address], [place] [address] * Transfuse Fresh Frozen Plasma: (04/09/2025 4:36 PM EDT) us Олег Vasquez DO BLOOD TRANSFUSION ORDERABLES Final Result * Prepare Fresh Frozen Plasma:Prepare in: Units; Number of Units: 1; Transfusion Indications: aPTT greater than upper limit of normal (04/09/2025 4:07 PM EDT) Units Ordered 1 04/09/2025 4:07 PM EDT [facility] Unit Number [id number] 04/09/2025 4:15 PM EDT [facility] Blood Component Type THAWED PLASMA 04/09/2025 4:15 PM EDT [facility] Unit Division 00 04/09/2025 4:15 PM EDT [facility] Unit Status ISSUED,FINAL 04/10/2025 12:32 AM EDT [facility] Transfusion Status OK TO TRANSFUSE 04/09/2025 4:15 PM EDT [facility] 04/09/2025 4:07 PM EDT 04/09/2025 4:14 PM EDT us Олег Vasquez DO BLOOD BANK PRODUCT ORDERABLE S Final Result HOSPITAL LAB See Below [facility] [address] [place] [address] * Blood Culture (04/09/2025 11:10 AM EDT) Only the most recent of2 resultswithin the time period is included. Culture Sterile after 5 days 04/14/2025 7:08 AM EDT [facility] Blood Blood specimen / Unknown 04/09/2025 11:10 AM EDT 04/09/2025 12:05 PM EDT Comment:Blood us Anisa Perez MD LAB BLOOD ORDERABLES Final Resu lt [facility] [address] [place] [address], * Type and Screen (04/09/2025 10:20 AM EDT) ABO/Rh A POSITIVE 04/09/2025 12:20 PM EDT [facility] Antibody Screen NEGATIVE 04/09/2025 12:20 PM EDT [facility] Specimen Expiration 04/12/2025 04/09/2025 12:20 PM EDT [facility] Blood Bank Comment Second Sample needed for Blood Transfusion 04/09/2025 12:20 PM EDT [facility] Unit Number [id number] 04/09/2025 2:44 PM EDT [facility] Blood Component Type LEUKOREDUCED RED CELLS 04/09/2025 2:44 PM EDT [facility] Unit Division 00 04/09/2025 2:44 PM EDT [facility] Unit Status ISSUED,FINAL 04/10/2025 12:32 AM EDT [facility] Transfusion Status OK TO TRANSFUSE 04/09/2025 2:44 PM EDT [facility] Crossmatch Result Electronically Compatible 04/09/2025 2:44 PM EDT [facility] Unit Number [id number] 04/09/2025 2:44 PM EDT [facility] Blood Component Type LEUKOREDUCED RED CELLS 04/09/2025 2:44 PM EDT [facility] Unit Division 00 04/09/2025 2:44 PM EDT [facility] Unit Status ISSUED,FINAL 04/10/2025 12:32 AM EDT [facility] Transfusion Status OK TO TRANSFUSE 04/09/2025 2:44 PM EDT [facility] Crossmatch Result Electronically Compatible 04/09/2025 2:44 PM EDT [facility] Unit Number [id number] 04/09/2025 4:17 PM T [facility] Blood Component Type LEUKOREDUCED RED CELLS 04/09/2025 4:17 PM EDT [facility] Unit Division 00 04/09/2025 4:17 PM EDT [facility] Unit Status ISSUED,FINAL 04/10/2025 12:32 AM T [facility] Transfusion Status OK TO TRANSFUSE 04/09/2025 4:17 PM EDT [facility] Crossmatch Result Electronically Compatible 04/09/2025 4:17 PM EDT [facility] Unit Number [id number] 04/09/2025 4:17 PM T [facility] Blood Component Type LEUKOREDUCED RED CELLS 04/09/2025 4:17 PM EDT [facility] Unit Division 00 04/09/2025 4:17 PM EDT [facility] Unit Status ISSUED,FINAL 04/11/2025 12:30 AM EDT [facility] Transfusion Status OK TO TRANSFUSE 04/09/2025 4:17 PM EDT [facility] Crossmatch Result Electronically Compatible 04/09/2025 4:17 PM EDT [facility] Unit Number [id number] 04/11/2025 1:43 AM [facility] Blood Component Type LEUKOREDUCED RED CELLS 04/11/2025 1:43 AM EDT [facility] Unit Division 00 04/11/2025 1:43 AM EDT [facility] Unit Status ISSUED,FINAL 04/12/2025 12:17 AM EDT [facility] Transfusion Status OK TO TRANSFUSE 04/11/2025 1:43 AM EDT [facility] Crossmatch Result Electronically Compatible 04/11/2025 1:43 AM EDT [facility] Blood Blood specimen / Unknown 04/09/2025 10:20 AM EDT 04/09/2025 11:11 AM EDT Comment:Blood Sophia Yarbrough MD BLOOD BANK TEST ORDERA BLES Final Result [place] [address] * ABO Confirmation (04/09/2025 3:24 AM EDT) ABO/Rh A POSITIVE 04/09/2025 2:25 PM EDT [facility] Blood specimen / Unknown 04/09/2025 3:24 AM EDT 04/09/2025 1:21 PM EDT Generic Provider BLOOD BANK TEST ORDERABLES Nurys l Result Performing Organization Address [facility] Co de Phone Number [address] [address], [address] [address] * CT Upper extremity with contrast-Bilateral (04/08/2025 [...] along the right lateral abdominal wall. Ani Bolaños Kevin CERTIFIED HOME HEALTH AIDE IMG CT ORDERABLES Edited Result - Final * CT Thorax w/contrast (04/08/2025 11:50 PM [...] along the right lateral abdominal wall. Ani Brwon APRN IMG CT ORDERABLES Edited Result - [...] IJ central venous catheter tip beyond the [id number]. The visualized orbits and paranasal air sinuses [...] IJ central venous catheter tip beyond the [id number]. The visualized orbits and paranasal air sinuses [...] chest wall abscess/soft tissue infection. Ani Brown CERTIFIED HOME HEALTH AIDE IMG CT ORDERABLES Final Result * CT Abdomen+pelvis w/contrast (04/08/2025 11:50 PM [...] the right lateral abdominal wall. Ani Brown CERTIFIED HOME HEALTH AIDE IMG CT ORDERABLES Edited Result - Final * XR Chest 1 view-Portable (STAT) (04/08/2025 9:34 PM EDT) Only the most recent of2 resultswithin the time period is included. Anatomical Region Laterality Modality Chest Computed Radiogr [...] visualized large colonic stool burden. Interpreted by: mEilee Casas MD Assistant Professor Of Biology I personally reviewed the images and the [...] stool burden. Interpreted by: Emilee Casas MD Assistant Professor Of Biology I personally reviewed the images and the resident's preliminary report and AGREE with the report as it is now presented ([id number]). Ani Brown APRN IMG DIAGNOSTIC IMAGING O RDERABLES Final Result * (ABNORMAL) Triglycerides (04/08/2025 9:15 PM EDT) Triglycerides 234(H) <150 mg/dL 04/08/2025 10:46 PM EDT [facility] Blood Blood specimen / Unknown 04/08/2025 9:15 PM EDT 04/08/2025 10:05 PM EDT Ani Brown APRN LAB BLOOD ORDERABLES Fin al Result [address] [address], [address] [address] * ANES INTUBATION (04/08/2025 8:22 PM EDT) Only the most recent of2 resultswithin the time period is included. Narrative Sharron Marcial CRNA - 04/08/2025 8:22 PM EDT Sharron Marcial CRNA 04/08/2025 8:23 PM Anesthesia Procedure Note - Elective intubation Patient Name: Molly Beasley : 1990 Patient location: [place] Procedure indications: airway protection Procedure diagnosis: Anesthesia Performed by: Resident/PATCH FINISHER MD Sharron Marley CRNA Chart Verification Airway: [...] Dentition: same as baseline Complications: no complications us Cuauhtemoc Collins MD IN ANESTHESIA Final Result * (ABNORMAL) Erythrocyte Sedimentation Rate (ESR) (04/08/2025 2:05 PM EDT) Erythrocyte Sediment Rate (ESR) 27(H) <20 MM/HR 04/08/2025 3:47 PM EDT [facility] Blood Blood specimen / Unknown 04/08/2025 2:05 PM EDT 04/08/2025 3:16 PM EDT us Anisa Perez MD LAB BLOOD ORDERABLES Final Resu lt [address] [address], [address] [address] * (ABNORMAL) C-REACTIVE PROTEIN (04/08/2025 2:05 PM EDT) C-Reactive Protein 11.38(H) 0 - 0.49 mg/dL 04/08/2025 4:11 PM EDT [facility] Blood Blood specimen / Unknown 04/08/2025 2:05 PM EDT 04/08/2025 3:16 PM EDT us Anisa Perez MD LAB BLOOD ORDERABLES Final Resu lt Performing Organization Address City/[facility]/ZIP Co de Phone Number [facility] [address] [place] [address], [facility] [address] [place] [address] * HIV 1/2 Ag/Ab CMIA Reflex to Confirmation (04/08/2025 8:49 AM EDT) HIV 1/2 Ag/Ab CMIA Nonreactive Nonreactive 04/09/2025 12:07 PM EDT [facility] Comment: Results show no [...] PA-C LAB BLOOD ORDERABLES Final Re sult [facility] [address] [place] [address], * (ABNORMAL) Hepatitis Panel, Acute (04/08/2025 8:49 AM EDT) Hepatitis A Antibody IgM Nonreactive Nonreactive 04/09/2025 12:07 PM EDT [facility] Hepatitis B Core Antibody IgM Nonreactive Nonreactive 04/09/2025 12:07 PM EDT [facility] Hepatitis B Surface Ag Screen Nonreactive Nonreactive 04/09/2025 12:07 PM EDT [facility] Hepatitis C Antibody Reactive(A) Nonreactive 04/09/2025 12:07 PM EDT [facility] Comment:Presumptive evidence of antibodies to HCV. Hepatitis C Viral Load, Quantitative results to follow. Hepatitis Interpretation: These results indicate Hepatitis C infection. 04/09/2025 12:07 PM EDT [facility] Blood Blood specimen / Unknown 04/08/2025 8:49 AM EDT 04/08/2025 9:29 AM EDT us Daisy Galdamez PA-C LAB BLOOD ORDERABLES Final Re sult [facility] [address] [place] [address], [place] * (ABNORMAL) Tissue Culture (aerobic, anaerobic + Gram stain) (04/07/2025 3:47 PM EDT) Gram stain suggestive of Many neutrophils Red blood cells Gram positive cocci 04/07/2025 10:06 PM EDT [facility] Culture Methicillin Resistant Staph aureus (MRSA)(A) 04/14/2025 9:39 AM EDT [facility] Culture No anaerobes isolated after 7 days 04/14/2025 9:39 AM EDT [facility] Tissue (Arm, Upper right) [...] MICROBIOLOGY - GENERAL OR DERABLES Final Result [facility] [address] [place] [address], [place] * Central Line / PA Cath (04/07/2025 3:05 PM EDT) Narrative Juan J Hagan MD - 04/07/2025 3:05 PM EDT Juan J Hagan MD 04/07/2025 4:37 PM Anesthesia Procedure Note - Insertion -right internal jugular Patient Name: Molly Beasley : 1990 Patient location: [place] Procedure diagnosis: Cellulitis Preanesthetic Checklist . Patient's pre-procedure mental status: anesthetized Procedure Preparation Skin prep: skin prepped with Betadine and 2% chlorhexidine - completely dried prior to procedure Sterile barriers in place: cap, gloves, gown, large sterile sheet and mask Procedure Details Patient position: Trendelenburg Ultrasound guidance utilized Catheter: 7 Fr Number of attempts: 1 Post Procedure Post-procedure care: biopatch applied and line sutured Assessment: blood return through all ports and free fluid flow Guidewire: utilized and removed with entire length intact and undamaged No complications us Juan J Hagan MD IN ANESTHESIA Final Result * (ABNORMAL) Aerobic culture (Gram stain included) (04/07/2025 3:02 PM EDT) Only the most recent of2 resultswithin the time period is included. Gram stain suggestive of Many neutrophils Few squamous cells Red blood cells Gram positive cocci 04/07/2025 5:53 PM EDT [facility] Culture Methicillin Resistant Staph aureus (MRSA) Susceptibility of the same isolate identification, from the same apparent body site is only performed once per 5 calendar days. See susceptibilities reported on specimen collected 04/07/2025 (A) 04/09/2025 1:12 PM EDT [facility] Aspirate, Abscess (Arm, Upper right) 04/07/2025 3:02 PM EDT Db Lynn MD MICROBIOLOGY - GENERAL OR DERABLES Final Result [facility] [address] [place] [address], [place] [facility] [address] [place] [address] * Anaerobic Culture (04/07/2025 3:02 PM EDT) Culture No anaerobes isolated after 7 days 04/14/2025 9:39 AM EDT [facility] Aspirate, Abscess (Arm, Upper right) 04/07/2025 3:02 PM EDT us Db Lynn MD MICROBIOLOGY - GENERAL OR DERABLES Final Result [facility] [address] [place] [address], * (ABNORMAL) POCT , Urine (04/07/2025 2:14 PM EDT) Preg Test, Ur Negative Negative Lot Number [id number] Network Account Manager Pass Pass Urine 04/07/2025 2:14 PM EDT [...] concerning for abscess. us Lucho Donaldson MD [facility] [place] ORDERABLES Edited Resu lt - Final [...] and lower extremity appear normal Keyana GARRETT [facility] [place] ORDERABLES Final Re sult * MRI [...] IMG MRI ORDERABLES Final Re sult * ZEINAB Archive for reference only CT (04/07/2025 6:55 AM EDT) Only the most recent of2 resultswithin the time period is included. [facility] 04/07/2025 6:51 AM EDT This order has been auto-finalized and does not contain a result. us File Room Provider IMG DIGITIZE FILMS Final Resu lt Performing Organization Address [facility] de Phone Number ADRIAN [phone] * CT Extremity Left Archive for Reference Only (04/07/2025 6:52 AM EDT) Only the most recent of6 resultswithin the time period is included. [facility] 04/07/2025 6:52 AM EDT This study has been auto finalized and does not contain a result. File Room Provider IMG DIGITIZE FILMS Final Resu lt Performing Organization Address [facility] de Phone Number ADRIAN [phone] * CR Extremity Right Archive for Reference only (04/07/2025 6:52 AM EDT) Only the most recent of2 resultswithin the time period is included. [facility] - 04/07/2025 6:52 AM EDT This study has been auto finalized and does not contain a result. us File Room Provider IMG DIGITIZE FILMS Final Resu lt Performing Organization Address [facility] de Phone Number ADRIAN [phone] * CT Extremity Right Archive for Reference Only (04/07/2025 6:52 AM EDT) Only the most recent of6 resultswithin the time period is included. [facility] 04/07/2025 6:52 AM EDT This study has been auto finalized and does not contain a result. us File Room Provider IMG DIGITIZE FILMS Final Resu Performing Organization Address [facility] Co de Phone Number [facility] [phone] * CR Chest Archive for Reference only (04/07/2025 6:51 AM EDT) Only the most recent of2 resultswithin the time period is included. Narrative [facility] - 04/07/2025 6:51 AM EDT This study has been auto finalized and does not contain a result. us File Room Provider IMG DIGITIZE FILMS Final Resu Performing Organization Address [facility] de Phone Number LENNOX [phone] * CT Upper extremity with contrast-Right (04/07/2025 [...] technique DLP: 1068 mGy-cm FINDINGS The large [id number] and positioning limits evaluation. Subcutaneous soft tissues: [...] technique DLP: 1068 mGy-cm FINDINGS The large [id number] and positioning limits evaluation. Subcutaneous soft tissues: [...] lower lobe consolidation and right pleural effusion. [facility] Myriam De La Fuente PA-C [place] [facility] ORDERABLES Final Result from Last 3 Months Additional Health Concerns Infection Onset Date Last Indicated MRSA - Increased Transmissio n Risk Comment:Criteria for Increased Transmission Risk: -Wound unable to be covered or with uncontained drainage -Incontinent of urine/stool -Unable to contain respiratory secretions Precautions required until above criteria are resolved. 04/07/2025 04/07/2025 Insurance [facility] Advance Directives * Full Code (Latest Code Status on File) Date Activated Date Inactivated Comments 04/07/2025 6:11 PM * Full Code Date Activated Date Inactivated Comments 04/06/2025 10:29 PM 04/07/2025 6:11 PM Care Teams Communications Billing Analyst Relationship Specialty Start Date End Date System, Provider Not In PCP - General 04/09/25
--- OUTSIDE RECORDS SUMMARY | 2025-04-14 21:24 | XMS_ITS | Clinical Summary ---
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 Not on sylvia e 04/14/2025 Are you concerned about learning? Not on file 04/14/2025 No 04/14/2025 No 04/14/2025 Digital Access Answer Date Recorded No 04/14/2025 No 04/14/2025 Reliable internet access at home? Not on file 04/14/2025 Device with a working camera? Not on file Comments Unknown Sex and Gender Information Value Date Recorded Sex Assigned at Not on file Legal Sex Female 12:16 PM EDT Gender Identity Not on file Sexual Orientation Not on file Plan of Treatment Not on file Medical Devices Not on file Insurance [facility] [place] [facility] Additional Source Comments The information contained in this document represents components of the legal health record. It is not the complete legal health record.[facility]
--- OUTSIDE RECORDS SUMMARY | 2025-04-14 21:24 | XMS_ITS | Encounter Summary ---
Author Organization [facility] Address [address] [facility] [address] [place] [address] Phone Care Team Providers Care Graduate Student Instructor Name Role Phone Unavailable Primary Care Provider Unavailabl e Reason for Referral * Home Health Care - Pending Review Specialty Diagnoses / Procedures Referred By Contrenea t Referred To Contact Home Health Services Jessica Reid MD [address] [place] [address] Phone: tel: [email or web address] [address] [place] [phone] Phone: tel: Referral ID Status Reason Start Date Expiration Date V isits Requested Visits Authorized [id number] Pending Review 04/14/2025 04/14/2026 1 1 Encounter Details Date Type Department Care Team (Late st Contact Info) Description 04/14/2025 Orders Only [facility] [address] [place], [place] [phone] Jessica Reid MD [address] [place] [address] Social History Tobacco Use Types Packs/Day Years [...] on file Sexual Orientation Not on file documented as of this encounter Plan of Treatment Scheduled Referrals Name Type Priority Associated Diagnoses Orde r Schedule 4NEXT REFERRAL TO HOME HEALTH Outpatient Referral Routine Ordered: 04/14/2025 documented as of this encounter Visit Diagnoses Not on filedocumented in this encounter Additional Source Comments The information contained in this document represents components of the legal health record. It is not the complete legal health record.[facility]
--- OUTSIDE RECORDS SUMMARY | 2025-04-14 21:25 | XMS_ITS ---
Author Name [facility] Organization Unknown Results Test Name/Text Value Interpretation Date Range Source POC Glucose 117.0 mg/dL Above high normal 04/14/2025 65 - 99 [facility] POC Glucose 147.0 mg/dL Above high normal 04/14/2025 65 - 99 [facility] POC Glucose 139.0 mg/dL Above high normal 04/14/2025 65 - 99 [facility] POC Glucose 123.0 mg/dL Above high normal 04/14/2025 65 - 99 [facility] Phosphate SerPl-mCnc 2.5 mg/dL Below low normal 04/14/2025 2 .7 - 4.5 [facility]CT Creat SerPl-mCnc 0.74 mg/dL 04/14/2025 0.4 - 1.1 H HCCT Glucose SerPl-mCnc 111.0 mg/dL Above high normal 04/14/2025 65 - 99 [facility] Anion Gap Bld-sCnc 7.0 04/14/2025 7 - 17 [facility] Sodium SerPl-sCnc 137.0 mmol/L 04/14/2025 136 - 14 5 HHCCT GFR/BSA.pred SerPlBld NHK-KVI-WjUGef >90.0 04/14/2025 59 - HHCCT Potassium SerPl-sCnc 3.4 mmol/L 04/14/2025 3.4 - 5 .3 H[facility]CT BUN/Creat SerPl 15.0 Ratio 04/14/2025 10 - 25 HH CCT Chloride SerPl-sCnc 104.0 mmol/L 04/14/2025 98 - 1 07 H[facility]CT BUN SerPl-mCnc 11.0 mg/dL 04/14/2025 8 - [address] CO2 SerPl-sCnc 26.0 mmol/L 04/14/2025 22 - 33 HH CCT Calcium SerPl-mCnc 7.3 mg/dL Below low normal 04/14/2025 8.7 - 10.5 HHCCT Magnesium SerPl-mCnc 1.9 mg/dL 04/14/2025 1.6 - 2. 7 HHCCT PMV Bld Auto 9.8 fL 04/14/2025 7.5 - 12.5 HHCCT RDW RBC Auto-Rto 17.9 % Above high normal 04/14/2025 1 1.5 - 14.5 HHCCT RBC num Bld Auto 2.68 Mil/uL Below low normal 04/14/2025 4 - 5.4 H[facility]CT Platelet num Bld Auto 616.0 Thou/uL Above high normal 04/14/2025 150 - 450 H[facility]CT WBC num Bld Auto 13.7 Thou/uL Above high normal 04/14/2025 4 - 11 [facility]CT Hgb Bld-mCnc 7.3 g/dL Below low normal 04/14/2025 11.7 - 15.7 HHCCT MCH RBC Qn Auto 27.2 pg 04/14/2025 26 - [address] MCV RBC Auto 87.0 fL 04/14/2025 80 - 100 H[facility]CT nRBC/100 WBC Bld Auto-Rto 0.4 /100 WBC Above high normal 04/14/2025 0 - 0.1 HHCCT nRBC num Bld Auto 0.05 Thou/uL Above high normal 04/14/2025 0 - 0.02 HHCCT Hct VFr Bld Auto 23.3 % Below low normal 04/14/2025 35 - 47 HHCCT MCHC RBC Auto-mCnc 31.3 g/dL 04/14/2025 30 - 36 HHCCT POC Glucose 101.0 mg/dL Above high normal 04/14/2025 65 - 99 [facility]CT POC Glucose 111.0 mg/dL Above high normal 04/14/2025 65 - 99 [facility]CT POC Glucose 109.0 mg/dL Above high normal 04/13/2025 65 - 99 H[facility]CT POC Glucose 125.0 mg/dL Above high normal 04/13/2025 65 - 99 HHCCT Sodium SerPl-sCnc 137.0 mmol/L 04/13/2025 136 - 14 5 HHCCT Potassium SerPl-sCnc 3.7 mmol/L 04/13/2025 3.4 - 5 .3 HHCCT Anion Gap Bld-sCnc 7.0 04/13/2025 7 - 17 HHCCT Chloride SerPl-sCnc 104.0 mmol/L 04/13/2025 98 - 1 07 HHCCT BUN/Creat SerPl 15.0 Ratio 04/13/2025 10 - 25 HH CCT Glucose SerPl-mCnc 116.0 mg/dL Above high normal 04/13/2025 65 - 99 HHCCT GFR/BSA.pred SerPlBld XNY-DCF-TuBWpy >90.0 04/13/2025 59 - HHCCT CO2 SerPl-sCnc 26.0 mmol/L 04/13/2025 22 - 33 HH CCT Calcium SerPl-mCnc 7.5 mg/dL Below low normal 04/13/2025 8.7 - 10.5 HHCCT BUN SerPl-mCnc 8.0 mg/dL 04/13/2025 8 - 21 HHCC T Creat SerPl-mCnc 0.55 mg/dL 04/13/2025 0.4 - 1.1 H HCCT Magnesium SerPl-mCnc 2.1 mg/dL 04/13/2025 1.6 - 2. 7 HHCCT Phosphate SerPl-mCnc 4.1 mg/dL 04/13/2025 2.7 - 4. 5 HHCCT POC Glucose 102.0 mg/dL Above high normal 04/13/2025 65 - 99 HHCCT Vancomycin SerPl-mCnc 20.0 mg/L 04/13/2025 HHCCT Time of last dose Information not given 04/13/2025 HHCCT POC Glucose 91.0 mg/dL 04/13/2025 65 - 99 HHCCT Phosphate SerPl-mCnc 2.8 mg/dL 04/13/2025 2.7 - 4. 5 HHCCT CO2 SerPl-sCnc 27.0 mmol/L 04/13/2025 22 - 33 HH CCT Chloride SerPl-sCnc 98.0 mmol/L 04/13/2025 98 - 10 7 HHCCT Anion Gap Bld-sCnc 8.0 04/13/2025 7 - 17 HHCCT Sodium SerPl-sCnc 133.0 mmol/L Below low normal 04/13/2025 1 36 - 145 HHCCT BUN/Creat SerPl 17.0 Ratio 04/13/2025 10 - 25 HH CCT Calcium SerPl-mCnc 7.5 mg/dL Below low normal 04/13/2025 8.7 - 10.5 HHCCT GFR/BSA.pred SerPlBld MFL-DRK-VoCFrt >90.0 04/13/2025 59 - HHCCT BUN SerPl-mCnc 10.0 mg/dL 04/13/2025 8 - [address] Creat SerPl-mCnc 0.58 mg/dL 04/13/2025 0.4 - 1.1 H HCCT Potassium SerPl-sCnc 2.8 mmol/L Below low normal 04/13/2025 3.4 - 5.3 HHCCT Glucose SerPl-mCnc 102.0 mg/dL Above high normal 04/13/2025 65 - 99 HHCCT Magnesium SerPl-mCnc 2.0 mg/dL 04/13/2025 1.6 - 2. 7 HHCCT Hgb Bld-mCnc 7.8 g/dL Below low normal 04/13/2025 11.7 - 15.7 HHCCT nRBC/100 WBC Bld Auto-Rto 0.2 /100 WBC Above high normal 04/13/2025 0 - 0.1 HHCCT PMV Bld Auto 9.4 fL 04/13/2025 7.5 - 12.5 HHCCT Hct VFr Bld Auto 23.9 % Below low normal 04/13/2025 35 - 47 HHCCT RDW RBC Auto-Rto 17.6 % Above high normal 04/13/2025 1 1.5 - 14.5 HHCCT MCV RBC Auto 87.0 fL 04/13/2025 80 - 100 HHCCT WBC num Bld Auto 17.4 Thou/uL Above high normal 04/13/2025 4 - 11 HHCCT nRBC num Bld Auto 0.03 Thou/uL Above high normal 04/13/2025 0 - 0.02 HHCCT RBC num Bld Auto 2.76 Mil/uL Below low normal 04/13/2025 4 - 5.4 HHCCT Platelet num Bld Auto 696.0 Thou/uL Above high normal 04/13/2025 150 - 450 H[facility]CT MCHC RBC Auto-mCnc 32.6 g/dL 04/13/2025 30 - 36 HHCCT MCH RBC Qn Auto 28.3 pg 04/13/2025 26 - [address] POC Glucose 90.0 mg/dL 04/13/2025 65 - 99 HHCCT POC Glucose 131.0 mg/dL Above high normal 04/13/2025 65 - 99 HHCCT POC Glucose 99.0 mg/dL 04/12/2025 65 - 99 HHCCT POC Glucose 104.0 mg/dL Above high normal 04/12/2025 65 - 99 HHCCT POC Glucose 106.0 mg/dL Above high normal 04/12/2025 65 - 99 HHCCT POC Glucose 95.0 mg/dL 04/12/2025 65 - 99 HHCCT Glucose SerPl-mCnc 87.0 mg/dL 04/12/2025 65 - 99 HHCCT Chloride SerPl-sCnc 105.0 mmol/L 04/12/2025 98 - 1 07 HHCCT BUN/Creat SerPl 17.0 Ratio 04/12/2025 10 - 25 HH CCT GFR/BSA.pred SerPlBld SII-PJX-KsBXij >90.0 04/12/2025 59 - HHCCT Sodium SerPl-sCnc 141.0 mmol/L 04/12/2025 136 - 14 5 HHCCT Anion Gap Bld-sCnc 8.0 04/12/2025 7 - 17 HHCCT BUN SerPl-mCnc 9.0 mg/dL 04/12/2025 8 - 21 [facility] T Potassium SerPl-sCnc 3.5 mmol/L 04/12/2025 3.4 - 5 .3 HHCCT Calcium SerPl-mCnc 7.1 mg/dL Below low normal 04/12/2025 8.7 - 10.5 HHCCT Creat SerPl-mCnc 0.54 mg/dL 04/12/2025 0.4 - 1.1 H HCCT CO2 SerPl-sCnc 28.0 mmol/L 04/12/2025 22 - 33 HH CCT Magnesium SerPl-mCnc 2.0 mg/dL 04/12/2025 1.6 - 2. 7 HHCCT Phosphate SerPl-mCnc 3.3 mg/dL 04/12/2025 2.7 - 4. 5 HHCCT nRBC/100 WBC Bld Auto-Rto 0.2 /100 WBC Above high normal 04/12/2025 0 - 0.1 HHCCT MCHC RBC Auto-mCnc 32.7 g/dL 04/12/2025 30 - 36 HHCCT Hct VFr Bld Auto 22.6 % Below low normal 04/12/2025 35 - 47 HHCCT RDW RBC Auto-Rto 17.1 % Above high normal 04/12/2025 1 1.5 - 14.5 HHCCT nRBC num Bld Auto 0.03 Thou/uL Above high normal 04/12/2025 0 - 0.02 HHCCT Platelet num Bld Auto 474.0 Thou/uL Above high normal 04/12/2025 150 - 450 H[facility]CT Hgb Bld-mCnc 7.4 g/dL Below low normal 04/12/2025 11.7 - 15.7 HHCCT WBC num Bld Auto 17.5 Thou/uL Above high normal 04/12/2025 4 - 11 HHCCT RBC num Bld Auto 2.6 Mil/uL Below low normal 04/12/2025 4 - 5.4 HHCCT PMV Bld Auto 9.6 fL 04/12/2025 7.5 - 12.5 HHCCT MCH RBC Qn Auto 28.5 pg 04/12/2025 26 - [address] MCV RBC Auto 87.0 fL 04/12/2025 80 - 100 HHCCT POC Glucose 90.0 mg/dL 04/12/2025 65 - 99 HHCCT POC Glucose 89.0 mg/dL 04/12/2025 65 - 99 HHCCT POC Glucose 107.0 mg/dL Above high normal 04/11/2025 65 - 99 HHCCT POC Glucose 106.0 mg/dL Above high normal 04/11/2025 65 - 99 HHCCT POC Glucose 116.0 mg/dL Above high normal 04/11/2025 65 - 99 HHCCT MCH RBC Qn Auto 28.6 pg 04/11/2025 26 - [address] RDW RBC Auto-Rto 16.9 % Above high normal 04/11/2025 1 1.5 - 14.5 HHCCT PMV Bld Auto 9.4 fL 04/11/2025 7.5 - 12.5 HHCCT Platelet num Bld Auto 433.0 Thou/uL 04/11/2025 150 - 450 HHCCT MCHC RBC Auto-mCnc 32.8 g/dL 04/11/2025 30 - 36 HHCCT WBC num Bld Auto 22.1 Thou/uL Above high normal 04/11/2025 4 - 11 HHCCT RBC num Bld Auto 2.9 Mil/uL Below low normal 04/11/2025 4 - 5.4 HHCCT nRBC/100 WBC Bld Auto-Rto 0.2 /100 WBC Above high normal 04/11/2025 0 - 0.1 HHCCT Hct VFr Bld Auto 25.3 % Below low normal 04/11/2025 35 - 47 HHCCT MCV RBC Auto 87.0 fL 04/11/2025 80 - 100 HHCCT Hgb Bld-mCnc 8.3 g/dL Below low normal 04/11/2025 11.7 - 15.7 HHCCT nRBC num Bld Auto 0.04 Thou/uL Above high normal 04/11/2025 0 - 0.02 HHCCT POC Glucose 117.0 mg/dL Above high normal 04/11/2025 65 - 99 HHCCT Reaction Time 5.1 minutes 04/11/2025 5 - [address] [facility] [address] Max Amplitude,Heparinize d 74.8 mm Above high normal 04/11/2025 50 - 70 HHCCT %Lysis 30 min 0.0 % 04/11/2025 0 - 8 HHCCT Angle 74.8 degrees Above high normal 04/11/2025 53 - 72 HHCCT Angle, Heparinized 78.7 degrees Above high normal 04/11/2025 53 - 72 HHCCT %Lysis 30 min,Heparinized 0.6 % 04/11/2025 0 - 8 HHCCT Fibrin Function,Heparinized 0.8 minutes Below low normal 04/11/2025 1 - [address] Fibrin Function 1.1 minutes 04/11/2025 1 - 3 H HCCT Reaction Time,Heparinized 4.9 minutes Below low normal 04/11/2025 5 - 10 H[facility]CT Max Amplitude 72.6 mm Above high normal 04/11/2025 50 - 70 HHCCT Anticoagulant NO ANTI COAGULANT MEDS 04/11/2025 HHCCT Phosphate SerPl-mCnc 4.8 mg/dL Above high normal 04/11/2025 2.7 - 4.5 HHCCT Magnesium SerPl-mCnc 1.9 mg/dL 04/11/2025 1.6 - 2. 7 HHCCT Sodium SerPl-sCnc 139.0 mmol/L 04/11/2025 136 - 14 5 HHCCT Anion Gap Bld-sCnc 7.0 04/11/2025 7 - 17 HHCCT BUN SerPl-mCnc 9.0 mg/dL 04/11/2025 8 - 21 [facility] T CO2 SerPl-sCnc 26.0 mmol/L 04/11/2025 22 - 33 HH CCT Chloride SerPl-sCnc 106.0 mmol/L 04/11/2025 98 - 1 07 HHCCT Glucose SerPl-mCnc 115.0 mg/dL Above high normal 04/11/2025 65 - 99 HHCCT GFR/BSA.pred SerPlBld CSQ-DOX-UvBMqi >90.0 04/11/2025 59 - HHCCT Calcium SerPl-mCnc 7.1 mg/dL Below low normal 04/11/2025 8.7 - 10.5 HHCCT BUN/Creat SerPl 15.0 Ratio 04/11/2025 10 - 25 HH CCT Potassium SerPl-sCnc 3.5 mmol/L 04/11/2025 3.4 - 5 .3 HHCCT Creat SerPl-mCnc 0.61 mg/dL 04/11/2025 0.4 - 1.1 H HCCT nRBC num Bld Auto 0.04 Thou/uL Above high normal 04/11/2025 0 - 0.02 HHCCT MCV RBC Auto 82.0 fL 04/11/2025 80 - 100 HHCCT RBC num Bld Auto 2.31 Mil/uL Below low normal 04/11/2025 4 - 5.4 HHCCT Hct VFr Bld Auto 18.7 % Critically low 04/11/2025 35 - 47 HHCCT RDW RBC Auto-Rto 16.7 % Above high normal 04/11/2025 1 1.5 - 14.5 HHCCT Platelet num Bld Auto 434.0 Thou/uL 04/11/2025 150 - 450 HHCCT nRBC/100 WBC Bld Auto-Rto 0.2 /100 WBC Above high normal 04/11/2025 0 - 0.1 HHCCT MCHC RBC Auto-mCnc 33.3 g/dL 04/11/2025 30 - 36 HHCCT WBC num Bld Auto 19.5 Thou/uL Above high normal 04/11/2025 4 - 11 HHCCT Hgb Bld-mCnc 6.3 g/dL Below low normal 04/11/2025 11.7 - 15.7 HHCCT PMV Bld Auto 9.4 fL 04/11/2025 7.5 - 12.5 HHCCT MCH RBC Qn Auto 27.3 pg 04/11/2025 26 - [address] [facility] [address] POC Glucose 103.0 mg/dL Above high normal 04/11/2025 65 - 99 HHCCT POC Glucose 94.0 mg/dL 04/11/2025 65 - 99 CCT POC Glucose 126.0 mg/dL Above high normal 04/10/2025 65 - 99 HHCCT nRBC num Bld Auto 0.06 Thou/uL Above high normal 04/10/2025 0 - 0.02 CCT Hgb Bld-mCnc 7.4 g/dL Below low normal 04/10/2025 11.7 - 15.7 HHCCT RDW RBC Auto-Rto 16.6 % Above high normal 04/10/2025 1 1.5 - 14.5 HHCCT MCHC RBC Auto-mCnc 33.9 g/dL 04/10/2025 30 - 36 HHCCT MCH RBC Qn Auto 27.9 pg 04/10/2025 26 - [address] [facility] [address] WBC num Bld Auto 17.8 Thou/uL Above high normal 04/10/2025 4 - 11 HHCCT RBC num Bld Auto 2.65 Mil/uL Below low normal 04/10/2025 4 - 5.4 HHCCT Platelet num Bld Auto 411.0 Thou/uL 04/10/2025 150 - 450 HHCCT nRBC/100 WBC Bld Auto-Rto 0.3 /100 WBC Above high normal 04/10/2025 0 - 0.1 HHCCT Hct VFr Bld Auto 21.8 % Below low normal 04/10/2025 35 - 47 HHCCT PMV Bld Auto 9.4 fL 04/10/2025 7.5 - 12.5 HHCCT MCV RBC Auto 82.0 fL 04/10/2025 80 - 100 HHCCT POC Glucose 124.0 mg/dL Above high normal 04/10/2025 65 - 99 CCT Platelet num Bld Auto 402.0 Thou/uL 04/10/2025 150 - 450 HHCCT RDW RBC Auto-Rto 17.0 % Above high normal 04/10/2025 1 1.5 - 14.5 HHCCT PMV Bld Auto 9.6 fL 04/10/2025 7.5 - 12.5 HHCCT RBC num Bld Auto 2.95 Mil/uL Below low normal 04/10/2025 4 - 5.4 HHCCT WBC num Bld Auto 20.8 Thou/uL Above high normal 04/10/2025 4 - 11 HHCCT nRBC num Bld Auto 0.07 Thou/uL Above high normal 04/10/2025 0 - 0.02 HHCCT MCV RBC Auto 81.0 fL 04/10/2025 80 - 100 HHCCT nRBC/100 WBC Bld Auto-Rto 0.3 /100 WBC Above high normal 04/10/2025 0 - 0.1 HHCCT Hct VFr Bld Auto 23.9 % Below low normal 04/10/2025 35 - 47 HHCCT MCHC RBC Auto-mCnc 33.9 g/dL 04/10/2025 30 - 36 HHCCT Hgb Bld-mCnc 8.1 g/dL Below low normal 04/10/2025 11.7 - 15.7 HHCCT MCH RBC Qn Auto 27.5 pg 04/10/2025 26 - [address] [facility] [address] POC Glucose 137.0 mg/dL Above high normal 04/10/2025 65 - 99 CCT POC Glucose 150.0 mg/dL Above high normal 04/10/2025 65 - 99 CCT POC Glucose 244.0 mg/dL Above high normal 04/10/2025 65 - 99 CCT POC Glucose 240.0 mg/dL Above high normal 04/10/2025 65 - 99 HHCCT Est. average glucose Bld gHb Est-mCnc 105.0 mg/dL 04/10/2025 HHCCT Hgb A1c MFr Bld 5.3 % 04/10/2025 - 5.[address] Anion Gap Bld-sCnc 9.0 04/10/2025 7 - 17 HHCCT BUN SerPl-mCnc 9.0 mg/dL 04/10/2025 8 - 21 [facility] T GFR/BSA.pred SerPlBld SDD-SAP-WcFQwt >90.0 04/10/2025 59 - HHCCT BUN/Creat SerPl 17.0 Ratio 04/10/2025 10 - 25 HH CCT Potassium SerPl-sCnc 4.3 mmol/L 04/10/2025 3.4 - 5 .3 HHCCT CO2 SerPl-sCnc 25.0 mmol/L 04/10/2025 22 - 33 HH CCT Sodium SerPl-sCnc 136.0 mmol/L 04/10/2025 136 - 14 5 HHCCT Chloride SerPl-sCnc 102.0 mmol/L 04/10/2025 98 - 1 07 HHCCT Calcium SerPl-mCnc 7.5 mg/dL Below low normal 04/10/2025 8.7 - 10.5 HHCCT Creat SerPl-mCnc 0.54 mg/dL 04/10/2025 0.4 - 1.1 H HCCT Glucose SerPl-mCnc 205.0 mg/dL Above high normal 04/10/2025 65 - 99 HHCCT Magnesium SerPl-mCnc 1.9 mg/dL 04/10/2025 1.6 - 2. 7 HHCCT Phosphate SerPl-mCnc 5.3 mg/dL Above high normal 04/10/2025 2.7 - 4.5 HHCCT MCHC RBC Auto-mCnc 33.2 g/dL 04/10/2025 30 - 36 HHCCT nRBC/100 WBC Bld Auto-Rto 0.3 /100 WBC Above high normal 04/10/2025 0 - 0.1 HHCCT MCV RBC Auto 80.0 fL 04/10/2025 80 - 100 HHCCT WBC num Bld Auto 30.3 Thou/uL Critically high 04/10/2025 4 - 11 HHCCT Hct VFr Bld Auto 21.7 % Below low normal 04/10/2025 35 - 47 HHCCT nRBC num Bld Auto 0.08 Thou/uL Above high normal 04/10/2025 0 - 0.02 HHCCT Platelet num Bld Auto 412.0 Thou/uL 04/10/2025 150 - 450 HHCCT MCH RBC Qn Auto 26.4 pg 04/10/2025 26 - [address] PMV Bld Auto 9.7 fL 04/10/2025 7.5 - 12.5 HHCCT Hgb Bld-mCnc 7.2 g/dL Below low normal 04/10/2025 11.7 - 15.7 HHCCT RBC num Bld Auto 2.73 Mil/uL Below low normal 04/10/2025 4 - 5.4 HHCCT RDW RBC Auto-Rto 15.9 % Above high normal 04/10/2025 1 1.5 - 14.5 HHCCT Ca-I SerPl-mCnc 1.11 mmol/L Below low normal 04/10/2025 1. 17 - 1.33 HHCCT CK SerPl-cCnc 123.0 U/L 04/10/2025 24 - 173 [facility]CT POC Glucose 111.0 mg/dL Above high normal 04/10/2025 65 - 99 H[facility]CT POC Glucose 145.0 mg/dL Above high normal 04/10/2025 65 - 99 HHCCT Reaction Time,Heparinized 3.6 minutes Below low normal 04/09/2025 5 - 10 HHCCT Fibrin Function,Heparinized 0.9 minutes Below low normal 04/09/2025 1 - [address] %Lysis 30 min,Heparinized 1.4 % 04/09/2025 0 - 8 HHCCT Max Amplitude,Heparinize d 65.1 mm 04/09/2025 50 - 70 HHCCT Angle 76.8 degrees Above high normal 04/09/2025 53 - 72 H[facility]CT Max Amplitude 69.6 mm 04/09/2025 50 - 70 HHCCT %Lysis 30 min 0.0 % 04/09/2025 0 - 8 HHCCT Reaction Time 3.3 minutes Below low normal 04/09/2025 5 - 10 HHCCT Angle, Heparinized 75.8 degrees Above high normal 04/09/2025 53 - 72 HHCCT Fibrin Function 1.0 minutes 04/09/2025 1 - 3 H HCCT Anticoagulant SUB Q UNFRACTIONATED HEPARIN 04/09/2025 HHCCT Phosphate SerPl-mCnc 5.2 mg/dL Above high normal 04/09/2025 2.7 - 4.5 HHCCT Sodium SerPl-sCnc 136.0 mmol/L 04/09/2025 136 - 14 5 HHCCT Chloride SerPl-sCnc 104.0 mmol/L 04/09/2025 98 - 1 07 HHCCT Anion Gap Bld-sCnc 6.0 Below low normal 04/09/2025 7 - 17 HHCCT Creat SerPl-mCnc 0.58 mg/dL 04/09/2025 0.4 - 1.1 H HCCT Calcium SerPl-mCnc 8.7 mg/dL 04/09/2025 8.7 - 10.5 HHCCT GFR/BSA.pred SerPlBld PWN-FHH-IkKPqj >90.0 04/09/2025 59 - HHCCT BUN/Creat SerPl 12.0 Ratio 04/09/2025 10 - 25 HH CCT Glucose SerPl-mCnc 126.0 mg/dL Above high normal 04/09/2025 65 - 99 HHCCT BUN SerPl-mCnc 7.0 mg/dL Below low normal 04/09/2025 8 - 21 HHCCT Potassium SerPl-sCnc 3.9 mmol/L 04/09/2025 3.4 - 5 .3 HHCCT CO2 SerPl-sCnc 26.0 mmol/L 04/09/2025 22 - 33 HH CCT Magnesium SerPl-mCnc 1.7 mg/dL 04/09/2025 1.6 - 2. 7 HHCCT CK SerPl-cCnc 262.0 U/L Above high normal 04/09/2025 24 - 17 3 HHCCT Lactate SerPl-sCnc 1.4 mmol/L 04/09/2025 0.5 - 1.9 HHCCT PMV Bld Auto 9.2 fL 04/09/2025 7.5 - 12.5 HHCCT nRBC/100 WBC Bld Auto-Rto 0.2 /100 WBC Above high normal 04/09/2025 0 - 0.1 HHCCT MCH RBC Qn Auto 25.7 pg Below low normal 04/09/2025 26 - 3 4 HHCCT Platelet num Bld Auto 411.0 Thou/uL 04/09/2025 150 - 450 HHCCT MCHC RBC Auto-mCnc 31.2 g/dL 04/09/2025 30 - 36 HHCCT Hgb Bld-mCnc 8.3 g/dL Below low normal 04/09/2025 11.7 - 15.7 HHCCT WBC num Bld Auto 17.1 Thou/uL Above high normal 04/09/2025 4 - 11 HHCCT RDW RBC Auto-Rto 16.4 % Above high normal 04/09/2025 1 1.5 - 14.5 HHCCT nRBC num Bld Auto 0.03 Thou/uL Above high normal 04/09/2025 0 - 0.02 HHCCT Hct VFr Bld Auto 26.6 % Below low normal 04/09/2025 35 - 47 HHCCT MCV RBC Auto 82.0 fL 04/09/2025 80 - 100 HHCCT RBC num Bld Auto 3.23 Mil/uL Below low normal 04/09/2025 4 - 5.4 HHCCT Ca-I SerPl-mCnc 1.27 mmol/L 04/09/2025 1.17 - 1.33 HHCCT POC Glucose 136.0 mg/dL Above high normal 04/09/2025 65 - 99 HHCCT Phosphate SerPl-mCnc 3.7 mg/dL 04/09/2025 2.7 - 4. 5 HHCCT Magnesium SerPl-mCnc 1.9 mg/dL 04/09/2025 1.6 - 2. 7 HHCCT Chloride SerPl-sCnc 105.0 mmol/L 04/09/2025 98 - 1 07 HHCCT GFR/BSA.pred SerPlBld YGA-ETK-DuRHrq >90.0 04/09/2025 59 - HHCCT Sodium SerPl-sCnc 145.0 mmol/L 04/09/2025 136 - 14 5 HHCCT Anion Gap Bld-sCnc 11.0 04/09/2025 7 - 17 HHCCT Calcium SerPl-mCnc 7.5 mg/dL Below low normal 04/09/2025 8.7 - 10.5 HHCCT CO2 SerPl-sCnc 29.0 mmol/L 04/09/2025 22 - 33 HH CCT BUN/Creat SerPl 14.0 Ratio 04/09/2025 10 - 25 HH CCT Glucose SerPl-mCnc 105.0 mg/dL Above high normal 04/09/2025 65 - 99 HHCCT Creat SerPl-mCnc 0.63 mg/dL 04/09/2025 0.4 - 1.1 H HCCT BUN SerPl-mCnc 9.0 mg/dL 04/09/2025 8 - 21 [facility] T Potassium SerPl-sCnc 3.8 mmol/L 04/09/2025 3.4 - 5 .3 HHCCT Hct VFr Bld Auto 22.4 % Below low normal 04/09/2025 35 - 47 HHCCT RDW RBC Auto-Rto 16.7 % Above high normal 04/09/2025 1 1.5 - 14.5 HHCCT Platelet num Bld Auto 447.0 Thou/uL 04/09/2025 150 - 450 HHCCT WBC num Bld Auto 12.4 Thou/uL Above high normal 04/09/2025 4 - 11 H[facility]CT nRBC/100 WBC Bld Auto-Rto 0.2 /100 WBC Above high normal 04/09/2025 0 - 0.1 HHCCT PMV Bld Auto 9.1 fL 04/09/2025 7.5 - 12.5 HHCCT nRBC num Bld Auto 0.03 Thou/uL Above high normal 04/09/2025 0 - 0.02 HHCCT Hgb Bld-mCnc 7.2 g/dL Below low normal 04/09/2025 11.7 - 15.7 HHCCT MCHC RBC Auto-mCnc 32.1 g/dL 04/09/2025 30 - 36 HHCCT RBC num Bld Auto 2.85 Mil/uL Below low normal 04/09/2025 4 - 5.4 HHCCT MCH RBC Qn Auto 25.3 pg Below low normal 04/09/2025 26 - 3 4 HHCCT MCV RBC Auto 79.0 fL Below low normal 04/09/2025 80 - 100 HHCCT POC Glucose 69.0 mg/dL 04/09/2025 65 - 99 HHCCT CK SerPl-cCnc 91.0 U/L 04/09/2025 24 - 173 H[facility]CT POC Glucose 74.0 mg/dL 04/09/2025 65 - 99 HHCCT POC Glucose 78.0 mg/dL 04/09/2025 65 - 99 HHCCT CK SerPl-cCnc 97.0 U/L 04/09/2025 24 - 173 HHCCT Phosphate SerPl-mCnc 3.7 mg/dL 04/09/2025 2.7 - 4. 5 HHCCT Magnesium SerPl-mCnc 2.1 mg/dL 04/09/2025 1.6 - 2. 7 HHCCT Calcium SerPl-mCnc 7.4 mg/dL Below low normal 04/09/2025 8.7 - 10.5 HHCCT Anion Gap Bld-sCnc 7.0 04/09/2025 7 - 17 HHCCT Creat SerPl-mCnc 0.66 mg/dL 04/09/2025 0.4 - 1.1 H HCCT BUN/Creat SerPl 15.0 Ratio 04/09/2025 10 - 25 HH CCT BUN SerPl-mCnc 10.0 mg/dL 04/09/2025 8 - [address] Sodium SerPl-sCnc 141.0 mmol/L 04/09/2025 136 - 14 5 HHCCT Glucose SerPl-mCnc 77.0 mg/dL 04/09/2025 65 - 99 HHCCT Potassium SerPl-sCnc 3.4 mmol/L 04/09/2025 3.4 - 5 .3 HHCCT GFR/BSA.pred SerPlBld [id number] >90.0 04/09/2025 59 - HHCCT CO2 SerPl-sCnc 29.0 mmol/L 04/09/2025 22 - 33 HH CCT Chloride SerPl-sCnc 105.0 mmol/L 04/09/2025 98 - 1 07 HHCCT Platelet num Bld Auto 418.0 Thou/uL 04/09/2025 150 - 450 HHCCT RBC num Bld Auto 2.8 Mil/uL Below low normal 04/09/2025 4 - 5.4 HHCCT MCHC RBC Auto-mCnc 32.3 g/dL 04/09/2025 30 - 36 HHCCT MCV RBC Auto 78.0 fL Below low normal 04/09/2025 80 - 100 HHCCT WBC num Bld Auto 12.3 Thou/uL Above high normal 04/09/2025 4 - 11 HHCCT PMV Bld Auto 9.4 fL 04/09/2025 7.5 - 12.5 HHCCT Hct VFr Bld Auto 21.7 % Below low normal 04/09/2025 35 - 47 HHCCT RDW RBC Auto-Rto 16.1 % Above high normal 04/09/2025 1 1.5 - 14.5 HHCCT Hgb Bld-mCnc 7.0 g/dL Below low normal 04/09/2025 11.7 - 15.7 HHCCT MCH RBC Qn Auto 25.0 pg Below low normal 04/09/2025 26 - 3 4 HHCCT POC Glucose 100.0 mg/dL Above high normal 04/09/2025 65 - 99 HHCCT POC Glucose 92.0 mg/dL 04/09/2025 65 - 99 HHCCT Magnesium SerPl-mCnc 2.1 mg/dL 04/09/2025 1.6 - 2. 7 HHCCT Phosphate SerPl-mCnc 3.5 mg/dL 04/09/2025 2.7 - 4. 5 HHCCT CK SerPl-cCnc 138.0 U/L 04/09/2025 24 - 173 HHCCT CO2 SerPl-sCnc 26.0 mmol/L 04/09/2025 22 - 33 HH CCT BUN SerPl-mCnc 10.0 mg/dL 04/09/2025 8 - [address] Glucose SerPl-mCnc 83.0 mg/dL 04/09/2025 65 - 99 HHCCT Anion Gap Bld-sCnc 10.0 04/09/2025 7 - 17 HHCCT Chloride SerPl-sCnc 102.0 mmol/L 04/09/2025 98 - 1 07 HHCCT Sodium SerPl-sCnc 138.0 mmol/L 04/09/2025 136 - 14 5 HHCCT BUN/Creat SerPl 17.0 Ratio 04/09/2025 10 - 25 HH CCT Creat SerPl-mCnc 0.58 mg/dL 04/09/2025 0.4 - 1.1 H HCCT Calcium SerPl-mCnc 7.1 mg/dL Below low normal 04/09/2025 8.7 - 10.5 HHCCT Potassium SerPl-sCnc 3.6 mmol/L 04/09/2025 3.4 - 5 .3 HHCCT GFR/BSA.pred SerPlBld [id number] >90.0 04/09/2025 59 - HHCCT Trigl SerPl-mCnc 234.0 mg/dL Above high normal 04/09/2025 - 150 HHCCT Lactate SerPl-sCnc 1.1 mmol/L 04/09/2025 0.5 - 1.9 HHCCT Hgb Bld-mCnc 7.2 g/dL Below low normal 04/09/2025 11.7 - 15.7 HHCCT MCHC RBC Auto-mCnc 32.1 g/dL 04/09/2025 30 - 36 HHCCT PMV Bld Auto 9.4 fL 04/09/2025 7.5 - 12.5 HHCCT Platelet num Bld Auto 390.0 Thou/uL 04/09/2025 150 - 450 HHCCT RDW RBC Auto-Rto 16.4 % Above high normal 04/09/2025 1 1.5 - 14.5 HHCCT Hct VFr Bld Auto 22.4 % Below low normal 04/09/2025 35 - 47 HHCCT WBC num Bld Auto 9.4 Thou/uL 04/09/2025 4 - 11 HHCCT MCH RBC Qn Auto 24.9 pg Below low normal 04/09/2025 26 - 3 4 HHCCT RBC num Bld Auto 2.89 Mil/uL Below low normal 04/09/2025 4 - 5.4 HHCCT MCV RBC Auto 78.0 fL Below low normal 04/09/2025 80 - 100 HHCCT Ca-I SerPl-mCnc 1.05 mmol/L Below low normal 04/09/2025 1. 17 - 1.33 HHCCT Vancomycin SerPl-mCnc 17.0 mg/L 04/08/2025 HHCCT Time of last dose Information not given 04/08/2025 HHCCT CRP SerPl-mCnc 11.38 mg/dL Above high normal 04/08/2025 0 - 0.49 HHCCT ESR Bld Qn 27.0 MM/HR Above high normal 04/08/2025 - 20 HHCCT HAV IgM Ser Ql Nonreactive 04/09/2025 - CCT HBV surface Ag Ser Ql Nonreactive 04/09/2025 - [facility] HBV core IgM Ser Ql Nonreactive 04/09/2025 - [facility] Hepatitis C virus Ab [Presence] in Serum or Plasma by Immunoassay Reactive Abnormal 04/09/2025 - [facility] Hepatitis Panel Interpretation These results indicate Hepatitis C infection. 04/09/2025 CCT HIV 1+2 Ab+HIV1 p24 Ag Ser EIA-aCnc Nonreactive 04/09/2025 - [facility] Creat SerPl-mCnc 0.51 mg/dL 04/08/2025 0.4 - 1.1 H HCCT Potassium SerPl-sCnc 3.7 mmol/L 04/08/2025 3.4 - 5 .3 HHCCT CO2 SerPl-sCnc 31.0 mmol/L 04/08/2025 22 - 33 HH CCT Chloride SerPl-sCnc 101.0 mmol/L 04/08/2025 98 - 1 07 HHCCT Anion Gap Bld-sCnc 8.0 04/08/2025 7 - 17 HHCCT Calcium SerPl-mCnc 7.0 mg/dL Below low normal 04/08/2025 8.7 - 10.5 HHCCT GFR/BSA.pred SerPlBld [id number] >90.0 04/08/2025 59 - HHCCT Sodium SerPl-sCnc 140.0 mmol/L 04/08/2025 136 - 14 5 HHCCT BUN SerPl-mCnc 10.0 mg/dL 04/08/2025 8 - [address] BUN/Creat SerPl 20.0 Ratio 04/08/2025 10 - 25 HH CCT Glucose SerPl-mCnc 127.0 mg/dL Above high normal 04/08/2025 65 - 99 HHCCT Magnesium SerPl-mCnc 2.1 mg/dL 04/08/2025 1.6 - 2. 7 HHCCT Phosphate SerPl-mCnc 3.5 mg/dL 04/08/2025 2.7 - 4. 5 HHCCT PMV Bld Auto 9.6 fL 04/08/2025 7.5 - 12.5 HHCCT Hct VFr Bld Auto 25.1 % Below low normal 04/08/2025 35 - 47 HHCCT RBC num Bld Auto 3.3 Mil/uL Below low normal 04/08/2025 4 - 5.4 HHCCT Platelet num Bld Auto 392.0 Thou/uL 04/08/2025 150 - 450 HHCCT MCHC RBC Auto-mCnc 31.9 g/dL 04/08/2025 30 - 36 HHCCT MCV RBC Auto 76.0 fL Below low normal 04/08/2025 80 - 100 HHCCT WBC num Bld Auto 15.0 Thou/uL Above high normal 04/08/2025 4 - 11 HHCCT Hgb Bld-mCnc 8.0 g/dL Below low normal 04/08/2025 11.7 - 15.7 HHCCT RDW RBC Auto-Rto 15.9 % Above high normal 04/08/2025 1 1.5 - 14.5 HHCCT MCH RBC Qn Auto 24.2 pg Below low normal 04/08/2025 26 - 3 4 HHCCT Encounters Encounter Type Encounter Reason Primary Diagnosis Location Date Inpatient Cutaneous abscess of right upper limb Cutaneous abscess of right upper limb [facility] [employer] [facility] 04/06/2025 Care Team Organization Name Specialty Phone Email Start Date End Da te [employer] PROVIDER SYSTEM Primary Care 04/09/2025 [employer] 04/07/2025 [employer] NO PCP Primary Care 04/07/2025 [employer] 04/06/2025
[2025-04-14 23:20] LABS: Hematocrit 22.2 % (37.0-47.0); Hemoglobin 7.1 g/dl (12.0-16.0); Imm Gran Abs Auto 0.53 X10*3/uL (0.00-0.03); Imm Gran Pct Auto 5.0 % (0.0-0.4); Lymphocytes Absolute Auto 3.3 X10*3/uL (1.2-4.9); MANUAL DIFF FLAG NO; Mean Corpuscular HGB Conc 32.0 g/dl (31.0-35.0); Mean Corpuscular Hemoglobin 28.1 pg (27.0-33.0); Mean Corpuscular Volume 87.7 fL (80.0-98.0); NRBC Abs Auto 0.040 X10*3/uL (0.0-0.012); NRBC Pct Auto 0.4 /100WBC (0.0-0.2); Platelet Count 746 X10*3/uL (160-400); Red Blood Count 2.53 X10*6/uL (4.20-5.50); White Blood Count 10.7 X10*3/uL (4.8-10.8)
[2025-04-14 23:31] VITALS: BP 159/80; PULSE 90; RESP 18; TEMP 36.4; O2SAT 100
[2025-04-14 23:37] LABS: Anion Gap 11 (12-20); Blood Urea Nitrogen 10 mg/dL (9-16); Calcium 7.5 mg/dL (8.4-10.2); Carbon Dioxide 25 mmol/L (22-29); Chloride 109 mmol/L (96-108); Estimated Glomerular Filt Rate > 60; Magnesium 1.9 mg/dL (1.6-2.6); Potassium 3.5 mmol/L (3.3-5.1); Sodium 141 mmol/L (135-145)
[2025-04-14] MEDS: 0.9 % Sodium Chloride Flush 3 ML SYRINGE IVFLUSH (23:43)
[2025-04-14 23:46] LABS: Troponin-I High Sensitivity < 2.7 ng/L (<3.5-17.0)
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
[2025-04-15] VITALS (7 sets, daily range): BP systolic 130–143; BP diastolic 67–90; PULSE 84–109; RESP 17–20; TEMP 36.1–36.7; O2SAT 96–99
[2025-04-15] MEDS: methADONE HCl 20 MG/2 ML ORAL.CONC 45 MG PO ×3 (00:07→17:03)
--- NOTE | 2025-04-15 08:30 | PC.NURSE ---
Addendum entered by Sakshi Jacobs RN 04/15/25 20:11: Correction - dressings loose on RUE and reinforced, LUE remained intact. Original Note: 08:30 - patient dressings loose on LUE, reinforced with abd gauze and tape. Patient very anxious regarding wound care and touching wound, crying and requiring reassurance. Mitul drain in place, patient's gown and sheets were wet from drainage from mitul and had foul odor. Linen and gown changed.
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
[2025-04-15 09:50] LABS: Creatinine Clr Calc Pharmacy 131.1; Estimated Glomerular Filt Rate > 60
--- NOTE | 2025-04-15 10:10 | PHA.MEDREC ---
Addendum entered by Iva Mcintosh [facility] 04/15/25 12:22: Pt states she goes to a clinic to take a dose of methadone in the morning. [place] paper work states she last received 45 mg 04/14 1321 of 45mg. Pt was receiving 45mg q8h for a total dose of 135mg. Addendum entered by Iva Mcintosh [facility] 04/15/25 12:15: Spoke with pt, she only takes methadone and adderal at home. Uptdated med list to reflect this. All of [facility]'s list was admission meds, and not home meds. Original Note: Pharmacy Consult ? Medication Reconciliation Pharmacy has completed the medication reconciliation. Utilized list from [facility].
--- NOTE | 2025-04-15 11:43 | P.PNIM_ITS ---
Subjective Subjective Date of Service: 04/15/25 Interval History: Drowsy and tired today. Arousable with to voice - endorsing generalized pain around the upper extremities and chest; around surgical sites. No new complaints overall. Extensively discussed prognostication, medical issues Review of Systems Review of Systems: Yes all other systems are reviewed and are negative Physical Exam 2 Exam: Exam: General: A&O x3, oriented to time place person and situation, comfortable; in pain. Cardiac: S1, S2 auscultated with no S3/4, no MRG. Well perfused. Respiratory: Normal breath sounds auscultated throughout all lung zones, without wheezing, rales. Normal rate. GI/ : No abdominal pain on palpation, no masses or distentions. MSK: Multiple extensive open/ packed surgical wounds - RUE (medial shoulder to medial antecubital fossa), anterior chest roberto wound, LUE would proximal to antecub. fossa. Neurological: Normal neurological examination on overview, without obvious CN II-XII abnormalities. Vital Signs: Vital Signs: Last Vital Signs Temp 98.0 F 04/15/25 11:26 Pulse 84 04/15/25 11:26 Resp 20 04/15/25 11:26 BP 143/74 H 04/15/25 11:26 Pulse Ox 97 04/15/25 11:26 O2 Del Method Room Air 04/15/25 11:26 Objective Data Active Medications Acetaminophen (Acetaminophen 325 Mg Tablet) 650 mg PO Q6H PRN PRN Reason: Pain, Mild 1-3,fever,headache Last Admin: 04/15/25 09:26 Dose: 650 mg Documented By: CITLALY Albuterol Sulfate (Albuterol Sulfate (0.083%) 2.5 Mg/3 Ml Vial.Neb) 2.5 mg INHALE Q4H PRN PRN Reason: Wheezing Baclofen (Baclofen 10 Mg Tablet) 10 mg PO TID [facility] Last Admin: 04/15/25 09:01 Dose: 10 mg Documented By: CITLALY Bisacodyl (Bisacodyl 10 Mg Supp.Rect) 10 mg AR BEDTIME PRN PRN Reason: Constipation Calcium Carbonate (Calcium Carbonate 750 Mg Tab.Chew) 750 mg PO Q4H PRN PRN Reason: Heartburn Clonidine HCl (Clonidine Hcl 0.1 Mg Tablet) 0.1 mg PO BID [facility]; Protocol Last Admin: 04/15/25 09:01 Dose: 0.1 mg Documented By: CITLALY Enoxaparin Sodium (Enoxaparin Sodium 40 Mg/0.4 Ml Syringe) 40 mg SUBCUT Q24H [facility] Last Admin: 04/15/25 09:01 Dose: 40 mg Documented By: CITLALY Folic Acid (Folic Acid 1 Mg Tablet) 1 mg PO DAILY [facility] Gabapentin (Gabapentin 300 Mg Capsule) 300 mg PO TID [facility] Last Admin: 04/15/25 09:01 Dose: 300 mg Documented By: CITLALY Hydromorphone HCl (Hydromorphone Hcl 2 Mg Tablet) 4 mg PO Q3H PRN PRN Reason: Pain, Severe (Pain Scale 7-10) Last Admin: 04/15/25 09:26 Dose: 4 mg Documented By: CITALLY Hydromorphone HCl (Hydromorphone Hcl 1 Mg/Ml Syringe) 1 mg IVPUSH Q4H PRN; Protocol PRN Reason: 30m prior to wound care Magnesium Hydroxide (Milk Of Magnesia 30 Ml Oral.Susp) 30 ml PO DAILY PRN PRN Reason: Constipation Melatonin (Melatonin 3 Mg Tablet) 6 mg PO BEDTIME PRN PRN Reason: Insomnia Methadone HCl (Methadone Hcl 20 Mg/2 Ml Oral.Conc) 45 mg PO Q8H [facility] Last Admin: 04/15/25 08:47 Dose: 45 mg Documented By: CITLALY Co-signed By: MARISELA Multivitamins/Vitamin C (Multivitamin Tablet) 1 tab PO DAILY [facility] Last Admin: 04/15/25 09:01 Dose: 1 tab Documented By: CITLALY Naloxone HCl (Naloxone Hcl 0.4 Mg/Ml Vial) 0.1 mg IVPUSH Q5M PRN PRN Reason: Opiate Reversal Pharmacy Consult (Consult Rx Vancomycin Dosing) 1 each MISCELLANE DAILY PRN PRN Reason: Consult order Stop: 05/09/25 09:00 Senna/Docusate Sodium (Sennosides/Docusate Sodium Tablet) 1 tab PO BEDTIME [facility] Last Admin: 04/14/25 23:42 Dose: Not Given Documented By: RAFAEL Non-Admin Reason: pt having loose stools Sodium Chloride (0.9 % Sodium Chloride Flush 3 Ml Syringe) 3 ml IVFLUSH QSHIFT [facility] Last Admin: 04/15/25 09:02 Dose: Not Given Documented By: CITLALY Non-Admin Reason: 10 mL syringe used for central line Thiamine HCl (Thiamine Hcl 100 Mg Tablet) 100 mg PO DAILY [facility] Last Admin: 04/15/25 09:01 Dose: 100 mg Documented By: CITLALY Labs 04/14/25 23:10 04/15/25 09:22 Labs: Laboratory Results - last 24 hr 04/14/25 04/15/25 04/15/25 23:10 09:22 10:37 MCV 87.7 MCH 28.1 MCHC 32.0 RDW 18.0 H Plt Count 746 H D MPV 8.9 L Immature Gran % (Auto) 5.0 H Neut % (Auto) 54.0 Lymph % (Auto) 30.6 [place] % (Auto) 5.9 Eos % (Auto) 3.5 Baso % (Auto) 1.0 Lymph # (Auto) 3.3 [place] # (Auto) 0.6 Eos # (Auto) 0.4 Baso # (Auto) 0.1 Abs Immat Gran (auto) 0.53 H Absolute Neuts (auto) 5.8 Absolute Nucleated RBC 0.040 H Nucleated RBC % (auto) 0.4 H Anion Gap 11 L Estim Creat Clear Calc TNP 131.1 Estimated GFR > 60 > 60 Random Glucose 96 Calcium 7.5 L Magnesium 1.9 Troponin I High Sens < 2.7 Random Vancomycin 18.5 Assessment and Plan (1) Substance use disorder: Status: Acute (2) IV drug abuse: Status: Acute (3) Opioid use disorder, severe, dependence: Status: Acute (4) GERD (gastroesophageal reflux disease): Status: Acute (5) Anemia: Status: Acute (6) Cellulitis: Status: Acute (7) Abscess of right upper arm and forearm: Status: Acute (8) Sepsis: Status: Acute (9) Myositis: Status: Acute (10) Abscess of left upper arm and forearm: Status: Acute (11) Fasciitis: Status: Acute Plan 34 yo female with PMH IVDU c/b hx overdose on methadone, xylozene infection L forearm, depression/ anxiety uses xanax and clonidine off the street, presents with swelling of right upper extremity, admitted 04/02-04/06 with sepsis 2/2 right upper extremity abscess and cellulitis with myositis 2/2 IVDU s/p I&D R shoulder - transferred to [facility] for extensive debridement and I&Ds of multiple bilateral UE abscesses - transfered to [facility] for continued management. Sepsis - MRSA+ve Bilateral upper extremity abscesses Bilateral upper extremity cellulitis Bilateral upper extremity fasciitis Bilateral upper extremity myositis IVDU Patient met criteria for sepsis on admission 04/02; noting bandemia 41, lactic acid 2.7 down to 1.8 after IV fluids, tachycardia. ESR and CRP both elevated. CT of the right upper extremity confirms cellulitis with extensive myositis and developing ill-defined abscess at the level of the shoulder with reactive right axillary adenopathy. S/P I&D by general surgery 04/03/25 - no complications No evidence on TTE valvular vegetation. Possible micro seeding. Re-evaluation with CT right and left upper extremities for evidence of infective endocarditis/septic emboli; revealing extensive evidence of abscesses, phlegmon, tenosynoviitis and superimposed fasciitis, myositis and possible tissue necrosis - please see CT report for specifics. Surgery reports that burden of disease is extensive, requiring higher level of care - transferred to [facility] - s/p I&D of RUE and LUE; 04/08/25 - RUE biceps & triceps abscesses - Left AC fossa abscess Currently on: - Vancomycin (end dose 05/07/25) - Clindamycin (end dose 04/15/25) - Post vancomycin, start Doxycyline (05/08-05/22/25) Last negative culture: 04/09/25 Patient has right triple lumen IJ PLAN - Vancomycin (end dose 05/07/25) - Clindamycin (end dose 04/15/25) - Post vancomycin, start Doxycyline (05/08-05/22/25) - wound care consultation placed - general surgery consultation placed - Dilaudid 4 mg q.3h hourly - Dilaudid 1 mg q.1h hourly p.r.n. ; 30 minutes prior to wound cleaning - Packing changes to right upper extremity and right chest wall with to dry saline moistured Kerlix gauze, cover with Kerlix wrap followed by Osbaldo wrap- - Left upper extremity has a retained needles from patient's injections prior to admission, DO NOT PACK THIS WOUND WITH FINGERS MOST USE INSTRUMENTS, either Luda forcepts etc - Consult Interventional Radiology for tunneled catheter given lack of access sites S/p hematoma w/ clot evacuation 04/08/2025 Anemia s/p 1UPRBC transfusion. Hbg stable (7.1 now, it was 7.3 at ). Continue to monitor. Mild hyponatremia - resolved Hypokalemia - Trend BMP daily GERD - Protonix b.i.d. - Monitor H&H Constipation - Milk of magnesia UTE Patient normally on methadone 130 mg per day, confirmed with Addiction medicine services Continue Methadone Addiction medicine consultation for reccs re; pain management outpatient setting [facility] - VTE: Enoxaparin - CODE STATUS: Full code - DIET: Regular Total time managing care of this patient today: 60 minutes. Quality Stroke Does the patient have a stroke diagnosis?: No VTE Prior VTE?: No VTE Risk Level:: Medical - moderate - high VTE Device Contraindication: Treatment Not Indicated VTE Drug Contraindication: N/A - Med Ordered
--- NOTE | 2025-04-15 11:58 | HE.PHANOTE ---
RE: RIKI Patient came from [facility] getting 1250 mg Q12h. Patient was loaded here with 1750 mg @0100. Level returned at 18.5. Continuing 1250 mg Q12h with predicted AUC of 496 and trough of 13.9. Next level due 04/16 @2100.
--- NOTE | 2025-04-15 12:39 | PC.NURSE ---
Virtual monitor called with concern patient was snorting something through a straw . Charge nurse Myrna, went into patient's room and assessed patient and patient allowed charge nurse to go through the black purse on her bed, the charge nurse did not find any concern of drugs at this time in patient's black purse. This RN went in after to assess patient, patient conversing and acting similar way since beginning of shift, with no concern at this time, this nurse asked patient if she has any drugs on her or is taking any additional drugs not administered to her by this nurse, patient denied other drug use. Patient educated the importance for the patient's safety that hospital staff have a full knowledge of the medications she is taking including illicit drugs and patient verbalized understanding. Call bowers in reach, bed alarm on and virtual monitor remains in place.
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
--- NOTE | 2025-04-15 15:34 | HO.WOUND ---
Wound Consult: Initial 34 yr old female admitted to [facility] [place] - See progress notes and H&P for detailed history. Wound consult placed for bilateral arms. Patient agreeable to assessment and photo documentation. Patient with recent hospitalization at [facility], was transferred to [facility] for further surgical management of abscesses in bilateral arms, now readmitted to [facility]. Seen at bedside with General surgery Dr. Rosenberg, and Berta GARRETT (see notes). Patient pre-medicated for pain prior to dressing change. patient with notable pain/anxiety with dressing change, however tolerated fairly well. Documentation from [facility] reported needle fragments to left arm wound and to take care with dressing changes, using instruments vs fingers for packing, x ray completed today at [facility] - with no appearance of metal fragments see report. Right arm 04/15/25 - moist red with some granulation tissue, muscle visible- mitul drain in place to right chest Right chest 04/15/25 - moist pink red smooth tissue- mitul drain present to right arm Right posterior arm - moist red granulation tissue with visible white tendon Left arm 04/15/25 - moist pink red Etiology: Surgical wounds s/p abscess I&D/washout at [facility] Measurements: see wound assessment Drainage / Odor: serosanguineous/serous moderate no odor, left arm slight yellow/green creamy drainage Edges: ? open Antonia wound: ? No Induration, Fluctuance or Warmth noted Pain: yes Goals of Treatment: ?moist healing, granulation tissue Recommendations: Right arm, Right chest, left chest: cleanse with normal saline, apply normal saline wet to dry, cover with ABD pads and optilock, wrap with kerlix, change daily and PRN. Dressing changes will be completed by General surgery and/or Inpt retail account manager. Re-consult wound care Nurse for wound deterioration or wound changes.
[2025-04-15 15:35] LABS: Cannabinoid Screen Urine Not Detected (Not Detect)
[2025-04-15 16:11] LABS: MANUAL DIFF FLAG NO
[2025-04-15 16:13] LABS: Hematocrit 22.9 % (37.0-47.0); Hemoglobin 7.3 g/dl (12.0-16.0); Imm Gran Abs Auto 0.36 X10*3/uL (0.00-0.03); Imm Gran Pct Auto 2.6 % (0.0-0.4); Lymphocytes Absolute Auto 2.8 X10*3/uL (1.2-4.9); Mean Corpuscular HGB Conc 31.9 g/dl (31.0-35.0); Mean Corpuscular Hemoglobin 28.4 pg (27.0-33.0); Mean Corpuscular Volume 89.1 fL (80.0-98.0); NRBC Abs Auto 0.000 X10*3/uL (0.0-0.012); NRBC Pct Auto 0.0 /100WBC (0.0-0.2); Platelet Count 818 X10*3/uL (160-400); Red Blood Count 2.57 X10*6/uL (4.20-5.50); White Blood Count 13.8 X10*3/uL (4.8-10.8)
--- NOTE | 2025-04-15 16:29 | PM.EVENT ---
Event Note Date of Service: 04/15/25 Event Note: Reports that the patient inserted a straw in her nose, and began to inhale a substance while in the room. Discussed with the patient, and denied use of anything. Urine toxicology was ordered. Urine toxicology returned +ve for cocaine and fentanyl. Discussed with the patient that she has been admitted in hospital facility since 04/02, and would not expect +ve fentanyl or cocaine in urine. The patient denies use of illicit substances. Patient was agreeable to possession search; which yielded multiple bags and pills - these were confiscated. Discussed with the patient policy implementation: - no visitor policy currently in effect - items dropped off from family members/friends/visitors need to be searched by security - continue video monitoring in room - addiction medicine consultation Unfortunately, this complicates the patient's ability to obtain a tunneled catheter and for discharge/outpatient antibiotics Time Spent With Patient Time: Total time managing care of this patient today 45 minutes.
--- NOTE | 2025-04-15 16:30 | PC.NURSE ---
15:00 - patient has intermittent drowsiness during shift, falling asleep while sitting upright in bed but easily arousable to voice. Boyfriend visiting in room. Patient asked if she has other drugs on her or is taking other drugs not administered by nursing, patient denied having drugs or drug use. Patient educated for her safety on the importance of not taking other drugs, including illicit drugs, that the hospital staff is not aware of, due to adverse effects of medication and potential harm to her, patient verbalized understanding. Provider Tarun ordered urine toxicology. 15:52- provider notified of results via [employer]. 16:00 - Provider Tarun came to bedside and spoke to patient with this nurse present and catalyst unit operator. Provider discussed lab results and enforced a no visitor policy at this time. Security called to bedside and did a search of patient and belongings. Security removed pill bag from patient room, image below. Security to dispose of pills. Bed alarm remains on patient and virtual monitor in place.
[2025-04-15 16:55] LABS: Alanine Aminotransferase 9 U/L (0-31); Albumin Level 2.5 g/dL (3.5-5.0); Alkaline Phosphatase 70 U/L (39-117); Anion Gap 9 (12-20); Aspartate Amino Transferase 21 U/L (5-31); Blood Urea Nitrogen 11 mg/dL (9-16); Calcium 7.8 mg/dL (8.4-10.2); Carbon Dioxide 28 mmol/L (22-29); Chloride 106 mmol/L (96-108); Creatinine Clr Calc Pharmacy 105.2; Estimated Glomerular Filt Rate > 60; Potassium 3.4 mmol/L (3.3-5.1); Sodium 140 mmol/L (135-145); Total Protein 5.4 g/dL (6.5-8.0)
[2025-04-16] VITALS (13 sets, daily range): BP systolic 134–156; BP diastolic 61–96; PULSE 71–89; RESP 16–20; TEMP 36.2–37.3; O2SAT 96–100
[2025-04-16] MEDS: methADONE HCl 20 MG/2 ML ORAL.CONC 45 MG PO ×4 (00:21→23:56)
[2025-04-16 06:34] LABS: Creatinine Clr Calc Pharmacy 117.7; Estimated Glomerular Filt Rate > 60
--- NOTE | 2025-04-16 06:38 | PM.EVENT ---
Event Note Date of Service: 04/16/25 Event Note: Nursing message via tiger text that patient's left hand is swollen. This was noted as patient was using the bathroom. Requested neurovascular checks and all within normal limits per primary nurse. They report that patient has pulses that are bounding, capillary refill within normal limits and skin is warm. Per review of records patient recently returned from [facility] after a right upper arm fasciotomy. This mortgage loan underwriter is not aware of any intervention on the left arm. Reporting information to day shift and labs are pending. Patient may need further evaluation as she was consulted with surgery yesterday. This consultation we will reflect on the left arm as well. This mortgage loan underwriter in the process of admitting the patient in the ED and there is no urgent need at this time. Hospitalist attending updated. Time Spent With Patient Time: Total time managing care of this patient today ____ minutes.
--- NOTE | 2025-04-16 07:16 | PC.NURSE ---
0600 went into pt room to take her to the bathroom. It was noted that pt ID bracelet was very tight around her wrist - it was promptly removed. +4 pitting edema to left hand. Hand warm with good cap refill, radial pulse present and arm elevated. LAUNDRY WORKER Karl notified. A brief discussion over the phone with LAUNDRY WORKER Karl took place to confirm the new onset swelling was in the left hand. Provider will pass on information to day provider. Pt not having any other new symptoms at this time.
[2025-04-16 08:03] LABS: MANUAL DIFF FLAG NO
[2025-04-16 08:06] LABS: Hematocrit 21.5 % (37.0-47.0); Imm Gran Abs Auto 0.27 X10*3/uL (0.00-0.03); Imm Gran Pct Auto 2.8 % (0.0-0.4); Lymphocytes Absolute Auto 2.3 X10*3/uL (1.2-4.9); Mean Corpuscular HGB Conc 30.7 g/dl (31.0-35.0); Mean Corpuscular Hemoglobin 27.3 pg (27.0-33.0); Mean Corpuscular Volume 88.8 fL (80.0-98.0); NRBC Abs Auto 0.000 X10*3/uL (0.0-0.012); NRBC Pct Auto 0.0 /100WBC (0.0-0.2); Platelet Count 746 X10*3/uL (160-400); Red Blood Count 2.42 X10*6/uL (4.20-5.50); White Blood Count 9.8 X10*3/uL (4.8-10.8)
[2025-04-16 08:14] LABS: Hemoglobin 6.6 g/dl (12.0-16.0)
[2025-04-16 08:22] LABS: Alanine Aminotransferase 9 U/L (0-31); Albumin Level 2.5 g/dL (3.5-5.0); Alkaline Phosphatase 61 U/L (39-117); Anion Gap 8 (12-20); Aspartate Amino Transferase 29 U/L (5-31); Blood Urea Nitrogen 11 mg/dL (9-16); Calcium 7.9 mg/dL (8.4-10.2); Carbon Dioxide 29 mmol/L (22-29); Chloride 107 mmol/L (96-108); Creatinine Clr Calc Pharmacy 115.8; Estimated Glomerular Filt Rate > 60; Potassium 3.7 mmol/L (3.3-5.1); Sodium 140 mmol/L (135-145); Total Protein 5.2 g/dL (6.5-8.0)
[2025-04-16] MEDS: 0.9 % Sodium Chloride Flush 3 ML SYRINGE IVFLUSH (08:53)
--- NOTE | 2025-04-16 09:46 | PC.NURSE ---
surgical drsg are being changed by wound nurse and surgery at present ,phlebotomy unable to draw T&S at present
--- NOTE | 2025-04-16 10:33 | MHC.CM.PN ---
Patient not medically cleared for dc. Awaiting final plan for wounds from surgery. Updates sent to Tammy who is reviewing. CM will continue to follow.
--- NOTE | 2025-04-16 11:01 | PM.PNGS ---
Subjective Subjective Date of Service: 04/16/25 <Berta Be PA-C - Last Filed: 04/16/25 14:04> 04/17/25 <Galo Rosenberg MD - Last Filed: 04/17/25 07:54> Interval history: Was very somnolent yesterday intermittently throughout the day. Utox ordered and was positive for fentanyl and cocaine. Room searched by security and illicit drugs found. More alert today. C/o ongoing pain at wounds. Agreeable to wound vac therapy and placement today. <Berta Be PA-C - Last Filed: 04/16/25 14:04> Physical Exam Vital Signs: Vital Signs: Last Vital Signs Temp 99.1 F 04/16/25 08:00 Pulse 83 04/16/25 08:00 Resp 16 04/16/25 08:00 BP 139/71 04/16/25 08:00 Pulse Ox 96 04/16/25 08:00 O2 Del Method Room Air 04/16/25 08:00 <Berta Be PA-C - Last Filed: 04/16/25 14:04> Const: Orientation/consciousness: patient oriented x3 <Berta Be PA-C - Last Filed: 04/16/25 14:04> Resp: Effort & Inspection: normal respiratory effort and able to speak in complete sentences <Berta Be PA-C - Last Filed: 04/16/25 14:04> Skin: Other: Please see wound RN notes for pictures of wounds from 04/16/25- right anteriomedial and posterior upper extremity as well as right lateral chest remain clean appearing with some serosanguineous drainage, no necrotic tissue or purulence, surrounding tissue soft; mitul drain tunneling from right chest wound to right axilla and arm removed uneventfully <Berta Be PA-C - Last Filed: 04/16/25 14:04> Neuro: General: patient oriented x3 and moves all extremities <CONNER Scruggs Last Filed: 04/16/25 14:04> Objective Data Active Medications Acetaminophen (Acetaminophen 325 Mg Tablet) 650 mg PO Q6H PRN PRN Reason: Pain, Mild 1-3,fever,headache Last Admin: 04/15/25 21:37 Dose: 650 mg Documented By: RAFAEL Albuterol Sulfate (Albuterol Sulfate (0.083%) 2.5 Mg/3 Ml Vial.Neb) 2.5 mg INHALE Q4H PRN PRN Reason: Wheezing Baclofen (Baclofen 10 Mg Tablet) 10 mg PO TID COUNTS INCLUDE 234 BEDS AT THE [facility] Last Admin: 04/16/25 08:59 Dose: 10 mg Documented By: ROSI Bisacodyl (Bisacodyl 10 Mg Supp.Rect) 10 mg ID BEDTIME PRN PRN Reason: Constipation Calcium Carbonate (Calcium Carbonate 750 Mg Tab.Chew) 750 mg PO Q4H PRN PRN Reason: Heartburn Clonidine HCl (Clonidine Hcl 0.1 Mg Tablet) 0.1 mg PO BID COUNTS INCLUDE 234 BEDS AT THE [facility]; Protocol Last Admin: 04/16/25 08:59 Dose: 0.1 mg Documented By: ROSI Enoxaparin Sodium (Enoxaparin Sodium 40 Mg/0.4 Ml Syringe) 40 mg SUBCUT Q24H COUNTS INCLUDE 234 BEDS AT THE [facility] Last Admin: 04/16/25 08:44 Dose: Not Given Documented By: ROSI Non-Admin Reason: held per dr. Mcneil Folic Acid (Folic Acid 1 Mg Tablet) 1 mg PO DAILY COUNTS INCLUDE 234 BEDS AT THE [facility] Last Admin: 04/16/25 08:58 Dose: 1 mg Documented By: ROSI Gabapentin (Gabapentin 300 Mg Capsule) 300 mg PO TID COUNTS INCLUDE 234 BEDS AT THE [facility] Last Admin: 04/16/25 08:59 Dose: 300 mg Documented By: ROSI Hydromorphone HCl (Hydromorphone Hcl 2 Mg Tablet) 4 mg PO Q3H PRN PRN Reason: Pain, Severe (Pain Scale 7-10) Last Admin: 04/16/25 00:55 Dose: 4 mg Documented By: RAFAEL Hydromorphone HCl (Hydromorphone Hcl 1 Mg/Ml Syringe) 1 mg IVPUSH Q4H PRN; Protocol PRN Reason: 30m prior to wound care Last Admin: 04/16/25 08:52 Dose: 1 mg Documented By: ROSI Vancomycin HCl 1,250 mg/ (Sodium Chloride) 250 mls @ 166.667 mls/hr IV Q12H COUNTS INCLUDE 234 BEDS AT THE [facility] Last Infusion: 04/16/25 01:40 Dose: Infused Documented By: RAFAEL Magnesium Hydroxide (Milk Of Magnesia 30 Ml Oral.Susp) 30 ml PO DAILY PRN PRN Reason: Constipation Melatonin (Melatonin 3 Mg Tablet) 6 mg PO BEDTIME PRN PRN Reason: Insomnia Methadone HCl (Methadone Hcl 20 Mg/2 Ml Oral.Conc) 45 mg PO Q8H COUNTS INCLUDE 234 BEDS AT THE [facility] Last Admin: 04/16/25 08:51 Dose: 45 mg Documented By: ROSI Co-signed By: LAKSHMI Multivitamins/Vitamin C (Multivitamin Tablet) 1 tab PO DAILY COUNTS INCLUDE 234 BEDS AT THE [facility] Last Admin: 04/16/25 08:59 Dose: 1 tab Documented By: ROSI Naloxone HCl (Naloxone Hcl 0.4 Mg/Ml Vial) 0.1 mg IVPUSH Q5M PRN PRN Reason: Opiate Reversal Pharmacy Consult (Consult Rx Vancomycin Dosing) 1 each MISCELLANE DAILY PRN PRN Reason: Consult order Stop: 05/09/25 09:00 Senna/Docusate Sodium (Sennosides/Docusate Sodium Tablet) 1 tab PO BEDTIME COUNTS INCLUDE 234 BEDS AT THE [facility] Last Admin: 04/15/25 21:52 Dose: Not Given Documented By: RAFAEL Non-Admin Reason: Patient Refused Sodium Chloride (0.9 % Sodium Chloride Flush 3 Ml Syringe) 3 ml IVFLUSH QSHIFT COUNTS INCLUDE 234 BEDS AT THE [facility] Last Admin: 04/16/25 08:53 Dose: 3 ml Documented By: ROSI Thiamine HCl (Thiamine Hcl 100 Mg Tablet) 100 mg PO DAILY COUNTS INCLUDE 234 BEDS AT THE [facility] Last Admin: 04/16/25 08:58 Dose: 100 mg Documented By: ROSI <Berta Be PA-C - Last Filed: 04/16/25 14:04> Labs CBC & Chem 7: 04/17/25 05:24 04/17/25 05:24 <Berta Be PA-C - Last Filed: 04/16/25 14:04> Labs: Laboratory Results - last 24 hr 04/15/25 04/15/25 04/15/25 10:37 14:56 15:56 MCV 89.1 MCH 28.4 MCHC 31.9 RDW 18.0 H Plt Count 818 H MPV 9.1 L Immature Gran % (Auto) 2.6 H Neut % (Auto) 69.4 Lymph % (Auto) 19.9 L [place] % (Auto) 4.9 Eos % (Auto) 2.4 Baso % (Auto) 0.8 Lymph # (Auto) 2.8 [place] # (Auto) 0.7 Eos # (Auto) 0.3 Baso # (Auto) 0.1 Abs Immat Gran (auto) 0.36 H Absolute Neuts (auto) 9.6 H Absolute Nucleated RBC 0.000 Nucleated RBC % (auto) 0.0 Smear Path Review Hold Purple Top Anion Gap 9 L Estim Creat Clear Calc 105.2 Estimated GFR > 60 Random Glucose 122 H Calcium 7.8 L Total Bilirubin 0.1 AST 21 ALT 9 Alkaline Phosphatase 70 Total Protein 5.4 L Albumin 2.5 L Random Vancomycin 18.5 Urine Opiates Screen POSITIVE H Ur Buprenorphine Scrn Not Detected Ur Oxycodone Screen Not Detected Urine Methadone Screen Positive H Urine Fentanyl Screen POSITIVE H Ur Barbiturates Screen Not Detected Ur Phencyclidine Scrn Not Detected Ur Amphetamines Screen Not Detected U Benzodiazepines Scrn Not Detected Urine Cocaine Screen POSITIVE H U Marijuana (THC) Screen Not Detected 04/16/25 04/16/25 04/16/25 05:56 05:58 07:59 MCV 88.8 MCH 27.3 MCHC 30.7 L RDW 18.1 H Plt Count 746 H MPV 8.8 L Immature Gran % (Auto) 2.8 H Neut % (Auto) 65.4 Lymph % (Auto) 23.4 [place] % (Auto) 5.7 Eos % (Auto) 1.8 Baso % (Auto) 0.9 Lymph # (Auto) 2.3 [place] # (Auto) 0.6 Eos # (Auto) 0.2 Baso # (Auto) 0.1 Abs Immat Gran (auto) 0.27 H Absolute Neuts (auto) 6.4 Absolute Nucleated RBC 0.000 Nucleated RBC % (auto) 0.0 Smear Path Review SEE NOTE Hold Purple Top SEE NOTE Anion Gap 8 L Estim Creat Clear Calc 117.7 115.8 Estimated GFR > 60 > 60 Random Glucose 108 Calcium 7.9 L Total Bilirubin 0.2 AST 29 ALT 9 Alkaline Phosphatase 61 Total Protein 5.2 L Albumin 2.5 L Random Vancomycin Urine Opiates Screen Ur Buprenorphine Scrn Ur Oxycodone Screen Urine Methadone Screen Urine Fentanyl Screen Ur Barbiturates Screen Ur Phencyclidine Scrn Ur Amphetamines Screen U Benzodiazepines Scrn Urine Cocaine Screen U Marijuana (THC) Screen <Berta Be PA-C - Last Filed: 04/16/25 14:04> Procedures Date of Service Date of Service: 04/16/25 <Berta Be PA-C - Last Filed: 04/16/25 14:04> 04/17/25 <Galo Rosenberg MD - Last Filed: 04/17/25 07:54> Progress Note: A&P Assessment and plan (1) Open wound of right upper extremity: Status: Acute <Berta Be PA-C - Last Filed: 04/16/25 14:04> Assessment and Plan: Wound VAC placed I was present during dressing change All wounds appear clean Continue wound care Looks well overall Seen and examined with TAMI Be and wound care team <Galo Rosenberg MD - Last Filed: 04/17/25 07:54> Assessment and Plan: Dressings removed and mitul drain removed. Wounds of right upper extremity/chest remain clean appearing without necrosis and would benefit from wound vac placement. Wound vac placed with bridging to right anteriomedial, posterior upper extremity and right chest wound with wound care RNs. Good seal noted. Plan dressing change on Monday. Further care as per hospitalist service. <Berta Be PA-C - Last Filed: 04/16/25 14:04> Time Spent With Patient Time: Total time managing care of this patient today ____ minutes. <Berta Be PA-C - Last Filed: 04/16/25 14:04> Quality Stroke Does the patient have a stroke diagnosis?: No <Berta Be PA-C - Last Filed: 04/16/25 14:04> VTE Prior VTE?: No <Berta Be PA-C - Last Filed: 04/16/25 14:04> VTE Risk Level:: Medical - moderate - high <Berta Be PA-C - Last Filed: 04/16/25 14:04> VTE Device Contraindication: Treatment Not Indicated <Berta Be PA-C - Last Filed: 04/16/25 14:04> VTE Drug Contraindication: N/A - Med Ordered <Berta Be PA-C - Last Filed: 04/16/25 14:04>
--- NOTE | 2025-04-16 11:39 | HO.WOUND ---
Addendum entered by Nidia Sparks RN 04/16/25 14:48: @2377 Wound Vac Checked - suction maintained since 1007am when initiated. Patient observed to be sleeping did not wake. Approximately 50cc of red drainage in canister, clear pink drainage in tubing no concern for active bleeding at this time from wounds. Original Note: Wound Consult: Initial 34yr old?female admitted to [facility] on 04/14/25 21:20 - See progress notes and H&P for detailed history.? Patient seen today with Inpatient wound Care Team and Berta GARRETT from general surgery - patient was agreeable to assessment and wound vac application along with photo documentation.?Patient recalls our roles in her care. She was educated on what to expect and the benefits of wound vac application. Patient was premedicated by direct care nurse see MAR for details. Left Forearm / anticubital area dressing was loose and wet with drainage. Patient reports increase pain since dressing loosening. Of importance bilateral hand swelling noted - providers are aware. Patient reports a decrease swelling since overnight discovery. +Bounding radial pulses noted - denies numbness and tingling. Recommend continued elevation on pillows to aid in swelling reduction. The left forearm Anticubital wound appears smaller measuring 1.5cm x 1cm with an unprobed depth but appears greater than 1cm. Moist pink wound bed no induration no erythema and no fluctance noted. Topical dressing changed to Druafiber AG and foam dressing. To be changed daily at this time will continue to assess for ability to push out dressing changes. Right Chest Right Upper Medial Bicep Arm Right Posterior Upper Arm Right Chest, Bicep and posterior upper arm treated with NPWT (Negative Pressure Wound Therapy), first application today. NPWT Suction Settings: 125mmHg - Setting Type: Continuous Premedication provided by direct care nurse see MAR. Wound bed: Chest is noted for pink moist tissue with scant yellow slough - full thickness depth noted - moderate to copious amount of sero sang drainage - no odor noted. Right Upper Bicep Arm - exposed muscle beefy red moist tissue Right Posterior Upper Arm - Exposed muscle beefy red moist tissue with exposed tendon All wounds are viable and clean. The Posterior site does have a small 1.5cm x1cm superior to the open incision - this was treated with Durafiber AG packing and a foam dressing. All sites were cleansed and irrigated with NS, Pat dry. Digna removed by Surgery without incident. NPWT Dressing Application: 1 black foam cut to size and applied to individual wound beds (one at chest not packed into tunnel just applied to wound bed, one piece applied to bicep area and one to posterior site), Right Axilla skin and wound edge protected with Paste Strip outlining edge.? Skin protected with Drape for Bridge from posterior site to bicep and then bicep to chest. Dressing completed and no leak noted.? Suction set to 125mmHg - patient denies pain and or burning sensation after a period of time to relax and get situated. Patient was noted to be moving both extremities better than prior to application of wound vac. At the time of leaving patients room she reported the wound vac in place felt so much better and overall she had less pain. She reported she felt the application was very difficult for her but the feeling after is improved. she is agreeable to wound vac change Monday. Patient did not tolerated wound vac application well, there were several periods of time when breaks were offered, she was overwhelmed with anxiety and panic at times. She was distracted with talking and use of her phone. The wound vac application took a significant amount of time close to 2 hours in entirety. Plan is to change , W schedule - next change will be Monday this week. Nursing Considerations: Wound vac should be on and set to suction at all times - if leak occurs reinforce with drape left at bedside or tegaderm.? If unable to obtain seal page covering doctor from Orthopedic Service Team.? If not able to obtain suction for 2 consecutive hours remove and apply wet to dry dressing - notify providers. If bright red blood is noted in Vac canister stop wound vac and page doctor immediately. InPatient wound care team will continue to follow patient while inpatient at this time.
--- NOTE | 2025-04-16 14:48 | P.PNIM_ITS ---
Subjective Subjective Date of Service: 04/16/25 Interval History: Patient in good spirits today, especially after events yesterday. The patient has been highly compliant with our safety plan that was put in place. She has had no complaints with visit or restriction. She is happy with being able to communicate with the family members via phone or face time. Patient has been pleased with medical progress she has been making so far, and expresses regret regarding events yesterday. No behavioral challenges, no security has been called. Of note, the patient had a hemoglobin of 6.7 mg/dL today, gradually decreasing from yesterday and the day prior. The patient has had no significant bleeding, however is likely from mild bleeding from wounds. Blood consent form was reviewed with the patient and signed. 2 unit PRBCs were ordered for the patient. Wound VAC was placed for the patient by wound care team today. Looks good! Review of Systems Review of Systems: Yes all other systems are reviewed and are negative Physical Exam 2 Exam: Exam: General: A&O x3, oriented to time place person and situation, comfortable; in pain. Cardiac: S1, S2 auscultated with no S3/4, no MRG. Well perfused. Respiratory: Normal breath sounds auscultated throughout all lung zones, without wheezing, rales. Normal rate. GI/ : No abdominal pain on palpation, no masses or distentions. MSK: Multiple extensive open/ packed surgical wounds - RUE (medial shoulder to medial antecubital fossa), anterior chest roberto wound, LUE would proximal to antecub. fossa; Wound vac placed today over right upper extremity and right ant chest roberto wound. Neurological: Normal neurological examination on overview, without obvious CN II-XII abnormalities. Vital Signs: Vital Signs: Last Vital Signs Temp 98.2 F 04/16/25 13:14 Pulse 77 04/16/25 13:14 Resp 20 04/16/25 13:14 BP 137/69 04/16/25 13:14 Pulse Ox 97 04/16/25 11:17 O2 Del Method Room Air 04/16/25 11:17 Objective Data Active Medications Acetaminophen (Acetaminophen 325 Mg Tablet) 650 mg PO Q6H PRN PRN Reason: Pain, Mild 1-3,fever,headache Last Admin: 04/15/25 21:37 Dose: 650 mg Documented By: RAFAEL Albuterol Sulfate (Albuterol Sulfate (0.083%) 2.5 Mg/3 Ml Vial.Neb) 2.5 mg INHALE Q4H PRN PRN Reason: Wheezing Baclofen (Baclofen 10 Mg Tablet) 10 mg PO TID [facility] Last Admin: 04/16/25 08:59 Dose: 10 mg Documented By: ROSI Bisacodyl (Bisacodyl 10 Mg Supp.Rect) 10 mg MS BEDTIME PRN PRN Reason: Constipation Calcium Carbonate (Calcium Carbonate 750 Mg Tab.Chew) 750 mg PO Q4H PRN PRN Reason: Heartburn Clonidine HCl (Clonidine Hcl 0.1 Mg Tablet) 0.1 mg PO BID [facility]; Protocol Last Admin: 04/16/25 08:59 Dose: 0.1 mg Documented By: ROSI Enoxaparin Sodium (Enoxaparin Sodium 40 Mg/0.4 Ml Syringe) 40 mg SUBCUT Q24H [facility] Last Admin: 04/16/25 08:44 Dose: Not Given Documented By: ROSI Non-Admin Reason: held per dr. Mcneil Folic Acid (Folic Acid 1 Mg Tablet) 1 mg PO DAILY [facility] Last Admin: 04/16/25 08:58 Dose: 1 mg Documented By: ROSI Gabapentin (Gabapentin 300 Mg Capsule) 300 mg PO TID [facility] Last Admin: 04/16/25 08:59 Dose: 300 mg Documented By: ROSI Hydromorphone HCl (Hydromorphone Hcl 2 Mg Tablet) 4 mg PO Q3H PRN PRN Reason: Pain, Severe (Pain Scale 7-10) Last Admin: 04/16/25 11:47 Dose: 4 mg Documented By: ROSI Hydromorphone HCl (Hydromorphone Hcl 1 Mg/Ml Syringe) 1 mg IVPUSH Q4H PRN; Protocol PRN Reason: 30m prior to wound care Last Admin: 04/16/25 08:52 Dose: 1 mg Documented By: ROSI Vancomycin HCl 1,250 mg/ (Sodium Chloride) 250 mls @ 166.667 mls/hr IV Q12H [facility] Last Admin: 04/16/25 13:45 Dose: 166.67 mls/hr Documented By: ROSI Magnesium Hydroxide (Milk Of Magnesia 30 Ml Oral.Susp) 30 ml PO DAILY PRN PRN Reason: Constipation Melatonin (Melatonin 3 Mg Tablet) 6 mg PO BEDTIME PRN PRN Reason: Insomnia Methadone HCl (Methadone Hcl 20 Mg/2 Ml Oral.Conc) 45 mg PO Q8H [facility] Last Admin: 04/16/25 08:51 Dose: 45 mg Documented By: ROSI Co-signed By: LAKSHMI Multivitamins/Vitamin C (Multivitamin Tablet) 1 tab PO DAILY [facility] Last Admin: 04/16/25 08:59 Dose: 1 tab Documented By: ROSI Naloxone HCl (Naloxone Hcl 0.4 Mg/Ml Vial) 0.1 mg IVPUSH Q5M PRN PRN Reason: Opiate Reversal Pharmacy Consult (Consult Rx Vancomycin Dosing) 1 each MISCELLANE DAILY PRN PRN Reason: Consult order Stop: 05/09/25 09:00 Senna/Docusate Sodium (Sennosides/Docusate Sodium Tablet) 1 tab PO BEDTIME [facility] Last Admin: 04/15/25 21:52 Dose: Not Given Documented By: RAFAEL Non-Admin Reason: Patient Refused Sodium Chloride (0.9 % Sodium Chloride Flush 3 Ml Syringe) 3 ml IVFLUSH QSHIFT [facility] Last Admin: 04/16/25 08:53 Dose: 3 ml Documented By: ROSI Thiamine HCl (Thiamine Hcl 100 Mg Tablet) 100 mg PO DAILY [facility] Last Admin: 04/16/25 08:58 Dose: 100 mg Documented By: ROSI Labs 04/16/25 07:59 04/16/25 07:59 Labs: Laboratory Results - last 24 hr 04/15/25 04/15/25 04/16/25 14:56 15:56 05:56 MCV 89.1 MCH 28.4 MCHC 31.9 RDW 18.0 H Plt Count 818 H MPV 9.1 L Immature Gran % (Auto) 2.6 H Neut % (Auto) 69.4 Lymph % (Auto) 19.9 L [place] % (Auto) 4.9 Eos % (Auto) 2.4 Baso % (Auto) 0.8 Lymph # (Auto) 2.8 [place] # (Auto) 0.7 Eos # (Auto) 0.3 Baso # (Auto) 0.1 Abs Immat Gran (auto) 0.36 H Absolute Neuts (auto) 9.6 H Absolute Nucleated RBC 0.000 Nucleated RBC % (auto) 0.0 Smear Path Review Hold Purple Top Anion Gap 9 L Estim Creat Clear Calc 105.2 117.7 Estimated GFR > 60 > 60 Random Glucose 122 H Calcium 7.8 L Total Bilirubin 0.1 AST 21 ALT 9 Alkaline Phosphatase 70 Total Protein 5.4 L Albumin 2.5 L Urine Opiates Screen POSITIVE H Ur Buprenorphine Scrn Not Detected Ur Oxycodone Screen Not Detected Urine Methadone Screen Positive H Urine Fentanyl Screen POSITIVE H Ur Barbiturates Screen Not Detected Ur Phencyclidine Scrn Not Detected Ur Amphetamines Screen Not Detected U Benzodiazepines Scrn Not Detected Urine Cocaine Screen POSITIVE H U Marijuana (THC) Screen Not Detected Blood Type Antibody Screen Crossmatch 04/16/25 04/16/25 04/16/25 05:58 07:59 11:02 MCV 88.8 MCH 27.3 MCHC 30.7 L RDW 18.1 H Plt Count 746 H MPV 8.8 L Immature Gran % (Auto) 2.8 H Neut % (Auto) 65.4 Lymph % (Auto) 23.4 [place] % (Auto) 5.7 Eos % (Auto) 1.8 Baso % (Auto) 0.9 Lymph # (Auto) 2.3 [place] # (Auto) 0.6 Eos # (Auto) 0.2 Baso # (Auto) 0.1 Abs Immat Gran (auto) 0.27 H Absolute Neuts (auto) 6.4 Absolute Nucleated RBC 0.000 Nucleated RBC % (auto) 0.0 Smear Path Review SEE NOTE Hold Purple Top SEE NOTE Anion Gap 8 L Estim Creat Clear Calc 115.8 Estimated GFR > 60 Random Glucose 108 Calcium 7.9 L Total Bilirubin 0.2 AST 29 ALT 9 Alkaline Phosphatase 61 Total Protein 5.2 L Albumin 2.5 L Urine Opiates Screen Ur Buprenorphine Scrn Ur Oxycodone Screen Urine Methadone Screen Urine Fentanyl Screen Ur Barbiturates Screen Ur Phencyclidine Scrn Ur Amphetamines Screen U Benzodiazepines Scrn Urine Cocaine Screen U Marijuana (THC) Screen Blood Type A Positive Antibody Screen NEGATIVE Crossmatch See Detail Assessment and Plan (1) Substance use disorder: Status: Acute (2) IV drug abuse: Status: Acute (3) Opioid use disorder, severe, dependence: Status: Acute (4) Cellulitis: Status: Acute (5) Sepsis: Status: Acute (6) Abscess of right upper arm and forearm: Status: Acute (7) Abscess of left upper arm and forearm: Status: Acute (8) Myositis: Status: Acute (9) Open wound of right upper extremity: Status: Acute (10) Open wound of left upper arm: Status: Acute Plan 34 yo female with PMH IVDU c/b hx overdose on methadone, xylozene infection L forearm, depression/ anxiety uses xanax and clonidine off the street, presents with swelling of right upper extremity, admitted 04/02-04/06 with sepsis 2/2 right upper extremity abscess and cellulitis with myositis 2/2 IVDU s/p I&D R shoulder - transferred to [facility] for extensive debridement and I&Ds of multiple bilateral UE abscesses - transfered to [facility] for continued management. Sepsis - MRSA+ve Bilateral upper extremity abscesses Bilateral upper extremity cellulitis Bilateral upper extremity fasciitis Bilateral upper extremity myositis IVDU Patient met criteria for sepsis on admission 04/02; noting bandemia 41, lactic acid 2.7 down to 1.8 after IV fluids, tachycardia. ESR and CRP both elevated. CT of the right upper extremity confirms cellulitis with extensive myositis and developing ill-defined abscess at the level of the shoulder with reactive right axillary adenopathy. S/P I&D by general surgery 04/03/25 - no complications No evidence on TTE valvular vegetation. Possible micro seeding. Re-evaluation with CT right and left upper extremities for evidence of infective endocarditis/septic emboli; revealing extensive evidence of abscesses, phlegmon, tenosynoviitis and superimposed fasciitis, myositis and possible tissue necrosis - please see CT report for specifics. Surgery reports that burden of disease is extensive, requiring higher level of care - transferred to [facility] - s/p I&D of RUE and LUE; 04/08/25 - RUE biceps & triceps abscesses - Left AC fossa abscess Currently on: - Vancomycin (end dose 05/07/25) - Clindamycin (end dose 04/15/25) - Post vancomycin, start Doxycyline (05/08-05/22/25) Last negative culture: 04/09/25 Patient has right triple lumen IJ PLAN - Vancomycin (end dose 05/07/25) - Clindamycin (end dose 04/15/25) - Post vancomycin, start Doxycyline (05/08-05/22/25) - wound care consultation placed - general surgery consultation placed - Dilaudid 4 mg q.3h hourly - Dilaudid 1 mg q.1h hourly p.r.n. ; 30 minutes prior to wound cleaning - Packing changes to right upper extremity and right chest wall with to dry saline moistured Kerlix gauze, cover with Kerlix wrap followed by Osbaldo wrap- - Left upper extremity has a retained needles from patient's injections prior to admission, DO NOT PACK THIS WOUND WITH FINGERS MOST USE INSTRUMENTS, either Luda forcepts etc Acute blood loss anemia S/p hematoma w/ clot evacuation 04/08/2025 Anemia s/p 1UPRBC transfusion at [facility]. Hemoglobin decreased to 6.7 mg/dL today. Type and screen and blood consent forms were signed 2 unit PRBC was administered with the patient without complication Repeat CBC Mild hyponatremia - resolved Hypokalemia - Trend BMP daily GERD - Protonix b.i.d. - Monitor H&H Constipation - Milk of magnesia UTE - heroin/fentanyl - cocaine Patient normally on methadone 130 mg per day, confirmed with Addiction medicine services Continue Methadone Addiction medicine consultation for reccs re; pain management outpatient setting Patient has been found to be using illicit substances during hospital stay. These items have been confiscated Discussed with the patient policy implementation: - no visitor policy currently in effect - items dropped off from family members/friends/visitors need to be searched by security - continue video monitoring in room - addiction medicine consultation [employer] - VTE: Enoxaparin - CODE STATUS: Full code - DIET: Regular Total time managing care of this patient today: 60 minutes. Quality Stroke Does the patient have a stroke diagnosis?: No VTE Prior VTE?: No VTE Risk Level:: Medical - moderate - high VTE Device Contraindication: Treatment Not Indicated VTE Drug Contraindication: N/A - Med Ordered
--- NOTE | 2025-04-16 14:57 | MHC.RECOVRN ---
Tw met with pt in 374 to offer continued support. Pt was resting in bed with eyes closed, respirations even and unlabored, in no apparent distress. Upon pt name being called, pt opened her eyes and began crying stating, can I please have pain medicine? Even Tylenol, this thing is pulling on my chest and it hurts so bad . Tw informed pt that her pain level, rated 10/10, would be relayed to her primary RN. No one will tell me anything or give me anything because I had someone bring me heroin because I was in so much pain, now I just lay here at everyone else's mercy TW informed pt that everyone wants her to get well, safely, and the use of heroin to treat pain is not a safe method. Pt was also educated on the risk of over sedation and overdose if taking heroin in addition to pain medication. Pt vocalized her understanding and pt's pain complaint was sent to Primary RN via [place] [employer].
--- NOTE | 2025-04-16 21:45 | HE.PHANOTE ---
RE [facility] Patients level came back this evening at 16.1. Will continue with current dosing of 1250 mg Q12H as patients level is within therapeutic range for indication of skin. Will continue to monitor renal function daily. Next level to be drawn 04/18 @2100 to ensure safety vs efficacy. Level is to be drawn 3 hours prior to dose as timing with lab pending and pharmacy closing for the night might be a concern. Predicted AUC 500
[2025-04-17] VITALS (9 sets, daily range): BP systolic 134–165; BP diastolic 72–96; PULSE 65–84; RESP 16–18; TEMP 36.2–37; O2SAT 95–97
[2025-04-17] MEDS: 0.9 % Sodium Chloride Flush 3 ML SYRINGE IVFLUSH ×3 (00:09→16:36)
[2025-04-17 06:09] LABS: MANUAL DIFF FLAG NO
[2025-04-17 06:12] LABS: Hematocrit 30.2 % (37.0-47.0); Hemoglobin 9.9 g/dl (12.0-16.0); Imm Gran Abs Auto 0.25 X10*3/uL (0.00-0.03); Imm Gran Pct Auto 2.3 % (0.0-0.4); Lymphocytes Absolute Auto 2.7 X10*3/uL (1.2-4.9); Mean Corpuscular HGB Conc 32.8 g/dl (31.0-35.0); Mean Corpuscular Hemoglobin 29.2 pg (27.0-33.0); Mean Corpuscular Volume 89.1 fL (80.0-98.0); NRBC Abs Auto 0.000 X10*3/uL (0.0-0.012); NRBC Pct Auto 0.0 /100WBC (0.0-0.2); Platelet Count 740 X10*3/uL (160-400); Red Blood Count 3.39 X10*6/uL (4.20-5.50); White Blood Count 11.0 X10*3/uL (4.8-10.8)
[2025-04-17 06:25] LABS: Anion Gap 13 (12-20); Blood Urea Nitrogen 14 mg/dL (9-16); Calcium 8.4 mg/dL (8.4-10.2); Carbon Dioxide 28 mmol/L (22-29); Chloride 103 mmol/L (96-108); Creatinine Clr Calc Pharmacy 108.5; Estimated Glomerular Filt Rate > 60; Potassium 3.7 mmol/L (3.3-5.1); Sodium 140 mmol/L (135-145)
[2025-04-17] MEDS: methADONE HCl 20 MG/2 ML ORAL.CONC 45 MG PO ×3 (08:17→21:17)
--- NOTE | 2025-04-17 08:31 | PC.NURSE ---
0600 Nursing progress note. Pt alert oriented x4. VS stable throughout the shift. Right chest, anterior and posterior upper arm surgical sites with wound vac attached w/suction as ordered. Wound vac dressing reinforced with Tegaderm 3 times throughout the shift for audible leak alarm. Leak intermittent and appeared to occur in multiple areas requiring Tegaderm reinforcement to ensure continuous wound vac drainage suction. Wound vac draining serosanguineous drainage. Patients verbal pain level 7 out of 10 with PRN 4mg Dilaudid PO provided with mild to moderate pain relief as demonstrated by patient sleeping throughout the night, eating snacks and talking on the phone overnight and reporting pain level decreasing to verbal score of 5. Supportive care provided and care is ongoing with continuing to encourage patient to utilize Incentive spirometry and ambulation.
--- NOTE | 2025-04-17 12:50 | HO.WOUND ---
Wound Care: Follow up 34yr old?female admitted to [facility] on 04/14/25 21:20 - See progress notes and H&P for detailed history.? Patient seen today for left AC dressing change and woundvac assessment - patient was agreeable to assessment and wound vac application.?Patient recalls my role in her care. She reports the left arm secondary dressing had to be changed twice since application yesterday due to drainage. Today when removed the foam dressing was saturated with serous drainage. Packing removed and wound bed remains red pink and viable - no observed slough noted. No erythema to periwound noted. Recommend continue with Durafibe AG packing and changing secondary dressing as needed. Left AC - Cleanse with NS moist gauze, Apply skin prep allow to dry. Lightly pack with Qtip DO NOT USE FINGERS due to concerns for murphy within wound bed. Cover with Foam dressing followed by ABD pad and Elastic netting. Change daily and secondary dressing PRN as needed for saturation. Wound vac dressing assessed - appears to maintain suction at this time no audible leak noted. Patient reports increased use of her right arm and tolerable pain. She reports burning sensation at times and a pulling on her right chest wall - tolerable given current pain medication regimen. We discussed packing the chest site with White foam when available to minimize pulling sensation at next wound vac change scheduled for tomorrow. Wound vac alarms assessed - it appears several times overnight the vac alarmed for leak - this appears to be for no more than a few minutes at a time. Patient and direct care team note the overnight RN reinforced with the NPWT dressing with tegaderms ultimately achieving suction without leak since approximately 6am. there was approximately 200cc of dark red fluid in the canister and clear light pink noted in tubing - no concern for active bleeding at this time. Patient will likely benefit greatly from continued wound vac therapy - discussed benfits with patient and plan to change tomorrow - she remains agreeable to this plan. Inpatient wound care and general surgery will continue to follow and treat. 04/16/25 @1458 Wound Vac Checked - suction maintained since 1007am when initiated. Patient observed to be sleeping did not wake. Approximately 50cc of red drainage in canister, clear pink drainage in tubing no concern for active bleeding at this time from wounds. Original Note: Wound Consult: Initial 34yr old?female admitted to [facility] on 10/13/25 21:20 - See progress notes and H&P for detailed history.? Patient seen today with Inpatient wound Care Team and Berta GARRETT from general surgery - patient was agreeable to assessment and wound vac application along with photo documentation.?Patient recalls our roles in her care. She was educated on what to expect and the benefits of wound vac application. Patient was premedicated by direct care nurse see [facility] for details. Left Forearm / anticubital area dressing was loose and wet with drainage. Patient reports increase pain since dressing loosening. Of importance bilateral hand swelling noted - providers are aware. Patient reports a decrease swelling since overnight discovery. +Bounding radial pulses noted - denies numbness and tingling. Recommend continued elevation on pillows to aid in swelling reduction. The left forearm Anticubital wound appears smaller measuring 1.5cm x 1cm with an unprobed depth but appears greater than 1cm. Moist pink wound bed no induration no erythema and no fluctance noted. Topical dressing changed to Druafiber AG and foam dressing. To be changed daily at this time will continue to assess for ability to push out dressing changes. Right Chest Right Upper Medial Bicep Arm Right Posterior Upper Arm Right Chest, Bicep and posterior upper arm treated with NPWT (Negative Pressure Wound Therapy), first application today. NPWT Suction Settings: 125mmHg - Setting Type: Continuous Premedication provided by direct care nurse see MAR. Wound bed: Chest is noted for pink moist tissue with scant yellow slough - full thickness depth noted - moderate to copious amount of sero sang drainage - no odor noted. Right Upper Bicep Arm - exposed muscle beefy red moist tissue Right Posterior Upper Arm - Exposed muscle beefy red moist tissue with exposed tendon All wounds are viable and clean. The Posterior site does have a small 1.5cm x1cm superior to the open incision - this was treated with Durafiber AG packing and a foam dressing. All sites were cleansed and irrigated with NS, Pat dry. [place] removed by Surgery without incident. NPWT Dressing Application: 1 black foam cut to size and applied to individual wound beds (one at chest not packed into tunnel just applied to wound bed, one piece applied to bicep area and one to posterior site), Right Axilla skin and wound edge protected with Paste Strip outlining edge.? Skin protected with Drape for Bridge from posterior site to bicep and then bicep to chest. Dressing completed and no leak noted.? Suction set to 125mmHg - patient denies pain and or burning sensation after a period of time to relax and get situated. Patient was noted to be moving both extremities better than prior to application of wound vac. At the time of leaving patients room she reported the wound vac in place felt so much better and overall she had less pain. She reported she felt the application was very difficult for her but the feeling after is improved. she is agreeable to wound vac change Monday. Patient did not tolerated wound vac application well, there were several periods of time when breaks were offered, she was overwhelmed with anxiety and panic at times. She was distracted with talking and use of her phone. The wound vac application took a significant amount of time close to 2 hours in entirety. Plan is to change , schedule - next change will be Monday this week. Nursing Considerations: Wound vac should be on and set to suction at all times - if leak occurs reinforce with drape left at bedside or tegaderm.? If unable to obtain seal page covering doctor from Orthopedic Service Team.? If not able to obtain suction for 2 consecutive hours remove and apply wet to dry dressing - notify providers. If bright red blood is noted in Vac canister stop wound vac and page doctor immediately. InPatient wound care team will continue to follow patient while inpatient at this time.
--- NOTE | 2025-04-17 14:11 | HO.PM.IMPN ---
Subjective Subjective Date of Service: 04/17/25 Interval History: No new issues today. Patient did well last night. No acute complaints. In pain, requesting medications - does v well post analgesia. Compliant with restrictions in place. Review of Systems Review of Systems: Yes all other systems are reviewed and are negative Physical Exam Exam: Exam: General: A&O x3, oriented to time place person and situation, comfortable; in pain. Cardiac: S1, S2 auscultated with no S3/4, no MRG. Well perfused. Respiratory: Normal breath sounds auscultated throughout all lung zones, without wheezing, rales. Normal rate. GI/ : No abdominal pain on palpation, no masses or distentions. MSK: Multiple extensive open/ packed surgical wounds - RUE (medial shoulder to medial antecubital fossa), anterior chest roberto wound, LUE would proximal to antecub. fossa; Wound vac placed today over right upper extremity and right ant chest roberto wound. Neurological: Normal neurological examination on overview, without obvious CN II-XII abnormalities. Vital Signs: Vital Signs: Last Vital Signs Temp 98.2 F 04/17/25 12:00 Pulse 74 04/17/25 12:00 Resp 16 04/17/25 12:00 BP 156/82 H 04/17/25 12:00 Pulse Ox 96 04/17/25 12:00 O2 Del Method Room Air 04/17/25 12:00 Objective Data Active Medications Acetaminophen (Acetaminophen 325 Mg Tablet) 650 mg PO Q6H PRN PRN Reason: Pain, Mild 1-3,fever,headache Last Admin: 04/15/25 21:37 Dose: 650 mg Documented By: RAFAEL Albuterol Sulfate (Albuterol Sulfate (0.083%) 2.5 Mg/3 Ml Vial.Neb) 2.5 mg INHALE Q4H PRN PRN Reason: Wheezing Baclofen (Baclofen 10 Mg Tablet) 10 mg PO TID [facility] Last Admin: 04/17/25 08:16 Dose: 10 mg Documented By: KUMAR Bisacodyl (Bisacodyl 10 Mg Supp.Rect) 10 mg SC BEDTIME PRN PRN Reason: Constipation Calcium Carbonate (Calcium Carbonate 750 Mg Tab.Chew) 750 mg PO Q4H PRN PRN Reason: Heartburn Clonidine HCl (Clonidine Hcl 0.1 Mg Tablet) 0.1 mg PO BID [facility]; Protocol Last Admin: 04/17/25 08:16 Dose: 0.1 mg Documented By: KUMAR Enoxaparin Sodium (Enoxaparin Sodium 40 Mg/0.4 Ml Syringe) 40 mg SUBCUT Q24H [facility] Last Admin: 04/17/25 08:15 Dose: 40 mg Documented By: KUMAR Folic Acid (Folic Acid 1 Mg Tablet) 1 mg PO DAILY [facility] Last Admin: 04/17/25 08:16 Dose: 1 mg Documented By: KUMAR Gabapentin (Gabapentin 300 Mg Capsule) 300 mg PO TID [facility] Last Admin: 04/17/25 08:16 Dose: 300 mg Documented By: KUMAR Hydromorphone HCl (Hydromorphone Hcl 2 Mg Tablet) 4 mg PO Q3H PRN PRN Reason: Pain, Severe (Pain Scale 7-10) Last Admin: 04/17/25 08:27 Dose: 4 mg Documented By: KUMAR Hydromorphone HCl (Hydromorphone Hcl 1 Mg/Ml Syringe) 1 mg IVPUSH Q4H PRN; Protocol PRN Reason: 30m prior to wound care Last Admin: 04/16/25 08:52 Dose: 1 mg Documented By: ROSI Vancomycin HCl 1,250 mg/ (Sodium Chloride) 250 mls @ 166.667 mls/hr IV Q12H [facility] Last Admin: 04/17/25 12:58 Dose: 166.67 mls/hr Documented By: KUMAR Magnesium Hydroxide (Milk Of Magnesia 30 Ml Oral.Susp) 30 ml PO DAILY PRN PRN Reason: Constipation Melatonin (Melatonin 3 Mg Tablet) 6 mg PO BEDTIME PRN PRN Reason: Insomnia Methadone HCl (Methadone Hcl 20 Mg/2 Ml Oral.Conc) 45 mg PO Q8H [facility] Last Admin: 04/17/25 08:17 Dose: 45 mg Documented By: KUMAR Co-signed By: SHASHANK Multivitamins/Vitamin C (Multivitamin Tablet) 1 tab PO DAILY [facility] Last Admin: 04/17/25 08:16 Dose: 1 tab Documented By: KUMAR Naloxone HCl (Naloxone Hcl 0.4 Mg/Ml Vial) 0.1 mg IVPUSH Q5M PRN PRN Reason: Opiate Reversal Pharmacy Consult (Consult Rx Vancomycin Dosing) 1 each MISCELLANE DAILY PRN PRN Reason: Consult order Stop: 05/09/25 09:00 Senna/Docusate Sodium (Sennosides/Docusate Sodium Tablet) 1 tab PO BEDTIME [facility] Last Admin: 04/16/25 21:19 Dose: Not Given Documented By: GLORIA Non-Admin Reason: Patient Refused Sodium Chloride (0.9 % Sodium Chloride Flush 3 Ml Syringe) 3 ml IVFLUSH QSHIFT [facility] Last Admin: 04/17/25 08:16 Dose: 3 ml Documented By: KUMAR Thiamine HCl (Thiamine Hcl 100 Mg Tablet) 100 mg PO DAILY [facility] Last Admin: 04/17/25 08:16 Dose: 100 mg Documented By: KUMAR Labs 04/17/25 05:24 04/17/25 05:24 Labs: Laboratory Results - last 24 hr 04/16/25 04/16/25 04/17/25 11:02 21:18 05:24 MCV 89.1 MCH 29.2 MCHC 32.8 RDW 16.2 H Plt Count 740 H MPV 9.2 L Immature Gran % (Auto) 2.3 H Neut % (Auto) 64.1 Lymph % (Auto) 25.0 Dane % (Auto) 5.7 Eos % (Auto) 1.6 Baso % (Auto) 1.3 Lymph # (Auto) 2.7 Dane # (Auto) 0.6 Eos # (Auto) 0.2 Baso # (Auto) 0.1 Abs Immat Gran (auto) 0.25 H Absolute Neuts (auto) 7.0 Absolute Nucleated RBC 0.000 Nucleated RBC % (auto) 0.0 Anion Gap 13 Estim Creat Clear Calc 108.5 Estimated GFR > 60 Random Glucose 139 H Calcium 8.4 D Vancomycin Trough 16.1 Blood Type A Positive Antibody Screen NEGATIVE Crossmatch See Detail Assessment and Plan (1) Substance use disorder: Status: Acute (2) IV drug abuse: Status: Acute (3) Opioid use disorder, severe, dependence: Status: Acute (4) Cellulitis: Status: Acute (5) Sepsis: Status: Acute (6) Abscess of right upper arm and forearm: Status: Acute (7) Abscess of left upper arm and forearm: Status: Acute (8) Myositis: Status: Acute (9) Open wound of right upper extremity: Status: Acute (10) Open wound of left upper arm: Status: Acute (11) Fasciitis: Status: Acute Plan 34 yo female with PMH IVDU c/b hx overdose on methadone, xylozene infection L forearm, depression/ anxiety uses xanax and clonidine off the street, presents with swelling of right upper extremity, admitted 04/02-04/06 with sepsis 2/2 right upper extremity abscess and cellulitis with myositis 2/2 IVDU s/p I&D R shoulder - transferred to [facility] for extensive debridement and I&Ds of multiple bilateral UE abscesses - transfered to [facility] for continued management. Sepsis - MRSA+ve Bilateral upper extremity abscesses Bilateral upper extremity cellulitis Bilateral upper extremity fasciitis Bilateral upper extremity myositis IVDU Patient met criteria for sepsis on admission 04/02; noting bandemia 41, lactic acid 2.7 down to 1.8 after IV fluids, tachycardia. ESR and CRP both elevated. CT of the right upper extremity confirms cellulitis with extensive myositis and developing ill-defined abscess at the level of the shoulder with reactive right axillary adenopathy. S/P I&D by general surgery 04/03/25 - no complications No evidence on TTE valvular vegetation. Possible micro seeding. Re-evaluation with CT right and left upper extremities for evidence of infective endocarditis/septic emboli; revealing extensive evidence of abscesses, phlegmon, tenosynoviitis and superimposed fasciitis, myositis and possible tissue necrosis - please see CT report for specifics. Surgery reports that burden of disease is extensive, requiring higher level of care - transferred to [facility] - s/p I&D of RUE and LUE; 04/08/25 - RUE biceps & triceps abscesses - Left AC fossa abscess Currently on: - Vancomycin (end dose 05/07/25) - Clindamycin (end dose 04/15/25) - Post vancomycin, start Doxycyline (05/08-05/22/25) Last negative culture: 04/09/25 Patient has right triple lumen IJ PLAN - Vancomycin (end dose 05/07/25) - Clindamycin (end dose 04/15/25) - Post vancomycin, start Doxycyline (05/08-05/22/25) - wound care consultation placed - general surgery consultation placed - Dilaudid 4 mg q.3h hourly - Dilaudid 1 mg q.1h hourly p.r.n. ; 30 minutes prior to wound cleaning - Packing changes to right upper extremity and right chest wall with to dry saline moistured Kerlix gauze, cover with Kerlix wrap followed by Osbaldo wraps - Left upper extremity has a retained needles from patient's injections prior to admission, DO NOT PACK THIS WOUND WITH FINGERS MOST USE INSTRUMENTS, either Luda forcepts etc Acute blood loss anemia S/p hematoma w/ clot evacuation 04/08/2025 Anemia s/p 1UPRBC transfusion at [facility]. Hemoglobin decreased to 6.7 mg/dL today. Type and screen and blood consent forms were signed 2 unit PRBC was administered with the patient without complication Repeat CBC Mild hyponatremia - resolved Hypokalemia - Trend BMP daily GERD - Protonix b.i.d. - Monitor H&H Constipation - Milk of magnesia UTE - heroin/fentanyl - cocaine Patient normally on methadone 130 mg per day, confirmed with Addiction medicine services Continue Methadone Addiction medicine consultation for reccs re; pain management outpatient setting Patient has been found to be using illicit substances during hospital stay. These items have been confiscated Discussed with the patient policy implementation: - no visitor policy currently in effect - items dropped off from family members/friends/visitors need to be searched by security - continue video monitoring in room - addiction medicine consultation [employer] - VTE: Enoxaparin - CODE STATUS: Full code - DIET: Regular Total time managing care of this patient today: 45 minutes. Quality Stroke Does the patient have a stroke diagnosis?: No VTE Prior VTE?: No VTE Risk Level:: Medical - moderate - high VTE Device Contraindication: Treatment Not Indicated VTE Drug Contraindication: N/A - Med Ordered
[2025-04-17 15:12] LABS: MANUAL DIFF FLAG NO
[2025-04-17 15:14] LABS: Hematocrit 28.8 % (37.0-47.0); Hemoglobin 9.5 g/dl (12.0-16.0); Imm Gran Abs Auto 0.19 X10*3/uL (0.00-0.03); Imm Gran Pct Auto 1.9 % (0.0-0.4); Lymphocytes Absolute Auto 2.5 X10*3/uL (1.2-4.9); Mean Corpuscular HGB Conc 33.0 g/dl (31.0-35.0); Mean Corpuscular Hemoglobin 29.1 pg (27.0-33.0); Mean Corpuscular Volume 88.3 fL (80.0-98.0); NRBC Abs Auto 0.000 X10*3/uL (0.0-0.012); NRBC Pct Auto 0.0 /100WBC (0.0-0.2); Platelet Count 681 X10*3/uL (160-400); Red Blood Count 3.26 X10*6/uL (4.20-5.50); White Blood Count 9.9 X10*3/uL (4.8-10.8)
--- NOTE | 2025-04-17 15:41 | P.PNADD_ITS ---
Subjective Subjective Date of Service: 04/17/25 Reason For Visit: Medical Interim History: Patient seen in follow up Ad[place] [facility] [place], when she was transferred to [facility] for surgical management of multiple abscesses in bilateral upper extremities. Readmitted [place] [facility] [place] 04[place] for ongoing wound care and IV abx. Prior to transfer, methadone dose was 130mg QD. While at [place], methadone dose was split into 45mg TID. Documentation sent with patient reviewed, and does not mention methadone change. Patient reports that she believes it was due to the high amount of pain medications required after surgical interventions, and possibly to help manage pain. She reports feeling okay overall. Pain medication regimen in place, and PRN prior to wound care. Appetite is okay. Sleep is not great . Discussed combining AM dose with afternoon dose, in preparation for transfer to [facility]. Patient agreeable. Review of Systems Acute medical concerns: Yes Review of Systems Constitutional: Reports as per [facility] Mental Status Exam Mental Status Exam Patient Appearance: Appropriate Level of Consciousness: Awake, Appropriate and Alert Patient Behavior: Appropriate, Talkative and Cooperative Affect Description: Calm Speech Pattern: Clear Thought Process: Intact Thought Content: positive for Intact Judgement: Good Diagnostics Vital Signs (24Hr): Vital Signs - 24 hr 04/16/25 15:52 04/16/25 15:55 04/16/25 17:42 Temperature 98.3 F 98.5 F Pulse Rate 81 71 Respiratory Rate 20 20 Blood Pressure 144/85 H 155/78 H Pulse Oximetry 96 Oxygen Delivery Method Room Air 04/16/25 17:56 04/16/25 20:00 04/16/25 20:30 Temperature 98.1 F 98.0 F 98.9 F Pulse Rate 74 81 78 Respiratory Rate 20 18 20 Blood Pressure 156/78 H 152/68 H Pulse Oximetry Oxygen Delivery Method 04/16/25 20:59 04/17/25 00:00 04/17/25 04:00 Temperature 98.5 F 97.2 F Pulse Rate 84 74 Respiratory Rate 18 16 Blood Pressure 148/82 H 149/84 H 165/75 H Pulse Oximetry 95 96 Oxygen Delivery Method Room Air Room Air 04/17/25 08:00 04/17/25 08:16 04/17/25 12:00 Temperature 97.6 F 98.2 F Pulse Rate 82 74 Respiratory Rate 18 16 Blood Pressure 165/96 H 165/96 H 156/82 H Pulse Oximetry 97 96 Oxygen Delivery Method Room Air Room Air Labs 04/17/25 15:07 04/17/25 05:24 Labs: Laboratory Results - last 48 hr 04/15/25 04/16/25 04/16/25 15:56 05:56 05:58 WBC 13.8 H RBC 2.57 L Hgb 7.3 L Hct 22.9 L MCV 89.1 MCH 28.4 MCHC 31.9 RDW 18.0 H Plt Count 818 H MPV 9.1 L Immature Gran % (Auto) 2.6 H Neut % (Auto) 69.4 Lymph % (Auto) 19.9 L Rooks % (Auto) 4.9 Eos % (Auto) 2.4 Baso % (Auto) 0.8 Lymph # (Auto) 2.8 Rooks # (Auto) 0.7 Eos # (Auto) 0.3 Baso # (Auto) 0.1 Abs Immat Gran (auto) 0.36 H Absolute Neuts (auto) 9.6 H Absolute Nucleated RBC 0.000 Nucleated RBC % (auto) 0.0 Smear Path Review Hold Purple Top SEE NOTE Sodium 140 Potassium 3.4 Chloride 106 Carbon Dioxide 28 Anion Gap 9 L BUN 11 Creatinine 0.66 0.59 Estim Creat Clear Calc 105.2 117.7 Estimated GFR > 60 > 60 Random Glucose 122 H Calcium 7.8 L Total Bilirubin 0.1 AST 21 ALT 9 Alkaline Phosphatase 70 Total Protein 5.4 L Albumin 2.5 L Vancomycin Trough Blood Type Antibody Screen Crossmatch 04/16/25 04/16/25 04/16/25 07:59 11:02 21:18 WBC 9.8 RBC 2.42 L Hgb 6.6 L* Hct 21.5 L MCV 88.8 MCH 27.3 MCHC 30.7 L RDW 18.1 H Plt Count 746 H MPV 8.8 L Immature Gran % (Auto) 2.8 H Neut % (Auto) 65.4 Lymph % (Auto) 23.4 Rooks % (Auto) 5.7 Eos % (Auto) 1.8 Baso % (Auto) 0.9 Lymph # (Auto) 2.3 Rooks # (Auto) 0.6 Eos # (Auto) 0.2 Baso # (Auto) 0.1 Abs Immat Gran (auto) 0.27 H Absolute Neuts (auto) 6.4 Absolute Nucleated RBC 0.000 Nucleated RBC % (auto) 0.0 Smear Path Review SEE NOTE Hold Purple Top Sodium 140 Potassium 3.7 Chloride 107 Carbon Dioxide 29 Anion Gap 8 L BUN 11 Creatinine 0.60 Estim Creat Clear Calc 115.8 Estimated GFR > 60 Random Glucose 108 Calcium 7.9 L Total Bilirubin 0.2 AST 29 ALT 9 Alkaline Phosphatase 61 Total Protein 5.2 L Albumin 2.5 L Vancomycin Trough 16.1 Blood Type A Positive Antibody Screen NEGATIVE Crossmatch See Detail 04/17/25 04/17/25 05:24 15:07 WBC 11.0 H 9.9 RBC 3.39 L D 3.26 L Hgb 9.9 L D 9.5 L Hct 30.2 L D 28.8 L MCV 89.1 88.3 MCH 29.2 29.1 MCHC 32.8 33.0 RDW 16.2 H 16.4 H Plt Count 740 H 681 H MPV 9.2 L 8.9 L Immature Gran % (Auto) 2.3 H 1.9 H Neut % (Auto) 64.1 63.9 Lymph % (Auto) 25.0 24.8 Rooks % (Auto) 5.7 6.9 Eos % (Auto) 1.6 1.2 Baso % (Auto) 1.3 1.3 Lymph # (Auto) 2.7 2.5 Rooks # (Auto) 0.6 0.7 Eos # (Auto) 0.2 0.1 Baso # (Auto) 0.1 0.1 Abs Immat Gran (auto) 0.25 H 0.19 H Absolute Neuts (auto) 7.0 6.3 Absolute Nucleated RBC 0.000 0.000 Nucleated RBC % (auto) 0.0 0.0 Smear Path Review Hold Purple Top Sodium 140 Potassium 3.7 Chloride 103 Carbon Dioxide 28 Anion Gap 13 BUN 14 Creatinine 0.64 Estim Creat Clear Calc 108.5 Estimated GFR > 60 Random Glucose 139 H Calcium 8.4 D Total Bilirubin AST ALT Alkaline Phosphatase Total Protein Albumin Vancomycin Trough Blood Type Antibody Screen Crossmatch Imaging Radiology Impressions: ITS Impressions Elbow X-Ray 04/15/25 11:25 IMPRESSION: Medial soft tissue swelling. No metallic foreign body. Electronically signed by: Jose Padilla MD 04/15/2025 12:04 PM EDT RP Medications Medications Current Medications Acetaminophen (Acetaminophen 325 Mg Tablet) 650 mg PO Q6H PRN PRN Reason: Pain, Mild 1-3,fever,headache Last Admin: 04/15/25 21:37 Dose: 650 mg Albuterol Sulfate (Albuterol Sulfate (0.083%) 2.5 Mg/3 Ml Vial.Neb) 2.5 mg INHALE Q4H PRN PRN Reason: Wheezing Baclofen (Baclofen 10 Mg Tablet) 10 mg PO TID [facility] Last Admin: 04/17/25 08:16 Dose: 10 mg Bisacodyl (Bisacodyl 10 Mg Supp.Rect) 10 mg [place] BEDTIME PRN PRN Reason: Constipation Calcium Carbonate (Calcium Carbonate 750 Mg Tab.Chew) 750 mg PO Q4H PRN PRN Reason: Heartburn Clonidine HCl (Clonidine Hcl 0.1 Mg Tablet) 0.1 mg PO BID [facility]; Protocol Last Admin: 04/17/25 08:16 Dose: 0.1 mg Enoxaparin Sodium (Enoxaparin Sodium 40 Mg/0.4 Ml Syringe) 40 mg SUBCUT Q24H [facility] Last Admin: 04/17/25 08:15 Dose: 40 mg Folic Acid (Folic Acid 1 Mg Tablet) 1 mg PO DAILY [facility] Last Admin: 04/17/25 08:16 Dose: 1 mg Gabapentin (Gabapentin 300 Mg Capsule) 300 mg PO TID [facility] Last Admin: 04/17/25 08:16 Dose: 300 mg Hydromorphone HCl (Hydromorphone Hcl 2 Mg Tablet) 4 mg PO Q3H PRN PRN Reason: Pain, Severe (Pain Scale 7-10) Last Admin: 04/17/25 08:27 Dose: 4 mg Hydromorphone HCl (Hydromorphone Hcl 1 Mg/Ml Syringe) 1 mg IVPUSH Q4H PRN; Protocol PRN Reason: 30m prior to wound care Last Admin: 04/16/25 08:52 Dose: 1 mg Vancomycin HCl 1,250 mg/ (Sodium Chloride) 250 mls @ 166.667 mls/hr IV Q12H [facility] Last Infusion: 04/17/25 14:35 Dose: Infused Magnesium Hydroxide (Milk Of Magnesia 30 Ml Oral.Susp) 30 ml PO DAILY PRN PRN Reason: Constipation Melatonin (Melatonin 3 Mg Tablet) 6 mg PO BEDTIME PRN PRN Reason: Insomnia Methadone HCl (Methadone Hcl 20 Mg/2 Ml Oral.Conc) 45 mg PO Q8H [facility] Last Admin: 04/17/25 08:17 Dose: 45 mg Multivitamins/Vitamin C (Multivitamin Tablet) 1 tab PO DAILY [facility] Last Admin: 04/17/25 08:16 Dose: 1 tab Naloxone HCl (Naloxone Hcl 0.4 Mg/Ml Vial) 0.1 mg IVPUSH Q5M PRN PRN Reason: Opiate Reversal Pharmacy Consult (Consult Rx Vancomycin Dosing) 1 each MISCELLANE DAILY PRN PRN Reason: Consult order Stop: 05/09/25 09:00 Senna/Docusate Sodium (Sennosides/Docusate Sodium Tablet) 1 tab PO BEDTIME [facility] Last Admin: 04/16/25 21:19 Dose: Not Given Sodium Chloride (0.9 % Sodium Chloride Flush 3 Ml Syringe) 3 ml IVFLUSH QSHIFT [facility] Last Admin: 04/17/25 08:16 Dose: 3 ml Thiamine HCl (Thiamine Hcl 100 Mg Tablet) 100 mg PO DAILY [facility] Last Admin: 04/17/25 08:16 Dose: 100 mg Allergies Allergies Allergy/AdvReac Type Severity Reaction Status Date / Time No Known Allergies Allergy Verified 04/02/25 13:13 Assessment & Plan Assessment & Plan (1) Opioid use disorder, severe, dependence: Status: Acute Code(s): F11.20 - Opioid dependence, uncomplicated Assessment and Plan: * In AM will adjust methadone dosing to 90mg in AM and 45mg in evening * continue pain medications as needed Total time managing care of this patient today __30__ minutes.
[2025-04-18] VITALS (7 sets, daily range): BP systolic 140–153; BP diastolic 68–85; PULSE 60–80; RESP 14–20; TEMP 36.1–36.7; O2SAT 93–97
[2025-04-18] MEDS: 0.9 % Sodium Chloride Flush 3 ML SYRINGE IVFLUSH ×3 (00:35→15:59)
--- NOTE | 2025-04-18 04:40 | PC.NURSE ---
Patient calm and cooperative this shift, alert and oriented x4. Medicated for pain per mar. Wound vac to right upper arm and right chest, suction maintained 125 mmHg , serosanguineous drainage in wound vac canister. No air leaks noted this shift.
[2025-04-18 06:11] LABS: MANUAL DIFF FLAG NO
[2025-04-18 06:14] LABS: Hematocrit 30.5 % (37.0-47.0); Hemoglobin 9.7 g/dl (12.0-16.0); Imm Gran Abs Auto 0.22 X10*3/uL (0.00-0.03); Imm Gran Pct Auto 2.3 % (0.0-0.4); Lymphocytes Absolute Auto 2.9 X10*3/uL (1.2-4.9); Mean Corpuscular HGB Conc 31.8 g/dl (31.0-35.0); Mean Corpuscular Hemoglobin 28.5 pg (27.0-33.0); Mean Corpuscular Volume 89.7 fL (80.0-98.0); NRBC Abs Auto 0.000 X10*3/uL (0.0-0.012); NRBC Pct Auto 0.0 /100WBC (0.0-0.2); Platelet Count 678 X10*3/uL (160-400); Red Blood Count 3.40 X10*6/uL (4.20-5.50); White Blood Count 9.5 X10*3/uL (4.8-10.8)
[2025-04-18 06:25] LABS: Anion Gap 13 (12-20); Blood Urea Nitrogen 19 mg/dL (9-16); Calcium 8.5 mg/dL (8.4-10.2); Carbon Dioxide 26 mmol/L (22-29); Chloride 102 mmol/L (96-108); Creatinine Clr Calc Pharmacy 115.8; Estimated Glomerular Filt Rate > 60; Potassium 4.1 mmol/L (3.3-5.1); Sodium 137 mmol/L (135-145)
[2025-04-18] MEDS: diazePAM 10 MG/2 ML CARTRIDGE 5 MG IVPUSH (08:16)
[2025-04-18] MEDS: methADONE HCl 20 MG/2 ML ORAL.CONC 90 MG PO (10:39)
[2025-04-18] MEDS: Lidocaine HCl 2 % 20 ML VIAL INFILTRATI (10:53)
--- NOTE | 2025-04-18 11:48 | P.PNGS_ITS ---
Subjective Subjective Date of Service: 04/18/25 <Berta Be PA-C - Last Filed: 04/18/25 11:54> 04/18/25 <Galo Rosenberg MD - Last Filed: 04/18/25 14:37> Interval history: No new complaints. Remains very anxious regarding dressing change. Wound vac with sanguineous/exudative drainage. <Berta Be PA-C - Last Filed: 04/18/25 11:54> Physical Exam 2 Vital Signs: Vital Signs: Last Vital Signs Temp 97.1 F 04/18/25 07:49 Pulse 75 04/18/25 07:49 Resp 15 04/18/25 07:49 BP 146/77 H 04/18/25 10:40 Pulse Ox 97 04/18/25 07:49 O2 Del Method Room Air 04/18/25 07:49 <Berta Be PA-C - Last Filed: 04/18/25 11:54> Const: General: alert and anxious <Berta Be PA-C - Last Filed: 04/18/25 11:54> Orientation/consciousness: patient oriented x3 <Berta Be PA-C - Last Filed: 04/18/25 11:54> Resp: Effort & Inspection: normal respiratory effort <Berta Be PA-C - Last Filed: 04/18/25 11:54> Skin: Other: please see registered respiratory technician note for updated pictures right anteriomedial and posterior upper extremity and right chest wounds all around 90% covered with granulation tissue, no necrotic tissue b/l upper extremity edema improved <Berta Be PA-C - Last Filed: 04/18/25 11:54> Neuro: General: patient oriented x3 and moves all extremities <CONNER Scruggs Last Filed: 04/18/25 11:54> Objective Data Active Medications Acetaminophen (Acetaminophen 325 Mg Tablet) 650 mg PO Q6H PRN PRN Reason: Pain, Mild 1-3,fever,headache Last Admin: 04/15/25 21:37 Dose: 650 mg Documented By: RAFAEL Albuterol Sulfate (Albuterol Sulfate (0.083%) 2.5 Mg/3 Ml Vial.Neb) 2.5 mg INHALE Q4H PRN PRN Reason: Wheezing Baclofen (Baclofen 10 Mg Tablet) 10 mg PO TID [facility] Last Admin: 04/18/25 10:40 Dose: 10 mg Documented By: KUMAR Bisacodyl (Bisacodyl 10 Mg Supp.Rect) 10 mg TX BEDTIME PRN PRN Reason: Constipation Calcium Carbonate (Calcium Carbonate 750 Mg Tab.Chew) 750 mg PO Q4H PRN PRN Reason: Heartburn Clonidine HCl (Clonidine Hcl 0.1 Mg Tablet) 0.1 mg PO BID [facility]; Protocol Last Admin: 04/18/25 10:40 Dose: 0.1 mg Documented By: KUMAR Enoxaparin Sodium (Enoxaparin Sodium 40 Mg/0.4 Ml Syringe) 40 mg SUBCUT Q24H [facility] Last Admin: 04/18/25 10:42 Dose: 40 mg Documented By: KUMAR Folic Acid (Folic Acid 1 Mg Tablet) 1 mg PO DAILY [facility] Last Admin: 04/18/25 10:40 Dose: 1 mg Documented By: KUMAR Gabapentin (Gabapentin 300 Mg Capsule) 300 mg PO TID [facility] Last Admin: 04/18/25 10:40 Dose: 300 mg Documented By: KUMAR Hydromorphone HCl (Hydromorphone Hcl 2 Mg Tablet) 4 mg PO Q3H PRN PRN Reason: Pain, Severe (Pain Scale 7-10) Last Admin: 04/18/25 00:45 Dose: 4 mg Documented By: DORIS Hydromorphone HCl (Hydromorphone Hcl 1 Mg/Ml Syringe) 1 mg IVPUSH Q4H PRN; Protocol PRN Reason: 30m prior to wound care Last Admin: 04/18/25 08:16 Dose: 1 mg Documented By: KUMAR Vancomycin HCl 1,250 mg/ (Sodium Chloride) 250 mls @ 166.667 mls/hr IV Q12H [facility] Last Infusion: 04/18/25 02:05 Dose: Infused Documented By: DORIS Magnesium Hydroxide (Milk Of Magnesia 30 Ml Oral.Susp) 30 ml PO DAILY PRN PRN Reason: Constipation Melatonin (Melatonin 3 Mg Tablet) 6 mg PO BEDTIME PRN PRN Reason: Insomnia Methadone HCl (Methadone Hcl 20 Mg/2 Ml Oral.Conc) 90 mg PO DAILY@0800 [facility] Last Admin: 04/18/25 10:39 Dose: 90 mg Documented By: KUMAR Co-signed By: BRIDGER Comments: given late d/t pt needing wound vac changed and receiving IV narcotics first Methadone HCl (Methadone Hcl 20 Mg/2 Ml Oral.Conc) 45 mg PO DAILY@2100 [facility] Last Admin: 04/17/25 21:17 Dose: 45 mg Documented By: DORIS Co-signed By: JOAQUINA Multivitamins/Vitamin C (Multivitamin Tablet) 1 tab PO DAILY [facility] Last Admin: 04/18/25 10:40 Dose: 1 tab Documented By: KUMAR Naloxone HCl (Naloxone Hcl 0.4 Mg/Ml Vial) 0.1 mg IVPUSH Q5M PRN PRN Reason: Opiate Reversal Pharmacy Consult (Consult Rx Vancomycin Dosing) 1 each MISCELLANE DAILY PRN PRN Reason: Consult order Stop: 05/09/25 09:00 Senna/Docusate Sodium (Sennosides/Docusate Sodium Tablet) 1 tab PO BEDTIME [facility] Last Admin: 04/17/25 21:21 Dose: Not Given Documented By: DORIS Non-Admin Reason: refused; reporting loose stools Sodium Chloride (0.9 % Sodium Chloride Flush 3 Ml Syringe) 3 ml IVFLUSH QSHIFT [facility] Last Admin: 04/18/25 08:22 Dose: 3 ml Documented By: KUMAR Thiamine HCl (Thiamine Hcl 100 Mg Tablet) 100 mg PO DAILY [facility] Last Admin: 04/18/25 10:40 Dose: 100 mg Documented By: KUMAR <Berta Be PA-C - Last Filed: 04/18/25 11:54> Labs CBC & Chem 7: 04/18/25 05:49 04/18/25 05:50 <Berta Be PA-C - Last Filed: 04/18/25 11:54> Labs: Laboratory Results - last 24 hr 04/17/25 04/18/25 04/18/25 15:07 05:49 05:50 MCV 88.3 89.7 MCH 29.1 28.5 MCHC 33.0 31.8 RDW 16.4 H 16.3 H Plt Count 681 H 678 H MPV 8.9 L 9.4 Immature Gran % (Auto) 1.9 H 2.3 H Neut % (Auto) 63.9 56.3 Lymph % (Auto) 24.8 30.6 [place] % (Auto) 6.9 7.8 Eos % (Auto) 1.2 1.7 Baso % (Auto) 1.3 1.3 Lymph # (Auto) 2.5 2.9 [place] # (Auto) 0.7 0.7 Eos # (Auto) 0.1 0.2 Baso # (Auto) 0.1 0.1 Abs Immat Gran (auto) 0.19 H 0.22 H Absolute Neuts (auto) 6.3 5.3 Absolute Nucleated RBC 0.000 0.000 Nucleated RBC % (auto) 0.0 0.0 Anion Gap 13 Estim Creat Clear Calc 115.8 Estimated GFR > 60 Random Glucose 104 Calcium 8.5 <Berta Be PA-C - Last Filed: 04/18/25 11:54> Procedures Date of Service Date of Service: 04/18/25 <Berta Be PA-C - Last Filed: 04/18/25 11:54> 04/18/25 <Galo Rosenberg MD - Last Filed: 04/18/25 14:37> Progress Note: A&P Assessment and plan (1) Open wound of right upper extremity: Status: Acute <Berta Be PA-C - Last Filed: 04/18/25 11:54> Assessment and Plan: Dressings changed today All wounds appear clean and granulating well Continue same wound care I was present for part of the dressing change Agree with TAMI Be <Galo Rosenberg MD - Last Filed: 04/18/25 14:37> Assessment and Plan: Wounds overall responded very well to wound vac dressing change and remain clean and granulating well. She unfortunately had difficulty tolerating the dressing change and had significant pain and even had a short vasovagal episode but recovered quickly. Will therefore plan on wound vac dressing change under sedation in the OR on Monday. Please keep NPO after midnight for 04/21 dressing change. <Berta Be PA-C - Last Filed: 04/18/25 11:54> Time Spent With Patient Time: Total time managing care of this patient today ____ minutes. <Berta Be PA-C - Last Filed: 04/18/25 11:54> Quality Stroke Does the patient have a stroke diagnosis?: No <Berta Be PA-C - Last Filed: 04/18/25 11:54> VTE Prior VTE?: No <Berta Be PA-C - Last Filed: 04/18/25 11:54> VTE Risk Level:: Medical - moderate - high <Berta Be PA-C - Last Filed: 04/18/25 11:54> VTE Device Contraindication: Treatment Not Indicated <Berta Be PA-C - Last Filed: 04/18/25 11:54> VTE Drug Contraindication: N/A - Med Ordered <Berta Be PA-C - Last Filed: 04/18/25 11:54>
--- NOTE | 2025-04-18 12:09 | HO.WOUND ---
Addendum entered by Christelle Resendiz RN 04/18/25 14:54: Returned to patient to check NPWT, vac is functioning, no audible leak noted, no alarm sounding. patient is sound asleep, did not wake to further assess dressing sites. Tegaderm and extra dressing kit left at bedside for potential leaks. Original Note: Wound Care: Follow up 34yr old?female admitted to [facility] on 04/14/25 21:20 - See progress notes and H&P for detailed history.? Patient seen today for left AC dressing change and woundvac change with Berta GARRETT- patient was agreeable to assessment and wound vac application and photo documentation.?Patient recalls our role in her care. She was educated on what to expect and the benefits and purpose of wound vac change. Patient was premedicated by direct care RN, see MAR for details. She reports continued left arm increased drainage. Today when removed the foam dressing was saturated with serous drainage. Packing removed and wound bed remains red pink and viable - no observed slough noted. No erythema to periwound noted. Edema to bilateral hands improved. Recommend changing left arm to hydrofera blue packing (absorbs and transfers exudate to secondary dressing, provides broad spectrum antibacterial protection) and changing secondary dressing as needed. Left AC - Cleanse with NS moist gauze, Apply skin prep allow to dry. Lightly pack hydrofera blue with Qtip DO NOT USE FINGERS due to concerns for sharps within wound bed. Cover with Foam dressing followed by ABD pad and Elastic netting. Change daily and secondary dressing PRN as needed for saturation. Wound vac dressing assessed - appears to maintain suction at time no audible leak noted. Patient reports increased use of her right arm and tolerable pain. She reports burning sensation at times and a pulling on her right chest wall - tolerable given current pain medication regimen. Patient and direct care team note the overnight RN reinforced with the NPWT dressing with tegaderms ultimately achieving suction without leak. There was dark red fluid in the canister and clear light pink noted in tubing - no concern for active bleeding at this time. Inpatient wound care and general surgery will continue to follow and treat. Left AC 04/16/25 Left AC 04/18/25 The left forearm Anticubital wound appears smaller measuring 1.5cm x 1cm with an unprobed depth but appears greater than 1cm. Moist pink wound bed no induration no erythema and no fluctance noted. Topical dressing changed to hydrofera blue and foam dressing due to increased serous drainage. To be changed daily at this time will continue to assess for ability to push out dressing changes. Right Chest 04/16/25 Right chest 04/18/25 Right Upper Medial Bicep Arm 04/16/25 Right Medial Arm not pictured on 04/18/25 however, moist beefy red granulation tissue noted over muscle. no necrotic tissue. Right Posterior Upper Arm 04/16/25 Right posterior- 04/18/25 Right Chest, Bicep and posterior upper arm treated with NPWT (Negative Pressure Wound Therapy), second application today. NPWT Suction Settings: 125mmHg - Setting Type: Continuous Premedication provided by direct care nurse see JOSETTE. - medication also provided mid-dressing change - see JOSETTE Wound bed: Chest is noted for red granulation tissue - full thickness depth noted - moderate to copious amount of sero sang drainage - no odor noted. Right Upper Bicep Arm - exposed muscle beefy red moist tissue - layer of red granulation tissue noted Right Posterior Upper Arm - Exposed muscle beefy red moist tissue with exposed tendon - now nearly covered- moist granulation tissue noted All wounds are viable and clean. The Posterior site does have a small 1.5cm x1cm superior to the open incision - this was treated with hydrofera blue packing and a foam dressing. All sites were cleansed and irrigated with NS, Pat dry. NPWT Dressing Application: 1 piece of black foam was removed from each wound (total 3 pieces), in addition to cuticerin contact layer removed from right posterior arm wound. 1 black foam cut to size and applied to individual wound beds (one at chest not packed into tunnel just applied to wound bed, one piece applied to bicep area and one to posterior site), Right Axilla skin and wound edge protected with Paste Strip outlining edge.? Skin protected with Drape for Bridge from posterior site to bicep and then bicep to chest. Dressing completed and no leak noted.? Suction set to 125mmHg - patient denies pain and or burning sensation after a period of time to relax and get situated. Patient was noted to be moving both extremities better than prior to application of wound vac. At the time of leaving patients room she reported the wound vac in place felt so much better and overall she had less pain. She reported she felt the application was very difficult for her but the feeling after is improved. 04/16/25 04/18/25 vac front 04/18/25 vac back Patient did not tolerated wound vac application well, there were several periods of time when breaks were offered, she was crying, overwhelmed with anxiety and panic at times. She was distracted with talking and use of her phone, her mother was on the phone at times. The wound vac application took a significant amount of time close to 2 hours in entirety. Plan is to change , W schedule - next change will be Monday - per surgery plan for OR with sedation. Nursing Considerations: Wound vac should be on and set to suction at all times - if leak occurs reinforce with drape left at bedside or tegaderm.? If unable to obtain seal page covering doctor from Orthopedic Service Team.? If not able to obtain suction for 2 consecutive hours remove and apply wet to dry dressing - notify providers. If bright red blood is noted in Vac canister stop wound vac and page doctor immediately. InPatient wound care team will continue to follow patient while inpatient at this time.
--- NOTE | 2025-04-18 12:29 | P.CONAN_ITS ---
Documented by User: Winnie Benito NP 04/18/25 12:43 HPI - Anesthesia Eval Consult details Narrative: 34 yr old female for right arm & chest wound vac s/p right elbow infection tissue debridement with GA, LMA 4 04/05/25; s/p multiple procedures at [facility] for b/l upper extremities IVDU: on methadone Recent use of xylazine PMFSH Active Problems Active Problems: All Active Problems Open wound of left upper arm (Acute) Open wound of right upper extremity (Acute) Fasciitis (Acute) Abscess of left upper arm and forearm (Acute) Anemia (Acute) Opioid use disorder, severe, dependence (Acute) Abscess of right upper arm and forearm (Acute) GERD (gastroesophageal reflux disease) (Acute) Depression (Acute) Anxiety (Acute) IV drug abuse (Acute) Substance use disorder (Acute) Sepsis (Acute) Myositis (Acute) Cellulitis (Acute) Past Medical History Medical History Toxic effect of xylazine History of drug overdose Depression Anxiety IV drug abuse Substance use disorder Family History Family history of problems with anesthesia: No Surgical History Surgical History History of tonsillectomy and adenoidectomy Hx of section History of Problems with Anesthesia: No Social History Social History Household Members: Significant Other Housing: Apartment Do you presently have visiting nurse or other home services: No Comment: stay with patient at bedside commode Patient Tobacco Use Status: Current everyday Tobacco user Tobacco use type: Cigarette Cigarettes Per Day: 5 e-Cigarette/Vaping Use: Currently Using Substance Use Type: Crack/Cocaine, Heroin and Marijuana service: No Meds Allergies Allergy/AdvReac Type Severity Reaction Status Date / Time No Known Allergies Allergy Verified 04/02/25 13:13 Active Medications: Current Medications Acetaminophen (Acetaminophen 325 Mg Tablet) 650 mg PO Q6H PRN PRN Reason: Pain, Mild 1-3,fever,headache Last Admin: 04/15/25 21:37 Dose: 650 mg Albuterol Sulfate (Albuterol Sulfate (0.083%) 2.5 Mg/3 Ml Vial.Neb) 2.5 mg INHALE Q4H PRN PRN Reason: Wheezing Baclofen (Baclofen 10 Mg Tablet) 10 mg PO TID [facility] Last Admin: 04/18/25 10:40 Dose: 10 mg Bisacodyl (Bisacodyl 10 Mg Supp.Rect) 10 mg PA BEDTIME PRN PRN Reason: Constipation Calcium Carbonate (Calcium Carbonate 750 Mg Tab.Chew) 750 mg PO Q4H PRN PRN Reason: Heartburn Clonidine HCl (Clonidine Hcl 0.1 Mg Tablet) 0.1 mg PO BID [facility]; Protocol Last Admin: 04/18/25 10:40 Dose: 0.1 mg Enoxaparin Sodium (Enoxaparin Sodium 40 Mg/0.4 Ml Syringe) 40 mg SUBCUT Q24H [facility] Last Admin: 04/18/25 10:42 Dose: 40 mg Folic Acid (Folic Acid 1 Mg Tablet) 1 mg PO DAILY [facility] Last Admin: 04/18/25 10:40 Dose: 1 mg Gabapentin (Gabapentin 300 Mg Capsule) 300 mg PO TID [facility] Last Admin: 04/18/25 10:40 Dose: 300 mg Hydromorphone HCl (Hydromorphone Hcl 2 Mg Tablet) 4 mg PO Q3H PRN PRN Reason: Pain, Severe (Pain Scale 7-10) Last Admin: 04/18/25 00:45 Dose: 4 mg Hydromorphone HCl (Hydromorphone Hcl 1 Mg/Ml Syringe) 1 mg IVPUSH Q4H PRN; Protocol PRN Reason: 30m prior to wound care Last Admin: 04/18/25 08:16 Dose: 1 mg Vancomycin HCl 1,250 mg/ (Sodium Chloride) 250 mls @ 166.667 mls/hr IV Q12H [facility] Last Infusion: 04/18/25 02:05 Dose: Infused Magnesium Hydroxide (Milk Of Magnesia 30 Ml Oral.Susp) 30 ml PO DAILY PRN PRN Reason: Constipation Melatonin (Melatonin 3 Mg Tablet) 6 mg PO BEDTIME PRN PRN Reason: Insomnia Methadone HCl (Methadone Hcl 20 Mg/2 Ml Oral.Conc) 90 mg PO DAILY@0800 [facility] Last Admin: 04/18/25 10:39 Dose: 90 mg Methadone HCl (Methadone Hcl 20 Mg/2 Ml Oral.Conc) 45 mg PO DAILY@2100 [facility] Last Admin: 04/17/25 21:17 Dose: 45 mg Multivitamins/Vitamin C (Multivitamin Tablet) 1 tab PO DAILY [facility] Last Admin: 04/18/25 10:40 Dose: 1 tab Naloxone HCl (Naloxone Hcl 0.4 Mg/Ml Vial) 0.1 mg IVPUSH Q5M PRN PRN Reason: Opiate Reversal Pharmacy Consult (Consult Rx Vancomycin Dosing) 1 each MISCELLANE DAILY PRN PRN Reason: Consult order Stop: 05/09/25 09:00 Senna/Docusate Sodium (Sennosides/Docusate Sodium Tablet) 1 tab PO BEDTIME [facility] Last Admin: 04/17/25 21:21 Dose: Not Given Sodium Chloride (0.9 % Sodium Chloride Flush 3 Ml Syringe) 3 ml IVFLUSH QSHIFT [facility] Last Admin: 04/18/25 08:22 Dose: 3 ml Thiamine HCl (Thiamine Hcl 100 Mg Tablet) 100 mg PO DAILY [facility] Last Admin: 04/18/25 10:40 Dose: 100 mg Home Medications ?Medication ?Instructions ?Recorded ?Confirmed ?Last Taken ?Type methadone 10 mg/mL oral 130 mg PO DAILY 04/03/2508/2704/02/25 11:46 History concentrate (Methadone Intensol) dextroamphetamine-amphetamine 20 35 mg PO DAILY 04/15/25 Unknown History mg tablet (Adderall) dextroamphetamine-amphetamine 5 mg 5 mg PO DAILY 04/1504/15/25 Unknown History tablet (Adderall) doxycycline hyclate 100 mg tablet 100 mg PO BID 04/15/25 Unknown History methadone 5 mg tablet 45 mg PO Q8H 04/15/25 Unkno wn History Exam Height,Weight and Vital Signs: Height 5 ft 2.2 in Weight 66.3 kg Last Vital Signs Temp 98.0 F 04/18/25 12:00 Pulse 60 04/18/25 12:00 Resp 14 04/18/25 12:00 BP 153/81 H 04/18/25 12:00 Pulse Ox 93 04/18/25 12:00 O2 Del Method Room Air 04/18/25 12:00 Pertinent Lab Results Pertinent Lab Results: Laboratory Tests 04/14/25 04/15/25 04/15/25 23:10 09:22 10:37 WBC 10.7 RBC 2.53 L D Hgb 7.1 L D Hct 22.2 L MCV 87.7 MCH 28.1 MCHC 32.0 RDW 18.0 H Plt Count 746 H D MPV 8.9 L Immature Gran % (Auto) 5.0 H Neut % (Auto) 54.0 Lymph % (Auto) 30.6 [place] % (Auto) 5.9 Eos % (Auto) 3.5 Baso % (Auto) 1.0 Lymph # (Auto) 3.3 [place] # (Auto) 0.6 Eos # (Auto) 0.4 Baso # (Auto) 0.1 Abs Immat Gran (auto) 0.53 H Absolute Neuts (auto) 5.8 Absolute Nucleated RBC 0.040 H Nucleated RBC % (auto) 0.4 H Smear Path Review Hold Purple Top Sodium 141 Potassium 3.5 D Chloride 109 H Carbon Dioxide 25 Anion Gap 11 L BUN 10 Creatinine 0.51 0.53 Estim Creat Clear Calc TNP 131.1 Estimated GFR > 60 > 60 Random Glucose 96 Calcium 7.5 L Magnesium 1.9 Total Bilirubin AST ALT Alkaline Phosphatase Troponin I High Sens < 2.7 Total Protein Albumin Vancomycin Trough Random Vancomycin 18.5 Urine Opiates Screen Ur Buprenorphine Scrn Ur Oxycodone Screen Urine Methadone Screen Urine Fentanyl Screen Ur Barbiturates Screen Ur Phencyclidine Scrn Ur Amphetamines Screen U Benzodiazepines Scrn Urine Cocaine Screen U Marijuana (THC) Screen Blood Type Antibody Screen Crossmatch 04/15/25 04/15/25 04/16/25 14:56 15:56 05:56 WBC 13.8 H RBC 2.57 L Hgb 7.3 L Hct 22.9 L MCV 89.1 MCH 28.4 MCHC 31.9 RDW 18.0 H Plt Count 818 H MPV 9.1 L Immature Gran % (Auto) 2.6 H Neut % (Auto) 69.4 Lymph % (Auto) 19.9 L [place] % (Auto) 4.9 Eos % (Auto) 2.4 Baso % (Auto) 0.8 Lymph # (Auto) 2.8 [place] # (Auto) 0.7 Eos # (Auto) 0.3 Baso # (Auto) 0.1 Abs Immat Gran (auto) 0.36 H Absolute Neuts (auto) 9.6 H Absolute Nucleated RBC 0.000 Nucleated RBC % (auto) 0.0 Smear Path Review Hold Purple Top Sodium 140 Potassium 3.4 Chloride 106 Carbon Dioxide 28 Anion Gap 9 L BUN 11 Creatinine 0.66 0.59 Estim Creat Clear Calc 105.2 117.7 Estimated GFR > 60 > 60 Random Glucose 122 H Calcium 7.8 L Magnesium Total Bilirubin 0.1 AST 21 ALT 9 Alkaline Phosphatase 70 Troponin I High Sens Total Protein 5.4 L Albumin 2.5 L Vancomycin Trough Random Vancomycin Urine Opiates Screen POSITIVE H Ur Buprenorphine Scrn Not Detected Ur Oxycodone Screen Not Detected Urine Methadone Screen Positive H Urine Fentanyl Screen POSITIVE H Ur Barbiturates Screen Not Detected Ur Phencyclidine Scrn Not Detected Ur Amphetamines Screen Not Detected U Benzodiazepines Scrn Not Detected Urine Cocaine Screen POSITIVE H U Marijuana (THC) Screen Not Detected Blood Type Antibody Screen Crossmatch 04/16/25 04/16/25 04/16/25 05:58 07:59 11:02 WBC 9.8 RBC 2.42 L Hgb 6.6 L* Hct 21.5 L MCV 88.8 MCH 27.3 MCHC 30.7 L RDW 18.1 H Plt Count 746 H MPV 8.8 L Immature Gran % (Auto) 2.8 H Neut % (Auto) 65.4 Lymph % (Auto) 23.4 [place] % (Auto) 5.7 Eos % (Auto) 1.8 Baso % (Auto) 0.9 Lymph # (Auto) 2.3 [place] # (Auto) 0.6 Eos # (Auto) 0.2 Baso # (Auto) 0.1 Abs Immat Gran (auto) 0.27 H Absolute Neuts (auto) 6.4 Absolute Nucleated RBC 0.000 Nucleated RBC % (auto) 0.0 Smear Path Review SEE NOTE Hold Purple Top SEE NOTE Sodium 140 Potassium 3.7 Chloride 107 Carbon Dioxide 29 Anion Gap 8 L BUN 11 Creatinine 0.60 Estim Creat Clear Calc 115.8 Estimated GFR > 60 Random Glucose 108 Calcium 7.9 L Magnesium Total Bilirubin 0.2 AST 29 ALT 9 Alkaline Phosphatase 61 Troponin I High Sens Total Protein 5.2 L Albumin 2.5 L Vancomycin Trough Random Vancomycin Urine Opiates Screen Ur Buprenorphine Scrn Ur Oxycodone Screen Urine Methadone Screen Urine Fentanyl Screen Ur Barbiturates Screen Ur Phencyclidine Scrn Ur Amphetamines Screen U Benzodiazepines Scrn Urine Cocaine Screen U Marijuana (THC) Screen Blood Type A Positive Antibody Screen NEGATIVE Crossmatch See Detail 04/16/25 04/17/25 04/17/25 21:18 05:24 15:07 WBC 11.0 H 9.9 RBC 3.39 L D 3.26 L Hgb 9.9 L D 9.5 L Hct 30.2 L D 28.8 L MCV 89.1 88.3 MCH 29.2 29.1 MCHC 32.8 33.0 RDW 16.2 H 16.4 H Plt Count 740 H 681 H MPV 9.2 L 8.9 L Immature Gran % (Auto) 2.3 H 1.9 H Neut % (Auto) 64.1 63.9 Lymph % (Auto) 25.0 24.8 [place] % (Auto) 5.7 6.9 Eos % (Auto) 1.6 1.2 Baso % (Auto) 1.3 1.3 Lymph # (Auto) 2.7 2.5 [place] # (Auto) 0.6 0.7 Eos # (Auto) 0.2 0.1 Baso # (Auto) 0.1 0.1 Abs Immat Gran (auto) 0.25 H 0.19 H Absolute Neuts (auto) 7.0 6.3 Absolute Nucleated RBC 0.000 0.000 Nucleated RBC % (auto) 0.0 0.0 Smear Path Review Hold Purple Top Sodium 140 Potassium 3.7 Chloride 103 Carbon Dioxide 28 Anion Gap 13 BUN 14 Creatinine 0.64 Estim Creat Clear Calc 108.5 Estimated GFR > 60 Random Glucose 139 H Calcium 8.4 D Magnesium Total Bilirubin AST ALT Alkaline Phosphatase Troponin I High Sens Total Protein Albumin Vancomycin Trough 16.1 Random Vancomycin Urine Opiates Screen Ur Buprenorphine Scrn Ur Oxycodone Screen Urine Methadone Screen Urine Fentanyl Screen Ur Barbiturates Screen Ur Phencyclidine Scrn Ur Amphetamines Screen U Benzodiazepines Scrn Urine Cocaine Screen U Marijuana (THC) Screen Blood Type Antibody Screen Crossmatch 04/18/25 04/18/25 05:49 05:50 WBC 9.5 RBC 3.40 L Hgb 9.7 L Hct 30.5 L MCV 89.7 MCH 28.5 MCHC 31.8 RDW 16.3 H Plt Count 678 H MPV 9.4 Immature Gran % (Auto) 2.3 H Neut % (Auto) 56.3 Lymph % (Auto) 30.6 [place] % (Auto) 7.8 Eos % (Auto) 1.7 Baso % (Auto) 1.3 Lymph # (Auto) 2.9 [place] # (Auto) 0.7 Eos # (Auto) 0.2 Baso # (Auto) 0.1 Abs Immat Gran (auto) 0.22 H Absolute Neuts (auto) 5.3 Absolute Nucleated RBC 0.000 Nucleated RBC % (auto) 0.0 Smear Path Review Hold Purple Top Sodium 137 Potassium 4.1 Chloride 102 Carbon Dioxide 26 Anion Gap 13 BUN 19 H Creatinine 0.60 Estim Creat Clear Calc 115.8 Estimated GFR > 60 Random Glucose 104 Calcium 8.5 Magnesium Total Bilirubin AST ALT Alkaline Phosphatase Troponin I High Sens Total Protein Albumin Vancomycin Trough Random Vancomycin Urine Opiates Screen Ur Buprenorphine Scrn Ur Oxycodone Screen Urine Methadone Screen Urine Fentanyl Screen Ur Barbiturates Screen Ur Phencyclidine Scrn Ur Amphetamines Screen U Benzodiazepines Scrn Urine Cocaine Screen U Marijuana (THC) Screen Blood Type Antibody Screen Crossmatch Narrative Narrative: ECHO 04/03/2025 Procedure Date: 04/03/2025 Procedure Type: Transthoracic Echocardiogram Location: ER Height: 160.02 cm Weight: 64.41 kg BSA: 1.67 m2 Heart Rate: bpm BP: 155 / 90 mmHg Java Consultant: NYA/APRIL Referring MD: Sue Barajas [employer]-BC Symptoms: rule out endocarditis, IVDA with active infection Study Quality: Adequate ECG Rhythm: Sinus Conclusions: - The left ventricular systolic function is normal. The calculated ejection fraction is 61% by biplane method. - No obvious valvular pathology seen on this study. EKG 04/2025 Vent. Rate : 101 BPM Atrial Rate : 101 BPM P-R Int : 136 ms QRS Dur : 92 ms QT Int : 378 ms P-R-T Axes : 30 25 27 degrees QTcB Int : 490 ms Sinus tachycardia T wave abnormality, consider anterior ischemia Abnormal ECG When compared with ECG of 27-Feb-2025 17:29, Vent. rate has increased by 50 bpm Non-specific change in ST segment in Lateral leads T wave inversion now evident in Anterior leads QT has lengthened Assessment and Plan Final Anesthetic Review Family History of Problems with Anesthesia: No History of Problems with Anesthesia: No Documented by User: Jovanny Domínguez MD 04/21/25 13:06 [facility] Past Medical History Medical History Toxic effect of xylazine History of drug overdose Depression Anxiety IV drug abuse Substance use disorder Surgical History Surgical History History of tonsillectomy and adenoidectomy Hx of section Social History Social History Household Members: Significant Other Housing: Apartment Do you presently have visiting nurse or other home services: No Comment: stay with patient at bedside commode Patient Tobacco Use Status: Current everyday Tobacco user Tobacco use type: Cigarette Cigarettes Per Day: 5 e-Cigarette/Vaping Use: Currently Using Substance Use Type: Crack/Cocaine, Heroin and Marijuana service: No Meds Allergies Allergy/AdvReac Type Severity Reaction Status Date / Time No Known Allergies Allergy Verified 04/02/25 13:13 Home Medications ?Medication ?Instructions ?Recorded ?Confirmed ?Last Taken ?Type methadone 10 mg/mL oral 130 mg PO DAILY 04/03/2508/2704/02/25 11:46 History concentrate (Methadone Intensol) dextroamphetamine-amphetamine 20 35 mg PO DAILY 04/15/25 Unknown History mg tablet (Adderall) dextroamphetamine-amphetamine 5 mg 5 mg PO DAILY 04/1504/15/25 Unknown History tablet (Adderall) doxycycline hyclate 100 mg tablet 100 mg PO BID 04/15/25 Unknown History methadone 5 mg tablet 45 mg PO Q8H 04/15/25 Unkno wn History Exam Exam Date and Time: 04/21/25 Airway Mallampati Class: II TM Dist: >3cm Neck ROM: Full Loose/Missing/Broken Teeth: Yes Heart: rrr Lungs: ctab vesicular Assessment and Plan Assessment Anesthesia Assessment: Anesthesia Plan Discussed, PAT Visit and Chart Reviewed Final Anesthetic Review NPO: Yes ASA Class: II Final Preanesthetic Review: No Changes in Pt Med Stat, Meds/Allgs Chart Reviewed, Consent Obtained/Reviewed and Anes Risks/Benef Reviewed Patient Risk: Low Procedure Risk: Low Anesthetic Plan Anesthetic Plan: GA Disposition: Standard PACU
--- NOTE | 2025-04-18 13:23 | HO.ADDICTPRO ---
Subjective Subjective Date of Service: 04/18/25 Reason For Visit: Medical Interim History: Patient seen in follow up Methadone dose today 90mg in AM and 45mg scheduled for this evening Reports feeling good with dose change Patient tearful about various things--pain with wound care, not having visitors Provided supportive listening Review of Systems Acute medical concerns: Yes Review of Systems Constitutional: Reports as per HPI Mental Status Exam Mental Status Exam Level of Consciousness: Awake, Appropriate and Alert Patient Behavior: Appropriate and Crying Affect Description: Sad Speech Pattern: Clear Thought Process: Intact Thought Content: positive for Intact Judgement: Good Diagnostics Vital Signs (24Hr): Vital Signs - 24 hr 04/17/25 15:53 04/17/25 19:24 04/17/25 21:20 Temperature 97.2 F 97.9 F Pulse Rate 77 65 Respiratory Rate 18 18 Blood Pressure 163/88 H 134/72 144/78 H Pulse Oximetry 97 97 Oxygen Delivery Method Room Air Room Air 04/17/25 23:48 04/18/25 03:35 04/18/25 07:49 Temperature 98.6 F 97.6 F 97.1 F Pulse Rate 77 72 75 Respiratory Rate 18 16 15 Blood Pressure 159/95 H 148/68 H 146/77 H Pulse Oximetry 96 95 97 Oxygen Delivery Method Room Air Room Air Room Air 04/18/25 10:40 04/18/25 12:00 Temperature 98.0 F Pulse Rate 60 Respiratory Rate 14 Blood Pressure 146/77 H 153/81 H Pulse Oximetry 93 Oxygen Delivery Method Room Air Labs 04/18/25 05:49 04/18/25 05:50 Labs: Laboratory Results - last 48 hr 04/16/25 04/16/25 04/17/25 11:02 21:18 05:24 WBC 11.0 H RBC 3.39 L D Hgb 9.9 L D Hct 30.2 L D MCV 89.1 MCH 29.2 MCHC 32.8 RDW 16.2 H Plt Count 740 H MPV 9.2 L Immature Gran % (Auto) 2.3 H Neut % (Auto) 64.1 Lymph % (Auto) 25.0 [place] % (Auto) 5.7 Eos % (Auto) 1.6 Baso % (Auto) 1.3 Lymph # (Auto) 2.7 [place] # (Auto) 0.6 Eos # (Auto) 0.2 Baso # (Auto) 0.1 Abs Immat Gran (auto) 0.25 H Absolute Neuts (auto) 7.0 Absolute Nucleated RBC 0.000 Nucleated RBC % (auto) 0.0 Sodium 140 Potassium 3.7 Chloride 103 Carbon Dioxide 28 Anion Gap 13 BUN 14 Creatinine 0.64 Estim Creat Clear Calc 108.5 Estimated GFR > 60 Random Glucose 139 H Calcium 8.4 D Vancomycin Trough 16.1 Blood Type A Positive Antibody Screen NEGATIVE Crossmatch See Detail 04/17/25 04/18/25 04/18/25 15:07 05:49 05:50 WBC 9.9 9.5 RBC 3.26 L 3.40 L Hgb 9.5 L 9.7 L Hct 28.8 L 30.5 L MCV 88.3 89.7 MCH 29.1 28.5 MCHC 33.0 31.8 RDW 16.4 H 16.3 H Plt Count 681 H 678 H MPV 8.9 L 9.4 Immature Gran % (Auto) 1.9 H 2.3 H Neut % (Auto) 63.9 56.3 Lymph % (Auto) 24.8 30.6 [place] % (Auto) 6.9 7.8 Eos % (Auto) 1.2 1.7 Baso % (Auto) 1.3 1.3 Lymph # (Auto) 2.5 2.9 [place] # (Auto) 0.7 0.7 Eos # (Auto) 0.1 0.2 Baso # (Auto) 0.1 0.1 Abs Immat Gran (auto) 0.19 H 0.22 H Absolute Neuts (auto) 6.3 5.3 Absolute Nucleated RBC 0.000 0.000 Nucleated RBC % (auto) 0.0 0.0 Sodium 137 Potassium 4.1 Chloride 102 Carbon Dioxide 26 Anion Gap 13 BUN 19 H Creatinine 0.60 Estim Creat Clear Calc 115.8 Estimated GFR > 60 Random Glucose 104 Calcium 8.5 Vancomycin Trough Blood Type Antibody Screen Crossmatch Imaging Radiology Impressions: ITS Impressions Elbow X-Ray 04/15/25 11:25 IMPRESSION: Medial soft tissue swelling. No metallic foreign body. Electronically signed by: Jose Padilla MD 04/15/2025 12:04 PM EDT Medications Medications Current Medications Acetaminophen (Acetaminophen 325 Mg Tablet) 650 mg PO Q6H PRN PRN Reason: Pain, Mild 1-3,fever,headache Last Admin: 04/15/25 21:37 Dose: 650 mg Albuterol Sulfate (Albuterol Sulfate (0.083%) 2.5 Mg/3 Ml Vial.Neb) 2.5 mg INHALE Q4H PRN PRN Reason: Wheezing Baclofen (Baclofen 10 Mg Tablet) 10 mg PO TID [facility] Last Admin: 04/18/25 10:40 Dose: 10 mg Bisacodyl (Bisacodyl 10 Mg Supp.Rect) 10 mg ME BEDTIME PRN PRN Reason: Constipation Calcium Carbonate (Calcium Carbonate 750 Mg Tab.Chew) 750 mg PO Q4H PRN PRN Reason: Heartburn Clonidine HCl (Clonidine Hcl 0.1 Mg Tablet) 0.1 mg PO BID [facility]; Protocol Last Admin: 04/18/25 10:40 Dose: 0.1 mg Enoxaparin Sodium (Enoxaparin Sodium 40 Mg/0.4 Ml Syringe) 40 mg SUBCUT Q24H [facility] Last Admin: 04/18/25 10:42 Dose: 40 mg Folic Acid (Folic Acid 1 Mg Tablet) 1 mg PO DAILY [facility] Last Admin: 04/18/25 10:40 Dose: 1 mg Gabapentin (Gabapentin 300 Mg Capsule) 300 mg PO TID [facility] Last Admin: 04/18/25 10:40 Dose: 300 mg Hydromorphone HCl (Hydromorphone Hcl 2 Mg Tablet) 4 mg PO Q3H PRN PRN Reason: Pain, Severe (Pain Scale 7-10) Last Admin: 04/18/25 12:35 Dose: 4 mg Hydromorphone HCl (Hydromorphone Hcl 1 Mg/Ml Syringe) 1 mg IVPUSH Q4H PRN; Protocol PRN Reason: 30m prior to wound care Last Admin: 04/18/25 08:16 Dose: 1 mg Vancomycin HCl 1,250 mg/ (Sodium Chloride) 250 mls @ 166.667 mls/hr IV Q12H [facility] Last Admin: 04/18/25 12:44 Dose: 166.67 mls/hr Magnesium Hydroxide (Milk Of Magnesia 30 Ml Oral.Susp) 30 ml PO DAILY PRN PRN Reason: Constipation Melatonin (Melatonin 3 Mg Tablet) 6 mg PO BEDTIME PRN PRN Reason: Insomnia Methadone HCl (Methadone Hcl 20 Mg/2 Ml Oral.Conc) 90 mg PO DAILY@0800 [facility] Last Admin: 04/18/25 10:39 Dose: 90 mg Methadone HCl (Methadone Hcl 20 Mg/2 Ml Oral.Conc) 45 mg PO DAILY@2100 [facility] Last Admin: 04/17/25 21:17 Dose: 45 mg Multivitamins/Vitamin C (Multivitamin Tablet) 1 tab PO DAILY [facility] Last Admin: 04/18/25 10:40 Dose: 1 tab Naloxone HCl (Naloxone Hcl 0.4 Mg/Ml Vial) 0.1 mg IVPUSH Q5M PRN PRN Reason: Opiate Reversal Pharmacy Consult (Consult Rx Vancomycin Dosing) 1 each MISCELLANE DAILY PRN PRN Reason: Consult order Stop: 05/09/25 09:00 Senna/Docusate Sodium (Sennosides/Docusate Sodium Tablet) 1 tab PO BEDTIME [facility] Last Admin: 04/17/25 21:21 Dose: Not Given Sodium Chloride (0.9 % Sodium Chloride Flush 3 Ml Syringe) 3 ml IVFLUSH QSHIFT [facility] Last Admin: 04/18/25 08:22 Dose: 3 ml Thiamine HCl (Thiamine Hcl 100 Mg Tablet) 100 mg PO DAILY [facility] Last Admin: 04/18/25 10:40 Dose: 100 mg Allergies Allergies Allergy/AdvReac Type Severity Reaction Status Date / Time No Known Allergies Allergy Verified 04/02/25 13:13 Assessment & Plan Assessment & Plan (1) Opioid use disorder, severe, dependence: Status: Acute Code(s): F11.20 - Opioid dependence, uncomplicated Assessment and Plan: continue methadone as is over the 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
--- NOTE | 2025-04-18 14:48 | HO.PM.IMPN ---
Subjective Subjective Date of Service: 04/18/25 Interval History: Condition stabilized. Wound VAC working well Wound care and surgical services assisting. Patient has triple-lumen IJ right-sided, which needs to be replaced. Planning for a possible tunneled catheter right-subclavian Review of Systems Review of Systems: Yes all other systems are reviewed and are negative Physical Exam Exam: Exam: General: A&O x3, oriented to time place person and situation, comfortable; in pain. Cardiac: S1, S2 auscultated with no S3/4, no MRG. Well perfused. Respiratory: Normal breath sounds auscultated throughout all lung zones, without wheezing, rales. Normal rate. GI/ : No abdominal pain on palpation, no masses or distentions. MSK: Multiple extensive open/ packed surgical wounds - RUE (medial shoulder to medial antecubital fossa), anterior chest roberto wound, LUE would proximal to antecub. fossa; Wound vac placed today over right upper extremity and right ant chest roberto wound. Right IJ triple lumen Neurological: Normal neurological examination on overview, without obvious CN II-XII abnormalities. Vital Signs: Vital Signs: Last Vital Signs Temp 98.0 F 04/18/25 12:00 Pulse 60 04/18/25 12:00 Resp 14 04/18/25 12:00 BP 153/81 H 04/18/25 12:00 Pulse Ox 93 04/18/25 12:00 O2 Del Method Room Air 04/18/25 12:00 Objective Data Active Medications Acetaminophen (Acetaminophen 325 Mg Tablet) 650 mg PO Q6H PRN PRN Reason: Pain, Mild 1-3,fever,headache Last Admin: 04/15/25 21:37 Dose: 650 mg Documented By: RAFAEL Albuterol Sulfate (Albuterol Sulfate (0.083%) 2.5 Mg/3 Ml Vial.Neb) 2.5 mg INHALE Q4H PRN PRN Reason: Wheezing Baclofen (Baclofen 10 Mg Tablet) 10 mg PO TID [facility] Last Admin: 04/18/25 10:40 Dose: 10 mg Documented By: KUMAR Bisacodyl (Bisacodyl 10 Mg Supp.Rect) 10 mg [place] BEDTIME PRN PRN Reason: Constipation Calcium Carbonate (Calcium Carbonate 750 Mg Tab.Chew) 750 mg PO Q4H PRN PRN Reason: Heartburn Clonidine HCl (Clonidine Hcl 0.1 Mg Tablet) 0.1 mg PO BID [facility]; Protocol Last Admin: 04/18/25 10:40 Dose: 0.1 mg Documented By: KUMAR Enoxaparin Sodium (Enoxaparin Sodium 40 Mg/0.4 Ml Syringe) 40 mg SUBCUT Q24H [facility] Last Admin: 04/18/25 10:42 Dose: 40 mg Documented By: KUMAR Folic Acid (Folic Acid 1 Mg Tablet) 1 mg PO DAILY [facility] Last Admin: 04/18/25 10:40 Dose: 1 mg Documented By: KUMAR Gabapentin (Gabapentin 300 Mg Capsule) 300 mg PO TID [facility] Last Admin: 04/18/25 10:40 Dose: 300 mg Documented By: KUMAR Hydromorphone HCl (Hydromorphone Hcl 2 Mg Tablet) 4 mg PO Q3H PRN PRN Reason: Pain, Severe (Pain Scale 7-10) Last Admin: 04/18/25 12:35 Dose: 4 mg Documented By: KUMAR Hydromorphone HCl (Hydromorphone Hcl 1 Mg/Ml Syringe) 1 mg IVPUSH Q4H PRN; Protocol PRN Reason: 30m prior to wound care Last Admin: 04/18/25 08:16 Dose: 1 mg Documented By: KUMAR Vancomycin HCl 1,250 mg/ (Sodium Chloride) 250 mls @ 166.667 mls/hr IV Q12H [facility] Last Infusion: 04/18/25 14:20 Dose: Infused Documented By: KUMAR Magnesium Hydroxide (Milk Of Magnesia 30 Ml Oral.Susp) 30 ml PO DAILY PRN PRN Reason: Constipation Melatonin (Melatonin 3 Mg Tablet) 6 mg PO BEDTIME PRN PRN Reason: Insomnia Methadone HCl (Methadone Hcl 20 Mg/2 Ml Oral.Conc) 90 mg PO DAILY@0800 [facility] Last Admin: 04/18/25 10:39 Dose: 90 mg Documented By: KUMAR Co-signed By: BRIDGER Comments: given late d/t pt needing wound vac changed and receiving IV narcotics first Methadone HCl (Methadone Hcl 20 Mg/2 Ml Oral.Conc) 45 mg PO DAILY@2100 [facility] Last Admin: 04/17/25 21:17 Dose: 45 mg Documented By: DORIS Co-signed By: JOAQUINA Multivitamins/Vitamin C (Multivitamin Tablet) 1 tab PO DAILY [facility] Last Admin: 04/18/25 10:40 Dose: 1 tab Documented By: KUMAR Naloxone HCl (Naloxone Hcl 0.4 Mg/Ml Vial) 0.1 mg IVPUSH Q5M PRN PRN Reason: Opiate Reversal Pharmacy Consult (Consult Rx Vancomycin Dosing) 1 each MISCELLANE DAILY PRN PRN Reason: Consult order Stop: 05/09/25 09:00 Senna/Docusate Sodium (Sennosides/Docusate Sodium Tablet) 1 tab PO BEDTIME [facility] Last Admin: 04/17/25 21:21 Dose: Not Given Documented By: DORIS Non-Admin Reason: refused; reporting loose stools Sodium Chloride (0.9 % Sodium Chloride Flush 3 Ml Syringe) 3 ml IVFLUSH QSHIFT [facility] Last Admin: 04/18/25 08:22 Dose: 3 ml Documented By: KUMAR Thiamine HCl (Thiamine Hcl 100 Mg Tablet) 100 mg PO DAILY [facility] Last Admin: 04/18/25 10:40 Dose: 100 mg Documented By: KUMAR Labs 04/18/25 05:49 04/18/25 05:50 Labs: Laboratory Results - last 24 hr 04/17/25 04/18/25 04/18/25 15:07 05:49 05:50 MCV 88.3 89.7 MCH 29.1 28.5 MCHC 33.0 31.8 RDW 16.4 H 16.3 H Plt Count 681 H 678 H MPV 8.9 L 9.4 Immature Gran % (Auto) 1.9 H 2.3 H Neut % (Auto) 63.9 56.3 Lymph % (Auto) 24.8 30.6 [place] % (Auto) 6.9 7.8 Eos % (Auto) 1.2 1.7 Baso % (Auto) 1.3 1.3 Lymph # (Auto) 2.5 2.9 [place] # (Auto) 0.7 0.7 Eos # (Auto) 0.1 0.2 Baso # (Auto) 0.1 0.1 Abs Immat Gran (auto) 0.19 H 0.22 H Absolute Neuts (auto) 6.3 5.3 Absolute Nucleated RBC 0.000 0.000 Nucleated RBC % (auto) 0.0 0.0 Anion Gap 13 Estim Creat Clear Calc 115.8 Estimated GFR > 60 Random Glucose 104 Calcium 8.5 Assessment and Plan (1) Substance use disorder: Status: Acute (2) Opioid use disorder, severe, dependence: Status: Acute (3) IV drug abuse: Status: Acute (4) Anxiety: Status: Acute (5) Depression: Status: Acute (6) GERD (gastroesophageal reflux disease): Status: Acute (7) Anemia: Status: Acute (8) Cellulitis: Status: Acute (9) Abscess of right upper arm and forearm: Status: Acute (10) Abscess of left upper arm and forearm: Status: Acute (11) Myositis: Status: Acute (12) Open wound of right upper extremity: Status: Acute (13) Open wound of left upper arm: Status: Acute (14) Fasciitis: Status: Acute Plan 34 yo female with PMH IVDU c/b hx overdose on methadone, xylozene infection L forearm, depression/ anxiety uses xanax and clonidine off the street, presents with swelling of right upper extremity, admitted 04/02-04/06 with sepsis 2/2 right upper extremity abscess and cellulitis with myositis 2/2 IVDU s/p I&D R shoulder - transferred to [facility] for extensive debridement and I&Ds of multiple bilateral UE abscesses - transfered to [facility] for continued management. Sepsis - MRSA+ve Bilateral upper extremity abscesses Bilateral upper extremity cellulitis Bilateral upper extremity fasciitis Bilateral upper extremity myositis IVDU Venous Access issues; right triple lumen IJ Patient met criteria for sepsis on admission 04/02; noting bandemia 41, lactic acid 2.7 down to 1.8 after IV fluids, tachycardia. ESR and CRP both elevated. CT of the right upper extremity confirms cellulitis with extensive myositis and developing ill-defined abscess at the level of the shoulder with reactive right axillary adenopathy. S/P I&D by general surgery 04/03/25 - no complications No evidence on TTE valvular vegetation. Possible micro seeding. Re-evaluation with CT right and left upper extremities for evidence of infective endocarditis/septic emboli; revealing extensive evidence of abscesses, phlegmon, tenosynoviitis and superimposed fasciitis, myositis and possible tissue necrosis - please see CT report for specifics. Surgery reports that burden of disease is extensive, requiring higher level of care - transferred to [facility] - s/p I&D of RUE and LUE; 04/08/25 - RUE biceps & triceps abscesses - Left AC fossa abscess Currently on: - Vancomycin (end dose 05/07/25) - Clindamycin (end dose 04/15/25) - Post vancomycin, start Doxycyline (05/08-05/22/25) Last negative culture: 04/09/25 Patient has right triple lumen IJ - needs to be replaced - planning for tunneled cath right vs left subclavian PLAN - Vancomycin (end dose 05/07/25) - Clindamycin (end dose 04/15/25) - Post vancomycin, start Doxycyline (05/08-05/22/25) - wound care consultation placed - general surgery consultation placed - Dilaudid 4 mg q.3h hourly - Dilaudid 1 mg q.1h hourly p.r.n. ; 30 minutes prior to wound cleaning - Packing changes to right upper extremity and right chest wall with to dry saline moistured Kerlix gauze, cover with Kerlix wrap followed by Osbaldo wraps - Left upper extremity has a retained needles from patient's injections prior to admission, DO NOT PACK THIS WOUND WITH FINGERS MOST USE INSTRUMENTS, either Luda forcepts etc - Patient has right triple lumen IJ - needs to be replaced - planning for tunneled cath right vs left subclavian Acute blood loss anemia S/p hematoma w/ clot evacuation 04/08/2025 Anemia s/p 1UPRBC transfusion at [facility]. Hemoglobin decreased to 6.7 mg/dL today. Type and screen and blood consent forms were signed 2 unit PRBC was administered with the patient without complication Repeat CBC Mild hyponatremia - resolved Hypokalemia - Trend BMP daily GERD - Protonix b.i.d. - Monitor H&H Constipation - Milk of magnesia UTE - heroin/fentanyl - cocaine Patient normally on methadone 130 mg per day, confirmed with Addiction medicine services Continue Methadone Addiction medicine consultation for reccs re; pain management outpatient setting Patient has been found to be using illicit substances during hospital stay. These items have been confiscated Discussed with the patient policy implementation: - no visitor policy currently in effect - items dropped off from family members/friends/visitors need to be searched by security - continue video monitoring in room - addiction medicine consultation QUAL[facility]R[employer] - VTE: Enoxaparin - CODE STATUS: Full code - DIET: Regular Total time managing care of this patient today: 45 minutes. Quality Stroke Does the patient have a stroke diagnosis?: No VTE Prior VTE?: No VTE Risk Level:: Medical - moderate - high VTE Device Contraindication: Treatment Not Indicated VTE Drug Contraindication: N/A - Med Ordered
--- NOTE | 2025-04-18 16:09 | PC.NURSE ---
unable to draw blood from any line of triple lumen catheter, phlebotomy made aware and unable to draw blood d/t being difficult Dr. Tarun lopez made aware
[2025-04-18] MEDS: methADONE HCl 20 MG/2 ML ORAL.CONC 45 MG PO (21:09)
[2025-04-19] VITALS (8 sets, daily range): BP systolic 140–181; BP diastolic 70–88; PULSE 63–83; RESP 16–18; TEMP 36.1–37.1; O2SAT 96–99
[2025-04-19 06:42] LABS: Hematocrit 28.5 % (37.0-47.0); Hemoglobin 9.4 g/dl (12.0-16.0); Imm Gran Abs Auto 0.19 X10*3/uL (0.00-0.03); Imm Gran Pct Auto 2.2 % (0.0-0.4); Lymphocytes Absolute Auto 2.7 X10*3/uL (1.2-4.9); MANUAL DIFF FLAG SCAN; Mean Corpuscular HGB Conc 33.0 g/dl (31.0-35.0); Mean Corpuscular Hemoglobin 29.1 pg (27.0-33.0); Mean Corpuscular Volume 88.2 fL (80.0-98.0); NRBC Abs Auto 0.000 X10*3/uL (0.0-0.012); NRBC Pct Auto 0.0 /100WBC (0.0-0.2); PLT CLUMP 1; Red Blood Count 3.23 X10*6/uL (4.20-5.50); SCAN SMEAR FLAG 1
[2025-04-19 06:59] LABS: Anion Gap 13 (12-20); Blood Urea Nitrogen 18 mg/dL (9-16); Calcium 8.4 mg/dL (8.4-10.2); Carbon Dioxide 24 mmol/L (22-29); Chloride 105 mmol/L (96-108); Creatinine Clr Calc Pharmacy 106.8; Estimated Glomerular Filt Rate > 60; Potassium 4.2 mmol/L (3.3-5.1); Sodium 138 mmol/L (135-145)
[2025-04-19 07:24] LABS: Platelet Count 616 X10*3/uL (160-400); White Blood Count 8.7 X10*3/uL (4.8-10.8)
[2025-04-19] MEDS: methADONE HCl 20 MG/2 ML ORAL.CONC 90 MG PO (08:47)
[2025-04-19] MEDS: 0.9 % Sodium Chloride Flush 3 ML SYRINGE IVFLUSH ×2 (08:48→16:09)
--- NOTE | 2025-04-19 12:13 | PC.NURSE ---
Pt AOx4, pleasant able to make needs known and corporative with care. Pt endorsing pain, PRN medication given with good effect. Pt able to turn and reposition herself in bed. Would vac in place, no air leaks noted. All safety measures in place.
--- NOTE | 2025-04-19 13:05 | P.PNIM_ITS ---
Subjective Subjective Date of Service: 04/19/25 Interval History: No new complaints today. No fevers chills or rigors. Wound VAC in place, no complications. Patient is pain-free currently. Still has right-sided triple lumen IJ. No complications, however blood can not be withdrawn. Needs to be replaced with another triple-lumen IJ. IR consulted yesterday for possible tunneled cath; hesitation was expressed given possibility of patient leaving against medical advice. Patient asks about visitor restrictions, if they can be relieved. As per hospital protocol, and given having found illicit substances on person, unfortunately, visitor restriction is still in place Patient expresses understanding. Review of Systems Review of Systems: Yes all other systems are reviewed and are negative Physical Exam 2 Exam: Exam: General: A&O x3, oriented to time place person and situation, comfortable; in pain. Cardiac: S1, S2 auscultated with no S3/4, no MRG. Well perfused. Respiratory: Normal breath sounds auscultated throughout all lung zones, without wheezing, rales. Normal rate. GI/ : No abdominal pain on palpation, no masses or distentions. MSK: Multiple extensive open/ packed surgical wounds - RUE (medial shoulder to medial antecubital fossa), anterior chest roberto wound, LUE would proximal to antecub. fossa; Wound vac placed today over right upper extremity and right ant chest roberto wound. Right IJ triple lumen Neurological: Normal neurological examination on overview, without obvious CN II-XII abnormalities. Vital Signs: Vital Signs: Last Vital Signs Temp 98.7 F 04/19/25 07:23 Pulse 67 04/19/25 07:23 Resp 18 04/19/25 07:23 BP 143/78 H 04/19/25 07:23 Pulse Ox 98 04/19/25 07:23 O2 Del Method Room Air 04/19/25 07:23 Objective Data Active Medications Acetaminophen (Acetaminophen 325 Mg Tablet) 650 mg PO Q6H PRN PRN Reason: Pain, Mild 1-3,fever,headache Last Admin: 04/15/25 21:37 Dose: 650 mg Documented By: RAFAEL Albuterol Sulfate (Albuterol Sulfate (0.083%) 2.5 Mg/3 Ml Vial.Neb) 2.5 mg INHALE Q4H PRN PRN Reason: Wheezing Baclofen (Baclofen 10 Mg Tablet) 10 mg PO TID [facility] Last Admin: 04/19/25 08:46 Dose: 10 mg Documented By: ABDIRASHID Bisacodyl (Bisacodyl 10 Mg Supp.Rect) 10 mg [place] BEDTIME PRN PRN Reason: Constipation Calcium Carbonate (Calcium Carbonate 750 Mg Tab.Chew) 750 mg PO Q4H PRN PRN Reason: Heartburn Clonidine HCl (Clonidine Hcl 0.1 Mg Tablet) 0.1 mg PO BID [facility]; Protocol Last Admin: 04/19/25 08:46 Dose: 0.1 mg Documented By: ABDIRASHID Enoxaparin Sodium (Enoxaparin Sodium 40 Mg/0.4 Ml Syringe) 40 mg SUBCUT Q24H [facility] Last Admin: 04/19/25 08:47 Dose: 40 mg Documented By: ABDIRASHID Folic Acid (Folic Acid 1 Mg Tablet) 1 mg PO DAILY [facility] Last Admin: 04/19/25 08:46 Dose: 1 mg Documented By: ABDIRASHID Gabapentin (Gabapentin 300 Mg Capsule) 300 mg PO TID [facility] Last Admin: 04/19/25 08:46 Dose: 300 mg Documented By: ABDIRASHID Hydromorphone HCl (Hydromorphone Hcl 2 Mg Tablet) 4 mg PO Q3H PRN PRN Reason: Pain, Severe (Pain Scale 7-10) Last Admin: 04/19/25 08:47 Dose: 4 mg Documented By: ABDIRASHID Hydromorphone HCl (Hydromorphone Hcl 1 Mg/Ml Syringe) 1 mg IVPUSH Q4H PRN; Protocol PRN Reason: 30m prior to wound care Last Admin: 04/19/25 12:39 Dose: 1 mg Documented By: MARISELA Vancomycin HCl 1,250 mg/ (Sodium Chloride) 250 mls @ 166.667 mls/hr IV Q12H [facility] Last Admin: 04/19/25 12:24 Dose: 166.67 mls/hr Documented By: ABDIRASHID Magnesium Hydroxide (Milk Of Magnesia 30 Ml Oral.Susp) 30 ml PO DAILY PRN PRN Reason: Constipation Melatonin (Melatonin 3 Mg Tablet) 6 mg PO BEDTIME PRN PRN Reason: Insomnia Methadone HCl (Methadone Hcl 20 Mg/2 Ml Oral.Conc) 90 mg PO DAILY@0800 [facility] Last Admin: 04/19/25 08:47 Dose: 90 mg Documented By: ABDIRASHID Co-signed By: MARISELA Methadone HCl (Methadone Hcl 20 Mg/2 Ml Oral.Conc) 45 mg PO DAILY@2100 [facility] Last Admin: 04/18/25 21:09 Dose: 45 mg Documented By: EMORY Co-signed By: TORITO Multivitamins/Vitamin C (Multivitamin Tablet) 1 tab PO DAILY [facility] Last Admin: 04/19/25 08:46 Dose: 1 tab Documented By: ABDIRASHID Naloxone HCl (Naloxone Hcl 0.4 Mg/Ml Vial) 0.1 mg IVPUSH Q5M PRN PRN Reason: Opiate Reversal Pharmacy Consult (Consult Rx Vancomycin Dosing) 1 each MISCELLANE DAILY PRN PRN Reason: Consult order Stop: 05/09/25 09:00 Senna/Docusate Sodium (Sennosides/Docusate Sodium Tablet) 1 tab PO BEDTIME [facility] Last Admin: 04/18/25 21:07 Dose: 1 tab Documented By: EMORY Sodium Chloride (0.9 % Sodium Chloride Flush 3 Ml Syringe) 3 ml IVFLUSH QSHIFT [facility] Last Admin: 04/19/25 08:48 Dose: 3 ml Documented By: ABDIRASHID Thiamine HCl (Thiamine Hcl 100 Mg Tablet) 100 mg PO DAILY [facility] Last Admin: 04/19/25 08:46 Dose: 100 mg Documented By: ABDIRASHID Labs 04/19/25 06:17 04/19/25 06:17 Labs: Laboratory Results - last 24 hr 04/18/25 04/18/25 04/19/25 05:50 21:31 06:17 MCV 88.2 MCH 29.1 MCHC 33.0 RDW 15.9 Plt Count 616 H MPV 9.5 Immature Gran % (Auto) 2.2 H Neut % (Auto) 54.7 Lymph % (Auto) 30.6 [place] % (Auto) 8.7 Eos % (Auto) 2.5 Baso % (Auto) 1.3 Lymph # (Auto) 2.7 [place] # (Auto) 0.8 Eos # (Auto) 0.2 Baso # (Auto) 0.1 Abs Immat Gran (auto) 0.19 H Absolute Neuts (auto) 4.8 Absolute Nucleated RBC 0.000 Nucleated RBC % (auto) 0.0 Smear Tech's Comments VERIFIED Anion Gap 13 Estim Creat Clear Calc 106.8 Estimated GFR > 60 Random Glucose 104 Calcium 8.4 Beta HCG, Quant < 2 Random Vancomycin 14.9 L Assessment and Plan (1) Substance use disorder: Status: Acute (2) IV drug abuse: Status: Acute (3) Opioid use disorder, severe, dependence: Status: Acute (4) GERD (gastroesophageal reflux disease): Status: Acute (5) Anemia: Status: Acute (6) Cellulitis: Status: Acute (7) Sepsis: Status: Acute (8) Abscess of right upper arm and forearm: Status: Acute (9) Abscess of left upper arm and forearm: Status: Acute (10) Myositis: Status: Acute (11) Open wound of right upper extremity: Status: Acute (12) Open wound of left upper arm: Status: Acute (13) Fasciitis: Status: Acute Plan 34 yo female with PMH IVDU c/b hx overdose on methadone, xylozene infection L forearm, depression/ anxiety uses xanax and clonidine off the street, presents with swelling of right upper extremity, admitted 04/02-04/06 with sepsis 2/2 right upper extremity abscess and cellulitis with myositis 2/2 IVDU s/p I&D R shoulder - transferred to [facility] for extensive debridement and I&Ds of multiple bilateral UE abscesses - transfered to [facility] for continued management. Sepsis - MRSA+ve Bilateral upper extremity abscesses Bilateral upper extremity cellulitis Bilateral upper extremity fasciitis Bilateral upper extremity myositis IVDU Venous Access issues; right triple lumen IJ Patient met criteria for sepsis on admission 04/02; noting bandemia 41, lactic acid 2.7 down to 1.8 after IV fluids, tachycardia. ESR and CRP both elevated. CT of the right upper extremity confirms cellulitis with extensive myositis and developing ill-defined abscess at the level of the shoulder with reactive right axillary adenopathy. S/P I&D by general surgery 04/03/25 - no complications No evidence on TTE valvular vegetation. Possible micro seeding. Re-evaluation with CT right and left upper extremities for evidence of infective endocarditis/septic emboli; revealing extensive evidence of abscesses, phlegmon, tenosynoviitis and superimposed fasciitis, myositis and possible tissue necrosis - please see CT report for specifics. Surgery reports that burden of disease is extensive, requiring higher level of care - transferred to [facility] - s/p I&D of RUMary and LUZ; 04/08/25 - RUE biceps & triceps abscesses - Left AC fossa abscess Currently on: - Vancomycin (end dose 05/07/25) - Clindamycin (end dose 04/15/25) - Post vancomycin, start Doxycyline (05/08-05/22/25) Last negative culture: 04/09/25 Patient has right triple lumen IJ - needs to be replaced - planning for tunneled cath right vs left subclavian PLAN - Vancomycin (end dose 05/07/25) - Clindamycin (end dose 04/15/25) - Post vancomycin, start Doxycyline (05/08-05/22/25) - wound care consultation placed - general surgery consultation placed - Dilaudid 4 mg q.3h hourly - Dilaudid 1 mg q.1h hourly p.r.n. ; 30 minutes prior to wound cleaning - Packing changes to right upper extremity and right chest wall with to dry saline moistured Kerlix gauze, cover with Kerlix wrap followed by Osbaldo wraps - Left upper extremity has a retained needles from patient's injections prior to admission, DO NOT PACK THIS WOUND WITH FINGERS MOST USE INSTRUMENTS, either Luda forcepts etc - Patient has right triple lumen IJ - needs to be replaced - planning for tunneled cath right vs left subclavian Acute blood loss anemia S/p hematoma w/ clot evacuation 04/08/2025 Anemia s/p 1UPRBC transfusion at [facility]. Hemoglobin decreased to 6.7 mg/dL today. Type and screen and blood consent forms were signed 2 unit PRBC was administered with the patient without complication Repeat CBC UTE - heroin/fentanyl - cocaine Patient normally on methadone 130 mg per day, confirmed with Addiction medicine services Continue Methadone Addiction medicine consultation for reccs re; pain management outpatient setting Patient has been found to be using illicit substances during hospital stay. These items have been confiscated Discussed with the patient policy implementation: - no visitor policy currently in effect - items dropped off from family members/friends/visitors need to be searched by security - continue video monitoring in room - addiction medicine consultation Mild hyponatremia - resolved Hypokalemia - Trend BMP daily GERD - Protonix b.i.d. - Monitor H&H Constipation - Milk of magnesia [facility] - VTE: Enoxaparin - CODE STATUS: Full code - DIET: Regular Quality Stroke Does the patient have a stroke diagnosis?: No VTE Prior VTE?: No VTE Risk Level:: Medical - moderate - high VTE Device Contraindication: Treatment Not Indicated VTE Drug Contraindication: N/A - Med Ordered
[2025-04-19] MEDS: methADONE HCl 20 MG/2 ML ORAL.CONC 45 MG PO (21:29)
[2025-04-20] VITALS (7 sets, daily range): BP systolic 114–158; BP diastolic 62–80; PULSE 64–75; RESP 12–18; TEMP 36.1–36.9; O2SAT 96–97
[2025-04-20 07:00] LABS: Anion Gap 15 (12-20); Blood Urea Nitrogen 21 mg/dL (9-16); Calcium 8.8 mg/dL (8.4-10.2); Carbon Dioxide 24 mmol/L (22-29); Chloride 106 mmol/L (96-108); Creatinine Clr Calc Pharmacy 110.2; Estimated Glomerular Filt Rate > 60; Potassium 4.8 mmol/L (3.3-5.1); Sodium 140 mmol/L (135-145)
[2025-04-20] MEDS: methADONE HCl 20 MG/2 ML ORAL.CONC 90 MG PO (07:40)
[2025-04-20] MEDS: 0.9 % Sodium Chloride Flush 3 ML SYRINGE IVFLUSH ×3 (07:41→23:31)
--- NOTE | 2025-04-20 13:15 | PC.NURSE ---
Pt states she has belongings that need to be returned to her boyfriend. Per hx, Boyfriend is not allowed on floor, see previous nursing notes for details. Per security belongings can be sent to to their office to be picked up by boyfriend. Belongings included 1 charging cord and facial cream. Items were placed in clear bag and labeled with pt sticker. Items sent with supervisor grips to bring to security.
--- NOTE | 2025-04-20 15:33 | P.PNIM_ITS ---
Subjective Subjective Date of Service: 04/20/25 Interval History: No acute issues. Comfortable. No new complaints. Review of Systems Review of Systems: Yes all other systems are reviewed and are negative Physical Exam 2 Exam: Exam: General: A&O x3, oriented to time place person and situation, comfortable; in pain. Cardiac: S1, S2 auscultated with no S3/4, no MRG. Well perfused. Respiratory: Normal breath sounds auscultated throughout all lung zones, without wheezing, rales. Normal rate. GI/ : No abdominal pain on palpation, no masses or distentions. MSK: Multiple extensive open/ packed surgical wounds - RUE (medial shoulder to medial antecubital fossa), anterior chest roberto wound, LUE would proximal to antecub. fossa; Wound vac placed today over right upper extremity and right ant chest roberto wound. Right IJ triple lumen Neurological: Normal neurological examination on overview, without obvious CN II-XII abnormalities. Vital Signs: Vital Signs: Last Vital Signs Temp 98.5 F 04/20/25 15:11 Pulse 72 04/20/25 15:11 Resp 18 04/20/25 15:11 BP 158/72 H 04/20/25 15:11 Pulse Ox 97 04/20/25 15:11 O2 Del Method Room Air 04/20/25 15:11 Objective Data Active Medications Acetaminophen (Acetaminophen 325 Mg Tablet) 650 mg PO Q6H PRN PRN Reason: Pain, Mild 1-3,fever,headache Last Admin: 04/20/25 14:30 Dose: 650 mg Documented By: ABDIRASHID Albuterol Sulfate (Albuterol Sulfate (0.083%) 2.5 Mg/3 Ml Vial.Neb) 2.5 mg INHALE Q4H PRN PRN Reason: Wheezing Baclofen (Baclofen 10 Mg Tablet) 10 mg PO TID [facility] Last Admin: 04/20/25 14:30 Dose: 10 mg Documented By: ABDIRASHID Bisacodyl (Bisacodyl 10 Mg Supp.Rect) 10 mg VT BEDTIME PRN PRN Reason: Constipation Calcium Carbonate (Calcium Carbonate 750 Mg Tab.Chew) 750 mg PO Q4H PRN PRN Reason: Heartburn Clonidine HCl (Clonidine Hcl 0.1 Mg Tablet) 0.1 mg PO BID [facility]; Protocol Last Admin: 04/20/25 07:39 Dose: 0.1 mg Documented By: ABDIRASHID Enoxaparin Sodium (Enoxaparin Sodium 40 Mg/0.4 Ml Syringe) 40 mg SUBCUT Q24H [facility] Last Admin: 04/20/25 07:40 Dose: 40 mg Documented By: ABDIRASHID Folic Acid (Folic Acid 1 Mg Tablet) 1 mg PO DAILY [facility] Last Admin: 04/20/25 07:39 Dose: 1 mg Documented By: ABDIRASHID Gabapentin (Gabapentin 300 Mg Capsule) 300 mg PO TID [facility] Last Admin: 04/20/25 14:30 Dose: 300 mg Documented By: ABDIRASHID Hydromorphone HCl (Hydromorphone Hcl 1 Mg/Ml Syringe) 1 mg IVPUSH Q4H PRN; Protocol PRN Reason: 30m prior to wound care Last Admin: 04/20/25 11:24 Dose: 1 mg Documented By: ABDIRASHID Hydromorphone HCl (Hydromorphone Hcl 2 Mg Tablet) 4 mg PO Q3H PRN PRN Reason: Pain, Severe (Pain Scale 7-10) Last Admin: 04/20/25 14:30 Dose: 4 mg Documented By: ABDIRASHID Vancomycin HCl 1,000 mg/ (Sodium Chloride) 270 mls @ 270 mls/hr IV Q12H [facility] Last Infusion: 04/20/25 12:29 Dose: Infused Documented By: ABDIRASHID Magnesium Hydroxide (Milk Of Magnesia 30 Ml Oral.Susp) 30 ml PO DAILY PRN PRN Reason: Constipation Melatonin (Melatonin 3 Mg Tablet) 6 mg PO BEDTIME PRN PRN Reason: Insomnia Methadone HCl (Methadone Hcl 20 Mg/2 Ml Oral.Conc) 90 mg PO DAILY@0800 [facility] Last Admin: 04/20/25 07:40 Dose: 90 mg Documented By: ABDIRASHID Co-signed By: MARISELA Methadone HCl (Methadone Hcl 20 Mg/2 Ml Oral.Conc) 45 mg PO DAILY@2100 [facility] Last Admin: 04/19/25 21:29 Dose: 45 mg Documented By: EMORY Co-signed By: RAJI Multivitamins/Vitamin C (Multivitamin Tablet) 1 tab PO DAILY [facility] Last Admin: 04/20/25 07:40 Dose: 1 tab Documented By: ABDIRASHID Naloxone HCl (Naloxone Hcl 0.4 Mg/Ml Vial) 0.1 mg IVPUSH Q5M PRN PRN Reason: Opiate Reversal Pharmacy Consult (Consult Rx Vancomycin Dosing) 1 each MISCELLANE DAILY PRN PRN Reason: Consult order Stop: 05/09/25 09:00 Senna/Docusate Sodium (Sennosides/Docusate Sodium Tablet) 1 tab PO BEDTIME [facility] Last Admin: 04/19/25 21:33 Dose: 1 tab Documented By: EMORY Sodium Chloride (0.9 % Sodium Chloride Flush 3 Ml Syringe) 3 ml IVFLUSH QSHIFT [facility] Last Admin: 04/20/25 14:32 Dose: 3 ml Documented By: ABDIRASHID Thiamine HCl (Thiamine Hcl 100 Mg Tablet) 100 mg PO DAILY [facility] Last Admin: 04/20/25 07:39 Dose: 100 mg Documented By: ABDIRASHID Labs 04/19/25 06:17 04/20/25 05:52 Labs: Laboratory Results - last 24 hr 04/19/25 04/20/25 21:04 05:52 Anion Gap 15 Estim Creat Clear Calc 110.2 Estimated GFR > 60 Random Glucose 98 Calcium 8.8 Random Vancomycin 16.4 Assessment and Plan (1) Substance use disorder: Status: Acute (2) Depression: Status: Acute (3) Anxiety: Status: Acute (4) IV drug abuse: Status: Acute (5) Opioid use disorder, severe, dependence: Status: Acute (6) GERD (gastroesophageal reflux disease): Status: Acute (7) Cellulitis: Status: Acute (8) Sepsis: Status: Acute (9) Abscess of right upper arm and forearm: Status: Acute (10) Abscess of left upper arm and forearm: Status: Acute (11) Myositis: Status: Acute (12) Open wound of right upper extremity: Status: Acute (13) Open wound of left upper arm: Status: Acute (14) Fasciitis: Status: Acute Plan 34 yo female with PMH IVDU c/b hx overdose on methadone, xylozene infection L forearm, depression/ anxiety uses xanax and clonidine off the street, presents with swelling of right upper extremity, admitted 04/02-04/06 with sepsis 2/2 right upper extremity abscess and cellulitis with myositis 2/2 IVDU s/p I&D R shoulder - transferred to [facility] for extensive debridement and I&Ds of multiple bilateral UE abscesses - transfered to [facility] for continued management. Sepsis - MRSA+ve Bilateral upper extremity abscesses Bilateral upper extremity cellulitis Bilateral upper extremity fasciitis Bilateral upper extremity myositis IVDU Venous Access issues; right triple lumen IJ Patient met criteria for sepsis on admission 04/02; noting bandemia 41, lactic acid 2.7 down to 1.8 after IV fluids, tachycardia. ESR and CRP both elevated. CT of the right upper extremity confirms cellulitis with extensive myositis and developing ill-defined abscess at the level of the shoulder with reactive right axillary adenopathy. S/P I&D by general surgery 04/03/25 - no complications No evidence on TTE valvular vegetation. Possible micro seeding. Re-evaluation with CT right and left upper extremities for evidence of infective endocarditis/septic emboli; revealing extensive evidence of abscesses, phlegmon, tenosynoviitis and superimposed fasciitis, myositis and possible tissue necrosis - please see CT report for specifics. Surgery reports that burden of disease is extensive, requiring higher level of care - transferred to [facility] - s/p I&D of RUE and LUE; 04/08/25 - RUE biceps & triceps abscesses - Left AC fossa abscess Currently on: - Vancomycin (end dose 05/07/25) - Clindamycin (end dose 04/15/25) - Post vancomycin, start Doxycyline (05/08-05/22/25) Last negative culture: 04/09/25 Patient has right triple lumen IJ - needs to be replaced - planning for tunneled cath right vs left subclavian PLAN - Vancomycin (end dose 05/07/25) - Clindamycin (end dose 04/15/25) - Post vancomycin, start Doxycyline (05/08-05/22/25) - wound care consultation placed - general surgery consultation placed - Dilaudid 4 mg q.3h hourly - Dilaudid 1 mg q.1h hourly p.r.n. ; 30 minutes prior to wound cleaning - Packing changes to right upper extremity and right chest wall with to dry saline moistured Kerlix gauze, cover with Kerlix wrap followed by Osbaldo wraps - Left upper extremity has a retained needles from patient's injections prior to admission, DO NOT PACK THIS WOUND WITH FINGERS MOST USE INSTRUMENTS, either Luda forcepts etc - Patient has right triple lumen IJ - needs to be replaced - planning for tunneled cath right vs left subclavian Acute blood loss anemia S/p hematoma w/ clot evacuation 04/08/2025 Anemia s/p 1UPRBC transfusion at [facility]. Hemoglobin decreased to 6.7 mg/dL today. Type and screen and blood consent forms were signed 2 unit PRBC was administered with the patient without complication 04/18/25 UTE - heroin/fentanyl - cocaine Patient normally on methadone 130 mg per day, confirmed with Addiction medicine services Continue Methadone Addiction medicine consultation for reccs re; pain management outpatient setting Patient has been found to be using illicit substances during hospital stay. These items have been confiscated Discussed with the patient policy implementation: - no visitor policy currently in effect - items dropped off from family members/friends/visitors need to be searched by security - continue video monitoring in room - addiction medicine consultation Mild hyponatremia - resolved Hypokalemia - Trend BMP daily GERD - Protonix b.i.d. - Monitor H&H Constipation - Milk of magnesia QUALITY [employer] - VTE: Enoxaparin - CODE STATUS: Full code - DIET: Regular Total time managing care of this patient today: 35 minutes. Quality Stroke Does the patient have a stroke diagnosis?: No VTE Prior VTE?: No VTE Risk Level:: Medical - moderate - high VTE Device Contraindication: Treatment Not Indicated VTE Drug Contraindication: N/A - Med Ordered
--- NOTE | 2025-04-20 18:00 | MHC.RECOVRN ---
TW met with pt in 374 to offer continued support. Pt was laying in bed with eyes closed but did awake to name being called. She did not appear to be in any acute distress. Pt reports frustration with boyfriend not being to visit and became tearful, but states she is able to understand why. She endorses continued pain and states she is anxious to have her dressing change Monday because it hurts so much, even with the medication . Pt denied any current questions and concerns. TW available as needed for continued support.
[2025-04-20] MEDS: methADONE HCl 20 MG/2 ML ORAL.CONC 45 MG PO (21:17)
[2025-04-21] VITALS (13 sets, daily range): BP systolic 127–181; BP diastolic 52–89; PULSE 56–80; RESP 9–20; TEMP 36.1–36.6; O2SAT 92–97
--- NOTE | 2025-04-21 05:54 | PC.NURSE ---
This RN assumed care of patient 19:00. Patient has been cooperative and compliant. Complained of pain 2x this whole shift but has been resting in the bed otherwise. She is scheduled to go to OR this afternoon and has been NPO since midnight.
[2025-04-21 06:10] LABS: Creatinine Clr Calc Pharmacy 96.5; Estimated Glomerular Filt Rate > 60
[2025-04-21] MEDS: methADONE HCl 20 MG/2 ML ORAL.CONC 90 MG PO (08:34)
[2025-04-21] MEDS: 0.9 % Sodium Chloride Flush 3 ML SYRINGE IVFLUSH ×3 (08:41→23:57)
[2025-04-21 09:11] LABS: Hematocrit 31.7 % (37.0-47.0); Hemoglobin 10.4 g/dl (12.0-16.0); Mean Corpuscular HGB Conc 32.8 g/dl (31.0-35.0); Mean Corpuscular Hemoglobin 29.4 pg (27.0-33.0); Mean Corpuscular Volume 89.5 fL (80.0-98.0); NRBC Abs Auto 0.000 X10*3/uL (0.0-0.012); NRBC Pct Auto 0.0 /100WBC (0.0-0.2); Platelet Count 449 X10*3/uL (160-400); Red Blood Count 3.54 X10*6/uL (4.20-5.50); White Blood Count 7.0 X10*3/uL (4.8-10.8)
--- NOTE | 2025-04-21 10:25 | P.PNGS_ITS ---
Subjective Subjective Date of Service: 04/21/25 <Berta Be PA-C - Last Filed: 04/21/25 10:28> 04/21/25 <Dylan Stephenson MD - Last Filed: 04/21/25 14:35> Interval history: Did well over the weekend, no events. Some mild pain at right arm. Nervous about dressing change today. <Berta Be PA-C - Last Filed: 04/21/25 10:28> Physical Exam 2 Vital Signs: Vital Signs: Last Vital Signs Temp 97.3 F 04/21/25 07:32 Pulse 72 04/21/25 07:32 Resp 18 04/21/25 07:32 BP 140/73 H 04/21/25 07:32 Pulse Ox 96 04/21/25 07:32 O2 Del Method Room Air 04/21/25 07:32 <Berta Be PA-C - Last Filed: 04/21/25 10:28> Const: General: comfortable, no acute distress and alert <Berta Be PA-C - Last Filed: 04/21/25 10:28> Orientation/consciousness: patient oriented x3 <Berta Be PA-C - Last Filed: 04/21/25 10:28> Resp: Effort & Inspection: normal respiratory effort <Berta Be PA-C - Last Filed: 04/21/25 10:28> Skin: Other: right upper extremity/chest with wound vac in place, good seal noted, serosanguineous drainage in cannister <Berta Be PA-C - Last Filed: 04/21/25 10:28> Neuro: General: patient oriented x3 and moves all extremities <CONNER Scruggs Last Filed: 04/21/25 10:28> Objective Data Active Medications Acetaminophen (Acetaminophen 325 Mg Tablet) 650 mg PO Q6H PRN PRN Reason: Pain, Mild 1-3,fever,headache Last Admin: 04/20/25 14:30 Dose: 650 mg Documented By: ABDIRASHID Albuterol Sulfate (Albuterol Sulfate (0.083%) 2.5 Mg/3 Ml Vial.Neb) 2.5 mg INHALE Q4H PRN PRN Reason: Wheezing Baclofen (Baclofen 10 Mg Tablet) 10 mg PO TID [facility] Last Admin: 04/21/25 08:27 Dose: 10 mg Documented By: SUZIE Bisacodyl (Bisacodyl 10 Mg Supp.Rect) 10 mg LA BEDTIME PRN PRN Reason: Constipation Calcium Carbonate (Calcium Carbonate 750 Mg Tab.Chew) 750 mg PO Q4H PRN PRN Reason: Heartburn Clonidine HCl (Clonidine Hcl 0.1 Mg Tablet) 0.1 mg PO BID [facility]; Protocol Last Admin: 04/21/25 08:26 Dose: 0.1 mg Documented By: SUZIE Enoxaparin Sodium (Enoxaparin Sodium 40 Mg/0.4 Ml Syringe) 40 mg SUBCUT Q24H [facility] Last Admin: 04/21/25 08:40 Dose: Not Given Documented By: SUZIE Non-Admin Reason: Physician Held Med Folic Acid (Folic Acid 1 Mg Tablet) 1 mg PO DAILY [facility] Last Admin: 04/21/25 08:27 Dose: 1 mg Documented By: SUZIE Gabapentin (Gabapentin 300 Mg Capsule) 300 mg PO TID [facility] Last Admin: 04/21/25 08:26 Dose: 300 mg Documented By: SUZIE Hydromorphone HCl (Hydromorphone Hcl 1 Mg/Ml Syringe) 1 mg IVPUSH Q4H PRN; Protocol PRN Reason: 30m prior to wound care Last Admin: 04/20/25 11:24 Dose: 1 mg Documented By: RONALDMBSTACY Hydromorphone HCl (Hydromorphone Hcl 2 Mg Tablet) 4 mg PO Q3H PRN PRN Reason: Pain, Severe (Pain Scale 7-10) Last Admin: 04/21/25 08:27 Dose: 4 mg Documented By: SUZIE Vancomycin HCl 1,000 mg/ (Sodium Chloride) 270 mls @ 270 mls/hr IV Q12H [facility] Last Infusion: 04/21/25 00:33 Dose: Infused Documented By: DESMOND Magnesium Hydroxide (Milk Of Magnesia 30 Ml Oral.Susp) 30 ml PO DAILY PRN PRN Reason: Constipation Melatonin (Melatonin 3 Mg Tablet) 6 mg PO BEDTIME PRN PRN Reason: Insomnia Methadone HCl (Methadone Hcl 20 Mg/2 Ml Oral.Conc) 90 mg PO DAILY@0800 [facility] Last Admin: 04/21/25 08:34 Dose: 90 mg Documented By: SUZIE Co-signed By: SHYAM Methadone HCl (Methadone Hcl 20 Mg/2 Ml Oral.Conc) 45 mg PO DAILY@2100 [facility] Last Admin: 04/20/25 21:17 Dose: 45 mg Documented By: DESMOND Co-signed By: FRANKY Multivitamins/Vitamin C (Multivitamin Tablet) 1 tab PO DAILY [facility] Last Admin: 04/21/25 08:27 Dose: 1 tab Documented By: SUZIE Naloxone HCl (Naloxone Hcl 0.4 Mg/Ml Vial) 0.1 mg IVPUSH Q5M PRN PRN Reason: Opiate Reversal Pharmacy Consult (Consult Rx Vancomycin Dosing) 1 each MISCELLANE DAILY PRN PRN Reason: Consult order Stop: 05/09/25 09:00 Senna/Docusate Sodium (Sennosides/Docusate Sodium Tablet) 1 tab PO BEDTIME [facility] Last Admin: 04/20/25 21:17 Dose: 1 tab Documented By: DESMOND Sodium Chloride (0.9 % Sodium Chloride Flush 3 Ml Syringe) 3 ml IVFLUSH QSHIFT [facility] Last Admin: 04/21/25 08:41 Dose: 3 ml Documented By: SUZIE Thiamine HCl (Thiamine Hcl 100 Mg Tablet) 100 mg PO DAILY [facility] Last Admin: 04/21/25 08:27 Dose: 100 mg Documented By: SUZIE <Berta Be PA-C - Last Filed: 04/21/25 10:28> Labs CBC & Chem 7: 04/21/25 08:50 04/21/25 05:39 <Berta Be PA-C - Last Filed: 04/21/25 10:28> Labs: Laboratory Results - last 24 hr 04/20/25 04/21/25 04/21/25 21:14 05:39 08:50 MCV 89.5 MCH 29.4 MCHC 32.8 RDW 15.4 Plt Count 449 H D MPV 9.3 L Absolute Nucleated RBC 0.000 Nucleated RBC % (auto) 0.0 Estim Creat Clear Calc 96.5 Estimated GFR > 60 Random Vancomycin 13.2 L Blood Type A Positive Antibody Screen NEGATIVE <CONNER Scruggs Last Filed: 04/21/25 10:28> Procedures Date of Service Date of Service: 04/21/25 <Berta Be PA-C - Last Filed: 04/21/25 10:28> 04/21/25 <Dylan Stephenson MD - Last Filed: 04/21/25 14:35> Progress Note: A&P Assessment and plan (1) Open wound of right upper extremity: Status: Acute <Berta Be PA-C - Last Filed: 04/21/25 10:28> Assessment and Plan: Wound vac in place with good seal. Plan for wound vac change to right upper extremity and right chest in the OR with sedation today. Patient is NPO. All questions answered. <Berta Be PA-C - Last Filed: 04/21/25 10:28> Wound vac in place with good seal. Plan for wound vac change to right upper extremity and right chest in the OR with sedation today. Patient is NPO. All questions answered. I reviewed the procedure, risks, and alternatives in detail and she gives consent to a wound VAC change and partial closure of the open wounds. <Dylan Stephenson MD - Last Filed: 04/21/25 14:35> Time Spent With Patient Time: Total time managing care of this patient today ____ minutes. <Berta Be PA-C - Last Filed: 04/21/25 10:28> Quality Stroke Does the patient have a stroke diagnosis?: No <Berta Be PA-C - Last Filed: 04/21/25 10:28> VTE Prior VTE?: No <Berta Be PA-C - Last Filed: 04/21/25 10:28> VTE Risk Level:: Medical - moderate - high <Berta Be PA-C - Last Filed: 04/21/25 10:28> VTE Device Contraindication: Treatment Not Indicated <Berta Be PA-C - Last Filed: 04/21/25 10:28> VTE Drug Contraindication: N/A - Med Ordered <Berta Be PA-C - Last Filed: 04/21/25 10:28>
--- NOTE | 2025-04-21 10:39 | PC.NURSE ---
Pt alert and oriented. Pt has been calm and cooperative so far this shift. Got scheduled methadone and prn pain medication (dilaudid 4mg po) this morning. Plan to go to O.R. for wound debridement and changing of wound vac dressing.
--- NOTE | 2025-04-21 11:26 | MHC.CM.PN ---
Patient not medically cleared for dc. Plan for wound vac dressing change in OR today. Updates sent to Tammy, who continues to follow and can continue IV pain meds w/ dressing changes on dc.
[2025-04-21 13:01] LABS: UPreg QC Valid YES
--- NOTE | 2025-04-21 13:08 | PC.NURSE ---
spoke to brittnee villafana on the floor regarding patients tlc right jugular. patient stated they have been using it for meds and fluids but they are unable to remove blood draws. meaning no blood return. brittnee villafana will get in touch with hospitalist on the floor to to verify that the tlc is still good to use. no swelling noted to neck area. came down with antibiotic infusing patently. md gilman aware no complaints ok to proceed with procedure.
--- NOTE | 2025-04-21 14:23 | P.PNIM_ITS ---
Subjective Subjective Date of Service: 04/21/25 Interval History: f/u on MRSA sepsis and bacteremia no new issues, awaiting disposition Physical Exam 2 Exam: Exam: General: A&O x3, oriented to time place person and situation, comfortable; in pain. Cardiac: S1, S2 auscultated with no S3/4, no MRG. Well perfused. Respiratory: Normal breath sounds auscultated throughout all lung zones, without wheezing, rales. Normal rate. GI/ : No abdominal pain on palpation, no masses or distentions. MSK: Multiple extensive open/ packed surgical wounds - RUE (medial shoulder to medial antecubital fossa), anterior chest roberto wound, LUE would proximal to antecub. fossa; Wound vac placed today over right upper extremity and right ant chest roberto wound. Right IJ triple lumen Neurological: Normal neurological examination on overview, without obvious CN II-XII abnormalities. Vital Signs: Vital Signs: Last Vital Signs Temp 97.7 F 04/21/25 12:42 Pulse 63 04/21/25 12:42 Resp 18 04/21/25 12:42 BP 132/81 04/21/25 12:42 Pulse Ox 97 04/21/25 12:42 O2 Del Method Room Air 04/21/25 12:42 Objective Data Active Medications Acetaminophen (Acetaminophen 325 Mg Tablet) 650 mg PO Q6H PRN PRN Reason: Pain, Mild 1-3,fever,headache Last Admin: 04/20/25 14:30 Dose: 650 mg Documented By: ABDIRASHID Albuterol Sulfate (Albuterol Sulfate (0.083%) 2.5 Mg/3 Ml Vial.Neb) 2.5 mg INHALE Q4H PRN PRN Reason: Wheezing Baclofen (Baclofen 10 Mg Tablet) 10 mg PO TID [facility] Last Admin: 04/21/25 08:27 Dose: 10 mg Documented By: SUZIE Bisacodyl (Bisacodyl 10 Mg Supp.Rect) 10 mg SC BEDTIME PRN PRN Reason: Constipation Calcium Carbonate (Calcium Carbonate 750 Mg Tab.Chew) 750 mg PO Q4H PRN PRN Reason: Heartburn Clonidine HCl (Clonidine Hcl 0.1 Mg Tablet) 0.1 mg PO BID [facility]; Protocol Last Admin: 04/21/25 08:26 Dose: 0.1 mg Documented By: SUZIE Enoxaparin Sodium (Enoxaparin Sodium 40 Mg/0.4 Ml Syringe) 40 mg SUBCUT Q24H [facility] Last Admin: 04/21/25 08:40 Dose: Not Given Documented By: SUZIE Non-Admin Reason: Physician Held Med Folic Acid (Folic Acid 1 Mg Tablet) 1 mg PO DAILY [facility] Last Admin: 04/21/25 08:27 Dose: 1 mg Documented By: SUZIE Gabapentin (Gabapentin 300 Mg Capsule) 300 mg PO TID [facility] Last Admin: 04/21/25 08:26 Dose: 300 mg Documented By: SUZIE Hydromorphone HCl (Hydromorphone Hcl 1 Mg/Ml Syringe) 1 mg IVPUSH Q4H PRN; Protocol PRN Reason: 30m prior to wound care Last Admin: 04/20/25 11:24 Dose: 1 mg Documented By: TROMBSTACY Hydromorphone HCl (Hydromorphone Hcl 2 Mg Tablet) 4 mg PO Q3H PRN PRN Reason: Pain, Severe (Pain Scale 7-10) Last Admin: 04/21/25 11:53 Dose: 4 mg Documented By: SUZIE Vancomycin HCl 1,000 mg/ (Sodium Chloride) 270 mls @ 270 mls/hr IV Q12H [facility] Last Infusion: 04/21/25 13:08 Dose: Infused Documented By: SUZIE Lactated Ringer's (Lr) 500 mls @ 20 mls/hr IVCONT .Q24H [facility] Acetaminophen (Ofirmev) 1,000 mg in 100 mls @ 400 mls/hr IV ONCE PRE DISCHARGE PRN PRN Reason: Pre Discharge Stop: 04/21/25 19:42 Magnesium Hydroxide (Milk Of Magnesia 30 Ml Oral.Susp) 30 ml PO DAILY PRN PRN Reason: Constipation Melatonin (Melatonin 3 Mg Tablet) 6 mg PO BEDTIME PRN PRN Reason: Insomnia Methadone HCl (Methadone Hcl 20 Mg/2 Ml Oral.Conc) 90 mg PO DAILY@0800 [facility] Last Admin: 04/21/25 08:34 Dose: 90 mg Documented By: SUZIE Co-signed By: SHYAM Methadone HCl (Methadone Hcl 20 Mg/2 Ml Oral.Conc) 45 mg PO DAILY@2100 [facility] Last Admin: 04/20/25 21:17 Dose: 45 mg Documented By: DESMOND Co-signed By: FRANKY Multivitamins/Vitamin C (Multivitamin Tablet) 1 tab PO DAILY [facility] Last Admin: 04/21/25 08:27 Dose: 1 tab Documented By: SUZIE Naloxone HCl (Naloxone Hcl 0.4 Mg/Ml Vial) 0.1 mg IVPUSH Q5M PRN PRN Reason: Opiate Reversal Naloxone HCl (Naloxone Hcl 0.4 Mg/Ml Vial) 0.04 mg IVPUSH Q5M PRN PRN Reason: Excessive sedation or RR < 8 Ondansetron HCl (Ondansetron Hcl 4 Mg/2 Ml Vial) 4 mg IVPUSH ONCE PRN PRN Reason: Nausea and Vomiting Stop: 04/21/25 19:42 Pharmacy Consult (Consult Rx Vancomycin Dosing) 1 each MISCELLANE DAILY PRN PRN Reason: Consult order Stop: 05/09/25 09:00 Senna/Docusate Sodium (Sennosides/Docusate Sodium Tablet) 1 tab PO BEDTIME [facility] Last Admin: 04/20/25 21:17 Dose: 1 tab Documented By: DESMOND Sodium Chloride (0.9 % Sodium Chloride Flush 3 Ml Syringe) 3 ml IVFLUSH QSHIFT [facility] Last Admin: 04/21/25 08:41 Dose: 3 ml Documented By: SUZIE Thiamine HCl (Thiamine Hcl 100 Mg Tablet) 100 mg PO DAILY [facility] Last Admin: 04/21/25 08:27 Dose: 100 mg Documented By: SUZIE Labs 04/21/25 08:50 04/21/25 05:39 Labs: Laboratory Results - last 24 hr 04/20/25 04/21/25 04/21/25 21:14 05:39 08:50 MCV 89.5 MCH 29.4 MCHC 32.8 RDW 15.4 Plt Count 449 H D MPV 9.3 L Absolute Nucleated RBC 0.000 Nucleated RBC % (auto) 0.0 Estim Creat Clear Calc 96.5 Estimated GFR > 60 Urine Test Random Vancomycin 13.2 L Blood Type A Positive Antibody Screen NEGATIVE 04/21/25 12:48 MCV MCH MCHC RDW Plt Count MPV Absolute Nucleated RBC Nucleated RBC % (auto) Estim Creat Clear Calc Estimated GFR Urine Test NEGATIVE Random Vancomycin Blood Type Antibody Screen Assessment and Plan (1) Substance use disorder: Status: Acute (2) Depression: Status: Acute (3) Anxiety: Status: Acute (4) IV drug abuse: Status: Acute (5) Opioid use disorder, severe, dependence: Status: Acute (6) GERD (gastroesophageal reflux disease): Status: Acute (7) Cellulitis: Status: Acute (8) Sepsis: Status: Acute (9) Abscess of right upper arm and forearm: Status: Acute (10) Abscess of left upper arm and forearm: Status: Acute (11) Myositis: Status: Acute (12) Open wound of right upper extremity: Status: Acute (13) Open wound of left upper arm: Status: Acute (14) Fasciitis: Status: Acute Plan 34 yo female with PMH IVDU c/b hx overdose on methadone, xylozene infection L forearm, depression/ anxiety uses xanax and clonidine off the street, presents with swelling of right upper extremity, admitted 04/02-04/06 with sepsis 2/2 right upper extremity abscess and cellulitis with myositis 2/2 IVDU s/p I&D R shoulder - transferred to [facility] for extensive debridement and I&Ds of multiple bilateral UE abscesses - transfered to [facility] for continued management. Sepsis - MRSA+ve Bilateral upper extremity abscesses Bilateral upper extremity cellulitis Bilateral upper extremity fasciitis Bilateral upper extremity myositis IVDU Venous Access issues; right triple lumen IJ Patient met criteria for sepsis on admission 04/02; noting bandemia 41, lactic acid 2.7 down to 1.8 after IV fluids, tachycardia. ESR and CRP both elevated. CT of the right upper extremity confirms cellulitis with extensive myositis and developing ill-defined abscess at the level of the shoulder with reactive right axillary adenopathy. S/P I&D by general surgery 04/03/25 - no complications No evidence on TTE valvular vegetation. Possible micro seeding. Re-evaluation with CT right and left upper extremities for evidence of infective endocarditis/septic emboli; revealing extensive evidence of abscesses, phlegmon, tenosynoviitis and superimposed fasciitis, myositis and possible tissue necrosis - please see CT report for specifics. Surgery reports that burden of disease is extensive, requiring higher level of care - transferred to [facility] - s/p I&D of RUE and LUE; 04/08/25 - RUE biceps & triceps abscesses - Left AC fossa abscess Currently on: - Vancomycin (end dose 05/07/25) - Clindamycin (end dose 04/15/25) - Post vancomycin, start Doxycyline (05/08-05/22/25) Last negative culture: 04/09/25 Patient has right triple lumen IJ - needs to be replaced - planning for tunneled cath right vs left subclavian PLAN - Vancomycin (end dose 05/07/25) - Clindamycin (end dose 04/15/25) - Post vancomycin, start Doxycyline (05/08-05/22/25) - wound care consultation placed - general surgery consultation placed - Dilaudid 4 mg q.3h hourly - Dilaudid 1 mg q.1h hourly p.r.n. ; 30 minutes prior to wound cleaning - Packing changes to right upper extremity and right chest wall with to dry saline moistured Kerlix gauze, cover with Kerlix wrap followed by Osbaldo wraps - Left upper extremity has a retained needles from patient's injections prior to admission, DO NOT PACK THIS WOUND WITH FINGERS MOST USE INSTRUMENTS, either Luda forcepts etc - Patient has right triple lumen IJ - needs to be replaced - planning for tunneled cath right vs left subclavian Acute blood loss anemia S/p hematoma w/ clot evacuation 04/08/2025 Anemia s/p 1UPRBC transfusion at [facility]. Hemoglobin decreased to 6.7 mg/dL today. Type and screen and blood consent forms were signed 2 unit PRBC was administered with the patient without complication 04/18/25 UTE - heroin/fentanyl - cocaine Patient normally on methadone 130 mg per day, confirmed with Addiction medicine services Continue Methadone Addiction medicine consultation for reccs re; pain management outpatient setting Patient has been found to be using illicit substances during hospital stay. These items have been confiscated Discussed with the patient policy implementation: - no visitor policy currently in effect - items dropped off from family members/friends/visitors need to be searched by security - continue video monitoring in room - addiction medicine consultation Mild hyponatremia - resolved Hypokalemia - Trend BMP daily GERD - Protonix b.i.d. - Monitor H&H Constipation - Milk of magnesia QUALITY [employer] - VTE: Enoxaparin - CODE STATUS: Full code - DIET: Regular Total time managing care of this patient today: 35 minutes. Quality Stroke Does the patient have a stroke diagnosis?: No VTE Prior VTE?: No VTE Risk Level:: Medical - moderate - high VTE Device Contraindication: Treatment Not Indicated VTE Drug Contraindication: N/A - Med Ordered
--- NOTE | 2025-04-21 14:30 | P.OP_ITS ---
Operative Note Operative Note Date of Service: 04/21/25 Narrative: Preoperative diagnosis: Abscess right upper arm and forearm, chest wall Postoperative diagnosis: Same Procedure: Wound VAC change partial closure of open wound right upper arm and chest wall. Surgeon: Dylan Stephenson MD Record Pressman: None Anesthesia: General LMA Indications for procedure: 34-year-old female patient presenting with a large abscess involving the right upper extremity, s/p wide drainage performed at [facility] returning to [facility] for wound care. Wound VAC has been placed but because of severe pain with a previous wound VAC change, the current dressing changes being performed under anesthesia Operative findings: Good granulation tissue noted throughout the open wounds. The chest wound and biceps wound were partially closed using interrupted 3-0 nylon sutures. Specimen: None Estimated blood loss: 20 mL Complications: None Procedure details: Patient was brought to the OR and placed in a supine position. After administering general anesthesia the patient's arm and chest wall were prepped with Betadine and draped in a sterile fashion. A surgical time-out was called the consent confirmed. The patient has been on antibiotics. Venodyne boots were in place. Local anesthesia consisting of 0.5% Sensorcaine was infiltrated circumferentially around the wounds. No debridement was required at this time. The upper portion of the biceps wound and chest wound were closed at the margin slightly using a 3-0 nylon suture. Black sponge was then cut to size and placed in all wounds were then bridged to include all 3 wounds into 1 suctioned. Wound VAC was then connected and good suction obtained. No leaks could be identified. The patient tolerated the procedure well. Sponge, instrument, and needle counts reported as correct. The patient was transferred to PACU in stable condition.
--- NOTE | 2025-04-21 18:12 | HO.WOUND ---
Wound Consult: Follow up 34yr old?female admitted to [facility] on 04/14/25 21:20- See progress notes and H&P for detailed history.? Wound consult placed by general surgery team to assess alarming wound vac after OR removal and replacement.? Patient agreeable to assessment and photo documentation.? Arrival to pre-op patient was in transition to unit - met pt on unit and noted Negative Pressure Wound Therapy to be alarming with Blockage . Trouble shooting completed by this rewriter including Canister adjustment, on off, reinforcement of dressing. Right posterior site dressing change outside of Wound vac dressing ensuring it was not generating a leak and Track pad change, blockage alarm remained. New canister and New wound vac obtained by general surgery PABerta applied and no alarms noted. Direct care team to tag the device for fixing. Left arm ac dressing changed and packed with Hydrofera blue and foam dressing, ABD pad and elastic netting. No new topical recommendations needed at this time. Continue with NPWT at 125 low and continuous. Set for OR Wound Vac cange on with General Surgery team.
--- NOTE | 2025-04-21 22:20 | HE.PHANOTE ---
VANCO DOSE ADJUSTMENT BASED ON SCR AND TROUGH OF 13.7 DOSE CONTINUED AT 1000 Q 12H. NEXT LEVEL AT 04/23 @ 2100
[2025-04-21] MEDS: methADONE HCl 20 MG/2 ML ORAL.CONC 45 MG PO (22:36)
--- NOTE | 2025-04-22 02:49 | PC.NURSE ---
This RN assumed care of patient at 19:00. Patient is A&Ox4, calm, cooperative. Has been in her room resting. Still with complaints of pain and being medicated per MAR. Patient currently asleep, respirations even & unlabored.
[2025-04-22 04:00] VITALS: BP 139/57; PULSE 62; RESP 18; TEMP 36.4; O2SAT 96
[2025-04-22 08:02] VITALS: BP 132/66; PULSE 56; RESP 12; TEMP 36.3; O2SAT 96
--- NOTE | 2025-04-22 08:25 | PM.PNGS ---
Subjective Subjective Date of Service: 04/22/25 Interval history: No problems with the wound vac overnight. Remains in place with good seal. Reports mild continued pain with wound vac in place. Physical Exam Vital Signs: Vital Signs: Last Vital Signs Temp 97.4 F 04/22/25 08:02 Pulse 56 04/22/25 08:02 Resp 12 04/22/25 08:02 BP 132/66 04/22/25 08:02 Pulse Ox 96 04/22/25 08:02 O2 Del Method Room Air 04/22/25 08:02 Const: General: comfortable, no acute distress and alert Orientation/consciousness: patient oriented x3 Resp: Effort & Inspection: normal respiratory effort Skin: Other: wound vac in place to right upper extremity and chest serosanguineous drainage Neuro: General: patient oriented x3 and moves all extremities Objective Data Active Medications Acetaminophen (Acetaminophen 325 Mg Tablet) 650 mg PO Q6H PRN PRN Reason: Pain, Mild 1-3,fever,headache Last Admin: 04/20/25 14:30 Dose: 650 mg Documented By: ABDIRASHID Baclofen (Baclofen 10 Mg Tablet) 10 mg PO TID [facility] Last Admin: 04/21/25 22:36 Dose: 10 mg Documented By: DESMOND Bisacodyl (Bisacodyl 10 Mg Supp.Rect) 10 mg LA BEDTIME PRN PRN Reason: Constipation Calcium Carbonate (Calcium Carbonate 750 Mg Tab.Chew) 750 mg PO Q4H PRN PRN Reason: Heartburn Clonidine HCl (Clonidine Hcl 0.1 Mg Tablet) 0.1 mg PO BID [facility]; Protocol Last Admin: 04/21/25 22:36 Dose: 0.1 mg Documented By: DESMOND Enoxaparin Sodium (Enoxaparin Sodium 40 Mg/0.4 Ml Syringe) 40 mg SUBCUT Q24H [facility] Last Admin: 04/21/25 08:40 Dose: Not Given Documented By: SUZIE Non-Admin Reason: Physician Held Med Folic Acid (Folic Acid 1 Mg Tablet) 1 mg PO DAILY [facility] Last Admin: 04/21/25 08:27 Dose: 1 mg Documented By: SUZIE Gabapentin (Gabapentin 300 Mg Capsule) 300 mg PO TID [facility] Last Admin: 04/21/25 22:36 Dose: 300 mg Documented By: DESMOND Hydromorphone HCl (Hydromorphone Hcl 1 Mg/Ml Syringe) 1 mg IVPUSH Q4H PRN; Protocol PRN Reason: 30m prior to wound care Last Admin: 04/21/25 15:32 Dose: 1 mg Documented By: SUZIE Hydromorphone HCl (Hydromorphone Hcl 2 Mg Tablet) 4 mg PO Q3H PRN PRN Reason: Pain, Severe (Pain Scale 7-10) Last Admin: 04/22/25 05:41 Dose: 4 mg Documented By: DESMOND Vancomycin HCl 1,000 mg/ (Sodium Chloride) 270 mls @ 270 mls/hr IV Q12H [facility] Last Infusion: 04/22/25 01:00 Dose: Infused Documented By: DESMOND Magnesium Hydroxide (Milk Of Magnesia 30 Ml Oral.Susp) 30 ml PO DAILY PRN PRN Reason: Constipation Melatonin (Melatonin 3 Mg Tablet) 6 mg PO BEDTIME PRN PRN Reason: Insomnia Methadone HCl (Methadone Hcl 20 Mg/2 Ml Oral.Conc) 90 mg PO DAILY@0800 [facility] Last Admin: 04/21/25 08:34 Dose: 90 mg Documented By: SUZIE Co-signed By: SHYAM Methadone HCl (Methadone Hcl 20 Mg/2 Ml Oral.Conc) 45 mg PO DAILY@2100 [facility] Last Admin: 04/21/25 22:36 Dose: 45 mg Documented By: DESMOND Co-signed By: JOAQUINA Multivitamins/Vitamin C (Multivitamin Tablet) 1 tab PO DAILY [facility] Last Admin: 04/21/25 08:27 Dose: 1 tab Documented By: SUZIE Naloxone HCl (Naloxone Hcl 0.4 Mg/Ml Vial) 0.1 mg IVPUSH Q5M PRN PRN Reason: Opiate Reversal Pharmacy Consult (Consult Rx Vancomycin Dosing) 1 each MISCELLANE DAILY PRN PRN Reason: Consult order Stop: 05/09/25 09:00 Senna/Docusate Sodium (Sennosides/Docusate Sodium Tablet) 1 tab PO BEDTIME [facility] Last Admin: 04/21/25 22:36 Dose: 1 tab Documented By: DESMOND Sodium Chloride (0.9 % Sodium Chloride Flush 3 Ml Syringe) 3 ml IVFLUSH QSHIFT [facility] Last Admin: 04/21/25 23:57 Dose: 3 ml Documented By: DESMOND Thiamine HCl (Thiamine Hcl 100 Mg Tablet) 100 mg PO DAILY [facility] Last Admin: 04/21/25 08:27 Dose: 100 mg Documented By: SUZIE Labs 04/21/25 08:50 04/21/25 05:39 Labs: Laboratory Results - last 24 hr 04/21/25 04/21/25 04/21/25 08:50 12:48 21:28 MCV 89.5 MCH 29.4 MCHC 32.8 RDW 15.4 Plt Count 449 H D MPV 9.3 L Absolute Nucleated RBC 0.000 Nucleated RBC % (auto) 0.0 Urine Test NEGATIVE Random Vancomycin 13.7 L Blood Type A Positive Antibody Screen NEGATIVE Procedures Date of Service Date of Service: 04/22/25 Progress Note: A&P Assessment and plan (1) Open wound of right upper extremity: Status: Acute (2) Encounter for management of wound VAC: Status: Acute Plan POD #1 s/p Wound VAC change partial closure of open wound right upper arm and chest wall. Wound vac remains in place with good seal. Serosanguineous output. Plan for wound vac change under anesthesia on . Patient comortable with plan. Time Spent With Patient Time: Total time managing care of this patient today ____ minutes. Quality Stroke Does the patient have a stroke diagnosis?: No VTE Prior VTE?: No VTE Risk Level:: Medical - moderate - high VTE Device Contraindication: Treatment Not Indicated VTE Drug Contraindication: N/A - Med Ordered
--- NOTE | 2025-04-22 08:35 | HO.POSTANES ---
Post Anesthesia Evaluation Post Anesthesia Evaluation Date of Service: 04/22/25 Vital Signs: Vital Signs Temp Pulse Resp BP Pulse Ox O2 Del Method 04/22/25 08:02 97.4 F 56 12 132/66 96 Room Air 04/22/25 04:00 97.5 F 62 18 139/57 L 96 Room Air 04/21/25 23:42 97.6 F 62 18 157/68 H 96 Room Air Anesthesia: General Mental Status: Awake Pain Control: Satisfactory Nausea/Vomiting: None Hydration: Adequate Anesthesia-Related Issues: No Anes. Related Issues
[2025-04-22] MEDS: 0.9 % Sodium Chloride Flush 3 ML SYRINGE IVFLUSH ×2 (08:49→17:48)
[2025-04-22] MEDS: methADONE HCl 20 MG/2 ML ORAL.CONC 90 MG PO (08:53)
--- NOTE | 2025-04-22 11:28 | HO.PM.IMPN ---
Subjective Subjective Date of Service: 04/22/25 Interval History: f/u on MRSA sepsis and bacteremia and wound infection no new issues, awaiting disposition Physical Exam Exam: Exam: General: A&O x3, oriented to time place person and situation, comfortable; in pain. Cardiac: S1, S2 auscultated with no S3/4, no MRG. Well perfused. Respiratory: Normal breath sounds auscultated throughout all lung zones, without wheezing, rales. Normal rate. GI/ : No abdominal pain on palpation, no masses or distentions. MSK: Multiple extensive open/ packed surgical wounds - RUE (medial shoulder to medial antecubital fossa), anterior chest roberto wound, LUE would proximal to antecub. fossa; Wound vac placed today over right upper extremity and right ant chest roberto wound. Right IJ triple lumen Neurological: Normal neurological examination on overview, without obvious CN II-XII abnormalities. Vital Signs: Vital Signs: Last Vital Signs Temp 97.4 F 04/22/25 08:02 Pulse 56 04/22/25 08:02 Resp 12 04/22/25 08:02 BP 132/66 04/22/25 08:02 Pulse Ox 96 04/22/25 08:02 O2 Del Method Room Air 04/22/25 08:02 Objective Data Active Medications Acetaminophen (Acetaminophen 325 Mg Tablet) 650 mg PO Q6H PRN PRN Reason: Pain, Mild 1-3,fever,headache Last Admin: 04/20/25 14:30 Dose: 650 mg Documented By: ABDIRASHID Baclofen (Baclofen 10 Mg Tablet) 10 mg PO TID [facility] Last Admin: 04/22/25 08:49 Dose: 10 mg Documented By: SUZIE Bisacodyl (Bisacodyl 10 Mg Supp.Rect) 10 mg [place] BEDTIME PRN PRN Reason: Constipation Calcium Carbonate (Calcium Carbonate 750 Mg Tab.Chew) 750 mg PO Q4H PRN PRN Reason: Heartburn Clonidine HCl (Clonidine Hcl 0.1 Mg Tablet) 0.1 mg PO BID [facility]; Protocol Last Admin: 04/22/25 08:49 Dose: 0.1 mg Documented By: SUZIE Enoxaparin Sodium (Enoxaparin Sodium 40 Mg/0.4 Ml Syringe) 40 mg SUBCUT Q24H [facility] Last Admin: 04/22/25 08:49 Dose: 40 mg Documented By: SUZIE Folic Acid (Folic Acid 1 Mg Tablet) 1 mg PO DAILY [facility] Last Admin: 04/22/25 08:49 Dose: 1 mg Documented By: SUZIE Gabapentin (Gabapentin 300 Mg Capsule) 300 mg PO TID [facility] Last Admin: 04/22/25 08:49 Dose: 300 mg Documented By: SUZIE Hydromorphone HCl (Hydromorphone Hcl 1 Mg/Ml Syringe) 1 mg IVPUSH Q4H PRN; Protocol PRN Reason: 30m prior to wound care Last Admin: 04/21/25 15:32 Dose: 1 mg Documented By: SUZIE Hydromorphone HCl (Hydromorphone Hcl 2 Mg Tablet) 4 mg PO Q3H PRN PRN Reason: Pain, Severe (Pain Scale 7-10) Last Admin: 04/22/25 08:48 Dose: 4 mg Documented By: SUZIE Vancomycin HCl 1,000 mg/ (Sodium Chloride) 270 mls @ 270 mls/hr IV Q12H [facility] Last Infusion: 04/22/25 01:00 Dose: Infused Documented By: DESMOND Magnesium Hydroxide (Milk Of Magnesia 30 Ml Oral.Susp) 30 ml PO DAILY PRN PRN Reason: Constipation Melatonin (Melatonin 3 Mg Tablet) 6 mg PO BEDTIME PRN PRN Reason: Insomnia Methadone HCl (Methadone Hcl 20 Mg/2 Ml Oral.Conc) 90 mg PO DAILY@0800 [facility] Last Admin: 04/22/25 08:53 Dose: 90 mg Documented By: SUZIE Co-signed By: CRISTOFER Methadone HCl (Methadone Hcl 20 Mg/2 Ml Oral.Conc) 45 mg PO DAILY@2100 [facility] Last Admin: 04/21/25 22:36 Dose: 45 mg Documented By: DESMOND Co-signed By: JOAQUINA Multivitamins/Vitamin C (Multivitamin Tablet) 1 tab PO DAILY [facility] Last Admin: 04/22/25 08:49 Dose: 1 tab Documented By: SUZIE Naloxone HCl (Naloxone Hcl 0.4 Mg/Ml Vial) 0.1 mg IVPUSH Q5M PRN PRN Reason: Opiate Reversal Pharmacy Consult (Consult Rx Vancomycin Dosing) 1 each MISCELLANE DAILY PRN PRN Reason: Consult order Stop: 05/09/25 09:00 Senna/Docusate Sodium (Sennosides/Docusate Sodium Tablet) 1 tab PO BEDTIME [facility] Last Admin: 04/21/25 22:36 Dose: 1 tab Documented By: DESMOND Sodium Chloride (0.9 % Sodium Chloride Flush 3 Ml Syringe) 3 ml IVFLUSH QSHIFT [facility] Last Admin: 04/22/25 08:49 Dose: 3 ml Documented By: SUZIE Thiamine HCl (Thiamine Hcl 100 Mg Tablet) 100 mg PO DAILY [facility] Last Admin: 04/22/25 08:49 Dose: 100 mg Documented By: SUZIE Labs 04/21/25 08:50 04/21/25 05:39 Labs: Laboratory Results - last 24 hr 04/21/25 04/21/25 12:48 21:28 Urine Test NEGATIVE Random Vancomycin 13.7 L Assessment and Plan (1) Substance use disorder: Status: Acute (2) Depression: Status: Acute (3) Anxiety: Status: Acute (4) IV drug abuse: Status: Acute (5) Opioid use disorder, severe, dependence: Status: Acute (6) GERD (gastroesophageal reflux disease): Status: Acute (7) Cellulitis: Status: Acute (8) Sepsis: Status: Acute (9) Abscess of right upper arm and forearm: Status: Acute (10) Abscess of left upper arm and forearm: Status: Acute (11) Myositis: Status: Acute (12) Open wound of right upper extremity: Status: Acute (13) Open wound of left upper arm: Status: Acute (14) Fasciitis: Status: Acute Plan This is a 34-year-old female with a history of intravenous drug use (IVDU), prior methadone overdose, xylazine-associated left forearm infection, depression/anxiety (self-medicating with street-purchased Xanax and clonidine), and substance use disorder (heroin/fentanyl, cocaine). She presents for ongoing management of severe bilateral upper extremity infections and complications following recent hospitalizations. The patient was initially admitted on 04/02/25 with sepsis secondary to a right upper extremity abscess and cellulitis with myositis, related to IVDU. She underwent incision and drainage (I&D) of the right shoulder and was transferred to [facility] for further extensive debridement and I&D of multiple bilateral upper extremity abscesses. She returned to [facility] on 04/14/25 for continued care. Sepsis (MRSA-positive): Met sepsis criteria on 04/02 (bandemia 41%, lactic acid 2.7 ? 1.8 after fluids, tachycardia, elevated ESR/CRP). Blood cultures last negative on 04/09/25. No valvular vegetations on TTE; possible micro-seeding. Ongoing antibiotics: Vancomycin (through 05/07/25), Clindamycin (through 04/15/25), then Doxycycline (05/08?05/22/25). Bilateral Upper Extremity Infections: Abscesses, cellulitis, fasciitis, and myositis confirmed on imaging. Multiple I&Ds performed (RUE biceps/triceps, LUE antecubital fossa). Wound care and general surgery consults placed. Packing changes to RUE and right chest wall with saline-moistened Kerlix and Osbaldo wraps. LUE contains retained needle?packing only with instruments, not fingers. Venous Access: Right triple lumen IJ in place, needs replacement; planning for tunneled catheter (right or left subclavian). Acute Blood Loss Anemia: S/p hematoma with clot evacuation (04/08/25). Received 1 unit PRBC at [place]; Hgb dropped to 6.7 mg/dL today. Received 2 units PRBC on 04/18/25 without complication. Monitor H&H. Substance Use Disorder: On methadone 130 mg daily (confirmed with addiction medicine). Addiction medicine consult for pain management and outpatient planning. Found using illicit substances during admission; items confiscated. Policy: No visitors, all items searched, video monitoring continued. Electrolyte Abnormalities: Mild hyponatremia (resolved). Hypokalemia?trend BMP daily. Other Chronic Issues: GERD: Protonix BID. Constipation: Milk of magnesia as needed. Continue current antibiotics as scheduled. Replace right IJ with tunneled catheter Continue wound care and surgical follow-up. Continue methadone; addiction medicine consult for pain and substance use management. Maintain current safety and monitoring protocols. Monitor labs, electrolytes, and hemoglobin/hematocrit. Supportive care for GERD and constipation. Quality Metrics: VTE prophylaxis: Enoxaparin Code status: Full code Diet: Regular Total time managing care of this patient today: 35 minutes. Quality Stroke Does the patient have a stroke diagnosis?: No VTE Prior VTE?: No VTE Risk Level:: Medical - moderate - high VTE Device Contraindication: Treatment Not Indicated VTE Drug Contraindication: N/A - Med Ordered
[2025-04-22 12:00] VITALS: BP 164/87; PULSE 72; RESP 18; TEMP 36.1; O2SAT 96
--- NOTE | 2025-04-22 13:30 | HO.WOUND ---
Wound Consult: Follow up 34yr old?female admitted to [facility] on 04/14/25 21:20- See progress notes and H&P for detailed history.? Wound consult follow up for left AC and right arm and chest wound vac.? Patient agreeable to assessment and photo documentation.? NPWT alarms reviewed one alarm noted just prior to my arrival and quick restart noted. No concern for leak or bloackage at this time. Patient reports wound vac is tolerable. Plan for wound vac change in OR on with General Surgery team. Left arm ac dressing changed and packed with Hydrofera blue and foam dressing, ABD pad and elastic netting. No new topical recommendations needed at this time. Continue with NPWT at 125 low and continuous. Set for OR Wound Vac change on with General Surgery team.
[2025-04-22 15:53] VITALS: BP 142/64; PULSE 61; RESP 18; TEMP 36.1; O2SAT 93
[2025-04-22 19:45] VITALS: BP 149/65; PULSE 63; RESP 18; TEMP 36.3; O2SAT 96
[2025-04-22] MEDS: methADONE HCl 20 MG/2 ML ORAL.CONC 45 MG PO (21:09)
[2025-04-22 23:57] VITALS: BP 144/64; PULSE 74; RESP 18; TEMP 36.4; O2SAT 97
[2025-04-23] MEDS: 0.9 % Sodium Chloride Flush 3 ML SYRINGE IVFLUSH ×3 (00:46→23:46)
[2025-04-23 03:36] VITALS: BP 128/60; PULSE 64; RESP 18; TEMP 36.3; O2SAT 95
--- NOTE | 2025-04-23 04:32 | PC.NURSE ---
Pt A&Ox4, calm & cooperative. Has been medicated for pain twice overnight but resting in bed otherwise. Wound vac functioning properly. All safety measures in place.
[2025-04-23 06:34] LABS: Creatinine Clr Calc Pharmacy 96.5; Estimated Glomerular Filt Rate > 60
[2025-04-23 08:00] VITALS: BP 149/96; PULSE 70; RESP 16; TEMP 36.2; O2SAT 98
[2025-04-23] MEDS: methADONE HCl 20 MG/2 ML ORAL.CONC 90 MG PO (08:57)
--- NOTE | 2025-04-23 09:51 | P.PNIM_ITS ---
Subjective Subjective Date of Service: 04/23/25 Interval History: f/u on MRSA sepsis and bacteremia and wound infection no new issues, awaiting disposition and is iritated with right IJ cath Physical Exam 2 Exam: Exam: General: A&O x3, oriented to time place person and situation, comfortable; in pain. Cardiac: S1, S2 auscultated with no S3/4, no MRG. Well perfused. Respiratory: Normal breath sounds auscultated throughout all lung zones, without wheezing, rales. Normal rate. GI/ : No abdominal pain on palpation, no masses or distentions. MSK: Multiple extensive open/ packed surgical wounds - RUE (medial shoulder to medial antecubital fossa), anterior chest roberto wound, LUE would proximal to antecub. fossa; Wound vac placed today over right upper extremity and right ant chest roberto wound. Right IJ triple lumen Neurological: Normal neurological examination on overview, without obvious CN II-XII abnormalities. Vital Signs: Vital Signs: Last Vital Signs Temp 97.1 F 04/23/25 08:00 Pulse 70 04/23/25 08:00 Resp 16 04/23/25 08:00 BP 149/96 H 04/23/25 08:00 Pulse Ox 98 04/23/25 08:00 O2 Del Method Room Air 04/23/25 08:00 Objective Data Active Medications Acetaminophen (Acetaminophen 325 Mg Tablet) 650 mg PO Q6H PRN PRN Reason: Pain, Mild 1-3,fever,headache Last Admin: 04/20/25 14:30 Dose: 650 mg Documented By: ABDIRASHID Baclofen (Baclofen 10 Mg Tablet) 10 mg PO TID [facility] Last Admin: 04/23/25 08:59 Dose: 10 mg Documented By: EDDA Bisacodyl (Bisacodyl 10 Mg Supp.Rect) 10 mg SC BEDTIME PRN PRN Reason: Constipation Calcium Carbonate (Calcium Carbonate 750 Mg Tab.Chew) 750 mg PO Q4H PRN PRN Reason: Heartburn Clonidine HCl (Clonidine Hcl 0.1 Mg Tablet) 0.1 mg PO BID [facility]; Protocol Last Admin: 04/23/25 09:00 Dose: 0.1 mg Documented By: EDDA Enoxaparin Sodium (Enoxaparin Sodium 40 Mg/0.4 Ml Syringe) 40 mg SUBCUT Q24H [facility] Last Admin: 04/23/25 09:00 Dose: 40 mg Documented By: EDDA Folic Acid (Folic Acid 1 Mg Tablet) 1 mg PO DAILY [facility] Last Admin: 04/23/25 08:59 Dose: 1 mg Documented By: EDDA Gabapentin (Gabapentin 300 Mg Capsule) 300 mg PO TID [facility] Last Admin: 04/23/25 08:59 Dose: 300 mg Documented By: EDDA Hydromorphone HCl (Hydromorphone Hcl 1 Mg/Ml Syringe) 1 mg IVPUSH Q4H PRN; Protocol PRN Reason: 30m prior to wound care Last Admin: 04/21/25 15:32 Dose: 1 mg Documented By: SUZIE Hydromorphone HCl (Hydromorphone Hcl 2 Mg Tablet) 4 mg PO Q3H PRN PRN Reason: Pain, Severe (Pain Scale 7-10) Last Admin: 04/23/25 08:57 Dose: 4 mg Documented By: EDDA Vancomycin HCl 1,000 mg/ (Sodium Chloride) 270 mls @ 270 mls/hr IV Q12H [facility] Last Infusion: 04/23/25 01:58 Dose: Infused Documented By: DESMOND Magnesium Hydroxide (Milk Of Magnesia 30 Ml Oral.Susp) 30 ml PO DAILY PRN PRN Reason: Constipation Melatonin (Melatonin 3 Mg Tablet) 6 mg PO BEDTIME PRN PRN Reason: Insomnia Methadone HCl (Methadone Hcl 20 Mg/2 Ml Oral.Conc) 90 mg PO DAILY@0800 [facility] Last Admin: 04/23/25 08:57 Dose: 90 mg Documented By: EDDA Co-signed By: SHASHANK Methadone HCl (Methadone Hcl 20 Mg/2 Ml Oral.Conc) 45 mg PO DAILY@2100 [facility] Last Admin: 04/22/25 21:09 Dose: 45 mg Documented By: DESMOND Co-signed By: SLIME Multivitamins/Vitamin C (Multivitamin Tablet) 1 tab PO DAILY [facility] Last Admin: 04/23/25 08:59 Dose: 1 tab Documented By: EDDA Naloxone HCl (Naloxone Hcl 0.4 Mg/Ml Vial) 0.1 mg IVPUSH Q5M PRN PRN Reason: Opiate Reversal Pharmacy Consult (Consult Rx Vancomycin Dosing) 1 each MISCELLANE DAILY PRN PRN Reason: Consult order Stop: 05/09/25 09:00 Senna/Docusate Sodium (Sennosides/Docusate Sodium Tablet) 1 tab PO BEDTIME [facility] Last Admin: 04/22/25 21:09 Dose: 1 tab Documented By: DESMOND Sodium Chloride (0.9 % Sodium Chloride Flush 3 Ml Syringe) 3 ml IVFLUSH QSHIFT [facility] Last Admin: 04/23/25 09:01 Dose: 3 ml Documented By: EDDA Thiamine HCl (Thiamine Hcl 100 Mg Tablet) 100 mg PO DAILY [facility] Last Admin: 04/23/25 09:00 Dose: 100 mg Documented By: EDDA Labs 04/21/25 08:50 04/23/25 05:37 Labs: Laboratory Results - last 24 hr 04/23/25 05:37 Estim Creat Clear Calc 96.5 Estimated GFR > 60 Assessment and Plan (1) Substance use disorder: Status: Acute (2) Depression: Status: Acute (3) Anxiety: Status: Acute (4) IV drug abuse: Status: Acute (5) Opioid use disorder, severe, dependence: Status: Acute (6) GERD (gastroesophageal reflux disease): Status: Acute (7) Cellulitis: Status: Acute (8) Sepsis: Status: Acute (9) Abscess of right upper arm and forearm: Status: Acute (10) Abscess of left upper arm and forearm: Status: Acute (11) Myositis: Status: Acute (12) Open wound of right upper extremity: Status: Acute (13) Open wound of left upper arm: Status: Acute (14) Fasciitis: Status: Acute Plan This is a 34-year-old female with a history of intravenous drug use (IVDU), prior methadone overdose, xylazine-associated left forearm infection, depression/anxiety (self-medicating with street-purchased Xanax and clonidine), and substance use disorder (heroin/fentanyl, cocaine). She presents for ongoing management of severe bilateral upper extremity infections and complications following recent hospitalizations. The patient was initially admitted on 04/02/25 with sepsis secondary to a right upper extremity abscess and cellulitis with myositis, related to IVDU. She underwent incision and drainage (I&D) of the right shoulder and was transferred to [facility] for further extensive debridement and I&D of multiple bilateral upper extremity abscesses. She returned to [facility] on 04/14/25 for continued care. Sepsis (MRSA-positive): Met sepsis criteria on 04/02 (bandemia 41%, lactic acid 2.7 ? 1.8 after fluids, tachycardia, elevated ESR/CRP). Blood cultures last negative on 04/09/25. No valvular vegetations on TTE; possible micro-seeding. Ongoing antibiotics: Vancomycin (through 05/07/25), Clindamycin (through 04/15/25), then Doxycycline (05/08?05/22/25). Bilateral Upper Extremity Infections: Abscesses, cellulitis, fasciitis, and myositis confirmed on imaging. Multiple I&Ds performed (RUE biceps/triceps, LUE antecubital fossa). Wound care and general surgery consults placed. Packing changes to RUE and right chest wall with saline-moistened Kerlix and Osbaldo wraps. LUE contains retained needle?packing only with instruments, not fingers. Venous Access: Right triple lumen IJ in place, needs replacement; planning for tunneled catheter (right or left subclavian). Acute Blood Loss Anemia: S/p hematoma with clot evacuation (04/08/25). Received 1 unit PRBC at [place]; Hgb dropped to 6.7 mg/dL today. Received 2 units PRBC on 04/18/25 without complication. Monitor H&H. Substance Use Disorder: On methadone 130 mg daily (confirmed with addiction medicine). Addiction medicine consult for pain management and outpatient planning. Found using illicit substances during admission; items confiscated. Policy: No visitors, all items searched, video monitoring continued--unless otherwise authorized Electrolyte Abnormalities: Mild hyponatremia (resolved). Hypokalemia?trend BMP daily. Other Chronic Issues: GERD: Protonix BID. Constipation: Milk of magnesia as needed. Continue current antibiotics as scheduled. Replac right IJ with tunneled catheter Continue wound care and surgical follow-up. Continue methadone; addiction medicine consult for pain and substance use management. Maintain current safety and monitoring protocols. Monitor labs, electrolytes, and hemoglobin/hematocrit. Supportive care for GERD and constipation. Quality Metrics: * VTE prophylaxis: Enoxaparin * Code status: Full code * Diet: Regular Total time managing care of this patient today: 35 minutes. Quality Stroke Does the patient have a stroke diagnosis?: No VTE Prior VTE?: No VTE Risk Level:: Medical - moderate - high VTE Device Contraindication: Treatment Not Indicated VTE Drug Contraindication: N/A - Med Ordered
--- NOTE | 2025-04-23 11:02 | MHC.CLN ---
NUTRITION DIET RX: REGULAR. ADDING ENURE MAX BID TO PROMOTE WOUND HEALING AND NUTRITIONAL INTAKE. SUPPLEMENT PROVIDES 300 KCALS, 60 G PROTEIN. PATIENT WITH WOUND VAC THAT REQUIRES CHANGING IN OR 3 TIMES/WEEK. PATIENT TO BE NPO OVERNIGHT ON THOSE DAYS. PO INTAKE APPEARS TO BE GOOD, USUALLY 75-100%. RD TO MONITOR WEEKLY.
--- NOTE | 2025-04-23 11:47 | HO.ADDICTPRO ---
Subjective Subjective Date of Service: 04/23/25 Reason For Visit: Medical Interim History: Patient seen in follow up for OUD Methadone dose 90mg AM and 45mg HS. She reports that this is helping helpful with pain, henri overnight. She continues with PRN dilaudid wound care/wound vac now under anesthesia due level of pain and inability to tolerate this at the bedside Patient reporting gratitude for this. Review of Systems Acute medical concerns: Yes Review of Systems Constitutional: Reports as per HPI and Reports no additional constitutional complaints Mental Status Exam Mental Status Exam Patient Appearance: Appropriate Level of Consciousness: Awake, Appropriate and Alert Patient Behavior: Appropriate, Talkative and Cooperative Affect Description: Calm Speech Pattern: Clear Thought Process: Intact Thought Content: positive for Intact Judgement: Good Diagnostics Vital Signs (24Hr): Vital Signs - 24 hr 04/22/25 12:00 04/22/25 15:53 04/22/25 19:45 Temperature 96.9 F 97.0 F 97.3 F Pulse Rate 72 61 63 Respiratory Rate 18 18 18 Blood Pressure 164/87 H 142/64 H 149/65 H Pulse Oximetry 96 93 96 Oxygen Delivery Method Room Air Room Air Room Air 04/22/25 23:57 04/23/25 03:36 04/23/25 08:00 Temperature 97.6 F 97.4 F 97.1 F Pulse Rate 74 64 70 Respiratory Rate 18 18 16 Blood Pressure 144/64 H 128/60 149/96 H Pulse Oximetry 97 95 98 Oxygen Delivery Method Room Air Room Air Room Air Labs 04/21/25 08:50 04/23/25 05:37 Labs: Laboratory Results - last 48 hr 04/21/25 04/21/25 04/23/25 12:48 21:28 05:37 Creatinine 0.72 Estim Creat Clear Calc 96.5 Estimated GFR > 60 Urine Test NEGATIVE Random Vancomycin 13.7 L Imaging Radiology Impressions: ITS Impressions Elbow X-Ray 04/15/25 11:25 IMPRESSION: Medial soft tissue swelling. No metallic foreign body. Electronically signed by: Jose Padilla MD 04/15/2025 12:04 PM EDT Medications Medications Current Medications Acetaminophen (Acetaminophen 325 Mg Tablet) 650 mg PO Q6H PRN PRN Reason: Pain, Mild 1-3,fever,headache Last Admin: 04/20/25 14:30 Dose: 650 mg Baclofen (Baclofen 10 Mg Tablet) 10 mg PO TID [facility] Last Admin: 04/23/25 08:59 Dose: 10 mg Bisacodyl (Bisacodyl 10 Mg Supp.Rect) 10 mg SD BEDTIME PRN PRN Reason: Constipation Calcium Carbonate (Calcium Carbonate 750 Mg Tab.Chew) 750 mg PO Q4H PRN PRN Reason: Heartburn Clonidine HCl (Clonidine Hcl 0.1 Mg Tablet) 0.1 mg PO BID [facility]; Protocol Last Admin: 04/23/25 09:00 Dose: 0.1 mg Enoxaparin Sodium (Enoxaparin Sodium 40 Mg/0.4 Ml Syringe) 40 mg SUBCUT Q24H [facility] Last Admin: 04/23/25 09:00 Dose: 40 mg Folic Acid (Folic Acid 1 Mg Tablet) 1 mg PO DAILY [facility] Last Admin: 04/23/25 08:59 Dose: 1 mg Gabapentin (Gabapentin 300 Mg Capsule) 300 mg PO TID [facility] Last Admin: 04/23/25 08:59 Dose: 300 mg Hydromorphone HCl (Hydromorphone Hcl 1 Mg/Ml Syringe) 1 mg IVPUSH Q4H PRN; Protocol PRN Reason: 30m prior to wound care Last Admin: 04/21/25 15:32 Dose: 1 mg Hydromorphone HCl (Hydromorphone Hcl 2 Mg Tablet) 4 mg PO Q3H PRN PRN Reason: Pain, Severe (Pain Scale 7-10) Last Admin: 04/23/25 08:57 Dose: 4 mg Vancomycin HCl 1,000 mg/ (Sodium Chloride) 270 mls @ 270 mls/hr IV Q12H [facility] Last Infusion: 04/23/25 01:58 Dose: Infused Magnesium Hydroxide (Milk Of Magnesia 30 Ml Oral.Susp) 30 ml PO DAILY PRN PRN Reason: Constipation Melatonin (Melatonin 3 Mg Tablet) 6 mg PO BEDTIME PRN PRN Reason: Insomnia Methadone HCl (Methadone Hcl 20 Mg/2 Ml Oral.Conc) 90 mg PO DAILY@0800 [facility] Last Admin: 04/23/25 08:57 Dose: 90 mg Methadone HCl (Methadone Hcl 20 Mg/2 Ml Oral.Conc) 45 mg PO DAILY@2100 [facility] Last Admin: 04/22/25 21:09 Dose: 45 mg Multivitamins/Vitamin C (Multivitamin Tablet) 1 tab PO DAILY [facility] Last Admin: 04/23/25 08:59 Dose: 1 tab Naloxone HCl (Naloxone Hcl 0.4 Mg/Ml Vial) 0.1 mg IVPUSH Q5M PRN PRN Reason: Opiate Reversal Pharmacy Consult (Consult Rx Vancomycin Dosing) 1 each MISCELLANE DAILY PRN PRN Reason: Consult order Stop: 05/09/25 09:00 Senna/Docusate Sodium (Sennosides/Docusate Sodium Tablet) 1 tab PO BEDTIME [facility] Last Admin: 04/22/25 21:09 Dose: 1 tab Sodium Chloride (0.9 % Sodium Chloride Flush 3 Ml Syringe) 3 ml IVFLUSH QSHIFT [facility] Last Admin: 04/23/25 09:01 Dose: 3 ml Thiamine HCl (Thiamine Hcl 100 Mg Tablet) 100 mg PO DAILY [facility] Last Admin: 04/23/25 09:00 Dose: 100 mg Allergies Allergies Allergy/AdvReac Type Severity Reaction Status Date / Time No Known Allergies Allergy Verified 04/02/25 13:13 Assessment & Plan Assessment & Plan (1) Opioid use disorder, severe, dependence: Status: Acute Code(s): F11.20 - Opioid dependence, uncomplicated Assessment and Plan: continue methadone at current split dose 90mg/45mg monitor for constipation given high doses of opiates-- Total time managing care of this patient today _20___ minutes.
[2025-04-23 12:00] VITALS: BP 132/69; PULSE 68; RESP 16; TEMP 36.2; O2SAT 96
--- NOTE | 2025-04-23 12:19 | HO.WOUND ---
Wound Consult: Follow up 34yr old?female admitted to [facility] on 04/14/25 21:20- See progress notes and H&P for detailed history.? Wound consult follow up for left AC and right arm and chest wound vac.? Patient agreeable to assessment and photo documentation.? NPWT alarms reviewed no alarms noted. No concern for leak or blockage at this time. Patient reports wound vac is tolerable. Plan for wound vac change in OR on with General Surgery team. Patient tearful expressing wanting to get up, patient assisted with gown and pants change, assisted to chair to sit up for breakfast. RN at bedside for routine meds, patient in better spirits once up out of bed. Left arm ac dressing changed and packed with Hydrofera blue and foam dressing, ABD pad and elastic netting. Moist beefy red granulation tissue noted No new topical recommendations needed at this time. Continue with NPWT at 125 low and continuous. Set for OR Wound Vac change on with General Surgery team.
--- NOTE | 2025-04-23 13:15 | MHC.CM.PN ---
Not medically cleared for dc. Plan for OR tomorrow for wound vac dressing change. Tammy continues to follow and intends to accept patient when clear. Per surgery, will reassess readiness for dc after dressing change. Patient also awaiting new line. Per RN IR is aware. Reviewed dc plan with patient, who is in agreement. She completed an HCP naming her grandmother, Enedelia Miner, and S.O., Cralos, as HCA's. CM will continue to follow.
--- NOTE | 2025-04-23 13:20 | MHC.RECOVRN ---
TW met with pt to offer continued support. On approach pt was sitting in bed, watching TV. She was plasant and smiling on approach and states she is feeling alot better, especially since I get knocked out now when they do my dressing changes, the pain was unbearable . Pt was provided a book and crossword puzzles to help occupy time and alleviate boredom Tw available as needed for ongoing support.
[2025-04-23 15:55] VITALS: BP 135/75; PULSE 63; RESP 16; TEMP 36.2; O2SAT 96
[2025-04-23] MEDS: methADONE HCl 20 MG/2 ML ORAL.CONC 45 MG PO (19:43)
[2025-04-23 19:44] VITALS: BP 145/67; PULSE 61; RESP 15; TEMP 36.2; O2SAT 98
[2025-04-24] VITALS (10 sets, daily range): BP systolic 124–145; BP diastolic 53–87; PULSE 58–68; RESP 12–18; TEMP 36.1–36.6; O2SAT 95–98
[2025-04-24 06:33] LABS: Creatinine Clr Calc Pharmacy 95.1; Estimated Glomerular Filt Rate > 60
[2025-04-24] MEDS: methADONE HCl 20 MG/2 ML ORAL.CONC 90 MG PO (07:39)
[2025-04-24] MEDS: 0.9 % Sodium Chloride Flush 3 ML SYRINGE IVFLUSH ×3 (07:41→20:04)
--- NOTE | 2025-04-24 08:47 | P.PNGS_ITS ---
Subjective Subjective Date of Service: 04/24/25 <Berta Be PA-C - Last Filed: 04/24/25 08:50> 04/24/25 <Dylan Stephenson MD - Last Filed: 04/24/25 09:14> Interval history: Pain overall improved. Awaiting wound vac dressing change today. No concerns. <Berta Be PA-C - Last Filed: 04/24/25 08:50> Physical Exam 2 Vital Signs: Vital Signs: Last Vital Signs Temp 97.5 F 04/24/25 07:37 Pulse 65 04/24/25 07:37 Resp 12 04/24/25 07:37 BP 141/65 H 04/24/25 07:37 Pulse Ox 96 04/24/25 07:37 O2 Del Method Room Air 04/24/25 07:37 <Berta Be PA-C - Last Filed: 04/24/25 08:50> Const: General: comfortable, no acute distress and alert <Berta Be PA-C - Last Filed: 04/24/25 08:50> Resp: Effort & Inspection: normal respiratory effort <Berta Be PA-C - Last Filed: 04/24/25 08:50> Skin: Other: right upper extremity and right chest with wound vac in place, good seal noted <Berta Be PA-C - Last Filed: 04/24/25 08:50> Objective Data Active Medications Acetaminophen (Acetaminophen 325 Mg Tablet) 650 mg PO Q6H PRN PRN Reason: Pain, Mild 1-3,fever,headache Last Admin: 04/24/25 00:56 Dose: 650 mg Documented By: STEVE Baclofen (Baclofen 10 Mg Tablet) 10 mg PO TID HANNAH Last Admin: 04/24/25 07:38 Dose: 10 mg Documented By: ABDIRASHID Bisacodyl (Bisacodyl 10 Mg Supp.Rect) 10 mg OR BEDTIME PRN PRN Reason: Constipation Calcium Carbonate (Calcium Carbonate 750 Mg Tab.Chew) 750 mg PO Q4H PRN PRN Reason: Heartburn Clonidine HCl (Clonidine Hcl 0.1 Mg Tablet) 0.1 mg PO BID [facility]; Protocol Last Admin: 04/24/25 07:39 Dose: 0.1 mg Documented By: ABDIRASHID Enoxaparin Sodium (Enoxaparin Sodium 40 Mg/0.4 Ml Syringe) 40 mg SUBCUT Q24H [facility] Last Admin: 04/24/25 07:31 Dose: Not Given Documented By: ABDIRASHID Non-Admin Reason: hold for procedure Folic Acid (Folic Acid 1 Mg Tablet) 1 mg PO DAILY [facility] Last Admin: 04/24/25 07:31 Dose: Not Given Documented By: ABDIRASHID Non-Admin Reason: hold for procedure Gabapentin (Gabapentin 300 Mg Capsule) 300 mg PO TID [facility] Last Admin: 04/24/25 07:38 Dose: 300 mg Documented By: ABDIRASHID Hydromorphone HCl (Hydromorphone Hcl 1 Mg/Ml Syringe) 1 mg IVPUSH Q4H PRN; Protocol PRN Reason: 30m prior to wound care Last Admin: 04/21/25 15:32 Dose: 1 mg Documented By: SUZIE Hydromorphone HCl (Hydromorphone Hcl 2 Mg Tablet) 4 mg PO Q3H PRN PRN Reason: Pain, Severe (Pain Scale 7-10) Last Admin: 04/24/25 07:45 Dose: 4 mg Documented By: ABDIRASHID Vancomycin HCl 1,000 mg/ (Sodium Chloride) 270 mls @ 270 mls/hr IV Q12H [facility] Last Infusion: 04/24/25 00:59 Dose: Infused Documented By: STEVE Magnesium Hydroxide (Milk Of Magnesia 30 Ml Oral.Susp) 30 ml PO DAILY PRN PRN Reason: Constipation Melatonin (Melatonin 3 Mg Tablet) 6 mg PO BEDTIME PRN PRN Reason: Insomnia Methadone HCl (Methadone Hcl 20 Mg/2 Ml Oral.Conc) 90 mg PO DAILY@0800 [facility] Last Admin: 04/24/25 07:39 Dose: 90 mg Documented By: ABDIRASHID Co-signed By: MEÑO Methadone HCl (Methadone Hcl 20 Mg/2 Ml Oral.Conc) 45 mg PO DAILY@2100 [facility] Last Admin: 04/23/25 19:43 Dose: 45 mg Documented By: STEVE Co-signed By: TORITO Multivitamins/Vitamin C (Multivitamin Tablet) 1 tab PO DAILY [facility] Last Admin: 04/24/25 07:32 Dose: Not Given Documented By: ABDIRASHID Non-Admin Reason: hold for procedure Naloxone HCl (Naloxone Hcl 0.4 Mg/Ml Vial) 0.1 mg IVPUSH Q5M PRN PRN Reason: Opiate Reversal Pharmacy Consult (Consult Rx Vancomycin Dosing) 1 each MISCELLANE DAILY PRN PRN Reason: Consult order Stop: 05/09/25 09:00 Senna/Docusate Sodium (Sennosides/Docusate Sodium Tablet) 1 tab PO BEDTIME [facility] Last Admin: 04/23/25 19:43 Dose: 1 tab Documented By: STEVE Sodium Chloride (0.9 % Sodium Chloride Flush 3 Ml Syringe) 3 ml IVFLUSH QSHIFT [facility] Last Admin: 04/24/25 07:41 Dose: 3 ml Documented By: ABDIRASHID Thiamine HCl (Thiamine Hcl 100 Mg Tablet) 100 mg PO DAILY [facility] Last Admin: 04/24/25 07:32 Dose: Not Given Documented By: ABDIRASHID Non-Admin Reason: hold for procedure <Berta Be PA-C - Last Filed: 04/24/25 08:50> Labs CBC & Chem 7: 04/21/25 08:50 04/24/25 05:52 <Berta Be PA-C - Last Filed: 04/24/25 08:50> Labs: Laboratory Results - last 24 hr 04/23/25 04/24/25 21:11 05:52 Estim Creat Clear Calc 95.1 Estimated GFR > 60 Vancomycin Trough 15.5 <Berta Be PA-C - Last Filed: 04/24/25 08:50> Procedures Date of Service Date of Service: 04/24/25 <Berta Be PA-C - Last Filed: 04/24/25 08:50> 04/24/25 <Dylan Stephenson MD - Last Filed: 04/24/25 09:14> Progress Note: A&P Assessment and plan (1) Open wound of right upper extremity: Status: Acute <CONNER Scruggs Last Filed: 04/24/25 08:50> (2) Encounter for management of wound VAC: Status: Acute <Berta Be PA-C - Last Filed: 04/24/25 08:50> Assessment and Plan: Underwent wound VAC change partial closure of open wound right upper arm and chest wall on Monday. Wound vac remains in place with good seal. Plan for wound vac change under anesthesia today. Patient comortable with plan and all questions answered. <Berta Be PA-C - Last Filed: 04/24/25 08:50> Underwent wound VAC change partial closure of open wound right upper arm and chest wall on Monday. Wound vac remains in place with good seal. Plan for wound vac change under anesthesia today. Patient comortable with plan and all questions answered. I once again reviewed the procedure, risks, and alternatives regarding wound VAC change under anesthesia. She expressed understanding and agrees with the plan. She gives her consent for the wound VAC change under anesthesia. Dr. Kilgore plans on placement of a Jara catheter during the same procedure. <Dylan Stephenson MD - Last Filed: 04/24/25 09:14> Time Spent With Patient Time: Total time managing care of this patient today ____ minutes. <Berta Be PA-C - Last Filed: 04/24/25 08:50> Quality Stroke Does the patient have a stroke diagnosis?: No <Berta Be PA-C - Last Filed: 04/24/25 08:50> VTE Prior VTE?: No <Berta Be PA-C - Last Filed: 04/24/25 08:50> VTE Risk Level:: Medical - moderate - high <Berta Be PA-C - Last Filed: 04/24/25 08:50> VTE Device Contraindication: Treatment Not Indicated <Berta Be PA-C - Last Filed: 04/24/25 08:50> VTE Drug Contraindication: N/A - Med Ordered <Berta Be PA-C - Last Filed: 04/24/25 08:50>
[2025-04-24] MEDS: Lactated Ringers 1,000 ML 50 ML IVCONT (08:51)
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
--- NOTE | 2025-04-24 10:33 | HO.PM.IMPN ---
Subjective Subjective Date of Service: 04/24/25 Interval History: f/u on MRSA sepsis and bacteremia and wound infection no new issues, awaiting disposition and is iritated with right IJ cath Physical Exam Exam: Exam: General: AO X 3, no acute distress Resp: CTA bilateral CVS: S1,S2,RRR GI: +BS, NT, no distention Skin: wound vac in place Neuro: motor grossly intact Psych: appropriate affect Vital Signs: Vital Signs: Last Vital Signs Temp 97.5 F 04/24/25 08:47 Pulse 65 04/24/25 08:47 Resp 18 04/24/25 08:47 BP 130/72 04/24/25 08:47 Pulse Ox 96 04/24/25 08:47 O2 Del Method Room Air 04/24/25 08:47 Objective Data Active Medications Acetaminophen (Acetaminophen 325 Mg Tablet) 650 mg PO Q6H PRN PRN Reason: Pain, Mild 1-3,fever,headache Last Admin: 04/24/25 00:56 Dose: 650 mg Documented By: STEVE Baclofen (Baclofen 10 Mg Tablet) 10 mg PO TID [facility] Last Admin: 04/24/25 07:38 Dose: 10 mg Documented By: ABDIRASHID Bisacodyl (Bisacodyl 10 Mg Supp.Rect) 10 mg [place] BEDTIME PRN PRN Reason: Constipation Calcium Carbonate (Calcium Carbonate 750 Mg Tab.Chew) 750 mg PO Q4H PRN PRN Reason: Heartburn Clonidine HCl (Clonidine Hcl 0.1 Mg Tablet) 0.1 mg PO BID [facility]; Protocol Last Admin: 04/24/25 07:39 Dose: 0.1 mg Documented By: ABDIRASHID Enoxaparin Sodium (Enoxaparin Sodium 40 Mg/0.4 Ml Syringe) 40 mg SUBCUT Q24H [facility] Last Admin: 04/24/25 07:31 Dose: Not Given Documented By: ABDIRASHID Non-Admin Reason: hold for procedure Fentanyl (Fentanyl Citrate/Pf 100 Mcg/2 Ml Vial) 50 mcg IVPUSH Q5M PRN PRN Reason: Pain, Moderate to Severe (Pain Scale 4-10) Stop: 04/24/25 15:39 Folic Acid (Folic Acid 1 Mg Tablet) 1 mg PO DAILY [facility] Last Admin: 04/24/25 07:31 Dose: Not Given Documented By: HO.TROMBLS Non-Admin Reason: hold for procedure Gabapentin (Gabapentin 300 Mg Capsule) 300 mg PO TID [facility] Last Admin: 04/24/25 07:38 Dose: 300 mg Documented By: ABDIRASHID Hydromorphone HCl (Hydromorphone Hcl 1 Mg/Ml Syringe) 1 mg IVPUSH Q4H PRN; Protocol PRN Reason: 30m prior to wound care Last Admin: 04/21/25 15:32 Dose: 1 mg Documented By: SUZIE Hydromorphone HCl (Hydromorphone Hcl 2 Mg Tablet) 4 mg PO Q3H PRN PRN Reason: Pain, Severe (Pain Scale 7-10) Last Admin: 04/24/25 07:45 Dose: 4 mg Documented By: ABDIRASHID Vancomycin HCl 1,000 mg/ (Sodium Chloride) 270 mls @ 270 mls/hr IV Q12H [facility] Last Infusion: 04/24/25 00:59 Dose: Infused Documented By: STEVE Lactated Ringer's (Lr) 1,000 mls @ 50 mls/hr IVCONT .Q20H [facility] Last Admin: 04/24/25 08:51 Dose: 50 mls/hr Documented By: ANNETTE Lactated Ringer's (Lr) 500 mls @ 20 mls/hr IVCONT .Q24H [facility] Magnesium Hydroxide (Milk Of Magnesia 30 Ml Oral.Susp) 30 ml PO DAILY PRN PRN Reason: Constipation Melatonin (Melatonin 3 Mg Tablet) 6 mg PO BEDTIME PRN PRN Reason: Insomnia Methadone HCl (Methadone Hcl 20 Mg/2 Ml Oral.Conc) 90 mg PO DAILY@0800 [facility] Last Admin: 04/24/25 07:39 Dose: 90 mg Documented By: ABDIRASHID Co-signed By: MEÑO Methadone HCl (Methadone Hcl 20 Mg/2 Ml Oral.Conc) 45 mg PO DAILY@2100 [facility] Last Admin: 04/23/25 19:43 Dose: 45 mg Documented By: STEVE Co-signed By: TORITO Multivitamins/Vitamin C (Multivitamin Tablet) 1 tab PO DAILY [facility] Last Admin: 04/24/25 07:32 Dose: Not Given Documented By: ABDIRASHID Non-Admin Reason: hold for procedure Naloxone HCl (Naloxone Hcl 0.4 Mg/Ml Vial) 0.1 mg IVPUSH Q5M PRN PRN Reason: Opiate Reversal Naloxone HCl (Naloxone Hcl 0.4 Mg/Ml Vial) 0.04 mg IVPUSH Q5M PRN PRN Reason: Excessive sedation or RR < 8 Ondansetron HCl (Ondansetron Hcl 4 Mg/2 Ml Vial) 4 mg IVPUSH ONCE PRN PRN Reason: Nausea and Vomiting Stop: 04/24/25 15:39 Pharmacy Consult (Consult Rx Vancomycin Dosing) 1 each MISCELLANE DAILY PRN PRN Reason: Consult order Stop: 05/09/25 09:00 Senna/Docusate Sodium (Sennosides/Docusate Sodium Tablet) 1 tab PO BEDTIME [facility] Last Admin: 04/23/25 19:43 Dose: 1 tab Documented By: STEVE Sodium Chloride (0.9 % Sodium Chloride Flush 3 Ml Syringe) 3 ml IVFLUSH QSHIFT [facility] Last Admin: 04/24/25 07:41 Dose: 3 ml Documented By: ABDIRASHID Thiamine HCl (Thiamine Hcl 100 Mg Tablet) 100 mg PO DAILY [facility] Last Admin: 04/24/25 07:32 Dose: Not Given Documented By: ABDIRASHID Non-Admin Reason: hold for procedure Labs 04/21/25 08:50 04/24/25 05:52 Labs: Laboratory Results - last 24 hr 04/23/25 04/24/25 21:11 05:52 Estim Creat Clear Calc 95.1 Estimated GFR > 60 Vancomycin Trough 15.5 Assessment and Plan (1) Substance use disorder: Status: Acute (2) Depression: Status: Acute (3) Anxiety: Status: Acute (4) IV drug abuse: Status: Acute (5) Opioid use disorder, severe, dependence: Status: Acute (6) GERD (gastroesophageal reflux disease): Status: Acute (7) Cellulitis: Status: Acute (8) Sepsis: Status: Acute (9) Abscess of right upper arm and forearm: Status: Acute (10) Abscess of left upper arm and forearm: Status: Acute (11) Myositis: Status: Acute (12) Open wound of right upper extremity: Status: Acute (13) Open wound of left upper arm: Status: Acute (14) Fasciitis: Status: Acute Plan This is a 34-year-old female with a history of intravenous drug use (IVDU), prior methadone overdose, xylazine-associated left forearm infection, depression/anxiety (self-medicating with street-purchased Xanax and clonidine), and substance use disorder (heroin/fentanyl, cocaine). She presents for ongoing management of severe bilateral upper extremity infections and complications following recent hospitalizations. The patient was initially admitted on 04/02/25 with sepsis secondary to a right upper extremity abscess and cellulitis with myositis, related to IVDU. She underwent incision and drainage (I&D) of the right shoulder and was transferred to [facility] for further extensive debridement and I&D of multiple bilateral upper extremity abscesses. She returned to [facility] on 04/14/25 for continued care. Sepsis (MRSA-positive): Met sepsis criteria on 04/02 (bandemia 41%, lactic acid 2.7 ? 1.8 after fluids, tachycardia, elevated ESR/CRP). Blood cultures last negative on 04/09/25. No valvular vegetations on TTE; possible micro-seeding. Ongoing antibiotics: Vancomycin (through 05/07/25), Clindamycin (through 04/15/25), then Doxycycline (05/08?05/22/25). Bilateral Upper Extremity Infections: Abscesses, cellulitis, fasciitis, and myositis confirmed on imaging. Multiple I&Ds performed (RUE biceps/triceps, LUE antecubital fossa). Wound care and wound vac management per surgery Packing changes to RUE and right chest wall with saline-moistened Kerlix and Osbaldo wraps. LUE contains retained needle?packing only with instruments, not fingers. Venous Access: Right triple lumen IJ in place, needs replacement; Barron cath planned today Acute Blood Loss Anemia: S/p hematoma with clot evacuation (04/08/25). Received 1 unit PRBC at [place]; Hgb dropped to 6.7 mg/dL today. Received 2 units PRBC on 04/18/25 without complication. Monitor H&H. Substance Use Disorder: On methadone 130 mg daily (confirmed with addiction medicine). Addiction medicine consult for pain management and outpatient planning. Found using illicit substances during admission; items confiscated. Policy: No visitors, all items searched, video monitoring continued--unless otherwise authorized Electrolyte Abnormalities: Mild hyponatremia (resolved). Hypokalemia, resolved Other Chronic Issues: GERD: Protonix BID. Constipation: Milk of magnesia as needed. Continue current antibiotics as scheduled. Replac right IJ with barron cath Continue wound care and surgical follow-up. Continue methadone; addiction medicine following Maintain current safety and monitoring protocols with no visitors Monitor labs, electrolytes, and hemoglobin/hematocrit as needed Supportive care for GERD and constipation. Quality Metrics: VTE prophylaxis: Enoxaparin Code status: Full code Diet: Regular Total time managing care of this patient today: 35 minutes. Quality Stroke Does the patient have a stroke diagnosis?: No VTE Prior VTE?: No VTE Risk Level:: Medical - moderate - high VTE Device Contraindication: Treatment Not Indicated VTE Drug Contraindication: N/A - Med Ordered
[2025-04-24 11:05] LABS: Anion Gap 19 (12-20); Carbon Dioxide 21 mmol/L (22-29); Chloride 109 mmol/L (96-108); Potassium 5.8 mmol/L (3.3-5.1); Sodium 143 mmol/L (135-145)
--- NOTE | 2025-04-24 11:48 | P.OP_ITS ---
Operative Note Operative Note Date of Service: 04/24/25 Narrative: Preoperative diagnosis: Abscess right upper arm and forearm, chest wall Postoperative diagnosis: Same Procedure: Wound VAC change partial closure of open wound right upper arm and chest wall. Surgeon: Dylan Stephenson MD Technical Sales Support Manager: Guilherme Diane PA-C Anesthesia: General LMA Indications for procedure: 34-year-old female patient presenting with a large abscess involving the right upper extremity, s/p wide drainage performed at [facility] returning to [place] for wound care. Wound VAC has been placed but because of severe pain with a previous wound VAC change, the current dressing changes being performed under anesthesia Operative findings: Good granulation tissue noted throughout the open wounds. The chest wound and biceps wound were again partially closed using interrupted 3-0 nylon sutures. Specimen: None Estimated blood loss: 10 mL Complications: None Procedure details: Patient was brought to the OR and placed in a supine position. After administering general anesthesia the patient's arm and chest wall were prepped with Betadine and draped in a sterile fashion. A surgical time-out was called the consent confirmed. The patient has been on antibiotics. Local anesthesia consisting of 0.5% Sensorcaine was infiltrated circumferentially around the wounds. No debridement was required at this time. The upper portion of the biceps wound and chest wound were closed at the margin slightly using a 3-0 nylon suture. Black sponge was then cut to size and placed in all wounds were then bridged to include all 3 wounds into 1 suction device. Wound VAC was then connected and good suction obtained. No leaks could be identified. The patient tolerated the procedure well. Sponge, instrument, and needle counts reported as correct. The patient was transferred to PACU in stable condition.
--- NOTE | 2025-04-24 15:13 | MHC.CM.PN ---
Per surgery, plan for dc Thursday 04/26 if patient tolerates bedside wound vac removal. Gabriela at [facility] updated, accepted and will initiate auth. In dc summary will need wound vac orders, frequency of dressing change and order for wet to dry until wound vac able to be applied at SNF.
--- NOTE | 2025-04-24 18:07 | PC.NURSE ---
Pt AOx4, cooperative with care, able to make needs known. Wound vac changed in OR today, tolerated well. Safety measures in place.
[2025-04-24] MEDS: methADONE HCl 20 MG/2 ML ORAL.CONC 45 MG PO (20:28)
[2025-04-24 21:49] LABS: Anion Gap 12 (12-20); Carbon Dioxide 29 mmol/L (22-29); Chloride 104 mmol/L (96-108); Potassium 4.0 mmol/L (3.3-5.1); Sodium 141 mmol/L (135-145)
--- NOTE | 2025-04-24 21:50 | HE.PHANOTE ---
Re: Vanco Renal continues to decline. Trough returned at 12.3. Pt is therapeutic, continue current dose of 1g q12h with predicted AUC 427, predicted trough 11.8. Next trough 04/24 @ 2100.
[2025-04-25] VITALS (7 sets, daily range): BP systolic 129–150; BP diastolic 62–98; PULSE 55–78; RESP 14–18; TEMP 36–36.4; O2SAT 96–98
--- NOTE | 2025-04-25 02:59 | PC.NURSE ---
pt A/OX4, calm and cooperative with care, able to make needs known and has been very pleasant. She is currently resting with eyes closed. breathing is even and unlabored.
[2025-04-25 07:37] LABS: Creatinine Clr Calc Pharmacy 136.2; Estimated Glomerular Filt Rate > 60
[2025-04-25] MEDS: methADONE HCl 20 MG/2 ML ORAL.CONC 90 MG PO (09:03)
[2025-04-25] MEDS: 0.9 % Sodium Chloride Flush 3 ML SYRINGE IVFLUSH ×2 (09:05→14:43)
--- NOTE | 2025-04-25 09:50 | PM.PNGS ---
Subjective Subjective Date of Service: 04/25/25 Interval history: Has a little more pain today than previous and less mobility of right arm today due to pain. Also reports some tingling of the right 4th and 5th fingers. Does report she had this for a few days now and does not think it worse. Physical Exam Vital Signs: Vital Signs: Last Vital Signs Temp 97.0 F 04/25/25 08:00 Pulse 59 04/25/25 08:00 Resp 16 04/25/25 08:00 BP 139/73 04/25/25 08:00 Pulse Ox 98 04/25/25 08:00 O2 Del Method Room Air 04/25/25 08:00 Const: General: comfortable, no acute distress and alert Orientation/consciousness: patient oriented x3 Resp: Effort & Inspection: normal respiratory effort Skin: Other: warm and dry wound vac in place to right upper extremity and chest; scant drainage in cannister Neuro: General: patient oriented x3 and moves all extremities Extrem: Other: Right arm- good palpable radial pulse and good cap refill, good sensation and mobility of all fingers Objective Data Active Medications Acetaminophen (Acetaminophen 325 Mg Tablet) 650 mg PO Q6H PRN PRN Reason: Pain, Mild 1-3,fever,headache Last Admin: 04/25/25 06:05 Dose: 650 mg Documented By: STEVE Baclofen (Baclofen 10 Mg Tablet) 10 mg PO TID [facility] Last Admin: 04/25/25 09:04 Dose: 10 mg Documented By: MARISELA Bisacodyl (Bisacodyl 10 Mg Supp.Rect) 10 mg [place] BEDTIME PRN PRN Reason: Constipation Calcium Carbonate (Calcium Carbonate 750 Mg Tab.Chew) 750 mg PO Q4H PRN PRN Reason: Heartburn Clonidine HCl (Clonidine Hcl 0.1 Mg Tablet) 0.1 mg PO BID [facility]; Protocol Last Admin: 04/25/25 09:04 Dose: 0.1 mg Documented By: MARISELA Enoxaparin Sodium (Enoxaparin Sodium 40 Mg/0.4 Ml Syringe) 40 mg SUBCUT Q24H [facility] Last Admin: 04/25/25 09:05 Dose: 40 mg Documented By: MARISELA Folic Acid (Folic Acid 1 Mg Tablet) 1 mg PO DAILY [facility] Last Admin: 04/25/25 09:05 Dose: 1 mg Documented By: MARISELA Gabapentin (Gabapentin 300 Mg Capsule) 300 mg PO TID [facility] Last Admin: 04/25/25 09:04 Dose: 300 mg Documented By: MARISELA Hydromorphone HCl (Hydromorphone Hcl 1 Mg/Ml Syringe) 1 mg IVPUSH Q4H PRN; Protocol PRN Reason: 30m prior to wound care Last Admin: 04/21/25 15:32 Dose: 1 mg Documented By: SUZIE Hydromorphone HCl (Hydromorphone Hcl 2 Mg Tablet) 4 mg PO Q3H PRN PRN Reason: Pain, Severe (Pain Scale 7-10) Last Admin: 04/25/25 09:09 Dose: 4 mg Documented By: MARISELA Vancomycin HCl 1,000 mg/ (Sodium Chloride) 270 mls @ 270 mls/hr IV Q12H [facility] Last Infusion: 04/25/25 00:52 Dose: Infused Documented By: STEVE Magnesium Hydroxide (Milk Of Magnesia 30 Ml Oral.Susp) 30 ml PO DAILY PRN PRN Reason: Constipation Melatonin (Melatonin 3 Mg Tablet) 6 mg PO BEDTIME PRN PRN Reason: Insomnia Methadone HCl (Methadone Hcl 20 Mg/2 Ml Oral.Conc) 90 mg PO DAILY@0800 [facility] Last Admin: 04/25/25 09:03 Dose: 90 mg Documented By: MARISELA Co-signed By: KINGA Methadone HCl (Methadone Hcl 20 Mg/2 Ml Oral.Conc) 45 mg PO DAILY@2100 [facility] Last Admin: 04/24/25 20:28 Dose: 45 mg Documented By: STEVE Co-signed By: TORITO Multivitamins/Vitamin C (Multivitamin Tablet) 1 tab PO DAILY [facility] Last Admin: 04/25/25 09:04 Dose: 1 tab Documented By: MARISELA Naloxone HCl (Naloxone Hcl 0.4 Mg/Ml Vial) 0.1 mg IVPUSH Q5M PRN PRN Reason: Opiate Reversal Senna/Docusate Sodium (Sennosides/Docusate Sodium Tablet) 1 tab PO BEDTIME [facility] Last Admin: 04/24/25 20:03 Dose: 1 tab Documented By: STEVE Sodium Chloride (0.9 % Sodium Chloride Flush 3 Ml Syringe) 3 ml IVFLUSH QSHIFT [facility] Last Admin: 04/25/25 09:05 Dose: 3 ml Documented By: MARISELA Thiamine HCl (Thiamine Hcl 100 Mg Tablet) 100 mg PO DAILY [facility] Last Admin: 04/25/25 09:04 Dose: 100 mg Documented By: MARISELA Labs 04/21/25 08:50 04/25/25 05:46 Labs: Laboratory Results - last 24 hr 04/24/25 04/24/25 04/25/25 05:52 21:14 05:46 Anion Gap 19 12 Estim Creat Clear Calc 136.2 Estimated GFR > 60 Random Vancomycin 12.3 L Procedures Date of Service Date of Service: 04/25/25 Progress Note: A&P Assessment and plan (1) Open wound of right upper extremity: Status: Acute (2) Encounter for management of wound VAC: Status: Acute Plan Underwent wound VAC change partial closure of open wound right upper arm and chest wall again in the OR yesterday. She does report tingling of the right 4th and 5th finger which she had never reported prior however she states she has had this for a few days. She has good palpable pulses, cap refill and sensation. The adherent dressing is almost circumferential and therefore a slit was made in the superior and inferior aspects to see if this alleviated some pressure from wound. We then discussed a plan for eventual disposition and transfer to [facility]. We discussed removing the wound vac at bedside tomorrow with placement of wet to dry dressing for transfer tomorrow. She however became very anxious and states she cannot do it. It was discussed extensively that there is no longer exposed muscle and its now all granulation tissue and the pain will be significantly less than the first attempt at bedside. She however remains anxious. Will return with the weekend sediment remediation consultant surgeon to see if we solidify a plan to prep her for discharge. Time Spent With Patient Time: Total time managing care of this patient today ____ minutes. Quality Stroke Does the patient have a stroke diagnosis?: No VTE Prior VTE?: No VTE Risk Level:: Medical - moderate - high VTE Device Contraindication: Treatment Not Indicated VTE Drug Contraindication: N/A - Med Ordered
--- NOTE | 2025-04-25 11:58 | PM.EVENT ---
Event Note Date of Service: 04/25/25 Event Note: Discussed with covering general surgery. Will attempt wound vac dressing change at bedside tomorrow. If unable to tolerate, can take to OR for removal with sedation. Will keep NPO at midnight in case sedation is needed. If she is unable to tolerate, can do wet to dry dressings to get her to her facility until she becomes more acclimated to dressing changes and then apply wound vac at later date. Time Spent With Patient Time: Total time managing care of this patient today ____ minutes.
--- NOTE | 2025-04-25 12:03 | HO.WOUND ---
Wound Consult: Follow up 34yr old?[place] [facility] [place] 04[place]14[place]25 21:20- See progress notes and H&P for detailed history.? Wound consult follow up for left AC and right arm and chest wound vac.? Patient agreeable to assessment and photo documentation.? NPWT to right chest, anterior and posterior arms, alarms reviewed no alarms noted. No concern for leak or blockage at this time. Patient reports wound vac is tolerable. Wound vac changed in OR on with General Surgery team. Left arm ac dressing changed and packed with Hydrofera blue and foam dressing, ABD pad and elastic netting. Moist beefy red granulation tissue noted, depth not probed due to pain, however appears to be filling in. No new topical recommendations needed at this time. Continue with NPWT at 125 low and continuous to right.
--- NOTE | 2025-04-25 12:16 | PC.NURSE ---
Pt is A&Ox4, cooperative with care, able to make needs known. Pt is able to ambulate to chair and bedside commode with minimal assistance to help with wound vac. All safety measures in place.
--- NOTE | 2025-04-25 12:50 | HO.WOUND ---
Wound Consult: Follow up 34yr old?female admitted to [facility] on 04/14/25 21:20- See progress notes and H&P for detailed history. Per request from Case Mgt - outside facility requesting wound measurements for Right Chest, and Arm wounds. At this time NPWT remains in place and unable to give accurate measurements. The last known measurements from Inpt wound care were: 04/18/25 Chest 7cm x 4cm x no depth documented as patient was not able to tolerate probing. 04/18/25 Posterior Arm 12cm x 3cm no depth but was down to muscle and tendon exposed - granulation tissue noted 04/18/25 Medial Arm 18cm x 7cm x No depth but was down to muscle with granulation tissue noted 04/16/25 Superior Posterior Site 1.5cm x 1cm x greater than 2cm 04/25/25 Left Arm 1.2cm x 0.8cm x 0.5cm - approximate depth Left arm recommend continue with Hydrofera blue and foam dressing, ABD pad and elastic netting. Change Daily. Right Chest, and Arm - Continue with NPWT at 125 low and continuous to right. No new topical recommendations needed at this time.
--- NOTE | 2025-04-25 12:57 | HO.PM.IMPN ---
Subjective Subjective Date of Service: 04/25/25 Interval History: f/u on MRSA sepsis and bacteremia and wound infection no new issues, awaiting disposition, jara cath placed yesterday Physical Exam Exam: Exam: General: AO X 3, no acute distress Resp: CTA bilateral CVS: S1,S2,RRR GI: +BS, NT, no distention Skin: wound vac in place Neuro: motor grossly intact Psych: appropriate affect Vital Signs: Vital Signs: Last Vital Signs Temp 97.6 F 04/25/25 12:00 Pulse 63 04/25/25 12:00 Resp 16 04/25/25 12:00 BP 136/65 04/25/25 12:00 Pulse Ox 97 04/25/25 12:00 O2 Del Method Room Air 04/25/25 12:00 Objective Data Active Medications Acetaminophen (Acetaminophen 325 Mg Tablet) 650 mg PO Q6H PRN PRN Reason: Pain, Mild 1-3,fever,headache Last Admin: 04/25/25 06:05 Dose: 650 mg Documented By: STEVE Baclofen (Baclofen 10 Mg Tablet) 10 mg PO TID [facility] Last Admin: 04/25/25 09:04 Dose: 10 mg Documented By: MARISELA Bisacodyl (Bisacodyl 10 Mg Supp.Rect) 10 mg IN BEDTIME PRN PRN Reason: Constipation Calcium Carbonate (Calcium Carbonate 750 Mg Tab.Chew) 750 mg PO Q4H PRN PRN Reason: Heartburn Clonidine HCl (Clonidine Hcl 0.1 Mg Tablet) 0.1 mg PO BID [facility]; Protocol Last Admin: 04/25/25 09:04 Dose: 0.1 mg Documented By: MARISELA Enoxaparin Sodium (Enoxaparin Sodium 40 Mg/0.4 Ml Syringe) 40 mg SUBCUT Q24H [facility] Last Admin: 04/25/25 09:05 Dose: 40 mg Documented By: MARISELA Folic Acid (Folic Acid 1 Mg Tablet) 1 mg PO DAILY [facility] Last Admin: 04/25/25 09:05 Dose: 1 mg Documented By: MARISELA Gabapentin (Gabapentin 300 Mg Capsule) 300 mg PO TID [facility] Last Admin: 04/25/25 09:04 Dose: 300 mg Documented By: MARISELA Hydromorphone HCl (Hydromorphone Hcl 1 Mg/Ml Syringe) 1 mg IVPUSH Q4H PRN; Protocol PRN Reason: 30m prior to wound care Last Admin: 04/21/25 15:32 Dose: 1 mg Documented By: SUZIE Hydromorphone HCl (Hydromorphone Hcl 2 Mg Tablet) 4 mg PO Q3H PRN PRN Reason: Pain, Severe (Pain Scale 7-10) Last Admin: 04/25/25 09:09 Dose: 4 mg Documented By: MARISELA Vancomycin HCl 1,000 mg/ (Sodium Chloride) 270 mls @ 270 mls/hr IV Q12H [facility] Last Infusion: 04/25/25 00:52 Dose: Infused Documented By: STEVE Magnesium Hydroxide (Milk Of Magnesia 30 Ml Oral.Susp) 30 ml PO DAILY PRN PRN Reason: Constipation Melatonin (Melatonin 3 Mg Tablet) 6 mg PO BEDTIME PRN PRN Reason: Insomnia Methadone HCl (Methadone Hcl 20 Mg/2 Ml Oral.Conc) 90 mg PO DAILY@0800 [facility] Last Admin: 04/25/25 09:03 Dose: 90 mg Documented By: MARISELA Co-signed By: KINGA Methadone HCl (Methadone Hcl 20 Mg/2 Ml Oral.Conc) 45 mg PO DAILY@2100 [facility] Last Admin: 04/24/25 20:28 Dose: 45 mg Documented By: STEVE Co-signed By: TORITO Multivitamins/Vitamin C (Multivitamin Tablet) 1 tab PO DAILY [facility] Last Admin: 04/25/25 09:04 Dose: 1 tab Documented By: MARISELA Naloxone HCl (Naloxone Hcl 0.4 Mg/Ml Vial) 0.1 mg IVPUSH Q5M PRN PRN Reason: Opiate Reversal Senna/Docusate Sodium (Sennosides/Docusate Sodium Tablet) 1 tab PO BEDTIME [facility] Last Admin: 04/24/25 20:03 Dose: 1 tab Documented By: STEVE Sodium Chloride (0.9 % Sodium Chloride Flush 3 Ml Syringe) 3 ml IVFLUSH QSHIFT [facility] Last Admin: 04/25/25 09:05 Dose: 3 ml Documented By: MARISELA Thiamine HCl (Thiamine Hcl 100 Mg Tablet) 100 mg PO DAILY [facility] Last Admin: 04/25/25 09:04 Dose: 100 mg Documented By: MARISELA Labs 04/21/25 08:50 04/25/25 05:46 Labs: Laboratory Results - last 24 hr 04/24/25 04/25/25 21:14 05:46 Anion Gap 12 Estim Creat Clear Calc 136.2 Estimated GFR > 60 Random Vancomycin 12.3 L Assessment and Plan (1) Substance use disorder: Status: Acute (2) Depression: Status: Acute (3) Anxiety: Status: Acute (4) IV drug abuse: Status: Acute (5) Opioid use disorder, severe, dependence: Status: Acute (6) GERD (gastroesophageal reflux disease): Status: Acute (7) Cellulitis: Status: Acute (8) Sepsis: Status: Acute (9) Abscess of right upper arm and forearm: Status: Acute (10) Abscess of left upper arm and forearm: Status: Acute (11) Myositis: Status: Acute (12) Open wound of right upper extremity: Status: Acute (13) Open wound of left upper arm: Status: Acute (14) Fasciitis: Status: Acute Plan This is a 34-year-old female with a history of intravenous drug use (IVDU), prior methadone overdose, xylazine-associated left forearm infection, depression/anxiety (self-medicating with street-purchased Xanax and clonidine), and substance use disorder (heroin/fentanyl, cocaine). She presents for ongoing management of severe bilateral upper extremity infections and complications following recent hospitalizations. The patient was initially admitted on 04/02/25 with sepsis secondary to a right upper extremity abscess and cellulitis with myositis, related to IVDU. She underwent incision and drainage (I&D) of the right shoulder and was transferred to [facility] for further extensive debridement and I&D of multiple bilateral upper extremity abscesses. She returned to [facility] on 04/14/25 for continued care. Sepsis (MRSA-positive): Met sepsis criteria on 04/02 (bandemia 41%, lactic acid 2.7 ? 1.8 after fluids, tachycardia, elevated ESR/CRP). Blood cultures last negative on 04/09/25. No valvular vegetations on TTE; possible micro-seeding. Ongoing antibiotics: Vancomycin (through 05/07/25), Clindamycin (through 04/15/25), then Doxycycline (05/08?05/22/25). Bilateral Upper Extremity Infections: Abscesses, cellulitis, fasciitis, and myositis confirmed on imaging. Multiple I&Ds performed (RUE biceps/triceps, LUE antecubital fossa). Wound care and wound vac management per surgery Packing changes to RUE and right chest wall with saline-moistened Kerlix and Osbaldo wraps. LUE contains retained needle?packing only with instruments, not fingers. Venous Access: Jara cath 04/24 Acute Blood Loss Anemia: S/p hematoma with clot evacuation (04/08/25). Received 1 unit PRBC at [place]; Hgb dropped to 6.7 mg/dL today. Received 2 units PRBC on 04/18/25 without complication. Monitor H&H. Substance Use Disorder: On methadone 130 mg daily (confirmed with addiction medicine). Addiction medicine consult for pain management and outpatient planning. Found using illicit substances during admission; items confiscated. Policy: No visitors, all items searched, video monitoring continued--unless otherwise authorized Electrolyte Abnormalities: Mild hyponatremia (resolved). Hypokalemia, resolved Anxiety: Ativan PRN Other Chronic Issues: GERD: Protonix BID. Constipation: Milk of magnesia as needed. Continue current antibiotics as scheduled. Replac right IJ with jara cath Continue wound care and surgical follow-up. Continue methadone; addiction medicine following Maintain current safety and monitoring protocols with no visitors Monitor labs, electrolytes, and hemoglobin/hematocrit as needed Supportive care for GERD and constipation. Quality Metrics: VTE prophylaxis: Enoxaparin Code status: Full code Diet: Regular Total time managing care of this patient today: 35 minutes. Quality Stroke Does the patient have a stroke diagnosis?: No VTE Prior VTE?: No VTE Risk Level:: Medical - moderate - high VTE Device Contraindication: Treatment Not Indicated VTE Drug Contraindication: N/A - Med Ordered
--- NOTE | 2025-04-25 13:40 | PC.NURSE ---
Pt compliant with safety restrictions, no camera in place. All other safety measures in place, call bowers within reach.
--- NOTE | 2025-04-25 14:42 | MHC.CM.PN ---
Addendum entered by Mona Montes De Oca RN 04/25/25 14:48: DC summary will need to include wound vac orders Original Note: Patient not medically cleared for dc at this time. Plan for dc tomorrow to [facility] after removal of wound vac (per surgery will attempt at bedside, but will bring to OR if necessary). Patient very anxious when discussing dc plan. [facility] Gabriela at [facility] has submitted for auth and will be available over the weekend for dc coordination. [phone]?
[2025-04-25] MEDS: methADONE HCl 20 MG/2 ML ORAL.CONC 45 MG PO (20:26)
--- NOTE | 2025-04-25 21:24 | HE.PHANOTE ---
RE: vanco Level on 04/25 came back at 14.9; renal function improved and predicted AUC would be subtherapeutic. Increased dose to 1250 Q12 with predicted AUC of 441 mg/L, trough of 11.5. Next level 04/26 @2100
[2025-04-26 04:00] VITALS: BP 145/85; PULSE 60; RESP 16; TEMP 36.4; O2SAT 97
[2025-04-26 07:23] LABS: Creatinine Clr Calc Pharmacy 105.2; Estimated Glomerular Filt Rate > 60
[2025-04-26 07:42] VITALS: BP 138/70; PULSE 65; RESP 18; TEMP 36.1; O2SAT 96
[2025-04-26] MEDS: methADONE HCl 20 MG/2 ML ORAL.CONC 90 MG PO (07:42)
--- NOTE | 2025-04-26 09:43 | P.PNIM_ITS ---
Subjective Subjective Date of Service: 04/26/25 Interval History: f/u on MRSA sepsis and bacteremia and wound infection no new issues, awaiting disposition, jara cath placed No fever Physical Exam 2 Exam: Exam: General: AO X 3, no acute distress Resp: CTA bilateral CVS: S1,S2,RRR GI: +BS, NT, no distention Skin: wound vac in place Neuro: motor grossly intact Psych: appropriate affect Vital Signs: Vital Signs: Last Vital Signs Temp 97.0 F 04/26/25 07:42 Pulse 65 04/26/25 07:42 Resp 18 04/26/25 07:42 BP 138/70 04/26/25 07:42 Pulse Ox 96 04/26/25 07:42 O2 Del Method Room Air 04/26/25 07:42 Objective Data Active Medications Acetaminophen (Acetaminophen 325 Mg Tablet) 650 mg PO Q6H PRN PRN Reason: Pain, Mild 1-3,fever,headache Last Admin: 04/25/25 23:39 Dose: 650 mg Documented By: JOAQUINA Comments: per pt request Baclofen (Baclofen 10 Mg Tablet) 10 mg PO TID [facility] Last Admin: 04/26/25 07:42 Dose: 10 mg Documented By: EMANUEL Bisacodyl (Bisacodyl 10 Mg Supp.Rect) 10 mg DC BEDTIME PRN PRN Reason: Constipation Calcium Carbonate (Calcium Carbonate 750 Mg Tab.Chew) 750 mg PO Q4H PRN PRN Reason: Heartburn Clonidine HCl (Clonidine Hcl 0.1 Mg Tablet) 0.1 mg PO BID [facility]; Protocol Last Admin: 04/26/25 07:42 Dose: 0.1 mg Documented By: EMANUEL Enoxaparin Sodium (Enoxaparin Sodium 40 Mg/0.4 Ml Syringe) 40 mg SUBCUT Q24H [facility] Last Admin: 04/26/25 07:43 Dose: 40 mg Documented By: EMANUEL Folic Acid (Folic Acid 1 Mg Tablet) 1 mg PO DAILY [facility] Last Admin: 04/26/25 08:07 Dose: Not Given Documented By: EMANUEL Non-Admin Reason: NPO Gabapentin (Gabapentin 300 Mg Capsule) 300 mg PO TID [facility] Last Admin: 04/26/25 07:42 Dose: 300 mg Documented By: EMANUEL Hydromorphone HCl (Hydromorphone Hcl 1 Mg/Ml Syringe) 1 mg IVPUSH Q4H PRN; Protocol PRN Reason: 30m prior to wound care Last Admin: 04/21/25 15:32 Dose: 1 mg Documented By: SUZIE Hydromorphone HCl (Hydromorphone Hcl 2 Mg Tablet) 4 mg PO Q3H PRN PRN Reason: Pain, Severe (Pain Scale 7-10) Last Admin: 04/26/25 07:42 Dose: 4 mg Documented By: EMANUEL Vancomycin HCl 1,250 mg/ (Sodium Chloride) 250 mls @ 166.667 mls/hr IV Q12H [facility] Last Infusion: 04/26/25 01:16 Dose: Infused Documented By: JOAQUINA Lorazepam (Lorazepam 1 Mg Tablet) 1 mg PO Q6H PRN PRN Reason: Anxiety Magnesium Hydroxide (Milk Of Magnesia 30 Ml Oral.Susp) 30 ml PO DAILY PRN PRN Reason: Constipation Melatonin (Melatonin 3 Mg Tablet) 6 mg PO BEDTIME PRN PRN Reason: Insomnia Methadone HCl (Methadone Hcl 20 Mg/2 Ml Oral.Conc) 90 mg PO DAILY@0800 [facility] Last Admin: 04/26/25 07:42 Dose: 90 mg Documented By: EMANUEL Co-signed By: EDDA Methadone HCl (Methadone Hcl 20 Mg/2 Ml Oral.Conc) 45 mg PO DAILY@2100 [facility] Last Admin: 04/25/25 20:26 Dose: 45 mg Documented By: JOAQUINA Co-signed By: KOREY Multivitamins/Vitamin C (Multivitamin Tablet) 1 tab PO DAILY [facility] Last Admin: 04/26/25 08:07 Dose: Not Given Documented By: EMANUEL Non-Admin Reason: NPO Naloxone HCl (Naloxone Hcl 0.4 Mg/Ml Vial) 0.1 mg IVPUSH Q5M PRN PRN Reason: Opiate Reversal Pharmacy Consult (Consult Rx Vancomycin Dosing) 1 each MISCELLANE DAILY PRN PRN Reason: Consult order Senna/Docusate Sodium (Sennosides/Docusate Sodium Tablet) 1 tab PO BEDTIME [facility] Last Admin: 04/25/25 20:28 Dose: 1 tab Documented By: JOAQUINA Sodium Chloride (0.9 % Sodium Chloride Flush 3 Ml Syringe) 3 ml IVFLUSH QSHIFT [facility] Last Admin: 04/26/25 07:47 Dose: Not Given Documented By: EMANUEL Non-Admin Reason: Previously Administered Thiamine HCl (Thiamine Hcl 100 Mg Tablet) 100 mg PO DAILY [facility] Last Admin: 04/26/25 08:07 Dose: Not Given Documented By: EMANUEL Non-Admin Reason: NPO Labs 04/21/25 08:50 04/26/25 06:38 Labs: Laboratory Results - last 24 hr 04/25/25 04/26/25 20:54 06:38 Estim Creat Clear Calc 105.2 Estimated GFR > 60 Random Vancomycin 14.9 L Assessment and Plan (1) Substance use disorder: Status: Acute (2) Depression: Status: Acute (3) Anxiety: Status: Acute (4) IV drug abuse: Status: Acute (5) Opioid use disorder, severe, dependence: Status: Acute (6) GERD (gastroesophageal reflux disease): Status: Acute (7) Cellulitis: Status: Acute (8) Sepsis: Status: Acute (9) Abscess of right upper arm and forearm: Status: Acute (10) Abscess of left upper arm and forearm: Status: Acute (11) Myositis: Status: Acute (12) Open wound of right upper extremity: Status: Acute (13) Open wound of left upper arm: Status: Acute (14) Fasciitis: Status: Acute Plan This is a 34-year-old female with a history of intravenous drug use (IVDU), prior methadone overdose, xylazine-associated left forearm infection, depression/anxiety (self-medicating with street-purchased Xanax and clonidine), and substance use disorder (heroin/fentanyl, cocaine). She presents for ongoing management of severe bilateral upper extremity infections and complications following recent hospitalizations. The patient was initially admitted on 04/02/25 with sepsis secondary to a right upper extremity abscess and cellulitis with myositis, related to IVDU. She underwent incision and drainage (I&D) of the right shoulder and was transferred to [facility] for further extensive debridement and I&D of multiple bilateral upper extremity abscesses. She returned to [facility] on 04/14/25 for continued care. Sepsis (MRSA-positive): Met sepsis criteria on 04/02 (bandemia 41%, lactic acid 2.7 ? 1.8 after fluids, tachycardia, elevated ESR/CRP). Blood cultures last negative on 04/09/25. No valvular vegetations on TTE; possible micro-seeding. Ongoing antibiotics: Vancomycin (through 05/07/25), Clindamycin (through 04/15/25), then Doxycycline (05/08?05/22/25). Bilateral Upper Extremity Infections: Abscesses, cellulitis, fasciitis, and myositis confirmed on imaging. Multiple I&Ds performed (RUE biceps/triceps, LUE antecubital fossa). Wound care and wound vac management per surgery Venous Access: Jara cath 04/24 Acute Blood Loss Anemia: S/p hematoma with clot evacuation (04/08/25). Received 1 unit PRBC at [place]; Hgb dropped to 6.7 mg/dL today. Received 2 units PRBC on 04/18/25 without complication. Monitor H&H. Substance Use Disorder: On methadone 135 mg daily (confirmed with addiction medicine). Addiction medicine following Found using illicit substances during admission; items confiscated. Policy: No visitors, all items searched, video monitoring continued--unless otherwise authorized Electrolyte Abnormalities: Mild hyponatremia (resolved). HypOkalemia, resolved Anxiety: Ativan PRN Other Chronic Issues: GERD: Protonix BID. Constipation: Milk of magnesia as needed. Continue current antibiotics as scheduled. Replac right IJ with jara cath Continue wound care and surgical follow-up. Continue methadone; addiction medicine following Maintain current safety and monitoring protocols with no visitors Monitor labs, electrolytes, and hemoglobin/hematocrit as needed Supportive care for GERD and constipation. Quality Metrics: * VTE prophylaxis: Enoxaparin * Code status: Full code * Diet: Regular Total time managing care of this patient today: 35 minutes. Quality Stroke Does the patient have a stroke diagnosis?: No VTE Prior VTE?: No VTE Risk Level:: Medical - moderate - high VTE Device Contraindication: Treatment Not Indicated VTE Drug Contraindication: N/A - Med Ordered
[2025-04-26 11:40] VITALS: BP 149/74; PULSE 62; RESP 18; TEMP 36.5; O2SAT 98
--- NOTE | 2025-04-26 13:20 | PM.DS ---
DS: Providers Provider Date of Service: 04/26/25 Date of admission: 04/14/25 21:20 Date of discharge: 04/26/25 Primary care physician: None Physician Admitting clinician: Dylan Stephenson Consults: 04/14/25 21:52 Addiction Medicine Provider Routine Consulting Provider: Addiction Covering Reason for consultation: history of substance use 04/15/25 00:41 Consult to Wound Care Routine Reason for consultation: Please see nursing notes for wound care instructions per [facility] Has provider been notified: No 04/15/25 10:43 Consult to General Surgery Routine Consulting Provider[place] [facility] [place] [facility] Reason for consultation: multiple I&Ds upper extremities 04/15/25 16:33 Addiction Medicine Provider Routine Consulting Provider: Addiction Covering Reason for consultation: using illicit substances while inpatient Has provider been notified: No Attending physician on discharge: Nelly Bernstein DS: Diagnosis Discharge Diagnosis (1) Substance use disorder: Status: Acute (2) Depression: Status: Acute (3) Anxiety: Status: Acute (4) IV drug abuse: Status: Acute (5) Opioid use disorder, severe, dependence: Status: Acute (6) GERD (gastroesophageal reflux disease): Status: Acute (7) Cellulitis: Status: Acute (8) Sepsis: Status: Acute (9) Abscess of right upper arm and forearm: Status: Acute (10) Abscess of left upper arm and forearm: Status: Acute (11) Myositis: Status: Acute (12) Open wound of right upper extremity: Status: Acute (13) Open wound of left upper arm: Status: Acute (14) Fasciitis: Status: Acute Physical Exam Vital Signs: Vital Signs: Last Vital Signs Temp 97.7 F 04/26/25 11:40 Pulse 62 04/26/25 11:40 Resp 18 04/26/25 11:40 BP 149/74 H 04/26/25 11:40 Pulse Ox 98 04/26/25 11:40 O2 Del Method Room Air 04/26/25 11:40 DS: Data Data Completed and Pending Completed studies during hospitalization [Text1]: Procedures Drainage of Right Upper Arm Subcutaneous Tissue and Fascia, Open Approach (04/02/25) Labs on day of discharge: Laboratory Results - last 24 hr 04/25/25 04/26/25 20:54 06:38 Creatinine 0.66 Estim Creat Clear Calc 105.2 Estimated GFR > 60 Random Vancomycin 14.9 L Discharge Plan Discharge Anticipated Discharge Date/Time: 04/26/25 13:22 Patient Disposition: Xfer Other Discharge Diagnosis: soft tissue arms and chest wounds from abscess from ivda Referrals: [facility] [Outside] - 1 Day Referral Note: INPT REHAB Physician,None [Primary Care Provider, Medical] - 1 Week Discharge Medications: New multivitamin [Daily-Sen] Tablet 1 tab PO DAILY Qty: 30 0RF clonidine HCl 0.1 mg Tablet 0.1 mg PO BID Qty: 30 0RF Protocol: Hold for SBP< HOLD for SBP < : 90 acetaminophen 325 mg Tablet 650 mg PO Q6H PRN (Reason: Pain, Mild 1-3,Fever,Headache) Qty: 30 0RF naloxone 0.4 mg/mL Solution 0.1 mg IVPUSH Q5M PRN (Reason: Opiate Reversal) Qty: 1 0RF melatonin 3 mg Tablet 6 mg PO BEDTIME PRN (Reason: Insomnia) Qty: 30 0RF hydromorphone 2 mg Tablet 4 mg PO Q3H PRN (Reason: Pain, Severe (Pain Scale 7-10)) Qty: 20 0RF Rx Instructions: Partial Fill upon patient request. baclofen 10 mg Tablet 10 mg PO TID Qty: 30 0RF gabapentin 300 mg Capsule 300 mg PO TID Qty: 30 0RF lorazepam 1 mg Tablet 1 mg PO Q6H PRN (Reason: Anxiety) Qty: 20 0RF thiamine mononitrate (vit B1) 100 mg Tablet 100 mg PO DAILY Qty: 30 0RF Continued methadone [Methadone Intensol] 10 mg/mL Concentrate 130 mg PO DAILY methadone 5 mg Tablet 45 mg PO Q8H Rx Instructions: max daily amount 135 mg doxycycline hyclate 100 mg Tablet 100 mg PO BID Rx Instructions: Stop taking 05/08/25 dextroamphetamine-amphetamine [Adderall] 20 mg Tablet 35 mg PO DAILY dextroamphetamine-amphetamine [Adderall] 5 mg Tablet 5 mg PO DAILY Discharge Orders: Discharge Order (Routine); Ordered 04/26/25 Ordered By: Nelly Bernstein Diet: Regular diet Activity on Discharge: As tolerated Stand Alone Forms: Patient Portal Discharge page Print Language: Niuean Activity Restrictions/Additional Instructions: pt is encouraged to actively and passively move her right and left arms open and closed flexion extension abduction and adduction several times daily Daily PT to encourage if able Care Plan Goals: closure and healing of wounds completion of antibiotics abstinance from drugs Health Concerns: infection Plan of Treatment: Dressing changes---- can premedicate with po dilaudid and ativan before dressing 30 min For friday 04/27 - saline wet to dry gauze dressing on right chest and arm wounds. cover with dry gauze and wrap with kerlex roll and tape the left arm antecubital wound can be packed with hydrofera blue and changed every other day. done on 04/26 so only needs to be done again on 04/28 On Saturday 04/28 place wound vac on the chest open area - black gauze with 125 suction. change on monday and monday. For right arm wound cont with saline wet to dry daily until seen in the office Needs to fu with general surgery team in 2 weeks. call for an appointment -[phone] Assessment: doing very well
--- NOTE | 2025-04-26 13:34 | P.DS_ITS ---
DS: Providers Provider Date of Service: 04/26/25 Date of admission: 04/14/25 21:20 Date of discharge: 04/26/25 Primary care physician: None Physician Consults: 04/14/25 21:52 Addiction Medicine Provider Routine Consulting Provider: Addiction Covering Reason for consultation: history of substance use 04/15/25 00:41 Consult to Wound Care Routine Reason for consultation: Please see nursing notes for wound care instructions per [facility] Has provider been notified: No 04/15/25 10:43 Consult to General Surgery Routine Consulting Provider: [facility] General Surgeons Reason for consultation: multiple I&Ds upper extremities 04/15/25 16:33 Addiction Medicine Provider Routine Consulting Provider: Addiction Covering Reason for consultation: using illicit substances while inpatient Has provider been notified: No DS: Diagnosis Discharge Diagnosis (1) Substance use disorder: Status: Acute (2) Depression: Status: Acute (3) Anxiety: Status: Acute (4) IV drug abuse: Status: Acute (5) Opioid use disorder, severe, dependence: Status: Acute (6) GERD (gastroesophageal reflux disease): Status: Acute (7) Cellulitis: Status: Acute (8) Sepsis: Status: Acute (9) Abscess of right upper arm and forearm: Status: Acute (10) Abscess of left upper arm and forearm: Status: Acute (11) Myositis: Status: Acute (12) Open wound of right upper extremity: Status: Acute (13) Open wound of left upper arm: Status: Acute (14) Fasciitis: Status: Acute DS: Summary Hospital Course Hospital Course: Admission HPI Chief Complaint: Transfer for [place] Molly Beasley is a 34 years old woman with past medical history significant for IVDU on methadone. She was transferred from [facility] after she underwent multiple surgical procedures to her lower extremities. She was initially hospitalized here at the beginning of this month for cellulitis and abscesses for which she had a I&D by General surgery. At [facility], she was found to have an abscess around the right axilla and the biceps and left distal bicep. On April 08, she was taken to the OR and underwent a right upper extremity and left upper extremity I&D washout. Infectious Disease evaluated the patient and changed the vancomycin to linezolid. Another washout was performed. She developed bleeding from the wounds and a clot was evacuated. She received transfusion of 1 PRBC. Today (april 14), the patient was transferred to this hospital for ongoing dressing changes, pain medications and IV antibiotics per ID plan as the following: Continue vancomycin IV for 4 weeks after last negative blood culture (04/09/2025) vancomycin and date 05/07/2025, followed by 2 weeks of p.o. doxycycline (05/08/2025-05/22/2025); continue clindamycin IV #4/5 (ENDS 04/15/2025). Hospital course (at [facility] ) This is a 34-year-old female with a history of intravenous drug use (IVDU), prior methadone overdose, xylazine-associated left forearm infection, depression/anxiety (self-medicating with street-purchased Xanax and clonidine), and substance use disorder (heroin/fentanyl, cocaine). She was admitted to [facility] on 04/02/25 with sepsis secondary to a right upper extremity abscess and cellulitis with myositis, and MRSA bacteremia related to IVDU. On 04/03/25, she underwent incision and drainage (I&D) by surgery. Subsequent CT imaging of both upper extremities revealed extensive abscesses, phlegmon, tenosynovitis, superimposed fasciitis, myositis, and possible tissue necrosis. Due to the extensive disease burden, she was transferred to [facility] on 04/06/25 for a higher level of care. At [facility], she underwent right and left upper extremity I&D and washout on 04/08/25. Infectious Disease changed her antibiotics from vancomycin to linezolid. She required additional washouts and developed wound bleeding, necessitating clot evacuation and transfusion of 1 unit PRBC. She was transferred back to [facility] on 04/14/25 for ongoing wound care, pain management, and IV antibiotics. Her Infectious Disease plan includes: * IV vancomycin for 4 weeks after the last negative blood culture (04/09/25), with an end date of 05/07/25. * Followed by oral doxycycline for 2 weeks (05/08/25?05/22/25). * She also completed a 5-day course of clindamycin. Echocardiogram has not shown evidence of endocarditis. She continues to be followed by surgery and has undergone multiple debridements. Wound VACs are in place on the right arm and chest wounds. Due to significant pain, wound VAC changes have been performed in the OR, but today the change was successfully completed at the bedside with premedication (IV dilaudid and PO Ativan). Post-Discharge Plan: * Dressing changes: May premedicate with IV dilaudid and PO Ativan 30 minutes prior to dressing changes as needed for pain control. Wound Care and Follow-Up Instructions For 04/27/25: Right chest and right arm wounds: Apply saline wet-to-dry gauze dressing. Cover with dry gauze, then wrap with Kerlex roll and secure with tape. Left arm antecubital wound: No dressing change needed on 04/27/25 (last changed on 04/26/25). Continue with Hydrofera Blue packing, to be changed every other day. Next change due on 04/28/25. For 04/28/25: * Chest wound: * Apply wound VAC with black foam at 125 mmHg suction. * Change wound VAC dressing on Wednesdays and Fridays. * Right arm wound:Continue daily saline wet-to-dry dressing changes until follow-up with Dr. Gudino. Ongoing: * Left arm antecubital wound: Continue Hydrofera Blue packing, changing every other day. Follow-Up: * Schedule follow-up with the general surgery team in 2 weeks. * Call [phone] to make the appointment. Pain Management: * May premedicate with IV dilaudid if not able to tolerate PO, and PO Ativan 30 minutes prior to dressing changes as needed for pain control. Final diagnoses: MRSA sepsis and bacteremia Bilateral upper extremity infection--abscess, ceulluitis, myositis Acute blood anemia requiring transfusion Chronic substance use (opioid ) Hyponatremia Anxiety GERD Constipation Time Attestation Discharge Coordination Time (in mins): 45 Quality: Safe Use of Opioids Does Pt have an Active Cancer Diagnosis on the Problem List?: No Quality: Stroke Does the patient have a stroke diagnosis?: No Physical Exam Vital Signs: Vital Signs: Last Vital Signs Temp 97.7 F 04/26/25 11:40 Pulse 62 04/26/25 11:40 Resp 18 04/26/25 11:40 BP 149/74 H 04/26/25 11:40 Pulse Ox 98 04/26/25 11:40 O2 Del Method Room Air 04/26/25 11:40 DS: Data Data Completed and Pending Completed studies during hospitalization [Text1]: Procedures Drainage of Right Upper Arm Subcutaneous Tissue and Fascia, Open Approach (04/02/25) Labs on day of discharge: Laboratory Results - last 24 hr 04/25/25 04/26/25 20:54 06:38 Creatinine 0.66 Estim Creat Clear Calc 105.2 Estimated GFR > 60 Random Vancomycin 14.9 L Discharge Plan Discharge Anticipated Discharge Date/Time: 04/26/25 13:22 Patient Disposition: Xfer Other Discharge Diagnosis: soft tissue arms and chest wounds from abscess from ivda Referrals: [facility] [Outside] - 1 Day Referral Note: INPT REHAB Physician,None [Primary Care Provider, Medical] - 1 Week Discharge Medications: New multivitamin [Daily-Sen] Tablet 1 tab PO DAILY Qty: 30 0RF clonidine HCl 0.1 mg Tablet 0.1 mg PO BID Qty: 30 0RF Protocol: Hold for SBP< HOLD for SBP < : 90 acetaminophen 325 mg Tablet 650 mg PO Q6H PRN (Reason: Pain, Mild 1-3,Fever,Headache) Qty: 30 0RF naloxone 0.4 mg/mL Solution 0.1 mg IVPUSH Q5M PRN (Reason: Opiate Reversal) Qty: 1 0RF melatonin 3 mg Tablet 6 mg PO BEDTIME PRN (Reason: Insomnia) Qty: 30 0RF hydromorphone 2 mg Tablet 4 mg PO Q3H PRN (Reason: Pain, Severe (Pain Scale 7-10)) Qty: 20 0RF Rx Instructions: Partial Fill upon patient request. baclofen 10 mg Tablet 10 mg PO TID Qty: 30 0RF gabapentin 300 mg Capsule 300 mg PO TID Qty: 30 0RF lorazepam 1 mg Tablet 1 mg PO Q6H PRN (Reason: Anxiety) Qty: 20 0RF thiamine mononitrate (vit B1) 100 mg Tablet 100 mg PO DAILY Qty: 30 0RF vancomycin in 0.9 % sodium chl 1.25 gram/250 mL solution 1 g IV Q12H 12 Days hydromorphone in 0.9 % NaCl 1 mg/50 mL solution 1 mg IV Q12H PRN (Reason: Before dressing change) Qty: 600 0RF Rx Instructions: Partial Fill upon patient request. doxycycline monohydrate 100 mg capsule 100 mg PO BID 14 Days Qty: 28 0RF Rx Instructions: Start taking on Nov 6 after finish taking Vancomycin IV lorazepam [Ativan] 1 mg tablet 1 mg PO Q6H PRN (Reason: anxiety) Qty: 20 0RF Continued methadone [Methadone Intensol] 10 mg/mL Concentrate 130 mg PO DAILY methadone 5 mg Tablet 45 mg PO Q8H Rx Instructions: max daily amount 135 mg dextroamphetamine-amphetamine [Adderall] 20 mg Tablet 35 mg PO DAILY dextroamphetamine-amphetamine [Adderall] 5 mg Tablet 5 mg PO DAILY Discharge Orders: Discharge Order (Routine); Ordered 04/26/25 Ordered By: Nelly Bernstein Diet: Regular diet Activity on Discharge: As tolerated Stand Alone Forms: Patient Portal Discharge page Print Language: Nepali Activity Restrictions/Additional Instructions: pt is encouraged to actively and passively move her right and left arms open and closed flexion extension abduction and adduction several times daily Daily PT to encourage if able Care Plan Goals: closure and healing of wounds completion of antibiotics abstinance from drugs Health Concerns: infection Plan of Treatment: Wound Care and Follow-Up Instructions For 04/27/25: Right chest and right arm wounds: Apply saline wet-to-dry gauze dressing. Cover with dry gauze, then wrap with Kerlex roll and secure with tape. Left arm antecubital wound: No dressing change needed on 04/27/25 (last changed on 04/26/25). Continue with Hydrofera Blue packing, to be changed every other day. Next change due on 04/28/25. For 04/28/25: * Chest wound: * Apply wound VAC with black foam at 125 mmHg suction. * Change wound VAC dressing on Wednesdays and Fridays. * Right arm wound:Continue daily saline wet-to-dry dressing changes until follow-up with Dr. Gudino. Ongoing: * Left arm antecubital wound: Continue Hydrofera Blue packing, changing every other day. Follow-Up: * Schedule follow-up with the general surgery team in 2 weeks. * Call [phone] to make the appointment. Pain Management: * May premedicate with IV dilaudid if PO not enough, and PO Ativan 30 minutes prior to dressing changes as needed for pain control. Assessment: doing very well
--- NOTE | 2025-04-26 13:36 | MHC.CM.PN ---
PT MEDICALLY CLEARED FOR DC TO [facility] WILL PROVIDE BLS TRANSPORT AT 4:30PM
[2025-04-26] MEDS: 0.9 % Sodium Chloride Flush 3 ML SYRINGE IVFLUSH (15:26)
[2025-04-26 16:00] VITALS: BP 135/74; PULSE 75; RESP 16; TEMP 36.6; O2SAT 97
--- NOTE | 2025-05-20 13:56 | PC.NURSE ---
On at 0745 pt administered Hydromorphone 4mg PO for pain scale of 7/10 not 6/10 previous documentation incorrect.
== END 2025-04-26 16:50 | disposition other institution (70) | DRG 364 ==
PROVIDERS: Internal Medicine; Physician Assistant; Radiology Diagnostic Radiology; Surgery; Admitting Provider Hospitalist; Visit Provider Internal Medicine
PROC: 0WQ8XZZ Repair Chest Wall, External Approach (ICD-10-PCS; principal; 2025-04-21 13:00)
PROC: 0JH63XZ Insertion of Tunneled Vascular Access Device into Chest Subcutaneous Tissue and Fascia, Percutaneous Approach (ICD-10-PCS; principal; 2025-04-24 10:00)
DX: L02.414 Cutaneous abscess of left upper limb (principal); M60.021 Infective myositis, right upper arm; L03.114 Cellulitis of left upper limb; D62 Acute posthemorrhagic anemia; F11.20 Opioid dependence, uncomplicated; T65.8 Toxic effect of other specified substances; F41.9 Anxiety disorder, unspecified; L02.413 Cutaneous abscess of right upper limb; M60.022 Infective myositis, left upper arm; M79.5 Residual foreign body in soft tissue; K59.00 Constipation, unspecified; K21.9 Gastro-esophageal reflux disease without esophagitis; L03.113 Cellulitis of right upper limb; Z79.899 Other long term (current) drug therapy
CPT/HCPCS: 36415; 36558; 73080; 76000; 76937; 80048; 80051; 80053; 80202; 80307; 81025; 82565; 83735; 84484; 84702; 85025; 85027; 86850; 86900; 86901; 86923; C1751; C1769; J0131; J0736; J1100; J1171; J1596; J1642; J1650; J1885; J2003; J2250; J2270; J2405; J2704; J2795; J3010; J3360; J3374; J7120; P9016; S9485

== ENCOUNTER 2025-04-14 21:20 | Outpatient (BNV) | payer MEDICAID, SELFPAY | END 2025-04-24 09:06 | PROVIDERS: Admitting Provider Hospitalist; Visit Provider Radiology Diagnostic Radiology | DX: Z45.2 Encounter for adjustment and management of vascular access device (principal) | CPT/HCPCS: 36558; 76000; 76937 ==

== ENCOUNTER 2025-04-14 21:20 | Outpatient (BNV) | payer MEDICAID, SELFPAY | END 2025-04-15 11:25 | PROVIDERS: Admitting Provider Hospitalist; Visit Provider Radiology Diagnostic Radiology | DX: M77.02 Medial epicondylitis, left elbow (principal) | CPT/HCPCS: 73080 ==

== ENCOUNTER → 2025-04-14 21:20 | Outpatient (BNV) | payer OTHER, SELFPAY | PROVIDERS: Admitting Provider Hospitalist; Visit Provider Nurse Practitioner Psychiatric/Mental Health | DX: F11.20 Opioid dependence, uncomplicated (principal) | CPT/HCPCS: 99232 ==

== ENCOUNTER → 2025-04-14 21:20 | Outpatient (BNV) | payer MEDICAID, SELFPAY | PROVIDERS: Admitting Provider Hospitalist; Visit Provider Internal Medicine | DX: F19.90 Other psychoactive substance use, unspecified, uncomplicated (principal); F32.A Depression, unspecified; F41.9 Anxiety disorder, unspecified; F19.10 Other psychoactive substance abuse, uncomplicated; F11.20 Opioid dependence, uncomplicated; K21.9 Gastro-esophageal reflux disease without esophagitis; L03.113 Cellulitis of right upper limb; A41.9 Sepsis, unspecified organism; R65.20 Severe sepsis without septic shock; L02.413 Cutaneous abscess of right upper limb; L02.414 Cutaneous abscess of left upper limb; M60.011 Infective myositis, right shoulder; S41.101A Unspecified open wound of right upper arm, initial encounter; S41.102A Unspecified open wound of left upper arm, initial encounter; M72.9 Fibroblastic disorder, unspecified | CPT/HCPCS: 99232 ==

== ENCOUNTER → 2025-04-14 21:20 | Outpatient (BNV) | payer MEDICAID, SELFPAY | PROVIDERS: Admitting Provider Hospitalist; Visit Provider Physician Assistant Surgical | DX: L02.413 Cutaneous abscess of right upper limb (principal); L02.414 Cutaneous abscess of left upper limb | CPT/HCPCS: 99222 ==

== ENCOUNTER 2025-05-07 14:13 | Outpatient (AMB) | payer MEDICAID, SELFPAY ==
[2025-05-07 14:35] VITALS: PULSE 80; TEMP 36.9; O2SAT 97; BMI 27.6
--- NOTE | 2025-05-07 14:35 | MHC.OFFVIS ---
Vital Signs 05/07/25 14:35 Height 5 ft 2 in Weight 151 lb BMI 27.6 Pulse 80 Pulse Source Pulse Oximeter Temp 98.4 F Temp Source Oral Pulse Oximetry (%) 97 Oxygen Delivery Method Room Air Intake Visit Reasons: [facility] reff/bacteremia antibiotics end 05/07 Allergies No Known Allergies Allergy (Verified 05/07/25 14:36) HPI Comments Details: History of Present Illness The patient is a 34-year-old female presenting with a follow-up for MRSA bacteremia. Initially diagnosed on April 02, the infection was associated with cellulitis in her left arm. The cellulitis is noted to have improved following treatment. Blood cultures on April 09 were recorded as negative, demonstrating treatment efficacy but I dont see them posted Her infectious history is further complicated by a positive Hep C and previously documented hepatitis C for which viral load and genotype require assessment. Review of Systems - Skin: Reports previous cellulitis of the left arm. - Immunologic: Reports history of MRSA bacteremia. - Hepatic: Reports positive, history of hepatitis C. Physical Exam - Skin- Improved cellulitis, left arm. - Cardiac- Heart in straight rhythm. - Respiratory- Lungs clear. - Abdominal- Soft, non-tender. - Musculoskeletal- No tenderness in extremities, improved arm condition. Results - Labs: Repeat blood culture on April 09 indicating negative for MRSA by verbal,dont see - Tests: Transthoracic echocardiogram reported as unremarkable. Plan Patient was informed and verbally consented to the use of an ambient scribe for clinic note documentation during this visit. 1. Bacteremia R78.81 The improvement in MRSA bacteremia, following initial treatment, justifies cessation of intravenous vancomycin therapy. Doxycycline, to be taken orally, is prescribed to cover any subsisting infections. The importance of infertility precautions was discussed. 2. Cellulitis Of The Left Arm Symptomatic improvement in left arm cellulitis aligns with bacterial eradication, negating further urgent intervention. 3. Hepatitis C Virus Evaluation of viral load and necessary liver assessments will guide subsequent management steps for hepatitis C. Discussion Notes During our discussion, I apprised the patient of her MRSA bacteremia status, ensuring clarity regarding the negative cultures and improvement in cellulitis. Addressed discontinuation of IV vancomycin, moving to doxycycline. Risks, particularly teratogenicity, were communicated with advised precautions. Regarding her hepatitis C, we outlined necessary diagnostic steps to tailor future treatment. Medical Decision Making My decision-making process involved evaluating the marked improvement in the patient's MRSA bacteremia following initial treatment. With cellulitis amelioration and negative cultures, the transition away from IV vancomycin to oral doxycycline was logical, mitigating infection risks. Hepatitis C requires ongoing monitoring to ensure well-informed management. Patient Instructions - Stop IV vancomycin today. - Take doxycycline 100 mg by mouth twice daily for one month. - Do not get while taking doxycycline; use effective control. - Follow up for blood work and hepatitis C assessments. - Return to care if symptoms worsen. [facility] Medical History (Updated 05/07/25 @ 14:48 by Angelina Denton MD) Hepatitis C MRSA bacteremia Toxic effect of xylazine History of drug overdose Depression Anxiety IV drug abuse Substance use disorder Surgical History History of tonsillectomy and adenoidectomy Hx of section Social History Household Members: Significant Other Housing: Apartment Do you presently have visiting nurse or other home services: No Comment: stay with patient at bedside commode Patient Tobacco Use Status: Current everyday Tobacco user Tobacco use type: Cigarette Cigarettes Per Day: 5 e-Cigarette/Vaping Use: Currently Using Substance Use Type: Crack/Cocaine, Heroin and Marijuana service: No Physical Exam Vital Signs: Last Vital Signs Temp 98.4 F 05/07/25 14:35 Pulse 80 05/07/25 14:35 Pulse Ox 97 05/07/25 14:35 Oxygen Delivery Method Room Air 05/07/25 14:35 BMI result Body Mass Index 27.6 Assessment & Plan Assessment & Plan (1) MRSA bacteremia: Code(s): R78.81 - Bacteremia; B95.62 - Methicillin resistant Staphylococcus aureus infection as the cause of diseases classified elsewhere Category: Medical Plan: as above (2) Hepatitis C: Code(s): B19.20 - Unspecified viral hepatitis C without hepatic coma Category: Medical Plan: as above Orders: Orders Blood Culture X2 Today B95.62 - Methicillin resistant Staphylococcus aureus infection as the cause of diseases classified elsewhere, R78.81 - Bacteremia Complete Blood Count Auto Diff Today B19.20 - Unspecified viral hepatitis C without hepatic coma IR cvc remove any age Today B95.62 - Methicillin resistant Staphylococcus aureus infection as the cause of diseases classified elsewhere, R78.81 - Bacteremia Hepatitis C Viral Load Today B19.20 - Unspecified viral hepatitis C without hepatic coma Hepatitis C Genotype Today B19.20 - Unspecified viral hepatitis C without hepatic coma Liver Fibrosis Pnl Today B19.20 - Unspecified viral hepatitis C without hepatic coma Prothrombin Time INR Today B19.20 - Unspecified viral hepatitis C without hepatic coma Liver Panel Today B19.20 - Unspecified viral hepatitis C without hepatic coma Creatinine Today B19.20 - Unspecified viral hepatitis C without hepatic coma Medications: New doxycycline hyclate 100 mg PO BID 60 caps 0RF 30 days Coding Level of Care Code Est Pt Level 4 (09413) Diagnoses MRSA bacteremia R78.81; B95.62 Hepatitis C B19.20
--- OUTSIDE RECORDS SUMMARY | 2025-05-07 17:22 | XMS_ITS | Clinical Summary ---
Author Organization [facility] Address [address] [place] [address] Care Team Providers Care Risk Lead Name Role Phone System, Provider Not In Primary Care Provider Un available Allergies No known active allergies Medications naloxone (NARCAN) 0.4 mg/mL injectionIndicat ions:Abscess of arm, right Infuse 1 mL (0.4 mg total) into a venous catheter every 5 (five) minutes as needed for opioid reversal or respiratory depression. 04/14/20 Active bisacodyl (DULCOLAX) 10 MG suppositoryIndic ations:Abscess of arm, right Insert 1 suppository (10 mg total) into the rectum daily as needed for constipation (if no bowel movement by day 2). 04/14/20 Active senna-docusate (SENNA-S) 8.6-50 MGIndications:Ab scess of arm, right Take 1 tablet by mouth nightly. 04/14/20 025 Active glucose (GLUTOSE 15) 40 % oral gelIndications:A bscess of arm, right Take 1 Tube (37.5 g total) by mouth every 15 (fifteen) minutes as needed for low blood sugar (between 50 and 69 mg/dL). 04/14/20 025 Active glucose (GLUTOSE 15) 40 % oral gelIndications:A bscess of arm, right Take 2 Tubes (75 g total) by mouth every 15 (fifteen) minutes as needed for low blood sugar (less than 50 mg/dL). 04/14/20 025 Active dextrose 50 % solutionIndicati ons:Abscess of arm, right Infuse 25 mL (12.5 g total) into a venous catheter every 15 (fifteen) minutes as needed for low blood sugar (between 50 and 69 mg/dL). 04/14/20 Active dextrose 50 % solutionIndicati ons:Abscess of arm, right Infuse 50 mL (25 g total) into a venous catheter every 15 (fifteen) minutes as needed for low blood sugar (less than 50 mg/dL). 04/14/20 Active glucagon (GLUCAGEN) 1 mg Recon Soln injectionIndicat ions:Abscess of arm, right Inject 1 mg into the shoulder, thigh, or buttocks daily as needed for low blood sugar (for Blood Glucose LESS than 70 mg/dL and NPO and no IV access). 04/14/20 Active insulin lispro (HumaLOG/ADMELOG ) 100 units/mL injectionIndicat ions:Abscess of arm, right Inject 0.01-0.06 mL (1-6 Units total) under the skin every 4 (four) hours. 04/14/20 Active ondansetron (ZOFRAN) 4 MG/2ML injectionIndicat ions:Abscess of arm, right Infuse 2 mL (4 mg total) into a venous catheter 4 times daily (every 6 hours) as needed for nausea or vomiting. 04/14/20 Active acetaminophen (TYLENOL) 325 MG tabletIndication s:Abscess of arm, right Take 3 tablets (975 mg total) by mouth every 6 (six) hours around the clock. 04/14/20 Active albuterol (PROVENTIL) (0.083%) 2.5 mg/3 mL nebulizer solutionIndicati ons:Abscess of arm, right Take 3 mL (2.5 mg total) by nebulization 4 times daily (every 6 hours) as needed for wheezing or shortness of breath. 04/14/20 Active baclofen (LIORESAL) 10 MG tabletIndication s:Abscess of arm, right Take 1 tablet (10 mg total) by mouth every 8 (eight) hours around the clock. 04/15/20 Active cloNIDine (CATAPRES) 0.1 MG tabletIndication s:Abscess of arm, right Take 1 tablet (0.1 mg total) by mouth 2 (two) times a day. 04/14/20 Active folic acid (FOLVITE) 1 MG tabletIndication s:Abscess of arm, right Take 1 tablet (1 mg total) by mouth daily. 04/15/20 Active gabapentin (NEURONTIN) 300 MG capsuleIndicatio ns:Abscess of arm, right Take 1 capsule (300 mg total) by mouth every 8 (eight) hours around the clock. 04/15/20 Active Heparin Sodium, Porcine, (heparin, porcine,) 5000 unit/mL injectionIndicat ions:Abscess of arm, right Inject 1 mL (5,000 Units total) under the skin every 8 (eight) hours around the clock. 04/15/20 Active HYDROmorphone (DILAUDID) 1 mg/mL injectionIndicat ions:Abscess of arm, right Infuse 1 mL (1 mg total) into a venous catheter daily as needed (DURING DRESSING CHANGES ONLY). Max Daily Amount: 1 mg 04/14/20 Active HYDROmorphone (DILAUDID) 4 MG tabletIndication s:Abscess of arm, right Take 1 tablet (4 mg total) by mouth every 3 (three) hours as needed for moderate pain. Max Daily Amount: 32 mg 04/14/20 Active HYDROmorphone (DILAUDID) 2 MG tabletIndication s:Abscess of arm, right Take 3 tablets (6 mg total) by mouth every 3 (three) hours as needed for severe pain. Max Daily Amount: 48 mg 04/14/20 Active ketorolac (TORADOL) 15 MG/ML injectionIndicat ions:Abscess of arm, right Infuse 1 mL (15 mg total) into a venous catheter every 6 (six) hours around the clock. 04/14/20 Active methadone (DOLOPHINE) 5 MG tabletIndication s:Abscess of arm, right Take 9 tablets (45 mg total) by mouth every 8 (eight) hours around the clock. Max Daily Amount: 135 mg 04/14/20 Active multivitamin Tab tabletIndication s:Abscess of arm, right Take 1 tablet by mouth daily. 04/15/20 Active naloxegol (MOVANTIK) 12.5 MG tabletIndication s:Opioid-Induced Constipation Take 1 tablet (12.5 mg total) by mouth every morning before breakfast. 04/15/20 Active polyethylene glycol (miraLAx) 17 g packetIndication s:Abscess of arm, right Take 1 packet (17 g total) by mouth daily. 04/15/20 Active potassium phosphate and sodium phosphate (K PHOS NEUTRAL) 155-852-130 MG tabletIndication s:Abscess of arm, right Take 2 tablets by mouth 4 (four) times a day with meals and nightly. 04/14/20 Active thiamine mononitrate (VITAMIN B-1) 100 MG tabletIndication s:Abscess of arm, right Take 1 tablet (100 mg total) by mouth daily. 04/15/20 Active vancomycin 1,250 mg in sodium chloride 0.9 % 250 mL IVPB-WTDIndicati ons:Abscess of arm, right Infuse 1,250 mg into a venous catheter twice daily (every 12 hours). 04/15/20 Active doxycycline (VIBRA-TABS) 100 MG tabletIndication s:Abscess of arm, right Take 1 tablet (100 mg total) by mouth 2 (two) times a day. 04/14/20 Active clindamycin in D5w (CLEOCIN) 900 MG/50ML IVPBIndications: Abscess of arm, right Infuse 50 mL (900 mg total) into a venous catheter 3 times daily (every 8 hours). 04/14/20 Active Problems Problem Noted Date Diagnosed Date [...] 130 mg of methadone, follows up with [facility] Was confirmed by provider at outside hospital. [...] EDT - 04/11/2025 12:06 AM EDT Surgery [facility] [address] [place] [phone] Shaila Solorio MD DEBRIDEMENT WOUND RIGHT UPPER EXTREMITY, LEFT UPPER EXTREMITY, RIGHT CHEST WALL 04/10/2025 9:56 PM EDT Anesthesia Event [facility] [address] [place] [phone] Jacque Lee MD Ritchie, Agatha T PA-C 04/09/2025 2:58 PM EDT - 04/09/2025 4:33 PM EDT Surgery [facility] [address] [place] [phone] Db Lynn MD DEBRIDEMENT UPPER EXTREMITY AND CHEST 04/09/2025 2:49 PM EDT Anesthesia Event Day [facility] [address] [place] [phone] Олег Vasquez DO Ritchie, Agatha T PA-C 04/08/2025 7:01 PM EDT Anesthesia Event Day [facility] [address] [place] [phone] Cuauhtemoc Collins MD Ritchie, Agatha T PA-C 04/08/2025 6:00 PM EDT - 04/08/2025 7:24 PM EDT Surgery Day [facility] [address] [place] [phone] Galdino Cunningham MD INCISION & DRAINAGE 04/07/2025 4:50 PM EDT Ancillary Procedure [facility] at [address] [phone] Daisy Galdamez CONNER 04/07/2025 2:15 PM EDT Anesthesia Event Day [facility] [address] [place] [phone] Juan J Hagan MD Ritchie, Agatha T, CONNER 04/07/2025 1:27 PM EDT - 04/07/2025 3:01 PM EDT Surgery Day [facility] [address] [place] [phone] Db Lynn MD INCISION & DRAINAGE AND DEBRIDEMENT UPPER EXTREMITY 04/07/2025 7:25 AM EDT Ancillary Procedure [facility] [address] [place] [phone] Provider, File Room 04/07/2025 7:20 AM EDT Ancillary Procedure [facility] [address] [place] [phone] Provider, File Room 04/07/2025 7:15 AM EDT Ancillary Procedure [facility] [address] [place] [phone] Provider, File Room 04/07/2025 7:10 AM EDT Ancillary Procedure [facility] [address] [place] [phone] Provider, File Room 04/07/2025 7:05 AM EDT Ancillary Procedure [facility] [address] [place] [phone] Provider, File Room 04/07/2025 7:00 AM EDT Ancillary Procedure [facility] [address] [place] [phone] Provider, File Room 04/07/2025 7:00 AM EDT Ancillary Procedure [facility] [address] [place] [phone] Provider, File Room 04/07/2025 6:55 AM EDT Ancillary Procedure [facility] [address] [place] [phone] Provider, File Room 04/07/2025 6:55 AM EDT Ancillary Procedure [facility] [address] [place] [phone] Provider, File Room 04/07/2025 12:40 AM EDT Ancillary Procedure [facility] [address] [place] [phone] Provider, File Room 04/07/2025 12:35 AM EDT Ancillary Procedure [facility] [address] [place] [address], [place] [phone] Provider, File Room 04/07/2025 12:30 AM EDT Ancillary Procedure [facility] [address] [facility] [place] [phone] Provider, File Room 04/07/2025 12:25 AM EDT Ancillary Procedure [facility] [address] [place] [address], [place] [phone] Provider, File Room 04/07/2025 12:20 AM EDT Ancillary Procedure [facility] [address] [place] [address], [place] [phone] Provider, File Room 04/07/2025 12:15 AM EDT Ancillary Procedure [facility] [address] [place] [address], [place] [phone] Provider, File Room 04/07/2025 12:15 AM EDT Ancillary Procedure [facility] [address] [place] [address], [place] [phone] Provider, File Room 04/07/2025 12:10 AM EDT Ancillary Procedure [facility] [address] [place] [address], [place] [phone] Provider, File Room 04/07/2025 12:10 AM EDT Ancillary Procedure [facility] [address] [place] [address], [place] [phone] Provider, File Room 04/06/2025 8:42 PM EDT - 04/14/2025 8:20 PM EDT Hospital Encounter [facility] [address] [place] [phone] Kenton Medina MD Lubaina, Fnu, MD Kottarathara, Mathew J, MD Costanzo, MD Anika Ybarra Daniel, MD Croteau, Galdino Galdamez MD Abscess of arm, right (Primary Dx) Discharge Disposition: Short Term[facility]Acute Care Hospital 04/06/2025 Travel from Last 3 Months Social History Tobacco Use Types Packs/Day Years Used Date Smoking Tobacco: Every Day Cigarettes Passive Smoke Exposure: Current Smokeless Tobacco: Current Tobacco Cessation:Ready to Q uit: No; Counseling Given: Not Answered [facility] Utilities Answer Date Recorded In the [...] any time in the past 12 m [facility], were you homeless or living in a correction (including now)? No 04/08/2025 Comments Unknown Sex [...] (1 of 3 - 19+ 3-dose series) 12/03/2007 Pneumococcal Vaccine: Pediat frandy (0-5 Years) and At-Risk Patients (6 to 49 Years) (1 of 2 - PCV) 12/03/2007 Pap Smear (Ages 21-65) 2009 Influenza Vaccine 01/31/2025 COVID-19 Vaccine ( season) 2025 HIV Screening Completed 04/08/2025 Hepatitis C Virus Screening Completed 04/08/2025, 1 HPV Vaccines (No Doses Required) Completed Procedures [...] 2:05 PM EDT VANCOMYCIN LEVEL-RANDOM Timed 04/08/20 2:05 PM EDT HEPATITIS C VIRAL LOAD, QUANTITATIVE Routine 04/08/2025 8:49 AM EDT HEPATITIS PANEL, [...] resultswithin the time period is included. Pathologist [facility] Ventricular rate 64 BPM EKG [facility] Atrial rate 64 BPM EKG [facility] P-R interval 136 ms EKG [facility] QRS duration 84 ms EKG [facility] Q-T interval 428 ms EKG [facility] QTC calculation (Bazett) 442 ms EKG [facility] P axis 52 degrees EKG [facility] R axis 72 degrees EKG [facility] T axis 68 degrees [facility] 04/14/2025 10:1 3 AM EDT Narrative EKG [facility] - 04/14/2025 1:09 PM EDT Normal [...] Arabella Avalos PA-C ECG ORDERABLES Final Result [facility] * (ABNORMAL) Complete Blood Count, WITHOUT Differential (routine) (04/14/2025 4:05 AM EDT) Only the most recent of13 resultswithin the time period is included. White Blood Cell Count 13.7(H) 4.0 - 11.0 Thou/uL 04/14/2025 4:53 AM [facility] Platelet Count 616(H) 150 - 450 Thou/uL 04/14/2025 4:53 AM [facility] Hemoglobin 7.3(L) 11.7 - 15.7 g/dL 04/14/2025 4:53 AM [facility] Hematocrit 23.3(L) 35.0 - 47.0 % 04/14/2025 4:53 AM [facility] Red Blood Cell Count 2.68(L) 4.00 - 5.40 Mil/uL 04/14/2025 4:53 AM [facility] MCV 87 80 - 100 fL 04/14/2025 4:53 AM [facility] MCH 27.2 26.0 - 34.0 pg 04/14/2025 4:53 AM [facility] MCHC 31.3 30.0 - 36.0 g/dL 04/14/2025 4:53 AM [facility] RDW 17.9(H) 11.5 - 14.5 % 04/14/2025 4:53 AM [facility] MPV 9.8 7.5 - 12.5 fL 04/14/2025 4:53 AM [facility] nRBC 0.4(H) 0.0 - 0.1 /100 WBC 04/14/2025 4:53 AM [facility] nRBC, Absolute 0.05(H) 0.00 - 0.02 Thou/uL 04/14/2025 4:53 AM [facility] Blood Blood specimen / Unknown 04/14/2025 4:05 AM EDT 04/14/2025 4:35 AM EDT us Lucho Donaldson MD LAB BLOOD ORDERABLES Final Re sult [address] [address], [address] [address] * (ABNORMAL) Phosphorus (04/14/2025 4:05 AM EDT) Only the most recent of11 resultswithin the time period is included. Phosphorus 2.5(L) 2.7 - 4.5 mg/dL 04/14/2025 5:06 AM EDT [facility] Blood Blood specimen / Unknown 04/14/2025 4:05 AM EDT 04/14/2025 4:35 AM EDT us Lucho Donaldson MD LAB BLOOD ORDERABLES Final Re sult Performing Organization Address City/[facility] [place] [address], [place] [address] * Magnesium (04/14/2025 4:05 AM EDT) Only the most recent of11 resultswithin the time period is included. Magnesium 1.9 1.6 - 2.7 mg/dL 04/14/2025 5:06 AM EDT [facility] Blood Blood specimen / Unknown 04/14/2025 4:05 AM EDT 04/14/2025 4:35 AM EDT us Lucho Donaldson MD LAB BLOOD ORDERABLES Final Re sult Performing Organization Address [facility] [place] [address], [place] [address] * (ABNORMAL) Basic Metabolic Panel (04/14/2025 4:05 AM EDT) Only the most recent of11 resultswithin the time period is included. Glucose 111(H) 65 - 99 mg/dL 04/14/2025 5:06 AM EDT [facility] Comment:Fasting: <100 mg/dL, Non-Fasting: <200 mg/dL (ADA 2005) Blood Urea Nitrogen (BUN) 11 8 - 21 mg/dL 04/14/2025 5:06 AM EDT [facility] Creatinine 0.74 0.40 - 1.10 mg/dL 04/14/2025 5:06 AM EDT [facility] eGFR >90 >59 04/14/2025 5:06 AM EDT [facility] Comment:CKD-EPI (2020) in mL /min/1.73 sq meters. Sodium 137 136 - 145 mmol/L 04/14/2025 5:06 AM EDT [facility] Potassium 3.4 3.4 - 5.3 mmol/L 04/14/2025 5:06 AM [facility] Chloride 104 98 - 107 mmol/L 04/14/2025 5:06 AM EDT [facility] CO2 26 22 - 33 mmol/L 04/14/2025 5:06 AM T [facility] Anion Gap 7 7 - 17 04/14/2025 5:06 AM [facility] Calcium 7.3(L) 8.7 - 10.5 mg/dL 04/14/2025 5:06 AM [facility] BUN/Creatinine Ratio 15 10.0 - 25.0 Ratio 04/14/2025 5:06 AM [facility] Blood Blood specimen / Unknown 04/14/2025 4:05 AM EDT 04/14/2025 4:35 AM EDT us Lucho Donaldson MD LAB BLOOD ORDERABLES Final Re sult Performing Organization Address [facility] de Phone Number [address] [address], [address] [address] * Vancomycin Level, Random (04/13/2025 7:00 AM EDT) Only the most recent of2 resultswithin the time period is included. Vancomycin, Random 20 mg/L 04/13/2025 8:15 AM EDT [facility] Comment:No reference range e stablished for random levels. Time of Last Dose Information not given 04/13/2025 6:22 AM T [facility] Blood Blood specimen / Unknown 04/13/2025 7:00 AM EDT 04/13/2025 7:41 AM EDT us Lucho Donaldson MD LAB BLOOD ORDERABLES Final Re sult [facility] [address] [place] [address], [facility] [address] [place] [address] * XR Abdomen 1 view (04/11/2025 12:15 [...] resultswithin the time period is included. Daniel Palacios PA-C BLOOD TRANSFUSION ORDERA BLES Final Result * (ABNORMAL) Thromboelastograph (TEG) (04/11/2025 2:18 AM EDT) Only the most recent of2 resultswithin the time period is included. Reaction Time 5.1 5 - 10 minutes 04/11/2025 4:07 AM [facility] Reaction Time,Heparinized 4.9(L) 5 - 10 minutes 04/11/2025 4:07 AM [facility] Fibrin Function 1.1 1 - 3 minutes 04/11/2025 4:07 AM [facility] Fibrin Function,Heparini zed 0.8(L) 1 - 3 minutes 04/11/2025 4:07 AM [facility] Angle 74.8(H) 53 - 72 degrees 04/11/2025 4:07 AM [facility] Angle, Heparinized 78.7(H) 53 - 72 degrees 04/11/2025 4:07 AM [facility] Max Amplitude 72.6(H) 50 - 70 mm 04/11/2025 4:07 AM [facility] Max Amplitude,Heparin ized 74.8(H) 50 - 70 mm 04/11/2025 4:07 AM [facility] %Lysis 30 min 0.0 0 - 8 % 04/11/2025 4:07 AM [facility] %Lysis 30 min,Heparinized 0.6 0 - 8 % 04/11/2025 4:07 AM [facility] Anticoagulant NO ANTI COAGULANT MEDS 04/11/2025 2:18 AM [facility] Blood Blood specimen / Unknown 04/11/2025 2:18 AM EDT 04/11/2025 2:28 AM EDT Daniel Palacios PA-C LAB BLOOD ORDERABLES Fin al Result [address] [address], [address] [address] * ECHOCARDIOGRAM COMPREHENSIVE (04/10/2025 8:56 AM EDT) [...] Units Ordered 1 04/10/2025 3:49 AM EDT [facility] 04/10/2025 3:50 AM EDT 04/10/2025 3:51 AM EDT Luda Houser APRN BLOOD BANK PRODUCT ORDERABLE S Final Result [address] [address], [address] [address] * Hemoglobin A1c with Estimated Average Glucose (Routine) (04/10/2025 12:06 AM EDT) Hemoglobin A1C 5.3 <5.7 % 04/10/2025 2:13 AM EDT [facility] Comment: A1c% Interpretation 5.7 - 6.0 Increase risk of diabetes 6.1 - 6.4 Higher risk of diabetes > or = 6.5 Consistent with diabetes Diabetes Care, 33(Supp 1):S1-S61, 2010 Estimated Average Glucose 105 mg/dL 04/10/2025 2:13 AM EDT [facility] Blood Blood specimen / Unknown 04/10/2025 12:06 AM EDT 04/10/2025 1:03 AM EDT Sophia Yarbrough MD LAB BLOOD ORDERABLES F inal Result Performing Organization Address City/[facility]/[place] [address], [place] [address] * (ABNORMAL) Calcium, Ionized (04/10/2025 12:06 AM EDT) Only the most recent of3 resultswithin the time period is included. Calcium, Ionized 1.11(L) 1.17 - 1.33 mmol/L 04/10/2025 1:08 AM EDT [facility] Blood Blood specimen / Unknown 04/10/2025 12:06 AM EDT 04/10/2025 1:03 AM EDT Luda Houser APRN LAB BLOOD ORDERABLES Final R esult Performing Organization Address [facility]/[place] [address], [place] [address] * CREATINE KINASE (CK) (04/09/2025 9:29 PM EDT) Only the most recent of5 resultswithin the time period is included. Creatine Kinase (CK) 123 24 - 173 U/L 04/09/2025 10:31 PM EDT [facility] Blood Blood specimen / Unknown 04/09/2025 9:29 PM EDT 04/09/2025 10:07 PM EDT Ani Bolaños Kevin HDZ LAB BLOOD ORDERABLES Fin al Result Performing Organization Address [facility] [place] [address], [place] [address] * LACTIC ACID, PLASMA (04/09/2025 5:20 PM EDT) Only the most recent of2 resultswithin the time period is included. Lactic Acid 1.4 0.5 - 1.9 mmol/L 04/09/2025 6:25 PM EDT [facility] Blood Blood specimen / Unknown 04/09/2025 5:20 PM EDT 04/09/2025 5:53 PM EDT Sophia Yarbrough MD LAB BLOOD ORDERABLES F inal Result Performing Organization Address [facility] [place] [address], [place] [address] * Transfuse Fresh Frozen Plasma: (04/09/2025 4:36 PM EDT) Олег Vasquez DO BLOOD TRANSFUSION ORDERABLES Final Result * Prepare Fresh Frozen Plasma:Prepare in: Units; Number of Units: 1; Transfusion Indications: aPTT greater than upper limit of normal (04/09/2025 4:07 PM EDT) Units Ordered 1 04/09/2025 4:07 PM EDT [facility] Unit Number [id number] 04/09/2025 4:15 PM EDT [facility] Blood Component Type THAWED PLASMA 04/09/2025 4:15 PM EDT [facility] Unit Division 00 04/09/2025 4:15 PM EDT [facility] Unit Status ISSUED,FINAL 04/10/2025 12:32 AM EDT [facility] Transfusion Status OK TO TRANSFUSE 04/09/2025 4:15 PM EDT [facility] 04/09/2025 4:07 PM EDT 04/09/2025 4:14 PM EDT us Олег Vasquez DO BLOOD BANK PRODUCT ORDERABLE S Final Result HOSPITAL LAB See Below [facility] [address] [place] [address] * Blood Culture (04/09/2025 11:10 AM EDT) Only the most recent of2 resultswithin the time period is included. Culture Sterile after 5 days 04/14/2025 7:08 AM EDT [facility] Blood Blood specimen / Unknown 04/09/2025 11:10 AM EDT 04/09/2025 12:05 PM EDT Comment:Blood us Anisa Perez MD LAB BLOOD ORDERABLES Final Resu lt [facility] [address] [place] [address], [place] * Type and Screen (04/09/2025 10:20 AM EDT) ABO/Rh A POSITIVE 04/09/2025 12:20 PM EDT [facility] Antibody Screen NEGATIVE 04/09/2025 12:20 PM EDT [facility] Specimen Expiration 04/12/2025 04/09/2025 12:20 PM EDT [facility] Blood Bank Comment Second Sample needed for Blood Transfusion 04/09/2025 12:20 PM EDT [facility] Unit Number [id number] 04/09/2025 2:44 PM EDT [facility] Blood Component Type LEUKOREDUCED RED CELLS 04/09/2025 2:44 PM EDT [facility] Unit Division 00 04/09/2025 2:44 PM EDT [facility] Unit Status ISSUED,FINAL 04/10/2025 12:32 AM EDT [facility] Transfusion Status OK TO TRANSFUSE 04/09/2025 2:44 PM EDT [facility] Crossmatch Result Electronically Compatible 04/09/2025 2:44 PM EDT [facility] Unit Number [id number] 04/09/2025 2:44 PM EDT [facility] Blood Component Type LEUKOREDUCED RED CELLS 04/09/2025 2:44 PM EDT [facility] Unit Division 00 04/09/2025 2:44 PM EDT [facility] Unit Status ISSUED,FINAL 04/10/2025 12:32 AM EDT [facility] Transfusion Status OK TO TRANSFUSE 04/09/2025 2:44 PM EDT [facility] Crossmatch Result Electronically Compatible 04/09/2025 2:44 PM EDT [facility] Unit Number [id number] 04/09/2025 4:17 PM EDT [facility] Blood Component Type LEUKOREDUCED RED CELLS 04/09/2025 4:17 PM EDT [facility] Unit Division 00 04/09/2025 4:17 PM EDT [facility] Unit Status ISSUED,FINAL 04/10/2025 12:32 AM EDT [facility] Transfusion Status OK TO TRANSFUSE 04/09/2025 4:17 PM EDT [facility] Crossmatch Result Electronically Compatible 04/09/2025 4:17 PM EDT [facility] Unit Number [id number] 04/09/2025 4:17 PM T [facility] Blood Component Type LEUKOREDUCED RED CELLS 04/09/2025 4:17 PM EDT [facility] Unit Division 00 04/09/2025 4:17 PM EDT [facility] Unit Status ISSUED,FINAL 04/11/2025 12:30 AM EDT [facility] Transfusion Status OK TO TRANSFUSE 04/09/2025 4:17 PM EDT [facility] Crossmatch Result Electronically Compatible 04/09/2025 4:17 PM EDT [facility] Unit Number [id number] 04/11/2025 1:43 AM T [facility] Blood Component Type LEUKOREDUCED RED CELLS 04/11/2025 1:43 AM EDT [facility] Unit Division 00 04/11/2025 1:43 AM EDT [facility] Unit Status ISSUED,FINAL 04/12/2025 12:17 AM EDT [facility] Transfusion Status OK TO TRANSFUSE 04/11/2025 1:43 AM EDT [facility] Crossmatch Result Electronically Compatible 04/11/2025 1:43 AM EDT [facility] Blood Blood specimen / Unknown 04/09/2025 10:20 AM EDT 04/09/2025 11:11 AM EDT Comment:Blood Sophia Yarbrough MD BLOOD BANK TEST ORDERA BLES Final Result Performing Organization Address [facility] Healthcare/ZIP Co de Phone Number [place] [address] * ABO Confirmation (04/09/2025 3:24 AM EDT) ABO/Rh A POSITIVE 04/09/2025 2:25 PM EDT [facility] Blood specimen / Unknown 04/09/2025 3:24 AM EDT 04/09/2025 1:21 PM EDT Generic Provider BLOOD BANK TEST ORDERABLES Nurys l Result Performing Organization Address [facility] Co de Phone Number [address] [address], [address] [address] * CT Upper extremity with contrast-Bilateral (04/08/2025 [...] right lateral abdominal wall. Ani Morelchandler Brown CLAY WORKER IMG CT ORDERABLES Edited Result - Final [...] is unremarkable. BLADDER: Decompressed with contrast and Ylnch catheter, limiting evaluation. PELVIC VISCERA: Unremarkable. OSSEOUS [...] IJ central venous catheter tip beyond the [id number]. The visualized orbits and paranasal air sinuses [...] IJ central venous catheter tip beyond the [id number]-sm-[id number]. The visualized orbits and paranasal air sinuses [...] chest wall abscess/soft tissue infection. Ani Brown CLAY WORKER IMG CT ORDERABLES Final Result * CT [...] especially along the right lateral abdominal wall. Aniaaron Morelchandler Brown CLAY WORKER IMG CT ORDERABLES Edited Result - Final [...] stool burden. Interpreted by: Emilee Casas MD Labeling Strategist I personally reviewed the images and the [...] stool burden. Interpreted by: Emilee Casas MD Labeling Strategist I personally reviewed the images and the resident's preliminary report and AGREE with the report as it is now presented ([id number]). Ani Brown APRN IMG DIAGNOSTIC IMAGING O RDERABLES Final Result * (ABNORMAL) Triglycerides (04/08/2025 9:15 PM EDT) Triglycerides 234(H) <150 mg/dL 04/08/2025 10:46 PM EDT [facility] Blood Blood specimen / Unknown 04/08/2025 9:15 PM EDT 04/08/2025 10:05 PM EDT Ani Brown CLAY WORKER LAB BLOOD ORDERABLES Fin al Result [address] [address], [address] [address] * ANES INTUBATION (04/08/2025 8:22 PM EDT) Only the most recent of2 resultswithin the time period is included. Narrative Sharron Marcial CRNA - 04/08/2025 8:22 PM EDT Sharron Marcial CRNA 04/08/2025 8:23 PM Anesthesia Procedure Note - Elective intubation Patient Name: oMlly Beasley : 1990 Patient location: [place] Procedure indications: airway protection Procedure diagnosis: Anesthesia Performed by: Resident/LAN ENGINEER MD Sharron Marley CRNA Chart Verification Airway: [...] Complications: no complications us Cuauhtemoc Collins MD [place] ANESTHESIA Final Result * (ABNORMAL) Erythrocyte Sedimentation Rate (ESR) (04/08/2025 2:05 PM EDT) Erythrocyte Sediment Rate (ESR) 27(H) <20 MM/HR 04/08/2025 3:47 PM EDT [facility] Blood Blood specimen / Unknown 04/08/2025 2:05 PM EDT 04/08/2025 3:16 PM EDT us Anisa Perez MD LAB BLOOD ORDERABLES Final Resu lt Performing Organization Address [facility] Co de Phone Number [address] [address], [address] [address] * (ABNORMAL) C-REACTIVE PROTEIN (04/08/2025 2:05 PM EDT) C-Reactive Protein 11.38(H) 0 - 0.49 mg/dL 04/08/2025 4:11 PM EDT [facility] Blood Blood specimen / Unknown 04/08/2025 2:05 PM EDT 04/08/2025 3:16 PM EDT us Anisa Perez MD LAB BLOOD ORDERABLES Final Resu lt [facility] [address] [place] [address], [address] [address] * Hepatitis C Viral Load, Quantitative (04/08/2025 8:49 AM EDT) HCV RNA (IU/mL) Not Detected <10 IU/mL 04/16/2025 5:31 PM EDT [facility] HCV RNA (log10) Not Detected <1.00 log10 IU/mL 04/16/2025 5:31 PM EDT [facility] Interpretation Not Detected 04/16/20 5:31 PM EDT [facility] Comment:Performed by FDA amarilis roved Red Guru TMA. Linear range is 10 to 100,000,000 IU/mL. HCV Genotyping is not recommended for viral loads below 300 IU/mL. 04/08/2025 8:49 AM EDT 04/08/2025 9:29 AM EDT Comment:Serum~Plasma Daisy Galdamez PA-C LAB BLOOD ORDERABLES Final Re sult Performing Organization Address City/[facility]/ZIP Co de Phone Number [facility] [address] [place] [address], * HIV 1/2 Ag/Ab CMIA Reflex to Confirmation (04/08/2025 8:49 AM EDT) Pathologist [facility] HIV 1/2 Ag/Ab CMIA Nonreactive Nonreactive 04/09/2025 12:07 PM EDT [facility] Comment: Results show no [...] ORDERABLES Final Re sult Performing Organization Address City/[facility]/ZIP Co de Phone Number [facility] [address] [place] [address], [place] * (ABNORMAL) Hepatitis Panel, Acute (04/08/2025 8:49 AM EDT) Hepatitis A Antibody IgM Nonreactive Nonreactive 04/09/2025 12:07 PM EDT [facility] Hepatitis B Core Antibody IgM Nonreactive Nonreactive 04/09/2025 12:07 PM EDT [facility] Hepatitis B Surface Ag Screen Nonreactive Nonreactive 04/09/2025 12:07 PM EDT [facility] Hepatitis C Antibody Reactive(A) Nonreactive 04/09/2025 12:07 PM EDT [facility] Comment:Presumptive evidence of antibodies to HCV. Hepatitis C Viral Load, Quantitative results to follow. Hepatitis Interpretation: These results indicate Hepatitis C infection. 04/09/2025 12:07 PM EDT [facility] Blood Blood specimen / Unknown 04/08/2025 8:49 AM EDT 04/08/2025 9:29 AM EDT Comment:Serum~Plasma us Daisy Galdamez PA-C LAB BLOOD ORDERABLES Final Re sult Performing Organization Address [facility] Co de Phone Number [facility] [address] [place] [address], [place] * Fungal Culture (non-blood) (04/07/2025 3:47 PM EDT) Culture No fungus isolated 04/22/2025 8:07 AM EDT [facility] Tissue (Arm, Upper right) 04/07/2025 3:47 PM EDT us Db Lynn MD MICROBIOLOGY - GENERAL OR DERABLES Final Result Performing Organization Address [facility] Co de Phone Number [facility] [address] [place] [address], [place] * (ABNORMAL) Tissue Culture (aerobic, anaerobic + Gram stain) (04/07/2025 3:47 PM EDT) Gram stain suggestive of Many neutrophils Red blood cells Gram positive cocci 04/07/2025 10:06 PM EDT [facility] Culture Methicillin Resistant Staph aureus (MRSA)(A) 04/14/2025 9:39 AM EDT [facility] Culture No anaerobes isolated after 7 days 04/14/2025 9:39 AM EDT [facility] Tissue (Arm, Upper [...] MICROBIOLOGY - GENERAL OR DERABLES Final Result [facility] [address] [place] [address], * Central Line / PA Cath (04/07/2025 [...] entire length intact and undamaged No complications Juan J Hagan MD [place] ANESTHESIA Final Result * (ABNORMAL) Aerobic culture (Gram stain included) (04/07/2025 3:02 PM EDT) Only the most recent of2 resultswithin the time period is included. Gram stain suggestive of Many neutrophils Few squamous cells Red blood cells Gram positive cocci 04/07/2025 5:53 PM EDT [facility] Culture Methicillin Resistant Staph aureus (MRSA) Susceptibility of the same isolate identification, from the same apparent body site is only performed once per 5 calendar days. See susceptibilities reported on specimen collected 04/07/2025 (A) 04/09/2025 1:12 PM EDT [facility] Aspirate, Abscess (Arm, Upper right) 04/07/2025 3:02 PM EDT Db Lynn MD MICROBIOLOGY - GENERAL OR DERABLES Final Result [facility] [address] [place] [address], [address] [address] * Anaerobic Culture (04/07/2025 3:02 PM EDT) Culture No anaerobes isolated after 7 days 04/14/2025 9:39 AM EDT [facility] Aspirate, Abscess (Arm, Upper right) 04/07/2025 3:02 PM EDT Db Lynn MD MICROBIOLOGY - GENERAL OR DERABLES Final Result [facility] [address] [place] [address], [place] * (ABNORMAL) POCT , Urine (04/07/2025 2:14 PM EDT) Preg Test, Ur Negative Negative Lot Number [id number] Best Worker Pass Pass Urine 04/07/2025 2:14 PM EDT [...] resultswithin the time period is included. Narrative POWELL - 04/07/2025 6:51 AM EDT This order has been auto-finalized and does not contain a result. us File Room Provider IMG DIGITIZE FILMS Final Resu lt Performing Organization Address [facility] Phone Number [place] [phone] * CT Extremity Left Archive for Reference Only (04/07/2025 6:52 AM EDT) Only the most recent of6 resultswithin the time period is included. Narrative POWELL - 04/07/2025 6:52 AM EDT This study has been auto finalized and does not contain a result. us File Room Provider IMG DIGITIZE FILMS Final Resu lt Performing Organization Address [facility] Phone Number [place] [phone] * CR Extremity Right Archive for Reference only (04/07/2025 6:52 AM EDT) Only the most recent of2 resultswithin the time period is included. Narrative POWELL - 04/07/2025 6:52 AM EDT This study has been auto finalized and does not contain a result. us File Room Provider IMG DIGITIZE FILMS Final Resu lt Performing Organization Address [facility] de Phone Number P[facility] [phone] * CT Extremity Right Archive for Reference Only (04/07/2025 6:52 AM EDT) Only the most recent of6 resultswithin the time period is included. Narrative POWELL - 04/07/2025 6:52 AM EDT This study has been auto finalized and does not contain a result. us File Room Provider IMG DIGITIZE FILMS Final Resu lt Performing Organization Address [facility] de Phone Number [facility] [phone] * CR Chest Archive for Reference only (04/07/2025 6:51 AM EDT) Only the most recent of2 resultswithin the time period is included. Narrative LENNOX - 04/07/2025 6:51 AM EDT This study has been auto finalized and does not contain a result. us File Room Provider IMG DIGITIZE FILMS Final Resu lt [place] [phone] * CT Upper extremity with contrast-Right (04/07/2025 [...] technique DLP: 1068 mGy-cm FINDINGS The large xeyte-[id number] and positioning limits evaluation. Subcutaneous soft tissues: [...] technique DLP: 1068 mGy-cm FINDINGS The large zyjpc-[id number] and positioning limits evaluation. Subcutaneous soft tissues: [...] lower lobe consolidation and right pleural effusion. [facility] Myriam De La Fuente PA-C IM CT ORDERABLES Final Result from Last 3 Months Insurance [facility] Advance Directives * Full Code (Latest Code Status on File) Date Activated Date Inactivated Comments 04/07/2025 6:11 PM * Full Code Date Activated Date Inactivated Comments 04/06/2025 10:29 PM 04/07/2025 6:11 PM Care Teams Risk Lead Relationship Specialty Start Date End Date System, Provider Not In PCP - General 04/09/25
== END 2025-05-07 14:44 | disposition home or self-care (01) ==
LOC: HO.HID 14:13
PROVIDERS: PCP Physician Assistant; Visit Provider Internal Medicine
DX: R78.81 Bacteremia (principal); B95.62 Methicillin resistant Staphylococcus aureus infection as the cause of diseases classified elsewhere; B19.20 Unspecified viral hepatitis C without hepatic coma
CPT/HCPCS: 99214

== ENCOUNTER 2025-05-07 14:13 | Outpatient (REF) | payer MEDICAID, SELFPAY ==
[2025-05-07 15:35] LABS: MANUAL DIFF FLAG NO
[2025-05-07 15:57] LABS: Hematocrit 32.7 % (37.0-47.0); Hemoglobin 10.3 g/dl (12.0-16.0); Imm Gran Abs Auto 0.02 X10*3/uL (0.00-0.03); Imm Gran Pct Auto 0.4 % (0.0-0.4); Lymphocytes Absolute Auto 1.9 X10*3/uL (1.2-4.9); Mean Corpuscular HGB Conc 31.5 g/dl (31.0-35.0); Mean Corpuscular Hemoglobin 27.2 pg (27.0-33.0); Mean Corpuscular Volume 86.3 fL (80.0-98.0); NRBC Abs Auto 0.000 X10*3/uL (0.0-0.012); NRBC Pct Auto 0.0 /100WBC (0.0-0.2); Platelet Count 285 X10*3/uL (160-400); Red Blood Count 3.79 X10*6/uL (4.20-5.50); White Blood Count 5.6 X10*3/uL (4.8-10.8)
[2025-05-07 16:17] LABS: INTERNATIONAL NORM RATIO 1.0 (0.9-1.1); Prothrombin Time 12.0 SEC (11.2-13.5)
[2025-05-07 16:35] LABS: Alanine Aminotransferase 15 U/L (0-31); Albumin Level 3.9 g/dL (3.5-5.0); Alkaline Phosphatase 84 U/L (39-117); Aspartate Amino Transferase 7 U/L (5-31); Estimated Glomerular Filt Rate > 60; Total Protein 7.1 g/dL (6.5-8.0)
[2025-05-08 16:48] LABS: HCV Log PCR <1.18 NOT DETECTED Log IU/mL (NOT DETECTED); HepC Viral Load <15 NOT DETECTED IU/mL (NOT DETECTED)
[2025-05-15 10:29] LABS: FIB-ALT 11 U/L (6-29); FIB-Alpha-2-Macroglobulin 208 mg/dL (106-279); FIB-Apolipoprotein A1 158 mg/dL (101-198); FIB-GGT 14 U/L (3-50); FIB-Haptoglobin 151 mg/dL (43-212); FIB-Total Bilirubin 0.1 mg/dL (0.2-1.2); Liver Fibrosis Score 0.03; Liver Fibrosis Stage F0; Nec Inflam Act Grade A0; Nec Inflam Act Score 0.02
== END 2025-05-07 14:14 | disposition home or self-care (01) ==
LOC: HO.LAB 14:13
PROVIDERS: PCP Physician Assistant; Visit Provider Internal Medicine
DX: R78.81 Bacteremia (principal); B95.62 Methicillin resistant Staphylococcus aureus infection as the cause of diseases classified elsewhere; B19.20 Unspecified viral hepatitis C without hepatic coma
CPT/HCPCS: 36415; 80076; 81596; 82565; 85025; 85610; 87040; 87522; 87902; 99212

== ENCOUNTER 2025-05-12 14:38 | Outpatient (REF) | payer MEDICAID, SELFPAY ==
--- NOTE | ~2025-05-12 | IR_ITS ---
EXAMINATION: Removal of Jara catheter. CLINICAL INDICATION. Antibiotics not needed hence removal of permacatheter. FINDINGS: The area of left upper chest into side of Jara catheter was cleaned and draped in usual sterile manner after removing the dressing. Gentle tug was utilized to remove the catheter. . The catheter could not be pulled. 1 percent lidocaine was injected around the catheter and along the incision site deep to the where the catheter cuff was felt. A blunt dissector was inserted through the skin incision deep to the level of catheter cuff, cuff was loosened and the entire catheter was gently pulled out. There was no immediate bleeding. After cleaning the area sterile dressing applied post procedure. Patient tolerated well procedure extremely well. 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 Electronically signed by: Sudarshan Kilgore MD 05/13/2025 10:08 AM ARYA
== END 2025-05-12 14:39 | disposition home or self-care (01) ==
LOC: HO.RADIR 14:38
PROVIDERS: Visit Provider Internal Medicine
DX: R78.81 Bacteremia (principal); B95.62 Methicillin resistant Staphylococcus aureus infection as the cause of diseases classified elsewhere
CPT/HCPCS: 36589; J2003

== ENCOUNTER → 2025-05-12 14:41 | Outpatient (BNV) | payer MEDICAID, SELFPAY | PROVIDERS: Visit Provider Radiology Diagnostic Radiology | DX: R78.81 Bacteremia (principal); Z45.2 Encounter for adjustment and management of vascular access device | CPT/HCPCS: 36589 ==

== ENCOUNTER → 2025-06-09 10:42 | Outpatient (BNVA) | payer MEDICAID, SELFPAY | PROVIDERS: PCP Physician Assistant; Visit Provider Surgery | DX: Z48.02 Encounter for removal of sutures (principal) | CPT/HCPCS: 99211 ==